=== PATIENT | male | born 1940 | race Caucasian/White ===

== ENCOUNTER → 2016-10-12 | Day surgery (SDC) | payer BC ==
[2016-10-07 14:03] VITALS: Ht 182.9 cm; Wt 60.9 kg
[~2016-10-12] VITALS: Ht 182.9 cm; Wt 60.9 kg
[~2016-10-12] MED LIST: 500ML BSS 0.3ML EPI 1:1000PF IRRIG ONE; ACETAMINOPHEN 325 MG TAB PO PRN; AMLO-110 PO; AMVISC PLUS 0.8ML SYRINGE INT OCU ONE; ASPI81TA28 PO; ATEN-173 PO; ATOR-22 PO; ATROPINE SULFATE 0.1 MG/ML 5ML SYR IV PRN; AcetaZOLAMIDE 250 MG TAB PO SCH; BETAXOLOL HCL 0.25% OP SUSP PER DROP CHARGE OPL SCH; BRIMONIDINE TART 0.2% OP SOLN PER DROP CHARGE ONE; BSS FLUSH ONE; CHOL100010 PO; CYAN100020 PO; ENDOCOAT 0.85ML SYRINGE INT OCU ONE; EpHEDrine SULFATE INJ 50 MG/ML AMP IV PRN; EpINEphrine INJ 1MG/ML AMP 1 MG/ML AMP ONE; FENTANYL CITRATE INJ 50 MCG/1 ML 2 ML VIAL IV PRN; FLUMAZENIL 0.1 MG/1 ML 10 ML VIAL IV PRN; GABA-113 PO; GARL10007 PO; HYDR-4079 PO; HYDROmorphone INJ 2 MG/ML SYR/VIAL IV PRN; KRIL1000 PO; LABETALOL HCL IV 5 MG/ML 20ML IV PRN; LACTATED RINGER'S 1000ML 500 ML IV SCH; LIDOCAINE 4% OP SOLN DROP CHARGE ONE; LIDOCAINE 4% OP SOLN DROP CHARGE OPL SCH; LIDOCAINE HCL 1% MPF 2 ML VIAL ONE; MEPERIDINE HCL 25 MG/ML CARP IV PRN; MIDAZOLAM HCL 1 MG/ML 2ML VIAL ONE; MIX: 4ML BSS 1ML EPI 1:1000 PF INSTIL ONE; MOXIFLOXACIN OPH SOLN PER DROP CHARGE ONE; NALOXONE HCL 0.4 MG/1 ML VIAL/CARP IV PRN; NURSING VERBAL MED ORDER ONE; OCUCOAT 1 ML SOLN IO ONE; OMEP40CA PO; ONDANSETRON INJ 2 MG/ML 2 ML VIAL IV PRN; OXYC-106 PO; PHENYLEPHRINE 100MCG/ML 5ML SYR IV PRN; POVIDONE-IODINE OP SOLN 30 ML BTL ONE; PRDFOPS/10 OPL; PROPARACAINE 0.5% OP SOLN PER DROP CHARGE OPL SCH; SIMV40TA2 PO; TOBRAMYCIN/DEXAMETHASONE OPH OINT PER APPLN CHARGE ONE
--- NOTE | 2016-10-12 08:21 | History & Physical Bridge - [place] ---
H&P Re-Evaluation Bridge Note: I have examined the patient, reviewed the History & Physical and in the interval since the performance of the History & Physical I have noted the following changes of clinical significance: No changes noted
[2016-10-12] MEDS: PHENYLEPHRINE HCL 2.5% OP SOLN PER DROP CHARGE OPL SCH ×2 (09:25→09:30)
[2016-10-12] MEDS: TROPICAMIDE 1% OP SOLN PER DROP CHARGE OPL SCH ×2 (09:26→09:31)
[2016-10-12] MEDS: CYCLOPENTOLATE HCL 1% OP SOLN PER DROP CHARGE OPL SCH ×2 (09:27→09:32)
[2016-10-12] MEDS: MOXIFLOXACIN OPH SOLN PER DROP CHARGE OPL SCH ×2 (09:28→09:38)
--- NOTE | 2016-10-12 10:46 | Discharge Instructions-SurgCtr ---
Discharge Instructions Visit Reason for Visit: Cataract Left Eye Discharge Discharge Diagnosis / Problem: Lens Implant Left Eye Discharge Goals Goal(s): Improve function Activity Recommendations Activity Limitations: resume your previous activity Lifting Limitations: no more than 10 pounds Exercise/Sports Limitations: gradually increase as tolerated May Resume Sexual Activity: when tolerated Shower/Bathe: tomorrow Driving or Machine Use: resume 1 day after discharge Anesthesia . Post Anesthesia Instructions: If you have had General Anesthesia or IV Sedation: * Do not drive today. * Resume driving when surgeon permits. * Do not make important decisions or sign legal documents today. * Call surgeon for: 1. Temperature elevations greater than 101 degrees F. 2. Uncontrollable pain. 3. Excessive bleeding. 4. Persistent nausea and vomiting. 5. Medication intolerance (nausea, vomiting or rash). * For nausea and vomiting use only clear liquids such as: tea, soda, bouillon until nausea subsides, then gradually increase diet as tolerated. * If you have any concerns or questions, call your surgeon's office. If physician is unavailable and it is an emergency, call 911 or go to the nearest emergency room. . Instructions / Follow-Up Instructions / Follow-Up ACTIVITY RECOMMENDATIONS: * Light activities. * Mild irritation and blurred vision are common for the first few days. * You may walk outside, read, watch television. * Redness around the white part of the eye is common. MEDICATIONS: Resume previous medications unless instructed otherwise by your surgeon. * Take white Diamox (Acetazolamide) tablet at 1 pm today. Start all eye drops at 1 pm today: * Eye drops (today and tomorrow): Prednisone - one drop in operative eye every 3 hours while awake Ofloxacin - one drop in operative eye every 3 hours while awake SPECIAL CARE INSTRUCTIONS: * Tape plastic shield over eye to sleep at night. Call your doctor at with any concerns or problems. FOLLOW UP VISIT: Follow-up with Dr Bennett at [place] office as scheduled. Diet Recommendations Home Diet: no limitations Pending Studies Studies pending at discharge: no Medical Emergencies . Who to Call and When: Medical Emergencies: If at any time you feel your situation is an emergency, please call 911 immediately. . Non-Emergent Contact Non-Emergency issues call your: Conflict Resolution Professional Call Non-Emergent contact if: your pain is not controlled [phone] . . "Provider Documentation" section prepared by Antonio Bennett.
--- NOTE | 2016-10-12 10:48 | [facility] Operative Report ---
Operative Report 1. PREOPERATIVE DIAGNOSIS: Senile nuclear cataract, left eye. 2. POSTOPERATIVE DIAGNOSIS: Senile nuclear cataract, left eye. 3. PROCEDURE: Phacoemulsification of left cataract with posterior chamber lens implant, type Bausch [employer] Lomb, model [id number] Restor, power +20.5 diopters. ANESTHESIA: Local standby. SURGEON: Dr. Bennett. COMPLICATIONS: None. OPERATING TIME: 10 minutes. 4. OPERATION AND FINDINGS: DESCRIPTION OF PROCEDURE: The left pupil was dilated. The anesthetic was administered using a topical technique. The left eye was prepped and draped. A speculum was placed. A clear corneal incision was formed. The chamber was filled with Amvisc Plus and Endocoat. Epinephrine solution was used. A paracentesis was placed. A capsulorrhexis was performed. The nucleus was hydrodissected. The lens was removed with phacoemulsification. Time was 4.17 seconds. The aspiration unit was used to remove the cortex. The capsule was filled with Amvisc Plus. The lens implant was folded and placed into the capsule. The incision was hydrated. The Amvisc was aspirated. The wound was secure. The chamber was deep. The pupil was round. TobraDex ointment and Vigamox solution were placed. The speculum was removed. The patient was returned to the Recovery Room in stable condition. I attest to the content of the Intraoperative Record and any orders documented therein. Any exceptions are noted below. The scribe's documentation has been prepared in my presence, under my direction and personally reviewed by me in its entirety. I confirm that the note above accurately reflects all work, treatment, procedures, and medical decision making performed by me. I personally scribed for Antonio Bennett M.D. ([email or web address]) on 10/12/16 at 10:48. Electronically submitted by Mariya Chavez ([email or web address]).
[2016-10-12 10:52] VITALS: TEMP 36.8
--- NOTE | 2016-10-12 11:08 | Anesthesia Progress Nt - [facility] ---
Anesthesia Post Op Note Date & Time Oct 12, 2016 at 11:07 Vital Signs Vital Signs Past 12 Hours Date Time Temp Pulse Resp B/P Pulse Ox O2 Delivery O2 Flow Rate FiO2 10/12/16 10:52 36.8 61 16 156/82 99 Room Air 10/12/16 09:18 36.5 58 20 128/67 96 Room Air Notes Mental Status: alert / awake / arousable, participated in evaluation Pt Amnestic to Procedure: Yes Nausea / Vomiting: adequately controlled Pain: adequately controlled Airway Patency, RR, SpO2: stable & adequate BP & HR: stable & adequate Hydration State: stable & adequate Anesthetic Complications: no major complications apparent
[2016-10-12 11:21] VITALS: BP 114/65; PULSE 56; O2SAT 95
== END | disposition home or self-care (01) ==
LOC: X.SURG 08:55
PROVIDERS: ATTEND Specialist
DX: H25.12 Age-related nuclear cataract, left eye (principal); J44.9 Chronic obstructive pulmonary disease, unspecified; I25.10 Atherosclerotic heart disease of native coronary artery without angina pectoris; I10 Essential (primary) hypertension

== ENCOUNTER → 2016-11-14 | Outpatient (CLI) | payer BC ==
[~2016-11-14] MED LIST changes: -500ML BSS 0.3ML EPI 1:1000PF IRRIG ONE; -ACETAMINOPHEN 325 MG TAB PO PRN; -AMVISC PLUS 0.8ML SYRINGE INT OCU ONE; -ATROPINE SULFATE 0.1 MG/ML 5ML SYR IV PRN; -AcetaZOLAMIDE 250 MG TAB PO SCH; -BETAXOLOL HCL 0.25% OP SUSP PER DROP CHARGE OPL SCH; -BRIMONIDINE TART 0.2% OP SOLN PER DROP CHARGE ONE; -BSS FLUSH ONE; -ENDOCOAT 0.85ML SYRINGE INT OCU ONE; -EpHEDrine SULFATE INJ 50 MG/ML AMP IV PRN; -EpINEphrine INJ 1MG/ML AMP 1 MG/ML AMP ONE; -FENTANYL CITRATE INJ 50 MCG/1 ML 2 ML VIAL IV PRN; -FLUMAZENIL 0.1 MG/1 ML 10 ML VIAL IV PRN; -HYDROmorphone INJ 2 MG/ML SYR/VIAL IV PRN; -LABETALOL HCL IV 5 MG/ML 20ML IV PRN; -LACTATED RINGER'S 1000ML 500 ML IV SCH; -LIDOCAINE 4% OP SOLN DROP CHARGE ONE; -LIDOCAINE 4% OP SOLN DROP CHARGE OPL SCH; -LIDOCAINE HCL 1% MPF 2 ML VIAL ONE; -MEPERIDINE HCL 25 MG/ML CARP IV PRN; -MIDAZOLAM HCL 1 MG/ML 2ML VIAL ONE; -MIX: 4ML BSS 1ML EPI 1:1000 PF INSTIL ONE; -MOXIFLOXACIN OPH SOLN PER DROP CHARGE ONE; -NALOXONE HCL 0.4 MG/1 ML VIAL/CARP IV PRN; -NURSING VERBAL MED ORDER ONE; -OCUCOAT 1 ML SOLN IO ONE; -ONDANSETRON INJ 2 MG/ML 2 ML VIAL IV PRN; -PHENYLEPHRINE 100MCG/ML 5ML SYR IV PRN; -POVIDONE-IODINE OP SOLN 30 ML BTL ONE; -PROPARACAINE 0.5% OP SOLN PER DROP CHARGE OPL SCH; -TOBRAMYCIN/DEXAMETHASONE OPH OINT PER APPLN CHARGE ONE
--- NOTE | 2016-11-14 10:25 | DIAGNOSTIC IMAGING REPORT ---
RENAL ULTRASOUND HISTORY: ANEMIA COMPARISON: None. FINDINGS: Right kidney: 11.4 cm no evidence for hydronephrosis Left kidney: 10.4 cm no evidence for hydronephrosis Bladder: No bladder wall thickening. The bilateral ureteral jets were identified. IMPRESSION: Normal renal ultrasound. Electronically signed by: Mike Dove M.D. 11/14/2016 10:23 AM Dictated Date/Time: 11/14/2016 10:16 AM
== END | disposition home or self-care (01) ==
LOC: C.ULTR 09:36
PROVIDERS: ATTEND Internal Medicine Hematology & Oncology
DX: D64.9 Anemia, unspecified (principal)

== ENCOUNTER → 2017-03-13 | Outpatient (CLI) | payer BC ==
[2017-03-13 12:27] LABS: BLOOD UREA NITROGEN 24 mg/dl (7-18); BUN/CREATININE RATIO 16.9 (10-20); CARBON DIOXIDE 25 mmol/L (21-32); CHLORIDE 107 mmol/L (98-107); GLUCOSE 102 mg/dl (70-99); POTASSIUM 4.2 mmol/L (3.5-5.1); SODIUM 140 mmol/L (136-145)
[2017-03-13 12:36] LABS: CALCIUM 9.1 mg/dl (8.5-10.1)
== END | disposition home or self-care (01) ==
LOC: C.LABBFT 09:33
PROVIDERS: ATTEND Internal Medicine Geriatric Medicine
DX: N18.9 Chronic kidney disease, unspecified (principal)

== ENCOUNTER → 2017-06-14 | Day surgery (SDC) | payer BC ==
[2017-06-13 08:32] VITALS: Ht 182.9 cm; Wt 60.9 kg
[~2017-06-14] VITALS: Ht 182.9 cm; Wt 60.9 kg
[~2017-06-14] MED LIST changes: +500ML BSS 0.3ML EPI 1:1000PF IRRIG ONE; +ACETAMINOPHEN 325 MG TAB PO PRN; +AMVISC PLUS 0.8ML SYRINGE INT OCU ONE; +ATROPINE SULFATE 0.1 MG/ML 5ML SYR IV PRN; +AcetaZOLAMIDE 250 MG TAB PO SCH; +BETAXOLOL HCL 0.25% OP SUSP PER DROP CHARGE OPR SCH; +BRIMONIDINE TART 0.2% OP SOLN PER DROP CHARGE ONE; +BSS FLUSH ONE; +ENDOCOAT 0.85ML SYRINGE INT OCU ONE; +EpHEDrine SULFATE INJ 50 MG/ML AMP IV PRN; +EpINEphrine INJ 1MG/ML AMP 1 MG/ML AMP ONE; +FENTANYL CITRATE INJ 50 MCG/1 ML 2 ML VIAL IV PRN; +FLUMAZENIL 0.1 MG/1 ML 10 ML VIAL IV PRN; +HYDROmorphone INJ 2 MG/ML SYR/VIAL IV PRN; +LABETALOL HCL IV 5 MG/ML 20ML IV PRN; +LACTATED RINGER'S 1000ML 500 ML IV SCH; +LIDOCAINE 4% OP SOLN DROP CHARGE ONE; +LIDOCAINE 4% OP SOLN DROP CHARGE OPR SCH; +LIDOCAINE HCL 1% MPF 2 ML VIAL ONE; +MEPERIDINE HCL 25 MG/ML CARP IV PRN; +MIDAZOLAM HCL 1 MG/ML 2ML VIAL ONE; +MIX: 4ML BSS 1ML EPI 1:1000 PF INSTIL ONE; +MOXIFLOXACIN OPH SOLN PER DROP CHARGE ONE; +NALOXONE HCL 0.4 MG/1 ML VIAL/CARP IV PRN; +OCUCOAT 1 ML SOLN IO ONE; +ONDANSETRON INJ 2 MG/ML 2 ML VIAL IV PRN; -OXYC-106 PO; +PHENYLEPHRINE 100MCG/ML 5ML SYR IV PRN; +POVIDONE-IODINE OP SOLN 30 ML BTL ONE; -PRDFOPS/10 OPL; +PROPARACAINE 0.5% OP SOLN PER DROP CHARGE OPR SCH; -SIMV40TA2 PO; +TOBRAMYCIN/DEXAMETHASONE OPH OINT PER APPLN CHARGE ONE
[2017-06-14] MEDS: PHENYLEPHRINE HCL 2.5% OP SOLN PER DROP CHARGE OPR SCH ×2 (06:36→06:41)
[2017-06-14] MEDS: TROPICAMIDE 1% OP SOLN PER DROP CHARGE OPR SCH ×2 (06:37→06:42)
[2017-06-14] MEDS: CYCLOPENTOLATE HCL 1% OP SOLN PER DROP CHARGE OPR SCH ×2 (06:38→06:43)
[2017-06-14] MEDS: MOXIFLOXACIN OPH SOLN PER DROP CHARGE OPR SCH ×2 (06:39→06:48)
--- NOTE | 2017-06-14 07:14 | Discharge Instructions-SurgCtr ---
Discharge Instructions Date of Service Jun 14, 2017. Visit Reason for Visit: Cataract Right Eye Discharge Discharge Diagnosis / Problem: lens implant right eye Discharge Goals Goal(s): Improve function Activity Recommendations Activity Limitations: resume your previous activity Lifting Limitations: no more than 10 pounds Exercise/Sports Limitations: gradually increase as tolerated May Resume Sexual Activity: when tolerated Shower/Bathe: tomorrow Driving or Machine Use: resume 1 day after discharge Anesthesia . Post Anesthesia Instructions: If you have had General Anesthesia or IV Sedation: * Do not drive today. * Resume driving when surgeon permits. * Do not make important decisions or sign legal documents today. * Call surgeon for: 1. Temperature elevations greater than 101 degrees F. 2. Uncontrollable pain. 3. Excessive bleeding. 4. Persistent nausea and vomiting. 5. Medication intolerance (nausea, vomiting or rash). * For nausea and vomiting use only clear liquids such as: tea, soda, bouillon until nausea subsides, then gradually increase diet as tolerated. * If you have any concerns or questions, call your surgeon's office. If physician is unavailable and it is an emergency, call 911 or go to the nearest emergency room. . Instructions / Follow-Up Instructions / Follow-Up ACTIVITY RECOMMENDATIONS: * Light activities. * Mild irritation and blurred vision are common for the first few days. * You may walk outside, read, watch television. * Redness around the white part of the eye is common. MEDICATIONS: Resume previous medications unless instructed otherwise by your surgeon. * Take white Diamox (Acetazolamide) tablet at 1 pm today. Start all eye drops at 1 pm today: * Eye drops (today and tomorrow): Durezol - one drop in operative eye every 3 hours while awake Tobramycin - one drop in operative eye every 3 hours while awake SPECIAL CARE INSTRUCTIONS: * Tape plastic shield over eye to sleep at night. Call your doctor at with any concerns or problems. FOLLOW UP VISIT: Follow-up with Dr Bennett at [place] office as scheduled. Diet Recommendations Home Diet: no limitations Procedures Procedures Performed: cataract extraction with lens implant Pending Studies Studies pending at discharge: no Medical Emergencies . Who to Call and When: Medical Emergencies: If at any time you feel your situation is an emergency, please call 911 immediately. . Non-Emergent Contact Non-Emergency issues call your: Home Care Aide Call Non-Emergent contact if: your pain is not controlled [phone] . . "Provider Documentation" section prepared by Antonio Bennett. .
--- NOTE | 2017-06-14 07:16 | [facility] Operative Report ---
Operative Report Date of Service Jun 14, 2017. Operative Report 1. PREOPERATIVE DIAGNOSIS: Senile nuclear cataract, right eye. 2. POSTOPERATIVE DIAGNOSIS: Senile nuclear cataract, right eye. 3. PROCEDURE: Phacoemulsification of right cataract with posterior chamber lens implant, type Bausch & Lomb, model [id number], power +20.5 diopters. ANESTHESIA: Local standby. SURGEON: Dr. Bennett. COMPLICATIONS: None. OPERATING TIME: 10 minutes. 4. OPERATION AND FINDINGS: DESCRIPTION OF PROCEDURE: The right pupil was dilated. The anesthetic was administered using a topical technique. The right eye was prepped and draped. A speculum was placed. A clear corneal incision was formed. The chamber was filled with Amvisc Plus and Endocoat. Epinephrine solution was used. A paracentesis was placed. A capsulorrhexis was performed. The nucleus was hydrodissected. The lens was removed with phacoemulsification. Time was 4.08 seconds. The aspiration unit was used to remove the cortex. The capsule was filled with Amvisc Plus. The lens implant was folded and placed into the capsule. The incision was hydrated. The Amvisc was aspirated. The wound was secure. The chamber was deep. The pupil was round. Brimonidine, TobraDex ointment and Vigamox solution were placed. The speculum was removed. The patient was returned to the Recovery Room in stable condition. I attest to the content of the Intraoperative Record and any orders documented therein. Any exceptions are noted below. The scribe's documentation has been prepared in my presence, under my direction and personally reviewed by me in its entirety. I confirm that the note above accurately reflects all work, treatment, procedures, and medical decision making performed by me. I personally scribed for Antonio Bennett M.D. (BRENDAN) on 06/14/17 at 07:16. Electronically submitted by Mariya Chavez ([email or web address]).
[2017-06-14 07:18] VITALS: TEMP 36.5
[2017-06-14 07:39] VITALS: BP 150/83; PULSE 70; O2SAT 98
--- NOTE | 2017-06-14 07:49 | Anesthesia Progress Nt - [facility] ---
Anesthesia Post Op Note Date & Time Jun 14, 2017 at 07:49 Vital Signs Pain Intensity: 0 Vital Signs Past 12 Hours Date Time Temp Pulse Resp B/P (MAP) Pulse Ox O2 Delivery O2 Flow Rate FiO2 06/14/17 07:39 70 16 150/83 (105) 98 Room Air 06/14/17 07:18 36.5 69 16 151/74 (99) 95 Room Air 06/14/17 06:30 36.4 73 18 153/83 (106) 95 Room Air Notes Mental Status: alert / awake / arousable, participated in evaluation Pt Amnestic to Procedure: Yes Nausea / Vomiting: adequately controlled Pain: adequately controlled Airway Patency, RR, SpO2: stable & adequate BP & HR: stable & adequate Hydration State: stable & adequate Anesthetic Complications: no major complications apparent
== END | disposition home or self-care (01) ==
LOC: X.SURG 06:18
PROVIDERS: ATTEND Specialist
DX: H25.11 Age-related nuclear cataract, right eye (principal); I10 Essential (primary) hypertension; I51.9 Heart disease, unspecified; J44.9 Chronic obstructive pulmonary disease, unspecified; M19.90 Unspecified osteoarthritis, unspecified site

== ENCOUNTER → 2017-09-28 | Outpatient (CLI) | payer BC ==
[~2017-09-28] MED LIST changes: -500ML BSS 0.3ML EPI 1:1000PF IRRIG ONE; -ACETAMINOPHEN 325 MG TAB PO PRN; -AMVISC PLUS 0.8ML SYRINGE INT OCU ONE; -ATROPINE SULFATE 0.1 MG/ML 5ML SYR IV PRN; -AcetaZOLAMIDE 250 MG TAB PO SCH; -BETAXOLOL HCL 0.25% OP SUSP PER DROP CHARGE OPR SCH; -BRIMONIDINE TART 0.2% OP SOLN PER DROP CHARGE ONE; -BSS FLUSH ONE; -ENDOCOAT 0.85ML SYRINGE INT OCU ONE; -EpHEDrine SULFATE INJ 50 MG/ML AMP IV PRN; -EpINEphrine INJ 1MG/ML AMP 1 MG/ML AMP ONE; -FENTANYL CITRATE INJ 50 MCG/1 ML 2 ML VIAL IV PRN; -FLUMAZENIL 0.1 MG/1 ML 10 ML VIAL IV PRN; -HYDROmorphone INJ 2 MG/ML SYR/VIAL IV PRN; -LABETALOL HCL IV 5 MG/ML 20ML IV PRN; -LACTATED RINGER'S 1000ML 500 ML IV SCH; -LIDOCAINE 4% OP SOLN DROP CHARGE ONE; -LIDOCAINE 4% OP SOLN DROP CHARGE OPR SCH; -LIDOCAINE HCL 1% MPF 2 ML VIAL ONE; -MEPERIDINE HCL 25 MG/ML CARP IV PRN; -MIDAZOLAM HCL 1 MG/ML 2ML VIAL ONE; -MIX: 4ML BSS 1ML EPI 1:1000 PF INSTIL ONE; -MOXIFLOXACIN OPH SOLN PER DROP CHARGE ONE; -NALOXONE HCL 0.4 MG/1 ML VIAL/CARP IV PRN; -OCUCOAT 1 ML SOLN IO ONE; -ONDANSETRON INJ 2 MG/ML 2 ML VIAL IV PRN; -PHENYLEPHRINE 100MCG/ML 5ML SYR IV PRN; -POVIDONE-IODINE OP SOLN 30 ML BTL ONE; -PROPARACAINE 0.5% OP SOLN PER DROP CHARGE OPR SCH; -TOBRAMYCIN/DEXAMETHASONE OPH OINT PER APPLN CHARGE ONE
--- NOTE | 2017-09-28 11:16 | DIAGNOSTIC IMAGING REPORT ---
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 Proximally it has a maximum dimension of 3.3 cm. Its mid aspect there has a maximum dimension of 3.8 cm and distally 4.8 cm. All measurements are somewhat progressive compared to the prior study. The aneurysm is partially thrombus filled. Right iliac measures 1.8 cm maximum dimension. The left iliac currently appears occluded. The aneurysm produces described is stable/minimally increased in diameter at 2.9 cm although again is currently occluded. IMPRESSION: 1. Mildly progressive distention of the abdominal aorta with dimensions as described. 2. Maximum transaxial diameter is 4.8 cm distally increase in the prior exam of 3.8 cm. 3. 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 The above report was generated using voice recognition software. It may contain grammatical, syntax or spelling errors. Electronically signed by: Mike Dove M.D. 09/28/2017 11:14 AM Dictated Date/Time: 09/28/2017 11:11 AM
[2017-09-28 12:03] LABS: BASO % 0.3 %; BASO ABS # 0.03 K/uL (0-0.2); COMPLETE YES; EOS % 3.8 %; HEMATOCRIT 34.5 % (42-52); IG% 0.3 %; LYMPH % 33.5 %; LYMPH ABS # 3.78 K/uL (1.2-3.4); MEAN CELL VOLUME 96.4 fL (80-100); MEAN CORPUSCULAR HEMOGLOBIN 32.4 pg (25-34); MEAN CORPUSCULAR HGB CONC 33.6 g/dl (32-36); MEAN PLATELET VOLUME 9.5 fL (7.4-10.4); MONO % 5.6 %; NEUT % 56.5 %; PLATELET COUNT 449 K/uL (130-400); RED BLOOD COUNT 3.58 M/uL (4.7-6.1); WHITE BLOOD COUNT 11.29 K/uL (4.8-10.8)
[2017-09-28 12:13] LABS: ALT/SGPT 13 U/L (12-78); BLOOD UREA NITROGEN 25 mg/dl (7-18); BUN/CREATININE RATIO 15.5 (10-20); CALCIUM 9.5 mg/dl (8.5-10.1); CARBON DIOXIDE 22 mmol/L (21-32); CHLORIDE 107 mmol/L (98-107); CHOLESTEROL 199 mg/dl (0-200); CREATININE 1.63 mg/dl (0.60-1.40); ESTIMATED AVERAGE GLUCOSE 111 mg/dl; GLUCOSE 132 mg/dl (70-99); HA1C FLAG Normal (Normal); POTASSIUM 4.5 mmol/L (3.5-5.1); SODIUM 138 mmol/L (136-145)
[2017-09-28 12:24] LABS: ALB/GLOB RATIO 0.9 (0.9-2); ALKALINE PHOSPHATASE 71 U/L (45-117); AST/SGOT 12 U/L (15-37); CHOLESTEROL/HDL RATIO 5.2; HDL CHOLESTEROL 38 mg/dl; LDL CHOLESTEROL CALCULATED 119 mg/dl; TRIGLYCERIDES 208 mg/dl (0-150); VERY LOW DENSITY LIPOPROT CALC 42 mg/dl
--- NOTE | 2017-10-04 10:43 | CODING QUERY MEDICAL NECESSITY ---
SUPPORTING DIAGNOSIS NEEDED A supporting diagnosis is required for the test/procedure performed on this patient in order for us to be reimbursed by the patient's insurance. Please provide a supporting diagnosis for the following test/procedure listed below next to the test name along with your signature. *If there is no additional diagnosis for this patient that would support the following test/procedure please document that below next to the test/procedure. Test(s)/Procedure(s) that require a supporting diagnosis: * PSA DIAGNOSIS: * VIAMIN B12 DIAGNOSIS: Provider Signature: Date: Thank you Shahrzad Farrell [facility] [employer] [facility] Once completed, please kindly fax back to [phone] For questions please call [phone]
== END | disposition home or self-care (01) ==
LOC: C.ULTR 10:03
PROVIDERS: ATTEND Internal Medicine Geriatric Medicine
DX: I71.4 Abdominal aortic aneurysm, without rupture (principal); I72.3 Aneurysm of iliac artery; E78.5 Hyperlipidemia, unspecified; R73.9 Hyperglycemia, unspecified; M19.90 Unspecified osteoarthritis, unspecified site; D64.9 Anemia, unspecified; N18.9 Chronic kidney disease, unspecified; I12.9 Hypertensive chronic kidney disease with stage 1 through stage 4 chronic kidney disease, or unspecified chronic kidney disease; R63.4 Abnormal weight loss; E55.9 Vitamin D deficiency, unspecified

== ENCOUNTER 2019-03-04 00:29 | Inpatient (IN) ==
[2019-03-04 00:58] LABS: Hematocrit (blood only) 24.9 % (42-52); Hemoglobin 8.2 g/dL (14.0-18.0); Mean Corpuscular Hgb Conc 32.9 g/dL (32-36); Mean Corpuscular Volume 94.3 fL (80-100); Mean Platelet Volume 8.8 fL (7.4-10.4); Nucleated RBC # (auto) 0.03 K/uL (0-0); Nucleated RBC % (auto) 0.1 %; Platelet Count 505 K/uL (130-400); RDW Coefficient of Variation 14.6 % (11.5-14.5); RDW Standard Deviation 50.3 fL (36.4-46.3); Red Blood Count 2.64 M/uL (4.7-6.1); White Blood Count 25.13 K/uL (4.8-10.8)
[2019-03-04 01:00] LABS: Base Excess VBG -10.6 mEq/L; HCO3 VBG 18 mmol/L; Oxygen Saturation VBG < 60.0 %; PCO2 VBG 52 mmHg (38-50); PO2 VBG 28 mmHg; pH VBG 7.16 (7.36-7.41)
[2019-03-04] MEDS ORDERED: PIPERACILL/TAZOBAC CONSULT ACTIVE PRN (01:01)
[2019-03-04] MEDS ORDERED: PIPERACILLIN/TAZOBACTAM 4.5 GM/120 ML BAG IV ONE (01:01)
[2019-03-04] MEDS ORDERED: ALBUT/IPRATROP 3MG/0.5MG NEB 3 ML VIAL NEB STA (01:04)
[2019-03-04] MEDS ORDERED: SODIUM CHLORIDE 0.9% 1000ML 1,000 ML IV ONE ×2 (01:04)
[2019-03-04 01:07] LABS: Prothrombin Time 10.6 Seconds (9.0-12.0)
[2019-03-04 01:19] LABS: Basophils # (auto) 0.02 K/uL (0-0.2); Basophils % (auto) 0.1 %; Eosinophils # (auto) 0.06 K/uL (0-0.5); Eosinophils % (auto) 0.2 %; Immature Granulocytes # (auto) 0.12 K/uL (0.00-0.02); Immature Granulocytes % (auto) 0.5 %; Lymphocytes # (auto) 0.81 K/uL (1.2-3.4); Lymphocytes % (auto) 3.2 %; Monocytes # (auto) 1.01 K/uL (0.11-0.59); Neutrophils # (auto) 23.11 K/uL (1.4-6.5); Toxic Vacuolation 1+
[2019-03-04 01:31] LABS: Alanine Aminotransferase 15 U/L (12-78); Albumin Level 2.4 gm/dl (3.4-5.0); Aspartate Aminotransferase 51 U/L (15-37); BUN Creatinine Ratio 17.3 (10-20); Bilirubin Direct < 0.1 mg/dl (0-0.2); Blood Urea Nitrogen 73 mg/dl (7-18); Calcium 9.1 mg/dl (8.5-10.1); Carbon Dioxide 19 mmol/L (21-32); Chloride 103 mmol/L (98-107); Creatinine Clr Calc Pharmacy 12.5 ml/min; Est GFR (African American) 14.8; Est GFR (Non-African American) 12.8; Glucose 107 mg/dl (70-99); Magnesium 1.5 mg/dl (1.8-2.4); Potassium 5.6 mmol/L (3.5-5.1); Sodium 133 mmol/L (136-145)
[2019-03-04] MEDS ORDERED: DEXTROSE 50% 50 ML SYRINGE IV STA (01:34)
[2019-03-04] MEDS ORDERED: INSULIN HUMAN REGULAR IV STA (01:34)
[2019-03-04] MEDS ORDERED: SODIUM BICARB 8.4% INJ 50 MEQ/50 ML SYR IV STA (01:34)
[2019-03-04 01:37] LABS: Alkaline Phosphatase 100 U/L (45-117); Bilirubin,Total 0.3 mg/dl (0.2-1); Total Protein 7.6 gm/dl (6.4-8.2); Troponin I < 0.015 ng/ml (0-0.045)
[2019-03-04] MEDS ORDERED: NovoLIN-R INSULIN PER UNIT CHARGE ONE (01:38)
[2019-03-04] MEDS ORDERED: MoRPHine SULFATE 4 MG/ML 1 ML CARP\\VIAL IV STA (03:29)
[2019-03-04] MEDS ORDERED: MAGNESIUM SULFATE / D5W 1 GM/100 ML BAG IV ONE ×2 (04:06→08:45)
[2019-03-04] MEDS ORDERED: SODIUM CHLORIDE 0.9% 1000ML 1,000 ML IV SCH ×2 (04:15→06:30)
[2019-03-04 04:36] LABS: Allen Test Pos (Pos); HCO3 ABG 18 mmol/L (19-24); Oxygen Saturation ABG 92.1 % (90-95); PCO2 ABG 50 mmHg (35-46); PO2 ABG 94 mm/Hg (80-95)
[2019-03-04 04:44] LABS: pH ABG 7.18 (7.35-7.45)
[2019-03-04 04:52] LABS: BUN Creatinine Ratio 18.1 (10-20); Calcium 8.4 mg/dl (8.5-10.1); Creatinine Clr Calc Pharmacy 13.9 ml/min; Est GFR (African American) 16.8; Est GFR (Non-African American) 14.5; Potassium 5.1 mmol/L (3.5-5.1)
[2019-03-04] MEDS ORDERED: VANCOMYCIN CONSULT ACTIVE PRN (05:01)
[2019-03-04] MEDS ORDERED: VANCOMYCIN HCL 1,000 MG in SODIUM CHLORIDE 0.9% 500 ML IV SCH (05:15)
--- NOTE | 2019-03-04 05:57 | History & Physical Report ---
Date of Service March 04, 2019 Assessment & Plan (1) Acute respiratory failure with hypoxia and hypercapnia: Acute respiratory failure with hypoxia and hypercapnia/pneumonia/combined respiratory and metabolic acidosis- Admit to the intensive care unit. NPO Received vancomycin IV and Zosyn IV while in ED. Admit on vancomycin IV and aztreonam IV. Patient not able to tolerate BiPAP. We will change to high flow oxygen. Placed on bicarb drip with 3 A in sterile water 200 mL's per hour. Serial CBC with differential, chemistry profile, magnesium level, ABGs. Consult filament shaper service. Present on Admission?: Yes (2) Pneumonia: See above Present on Admission?: Yes (3) Acute kidney injury: Patient not had anything significant eat or drink over the past 3 days. He did receive a total 2 L normal saline in the ED. We will continue rehydration with normal saline and bicarb drip as noted above. Present on Admission?: Yes (4) CAD (coronary artery disease): CAD/hypertension- Meds will be held due to n.p.o. state. Well-appearing IV Lopressor. Present on Admission?: Yes (5) Hypertension: See above. Present on Admission?: Yes (6) Multiple rib fractures: Pain control with morphine 2 mg IV every 3 hours as needed, pain close attention to blood pressure. Present on Admission?: Yes (7) Sepsis: Treatment for pneumonia as noted above. Present on Admission?: Yes (8) Hyperlipidemia LDL goal <70: Holding atorvastatin Present on Admission?: Yes (9) Vitamin B12 deficiency: Holding B12 supplement Present on Admission?: Yes (10) Anxiety: Concern regarding sedation with his present respiratory state. Present on Admission?: Yes (11) GERD (gastroesophageal reflux disease): Placed on famotidine 20mg IV every 12 hours Present on Admission?: Yes (12) Altered mental state: Secondary to sepsis Present on Admission?: Yes (13) Admitted to intensive care unit: Admitted as noted above. Present on Admission?: Yes History of Present Illness Chief Complaint: The patient presents to the emergency department with altered mental state, progressive weakness, decreased oral intake over the past 3 days to both liquids and solids. Primary Care Provider: Юлия Harvey MD The patient is a 78-year-old male initially seen in the emergency department on 02/25/2019, at which time he was diagnosed with nondisplaced fractures of the right sixth, seventh and eighth ribs without evidence of pneumothorax. He was noted to have some mild atelectasis or bronchiectasis of the medial aspect of the right middle lobe at that time as well. He was advised to state at that time for admission, however, he left AGAINST MEDICAL ADVICE. Since that time, his lay out worker says that he has had literally no oral intake with liquids or solids, and has had significant issues with breathing, and today became altered and was brought to the emergency department for assessment. In the emergency department, he was found to have acute respiratory failure due to pneumonia, and acute kidney injury due to his decreased oral intake. He was referred for admission, and to be admitted to the ICU. He continues to be a full resuscitation at this time. Allergies Allergy/AdvReac Type Severity Reaction Status Date / Time cefuroxime Allergy Unknown rash Verified 03/04/19 02:19 Home Medications Home Medications Medication Instructions Recorded Confirmed Type amlodipine 5 mg PO BID 02/25/19 03/04/19 History aspirin 81 mg PO QAM 02/25/19 03/04/19 History atorvastatin 40 mg PO QPM 02/25/19 03/04/19 History buspirone 5 mg PO TID PRN 02/25/19 03/04/19 History cholecalciferol (vitamin D3) 1,000 unit PO QAM 02/25/19 03/04/19 History [Vitamin D3] cyanocobalamin (vitamin B-12) 1,000 mcg PO QAM 02/25/19 03/04/19 History [Vitamin B-12] gabapentin 600 mg PO HS 02/25/19 03/04/19 History metoprolol succinate 25 mg PO DAILY 02/25/19 03/04/19 History mirtazapine 45 mg PO HS 02/25/19 03/04/19 History nitroglycerin 0.4 mg SUBLINGUAL DIRECTED PRN 02/25/19 03/04/19 History omeprazole 40 mg PO QAM 02/25/19 03/04/19 History primidone 50 mg PO DAILY 02/25/19 03/04/19 History morphine 15 - 30 mg PO Q4 PRN 03/04/19 03/04/19 History Past Med/Surg History Medical History Multiple rib fractures (Acute) Fall (Acute) CAD (coronary artery disease) (Acute) Chest pain (Acute) Hypertension (Chronic) Surgical History H/O heart artery stent (Acute) Family History Other No significant family history Social History Preferred Language: Hebrew Feels Safe at Home: Yes Smoking Status: Current some day smoker Review of Systems Review of Systems: Review of systems is limited due to patient inability to respond. Physical Exam Physical Exam: The patient has just received morphine, and is sedated. He looks cachectic, lying in bed and in no acute distress. HEENT--PERRL, EOMI, mucous membranes and oropharynx dry. Neck--supple. No JVD. No bruits. Thyroid normal, trachea midline, no adenopathy. Heart--mildly tachycardic. No murmurs, rubs or gallops. Lungs--decreased breath sounds right base to chcf up. Mild respiratory distress with accessory muscle use. Abdomen--normal bowel sounds and soft. Nontender. Nondistended, no hernias or masses, no organomegaly. Extremities--no cyanosis or clubbing. No edema. Dermatologic--scattered ecchymoses Neurologic--cranial nerves II through XII grossly intact Rheumatologic--limited exam due to sedation Psychiatric--limited exam due to sedation Results & Data Vital Signs (Past 12 Hours) Vital Signs Temp Pulse Pulse Resp BP BP Pulse Ox 03/04/19 05:20 104 H 28 H 96 03/04/19 04:00 99 H 11 L 118/59 L 98 03/04/19 03:30 102 H 27 H 108/73 98 03/04/19 03:00 106 H 11 L 124/67 96 03/04/19 02:30 104 H 16 125/67 96 03/04/19 02:22 105 H 18 139/74 95 03/04/19 02:20 107 H 21 139/74 95 03/04/19 02:00 111 H 13 119/62 93 03/04/19 01:30 99 H 15 96 03/04/19 01:22 101 H 21 117/64 95 03/04/19 01:09 102 H 28 H 95 03/04/19 01:01 101 H 17 117/64 91 03/04/19 01:00 102 H 19 86 L 03/04/19 00:40 98.2 F 102 H 24 97/66 L 96 03/04/19 00:39 100 H 12 94 03/04/19 00:33 105 H 17 97/66 L 93 Laboratory Results Laboratory Results WBC 25.13 K/uL (4.8-10.8) H 03/04/19 00:49 RBC 2.64 M/uL (4.7-6.1) L 03/04/19 00:49 Hgb 7.5 g/dL (14.0-18.0) L 03/04/19 04:26 Hct 24.9 % (42-52) L 03/04/19 00:49 MCV 94.3 fL (80-100) 03/04/19 00:49 MCH 31.1 pg (25-34) 03/04/19 00:49 MCHC 32.9 g/dL (32-36) 03/04/19 00:49 RDW Std Deviation 50.3 fL (36.4-46.3) H 03/04/19 00:49 RDW Coeff of Lucas 14.6 % (11.5-14.5) H 03/04/19 00:49 Plt Count 505 K/uL (130-400) H 03/04/19 00:49 MPV 8.8 fL (7.4-10.4) 03/04/19 00:49 Immature Gran % (Auto) 0.5 % 03/04/19 00:49 Neut % (Auto) 92.0 % 03/04/19 00:49 Lymph % (Auto) 3.2 % 03/04/19 00:49 [place] % (Auto) 4.0 % 03/04/19 00:49 Eos % (Auto) 0.2 % 03/04/19 00:49 Baso % (Auto) 0.1 % 03/04/19 00:49 Immature Gran # (Auto) 0.12 K/uL (0.00-0.02) H 03/04/19 00:49 Neut # (Auto) 23.11 K/uL (1.4-6.5) H 03/04/19 00:49 Lymph # (Auto) 0.81 K/uL (1.2-3.4) L 03/04/19 00:49 [place] # (Auto) 1.01 K/uL (0.11-0.59) H 03/04/19 00:49 Eos # (Auto) 0.06 K/uL (0-0.5) 03/04/19 00:49 Baso # (Auto) 0.02 K/uL (0-0.2) 03/04/19 00:49 Absolute Nucleated RBC 0.03 K/uL (0-0) H 03/04/19 00:49 Nucleated RBC % (auto) 0.1 % 03/04/19 00:49 1+ 03/04/19 00:49 PT 10.6 Seconds (9.0-12.0) 03/04/19 00:49 INR 1.0 (0.9-1.1) 03/04/19 00:49 ABG pH 7.18 (7.35-7.45) L* 03/04/19 04:26 ABG pCO2 50 mmHg (35-46) H 03/04/19 04:26 ABG pO2 94 mm/Hg (80-95) 03/04/19 04:26 ABG HCO3 18 mmol/L (19-24) L 03/04/19 04:26 ABG O2 Saturation 92.1 % (90-95) 03/04/19 04:26 ABG Base Excess -10.2 mEq/L (-9-1.8) L 03/04/19 04:26 Pos (Pos) 03/04/19 04:26 VBG pH 7.16 (7.36-7.41) L 03/04/19 00:49 VBG pCO2 52 mmHg (38-50) H 03/04/19 00:49 VBG pO2 28 mmHg 03/04/19 00:49 VBG HCO3 18 mmol/L 03/04/19 00:49 VBG O2 Saturation < 60.0 % 03/04/19 00:49 VBG Base Excess -10.6 mEq/L 03/04/19 00:49 Oxygen Given 4L 03/04/19 04:26 Sodium 136 mmol/L (136-145) 03/04/19 04:25 Potassium 5.1 mmol/L (3.5-5.1) 03/04/19 04:25 Chloride 107 mmol/L (98-107) 03/04/19 04:25 Carbon Dioxide 18 mmol/L (21-32) L 03/04/19 04:25 11.0 (3-11) 03/04/19 04:25 BUN 69 mg/dl (7-18) H 03/04/19 04:25 3.80 mg/dl (0.6-1.4) H D 03/04/19 04:25 Est Cr Clr Drug Dosing 13.9 ml/min 03/04/19 04:25 Est GFR ( Amer) 16.8 03/04/19 04:25 Est GFR (Non-Af Amer) 14.5 03/04/19 04:25 18.1 (10-20) 03/04/19 04:25 Glucose 78 mg/dl (70-99) 03/04/19 04:25 0.5 mmol/L (0.4-2.0) 03/04/19 04:26 Calcium 8.4 mg/dl (8.5-10.1) L 03/04/19 04:25 Magnesium 1.5 mg/dl (1.8-2.4) L 03/04/19 00:49 0.3 mg/dl (0.2-1) 03/04/19 00:49 < 0.1 mg/dl (0-0.2) 03/04/19 00:49 AST 51 U/L (15-37) H 03/04/19 00:49 ALT 15 U/L (12-78) 03/04/19 00:49 100 U/L (45-117) 03/04/19 00:49 < 0.015 ng/ml (0-0.045) 03/04/19 00:49 7.6 gm/dl (6.4-8.2) 03/04/19 00:49 2.4 gm/dl (3.4-5.0) L 03/04/19 00:49 44 U/L (73-393) L 03/04/19 00:49 Diagnostic Findings [facility] [address] Patient: MEDARDO AARON (Male) Age: 78 MR #: [id number] Status: ER Date: 03/04/19 02:17 Slices: [phone] History: PAIN AT RIGHT SIDE OF CHEST Priors: Tech: Eric Haynes @ [phone] Exams: CT CHEST Without Contrast Accession Numbers: [id number] Preliminary Findings Only � See Final Report For Complete Findings CT CHEST Without Contrast: Infiltrates in the right middle and right lower lobes. Minimal infiltrates in the left lung base. Pulmonary emphysema Right rib fractures, 6-8. Radiologist: Jenaro Gregorio M.D. Study ready at 02:23 and initial results transmitted at 02:49 *This report constitutes a preliminary interpretation only. Non-acute findings felt to be unrelated to the clinical presentation may not be discussed in this report. The study will be interpreted and a final report will be generated by the local Radiologist the following shift. To reach the hospital radiology department call [phone]. If a discrepancy is found between the preliminary and final interpretations of this study, please notify us via our Client Portal at [email or web address], under QA Exams. You can also fax this report with a description of the discrepancy, or include the final report, to our daytime fax number [phone]. If faxing, please indicate the severity of discrepancy using one of the following categories: [ ] 1 - Agree/Informational [ ] 2 - Unlikely to Affect Management [ ] 3 - Possible Eventual Change of Management [ ] 4 - Probable Immediate Change of Management For all other patient related information, please fax us at [phone]. [facility] [address] Patient: MEDARDO AARON (Male) Age: 78 MR #: [id number] Status: ER Date: 03/04/19 02:19 Slices: [phone] History: PAIN AT RIGHT SIDE OF CHEST, SEPTIS, ARF, RECENT TRAUMA Priors: Tech: Eric Haynes @ [phone] Exams: CT ABDOMEN & PELVIS Without Contrast Accession Numbers: [id number] Preliminary Findings Only � See Final Report For Complete Findings CT ABDOMEN & PELVIS Without Contrast: No apparent solid organ injury. No hemoperitoneum. 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 Gallbladder distention. No radiodense gallstones. Appendix not identified. No colitis or bowel obstruction. Right rib fractures and pulmonary infiltrates as reported. Radiologist: Jenaro Gregorio M.D. Study ready at 02:25 and initial results transmitted at 02:55 *This report constitutes a preliminary interpretation only. Non-acute findings felt to be unrelated to the clinical presentation may not be discussed in this report. The study will be interpreted and a final report will be generated by the local Radiologist the following shift. To reach the hospital radiology department call [phone]. If a discrepancy is found between the preliminary and final interpretations of this study, please notify us via our Client Portal at [email or web address], under QA Exams. You can also fax this report with a description of the discrepancy, or include the final report, to our daytime fax number [phone]. If faxing, please indicate the severity of discrepancy using one of the following categories: [ ] 1 - Agree/Informational [ ] 2 - Unlikely to Affect Management [ ] 3 - Possible Eventual Change of Management [ ] 4 - Probable Immediate Change of Management For all other patient related information, please fax us at [phone]. Code Status & VTE Plan Code Status Full code VTE Prophylaxis Plan VTE Prophylaxis will be ordered: Yes Critical Care Time Total Critical Care Time: 45 Prolonged Care Time Total Time: Total critical care time 45 minutes (1) Pneumonia Laterality: right Lung location: lower lobe of lung Pneumonia type: due to unspecified organism Qualified Code(s): J18.1 - Lobar pneumonia, unspecified organism (2) Multiple rib fractures Encounter type: initial encounter Fracture type: closed Laterality: right Qualified Code(s): S22.41XA - Multiple fractures of ribs, right side, initial encounter for closed fracture (3) Sepsis Sepsis type: sepsis due to unspecified organism Qualified Code(s): A41.9 - Sepsis, unspecified organism
--- NOTE | 2019-03-04 06:16 | Emergency Department Note ---
Entered by Rene Gonzalez acting as a scribe for Osmel Kimball MD ED Provider Note Name: Usman Hilton Age: 78, male Arrives Via: Walk in Informant: Patient CC: Right rib pain HPI: The patient is a 78 year old male who presents to the emergency department with complaints of constant right-sided rib pain beginning last week. The patient states that he fell last week and broke three of his ribs. He notes that he has been taking pain medication at home. He also complains of SOB due to his pain but he denies any abdominal pain. He reports that he has a history of CAD and hypertension. The patient states that he is a former smoker and he notes that he drinks alcohol. He notes that he did not drink any alcohol tonight. ROS: See above HPI for pertinent positives & negatives. A total of 10 systems reviewed and were otherwise negative. Past Medical History: Multiple rib fractures, CAD, hypertension Past Surgical History: History of heart artery stent Family History: No pertinent family history Social History: Former smoker, drinks alcohol Home Medications: Please see medication list. Allergies: Cefuroxime Physical: Vitals: BP 117/64, Pulse 101 H, Resp 21, Temp 98.2 F, O2 Sat 95, delivery nasal cannula, flow rate 4L/min Exam: GENERAL: Patient is unwell appearing and in moderate distress, cachectic, pale appearing, dehydrated EYES: No scleral icterus, unremarkable pupils. ENT: Mucous membranes dry, no nasal congestion. NECK: No masses appreciated, no meningismus, trachea is midline. RESPIRATORY: Mild dypsnea/tachypenia. Crackles bilaterally with decreased breath sounds RLL. CARDIOVASCULAR: Tachy. No murmurs, rubs, gallops appreciated. CHEST: Tenderness to palpation of the right lower ribs GASTROINTESTINAL: Abdomen soft, no peritonitis. Bowel sounds positive. No masses appreciated. Mild tenderness to right upper abdomen. BACK: No midline tenderness, no CVA tenderness EXTREMITIES: Normal motion all extremities, no cyanosis, no edema. NEUROLOGIC: Alert and oriented, no acute motor or sensory deficits, no focal weakness, cranial nerves grossly intact. SKIN: No rash, no jaundice, no diaphoresis. ED Course: Prior Medical Record, Triage/Nursing Notes, Medications, Allergies reviewed by Me 0033: The patient was evaluated in room B5. A complete history and physical exam was performed. 0055: I rechecked the patient. He is much improved on oxygen. His is at bedside. She notes that the patient is back to normal but has been confused and SOB all day. 0136: Dr. Tejada - Hospitalist [facility], was paged. 0137: I discussed the patient's case with Dr. Mallory Ybarra, [facility]. He asked if I could discuss the patient's case with critical care. 0141: I discussed the patient's case with Graham Lombardi PA-C, Critical Care. He states that admission is acceptable if a repeat CT shows no trauma. 0228: Upon reevaluation, the patient is stable. I discussed the findings and the treatment plan with the patient. He expresses agreement and understanding. I spoke with Dr. Tejada of the [facility] Hospitalist Service. The patient will be evaluated for further management. 0422: I rechecked the patient. He is breathing stably on nasal cannula. 0455: I rediscussed the patient's case with the ICU PA. He states that he is aware of the patient but is still waiting on admission orders from the primary team. 0501: I reevaluated and updated the patient. He is comfortable and has a good oxygen saturation on 2L nasal cannula. He still has not urinated. We discussed lab findings. He is agreeable to trying BiPAP. 0516: I rediscussed the patient's case with Dr. Tejada. He just evaluated the patient. 0537: I rechecked the patient. He is unable to tolderate BiPAP, placed on high flow NC and will transfer to ICU for further management. Vital Signs: reviewed and remarkable for Hypoxia, tachy, hypotensive on arrival Labs: Reviewed and remarkable for abnormal vbg, elevated wbc, elevated cr, elevated k, amongst others Interventions: Saline Lock, NSS bolus 2 L IV, Zosyn 4.5mg IV, Vanco 1G IV, Duoneb, Morphine 4mg IV, NSS infusion, Bicarb 1 amp, insulin 10u IV, dextrose 1 amp Imaging: X ray results are stated below per my interpretation: Chest: 1 view: new RLL infiltrate vs contusion, no pneumothorax, no effusion [facility] Radiologist interpretation reviewed by me: CT CHEST Without Contrast: Infiltrates in the right middle and right lower lobes. Minimal infiltrates in the left lung base. Pulmonary emphysema. Right rib fractures, 6-8. Radiologist: Jenaro Gregorio MD CT ABDOMEN & PELVIS Without Contrast: No apparent solid organ injury. No hemoperitoneum. 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 Gallbladder distention. No radiodense gallstones. Appendix not identified. No colitis or bowel obstruction. Right rib fractures and pulmonary infiltrates as reported. Radiologist: Jenaro Gregorio MD EKG: EKG results per my interpretation. Indication - right chest pain. Normal sinus, 100, no ectopy, no ischemia, QTC 402, mildly peaked T waves, no recent for comparison. Consults: 0137: I discussed the patient's case with LESLI Ware. He asked if I could discuss the patient's case with critical care. 0141: I discussed the patient's case with Graham Lombardi PA-C, Critical Care. He states that admission is acceptable if a repeat CT shows no trauma. 0228: I reviewed the patient's case with Dr. Mallory Ybarra [facility]. He will evaluate the patient for further management. 0455: I rediscussed the patient's case with the ICU PA. He states that he is aware of the patient but is still waiting on admission orders from the primary team. 0516: I rediscussed the patient's case with Dr. Tejada. He just evaluated the patient. Blood pressure: Normal. No Referral necessary Disposition: admission to ICU Differentials: Differential diagnosis includes: fracture, cervical/vertebral injury, dislocation, intra-abdominal process, pneumothorax, intrathoracic trauma, intracranial injury, soft tissue injury, neurologic process, as well as other traumatic pathologies were entertained. Medical Decision Makin yr old male with fall 1 week ago resulting in 3 right rib fractures. Pain control issues as outpatient and started on morphine a few days ago. Not eating at home with worsening confusion and shortness of breath. Tonight severe to point EMS called by . Arrives ill appearing and hypoxic though on NC O2 vastly improved. Given neb and seems to feel better. Fluids started. With WBC elevation and RLL infiltrate sepsis protocol initiated. Further IV fluids given, broad spec abx started and patient with broadedned labs. Cr elevated likely secondary to dehydration and lack of eating status, though possibly IV contrast last week didn't help. Furthermore he was found to be hyperK which does have some peaked t waves on EKG thus given bicarb, insulin. VBG with acidosis and mild retaining. Multiple rechecks and evals of patient. Did try bipap which he was unable to tolerate. He is uncomfortable thus IV morphine given in small dose which helped with pain and he does not appear to be somnolent from this dose. He had CT chest revealing infiltrate though no pneumothorax nor effusion. CT abd/pelv without acute trauma either. Found to be anemic without bleeding and denies black bloody stools. Repeat Hcg 7.5 though without further hypotension will hold on transfusion but did send type screen at this time. He furthermore is sating well on NC O2. As he was in ED for extended while I did opt to repeat abx which did show persistent acidosis and hospitalist/icu aware. I furthermore recheck lactate which remained stable. Impression: Pneumonia, rib fractures, hypoxia, acidosis, sepsis, renal failure, hyperkalemia Critical Care Time: I have personally spent 120 minutes of critical care time in the direct manage ment of this patient. This includes bedside care, interpretation of diagnostic studies, and testing, discussion with consultants, patient, and family members, and other required patient management activities. This 120 minutes is in excess of all separately billable procedures. Osmel Kimball MD The scribe's documentation has been prepared under my direction and personally reviewed by me in its entirety. I confirm that the note above accurately reflects all work, treatment, procedures, and medical decision making performed by me. Impression & Plan Pneumonia, Fracture, ribs, Hypoxia, Acidosis, Sepsis, Renal failure, Hyperkalemia Past Med/Surg History Medical History Multiple rib fractures (Acute) Fall (Acute) CAD (coronary artery disease) (Acute) Chest pain (Acute) Hypertension (Chronic) Surgical History H/O heart artery stent (Acute) Family History Other No significant family history Social History Preferred Language: Romansh Feels Safe at Home: Yes Smoking Status: Current some day smoker Results & Data Vital Signs Vital Signs - 24 hr 03/04/19 00:33 03/04/19 00:39 03/04/19 00:40 Temperature 36.8 C Temperature Source Oral Sepsis Recent Fever Within 48 Hours No Sepsis Action Taken by Nursing No Action Required Pulse Rate 105 H 100 H 102 H Pulse Rate [Right Finger] Pulse Rate from SpO2 Sensor 103 H 100 H Pulse Rhythm Regular Pulse Rhythm [Right Finger] Pulse Strength Normal Pulse Strength [Right Finger] Respiratory Rate 17 12 24 Respiratory Effort / Characteristics Non-Labored Respiratory Depth Deep Respiratory Pattern Regular Blood Pressure 97/66 L 97/66 L Blood Pressure [Right Arm] Blood Pressure Mean 76 76 Blood Pressure Mean [Right Arm] Blood Pressure Position Sitting Pulse Oximetry 93 94 96 Oxygen Delivery Method Non-rebreather Oxygen Flow Rate 6 Fraction of Inspired Oxygen 03/04/19 01:00 03/04/19 01:01 03/04/19 01:09 Temperature Temperature Source Sepsis Recent Fever Within 48 Hours Sepsis Action Taken by Nursing Pulse Rate 102 H 101 H Pulse Rate [Right Finger] 102 H Pulse Rate from SpO2 Sensor 102 H 101 H Pulse Rhythm Pulse Rhythm [Right Finger] Pulse Strength Pulse Strength [Right Finger] Respiratory Rate 19 17 28 H Respiratory Effort / Characteristics Short of Breath Respiratory Depth Respiratory Pattern Blood Pressure 117/64 Blood Pressure [Right Arm] Blood Pressure Mean 81 Blood Pressure Mean [Right Arm] Blood Pressure Position Pulse Oximetry 86 L 91 95 Oxygen Delivery Method Non-rebreather Oxygen Flow Rate Fraction of Inspired Oxygen 100 03/04/19 01:22 03/04/19 01:30 03/04/19 02:00 Temperature Temperature Source Sepsis Recent Fever Within 48 Hours Sepsis Action Taken by Nursing Pulse Rate 99 H 111 H Pulse Rate [Right Finger] 101 H Pulse Rate from SpO2 Sensor 99 H 112 H Pulse Rhythm Pulse Rhythm [Right Finger] Regular Pulse Strength Pulse Strength [Right Finger] Normal Respiratory Rate 21 15 13 Respiratory Effort / Characteristics Non-Labored Spontaneous Respiratory Depth Deep Respiratory Pattern Regular Blood Pressure 119/62 Blood Pressure [Right Arm] 117/64 Blood Pressure Mean 81 Blood Pressure Mean [Right Arm] 81 Blood Pressure Position Pulse Oximetry 95 96 93 Oxygen Delivery Method Nasal Cannula Oxygen Flow Rate 4 Fraction of Inspired Oxygen 03/04/19 02:20 03/04/19 02:22 03/04/19 02:30 Temperature Temperature Source Sepsis Recent Fever Within 48 Hours Sepsis Action Taken by Nursing Pulse Rate 107 H 104 H Pulse Rate [Right Finger] 105 H Pulse Rate from SpO2 Sensor 107 H 104 H Pulse Rhythm Pulse Rhythm [Right Finger] Regular Pulse Strength Pulse Strength [Right Finger] Normal Respiratory Rate 21 18 16 Respiratory Effort / Characteristics Non-Labored Spontaneous Respiratory Depth Normal Respiratory Pattern Blood Pressure 139/74 125/67 Blood Pressure [Right Arm] 139/74 Blood Pressure Mean 95 86 Blood Pressure Mean [Right Arm] 95 Blood Pressure Position Pulse Oximetry 95 95 96 Oxygen Delivery Method Nasal Cannula Oxygen Flow Rate 4 Fraction of Inspired Oxygen 03/04/19 03:00 03/04/19 03:30 03/04/19 04:00 Temperature Temperature Source Sepsis Recent Fever Within 48 Hours Sepsis Action Taken by Nursing Pulse Rate 106 H 102 H 99 H Pulse Rate [Right Finger] Pulse Rate from SpO2 Sensor 105 H 102 H 99 H Pulse Rhythm Pulse Rhythm [Right Finger] Pulse Strength Pulse Strength [Right Finger] Respiratory Rate 11 L 27 H 11 L Respiratory Effort / Characteristics Respiratory Depth Respiratory Pattern Blood Pressure 124/67 108/73 118/59 L Blood Pressure [Right Arm] Blood Pressure Mean 86 84 78 Blood Pressure Mean [Right Arm] Blood Pressure Position Pulse Oximetry 96 98 98 Oxygen Delivery Method Oxygen Flow Rate Fraction of Inspired Oxygen 03/04/19 04:30 03/04/19 05:00 03/04/19 05:20 Temperature Temperature Source Sepsis Recent Fever Within 48 Hours Sepsis Action Taken by Nursing Pulse Rate 102 H 102 H 104 H Pulse Rate [Right Finger] Pulse Rate from SpO2 Sensor 102 H 103 H Pulse Rhythm Pulse Rhythm [Right Finger] Pulse Strength Pulse Strength [Right Finger] Respiratory Rate 18 24 28 H Respiratory Effort / Characteristics Respiratory Depth Respiratory Pattern Blood Pressure 120/66 125/72 Blood Pressure [Right Arm] Blood Pressure Mean 84 89 Blood Pressure Mean [Right Arm] Blood Pressure Position Pulse Oximetry 98 99 96 Oxygen Delivery Method Oxygen Flow Rate Fraction of Inspired Oxygen 40 03/04/19 05:30 Temperature Temperature Source Sepsis Recent Fever Within 48 Hours Sepsis Action Taken by Nursing Pulse Rate 103 H Pulse Rate [Right Finger] Pulse Rate from SpO2 Sensor 103 H Pulse Rhythm Pulse Rhythm [Right Finger] Pulse Strength Pulse Strength [Right Finger] Respiratory Rate 24 Respiratory Effort / Characteristics Respiratory Depth Respiratory Pattern Blood Pressure 124/66 Blood Pressure [Right Arm] Blood Pressure Mean 85 Blood Pressure Mean [Right Arm] Blood Pressure Position Pulse Oximetry 96 Oxygen Delivery Method Oxygen Flow Rate Fraction of Inspired Oxygen Home Medications Current Medication List: was personally reviewed by oh Laboratory Data Attestation: I reviewed the patient's lab results. Result diagrams: 03/04/19 04:26 03/04/19 04:25 Lab Results 03/04/19 03/04/19 03/04/19 Range/Units 00:49 00:49 00:49 WBC 25.13 H (4.8-10.8) K/uL RBC 2.64 L (4.7-6.1) M/uL Hgb 8.2 L (14.0-18.0) g/dL Hct 24.9 L (42-52) % MCV 94.3 (80-100) fL MCH 31.1 (25-34) pg MCHC 32.9 (32-36) g/dL RDW Std Deviation 50.3 H (36.4-46.3) fL RDW Coeff of Lucas 14.6 H (11.5-14.5) % Plt Count 505 H (130-400) K/uL MPV 8.8 (7.4-10.4) fL Immature Gran % (Auto) 0.5 % Neut % (Auto) 92.0 % Lymph % (Auto) 3.2 % [place] % (Auto) 4.0 % Eos % (Auto) 0.2 % Baso % (Auto) 0.1 % Immature Gran # (Auto) 0.12 H (0.00-0.02) K/uL Neut # (Auto) 23.11 H (1.4-6.5) K/uL Lymph # (Auto) 0.81 L (1.2-3.4) K/uL [place] # (Auto) 1.01 H (0.11-0.59) K/uL Eos # (Auto) 0.06 (0-0.5) K/uL Baso # (Auto) 0.02 (0-0.2) K/uL Absolute Nucleated RBC 0.03 H (0-0) K/uL Nucleated RBC % (auto) 0.1 % Toxic Vacuolation 1+ PT 10.6 (9.0-12.0) Seconds INR 1.0 (0.9-1.1) ABG pH (7.35-7.45) ABG pCO2 (35-46) mmHg ABG pO2 (80-95) mm/Hg ABG HCO3 (19-24) mmol/L ABG O2 Saturation (90-95) % ABG Base Excess (-9-1.8) mEq/L Jose Test (Pos) VBG pH (7.36-7.41) VBG pCO2 (38-50) mmHg VBG pO2 mmHg VBG HCO3 mmol/L VBG O2 Saturation % VBG Base Excess mEq/L Oxygen Given Sodium 133 L (136-145) mmol/L Potassium 5.6 H (3.5-5.1) mmol/L Chloride 103 (98-107) mmol/L Carbon Dioxide 19 L (21-32) mmol/L Anion Gap 11.0 (3-11) BUN 73 H (7-18) mg/dl Creatinine 4.21 H (0.6-1.4) mg/dl Est Cr Clr Drug Dosing 12.5 ml/min Est GFR ( Amer) 14.8 Est GFR (Non-Af Amer) 12.8 BUN/Creatinine Ratio 17.3 (10-20) Glucose 107 H (70-99) mg/dl Lactate (0.4-2.0) mmol/L Calcium 9.1 (8.5-10.1) mg/dl Magnesium 1.5 L (1.8-2.4) mg/dl Total Bilirubin 0.3 (0.2-1) mg/dl Direct Bilirubin < 0.1 (0-0.2) mg/dl AST 51 H (15-37) U/L ALT 15 (12-78) U/L Alkaline Phosphatase 100 (45-117) U/L Troponin I < 0.015 (0-0.045) ng/ml Total Protein 7.6 (6.4-8.2) gm/dl Albumin 2.4 L (3.4-5.0) gm/dl Lipase 44 L (73-393) U/L Blood Type Antibody Screen 03/04/19 03/04/19 03/04/19 Range/Units 00:49 01:15 04:25 WBC (4.8-10.8) K/uL RBC (4.7-6.1) M/uL Hgb (14.0-18.0) g/dL Hct (42-52) % MCV (80-100) fL MCH (25-34) pg MCHC (32-36) g/dL RDW Std Deviation (36.4-46.3) fL RDW Coeff of Lucas (11.5-14.5) % Plt Count (130-400) K/uL MPV (7.4-10.4) fL Immature Gran % (Auto) % Neut % (Auto) % Lymph % (Auto) % [place] % (Auto) % Eos % (Auto) % Baso % (Auto) % Immature Gran # (Auto) (0.00-0.02) K/uL Neut # (Auto) (1.4-6.5) K/uL Lymph # (Auto) (1.2-3.4) K/uL [place] # (Auto) (0.11-0.59) K/uL Eos # (Auto) (0-0.5) K/uL Baso # (Auto) (0-0.2) K/uL Absolute Nucleated RBC (0-0) K/uL Nucleated RBC % (auto) % Toxic Vacuolation PT (9.0-12.0) Seconds INR (0.9-1.1) ABG pH (7.35-7.45) ABG pCO2 (35-46) mmHg ABG pO2 (80-95) mm/Hg ABG HCO3 (19-24) mmol/L ABG O2 Saturation (90-95) % ABG Base Excess (-9-1.8) mEq/L Jose Test (Pos) VBG pH 7.16 L (7.36-7.41) VBG pCO2 52 H (38-50) mmHg VBG pO2 28 mmHg VBG HCO3 18 mmol/L VBG O2 Saturation < 60.0 % VBG Base Excess -10.6 mEq/L Oxygen Given Sodium 136 (136-145) mmol/L Potassium 5.1 (3.5-5.1) mmol/L Chloride 107 (98-107) mmol/L Carbon Dioxide 18 L (21-32) mmol/L Anion Gap 11.0 (3-11) BUN 69 H (7-18) mg/dl Creatinine 3.80 H D (0.6-1.4) mg/dl Est Cr Clr Drug Dosing 13.9 ml/min Est GFR ( Amer) 16.8 Est GFR (Non-Af Amer) 14.5 BUN/Creatinine Ratio 18.1 (10-20) Glucose 78 (70-99) mg/dl Lactate 0.8 (0.4-2.0) mmol/L Calcium 8.4 L (8.5-10.1) mg/dl Magnesium (1.8-2.4) mg/dl Total Bilirubin (0.2-1) mg/dl Direct Bilirubin (0-0.2) mg/dl AST (15-37) U/L ALT (12-78) U/L Alkaline Phosphatase (45-117) U/L Troponin I (0-0.045) ng/ml Total Protein (6.4-8.2) gm/dl Albumin (3.4-5.0) gm/dl Lipase (73-393) U/L Blood Type Antibody Screen 03/04/19 03/04/19 03/04/19 Range/Units 04:26 04:26 04:26 WBC (4.8-10.8) K/uL RBC (4.7-6.1) M/uL Hgb 7.5 L (14.0-18.0) g/dL Hct (42-52) % MCV (80-100) fL MCH (25-34) pg MCHC (32-36) g/dL RDW Std Deviation (36.4-46.3) fL RDW Coeff of Lucas (11.5-14.5) % Plt Count (130-400) K/uL MPV (7.4-10.4) fL Immature Gran % (Auto) % Neut % (Auto) % Lymph % (Auto) % [place] % (Auto) % Eos % (Auto) % Baso % (Auto) % Immature Gran # (Auto) (0.00-0.02) K/uL Neut # (Auto) (1.4-6.5) K/uL Lymph # (Auto) (1.2-3.4) K/uL [place] # (Auto) (0.11-0.59) K/uL Eos # (Auto) (0-0.5) K/uL Baso # (Auto) (0-0.2) K/uL Absolute Nucleated RBC (0-0) K/uL Nucleated RBC % (auto) % Toxic Vacuolation PT (9.0-12.0) Seconds INR (0.9-1.1) ABG pH 7.18 L* (7.35-7.45) ABG pCO2 50 H (35-46) mmHg ABG pO2 94 (80-95) mm/Hg ABG HCO3 18 L (19-24) mmol/L ABG O2 Saturation 92.1 (90-95) % ABG Base Excess -10.2 L (-9-1.8) mEq/L Jose Test Pos (Pos) VBG pH (7.36-7.41) VBG pCO2 (38-50) mmHg VBG pO2 mmHg VBG HCO3 mmol/L VBG O2 Saturation % VBG Base Excess mEq/L Oxygen Given 4L Sodium (136-145) mmol/L Potassium (3.5-5.1) mmol/L Chloride (98-107) mmol/L Carbon Dioxide (21-32) mmol/L Anion Gap (3-11) BUN (7-18) mg/dl Creatinine (0.6-1.4) mg/dl Est Cr Clr Drug Dosing ml/min Est GFR ( Amer) Est GFR (Non-Af Amer) BUN/Creatinine Ratio (10-20) Glucose (70-99) mg/dl Lactate (0.4-2.0) mmol/L Calcium (8.5-10.1) mg/dl Magnesium (1.8-2.4) mg/dl Total Bilirubin (0.2-1) mg/dl Direct Bilirubin (0-0.2) mg/dl AST (15-37) U/L ALT (12-78) U/L Alkaline Phosphatase (45-117) U/L Troponin I (0-0.045) ng/ml Total Protein (6.4-8.2) gm/dl Albumin (3.4-5.0) gm/dl Lipase (73-393) U/L Blood Type O Positive Antibody Screen NEGATIVE 03/04/19 Range/Units 04:26 WBC (4.8-10.8) K/uL RBC (4.7-6.1) M/uL Hgb (14.0-18.0) g/dL Hct (42-52) % MCV (80-100) fL MCH (25-34) pg MCHC (32-36) g/dL RDW Std Deviation (36.4-46.3) fL RDW Coeff of Lucas (11.5-14.5) % Plt Count (130-400) K/uL MPV (7.4-10.4) fL Immature Gran % (Auto) % Neut % (Auto) % Lymph % (Auto) % [place] % (Auto) % Eos % (Auto) % Baso % (Auto) % Immature Gran # (Auto) (0.00-0.02) K/uL Neut # (Auto) (1.4-6.5) K/uL Lymph # (Auto) (1.2-3.4) K/uL [place] # (Auto) (0.11-0.59) K/uL Eos # (Auto) (0-0.5) K/uL Baso # (Auto) (0-0.2) K/uL Absolute Nucleated RBC (0-0) K/uL Nucleated RBC % (auto) % Toxic Vacuolation PT (9.0-12.0) Seconds INR (0.9-1.1) ABG pH (7.35-7.45) ABG pCO2 (35-46) mmHg ABG pO2 (80-95) mm/Hg ABG HCO3 (19-24) mmol/L ABG O2 Saturation (90-95) % ABG Base Excess (-9-1.8) mEq/L Jose Test (Pos) VBG pH (7.36-7.41) VBG pCO2 (38-50) mmHg VBG pO2 mmHg VBG HCO3 mmol/L VBG O2 Saturation % VBG Base Excess mEq/L Oxygen Given Sodium (136-145) mmol/L Potassium (3.5-5.1) mmol/L Chloride (98-107) mmol/L Carbon Dioxide (21-32) mmol/L Anion Gap (3-11) BUN (7-18) mg/dl Creatinine (0.6-1.4) mg/dl Est Cr Clr Drug Dosing ml/min Est GFR ( Amer) Est GFR (Non-Af Amer) BUN/Creatinine Ratio (10-20) Glucose (70-99) mg/dl Lactate 0.5 (0.4-2.0) mmol/L Calcium (8.5-10.1) mg/dl Magnesium (1.8-2.4) mg/dl Total Bilirubin (0.2-1) mg/dl Direct Bilirubin (0-0.2) mg/dl AST (15-37) U/L ALT (12-78) U/L Alkaline Phosphatase (45-117) U/L Troponin I (0-0.045) ng/ml Total Protein (6.4-8.2) gm/dl Albumin (3.4-5.0) gm/dl Lipase (73-393) U/L Blood Type Antibody Screen Administered Medications Sodium Chloride (Nss 1000ml) 1,000 mls @ 125 mls/hr IV .Q8H SANDRA Stop: 04/03/19 04:14 Last Admin: 03/04/19 04:19 Dose: 125 mls/hr Documented by: [id number] Discontinued Medications Albuterol (Duoneb) 3 ml NEB NOW STA Stop: 03/04/19 01:05 Last Admin: 03/04/19 01:08 Dose: 3 ml Documented by: [id number] Dextrose (Dextrose 50%) 50 ml IV NOW STA Stop: 03/04/19 01:35 Last Admin: 03/04/19 02:02 Dose: 50 ml Documented by: [id number] Sodium Chloride (Nss 1000ml) 1,000 mls @ 999 mls/hr IV .Q1H1M ONE Stop: 03/04/19 02:04 Last Infusion: 03/04/19 02:29 Dose: 0 mls/hr Documented by: [id number] Admin: 03/04/19 01:25 Dose: 999 mls/hr Documented by: [id number] Piperacillin Sod/Tazobactam Sod (Zosyn) 4.5 gm in 120 mls @ 240 mls/hr IV NOW ONE Stop: 03/04/19 01:30 Last Infusion: 03/04/19 02:22 Dose: 0 mls/hr Documented by: [id number] Admin: 03/04/19 01:50 Dose: 240 mls/hr Documented by: [id number] Sodium Chloride (Nss 1000ml) 1,000 mls @ 999 mls/hr IV .Q1H1M ONE Stop: 03/04/19 02:04 Last Infusion: 03/04/19 02:29 Dose: 0 mls/hr Documented by: [id number] Admin: 03/04/19 01:25 Dose: 999 mls/hr Documented by: [id number] Magnesium Sulfate/Dextrose (Magnesium Sulfate / D5w) 1 gm in 100 mls @ 100 mls/ hr IV ONE ONE Stop: 03/04/19 05:05 Last Infusion: 03/04/19 05:28 Dose: 0 mls/hr Documented by: [id number] Admin: 03/04/19 04:19 Dose: 100 mls/hr Documented by: [id number] Insulin Human Regular (Novolin R) 10 units IV NOW STA Stop: 03/04/19 01:35 Last Admin: 03/04/19 02:01 Dose: 10 units Documented by: [id number] Cosigned by: [id number] Insulin Human Regular (Novolin R U-100 Per Unit) Confirm Administered Dose 10 units .ROUTE .STK-MED ONE Stop: 03/04/19 01:39 Last Admin: 03/04/19 02:03 Dose: Not Given Documented by: [id number] Morphine Sulfate (Morphine Sulfate) 4 mg IV NOW STA Stop: 03/04/19 03:30 Last Admin: 03/04/19 03:35 Dose: 4 mg Documented by: [id number] Sodium Bicarbonate (Sodium Bicarbonate 8.4%) 50 meq IV NOW STA Stop: 03/04/19 01:35 Last Admin: 03/04/19 01:50 Dose: 50 meq Documented by: [id number] Discharge Plan Visit Data Chief Complaint: Rib Injury/Pain Stated Complaint: RIB PAIN ED Provider: Osmel Kimball Discharge Problem: Pneumonia, Fracture, ribs, Hypoxia, Acidosis, Sepsis, Renal failure, Hyperkalemia Patient Disposition: Being Evaluated by Hospitalist Discharge Instructions Interventions: ED Discharge Assessment Last Done: 03/04/19 05:46 Forms Stand Alone Forms: [facility] Prescriptions Prescriptions: No Action atorvastatin 40 mg tablet 40 mg PO QPM RF: 0 buspirone 5 mg tablet 5 mg PO TID PRN (Reason: Anxiety) RF: 0 primidone 50 mg tablet 50 mg PO DAILY RF: 0 cyanocobalamin (vitamin B-12) [Vitamin B-12] 1,000 mcg Tablet 1,000 mcg PO QAM RF: 0 amlodipine 5 mg tablet 5 mg PO BID RF: 0 omeprazole 40 mg capsule,delayed release(DR/EC) 40 mg PO QAM RF: 0 aspirin 81 mg Tablet,Delayed Release (Dr/Ec) 81 mg PO QAM RF: 0 nitroglycerin 0.4 mg tablet, sublingual 0.4 mg sublingual DIRECTED PRN (Reason: Chest Pain) RF: 0 gabapentin 300 mg capsule 600 mg PO HS RF: 0 mirtazapine 45 mg tablet 45 mg PO HS RF: 0 metoprolol succinate 25 mg tablet extended release 24 hr 25 mg PO DAILY RF: 0 cholecalciferol (vitamin D3) [Vitamin D3] 1,000 unit Capsule 1,000 unit PO QAM RF: 0 morphine 15 mg tablet 15 - 30 mg PO Q4 PRN (Reason: Pain) RF: 0 Referrals Referrals: Юлия Harvey MD [Primary Care Provider] - Discharge Problem: Pneumonia Qualifiers: Pneumonia type: due to unspecified organism Laterality: right Lung location: lower lobe of lung Qualified Code(s): J18.1 - Lobar pneumonia, unspecified organism Fracture, ribs Qualifiers: Encounter type: initial encounter Rib fracture type: multiple ribs Fracture type: closed Laterality: right Qualified Code(s): S22.41XA - Multiple fractures of ribs, right side, initial encounter for closed fracture Sepsis Qualifiers: Sepsis type: sepsis due to unspecified organism Qualified Code(s): A41.9 - Sepsis, unspecified organism Renal failure Qualifiers: Renal failure chronicity: acute Acute renal failure type: unspecified Qualified Code(s): N17.9 - Acute kidney failure, unspecified The scribe's documentation has been prepared under my direction and personally reviewed by me in its entirety. I confirm that the note above accurately reflects all work, treatment, procedures, and medical decision making performed by me.
--- NOTE | 2019-03-04 06:27 | Critical Care Consultation ---
Date of Consultation March 04, 2019 Assessment & Plan (1) Admitted to intensive care unit: Reason Critically Ill: 78-year-old male with RIGHT lower middle lobe pneumonia in the setting of poor ventilatory effort secondary to multiple rib fractures in the setting of fall approximately 1 week ago. Patient with hypoxic respiratory failure and acute renal failure resulting in metabolic acidosis. NEURO - * CAM ICU: NEGATIVE * AMS: * Likely multifactorial in the setting of ARF, metabolic encephalopathy, infection, and narcotic use. * Will monitor for changes as clinical state improves. CARDIAC/VASCULAR - * h/o CAD, HTN, prior stenting. * Continue home Rx as tolerated. * EKG: NSR@100bpm. No ST/T-wave changes. * Monitor on telemetry. RESPIRATORY - * Acute hypoxic respiratory therapy in the setting of RLL/RML Pneumonia: * Likely 2/2 poor pulmonary toilet in the setting of rib fractures. * Repeat CT shows no worsening fractures. * RIGHT middle and lower lobe pneumonias. * Initially treated with Zosyn. Will change in the setting of acute renal failure. * Patient with recent hospital visit. Placed on vancomycin and aztreonam. * Aggressive pulmonary toilet. * Consider discussion for thoracic/interscalene blocks for pain control. * Low threshold for intubation if needed. GI/NUTRITION - * Consider nutrition consult given patient's cachectic state. * Prophylaxis: Famotidine. RENAL/LYTES - * ARF: * Likely prerenal in the setting of hypovolemia. * Aggressive IVF Resuscitation. * No significant electrolyte derangements otherwise. * IVF: NSS@200mL/hr - * Hdz in place - Strict I&Os. ENDO - * No h/o DM or Thyroid Dz * BSGs per unit protocol. ISS --> gtt per unit policy. HEME - * Anemia: * Trend H&H ID - * RML/RLL PNA: * Received Zosyn in the ED. * Agree with changing 2/2 ARF. * Can d/c Vanc if MRSA screening negative. * Follow [facility] LINES/IV ACCESS - * PIVs x2 DVT PROPHYLAXIS - * SCDs I have personally spent 45 minutes of critical care time in the direct management of this patient. This is a life/limb threatening event. This includes time spent evaluating patient, direct bedside care, chart review, placing orders, interpretation of diagnostic studies, discussion with consultants, patient, and family members, as well as other required patient management activities. This time is exclusive of all separately billable procedures, and teaching time and separate from and in addition to any other critical care service time. Thank you for allowing us to participate in the care of this patient. Please refer to my attending physician's documentation for any further recommendations. (2) Fracture, ribs: (3) Pneumonia: (4) Acidosis: (5) Acute renal failure (ARF): (6) Acute respiratory failure with hypoxia and hypercapnia: (7) Metabolic acidosis: (8) Fall: (9) Hyperkalemia: (10) Anxiety: (11) Rib pain on right side: Supervising Physician Co-Signing Physician Notes I have personally evaluated and examined this patient. I agree with assessment and plan of Carmel Oropeza PA-C. Reason Critically Ill: 78-year-old male with RIGHT lower middle lobe pneumonia in the setting of poor ventilatory effort secondary to multiple rib fractures in the setting of fall approximately 1 week ago. Patient with hypoxic respiratory failure and acute renal failure resulting in metabolic acidosis. NEURO - * CAM ICU: NEGATIVE * Acute encephalopathy: * Likely multifactorial in the setting of ARF, metabolic encephalopathy, infection, and narcotic use. * Will monitor for changes as clinical state improves. * Currently lacks capacity oriented -Add ammonia level, mildly elevated AST -Unknown alcohol use: Alcohol withdrawal severity score -Passed bedside swallow Pain -Oxycodone 5 every 4 as needed -Lidoderm patches -Consider neuraxial anesthesia: Holding heparin secondary to acute renal failure and possible traumatic injury of liver given rib fractures Rib fractures -Nondisplaced CARDIAC/VASCULAR - * h/o CAD, HTN, prior stenting. * Continue home Rx as tolerated. * EKG: NSR@100bpm. No ST/T-wave changes. * Monitor on telemetry. RESPIRATORY - * Acute hypoxic respiratory failure in the setting of RLL/RML Pneumonia: * Likely 2/2 poor pulmonary toilet in the setting of rib fractures. * Tolerating high flow * RIGHT middle and lower lobe pneumonias. * Aggressive pulmonary toilet. * Consider discussion for thoracic/interscalene blocks for pain control. * Low threshold for intubation if needed. GI/NUTRITION - * Consider nutrition consult given patient's cachectic state. * Prophylaxis: Famotidine renal adjustment * Hypoalbuminemia 2.4: Sarcopena RENAL/LYTES - * ARF: Hopefully has nadired * Likely prerenal in the setting of hypovolemia. * Aggressive IVF Resuscitation. * Hold gabapentin * IVF: Bicarbonate at 200 mL's per hour * Mixed respiratory/metabolic acidosis - * Hdz in place - Strict I&Os. ENDO - * No h/o DM or Thyroid Dz * BSGs per unit protocol. ISS --> gtt per unit policy. HEME - * Anemia: * Trend H&H * Alcohol versus acute blood loss in setting of trauma versus anemia of chronic disease * Reticulocyte count pending * Iron studies pending ID - * RML/RLL PNA: * Continue aztreonam: Plan 10 days of treatment likely has underlying str uctural lung disease day 2 of 10 * Discontinue pro-Adis in setting of acute renal failure LINES/IV ACCESS - * PIVs x2 DVT PROPHYLAXIS - * SCDs CODE STATUS: Full, will discuss in further elucidate conditions with family and patient such as renal replacement therapy I have personally spent 40 minutes of critical care time in the direct management of this patient. This is a life/limb threatening event. This includes time spent evaluating patient, direct bedside care, chart review, placing orders, interpretation of diagnostic studies, discussion with consultants, patient, and family members, as well as other required patient management activities. This time is exclusive of all separately billable procedures, and teaching time and separate from and in addition to any other critical care service time. Patient was discussed in multidisciplinary rounds History of Present Illness History of Present Illness Patient is a 78-year-old male with a significant past medical history of hypertension, coronary artery disease status post PTCI with stenting, and prior smoking history several years ago who presented to the emergency department on 02/25 after having sustained a fall 3 days prior while on a fishing trip. He underwent their assessment with CT images performed of the head, abdomen/pelvis, and chest. Chest CT concerning for nondisplaced fractures of the RIGHT sixth, seventh, and eighth ribs. No pneumothorax. No traumatic lung findings otherwise. Patient was adequately controlled with pain medication. He was offered admission at that time which he adamantly declined. The patient was sent home on pain medication. Throughout the last several days, he has had persistent pain. He has had decreased p.o. intake. He presented to the emergency department this evening with increasing RIGHT-sided chest pain. He was found to have an elevated white count of greater than 25,000. Worsening anemia noted. Patient was found to be in acute renal failure with a creatinine of 4.21. Potassium was 5.6. He was treated aggressively with the concerns of peaked T waves. He received 2 L of IV fluids. Repeat CT demonstrates RIGHT lower and middle lobe consolidations. Persistent rib fractures noted. No flail chest or other traumatic findings appreciated. Patient received IV Zosyn. Upon arrival in the ICU, the patient is awake, alert, and oriented. He complains of pain to the RIGHT sided ribs. He has increasing pain with any movement or with deep inspiration. He admits to decreased p.o. intake over the last 3 to 4 days. He complains of generalized lethargy. He denies any headaches, dizziness, lightheadedness, palpitations, hemoptysis, nausea, vomiting Allergies Allergy/AdvReac Type Severity Reaction Status Date / Time cefuroxime Allergy Unknown rash Verified 03/04/19 02:19 Home Medications Home Medications Medication Instructions Recorded Confirmed Type amlodipine 5 mg PO BID 02/25/19 03/04/19 History aspirin 81 mg PO QAM 02/25/19 03/04/19 History atorvastatin 40 mg PO QPM 02/25/19 03/04/19 History buspirone 5 mg PO TID PRN 02/25/19 03/04/19 History cholecalciferol (vitamin D3) 1,000 unit PO QAM 02/25/19 03/04/19 History [Vitamin D3] cyanocobalamin (vitamin B-12) 1,000 mcg PO QAM 02/25/19 03/04/19 History [Vitamin B-12] gabapentin 600 mg PO HS 02/25/19 03/04/19 History metoprolol succinate 25 mg PO DAILY 02/25/19 03/04/19 History mirtazapine 45 mg PO HS 02/25/19 03/04/19 History nitroglycerin 0.4 mg SUBLINGUAL DIRECTED PRN 02/25/19 03/04/19 History omeprazole 40 mg PO QAM 02/25/19 03/04/19 History primidone 50 mg PO DAILY 02/25/19 03/04/19 History morphine 15 - 30 mg PO Q4 PRN 03/04/19 03/04/19 History Patient History Medical History Multiple rib fractures (Acute) Fall (Acute) CAD (coronary artery disease) (Acute) Chest pain (Acute) Hypertension (Chronic) Surgical History H/O heart artery stent (Acute) Family History Other No significant family history Social History Preferred Language: Tristanian Communication Ability: Effective Beliefs That Will Affect Care: None Current Living Situation: Spouse Other Information That Helps Us Care for You: No Feels Safe at Home: Yes Safety Concerns: Feels Safe At This Time Smoking Status: Former smoker Hx Substance Use: No Review of Systems Review of Systems: A complete 10 point review of systems was reviewed with the patient with pertinent positives and negatives as per history of present illness. All else were negative. Physical Exam Physical Exam: VITAL SIGNS - Vital signs and nursing notes were reviewed. GENERAL - 78-year-old male appearing his stated age who is in no acute distress. Cachectic appearing. Communicates well with provider and answers questions appropriately. SKIN - Without rashes. No erythema or ecchymosis noted throughout. Seborrhea noted to the scalp. HEAD - NC/AT. EYES - PERRL with EOMI bilaterally. Sclera anicteric. EARS - No deformities of external structures noted on gross examination bilaterally. NOSE - Midline and without cyanosis. No epistaxis or purulent drainage noted. MOUTH/OROPHARYNX - Without perioral cyanosis. Buccal mucosa pink and dry. Tongue midline with equal elevation of palate bilaterally. NECK - Neck with FROM. Supple to palpation. No lymphadenopathy noted. No nuchal rigidity. LUNGS - Chest wall symmetric without accessory muscle use, intercostals retractions, or central cyanosis. CTA in upper lung ug[place]. Coarse breath sounds to RIGHT lower lung ug[place]. CARDIAC - RRR with S1/S2. No murmur, rubs, or gallops appreciated. ABDOMEN - Abdominal contour flat without pulsations or visible masses. BS normoactive all four quadrants. No tenderness, palpable masses, hepatosplenomegaly, or ascites noted. EXTREMITIES - No clubbing or peripheral cyanosis. No pretibial edema present. +3/5 radial and dorsalis pedis pulses palpated throughout. +4/5 strength noted in UE/LE bilaterally. NEUROLOGIC - Cranial nerves II through XII grossly intact. Sensory intact to light touch throughout. PSYCH - A&Ox3 and cooperates fully with examiner. Results & Data Vital Signs (Past 12 Hours) Vital Signs Temp Pulse Pulse Resp BP BP Pulse Ox 03/04/19 05:30 103 H 24 124/66 96 03/04/19 05:20 104 H 28 H 96 03/04/19 05:00 102 H 24 125/72 99 03/04/19 04:30 102 H 18 120/66 98 03/04/19 04:00 99 H 11 L 118/59 L 98 03/04/19 03:30 102 H 27 H 108/73 98 03/04/19 03:00 106 H 11 L 124/67 96 03/04/19 02:30 104 H 16 125/67 96 03/04/19 02:22 105 H 18 139/74 95 03/04/19 02:20 107 H 21 139/74 95 03/04/19 02:00 111 H 13 119/62 93 03/04/19 01:30 99 H 15 96 03/04/19 01:22 101 H 21 117/64 95 03/04/19 01:09 102 H 28 H 95 03/04/19 01:01 101 H 17 117/64 91 03/04/19 01:00 102 H 19 86 L 03/04/19 00:40 36.8 C 102 H 24 97/66 L 96 03/04/19 00:39 100 H 12 94 03/04/19 00:33 105 H 17 97/66 L 93 Critical Care Time Critical Care Time: Yes Total Critical Care Time: 45 Additional critical care time performed by Dr. Domingo: 40 minutes (1) Fracture, ribs Encounter type: initial encounter Fracture type: closed Laterality: right Rib fracture type: multiple ribs Qualified Code(s): S22.41XA - Multiple fractures of ribs, right side, initial encounter for closed fracture (2) Pneumonia Laterality: right Lung location: lower lobe of lung Pneumonia type: due to unspecified organism Qualified Code(s): J18.1 - Lobar pneumonia, unspecified organism
[2019-03-04] MEDS ORDERED: ICU PROTOCOL FOR HYPERGLYCEMIA PRN (06:30)
[2019-03-04] MEDS ORDERED: ACETAMINOPHEN 1000 MG/100 ML IV IV PRN (06:30)
[2019-03-04] MEDS ORDERED: ONDANSETRON INJ 2 MG/ML 2 ML VIAL IV PRN (06:30)
[2019-03-04] MEDS ORDERED: MoRPHine SULFATE 2 MG/ML CARP IV PRN (06:30)
[2019-03-04] MEDS ORDERED: ALBUMIN HUMAN 25% 12.5 GM/50 ML VIAL IV ONE (06:30)
[2019-03-04] MEDS ORDERED: SODIUM BICARBONATE 8.4% 150 MEQ in DEXTROSE 5% 1,000 ML IV SCH (06:30)
--- NOTE | 2019-03-04 06:36 | XRay Report ---
XR chest 1V portable CLINICAL HISTORY: 78 years-old Male presenting with shortness of breath, right rib pain, known right rib fractures. TECHNIQUE: Portable upright AP view of the chest was obtained. COMPARISON: 02/25/2019. FINDINGS: Atherosclerosis of the aortic arch. Cardiac silhouette top normal in size. Decreased aeration of the right lung base with interval development of a minimal right basilar opacity, which appears both hazy and reticular. No large effusion or pneumothorax. Previously noted nondisplaced fractures of the rig ht sixth through eighth ribs on most recent CT from 02/25/2019 minimally apparent by radiograph. Moore us structures appear osteopenic. Upper abdomen normal. IMPRESSION: 1. Known nondisplaced right rib fractures minimally apparent by radiograph. 2. Interval development of right basilar infiltrate. While this could represent atelectasis in the s etting of the rib fractures, infection cannot be excluded given the radiographic appearance. Continue d follow-up recommended. Correlate for infectious symptoms. Electronically signed by: Klaus Galan M.D. 03/04/2019 6:34 AM
[2019-03-04] MEDS ORDERED: AZTREONAM CONSULT ACTIVE PRN (06:46)
[2019-03-04] MEDS: ALBUT/IPRATROP 3MG/0.5MG NEB 3 ML VIAL NEB SCH ×4 (06:59→19:11)
--- NOTE | 2019-03-04 07:07 | CT Scan Report ---
CT OF THE CHEST WITHOUT IV CONTRAST CLINICAL HISTORY: Right-sided chest pain. Recent fall. Reevaluate right lung. COMPARISON STUDY: Chest CT February 25, 2019. TECHNIQUE: Axial images of the chest were obtained without IV contrast. Images were reviewed in the axial, sagittal, and coronal planes. IV contrast was not administered for this examination. Automat ed exposure control was utilized for the study. A dose lowering technique was utilized adhering to t he principles of ALARA. FINDINGS: Acute mildly displaced fractures of the lateral right sixth, seventh and eighth ribs are a gain noted. There is no pneumothorax. Moderate emphysema is noted. There has been interval developmen t of extensive right lower lobe consolidation since CT of February 25, 2019. There is mild consolidation w ithin the right middle lobe as well. Minimal left basilar opacity may reflect an infectious process o r atelectasis. There are secretions within the trachea, right mainstem bronchus and bronchus intermed ius as well as right lower lobe segmental bronchi. There is no central obstructing mass. Dilated cent ral pulmonary arteries are noted. The heart is mildly enlarged. There is extensive coronary artery ca lcification. There is no pericardial effusion. No acute thoracic spine fracture is present. The abdom en and pelvis will be reported separately. IMPRESSION: 1. Interval development of extensive right lower lobe consolidation since CT of February 25, 2019. Additio nal right middle lobe opacity with secretions within the airways. The findings suggest pneumonia, pot entially on the basis of aspiration. 2.Redemonstration of mildly displaced right sixth, seventh and eighth rib fractures. No pneumothorax. 3. Emphysema. 4. Dilated central pulmonary arteries which suggests pulmonary arterial hypertension. Electronically signed by: Kyree Harvey M.D. 03/04/2019 7:06 AM
--- NOTE | 2019-03-04 07:16 | CT Scan Report ---
CT OF THE ABDOMEN AND PELVIS WITHOUT CONTRAST CLINICAL HISTORY: Sepsis. Acute renal failure. Recent trauma. COMPARISON STUDY: CT of the abdomen and pelvis September 10, 2015 and February 25, 2019. TECHNIQUE: Axial images of the abdomen and pelvis were obtained without IV contrast. Images were revi ewed in the axial, sagittal, and coronal planes. Automated exposure control was utilized for the judith dy. A dose lowering technique was utilized adhering to the principles of ALARA. FINDINGS: The chest will be reported separately. Dense right lower lobe consolidation is noted with r ight middle lobe airspace opacity. Mildly displaced fractures of the lateral right sixth, seventh and eighth ribs are noted. No pneumoperitoneum is present. Mild gallbladder distention is noted without adjacent infiltration. There are no radiopaque stones. There is no evidence for traumatic injury to t he liver, spleen, adrenal glands or kidneys on this unenhanced examination. There is no peripancreati c infiltration. There is moderate left renal atrophy. Extensive vascular calcification is present. Th ere is no hydronephrosis. Aneurysmal dilatation of the infrarenal abdominal aorta, measuring approxim ate 4.4 x 3.3 cm is similar to CT of September 10, 2015. 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 Adjacent soft tissue may reflect perianeurysmal fibrosis. This is unchanged. There is no evidence for a bowel obstruction. No ascites is present. No hemoperit oneum or pneumoperitoneum is present. There is no acute lumbar spine or pelvic fracture. IMPRESSION: 1. No acute traumatic findings within the abdomen or pelvis on unenhanced exam. 2. Mild gallbladder distention without adjacent infiltration. 3. 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 Stable adjacent soft tissue whi ch may reflect perianeurysmal fibrosis. Electronically signed by: Kyree Harvey M.D. 03/04/2019 7:14 AM
[2019-03-04] MEDS: PRIMIDONE 50 MG TAB PO SCH (07:53)
[2019-03-04] MEDS: CYANOCOBALAMIN 500 MCG TABLET (VITAMIN B-12) PO SCH (07:53)
[2019-03-04] MEDS ORDERED: AZTREONAM 1,000 MG in DEXTROSE 5% 100 ML IV SCH (08:00)
[2019-03-04 08:28] LABS: Appearance Urine Cloudy (Clear); Bacteria Urine Automated Negative (Negative); Bilirubin Urine Negative (Negative); Blood Urine Trace (Negative); Color Urine Yellow; Glucose Urine UA Negative (Negative); Ketones Urine Negative (Negative); Leukocyte Esterase Urine Negative (Negative); Nitrite Urine Negative (Negative); Protein Urine 2+ (Negative); Specific Gravity Urine 1.023 (1.000-1.030); Urobilinogen Urine Negative (Negative)
[2019-03-04] MEDS ORDERED: SODIUM CHLORIDE 0.9% 250 ML IV PRN (08:37)
[2019-03-04] MEDS ORDERED: FAMOTIDINE 20 MG in SYRINGE 3 ML IV SCH (09:00)
[2019-03-04 09:33] LABS: Hematocrit (blood only) 22.2 % (42-52); Hemoglobin 7.3 g/dL (14.0-18.0); Reticulocyte % 1.6 % (0.5-2.0); Reticulocytes # 0.04 10^6/uL (0.02-0.10)
[2019-03-04] MEDS: LIDOCAINE 5% 1 PATCH TD SCH (09:51)
[2019-03-04] MEDS: OXYCODONE HCL IR 5 MG TAB (IMMEDIATE RELEASE) PO PRN ×2 (10:08→23:50)
[2019-03-04] MEDS: FERROUS SULFATE 325 MG TAB PO SCH (12:05)
[2019-03-04] MEDS: THIAMINE HCL 100 MG TAB PO SCH (12:05)
[2019-03-04 12:20] LABS: Basophils # (auto) 0.02 K/uL (0-0.2); Basophils % (auto) 0.1 %; Eosinophils # (auto) 0.05 K/uL (0-0.5); Eosinophils % (auto) 0.2 %; Hematocrit (blood only) 23.7 % (42-52); Hemoglobin 7.9 g/dL (14.0-18.0); Immature Granulocytes # (auto) 0.06 K/uL (0.00-0.02); Immature Granulocytes % (auto) 0.3 %; Lymphocytes # (auto) 1.45 K/uL (1.2-3.4); Lymphocytes % (auto) 7.1 %; Mean Corpuscular Hgb Conc 33.3 g/dL (32-36); Monocytes # (auto) 0.79 K/uL (0.11-0.59); Monocytes % (auto) 3.9 %; Neutrophils # (auto) 18.01 K/uL (1.4-6.5); Neutrophils % (auto) 88.4 %; Nucleated RBC # (auto) 0.03 K/uL (0-0); Nucleated RBC % (auto) 0.2 %; Platelet Count 450 K/uL (130-400); RDW Coefficient of Variation 14.7 % (11.5-14.5); RDW Standard Deviation 50.6 fL (36.4-46.3); Red Blood Count 2.52 M/uL (4.7-6.1); White Blood Count 20.38 K/uL (4.8-10.8)
[2019-03-04 12:46] LABS: Basophilic Stippling Occasional; Echinocytes 1+; Polychromasia 1+; Toxic Vacuolation 1+
--- NOTE | 2019-03-04 12:47 | Palliative Care Consultation ---
Date of Consultation March 04, 2019 Assessment & Plan (1) Goals of care, counseling/discussion: -78 year old male patient with a PMH hypertension, CAD s/p PTCI with stenting, and prior smoking history several years ago who presented to the ED on 02/25 after having sustained a fall 3 days prior while on a fishing trip. He underwent their assessment with CT images performed of the head, abdomen/pelvis, and chest. Chest CT concerning for nondisplaced fractures of the RIGHT sixth, seventh, and eighth ribs. No pneumothorax. No traumatic lung findings otherwise. Patient was adequately controlled with pain medication. He was offered admission at that time which he adamantly declined. The patient was sent home on pain medication. Per report, when he went home he continued to have pain and poor PO intake. He returned to the ED with worsening pain. CXR showed right fractures and right basilar infiltrate. CT chest showed RLL consolidation suggestive of pneumonia. Patient was admitted to ICU with hypoxic and hypercapnic respiratory failure and acute renal failure, with PH 7.18 and creatinine 4.21 on admission, was 1.8 on 02/25. Patient was trialed on bipap but he was unable to tolerate. He was placed on 6LNC until this morning when he was placed on high-flow nasal cannula at 35LPM and 40% FiO2. VS fairly stable this morning but patient is confused and somewhat lethargic. Apparently there was some discussion about code status and patient wanted to remain full code. Palliative care consulted to confirm code status and goals of care. -Met with patient in room 102. He is awake but confused and lethargic. Falls asleep frequently. Patient knows he is in the hospital but could not tell me why, kept talking about getting up to the bedside commode. He does admit to right sided rib pain, especially with any movement. He could not offer me any meaningful conversation about goals of care or code status. -I attempted to call patient's , Arabella, but no answer. -patient is significantly cachectic and frail appearing. His albumin is 2.4. Uncertain of the etiology for the protein-calorie malnutrition. There is no significant history of current alcohol intake or smoking -Continuing with high-flow nasal cannula at this time. Patient will remain full code until I'm able to speak with patient's or if patient's mental status clears enough to make decisions. Addendum 1525: -Spoke with patient's , Arabella, at bedside. Full update on patient condition given. Arabella is a retired RN, so she understands patient's medical condition. -Patient received Oxycodone for his pain and remains drowsy/lethargic, but is maintaining his oxygen saturation on high-flow. He is easily awakened to voice. Still confused. - stated that patient has never discussed his wishes as far as CPR, intubation, dialysis, etc. However, given patient's cachexia and broken ribs, also knowing what kind of person patient is, his is comfortable in making patient a DNR in the even of CARDIAC ARREST, but is okay with intubation if needed for respiratory failure. He will be a CONDITIONAL CODE. -Arabella states that patient has had a 60-70lb weight loss over the last 3-4 years. He was worked up by his PCP including a EGD and colonoscopy but all were negative. She states that patient does have a poor appetite. He typically eats two meals a day and sometimes only takes a few bites. As far as any alcohol use, states that patient did drink beer heavily, but hasn't drank anything for about 40 years. -At baseline, patient is usually completely independent and oriented x4. Patient does have hydrocodone/APAP 10/325mg, 1 to 1.5 tablets, four times a day. He has taken hydrocodone for the last 20-25 years, so he is quite tolerant and dependent on narcotics. She is not surprised that we are having trouble keeping his pain under control and understands that we cannot over-sedate him due to his tenuous respiratory status. -Patient's daughters will be in to see him in the next day or two. If further discussion regarding code status or GOC needs to be had, they can be involved. (2) Rib pain on right side: (3) Acute renal failure (ARF): (4) Acute respiratory failure with hypoxia and hypercapnia: (5) Pneumonia: Laterality: right Lung location: lower lobe of lung Pneumonia type: due to unspecified organism Qualified Code(s): J18.1 - Lobar pneumonia, unspecified organism Supervising Physician Co-Signing Physician Notes Chart reviewed, patient seen and examined -patient's and daughter at bedside collaborated with BREANNA Singh PE: Patient fatigued, cachectic HEENT: EOMI, hearing within normal limits Respiratory:. Diminished breath sounds bilaterally, on high flow nasal cannula CV: Tachycardic, no edema Abdomen: Not distended Neuro: Confused, fatigued Agree with above note, assessment and plan as per BREANNA Singh. Will continue to follow and assist patient and family with medical decision making History of Present Illness Attending Physician: Blaise Ruiz History of Present Illness This 78 year old male patient with a PMH hypertension, CAD s/p PTCI with stenting, and prior smoking history several years ago who presented to the ED on 02/25 after having sustained a fall 3 days prior while on a fishing trip. He underwent their assessment with CT images performed of the head, abdomen/pelvis, and chest. Chest CT concerning for nondisplaced fractures of the RIGHT sixth, seventh, and eighth ribs. No pneumothorax. No traumatic lung findings otherwise. Patient was adequately controlled with pain medication. He was offered admission at that time which he adamantly declined. The patient was sent home on pain medication. Per report, when he went home he continued to have pain and poor PO intake. He returned to the ED with worsening pain. CXR showed right fractures and right basilar infiltrate. CT chest showed RLL consolidation suggestive of pneumonia. Patient was admitted to ICU with hypoxic and hypercapnic respiratory failure and acute renal failure, with PH 7.18 and creatinine 4.21 on admission, was 1.8 on 02/25. Patient was trialed on bipap but he was unable to tolerate. He was placed on 6LNC until this morning when he was placed on high-flow nasal cannula at 35LPM and 40% FiO2. VS fairly stable this morning but patient is confused and somewhat lethargic. Apparently there was some discussion about code status and patient wanted to remain full code. Palliative care consulted to confirm code status and goals of care. Thank you kindly for this consult. I will follow as needed. Allergies Allergy/AdvReac Type Severity Reaction Status Date / Time cefuroxime Allergy Unknown rash Verified 03/04/19 02:19 Home Medications Home Medications Medication Instructions Recorded Confirmed Type amlodipine 5 mg PO BID 02/25/19 03/04/19 History aspirin 81 mg PO QAM 02/25/19 03/04/19 History atorvastatin 40 mg PO QPM 02/25/19 03/04/19 History buspirone 5 mg PO TID PRN 02/25/19 03/04/19 History cholecalciferol (vitamin D3) 1,000 unit PO QAM 02/25/19 03/04/19 History [Vitamin D3] cyanocobalamin (vitamin B-12) 1,000 mcg PO QAM 02/25/19 03/04/19 History [Vitamin B-12] gabapentin 600 mg PO HS 02/25/19 03/04/19 History metoprolol succinate 25 mg PO DAILY 02/25/19 03/04/19 History mirtazapine 45 mg PO HS 02/25/19 03/04/19 History nitroglycerin 0.4 mg SUBLINGUAL DIRECTED PRN 02/25/19 03/04/19 History omeprazole 40 mg PO QAM 02/25/19 03/04/19 History primidone 50 mg PO DAILY 02/25/19 03/04/19 History morphine 15 - 30 mg PO Q4 PRN 03/04/19 03/04/19 History Patient History Medical History Multiple rib fractures (Acute) Fall (Acute) CAD (coronary artery disease) (Acute) Chest pain (Acute) Hypertension (Chronic) Surgical History H/O heart artery stent (Acute) Family History Other No significant family history Social History Preferred Language: Citizen Of The [place] Communication Ability: Effective Beliefs That Will Affect Care: None Current Living Situation: Spouse Other Information That Helps Us Care for You: No Feels Safe at Home: Yes Safety Concerns: Feels Safe At This Time Smoking Status: Former smoker Hx Substance Use: No Review of Systems Constitutional: + weakness Ear, Nose, Mouth, Throat: no dysphagia Respiratory: + cough and + dyspnea on exertion Cardiovascular: no chest pain and no edema Gastrointestinal: no abdominal pain and no nausea Psychiatric: no anxiety Physical Exam Constitutional: + thin, + cachectic and + frail appearing; no acute distress ENMT: external ear and nose normal, oropharynx normal Neck: normal visual inspection Respiratory: normal respiratory effort (shallow breathing) Auscultation: + diminished lung sounds (R > L) Cardiovascular: RRR, no murmur, no edema Gastrointestinal (Abdomen): Inspection/Auscultation: abdomen normal to inspection and normal bowel sounds; abdomen not distended Percussion/Palpation: abdomen soft; abdomen nontender Neurologic: moves all extremities, awake and + confused Psychiatric: Orientation: alert; + not oriented x 3 Results & Data Vital Signs (Past 12 Hours) Vital Signs Temp Pulse Pulse Resp BP BP Pulse Ox 03/04/19 11:53 84 16 96 03/04/19 11:00 86 12 107/56 L 96 03/04/19 10:15 104 H 20 03/04/19 10:00 94 H 12 134/77 93 03/04/19 09:00 98 H 12 124/68 95 03/04/19 08:00 103 H 14 112/57 L 91 03/04/19 07:30 36.4 C L 108 H 14 111/78 90 03/04/19 07:03 105 H 20 98 03/04/19 07:00 103 H 15 119/62 96 03/04/19 06:05 36.3 C L 105 H 18 125/96 94 03/04/19 05:30 103 H 24 124/66 96 03/04/19 05:20 104 H 28 H 96 03/04/19 05:00 102 H 24 125/72 99 03/04/19 04:30 102 H 18 120/66 98 03/04/19 04:00 99 H 11 L 118/59 L 98 03/04/19 03:30 102 H 27 H 108/73 98 03/04/19 03:00 106 H 11 L 124/67 96 03/04/19 02:30 104 H 16 125/67 96 03/04/19 02:22 105 H 18 139/74 95 03/04/19 02:20 107 H 21 139/74 95 03/04/19 02:00 111 H 13 119/62 93 03/04/19 01:30 99 H 15 96 03/04/19 01:22 101 H 21 117/64 95 03/04/19 01:09 102 H 28 H 95 03/04/19 01:01 101 H 17 117/64 91 03/04/19 01:00 102 H 19 86 L Pulse Ox 03/04/19 11:53 03/04/19 11:00 03/04/19 10:15 93 03/04/19 10:00 03/04/19 09:00 03/04/19 08:00 03/04/19 07:30 03/04/19 07:03 03/04/19 07:00 03/04/19 06:05 03/04/19 05:30 03/04/19 05:20 03/04/19 05:00 03/04/19 04:30 03/04/19 04:00 03/04/19 03:30 03/04/19 03:00 03/04/19 02:30 03/04/19 02:22 03/04/19 02:20 03/04/19 02:00 03/04/19 01:30 03/04/19 01:22 03/04/19 01:09 03/04/19 01:01 03/04/19 01:00 Time Spent Midlevel 125 minutes with >50% of time spent at bedside with Patient and IDT discussing condition and GOC. Attending Time spent 15 minutes in addition to the above 125 minutes spent by BREANNA Pride for a total of 140 minutes with greater than 50% of the time spent at bedside providing support to family at bedside
[2019-03-04] MEDS: SODIUM BICARBONATE 8.4% 150 MEQ in WATER, STERILE 1,000 ML IV SCH ×2 (12:48→19:44)
[2019-03-04 12:54] LABS: Creatinine Clr Calc Pharmacy 15.2 ml/min; Est GFR (African American) 19.3; Est GFR (Non-African American) 16.6
[2019-03-04 12:59] LABS: Ferritin 262.1 ng/ml (8-388)
[2019-03-04 13:02] LABS: HCO3 VBG 23 mmol/L; PCO2 VBG 58 mmHg (38-50); PO2 VBG 19 mmHg; pH VBG 7.22 (7.36-7.41)
[2019-03-04 13:03] LABS: Vitamin B12 > 2000 pg/ml (211-911)
[2019-03-04 13:04] LABS: Folate (Folic Acid) 6.42 ng/ml (>5.38)
[2019-03-04 13:20] LABS: Oxygen Saturation VBG < 60.0 %
[2019-03-04] MEDS: AZTREONAM 1,000 MG in DEXTROSE 5% 100 ML IV SCH ×2 (15:35→23:51)
[2019-03-04 16:11] LABS: Hematocrit (blood only) 23.7 % (42-52); Hemoglobin 7.9 g/dL (14.0-18.0)
[2019-03-04 16:54] LABS: Alanine Aminotransferase 14 U/L (12-78); Albumin Level 2.1 gm/dl (3.4-5.0); Alkaline Phosphatase 97 U/L (45-117); Aspartate Aminotransferase 33 U/L (15-37); Bilirubin Direct < 0.1 mg/dl (0-0.2); Bilirubin,Total 0.2 mg/dl (0.2-1)
[2019-03-04 17:05] LABS: Total Protein 6.3 gm/dl (6.4-8.2)
[2019-03-04] MEDS ORDERED: FUROSEMIDE 40 MG in SYRINGE 0 ML IV ONE (20:30)
--- NOTE | 2019-03-04 21:38 | Hospitalist Progress Note ---
Date of Service March 04, 2019 Assessment & Plan (1) Acute respiratory failure with hypoxia and hypercapnia: Acute respiratory failure with hypoxia and hypercapnia/pneumonia/combined respiratory and metabolic acidosis- Admit to the intensive care unit. NPO Received vancomycin IV and Zosyn IV while in ED. Admitted on vancomycin IV and aztreonam IV. Aggressive pulmonary toilet. Consider discussion for thoracic/interscalene blocks for pain control. Low threshold for intubation if needed. We will change to high flow oxygen. Patient's had discussion with palliative care. Patient will be a DNR but will be intubated if required for resp. failure. (2) Pneumonia: See above (3) Acute kidney injury: Patient not had anything significant eat or drink over the past 3 days. He did receive a total 2 L normal saline in the ED. We will continue rehydration with normal saline and bicarb drip as noted above. (4) CAD (coronary artery disease): CAD/hypertension- Meds will be held due to n.p.o. state. Well-appearing IV Lopressor. (5) Hypertension: See above. (6) Multiple rib fractures: Pain control with morphine 2 mg IV every 3 hours as needed, pain close attention to blood pressure. (7) Sepsis: Treatment for pneumonia as noted above. (8) Hyperlipidemia LDL goal <70: Holding atorvastatin (9) Vitamin B12 deficiency: Holding B12 supplement (10) Anxiety: Concern regarding sedation with his present respiratory state. (11) GERD (gastroesophageal reflux disease): Placed on famotidine 20mg IV every 12 hours (12) Altered mental state: Secondary to sepsis (13) Admitted to intensive care unit: Admitted as noted above. Spent 35 minutes in management of patient. This included visit with patient, discussion with consultants and reviewing chart. Subjective Mr. Hilton remains confused this evening. Patient does not provide significant history. Review of Systems Review of Systems: Unobtainable due to mental health condition Physical Exam Physical Exam: The patient looks cachectic, lying in bed and in no acute distress. He appears to be confused. HEENT-- PERRL, EOMI, mucous membranes and oropharynx dry. Neck-- supple. No JVD. No bruits. Thyroid normal, trachea midline, no jerry opathy. Heart-- mildly tachycardic. No murmurs, rubs or gallops. Lungs-- decreased coarse breath sounds towards right base of right lung. Abdomen-- normal bowel sounds and soft. Nontender. Nondistended, no hernias or masses, no organomegaly. Extremities-- no cyanosis or clubbing. No edema. Dermatologic-- scattered ecchymoses Neurologic-- cranial nerves II through XII grossly intact Results & Data Vital Signs (Past 12 Hours) Vital Signs Temp Pulse Pulse Resp BP BP Pulse Ox 03/04/19 20:00 36.6 C 88 10 L 119/59 L 95 03/04/19 19:11 92 H 22 92 03/04/19 19:00 88 9 L 120/64 94 03/04/19 18:00 88 14 124/64 95 03/04/19 17:00 92 H 14 131/64 93 03/04/19 16:00 36.6 C 89 10 L 110/52 L 96 03/04/19 15:00 97 H 13 129/68 95 03/04/19 14:58 101 H 20 93 03/04/19 14:14 105 H 22 03/04/19 14:00 109 H 18 139/77 96 03/04/19 13:47 102 H 22 96 03/04/19 13:00 104 H 19 144/75 H 90 03/04/19 12:00 36.4 C L 85 16 113/59 L 98 03/04/19 11:53 84 16 96 03/04/19 11:00 86 12 107/56 L 96 03/04/19 10:15 104 H 20 03/04/19 10:00 94 H 12 134/77 93 Pulse Ox 03/04/19 20:00 03/04/19 19:11 03/04/19 19:00 03/04/19 18:00 03/04/19 17:00 03/04/19 16:00 03/04/19 15:00 03/04/19 14:58 03/04/19 14:14 94 03/04/19 14:00 03/04/19 13:47 03/04/19 13:00 03/04/19 12:00 03/04/19 11:53 03/04/19 11:00 03/04/19 10:15 93 03/04/19 10:00 (1) Multiple rib fractures Encounter type: initial encounter Fracture type: closed Laterality: right Qualified Code(s): S22.41XA - Multiple fractures of ribs, right side, initial encounter for closed fracture (2) Sepsis Sepsis type: sepsis due to unspecified organism Qualified Code(s): A41.9 - Sepsis, unspecified organism (3) Pneumonia Laterality: right Lung location: lower lobe of lung Pneumonia type: due to unspecified organism Qualified Code(s): J18.1 - Lobar pneumonia, unspecified organism
[2019-03-04 23:52] LABS: iSTAT Allen Test Pass; iSTAT Arterial Blood Gas HCO3 29 meg/L (19-24); iSTAT Carbon Dioxide 30 mEq/l (24-31); iSTAT FiO2 40 %; iSTAT Site R Radial
[2019-03-05] MEDS: SODIUM BICARBONATE 8.4% 150 MEQ in WATER, STERILE 1,000 ML IV SCH ×2 (00:05→02:06)
[2019-03-05 05:02] LABS: Basophils # (auto) 0.01 K/uL (0-0.2); Basophils % (auto) 0.1 %; Eosinophils # (auto) 0.16 K/uL (0-0.5); Eosinophils % (auto) 0.8 %; Hematocrit (blood only) 23.8 % (42-52); Hemoglobin 8.1 g/dL (14.0-18.0); Immature Granulocytes # (auto) 0.05 K/uL (0.00-0.02); Immature Granulocytes % (auto) 0.3 %; Lymphocytes # (auto) 0.98 K/uL (1.2-3.4); Lymphocytes % (auto) 5.1 %; Mean Corpuscular Volume 91.9 fL (80-100); Mean Platelet Volume 8.9 fL (7.4-10.4); Monocytes # (auto) 0.96 K/uL (0.11-0.59); Neutrophils # (auto) 16.94 K/uL (1.4-6.5); Neutrophils % (auto) 88.7 %; Platelet Count 422 K/uL (130-400); RDW Coefficient of Variation 14.4 % (11.5-14.5); RDW Standard Deviation 48.8 fL (36.4-46.3); Red Blood Count 2.59 M/uL (4.7-6.1)
[2019-03-05 05:12] LABS: INR 1.1 (0.9-1.1); Partial Thromboplastin Ratio 1.1; Partial Thromboplastin Time 30.8 Seconds (21.0-31.0); Prothrombin Time 10.9 Seconds (9.0-12.0)
--- NOTE | 2019-03-05 05:39 | Critical Care Progress Note ---
Date of Service March 05, 2019 Assessment & Plan (1) Acute renal failure (ARF): Reason Critically Ill: 78-year-old male with RIGHT lower middle lobe pneumonia in the setting of poor ventilatory effort secondary to multiple rib fractures in the setting of fall approximately 1 week ago. Patient with hypoxic respiratory failure and acute renal failure resulting in metabolic acidosis. NEURO - CAM ICU: negative AMS: Hospitalized elderly patient with anxiety, metabolic encephalopathy, infection, and narcotic use has multiple reasons for delirium Will continue to watch for now as we do not want to overly sedate patient given presentation for lack of ventilation. CARDIAC/VASCULAR - Has been consistently hypertensive for past 24 hours, history of CAD and previous stent placement Will consider restarting home amlodipine, atorvastatin, metoprolol, ASA 81 Tachycardic, but likely due to anxiety and agitation, patient does not endorse any chest pain or shortness of breath at rest and only mild rib pain on inspiration. RESPIRATORY - Acute hypoxic respiratory failure in the setting of RLL/RML Pneumonia: Pneumonia probably due to lack of ventilation 2/2 pain from rib fractures Repeat CT shows no worsening fractures. RIGHT middle and lower lobe pneumonias. Initially treated with Zosyn. Transitioned in the setting of acute renal failure to vancomycin and aztreonam. Discontinued vancomycin yesterday and will continue on aztreonam for a total of 10 days (03/14) Lidoderm patches over ribs to try to promote better respiratory effort Currently on high flow nasal cannula at 35 L/min Patient does wish to be intubated if necessary for respiratory failure only not for cardiopulmonary arrest GI/NUTRITION - Nutrition consult in Prophylaxis: Famotidine. RENAL/LYTES - ARF: Likely prerenal in the setting of hypovolemia, patient did not eat or drink for several days he tells me Patient's renal function continuing to improve with aggressive IV fluids IVF: normosol@125 ml/hr - Hdz in place - Strict I&Os. ENDO - No h/o DM or Thyroid Dz BSGs per unit protocol. ISS --> gtt per unit policy. HEME - Anemia: No evidence of acute bleeding on serial hemoglobin & hematocrit Will continue to monitor daily ID - RML/RLL PNA: Will continue with aztreonam, 10 days total therapy Patient remains afebrile Blood cultures with NGTD LINES/IV ACCESS - PIVs x2 DVT PROPHYLAXIS - SCDs (2) Admitted to intensive care unit: Reason Critically Ill: 78-year-old male with RIGHT lower middle lobe pneumonia in the setting of poor ventilatory effort secondary to multiple rib fractures in the setting of fall approximately 1 week ago. Patient with hypoxic respiratory failure and acute renal failure resulting in metabolic acidosis. NEURO - * CAM ICU: NEGATIVE * Aggitation: * Likely multifactorial in the setting of ARF, metabolic encephalopathy, infection, and narcotic use. * Denies heavy alcohol use however admits to occasional social use. Recently returned from "fish camp" * Will give trial dose of 32 mg phenobarbital for possible alcohol withdrawal associated agitation CARDIAC/VASCULAR - * h/o CAD, HTN, prior stenting. * Continue home Rx as tolerated. * EKG: NSR@100bpm. No ST/T-wave changes. * Restart home medication RESPIRATORY - * Acute hypoxic respiratory therapy in the setting of RLL/RML Pneumonia: * Likely 2/2 poor pulmonary toilet in the setting of rib fractures. * Repeat CT shows no worsening fractures. * RIGHT middle and lower lobe pneumonias. * Currently being treated with aztreonam * Aggressive pulmonary toilet. * Will discuss possible intubation and bronchoscopy to facilitate removal of secretions GI/NUTRITION - * Consider nutrition consult given patient's cachectic state. * Prophylaxis: Famotidine. RENAL/LYTES - * ARF: * Likely prerenal in the setting of hypovolemia. * Aggressive IVF Resuscitation. * No significant electrolyte derangements otherwise. * IVF: Discontinue fluids altogether and patient allowed to have ADA diet - * Discontinue Hdz ENDO - * No h/o DM or Thyroid Dz * BSGs per unit protocol. ISS --> gtt per unit policy. HEME - * Anemia: * Trend H&H ID - * RML/RLL PNA: * Aztreonam day 11/11 * Follow Procal LINES/IV ACCESS - * PIVs x2 DVT PROPHYLAXIS - * SCDs * Heparin [address] Rocha was resident physician during care of patient. I separately evaluated patient for braga portions of the history and the exam. I was present during the critical portion of medical decision making, and I discussed the case with the resident. I generally agree with the findings and plan. I have personally spent 35 minutes of critical care time in the direct management of this patient. This is a life/limb threatening event. This includes time spent evaluating patient, direct bedside care, chart review, placing orders, interpretation of diagnostic studies, discussion with consultants, patient, and/or family members regarding treatment decisions, as well as other required patient management activities. This time is exclusive of all separately billable procedures, and teaching time and separate from and in addition to any other critical care service time. (3) Altered mental state: (4) GERD (gastroesophageal reflux disease): (5) Anxiety: (6) Vitamin B12 deficiency: (7) Hyperlipidemia LDL goal <70: (8) Acute kidney injury: (9) Acute respiratory failure with hypoxia and hypercapnia: (10) Pneumonia: (11) Fracture, ribs: (12) Hypoxia: (13) Acidosis: (14) Sepsis: (15) Renal failure: (16) Hyperkalemia: (17) Fall: (18) Metabolic acidosis: (19) Goals of care, counseling/discussion: (20) Rib pain on right side: Subjective Usman Hilton is very confused this morning, he's asking me if his pulse ox is a secret control switch for his IV. He is also very anxious. Reports tolerable pain on his right side and no other complaints. Daughter came in later in the day and said that patient and his are both terrible historians. He never fell at [facility] but rather in the hospital. He also has in fact been smoking and possibly drinking up until recently. She knows he's been smoking up until admission and knows he has a history of drinking but hasn't seen him drink recently. One daughter lives in [place] one in [place], but the local daughter will be moving to [place] soon. They are having discussions with patient and about going into assisted living in one of those locations. Review of Systems Constitutional: no fever and no chills Ear, Nose, Mouth, Throat: High flow nasal cannula in place, no abnormalities, no sign of trauma Respiratory: no cough and no dyspnea Cardiovascular: no chest pain and no dyspnea (No dyspnea reported by patient despite high flow nasal cannula requirement) Gastrointestinal: no abdominal pain, no nausea and no vomiting Musculoskeletal: Some pain over right side of chest over fracture Integumentary: Skin intact, no rashes Physical Exam Constitutional: + thin, + cachectic and + frail appearing; no acute distress ENMT: external ear and nose normal, oropharynx normal Neck: normal visual inspection Respiratory: normal respiratory effort (shallow breathing) Auscultation: + diminished lung sounds (R > L) and + crackles (bases) Cardiovascular: RRR, no murmur, no edema Gastrointestinal (Abdomen): Inspection/Auscultation: abdomen normal to inspection and normal bowel sounds; abdomen not distended Percussion/Pal pation: abdomen soft; abdomen nontender Neurologic: moves all extremities, awake and + confused Psychiatric: Orientation: alert, oriented to person and oriented to place; + not oriented to time and + uncooperative Results & Data Vital Signs (Past 12 Hours) Vital Signs Temp Pulse Pulse Resp BP Pulse Ox 03/05/19 05:01 107 H 18 147/79 H 90 03/05/19 05:00 105 H 17 92 03/05/19 04:30 110 H 18 91 03/05/19 04:01 115 H 16 142/67 H 92 03/05/19 04:00 36.8 C 112 H 21 91 03/05/19 03:30 112 H 17 92 03/05/19 03:01 111 H 17 90 03/05/19 03:00 36.7 C 113 H 19 148/81 H 90 03/05/19 02:30 111 H 17 91 03/05/19 02:01 114 H 23 91 03/05/19 02:00 112 H 20 155/75 H 91 03/05/19 01:30 111 H 14 91 03/05/19 01:01 112 H 18 92 03/05/19 01:00 110 H 16 141/78 H 92 03/05/19 00:30 113 H 19 93 03/05/19 00:01 108 H 12 93 03/05/19 00:00 111 H 17 153/77 H 94 03/04/19 23:30 113 H 18 95 03/04/19 23:01 115 H 20 90 03/04/19 23:00 36.7 C 113 H 15 143/72 H 91 03/04/19 22:30 113 H 15 91 03/04/19 22:00 111 H 15 148/75 H 92 03/04/19 21:00 117 H 20 147/79 H 95 03/04/19 20:00 36.6 C 88 10 L 119/59 L 95 03/04/19 19:11 92 H 22 92 03/04/19 19:00 88 9 L 120/64 94 03/04/19 18:00 88 14 124/64 95 Critical Care Time Critical Care Time: Yes Total Critical Care Time: 35 Resident Activity Tracking Resident Involvement: Resident Care Provided Care Provided: Adult Hospital Medicine (1) Fracture, ribs Encounter type: initial encounter Fracture type: closed Laterality: right Rib fracture type: multiple ribs Qualified Code(s): S22.41XA - Multiple fractures of ribs, right side, initial encounter for closed fracture (2) Renal failure Acute renal failure type: unspecified Renal failure chronicity: acute Qualified Code(s): N17.9 - Acute kidney failure, unspecified (3) Sepsis Sepsis type: sepsis due to unspecified organism Qualified Code(s): A41.9 - Sepsis, unspecified organism (4) Pneumonia Laterality: right Lung location: lower lobe of lung Pneumonia type: due to unspecified organism Qualified Code(s): J18.1 - Lobar pneumonia, unspecified organism
[2019-03-05 05:53] LABS: Albumin Globulin Ratio 0.5 (0.9-2); BUN Creatinine Ratio 20.3 (10-20); Bilirubin,Total 0.3 mg/dl (0.2-1); Calcium 8.2 mg/dl (8.5-10.1); Creatinine Clr Calc Pharmacy 20.3 ml/min; Est GFR (African American) 27.3; Est GFR (Non-African American) 23.6; Globulin 4.2 gm/dl (2.5-4.0); Potassium 3.8 mmol/L (3.5-5.1); Total Protein 6.2 gm/dl (6.4-8.2)
[2019-03-05] MEDS ORDERED: NORMOSOL-R 1,000 ML IV SCH (06:15)
[2019-03-05] MEDS: OXYCODONE HCL IR 5 MG TAB (IMMEDIATE RELEASE) PO PRN ×3 (06:32→17:48)
[2019-03-05] MEDS: ALBUT/IPRATROP 3MG/0.5MG NEB 3 ML VIAL NEB SCH ×4 (07:02→19:30)
[2019-03-05] MEDS: PRIMIDONE 50 MG TAB PO SCH (08:00)
[2019-03-05] MEDS: CYANOCOBALAMIN 500 MCG TABLET (VITAMIN B-12) PO SCH (08:00)
[2019-03-05] MEDS: FERROUS SULFATE 325 MG TAB PO SCH (08:00)
[2019-03-05] MEDS: LIDOCAINE 5% 1 PATCH TD SCH (08:00)
[2019-03-05] MEDS: THIAMINE HCL 100 MG TAB PO SCH (08:00)
--- NOTE | 2019-03-05 08:00 | XRay Report ---
SINGLE VIEW CHEST CLINICAL HISTORY: Follow-up pneumonia. FINDINGS: An AP, portable, upright chest radiograph is compared to chest x-ray and chest CT dated 03/04. The examination is degraded by portable technique and patient rotation. The cardiomediastinal silhouette is unremarkable, noting atherosclerotic calcification of the thoracic aorta. Emphysema an d chronic interstitial thickening are again noted. Dense airspace consolidation is again seen at the right lung base. This is modestly increased from yesterday. There is a right pleural effusion. Atelec tasis is noted at the left lung base. No pneumothorax is seen. The skeletal structures are osteopenic . Right-sided rib fractures are again noted. IMPRESSION: 1. There is increasingly confluent airspace consolidation at the right lung base with a small right p leural effusion. The appearance is typical for pneumonia/aspiration pneumonitis. Radiographic follow- up to resolution is recommended. 2. Emphysema. Electronically signed by: Andrew Watkins M.D. 03/05/2019 7:59 AM
[2019-03-05] MEDS: AZTREONAM 1,000 MG in DEXTROSE 5% 100 ML IV SCH ×2 (08:01→16:36)
[2019-03-05] MEDS: FAMOTIDINE 20 MG in SYRINGE 3 ML IV SCH (08:02)
[2019-03-05] MEDS ORDERED: PHENobarbital 32.4 MG TAB PO SCH (09:15)
[2019-03-05] MEDS ORDERED: NITROGLYCERIN SL 0.4 MG/TAB TAB SL PRN (09:18)
--- NOTE | 2019-03-05 09:33 | Palliative Care Progress Note ---
Date of Service March 05, 2019 Assessment & Plan (1) Goals of care, counseling/discussion: -Patient remains confused today, but is more alert. -Still on high-flow nasal cannula, now at 40LPM and 50% FiO2. -Has not been able to get out of bed yet. Extremely weak. -Will have formal [employer] evaluation today or tomorrow to assess for aspiration. -Code status was discussed yesterday with patient's , Arabella. Patient not able to comprehend complex medical situations or decision making at this time. (2) Rib pain on right side: (3) Acute renal failure (ARF): (4) Acute respiratory failure with hypoxia and hypercapnia: (5) Pneumonia: Subjective Patient remains on high-flow nasal cannula at 40LPM and 40% FiO2. He is more alert, but remains confused today. No family at bedside. Review of Systems Review of Systems: Patient c/o rib pain and weakness. Denies SOB, chest pain, N/V. Physical Exam Constitutional: + thin, + cachectic and + frail appearing; no acute distress ENMT: external ear and nose normal, oropharynx normal Neck: normal visual inspection Respiratory: normal respiratory effort (shallow breathing) Auscultation: + crackles (bases) Cardiovascular: RRR, no murmur, no edema Gastrointestinal (Abdomen): Inspection/Auscultation: abdomen normal to inspection and normal bowel sounds; abdomen not distended Percussion/Palpation: abdomen soft; abdomen nontender Neurologic: moves all extremities, awake and + confused Psychiatric: Orientation: alert; + not oriented x 3 Results & Data Vital Signs (Past 12 Hours) Vital Signs Temp Pulse Resp BP Pulse Ox 03/05/19 07:03 18 03/05/19 05:01 107 H 18 147/79 H 90 03/05/19 05:00 105 H 17 92 03/05/19 04:30 110 H 18 91 03/05/19 04:01 115 H 16 142/67 H 92 03/05/19 04:00 36.8 C 112 H 21 91 03/05/19 03:30 112 H 17 92 03/05/19 03:01 111 H 17 90 03/05/19 03:00 36.7 C 113 H 19 148/81 H 90 03/05/19 02:30 111 H 17 91 03/05/19 02:01 114 H 23 91 03/05/19 02:00 112 H 20 155/75 H 91 03/05/19 01:30 111 H 14 91 03/05/19 01:01 112 H 18 92 03/05/19 01:00 110 H 16 141/78 H 92 03/05/19 00:30 113 H 19 93 03/05/19 00:01 108 H 12 93 03/05/19 00:00 111 H 17 153/77 H 94 03/04/19 23:30 113 H 18 95 03/04/19 23:01 115 H 20 90 03/04/19 23:00 36.7 C 113 H 15 143/72 H 91 03/04/19 22:30 113 H 15 91 03/04/19 22:00 111 H 15 148/75 H 92 Time Spent Midlevel 35 minutes with >50% of the time spent at bedside with patient and ICU staff/IDT discussing condition and GOC. (1) Pneumonia Laterality: right Lung location: lower lobe of lung Pneumonia type: due to unspecified organism Qualified Code(s): J18.1 - Lobar pneumonia, unspecified organism
[2019-03-05 10:15] LABS: Patient Temperature 36.6; iSTAT Art Bld Gas pCO2 Correct 49 mmHg (35-46); iSTAT Arterial Blood Gas pCO2 50 mmHg (35-46); iSTAT Arterial Blood Gas pH 7.37 (7.35-7.45)
[2019-03-05] MEDS: METOPROLOL SUCC 25MG EXT REL TAB PO SCH (10:36)
[2019-03-05] MEDS: PANTOprazole 40 MG TAB PO SCH (10:43)
[2019-03-05] MEDS: CHOLECALCIFEROL 1,000 UNITS TAB PO SCH (10:43)
[2019-03-05] MEDS: ASPIRIN 81 MG ECTAB PO SCH (10:43)
[2019-03-05] MEDS: HEPARIN SOD 5,000 UNIT/0.5 ML VIAL SQ SCH ×2 (10:44→21:16)
[2019-03-05] MEDS: FOLIC ACID 1 MG TAB PO SCH (10:44)
[2019-03-05] MEDS: MIRTAZAPINE SOLTAB 15 MG PO SCH (21:14)
[2019-03-05] MEDS: GABAPENTIN 300 MG CAP PO SCH (21:15)
[2019-03-05] MEDS: AMLODIPINE BESYLATE 5 MG TAB PO SCH (21:15)
[2019-03-05] MEDS: ATORVASTATIN 40 MG TAB PO SCH (21:15)
--- NOTE | 2019-03-05 22:32 | Hospitalist Progress Note ---
Date of Service March 05, 2019 Assessment & Plan (1) Acute respiratory failure with hypoxia and hypercapnia: Acute respiratory failure with hypoxia and hypercapnia/pneumonia/combined respiratory and metabolic acidosis- Admitted to the intensive care unit. Received vancomycin IV and Zosyn IV while in ED. Admitted on vancomycin IV and aztreonam IV. Aggressive pulmonary toilet. Consider discussion for thoracic/interscalene blocks for pain control. Discontinued vancomycin yesterday and will continue on aztreonam for a total of 10 days (03/14) Low threshold for intubation if needed. will continue high flow oxygen. Patient's had discussion with palliative care. Patient will be a DNR but will be intubated if required for resp. failure. (2) Pneumonia: See above (3) Acute kidney injury: Patient not had anything significant eat or drink over the past 3 days. He did receive a total 2 L normal saline in the ED. We will continue rehydration with normal saline. (4) CAD (coronary artery disease): CAD/hypertension- Meds will be held due to n.p.o. state. Well-appearing IV Lopressor. (5) Hypertension: See above. (6) Multiple rib fractures: Pain control with morphine 2 mg IV every 3 hours as needed, pain close attention to blood pressure. (7) Sepsis: Treatment for pneumonia as noted above. (8) Hyperlipidemia LDL goal <70: Holding atorvastatin (9) Vitamin B12 deficiency: Holding B12 supplement (10) Anxiety: Concern regarding sedation with his present respiratory state. (11) GERD (gastroesophageal reflux disease): Placed on famotidine 20mg IV every 12 hours (12) Altered mental state: Secondary to sepsis (13) Admitted to intensive care unit: Admitted as noted above. Spent 25 minutes in management of patient. Subjective Patient continues to be disoriented. Patient does not report to be SOB. He is a poor historian Review of Systems Review of Systems: Unobtainable due to mental health condition Physical Exam Physical Exam: The patient looks cachectic, lying in bed and in no acute distress. He appears to be confused. HEENT-- PERRL, EOMI, mucous membranes and oropharynx dry. Neck-- supple. No JVD. No bruits. Thyroid normal, trachea midline, no adenopathy. Heart-- mildly tachycardic. No murmurs, rubs or gallops. Lungs-- decreased coarse breath sounds towards right base of right lung. Abdomen-- normal bowel sounds and soft. Nontender. Nondistended, no hernias or masses, no organomegaly. Extremities-- no cyanosis or clubbing. No edema. Dermatologic-- scattered ecchymoses Neurologic-- cranial nerves II through XII grossly intact Results & Data Vital Signs (Past 12 Hours) Vital Signs Temp Pulse Pulse Resp BP BP Pulse Ox 03/05/19 19:43 102 H 20 94 03/05/19 19:33 102 H 20 95 03/05/19 18:00 107 H 20 157/84 H 97 03/05/19 17:00 37.3 C 115 H 14 151/80 H 94 03/05/19 16:00 105 H 19 144/73 H 96 03/05/19 15:49 104 H 18 03/05/19 15:47 104 H 18 94 03/05/19 15:00 107 H 12 138/69 90 03/05/19 14:00 115 H 14 155/87 H 93 03/05/19 13:00 111 H 19 141/74 H 93 03/05/19 12:00 36.7 C 120 H 20 132/81 99 03/05/19 11:57 120 H 20 90 03/05/19 11:00 121 H 16 141/75 H 92 Pulse Ox 03/05/19 19:43 03/05/19 19:33 03/05/19 18:00 03/05/19 17:00 03/05/19 16:00 03/05/19 15:49 94 03/05/19 15:47 03/05/19 15:00 03/05/19 14:00 03/05/19 13:00 03/05/19 12:00 03/05/19 11:57 03/05/19 11:00 (1) Multiple rib fractures Encounter type: initial encounter Fracture type: closed Laterality: right Qualified Code(s): S22.41XA - Multiple fractures of ribs, right side, initial encounter for closed fracture (2) Sepsis Sepsis type: sepsis due to unspecified organism Qualified Code(s): A41.9 - Sepsis, unspecified organism (3) Pneumonia Laterality: right Lung location: lower lobe of lung Pneumonia type: due to unspecified organism Qualified Code(s): J18.1 - Lobar pneumonia, unspecified organism
[2019-03-06] MEDS: AZTREONAM 1,000 MG in DEXTROSE 5% 100 ML IV SCH ×3 (01:17→16:20)
[2019-03-06] MEDS: OXYCODONE HCL IR 5 MG TAB (IMMEDIATE RELEASE) PO PRN ×2 (01:21→06:17)
[2019-03-06 05:14] LABS: Basophils # (auto) 0.01 K/uL (0-0.2); Basophils % (auto) 0.1 %; Eosinophils # (auto) 0.09 K/uL (0-0.5); Eosinophils % (auto) 0.5 %; Hematocrit (blood only) 26.5 % (42-52); Immature Granulocytes # (auto) 0.05 K/uL (0.00-0.02); Immature Granulocytes % (auto) 0.3 %; Lymphocytes % (auto) 6.6 %; Mean Corpuscular Volume 92.3 fL (80-100); Mean Platelet Volume 9.2 fL (7.4-10.4); Monocytes # (auto) 1.06 K/uL (0.11-0.59); Monocytes % (auto) 6.4 %; Neutrophils # (auto) 14.27 K/uL (1.4-6.5); Neutrophils % (auto) 86.1 %; Platelet Count 532 K/uL (130-400); RDW Coefficient of Variation 14.2 % (11.5-14.5); Red Blood Count 2.87 M/uL (4.7-6.1); White Blood Count 16.58 K/uL (4.8-10.8)
[2019-03-06 05:16] LABS: INR 1.1 (0.9-1.1); Prothrombin Time 11.1 Seconds (9.0-12.0)
[2019-03-06 05:38] LABS: Albumin Level 2.1 gm/dl (3.4-5.0); BUN Creatinine Ratio 20.8 (10-20); Calcium 8.9 mg/dl (8.5-10.1); Creatinine Clr Calc Pharmacy 26.2 ml/min; Est GFR (African American) 37.2; Est GFR (Non-African American) 32.1; Magnesium 1.3 mg/dl (1.8-2.4); Potassium 3.5 mmol/L (3.5-5.1)
--- NOTE | 2019-03-06 05:40 | Critical Care Progress Note ---
Date of Service March 06, 2019 Assessment & Plan (1) Acute renal failure (ARF): (2) Admitted to intensive care unit: Reason Critically Ill: 78-year-old male with RIGHT lower middle lobe pneumonia in the setting of poor ventilatory effort secondary to multiple rib fractures in the setting of fall approximately 1 week ago. Patient with hypoxic respiratory failure and acute renal failure resulting in metabolic acidosis. NEURO - * CAM ICU: NEGATIVE * Agitation: Improving * Likely multifactorial in the setting of ARF, metabolic encephalopathy, infection, and narcotic use. * Denies heavy alcohol use however admits to occasional social use. Recently returned from "[employer]" -Additional history from daughter reports that there was no fish camp * Will give trial dose of 32 mg phenobarbital for possible alcohol withdrawal associated agitation -No real change with phenobarbital, do not believe the patient is withdrawing from alcohol CARDIAC/VASCULAR - * h/o CAD, HTN, prior stenting. * Continue home Rx as tolerated. * Increase beta-awilda to 50 mg daily RESPIRATORY - * Acute hypoxic respiratory therapy in the setting of RLL/RML Pneumonia: * Likely 2/2 poor pulmonary toilet in the setting of rib fractures. * Repeat CT shows no worsening fractures. * RIGHT middle and lower lobe pneumonias. * Currently being treated with aztreonam * Aggressive pulmonary toilet. * Will discuss possible intubation and bronchoscopy to facilitate removal of secretions -Family meeting with palliative regarding this at 11 tentatively GI/NUTRITION - * Consider nutrition consult given patient's cachectic state. -Passed swallow study -Additional calorie counts * Prophylaxis: Famotidine. RENAL/LYTES - * ARF: Improving * Likely prerenal in the setting of hypovolemia. ENDO - * No h/o DM or Thyroid Dz * BSGs per unit protocol. ISS --> gtt per unit policy. HEME - * Anemia: ID - * RML/RLL PNA: * Aztreonam day 3/10 * Follow [facility] LINES/IV ACCESS - * PIVs x2 DVT PROPHYLAXIS - * SCDs * Heparin [address] Rocha was resident physician during care of patient. I separately evaluated patient for braga portions of the history and the exam. I was present during the critical portion of medical decision making, and I discussed the case with the resident. I generally agree with the findings and plan. Patient's critical care needs have largely resolved, however he is not showing significant signs of clinical improvement. He remains to have significant right lower and right middle lobe infiltrates and questionable mucoid impaction. Patient continues to have worsening functional status at baseline. I do not believe the patient would facilitate a awake bronchoscopy through CPAP with sedation as becomes disinhibited and aggressive, if he were to proceed with bronchoscopy for impaction clearance I would intubate the patient would not have a secured airway, risks associated include inability to liberate from the ventilator given Sarcopena and poor functional status. I have personally spent 40 minutes of critical care time in the direct management of this patient. This is a life/limb threatening event. This includes time spent evaluating patient, direct bedside care, chart review, pl acing orders, interpretation of diagnostic studies, discussion with consultants, patient, and/or family members regarding treatment decisions, as well as other required patient management activities. This time is exclusive of all separately billable procedures, and teaching time and separate from and in addition to any other critical care service time. (3) Altered mental state: (4) GERD (gastroesophageal reflux disease): (5) Anxiety: (6) Vitamin B12 deficiency: (7) Hyperlipidemia LDL goal <70: (8) Acute kidney injury: (9) Acute respiratory failure with hypoxia and hypercapnia: (10) Pneumonia: (11) Fracture, ribs: (12) Hypoxia: (13) Acidosis: (14) Sepsis: (15) Renal failure: (16) Hyperkalemia: (17) Fall: (18) Metabolic acidosis: (19) Goals of care, counseling/discussion: (20) Rib pain on right side: Supervising Physician Co-Signing Physician Notes I had an extensive discussion with the patient's and 2 daughters. The patient does not have capacity, he has waxing and waning mental status and is unable to teach back and I cannot fully confirm he understands the gravity of his decisions at this time. We discussed risks and benefits of bronchoscopy additionally risks and benefits of bronchoscopy through noninvasive ventilator versus securing the airway and proceeding with bronchoscopy. We also discussed the risks and benefits and patient's wishes with regards to essentially being at maximum therapy and what he would want done if he were to proceed with bronchoscopy with a definitive airway and the patient were unable to be liberated from the ventilator. All were in agreement that the patient still has a large desire to live and would want to undergo a therapeutic bronchoscopy for mucoid impaction clearance as well as microbiological studies to further elucidate and assist with clearance of airway secretions and classification of the pulmonary infiltrates. It was confirmed that the patient would not want resuscitation in event of cardiac arrest. Critical care time: 60 minutes this is in addition to previous critical care time Subjective Usman Hilton remains confused, nursing talked to daughter who reported that patient was confabulating about falling at the fishing camp. His also seemed to go along with the story. Daughter concerned about his ability to cope since she is moving to [place] and other daughter lives in [place]. Review of Systems Constitutional: no fever and no chills Respiratory: + dyspnea Cardiovascular: + chest pain (over ribs) Gastrointestinal: no abdominal pain, no nausea and no vomiting Physical Exam Constitutional: + ill appearing, + cachectic, + altered mental status, + frail appearing and cooperative; no acute distress ENMT: external ear and nose normal, oropharynx normal Neck: normal visual inspection Respiratory: normal respiratory effort (shallow breathing) Auscultation: + diminished lung sounds (R > L) and + crackles (bases) Cardiovascular: RRR, no murmur, no edema Gastrointestinal (Abdomen): Inspection/Auscultation: abdomen normal to inspection and normal bowel sounds; abdomen not distended Percussion/Palpation: abdomen soft; abdomen nontender Neurologic: moves all extremities, awake and + confused Psychiatric: Orientation: alert, oriented to person and oriented to place; + not oriented to time and + uncooperative Results & Data Vital Signs (Past 12 Hours) Vital Signs Temp Pulse Pulse Resp BP BP Pulse Ox 03/06/19 02:00 101 H 18 138/66 97 03/06/19 01:40 109 H 18 96 03/06/19 01:00 129 H 13 175/110 H 99 03/06/19 00:00 127 H 17 178/91 H 81 L 03/05/19 23:00 99 H 115 H 16 145/68 H 99 03/05/19 22:00 107 H 12 151/81 H 97 03/05/19 21:00 108 H 16 165/91 H 96 03/05/19 20:00 37.1 C 105 H 16 157/80 H 94 03/05/19 19:43 102 H 20 94 03/05/19 19:33 102 H 20 95 03/05/19 19:01 105 H 12 146/79 H 95 03/05/19 18:00 107 H 20 157/84 H 97 Critical Care Time Critical Care Time: Yes Total Critical Care Time: 100 Resident Activity Tracking Resident Involvement: Resident Care Provided Care Provided: Adult Hospital Medicine (1) Fracture, ribs Encounter type: initial encounter Fracture type: closed Laterality: right Rib fracture type: multiple ribs Qualified Code(s): S22.41XA - Multiple fractures of ribs, right side, initial encounter for closed fracture (2) Renal failure Acute renal failure type: unspecified Renal failure chronicity: acute Qualified Code(s): N17.9 - Acute kidney failure, unspecified (3) Sepsis Sepsis type: sepsis due to unspecified organism Qualified Code(s): A41.9 - Sepsis, unspecified organism (4) Pneumonia Laterality: right Lung location: lower lobe of lung Pneumonia type: due to unspecified organism Qualified Code(s): J18.1 - Lobar pneumonia, unspecified organism
[2019-03-06 05:49] LABS: Albumin Globulin Ratio 0.4 (0.9-2); Bilirubin,Total 0.4 mg/dl (0.2-1); Globulin 5.2 gm/dl (2.5-4.0); Total Protein 7.3 gm/dl (6.4-8.2)
[2019-03-06] MEDS ORDERED: POTASSIUM ACETATE 10 MEQ in 0.9 % SODIUM CHLORIDE 100 ML IV STA (06:29)
[2019-03-06] MEDS ORDERED: POTASSIUM CHLORIDE 20 MEQ TABCR PO STA (06:38)
[2019-03-06] MEDS: ALBUT/IPRATROP 3MG/0.5MG NEB 3 ML VIAL NEB SCH ×4 (07:12→19:01)
[2019-03-06] MEDS: MAGNESIUM SULFATE / D5W 1 GM/100 ML BAG IV SCH ×2 (07:27→08:41)
[2019-03-06] MEDS: CYANOCOBALAMIN 500 MCG TABLET (VITAMIN B-12) PO SCH (08:08)
[2019-03-06] MEDS: AMLODIPINE BESYLATE 5 MG TAB PO SCH ×2 (08:09→20:47)
[2019-03-06] MEDS: CHOLECALCIFEROL 1,000 UNITS TAB PO SCH (08:09)
[2019-03-06] MEDS: METOPROLOL SUCC 25MG EXT REL TAB PO SCH (08:09)
[2019-03-06] MEDS: FOLIC ACID 1 MG TAB PO SCH (08:10)
[2019-03-06] MEDS: ASPIRIN 81 MG ECTAB PO SCH (08:10)
[2019-03-06] MEDS: FERROUS SULFATE 325 MG TAB PO SCH (08:10)
[2019-03-06] MEDS: PANTOprazole 40 MG TAB PO SCH (08:10)
[2019-03-06] MEDS: HEPARIN SOD 5,000 UNIT/0.5 ML VIAL SQ SCH ×2 (08:11→20:46)
[2019-03-06] MEDS: THIAMINE HCL 100 MG TAB PO SCH (08:11)
[2019-03-06] MEDS: LIDOCAINE 5% 1 PATCH TD SCH (08:12)
[2019-03-06] MEDS: FAMOTIDINE 20 MG in SYRINGE 3 ML IV SCH (08:13)
--- NOTE | 2019-03-06 08:51 | XRay Report ---
XR chest 1V portable HISTORY: 78 years-old Male Rib fracture, pneumonia acute shortness of breath with pneumonia COMPARISON: Chest radiograph 03/05/2019, chest CT 03/04/2019 TECHNIQUE: Portable AP view of the chest FINDINGS: Cardiac mediastinal and hilar silhouettes are unchanged. Calcification of the thoracic aortic arch. T here is no pneumothorax. Moderate emphysema. Suspected trace right pleural effusion. Right greater th an left bibasilar and right midlung opacities persist. Slightly improved aeration of the right lung b ase. IMPRESSION: 1. Right greater than left bibasilar and right midlung airspace opacities redemonstrated compatible w ith pneumonia. There is slightly improved aeration of the right lung base. 2. Trace right pleural effusion. 3. Emphysema. The above report was generated using voice recognition software. It may contain grammatical, syntax o r spelling errors. Electronically signed by: Gilles Mckinley M.D. 03/06/2019 8:49 AM
[2019-03-06] MEDS ORDERED: METOPROLOL SUCC 25MG EXT REL TAB PO ONE (10:00)
[2019-03-06] MEDS ORDERED: fentaNYL citrate 100 MCG/2 ML CARP IV ONE (10:06)
[2019-03-06] MEDS ORDERED: ROCURONIUM BROMIDE 10 MG/ML 5 ML VIAL IV ONE (10:06)
[2019-03-06 12:17] LABS: iSTAT Allen Test Pass; iSTAT Arterial Blood Gas HCO3 34 meg/L (19-24); iSTAT Arterial Blood Gas pCO2 50 mmHg (35-46); iSTAT Arterial Blood Gas pH 7.44 (7.35-7.45); iSTAT Carbon Dioxide 35 mEq/l (24-31); iSTAT FiO2 40 %; iSTAT Site R Radial
[2019-03-06 12:17] LABS: iSTAT Allen Test Pass; iSTAT Arterial Blood Gas HCO3 35 meg/L (19-24); iSTAT Arterial Blood Gas pCO2 45 mmHg (35-46); iSTAT Arterial Blood Gas pH 7.49 (7.35-7.45); iSTAT Carbon Dioxide 36 mEq/l (24-31); iSTAT Site L Radial
[2019-03-06 12:31] LABS: iSTAT Allen Test Pass; iSTAT Arterial Blood Gas HCO3 35 meg/L (19-24); iSTAT Arterial Blood Gas pCO2 45 mmHg (35-46); iSTAT Arterial Blood Gas pH 7.49 (7.35-7.45); iSTAT Carbon Dioxide 36 mEq/l (24-31); iSTAT Site L Radial
[2019-03-06 12:31] LABS: iSTAT Allen Test Pass; iSTAT Arterial Blood Gas HCO3 34 meg/L (19-24); iSTAT Arterial Blood Gas pCO2 50 mmHg (35-46); iSTAT Arterial Blood Gas pH 7.44 (7.35-7.45); iSTAT Carbon Dioxide 35 mEq/l (24-31); iSTAT FiO2 40 %; iSTAT Site R Radial
--- NOTE | 2019-03-06 13:06 | Palliative Care Progress Note ---
Date of Service March 06, 2019 Assessment & Plan (1) Goals of care, counseling/discussion: -Patient remains about the same in regards to mental status. He is awake and oriented x3, but does have periods of hallucinations and cannot comprehend his medical condition or the severity of his illness. -Still on high-flow nasal cannula, now at 40LPM and 50% FiO2. -Patient is OOB today to bathroom and chair. -Passed his swallow evaluation and is eating. -Lengthy family meeting today with Dr. Domingo, myself, patient's , Arabella, and two daughters, Sonja and Allison. -At baseline, family describes that patient does have some mild cognitive deficits-- unable to dial a number on the phone, could not figure out how to use the TV remote that he has been using for decades, could not write a letter or send out a piece of mail, etc. They confirmed that patient has had extremely poor nutritional intake for years. states that patient would say that eating "tired him out." Family also described that patient is the type of person who would avoid any medical issues and did not like to seek medical treatment because he had multiple siblings who seemed fine, went into the hospital, and soon after. -Having said all that, the family believes patient still has a good quality of life and that patient would not be ready to "give up." They state that patient will not be able to live at home with his any more and will need placement after hospitalization, whatever the outcome may be. His care is becoming too much for to handle. However, patient would still want to proceed with full treatment at this time to try to get better. -After family meeting, decision was made to undergo elective intubation and bronchoscopy in hopes to clear out right lung. Goal will be to extubate as soon as possible. -Family also mentions the complicating factor that the patient's granddaughter is getting on Monday, so family will not be here likely Monday and Monday. -Will continue to follow. (2) Rib pain on right side: (3) Acute renal failure (ARF): (4) Acute respiratory failure with hypoxia and hypercapnia: (5) Pneumonia: Subjective Patient is about the same today in regards to his mental and respiratory status. He is out of bed now and in chair. Remains fairly oriented but still with periods of confusion and hallucinations. On high-flow nasal cannula at 40LPM and 50% FiO2. Review of Systems Constitutional: + weakness Respiratory: + cough and + dyspnea on exertion Physical Exam Constitutional: + thin, + cachectic and + frail appearing; no acute distress ENMT: external ear and nose normal, oropharynx normal Neck: normal visual inspection Respiratory: normal respiratory effort (shallow breathing) Auscultation: + diminished lung sounds (R > L) and + crackles (bases) Gastrointestinal (Abdomen): Inspection/Auscultation: abdomen normal to inspection and normal bowel sounds; abdomen not distended Percussion/Palpation: abdomen soft; abdomen nontender Neurologic: moves all extremities, awake and + confused Psychiatric: Orientation: + not oriented x 3 Results & Data Vital Signs (Past 12 Hours) Vital Signs Temp Pulse Pulse Resp BP Pulse Ox 03/06/19 12:00 36.5 C 117 H 16 112/73 100 03/06/19 11:09 95 H 20 90 03/06/19 11:08 20 90 03/06/19 11:00 95 H 13 142/83 H 96 03/06/19 10:00 122 H 16 113/65 98 03/06/19 09:00 116 H 16 138/86 94 03/06/19 08:00 37 C 130 H 19 145/96 H 98 03/06/19 07:13 18 100 03/06/19 07:00 100 H 11 L 133/76 99 03/06/19 06:00 103 H 10 L 145/78 H 97 03/06/19 05:00 115 H 18 147/97 H 95 03/06/19 04:01 37.1 C 125 H 13 174/99 H 94 03/06/19 03:00 98 H 20 144/71 H 97 03/06/19 02:00 101 H 18 138/66 97 03/06/19 01:40 109 H 18 96 03/06/19 01:00 129 H 13 175/110 H 99 Time Spent Midlevel 65 minutes with >50% of time spent at bedside with patient and family, as well as IDT, discussing condition and GOC. (1) Pneumonia Laterality: right Lung location: lower lobe of lung Pneumonia type: due to unspecified organism Qualified Code(s): J18.1 - Lobar pneumonia, unspecified organism
[2019-03-06] MEDS ORDERED: CONSULT PHARMACY STA ×2 (13:18→13:29)
[2019-03-06] MEDS ORDERED: GLYCOPYRROLATE 0.2 MG/ML VIAL IV ONE (13:30)
[2019-03-06] MEDS ORDERED: PROPOFOL 1,000 MG/100 ML VIAL IV SCH (13:31)
[2019-03-06] MEDS ORDERED: RAPID SEQUENCE INDUCTION BAG ONE (13:45)
[2019-03-06] MEDS ORDERED: NEOSTIGMINE METHYLSULFATE 1 MG/ML 10ML VIAL IV ONE (13:45)
[2019-03-06] MEDS ORDERED: ROCURONIUM BROMIDE 10 MG/ML 5 ML VIAL IV SCH (13:45)
[2019-03-06] MEDS ORDERED: fentaNYL citrate 100 MCG/2 ML VIAL IV STA (13:50)
[2019-03-06] MEDS ORDERED: NEOSTIGMINE METHYLSULFATE 1 MG/ML 10ML VIAL IV SCH (14:00)
--- NOTE | 2019-03-06 15:12 | Procedure Note ---
Procedure Note: Bronchoscopy Procedure Procedure date: October 06, 2018 Procedure: fiberoptic bronchoscopy Pre-procedure indication: Pulmonary infiltrate on radiographs Post-procedure Diagnosis: same as above Prior to Procedure: Informed Consent: The risks, benefits, indications, potential complications, and alternatives were explained to the patient's and daughters and informed consent obtained. Attending Staff: Tatyana Domingo DO Resident/APC: Not applicable Skin Prep: Not applicable Anesthesia: 60 mg propofol given in 15 mg aliquots during a continuous infusion, 100 mcg fentanyl IV x2. Patient had been administered 4 mg of rocuronium approximately 10 minutes prior to the end of the bronchoscopy procedure. At the end of bronchoscopy procedure the patient was able to produce tidal volumes of approximately 250 mL's, he was given a total of 0.6 mg glycopyrrolate in 0.2 mg aliquots and 2.5 mg neostigmine x2 which had improved his neuromuscular strength and the patient was ventilating approximately 18 L a minute with tidal volumes in the 400-500 range on continuous positive airway pressure 5 pressure support 5 of PEEP. The identity of the patient was confirmed and a bedside time out was performed. Description of Procedure: Fiberoptic bronchoscopy was performed via endotracheal tube. Bronchioalveolar lavage right upper, right middle and right lower lobes as well as left lower lobes was performed. Findings included: Thick yellow curd- like secretions in the larger airways concerning for possible aspiration, there was no significant mucoid impaction in the distal smaller airways. Bronchial brushing of the right middle lobe was performed. The secretions were easily suctionable without lavage. I opted to forego lavage to decrease the chance of pneumonitis or compromised oxygenation as a major goal was to have the patient extubated at her the end of airway clearance. Complications: None Specimens: Bronchial washings sent for culture and Gram stain, cytology, fungal elements, and AFB stain and culture. Estimated blood loss: Zero
--- NOTE | 2019-03-06 15:15 | Procedure Note ---
Procedure Note Date of Service March 06, 2019 Procedure Date: Noted above Procedure: Endotracheal intubation Pre-procedure Diagnosis: Acute hypoxic respiratory failure, infiltrates on chest x-ray, need for bronchoscopy Post-procedure Diagnosis: same as above Prior to Procedure: Informed Consent: Informed consent was obtained from the patient's as the patient has altered mental status Attending Staff: Tatyana Domingo DO The identity of the patient was confirmed and a bedside time out was performed. Description of Procedure: Patient was evaluated and required intubation for hypoxic respiratory failure. The patient was prepared in the usual fashion. A Salazar to laryngoscope was used. A 8.5 mm inner diameter endotrachial tube was placed endotracheally to 23 cm at the teeth. A grade 1 view was obtained. The endotracheal tube was noted to pass through the vocal cords. Chest rise was bilateral. Bilateral breath sounds were heard without air sounds in the abdomen. Mist was noted in the endotracheal tube. End-tidal CO2 measurement was positive. Bronchoscopic evaluation revealed proper endotracheal tube placement. After completion of the bronchoscopy the patient was observed given neuromuscular blockade reversal and successfully extubated with tidal volumes ranging 400 to 500 mL's Complications: None Findings: Not applicable Specimens: Not applicable Estimated blood loss: Zero Coding CPT Codes Resuscitation - Resuscitation: Endotracheal Intubation, emergency ([id number])
[2019-03-06] MEDS: GABAPENTIN 300 MG CAP PO SCH (20:47)
[2019-03-06] MEDS: ATORVASTATIN 40 MG TAB PO SCH (20:47)
[2019-03-06] MEDS: MIRTAZAPINE SOLTAB 15 MG PO SCH (20:48)
--- NOTE | 2019-03-06 22:20 | Hospitalist Progress Note ---
Date of Service March 06, 2019 Assessment & Plan (1) Acute respiratory failure with hypoxia and hypercapnia: Acute respiratory failure with hypoxia and hypercapnia/pneumonia/combined respiratory and metabolic acidosis- Admitted to the intensive care unit. Received vancomycin IV and Zosyn IV while in ED. Admitted on vancomycin IV and aztreonam IV. Aggressive pulmonary toilet. Consider discussion for thoracic/interscalene blocks for pain control. Discontinued vancomycin yesterday and will continue on aztreonam for a total of 10 days (03/14) Low threshold for intubation if needed. will continue high flow oxygen. Patient's had discussion with palliative care. Patient will be a DNR but will be intubated if required for resp. failure. (2) Pneumonia: See above (3) Acute kidney injury: Patient not had anything significant eat or drink over the past 3 days. He did receive a total 2 L normal saline in the ED. We will continue rehydration with normal saline. (4) CAD (coronary artery disease): CAD/hypertension- On metoprolol PO BID 50 MG (5) Hypertension: See above. (6) Multiple rib fractures: Pain control with morphine 2 mg IV every 3 hours as needed, pain close attention to blood pressure. (7) Sepsis: Treatment for pneumonia as noted above. (8) Hyperlipidemia LDL goal <70: RESTARTED ATROVASTATIN IN THE EVENING OF 03/05. (9) Vitamin B12 deficiency: Restarted home meds. (10) Anxiety: rESTARTED HOME MEDS. will monitor. (11) GERD (gastroesophageal reflux disease): Placed on famotidine 20mg IV every 12 hours (12) Altered mental state: Secondary to sepsis (13) Admitted to intensive care unit: Admitted as noted above. Spent 25 minutes in management of patient. Subjective Patient is a poor historian. He continues to be confused. He denies feeling SOB. Review of Systems Review of Systems: Unobtainable due to mental health condition Physical Exam Physical Exam: The patient looks cachectic, lying in bed and in no acute distress. He appears to be confused. HEENT-- PERRL, EOMI, mucous membranes and oropharynx dry. Neck-- supple. No JVD. No bruits. Thyroid normal, trachea midline, no adenopathy. Heart-- mildly tachycardic. No murmurs, rubs or gallops. Lungs-- decreased coarse breath sounds towards right base of right lung. Abdomen-- normal bowel sounds and soft. Nontender. Nondistended, no hernias or masses, no organomegaly. Extremities-- no cyanosis or clubbing. No edema. Dermatologic-- scattered ecchymoses Neurologic-- cranial nerves II through XII grossly intact Results & Data Vital Signs (Past 12 Hours) Vital Signs Temp Pulse Pulse Resp BP Pulse Ox 03/06/19 20:30 98 H 11 L 125/70 90 03/06/19 20:00 118 H 20 89 L 03/06/19 19:31 120 H 17 155/83 H 91 03/06/19 19:03 94 H 18 92 03/06/19 19:01 108 H 15 94 03/06/19 19:00 97 H 14 145/84 H 91 03/06/19 18:30 96 H 12 139/76 90 03/06/19 18:01 99 H 16 91 03/06/19 18:00 102 H 16 140/80 92 03/06/19 17:30 97 H 13 127/84 96 03/06/19 17:01 94 H 19 92 03/06/19 17:00 93 H 13 126/66 92 03/06/19 16:30 96 H 13 142/83 H 97 03/06/19 16:15 93 H 18 137/75 98 03/06/19 16:10 93 H 18 140/77 100 03/06/19 16:05 96 H 17 143/78 H 100 03/06/19 16:01 105 H 19 88 L 03/06/19 16:00 97 H 18 138/80 96 03/06/19 15:55 100 H 16 147/85 H 90 03/06/19 15:50 99 H 18 136/77 95 03/06/19 15:45 109 H 20 143/80 H 96 03/06/19 15:40 108 H 18 134/75 98 03/06/19 15:35 109 H 17 136/66 95 03/06/19 15:26 118 H 18 152/92 H 99 03/06/19 15:22 114 H 20 94 03/06/19 15:20 112 H 19 144/81 H 95 03/06/19 15:15 119 H 21 148/88 H 93 03/06/19 15:11 36.9 C 127 H 21 139/88 96 03/06/19 14:00 103 H 17 147/86 H 100 03/06/19 13:00 98 H 15 122/73 97 03/06/19 12:00 36.5 C 117 H 16 112/73 100 03/06/19 11:09 95 H 20 90 03/06/19 11:08 20 90 03/06/19 11:00 95 H 13 142/83 H 96 (1) Pneumonia Laterality: right Lung location: lower lobe of lung Pneumonia type: due to unspecified organism Qualified Code(s): J18.1 - Lobar pneumonia, unspecified organism (2) Multiple rib fractures Encounter type: initial encounter Fracture type: closed Laterality: right Qualified Code(s): S22.41XA - Multiple fractures of ribs, right side, initial encounter for closed fracture (3) Sepsis Sepsis type: sepsis due to unspecified organism Qualified Code(s): A41.9 - Sepsis, unspecified organism
[2019-03-07] MEDS: AZTREONAM 1,000 MG in DEXTROSE 5% 100 ML IV SCH ×4 (00:03→23:35)
[2019-03-07 05:17] LABS: Basophils # (auto) 0.01 K/uL (0-0.2); Basophils % (auto) 0.1 %; Eosinophils % (auto) 1.3 %; Hematocrit (blood only) 24.1 % (42-52); Immature Granulocytes # (auto) 0.07 K/uL (0.00-0.02); Immature Granulocytes % (auto) 0.5 %; Lymphocytes # (auto) 1.35 K/uL (1.2-3.4); Lymphocytes % (auto) 8.7 %; Mean Corpuscular Hgb Conc 33.2 g/dL (32-36); Mean Platelet Volume 9.5 fL (7.4-10.4); Monocytes # (auto) 1.02 K/uL (0.11-0.59); Monocytes % (auto) 6.6 %; Neutrophils % (auto) 82.8 %; Platelet Count 516 K/uL (130-400); RDW Coefficient of Variation 14.2 % (11.5-14.5); RDW Standard Deviation 48.3 fL (36.4-46.3); Red Blood Count 2.62 M/uL (4.7-6.1); White Blood Count 15.55 K/uL (4.8-10.8)
[2019-03-07 05:29] LABS: Prothrombin Time 10.5 Seconds (9.0-12.0)
[2019-03-07 05:37] LABS: iSTAT Allen Test Pass; iSTAT Arterial Blood Gas HCO3 32 meg/L (19-24); iSTAT Arterial Blood Gas pCO2 44 mmHg (35-46); iSTAT Arterial Blood Gas pH 7.47 (7.35-7.45); iSTAT Carbon Dioxide 34 mEq/l (24-31); iSTAT FiO2 40 %; iSTAT Site R Radial
[2019-03-07 05:48] LABS: Albumin Level 1.7 gm/dl (3.4-5.0); BUN Creatinine Ratio 20.4 (10-20); Calcium 8.9 mg/dl (8.5-10.1); Creatinine Clr Calc Pharmacy 28.1 ml/min; Est GFR (African American) 38.8; Est GFR (Non-African American) 33.5; Magnesium 1.7 mg/dl (1.8-2.4); Potassium 3.8 mmol/L (3.5-5.1)
[2019-03-07 05:51] LABS: Albumin Globulin Ratio 0.4 (0.9-2); Bilirubin,Total 0.3 mg/dl (0.2-1); Globulin 4.6 gm/dl (2.5-4.0); Total Protein 6.3 gm/dl (6.4-8.2)
[2019-03-07] MEDS ORDERED: MAGNESIUM SULFATE / D5W 1 GM/100 ML BAG IV ONE (06:15)
[2019-03-07] MEDS: ALBUT/IPRATROP 3MG/0.5MG NEB 3 ML VIAL NEB SCH ×4 (07:01→19:07)
--- NOTE | 2019-03-07 07:11 | Critical Care Progress Note ---
Date of Service March 07, 2019 Assessment & Plan (1) Acute renal failure (ARF): Reason Critically Ill: 78-year-old male with RIGHT lower middle lobe pneumonia in the setting of poor ventilatory effort secondary to multiple rib fractures in the setting of fall approximately 1 week ago. Patient with hypoxic respiratory failure and acute renal failure resulting in metabolic acidosis. NEURO - [facility] ICU: positive today AMS: Hospitalized elderly patient with anxiety, metabolic encephalopathy, infection, and narcotic use has multiple reasons for delirium Will continue to watch for now as we do not want to overly sedate patient given presentation for lack of ventilation. CARDIAC/VASCULAR - Has been consistently hypertensive for past 24 hours, history of CAD and previous stent placement Restarted home amlodipine, atorvastatin, metoprolol, ASA 81 Rates have come down somewhat, though still tachycardic at times; likely due to anxiety and agitation, patient does not endorse any chest pain or shortness of breath at rest and only mild rib pain on inspiration. RESPIRATORY - Acute hypoxic respiratory failure in the setting of RLL/RML Pneumonia: Minimal improvement however we are DC decreasing oxygen requirements Pneumonia probably due to lack of ventilation 2/2 pain from rib fractures Repeat CT shows no worsening fractures. RIGHT middle and lower lobe pneumonias. Initially treated with Zosyn. Transitioned in the setting of acute renal failure to vancomycin and aztreonam. Day 4 of aztreonam will continue to treat for a total of 10 days (03/13) Continuing with lidoderm patches over ribs, not complaining of pain as much this morning We have not been able to wean down patient's oxygen demand as much as we'd hoped currently on high flow nasal cannula at 40 L/min Attempted a therapeutic bronchoscopy yesterday afternoon, bronchoalveolar lavage sent for culture pending results. Patient does wish to be intubated if necessary for respiratory failure only not for cardiopulmonary arrest GI/NUTRITION - Nutrition consult in Prophylaxis: Famotidine. -Continue calorie counts, protein calorie malnutrition RENAL/LYTES - ARF: Improving Likely prerenal in the setting of hypovolemia, patient did not eat or drink for several days he tells me Patient's renal function continuing to improve likely secondary to volume expansion and increased perfusion IVF discontinued - Hdz discontinued yesterday, patient had retention overnight if continues with retention will replace Hdz as we are still recovering from acute kidney injury and do not want postobstructive process ENDO - No h/o DM or Thyroid Dz BSGs per unit protocol. ISS --> gtt per unit policy. HEME - Anemia: No evidence of acute bleeding on serial hemoglobin & hematocrit Will continue to monitor daily ID - RML/RLL PNA: Will continue with aztreonam; day 01/09 currently Patient remains afebrile Blood cultures with NGTD LINES/IV ACCESS - PIVs x2 DVT PROPHYLAXIS - SCDs If patient continues to maintain on regular nasal cannula would be stable for downgrade out of ICU. (2) Admitted to intensive care unit: (3) Altered mental state: (4) GERD (gastroesophageal reflux disease): (5) Anxiety: (6) Vitamin B12 deficiency: (7) Hyperlipidemia LDL goal <70: (8) Acute kidney injury: (9) Acute respiratory failure with hypoxia and hypercapnia: (10) Pneumonia: (11) Fracture, ribs: (12) Hypoxia: (13) Acidosis: (14) Sepsis: (15) Renal failure: (16) Hyperkalemia: (17) Fall: (18) Metabolic acidosis: (19) Goals of care, counseling/discussion: (20) Rib pain on right side: Supervising Physician Co-Signing Physician Notes Dr. Rocha was resident physician during care of patient. I separately evaluated patient for braga portions of the history and the exam. I was present during the critical portion of medical decision making, and I discussed the case with the resident. I generally agree with the findings and plan. Patient was discussed in multidisciplinary rounds, updated the family Subjective Woke Grow up from sleep this morning, he was very disoriented, didn't know where he was. Reported he did not feel short of breath or have any discomfort at this time. Review of Systems Constitutional: no fever and no chills Respiratory: no cough and no dyspnea Cardiovascular: no chest pain and no dyspnea Gastrointestinal: no abdominal pain, no nausea and no vomiting Physical Exam Constitutional: + ill appearing, + cachectic, + frail appearing, cooperative and comfortable; no acute distress Eyes: PERRL, conjunctivae normal, anicteric sclerae Respiratory: normal respiratory effort; no labored breathing Bronchial breath sounds bilaterally Cardiovascular: RRR, no murmur, no edema Gastrointestinal (Abdomen): Inspection/Auscultation: abdomen normal to inspection; abdomen not distended Percussion/Palpation: abdomen soft; abdomen nontender Skin: no rashes, warm and dry Results & Data Vital Signs (Past 12 Hours) Vital Signs Pulse Pulse Resp BP BP Pulse Ox 03/07/19 03:00 104 H 14 147/75 H 92 03/07/19 02:00 99 H 14 149/75 H 92 03/06/19 20:30 98 H 11 L 125/70 90 03/06/19 20:00 118 H 20 89 L 03/06/19 19:31 120 H 17 155/83 H 91 03/06/19 19:03 94 H 18 92 03/06/19 19:01 108 H 15 94 03/06/19 19:00 97 H 14 145/84 H 91 03/06/19 18:30 96 H 12 139/76 90 03/06/19 18:01 99 H 16 91 03/06/19 18:00 102 H 16 140/80 92 Resident Activity Tracking Resident Involvement: Resident Care Provided Care Provided: Adult Hospital Medicine (1) Fracture, ribs Encounter type: initial encounter Fracture type: closed Laterality: right Rib fracture type: multiple ribs Qualified Code(s): S22.41XA - Multiple fractures of ribs, right side, initial encounter for closed fracture (2) Renal failure Acute renal failure type: unspecified Renal failure chronicity: acute Qualified Code(s): N17.9 - Acute kidney failure, unspecified (3) Sepsis Sepsis type: sepsis due to unspecified organism Qualified Code(s): A41.9 - Sepsis, unspecified organism (4) Pneumonia Laterality: right Lung location: lower lobe of lung Pneumonia type: due to unspecified organism Qualified Code(s): J18.1 - Lobar pneumonia, unspecified organism
--- NOTE | 2019-03-07 07:26 | XRay Report ---
XR chest 1V portable HISTORY: 78 years-old Male Hypoxemic respiratory failure acute respiratory failure COMPARISON: Chest radiograph 03/06/2019, chest CT 03/04/2019 TECHNIQUE: Portable AP view of the chest FINDINGS: Patient is slightly rotated. Moderate emphysema with chronic interstitial coarsening. Cardiac mediast inal and hilar silhouettes are unchanged. Multifocal alveolar opacities throughout the right lung bas e and perihilar distribution appears similar to slightly progressed. Small right pleural effusion. Pr ogressive left lung base opacities. Acute appearing mildly displaced fractures of the posterior right sixth, seventh and eighth ribs are again noted. IMPRESSION: 1. Right perihilar and right lung base alveolar opacities appear similar to slightly progressed from comparison compatible with ongoing pneumonia. 2. Small right pleural effusion. 3. Progressive left basilar opacities suggestive of atelectasis or pneumonitis. 4. Emphysema. The above report was generated using voice recognition software. It may contain grammatical, syntax o r spelling errors. Electronically signed by: Gilles Mckinley M.D. 03/07/2019 7:24 AM
[2019-03-07] MEDS: CYANOCOBALAMIN 500 MCG TABLET (VITAMIN B-12) PO SCH (08:32)
[2019-03-07] MEDS: THIAMINE HCL 100 MG TAB PO SCH (08:32)
[2019-03-07] MEDS: CHOLECALCIFEROL 1,000 UNITS TAB PO SCH (08:32)
[2019-03-07] MEDS: HEPARIN SOD 5,000 UNIT/0.5 ML VIAL SQ SCH ×2 (08:33→20:40)
[2019-03-07] MEDS: PANTOprazole 40 MG TAB PO SCH (08:33)
[2019-03-07] MEDS: ASPIRIN 81 MG ECTAB PO SCH (08:33)
[2019-03-07] MEDS: METOPROLOL SUCC 25MG EXT REL TAB PO SCH (08:33)
[2019-03-07] MEDS: FERROUS SULFATE 325 MG TAB PO SCH (08:33)
[2019-03-07] MEDS: AMLODIPINE BESYLATE 5 MG TAB PO SCH ×2 (08:33→20:40)
[2019-03-07] MEDS: LIDOCAINE 5% 1 PATCH TD SCH (08:33)
[2019-03-07] MEDS: FOLIC ACID 1 MG TAB PO SCH (08:33)
[2019-03-07] MEDS: OXYCODONE HCL IR 5 MG TAB (IMMEDIATE RELEASE) PO PRN ×3 (12:30→23:53)
[2019-03-07] MEDS: GABAPENTIN 300 MG CAP PO SCH (20:40)
[2019-03-07] MEDS: ATORVASTATIN 40 MG TAB PO SCH (20:40)
[2019-03-07] MEDS: MIRTAZAPINE SOLTAB 15 MG PO SCH (20:41)
--- NOTE | 2019-03-07 23:03 | Hospitalist Progress Note ---
Date of Service March 07, 2019 Assessment & Plan (1) Acute respiratory failure with hypoxia and hypercapnia: Acute respiratory failure with hypoxia and hypercapnia/pneumonia/combined respiratory and metabolic acidosis- Admitted to the intensive care unit. Received vancomycin IV and Zosyn IV while in ED. Admitted on vancomycin IV and aztreonam IV. Aggressive pulmonary toilet. Consider discussion for thoracic/interscalene blocks for pain control. Discontinued vancomycin and will continue on aztreonam for a total of 10 days (03/14) Low threshold for intubation if needed. patient is currently on 6 liters of nasal cannula. Patient being transferred out of ICU on 03/07. Will share aroom with his . Patient's had discussion with palliative care. Patient will be a DNR but will be intubated if required for resp. failure. (2) Pneumonia: See above (3) Acute kidney injury: Patient appears to have chronic CKD stage III, with a component of acute kidney injury. Will continue to monitor. Creatinine has been improving (4) CAD (coronary artery disease): CAD/hypertension- On metoprolol PO BID 50 MG (5) Hypertension: See above. (6) Multiple rib fractures: Pain control with morphine 2 mg IV every 3 hours as needed, pain close attention to blood pressure. (7) Sepsis: Treatment for pneumonia as noted above. (8) Hyperlipidemia LDL goal <70: RESTARTED ATROVASTATIN IN THE EVENING OF 03/05. (9) Vitamin B12 deficiency: Restarted home meds. (10) Anxiety: rESTARTED HOME MEDS. will monitor. (11) GERD (gastroesophageal reflux disease): Placed on famotidine 20mg IV every 12 hours (12) Altered mental state: Secondary to sepsis. His mental status appears to be improving. (13) Admitted to intensive care unit: Admitted as noted above. Spent 35 minutes in management of patient. Included orders for transfer out of ICU. Discussion with specialist. Subjective Patient continues to be confused. He does not recognize me. He states he is in some sort of custodial, but then understands he is in the hospital. He wants to go home. He does not provide signifcant history of symptoms. Review of Systems Review of Systems: All systems reviewed & are unremarkable except as noted in HPI & below Physical Exam Physical Exam: The patient looks cachectic, lying in bed and in no acute distress. He appears to be confused. HEENT-- PERRL, EOMI, mucous membranes and oropharynx dry. Neck-- supple. No JVD. No bruits. Thyroid normal, trachea midline, no adenopathy. Heart-- mildly tachycardic. No murmurs, rubs or gallops. Lungs-- decreased coarse breath sounds towards right base of right lung. Abdomen-- normal bowel sounds and soft. Nontender. Nondistended, no hernias or masses, no organomegaly. Extremities-- no cyanosis or clubbing. No edema. Dermatologic-- scattered ecchymoses Neurologic-- cranial nerves II through XII grossly intact Results & Data Vital Signs (Past 12 Hours) Vital Signs Temp Pulse Pulse Pulse Resp BP BP 03/07/19 19:18 37.2 C 120 H 22 126/63 03/07/19 19:09 112 H 18 03/07/19 16:00 36.7 C 115 H 115 H 22 03/07/19 15:15 101 H 20 03/07/19 12:30 108 H 15 03/07/19 12:28 110 H 19 123/68 03/07/19 12:00 119 H 18 03/07/19 11:36 115 H 18 134/72 03/07/19 11:30 117 H 13 03/07/19 11:10 108 H 18 BP Pulse Ox 03/07/19 19:18 91 03/07/19 19:09 91 03/07/19 16:00 114/65 91 03/07/19 15:15 97 03/07/19 12:30 94 03/07/19 12:28 92 03/07/19 12:00 89 L 03/07/19 11:36 86 L 03/07/19 11:30 95 03/07/19 11:10 92 (1) Multiple rib fractures Encounter type: initial encounter Fracture type: closed Laterality: right Qualified Code(s): S22.41XA - Multiple fractures of ribs, right side, initial encounter for closed fracture (2) Sepsis Sepsis type: sepsis due to unspecified organism Qualified Code(s): A41.9 - Sepsis, unspecified organism (3) Pneumonia Laterality: right Lung location: lower lobe of lung Pneumonia type: due to unspecified organism Qualified Code(s): J18.1 - Lobar pneumonia, unspecified organism
[2019-03-08] MEDS: OXYCODONE HCL IR 5 MG TAB (IMMEDIATE RELEASE) PO PRN ×5 (04:45→21:02)
[2019-03-08] MEDS: ALBUT/IPRATROP 3MG/0.5MG NEB 3 ML VIAL NEB SCH ×4 (07:09→19:07)
[2019-03-08] MEDS: CHOLECALCIFEROL 1,000 UNITS TAB PO SCH (08:47)
[2019-03-08] MEDS: METOPROLOL SUCC 25MG EXT REL TAB PO SCH (08:47)
[2019-03-08] MEDS: AMLODIPINE BESYLATE 5 MG TAB PO SCH ×2 (08:47→21:04)
[2019-03-08] MEDS: CYANOCOBALAMIN 500 MCG TABLET (VITAMIN B-12) PO SCH (08:47)
[2019-03-08] MEDS: FERROUS SULFATE 325 MG TAB PO SCH (08:48)
[2019-03-08] MEDS: THIAMINE HCL 100 MG TAB PO SCH (08:48)
[2019-03-08] MEDS: PANTOprazole 40 MG TAB PO SCH (08:48)
[2019-03-08] MEDS: HEPARIN SOD 5,000 UNIT/0.5 ML VIAL SQ SCH ×2 (08:48→21:04)
[2019-03-08] MEDS: LIDOCAINE 5% 1 PATCH TD SCH ×2 (08:48→18:44)
[2019-03-08] MEDS: FOLIC ACID 1 MG TAB PO SCH (08:48)
[2019-03-08] MEDS: ASPIRIN 81 MG ECTAB PO SCH (08:48)
[2019-03-08] MEDS: AZTREONAM 1,000 MG in DEXTROSE 5% 100 ML IV SCH ×3 (08:50→23:34)
[2019-03-08] MEDS: PRIMIDONE 50 MG TAB PO SCH (10:06)
[2019-03-08] MEDS: MIRTAZAPINE SOLTAB 15 MG PO SCH (21:03)
[2019-03-08] MEDS: GABAPENTIN 300 MG CAP PO SCH (21:03)
[2019-03-08] MEDS: ATORVASTATIN 40 MG TAB PO SCH (21:03)
--- NOTE | 2019-03-08 22:55 | Hospitalist Progress Note ---
Date of Service March 08, 2019 Assessment & Plan (1) Acute respiratory failure with hypoxia and hypercapnia: Acute respiratory failure with hypoxia and hypercapnia/pneumonia/combined respiratory and metabolic acidosis- Admitted to the intensive care unit. Received vancomycin IV and Zosyn IV while in ED. Admitted on vancomycin IV and aztreonam IV. Aggressive pulmonary toilet. Consider discussion for thoracic/interscalene blocks for pain control. Discontinued vancomycin and will continue on aztreonam for a total of 10 days (03/14) Low threshold for intubation if needed. Patient is currently on 6 liters of nasal cannula. Patient transferred out of ICU on 03/07. Sharing a room with his . Patient's had discussion with palliative care. Patient will be a DNR but will be intubated if required for resp. failure. Patient currently not meeting criteria for reintubation. He does appear to be gradually improving, but is currently on 6 liters nsal cannula. Will recheck oxygen level. (2) Pneumonia: See above (3) Acute kidney injury: Patient appears to have chronic CKD stage III, with a component of acute kidney injury. Will continue to monitor. Creatinine has been improving (4) CAD (coronary artery disease): CAD/hypertension- On metoprolol PO BID 50 MG (5) Hypertension: See above. (6) Multiple rib fractures: Pain control with morphine 2 mg IV every 3 hours as needed, pain close attention to blood pressure. (7) Sepsis: Treatment for pneumonia as noted above. (8) Hyperlipidemia LDL goal <70: RESTARTED ATROVASTATIN IN THE EVENING OF 03/05. (9) Vitamin B12 deficiency: Restarted home meds. (10) Anxiety: RESTARTED HOME MEDS. will monitor. (11) GERD (gastroesophageal reflux disease): Placed on famotidine 20mg IV every 12 hours (12) Altered mental state: Secondary to sepsis. His mental status appears to be improving. (13) Admitted to intensive care unit: Admitted as noted above. Spent 25 minutes in management of patient. Subjective Patient reports no significant change in his symptoms. He states he wants to be discharged. His and daughter are updated. Patient does not quite understand why he is still in the hospital. D/W nurse, still requiring Review of Systems Review of Systems: All systems reviewed & are unremarkable except as noted in HPI & below Physical Exam Physical Exam: The patient is in no acute distress, on oxygen. HEENT-- PERRL, EOMI, mucous membranes and oropharynx dry. Neck-- supple. No JVD. No bruits. Thyroid normal, trachea midline, no adenopathy. Heart-- mildly tachycardic. No murmurs, rubs or gallops. Lungs-- decreased coarse breath sounds towards right base of right lung. Abdomen-- normal bowel sounds and soft. Nontender. Nondistended, no hernias or masses, no organomegaly. Extremities-- no cyanosis or clubbing. No edema. Dermatologic-- scattered ecchymoses Neurologic-- cranial nerves II through XII grossly intact Results & Data Vital Signs (Past 12 Hours) Vital Signs Temp Pulse Pulse Resp BP Pulse Ox 03/08/19 19:42 36.8 C 108 H 20 133/68 91 03/08/19 19:08 104 H 18 93 03/08/19 16:00 102 H 03/08/19 15:31 103 H 18 92 03/08/19 15:16 37.0 C 101 H 18 120/63 94 03/08/19 10:57 107 H 20 93 (1) Multiple rib fractures Encounter type: initial encounter Fracture type: closed Laterality: right Qualified Code(s): S22.41XA - Multiple fractures of ribs, right side, initial encounter for closed fracture (2) Sepsis Sepsis type: sepsis due to unspecified organism Qualified Code(s): A41.9 - Sepsis, unspecified organism (3) Pneumonia Laterality: right Lung location: lower lobe of lung Pneumonia type: due to unspecified organism Qualified Code(s): J18.1 - Lobar pneumonia, unspecified organism
[2019-03-09] MEDS: OXYCODONE HCL IR 5 MG TAB (IMMEDIATE RELEASE) PO PRN ×4 (01:54→19:36)
[2019-03-09 07:22] LABS: Creatinine Clr Calc Pharmacy 28.1 ml/min; Est GFR (African American) 37.4; Est GFR (Non-African American) 32.3
[2019-03-09] MEDS: ALBUT/IPRATROP 3MG/0.5MG NEB 3 ML VIAL NEB SCH ×2 (07:28→19:41)
[2019-03-09] MEDS: THIAMINE HCL 100 MG TAB PO SCH (08:04)
[2019-03-09] MEDS: ASPIRIN 81 MG ECTAB PO SCH (08:04)
[2019-03-09] MEDS: FERROUS SULFATE 325 MG TAB PO SCH (08:05)
[2019-03-09] MEDS: CYANOCOBALAMIN 500 MCG TABLET (VITAMIN B-12) PO SCH (08:05)
[2019-03-09] MEDS: AMLODIPINE BESYLATE 5 MG TAB PO SCH ×2 (08:05→20:10)
[2019-03-09] MEDS: CHOLECALCIFEROL 1,000 UNITS TAB PO SCH (08:05)
[2019-03-09] MEDS: METOPROLOL SUCC 25MG EXT REL TAB PO SCH (08:06)
[2019-03-09] MEDS: PANTOprazole 40 MG TAB PO SCH (08:07)
[2019-03-09] MEDS: FOLIC ACID 1 MG TAB PO SCH (08:09)
[2019-03-09] MEDS: PRIMIDONE 50 MG TAB PO SCH (08:09)
[2019-03-09] MEDS: LIDOCAINE 5% 1 PATCH TD SCH (08:10)
[2019-03-09] MEDS: HEPARIN SOD 5,000 UNIT/0.5 ML VIAL SQ SCH ×2 (08:15→20:14)
[2019-03-09] MEDS: AZTREONAM 1,000 MG in DEXTROSE 5% 100 ML IV SCH ×3 (08:16→23:25)
--- NOTE | 2019-03-09 13:47 | XRay Report ---
XR chest 1V portable CLINICAL HISTORY: 78 years-old Male presenting with hypoxia. TECHNIQUE: Portable upright AP view of the chest was obtained. COMPARISON: 03/07/2019. FINDINGS: Atherosclerosis of the aortic arch. Cardiac silhouette enlarged. Extensive opacity in the right mid t o lower lung with low right lung volume. Pulmonary vascular prominence has slightly decreased from pr ior. Slightly worsened aeration of the left lung base and significantly worsened aeration of the righ t lung base. No pneumothorax. Degenerative changes of the thoracic spine. Upper abdomen normal. IMPRESSION: 1. Worsened aeration of the lung bases with suspected increased right pleural effusion. 2. Cardiomegaly. Electronically signed by: Klaus Galan M.D. 03/09/2019 1:46 PM
[2019-03-09] MEDS: GABAPENTIN 300 MG CAP PO SCH (20:12)
[2019-03-09] MEDS: ATORVASTATIN 40 MG TAB PO SCH (20:12)
[2019-03-09] MEDS: MIRTAZAPINE SOLTAB 15 MG PO SCH (20:13)
--- NOTE | 2019-03-09 23:54 | Hospitalist Progress Note ---
Date of Service March 09, 2019 Assessment & Plan (1) Acute respiratory failure with hypoxia and hypercapnia: Acute respiratory failure with hypoxia and hypercapnia/pneumonia/combined respiratory and metabolic acidosis- Admitted to the intensive care unit. Received vancomycin IV and Zosyn IV while in ED. Admitted on vancomycin IV and aztreonam IV. Aggressive pulmonary toilet. Consider discussion for thoracic/interscalene blocks for pain control. Discontinued vancomycin and will continue on aztreonam for a total of 10 days (03/14) Low threshold for intubation if needed. patient is currently on 6 liters of nasal cannula. Has not been able to wean off today 03/09 Patient being transferred out of ICU on 03/07. Patient will be a DNR but will be intubated if required for resp. failure. Plan is to recheck labs in AM. Have him ambulate with therapy. X-ray was done and showed increased opacity of RLL. Will d/w appeals referee for possible thoracocenthesis. (2) Pneumonia: See above (3) Acute kidney injury: Patient appears to have chronic CKD stage III, with a component of acute kidney injury. Will continue to monitor. Creatinine has been improving (4) CAD (coronary artery disease): CAD/hypertension- On metoprolol PO BID 50 MG (5) Hypertension: See above. (6) Multiple rib fractures: Pain control with morphine 2 mg IV every 3 hours as needed, pain close attention to blood pressure. Patient also has lidocaine patches which have improved pain control and has limited morphine use. (7) Sepsis: Treatment for pneumonia as noted above. (8) Hyperlipidemia LDL goal <70: RESTARTED ATROVASTATIN IN THE EVENING OF 03/05. (9) Vitamin B12 deficiency: Restarted home meds. (10) Anxiety: rESTARTED HOME MEDS. will monitor. (11) GERD (gastroesophageal reflux disease): Placed on famotidine 20mg IV every 12 hours (12) Altered mental state: Secondary to sepsis. His mental status appears to be improving. (13) Admitted to intensive care unit: Admitted as noted above. Subjective 78 yo male reports feeling no change. He is frustrated by the lack of progress. He states again states that he would like to go home. is being transferred to anothet room. She states he has not ashanti active. She attributes this to his fall and believes the atelectasis likely caused this pneumonia. Review of Systems Review of Systems: All systems reviewed & are unremarkable except as noted in HPI & below Physical Exam Physical Exam: The patient is in no acute distress, on oxygen. HEENT-- PERRL, EOMI, mucous membranes and oropharynx dry. Neck-- supple. No JVD. No bruits. Thyroid normal, trachea midline, no ad enopathy. Heart-- mildly tachycardic. No murmurs, rubs or gallops. Lungs-- decreased coarse breath sounds towards right base of right lung. Abdomen-- normal bowel sounds and soft. Nontender. Nondistended, no hernias or masses, no organomegaly. Extremities-- no cyanosis or clubbing. No edema. Dermatologic-- scattered ecchymoses Neurologic-- cranial nerves II through XII grossly intact Results & Data Vital Signs (Past 12 Hours) Vital Signs Temp Pulse Pulse Resp BP Pulse Ox 03/09/19 23:28 111 H 03/09/19 20:00 37.4 C 104 H 20 131/67 90 03/09/19 19:42 103 H 20 92 03/09/19 16:00 100 H 03/09/19 15:42 36.8 C 100 H 20 118/69 90 (1) Multiple rib fractures Encounter type: initial encounter Fracture type: closed Laterality: right Qualified Code(s): S22.41XA - Multiple fractures of ribs, right side, initial encounter for closed fracture (2) Sepsis Sepsis type: sepsis due to unspecified organism Qualified Code(s): A41.9 - Sepsis, unspecified organism (3) Pneumonia Laterality: right Lung location: lower lobe of lung Pneumonia type: due to unspecified organism Qualified Code(s): J18.1 - Lobar pneumonia, unspecified organism
[2019-03-10] MEDS: ALBUT/IPRATROP 3MG/0.5MG NEB 3 ML VIAL NEB SCH ×2 (07:11→19:23)
[2019-03-10 07:20] LABS: Hematocrit (blood only) 20.9 % (42-52); Hemoglobin 6.9 g/dL (14.0-18.0); Mean Corpuscular Volume 93.7 fL (80-100); Mean Platelet Volume 9.2 fL (7.4-10.4); Platelet Count 557 K/uL (130-400); RDW Coefficient of Variation 14.2 % (11.5-14.5); RDW Standard Deviation 48.9 fL (36.4-46.3); Red Blood Count 2.23 M/uL (4.7-6.1); White Blood Count 11.65 K/uL (4.8-10.8)
[2019-03-10 07:30] LABS: Basophils # (auto) 0.02 K/uL (0-0.2); Basophils % (auto) 0.2 %; Eosinophils # (auto) 0.79 K/uL (0-0.5); Eosinophils % (auto) 6.8 %; Immature Granulocytes # (auto) 0.05 K/uL (0.00-0.02); Immature Granulocytes % (auto) 0.4 %; Lymphocytes % (auto) 13.7 %; Monocytes # (auto) 1.02 K/uL (0.11-0.59); Monocytes % (auto) 8.8 %; Neutrophils # (auto) 8.17 K/uL (1.4-6.5); Neutrophils % (auto) 70.1 %
[2019-03-10 07:40] LABS: BUN Creatinine Ratio 22.8 (10-20); Calcium 8.8 mg/dl (8.5-10.1); Creatinine Clr Calc Pharmacy 31.3 ml/min; Est GFR (African American) 38.3; Est GFR (Non-African American) 33.1; Potassium 4.5 mmol/L (3.5-5.1)
[2019-03-10 08:02] LABS: Ferritin 401.5 ng/ml (8-388)
--- NOTE | 2019-03-10 08:02 | XRay Report ---
XR chest 1V portable HISTORY: 78 years-old Male SOB acute shortness of breath COMPARISON: Chest radiograph 03/09/2019 TECHNIQUE: Portable AP view of the chest FINDINGS: Patient is slightly rotated towards the left. Cardiac silhouette is enlarged, unchanged. Progressivel y worsened bilateral mixed interstitial and alveolar opacities. Moderate right pleural effusion appea rs unchanged. Emphysema. Small left pleural effusion has increased in size with progressive left lung base and right midlung opacities. There is no pneumothorax. Degenerative changes of the shoulders an d spine. IMPRESSION: 1. Cardiomegaly with progressively worsened right greater than left bilateral mixed interstitial and alveolar opacities suggestive of multifocal pneumonia with superimposed pulmonary edema difficult to exclude. 2. Moderate right pleural effusion is unchanged. Small left pleural effusion has increased in size. 3. Emphysema. The above report was generated using voice recognition software. It may contain grammatical, syntax o r spelling errors. Electronically signed by: Gilles Mckinley M.D. 03/10/2019 8:00 AM
[2019-03-10] MEDS: OXYCODONE HCL IR 5 MG TAB (IMMEDIATE RELEASE) PO PRN ×4 (08:05→20:46)
[2019-03-10] MEDS: ASPIRIN 81 MG ECTAB PO SCH (08:19)
[2019-03-10] MEDS: PRIMIDONE 50 MG TAB PO SCH (08:19)
[2019-03-10] MEDS: METOPROLOL SUCC 25MG EXT REL TAB PO SCH (08:20)
[2019-03-10] MEDS: FERROUS SULFATE 325 MG TAB PO SCH (08:21)
[2019-03-10] MEDS: CYANOCOBALAMIN 500 MCG TABLET (VITAMIN B-12) PO SCH (08:22)
[2019-03-10] MEDS: AMLODIPINE BESYLATE 5 MG TAB PO SCH ×2 (08:22→20:46)
[2019-03-10] MEDS: CHOLECALCIFEROL 1,000 UNITS TAB PO SCH (08:22)
[2019-03-10] MEDS: PANTOprazole 40 MG TAB PO SCH (08:22)
[2019-03-10] MEDS: FOLIC ACID 1 MG TAB PO SCH (08:23)
[2019-03-10] MEDS: THIAMINE HCL 100 MG TAB PO SCH (08:23)
[2019-03-10] MEDS: LIDOCAINE 5% 1 PATCH TD SCH (08:23)
[2019-03-10] MEDS: AZTREONAM 1,000 MG in DEXTROSE 5% 100 ML IV SCH ×3 (08:24→23:14)
[2019-03-10] MEDS ORDERED: SODIUM CHLORIDE 0.9% 250 ML IV PRN (08:28)
[2019-03-10 08:47] LABS: Hematocrit (blood only) 23.8 % (42-52); Hemoglobin 7.7 g/dL (14.0-18.0)
--- NOTE | 2019-03-10 10:42 | Procedure Note ---
Procedure Note Date of Service March 10, 2019 Procedure Date: Noted above Critical Care Medicine Point of Care Bedside Ultrasound Procedure: Limited Bedside Lung Ultrasound Indication: Worsening right lung infiltrates Attending: Tatyana Domingo DO Resident/Physician Pile Driver Operator: Not applicable Organs Examined: Lung BLUE point (upper), BLUE point (lower), Phrenic Point (axillary), PLAPS point (posterior) A lines visualized: Absent, Hemithorax: Right B lines visualized: Present in all 4 quadrants, Hemithorax: Right Lung Sliding: Present, Hemithorax: Right Tissue-like Sign: Present, Hemithorax: Right lower lobe Shred Sign: Present, Hemithorax: Right lower lobe Quad Sign: Present, Hemithorax: Right lower lobe Sinusoid Sign: Present, Hemithorax: Right lower lobe Type of effusions: Complex, Hemithorax: Right Interpleural distance: 2 cm Impression: Complex pleural fluid with some evidence of stranding on right, B1 lines consistent with mild pulmonary edema. During respiration patient's lung does appear to touch the chest wall, this would be a difficult thoracentesis at this time. I discussed the case with Dr. Ruiz Images obtained are saved for permanent record Coding CPT Codes Pulmonary/Thoracic - Pulmonary and Thoracic: US, Chest, real time with imaging documentation ([id number])
[2019-03-10] MEDS ORDERED: FUROSEMIDE 40 MG/4 ML VIAL IV STA (12:05)
[2019-03-10] MEDS ORDERED: FUROSEMIDE 40 MG in SYRINGE 0 ML IV STA (12:19)
[2019-03-10] MEDS: ATORVASTATIN 40 MG TAB PO SCH (20:47)
[2019-03-10] MEDS: GABAPENTIN 300 MG CAP PO SCH (20:47)
[2019-03-10] MEDS: MIRTAZAPINE SOLTAB 15 MG PO SCH (20:49)
--- NOTE | 2019-03-10 22:53 | Hospitalist Progress Note ---
Date of Service March 10, 2019 Assessment & Plan (1) Acute respiratory failure with hypoxia and hypercapnia: Acute respiratory failure with hypoxia and hypercapnia/pneumonia/combined respiratory and metabolic acidosis- Admitted to the intensive care unit. Received vancomycin IV and Zosyn IV while in ED. Admitted on vancomycin IV and aztreonam IV. Aggressive pulmonary toilet. Consider discussion for thoracic/interscalene blocks for pain control. Discontinued vancomycin and will continue on aztreonam for a total of 10 days (03/14) Low threshold for intubation if needed. patient is currently on 7 liters of nasal cannula. Has not been able to wean off today 03/10, has actually required more Patient being transferred out of ICU on 03/07. Patient will be a DNR but will be intubated if required for resp. failure. D/W intensivisit, sees B lines and small amount of pleural effusion which could be removed. However, he recommends conservative management today. Have patient ambulate take deep breaths. Will reasess in AM. If patient continues to not improve, will need thoracocenthesis. (2) Pneumonia: See above (3) Acute kidney injury: Patient appears to have chronic CKD stage III, with a component of acute kidney injury. Will continue to monitor. Creatinine has been improving (4) CAD (coronary artery disease): CAD/hypertension- On metoprolol PO BID 50 MG (5) Hypertension: See above. (6) Multiple rib fractures: Pain control with morphine 2 mg IV every 3 hours as needed, pain close attention to blood pressure. Patient also has lidocaine patches which have improved pain control and has limited morphine use. (7) Sepsis: Treatment for pneumonia as noted above. (8) Hyperlipidemia LDL goal <70: RESTARTED ATROVASTATIN IN THE EVENING OF 03/05. (9) Vitamin B12 deficiency: Restarted home meds. (10) Anxiety: RESTARTED HOME MEDS. will monitor. (11) GERD (gastroesophageal reflux disease): Placed on famotidine 20mg IV every 12 hours (12) Altered mental state: Secondary to sepsis. His mental status appears to be improving. (13) Admitted to intensive care unit: Admitted as noted above. (14) Anemia of chronic disease: Hemoglobin was below 7. Recheckd as no signs of bleeding, no BM for past 2 days. Recheck was closer to to his last result. Held transfusion. Iron studies show anemia of chronic disease. Willl monitor. Spent 70 minutes in management of patient. From 7:50 to 9:00 Subjective Pleasant male, he reports no significant changes. D/W nursing staff, he is requiring more oxygen. D/W who is in other vikki, states he became worse after the fall and fracturing his ribs. Normally he is not on oxygen and was more active than her. Review of Systems Review of Systems: All systems reviewed & are unremarkable except as noted in HPI & below Physical Exam Physical Exam: The patient is in no acute distress, on oxygen. HEENT-- PERRL, EOMI, mucous membranes and oropharynx dry. Neck-- supple. No JVD. No bruits. Thyroid normal, trachea midline, no adenopathy. Heart-- mildly tachycardic. No murmurs, rubs or gallops. Lungs-- decreased coarse breath sounds towards right base of right lung. Abdomen-- normal bowel sounds and soft. Nontender. Nondistended, no hernias or masses, no organomegaly. Extremities-- no cyanosis or clubbing. No edema. Dermatologic-- scattered ecchymoses Neurologic-- cranial nerves II through XII grossly intact Results & Data Vital Signs (Past 12 Hours) Vital Signs Temp Pulse Pulse Resp BP BP Pulse Ox 03/10/19 19:49 36.8 C 109 H 18 143/69 H 91 03/10/19 19:23 81 18 95 03/10/19 16:00 89 03/10/19 15:30 37.1 C 93 H 20 117/56 L 96 (1) Multiple rib fractures Encounter type: initial encounter Fracture type: closed Laterality: right Qualified Code(s): S22.41XA - Multiple fractures of ribs, right side, initial encounter for closed fracture (2) Sepsis Sepsis type: sepsis due to unspecified organism Qualified Code(s): A41.9 - Sepsis, unspecified organism (3) Pneumonia Laterality: right Lung location: lower lobe of lung Pneumonia type: due to unspecified organism Qualified Code(s): J18.1 - Lobar pneumonia, unspecified organism
[2019-03-11] MEDS: OXYCODONE HCL IR 5 MG TAB (IMMEDIATE RELEASE) PO PRN ×5 (04:57→23:44)
[2019-03-11 06:24] LABS: Basophils # (auto) 0.03 K/uL (0-0.2); Basophils % (auto) 0.3 %; Eosinophils # (auto) 0.75 K/uL (0-0.5); Eosinophils % (auto) 6.4 %; Hematocrit (blood only) 21.4 % (42-52); Immature Granulocytes # (auto) 0.05 K/uL (0.00-0.02); Immature Granulocytes % (auto) 0.4 %; Lymphocytes # (auto) 1.77 K/uL (1.2-3.4); Lymphocytes % (auto) 15.1 %; Mean Corpuscular Hgb Conc 32.7 g/dL (32-36); Mean Platelet Volume 9.1 fL (7.4-10.4); Monocytes # (auto) 1.04 K/uL (0.11-0.59); Monocytes % (auto) 8.8 %; Neutrophils # (auto) 8.12 K/uL (1.4-6.5); Platelet Count 577 K/uL (130-400); RDW Coefficient of Variation 14.4 % (11.5-14.5); RDW Standard Deviation 48.9 fL (36.4-46.3); White Blood Count 11.76 K/uL (4.8-10.8)
[2019-03-11 06:45] LABS: Est GFR (African American) 35.2; Est GFR (Non-African American) 30.4
[2019-03-11 07:01] LABS: Anisocytosis Present; Toxic Granulation 1+; Toxic Vacuolation 1+
[2019-03-11] MEDS: ALBUT/IPRATROP 3MG/0.5MG NEB 3 ML VIAL NEB SCH ×2 (07:16→19:14)
[2019-03-11] MEDS ORDERED: SODIUM CHLORIDE 0.9% 250 ML IV PRN (07:51)
[2019-03-11] MEDS: THIAMINE HCL 100 MG TAB PO SCH (08:14)
[2019-03-11] MEDS: PRIMIDONE 50 MG TAB PO SCH (08:14)
[2019-03-11] MEDS: PANTOprazole 40 MG TAB PO SCH (08:15)
[2019-03-11] MEDS: FERROUS SULFATE 325 MG TAB PO SCH (08:15)
[2019-03-11] MEDS: CHOLECALCIFEROL 1,000 UNITS TAB PO SCH (08:15)
[2019-03-11] MEDS: AMLODIPINE BESYLATE 5 MG TAB PO SCH ×2 (08:15→20:23)
[2019-03-11] MEDS: ASPIRIN 81 MG ECTAB PO SCH (08:15)
[2019-03-11] MEDS: FOLIC ACID 1 MG TAB PO SCH (08:15)
[2019-03-11] MEDS: METOPROLOL SUCC 25MG EXT REL TAB PO SCH (08:15)
[2019-03-11] MEDS: CYANOCOBALAMIN 500 MCG TABLET (VITAMIN B-12) PO SCH (08:15)
[2019-03-11] MEDS: LIDOCAINE 5% 1 PATCH TD SCH (08:16)
[2019-03-11] MEDS: AZTREONAM 1,000 MG in DEXTROSE 5% 100 ML IV SCH ×2 (09:39→16:16)
--- NOTE | 2019-03-11 14:34 | Hospitalist Progress Note ---
Date of Service March 11, 2019 Assessment & Plan (1) Acute respiratory failure with hypoxia and hypercapnia: Initially admitted to the intensive care unit; transferred out on 03/07. Was on vanc/aztreonam initially. Vanc stopped for negative MRSA swab. - Bronchoscopy on 03/06 showed thick secretions; however, all cultures negative so far. - Consider discussion for thoracic/interscalene blocks for pain control. - Currently on 9 liters of nasal cannula. - On 03/10, though for possible thoracentesis, but not enough fluid to tap. (2) Pneumonia: See above (3) Multiple rib fractures: Patient had a fall ~02/21. He was seen in the ED on 02/25 for right chest pain and contusions. Was advised to be admitted, but decided to leave. Re- presented on 03/04 with evidence of pneumonia. - Lidocaine patches and oral meds presently working as long as the patient doesn't cough. - Encouraged incentive spirometry & getting into chair (4) Anemia of chronic disease: Baseline hgb ~9.5. Has been lower most of this admission at ~8. - Down to 6.9 on 03/10, but recheck was 7.7. No signs of bleeding. - Down to 7 on 03/11 - Transfused 1 unit of PRBCs on 03/11. - Still no signs of bleeding on exam; would consider CT chest if continues to fall to be sure there is no hemothorax. (5) Acute kidney injury: Baseline Cr ~2.0. Cr up to 4.2 on admission; gradually coming back down. - Presently at baseline. (6) CAD (coronary artery disease): CAD/hypertension- On metoprolol PO BID 50 MG (7) Hypertension: See above. (8) Sepsis: Treatment for pneumonia as noted above. - Resolved by 03/11 (9) Hyperlipidemia LDL goal <70: RESTARTED ATROVASTATIN IN THE EVENING OF 03/05. (10) Vitamin B12 deficiency: Restarted home meds. (11) Anxiety: RESTARTED HOME MEDS. will monitor. (12) GERD (gastroesophageal reflux disease): On PPI (13) Altered mental state: Secondary to sepsis. His mental status appears to be at baseline today (03/11). (14) DVT prophylaxis: SCDs - Holding any chemoprophylaxis until hgb stable Subjective Reports not being any different from the last few days. Still shortness of breath and chest pain. Review of Systems Review of Systems: All systems reviewed & are unremarkable except as noted in HPI & below Physical Exam Constitutional: WD/WN, vitals as above Eyes: EOM intact bilaterally; no conjunctival abnormality ENMT: external ear and nose normal, oropharynx normal Neck: trachea midline, no thyromegaly normal visual inspection Respiratory: normal respiratory effort, lungs clear to auscultation no respiratory distress Cardiovascular: RRR, no murmur, no edema Gastrointestinal (Abdomen): Inspection/Auscultation: abdomen normal to inspection; abdomen not distended Musculoskeletal: no cyanosis or clubbing, extremities motor strength 5/5 Skin: no rashes, warm and dry Neurologic: moves all extremities and awake Psychiatric: Orientation: alert, oriented to person and cooperative Results & Data Vital Signs (Past 12 Hours) Vital Signs Temp Pulse Pulse Pulse Resp BP BP 03/11/19 10:40 37.6 C H 95 H 20 119/67 03/11/19 10:13 37.5 C 97 H 20 119/67 03/11/19 10:12 37.4 C 102 H 19 130/72 03/11/19 09:13 37.1 C 116 H 20 133/72 03/11/19 08:43 37.1 C 116 H 19 131/69 03/11/19 08:28 37.6 C H 124 H 21 138/67 03/11/19 08:03 37.6 C H 126 H 21 141/70 H 03/11/19 07:50 36.8 C 127 H 20 154/67 H 03/11/19 07:16 109 H 18 03/11/19 06:19 108 H 03/11/19 04:46 37.3 C 108 H 18 137/68 Pulse Ox 03/11/19 10:40 98 03/11/19 10:13 98 03/11/19 10:12 97 03/11/19 09:13 94 03/11/19 08:43 93 03/11/19 08:28 89 L 03/11/19 08:03 88 L 03/11/19 07:50 03/11/19 07:16 92 03/11/19 06:19 03/11/19 04:46 95 (1) Pneumonia Laterality: right Lung location: lower lobe of lung Pneumonia type: due to unspecified organism Qualified Code(s): J18.1 - Lobar pneumonia, unspecified organism (2) Multiple rib fractures Encounter type: initial encounter Fracture type: closed Laterality: right Qualified Code(s): S22.41XA - Multiple fractures of ribs, right side, initial encounter for closed fracture (3) Sepsis Sepsis type: sepsis due to unspecified organism Qualified Code(s): A41.9 - Sepsis, unspecified organism
[2019-03-11] MEDS: ATORVASTATIN 40 MG TAB PO SCH (20:23)
[2019-03-11] MEDS: MIRTAZAPINE SOLTAB 15 MG PO SCH (20:23)
[2019-03-11] MEDS: GABAPENTIN 300 MG CAP PO SCH (20:24)
[2019-03-11] MEDS ORDERED: PIPERACILL/TAZOBAC CONSULT ACTIVE PRN (21:44)
[2019-03-11] MEDS ORDERED: PIPERACILLIN/TAZOBACTAM 3.375 GM in DEXTROSE 5% 100 ML IV ONE (22:00)
[2019-03-12] MEDS: OXYCODONE HCL IR 5 MG TAB (IMMEDIATE RELEASE) PO PRN ×5 (03:49→20:54)
[2019-03-12] MEDS: PIPERACILLIN/TAZOBACTAM 3.375 GM in DEXTROSE 5% 100 ML IV SCH ×3 (03:49→21:00)
[2019-03-12 07:05] LABS: Hematocrit (blood only) 25.9 % (42-52); Hemoglobin 8.7 g/dL (14.0-18.0); Mean Corpuscular Hgb Conc 33.6 g/dL (32-36); Mean Corpuscular Volume 93.2 fL (80-100); Mean Platelet Volume 9.1 fL (7.4-10.4); Platelet Count 619 K/uL (130-400); RDW Coefficient of Variation 14.3 % (11.5-14.5); RDW Standard Deviation 48.9 fL (36.4-46.3); Red Blood Count 2.78 M/uL (4.7-6.1); White Blood Count 13.39 K/uL (4.8-10.8)
[2019-03-12] MEDS: ALBUT/IPRATROP 3MG/0.5MG NEB 3 ML VIAL NEB SCH ×2 (07:13→19:12)
[2019-03-12 07:36] LABS: BUN Creatinine Ratio 22.5 (10-20); Calcium 8.9 mg/dl (8.5-10.1); Creatinine Clr Calc Pharmacy 28.7 ml/min; Est GFR (African American) 36.7; Est GFR (Non-African American) 31.7; Magnesium 1.1 mg/dl (1.8-2.4); Potassium 4.8 mmol/L (3.5-5.1)
--- NOTE | 2019-03-12 08:35 | XRay Report ---
XR chest 2V routine HISTORY: 78 years-old Male Shortness of breath acute shortness of breath COMPARISON: Chest radiograph 03/10/2019 TECHNIQUE: Portable AP view of the chest FINDINGS: Cardiac silhouette is enlarged, unchanged. Calcification of the thoracic aortic arch. Pulmonary vascu lar congestion with bilateral interstitial opacities. Right perihilar and right greater left bibasila r alveolar opacities with bilateral pleural effusions. The left pleural effusion appears slightly dec reased in size from comparison. Emphysema. Degenerative changes of the shoulders and spine. IMPRESSION: 1. Cardiomegaly with persistent pulmonary vascular congestion and bilateral interstitial opacities. 2. Right greater than left bibasilar and right perihilar alveolar opacities redemonstrated suggestive of probable pneumonitis. 3. Bilateral pleural effusions, slightly decreased in size on the left. 4. Emphysema. The above report was generated using voice recognition software. It may contain grammatical, syntax o r spelling errors. Electronically signed by: Gilles Mckinley M.D. 03/12/2019 8:34 AM
[2019-03-12] MEDS ORDERED: FUROSEMIDE 40 MG/4 ML VIAL IV STA (08:48)
[2019-03-12] MEDS ORDERED: FUROSEMIDE 40 MG in SYRINGE 0 ML IV STA (08:50)
[2019-03-12] MEDS: PANTOprazole 40 MG TAB PO SCH (08:58)
[2019-03-12] MEDS: CHOLECALCIFEROL 1,000 UNITS TAB PO SCH (08:58)
[2019-03-12] MEDS: ASPIRIN 81 MG ECTAB PO SCH (08:58)
[2019-03-12] MEDS: METOPROLOL SUCC 25MG EXT REL TAB PO SCH (08:58)
[2019-03-12] MEDS: AMLODIPINE BESYLATE 5 MG TAB PO SCH ×2 (08:58→20:55)
[2019-03-12] MEDS: LIDOCAINE 5% 1 PATCH TD SCH (08:59)
[2019-03-12] MEDS: FERROUS SULFATE 325 MG TAB PO SCH (08:59)
[2019-03-12] MEDS: THIAMINE HCL 100 MG TAB PO SCH (08:59)
[2019-03-12] MEDS: FOLIC ACID 1 MG TAB PO SCH (08:59)
[2019-03-12] MEDS: CYANOCOBALAMIN 500 MCG TABLET (VITAMIN B-12) PO SCH (08:59)
[2019-03-12] MEDS: PRIMIDONE 50 MG TAB PO SCH (08:59)
--- NOTE | 2019-03-12 09:31 | Pain Management Consultation ---
Date of Consultation March 12, 2019 Assessment & Plan (1) Rib pain on right side: 1. PDMP was reviewed which revealed that the patient has been receiving chronic opiate therapy in the outpatient setting with hydrocodone/acetaminophen #180/month. PDMP reveals prescriptions as far back as October 2015. This was reported as an approximate 20-year usage per the patient. This appears to be related to his chronic right chest wall pain of uncertain etiology upon review of medical records. The patient does have known rib fractures on the right side per imaging completed upon this admission with uncertainty of acute versus chronic. Will need to review outpatient records to determine the reasons for his chronic opiate therapy in the outpatient setting. Patient is not a candidate for any interventional treatment at this time due to his pneumonia/sepsis. He would likely be a poor candidate for any interventional treatment due to his underlying lung disease upon discharge. Patient is indicating adequate pain control at this time and therefore would not recommend change in his current medical regimen. Patient may resume his outpatient treatment upon discharge. 2. Continue with application of Lidoderm patch to the affected area 3. Could consider a trial of compounded cream to the chest wall Present on Admission?: Yes (2) Fracture, ribs: Encounter type: initial encounter Fracture type: closed Laterality: right Rib fracture type: multiple ribs Qualified Code(s): S22.41XA - Multiple fractures of ribs, right side, initial encounter for closed fracture Present on Admission?: Yes (3) Opioid dependence: Present on Admission?: Yes (4) Sepsis: Sepsis type: sepsis due to unspecified organism Qualified Code(s): A41.9 - Sepsis, unspecified organism Present on Admission?: Yes (5) Acute respiratory failure with hypoxia and hypercapnia: Present on Admission?: Yes (6) Pneumonia: Laterality: right Lung location: lower lobe of lung Pneumonia type: due to unspecified organism Qualified Code(s): J18.1 - Lobar pneumonia, unspecified organism Present on Admission?: Yes History of Present Illness Reason for Consultation: Right posterior lateral chest wall pain Requesting Physician: Chava Salazar MD Attending Physician: Chava Salazar MD History of Present Illness Mr. Hilton is a 78-year-old white male who was admitted on 03/04/2019 with acute respiratory failure with hypoxia and hypercapnia and pneumonia with a combined respiratory metabolic acidosis who was admitted to the ICU initially. Patient also had concomitant difficulties altered mental status. Patient has been receiving IV antibiotic therapy and has been transferred to medical floor. Patient's overall status has improved. Pain service has been consulted for evaluation of chronic right lateral chest wall pain. The patient reportedly had a fall in January 2018. He was evaluated emergently on 527 for right chest wall pain and contusions. He was found to have multiple nondisplaced rib fractures at the time of the emergency evaluation of the sixth, seventh and eighth ribs. Patient reports chronic chest wall pain without recent change in severity or location. He reports that he has been on chronic opiate therapy for many years. He reports greater than 20 years of pain in this location. He is unable to report the underlying etiology for the chronic chest wall pain. He reports some increased discomfort with deep breathing, coughing or sneezing activities. He denies midthoracic back pain. He is uncertain as to what the lidocaine patches are benefiting the pain complaint at this time. Patient denies a true radicular pattern to his pain complaint. He has no pain traveling into the abdominal region. He denies axial back pain of the cervical, thoracic or lumbar regions. Patient has no further constitutional complaints. He does report on multiple occasions that he wishes to be discharged home. Plan of care discussed with Dr. Leonila Be. Pain Assessment Full Body Front + Back: 1. Right posterior lateral chest wall 2. Right lateral chest wall Pain scale - at its best (0-10): 0 Pain scale - at its worst (0-10): 6 Allergies Allergy/AdvReac Type Severity Reaction Status Date / Time cefuroxime Allergy Unknown rash Verified 03/04/19 02:19 Home Medications Home Medications Medication Instructions Recorded Confirmed Type amlodipine 5 mg PO BID 02/25/19 03/04/19 History aspirin 81 mg PO QAM 02/25/19 03/04/19 History atorvastatin 40 mg PO QPM 02/25/19 03/04/19 History buspirone 5 mg PO TID PRN 02/25/19 03/04/19 History cholecalciferol (vitamin D3) 1,000 unit PO QAM 02/25/19 03/04/19 History [Vitamin D3] cyanocobalamin (vitamin B-12) 1,000 mcg PO QAM 02/25/19 03/04/19 History [Vitamin B-12] gabapentin 600 mg PO HS 02/25/19 03/04/19 History metoprolol succinate 25 mg PO DAILY 02/25/19 03/04/19 History mirtazapine 45 mg PO HS 02/25/19 03/04/19 History nitroglycerin 0.4 mg SUBLINGUAL DIRECTED PRN 02/25/19 03/04/19 History omeprazole 40 mg PO QAM 02/25/19 03/04/19 History primidone 50 mg PO DAILY 02/25/19 03/04/19 History morphine 15 - 30 mg PO Q4 PRN 03/04/19 03/04/19 History Pain History Pain Intensity Pain scale - at its best (0-10): 0 Pain scale - at its worst (0-10): 6 Patient History Medical History Opioid dependence (Chronic) Anemia of chronic disease (Chronic) Rib pain on right side (Chronic) GERD (gastroesophageal reflux disease) (Chronic) Anxiety (Chronic) Vitamin B12 deficiency (Chronic) Hyperlipidemia LDL goal <70 (Chronic) CAD (coronary artery disease) (Chronic) Chest pain (Chronic) Hypertension (Chronic) Multiple rib fractures (Inactive) Fall (Inactive) Surgical History H/O heart artery stent (Chronic) Family History Other No significant family history Social History Preferred Language: Romansh Communication Ability: Impaired Beliefs That Will Affect Care: None Current Living Situation: Spouse Other Information That Helps Us Care for You: No Feels Safe at Home: Yes Safety Concerns: Feels Safe At This Time Smoking Status: Former smoker Hx Substance Use: No Physical Exam Physical Exam: General: Patient sitting up in bed quietly in exam room in no acute distress. Patient was eating his breakfast. Speech and thought process appropriate. Mood and affect appropriate. Cognition intact. Patient oriented to person and place. Head: Normocephalic and atraumatic. ENT: No evidence of nasal or oral mucosal lesions. Oxygen in place via nasal cannula. Eyes: Pupils equal round reactive to light. Neck: Supple without adenopathy and full range of motion. Chest: Nontender to palpation of the costosternal junction. Patient is moderately tender along the posterior lateral chest wall at approximate level of T7-9 along the rib and intercostal space. Patient is moderately tender with AP and lateral compression. No visible abnormalities. No palpable abnormalities. Abdomen: Soft and nondistended. No organomegaly. Bowel sounds active. Lower extremities: Sensation intact without focal deficit. Strength 4+5 with dorsi and plantar flexion. No evidence of edema, erythema or skin breakdown. Neurologic: Cranial nerves grossly intact. Ambulatory function not witnessed. Results Diagnostic Review CT: non enhanced and reports reviewed CT Findings: [place], [place] [phone] CT Scan Report Patient: MEDARDO HILTON Date: 03/04/19 MR#: [id number]: [address] Acct ID:[id number]: Date: [address] [place] [address] Zip: [place] [address] Age: 78Location: 1E Sex: M [facility] Att Phy: Praneeth Tejada M.D.Diagnosis: ACUTE RESPIRATORY FAILURE, PNEUMONI A Mirela Phy: Юлия Harvey, [facility] Date: 03/04/19 Fam Phy: Interpreting Phy: Kyree Harvey MD Admit Phy: Praneeth Tejada M.D. Ordering Phy: Osmel Kimball M.D. cc: ~ CT OF THE CHEST WITHOUT IV CONTRAST CLINICAL HISTORY: Right-sided chest pain. Recent fall. Reevaluate right lung. COMPARISON STUDY: Chest CT February 25, 2019. TECHNIQUE: Axial images of the chest were obtained without IV contrast. Images were reviewed in the axial, sagittal, and coronal planes. IV contrast was not administered for this examination. Automated exposure control was utilized for the study. A dose lowering technique was utilized adhering to the principles of ALARA. FINDINGS: Acute mildly displaced fractures of the lateral right sixth, seventh and eighth ribs are again noted. There is no pneumothorax. Moderate emphysema is noted. There has been interval development of extensive right lower lobe consolidation since CT of February 25, 2019. There is mild consolidation within the right middle lobe as well. Minimal left basilar opacity may reflect an infectious process or atelectasis. There are secretions within the trachea, right mainstem bronchus and bronchus intermedius as well as right lower lobe segmental bronchi. There is no central obstructing mass. Dilated central pulmonary arteries are noted. The heart is mildly enlarged. There is extensive coronary artery calcification. There is no pericardial effusion. No acute thoracic spine fracture is present. The abdomen and pelvis will be reported separately. IMPRESSION: 1. Interval development of extensive right lower lobe consolidation since CT of February 25, 2019. Additional right middle lobe opacity with secretions within the airways. The findings suggest pneumonia, potentially on the basis of aspiration. 2.Redemonstration of mildly displaced right sixth, seventh and eighth rib fractures. No pneumothorax. 3. Emphysema. 4. Dilated central pulmonary arteries which suggests pulmonary arterial hypertension. Electronically signed by: Kyree Harvey M.D. 03/04/2019 7:06 AM Dictated: 03/04/19655 Transcribed: 03/04/19655 Radiology: reports reviewed Radiology Findings: [place], [place] [phone] XRay Report Patient: MEDARDO HILTON Date: 03/04/19 MR#: [id number]: [address] Acct ID:[id number]: Date: [address] [place] [address] Zip: [place] [address] Age: 78Location: 2S Sex: M Room/Bed: [facility] Att Phy: Chava Salazar MDDiagnosis: ACUTE RESPIRATORY FAILURE, PNEUMONIA Mirela Phy: Юлия Harvey MDService Date: 03/12/19 Fam Phy: Interpreting Phy: Erasmo Mckinley Admit Phy: Praneeth Tejada M.D. Ordering Phy: Chava Salazar MD cc: ~ XR chest 2V routine HISTORY: 78 years-old Male Shortness of breath acute shortness of breath COMPARISON: Chest radiograph 03/10/2019 TECHNIQUE: Portable AP view of the chest FINDINGS: Cardiac silhouette is enlarged, unchanged. Calcification of the thoracic aortic arch. Pulmonary vascular congestion with bilateral interstitial opacities. Right perihilar and right greater left bibasilar alveolar opacities with bilateral pleural effusions. The left pleural effusion appears slightly decreased in size from comparison. Emphysema. Degenerative changes of the shoulders and spine. IMPRESSION: 1. Cardiomegaly with persistent pulmonary vascular congestion and bilateral interstitial opacities. 2. Right greater than left bibasilar and right perihilar alveolar opacities redemonstrated suggestive of probable pneumonitis. 3. Bilateral pleural effusions, slightly decreased in size on the left. 4. Emphysema. The above report was generated using voice recognition software. It may contain grammatical, syntax or spelling errors. Electronically signed by: Gilles Mckinley M.D. 03/12/2019 8:34 AM Dictated: 03/12/19 0829 Transcribed: 03/12/19 0829
--- NOTE | 2019-03-12 15:41 | Hospitalist Progress Note ---
Date of Service March 12, 2019 Assessment & Plan (1) Acute respiratory failure with hypoxia and hypercapnia: Initially admitted to the intensive care unit; transferred out on 03/07. Was on vanc/aztreonam initially. Vanc stopped for negative MRSA swab. - Bronchoscopy on 03/06 showed thick secretions; however, all cultures negative so far. - Seen by pain management on 03/12 who felt that thoracic/interscalene blocks were not warranted. - Currently on 7 liters of nasal cannula. - On 03/10, thought for possible thoracentesis, but not enough fluid to tap. - Discussed with pulmonology on 03/11 & 03/12 -> Feels the pneumonia has been treated at this point, and he has continued atelectasis and merely needs time to recover. - On 03/12, due to interstitial fluid and elevated BNP, gave a single dose of Lasix 40mg IV to try to help improve volume status. (2) Pneumonia: See above (3) Multiple rib fractures: Patient had a fall ~02/21. He was seen in the ED on 02/25 for right chest pain and contusions. Was advised to be admitted, but decided to leave. Re- presented on 03/04 with evidence of pneumonia. - Lidocaine patches and oral meds presently working as long as the patient doesn't cough. - Encouraged incentive spirometry & getting into chair (4) Anemia of chronic disease: Baseline hgb ~9.5. Has been lower most of this admission at ~8. - Down to 6.9 on 03/10, but recheck was 7.7. No signs of bleeding. - Down to 7.0 on 03/11 - Transfused 1 unit of PRBCs on 03/11 with rebound to 8.7. - Still no signs of bleeding on exam; would consider CT chest if continues to fall to be sure there is no hemothorax. (5) Acute kidney injury: Baseline Cr ~2.0. Cr up to 4.2 on admission; gradually came back down. - Presently at baseline. (6) CAD (coronary artery disease): CAD/hypertension- On metoprolol PO BID 50 MG (7) Hypertension: See above. (8) Sepsis: Treatment for pneumonia as noted above. - Resolved by 03/11 (9) Hyperlipidemia LDL goal <70: RESTARTED ATROVASTATIN IN THE EVENING OF 03/05. (10) Vitamin B12 deficiency: Restarted home meds. (11) Anxiety: RESTARTED HOME MEDS. will monitor. (12) GERD (gastroesophageal reflux disease): On PPI (13) DVT prophylaxis: SCDs - Holding any chemoprophylaxis until hgb stable Subjective No change today. Denies shortness of breath. Reports stable rib pain. Review of Systems Review of Systems: All systems reviewed & are unremarkable except as noted in HPI & below Physical Exam Constitutional: WD/WN, vitals as above Eyes: EOM intact bilaterally; no conjunctival abnormality ENMT: external ear and nose normal, oropharynx normal Neck: trachea midline, no thyromegaly normal visual inspection Respiratory: normal respiratory effort, lungs clear to auscultation no respiratory distress Cardiovascular: RRR, no murmur, no edema Gastrointestinal (Abdomen): Inspection/Auscultation: abdomen normal to inspection; abdomen not distended Musculoskeletal: no cyanosis or clubbing, extremities motor strength 5/5 Skin: no rashes, warm and dry Neurologic: moves all extremities and awake Psychiatric: Orientation: alert, oriented to person and cooperative Results & Data Vital Signs (Past 12 Hours) Vital Signs Temp Pulse Pulse Pulse Resp BP Pulse Ox 03/12/19 12:20 37.0 C 104 H 19 112/61 89 L 03/12/19 08:00 108 H 03/12/19 07:39 37.2 C 112 H 14 132/72 88 L 03/12/19 07:15 114 H 18 92 (1) Pneumonia Laterality: right Lung location: lower lobe of lung Pneumonia type: due to unspecified organism Qualified Code(s): J18.1 - Lobar pneumonia, unspecified organism (2) Multiple rib fractures Encounter type: initial encounter Fracture type: closed Laterality: right Qualified Code(s): S22.41XA - Multiple fractures of ribs, right side, initial encounter for closed fracture (3) Sepsis Sepsis type: sepsis due to unspecified organism Qualified Code(s): A41.9 - Sepsis, unspecified organism
[2019-03-12] MEDS: MAGNESIUM SULFATE / D5W 1 GM/100 ML BAG IV SCH ×3 (16:18→18:06)
[2019-03-12] MEDS: MIRTAZAPINE SOLTAB 15 MG PO SCH (20:55)
[2019-03-12] MEDS: GABAPENTIN 300 MG CAP PO SCH (20:56)
[2019-03-12] MEDS: ATORVASTATIN 40 MG TAB PO SCH (20:56)
[2019-03-12] MEDS ORDERED: ACETAMINOPHEN 325 MG TAB ONE (20:59)
[2019-03-13] MEDS: OXYCODONE HCL IR 5 MG TAB (IMMEDIATE RELEASE) PO PRN ×5 (01:14→20:00)
[2019-03-13] MEDS: PIPERACILLIN/TAZOBACTAM 3.375 GM in DEXTROSE 5% 100 ML IV SCH ×3 (04:05→20:17)
[2019-03-13] MEDS: ALBUT/IPRATROP 3MG/0.5MG NEB 3 ML VIAL NEB SCH ×2 (07:21→19:32)
[2019-03-13 07:23] LABS: Hematocrit (blood only) 23.6 % (42-52); Hemoglobin 7.8 g/dL (14.0-18.0); Mean Corpuscular Hgb Conc 33.1 g/dL (32-36); Mean Corpuscular Volume 93.7 fL (80-100); Mean Platelet Volume 8.7 fL (7.4-10.4); Platelet Count 607 K/uL (130-400); RDW Coefficient of Variation 14.6 % (11.5-14.5); RDW Standard Deviation 49.7 fL (36.4-46.3); Red Blood Count 2.52 M/uL (4.7-6.1); White Blood Count 16.01 K/uL (4.8-10.8)
[2019-03-13 07:59] LABS: BUN Creatinine Ratio 21.5 (10-20); Calcium 8.7 mg/dl (8.5-10.1); Creatinine Clr Calc Pharmacy 26.1 ml/min; Est GFR (African American) 32.5; Est GFR (Non-African American) 28.1; Potassium 4.6 mmol/L (3.5-5.1)
[2019-03-13] MEDS: METOPROLOL SUCC 25MG EXT REL TAB PO SCH (08:20)
[2019-03-13] MEDS: FOLIC ACID 1 MG TAB PO SCH (08:21)
[2019-03-13] MEDS: AMLODIPINE BESYLATE 5 MG TAB PO SCH ×2 (08:21→20:03)
[2019-03-13] MEDS: CYANOCOBALAMIN 500 MCG TABLET (VITAMIN B-12) PO SCH (08:21)
[2019-03-13] MEDS: FERROUS SULFATE 325 MG TAB PO SCH (08:21)
[2019-03-13] MEDS: PRIMIDONE 50 MG TAB PO SCH (08:21)
[2019-03-13] MEDS: LIDOCAINE 5% 1 PATCH TD SCH (08:21)
[2019-03-13] MEDS: ASPIRIN 81 MG ECTAB PO SCH (08:21)
[2019-03-13] MEDS: THIAMINE HCL 100 MG TAB PO SCH (08:21)
[2019-03-13] MEDS: CHOLECALCIFEROL 1,000 UNITS TAB PO SCH (08:21)
[2019-03-13] MEDS: PANTOprazole 40 MG TAB PO SCH (08:21)
[2019-03-13] MEDS: ACETAMINOPHEN 325 MG TAB PO PRN (13:00)
--- NOTE | 2019-03-13 15:50 | Palliative Care Progress Note ---
Date of Service March 13, 2019 Assessment & Plan (1) Goals of care, counseling/discussion: -Patient more alert in regards to mental status. He does not comprehend his medical condition or the severity of his illness. -Was on high-flow nasal cannula, now on O2 at 6 L nasal cannula. -Patient is OOB today to chair. -Passed his swallow evaluation and is eating. -Will attempt to contact regarding goals of care given patient's current status -At baseline, family describes that patient does have some mild cognitive deficits-- unable to dial a number on the phone, could not figure out how to use the TV remote that he has been using for decades, could not write a letter or send out a piece of mail, etc. They confirmed that patient has had extremely poor nutritional intake for years. states that patient would say that eating "tired him out." Family also described that patient is the type of person who would avoid any medical issues and did not like to seek medical treatment because he had multiple siblings who seemed fine, went into the hospital, and soon after. -Having said all that, the family believes patient still has a good quality of life and that patient would not be ready to "give up." They state at the time of admission that patient will not be able to live at home with his any more and will need placement after hospitalization-will need to have PT/OT evaluate and have further discussions with and family. -Will continue to follow and assist patient and family with medical decision making. (2) Rib pain on right side: Controlled with PRN oxycodone (3) Acute renal failure (ARF): Improved-creatinine 2.2, prior baseline 2.0 (4) Acute respiratory failure with hypoxia and hypercapnia: O2 requirement improving-he was weaned off high flow nasal cannula down to 6 L. White count is now rising and patient did spike a fever last evening to 101.3-CT scan would be helpful in further delineating his right pleural effusion (5) Pneumonia: On Zosyn and scheduled nebs, status post bronc on 03/06 (2) Rib pain on right side: (3) Acute respiratory failure with hypoxia and hypercapnia: (4) Pneumonia: (5) Acute renal failure (ARF): Subjective Patient seen and examined in his room-no family or friends at bedside. Patient is more alert on exam today. Patient continues to have poor insight regarding his medical condition. Patient has been able to wean his oxygen down to 6 L nasal cannula, he continues to have a significant pleural effusion-this was characterizes a complex pleural effusion and not amenable to tap per Dr. Arora. Patient continues on IV Zosyn and scheduled nebs. Patient's p.o. intake is improving, pain is under fair control-he required 6 doses of oxycodone in 24 hours and 1 dose of Tylenol. Patient does have a history of opioid dependence. Patient did spike a fever to 101.3 last evening-he has been afebrile since. Patient's white count has been coming down, was as low as 11k, now rising again and was 16 this a.m. Review of Systems Review of Systems: ROS unreliable due to dementia Patient denied fever, chills, chest pain, increased shortness of breath, or abdominal pain Physical Exam Physical Exam: PE: Patient awake and alert, appears comfortable at rest lying in bed HEENT: EOMI, hearing within normal limits Respiratory: Diminished breath sounds right base, on O2 at 6 L nasal cannula CV: Regular rate on exam, no edema Abdomen: Soft, nontender Neuro: Positive cognitive deficits Results & Data Vital Signs (Past 12 Hours) Vital Signs Temp Pulse Pulse Pulse Resp BP BP 03/13/19 11:49 98.4 F 103 H 18 121/71 03/13/19 09:58 108 H 03/13/19 08:00 108 H 03/13/19 07:51 99.0 F 111 H 18 119/64 03/13/19 07:22 108 H 03/13/19 03:45 97.9 F 101 H 18 117/63 Pulse Ox 03/13/19 11:49 95 03/13/19 09:58 03/13/19 08:00 03/13/19 07:51 84 L 03/13/19 07:22 89 L 03/13/19 03:45 90 Time Spent Attending Total time spent 25 minutes with greater than 50% of the time spent at bedside assessing patient's current status and discussing his goals. (1) Pneumonia Laterality: right Lung location: lower lobe of lung Pneumonia type: due to unspecified organism Qualified Code(s): J18.1 - Lobar pneumonia, unspecified organism : Pneumonia Qualifiers: Pneumonia type: due to unspecified organism Laterality: right Lung location: lower lobe of lung Qualified Code(s): J18.1 - Lobar pneumonia, unspecified organism Fracture, ribs Qualifiers: Encounter type: initial encounter Rib fracture type: multiple ribs Fracture type: closed Laterality: right Qualified Code(s): S22.41XA - Multiple fractures of ribs, right side, initial encounter for closed fracture Sepsis Qualifiers: Sepsis type: sepsis due to unspecified organism Qualified Code(s): A41.9 - Sepsis, unspecified organism Renal failure Qualifiers: Renal failure chronicity: acute Acute renal failure type: unspecified Qualified Code(s): N17.9 - Acute kidney failure, unspecified
--- NOTE | 2019-03-13 17:20 | Hospitalist Progress Note ---
Date of Service March 13, 2019 Assessment & Plan (1) Acute respiratory failure with hypoxia and hypercapnia: Initially admitted to the intensive care unit; transferred out on 03/07. Was on vanc/aztreonam initially. Vanc stopped for negative MRSA swab. - Bronchoscopy on 03/06 showed thick secretions; however, all cultures negative so far. - Seen by pain management on 03/12 who felt that thoracic/interscalene blocks were not warranted. - On 03/10, thought for possible thoracentesis, but not enough fluid to tap. - Discussed with pulmonology on 03/11 & 03/12 -> Feels the pneumonia has been treated at this point, and he has continued atelectasis and merely needs time to recover. - On 03/12, he had a fever, and by 03/13, his WBC is up to 16. Discussed with pulmonology who feel adding vancomycin could be warranted. - Plan for CT chest if he is willing; discussed multiple times on 03/13 with the patient presently refusing. (2) Pneumonia: See above (3) Multiple rib fractures: Patient had a fall ~02/21. He was seen in the ED on 02/25 for right chest pain and contusions. Was advised to be admitted, but decided to leave. Re- presented on 03/04 with evidence of pneumonia. - Lidocaine patches and oral meds presently working as long as the patient doesn't cough. - Encouraged incentive spirometry & getting into chair (4) Anemia of chronic disease: Baseline hgb ~9.5. Has been lower most of this admission at ~8. - Down to 6.9 on 03/10, but recheck was 7.7. No signs of bleeding. - Down to 7.0 on 03/11 - Transfused 1 unit of PRBCs on 03/11 with rebound to 8.7. - Down to 7.8 on 03/13 - Still no signs of bleeding on exam; would consider CT chest if he is willing (5) Acute kidney injury: Baseline Cr ~2.0. Cr up to 4.2 on admission; gradually came back down. - Presently at baseline. (6) CAD (coronary artery disease): CAD/hypertension- On metoprolol PO BID 50 MG (7) Hypertension: See above. (8) Sepsis: Treatment for pneumonia as noted above. - Resolved by 03/11 (9) Hyperlipidemia LDL goal <70: RESTARTED ATROVASTATIN IN THE EVENING OF 03/05. (10) Vitamin B12 deficiency: Restarted home meds. (11) Anxiety: RESTARTED HOME MEDS. will monitor. (12) GERD (gastroesophageal reflux disease): On PPI (13) DVT prophylaxis: SCDs - Holding any chemoprophylaxis until hgb stable Subjective Feels no better than last few days; however, he also doesn't really report much shortness of breath. Review of Systems Review of Systems: All systems reviewed & are unremarkable except as noted in HPI & below Physical Exam Constitutional: WD/WN, vitals as above Eyes: EOM intact bilaterally; no conjunctival abnormality ENMT: external ear and nose normal, oropharynx normal Neck: trachea midline, no thyromegaly normal visual inspection Respiratory: normal respiratory effort, lungs clear to auscultation no respiratory distress Cardiovascular: RRR, no murmur, no edema Gastrointestinal (Abdomen): Inspection/Auscultation: abdomen normal to inspection; abdomen not distended Musculoskeletal: no cyanosis or clubbing, extremities motor strength 5/5 Skin: no rashes, warm and dry Neurologic: moves all extremities and awake Psychiatric: Orientation: alert, oriented to person and cooperative Results & Data Vital Signs (Past 12 Hours) Vital Signs Temp Pulse Pulse Resp BP BP Pulse Ox 03/13/19 16:00 98 H 03/13/19 15:51 36.7 C 92 H 20 113/64 92 03/13/19 11:49 36.9 C 103 H 18 121/71 95 03/13/19 09:58 108 H 03/13/19 08:00 108 H 03/13/19 07:51 37.2 C 111 H 18 119/64 84 L 03/13/19 07:22 108 H 89 L (1) Pneumonia Laterality: right Lung location: lower lobe of lung Pneumonia type: due to unspecified organism Qualified Code(s): J18.1 - Lobar pneumonia, unspecified organism (2) Multiple rib fractures Encounter type: initial encounter Fracture type: closed Laterality: right Qualified Code(s): S22.41XA - Multiple fractures of ribs, right side, initial encounter for closed fracture (3) Sepsis Sepsis type: sepsis due to unspecified organism Qualified Code(s): A41.9 - Sepsis, unspecified organism
[2019-03-13] MEDS ORDERED: VANCOMYCIN CONSULT ACTIVE PRN (18:35)
[2019-03-13] MEDS ORDERED: VANCOMYCIN HCL 1,500 MG in SODIUM CHLORIDE 0.9% 500 ML IV STA (18:56)
--- NOTE | 2019-03-13 19:03 | Pharmacy Report ---
Pharmacy Abx Dose Short Note - Date of Service March 13, 2019 - Assessment & Plan A/P Vancomycin is being added to antimicrobial regimen. Pt's renal fxn has been labile this admission. SCr 3.8-->1.9--2.06-->2.2. Difficult to dose Mr. Hilton based on population p'kinetics. Will provide 1500mg (23mg/kg) x1 and order random for AM of 03/14/19. I also ordered a f/u MRSA nasal swab to potentially help in deescalation. Pharmacy will continue to follow and will adjust dose/frequency as necessary. Thank you.
[2019-03-13] MEDS: GABAPENTIN 300 MG CAP PO SCH (20:03)
[2019-03-13] MEDS: MIRTAZAPINE SOLTAB 15 MG PO SCH (20:03)
[2019-03-13] MEDS: ATORVASTATIN 40 MG TAB PO SCH (20:03)
[2019-03-14] MEDS: PIPERACILLIN/TAZOBACTAM 3.375 GM in DEXTROSE 5% 100 ML IV SCH (03:49)
[2019-03-14] MEDS: OXYCODONE HCL IR 5 MG TAB (IMMEDIATE RELEASE) PO PRN ×5 (03:52→20:42)
[2019-03-14 07:24] LABS: Basophils # (auto) 0.04 K/uL (0-0.2); Basophils % (auto) 0.3 %; Eosinophils # (auto) 0.69 K/uL (0-0.5); Eosinophils % (auto) 5.3 %; Hematocrit (blood only) 21.8 % (42-52); Hemoglobin 7.1 g/dL (14.0-18.0); Immature Granulocytes # (auto) 0.07 K/uL (0.00-0.02); Immature Granulocytes % (auto) 0.5 %; Lymphocytes # (auto) 1.47 K/uL (1.2-3.4); Lymphocytes % (auto) 11.3 %; Mean Corpuscular Hgb Conc 32.6 g/dL (32-36); Mean Corpuscular Volume 95.6 fL (80-100); Mean Platelet Volume 8.9 fL (7.4-10.4); Monocytes # (auto) 0.81 K/uL (0.11-0.59); Monocytes % (auto) 6.3 %; Neutrophils # (auto) 9.88 K/uL (1.4-6.5); Neutrophils % (auto) 76.3 %; Platelet Count 624 K/uL (130-400); RDW Coefficient of Variation 14.5 % (11.5-14.5); RDW Standard Deviation 50.1 fL (36.4-46.3); Red Blood Count 2.28 M/uL (4.7-6.1); White Blood Count 12.96 K/uL (4.8-10.8)
[2019-03-14] MEDS: ALBUT/IPRATROP 3MG/0.5MG NEB 3 ML VIAL NEB SCH ×2 (07:40→19:16)
[2019-03-14 07:52] LABS: RBC Morphology Unremarkable
[2019-03-14 07:59] LABS: BUN Creatinine Ratio 20.5 (10-20); Calcium 8.7 mg/dl (8.5-10.1); Creatinine Clr Calc Pharmacy 24.6 ml/min; Est GFR (African American) 30.5; Est GFR (Non-African American) 26.3; Potassium 4.7 mmol/L (3.5-5.1)
[2019-03-14] MEDS: CYANOCOBALAMIN 500 MCG TABLET (VITAMIN B-12) PO SCH (08:03)
[2019-03-14] MEDS: CHOLECALCIFEROL 1,000 UNITS TAB PO SCH (08:03)
[2019-03-14] MEDS: LIDOCAINE 5% 1 PATCH TD SCH (08:03)
[2019-03-14] MEDS: FERROUS SULFATE 325 MG TAB PO SCH (08:04)
[2019-03-14] MEDS: ASPIRIN 81 MG ECTAB PO SCH (08:04)
[2019-03-14] MEDS: FOLIC ACID 1 MG TAB PO SCH (08:04)
[2019-03-14] MEDS: PRIMIDONE 50 MG TAB PO SCH (08:04)
[2019-03-14] MEDS: METOPROLOL SUCC 25MG EXT REL TAB PO SCH (08:04)
[2019-03-14] MEDS: PANTOprazole 40 MG TAB PO SCH (08:04)
[2019-03-14] MEDS: THIAMINE HCL 100 MG TAB PO SCH (08:05)
[2019-03-14] MEDS: AMLODIPINE BESYLATE 5 MG TAB PO SCH ×2 (08:05→20:44)
[2019-03-14] MEDS ORDERED: VANCOMYCIN HCL 1,000 MG in SODIUM CHLORIDE 0.9% 250 ML IV SCH (09:00)
[2019-03-14] MEDS: DOXYCYCLINE HYCLATE 100 MG CAP PO SCH ×2 (12:54→20:45)
--- NOTE | 2019-03-14 15:17 | Hospitalist Progress Note ---
Date of Service March 14, 2019 Assessment & Plan (1) Acute respiratory failure with hypoxia and hypercapnia: Initially admitted to the intensive care unit; transferred out on 03/07. Was on vanc/aztreonam initially. Vanc stopped for negative MRSA swab. - Bronchoscopy on 03/06 showed thick secretions; however, all cultures negative so far. - Seen by pain management on 03/12 who felt that thoracic/interscalene blocks were not warranted. - On 03/10, thought for possible thoracentesis, but not enough fluid to tap. - Discussed with pulmonology on 03/11 & 03/12 -> Feels the pneumonia has been treated at this point, and he has continued atelectasis and merely needs time to recover. - On 03/12, he had a fever, and by 03/13, his WBC is up to 16. Discussed with pulmonology who feel adding vancomycin could be warranted. - On 03/14, WBC and O2 demand down. Will switch to PO doxy & Augmentin for a 5- day course. This is extra long for a pneumonia, but want to cover all bacteria well given his spotty coverage of Gram(+) while on the aztreonam only. (2) Pneumonia: See above (3) Multiple rib fractures: Patient had a fall ~02/21. He was seen in the ED on 02/25 for right chest pain and contusions. Was advised to be admitted, but decided to leave. Re- presented on 03/04 with evidence of pneumonia. - Lidocaine patches and oral meds presently working. - Encouraged incentive spirometry & getting into chair - Seen by pain management who felt that interventional techniques were not warranted at this time. (4) Anemia of chronic disease: Baseline hgb ~9.5. Has been lower most of this admission at ~8. - Down to 6.9 on 03/10, but recheck was 7.7. No signs of bleeding. - Down to 7.0 on 03/11 - Transfused 1 unit of PRBCs on 03/11 with rebound to 8.7. - Down to 7.1 on 03/14 - Still no signs of bleeding on exam; would consider CT chest if he is willing (5) Acute kidney injury: Baseline Cr ~2.0. Cr up to 4.2 on admission; gradually came back down. - Presently at baseline. (6) CAD (coronary artery disease): CAD/hypertension- On metoprolol PO BID 50 MG (7) Hypertension: See above. (8) Sepsis: Treatment for pneumonia as noted above. - Resolved by 03/11 (9) Hyperlipidemia LDL goal <70: RESTARTED ATROVASTATIN IN THE EVENING OF 03/05. (10) Vitamin B12 deficiency: Restarted home meds. (11) Anxiety: RESTARTED HOME MEDS. will monitor. (12) GERD (gastroesophageal reflux disease): On PPI (13) DVT prophylaxis: SCDs - Holding any chemoprophylaxis until hgb stable Subjective Feeling better this morning. Somewhat more optimistic. Review of Systems Review of Systems: All systems reviewed & are unremarkable except as noted in HPI & below Physical Exam Constitutional: WD/WN, vitals as above Eyes: EOM intact bilaterally; no conjunctival abnormality ENMT: external ear and nose normal, oropharynx normal Neck: trachea midline, no thyromegaly normal visual inspection Respiratory: normal respiratory effort, lungs clear to auscultation no respiratory distress Cardiovascular: RRR, no murmur, no edema Gastrointestinal (Abdomen): Inspection/Auscultation: abdomen normal to inspection; abdomen not distended Musculoskeletal: no cyanosis or clubbing, extremities motor strength 5/5 Skin: no rashes, warm and dry Neurologic: moves all extremities and awake Psychiatric: Orientation: alert, oriented to person and cooperative Results & Data Vital Signs (Past 12 Hours) Vital Signs Temp Pulse Pulse Resp BP Pulse Ox 03/14/19 15:07 36.7 C 93 H 20 128/65 90 03/14/19 10:57 37.1 C 111 H 20 150/70 H 91 03/14/19 07:43 93 H 16 93 03/14/19 07:34 37.0 C 98 H 20 121/69 90 03/14/19 04:57 36.7 C 106 H 20 139/69 91 PG Care Time/CCT Total # of Minutes Spent Total Time Spent with Patient: Total time spent is greater than 50% in coordination of care (as documented) at patient's floor/unit and/or counseling patient: 35 (1) Pneumonia Laterality: right Lung location: lower lobe of lung Pneumonia type: due to unspecified organism Qualified Code(s): J18.1 - Lobar pneumonia, unspecified organism (2) Multiple rib fractures Encounter type: initial encounter Fracture type: closed Laterality: right Qualified Code(s): S22.41XA - Multiple fractures of ribs, right side, initial encounter for closed fracture (3) Sepsis Sepsis type: sepsis due to unspecified organism Qualified Code(s): A41.9 - Sepsis, unspecified organism
[2019-03-14] MEDS: AMOXICILLIN/CLAVULANATE 500 MG TAB PO SCH (16:52)
[2019-03-14] MEDS: MIRTAZAPINE SOLTAB 15 MG PO SCH (20:44)
[2019-03-14] MEDS: GABAPENTIN 300 MG CAP PO SCH (20:46)
[2019-03-14] MEDS: ATORVASTATIN 40 MG TAB PO SCH (20:46)
[2019-03-15] MEDS: ALBUT/IPRATROP 3MG/0.5MG NEB 3 ML VIAL NEB SCH ×2 (06:53→19:22)
[2019-03-15 07:39] LABS: Basophils # (auto) 0.07 K/uL (0-0.2); Basophils % (auto) 0.6 %; Eosinophils # (auto) 0.66 K/uL (0-0.5); Eosinophils % (auto) 5.2 %; Hematocrit (blood only) 23.6 % (42-52); Hemoglobin 7.7 g/dL (14.0-18.0); Immature Granulocytes # (auto) 0.06 K/uL (0.00-0.02); Immature Granulocytes % (auto) 0.5 %; Lymphocytes # (auto) 2.03 K/uL (1.2-3.4); Mean Corpuscular Hgb Conc 32.6 g/dL (32-36); Mean Corpuscular Volume 96.3 fL (80-100); Monocytes # (auto) 0.86 K/uL (0.11-0.59); Monocytes % (auto) 6.8 %; Neutrophils # (auto) 9.03 K/uL (1.4-6.5); Neutrophils % (auto) 70.9 %; Platelet Count 677 K/uL (130-400); RDW Coefficient of Variation 14.4 % (11.5-14.5); Red Blood Count 2.45 M/uL (4.7-6.1); White Blood Count 12.71 K/uL (4.8-10.8)
[2019-03-15 08:04] LABS: Calcium 9.1 mg/dl (8.5-10.1); Est GFR (African American) 36.5; Est GFR (Non-African American) 31.5; Potassium 4.8 mmol/L (3.5-5.1)
--- NOTE | 2019-03-15 08:25 | XRay Report ---
XR chest 2V routine HISTORY: 78 years-old Male Shortness of breath; monitoring effusions acute shortness of breath COMPARISON: Chest radiographs 03/12/2019 TECHNIQUE: AP and lateral views of the chest FINDINGS: Cardiac silhouette is enlarged, unchanged. Calcification of the thoracic aortic arch. No pneumothorax . Small left pleural effusion is unchanged. Right pleural effusion with right lung base and right mid lung extensive opacities are redemonstrated and have worsened in the interval. Emphysema with chronic interstitial coarsening. Slightly improved aeration of the left lung base. Degenerative changes of t he shoulders and spine. Unchanged fractures of the posterior lateral right sixth, seventh and eighth ribs. IMPRESSION: 1. Unchanged right pleural effusion with progressively worsened right lung base and right midlung jaya eolar opacities. 2. Slightly improved aeration of the left lung base. The above report was generated using voice recognition software. It may contain grammatical, syntax o r spelling errors. Electronically signed by: Gilles Mckinley M.D. 03/15/2019 8:24 AM
[2019-03-15] MEDS: OXYCODONE HCL IR 5 MG TAB (IMMEDIATE RELEASE) PO PRN ×4 (08:36→23:22)
[2019-03-15] MEDS: CHOLECALCIFEROL 1,000 UNITS TAB PO SCH (08:38)
[2019-03-15] MEDS: CYANOCOBALAMIN 500 MCG TABLET (VITAMIN B-12) PO SCH (08:38)
[2019-03-15] MEDS: FERROUS SULFATE 325 MG TAB PO SCH (08:39)
[2019-03-15] MEDS: PANTOprazole 40 MG TAB PO SCH (08:39)
[2019-03-15] MEDS: DOXYCYCLINE HYCLATE 100 MG CAP PO SCH ×2 (08:39→20:53)
[2019-03-15] MEDS: AMLODIPINE BESYLATE 5 MG TAB PO SCH ×2 (08:39→20:51)
[2019-03-15] MEDS: FOLIC ACID 1 MG TAB PO SCH (08:39)
[2019-03-15] MEDS: METOPROLOL SUCC 25MG EXT REL TAB PO SCH (08:39)
[2019-03-15] MEDS: ASPIRIN 81 MG ECTAB PO SCH (08:39)
[2019-03-15] MEDS: THIAMINE HCL 100 MG TAB PO SCH (08:39)
[2019-03-15] MEDS: PRIMIDONE 50 MG TAB PO SCH (08:40)
[2019-03-15] MEDS: LIDOCAINE 5% 1 PATCH TD SCH (08:40)
[2019-03-15] MEDS: AMOXICILLIN/CLAVULANATE 500 MG TAB PO SCH ×2 (08:40→17:10)
--- NOTE | 2019-03-15 12:33 | Pulmonology Progress Note ---
Date of Service March 15, 2019 Assessment & Plan (1) Pneumonia: Elderly man with coronary artery disease, chronic opioid dependence, underlying COPD initially admitted with severe right lower lobe and right middle lobe community-acquired pneumonia. He appears to be slowly recovering but jhoan ins oxygen dependent. It is unclear whether he will henceforth need chronic oxygen at home but it is quite possible Recommend: 1. Complete thought plan 5-day course of Augmentin and doxycycline 2. PT and OT for mobilization and home safety eval 3. Wean oxygen as tolerated. Assess O2 needs at rest and with ambulation prior to discharge. Laterality: right Lung location: lower lobe of lung Pneumonia type: due to unspecified organism Qualified Code(s): J18.1 - Lobar pneumonia, unspecified organism Subjective Asked to reevaluate this patient by Dr. Salazar. 78-year-old man initially admitted March 04 with severe right middle and right lower lobe pneumonia. Required ICU but not intubation on admission. Treated initially with Azactam and vancomycin then switched to Zosyn alone then vancomycin added again. Now on Augmentin and doxycycline with plans for 5 more days of antibiotics. He is afebrile. He denies shortness of breath and says his cough is minimal. Overall he is clinically feeling better. He does not appear to be in any distress. Chest x-ray shows persistence of infiltrates but no worsening. Review of his CT scan shows he does have underlying emphysematous change; he has a significant smoking history in the past but has not been a smoker in recent years. He is currently requiring 6 L nasal oxygen to maintain saturation 90 to 91% at rest. He has not been very mobile since hospitalization. Review of Systems Review of Systems: All systems reviewed & are unremarkable except as noted in HPI & below Physical Exam Physical Exam: Elderly man, awake alert no acute distress, feeding himself without difficulty Head normocephalic atraumatic, PERRLA EOMI sclera anicteric Neck supple no JVD adenopathy or bruits trachea midline Chest few sparse crackles right lower lobe posteriorly, no wheezing no accessory muscle tach regular rhythm no murmurs rubs or gallops Abdomen soft nontender no masses no organomegaly Extremities warm well perfused no cyanosis clubbing or edema Neuro nonfocal Skin unremarkable Results & Data Vital Signs (Past 12 Hours) Vital Signs Temp Pulse Pulse Resp BP Pulse Ox 03/15/19 11:35 36.9 C 94 H 20 135/73 92 03/15/19 07:36 36.9 C 94 H 20 125/63 90 03/15/19 06:55 89 18 93 03/15/19 04:24 36.7 C 97 H 19 137/68 92 Laboratory Results 03/15/19 03/15/19 Range/Units 07:15 07:15 WBC 12.71 H (4.8-10.8) K/uL RBC 2.45 L (4.7-6.1) M/uL Hgb 7.7 L (14.0-18.0) g/dL Hct 23.6 L (42-52) % MCV 96.3 (80-100) fL MCH 31.4 (25-34) pg MCHC 32.6 (32-36) g/dL RDW Std Deviation 51.0 H (36.4-46.3) fL RDW Coeff of Lucas 14.4 (11.5-14.5) % Plt Count 677 H (130-400) K/uL MPV 9.0 (7.4-10.4) fL Immature Gran % (Auto) 0.5 % Neut % (Auto) 70.9 % Lymph % (Auto) 16.0 % [place] % (Auto) 6.8 % Eos % (Auto) 5.2 % Baso % (Auto) 0.6 % Immature Gran # (Auto) 0.06 H (0.00-0.02) K/uL Neut # (Auto) 9.03 H (1.4-6.5) K/uL Lymph # (Auto) 2.03 (1.2-3.4) K/uL [place] # (Auto) 0.86 H (0.11-0.59) K/uL Eos # (Auto) 0.66 H (0-0.5) K/uL Baso # (Auto) 0.07 (0-0.2) K/uL Sodium 140 (136-145) mmol/L Potassium 4.8 (3.5-5.1) mmol/L Chloride 105 (98-107) mmol/L Carbon Dioxide 30 (21-32) mmol/L Anion Gap 5.0 (3-11) BUN 44 H (7-18) mg/dl Creatinine 2.00 H D (0.6-1.4) mg/dl Est Cr Clr Drug Dosing 29.0 ml/min Est GFR ( Amer) 36.5 Est GFR (Non-Af Amer) 31.5 BUN/Creatinine Ratio 22.0 H (10-20) Glucose 91 (70-99) mg/dl Calcium 9.1 (8.5-10.1) mg/dl Medications Administered Home Medications Medication Instructions Recorded Confirmed Last Taken amlodipine 5 mg PO BID 02/25/19 03/04/19 03/03/19 aspirin 81 mg PO QA 02/25/19 03/04/19 03/03/19 atorvastatin 40 mg PO QPM 02/25/19 03/04/19 03/03/19 buspirone 5 mg PO TID PRN 02/25/19 03/04/19 Unknown cholecalciferol (vitamin D3) 1,000 unit PO [facility] 02/25/19 03/04/19 03/03/19 [Vitamin D3] cyanocobalamin (vitamin B-12) 1,000 mcg PO [facility] 02/25/19 03/04/19 03/03/19 [Vitamin B-12] gabapentin 600 mg PO 02/25/19 03/04/19 03/03/19 metoprolol succinate 25 mg PO DAILY 02/25/19 03/04/19 03/03/19 mirtazapine 45 mg PO 02/25/19 03/04/19 03/03/19 nitroglycerin 0.4 mg SUBLINGUAL DIRECTED PRN 02/25/19 03/04/19 Unknown omeprazole 40 mg PO [facility] 02/25/19 03/04/19 03/03/19 primidone 50 mg PO DAILY 02/25/19 03/04/19 03/03/19 morphine 15 - 30 mg PO Q4 PRN 03/04/19 03/04/19 03/03/19 Active Medications Generic Name Dose Route Start Last Admin Trade Name Freq PRN Reason Stop Dose Admin Acetaminophen 650 mg 03/12/19 20:56 03/13/19 13:00 Tylenol PO 04/11/19 20:55 650 mg Q4H PRN Administration Fever Albuterol 3 ml 03/09/19 20:00 03/15/19 06:53 Duoneb NEB 04/08/19 19:59 3 ml BIDR SANDRA Administration Amlodipine Besylate 5 mg 03/05/19 21:00 03/15/19 08:39 Norvasc PO 04/04/19 20:59 5 mg BID SANDRA Administration Amoxicillin/Clavulanate Potassium 1 tab 03/14/19 17:00 03/15/19 08:40 Augmentin 500mg PO 03/19/19 08:01 1 tab BIDM SANDRA Administration Protocol Aspirin 81 mg 03/05/19 09:30 03/15/19 08:39 Ecotrin Ectab PO 04/04/19 09:29 81 mg QAM SANDRA Administration Atorvastatin Calcium 40 mg 03/05/19 21:00 03/14/19 20:46 Lipitor PO 04/04/19 20:59 40 mg QPM SANDRA Administration Buspirone HCl 5 mg 03/05/19 09:18 03/14/19 16:51 Buspar PO 04/04/19 09:17 5 mg TID PRN Administration Anxiety Cyanocobalamin 1,000 mcg 03/04/19 09:00 03/15/19 08:38 Vitamin B-12 PO 04/03/19 08:59 1,000 mcg QAM SANDRA Administration Doxycycline Hyclate 100 mg 03/14/19 11:00 03/15/19 08:39 Vibramycin PO 03/18/19 23:59 100 mg BID SANDRA Administration Ferrous Sulfate 325 mg 03/04/19 11:00 03/15/19 08:39 Feosol PO 04/03/19 10:59 325 mg QAM SANDRA Administration Folic Acid 1 mg 03/05/19 11:00 03/15/19 08:39 Folvite PO 04/04/19 10:59 1 mg QAM SANDRA Administration Gabapentin 600 mg 03/05/19 21:00 03/14/19 20:46 Neurontin PO 04/04/19 20:59 600 mg HS SANDRA Administration Lidocaine 2 patch 03/08/19 18:15 03/15/19 08:40 Lidoderm 5% TD 04/07/19 18:14 2 patch QAM SANDRA Administration Metoprolol Succinate 50 mg 03/07/19 09:00 03/15/19 08:39 Toprol Xl PO 04/06/19 08:59 50 mg QAM SANDRA Administration Mirtazapine 45 mg 03/05/19 21:00 03/14/19 20:44 Remeron Solutab PO 04/04/19 20:59 45 mg HS SANDRA Administration Miscellaneous 1 ea 03/04/19 21:00 03/14/19 20:47 Remove Lidoderm Patch N/A 04/03/19 20:59 1 ea DAILY@2100 SANDRA Administration Oxycodone HCl 7.5 mg 03/08/19 18:07 03/15/19 08:36 Roxicodone Immediate Rel PO 03/18/19 08:59 7.5 mg Q4 PRN Administration Pain Pantoprazole Sodium 40 mg 03/05/19 09:30 03/15/19 08:39 Protonix PO 04/04/19 09:29 40 mg QAM SANDRA Administration Primidone 50 mg 03/04/19 09:00 03/15/19 08:40 Primidone PO 04/03/19 08:59 50 mg DAILY SANDRA Administration Thiamine HCl 100 mg 03/04/19 11:00 03/15/19 08:39 Vitamin B-1 PO 04/03/19 10:59 100 mg QAM SANDRA Administration Vitamin D 1,000 units 03/05/19 09:30 03/15/19 08:38 Vitamin D3 PO 04/04/19 09:29 1,000 units QAM SANDRA Administration
--- NOTE | 2019-03-15 13:58 | Hospitalist Progress Note ---
Date of Service March 15, 2019 Assessment & Plan (1) Acute respiratory failure with hypoxia and hypercapnia: Initially admitted to the intensive care unit; transferred out on 03/07. Was on vanc/aztreonam initially. Vanc stopped for negative MRSA swab. - Bronchoscopy on 03/06 showed thick secretions; however, all cultures negative so far. - Seen by pain management on 03/12 who felt that thoracic/interscalene blocks were not warranted. - On 03/10, thought for possible thoracentesis, but not enough fluid to tap. - WBC and O2 demand down. - Switched to PO doxy & Augmentin for a 5-day course. This is extra long for a pneumonia, but want to cover all bacteria well given his spotty coverage of Gram(+) while on the aztreonam only. - Seen by pulm on 03/15 -> Slow improvement expected, but no change in course needed. (2) Pneumonia: See above (3) Multiple rib fractures: Patient had a fall ~02/21. He was seen in the ED on 02/25 for right chest pain and contusions. Was advised to be admitted, but decided to leave. Re- presented on 03/04 with evidence of pneumonia. - Encouraged incentive spirometry & getting into chair - Seen by pain management on 03/12 who felt that interventional techniques were not warranted at this time. - Lidocaine patches and oral meds presently working. (4) Anemia of chronic disease: Baseline hgb ~9.5. Has been lower most of this admission at ~8. - Down to 6.9 on 03/10, but recheck was 7.7. No signs of bleeding. - Down to 7.0 on 03/11 - Transfused 1 unit of PRBCs on 03/11 with rebound to 8.7. - Down to 7.1 on 03/14, but back up to 7.7 the next day. - Still no signs of bleeding on exam; will try to minimize blood draws as his anemia is likely partially iatrogenic and partly from chronic disease. (5) Acute kidney injury: Baseline Cr ~2.0. Cr up to 4.2 on admission; gradually came back down. - At baseline on 03/15. (6) CAD (coronary artery disease): No chest pain this admission apart from his right-sided, reproducible rib pain. - On metoprolol XL 50mg PO daily (7) Hypertension: BP stable in the last 48 hours. - Continue amlodipine and Toprol (8) Sepsis: Treatment for pneumonia as noted above. - Resolved by 03/11 (9) Hyperlipidemia LDL goal <70: On atorvastatin (10) Vitamin B12 deficiency: Restarted home meds. (11) Anxiety: RESTARTED HOME MEDS. will monitor. (12) GERD (gastroesophageal reflux disease): On PPI (13) DVT prophylaxis: Heparin 5000 units BID Subjective Still feels well, denies shortness of breath and minimal cough. Review of Systems Review of Systems: All systems reviewed & are unremarkable except as noted in HPI & below Physical Exam Constitutional: WD/WN, vitals as above Eyes: EOM intact bilaterally; no conjunctival abnormality ENMT: external ear and nose normal, oropharynx normal Neck: trachea midline, no thyromegaly normal visual inspection Respiratory: normal respiratory effort, lungs clear to auscultation no respiratory distress Cardiovascular: RRR, no murmur, no edema Gastrointestinal (Abdomen): Inspection/Auscultation: abdomen normal to inspection; abdomen not distended Musculoskeletal: no cyanosis or clubbing, extremities motor strength 5/5 Skin: no rashes, warm and dry Neurologic: moves all extremities and awake Psychiatric: Orientation: alert, oriented to person and cooperative Results & Data Vital Signs (Past 12 Hours) Vital Signs Temp Pulse Pulse Resp BP Pulse Ox 03/15/19 11:35 36.9 C 94 H 20 135/73 92 03/15/19 07:36 36.9 C 94 H 20 125/63 90 03/15/19 06:55 89 18 93 03/15/19 04:24 36.7 C 97 H 19 137/68 92 PG Care Time/CCT Total # of Minutes Spent Total Time Spent with Patient: Total time spent is greater than 50% in coordination of care (as documented) at patient's floor/unit and/or counseling patient: (1) Pneumonia Laterality: right Lung location: lower lobe of lung Pneumonia type: due to unspecified organism Qualified Code(s): J18.1 - Lobar pneumonia, unspecified organism (2) Multiple rib fractures Encounter type: initial encounter Fracture type: closed Laterality: right Qualified Code(s): S22.41XA - Multiple fractures of ribs, right side, initial encounter for closed fracture (3) Sepsis Sepsis type: sepsis due to unspecified organism Qualified Code(s): A41.9 - Sepsis, unspecified organism
[2019-03-15] MEDS: GABAPENTIN 300 MG CAP PO SCH (20:51)
[2019-03-15] MEDS: ATORVASTATIN 40 MG TAB PO SCH (20:51)
[2019-03-15] MEDS: MIRTAZAPINE SOLTAB 15 MG PO SCH (20:52)
[2019-03-16] MEDS: ALBUT/IPRATROP 3MG/0.5MG NEB 3 ML VIAL NEB SCH ×2 (06:53→19:09)
[2019-03-16 07:12] LABS: Hematocrit (blood only) 22.6 % (42-52); Hemoglobin 7.2 g/dL (14.0-18.0); Mean Corpuscular Hgb Conc 31.9 g/dL (32-36); Mean Platelet Volume 8.9 fL (7.4-10.4); Platelet Count 693 K/uL (130-400); RDW Coefficient of Variation 14.4 % (11.5-14.5); RDW Standard Deviation 51.4 fL (36.4-46.3); Red Blood Count 2.33 M/uL (4.7-6.1); White Blood Count 11.22 K/uL (4.8-10.8)
[2019-03-16] MEDS: PRIMIDONE 50 MG TAB PO SCH (08:19)
[2019-03-16] MEDS: CYANOCOBALAMIN 500 MCG TABLET (VITAMIN B-12) PO SCH (08:19)
[2019-03-16] MEDS: CHOLECALCIFEROL 1,000 UNITS TAB PO SCH (08:19)
[2019-03-16] MEDS: FERROUS SULFATE 325 MG TAB PO SCH (08:19)
[2019-03-16] MEDS: ASPIRIN 81 MG ECTAB PO SCH (08:19)
[2019-03-16] MEDS: AMOXICILLIN/CLAVULANATE 500 MG TAB PO SCH ×2 (08:19→16:57)
[2019-03-16] MEDS: THIAMINE HCL 100 MG TAB PO SCH (08:19)
[2019-03-16] MEDS: FOLIC ACID 1 MG TAB PO SCH (08:19)
[2019-03-16] MEDS: DOXYCYCLINE HYCLATE 100 MG CAP PO SCH ×2 (08:20→20:30)
[2019-03-16] MEDS: AMLODIPINE BESYLATE 5 MG TAB PO SCH ×2 (08:20→20:30)
[2019-03-16] MEDS: PANTOprazole 40 MG TAB PO SCH (08:20)
[2019-03-16] MEDS: LIDOCAINE 5% 1 PATCH TD SCH (08:20)
[2019-03-16] MEDS: METOPROLOL SUCC 25MG EXT REL TAB PO SCH (08:20)
[2019-03-16] MEDS: OXYCODONE HCL IR 5 MG TAB (IMMEDIATE RELEASE) PO PRN ×4 (08:23→20:45)
--- NOTE | 2019-03-16 13:15 | Hospitalist Progress Note ---
Date of Service March 16, 2019 Assessment & Plan (1) Acute respiratory failure with hypoxia and hypercapnia: Initially admitted to the intensive care unit; transferred out on 03/07. Was on vanc/aztreonam initially. Vanc stopped for negative MRSA swab. - Bronchoscopy on 03/06 showed thick secretions; however, all cultures negative so far. - Seen by pain management on 03/12 who felt that thoracic/interscalene blocks were not warranted. - On 03/10, thought for possible thoracentesis, but not enough fluid to tap. - Switched to PO doxy & Augmentin for a 5-day course. This is extra long for a pneumonia, but want to cover all bacteria well given his spotty coverage of Gram(+) while on the aztreonam only. End date: 03/19. - Seen by pulm on 03/15 -> Slow improvement expected, but no change in course needed. - Encouraged to use incentive spirometry, sit in chair, and work with PT as able. (2) Pneumonia: See above (3) Multiple rib fractures: Patient had a fall ~02/21. He was seen in the ED on 02/25 for right chest pain and contusions. Was advised to be admitted, but decided to leave. Re- presented on 03/04 with evidence of pneumonia. - Encouraged incentive spirometry & getting into chair - Seen by pain management on 03/12 who felt that interventional techniques were not warranted at this time. - Lidocaine patches and oral meds presently working. (4) Anemia of chronic disease: Baseline hgb ~9.5. Has been lower most of this admission at ~8. - Down to 6.9 on 03/10, but recheck was 7.7. No signs of bleeding. - Down to 7.0 on 03/11 - Transfused 1 unit of PRBCs on 03/11 with rebound to 8.7. - Down to 7.1 on 03/14, but back up to 7.7 the next day. - Still no signs of bleeding on exam; will try to minimize blood draws as his anemia is likely partially iatrogenic and partly from chronic disease. (5) Acute kidney injury: Baseline Cr ~2.0. Cr up to 4.2 on admission; gradually came back down. - At baseline on 03/15. (6) CAD (coronary artery disease): No chest pain this admission apart from his right-sided, reproducible rib pain. - On metoprolol XL 50mg PO daily (7) Hypertension: BP stable in the last 48 hours. - Continue amlodipine and Toprol (8) Sepsis: Treatment for pneumonia as noted above. - Resolved by 03/11 (9) Hyperlipidemia LDL goal <70: On atorvastatin (10) Vitamin B12 deficiency: Restarted home meds. (11) Anxiety: RESTARTED HOME MEDS. Will monitor. (12) GERD (gastroesophageal reflux disease): On PPI (13) DVT prophylaxis: Heparin 5000 units BID Subjective Still not reporting shortness of breath, but improved. Got very short of breath with movement yesterday, but now presently. Review of Systems Review of Systems: All systems reviewed & are unremarkable except as noted in HPI & below Physical Exam Constitutional: WD/WN, vitals as above Eyes: EOM intact bilaterally; no conjunctival abnormality ENMT: external ear and nose normal, oropharynx normal Neck: trachea midline, no thyromegaly normal visual inspection Respiratory: normal respiratory effort, lungs clear to auscultation no respiratory distress Cardiovascular: RRR, no murmur, no edema Gastrointestinal (Abdomen): Inspection/Auscultation: abdomen normal to inspection; abdomen not distended Musculoskeletal: no cyanosis or clubbing, extremities motor strength 5/5 Skin: no rashes, warm and dry Neurologic: moves all extremities and awake Psychiatric: Orientation: alert, oriented to person and cooperative Results & Data Vital Signs (Past 12 Hours) Vital Signs Temp Pulse Resp BP Pulse Ox 03/16/19 11:24 36.7 C 101 H 20 151/70 H 93 03/16/19 07:28 37 C 104 H 16 162/73 H 94 03/16/19 06:53 95 H 18 94 03/16/19 02:35 36.6 C 93 H 16 137/69 95 PG Care Time/CCT Total # of Minutes Spent Total Time Spent with Patient: Total time spent is greater than 50% in coordination of care (as documented) at patient's floor/unit and/or counseling patient: (1) Pneumonia Laterality: right Lung location: lower lobe of lung Pneumonia type: due to unspecified organism Qualified Code(s): J18.1 - Lobar pneumonia, unspecified organism (2) Multiple rib fractures Encounter type: initial encounter Fracture type: closed Laterality: right Qualified Code(s): S22.41XA - Multiple fractures of ribs, right side, initial encounter for closed fracture (3) Sepsis Sepsis type: sepsis due to unspecified organism Qualified Code(s): A41.9 - Sepsis, unspecified organism
[2019-03-16] MEDS: ATORVASTATIN 40 MG TAB PO SCH (20:30)
[2019-03-16] MEDS: MIRTAZAPINE SOLTAB 15 MG PO SCH (20:30)
[2019-03-16] MEDS: HEPARIN SOD 5,000 UNIT/0.5 ML VIAL SQ SCH (20:30)
[2019-03-16] MEDS: GABAPENTIN 300 MG CAP PO SCH (20:30)
[2019-03-17] MEDS: OXYCODONE HCL IR 5 MG TAB (IMMEDIATE RELEASE) PO PRN ×5 (03:14→20:05)
[2019-03-17] MEDS: ALBUT/IPRATROP 3MG/0.5MG NEB 3 ML VIAL NEB SCH ×2 (07:08→19:43)
[2019-03-17] MEDS: AMOXICILLIN/CLAVULANATE 500 MG TAB PO SCH ×2 (07:39→18:24)
[2019-03-17] MEDS: FOLIC ACID 1 MG TAB PO SCH (07:40)
[2019-03-17] MEDS: AMLODIPINE BESYLATE 5 MG TAB PO SCH ×2 (07:40→20:08)
[2019-03-17] MEDS: ASPIRIN 81 MG ECTAB PO SCH (07:40)
[2019-03-17] MEDS: METOPROLOL SUCC 25MG EXT REL TAB PO SCH (07:40)
[2019-03-17] MEDS: CHOLECALCIFEROL 1,000 UNITS TAB PO SCH (07:41)
[2019-03-17] MEDS: DOXYCYCLINE HYCLATE 100 MG CAP PO SCH ×2 (07:41→21:24)
[2019-03-17] MEDS: PRIMIDONE 50 MG TAB PO SCH (07:41)
[2019-03-17] MEDS: CYANOCOBALAMIN 500 MCG TABLET (VITAMIN B-12) PO SCH (07:41)
[2019-03-17] MEDS: PANTOprazole 40 MG TAB PO SCH (07:41)
[2019-03-17] MEDS: FERROUS SULFATE 325 MG TAB PO SCH (07:41)
[2019-03-17] MEDS: THIAMINE HCL 100 MG TAB PO SCH (07:41)
[2019-03-17] MEDS: HEPARIN SOD 5,000 UNIT/0.5 ML VIAL SQ SCH ×2 (07:42→20:11)
[2019-03-17] MEDS: LIDOCAINE 5% 1 PATCH TD SCH (07:42)
--- NOTE | 2019-03-17 13:01 | Hospitalist Progress Note ---
Date of Service March 17, 2019 Assessment & Plan (1) Acute respiratory failure with hypoxia and hypercapnia: Initially admitted to the intensive care unit; transferred out on 03/07. Was on vanc/aztreonam initially. Vanc stopped on 03/04 for negative MRSA swab. - Bronchoscopy on 03/06 showed thick secretions; however, all cultures negative. - Seen by pain management on 03/12 who felt that thoracic/interscalene blocks were not warranted. - On 03/10, evaluated for possible thoracentesis, but not enough fluid to tap. - On 03/11, I switched him to Zosyn to cover Gram(+) bacteria given his continued poor response to abx therapy. - On 03/14, I switched to PO doxy & Augmentin for a 5-day course. This is extra long for a pneumonia, but want to cover all bacteria well given his spotty coverage of Gram(+) while on the aztreonam only. End date: 03/19. - Seen by pulm on 03/15 -> Slow improvement expected, but no change in course needed. - Encouraged to use incentive spirometry, sit in chair, and work with PT as able. (2) Pneumonia: See above (3) Multiple rib fractures: Patient had a fall ~02/21. He was seen in the ED on 02/25 for right chest pain and contusions & found to have right rib fractures. Was advised to be admitted, but decided to leave. Re-presented on 03/04 with evidence of pneumonia. - Encouraged incentive spirometry & getting into chair - Seen by pain management on 03/12 who felt that interventional techniques were not warranted at this time. - Lidocaine patches and oral meds presently working. (4) Anemia of chronic disease: Baseline hgb ~9.5. Has been lower most of this admission at ~8. Iron studies from 03/10 indicate anemia of chronic disease. - Down to 6.9 on 03/10, but recheck was 7.7. No signs of bleeding. - Down to 7.0 on 03/11 - Transfused 1 unit of PRBCs on 03/11 with rebound to 8.7. - Down to 7.1 on 03/14, but back up to 7.7 the next day. - Still no signs of bleeding on exam; will try to minimize blood draws as his anemia is likely partially iatrogenic and partly from chronic disease. (5) Acute kidney injury: Baseline Cr ~2.0. Cr up to 4.2 on admission; gradually came back down. - At baseline on 03/15. (6) CAD (coronary artery disease): No chest pain this admission apart from his right-sided, reproducible rib pain. - On metoprolol XL 50mg PO daily (7) Hypertension: BP stable in the last 48 hours. - Continue amlodipine and Toprol (8) Sepsis: Treatment for pneumonia as noted above. - Resolved by 03/11 (9) Hyperlipidemia LDL goal <70: On atorvastatin (10) Vitamin B12 deficiency: Restarted home meds. (11) Anxiety: On home meds. - Will monitor. (12) GERD (gastroesophageal reflux disease): On PPI (13) DVT prophylaxis: Heparin 5000 units BID Dispo: Patient's O2 demand is slowly decreasing. Now down to 3L on Oxym[place] with O2 sat around 89-90%. Needs recuperative period after any exertion. Family is deciding between 3 SNFs: [facility], one in [place], [place], and one in [place]. I believe he is ready for rehab once proper placement is made. Subjective No complaints. Wants to get out of the hospital. Review of Systems Review of Systems: All systems reviewed & are unremarkable except as noted in HPI & below Physical Exam Constitutional: WD/WN, vitals as above Eyes: EOM intact bilaterally; no conjunctival abnormality ENMT: external ear and nose normal, oropharynx normal Neck: trachea midline, no thyromegaly normal visual inspection Respiratory: normal respiratory effort, lungs clear to auscultation no respiratory distress Cardiovascular: RRR, no murmur, no edema Gastrointestinal (Abdomen): Inspection/Auscultation: abdomen normal to inspection; abdomen not distended Musculoskeletal: no cyanosis or clubbing, extremities motor strength 5/5 Skin: no rashes, warm and dry Neurologic: moves all extremities and awake Psychiatric: Orientation: alert, oriented to person and cooperative Results & Data Vital Signs (Past 12 Hours) Vital Signs Temp Pulse Resp BP BP Pulse Ox 03/17/19 11:53 36.8 C 96 H 18 137/68 89 L 03/17/19 07:49 36.8 C 106 H 18 146/70 H 88 L 03/17/19 07:08 100 H 18 92 03/17/19 03:19 36.9 C 98 H 18 147/76 H 92 PG Care Time/CCT Total # of Minutes Spent Total Time Spent with Patient: Total time spent is greater than 50% in coordination of care (as documented) at patient's floor/unit and/or counseling patient: (1) Pneumonia Laterality: right Lung location: lower lobe of lung Pneumonia type: due to unspecified organism Qualified Code(s): J18.1 - Lobar pneumonia, unspecified organism (2) Multiple rib fractures Encounter type: initial encounter Fracture type: closed Laterality: right Qualified Code(s): S22.41XA - Multiple fractures of ribs, right side, initial encounter for closed fracture (3) Sepsis Sepsis type: sepsis due to unspecified organism Qualified Code(s): A41.9 - Sepsis, unspecified organism
[2019-03-17] MEDS: GABAPENTIN 300 MG CAP PO SCH (20:07)
[2019-03-17] MEDS: MIRTAZAPINE SOLTAB 15 MG PO SCH (20:09)
[2019-03-17] MEDS: ATORVASTATIN 40 MG TAB PO SCH (20:09)
[2019-03-18] MEDS: OXYCODONE HCL IR 5 MG TAB (IMMEDIATE RELEASE) PO PRN (06:23)
[2019-03-18 06:46] LABS: Hematocrit (blood only) 23.2 % (42-52); Hemoglobin 7.3 g/dL (14.0-18.0); Mean Corpuscular Hgb Conc 31.5 g/dL (32-36); Mean Corpuscular Volume 96.7 fL (80-100); Platelet Count 738 K/uL (130-400); RDW Coefficient of Variation 14.1 % (11.5-14.5); RDW Standard Deviation 50.1 fL (36.4-46.3); White Blood Count 10.68 K/uL (4.8-10.8)
[2019-03-18 07:04] LABS: BUN Creatinine Ratio 19.5 (10-20); Calcium 8.6 mg/dl (8.5-10.1); Creatinine Clr Calc Pharmacy 31.2 ml/min; Est GFR (African American) 42.3; Est GFR (Non-African American) 36.5; Potassium 4.6 mmol/L (3.5-5.1)
[2019-03-18] MEDS: ALBUT/IPRATROP 3MG/0.5MG NEB 3 ML VIAL NEB SCH ×2 (07:09→18:55)
[2019-03-18] MEDS: METOPROLOL SUCC 25MG EXT REL TAB PO SCH (09:01)
[2019-03-18] MEDS: AMOXICILLIN/CLAVULANATE 500 MG TAB PO SCH ×2 (09:01→16:54)
[2019-03-18] MEDS: FERROUS SULFATE 325 MG TAB PO SCH (09:01)
[2019-03-18] MEDS: LIDOCAINE 5% 1 PATCH TD SCH (09:01)
[2019-03-18] MEDS: HEPARIN SOD 5,000 UNIT/0.5 ML VIAL SQ SCH ×2 (09:02→20:51)
[2019-03-18] MEDS: CYANOCOBALAMIN 500 MCG TABLET (VITAMIN B-12) PO SCH (09:02)
[2019-03-18] MEDS: PANTOprazole 40 MG TAB PO SCH (09:02)
[2019-03-18] MEDS: CHOLECALCIFEROL 1,000 UNITS TAB PO SCH (09:02)
[2019-03-18] MEDS: THIAMINE HCL 100 MG TAB PO SCH (09:02)
[2019-03-18] MEDS: ASPIRIN 81 MG ECTAB PO SCH (09:02)
[2019-03-18] MEDS: AMLODIPINE BESYLATE 5 MG TAB PO SCH ×2 (09:02→20:52)
[2019-03-18] MEDS: DOXYCYCLINE HYCLATE 100 MG CAP PO SCH ×2 (09:02→20:56)
--- NOTE | 2019-03-18 09:39 | XRay Report ---
XR chest 1V portable HISTORY: 78 years-old Male f/u pleural effusion follow-up study in a patient with pleural effusion COMPARISON: Chest radiograph 03/15/2019, chest CT 03/04/2019 TECHNIQUE: Portable AP view of the chest FINDINGS: Cardiac silhouette is enlarged, unchanged. Calcification of the thoracic aortic arch. No pneumothorax . Suspected trace left pleural effusion is unchanged. Right pleural effusion with right lung base and right midlung extensive opacities appear unchanged. Emphysema with chronic interstitial coarsening. Minimal persistent left lung base opacities. Degenerative changes of the shoulders and spine. Unchang ed fractures of the posterior lateral right sixth, seventh and eighth ribs. IMPRESSION: 1. Unchanged right pleural effusion with persistent right midlung and right lung base consolidative o pacities suggestive of pneumonia. 2. Emphysema with chronic interstitial coarsening. The above report was generated using voice recognition software. It may contain grammatical, syntax o r spelling errors. Electronically signed by: Gilles Mckinley M.D. 03/18/2019 9:37 AM
[2019-03-18] MEDS ORDERED: OXYCODONE HCL IR 5 MG TAB (IMMEDIATE RELEASE) PO PRN (10:34)
[2019-03-18] MEDS: PRIMIDONE 50 MG TAB PO SCH (10:40)
[2019-03-18] MEDS: FOLIC ACID 1 MG TAB PO SCH (10:40)
--- NOTE | 2019-03-18 13:15 | Hospitalist Progress Note ---
Date of Service March 18, 2019 Assessment & Plan (1) Acute respiratory failure with hypoxia and hypercapnia: Initially admitted to the intensive care unit; transferred out on 03/07. Was on vanc/aztreonam initially. Vanc stopped on 03/04 for negative MRSA swab. - Bronchoscopy on 03/06 showed thick secretions; however, all cultures negative. - Seen by pain management on 03/12 who felt that thoracic/interscalene blocks were not warranted. - On 03/10, evaluated for possible thoracentesis, but not enough fluid to tap. - On 03/11, he was switched to Zosyn to cover Gram(+) bacteria as well as for anaerobes given his continued poor response to abx therapy. - On 03/14, he was then switched to PO doxy & Augmentin for a 5-day course. This is a long course for a pneumonia, but want to cover all bacteria well given his spotty coverage of Gram(+) while on the aztreonam only. End date: 03/19. - Seen by pulm on 03/15 -> Slow improvement expected, but no change in course needed. - Encouraged to use incentive spirometry, sit in chair, and work with PT as able. Increasing oxygen requirement on 03/18-needing 5 L nasal cannula keep pulse ox at 92% just at rest. Repeat CT of the chest was performed which showed enlarging right-sided pleural effusion and extensive infiltrative change -Pleural effusion was large on the right side-thoracentesis performed on 03/18 with removal of 1 L, no evidence of empyema or exudative effusion-appreciate thoracic surgery consultation (2) Pneumonia: Secondary to rib fractures -Treatment as above Remains afebrile, leukocytosis finally resolved -Continue doxycycline and Augmentin as above (3) Pleural effusion: With thoracentesis on the right for 1 L removed on 03/[address] chest showed worsening pleural effusion on the right, infiltrative disease and mediastinal shift to the right pH 7.4 and LDH low consistent with transudative effusion Follow CXR (4) Multiple rib fractures: Patient had a fall ~02/21. He was seen in the ED on 02/25 for right chest pain and contusions & found to have right rib fractures. Was advised to be admitted, but decided to leave. Re-presented on 03/04 with evidence of pneumonia. - Encouraged incentive spirometry & getting into chair - Seen by pain management on 03/12 who felt that interventional techniques were not warranted at this time. -Continue lidocaine patches and oral pain medicine-convert back to home dosing of hydrocodone/APAP 10/325 mg but will reduce frequency to every 6 hours (he takes 6 tablets a day at home) (5) Anemia of chronic disease: Baseline hgb ~9.5. Has been lower most of this admission at ~8. Iron studies from 03/10 indicate anemia of chronic disease. - Down to 6.9 on 03/10, but recheck was 7.7. No signs of bleeding. - Down to 7.0 on 03/11 - Transfused 1 unit of PRBCs on 03/11 with rebound to 8.7. -Hemoglobin remains in the low 7 range and with thrombocytosis and leukocytosis likely reactive to the severe anemia - Still no signs of bleeding on exam; will try to minimize blood draws as his anemia is likely partially iatrogenic and partly from chronic disease. -Follow CBC in the morning and transfuse if less than 7 -Treating infection as above (6) Acute kidney injury: Baseline Cr ~2.0. Cr up to 4.2 on admission; gradually came back down. Creatinine stable at 1.7 -Avoid nephrotoxins -Renally dose medications when appropriate (7) CAD (coronary artery disease): With a history of prior stenting -No chest pain this admission apart from his right-sided, reproducible rib pain. -Continue on metoprolol XL 50mg PO daily which is an increase from home dose -Continue aspirin, statin (8) Hypertension: BP controlled - Continue amlodipine and Toprol (9) Sepsis: Treatment for pneumonia as noted above. - Resolved by 03/11 (10) Thrombocytosis: Platelets up into the 700s-likely reactive secondary to ongoing inflammation and severe anemia -Treating infection as above -Consider repeat blood transfusion as above if hemoglobin drops lower than 7 -Follow CBC (11) Opioid dependence: Has been on chronic hydrocodone/APAP for many years, usually takes 6 tablets daily of 10/325 -Reverted to home dosing as above (12) Fracture, ribs: Of the right sixth seventh and eighth ribs status post fall -Pain control as above (13) Chronic pain: Of the lower back with right-sided radicular pain and similar region of the pain of the rib fractures -Continue home hydrocodone, gabapentin -Evaluated by pain management here and not a candidate for injection at this time due to ongoing pneumonia -Follow-up as an outpatient if desired (14) GERD (gastroesophageal reflux disease): On PPI (15) Anxiety: On home meds of buspirone. - Will monitor. (16) Vitamin B12 deficiency: Continue p.o. B12 (17) Hyperlipidemia LDL goal <70: On atorvastatin (18) DVT prophylaxis: Heparin 5000 units BID Dispo: Remain on PCU, not likely to be medically stable by tomorrow but eventually will be going to [facility] Subjective Patient reports shortness of breath with minimal exertion. He was out of bed to chair for an hour and a half today and had so much pain in the right side that he had to get back in bed. I reviewed his outpatient records and is [place] drug database website information on opioid prescriptions-he is prescribed enough hydrocodone/APAP 10/325 mg to take 6 tablets daily. He does remain afebrile. I discussed the case with the thoracic surgeon who then performed a thoracentesis for 1 L on the right side today. Telemetry with normal sinus rhythm with rates in the 90s Review of Systems Review of Systems: All systems reviewed & are unremarkable except as noted in HPI & below (Denies diarrhea or constipation, he is making urine) Physical Exam Constitutional: + thin and + frail appearing; no acute distress Eyes: + anicteric sclerae Neck: trachea midline, no thyromegaly Respiratory: normal respiratory effort (With nasal cannula in place at 5 L) Auscultation: + diminished lung sounds (At the right lower and middle lung ugalde) and + crackles (At the right middle and left lower lung ugalde); no wheezes Cardiovascular: RRR, no murmur, no edema Gastrointestinal (Abdomen): normal bowel sounds, soft, nontender, no hepatosplenomegaly Musculoskeletal: Extremities: extremities normal to inspection; no cyanosis and no clubbing Skin: no rashes, warm and dry Neurologic: moves all extremities and awake; no focal motor deficits Psychiatric: A+Ox3, euthymic affect Results & Data Vital Signs (Past 12 Hours) Vital Signs Temp Pulse Pulse Pulse Resp BP Pulse Ox 03/18/19 12:41 36.7 C 98 H 22 162/68 H 91 03/18/19 07:25 100 H 03/18/19 07:13 36.7 C 95 H 26 H 142/74 H 94 03/18/19 07:09 92 H 18 94 03/18/19 04:00 36.7 C 97 H 17 148/74 H 96 Laboratory Results 03/18/19 03/18/19 03/18/19 Range/Units Unknown Unknown Unknown WBC (4.8-10.8) K/uL RBC (4.7-6.1) M/uL Hgb (14.0-18.0) g/dL Hct (42-52) % MCV (80-100) fL MCH (25-34) pg MCHC (32-36) g/dL RDW Std Deviation (36.4-46.3) fL RDW Coeff of Lucas (11.5-14.5) % Plt Count (130-400) K/uL MPV (7.4-10.4) fL Sodium (136-145) mmol/L Potassium (3.5-5.1) mmol/L Chloride (98-107) mmol/L Carbon Dioxide (21-32) mmol/L Anion Gap (3-11) BUN (7-18) mg/dl Creatinine (0.6-1.4) mg/dl Est Cr Clr Drug Dosing ml/min Est GFR ( Amer) Est GFR (Non-Af Amer) BUN/Creatinine Ratio (10-20) Glucose (70-99) mg/dl Calcium (8.5-10.1) mg/dl Pleural Fluid Source RIGHT LUNG Pleural Color DAVID Pleural Appearance CLOUDY Pleural WBC 889 /uL Pleural RBC 7000 /uL Pleural Polynuclear % 40.2 % Pleural Mononuclear % 59.8 % Pleural Total Protein 3.2 g/dl Pleural LDH 171 U/L Pleural Glucose 118 mg/dl Pleural Amylase 48 U/L Pleural Cholesterol Pending 03/18/19 03/18/19 Range/Units 06:15 06:15 WBC 10.68 (4.8-10.8) K/uL RBC 2.40 L (4.7-6.1) M/uL Hgb 7.3 L (14.0-18.0) g/dL Hct 23.2 L (42-52) % MCV 96.7 (80-100) fL MCH 30.4 (25-34) pg MCHC 31.5 L (32-36) g/dL RDW Std Deviation 50.1 H (36.4-46.3) fL RDW Coeff of Lucas 14.1 (11.5-14.5) % Plt Count 738 H (130-400) K/uL MPV 9.0 (7.4-10.4) fL Sodium 140 (136-145) mmol/L Potassium 4.6 (3.5-5.1) mmol/L Chloride 106 (98-107) mmol/L Carbon Dioxide 31 (21-32) mmol/L Anion Gap 3.0 (3-11) BUN 35 H (7-18) mg/dl Creatinine 1.77 H (0.6-1.4) mg/dl Est Cr Clr Drug Dosing 31.2 ml/min Est GFR ( Amer) 42.3 Est GFR (Non-Af Amer) 36.5 BUN/Creatinine Ratio 19.5 (10-20) Glucose 87 (70-99) mg/dl Calcium 8.6 (8.5-10.1) mg/dl Pleural Fluid Source Pleural Color Pleural Appearance Pleural WBC /uL Pleural RBC /uL Pleural Polynuclear % % Pleural Mononuclear % % Pleural Total Protein g/dl Pleural LDH U/L Pleural Glucose mg/dl Pleural Amylase U/L Pleural Cholesterol Diagnostic Findings I personally reviewed both chest x-rays today and CT of the chest and agree with the following reports: XR chest 1V portable HISTORY: 78 years-old Male f/u pleural effusion follow-up study in a patient with pleural effusion COMPARISON: Chest radiograph 03/15/2019, chest CT 03/04/2019 TECHNIQUE: Portable AP view of the chest FINDINGS: Cardiac silhouette is enlarged, unchanged. Calcification of the thoracic aortic arch. No pneumothorax. Suspected trace left pleural effusion is unchanged. Right pleural effusion with right lung base and right midlung extensive opacities appear unchanged. Emphysema with chronic interstitial coarsening. Minimal persistent left lung base opacities. Degenerative changes of the shoulders and spine. Unchanged fractures of the posterior lateral right sixth, seventh and eighth ribs. IMPRESSION: 1. Unchanged right pleural effusion with persistent right midlung and right lung base consolidative opacities suggestive of pneumonia. 2. Emphysema with chronic interstitial coarsening. CT chest wo con CLINICAL HISTORY: 78 years-old Male presenting with f/u PNA,effusion,rib fractures. TECHNIQUE: Multidetector CT imaging of the chest was performed without the use of intravenous contrast. IV contrast: None. One or more dose lowering techniques were used consistent with the principles of ALARA (as low as reasonably achievable), including automatic exposure control, mA or kV adjustment to individual patient size, and/or use of iterative reconstruction. COMPARISON: 03/04/2019. CT DOSE (mGy.cm): The estimated cumulative dose is 232.23 mGy.cm. 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 Soft tissues: Normal thyroid and thoracic inlet. Numerous subcentimeter mediastinal lymph nodes likely reactive. Evaluation of the abbey limited in the absence of intravenous contrast. Atherosclerosis of the aorta. Normal heart size. Coronary artery and aortic valve calcification. Rightward mediastinal shift new from prior. Moderate right and small left pleural effusions. The right pleural effusion may be partially loculated. Upper abdomen normal. Lungs and airways: No pneumothorax. Adherent debris in the trachea. Extensive debris in the right is centered medius fills the airway and segmental bronchi. Significant interval increase in consolidation and volume loss of the right upper and right lower lobes. The right middle lobe is affected to a lesser degree. Extensive background moderate diffuse centrilobular emphysema. Minimal groundglass opacity dependently in the left upper lobe in the posterior segment. Dependent consolidation volume loss in the posterior basal left lower lobe likely passive atelectasis in the setting of the effusion. Musculoskeletal: Degenerative changes of the spine. Demonstration of the mildly displaced acute to subacute fractures of the lateral right sixth through eighth ribs. IMPRESSION: 1. Significant interval increase in moderate right and small left pleural effusions with significantly greater resulting passive atelectasis of both lungs. 2. Significant interval progression of consolidation throughout the right lung with complete opacification of the right bronchus intermedius and segmental bronchi. This is concerning for aspiration. 3. Reactive mediastinal lymphadenopathy. XR chest 1V portable CLINICAL HISTORY: thoracentesis COMPARISON STUDY: 03/18/2019 9:27 AM FINDINGS: Slight improvement in aeration right base postthoracentesis. Minimal right basilar pneumothorax with minimal pleural separation right apex of 5 mm. IMPRESSION: Improved aeration right base postthoracentesis. Small right pneumothorax. PG Care Time/CCT Total # of Minutes Spent Total Time Spent with Patient: Total time spent is greater than 50% in coordination of care (as documented) at patient's floor/unit and/or counseling patient: (1) Multiple rib fractures Encounter type: initial encounter Fracture type: closed Laterality: right Qualified Code(s): S22.41XA - Multiple fractures of ribs, right side, initial encounter for closed fracture (2) Sepsis Sepsis type: sepsis due to unspecified organism Qualified Code(s): A41.9 - Sepsis, unspecified organism (3) Pneumonia Laterality: right Lung location: lower lobe of lung Pneumonia type: due to unspecified organism Qualified Code(s): J18.1 - Lobar pneumonia, unspecified organism (4) Fracture, ribs Encounter type: initial encounter Fracture type: closed Laterality: right Rib fracture type: multiple ribs Qualified Code(s): S22.41XA - Multiple frac tures of ribs, right side, initial encounter for closed fracture
--- NOTE | 2019-03-18 14:50 | CT Scan Report ---
CT chest wo con CLINICAL HISTORY: 78 years-old Male presenting with f/u PNA,effusion,rib fractures. TECHNIQUE: Multidetector CT imaging of the chest was performed without the use of intravenous contras t. IV contrast: None. One or more dose lowering techniques were used consistent with the principles o f ALARA (as low as reasonably achievable), including automatic exposure control, mA or kV adjustment to individual patient size, and/or use of iterative reconstruction. COMPARISON: 03/04/2019. CT DOSE (mGy.cm): The estimated cumulative dose is 232.23 mGy.cm. 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 Soft tissues: Normal thyroid and thoracic inlet. Numerous subcentimeter mediastinal lymph nodes likel y reactive. Evaluation of the abbey limited in the absence of intravenous contrast. Atherosclerosis of the aorta. Normal heart size. Coronary artery and aortic valve calcification. Rightward mediastinal shift new from prior. Moderate right and small left pleural effusions. The right pleural effusion may be partially loculated. Upper abdomen normal. Lungs and airways: No pneumothorax. Adherent debris in the trachea. Extensive debris in the right is centered medius fills the airway and segmental bronchi. Significant interval increase in consolidatio n and volume loss of the right upper and right lower lobes. The right middle lobe is affected to a le sser degree. Extensive background moderate diffuse centrilobular emphysema. Minimal groundglass opaci ty dependently in the left upper lobe in the posterior segment. Dependent consolidation volume loss i n the posterior basal left lower lobe likely passive atelectasis in the setting of the effusion. Musculoskeletal: Degenerative changes of the spine. Demonstration of the mildly displaced acute to barnett bacute fractures of the lateral right sixth through eighth ribs. IMPRESSION: 1. Significant interval increase in moderate right and small left pleural effusions with significant ly greater resulting passive atelectasis of both lungs. 2. Significant interval progression of consolidation throughout the right lung with complete opacifi cation of the right bronchus intermedius and segmental bronchi. This is concerning for aspiration. 3. Reactive mediastinal lymphadenopathy. Electronically signed by: Klaus Galan M.D. 03/18/2019 2:49 PM
[2019-03-18] MEDS: HYDROCODONE/ACETAMINOPHEN 10/325 TAB PO PRN ×2 (15:06→20:55)
--- NOTE | 2019-03-18 16:58 | XRay Report ---
XR chest 1V portable CLINICAL HISTORY: thoracentesis COMPARISON STUDY: 03/18/2019 9:27 AM FINDINGS: Slight improvement in aeration right base postthoracentesis. Minimal right basilar pneumoth orax with minimal pleural separation right apex of 5 mm. IMPRESSION: Improved aeration right base postthoracentesis. Small right pneumothorax. The above report was generated using voice recognition software. It may contain grammatical, syntax or spelling errors. Electronically signed by: Mike Dove M.D. 03/18/2019 4:57 PM
[2019-03-18 17:19] LABS: Glucose Pleural Fluid 118 mg/dl
[2019-03-18 17:20] LABS: Amylase Pleural Fluid 48 U/L
[2019-03-18 17:24] LABS: LDH Pleural Fluid 171 U/L; Total Protein Pleural Fluid 3.2 g/dl
[2019-03-18 18:17] LABS: Appearance Pleural Fluid CLOUDY; Color Pleural Fluid AMBER; Mononuclear WBC Pleural 59.8 %; Polynuclear WBC Pleural 40.2 %; RBC Pleural Fluid (A) 7000 /uL; Source Pleural Fluid RIGHT LUNG; WBC Pleural Fluid (A) 889 /uL
[2019-03-18] MEDS: ACETAMINOPHEN 325 MG TAB PO PRN (18:42)
[2019-03-18] MEDS: MIRTAZAPINE SOLTAB 15 MG PO SCH (20:51)
[2019-03-18] MEDS: GABAPENTIN 300 MG CAP PO SCH (20:52)
[2019-03-18] MEDS: ATORVASTATIN 40 MG TAB PO SCH (20:52)
--- NOTE | 2019-03-19 00:58 | Operative Report ---
DATE OF OPERATION: 03/18/2019 PREOPERATIVE DIAGNOSIS: Enlarging right pleural effusion. POSTOPERATIVE DIAGNOSIS: Enlarging right pleural effusion. PROCEDURE PERFORMED: Right thoracentesis under ultrasound guidance. SURGEON: Amor Mehta MD PRIMARY CARE NURSE: SHILPI Valverde. ANESTHESIA: Local. SPECIFICS OF PROCEDURE: At the patient's bedside, an ultrasound was used to find a good sized right pleural effusion. This spot was marked on his back posteriorly at about the eighth interspace and the patient was prepped and draped in the usual sterile fashion. After appropriate timeout had been called, a skin wheal was raised. This spot was marked with ink with a skin wheal. A large bore needle was used to enter the pleural cavity and anesthetize the deeper subcutaneous tissues and pleura. Free-flowing fluid was obtained which was serous in nature. A guidewire was inserted through the needle and needle removed. Triple lumen catheter was slid in 17 cm and attached to suction catheters. Approximately 1100 mL of a serous yellow fluid was drained, pH 7.41. When he developed some reexpansion pain with coughing, we stopped and removed the catheter. There was no bleeding. We put an antimicrobial dressing on. Chest x-ray showed no evidence of pneumothorax with good expansion of the lung. I attest to the content of the Intraoperative Record and any orders documented therein. Any exception s are noted below.
--- NOTE | 2019-03-19 02:05 | Consultation Report ---
DATE OF CONSULTATION: 03/18/2019 REASON FOR CONSULTATION: Pleural effusions. HISTORY OF PRESENT ILLNESS: This is a 78-year-old man who got lightheaded and fell and broke some ribs on the right and had an infiltrate. CT scan showed what was either pneumonia or possibly a pulmonary contusion. He was in quite a bit of pain. He was hypoxic and came into the Emergency Room and subsequently the ICU markedly acidotic with pH 7.18 with a creatinine of 4.21. Apparently, he was quite ill earlier, but then he settled down and had a CT scan which showed an increasing pleural effusion. Dr. Shirley Gregory asked if I would see this patient to see if we could help him as he remained on 5 liters of O2. I saw him at the bedside on the PCU unit and he was awake, alert and quite conversant. He looked much better than his chart would indicate from his earlier admission. Incidentally, his BUN is down to 35, which is the best it has been on this admission and his creatinine is down to 1.77, which is also the best it has been on this admission. His other electrolytes looked quite good. His hemoglobin has been quite low; however, as low as 6.9, currently 7.3. Platelet count is also high at 738,000. The patient and I had a long discussion and I have come to discuss our management for this pleural effusion. The patient denies any symptoms for his lightheadedness. He had no productive cough, lightheadedness or chest pain or palpitations. He does have multiple comorbid medical problems. PAST MEDICAL HISTORY: 1. Coronary artery disease. 2. Chronic renal insufficiency with acute kidney injury on this admission. 3. Hypertension. 4. Hyperlipidemia. 5. Vitamin B12 deficiency. 6. Anxiety. 7. Gastroesophageal reflux disease. 8. Cigarette smoking. 9. Known abdominal aortic aneurysm. 10. Peripheral vascular disease. 11. Bilateral cataracts. PAST SURGICAL HISTORY: 1. Bilateral cataract extraction with lens implants. 2. Percutaneous transluminal angioplasty and stents. 3. Colonoscopy. 4. Upper endoscopy. ALLERGIES: 1. Ceftin. 2. Cymbalta. SOCIAL HISTORY: The patient lives with his of many years. He is originally from [place], [place] and lived in [place] and [place]. He was a smoker. 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 This was in [facility]. FAMILY MEDICAL HISTORY: The patient has 2 daughters. One of them has and he really did not want to talk about it. There is no family history of malignancy. MEDICATIONS: 1. Amlodipine. 2. Buspirone. 3. Aspirin. 4. Atorvastatin. 5. Gabapentin. 6. Vitamin B12. 7. Vitamin D3. 8. Mirtazapine. 9. Metoprolol. 10. Gabapentin. 11. Omeprazole. 12. Morphine. 13. Nitroglycerin. 14. Primidone. REVIEW OF SYSTEMS: The patient has continued to lose weight. He has chronic pain from his back and chest wall which he is on narcotics for. He states that he has lost some weight. He had complained of being quite weak and lightheaded. He denies dysphagia. He has had more of a cough and more dyspnea, although he has been walking in the hallway. He does complain of right-sided chest pain but no palpitations. He denies abdominal pain with nausea or vomiting. He has no wound breakdown. He has trace edema of the lower extremities. He does have claudication. His eye sight and vision have been fine. PHYSICAL EXAMINATION: GENERAL: Cachectic appearing male who stands 6 feet tall and weighs at 135 pounds. He is awake and alert. HEENT: His extraocular movements are intact. His pupils are equal, round and reactive. Sclerae are anicteric. Tongue is midline. He has no obvious oral mucosal lesions. NECK: Quite thin and supple. I detect no supraclavicular or cervical lymphadenopathy. LUNGS: He has decreased breath sounds, particularly on the right side, relative to the left. He has no rhonchi. CARDIAC: Distant heart sounds are regular rate and rhythm of his heart. ABDOMEN: Soft, nontender. I do not feel any masses. He is quite thin. EXTREMITIES: I can palpate femoral pulses, but have difficulty palpating any pulses below this. He has no edema. SKIN: Warm and well perfused. He has no joint effusions. NEUROLOGIC: Completely intact without focal deficits. ASSESSMENT AND PLAN: 1. Enlarging right pleural effusion. 2. Small left pleural effusion. 3. Multiple comorbid conditions. PLAN: We are going to perform a thoracentesis later this afternoon. I had a long talk with the patient. He has agreed. [facility] LANGONE HEALTH SYSTEMTheresa
[2019-03-19] MEDS: HYDROCODONE/ACETAMINOPHEN 10/325 TAB PO PRN ×2 (05:34→11:24)
[2019-03-19 06:23] LABS: Basophils # (auto) 0.02 K/uL (0-0.2); Basophils % (auto) 0.2 %; Eosinophils # (auto) 0.57 K/uL (0-0.5); Eosinophils % (auto) 5.2 %; Hematocrit (blood only) 22.9 % (42-52); Hemoglobin 7.2 g/dL (14.0-18.0); Immature Granulocytes # (auto) 0.04 K/uL (0.00-0.02); Immature Granulocytes % (auto) 0.4 %; Lymphocytes # (auto) 1.55 K/uL (1.2-3.4); Lymphocytes % (auto) 14.3 %; Mean Corpuscular Hgb Conc 31.4 g/dL (32-36); Mean Corpuscular Volume 95.8 fL (80-100); Mean Platelet Volume 8.8 fL (7.4-10.4); Monocytes # (auto) 0.74 K/uL (0.11-0.59); Monocytes % (auto) 6.8 %; Neutrophils # (auto) 7.94 K/uL (1.4-6.5); Neutrophils % (auto) 73.1 %; Platelet Count 723 K/uL (130-400); RDW Coefficient of Variation 14.3 % (11.5-14.5); Red Blood Count 2.39 M/uL (4.7-6.1); White Blood Count 10.86 K/uL (4.8-10.8)
[2019-03-19 06:56] LABS: RBC Morphology Unremarkable
[2019-03-19 06:58] LABS: Alanine Aminotransferase 21 U/L (12-78); Albumin Level 1.6 gm/dl (3.4-5.0); Aspartate Aminotransferase 19 U/L (15-37); BUN Creatinine Ratio 18.4 (10-20); Bilirubin Direct < 0.1 mg/dl (0-0.2); Blood Urea Nitrogen 32 mg/dl (7-18); Calcium 8.4 mg/dl (8.5-10.1); Carbon Dioxide 29 mmol/L (21-32); Chloride 105 mmol/L (98-107); Creatinine Clr Calc Pharmacy 31.4 ml/min; Est GFR (African American) 42.6; Est GFR (Non-African American) 36.7; Glucose 90 mg/dl (70-99); Potassium 4.5 mmol/L (3.5-5.1); Sodium 139 mmol/L (136-145)
[2019-03-19] MEDS: ALBUT/IPRATROP 3MG/0.5MG NEB 3 ML VIAL NEB SCH ×2 (07:02→19:15)
[2019-03-19 07:05] LABS: Alkaline Phosphatase 58 U/L (45-117); Bilirubin,Total 0.2 mg/dl (0.2-1); Total Protein 6.8 gm/dl (6.4-8.2)
--- NOTE | 2019-03-19 07:14 | XRay Report ---
XR chest 1V portable CLINICAL HISTORY: 78 years-old Male presenting with effusion. TECHNIQUE: Portable upright AP view of the chest was obtained. COMPARISON: 03/18/2019. FINDINGS: Atherosclerosis of the aortic arch. Cardiac silhouette enlarged. Rightward mediastinal shift unchange d. Trace right apical pneumothorax persists. Slight interval worsening of mid to basilar predominant right lung opacities. Increased right pleural effusion. Increased left basilar opacity and suspected left pleural effusion. Upper abdomen normal. IMPRESSION: 1. Interval worsening of bilateral pleural effusions and basilar predominant infiltrates. Underlying aspiration or infection is not excluded. 2. Persistent trace right apical pneumothorax. 3. Cardiomegaly. Electronically signed by: Klaus Galan M.D. 03/19/2019 7:12 AM
[2019-03-19] MEDS ORDERED: SODIUM CHLORIDE 0.9% 250 ML IV PRN (07:35)
--- NOTE | 2019-03-19 08:21 | Surgery Progress Note ---
Date of Service March 19, 2019 Assessment & Plan (1) Pleural effusion: -thoracentesis performed on 03/18/19: -cytology is pending -cultures are pending, but no organisms noted on gram stain -CXR today shows some reaccumulation -will monitor for further reaccumulation and intervene if necessary Subjective Pt. notes he breathing has only slightly improved since thoracentesis yesterday. Physical Exam Constitutional: well developed and well nourished; no acute distress Respiratory: BS are present bilaterally with slight decrease and intermittent crackles at bases R>L Results & Data Vital Signs (Past 12 Hours) Vital Signs Temp Pulse Pulse Pulse Resp BP Pulse Ox 03/19/19 07:46 36.9 C 90 136/70 94 03/19/19 07:02 89 16 94 03/19/19 03:59 36.6 C 93 H 18 146/70 H 94 03/19/19 00:00 83 03/18/19 23:25 36.7 C 87 19 131/64 95
[2019-03-19] MEDS ORDERED: FUROSEMIDE 40 MG in SYRINGE 0 ML IV ONE (08:30)
[2019-03-19] MEDS: PRIMIDONE 50 MG TAB PO SCH (08:33)
[2019-03-19] MEDS: FERROUS SULFATE 325 MG TAB PO SCH (08:33)
[2019-03-19] MEDS: THIAMINE HCL 100 MG TAB PO SCH (08:33)
[2019-03-19] MEDS: ASPIRIN 81 MG ECTAB PO SCH (08:33)
[2019-03-19] MEDS: CHOLECALCIFEROL 1,000 UNITS TAB PO SCH (08:33)
[2019-03-19] MEDS: FOLIC ACID 1 MG TAB PO SCH (08:33)
[2019-03-19] MEDS: AMOXICILLIN/CLAVULANATE 500 MG TAB PO SCH (08:33)
[2019-03-19] MEDS: CYANOCOBALAMIN 500 MCG TABLET (VITAMIN B-12) PO SCH (08:33)
[2019-03-19] MEDS: PANTOprazole 40 MG TAB PO SCH (08:34)
[2019-03-19] MEDS: METOPROLOL SUCC 25MG EXT REL TAB PO SCH (08:34)
[2019-03-19] MEDS: HEPARIN SOD 5,000 UNIT/0.5 ML VIAL SQ SCH ×2 (08:36→21:13)
[2019-03-19] MEDS: LIDOCAINE 5% 1 PATCH TD SCH (08:36)
[2019-03-19] MEDS: AMLODIPINE BESYLATE 5 MG TAB PO SCH ×2 (10:05→21:11)
--- NOTE | 2019-03-19 12:21 | Hospitalist Progress Note ---
Date of Service March 19, 2019 Assessment & Plan (1) Acute respiratory failure with hypoxia and hypercapnia: Initially admitted to the intensive care unit; transferred out on 03/07. Was on vanc/aztreonam initially for PNA. Vanc stopped on 03/04 for negative MRSA swab. - Bronchoscopy on 03/06 showed thick secretions; however, all cultures negative except likely colonized Yeast. - Seen by pain management on 03/12 who felt that thoracic/interscalene blocks were not warranted for pain control. - On 03/10, evaluated for possible thoracentesis, but not enough fluid to tap. - On 03/11, he was switched to Zosyn to cover Gram(+) bacteria as well as for anaerobes given his continued poor response to abx therapy and had recurrence of fevers. - On 03/14, he was then switched to PO doxy & Augmentin for a 5-day course. This is a long course for a pneumonia, but want to cover all bacteria well given his spotty coverage of Gram(+) while on the aztreonam only. End date: 03/19. - Seen by pulm on 03/15 -> Slow improvement expected, but no change in course needed. - Encouraged to use incentive spirometry, sit in chair, and work with PT as able. Increasing oxygen requirement on 03/18-needing 5 L nasal cannula keep pulse ox at 92% just at rest. Repeat CT of the chest was performed which showed enlarging right-sided pleural effusion and extensive infiltrative change -Pleural effusion was large on the right side-thoracentesis performed on 03/18 w ith removal of 1 L, no evidence of empyema or exudative effusion-appreciate thoracic surgery consultation -CXR 03/19 with some reaccumulation of effusion--> Thoracic Surgery to continue to monitor and may need repeat tap -giving IV lasix today between PRBC units -follow pleural fluid cytology and culture (2) Pneumonia: Secondary to rib fractures -Treatment as above Remains afebrile, leukocytosis improved but still mild and present -finishing course of doxycycline and Augmentin today (3) Pleural effusion: With thoracentesis on the right for 1 L removed on 03/[address] chest showed worsening pleural effusion on the right, infiltrative disease and mediastinal shift to the right pH 7.4 and LDH low consistent with transudative effusion With plan as above Follow CXR, may need repeat tap -follow pleural fluid studies (4) Multiple rib fractures: Patient had a fall ~02/21. He was seen in the ED on 02/25 for right chest pain and contusions & found to have right 6-8th rib fractures. Was advised to be admitted, but decided to leave. Re-presented on 03/04 with evidence of pneumonia. - Encouraged incentive spirometry & getting into chair, ambulation - Seen by pain management on 03/12 who felt that interventional techniques were not warranted at this time. -Continue lidocaine patches and oral pain medicine-increase to home dosing of hydrocodone/APAP 10/325 mg but takes 1.5 tabs 4x/day as needed (5) Anemia of chronic disease: Baseline hgb ~9.5. Has been lower most of this admission at ~8. Iron studies from 03/10 indicate anemia of chronic disease. - Down to 6.9 on 03/10, but recheck was 7.7. No signs of bleeding. - Down to 7.0 on 03/11 - Transfused 1 unit of PRBCs on 03/11 with rebound to 8.7. -Hemoglobin remains low at 7.2 today and with thrombocytosis and leukocytosis likely reactive to the severe anemia - Still no signs of bleeding on exam; will try to minimize blood draws as his anemia is likely partially iatrogenic and partly from chronic disease. -will transfuse 2 units today given severe fatigue -follow CBC in AM (6) Acute kidney injury: Baseline Cr ~2.0. Cr up to 4.2 on admission; gradually came back down. Creatinine stable at 1.7 -Avoid nephrotoxins -Renally dose medications when appropriate (7) CAD (coronary artery disease): With a history of prior stenting -No chest pain this admission apart from his right-sided, reproducible rib pain. -Continue on metoprolol XL 50mg PO daily which is an increase from home dose -Continue aspirin, statin (8) Hypertension: BP controlled - Continue amlodipine and Toprol (9) Sepsis: Treatment for pneumonia as noted above. - Resolved by 03/11 (10) Thrombocytosis: Platelets up into the 700s-likely reactive secondary to ongoing inflammation and severe anemia -Treating infection as above -PRBC blood transfusion as above should help -Follow CBC (11) Opioid dependence: Has been on chronic hydrocodone/APAP for many years, usually takes 6 tablets daily of 10/325 -Reverted to home dosing as above (12) Chronic pain: Of the lower back with right-sided radicular pain and similar region of the pain of the rib fractures -Continue home hydrocodone, gabapentin -Evaluated by pain management here and not a candidate for injection at this time due to ongoing pneumonia -Follow-up as an outpatient if desired (13) GERD (gastroesophageal reflux disease): On PPI (14) Anxiety: On home meds of buspirone. - Will monitor. (15) Vitamin B12 deficiency: Continue p.o. 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-this resolved many years ago with a course of prednisone prescribed by Vascular Surgery at [facility] -no nocturia or urinary retention prior to admission and may just be related to having Hdz placed when was critically ill -start Flomax 0.4mg hs and leave Hdz in place for 7-10 more days -will need TOV on/around 03/26 (18) DVT prophylaxis: Heparin 5000 units BID Dispo: Remain on PCU, not likely to be medically stable by tomorrow if pleural effusion continues to reaccumulate, but eventually will be going to [facility] hopefully later this week Subjective Feels fatigued, no motivation to get out of bed. Says all he wants to do is sit on his couch at home and watch TV. He did get out of bed to a chair today x 2 hours. Still having significant pain on right side and asks that his hydrocodone be increased to his usual dose which is 15mg hydrocodone four times a day. He is moving his bowels, making urine. Has some dyspnea with exertion and remains on 4-5LNC Later, I revisited him when his and [id number] were at the bedside-they report he is usually quite stubborn and resistant to medical care, but convinced him of the importance of going to rehab after dc from the hospital. He is eating minimally and reports having no appetite Tele with NSR, rates in the 80s Review of Systems Review of Systems: All systems reviewed & are unremarkable except as noted in HPI & below Physical Exam Constitutional: + thin and + frail appearing; no acute distress Eyes: + anicteric sclerae Neck: trachea midline, no thyromegaly Respiratory: normal respiratory effort (With nasal cannula in place at 5 L) Auscultation: + diminished lung sounds (At the right lower lung field improved from previous) and + crackles (At the right lower lung field, improved from previous); no wheezes Cardiovascular: RRR, no murmur, no edema Gastrointestinal (Abdomen): normal bowel sounds, soft, nontender, no hepatosplenomegaly Musculoskeletal: Extremities: extremities normal to inspection; no cyanosis and no clubbing Skin: no rashes, warm and dry Neurologic: moves all extremities and awake; no focal motor deficits Psychiatric: Orientation: alert and oriented x 3 Eye Contact: good eye contact Affect: + irritable affect Mood: + irritable mood Genitourinary: Hdz in place draining clear yellow urine Results & Data Vital Signs (Past 12 Hours) Vital Signs Temp Pulse Pulse Pulse Resp BP BP 03/19/19 11:57 36.8 C 86 18 138/72 03/19/19 11:45 36.8 C 83 133/68 03/19/19 11:43 36.6 C 88 18 133/68 03/19/19 11:04 36.6 C 88 18 143/74 H 03/19/19 10:34 36.9 C 83 18 136/67 03/19/19 10:19 36.8 C 92 H 18 131/61 03/19/19 10:02 36.8 C 93 H 18 146/76 H 03/19/19 08:00 87 03/19/19 07:46 36.9 C 90 136/70 03/19/19 07:02 89 16 03/19/19 03:59 36.6 C 93 H 18 146/70 H Pulse Ox 03/19/19 11:57 95 03/19/19 11:45 03/19/19 11:43 03/19/19 11:04 95 03/19/19 10:34 95 03/19/19 10:19 92 03/19/19 10:02 93 03/19/19 08:00 03/19/19 07:46 94 03/19/19 07:02 94 03/19/19 03:59 94 Laboratory Results 03/19/19 03/19/19 03/19/19 Range/Units 07:51 06:05 06:05 WBC 10.86 H (4.8-10.8) K/uL RBC 2.39 L (4.7-6.1) M/uL Hgb 7.2 L (14.0-18.0) g/dL Hct 22.9 L (42-52) % MCV 95.8 (80-100) fL MCH 30.1 (25-34) pg MCHC 31.4 L (32-36) g/dL RDW Std Deviation 50.0 H (36.4-46.3) fL RDW Coeff of Lucas 14.3 (11.5-14.5) % Plt Count 723 H (130-400) K/uL MPV 8.8 (7.4-10.4) fL Immature Gran % (Auto) 0.4 % Neut % (Auto) 73.1 % Lymph % (Auto) 14.3 % [place] % (Auto) 6.8 % Eos % (Auto) 5.2 % Baso % (Auto) 0.2 % Immature Gran # (Auto) 0.04 H (0.00-0.02) K/uL Neut # (Auto) 7.94 H (1.4-6.5) K/uL Lymph # (Auto) 1.55 (1.2-3.4) K/uL [place] # (Auto) 0.74 H (0.11-0.59) K/uL Eos # (Auto) 0.57 H (0-0.5) K/uL Baso # (Auto) 0.02 (0-0.2) K/uL RBC Morphology Unremarkable Sodium 139 (136-145) mmol/L Potassium 4.5 (3.5-5.1) mmol/L Chloride 105 (98-107) mmol/L Carbon Dioxide 29 (21-32) mmol/L Anion Gap 5.0 (3-11) BUN 32 H (7-18) mg/dl Creatinine 1.76 H (0.6-1.4) mg/dl Est Cr Clr Drug Dosing 31.4 ml/min Est GFR ( Amer) 42.6 Est GFR (Non-Af Amer) 36.7 BUN/Creatinine Ratio 18.4 (10-20) Glucose 90 (70-99) mg/dl Calcium 8.4 L (8.5-10.1) mg/dl Total Bilirubin 0.2 (0.2-1) mg/dl Direct Bilirubin < 0.1 (0-0.2) mg/dl AST 19 (15-37) U/L ALT 21 (12-78) U/L Alkaline Phosphatase 58 (45-117) U/L Total Protein 6.8 (6.4-8.2) gm/dl Albumin 1.6 L (3.4-5.0) gm/dl Blood Type O Positive Antibody Screen NEGATIVE Crossmatch See Detail Diagnostic Findings Personally reviewed his CXR image and agree with the following report: XR chest 1V portable CLINICAL HISTORY: 78 years-old Male presenting with effusion. TECHNIQUE: Portable upright AP view of the chest was obtained. COMPARISON: 03/18/2019. FINDINGS: Atherosclerosis of the aortic arch. Cardiac silhouette enlarged. Rightward mediastinal shift unchanged. Trace right apical pneumothorax persists. Slight interval worsening of mid to basilar predominant right lung opacities. Increased right pleural effusion. Increased left basilar opacity and suspected left pleural effusion. Upper abdomen normal. IMPRESSION: 1. Interval worsening of bilateral pleural effusions and basilar predominant infiltrates. Underlying aspiration or infection is not excluded. 2. Persistent trace right apical pneumothorax. 3. Cardiomegaly. PG Care Time/CCT Total # of Minutes Spent Total Time Spent with Patient: Total time spent is greater than 50% in coordination of care (as documented) at patient's floor/unit and/or counseling patient: (1) Multiple rib fractures Encounter type: initial encounter Fracture type: closed Laterality: right Qualified Code(s): S22.41XA - Multiple fractures of ribs, right side, initial encounter for closed fracture (2) Sepsis Sepsis type: sepsis due to unspecified organism Qualified Code(s): A41.9 - Se psis, unspecified organism (3) Pneumonia Laterality: right Lung location: lower lobe of lung Pneumonia type: due to unspecified organism Qualified Code(s): J18.1 - Lobar pneumonia, unspecified organism
[2019-03-19] MEDS: HYDROCODONE/ACETAMOPHEN 5/325MG TAB PO PRN ×2 (17:40→22:59)
[2019-03-19] MEDS: GABAPENTIN 300 MG CAP PO SCH (21:10)
[2019-03-19] MEDS: ATORVASTATIN 40 MG TAB PO SCH (21:11)
[2019-03-19] MEDS: MIRTAZAPINE SOLTAB 15 MG PO SCH (21:11)
[2019-03-19] MEDS: TAMSULOSIN HCL 0.4 MG CAP PO SCH (21:11)
[2019-03-20 06:43] LABS: Basophils # (auto) 0.05 K/uL (0-0.2); Basophils % (auto) 0.5 %; Eosinophils # (auto) 0.84 K/uL (0-0.5); Eosinophils % (auto) 7.8 %; Hematocrit (blood only) 27.9 % (42-52); Hemoglobin 8.9 g/dL (14.0-18.0); Immature Granulocytes # (auto) 0.04 K/uL (0.00-0.02); Immature Granulocytes % (auto) 0.4 %; Lymphocytes # (auto) 2.12 K/uL (1.2-3.4); Lymphocytes % (auto) 19.7 %; Mean Corpuscular Hgb Conc 31.9 g/dL (32-36); Mean Corpuscular Volume 94.6 fL (80-100); Monocytes # (auto) 0.89 K/uL (0.11-0.59); Monocytes % (auto) 8.3 %; Neutrophils % (auto) 63.3 %; Platelet Count 695 K/uL (130-400); RDW Coefficient of Variation 15.6 % (11.5-14.5); RDW Standard Deviation 54.4 fL (36.4-46.3); Red Blood Count 2.95 M/uL (4.7-6.1); White Blood Count 10.74 K/uL (4.8-10.8)
[2019-03-20] MEDS: ALBUT/IPRATROP 3MG/0.5MG NEB 3 ML VIAL NEB SCH ×2 (07:09→19:11)
[2019-03-20 07:15] LABS: BUN Creatinine Ratio 17.9 (10-20); Calcium 8.5 mg/dl (8.5-10.1); Creatinine Clr Calc Pharmacy 30.7 ml/min; Est GFR (African American) 41.7; Potassium 4.4 mmol/L (3.5-5.1)
[2019-03-20] MEDS: HYDROCODONE/ACETAMOPHEN 5/325MG TAB PO PRN ×3 (08:09→20:23)
[2019-03-20] MEDS: CYANOCOBALAMIN 500 MCG TABLET (VITAMIN B-12) PO SCH (08:15)
[2019-03-20] MEDS: FERROUS SULFATE 325 MG TAB PO SCH (08:16)
[2019-03-20] MEDS: AMLODIPINE BESYLATE 5 MG TAB PO SCH ×2 (08:16→20:27)
[2019-03-20] MEDS: PANTOprazole 40 MG TAB PO SCH (08:16)
[2019-03-20] MEDS: ASPIRIN 81 MG ECTAB PO SCH (08:16)
[2019-03-20] MEDS: PRIMIDONE 50 MG TAB PO SCH (08:16)
[2019-03-20] MEDS: THIAMINE HCL 100 MG TAB PO SCH (08:16)
[2019-03-20] MEDS: METOPROLOL SUCC 25MG EXT REL TAB PO SCH (08:16)
[2019-03-20] MEDS: CHOLECALCIFEROL 1,000 UNITS TAB PO SCH (08:16)
[2019-03-20] MEDS: HEPARIN SOD 5,000 UNIT/0.5 ML VIAL SQ SCH ×2 (08:17→20:29)
[2019-03-20] MEDS: FOLIC ACID 1 MG TAB PO SCH (08:17)
[2019-03-20] MEDS: LIDOCAINE 5% 1 PATCH TD SCH (08:17)
--- NOTE | 2019-03-20 10:55 | XRay Report ---
XR chest 1V portable CLINICAL HISTORY: f/u pleural effusion, PTX COMPARISON STUDY: Chest CT March 18, 2019. Chest radiograph March 19, 2019. FINDINGS: A trace right apical pneumothorax is unchanged. Small moderate right and small left pleural effusions are unchanged. Extensive right mid and lower lung consolidation persists with associated v olume loss. Left basilar opacity is unchanged. There is pulmonary vascular congestion. Right-sided ri b fractures are again noted. IMPRESSION: 1. No change in extensive right lung airspace opacity. This suggests significant right lower lobe and right middle lobe volume loss with associated pneumonia. Persistent mild left basilar opacity. 2. No change in a trace right apical pneumothorax. 3. Small to moderate right and small left pleural effusions which are unchanged. Electronically signed by: Kyree Harvey M.D. 03/20/2019 10:54 AM
--- NOTE | 2019-03-20 14:32 | Hospitalist Progress Note ---
Date of Service March 20, 2019 Assessment & Plan (1) Acute respiratory failure with hypoxia and hypercapnia: Initially admitted to the intensive care unit with pneumonia, was only intubated for a bronchoscopy and then extubated; transferred out on 03/07. Was on vanc/aztreonam initially for PNA. Vanc stopped on 03/04 for negative MRSA swab. - Bronchoscopy on 03/06 showed thick secretions; however, all cultures negative except likely colonized Yeast. - Seen by pain management on 03/12 who felt that thoracic/interscalene blocks were not warranted for pain control. - On 03/10, evaluated for possible thoracentesis, but not enough fluid to tap. - On 03/11, he was switched to Zosyn to cover Gram(+) bacteria as well as for anaerobes given his continued poor response to abx therapy and had recurrence of fevers. - On 03/14, he was then switched to PO doxy & Augmentin for a 5-day course. This is a long course for a pneumonia, but want to cover all bacteria well given his spotty coverage of Gram(+) while on the aztreonam only. End date: 03/19. - Seen by pulm on 03/15 -> Slow improvement expected, but no change in course needed. - Encouraged to use incentive spirometry, sit in chair, and work with PT as able. Increasing oxygen requirement on 03/18-needing 5 L nasal cannula keep pulse ox at 92% just at rest. Repeat CT of the chest was performed which showed enlarging right-sided pleural effusion and extensive infiltrative change -Pleural effusion was large on the right side-thoracentesis performed on 03/18 with removal of 1 L, no evidence of empyema or exudative effusion-appreciate thoracic surgery consultation -CXR 03/19 with some reaccumulation of effusion and CXR on 03/20 stable to slightly improved--> Thoracic Surgery to continue to monitor but does not feel he needs a repeat thoracentesis-can monitor as outpatient -He received IV Lasix on 03/19 in between units of blood -Is now weaned down to 2 L nasal cannula and is much more mobile today -Mostly atelectasis and some infiltrate at this point-we will monitor off of antibiotics -follow pleural fluid cytology and culture-no growth to date and cytology is negative for malignancy (2) Pneumonia: Secondary to rib fractures -Treatment as above is now completed Remains afebrile, leukocytosis now resolved (3) Pleural effusion: With thoracentesis on the right for 1 L removed on 03/[address] chest showed worsening pleural effusion on the right, infiltrative disease and mediastinal shift to the right pH 7.4 and LDH low consistent with transudative effusion With plan as above Follow CXR as an outpatient with thoracic surgery -follow pleural fluid studies-cytology negative and culture no growth as above -No need for repeat thoracentesis at this point (4) Multiple rib fractures: Patient had a fall ~02/21. He was seen in the ED on 02/25 for right chest pain and contusions & found to have right 6-8th rib fractures. Was advised to be admitted, but decided to leave. Re-presented on 03/04 with evidence of pneumonia. - Encouraged incentive spirometry & getting into chair, ambulation - Seen by pain management on 03/12 who felt that interventional techniques were not warranted at this time. -Pain is finally with improved control on 03/20 after increasing to home doses of hydrocodone -Continue lidocaine patches and home dosing of hydrocodone/APAP 10/325 mg but takes 1.5 tabs 4x/day as needed (5) Anemia of chronic disease: Baseline hgb ~9.5. Has been lower most of this admission at ~8. Iron studies from 03/10 indicate anemia of chronic disease. - Down to 6.9 on 03/10, but recheck was 7.7. No signs of bleeding. - Down to 7.0 on 03/11 - Transfused 1 unit of PRBCs on 03/11 with rebound to 8.7. -Hemoglobin back down to 7.2 on 03/19 and with thrombocytosis and leukocytosis likely reactive to the severe anemia - Still no signs of bleeding on exam; will try to minimize blood draws as his anemia is likely partially iatrogenic and partly from chronic disease. -Was transfused 2 units on 03/19 given severe fatigue and hemoglobin now up to 8.9 -follow CBC in AM -Continue ferrous sulfate 325 mg once daily (6) Acute kidney injury: Baseline Cr ~2.0. Cr up to 4.2 on admission; gradually came back down. Creatinine stable again today at 1.7 -Avoid nephrotoxins -Renally dose medications when appropriate (7) CAD (coronary artery disease): With a history of prior stenting -No chest pain this admission apart from his right-sided, reproducible rib pain. -Continue on metoprolol XL 50mg PO daily which is an increase from home dose -Continue aspirin, statin (8) Hypertension: BP mildly elevated - Continue amlodipine and Toprol (9) Sepsis: Treatment for pneumonia as noted above. - Resolved by 03/11 (10) Thrombocytosis: Platelets up into the 700s-likely reactive secondary to ongoing inflammation and severe anemia Today platelets are improving down to 695 after blood transfusion -Treated infection as above -Follow CBC (11) Opioid dependence: Has been on chronic hydrocodone/APAP for many years, usually takes 6 tabl ets daily of -Reverted to home dosing as above (12) Chronic pain: Of the lower back with right-sided radicular pain and similar region of the pain of the rib fractures -Continue home hydrocodone, gabapentin -Evaluated by pain management here and not a candidate for injection at this time due to ongoing pneumonia -Follow-up as an outpatient if desired (13) GERD (gastroesophageal reflux disease): On PPI (14) Anxiety: On home meds of buspirone. - Will monitor. (15) Vitamin B12 deficiency: Continue p.o. 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-this resolved many years ago with a course of prednisone prescribed by Vascular Surgery at [facility] [place] -no nocturia or urinary retention prior to admission and may just be related to having Hdz placed when was critically ill -started Flomax 0.4mg hs on 03/19 and will leave Hdz in place for 7-10 more days -will need TOV on/around 03/26 -If continues to have retention issues after next trial of void, would refer to urology as an outpatient (18) Hypoalbuminemia due to protein-calorie malnutrition: Albumin severely low at 1.7 -Added boost protein shakes to diet twice daily (19) DVT prophylaxis: Heparin 5000 units BID Dispo: Stable for transfer to medical floor Plans [facility] to [facility] at [place]-I discussed and did a peer to peer review with the physician from his insurance company and [facility] facility authorization was approved Subjective Patient out of bed to chair today and feels the pain in his right side is better controlled today. He is still argumentative about having to go to rehab but is resolved that he needs to go. Denies shortness of breath and oxygen has been weaned down to 2 L. He states that he does not feel any more energy since receiving the blood transfusion yesterday. Telemetry with sinus tachycardia in the low 100s down to normal sinus rhythm in the 70s Review of Systems Review of Systems: All systems reviewed & are unremarkable except as noted in HPI & below Physical Exam Constitutional: + thin and + frail appearing; no acute distress Eyes: + anicteric sclerae Neck: trachea midline, no thyromegaly Respiratory: normal respiratory effort (With nasal cannula in place at 4 L) Auscultation: + diminished lung sounds (At the right lower lung field improved from previous) and + crackles (At the right lower lung field, improved from previous); no wheezes Cardiovascular: RRR, no murmur, no edema Gastrointestinal (Abdomen): normal bowel sounds, soft, nontender, no hepatosplenomegaly Musculoskeletal: Extremities: extremities normal to inspection; no cyanosis and no clubbing Skin: no rashes, warm and dry Neurologic: moves all extremities and awake; no focal motor deficits Psychiatric: Orientation: alert and oriented x 3 Eye Contact: good eye contact Affect: + irritable affect Mood: + irritable mood Results & Data Vital Signs (Past 12 Hours) Vital Signs Temp Pulse Pulse Pulse Resp BP BP 03/20/19 12:00 36.7 C 84 20 147/72 H 03/20/19 10:00 83 03/20/19 08:00 83 03/20/19 07:10 88 18 03/20/19 06:55 36.4 C L 77 15 137/70 03/20/19 04:00 36.4 C L 78 17 138/69 Pulse Ox 03/20/19 12:00 95 03/20/19 10:00 03/20/19 08:00 03/20/19 07:10 96 03/20/19 06:55 96 03/20/19 04:00 93 Laboratory Results 03/20/19 03/20/19 Range/Units 06:13 06:13 WBC 10.74 (4.8-10.8) K/uL RBC 2.95 L (4.7-6.1) M/uL Hgb 8.9 L (14.0-18.0) g/dL Hct 27.9 L (42-52) % MCV 94.6 (80-100) fL MCH 30.2 (25-34) pg MCHC 31.9 L (32-36) g/dL RDW Std Deviation 54.4 H (36.4-46.3) fL RDW Coeff of Lucas 15.6 H (11.5-14.5) % Plt Count 695 H (130-400) K/uL MPV 9.0 (7.4-10.4) fL Immature Gran % (Auto) 0.4 % Neut % (Auto) 63.3 % Lymph % (Auto) 19.7 % [place] % (Auto) 8.3 % Eos % (Auto) 7.8 % Baso % (Auto) 0.5 % Immature Gran # (Auto) 0.04 H (0.00-0.02) K/uL Neut # (Auto) 6.80 H (1.4-6.5) K/uL Lymph # (Auto) 2.12 (1.2-3.4) K/uL [place] # (Auto) 0.89 H (0.11-0.59) K/uL Eos # (Auto) 0.84 H (0-0.5) K/uL Baso # (Auto) 0.05 (0-0.2) K/uL Sodium 140 (136-145) mmol/L Potassium 4.4 (3.5-5.1) mmol/L Chloride 106 (98-107) mmol/L Carbon Dioxide 31 (21-32) mmol/L Anion Gap 3.0 (3-11) BUN 32 H (7-18) mg/dl Creatinine 1.79 H (0.6-1.4) mg/dl Est Cr Clr Drug Dosing 30.7 ml/min Est GFR ( Amer) 41.7 Est GFR (Non-Af Amer) 36.0 BUN/Creatinine Ratio 17.9 (10-20) Glucose 85 (70-99) mg/dl Calcium 8.5 (8.5-10.1) mg/dl Diagnostic Findings Chest x-ray image personally reviewed by me-I think he has better expansion of the right lung and less opacities. Radiology report as below: XR chest 1V portable CLINICAL HISTORY: f/u pleural effusion, PTX COMPARISON STUDY: Chest CT March 18, 2019. Chest radiograph March 19, 2019. FINDINGS: A trace right apical pneumothorax is unchanged. Small moderate right and small left pleural effusions are unchanged. Extensive right mid and lower lung consolidation persists with associated volume loss. Left basilar opacity is unchanged. There is pulmonary vascular congestion. Right-sided rib fractures are again noted. IMPRESSION: 1. No change in extensive right lung airspace opacity. This suggests significant right lower lobe and right middle lobe volume loss with associated pneumonia. Persistent mild left basilar opacity. 2. No change in a trace right apical pneumothorax. 3. Small to moderate right and small left pleural effusions which are unchanged. PG Care Time/CCT Total # of Minutes Spent Total Time Spent with Patient: Total time spent is greater than 50% in coordination of care (as documented) at patient's floor/unit and/or counseling patient: (1) Multiple rib fractures Encounter type: initial encounter Fracture type: closed Laterality: right Qualified Code(s): S22.41XA - Multiple fractures of ribs, right side, initial encounter for closed fracture (2) Sepsis Sepsis type: sepsis due to unspecified organism Qualified Code(s): A41.9 - Se psis, unspecified organism (3) Pneumonia Laterality: right Lung location: lower lobe of lung Pneumonia type: due to unspecified organism Qualified Code(s): J18.1 - Lobar pneumonia, unspecified organism
--- NOTE | 2019-03-20 17:44 | Progress Note ---
DATE: 03/20/2019 Mr. Hilton was seen today. We tapped him 2 days ago and his fluid appeared to be benign. It did not grow any organisms. His cytology is negative for carcinoma. He does not feel much different. He is still pretty weak. As he states today to me, he is "just old." He is still requiring 4 liters of oxygen. He has a pretty dense infiltrate in his right lower lobe. I think at this point I would agree with a discharge if the primary care service feels. I discussed this with Dr. Shirley Gregory and I felt a discharge to [facility] would be appropriate when she feels he is stable.
[2019-03-20] MEDS: TAMSULOSIN HCL 0.4 MG CAP PO SCH (20:25)
[2019-03-20] MEDS: ATORVASTATIN 40 MG TAB PO SCH (20:26)
[2019-03-20] MEDS: GABAPENTIN 300 MG CAP PO SCH (20:26)
[2019-03-20] MEDS: MIRTAZAPINE SOLTAB 15 MG PO SCH (20:27)
[2019-03-21] MEDS: HYDROCODONE/ACETAMOPHEN 5/325MG TAB PO PRN ×2 (02:12→08:33)
[2019-03-21 07:04] LABS: Basophils # (auto) 0.03 K/uL (0-0.2); Basophils % (auto) 0.3 %; Eosinophils # (auto) 0.73 K/uL (0-0.5); Eosinophils % (auto) 7.1 %; Hematocrit (blood only) 29.7 % (42-52); Hemoglobin 9.5 g/dL (14.0-18.0); Immature Granulocytes # (auto) 0.03 K/uL (0.00-0.02); Immature Granulocytes % (auto) 0.3 %; Lymphocytes # (auto) 1.89 K/uL (1.2-3.4); Lymphocytes % (auto) 18.4 %; Mean Corpuscular Volume 94.3 fL (80-100); Mean Platelet Volume 9.1 fL (7.4-10.4); Monocytes # (auto) 0.56 K/uL (0.11-0.59); Monocytes % (auto) 5.4 %; Neutrophils # (auto) 7.05 K/uL (1.4-6.5); Neutrophils % (auto) 68.5 %; Platelet Count 676 K/uL (130-400); RDW Coefficient of Variation 15.2 % (11.5-14.5); RDW Standard Deviation 51.9 fL (36.4-46.3); Red Blood Count 3.15 M/uL (4.7-6.1); White Blood Count 10.29 K/uL (4.8-10.8)
[2019-03-21] MEDS: ALBUT/IPRATROP 3MG/0.5MG NEB 3 ML VIAL NEB SCH (07:29)
[2019-03-21 07:34] LABS: BUN Creatinine Ratio 17.3 (10-20); Calcium 8.6 mg/dl (8.5-10.1); Creatinine Clr Calc Pharmacy 30.7 ml/min; Est GFR (African American) 41.7; Potassium 4.7 mmol/L (3.5-5.1)
[2019-03-21] MEDS: HEPARIN SOD 5,000 UNIT/0.5 ML VIAL SQ SCH (07:38)
[2019-03-21] MEDS: METOPROLOL SUCC 25MG EXT REL TAB PO SCH (08:29)
[2019-03-21] MEDS: FOLIC ACID 1 MG TAB PO SCH (08:29)
[2019-03-21] MEDS: CYANOCOBALAMIN 500 MCG TABLET (VITAMIN B-12) PO SCH (08:29)
[2019-03-21] MEDS: CHOLECALCIFEROL 1,000 UNITS TAB PO SCH (08:29)
[2019-03-21] MEDS: ASPIRIN 81 MG ECTAB PO SCH (08:29)
[2019-03-21] MEDS: PANTOprazole 40 MG TAB PO SCH (08:29)
[2019-03-21] MEDS: PRIMIDONE 50 MG TAB PO SCH (08:30)
[2019-03-21] MEDS: LIDOCAINE 5% 1 PATCH TD SCH (08:30)
[2019-03-21] MEDS: THIAMINE HCL 100 MG TAB PO SCH (08:30)
[2019-03-21] MEDS: FERROUS SULFATE 325 MG TAB PO SCH (08:30)
[2019-03-21] MEDS: AMLODIPINE BESYLATE 5 MG TAB PO SCH (08:30)
--- NOTE | 2019-03-21 10:42 | Discharge Summary ---
Date of Service March 21, 2019 Admission HPI Per Admitting Provider The patient is a 78-year-old male initially seen in the emergency department on 02/25/2019, at which time he was diagnosed with nondisplaced fractures of the right sixth, seventh and eighth ribs without evidence of pneumothorax. He was noted to have some mild atelectasis or bronchiectasis of the medial aspect of the right middle lobe at that time as well. He was advised to state at that time for admission, however, he left AGAINST MEDICAL ADVICE. Since that time, his principal developer says that he has had literally no oral intake with liquids or solids, and has had significant issues with breathing, and today became altered and was brought to the emergency department for assessment. In the emergency department, he was found to have acute respiratory failure due to pneumonia, and acute kidney injury due to his decreased oral intake. He was referred for admission, and to be admitted to the ICU. He continues to be a full resuscitation at this time. Principal Diagnosis Acute hypoxic respiratory failure, Pneumonia Discharge Exam Constitutional + thin and + frail appearing; no acute distress Eyes + anicteric sclerae Neck trachea midline, no thyromegaly Respiratory normal respiratory effort (With nasal cannula in place at 2 L) Auscultation: + diminished lung sounds (At the right lower lung field improved from previous) and + crackles (At the right lower lung field, improved from previous); no wheezes Cardiovascular RRR, no murmur, no edema Gastrointestinal (Abdomen) normal bowel sounds, soft, nontender, no hepatosplenomegaly Musculoskeletal Extremities: extremities normal to inspection; no cyanosis and no clubbing Skin no rashes, warm and dry Neurologic moves all extremities and awake; no focal motor deficits Psychiatric A+Ox3, euthymic affect Genitourinary Hdz catheter in place draining clear, yellow urine Discharge Data Allergies Allergy/AdvReac Type Severity Reaction Status Date / Time cefuroxime Allergy Unknown rash Verified 03/04/19 02:19 Consultations Service Superintendent Palliative Care Pain Management Routine Thoracic Surgery Procedures Performed Thoracentesis Bronchoscopy Ordered Studies 03/04/19 01:46 CT chest wo con Urgent 03/04/19 01:49 CT abd pelvis wo con Urgent 03/10/19 07:52 US point of care ultrasound Routine 03/18/19 13:12 CT chest wo con Urgent Multiple CXR ECHO Hospital Course (1) Acute respiratory failure with hypoxia and hypercapnia: Initially admitted to the intensive care unit with pneumonia, was only intubated for a bronchoscopy and then extubated; transferred out of ICU on 03/07. Was on vanc/aztreonam initially for PNA. Vanc stopped on 03/04 for negative MRSA swab. - Bronchoscopy on 03/06 showed thick secretions; however, all cultures negative except likely colonized Yeast. - Seen by pain management on 03/12 who felt that thoracic/interscalene blocks were not warranted for pain control. - On 03/10, evaluated for possible thoracentesis, but not enough fluid to tap. - On 03/11, he was switched to Zosyn to cover Gram(+) bacteria as well as for anaerobes given his continued poor response to abx therapy and had recurrence of fevers. Fevers then resolved - On 03/14, he was then switched to PO doxy & Augmentin and completed 5 more days of antibiotics - Seen by pulm on 03/15 -> Slow improvement expected, but no change in course needed. - Encouraged to use incentive spirometry, sit in chair, and work with PT as able. He had increasing oxygen requirement on 03/18-needing 5 L nasal cannula keep pulse ox at 92% just at rest. Repeat CT of the chest was performed which showed enlarging right-sided pleural effusion and extensive infiltrative change -Pleural effusion was large on the right side-thoracentesis performed on 03/18 with removal of 1 L, no evidence of empyema or exudative effusion-appreciate thoracic surgery consultation -CXR 03/19 with some reaccumulation of effusion and CXR on 03/20 stable to slightly improved appearance--> Thoracic Surgery to continue to monitor but does not feel he needs a repeat thoracentesis-can monitor as outpatient -He received IV Lasix on 03/19 in between units of blood -pleural fluid cytology and culture-no growth to date and cytology is negative for malignancy Continues to improve daily with increased mobilization. Continues to have atelectasis and residual infiltrate, needs continued Pulm toilet, IS -Is now weaned down to 2 L nasal cannula -continue to wean off O2 (2) Pneumonia: Secondary to rib fractures, splinting -Treatment as above is now completed Remains afebrile, leukocytosis now resolved (3) Pleural effusion: With thoracentesis on the right for 1 L removed on 03/[address] chest showed worsening pleural effusion on the right, infiltrative disease and mediastinal shift to the right pH 7.4 and LDH low consistent with transudative effusion With plan as above Follow CXR as an outpatient with thoracic surgery in 1-2 weeks -follow pleural fluid studies-cytology negative and culture no growth as above -No need for repeat thoracentesis at this point (4) Multiple rib fractures: Patient had a fall ~02/21. He was seen in the ED on 02/25 for right chest pain and contusions & found to have right 6-8th rib fractures. Was advised to be admitted, but decided to leave. Re-presented on 03/04 with evidence of pneumonia. - Encouraged incentive spirometry & getting into chair, ambulation - Seen by pain management on 03/12 who felt that interventional techniques were not warranted at this time. -Pain is finally with improved control on 03/20 after increasing to home doses of hydrocodone -Continue lidocaine patches and home dosing of hydrocodone/APAP 10/325 mg but takes 1.5 tabs 4x/day as needed (5) Anemia of chronic disease: Baseline hgb ~9.5. Has been lower most of this admission at ~8. Iron studies from 03/10 indicate anemia of chronic disease. - Down to 6.9 on 03/10, but recheck was 7.7. No signs of bleeding. - Down to 7.0 on 03/11 - Transfused 1 unit of PRBCs on 03/11 with rebound to 8.7. -Hemoglobin back down to 7.2 on 03/19 and with thrombocytosis and leukocytosis likely reactive to the severe anemia - Still no signs of bleeding on exam; will try to minimize blood draws as his anemia is likely partially iatrogenic and partly from chronic disease. -Was transfused 2 units on 03/19 given severe fatigue and hemoglobin now up to 9.5 -follow CBC in 3-[address] [facility] -Continue ferrous sulfate 325 mg once daily (6) Acute kidney injury: Baseline Cr ~2.0. Cr up to 4.2 on admission; gradually came back down. Creatinine stable again today at 1.7 -Avoid nephrotoxins -Renally dose medications when appropriate (7) CAD (coronary artery disease): With a history of prior stenting -No chest pain this admission apart from his right-sided, reproducible rib pain. -Continue on metoprolol XL 50mg PO daily which is an increase from home dose -Continue aspirin, statin (8) Hypertension: BP mildly elevated - Continue amlodipine and increased dose ofToprol and titrate as needed (9) Sepsis: Treatment for pneumonia as noted above. - Resolved by 03/11 (10) Thrombocytosis: Platelets up into the 700s-likely reactive secondary to ongoing inflammation and severe anemia Today platelets continue to improve down to 676 as anemia and infection are both improving -Treated infection as above -Follow CBC in 3-5 days at SNF (11) Opioid dependence: Has been on chronic hydrocodone/APAP for many years, usually takes 6 tablets daily of 10/325 -continue home dosing as above (12) Chronic pain: Of the lower back with right-sided radicular pain and similar region of the pain of the rib fractures -Continue home hydrocodone, gabapentin -Evaluated by pain management here and not a candidate for injection at this time due to ongoing pneumonia -Follow-up as an outpatient if desired (13) GERD (gastroesophageal reflux disease): On PPI (14) Anxiety: On home meds of buspirone prn (15) Vitamin B12 deficiency: Continue p.o. 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 -no nocturia or urinary retention prior to admission and may just be related to having Hdz placed when was critically ill -started Flomax 0.4mg hs on 03/19 and will leave Hdz in place for 7-10 more days -will need TOV on/around 03/26 -If continues to have retention issues after next trial of void, would refer to urology as an outpatient (18) Hypoalbuminemia due to protein-calorie malnutrition: Albumin severely low at 1.7 -Added boost protein shakes to diet twice daily (19) DVT prophylaxis: Heparin 5000 units BID was provided Dispo: Stable for transfer long-term facility today at [facility] Total Time Total Time Spent Total Time Spent (In Minutes): >30 min Total Time Includes: Examination of the Patient, Discharge Planning and Medication Reconciliation Discharge Plan Discharge Items Patient Disposition: Transfer [facility] Fac Reason For Visit: ACUTE RESPIRATORY FAILURE, PNEUMONIA Discharge Diagnosis: Acute respiratory failure, Pneumonia Condition: Fair Discharge Goals: Decrease discomfort, Diagnostic testing, Improve disease control, Increase independence, Improve nutritional status, Learn about illness and Therapeutic intervention Activity: As commented below Lifting: Gradually increase as tolerated Bathing: No limitations Exercise/Sports: Gradually increase as tolerated Non-emergency contact: Primary Care Provider and Surgeon Call non-emergency contact if: you have any medication questions, your symptoms worsen, your pain is not controlled, your pain is worsening, your pain is unusual for you, your pain is concerning for you, you have a fever and your temperature is above 100.5 Follow-up/Referrals: Amor Mehta MD, FACS [Surgeon] - (Follow up within 1-2 weeks with Chest xray prior to appointment ) Юлия Harvey MD [Primary Care Provider] - (Follow up after discharge from [facility] ) Diet: Regular Diet Comment: With Boost drinks bid Addtl Provider Instructions: Continue to wean off oxygen as able to keep POx>92%. Please remove Hdz catheter on/around 03/26 for a trial of void; if fails trial of void, please reinsert Hdz and refer to Urology as an outpatient. Needs continued PT/OT and incentive spirometry for persistent atelectasis and infiltrate right lung. Please follow up with Dr. Mehta of Thoracic Surgery within 1-2 weeks with CXR prior to visit to reassess for accumulation of pleural effusion. Needs improved nutrition to get protein levels up also to prevent reaccumulation of fluid. Please check CBC, CMP in 3-5 days. Prescriptions: New ipratropium-albuterol 0.5 mg-3 mg(2.5 mg base)/3 mL Solution For Nebulization 3 ml NEB BIDR Qty: 90 RF: 0 tamsulosin 0.4 mg Capsule 0.4 mg PO HS Qty: 30 RF: 0 ferrous sulfate 325 mg (65 mg iron) Tablet,Delayed Release (Dr/Ec) 325 mg PO QAM Qty: 30 RF: 0 metoprolol succinate 50 mg tablet extended release 24 hr 50 mg PO DAILY Qty: 30 RF: 0 hydrocodone-acetaminophen 10-325 mg tablet 1.5 tab PO Q6H PRN (Reason: pain) Qty: 18 RF: 0 thiamine HCl (vitamin B1) [Vitamin B-1] 100 mg Tablet 100 mg PO QAM Qty: 30 RF: 0 lidocaine 5 % Adhesive Patch,Medicated 2 patch transdermal QAM Qty: 60 RF: 0 folic acid 1 mg Tablet 1 mg PO QAM Qty: 30 RF: 0 Continued atorvastatin 40 mg tablet 40 mg PO QPM RF: 0 buspirone 5 mg tablet 5 mg PO TID PRN (Reason: Anxiety) RF: 0 primidone 50 mg tablet 50 mg PO DAILY RF: 0 cyanocobalamin (vitamin B-12) [Vitamin B-12] 1,000 mcg Tablet 1,000 mcg PO QAM RF: 0 amlodipine 5 mg tablet 5 mg PO BID RF: 0 omeprazole 40 mg capsule,delayed release(DR/EC) 40 mg PO QAM RF: 0 aspirin 81 mg Tablet,Delayed Release (Dr/Ec) 81 mg PO QAM RF: 0 nitroglycerin 0.4 mg tablet, sublingual 0.4 mg sublingual DIRECTED PRN (Reason: Chest Pain) RF: 0 gabapentin 300 mg capsule 600 mg PO HS RF: 0 mirtazapine 45 mg tablet 45 mg PO HS RF: 0 cholecalciferol (vitamin D3) [Vitamin D3] 1,000 unit Capsule 1,000 unit PO QAM RF: 0 Discontinued metoprolol succinate 25 mg tablet extended release 24 hr 25 mg PO DAILY RF: 0 morphine 15 mg tablet 15 - 30 mg PO Q4 PRN (Reason: Pain) RF: 0 Stand-Alone Forms: [facility] Discharge Orders: Discharge Order (Routine); Ordered 03/21/19 Ordered By: Shirley Gregory Skilled Items Patient informed of condition?: Yes DNR: No Discharge Level of Care: Skilled Communicable Disease: No Discharge Prognosis: Improving Admission Data Admit Date/Time: 03/04/19 05:24 Attending Provider: Shirley Gregory Admit Provider: Praneeth Tejada Primary Care Provider: Юлия Harvey Other Providers: Chava Salazar ; Praneeth Tejada ; Foreign Randle ; Arabella Wells ; Dereje Weaver ; Amor Mehta Service: Medical Other Pending Studies at Discharge: No
== END 2019-03-21 13:20 | DRG 871 ==
LOC: ED 00:29 → SUATTDRO 05:24 → 1E 05:24 → 2S 03-07 13:59 → 3N 03-20 16:40

== ENCOUNTER 2019-03-29 15:36 | Inpatient (IN) ==
[2019-03-29] MEDS ORDERED: MoRPHine SULFATE 4 MG/ML 1 ML CARP\\VIAL IV STA (15:41)
[2019-03-29] MEDS ORDERED: ONDANSETRON INJ 2 MG/ML 2 ML VIAL IV STA (15:41)
[2019-03-29] MEDS ORDERED: SODIUM CHLORIDE 0.9% 500 ML IV SCH (15:45)
--- NOTE | 2019-03-29 15:55 | XRay Report ---
XR chest 1V portable CLINICAL HISTORY: Chest Pain dyspnea COMPARISON STUDY: 03/20/2019 FINDINGS: The diffuse bibasilar parenchymal infiltrative changes. Small left pleural effusion. This p otentially relates to a component of cardiac decompensation. IMPRESSION: 1. Mildly progressive basilar infiltrates with underlying component of mild congestive failure. The above report was generated using voice recognition software. It may contain grammatical, syntax or spelling errors. Electronically signed by: Mike Dove M.D. 03/29/2019 3:53 PM
[2019-03-29 16:02] LABS: Basophils # (auto) 0.07 K/uL (0-0.2); Basophils % (auto) 0.4 %; Eosinophils # (auto) 0.51 K/uL (0-0.5); Eosinophils % (auto) 3.3 %; Hematocrit (blood only) 27.5 % (42-52); Hemoglobin 8.8 g/dL (14.0-18.0); Immature Granulocytes # (auto) 0.04 K/uL (0.00-0.02); Immature Granulocytes % (auto) 0.3 %; Lymphocytes # (auto) 1.53 K/uL (1.2-3.4); Lymphocytes % (auto) 9.8 %; Mean Corpuscular Volume 95.5 fL (80-100); Mean Platelet Volume 8.9 fL (7.4-10.4); Monocytes % (auto) 6.4 %; Neutrophils # (auto) 12.47 K/uL (1.4-6.5); Neutrophils % (auto) 79.8 %; Platelet Count 597 K/uL (130-400); RDW Standard Deviation 52.4 fL (36.4-46.3); Red Blood Count 2.88 M/uL (4.7-6.1); White Blood Count 15.62 K/uL (4.8-10.8)
[2019-03-29 16:19] LABS: INR 1.1 (0.9-1.1); Partial Thromboplastin Ratio 1.1; Partial Thromboplastin Time 29.3 Seconds (21.0-31.0); Prothrombin Time 11.3 Seconds (9.0-12.0)
[2019-03-29 16:20] LABS: Alanine Aminotransferase 17 U/L (12-78); Aspartate Aminotransferase 13 U/L (15-37); BUN Creatinine Ratio 19.9 (10-20); Blood Urea Nitrogen 34 mg/dl (7-18); Calcium 8.7 mg/dl (8.5-10.1); Carbon Dioxide 27 mmol/L (21-32); Chloride 106 mmol/L (98-107); Creatinine Clr Calc Pharmacy 32.4 ml/min; Est GFR (African American) 43.8; Est GFR (Non-African American) 37.8; Glucose 112 mg/dl (70-99); Magnesium 1.2 mg/dl (1.8-2.4); Sodium 139 mmol/L (136-145)
[2019-03-29 16:25] LABS: Albumin Globulin Ratio 0.4 (0.9-2); Alkaline Phosphatase 65 U/L (45-117); Bilirubin,Total 0.2 mg/dl (0.2-1); Globulin 5.5 gm/dl (2.5-4.0); Total Protein 7.5 gm/dl (6.4-8.2); Troponin I < 0.015 ng/ml (0-0.045)
[2019-03-29] MEDS ORDERED: HYDROmorphone INJ 1 MG/ML SYRINGE IV STA (16:25)
[2019-03-29 16:32] LABS: iSTAT Creatinine 1.8 mg/dl (0.6-1.3); iSTAT Hemoglobin 8.8 g/dl (14.0-18.0); iSTAT Ionized Calcium 1.1 mmol/l (1.12-1.32); iSTAT Potassium 5.1 mEq/L (3.3-5.0)
[2019-03-29] MEDS ORDERED: OPTIRAY 320 125ml IV PRN (16:37)
--- NOTE | 2019-03-29 16:51 | CT Scan Report ---
CT ANGIOGRAM OF THE CHEST CLINICAL HISTORY: Atypical left-sided chest pain. Suspected pulmonary embolism. COMPARISON STUDY: 03/18/2019 TECHNIQUE: Following the IV administration of 119 mL of [id number]-320, CT angiogram of the thorax was p erformed from the thoracic inlet to the lung bases utilizing the pulmonary embolus protocol. Images a re reviewed in the axial, sagittal, and coronal planes. IV contrast was administered without complica tion. MIP imaging was performed. A dose lowering technique was utilized adhering to the principles o f ALARA. CT DOSE: 250.19 mGy.cm FINDINGS: There is a mildly enlarged subcarinal lymph node. There are borderline enlarged right hilar lymph nod es. There is no pathologic axillary lymphadenopathy. The ascending thoracic aorta measures 35 mm. The main pulmonary trunk is mildly dilated. Pulmonary artery hypertension is suspected. There are no pulmonary artery filling defects to indicate acute pulmonary embolism There is an enlarging moderate to large left pleural effusion with dependent left lower lobe airspace opacities, likely atelectatic. There is a decreasing small right pleural effusion. There are right u pper lobe and right lower lobe airspace opacities with air bronchograms, atelectatic versus pneumonia . There is severe underlying pulmonary emphysema. Fractures of the right sixth seventh and eighth ribs are again evident IMPRESSION: 1. No evidence of acute pulmonary embolism 2. Severe emphysema 3. Significant interval increase in the size of a moderate to large left pleural effusion 4. Interval decrease in size of the right pleural effusion 5. Bilateral pulmonary airspace opacities, atelectasis versus pneumonia. 6. Mild subcarinal lymphadenopathy 7. Subacute fractures of the right sixth, seventh, and eighth ribs. Electronically signed by: Vadim Brand M.D. 03/29/2019 4:50 PM
[2019-03-29] MEDS: MAGNESIUM SULFATE / D5W 1 GM/100 ML BAG IV SCH ×2 (17:00→18:04)
--- NOTE | 2019-03-29 17:46 | Emergency Department Note ---
Entered by Shannan Mcarthur acting as a scribe for Antonio Edgar DO History of Present Illness General Chief complaint: Shortness of Breath/Dyspnea Source: patient Mode of arrival: EMS Limitations: no limitations History of Present Illness Onset (ago): day(s) 3 Location: chest Pain Consistency: + constant Relieved By: + none Exacerbated By: + movement Treatments prior to arrival: other (DuoNeb, Nitro) The patient is a 78 year old male who presents to the ED with complaints of persistent shortness of breath. He was brought to the ED via EMS from [facility], where he resides. EMS states he was given 2 DuoNeb treatments and 1 Nitro in the field. The patient reports he was recently treated in the hospital for pneumonia. Movement and exertion worsen his breathing. He does take daily Aspirin. Home Medications Home Medications Medication Instructions Recorded Confirmed Type amlodipine 5 mg PO BID 02/25/19 03/29/19 History aspirin 81 mg PO QAM 02/25/19 03/29/19 History atorvastatin 40 mg PO QPM 02/25/19 03/29/19 History buspirone 5 mg PO TID PRN 02/25/19 03/29/19 History cholecalciferol (vitamin D3) 1,000 unit PO QAM 02/25/19 03/29/19 History [Vitamin D3] cyanocobalamin (vitamin B-12) 1,000 mcg PO QAM 02/25/19 03/29/19 History [Vitamin B-12] gabapentin 600 mg PO HS 02/25/19 03/29/19 History mirtazapine 45 mg PO HS 02/25/19 03/29/19 History nitroglycerin 0.4 mg SUBLINGUAL DIRECTED PRN 02/25/19 03/29/19 History omeprazole 40 mg PO QAM 02/25/19 03/29/19 History primidone 50 mg PO DAILY 02/25/19 03/29/19 History ferrous sulfate 325 mg PO QAM #30 tab 03/21/19 03/29/19 Rx folic acid 1 mg PO QAM #30 tab 03/21/19 03/29/19 Rx hydrocodone-acetaminophen 1.5 tab PO Q6H PRN #18 tab 03/21/19 03/29/19 Rx ipratropium-albuterol 3 ml NEB BIDR #90 ml 03/21/19 03/29/19 Rx lidocaine 2 patch TRANSDERMAL QAM #60 ea 03/21/19 03/29/19 Rx metoprolol succinate 50 mg PO DAILY #30 tab 03/21/19 03/29/19 Rx tamsulosin 0.4 mg PO HS #30 cap 03/21/19 03/29/19 Rx thiamine HCl (vitamin B1) [Vitamin 100 mg PO QAM #30 tab 03/21/19 03/29/19 Rx B-1] Allergies Allergy/AdvReac Type Severity Reaction Status Date / Time cefuroxime Allergy Unknown rash Verified 03/29/19 16:12 Past Med/Surg History Medical History Opioid dependence (Chronic) Anemia of chronic disease (Chronic) Rib pain on right side (Chronic) GERD (gastroesophageal reflux disease) (Chronic) Anxiety (Chronic) Vitamin B12 deficiency (Chronic) Hyperlipidemia LDL goal <70 (Chronic) CAD (coronary artery disease) (Chronic) Hypertension (Chronic) Fall (Inactive) Multiple rib fractures (Inactive) Surgical History H/O heart artery stent (Chronic) Family History Other No significant family history Social History Preferred Language: Kyrgyz Communication Ability: Effective Retail [employer]er Required: No Beliefs That Will Affect Care: None Current Living Situation: Spouse Other Information That Helps Us Care for You: No Feels Safe at Home: Yes Safety Concerns: Feels Safe At This Time Smoking Status: Former smoker Do You Dip or Chew Tobacco: No Second Hand Exposure: No Tobacco Cessation Education Requested by Patient: No Hx Alcohol Use: Yes Hx Substance Use: No Physical Exam Vital Signs Vital Signs - 24 hr 03/29/19 15:41 03/29/19 15:45 03/29/19 15:48 Temperature 36.7 C Temperature Source Oral Sepsis Recent Fever Within 48 Hours No Sepsis New/Unexplained Change in Mental Status No Sepsis Action Taken by Nursing No Action Required Pulse Rate 112 H 111 H 112 H Pulse Rate from SpO2 Sensor 112 H 113 H Pulse Rhythm Regular Respiratory Rate 19 20 20 Respiratory Effort / Characteristics Respiratory Depth Respiratory Pattern Blood Pressure 147/81 H 147/81 H Blood Pressure Mean 103 103 Blood Pressure Position Sitting Pulse Oximetry 92 92 91 Oxygen Delivery Method Nasal Cannula Nasal Cannula Nasal Cannula Oxygen Flow Rate 2 2 03/29/19 15:49 03/29/19 15:51 03/29/19 16:00 Temperature Temperature Source Sepsis Recent Fever Within 48 Hours Sepsis New/Unexplained Change in Mental Status Sepsis Action Taken by Nursing Pulse Rate 111 H Pulse Rate from SpO2 Sensor 111 H Pulse Rhythm Respiratory Rate 20 Respiratory Effort / Characteristics Non-Labored Spontaneous Respiratory Depth Shallow Respiratory Pattern Regular Blood Pressure Blood Pressure Mean Blood Pressure Position Pulse Oximetry 91 90 Oxygen Delivery Method Nasal Cannula Nasal Cannula Nasal Cannula Oxygen Flow Rate 2 2 2 03/29/19 17:29 03/29/19 17:30 03/29/19 18:00 Temperature Temperature Source Sepsis Recent Fever Within 48 Hours Sepsis New/Unexplained Change in Mental Status Sepsis Action Taken by Nursing Pulse Rate 113 H 113 H 108 H Pulse Rate from SpO2 Sensor 113 H 113 H 109 H Pulse Rhythm Respiratory Rate 14 19 18 Respiratory Effort / Characteristics Respiratory Depth Respiratory Pattern Blood Pressure 134/67 138/76 Blood Pressure Mean 89 96 Blood Pressure Position Pulse Oximetry 86 L 86 L 86 L Oxygen Delivery Method Nasal Cannula Nasal Cannula Nasal Cannula Oxygen Flow Rate 2 2 2 03/29/19 18:01 03/29/19 18:10 03/29/19 18:20 Temperature Temperature Source Sepsis Recent Fever Within 48 Hours Sepsis New/Unexplained Change in Mental Status Sepsis Action Taken by Nursing Pulse Rate 110 H 107 H 106 H Pulse Rate from SpO2 Sensor 110 H 107 H 107 H Pulse Rhythm Respiratory Rate 20 17 17 Respiratory Effort / Characteristics Respiratory Depth Respiratory Pattern Blood Pressure Blood Pressure Mean Blood Pressure Position Pulse Oximetry 87 L 90 91 Oxygen Delivery Method Nasal Cannula Oxygen Flow Rate 2 03/29/19 18:30 03/29/19 18:31 03/29/19 18:40 Temperature Temperature Source Sepsis Recent Fever Within 48 Hours Sepsis New/Unexplained Change in Mental Status Sepsis Action Taken by Nursing Pulse Rate 106 H 106 H 115 H Pulse Rate from SpO2 Sensor 106 H 106 H 115 H Pulse Rhythm Respiratory Rate 15 17 25 H Respiratory Effort / Characteristics Respiratory Depth Respiratory Pattern Blood Pressure 155/82 H Blood Pressure Mean 106 Blood Pressure Position Pulse Oximetry 90 89 L 82 L Oxygen Delivery Method Oxygen Flow Rate 03/29/19 18:50 03/29/19 19:00 03/29/19 19:01 Temperature Temperature Source Sepsis Recent Fever Within 48 Hours Sepsis New/Unexplained Change in Mental Status Sepsis Action Taken by Nursing Pulse Rate 104 H 105 H 107 H Pulse Rate from SpO2 Sensor 104 H 105 H 107 H Pulse Rhythm Respiratory Rate 11 L 22 22 Respiratory Effort / Characteristics Respiratory Depth Respiratory Pattern Blood Pressure 141/82 H Blood Pressure Mean 101 Blood Pressure Position Pulse Oximetry 91 89 L 88 L Oxygen Delivery Method Oxygen Flow Rate 03/29/19 19:10 03/29/19 19:20 03/29/19 19:30 Temperature Temperature Source Sepsis Recent Fever Within 48 Hours Sepsis New/Unexplained Change in Mental Status Sepsis Action Taken by Nursing Pulse Rate 106 H 105 H 104 H Pulse Rate from SpO2 Sensor 106 H 104 H 104 H Pulse Rhythm Respiratory Rate 20 13 21 Respiratory Effort / Characteristics Respiratory Depth Respiratory Pattern Blood Pressure 129/71 Blood Pressure Mean 90 Blood Pressure Position Pulse Oximetry 91 93 92 Oxygen Delivery Method Oxygen Flow Rate 03/29/19 19:31 03/29/19 19:40 03/29/19 19:50 Temperature Temperature Source Sepsis Recent Fever Within 48 Hours Sepsis New/Unexplained Change in Mental Status Sepsis Action Taken by Nursing Pulse Rate 103 H 106 H 108 H Pulse Rate from SpO2 Sensor 103 H 106 H 109 H Pulse Rhythm Respiratory Rate 19 19 22 Respiratory Effort / Characteristics Respiratory Depth Respiratory Pattern Blood Pressure Blood Pressure Mean Blood Pressure Position Pulse Oximetry 92 90 88 L Oxygen Delivery Method Oxygen Flow Rate 03/29/19 20:00 03/29/19 20:01 03/29/19 20:10 Temperature Temperature Source Sepsis Recent Fever Within 48 Hours Sepsis New/Unexplained Change in Mental Status Sepsis Action Taken by Nursing Pulse Rate 102 H 102 H 100 H Pulse Rate from SpO2 Sensor 102 H 102 H 100 H Pulse Rhythm Respiratory Rate 10 L Respiratory Effort / Characteristics Respiratory Depth Respiratory Pattern Blood Pressure 151/82 H Blood Pressure Mean 105 Blood Pressure Position Pulse Oximetry 92 93 94 Oxygen Delivery Method Oxygen Flow Rate 03/29/19 20:20 03/29/19 20:30 03/29/19 20:31 Temperature Temperature Source Sepsis Recent Fever Within 48 Hours Sepsis New/Unexplained Change in Mental Status Sepsis Action Taken by Nursing Pulse Rate 97 H 99 H 96 H Pulse Rate from SpO2 Sensor 97 H 98 H 96 H Pulse Rhythm Respiratory Rate 10 L 8 L Respiratory Effort / Characteristics Respiratory Depth Respiratory Pattern Blood Pressure 138/77 Blood Pressure Mean 97 Blood Pressure Position Pulse Oximetry 93 93 94 Oxygen Delivery Method Oxygen Flow Rate 03/29/19 20:40 Temperature Temperature Source Sepsis Recent Fever Within 48 Hours Sepsis New/Unexplained Change in Mental Status Sepsis Action Taken by Nursing Pulse Rate 95 H Pulse Rate from SpO2 Sensor 96 H Pulse Rhythm Respiratory Rate 8 L Respiratory Effort / Characteristics Respiratory Depth Respiratory Pattern Blood Pressure Blood Pressure Mean Blood Pressure Position Pulse Oximetry 94 Oxygen Delivery Method Oxygen Flow Rate GENERAL: Patient is awake, alert, very anxious and appears uncomfortable. EYES: The conjunctivae are clear. The pupils are round and reactive. EARS, NOSE, MOUTH AND THROAT: The nose is without any evidence of any deformity. Mucous membranes are moist. Tongue is midline NECK: The neck is nontender and supple. RESPIRATORY: Lung sounds are diminished in the left lung field, rales at right base, splinting respirations were noted. CARDIOVASCULAR: Heart sounds are tachycardic and distant. Regular rhythm noted. There no murmurs rubs or gallops normal S1 normal S2 GASTROINTESTINAL: The abdomen is soft. Bowel sounds are present in all quadrants. Abdomen is nontender. MUSCULOSKELETAL/EXTREMITIES: There is no evidence of gross deformity. Full range of motion is noted in the hips and shoulders. SKIN: There is no obvious evidence of any rash. There are no petechiae, pallor or cyanosis noted. NEUROLOGIC: Patient is awake alert and oriented x3. Course 1536: The patient was evaluated in room B9 and a complete history and physical were performed. 1705: I reevaluated the patient. He is resting comfortably. I discussed his results and my recommendation he remain in the hospital for further evaluation and management and he verbalized complete understanding and agreement. 1715: [facility] further evaluated. Consultations Consultation #1: [facility] The [facility] will be further evaluated. Time: 17:15 Administered Medications Acetaminophen (Tylenol) 650 mg PO Q4H PRN PRN Reason: Pain or Fever Stop: 04/28/19 21:47 Last Admin: 03/30/19 00:27 Dose: 650 mg Documented by: [id number] Albuterol (Duoneb) 3 ml NEB BIDR [facility] Stop: 04/29/19 07:59 Last Admin: 03/30/19 07:04 Dose: 3 ml Documented by: [id number] Amlodipine Besylate (Norvasc) 5 mg PO BID [facility] Stop: 04/28/19 21:47 Last Admin: 03/30/19 08:55 Dose: 5 mg Documented by: [id number] Admin: 03/29/19 23:17 Dose: 5 mg Documented by: [id number] Aspirin (Ecotrin Ectab) 81 mg PO QAM [facility] Stop: 04/29/19 08:59 Last Admin: 03/30/19 08:55 Dose: 81 mg Documented by: [id number] Atorvastatin Calcium (Lipitor) 40 mg PO QPM [facility] Stop: 04/28/19 21:47 Last Admin: 03/29/19 23:18 Dose: 40 mg Documented by: [id number] Buspirone HCl (Buspar) 5 mg PO TID PRN PRN Reason: Anxiety Stop: 04/28/19 21:47 Last Admin: 03/29/19 23:27 Dose: 5 mg Documented by: [id number] [facility]yanocobalamin ([facility]itamin [facility]) [facility]: 04/29/19 08:59 Last Admin: 03/30/19 08:55 Dose: 1,000 mcg Documented by: [id number] Ferrous Sulfate (Feosol) [facility] Stop: 04/29/19 08:59 Last Admin: 03/30/19 08:55 Dose: 325 mg Documented by: [id number] Folic Acid (Folvite) [facility] Stop: 04/29/19 08:59 Last Admin: 03/30/19 08:55 Dose: 1 mg Documented by: [id number] Gabapentin (Neurontin) 600 mg PO HS [facility] Stop: 04/28/19 21:47 Last Admin: 03/29/19 23:15 Dose: 600 mg Documented by: [id number] Hydromorphone HCl (Dilaudid) 0.5 mg IV Q4H PRN PRN Reason: Pain Stop: 04/12/19 21:47 Last Admin: 03/30/19 09:00 Dose: 0.5 mg Documented by: [id number] Admin: 03/29/19 23:11 Dose: 0.5 mg Documented by: [id number] Piperacillin Sod/Tazobactam (Sod 3.375 gm/ Dextrose) 115 mls @ 28.75 mls/hr IV Q8H [facility]; Protocol Stop: 04/05/19 03:59 Last Infusion: 03/30/19 08:34 Dose: 0 mls/hr Documented by: [id number] Admin: 03/30/19 04:03 Dose: 28.8 mls/hr Documented by: [id number] Lidocaine (Lidoderm 5%) 2 patch TD [facility] Stop: 04/29/19 08:59 Last Admin: 03/30/19 09:00 Dose: Not Given Documented by: [id number] Metoprolol Succinate (Toprol Xl) 50 mg PO DAILY [facility] Stop: 04/29/19 08:59 Last Admin: 03/30/19 08:55 Dose: 50 mg Documented by: [id number] Mirtazapine (Remeron Solutab) 45 mg PO [facility] Stop: 04/28/19 21:47 Last Admin: 03/29/19 23:16 Dose: 45 mg Documented by: [id number] Miscellaneous (Remove Lidoderm Patch) 1 ea N/A DAILY@2100 [facility] Stop: 04/28/19 21:47 Last Admin: 03/29/19 23:17 Dose: 1 ea Documented by: [id number] Pantoprazole Sodium (Protonix) 40 mg PO [facility] Stop: 04/29/19 08:59 Last Admin: 03/30/19 08:55 Dose: 40 mg Documented by: [id number] Primidone (Primidone) 50 mg PO DAILY [facility] Stop: 04/29/19 08:59 Last Admin: 03/30/19 08:55 Dose: 50 mg Documented by: [id number] Tamsulosin HCl (Flomax) 0.4 mg PO [facility] Stop: 04/28/19 21:47 Last Admin: 03/29/19 23:16 Dose: 0.4 mg Documented by: [id number] Thiamine HCl (Vitamin B-1) 100 mg PO [facility] Stop: 04/29/19 08:59 Last Admin: 03/30/19 08:55 Dose: 100 mg Documented by: [id number] Vitamin D (Vitamin D3) 1,000 units PO [facility] Stop: 04/29/19 08:59 Last Admin: 03/30/19 08:55 Dose: 1,000 units Documented by: [id number] Discontinued Medications Hydromorphone HCl (Dilaudid) 1 mg IV NOW [facility] Stop: 03/29/19 16:26 Last Admin: 03/29/19 16:34 Dose: 1 mg Documented by: [id number] Sodium Chloride (Nss) 500 mls @ 999 mls/hr IV .Q31M [facility] Stop: 03/29/19 16:15 Last Infusion: 03/29/19 16:34 Dose: 0 mls/hr Documented by: [id number] Admin: 03/29/19 15:59 Dose: 999 mls/hr Documented by: [id number] Magnesium Sulfate/Dextrose (Magnesium Sulfate / D5w) 1 gm in 100 mls @ 100 mls/hr IV Q1H [facility] Stop: 03/29/19 18:29 Last Infusion: 03/29/19 19:59 Dose: 0 mls/hr Documented by: [id number] Admin: 03/29/19 18:04 Dose: 100 mls/hr Documented by: [id number] Infusion: 03/29/19 18:03 Dose: 0 mls/hr Documented by: [id number] Admin: 03/29/19 17:00 Dose: 100 mls/hr Documented by: [id number] Piperacillin Sod/Tazobactam (Sod 3.375 gm/ Dextrose) 115 mls @ 230 mls/hr IV NOW ST[facility]; Protocol Stop: 03/29/19 22:48 Last Infusion: 03/30/19 00:13 Dose: 0 mls/hr Documented by: [id number] Admin: 03/29/19 23:15 Dose: 230 mls/hr Documented by: [id number] Vancomycin HCl 1,250 mg/ (Sodium Chloride) 275 mls @ 125 mls/hr IV NOW ONE; Protocol Stop: 03/29/19 23:59 Last Infusion: 03/30/19 00:52 Dose: 0 mls/hr Documented by: [id number] Admin: 03/29/19 22:27 Dose: 125 mls/hr Documented by: [id number] Lorazepam (Ativan) 0.5 mg in 1 mls @ 1 mls/min IV NOW STA Stop: 03/29/19 23:39 Last Admin: 03/29/19 23:56 Dose: 1 mls/min Documented by: [id number] Ioversol (Optiray 320 125ml) 119 ml IV ONCE PRN PRN Reason: Interaction Checking Stop: 04/02/19 16:36 Last Admin: 03/29/19 16:38 Dose: 119 ml Documented by: [id number] Morphine Sulfate (Morphine Sulfate) 4 mg IV NOW STA Stop: 03/29/19 15:42 Last Admin: 03/29/19 15:59 Dose: 4 mg Documented by: [id number] Ondansetron HCl (Zofran) 4 mg IV NOW STA Stop: 03/29/19 15:42 Last Admin: 03/29/19 15:59 Dose: 4 mg Documented by: [id number] Medical Decision Making Differential Diagnosis Differential: Infectious, Reactive Airway Disease, Pneumonia, Pneumothorax, COPD, CHF, ACS, Pulmonary Embolism, MSK, GI, Dissection, amongst other etiologies entertained. Medical Records Attestation: I reviewed the patient's medical records. Home Medications Current Medication List: was personally reviewed by me Laboratory Data Attestation: I reviewed the patient's lab results. Result diagrams: 03/30/19 05:19 03/30/19 05:19 Lab Results 03/29/19 03/29/19 03/29/19 Range/Units 15:53 15:53 15:53 WBC 15.62 H (4.8-10.8) K/uL RBC 2.88 L (4.7-6.1) M/uL Hgb 8.8 L (14.0-18.0) g/dL POC Hgb (14.0-18.0) g/dl Hct 27.5 L (42-52) % POC Hct (42-52) % MCV 95.5 (80-100) fL MCH 30.6 (25-34) pg MCHC 32.0 (32-36) g/dL RDW Std Deviation 52.4 H (36.4-46.3) fL RDW Coeff of Lucas 15.0 H (11.5-14.5) % Plt Count 597 H (130-400) K/uL MPV 8.9 (7.4-10.4) fL Immature Gran % (Auto) 0.3 % Neut % (Auto) 79.8 % Lymph % (Auto) 9.8 % [place] % (Auto) 6.4 % Eos % (Auto) 3.3 % Baso % (Auto) 0.4 % Immature Gran # (Auto) 0.04 H (0.00-0.02) K/uL Neut # (Auto) 12.47 H (1.4-6.5) K/uL Lymph # (Auto) 1.53 (1.2-3.4) K/uL [place] # (Auto) 1.00 H (0.11-0.59) K/uL Eos # (Auto) 0.51 H (0-0.5) K/uL Baso # (Auto) 0.07 (0-0.2) K/uL PT 11.3 (9.0-12.0) Seconds INR 1.1 (0.9-1.1) APTT 29.3 (21.0-31.0) Seconds PTT Ratio 1.1 POC Sodium (135-144) mEq/L Sodium 139 (136-145) mmol/L POC Potassium (3.3-5.0) mEq/L Potassium 5.0 (3.5-5.1) mmol/L POC Chloride (101-112) mEq/L Chloride 106 (98-107) mmol/L Carbon Dioxide 27 (21-32) mmol/L POC Total CO2 (24-31) mEq/l Anion Gap 7.0 (3-11) POC Anion Gap (16-25) mmol/L POC BUN (7-18) mg/dl BUN 34 H (7-18) mg/dl Creatinine 1.72 H (0.6-1.4) mg/dl POC Creatinine (0.6-1.3) mg/dl Est Cr Clr Drug Dosing 32.4 ml/min Est GFR ( Amer) 43.8 Est GFR (Non-Af Amer) 37.8 BUN/Creatinine Ratio 19.9 (10-20) Glucose 112 H (70-99) mg/dl POC Glucose (other) (70-99) mg/dl Calcium 8.7 (8.5-10.1) mg/dl POC Ioniz Calcium Gerald (1.12-1.32) mmol/l Magnesium 1.2 L (1.8-2.4) mg/dl Total Bilirubin 0.2 (0.2-1) mg/dl AST 13 L (15-37) U/L ALT 17 (12-78) U/L Alkaline Phosphatase 65 (45-117) U/L Troponin I < 0.015 (0-0.045) ng/ml Total Protein 7.5 (6.4-8.2) gm/dl Albumin 2.0 L (3.4-5.0) gm/dl Globulin 5.5 H (2.5-4.0) gm/dl Albumin/Globulin Ratio 0.4 L (0.9-2) Lipase 108 (73-393) U/L 03/29/19 Range/Units 16:17 WBC (4.8-10.8) K/uL RBC (4.7-6.1) M/uL Hgb (14.0-18.0) g/dL POC Hgb 8.8 L (14.0-18.0) g/dl Hct (42-52) % POC Hct 26 L (42-52) % MCV (80-100) fL MCH (25-34) pg MCHC (32-36) g/dL RDW Std Deviation (36.4-46.3) fL RDW Coeff of Lucas (11.5-14.5) % Plt Count (130-400) K/uL MPV (7.4-10.4) fL Immature Gran % (Auto) % Neut % (Auto) % Lymph % (Auto) % [place] % (Auto) % Eos % (Auto) % Baso % (Auto) % Immature Gran # (Auto) (0.00-0.02) K/uL Neut # (Auto) (1.4-6.5) K/uL Lymph # (Auto) (1.2-3.4) K/uL [place] # (Auto) (0.11-0.59) K/uL Eos # (Auto) (0-0.5) K/uL Baso # (Auto) (0-0.2) K/uL PT (9.0-12.0) Seconds INR (0.9-1.1) APTT (21.0-31.0) Seconds PTT Ratio POC Sodium 139 (135-144) mEq/L Sodium (136-145) mmol/L POC Potassium 5.1 H (3.3-5.0) mEq/L Potassium (3.5-5.1) mmol/L POC Chloride 103 (101-112) mEq/L Chloride (98-107) mmol/L Carbon Dioxide (21-32) mmol/L POC Total CO2 24 (24-31) mEq/l Anion Gap (3-11) POC Anion Gap 18.0 (16-25) mmol/L POC BUN 32 H (7-18) mg/dl BUN (7-18) mg/dl Creatinine (0.6-1.4) mg/dl POC Creatinine 1.8 H (0.6-1.3) mg/dl Est Cr Clr Drug Dosing ml/min Est GFR ( Amer) Est GFR (Non-Af Amer) BUN/Creatinine Ratio (10-20) Glucose (70-99) mg/dl POC Glucose (other) 119 H (70-99) mg/dl Calcium (8.5-10.1) mg/dl POC Ioniz Calcium Gerald 1.10 L (1.12-1.32) mmol/l Magnesium (1.8-2.4) mg/dl Total Bilirubin (0.2-1) mg/dl AST (15-37) U/L ALT (12-78) U/L Alkaline Phosphatase (45-117) U/L Troponin I (0-0.045) ng/ml Total Protein (6.4-8.2) gm/dl Albumin (3.4-5.0) gm/dl Globulin (2.5-4.0) gm/dl Albumin/Globulin Ratio (0.9-2) Lipase (73-393) U/L Imaging Data Radiologist's Impression: Radiology results as stated below per my review and the radiologist's interpretation: XR chest 1V portable CLINICAL HISTORY: Chest Pain dyspnea COMPARISON STUDY: 03/20/2019 FINDINGS: The diffuse bibasilar parenchymal infiltrative changes. Small left pleural effusion. This potentially relates to a component of cardiac decompensation. IMPRESSION: 1. Mildly progressive basilar infiltrates with underlying component of mild congestive failure. The above report was generated using voice recognition software. It may contain grammatical, syntax or spelling errors. Electronically signed by: Mike Dove M.D. 03/29/2019 3:[address] ANGIOGRAM OF THE CHEST CLINICAL HISTORY: Atypical left-sided chest pain. Suspected pulmonary embolism. COMPARISON STUDY: 03/18/2019 TECHNIQUE: Following the IV administration of 119 mL of [id number]-320, CT angiogram of the thorax was performed from the thoracic inlet to the lung bases utilizing the pulmonary embolus protocol. Images are reviewed in the axial, sagittal, and coronal planes. IV contrast was administered without complication. MIP imaging was performed. A dose lowering technique was utilized adhering to the principles of ALARA. CT DOSE: 250.19 mGy.cm FINDINGS: There is a mildly enlarged subcarinal lymph node. There are borderline enlarged right hilar lymph nodes. There is no pathologic axillary lymphadenopathy. The ascending thoracic aorta measures 35 mm. The main pulmonary trunk is mildly dilated. Pulmonary artery hypertension is suspected. There are no pulmonary artery filling defects to indicate acute pulmonary embolism There is an enlarging moderate to large left pleural effusion with dependent left lower lobe airspace opacities, likely atelectatic. There is a decreasing small right pleural effusion. There are right upper lobe and right lower lobe airspace opacities with air bronchograms, atelectatic versus pneumonia. There is severe underlying pulmonary emphysema. Fractures of the right sixth seventh and eighth ribs are again evident IMPRESSION: 1. No evidence of acute pulmonary embolism 2. Severe emphysema 3. Significant interval increase in the size of a moderate to large left pleural effusion 4. Interval decrease in size of the right pleural effusion 5. Bilateral pulmonary airspace opacities, atelectasis versus pneumonia. 6. Mild subcarinal lymphadenopathy 7. Subacute fractures of the right sixth, seventh, and eighth ribs. Electronically signed by: Vadim Brand M.D. 03/29/2019 4:50 PM ECG Data Attestation: I personally reviewed and interpreted this ECG as follows: Indication: SOB/dyspnea Rate (beats per minute): 113 Rhythm: sinus tachycardia Findings: + other (No acute ST segments, no definite murmurs) and + T-wave inversion (Symmetric TWI anterior leads); no ectopy Comparison ECG Date: from (03/11/2019) Change: no significant change Blood Pressure Blood Pressure Findings: Elevated blood pressure Blood Pressure Disposition: further management by hospitalist MARTÍN De La Rosa The patient is a 78-year-old male who presented to the emergency department by ambulance for an evaluation of chest pain. The patient was found to have significant EKG changes. He was also found to have hypoxia. The patient was recently admitted to our facility after a fall resulting in rib fractures. At that time he did have a pleural effusion on the right hemithorax which was drained by thoracic surgery. He presents emergency department today with worsening chest pain mostly on the left. Given the EKG changes and the hypoxia was concern for pulmonary embolism. CT the chest did not reveal signs of pulmonary embolus but did reveal significant left-sided pleural effusion. The patient was treated with pain medication in the emergency department. Given the amount of hypoxia and the size of the pleural effusion as well as the abnormal EKG I felt the patient may be candidate for further inpatient work-up and inpatient management. The [facility] hospitalist was notified about the patient. They will evaluate the patient in the emergency department for further management and disposition. I discussed the patient's laboratory and radiographic studies with him as well as his significant other. Impression & Plan Chest pain, Pleural effusion, Abnormal EKG, Hypomagnesemia, Fracture, ribs, Hypoxia Discharge Plan Visit Data *Final* Discharge Date/Time: 03/29/19 21:27 Chief Complaint: Shortness of Breath/Dyspnea ED Provider: Antonio Edgar Discharge Problem: Chest pain, Pleural effusion, Abnormal EKG, Hypomagnesemia, Fracture, ribs, Hypoxia Patient Disposition: Admitted As Inpatient Discharge Instructions Interventions: ED Discharge Assessment Last Done: 03/29/19 21:27 Discharge Problem: Chest pain Qualifiers: Chest pain type: unspecified Qualified Code(s): R07.9 - Chest pain, unspecified Fracture, ribs Qualifiers: Encounter type: subsequent encounter Rib fracture type: multiple ribs Fracture type: closed Laterality: right Fracture healing: with routine healing Qualified Code(s): S22.41XD - Multiple fractures of ribs, right side, subsequent encounter for fracture with routine healing The scribe's documentation has been prepared under my direction and personally reviewed by me in its entirety. I confirm that the note above accurately reflects all work, treatment, procedures, and medical decision making performed by me.
--- NOTE | 2019-03-29 21:01 | History & Physical Report ---
Date of Service March 29, 2019 Assessment & Plan (1) Shortness of breath: 78-year-old male was admitted on 29 March 2019 for shortness of breath. Of note he was discharged on to [facility] for right-sided rib fractures, acute respiratory failure with pneumonia, and KEAGAN due to decreased oral intake. Shortness of breath, hypoxia, bilateral pleural effusions, recent PNA: Patient actually notes more acute on chronic left-sided rib regional pain than SOB. S/p right thoracentesis & one liter removed on . No noted symptomatic improvement with duo nebs or nitroglycerin via EMS. - On arrival, afebrile, mildly tachycardic, RR 20, 87% on 2 L nasal cannula. WBC 15. CTA chest notes bilateral pleural effusions and opacities (amongst others, see full report). Concern for developing abscess. - In ED, treated with Zofran, 500 mL NS IVF, morphine and dilaudid. - On admit, send blood cultures. Start vancomycin and Zosyn 3.375 gm q6h (renal-dosed). Re-consult thoracic surgery. Hyperkalemia: Admit K 5.1. EKG sinus tachy 113 with normal shaped T waves but inversions in V2 & V3. Monitoring. Hypomagnesemia: Admit Mg 1.2. Replaced in ED. Recheck in a.m. Ongoing medical issues: - Hypertension, hyperlipidemia, CAD s/p prior stent: Continue home aspirin, amlodipine, atorvastatin, metoprolol. - Anemia of chronic disease: Transfused total 3 units PRBC on admission earlier in March. This admit Hb 8.8. Continue home ferrous sulfate. - Vitamin B12 deficiency: Continue home cyanocobalamin. - GERD: Continue home omeprazole - Opioid dependence: Continue home gabapentin, mirtazapine, [place], lidocaine patch. - Multiple rib fractures: S/p fall around 23May. - Anxiety: Continue home buspirone. - Urinary retention: On home tamsulosin. - Chronic renal insufficiency: Admit Cr 1.8, similar to baseline. - Right hand tremor: On home primidone. Code status: Full code. Diet: N.p.o. at midnight. DVT prophy: Chemical prophylaxis held in case of thoracentesis tomorrow. SCDs. PT/OT: Ordered. Disbo: Admit to [facility] telemetry. Normally lives at home with his . (2) Hypoxia: (3) Pleural effusion: (4) Hypomagnesemia: (5) Hypertension: (6) Hyperkalemia: (7) Hyperlipidemia LDL goal <70: (8) CAD (coronary artery disease): (9) Anemia of chronic disease: (10) Vitamin B12 deficiency: (11) GERD (gastroesophageal reflux disease): (12) Opioid dependence: (13) Fracture, ribs: (14) Chronic pain: (15) Anxiety: (16) Urinary retention: (17) Chronic renal insufficiency: (18) Tremor of right hand: History of Present Illness Primary Care Provider: [facility] 78-year-old male was recently admitted from 27May to [facility] for multiple right- sided rib fractures, shortness of breath, history of failure, pleural effusions, and pneumonia. He was discharged on the to [facility] for rehabilitation. Patient says over the past couple of days he has had worsening of his chronic multi-year left-sided low rib regional pain. Says this evening that he "freaked out" because of the pain and told the staff at [facility] to that he was short of breath. This prompted EMS transfer here. On arrival here, s/p duo nebs as well as morphine/Dilaudid, patient says that overall he is relatively comfortable. He says he never had any chest pain or overt shortness of breath. He denies routine use of oxygen at home or in [facility]. No noted fevers or interval feeling of illness. He just wonders why his left-sided chest discomfort is worse. Allergies Allergy/AdvReac Type Severity Reaction Status Date / Time cefuroxime Allergy Unknown rash Verified 03/29/19 16:12 Home Medications Home Medications Medication Instructions Recorded Confirmed Type amlodipine 5 mg PO BID 02/25/19 03/29/19 History aspirin 81 mg PO QAM 02/25/19 03/29/19 History atorvastatin 40 mg PO QPM 02/25/19 03/29/19 History buspirone 5 mg PO TID PRN 02/25/19 03/29/19 History cholecalciferol (vitamin D3) 1,000 unit PO QAM 02/25/19 03/29/19 History [Vitamin D3] cyanocobalamin (vitamin B-12) 1,000 mcg PO QAM 02/25/19 03/29/19 History [Vitamin B-12] gabapentin 600 mg PO HS 02/25/19 03/29/19 History mirtazapine 45 mg PO HS 02/25/19 03/29/19 History nitroglycerin 0.4 mg SUBLINGUAL DIRECTED PRN 02/25/19 03/29/19 History omeprazole 40 mg PO QAM 02/25/19 03/29/19 History primidone 50 mg PO DAILY 02/25/19 03/29/19 History ferrous sulfate 325 mg PO QAM #30 tab 03/21/19 03/29/19 Rx folic acid 1 mg PO QAM #30 tab 03/21/19 03/29/19 Rx hydrocodone-acetaminophen 1.5 tab PO Q6H PRN #18 tab 03/21/19 03/29/19 Rx ipratropium-albuterol 3 ml NEB BIDR #90 ml 03/21/19 03/29/19 Rx lidocaine 2 patch TRANSDERMAL QAM #60 ea 03/21/19 03/29/19 Rx metoprolol succinate 50 mg PO DAILY #30 tab 03/21/19 03/29/19 Rx tamsulosin 0.4 mg PO HS #30 cap 03/21/19 03/29/19 Rx thiamine HCl (vitamin B1) [Vitamin 100 mg PO QAM #30 tab 03/21/19 03/29/19 Rx B-1] Past Med/Surg History Medical History Opioid dependence (Chronic) Anemia of chronic disease (Chronic) Rib pain on right side (Chronic) GERD (gastroesophageal reflux disease) (Chronic) Anxiety (Chronic) Vitamin B12 deficiency (Chronic) Hyperlipidemia LDL goal <70 (Chronic) CAD (coronary artery disease) (Chronic) Hypertension (Chronic) Fall (Inactive) Multiple rib fractures (Inactive) Surgical History H/O heart artery stent (Chronic) Family History Other No significant family history Social History Preferred Language: Lebanese Communication Ability: Effective Loom Changeover Operator Required: No Beliefs That Will Affect Care: None Current Living Situation: Spouse Other Information That Helps Us Care for You: No Feels Safe at Home: Yes Safety Concerns: Feels Safe At This Time Smoking Status: Former smoker Do You Dip or Chew Tobacco: No Second Hand Exposure: No Tobacco Cessation Education Requested by Patient: No Hx Alcohol Use: Yes Hx Substance Use: No Review of Systems Review of Systems: Constitutional: Denies fevers, chills, focal weakness Eyes: Denies any visual loss or diplopia ENT: Denies any ear/nose/throat pain or difficulty speaking or swallowing Respiratory: Positive transient dyspnea. Denies any hemoptysis Cardiovascular: Denies any chest pain or feeling of edema Gastrointestinal: Denies any abdominal pain, nausea/vomiting/diarrhea Musculoskeletal: Denies any acute extremity pains, myalgias, or focal weakness Skin: Denies any known acute rashes or lesions Neuro: Denies any headache, acute focal weakness or numbness, or difficulties with speech or swallow. Physical Exam Physical Exam: GENERAL: Awake, alert, cachectic appearing but does not appear acutely ill, in no acute distress. HENT: Normocephalic, atraumatic. Oropharynx unremarkable. EYES: Normal conjunctiva. Sclera non-icteric. NECK: Inspection normal. Non-tender. Supple and full ROM. No nuchal rigidity. CARDIAC: +S1S2 regular tachycardia, no murmurs. RESPIRATORY: Decreased breath sounds bilaterally in the bases. On 2 L nasal cannula oxygen. Speaks easily in full sentences but does have a mild gurgling to his voice. GI: +BS, soft, non-distended. No tenderness to palpation. No rebound or guarding. EXTREMITIES: No pedal edema or calf tenderness. Moving all extremities brennon urally and easily. NEURO: No gross neuro deficits. Results & Data Vital Signs (Past 12 Hours) Vital Signs Temp Pulse Resp BP Pulse Ox 03/29/19 20:40 95 H 8 L 94 03/29/19 20:31 96 H 8 L 94 03/29/19 20:30 99 H 10 L 138/77 93 03/29/19 20:20 97 H 93 03/29/19 20:10 100 H 10 L 94 03/29/19 20:01 102 H 93 03/29/19 20:00 102 H 151/82 H 92 03/29/19 19:50 108 H 22 88 L 03/29/19 19:40 106 H 19 90 03/29/19 19:31 103 H 19 92 03/29/19 19:30 104 H 21 129/71 92 03/29/19 19:20 105 H 13 93 03/29/19 19:10 106 H 20 91 03/29/19 19:01 107 H 22 88 L 03/29/19 19:00 105 H 22 141/82 H 89 L 03/29/19 18:50 104 H 11 L 91 03/29/19 18:40 115 H 25 H 82 L 03/29/19 18:31 106 H 17 89 L 03/29/19 18:30 106 H 15 155/82 H 90 03/29/19 18:20 106 H 17 91 03/29/19 18:10 107 H 17 90 03/29/19 18:01 110 H 20 87 L 03/29/19 18:00 108 H 18 138/76 86 L 03/29/19 17:30 113 H 19 86 L 03/29/19 17:29 113 H 14 134/67 86 L 03/29/19 16:00 111 H 20 90 03/29/19 15:51 91 03/29/19 15:48 112 H 20 91 03/29/19 15:45 36.7 C 111 H 20 147/81 H 92 03/29/19 15:41 112 H 19 147/81 H 92 Laboratory Results 03/29/19 03/29/19 03/29/19 Range/Units 16:17 15:53 15:53 WBC (4.8-10.8) K/uL RBC (4.7-6.1) M/uL Hgb (14.0-18.0) g/dL POC Hgb 8.8 L (14.0-18.0) g/dl Hct (42-52) % POC Hct 26 L (42-52) % MCV (80-100) fL MCH (25-34) pg MCHC (32-36) g/dL RDW Std Deviation (36.4-46.3) fL RDW Coeff of Lucas (11.5-14.5) % Plt Count (130-400) K/uL MPV (7.4-10.4) fL Immature Gran % (Auto) % Neut % (Auto) % Lymph % (Auto) % Benton % (Auto) % Eos % (Auto) % Baso % (Auto) % Immature Gran # (Auto) (0.00-0.02) K/uL Neut # (Auto) (1.4-6.5) K/uL Lymph # (Auto) (1.2-3.4) K/uL Benton # (Auto) (0.11-0.59) K/uL Eos # (Auto) (0-0.5) K/uL Baso # (Auto) (0-0.2) K/uL PT 11.3 (9.0-12.0) Seconds INR 1.1 (0.9-1.1) APTT 29.3 (21.0-31.0) Seconds PTT Ratio 1.1 POC Sodium 139 (135-144) mEq/L Sodium 139 (136-145) mmol/L POC Potassium 5.1 H (3.3-5.0) mEq/L Potassium 5.0 (3.5-5.1) mmol/L POC Chloride 103 (101-112) mEq/L Chloride 106 (98-107) mmol/L Carbon Dioxide 27 (21-32) mmol/L POC Total CO2 24 (24-31) mEq/l Anion Gap 7.0 (3-11) POC Anion Gap 18.0 (16-25) mmol/L POC BUN 32 H (7-18) mg/dl BUN 34 H (7-18) mg/dl Creatinine 1.72 H (0.6-1.4) mg/dl POC Creatinine 1.8 H (0.6-1.3) mg/dl Est Cr Clr Drug Dosing 32.4 ml/min Est GFR ( Amer) 43.8 Est GFR (Non-Af Amer) 37.8 BUN/Creatinine Ratio 19.9 (10-20) Glucose 112 H (70-99) mg/dl POC Glucose (other) 119 H (70-99) mg/dl Calcium 8.7 (8.5-10.1) mg/dl POC Ioniz Calcium Gerald 1.10 L (1.12-1.32) mmol/l Magnesium 1.2 L (1.8-2.4) mg/dl Total Bilirubin 0.2 (0.2-1) mg/dl AST 13 L (15-37) U/L ALT 17 (12-78) U/L Alkaline Phosphatase 65 (45-117) U/L Troponin I < 0.015 (0-0.045) ng/ml Total Protein 7.5 (6.4-8.2) gm/dl Albumin 2.0 L (3.4-5.0) gm/dl Globulin 5.5 H (2.5-4.0) gm/dl Albumin/Globulin Ratio 0.4 L (0.9-2) Lipase 108 (73-393) U/L 03/29/19 Range/Units 15:53 WBC 15.62 H (4.8-10.8) K/uL RBC 2.88 L (4.7-6.1) M/uL Hgb 8.8 L (14.0-18.0) g/dL POC Hgb (14.0-18.0) g/dl Hct 27.5 L (42-52) % POC Hct (42-52) % MCV 95.5 (80-100) fL MCH 30.6 (25-34) pg MCHC 32.0 (32-36) g/dL RDW Std Deviation 52.4 H (36.4-46.3) fL RDW Coeff of Lucas 15.0 H (11.5-14.5) % Plt Count 597 H (130-400) K/uL MPV 8.9 (7.4-10.4) fL Immature Gran % (Auto) 0.3 % Neut % (Auto) 79.8 % Lymph % (Auto) 9.8 % Benton % (Auto) 6.4 % Eos % (Auto) 3.3 % Baso % (Auto) 0.4 % Immature Gran # (Auto) 0.04 H (0.00-0.02) K/uL Neut # (Auto) 12.47 H (1.4-6.5) K/uL Lymph # (Auto) 1.53 (1.2-3.4) K/uL Benton # (Auto) 1.00 H (0.11-0.59) K/uL Eos # (Auto) 0.51 H (0-0.5) K/uL Baso # (Auto) 0.07 (0-0.2) K/uL PT (9.0-12.0) Seconds INR (0.9-1.1) APTT (21.0-31.0) Seconds PTT Ratio POC Sodium (135-144) mEq/L Sodium (136-145) mmol/L POC Potassium (3.3-5.0) mEq/L Potassium (3.5-5.1) mmol/L POC Chloride (101-112) mEq/L Chloride (98-107) mmol/L Carbon Dioxide (21-32) mmol/L POC Total CO2 (24-31) mEq/l Anion Gap (3-11) POC Anion Gap (16-25) mmol/L POC BUN (7-18) mg/dl BUN (7-18) mg/dl Creatinine (0.6-1.4) mg/dl POC Creatinine (0.6-1.3) mg/dl Est Cr Clr Drug Dosing ml/min Est GFR ( Amer) Est GFR (Non-Af Amer) BUN/Creatinine Ratio (10-20) Glucose (70-99) mg/dl POC Glucose (other) (70-99) mg/dl Calcium (8.5-10.1) mg/dl POC Ioniz Calcium Gerald (1.12-1.32) mmol/l Magnesium (1.8-2.4) mg/dl Total Bilirubin (0.2-1) mg/dl AST (15-37) U/L ALT (12-78) U/L Alkaline Phosphatase (45-117) U/L Troponin I (0-0.045) ng/ml Total Protein (6.4-8.2) gm/dl Albumin (3.4-5.0) gm/dl Globulin (2.5-4.0) gm/dl Albumin/Globulin Ratio (0.9-2) Lipase (73-393) U/L Medications Administered Ioversol (Optiray 320 125ml) 119 ml IV ONCE PRN PRN Reason: Interaction Checking Stop: 04/02/19 16:36 Last Admin: 03/29/19 16:38 Dose: 119 ml Documented by: [id number] Discontinued Medications Hydromorphone HCl (Dilaudid) 1 mg IV NOW STA Stop: 03/29/19 16:26 Last Admin: 03/29/19 16:34 Dose: 1 mg Documented by: [id number] Sodium Chloride (Nss) 500 mls @ 999 mls/hr IV .Q31M SANDRA Stop: 03/29/19 16:15 Last Infusion: 03/29/19 16:34 Dose: 0 mls/hr Documented by: [id number] Admin: 03/29/19 15:59 Dose: 999 mls/hr Documented by: [id number] Magnesium Sulfate/Dextrose (Magnesium Sulfate / D5w) 1 gm in 100 mls @ 100 mls/hr IV Q1H SANDRA Stop: 03/29/19 18:29 Last Infusion: 03/29/19 19:59 Dose: 0 mls/hr Documented by: [id number] Admin: 03/29/19 18:04 Dose: 100 mls/hr Documented by: [id number] Infusion: 03/29/19 18:03 Dose: 0 mls/hr Documented by: [id number] Admin: 03/29/19 17:00 Dose: 100 mls/hr Documented by: [id number] Morphine Sulfate (Morphine Sulfate) 4 mg IV NOW STA Stop: 03/29/19 15:42 Last Admin: 03/29/19 15:59 Dose: 4 mg Documented by: [id number] Ondansetron HCl (Zofran) 4 mg IV NOW STA Stop: 03/29/19 15:42 Last Admin: 03/29/19 15:59 Dose: 4 mg Documented by: [id number] Code Status & VTE Plan Code Status Full code VTE Prophylaxis Plan VTE Prophylaxis will be ordered: Yes Supervising Physician Co-Signing Physician Notes Attending addendum: I have physically seen this patient, have supervised the medical residents activities, and agree with the H&P unless as otherwise noted. Assessment and Plan: Multifocal pneumonia/worsening left pleural effusion/improving right pleural effusion- Status post extended hospitalization from 03/04-03/25 pneumonia and pleural effusions where right pleural effusion was tapped. Vancomycin IV and Zosyn IV. Duonebs every 4 hours while awake and every 2 hours when necessary. Sputum Gram stain and culture. Consult thoracic surgery again for consideration of thoracentesis. Hypomagnesemia- Magnesium 1.2 upon arrival. Replace both orally and IV. Recheck laboratories in a.m. Remainder of orders notations as noted. PG Care Time/CCT Total # of Minutes Spent Total Time Spent with Patient: Total time spent is greater than 50% in coordination of care (as documented) at patient's floor/unit and/or counseling patient: Resident Activity Tracking Resident Involvement: Resident Care Provided Care Provided: Adult [facility] Medicine (1) Fracture, ribs Encounter type: subsequent encounter Fracture healing: with routine healing Fracture type: closed Laterality: right Rib fracture type: multiple ribs Qualified Code(s): S22.41XD - Multiple fractures of ribs, right side, subsequent encounter for fracture with routine healing
[2019-03-29] MEDS ORDERED: PIPERACILL/TAZOBAC CONSULT ACTIVE PRN (21:48)
[2019-03-29] MEDS ORDERED: NITROGLYCERIN SL 0.4 MG/TAB TAB SL PRN (21:48)
[2019-03-29] MEDS ORDERED: VANCOMYCIN HCL 1,250 MG in SODIUM CHLORIDE 0.9% 250 ML IV ONE (21:48)
[2019-03-29] MEDS ORDERED: ONDANSETRON INJ 2 MG/ML 2 ML VIAL IV PRN (21:48)
[2019-03-29] MEDS ORDERED: VANCOMYCIN CONSULT ACTIVE PRN (21:48)
[2019-03-29] MEDS ORDERED: PIPERACILLIN/TAZOBACTAM 3.375 GM in DEXTROSE 5% 100 ML IV STA (22:19)
[2019-03-29] MEDS: HYDROmorphone INJ 0.5 MG/0.5 ML SYR IV PRN (23:11)
[2019-03-29] MEDS: GABAPENTIN 600 MG TAB PO SCH (23:15)
[2019-03-29] MEDS: TAMSULOSIN HCL 0.4 MG CAP PO SCH (23:16)
[2019-03-29] MEDS: MIRTAZAPINE SOLTAB 15 MG PO SCH (23:16)
[2019-03-29] MEDS: AMLODIPINE BESYLATE 5 MG TAB PO SCH (23:17)
[2019-03-29] MEDS: ATORVASTATIN 40 MG TAB PO SCH (23:18)
[2019-03-29] MEDS ORDERED: LORazepam 0.5 MG/1 ML VIAL IV STA (23:38)
[2019-03-30] MEDS: ACETAMINOPHEN 325 MG TAB PO PRN ×3 (00:27→22:19)
[2019-03-30] MEDS: PIPERACILLIN/TAZOBACTAM 3.375 GM in DEXTROSE 5% 100 ML IV SCH ×3 (04:03→21:02)
[2019-03-30 05:52] LABS: Basophils # (auto) 0.06 K/uL (0-0.2); Basophils % (auto) 0.5 %; Eosinophils # (auto) 0.27 K/uL (0-0.5); Eosinophils % (auto) 2.3 %; Hematocrit (blood only) 24.5 % (42-52); Hemoglobin 7.8 g/dL (14.0-18.0); Immature Granulocytes # (auto) 0.03 K/uL (0.00-0.02); Immature Granulocytes % (auto) 0.3 %; Lymphocytes # (auto) 1.74 K/uL (1.2-3.4); Lymphocytes % (auto) 15.1 %; Mean Corpuscular Hgb Conc 31.8 g/dL (32-36); Mean Corpuscular Volume 95.7 fL (80-100); Mean Platelet Volume 9.1 fL (7.4-10.4); Monocytes # (auto) 0.92 K/uL (0.11-0.59); Neutrophils % (auto) 73.8 %; Platelet Count 498 K/uL (130-400); RDW Coefficient of Variation 15.1 % (11.5-14.5); RDW Standard Deviation 52.9 fL (36.4-46.3); Red Blood Count 2.56 M/uL (4.7-6.1); White Blood Count 11.52 K/uL (4.8-10.8)
[2019-03-30 06:31] LABS: BUN Creatinine Ratio 18.1 (10-20); Calcium 8.5 mg/dl (8.5-10.1); Creatinine Clr Calc Pharmacy 32.5 ml/min; Est GFR (African American) 44.1; Magnesium 1.7 mg/dl (1.8-2.4); Potassium 4.9 mmol/L (3.5-5.1)
[2019-03-30 06:35] LABS: Polychromasia 1+
[2019-03-30] MEDS: ALBUT/IPRATROP 3MG/0.5MG NEB 3 ML VIAL NEB SCH ×2 (07:04→19:18)
[2019-03-30] MEDS: AMLODIPINE BESYLATE 5 MG TAB PO SCH ×2 (08:55→21:03)
[2019-03-30] MEDS: FERROUS SULFATE 325 MG TAB PO SCH (08:55)
[2019-03-30] MEDS: PRIMIDONE 50 MG TAB PO SCH (08:55)
[2019-03-30] MEDS: PANTOprazole 40 MG TAB PO SCH (08:55)
[2019-03-30] MEDS: CYANOCOBALAMIN 500 MCG TABLET (VITAMIN B-12) PO SCH (08:55)
[2019-03-30] MEDS: FOLIC ACID 1 MG TAB PO SCH (08:55)
[2019-03-30] MEDS: METOPROLOL SUCC 50MG EXT REL TAB PO SCH (08:55)
[2019-03-30] MEDS: CHOLECALCIFEROL 1,000 UNITS TAB PO SCH (08:55)
[2019-03-30] MEDS: THIAMINE HCL 100 MG TAB PO SCH (08:55)
[2019-03-30] MEDS: ASPIRIN 81 MG ECTAB PO SCH (08:55)
[2019-03-30] MEDS: HYDROmorphone INJ 0.5 MG/0.5 ML SYR IV PRN ×4 (09:00→21:03)
[2019-03-30] MEDS: LIDOCAINE 5% 1 PATCH TD SCH (09:00)
--- NOTE | 2019-03-30 09:24 | Pharmacy Report ---
Pharmacy Abx Initial Consult - Date of Service March 30, 2019 - Pharmacy Dosing Scope Date of Consult: 03/29/19 Consultation requested by: Dr. Mayes Pharmacy is consulted to initiate Vancomycin and Zosyn IV dosing therapy, order appropriate labs and adjust drug dose/frequency. - Subjective The patient is a 78 year old M admitted on 03/29/19 20:54. - Objective Height: 5 ft 6 in Weight: 62.6 kg Vital Signs (Past 12hrs): Vital Signs Temp Pulse Pulse Pulse Resp BP BP 03/30/19 07:05 79 16 03/30/19 06:54 37.2 C 84 20 130/53 L 03/30/19 03:30 36.7 C 77 18 127/65 03/29/19 23:15 37.7 C H 95 H 18 158/76 H 03/29/19 21:40 37.3 C 104 H 26 H 160/88 H 03/29/19 21:27 99 H 20 151/87 H Pulse Ox 03/30/19 07:05 93 03/30/19 06:54 90 03/30/19 03:30 94 03/29/19 23:15 93 03/29/19 21:40 93 03/29/19 21:27 92 Lab Results (24hrs): Laboratory Tests (24 Hours) 03/30/19 03/30/19 03/29/19 05:19 05:19 15:53 WBC 11.52 H Neut # (Auto) 8.50 H Creatinine 1.71 H 1.72 H Est Cr Clr Drug Dosing 32.5 32.4 03/29/19 15:53 WBC 15.62 H Neut # (Auto) 12.47 H Creatinine Est Cr Clr Drug Dosing Micro Results: 03/29/19 22:14 Aerobic Blood Culture - Pending Blood Anaerobic Blood Culture - Pending 03/29/19 22:22 Aerobic Blood Culture - Pending Blood Anaerobic Blood Culture - Pending - Risk Factors for Resistance * Resident in a group home or extended-care facility - admitted from [facility] * Hospitalization for 48 hours or more within the past 90 days - recent [facility] admission 03/04-03/21/19 * Antimicrobial use within the last 90 days - Vancomycin, Zosyn, aztreonam, do xycycline - Assessment & Plan Assessment 78 year old M on empiric IV Vancomycin and Zosyn for pneumonia. He was recently discharged from [facility] following admission 03/04-03/21 for acute respiratory failure/pneumonia. Now readmitted from [facility]. Renal function appears to be at baseline. Plan Vancomycin IV * Estimated PK Parameters: Jose Juan 0.031 hr-1, t1/2 22.3 hr * Loading dose: 1250 mg (~20 mg/kg) * Maintenance dose: 750 mg IV (~12 mg/kg) every 24 hours -- maintenance dose lo wer than usual 15mg/kg due to dosing around estimated half-life * Goal trough level for pneumonia : 15 to 20 mcg/mL * Trough level ordered for 03/31/19 @ 1930 (prior to 2nd dose and therefore not reflective of steady state, but want to assess dosing regimen earlier due to renal impairment and age) Piperacillin/tazobactam * 3.375 g bolus administered over 30 minutes, then 3.375 g IV extended infusion every 8 hours for CrCl greater than 20 mL/min Pharmacy will continue to follow and will adjust dose/frequency as necessary. Thank you.
--- NOTE | 2019-03-30 11:44 | Family Medicine Progress Note ---
Date of Service March 30, 2019 Assessment & Plan (1) Shortness of breath: 78-year-old male was admitted on 29 March 2019 for shortness of breath. Of note he was discharged on to [facility] for right-sided rib fractures, acute respiratory failure with pneumonia, and KEAGAN due to decreased oral intake. Shortness of breath: hypoxia, bilateral pleural effusions, recent PNA: Patient actually notes more acute on chronic left-sided rib regional pain than SOB. S/p right thoracentesis & one liter removed on . No noted symptomatic improvement with duo nebs or nitroglycerin via EMS. On arrival, afebrile, mildly tachycardic, RR 20, 87% on 2 L nasal cannula. WBC 15. CTA chest notes bilateral pleural effusions and opacities (amongst others, see full report). Concern for developing abscess. In ED, treated with Zofran, 500 mL NS IVF, morphine and dilaudid. - Patient had fever to 37.7 overnight, white count elevated to 11 today of note platelets elevated to 448 satting 95% on 4 L - F/U blood cx NGTD - Cont vancomycin and Zosyn 3.375 gm q6h (renal-dosed). narrow pending cx results - Re-consult thoracic surgery. - Trend daily CBC - Follow-up pro-Adis and CRP Hyperkalemia: Admit K 5.1. EKG sinus tachy 113 with normal shaped T waves but inversions in V2 & V3. Monitoring. - Resolved today potassium 4.9, no longer tachycardia - Trend daily BMP Hypomagnesemia: Admit Mg 1.2. Replaced in ED. - Today magnesium 1.7 repleted 1 g IV mag sulfate T wave inversions: new T wave inversions evident in V2 and V3 from previous EKG 1 month ago. Negative troponins x2 this is not likely the source of the patient's chest pain. -Repeat echo -Consider cards consult based on findings Anemia of chronic disease: Transfused total 3 units PRBC on admission earlier in March. This admit Hb 8.8. Continue home ferrous sulfate. -Today hemoglobin 7.8, patient asymptomatic -Type and cross holding unit of packed red blood cells -Give RBCs for symptomatic anemia or hemoglobin less than 7 -Recheck H&H this afternoon 6PM Ongoing medical issues: - Hypertension, hyperlipidemia, CAD s/p prior stent: Continue home aspirin, amlodipine, atorvastatin, metoprolol. - Vitamin B12 deficiency: Continue home cyanocobalamin. - GERD: Continue home omeprazole - Opioid dependence: Continue home gabapentin, mirtazapine, [place], lidocaine patch. - Multiple rib fractures: S/p fall around 23May. - Anxiety: Continue home buspirone. - Urinary retention: On home tamsulosin. - Chronic renal insufficiency: Admit Cr 1.8, similar to baseline. - Right hand tremor: On home primidone. Code status: Full code. Diet: N.p.o. at midnight. DVT prophy: Chemical prophylaxis held in case of thoracentesis tomorrow. SCDs. PT/OT: Ordered. FENa:NPO pending seen by thoracic surgery than reg diet Code Status:Full DVT PPX:SCD Dispo:Med/Surg Tele (2) Hypoxia: (3) Pleural effusion: (4) Hypomagnesemia: (5) Hypertension: (6) Hyperkalemia: (7) Hyperlipidemia LDL goal <70: (8) CAD (coronary artery disease): (9) Anemia of chronic disease: (10) Vitamin B12 deficiency: (11) GERD (gastroesophageal reflux disease): (12) Opioid dependence: (13) Fracture, ribs: (14) Chronic pain: (15) Anxiety: (16) Urinary retention: (17) Chronic renal insufficiency: (18) Tremor of right hand: Supervising Physician Co-Signing Physician Notes I personally examined the patient and verified all braga points of history and exam, discussed case, and agree with decision making with Dr Olivia. Left-sided chest pain persists. He notes is chronic for years, but the last 3 days or so it has been far worse. CT reviewed with patient. Plan for thoracentesis tomorrow, patient appreciates this. No other current complaints. Discussed EKG findings with his as well. She notes his stent was in his right coronary, but he also had a cath complication of dissection of his LAD. Vitals noted, in general he is awake and alert pleasant no distress. HEENT normocephalic atraumatic mucous members moist. Breathing unlabored no accessory muscle use good effort. He is somewhat tender to palpate over his left rib cage, and the ribs show diminished range of motion. CT reviewed both report and actual films and compared to the one from about 2 weeks ago. Chest pain/shortness of breathmost likely relates to his very large left-sided effusion, for thoracentesis tomorrow. Continue antibiotics, check CRP and procalcitonin as the main question would be whether or not the infiltrative findings are truly still active or simply resolving from the previously treated pneumonia. Chronic left chest painprobably relates to intercostal spasticity, outpatient management. EKG changesflipped T's in V1, V2 and V3new from a couple weeks ago. Troponins are negative, will check an echocardiogram. This is likely a mild degree of demand related to his current physiologic stress superimposed on what is likely LAD disease from the prior dissection 25 years ago. If echo shows any anterior wall motion abnormalities we will consult cardiology, if not, given negative troponin and unchanged echo, we would then do stress testing under physiologic conditions once he is able to do so. DVT prophylaxismechanical for now, likely add pharmacologic after thoracentesis tomorrow. Subjective Patient sleeping in bed this morning in no acute distress when I arrived, reported doing well overnight. Patient is tolerating his diet, slept well, voiding, stooling appropriately. Patient stated his pain is improved from yesterday still reporting shortness of breath and requiring 4 L of oxygen to maintain sats. No acute concerns at present, answered all questions. Physical Exam Physical Exam: GENERAL: Awake, alert, cachectic appearing but does not appear acutely ill, in no acute distress. HENT: Normocephalic, atraumatic. Oropharynx unremarkable. EYES: Normal conjunctiva. Sclera non-icteric. NECK: Inspection normal. Non-tender. Supple and full ROM. No nuchal rigidity. Negative JVD, trachea midline CARDIAC: Regular rate and rhythm I did not appreciate any murmurs rubs or gallops, normal S1, normal S2 negative pedal edema negative calf tenderness RESPIRATORY: Decreased breath sounds bilaterally in the bases. On 4 L nasal cannula oxygen. Speaks easily in full sentences but does have a mild gurgling to his voice. GI: +BS, soft, non-distended. Tenderness to palpation in the left upper quadrant EXTREMITIES: No pedal edema or calf tenderness. Moving all extremities naturally and easily. NEURO: No gross neuro deficits. Results & Data Vital Signs (Past 12 Hours) Vital Signs Temp Pulse Pulse Resp BP BP Pulse Ox 03/30/19 11:02 37.2 C 81 18 139/70 95 03/30/19 07:05 79 16 93 03/30/19 06:54 37.2 C 84 20 130/53 L 90 03/30/19 03:30 36.7 C 77 18 127/65 94 Laboratory Results 03/30/19 03/30/19 03/30/19 Range/Units 09:18 05:19 05:19 WBC 11.52 H (4.8-10.8) K/uL RBC 2.56 L (4.7-6.1) M/uL Hgb 7.8 L (14.0-18.0) g/dL POC Hgb (14.0-18.0) g/dl Hct 24.5 L (42-52) % POC Hct (42-52) % MCV 95.7 (80-100) fL MCH 30.5 (25-34) pg MCHC 31.8 L (32-36) g/dL RDW Std Deviation 52.9 H (36.4-46.3) fL RDW Coeff of Lucas 15.1 H (11.5-14.5) % Plt Count 498 H (130-400) K/uL MPV 9.1 (7.4-10.4) fL Immature Gran % (Auto) 0.3 % Neut % (Auto) 73.8 % Lymph % (Auto) 15.1 % [place] % (Auto) 8.0 % Eos % (Auto) 2.3 % Baso % (Auto) 0.5 % Immature Gran # (Auto) 0.03 H (0.00-0.02) K/uL Neut # (Auto) 8.50 H (1.4-6.5) K/uL Lymph # (Auto) 1.74 (1.2-3.4) K/uL [place] # (Auto) 0.92 H (0.11-0.59) K/uL Eos # (Auto) 0.27 (0-0.5) K/uL Baso # (Auto) 0.06 (0-0.2) K/uL Polychromasia 1+ PT (9.0-12.0) Seconds INR (0.9-1.1) APTT (21.0-31.0) Seconds PTT Ratio POC Sodium (135-144) mEq/L Sodium 139 (136-145) mmol/L POC Potassium (3.3-5.0) mEq/L Potassium 4.9 (3.5-5.1) mmol/L POC Chloride (101-112) mEq/L Chloride 106 (98-107) mmol/L Carbon Dioxide 28 (21-32) mmol/L POC Total CO2 (24-31) mEq/l Anion Gap 4.0 (3-11) POC Anion Gap (16-25) mmol/L POC BUN (7-18) mg/dl BUN 31 H (7-18) mg/dl Creatinine 1.71 H (0.6-1.4) mg/dl POC Creatinine (0.6-1.3) mg/dl Est Cr Clr Drug Dosing 32.5 ml/min Est GFR ( Amer) 44.1 Est GFR (Non-Af Amer) 38.0 BUN/Creatinine Ratio 18.1 (10-20) Glucose 95 (70-99) mg/dl POC Glucose (other) (70-99) mg/dl Calcium 8.5 (8.5-10.1) mg/dl POC Ioniz Calcium Gerald (1.12-1.32) mmol/l Magnesium 1.7 L (1.8-2.4) mg/dl Total Bilirubin (0.2-1) mg/dl AST (15-37) U/L ALT (12-78) U/L Alkaline Phosphatase (45-117) U/L Troponin I < 0.015 (0-0.045) ng/ml Total Protein (6.4-8.2) gm/dl Albumin (3.4-5.0) gm/dl Globulin (2.5-4.0) gm/dl Albumin/Globulin Ratio (0.9-2) Lipase (73-393) U/L Nasal Screen MRSA (PCR) (Negative) 03/29/19 03/29/19 03/29/19 Range/Units 22:15 16:17 15:53 WBC (4.8-10.8) K/uL RBC (4.7-6.1) M/uL Hgb (14.0-18.0) g/dL POC Hgb 8.8 L (14.0-18.0) g/dl Hct (42-52) % POC Hct 26 L (42-52) % MCV (80-100) fL MCH (25-34) pg MCHC (32-36) g/dL RDW Std Deviation (36.4-46.3) fL RDW Coeff of Lucas (11.5-14.5) % Plt Count (130-400) K/uL MPV (7.4-10.4) fL Immature Gran % (Auto) % Neut % (Auto) % Lymph % (Auto) % [place] % (Auto) % Eos % (Auto) % Baso % (Auto) % Immature Gran # (Auto) (0.00-0.02) K/uL Neut # (Auto) (1.4-6.5) K/uL Lymph # (Auto) (1.2-3.4) K/uL [place] # (Auto) (0.11-0.59) K/uL Eos # (Auto) (0-0.5) K/uL Baso # (Auto) (0-0.2) K/uL Polychromasia PT (9.0-12.0) Seconds INR (0.9-1.1) APTT (21.0-31.0) Seconds PTT Ratio POC Sodium 139 (135-144) mEq/L Sodium 139 (136-145) mmol/L POC Potassium 5.1 H (3.3-5.0) mEq/L Potassium 5.0 (3.5-5.1) mmol/L POC Chloride 103 (101-112) mEq/L Chloride 106 (98-107) mmol/L Carbon Dioxide 27 (21-32) mmol/L POC Total CO2 24 (24-31) mEq/l Anion Gap 7.0 (3-11) POC Anion Gap 18.0 (16-25) mmol/L POC BUN 32 H (7-18) mg/dl BUN 34 H (7-18) mg/dl Creatinine 1.72 H (0.6-1.4) mg/dl POC Creatinine 1.8 H (0.6-1.3) mg/dl Est Cr Clr Drug Dosing 32.4 ml/min Est GFR ( Amer) 43.8 Est GFR (Non-Af Amer) 37.8 BUN/Creatinine Ratio 19.9 (10-20) Glucose 112 H (70-99) mg/dl POC Glucose (other) 119 H (70-99) mg/dl Calcium 8.7 (8.5-10.1) mg/dl POC Ioniz Calcium Gerald 1.10 L (1.12-1.32) mmol/l Magnesium 1.2 L (1.8-2.4) mg/dl Total Bilirubin 0.2 (0.2-1) mg/dl AST 13 L (15-37) U/L ALT 17 (12-78) U/L Alkaline Phosphatase 65 (45-117) U/L Troponin I < 0.015 (0-0.045) ng/ml Total Protein 7.5 (6.4-8.2) gm/dl Albumin 2.0 L (3.4-5.0) gm/dl Globulin 5.5 H (2.5-4.0) gm/dl Albumin/Globulin Ratio 0.4 L (0.9-2) Lipase 108 (73-393) U/L Nasal Screen MRSA (PCR) Positive A (Negative) 03/29/19 03/29/19 Range/Units 15:53 15:53 WBC 15.62 H (4.8-10.8) K/uL RBC 2.88 L (4.7-6.1) M/uL Hgb 8.8 L (14.0-18.0) g/dL POC Hgb (14.0-18.0) g/dl Hct 27.5 L (42-52) % POC Hct (42-52) % MCV 95.5 (80-100) fL MCH 30.6 (25-34) pg MCHC 32.0 (32-36) g/dL RDW Std Deviation 52.4 H (36.4-46.3) fL RDW Coeff of Lucas 15.0 H (11.5-14.5) % Plt Count 597 H (130-400) K/uL MPV 8.9 (7.4-10.4) fL Immature Gran % (Auto) 0.3 % Neut % (Auto) 79.8 % Lymph % (Auto) 9.8 % [place] % (Auto) 6.4 % Eos % (Auto) 3.3 % Baso % (Auto) 0.4 % Immature Gran # (Auto) 0.04 H (0.00-0.02) K/uL Neut # (Auto) 12.47 H (1.4-6.5) K/uL Lymph # (Auto) 1.53 (1.2-3.4) K/uL [place] # (Auto) 1.00 H (0.11-0.59) K/uL Eos # (Auto) 0.51 H (0-0.5) K/uL Baso # (Auto) 0.07 (0-0.2) K/uL Polychromasia PT 11.3 (9.0-12.0) Seconds INR 1.1 (0.9-1.1) APTT 29.3 (21.0-31.0) Seconds PTT Ratio 1.1 POC Sodium (135-144) mEq/L Sodium (136-145) mmol/L POC Potassium (3.3-5.0) mEq/L Potassium (3.5-5.1) mmol/L POC Chloride (101-112) mEq/L Chloride (98-107) mmol/L Carbon Dioxide (21-32) mmol/L POC Total CO2 (24-31) mEq/l Anion Gap (3-11) POC Anion Gap (16-25) mmol/L POC BUN (7-18) mg/dl BUN (7-18) mg/dl Creatinine (0.6-1.4) mg/dl POC Creatinine (0.6-1.3) mg/dl Est Cr Clr Drug Dosing ml/min Est GFR ( Amer) Est GFR (Non-Af Amer) BUN/Creatinine Ratio (10-20) Glucose (70-99) mg/dl POC Glucose (other) (70-99) mg/dl Calcium (8.5-10.1) mg/dl POC Ioniz Calcium Gerald (1.12-1.32) mmol/l Magnesium (1.8-2.4) mg/dl Total Bilirubin (0.2-1) mg/dl AST (15-37) U/L ALT (12-78) U/L Alkaline Phosphatase (45-117) U/L Troponin I (0-0.045) ng/ml Total Protein (6.4-8.2) gm/dl Albumin (3.4-5.0) gm/dl Globulin (2.5-4.0) gm/dl Albumin/Globulin Ratio (0.9-2) Lipase (73-393) U/L Nasal Screen MRSA (PCR) (Negative) Medications Administered Current Inpatient Medications Acetaminophen (Tylenol) 650 mg PO Q4H PRN PRN Reason: Pain or Fever Stop: 04/28/19 21:47 Last Admin: 03/30/19 00:27 Dose: 650 mg Documented by: Albuterol (Duoneb) 3 ml NEB BIDR [facility] Stop: 04/29/19 07:59 Last Admin: 03/30/19 07:04 Dose: 3 ml Documented by: Amlodipine Besylate (Norvasc) 5 mg PO BID [facility] Stop: 04/28/19 21:47 Last Admin: 03/30/19 08:55 Dose: 5 mg Documented by: Aspirin (Ecotrin Ectab) 81 mg PO QAM [facility] Stop: 04/29/19 08:59 Last Admin: 03/30/19 08:55 Dose: 81 mg Documented by: Atorvastatin Calcium (Lipitor) 40 mg PO QPM [facility] Stop: 04/28/19 21:47 Last Admin: 03/29/19 23:18 Dose: 40 mg Documented by: Buspirone HCl (Buspar) 5 mg PO TID PRN PRN Reason: Anxiety Stop: 04/28/19 21:47 Last Admin: 03/29/19 23:27 Dose: 5 mg Documented by: Cyanocobalamin (Vitamin B-12) 1,000 mcg PO QAM [facility] Stop: 04/29/19 08:59 Last Admin: 03/30/19 08:55 Dose: 1,000 mcg Documented by: [facility] S[facility] ([facility]ol) [facility]: 04/29/19 08:59 Last Admin: 03/30/19 08:55 Dose: 325 mg Documented by: Folic Acid (Folvite) 1 mg PO QAM [facility] Stop: 04/29/19 08:59 Last Admin: 03/30/19 08:55 Dose: 1 mg Documented by: Gabapentin (Neurontin) 600 mg PO HS [facility] Stop: 04/28/19 21:47 Last Admin: 03/29/19 23:15 Dose: 600 mg Documented by: Hydromorphone HCl (Dilaudid) 0.5 mg IV Q4H PRN PRN Reason: Pain Stop: 04/12/19 21:47 Last Admin: 03/30/19 09:00 Dose: 0.5 mg Documented by: Piperacillin Sod/Tazobactam (Sod 3.375 gm/ Dextrose) 115 mls @ 28.75 mls/hr IV Q8H [facility]; Protocol Stop: 04/05/19 03:59 Last Infusion: 03/30/19 08:34 Dose: Infused Documented by: Vancomycin HCl 750 mg/ Sodium (Chloride) 265 mls @ 125 mls/hr IV Q24H [facility] Stop: 04/05/19 19:59 Lidocaine (Lidoderm 5%) 2 patch TD QAM [facility] Stop: 04/29/19 08:59 Last Admin: 03/30/19 09:00 Dose: Not Given Documented by: Metoprolol Succinate (Toprol Xl) 50 mg PO DAILY [facility] Stop: 04/29/19 08:59 Last Admin: 03/30/19 08:55 Dose: 50 mg Documented by: Mirtazapine (Remeron Solutab) 45 mg PO [facility] Stop: 04/28/19 21:47 Last Admin: 03/29/19 23:16 Dose: 45 mg Documented by: Miscellaneous (Remove Lidoderm Patch) 1 ea N/A DAILY@2100 [facility] Stop: 04/28/19 21:47 Last Admin: 03/29/19 23:17 Dose: 1 ea Documented by: Miscellaneous Information (Consult) 1 ea N/A UD PRN PRN Reason: Consult Stop: 04/28/19 21:47 Miscellaneous Information (Consult) 1 ea N/A UD PRN PRN Reason: Consult Stop: 04/28/19 21:47 Nitroglycerin (Nitrostat) 0.4 mg SL UD PRN PRN Reason: Chest Pain Stop: 04/28/19 21:47 Ondansetron HCl (Zofran) 4 mg IV Q4H PRN PRN Reason: Nausea Stop: 04/28/19 21:47 Pantoprazole Sodium (Protonix) 40 mg PO QAM [facility] Stop: 04/29/19 08:59 Last Admin: 03/30/19 08:55 Dose: 40 mg Documented by: Primidone (Primidone) 50 mg PO DAILY [facility] Stop: 04/29/19 08:59 Last Admin: 03/30/19 08:55 Dose: 50 mg Documented by: Tamsulosin HCl (Flomax) 0.4 mg PO [facility] Stop: 04/28/19 21:47 Last Admin: 03/29/19 23:16 Dose: 0.4 mg Documented by: Thiamine HCl (Vitamin B-1) 100 mg PO QAM [facility] Stop: 04/29/19 08:59 Last Admin: 03/30/19 08:55 Dose: 100 mg Documented by: Vitamin D (Vitamin D3) 1,000 units PO QAM [facility] Stop: 04/29/19 08:59 Last Admin: 03/30/19 08:55 Dose: 1,000 units Documented by: Resident Activity Tracking Resident Involvement: Resident Care Provided Care Provided: Adult Hospital Medicine (1) Fracture, ribs Encounter type: subsequent encounter Fracture healing: with routine healing Fracture type: closed Laterality: right Rib fracture type: multiple ribs Qualified Code(s): S22.41XD - Multiple fractures of ribs, right side, subsequent encounter for fracture with routine healing
[2019-03-30] MEDS ORDERED: MAGNESIUM SULFATE / D5W 1 GM/100 ML BAG IV ONE (11:54)
--- NOTE | 2019-03-30 13:45 | Consultation Report ---
DATE OF CONSULTATION: 03/30/2019 REASON FOR CONSULTATION: Pleural effusions. HISTORY OF PRESENT ILLNESS: I know Mr. Hilton. He is a 78-year-old who actually appears much older. I just saw him 12 days ago in consultation. He had an infiltrate, which was felt to be a pneumonia or a pulmonary contusion in his right chest. He also was quite ill. He had renal insufficiency with acute kidney injury about 10 days ago. At that time, we did a thoracentesis and the LDH was 171, which was borderline for an exudate. His cytology did not show any evidence of malignant disease. Interestingly enough, he grew out 3 different organisms from his pleural fluid from 03/18. I believe this was a contaminant. There is a coag-negative staph, which was not lugdunensis; also a Staph aureus and a Cutibacterium acnes. We sent fluid off, and as the glucose was 118 and the pH was normal at that time, I do not believe we are dealing with an infection. The patient presented back in with left-sided chest pain now and he underwent another CT scan. His CT scan is remarkably better on the right side. The patient had pneumonia, which is greatly improved. He still has some consolidation of a portion of the right lower lobe, but he has much less fluid and quite frankly it is improved. He now has a large homogenous effusion with some fluid in the fissure on the left. This is much worse than it was 10 days ago. He is only on 3 liters with 93% saturations. He is sleeping comfortably when I came in to see him. The patient was admitted from [facility] with a white count of 15,000. He was a bit tachycardic. His potassium was 5.1 and he had hypomagnesemia. His white count is down to 11,520. Hemoglobin is down to 7.8, but his hemoglobin runs low. BUN and creatinine were 34 and 1.72 upon admission and 31 and 1.71 today and again this is actually better than his baseline. He was up as high as 2.32 in last admission. In addition, his vital signs are stable. He is not tachycardic or hypoxic. He did have a temperature of 37.7 last night. At this point, I would continue the antibiotics. We will do a diagnostic and therapeutic left thoracentesis; however, the radiology report of his CT scan on the right side did not really emphasize how much improvement we have seen on that side. I do not think that is the etiology of his presenting problems. I will continue the antibiotics. We will see how he looks tomorrow. For the specifics of my consultation, please refer to my full consultation from 03/18/2019.
--- NOTE | 2019-03-30 14:50 | Hospitalist Progress Note ---
Date of Service March 30, 2019 Results & Data Vital Signs (Past 12 Hours) Vital Signs Temp Pulse Pulse Resp BP BP Pulse Ox 03/30/19 11:02 37.2 C 81 18 139/70 95 03/30/19 07:05 79 16 93 03/30/19 06:54 37.2 C 84 20 130/53 L 90 03/30/19 03:30 36.7 C 77 18 127/65 94 PG Care Time/CCT Total # of Minutes Spent Total Time Spent with Patient: Total time spent is greater than 50% in coordination of care (as documented) at patient's floor/unit and/or counseling patient:
[2019-03-30 18:10] LABS: Hematocrit (blood only) 28.6 % (42-52)
[2019-03-30] MEDS: GABAPENTIN 600 MG TAB PO SCH (21:04)
[2019-03-30] MEDS: MIRTAZAPINE SOLTAB 15 MG PO SCH (21:04)
[2019-03-30] MEDS: TAMSULOSIN HCL 0.4 MG CAP PO SCH (21:04)
[2019-03-30] MEDS: ATORVASTATIN 40 MG TAB PO SCH (22:18)
[2019-03-30] MEDS: VANCOMYCIN HCL 750 MG in SODIUM CHLORIDE 0.9% 250 ML IV SCH (22:18)
[2019-03-31] MEDS: HYDROmorphone INJ 0.5 MG/0.5 ML SYR IV PRN ×6 (00:58→21:16)
[2019-03-31] MEDS: PIPERACILLIN/TAZOBACTAM 3.375 GM in DEXTROSE 5% 100 ML IV SCH ×3 (04:02→21:10)
[2019-03-31 06:11] LABS: Basophils # (auto) 0.06 K/uL (0-0.2); Basophils % (auto) 0.6 %; Eosinophils # (auto) 0.65 K/uL (0-0.5); Eosinophils % (auto) 6.3 %; Hematocrit (blood only) 26.2 % (42-52); Hemoglobin 8.3 g/dL (14.0-18.0); Immature Granulocytes # (auto) 0.03 K/uL (0.00-0.02); Immature Granulocytes % (auto) 0.3 %; Lymphocytes # (auto) 1.56 K/uL (1.2-3.4); Lymphocytes % (auto) 15.1 %; Mean Corpuscular Hgb Conc 31.7 g/dL (32-36); Mean Platelet Volume 8.9 fL (7.4-10.4); Monocytes % (auto) 9.7 %; Neutrophils # (auto) 7.06 K/uL (1.4-6.5); Platelet Count 513 K/uL (130-400); RDW Coefficient of Variation 15.1 % (11.5-14.5); RDW Standard Deviation 53.1 fL (36.4-46.3); Red Blood Count 2.73 M/uL (4.7-6.1); White Blood Count 10.36 K/uL (4.8-10.8)
[2019-03-31 06:49] LABS: BUN Creatinine Ratio 14.9 (10-20); Calcium 8.3 mg/dl (8.5-10.1); Creatinine Clr Calc Pharmacy 28.1 ml/min; Est GFR (African American) 36.1; Est GFR (Non-African American) 31.1
[2019-03-31] MEDS: ALBUT/IPRATROP 3MG/0.5MG NEB 3 ML VIAL NEB SCH ×2 (07:14→19:10)
--- NOTE | 2019-03-31 07:16 | Family Medicine Progress Note ---
Date of Service March 31, 2019 Assessment & Plan (1) Shortness of breath: 78-year-old male was admitted on 29 March 2019 for shortness of breath. Of note he was discharged on to [facility] for right-sided rib fractures, acute respiratory failure with pneumonia, and KEAGAN due to decreased oral intake. Shortness of breath: hypoxia, bilateral pleural effusions, recent PNA: Patient actually notes more acute on chronic left-sided rib regional pain than SOB. S/p right thoracentesis & one liter removed on . No noted symptomatic improvement with duo nebs or nitroglycerin via EMS. On arrival, afebrile, mildly tachycardic, RR 20, 87% on 2 L nasal cannula. WBC 15. CTA chest notes bilateral pleural effusions and opacities (amongst others, see full report). Concern for developing abscess. In ED, treated with Zofran, 500 mL NS IVF, morphine and dilaudid. - Patient had fever to 37.6 overnight, white count 10.36 today of note platelets elevated to 448 satting 94% on 4 L - blood cx NGTD - Cont vancomycin and Zosyn 3.375 gm q6h (renal-dosed). narrow pending cx results - Re-consult thoracic surgery. -> for thoracocentesis today - Trend daily CBC - Follow-up pro-Adis 0.21 and CRP 14.90 will continue abx therapy and repeat crp s/p centesis Hyperkalemia: Admit K 5.1. EKG sinus tachy 113 with normal shaped T waves but inversions in V2 & V3. Monitoring. - Potassium 5.0 today no cardiac symptoms no tachycardia - Trend daily BMP Hypomagnesemia: Admit Mg 1.2. Replaced in ED. - Today magnesium 1.7 repleted 1 g IV mag sulfate T wave inversions: new T wave inversions evident in V2 and V3 from previous EKG 1 month ago. Negative troponins x2 this is not likely the source of the patient's chest pain. -Repeat echo demonstrates ejection fraction of 40 to 45% when compared to study on 03/04/2019 there is new septal wall motion abnormal specifically mid and distal akinesis -These findings are likely secondary to stress of illness would follow-up outpatient echo in 4 weeks -Consider cards consult based on findings Anemia of chronic disease: Transfused total 3 units PRBC on admission earlier in March. This admit Hb 8.8. Continue home ferrous sulfate. -Today hemoglobin 7.8, patient asymptomatic -Afternoon hemoglobin 9.0 this morning 8.3 -Type and cross holding unit of packed red blood cells -Give RBCs for symptomatic anemia or hemoglobin less than 7 -Trend daily CBC Ongoing medical issues: - Hypertension, hyperlipidemia, CAD s/p prior stent: Continue home aspirin, amlodipine, atorvastatin, metoprolol. - Vitamin B12 deficiency: Continue home cyanocobalamin. - GERD: Continue home omeprazole - Opioid dependence: Continue home gabapentin, mirtazapine, Douglas, lidocaine patch. - Multiple rib fractures: S/p fall around 23May. - Anxiety: Continue home buspirone. - Urinary retention: On home tamsulosin. - Chronic renal insufficiency: Admit Cr 1.8, similar to baseline. - Right hand tremor: On home primidone. Code status: Full code. Diet: N.p.o. at midnight. DVT prophy: Chemical prophylaxis held in case of thoracentesis tomorrow. SCDs. PT/OT: Ordered. FENa:NPO pending seen by thoracic surgery than reg diet Code Status:Full DVT PPX:SCD Dispo:Med/Surg Tele (2) Hypoxia: (3) Pleural effusion: (4) Hypomagnesemia: (5) Hypertension: (6) Hyperkalemia: (7) Hyperlipidemia LDL goal <70: (8) CAD (coronary artery disease): (9) Anemia of chronic disease: (10) Vitamin B12 deficiency: (11) GERD (gastroesophageal reflux disease): (12) Opioid dependence: (13) Fracture, ribs: (14) Chronic pain: (15) Anxiety: (16) Urinary retention: (17) Chronic renal insufficiency: (18) Tremor of right hand: Results & Data Vital Signs (Past 12 Hours) Vital Signs Temp Pulse Pulse Resp BP BP Pulse Ox 03/31/19 07:07 37.0 C 81 19 125/65 93 03/31/19 03:44 36.9 C 79 18 117/64 94 03/30/19 23:20 37.6 C H 84 22 114/61 94 03/30/19 19:18 76 18 94 (1) Fracture, ribs Encounter type: subsequent encounter Fracture healing: with routine healing Fracture type: closed Laterality: right Rib fracture type: multiple ribs Qualified Code(s): S22.41XD - Multiple fractures of ribs, right side, subsequent encounter for fracture with routine healing
--- NOTE | 2019-03-31 07:21 | Family Medicine Progress Note ---
Date of Service March 31, 2019 Assessment & Plan (1) Shortness of breath: 78-year-old male was admitted on 29 March 2019 for shortness of breath. Of note he was discharged on to [facility] for right-sided rib fractures, acute respiratory failure with pneumonia, and KEAGAN due to decreased oral intake. Shortness of breath: Hypoxia, bilateral pleural effusions, recent PNA: Patient actually notes more acute on chronic left-sided rib regional pain than SOB. S/p right thoracentesis & one liter removed on . No noted symptomatic improvement with duo nebs or nitroglycerin via EMS. On arrival, afebrile, mildly tachycardic, RR 20, 87% on 2 L nasal cannula. WBC 15. CTA chest notes bilateral pleural effusions and opacities (amongst others, see full report). Concern for developing abscess. In ED, treated with Zofran, 500 mL NS IVF, morphine and dilaudid. - Patient had fever to 37.6 overnight, white count 10.36 today of note platelets elevated to 448 satting 94% on 4 L - blood cx NGTD - Cont vancomycin and Zosyn 3.375 gm q6h (renal-dosed). narrow pending cx results - Re-consult thoracic surgery. -> for thoracocentesis today - Trend daily CBC - Follow-up pro-Adis 0.21 and CRP 14.90 will continue abx therapy for now Hyperkalemia: Admit K 5.1. EKG sinus tachy 113 with normal shaped T waves but inversions in V2 & V3. Monitoring. - Potassium 5.0 today no cardiac symptoms no tachycardia - Trend daily BMP Hypomagnesemia: Admit Mg 1.2. Replaced in ED. - Today magnesium 1.7 repleted 1 g IV mag sulfate T wave inversions: new T wave inversions evident in V2 and V3 from previous EKG 1 month ago. Negative troponins x2 this is not likely the source of the patient's chest pain. -Repeat echo demonstrates ejection fraction of 40 to 45% when compared to study on 03/04/2019 there is new septal wall motion abnormal specifically mid and distal akinesis -These findings are likely secondary to stress of illness would follow-up outpatient echo in 4 weeks -Cardiology consulted following the recommendations -Patient's T wave inversions likely represent previous myocardial infarction. After reviewing EKG findings from 03/11/2019 there was evidence of ST elevation in 1 of the precordial leads, however no troponins were obtained at that time. -Currently on appropriate medication regimen including aspirin, atorvastatin and metoprolol, -Uptitrate metoprolol to 50 twice daily, if he demonstrates tachycardia without hypertension could uptitrate metoprolol and DC amlodipine -Does not require further anticoagulation besides aspirin, currently not showing ischemic symptoms, with elevated creatinine would not in favor of cardiac cath would consider Lexiscan as an outpatient. #Hypertension See above -Metoprolol 50 mg twice daily, DC'd amlodipine -Traditionally in the setting lisinopril or similar drug would be most beneficial from a morbidity mortality standpoint, unfortunately given his current kidney function we are hesitant to initiate without significant follow- up -If the patient's creatinine remains stable, he seen, and it appears as if he will be staying in the hospital for 2 days would consider trial of lisinopril 2.5 mg tomorrow with serial BMP follow-up and discontinuation if any changes in kidney function Anemia of chronic disease: Transfused total 3 units PRBC on admission earlier in March. This admit Hb 8.8. Continue home ferrous sulfate. -Yesterday hemoglobin was 7.8 and downtrending, patient asymptomatic -Afternoon hemoglobin 9.0 this morning 8.3 -Type and cross holding unit of packed red blood cells -Give RBCs for symptomatic anemia or hemoglobin less than 7 -Trend daily CBC Ongoing medical issues: - Hypertension, hyperlipidemia, CAD s/p prior stent: Continue home aspirin, amlodipine, atorvastatin, metoprolol. - Vitamin B12 deficiency: Continue home cyanocobalamin. - GERD: Continue home omeprazole - Opioid dependence: Continue home gabapentin, mirtazapine, [place], lidocaine patch. - Multiple rib fractures: S/p fall around 23May. - Anxiety: Continue home buspirone. - Urinary retention: On home tamsulosin. - Chronic renal insufficiency: Admit Cr 1.8, similar to baseline. - Right hand tremor: On home primidone. FENa:NPO pending seen by thoracic surgery than reg diet Code Status:Full DVT PPX:SCD Dispo:Med/Surg Tele (2) Hypoxia: (3) Pleural effusion: (4) Hypomagnesemia: (5) Hypertension: (6) Hyperkalemia: (7) Hyperlipidemia LDL goal <70: (8) CAD (coronary artery disease): (9) Anemia of chronic disease: (10) Vitamin B12 deficiency: (11) GERD (gastroesophageal reflux disease): (12) Opioid dependence: (13) Fracture, ribs: (14) Chronic pain: (15) Anxiety: (16) Urinary retention: (17) Chronic renal insufficiency: (18) Tremor of right hand: Supervising Physician Co-Signing Physician Notes I personally examined the patient and verified all braga points of history and exam, discussed case, and agree with decision making with Dr Olivia. Notes chest pain persist, but now feels about the same as it has for the last 15 to 18 years, not like it did yesterday. Breathing seems better 2. Updated on plans. Answered all questions to the best my ability. at the bedside who expresses good understanding of the situation. Vitals noted, in general he is awake and alert pleasant no distress. HEENT normal cephalic atraumatic mucous members moist. Breathing unlabored no accessory muscle use good effort. Skin shows no rashes no pallor or icterus. Neuro shows no focal deficits. Follow-up chest x-ray shows improved effusion. Pleural effusionseems to have been the etiology of worsening of left-sided chest pain, as well as his worsening shortness of breath, he is now status post thoracentesis and appearing stable. Thoracic surgery input greatly appreciated. Continue antibiotics for now at thoracic surgery recommendation. Coronary artery disease/new wall motion abnormalityincrease med management. Hold amlodipine to allow escalation of metoprolol at this time, and then had extensive discussion with patient and on risk/benefit of initiation of ZARINA inhibitor. Given the potential benefit for coronary disease with afterload reduction, we are all in agreement that a careful trial starting at a low dose, with close follow-up of his basic metabolic panel after initiation and for at least several weeks after initiation, it is likely to provide more benefit than risk. We will hold on starting the ZARINA inhibitor today, because he had significant volume shifting from the thoracentesis. As long as he appears euvolemic tomorrow would initiate it then. DispositionPT/OT eval and treat. He notes he does not want to go back to [facility]. DVT prophylaxispharmacologic on hold due to today's thoracentesis, depending on his ability to ambulate tomorrow, would give strong consideration to initiation of pharmacologic if he is still fairly immobile. Subjective Patient sitting upright in bed this morning no acute distress. No significant interval history overnight, reports voiding, stooling, eating, sleeping appropriately. He has been n.p.o. overnight for thoracocentesis with Dr. Mehta today. Patient continues to improve, reporting decreased pain this morning & improvement in hypoxia. no acute concerns all questions answered. Physical Exam Physical Exam: General: Elderly gentleman in no acute distress laying flat in bed HEENT: Normocephalic atraumatic negative lymphadenopathy Neck: Questionable elevated JVD approximately level of the mandible at about 30 degrees incline required significant hepatic blood pressure to observe. Cardiac: Regular rate and rhythm, appreciate any murmurs rubs or gallops, normal S1 normal S2, negative pedal edema, negative calf tenderness, good capillary refill Respiratory: Clear to auscultation bilaterally, no wheezes, no rales, no rhonchi GI: Soft, nontender, nondistended, normal bowel sounds, left upper quadrant pain MSK: Moves all extremities Skin: No new rashes Neuro: Alert and oriented Psych: Calm and cooperative Results & Data Vital Signs (Past 12 Hours) Vital Signs Temp Pulse Pulse Resp BP BP Pulse Ox 03/31/19 07:14 82 18 94 03/31/19 07:07 37.0 C 81 19 125/65 93 03/31/19 03:44 36.9 C 79 18 117/64 94 03/30/19 23:20 37.6 C H 84 22 114/61 94 Laboratory Results 03/31/19 03/31/19 03/31/19 Range/Units 09:30 09:29 05:30 WBC 10.36 (4.8-10.8) K/uL RBC 2.73 L (4.7-6.1) M/uL Hgb 8.3 L (14.0-18.0) g/dL Hct 26.2 L (42-52) % MCV 96.0 (80-100) fL MCH 30.4 (25-34) pg MCHC 31.7 L (32-36) g/dL RDW Std Deviation 53.1 H (36.4-46.3) fL RDW Coeff of Lucas 15.1 H (11.5-14.5) % Plt Count 513 H (130-400) K/uL MPV 8.9 (7.4-10.4) fL Immature Gran % (Auto) 0.3 % Neut % (Auto) 68.0 % Lymph % (Auto) 15.1 % Johnston % (Auto) 9.7 % Eos % (Auto) 6.3 % Baso % (Auto) 0.6 % Immature Gran # (Auto) 0.03 H (0.00-0.02) K/uL Neut # (Auto) 7.06 H (1.4-6.5) K/uL Lymph # (Auto) 1.56 (1.2-3.4) K/uL Johnston # (Auto) 1.00 H (0.11-0.59) K/uL Eos # (Auto) 0.65 H (0-0.5) K/uL Baso # (Auto) 0.06 (0-0.2) K/uL Sample Site Heel Stick POC pH 7.37 (7.35-7.45) POC pCO2 40 (35-46) mmHg POC pO2 85 (80-95) mmHg POC HCO3 23 (19-24) timothy/L POC Total CO2 24 (24-31) mEq/l POC Base Excess -2.0 (-9-1.8) timothy/L POC ABG O2 Sat 96.0 H (90-95) % Jose Test NA Sodium (136-145) mmol/L Potassium (3.5-5.1) mmol/L Chloride (98-107) mmol/L Carbon Dioxide (21-32) mmol/L Anion Gap (3-11) BUN (7-18) mg/dl Creatinine (0.6-1.4) mg/dl Est Cr Clr Drug Dosing ml/min Est GFR ( Amer) Est GFR (Non-Af Amer) BUN/Creatinine Ratio (10-20) Glucose (70-99) mg/dl Calcium (8.5-10.1) mg/dl Pleural Fluid Source LEFT LUNG Pleural Color DAVID Pleural Appearance CLOUDY Pleural WBC 3738 /uL Pleural RBC 7000 /uL Pleural Polynuclear % 80.8 % Pleural Mononuclear % 19.2 % Pleural Total Protein 4.0 g/dl Pleural LDH 309 U/L Pleural Glucose 86 mg/dl 03/31/19 03/30/19 Range/Units 05:30 17:48 WBC (4.8-10.8) K/uL RBC (4.7-6.1) M/uL Hgb 9.0 L (14.0-18.0) g/dL Hct 28.6 L (42-52) % MCV (80-100) fL MCH (25-34) pg MCHC (32-36) g/dL RDW Std Deviation (36.4-46.3) fL RDW Coeff of Lucas (11.5-14.5) % Plt Count (130-400) K/uL MPV (7.4-10.4) fL Immature Gran % (Auto) % Neut % (Auto) % Lymph % (Auto) % Johnston % (Auto) % Eos % (Auto) % Baso % (Auto) % Immature Gran # (Auto) (0.00-0.02) K/uL Neut # (Auto) (1.4-6.5) K/uL Lymph # (Auto) (1.2-3.4) K/uL Johnston # (Auto) (0.11-0.59) K/uL Eos # (Auto) (0-0.5) K/uL Baso # (Auto) (0-0.2) K/uL Sample Site POC pH (7.35-7.45) POC pCO2 (35-46) mmHg POC pO2 (80-95) mmHg POC HCO3 (19-24) timothy/L POC Total CO2 (24-31) mEq/l POC Base Excess (-9-1.8) timothy/L POC ABG O2 Sat (90-95) % Jose Test Sodium 137 (136-145) mmol/L Potassium 5.0 (3.5-5.1) mmol/L Chloride 105 (98-107) mmol/L Carbon Dioxide 26 (21-32) mmol/L Anion Gap 6.0 (3-11) BUN 30 H (7-18) mg/dl Creatinine 2.02 H D (0.6-1.4) mg/dl Est Cr Clr Drug Dosing 28.1 ml/min Est GFR ( Amer) 36.1 Est GFR (Non-Af Amer) 31.1 BUN/Creatinine Ratio 14.9 (10-20) Glucose 93 (70-99) mg/dl Calcium 8.3 L (8.5-10.1) mg/dl Pleural Fluid Source Pleural Color Pleural Appearance Pleural WBC /uL Pleural RBC /uL Pleural Polynuclear % % Pleural Mononuclear % % Pleural Total Protein g/dl Pleural LDH U/L Pleural Glucose mg/dl Medications Administered Current Inpatient Medications Acetaminophen (Tylenol) 650 mg PO Q4H PRN PRN Reason: Pain or Fever Stop: 04/28/19 21:47 Last Admin: 03/30/19 22:19 Dose: 650 mg Documented by: Albuterol (Duoneb) 3 ml NEB BIDR [facility] Stop: 04/29/19 07:59 Last Admin: 03/31/19 07:14 Dose: 3 ml Documented by: Amlodipine Besylate (Norvasc) 5 mg PO BID [facility] Stop: 04/28/19 21:47 Last Admin: 03/31/19 08:26 Dose: 5 mg Documented by: Aspirin (Ecotrin Ectab) 81 mg PO QAM [facility] Stop: 04/29/19 08:59 Last Admin: 03/31/19 09:43 Dose: 81 mg Documented by: Atorvastatin Calcium (Lipitor) 40 mg PO QPM [facility] Stop: 04/28/19 21:47 Last Admin: 03/30/19 22:18 Dose: 40 mg Documented by: Buspirone HCl (Buspar) 5 mg PO TID PRN PRN Reason: Anxiety Stop: 04/28/19 21:47 Last Admin: 03/30/19 22:18 Dose: 5 mg Documented by: Cyanocobalamin (Vitamin B-12) 1,000 mcg PO QAM [facility] Stop: 04/29/19 08:59 Last Admin: 03/31/19 08:28 Dose: 1,000 mcg Documented by: Ferrous Sulfate (Feosol) 325 mg PO QAM [facility] Stop: 04/29/19 08:59 Last Admin: 03/31/19 08:28 Dose: 325 mg Documented by: Folic Acid (Folvite) 1 mg PO QAM [facility] Stop: 04/29/19 08:59 Last Admin: 03/31/19 08:29 Dose: 1 mg Documented by: Gabapentin (Neurontin) 600 mg PO HS [facility] Stop: 04/28/19 21:47 Last Admin: 03/30/19 21:04 Dose: 600 mg Documented by: Hydromorphone HCl (Dilaudid) 0.5 mg IV Q4H PRN PRN Reason: Pain Stop: 04/12/19 21:47 Last Admin: 03/31/19 13:24 Dose: 0.5 mg Documented by: Piperacillin Sod/Tazobactam (Sod 3.375 gm/ Dextrose) 115 mls @ 28.75 mls/hr IV Q8H [facility]; Protocol Stop: 04/05/19 03:59 Last Admin: 03/31/19 12:23 Dose: 28.8 mls/hr Documented by: Vancomycin HCl 750 mg/ Sodium (Chloride) 265 mls @ 125 mls/hr IV Q24H [facility] Stop: 04/05/19 19:59 Last Infusion: 03/31/19 01:00 Dose: Infused Documented by: Lidocaine (Lidoderm 5%) 2 patch TD [facility] Stop: 04/29/19 08:59 Last Admin: 03/31/19 08:30 Dose: Not Given Documented by: Metoprolol Succinate (Toprol Xl) 50 mg PO DAILY [facility] Stop: 04/29/19 08:59 Last Admin: 03/31/19 08:27 Dose: 50 mg Documented by: Mirtazapine (Remeron Solutab) 45 mg PO [facility] Stop: 04/28/19 21:47 Last Admin: 03/30/19 21:04 Dose: 45 mg Documented by: Miscellaneous (Remove Lidoderm Patch) 1 ea N/A DAILY@2100 [facility] Stop: 04/28/19 21:47 Last Admin: 03/30/19 21:06 Dose: 1 ea Documented by: Miscellaneous Information (Consult) 1 ea N/A UD PRN PRN Reason: Consult Stop: 04/28/19 21:47 Miscellaneous Information (Consult) 1 ea N/A UD PRN PRN Reason: Consult Stop: 04/28/19 21:47 Nitroglycerin (Nitrostat) 0.4 mg SL UD PRN PRN Reason: Chest Pain Stop: 04/28/19 21:47 Ondansetron HCl (Zofran) 4 mg IV Q4H PRN PRN Reason: Nausea Stop: 04/28/19 21:47 Pantoprazole Sodium (Protonix) 40 mg PO QAM [facility] Stop: 04/29/19 08:59 Last Admin: 03/31/19 08:27 Dose: 40 mg Documented by: Primidone (Primidone) 50 mg PO DAILY [facility] Stop: 04/29/19 08:59 Last Admin: 03/31/19 08:29 Dose: 50 mg Documented by: Tamsulosin HCl (Flomax) 0.4 mg PO HS [facility] Stop: 04/28/19 21:47 Last Admin: 03/30/19 21:04 Dose: 0.4 mg Documented by: Thiamine HCl (Vitamin B-1) 100 mg PO QAM [facility] Stop: 04/29/19 08:59 Last Admin: 03/31/19 08:28 Dose: 100 mg Documented by: Vitamin D (Vitamin D3) 1,000 units PO QAM [facility] Stop: 04/29/19 08:59 Last Admin: 03/31/19 08:26 Dose: 1,000 units Documented by: PG Care Time/CCT Total # of Minutes Spent Total Time Spent with Patient: Total time spent is greater than 50% in coordination of care (as documented) at patient's floor/unit and/or counseling patient: Resident Activity Tracking Resident Involvement: Resident Care Provided Care Provided: Adult Hospital Medicine (1) Fracture, ribs Encounter type: subsequent encounter Fracture healing: with routine healing Fracture type: closed Laterality: right Rib fracture type: multiple ribs Qualified Code(s): S22.41XD - Multiple fractures of ribs, right side, subsequent encounter for fracture with routine healing
[2019-03-31] MEDS: AMLODIPINE BESYLATE 5 MG TAB PO SCH (08:26)
[2019-03-31] MEDS: CHOLECALCIFEROL 1,000 UNITS TAB PO SCH (08:26)
[2019-03-31] MEDS: PANTOprazole 40 MG TAB PO SCH (08:27)
[2019-03-31] MEDS: METOPROLOL SUCC 50MG EXT REL TAB PO SCH ×2 (08:27→21:10)
[2019-03-31] MEDS: FERROUS SULFATE 325 MG TAB PO SCH (08:28)
[2019-03-31] MEDS: THIAMINE HCL 100 MG TAB PO SCH (08:28)
[2019-03-31] MEDS: CYANOCOBALAMIN 500 MCG TABLET (VITAMIN B-12) PO SCH (08:28)
[2019-03-31] MEDS: PRIMIDONE 50 MG TAB PO SCH (08:29)
[2019-03-31] MEDS: FOLIC ACID 1 MG TAB PO SCH (08:29)
[2019-03-31] MEDS: LIDOCAINE 5% 1 PATCH TD SCH (08:30)
[2019-03-31 09:43] LABS: iSTAT Arterial Blood Gas HCO3 23 meg/L (19-24); iSTAT Arterial Blood Gas pCO2 40 mmHg (35-46); iSTAT Arterial Blood Gas pH 7.37 (7.35-7.45); iSTAT Carbon Dioxide 24 mEq/l (24-31); iSTAT Site Heel Stick
[2019-03-31] MEDS: ASPIRIN 81 MG ECTAB PO SCH (09:43)
[2019-03-31] MEDS ORDERED: HYDROmorphone INJ 0.5 MG/0.5 ML SYR IV STA (10:01)
--- NOTE | 2019-03-31 10:10 | XRay Report ---
XR chest 1V portable CLINICAL HISTORY: Chest x-ray status post thoracentesis COMPARISON STUDY: 03/29/2019 FINDINGS: The cardiac and mediastinal contours remain stable. There are persistent airspace opacities at the left lung base, right midlung zone, and right perihilar region. There is a small left pleural effusion with associated left basilar atelectasis/consolidation. There is no evidence of pneumothora x status post thoracentesis. A small right pleural effusion is also suspected.[ IMPRESSION: 1. Small bilateral pleural effusions 2. Bilateral pulmonary airspace opacities, likely secondary to pneumonia and/or aspiration 3. No evidence of pneumothorax status post thoracentesis Electronically signed by: Vadim Brand M.D. 03/31/2019 10:08 AM
[2019-03-31 10:33] LABS: Appearance Pleural Fluid CLOUDY; Color Pleural Fluid AMBER; Mononuclear WBC Pleural 19.2 %; Polynuclear WBC Pleural 80.8 %; RBC Pleural Fluid (A) 7000 /uL; Source Pleural Fluid LEFT LUNG; WBC Pleural Fluid (A) 3738 /uL
[2019-03-31 10:35] LABS: Glucose Pleural Fluid 86 mg/dl
--- NOTE | 2019-03-31 10:39 | Cardiology Consultation ---
Date of Consultation March 31, 2019 Assessment & Plan (1) Septal myocardial infarction: Patient appears to have had a septal infarct several weeks ago, no complications of heart failure, malignant dysrhythmia, or recurrent angina. He is already on the appropriate medications including aspirin, atorvastatin, the metoprolol. Would titrate his metoprolol higher to reduce tendency to tachycardia or hypertension. If he demonstrates tachycardia without hypertension, could discontinue amlodipin e well further titrating metoprolol. Since he is stable several weeks post infarct, he does not need anticoagulation beyond aspirin. Also, since he is not showing ischemic symptoms, given his elevated creatinine would be reluctant to consider cardiac catheterization. Could perform Lexiscan nuclear cardiac study as an outpatient to quantify any remaining ischemic burden. (2) Shortness of breath: Multifactorial, does not appear to having significant heart failure component. Neck veins are minimally elevated he is able to lie flat. Could potentially discharge on low-dose diuretic (perhaps hydrochlorothiazide rather than Dyazide given his tendency to hyperkalemia and renal insufficiency). This would help keep him on the dry side and reduce the tendency to fluid accumulation. (3) Chest pain: Current chest pain does not seem anginal given his duration location. ECG is more consistent with an evolving infarct than an acute event. (4) Pleural effusion: Thoracentesis planned as per Dr. Mehta. (5) CAD (coronary artery disease): Details of his prior stenting were uncertain, however he is on appropriate medication for management of coronary artery disease. (6) Hypertension: BP somewhat labile, as noted could titrate metoprolol upward. (7) H/O heart artery stent: Manny to review history to obtain details, apparently this was a remote event. History of Present Illness Attending Physician: Floyd Valladares DO History of Present Illness 78-year-old man with history of pneumonia and right-sided rib fractures for which he was recently hospitalized, discharged on 03/21/[address] [facility], returned 2 days ago with worsening left-sided lower rib region pain. Has some dyspnea on exertion, large left pleural effusion for which he is to undergo thoracentesis. Echocardiogram today showed new septal wall motion abnormality. Review of ECG shows that this almost certainly occurred between 03/04/2019 and 03/11/2019, weight ECG showed an acute septal infarct and subsequent evolutionary changes. He does not recall any specific anginal type pain, but his history is complicated by rib fractures, pleural effusion secondary to moan you, and other chest symptoms. At the time of my evaluation he was resting comfortable and noted only left lower rib region pain which had been present for days to weeks. Allergies Allergy/AdvReac Type Severity Reaction Status Date / Time cefuroxime Allergy Unknown rash Verified 03/29/19 16:12 Home Medications Home Medications Medication Instructions Recorded Confirmed Type amlodipine 5 mg PO BID 02/25/19 03/29/19 History aspirin 81 mg PO QAM 02/25/19 03/29/19 History atorvastatin 40 mg PO QPM 02/25/19 03/29/19 History buspirone 5 mg PO TID PRN 02/25/19 03/29/19 History cholecalciferol (vitamin D3) 1,000 unit PO QAM 02/25/19 03/29/19 History [Vitamin D3] cyanocobalamin (vitamin B-12) 1,000 mcg PO QAM 02/25/19 03/29/19 History [Vitamin B-12] gabapentin 600 mg PO HS 02/25/19 03/29/19 History mirtazapine 45 mg PO HS 02/25/19 03/29/19 History nitroglycerin 0.4 mg SUBLINGUAL DIRECTED PRN 02/25/19 03/29/19 History omeprazole 40 mg PO QAM 02/25/19 03/29/19 History primidone 50 mg PO DAILY 02/25/19 03/29/19 History ferrous sulfate 325 mg PO QAM #30 tab 03/21/19 03/29/19 Rx folic acid 1 mg PO QAM #30 tab 03/21/19 03/29/19 Rx hydrocodone-acetaminophen 1.5 tab PO Q6H PRN #18 tab 03/21/19 03/29/19 Rx ipratropium-albuterol 3 ml NEB BIDR #90 ml 03/21/19 03/29/19 Rx lidocaine 2 patch TRANSDERMAL QAM #60 ea 03/21/19 03/29/19 Rx metoprolol succinate 50 mg PO DAILY #30 tab 03/21/19 03/29/19 Rx tamsulosin 0.4 mg PO HS #30 cap 03/21/19 03/29/19 Rx thiamine HCl (vitamin B1) [Vitamin 100 mg PO QAM #30 tab 03/21/19 03/29/19 Rx B-1] Patient History Medical History Opioid dependence (Chronic) Anemia of chronic disease (Chronic) Rib pain on right side (Chronic) GERD (gastroesophageal reflux disease) (Chronic) Anxiety (Chronic) Vitamin B12 deficiency (Chronic) Hyperlipidemia LDL goal <70 (Chronic) CAD (coronary artery disease) (Chronic) Hypertension (Chronic) Fall (Inactive) Multiple rib fractures (Inactive) Surgical History H/O heart artery stent (Chronic) Family History No significant family history Social History Preferred Language: Mongolian Communication Ability: Effective Farmer General Required: No Beliefs That Will Affect Care: None Current Living Situation: Spouse Other Information That Helps Us Care for You: No Feels Safe at Home: Yes Safety Concerns: Feels Safe At This Time Smoking Status: Former smoker Do You Dip or Chew Tobacco: No Second Hand Exposure: No Tobacco Cessation Education Requested by Patient: No Hx Alcohol Use: Yes Hx Substance Use: No Physical Exam Physical Exam: No distress. Able to lie flat. Skin: No unusual lesions or ecchymosis. HEENT: Unremarkable. Neck: Jugular venous pulse less than a quarter of the way to the angle of the jaw at 90, no carotid bruits. Lungs: Absent breath sounds fdc up on the left, dullness at the right base, for a sounds decreased overall but no obvious wheezing or crackles. No accessory muscle use, intercostal retraction, or nasal flaring. Cardiac: Regular rhythm with toe faint heart tones and no obvious murmur or gallop. Abdomen: Benign. Extremities: Nontender without edema. Intact peripheral pulses. Neurologic: Normal affect, nonfocal Results & Data Vital Signs (Past 12 Hours) Vital Signs Temp Pulse Pulse Resp BP BP Pulse Ox 03/31/19 07:14 82 18 94 03/31/19 07:07 98.6 F 81 19 125/65 93 03/31/19 03:44 98.4 F 79 18 117/64 94 03/30/19 23:20 99.7 F H 84 22 114/61 94 Laboratory Results 03/31/19 03/31/19 03/31/19 05:30 05:30 09:29 WBC 10.36 Hgb 8.3 L Plt Count 513 H POC pH 7.37 POC pCO2 40 POC pO2 85 POC HCO3 23 BUN 30 H Creatinine 2.02 H D Diagnostic Findings ECG on 02/25/2019 showed sinus rhythm with a minor interventricular conduction delay, otherwise unremarkable. Isoelectric ST segments in V 2. ECG on 03/04/19 was similar. ECG on 03/11/[address] showed [address] elevation in lead V2, [address]-elevation in lead V1. ECG yesterday showed loss of septal R wave with return of ST segments to isoelectric and new anterior T-wave inversions. ECG today was similar to yesterday. Echocardiogram on 03/04/2020 showed normal LV systolic function with no regional wall motion abnormalities. Mild pulmonary hypertension noted. Echocardiogram today showed a new mid distal area of septal wall akinesis with mildly reduced LV systolic function (EF 40-45%). (1) Chest pain Chest pain type: unspecified Qualified Code(s): R07.9 - Chest pain, unspecified
[2019-03-31 10:42] LABS: LDH Pleural Fluid 309 U/L
--- NOTE | 2019-03-31 14:13 | Operative Report ---
DATE OF OPERATION: 03/31/2019 PREOPERATIVE DIAGNOSIS: Left pleural effusion. POSTOPERATIVE DIAGNOSIS: Left pleural effusion. PROCEDURE: Ultrasound-guided left thoracentesis. SURGEON: Amor Mehta MD. ANESTHESIA: Local. SPECIFICS OF PROCEDURE: With the patient in a seated position, his left chest was evaluated with an ultrasound. A good window was seen into his pleural cavity where the fluid was located. This was marked. The patient was prepped and draped in usual sterile fashion. After appropriate timeout had been called, a 25-gauge needle and 1% Xylocaine were used to raise a skin wheal. A large bore needle was used to anesthetize the deeper intercostal muscles and pleura. We got free flowing fluid out. A guidewire was inserted through the needle and the needle removed. A triple-lumen catheter was slid over the guidewire and the guidewire removed. 1400 mL of a rust-colored fluid was drained. He started having some reexpansion pain, so we stopped. We had no bleeding and no air aspirated. The patient tolerated it quite well and an x-ray is pending at this time. We did remove the catheter and placed an antimicrobial dressing on the puncture site. I attest to the content of the Intraoperative Record and any orders documented therein. Any exception s are noted below.
[2019-03-31] MEDS ORDERED: VANCOMYCIN TROUGH ONE (19:30)
[2019-03-31] MEDS: VANCOMYCIN HCL 750 MG in SODIUM CHLORIDE 0.9% 250 ML IV SCH (21:09)
[2019-03-31] MEDS: MIRTAZAPINE SOLTAB 15 MG PO SCH (21:11)
[2019-03-31] MEDS: TAMSULOSIN HCL 0.4 MG CAP PO SCH (21:11)
[2019-03-31] MEDS: ATORVASTATIN 40 MG TAB PO SCH (21:11)
[2019-03-31] MEDS: GABAPENTIN 600 MG TAB PO SCH (21:11)
[2019-04-01] MEDS: PIPERACILLIN/TAZOBACTAM 3.375 GM in DEXTROSE 5% 100 ML IV SCH ×3 (05:32→20:21)
[2019-04-01 06:03] LABS: Basophils # (auto) 0.05 K/uL (0-0.2); Basophils % (auto) 0.5 %; Eosinophils # (auto) 0.62 K/uL (0-0.5); Eosinophils % (auto) 6.8 %; Hematocrit (blood only) 25.2 % (42-52); Hemoglobin 8.3 g/dL (14.0-18.0); Immature Granulocytes # (auto) 0.01 K/uL (0.00-0.02); Immature Granulocytes % (auto) 0.1 %; Lymphocytes # (auto) 1.63 K/uL (1.2-3.4); Lymphocytes % (auto) 17.8 %; Mean Corpuscular Hgb Conc 32.9 g/dL (32-36); Mean Corpuscular Volume 95.8 fL (80-100); Mean Platelet Volume 8.7 fL (7.4-10.4); Monocytes # (auto) 0.77 K/uL (0.11-0.59); Monocytes % (auto) 8.4 %; Neutrophils # (auto) 6.09 K/uL (1.4-6.5); Neutrophils % (auto) 66.4 %; Platelet Count 477 K/uL (130-400); RDW Coefficient of Variation 14.8 % (11.5-14.5); RDW Standard Deviation 51.9 fL (36.4-46.3); Red Blood Count 2.63 M/uL (4.7-6.1); White Blood Count 9.17 K/uL (4.8-10.8)
[2019-04-01 06:30] LABS: BUN Creatinine Ratio 14.6 (10-20); Calcium 8.2 mg/dl (8.5-10.1); Est GFR (African American) 34.6; Est GFR (Non-African American) 29.9; Potassium 4.5 mmol/L (3.5-5.1)
[2019-04-01] MEDS: ALBUT/IPRATROP 3MG/0.5MG NEB 3 ML VIAL NEB SCH ×2 (06:56→19:15)
--- NOTE | 2019-04-01 07:13 | XRay Report ---
XR chest 1V portable CLINICAL HISTORY: pleural effusion pleural effusion. Dyspnea. COMPARISON STUDY: 03/31/2019 FINDINGS: Side progressive parenchymal infiltrate right lower lung. Unchanged right midlung infiltrat e. Persistent slight decrease in volume of a left effusion postthoracentesis. Persistent left lower lobe infiltrate. IMPRESSION: Bibasilar parenchymal infiltrates similar to to slightly progressive from the prior stud y. Small left pleural effusion. The above report was generated using voice recognition software. It may contain grammatical, syntax or spelling errors. Electronically signed by: Mike Dove M.D. 04/01/2019 7:12 AM
[2019-04-01] MEDS: HYDROmorphone INJ 0.5 MG/0.5 ML SYR IV PRN ×4 (07:25→20:21)
[2019-04-01] MEDS: PANTOprazole 40 MG TAB PO SCH (08:24)
[2019-04-01] MEDS: METOPROLOL SUCC 50MG EXT REL TAB PO SCH ×2 (08:24→21:35)
[2019-04-01] MEDS: FERROUS SULFATE 325 MG TAB PO SCH (08:25)
[2019-04-01] MEDS: CYANOCOBALAMIN 500 MCG TABLET (VITAMIN B-12) PO SCH (08:25)
[2019-04-01] MEDS: THIAMINE HCL 100 MG TAB PO SCH (08:26)
[2019-04-01] MEDS: CHOLECALCIFEROL 1,000 UNITS TAB PO SCH (08:26)
[2019-04-01] MEDS: ASPIRIN 81 MG ECTAB PO SCH (08:26)
[2019-04-01] MEDS: FOLIC ACID 1 MG TAB PO SCH (08:26)
[2019-04-01] MEDS: PRIMIDONE 50 MG TAB PO SCH (08:27)
[2019-04-01] MEDS: LIDOCAINE 5% 1 PATCH TD SCH (08:28)
--- NOTE | 2019-04-01 09:25 | Pharmacy Report ---
Pharmacy Abx Dose Short Note - Date of Service April 01, 2019 - Assessment & Plan Assessment 78 year old M receiving vancomycin and Zosyn for treatment of suspected pneumonia Day # 4/7 of antimicrobial therapy. Procal 0.21 on 03/30, which has continued to trend down from previous admission when treated for pneumonia SCr slowly increasing each day, so need to be cautious with vancomycin dosing, especially in the setting of combined Zosyn therapy (increased risk for nephrotoxicity) Microbiology 03/31/19 09:30 Pleural Fluid Gram Stain - Final 03/29/19 22:22 Blood Aerobic Blood Culture - Preliminary 03/29/19 22:22 Blood Anaerobic Blood Culture - Preliminary No growth in Aerobic bottle after 48 hours. No growth in Anaerobic bottle after 48 hours. 03/29/19 22:14 Blood Aerobic Blood Culture - Preliminary 03/29/19 22:14 Blood Anaerobic Blood Culture - Preliminary No growth in Aerobic bottle after 48 hours. No growth in Anaerobic bottle after 48 hours. Laboratory Tests 03/29/19 22:15 Nasal Screen MRSA (PCR) Positive A Plan Vancomycin * Trough level of 12.4 mcg/mL is subtherapeutic; however, this was drawn prior to steady state and SCr slowly increasing * Continue dose of 750 mg IV every 24 hours * Goal trough level : 15 to 20 mcg/mL * Trough level ordered for: 04/02/19 prior to the 5th dose Zosyn * Continue 3.375 gm IV q8h for CrCl > 20 mL/min If antibiotics are still warranted, may consider changing vancomycin or Zosyn to alternate antibiotics to prevent further risk of nephrotoxicity. Vancomycin could be switched to Zyvox, however, mirtazapine would need to be stopped as this is contraindicated with Zyvox. Zosyn could possibly be switched to cefepime + Flagyl, however, would need to monitor for allergy to cefepime as patient has a documented allergy to cefuroxime (rash). The only other cephalosporin I can find that the patient received in the past is Ancef. Pharmacy will continue to follow and will adjust dose/frequency as necessary. Thank you.
[2019-04-01] MEDS: ACETAMINOPHEN 325 MG TAB PO PRN ×2 (10:10→23:27)
--- NOTE | 2019-04-01 10:58 | Cardiology Progress Note ---
Date of Service April 01, 2019 Assessment & Plan (1) Chest pain: 2. CAD post prior stent 3. Ischemic cardiomyopathy 4. Suspected recent septal infarct 5. Pleural effusion 6. Anemia 7. CKD 8. Hypertension Septal infarct last month by echo, ECGs. No signs of active ischemia. Current chest pain does not represent angina. Well perfused, no systemic venous congestion on exam. Hemodynamically and electrically stable. -- No acute cardiac process and no need for cardiac catheterization at this time. -- Additional risk stratification could be considered as an outpatient but with co-morbidities would again avoid any invasive cardiac testing unless extreme high-risk findings. -- Continue current ASCVD secondary prevention meds - ASA, statin, beta-awilda. Off ZARINA in the setting of acute on CKD. Subjective Persistent left sided chest pain, worse with movement/inspiration. Breathing limited by pain but otherwise stable. Tele- reviewed, no events. Review of Systems Review of Systems: All systems reviewed & are unremarkable except as noted in HPI & below Physical Exam Physical Exam: General: Comfortable, no acute distress, thin, frail HEENT: Sclerae anicteric Lungs: decreased breath sounds on left Cardiac: Regular rate and rhythm, no murmurs. No JVD. Abdomen: Soft, nontender, nondistended, positive bowel sounds. Extremities: Warm, well perfused, no edema. Skin: No rashes or lesions. Neuro: Nonfocal Psych: Alert, oriented Results & Data Vital Signs (Past 12 Hours) Vital Signs Temp Pulse Pulse Resp BP BP Pulse Ox 04/01/19 08:00 74 04/01/19 07:10 36.6 C 84 18 155/65 H 94 04/01/19 06:56 78 18 92 04/01/19 03:38 36.4 C L 79 16 133/73 92 03/31/19 23:15 37.1 C 84 18 127/66 94 (1) Chest pain Chest pain type: unspecified Qualified Code(s): R07.9 - Chest pain, unspecified
--- NOTE | 2019-04-01 11:47 | Family Medicine Progress Note ---
Date of Service April 01, 2019 Assessment & Plan (1) Shortness of breath: 78-year-old male was admitted on 29 March 2019 for shortness of breath. Of note he was discharged on to [facility] for right-sided rib fractures, acute respiratory failure with pneumonia, and KEAGAN due to decreased oral intake. Shortness of breath: Patient no longer feeling short of breath at all Thoracic surgery drained 1.4 L of exudative fluid yesterday Mostly complaining of rib pain at this time. Recurrent Pleural Effusion Exudative by Light's criteria today Discussed with pulmonology, believe it may be secondary to trauma and to continue to monitor Thoracic surgery will follow patient in outpatient setting No growth on culture. Cytology pending. Possible pneumonia White count is down to 9.17 Bibasilar progressive infiltrate on chest XR On Vanc and Zosyn Pneumonia likely secondary to broken ribs and lack of chest expansion/aeration Patient has remained afebrile throughout admission blood cx NGTD [place] motion abnormality - Myocardial Infarction Medications optimized Following cards recs No evidence of any current Heart Failure Echo showing EF of 40-45% and septal wall akinesis B awilda titrating up. ASA. Once renal function stablized - add ACEi KEAGAN on CKD IV Creatinine around 2. Follow Hyperkalemia: REsolved Hypertension See above -Metoprolol 50 mg twice daily, DC'd amlodipine -Will consider starting ZARINA inhibitor if creatinine improves Anemia of chronic disease: Transfused total 3 units PRBC on previous admission. This admit Hb 8.8. Continue home ferrous sulfate. Hb 8.3 today Give RBCs for symptomatic anemia or hemoglobin less than 7 Trend daily CBC Hypertension, hyperlipidemia, CAD s/p prior stent: Continue home aspirin, amlodipine, atorvastatin, metoprolol. Vitamin B12 deficiency: Continue home cyanocobalamin. GERD: Continue home omeprazole Opioid dependence: Continue home gabapentin, mirtazapine, Oden, lidocaine patch. Multiple rib fractures: S/p fall around 23May. Likely cause of his recurrent pneumonia Anxiety: Continue home buspirone. Urinary retention: On home tamsulosin. FENa: reg diet Code Status:Full DVT PPX:SCD Dispo:Med/Surg Tele (2) Hypoxia: (3) Pleural effusion: (4) Hypomagnesemia: (5) Hypertension: (6) Hyperkalemia: (7) Hyperlipidemia LDL goal <70: (8) CAD (coronary artery disease): (9) Anemia of chronic disease: (10) Vitamin B12 deficiency: (11) GERD (gastroesophageal reflux disease): (12) Opioid dependence: (13) Fracture, ribs: (14) Chronic pain: (15) Anxiety: (16) Urinary retention: (17) Chronic renal insufficiency: (18) Tremor of right hand: Supervising Physician Co-Signing Physician Notes Resident Physician Supervision Note: I independently interviewed and examined the patient and verified the braga history and physical, reviewed labs and image studies, discussed the case with the resident Dr. Rocha and agree with the findings and care plan. Subjective Mr. Hilton is doing very well this morning, he continues to endorse chest pain, but tells me it is the same chronic chest pain he has been having for the last 18 years. His more recent chest pain resolved after the thoracentesis yesterday. No other complaints at the moment. Review of Systems Constitutional: no fever and no chills Respiratory: no cough and no dyspnea Cardiovascular: + chest pain (Improved); no dyspnea at rest and no lightheadedness Gastrointestinal: no nausea and no vomiting Physical Exam Constitutional: + cachectic and + frail appearing; no acute distress Eyes: PERRL, conjunctivae normal, anicteric sclerae Respiratory: Coarse Bronchial breath sounds, crackles bilaterally faint, good air entry globally Cardiovascular: Rate/Rhythm: regular rate and regular rhythm Heart Sounds: no click, no gallop, no murmur and no cardiac rub Extremities: no edema Chest tenderness to palpation Gastrointestinal (Abdomen): normal bowel sounds, soft, nontender, no hepatosplenomegaly Results & Data Vital Signs (Past 12 Hours) Vital Signs Temp Pulse Pulse Resp BP BP Pulse Ox 04/01/19 10:46 36.7 C 72 19 125/65 94 04/01/19 08:00 74 04/01/19 07:10 36.6 C 84 18 155/65 H 94 04/01/19 06:56 78 18 92 04/01/19 03:38 36.4 C L 79 16 133/73 92 PG Care Time/CCT Total # of Minutes Spent Total Time Spent with Patient: Total time spent is greater than 50% in coordination of care (as documented) at patient's floor/unit and/or counseling patient: Resident Activity Tracking Resident Involvement: Resident Care Provided Care Provided: Adult Hospital Medicine (1) Fracture, ribs Encounter type: subsequent encounter Fracture healing: with routine healing Fracture type: closed Laterality: right Rib fracture type: multiple ribs Qualified Code(s): S22.41XD - Multiple fractures of ribs, right side, subsequent encounter for fracture with routine healing
--- NOTE | 2019-04-01 15:22 | Surgery Progress Note ---
Date of Service April 01, 2019 Assessment & Plan (1) Pleural effusion: s/p thoracentesis -cultures are (-) to date -will await final cultures -follow serial imaging and intervene if needed Subjective Pt notes his breathing is no worse but not much better Physical Exam Constitutional: + ill appearing; no acute distress Respiratory: BS are decreased at bases Results & Data Vital Signs (Past 12 Hours) Vital Signs Temp Pulse Pulse Resp BP BP Pulse Ox 04/01/19 10:46 36.7 C 72 19 125/65 94 04/01/19 08:00 74 04/01/19 07:10 36.6 C 84 18 155/65 H 94 04/01/19 06:56 78 18 92 04/01/19 03:38 36.4 C L 79 16 133/73 92
[2019-04-01] MEDS: VANCOMYCIN HCL 750 MG in SODIUM CHLORIDE 0.9% 250 ML IV SCH (20:21)
[2019-04-01] MEDS: TAMSULOSIN HCL 0.4 MG CAP PO SCH (21:34)
[2019-04-01] MEDS: MIRTAZAPINE SOLTAB 15 MG PO SCH (21:34)
[2019-04-01] MEDS: ATORVASTATIN 40 MG TAB PO SCH (21:35)
[2019-04-01] MEDS: GABAPENTIN 600 MG TAB PO SCH (21:35)
[2019-04-02] MEDS: HYDROmorphone INJ 0.5 MG/0.5 ML SYR IV PRN ×4 (01:10→14:42)
[2019-04-02] MEDS: PIPERACILLIN/TAZOBACTAM 3.375 GM in DEXTROSE 5% 100 ML IV SCH (04:30)
[2019-04-02 06:15] LABS: Basophils # (auto) 0.05 K/uL (0-0.2); Basophils % (auto) 0.5 %; Eosinophils # (auto) 0.67 K/uL (0-0.5); Eosinophils % (auto) 7.2 %; Hematocrit (blood only) 25.7 % (42-52); Immature Granulocytes # (auto) 0.01 K/uL (0.00-0.02); Immature Granulocytes % (auto) 0.1 %; Lymphocytes # (auto) 1.52 K/uL (1.2-3.4); Lymphocytes % (auto) 16.3 %; Mean Corpuscular Hgb Conc 31.1 g/dL (32-36); Mean Corpuscular Volume 95.5 fL (80-100); Mean Platelet Volume 8.7 fL (7.4-10.4); Monocytes % (auto) 7.5 %; Neutrophils # (auto) 6.38 K/uL (1.4-6.5); Neutrophils % (auto) 68.4 %; Platelet Count 466 K/uL (130-400); RDW Coefficient of Variation 14.7 % (11.5-14.5); RDW Standard Deviation 50.9 fL (36.4-46.3); Red Blood Count 2.69 M/uL (4.7-6.1); White Blood Count 9.33 K/uL (4.8-10.8)
[2019-04-02 06:43] LABS: Calcium 8.4 mg/dl (8.5-10.1); Creatinine Clr Calc Pharmacy 30.8 ml/min; Est GFR (African American) 41.7; Potassium 4.3 mmol/L (3.5-5.1)
[2019-04-02] MEDS: ALBUT/IPRATROP 3MG/0.5MG NEB 3 ML VIAL NEB SCH (07:07)
[2019-04-02] MEDS: CHOLECALCIFEROL 1,000 UNITS TAB PO SCH (08:48)
[2019-04-02] MEDS: PANTOprazole 40 MG TAB PO SCH (08:48)
[2019-04-02] MEDS: METOPROLOL SUCC 50MG EXT REL TAB PO SCH (08:48)
[2019-04-02] MEDS: PRIMIDONE 50 MG TAB PO SCH (08:49)
[2019-04-02] MEDS: THIAMINE HCL 100 MG TAB PO SCH (08:49)
[2019-04-02] MEDS: FOLIC ACID 1 MG TAB PO SCH (08:49)
[2019-04-02] MEDS: FERROUS SULFATE 325 MG TAB PO SCH (08:49)
[2019-04-02] MEDS: ASPIRIN 81 MG ECTAB PO SCH (08:49)
[2019-04-02] MEDS: CYANOCOBALAMIN 500 MCG TABLET (VITAMIN B-12) PO SCH (08:50)
[2019-04-02] MEDS: LIDOCAINE 5% 1 PATCH TD SCH (08:50)
--- NOTE | 2019-04-02 12:52 | Cardiology Progress Note ---
Date of Service April 02, 2019 Assessment & Plan (1) Septal myocardial infarction: Subacute septal myocardial infarction occurring several weeks ago with no complications. As noted by Dr. Cornelius Montgomery, no plans for revascularization in the absence of symptoms or a high risk appearing pharmacologic nuclear stress study (which could be performed as an outpatient after his current noncardiac issues have been addressed). (2) Shortness of breath: Multifactorial, does not appear to having significant heart failure component. Neck veins are not elevated he is able to lie flat. Could potentially discharge on low-dose diuretic (perhaps hydrochlorothiazide rather than Dyazide given his tendency to hyperkalemia and renal insufficiency). This would help keep him on the dry side and reduce the tendency to fluid accumulation. (3) Chest pain: Current chest pain does not seem anginal given his duration location. ECG is more consistent with an prior infarct than an acute event. (4) Pleural effusion: Thoracentesis by Dr. Mehta. (5) CAD (coronary artery disease): Details of his prior stenting at [place] were uncertain, however he is on appropriate medication for management of coronary artery disease. (6) Hypertension: BP normotensive to minimally hypertensive, heart rate well controlled. Continue current regimen of metoprolol 50 mg p.o. BID in-hospital, could change to metoprolol succinate 100 mg daily upon discharge for patient convenience. (7) H/O heart artery stent: Review of his [facility] chart from [place] does not mention his coronary stent, likely this occurred more than a decade ago as it is not in the [facility] medical record. Subjective No change in his left-sided chest wall pain. No central or anginal-type chest pain. No dyspnea at rest. No palpitations, lightheadedness, or presyncope. Aside from his chronic chest wall pain, no complaints at the time of my visit this morning. Physical Exam Physical Exam: No distress. Sitting comfortably. Skin: No unusual lesions or ecchymosis. HEENT: Unremarkable. Neck: Jugular venous pulse at the clavicle at 90, no carotid bruits. Lungs: Dullness at the right base, breath sounds decreased overall but no obvious wheezing or crackles. No accessory muscle use, intercostal retraction, or nasal flaring. Cardiac: Regular rhythm with faint heart tones and no obvious murmur or gallop. Abdomen: Benign. Extremities: Nontender without edema. Intact peripheral pulses. Neurologic: Normal affect, nonfocal Results & Data Vital Signs (Past 12 Hours) Vital Signs Temp Pulse Resp BP Pulse Ox 04/02/19 10:32 97.9 F 77 19 145/76 H 91 04/02/19 07:36 97.9 F 81 19 153/74 H 91 04/02/19 07:07 71 16 93 04/02/19 03:51 97.7 F 73 18 137/77 95 Laboratory Results 04/01/19 04/02/19 04/02/19 05:36 05:55 05:55 WBC 9.33 Hgb 8.0 L Plt Count 466 H BUN 31 H 27 H Creatinine 2.09 H 1.79 H D Diagnostic Findings Chest x-ray 04/01/2019 results: IMPRESSION: Bibasilar parenchymal infiltrates similar to to slightly progressive from the prior study. Small left pleural effusion. (1) Chest pain Chest pain type: unspecified Qualified Code(s): R07.9 - Chest pain, unspecified
[2019-04-02] MEDS ORDERED: VANCOMYCIN TROUGH ONE (19:30)
== END 2019-04-02 15:55 | disposition home or self-care (01) | DRG 186 ==
LOC: ED 15:36 → SUATTDRO 20:54 → 2S 20:54

== ENCOUNTER 2021-07-19 15:20 | Inpatient (IN) ==
[2021-07-19 17:15] LABS: Basophils # (auto) 0.04 K/uL (0-0.2); Basophils % (auto) 0.5 %; Eosinophils # (auto) 0.21 K/uL (0-0.5); Eosinophils % (auto) 2.4 %; Hematocrit (blood only) 23.6 % (42-52); Hemoglobin 7.4 g/dL (14.0-18.0); Immature Granulocytes # (auto) 0.03 K/uL (0.00-0.02); Immature Granulocytes % (auto) 0.3 %; Lymphocytes # (auto) 1.37 K/uL (1.2-3.4); Lymphocytes % (auto) 15.9 %; Mean Corpuscular Hemoglobin 32.5 pg (25-34); Mean Corpuscular Hgb Conc 31.4 g/dL (32-36); Mean Corpuscular Volume 103.5 fL (80-100); Mean Platelet Volume 9.2 fL (7.4-10.4); Monocytes # (auto) 0.45 K/uL (0.11-0.59); Monocytes % (auto) 5.2 %; Neutrophils # (auto) 6.51 K/uL (1.4-6.5); Neutrophils % (auto) 75.7 %; Platelet Count 524 K/uL (130-400); RDW Coefficient of Variation 14.6 % (11.5-14.5); RDW Standard Deviation 55.2 fL (36.4-46.3); Red Blood Count 2.28 M/uL (4.7-6.1); White Blood Count 8.61 K/uL (4.8-10.8)
[2021-07-19 17:31] LABS: Partial Thromboplastin Ratio 0.9; Partial Thromboplastin Time 23.6 Seconds (21.0-31.0); Prothrombin Time 10.2 Seconds (9.0-12.0)
[2021-07-19 17:34] LABS: Alanine Aminotransferase 17 U/L (12-78); Albumin Level 2.3 gm/dl (3.4-5.0); Aspartate Aminotransferase 14 U/L (15-37); BUN Creatinine Ratio 18.1 (10-20); Blood Urea Nitrogen 39 mg/dl (7-18); Calcium 8.4 mg/dl (8.5-10.1); Carbon Dioxide 23 mmol/L (21-32); Chloride 111 mmol/L (98-107); Est GFR (African American) 33.1 ml/min; Est GFR (Non-African American) 28.6 ml/min; Glucose 101 mg/dl (70-99); Magnesium 1.6 mg/dl (1.8-2.4); Sodium 140 mmol/L (136-145)
[2021-07-19 17:38] LABS: Albumin Globulin Ratio 0.5 (0.9-2); Alkaline Phosphatase 139 U/L (45-117); Bilirubin,Total < 0.1 mg/dl (0.2-1); Globulin 4.3 gm/dl (2.5-4.0); Total Protein 6.6 gm/dl (6.4-8.2); Troponin I < 0.015 ng/ml (0-0.045)
[2021-07-19 17:39] LABS: Poikilocytosis Present
[2021-07-19] MEDS ORDERED: HYDROCODONE/ACETAMOPHEN 5/325MG TAB PO STA (19:28)
--- NOTE | 2021-07-19 19:29 | XRay Report ---
XR chest 1V portable CLINICAL HISTORY: SOB TECHNIQUE: Single frontal radiograph of the chest was obtained. Comparison: Comparison is made to chest 2 views 04/17/2019 FINDINGS: No lines and tubes are seen. Cardiomegaly is noted. Calcification of the aortic arch is seen. Diffuse edematous changes are seen. There is blunting of the bilateral costophrenic angles. IMPRESSION: Possible bilateral pleural effusions. No airspace opacities are seen. ACT 112: Negative or not required by law. Electronically signed by: Bobo Donaldson M.D. 07/19/2021 7:27 PM
[2021-07-19] MEDS ORDERED: SODIUM CHLORIDE 0.9% 1000ML 500 ML IV ONE (19:39)
[2021-07-19] MEDS ORDERED: SODIUM CHLORIDE 0.9% 1000ML 1,000 ML IV STA (19:39)
[2021-07-19] MEDS ORDERED: MAGNESIUM SULFATE / D5W 1 GM/100 ML BAG IV STA (19:39)
--- NOTE | 2021-07-19 20:05 | Emergency Department Note ---
Impression & Plan SOB (shortness of breath), Hypertension, Anemia, Congestive heart failure ED Provider Note INFORMANT: Patient ED PROVIDER(S): Francisco Marquez MD CHIEF COMPLAINT: Shortness of breath PLAN: Disposition: Admitted Condition: Good Outpatient prescription management: none Referral: None MEDICAL DECISION MAKING: Patient presented because of shortness of breath. He also notes occasional pa crystal attacks. He is concerned he is not able to take care of himself. A work-up was initiated. He was found to have a normal ECG. Patient's CBC showed a significant anemia. He was typed and screened. The patient had an unremarkable chemistry panel and troponin. BNP was markedly elevated concerning for CHF. Chest x-ray shows some congestive change but no significant we will treat her pneumothorax. The patient did request a dose of his oral pain medication as he had missed this waiting in the waiting room. He was given a single dose. Patient was then becoming more anxious and then acutely short of breath. He was given a dose of Ativan. He seemed to be wheezy somewhat on my reevaluation. He was given a DuoNeb and Solu-Medrol. This seemed to help calm him down. He then was noted to have a elevated BNP concerning for CHF. He was given a dose of IV Lasix and Nitropaste. The patient will need further management in the hospital. Consultation was made with Dr. Olivia of the hospitalist service. Patient was evaluated in the ER for further management. Triage Nursing notes reviewed and agree them. Vital Signs: reviewed and remarkable for no significant abnormalities Differential diagnosis: Infection, dehydration, metabolic abnormality, hypo/hyperglycemia, electrolyte disturbance, anemia, hypoxia, cardiac sources, intracerebral event, toxicologic, neurologic, as well as other pathologies. Diagnostics interpreted by me: EC Lead ECG performed and revealed Normal sinus rhythym at 80, normal Brave, QRS normal. No elevation or depression. No PACs or PVCs ECG #2: (Indication shortness of breath, acute) 12 Lead ECG performed and revealed Normal sinus rhythym at 95, normal Brave, QRS normal. No elevation or depression. No PACs or PVCs Cardiac Monitoring: Cardiac monitoring ordered by me: The patient was placed on continuous cardiac monitoring and observed. It revealed a normal sinus rhythm at 85 beats per minute without ectopy or evidence of dysrhythmia. Imaging studies: Chest x-ray as above. HPI: The patient is a 81 year old male who presents to the Emergency Room with complaints of shortness of breath. This started over the last week and is worsening. The patient also notes the following associated symptoms, fatigue, global weakness, chronic pain, panic attacks, difficulty taking care of himself. The patient has taken no new medication for relieving factors. Current pain is rated as 7/10. Patient notes he has diffuse myalgias and arthralgias which is why he takes chronic pain medicine. He has not taken it today. He does note history of chronic anemia. No recent transfusions. Pt denies LOC, headache, fevers, chills, diaphoresis, visual changes, neck pain, chest pain, nausea, vomiting, abdominal pain, back pain, melena, hematochezia, urinary symptoms, numbness,lymphadenopathy, rash, or other complaints. ROS: See above HPI for pertinent positives & negatives. A total of 10 systems reviewed and were otherwise negative. PAST MEDICAL HISTORY:See Below , chronic kidney disease, hypertension, opioid dependence PAST SURGICAL HISTORY:See Below, FAMILY HISTORY:See Below SOCIAL HISTORY:See Below, lives with son. Retired. HOME MEDICATIONS:See Below ALLERGIES:See Below VITALS:See Below PHYSICAL EXAMINATION: GENERAL: Awake, alert, uncomfortable appearing, in no distress HENT: Normocephalic, atraumatic. Oropharynx unremarkable. EYES: Pale conjunctiva. Sclera non-icteric. NECK: Inspection normal. Non-tender. Supple. No nuchal rigidity. FROM. No masses. RESPIRATORY: Clear to auscultation. No wheezes. No rales. Normal respiratory effort. CARDIAC: Normal rate. Normal rhythm. No murmurs. No rubs. Extremities warm and well perfused. Pulses equal. No JVD. GI: Soft, non-distended. No tenderness to palpation. No rebound or guarding. No masses. RECTAL: Deferred. MUSCULOSKELETAL: Atraumatic. Generalized muscular atrophy. Chest examination reveals no tenderness. The back is symmetrical on inspection without obvious abnormality. There is no CVA tenderness to palpation. No joint edema. LOWER EXTREMITIES: Calves are equal size bilaterally and non-tender. No edema. No discoloration. NEURO: Normal sensorium. Generally weak but no no focal sensory or motor deficits noted. SKIN: No rash or jaundice noted. Franicsco Marquez MD Past Med/Surg History Medical History (Updated 07/20/21 @ 04:12 by Francisco Marquez MD) AAA (abdominal aortic aneurysm) Anemia of chronic disease Anxiety CAD (coronary artery disease) PTCA with stent of RCA 1994 Chronic pain Chronic renal insufficiency Essential tremor GERD (gastroesophageal reflux disease) Hyperlipidemia LDL goal <70 Hypertension Lower urinary tract symptoms (LUTS) Multiple rib fractures Opioid dependence treated with opiates for chronic low back pain for 10+ years Septal myocardial infarction Vitamin B12 deficiency Surgical History H/O heart artery stent (~1994) Family History Denies family history of Ovarian cancer Prostate cancer Myocardial infarction Breast cancer Colorectal cancer Social History Smoking Status: Current every day smoker Tobacco Type: Cigarettes Cigarettes Per Day: 1/2 pack; Second Hand Exposure: No; Do You Dip or Chew Tobacco: No; Tobacco Cessation Education Requested by Patient: No Hx Alcohol Use: No Hx Substance Use: No Preferred Language: Wallisian Communication Ability: Effective Visual Impairment: No Limitations Hearing Ability: Normal Osha Inspector Required: No Beliefs That Will Affect Care: None marital status: / Current Living Situation: Alone Current Living Situation Comment: Alone at home in apartment after of in March current occupational status: 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 Other Information That Helps Us Care for You: Yes (Pt desires psych consult) Feels Safe at Home: Yes Childhood Exposure to Second-Hand Smoke: Yes Dental Care, Regularly: No Physical Activity Frequency: Does not Exercise Seatbelt Use: always Sunscreen Use: No (doesn't really go outside ) Assistive Devices: Walker Allergies Allergies Allergy/AdvReac Type Severity Reaction Status Date / Time cefuroxime Allergy Unknown rash Verified 07/19/21 20:53 lisinopril Allergy itching Verified 07/19/21 20:53 Home Meds Home Medications Medication Instructions Recorded Confirmed aspirin 81 mg tablet,delayed 81 mg PO QAM 05/06/19 07/19/21 release cyanocobalamin (vitamin B-12) 1,000 mcg PO QAM 05/06/19 07/19/21 1,000 mcg tablet (Vitamin B-12) nitroglycerin 0.4 mg sublingual 0.4 mg SUBLINGUAL DIRECTED PRN 05/06/19 07/19/21 tablet multivitamin (Daily Multi-Vitamin) 1 tab PO DAILY 05/28/21 07/19/21 escitalopram oxalate 5 mg tablet 5 mg PO DAILY 07/19/21 07/19/21 Previous Rx's Medication Instructions Recorded ferrous sulfate 325 mg (65 mg 325 mg PO QAM #30 tab 03/21/19 iron) tablet,delayed release folic acid 1 mg tablet 1 mg PO QAM #30 tab 03/21/19 thiamine HCl (vitamin B1) 100 mg 100 mg PO QAM #30 tab 03/21/19 tablet (Vitamin B-1) primidone 50 mg tablet 50 mg PO BID #180 tab 10/12/20 omeprazole 40 mg capsule,delayed 40 mg PO DAILY #90 cap 12/30/20 release amlodipine 5 mg tablet 5 mg PO DAILY #90 tab 05/26/21 atorvastatin 40 mg tablet 40 mg PO DAILY #90 tab 05/26/21 metoprolol succinate 100 mg 100 mg PO DAILY #90 tab 05/26/21 tablet,extended release 24 hr (Toprol XL) mirtazapine 30 mg tablet 30 mg PO QPM #90 tab 05/26/21 tamsulosin 0.4 mg capsule 0.4 mg PO QPM #90 cap 05/26/21 hydrocodone 10 mg-acetaminophen 2 tab PO Q6H PRN #240 tab MDD 8 06/28/21 325 mg tablet tabs lorazepam 0.5 mg tablet 0.5 mg PO BID PRN #60 tab 06/28/21 Results & Data (ED) Vital Signs Vital Signs - 24 hr 07/19/21 15:23 07/19/21 19:41 07/19/21 20:07 Temperature 36.8 C Temperature Source Skin Pulse Rate 90 80 95 H Pulse Rate [Apical] 80 Pulse Rate from SpO2 Sensor 96 H Respiratory Rate 18 16 22 Blood Pressure 192/77 H Blood Pressure [Right Arm] 177/105 H Blood Pressure Mean 115 Blood Pressure Mean [Right Arm] 129 Blood Pressure Position [Right Arm] Sitting Pulse Oximetry 96 97 93 Oxygen Delivery Method Room Air Room Air Sepsis Recent Fever Within 48 Hours No Sepsis New/Unexplained Change in Mental Status No Sepsis Action Taken by Nursing No Action Required 07/19/21 20:10 07/19/21 20:20 07/19/21 20:30 Temperature Temperature Source Pulse Rate 108 H 120 H 107 H Pulse Rate [Apical] Pulse Rate from SpO2 Sensor 103 H 123 H 98 H Respiratory Rate 19 20 22 Blood Pressure 178/112 H Blood Pressure [Right Arm] Blood Pressure Mean 134 Blood Pressure Mean [Right Arm] Blood Pressure Position [Right Arm] Pulse Oximetry 96 100 98 Oxygen Delivery Method Sepsis Recent Fever Within 48 Hours Sepsis New/Unexplained Change in Mental Status Sepsis Action Taken by Nursing 07/19/21 20:40 07/19/21 20:50 07/19/21 21:00 Temperature Temperature Source Pulse Rate 91 H 92 H 89 Pulse Rate [Apical] Pulse Rate from SpO2 Sensor 91 H 93 H 89 Respiratory Rate 23 17 13 Blood Pressure 186/102 H Blood Pressure [Right Arm] Blood Pressure Mean 130 Blood Pressure Mean [Right Arm] Blood Pressure Position [Right Arm] Pulse Oximetry 96 95 93 Oxygen Delivery Method Sepsis Recent Fever Within 48 Hours Sepsis New/Unexplained Change in Mental Status Sepsis Action Taken by Nursing 07/19/21 21:10 07/19/21 21:20 07/19/21 21:29 Temperature Temperature Source Pulse Rate 94 H 91 H Pulse Rate [Apical] 94 H Pulse Rate from SpO2 Sensor 93 H 91 H Respiratory Rate 20 16 22 Blood Pressure Blood Pressure [Right Arm] 187/96 H Blood Pressure Mean Blood Pressure Mean [Right Arm] 126 Blood Pressure Position [Right Arm] Pulse Oximetry 92 92 91 Oxygen Delivery Method Room Air Sepsis Recent Fever Within 48 Hours Sepsis New/Unexplained Change in Mental Status Sepsis Action Taken by Nursing 07/19/21 21:30 07/19/21 21:40 07/19/21 21:50 Temperature Temperature Source Pulse Rate 95 H 105 H 97 H Pulse Rate [Apical] Pulse Rate from SpO2 Sensor 107 H Respiratory Rate 24 18 20 Blood Pressure 187/100 H Blood Pressure [Right Arm] Blood Pressure Mean 129 Blood Pressure Mean [Right Arm] Blood Pressure Position [Right Arm] Pulse Oximetry 90 83 L Oxygen Delivery Method Sepsis Recent Fever Within 48 Hours Sepsis New/Unexplained Change in Mental Status Sepsis Action Taken by Nursing 07/19/21 22:00 07/19/21 22:10 07/19/21 22:20 Temperature Temperature Source Pulse Rate 97 H 100 H 83 Pulse Rate [Apical] Pulse Rate from SpO2 Sensor 98 H 99 H 85 Respiratory Rate 12 22 15 Blood Pressure Blood Pressure [Right Arm] Blood Pressure Mean Blood Pressure Mean [Right Arm] Blood Pressure Position [Right Arm] Pulse Oximetry 86 L 92 94 Oxygen Delivery Method Sepsis Recent Fever Within 48 Hours Sepsis New/Unexplained Change in Mental Status Sepsis Action Taken by Nursing 07/19/21 22:30 07/19/21 22:40 07/19/21 22:50 Temperature Temperature Source Pulse Rate 86 90 92 H Pulse Rate [Apical] Pulse Rate from SpO2 Sensor 84 87 91 H Respiratory Rate 15 17 16 Blood Pressure 170/85 H Blood Pressure [Right Arm] Blood Pressure Mean 113 Blood Pressure Mean [Right Arm] Blood Pressure Position [Right Arm] Pulse Oximetry 92 91 90 Oxygen Delivery Method Sepsis Recent Fever Within 48 Hours Sepsis New/Unexplained Change in Mental Status Sepsis Action Taken by Nursing 07/19/21 23:00 07/19/21 23:10 07/19/21 23:12 Temperature Temperature Source Pulse Rate 114 H 89 89 Pulse Rate [Apical] Pulse Rate from SpO2 Sensor 116 H 90 Respiratory Rate 26 H 18 20 Blood Pressure 192/130 H 192/130 H Blood Pressure [Right Arm] Blood Pressure Mean 150 Blood Pressure Mean [Right Arm] Blood Pressure Position [Right Arm] Pulse Oximetry 92 96 94 Oxygen Delivery Method Room Air Sepsis Recent Fever Within 48 Hours Sepsis New/Unexplained Change in Mental Status Sepsis Action Taken by Nursing 07/19/21 23:39 Temperature Temperature Source Pulse Rate 87 Pulse Rate [Apical] Pulse Rate from SpO2 Sensor 88 Respiratory Rate 21 Blood Pressure Blood Pressure [Right Arm] Blood Pressure Mean Blood Pressure Mean [Right Arm] Blood Pressure Position [Right Arm] Pulse Oximetry 96 Oxygen Delivery Method Sepsis Recent Fever Within 48 Hours Sepsis New/Unexplained Change in Mental Status Sepsis Action Taken by Nursing Laboratory Data Result diagrams: 07/19/21 23:10 07/19/21 17:05 Lab Results 07/19/21 07/19/21 07/19/21 Range/Units 16:52 16:52 17:05 WBC 8.61 (4.8-10.8) K/uL RBC 2.28 L (4.7-6.1) M/uL Hgb 7.4 L (14.0-18.0) g/dL Hct 23.6 L (42-52) % MCV 103.5 H (80-100) fL MCH 32.5 (25-34) pg MCHC 31.4 L (32-36) g/dL RDW Std Deviation 55.2 H (36.4-46.3) fL RDW Coeff of Lucas 14.6 H (11.5-14.5) % Plt Count 524 H (130-400) K/uL MPV 9.2 (7.4-10.4) fL Immature Gran % (Auto) 0.3 % Neut % (Auto) 75.7 % Lymph % (Auto) 15.9 % [place] % (Auto) 5.2 % Eos % (Auto) 2.4 % Baso % (Auto) 0.5 % Neut # (Auto) 6.51 H (1.4-6.5) K/uL Lymph # (Auto) 1.37 (1.2-3.4) K/uL [place] # (Auto) 0.45 (0.11-0.59) K/uL Eos # (Auto) 0.21 (0-0.5) K/uL Baso # (Auto) 0.04 (0-0.2) K/uL Immature Gran # (Auto) 0.03 H (0.00-0.02) K/uL Poikilocytosis Present PT 10.2 (9.0-12.0) Seconds INR 1.0 (0.9-1.1) APTT 23.6 (21.0-31.0) Seconds PTT Ratio 0.9 Sodium 140 (136-145) mmol/L Potassium 5.0 (3.5-5.1) mmol/L Chloride 111 H (98-107) mmol/L Carbon Dioxide 23 (21-32) mmol/L Anion Gap 6.0 (3-11) BUN 39 H (7-18) mg/dl Creatinine 2.13 H (0.6-1.4) mg/dl Est Cr Clr Drug Dosing Not Reportable Est GFR ( Amer) 33.1 ml/min Est GFR (Non-Af Amer) 28.6 ml/min BUN/Creatinine Ratio 18.1 (10-20) Glucose 101 H (70-99) mg/dl Calcium 8.4 L (8.5-10.1) mg/dl Magnesium 1.6 L (1.8-2.4) mg/dl Iron (35-175) mcg/dl TIBC (250-450) mcg/dl Total Bilirubin < 0.1 L (0.2-1) mg/dl AST 14 L (15-37) U/L ALT 17 (12-78) U/L Alkaline Phosphatase 139 H (45-117) U/L Troponin I < 0.015 (0-0.045) ng/ml NT-Pro-B Natriuret Pep (0-1800) pg/ml Total Protein 6.6 (6.4-8.2) gm/dl Albumin 2.3 L (3.4-5.0) gm/dl Globulin 4.3 H (2.5-4.0) gm/dl Albumin/Globulin Ratio 0.5 L (0.9-2) Vitamin B12 (193-986) pg/ml Folate (>5.38) ng/ml Urine Color Urine Appearance (Clear) Urine pH (4.5-7.5) Ur Specific [place] (1.000-1.030) Urine Protein (Negative) Urine Glucose (UA) (Negative) Urine Ketones (Negative) Urine Blood (Negative) Urine Nitrite (Negative) Urine Bilirubin (Negative) Urine Urobilinogen (Negative) Ur Leukocyte Esterase (Negative) Urine WBC (Auto) (0-5) /hpf Urine RBC (Auto) (0-4) /hpf U Hyaline Cast (Auto) (0-5) /lpf U Epithel Cells (Auto) (0-5) /lpf Urine Bacteria (Auto) (Negative) Urine Mucus (None Prsent) Urine Yeast (None Prsent) COVID-19 Eval Order SARS-CoV-2 (PCR) (Negative) Blood Type Antibody Screen Crossmatch 07/19/21 07/19/21 07/19/21 Range/Units 17:05 19:27 19:27 WBC (4.8-10.8) K/uL RBC (4.7-6.1) M/uL Hgb (14.0-18.0) g/dL Hct (42-52) % MCV (80-100) fL MCH (25-34) pg MCHC (32-36) g/dL RDW Std Deviation (36.4-46.3) fL RDW Coeff of Lucas (11.5-14.5) % Plt Count (130-400) K/uL MPV (7.4-10.4) fL Immature Gran % (Auto) % Neut % (Auto) % Lymph % (Auto) % [place] % (Auto) % Eos % (Auto) % Baso % (Auto) % Neut # (Auto) (1.4-6.5) K/uL Lymph # (Auto) (1.2-3.4) K/uL [place] # (Auto) (0.11-0.59) K/uL Eos # (Auto) (0-0.5) K/uL Baso # (Auto) (0-0.2) K/uL Immature Gran # (Auto) (0.00-0.02) K/uL Poikilocytosis PT (9.0-12.0) Seconds INR (0.9-1.1) APTT (21.0-31.0) Seconds PTT Ratio Sodium (136-145) mmol/L Potassium (3.5-5.1) mmol/L Chloride (98-107) mmol/L Carbon Dioxide (21-32) mmol/L Anion Gap (3-11) BUN (7-18) mg/dl Creatinine (0.6-1.4) mg/dl Est Cr Clr Drug Dosing Est GFR ( Amer) ml/min Est GFR (Non-Af Amer) ml/min BUN/Creatinine Ratio (10-20) Glucose (70-99) mg/dl Calcium (8.5-10.1) mg/dl Magnesium (1.8-2.4) mg/dl Iron (35-175) mcg/dl TIBC (250-450) mcg/dl Total Bilirubin (0.2-1) mg/dl AST (15-37) U/L ALT (12-78) U/L Alkaline Phosphatase (45-117) U/L Troponin I (0-0.045) ng/ml NT-Pro-B Natriuret Pep 17160 H (0-1800) pg/ml Total Protein (6.4-8.2) gm/dl Albumin (3.4-5.0) gm/dl Globulin (2.5-4.0) gm/dl Albumin/Globulin Ratio (0.9-2) Vitamin B12 (193-986) pg/ml Folate (>5.38) ng/ml Urine Color Urine Appearance (Clear) Urine pH (4.5-7.5) Ur Specific [place] (1.000-1.030) Urine Protein (Negative) Urine Glucose (UA) (Negative) Urine Ketones (Negative) Urine Blood (Negative) Urine Nitrite (Negative) Urine Bilirubin (Negative) Urine Urobilinogen (Negative) Ur Leukocyte Esterase (Negative) Urine WBC (Auto) (0-5) /hpf Urine RBC (Auto) (0-4) /hpf U Hyaline Cast (Auto) (0-5) /lpf U Epithel Cells (Auto) (0-5) /lpf Urine Bacteria (Auto) (Negative) Urine Mucus (None Prsent) Urine Yeast (None Prsent) COVID-19 Eval Order Covid19 at [facility] SARS-CoV-2 (PCR) NEGATIVE (Negative) Blood Type Antibody Screen Crossmatch 07/19/21 07/19/21 07/19/21 Range/Units 20:09 23:09 23:10 WBC (4.8-10.8) K/uL RBC (4.7-6.1) M/uL Hgb 7.5 L (14.0-18.0) g/dL Hct 23.4 L (42-52) % MCV (80-100) fL MCH (25-34) pg MCHC (32-36) g/dL RDW Std Deviation (36.4-46.3) fL RDW Coeff of Lucas (11.5-14.5) % Plt Count (130-400) K/uL MPV (7.4-10.4) fL Immature Gran % (Auto) % Neut % (Auto) % Lymph % (Auto) % [place] % (Auto) % Eos % (Auto) % Baso % (Auto) % Neut # (Auto) (1.4-6.5) K/uL Lymph # (Auto) (1.2-3.4) K/uL [place] # (Auto) (0.11-0.59) K/uL Eos # (Auto) (0-0.5) K/uL Baso # (Auto) (0-0.2) K/uL Immature Gran # (Auto) (0.00-0.02) K/uL Poikilocytosis PT (9.0-12.0) Seconds INR (0.9-1.1) APTT (21.0-31.0) Seconds PTT Ratio Sodium (136-145) mmol/L Potassium (3.5-5.1) mmol/L Chloride (98-107) mmol/L Carbon Dioxide (21-32) mmol/L Anion Gap (3-11) BUN (7-18) mg/dl Creatinine (0.6-1.4) mg/dl Est Cr Clr Drug Dosing Est GFR ( Amer) ml/min Est GFR (Non-Af Amer) ml/min BUN/Creatinine Ratio (10-20) Glucose (70-99) mg/dl Calcium (8.5-10.1) mg/dl Magnesium (1.8-2.4) mg/dl Iron (35-175) mcg/dl TIBC (250-450) mcg/dl Total Bilirubin (0.2-1) mg/dl AST (15-37) U/L ALT (12-78) U/L Alkaline Phosphatase (45-117) U/L Troponin I (0-0.045) ng/ml NT-Pro-B Natriuret Pep (0-1800) pg/ml Total Protein (6.4-8.2) gm/dl Albumin (3.4-5.0) gm/dl Globulin (2.5-4.0) gm/dl Albumin/Globulin Ratio (0.9-2) Vitamin B12 (193-986) pg/ml Folate (>5.38) ng/ml Urine Color Yellow Urine Appearance Clear (Clear) Urine pH 5.0 (4.5-7.5) Ur Specific [place] 1.014 (1.000-1.030) Urine Protein 3+ H (Negative) Urine Glucose (UA) Negative (Negative) Urine Ketones Negative (Negative) Urine Blood Negative (Negative) Urine Nitrite Negative (Negative) Urine Bilirubin Negative (Negative) Urine Urobilinogen Negative (Negative) Ur Leukocyte Esterase Negative (Negative) Urine WBC (Auto) 5-10 H (0-5) /hpf Urine RBC (Auto) 0-4 (0-4) /hpf U Hyaline Cast (Auto) 1-5 (0-5) /lpf U Epithel Cells (Auto) >30 H (0-5) /lpf Urine Bacteria (Auto) Negative (Negative) Urine Mucus Present A (None Prsent) Urine Yeast Budding A (None Prsent) COVID-19 Eval Order SARS-CoV-2 (PCR) (Negative) Blood Type O Positive Antibody Screen NEGATIVE Crossmatch See Detail 07/19/21 07/19/21 Range/Units 23:10 23:10 WBC (4.8-10.8) K/uL RBC (4.7-6.1) M/uL Hgb (14.0-18.0) g/dL Hct (42-52) % MCV (80-100) fL MCH (25-34) pg MCHC (32-36) g/dL RDW Std Deviation (36.4-46.3) fL RDW Coeff of Lucas (11.5-14.5) % Plt Count (130-400) K/uL MPV (7.4-10.4) fL Immature Gran % (Auto) % Neut % (Auto) % Lymph % (Auto) % [place] % (Auto) % Eos % (Auto) % Baso % (Auto) % Neut # (Auto) (1.4-6.5) K/uL Lymph # (Auto) (1.2-3.4) K/uL [place] # (Auto) (0.11-0.59) K/uL Eos # (Auto) (0-0.5) K/uL Baso # (Auto) (0-0.2) K/uL Immature Gran # (Auto) (0.00-0.02) K/uL Poikilocytosis PT (9.0-12.0) Seconds INR (0.9-1.1) APTT (21.0-31.0) Seconds PTT Ratio Sodium (136-145) mmol/L Potassium (3.5-5.1) mmol/L Chloride (98-107) mmol/L Carbon Dioxide (21-32) mmol/L Anion Gap (3-11) BUN (7-18) mg/dl Creatinine (0.6-1.4) mg/dl Est Cr Clr Drug Dosing Est GFR ( Amer) ml/min Est GFR (Non-Af Amer) ml/min BUN/Creatinine Ratio (10-20) Glucose (70-99) mg/dl Calcium (8.5-10.1) mg/dl Magnesium (1.8-2.4) mg/dl Iron 49 (35-175) mcg/dl TIBC 259 (250-450) mcg/dl Total Bilirubin (0.2-1) mg/dl AST (15-37) U/L ALT (12-78) U/L Alkaline Phosphatase (45-117) U/L Troponin I (0-0.045) ng/ml NT-Pro-B Natriuret Pep (0-1800) pg/ml Total Protein (6.4-8.2) gm/dl Albumin (3.4-5.0) gm/dl Globulin (2.5-4.0) gm/dl Albumin/Globulin Ratio (0.9-2) Vitamin B12 > 2000 H (193-986) pg/ml Folate > 20.00 (>5.38) ng/ml Urine Color Urine Appearance (Clear) Urine pH (4.5-7.5) Ur Specific [place] (1.000-1.030) Urine Protein (Negative) Urine Glucose (UA) (Negative) Urine Ketones (Negative) Urine Blood (Negative) Urine Nitrite (Negative) Urine Bilirubin (Negative) Urine Urobilinogen (Negative) Ur Leukocyte Esterase (Negative) Urine WBC (Auto) (0-5) /hpf Urine RBC (Auto) (0-4) /hpf U Hyaline Cast (Auto) (0-5) /lpf U Epithel Cells (Auto) (0-5) /lpf Urine Bacteria (Auto) (Negative) Urine Mucus (None Prsent) Urine Yeast (None Prsent) COVID-19 Eval Order SARS-CoV-2 (PCR) (Negative) Blood Type Antibody Screen Crossmatch Administered Medications Acetaminophen (Acetaminophen 325 Mg Tab) 650 mg PO Q4H PRN PRN Reason: pain/fever Stop: 08/19/21 00:09 Last Admin: 07/20/21 04:02 Dose: 650 mg Documented by: [id number] Hydrocodone Bitart/Acetaminophen (Hydrocodone/Acetaminophen 10/325 Tab) 2 tab PO Q6H PRN PRN Reason: pain Stop: 08/03/21 00:09 Last Admin: 07/20/21 00:47 Dose: 2 tab Documented by: [id number] Discontinued Medications Hydrocodone Bitart/Acetaminophen (Hydrocodone/Acetamophen 5/325mg Tab) 1 tab PO NOW STA Stop: 07/19/21 19:29 Last Admin: 07/19/21 19:40 Dose: 1 tab Documented by: [id number] Albuterol (Albut/Ipratrop 3mg/0.5mg Neb 3 Ml Vial) Confirm Administered Dose 3 ml .ROUTE .STK-MED ONE Stop: 07/19/21 20:17 Last Admin: 07/19/21 20:31 Dose: 3 ml Documented by: [id number] Albuterol (Albut/Ipratrop 3mg/0.5mg Neb 3 Ml Vial) Confirm Administered Dose 3 ml .ROUTE .STK-MED ONE Stop: 07/19/21 20:31 Last Admin: 07/19/21 20:34 Dose: Not Given Documented by: [id number] Furosemide (Furosemide 40 Mg/4 Ml Vial) 40 mg IV NOW STA Stop: 07/19/21 20:57 Last Admin: 07/19/21 21:16 Dose: 40 mg Documented by: [id number] Sodium Chloride (Nss 1000ml) 500 mls @ 999 mls/hr IV .Q31M ONE Stop: 07/19/21 20:09 Last Infusion: 07/19/21 20:32 Dose: 0 mls/hr Documented by: [id number] Admin: 07/19/21 19:52 Dose: 999 mls/hr Documented by: [id number] Sodium Chloride (Nss 1000ml) 1,000 mls @ 125 mls/hr IV .Q8H STA Stop: 07/20/21 03:38 Last Infusion: 07/20/21 00:33 Dose: 0 mls/hr Documented by: [id number] Admin: 07/19/21 20:27 Dose: 125 mls/hr Documented by: [id number] Magnesium Sulfate/Dextrose (Magnesium Sulfate / D5w) 1 gm in 100 mls @ 100 mls/hr IV NOW STA Stop: 07/19/21 20:38 Last Infusion: 07/19/21 20:31 Dose: 0 mls/hr Documented by: [id number] Admin: 07/19/21 19:52 Dose: 100 mls/hr Documented by: [id number] Lorazepam (Lorazepam 1 Mg Tab) 1 mg SL NOW STA Stop: 07/19/21 20:13 Last Admin: 07/19/21 20:31 Dose: 1 mg Documented by: [id number] Methylprednisolone (Methylprednisolone 125 Mg/2 Ml Vial) 125 mg IV NOW STA Stop: 07/19/21 20:21 Last Admin: 07/19/21 20:27 Dose: 125 mg Documented by: [id number] Mirtazapine (Mirtazapine Tab 15 Mg Tab) 30 mg PO NOW ONE Stop: 07/20/21 03:39 Last Admin: 07/20/21 04:08 Dose: 30 mg Documented by: [id number] Nitroglycerin (Nitroglycerin 2% Ointment 30gm Tube) 0.5 inch EXT NOW STA Stop: 07/19/21 20:57 Last Admin: 07/19/21 21:16 Dose: 0.5 inch Documented by: [id number] Imaging Data Radiologist's Impression: Chest X-Ray 07/19/21 16:47 XR chest 1V portable CLINICAL HISTORY: SOB TECHNIQUE: Single frontal radiograph of the chest was obtained. Comparison: Comparison is made to chest 2 views 04/17/2019 FINDINGS: No lines and tubes are seen. Cardiomegaly is noted. Calcification of the aortic arch is seen. Diffuse edematous changes are seen. There is blunting of the bilateral costophrenic angles. IMPRESSION: Possible bilateral pleural effusions. No airspace opacities are seen. ACT 112: Negative or not required by law. Electronically signed by: Bobo Donaldson M.D. 07/19/2021 7:27 PM Discharge Plan Visit Data Chief Complaint: Respiratory Problems Stated Complaint: PAIN AND DIFFICULTY BREATHING ED Provider: Francisco Marquez Discharge Problem: SOB (shortness of breath), Hypertension, Anemia, Congestive heart failure Patient Disposition: Admitted As Inpatient Discharge Instructions Interventions: ED Discharge Assessment Last Done: 07/19/21 23:12
[2021-07-19] MEDS ORDERED: LORazepam 1 MG TAB SL STA (20:12)
[2021-07-19] MEDS ORDERED: ALBUT/IPRATROP 3MG/0.5MG NEB 3 ML VIAL ONE ×2 (20:16→20:30)
[2021-07-19] MEDS ORDERED: methylPREDNISolone 125 MG/2 ML VIAL IV STA (20:20)
[2021-07-19] MEDS ORDERED: NITROGLYCERIN 2% OINTMENT 30GM TUBE EXT STA (20:56)
[2021-07-19] MEDS ORDERED: FUROSEMIDE 40 MG/4 ML VIAL IV STA (20:56)
--- NOTE | 2021-07-19 20:58 | History & Physical Report ---
Date of Service July 19, 2021 Assessment & Plan (1) Severe protein-calorie malnutrition: Plan: Usman Hilton is a 81-year-old male with past medical history significant for coronary artery disease s/p stent in 1994, hyperlipidemia, history of abdominal aortic aneurysm, chronic pain with chronic opioid use, GERD, anxiety, hypertension; who presents with complaints of worsening shortness of breath and panic attacks over the last several months since the of his in March. Severe protein calorie malnutrition: -Given prominence of muscular wasting across temples, supraclavicular, and interdigital in the setting of patient self endorsed decreased oral intake over the last several months -Albumin 2.3, magnesium 1.6, calcium 8.4 -Likely contributing to weakness patient notices -Encouraged oral intake of 3 meals consistently each day -Continue Remeron which may assist with increasing appetite Weakness: -Uncertain etiology of weakness with multiple likely contributing factors -Likely sources from adjustment disorder/depression in the setting of recent passing of , [place] severe protein calorie malnutrition -PT/OT evaluation in a.m. Anemia: -Hgb 7.4 in ED with recheck of 7.5 -MCV 103.5 -Patient at home on folic acid, B12, and iron supplementation -Folate >20, B12 >2000 -Typed and screened in ED will transfuse 1 unit given CAD history Elevated BNP: -BNP 42753 -no clinical signs of volume overload, with trace edema of lower extremities li jammie secondary to malnutrition -received Lasix 40mg IV in ED -last Echo in 2018 demonstrating wall motion abnormalities with EF of 40-45% -repeat echo in AM Anxiety: -Patient was being weaned off of Lexapro as outpatient with uptake of Remeron to 30 mg daily -Previously unsuccessful trials of BuSpar, moderate success with as needed use of Ativan 0.5 mg Chronic pain: -Patient with greater than 20-year history of opiate use -Continue home [place] regimen of 20 mg every 6 hours as needed Hypertension: -Continue home hypertensive regimen Diet: Heart healthy CODE STATUS: Full code DVT prophylaxis: Hold chemical prophylaxis in the setting of unknown anemia, encourage use of SCDs (2) SOB (shortness of breath): (3) Chronic pain: (4) Anemia: (5) Hypertension: (6) Anxiety: (7) CAD (coronary artery disease): (8) AAA (abdominal aortic aneurysm): History of Present Illness Primary Care Provider: Юлия Harvey MD Usman Hilton is a 81-year-old male with past medical history significant for coronary artery disease s/p stent in 1994, hyperlipidemia, history of abdominal aortic aneurysm, chronic pain with chronic opioid use, GERD, anxiety, hypertension; who presents with complaints of worsening shortness of breath and panic attacks over the last several months since the of his in March. Over the last several months is been working with his PCP in order to continue to adjust to life following his 's passing. Throughout this time he has noticed that he is having increased frequency of panic attacks as well as decreased interest in eating, decreased interest in usual activities, difficulty taking care of himself, increased weakness globally. Has been working with PCP on weaning off of Lexapro with the subsequent increase of mirtazapine, as well as utilization of Ativan as needed given the significant frequency of panic attacks. This weakness has continued and he has noticed that he has been losing weight over this time. Does have people come in that typically work with him once a day in order to make sure that he has food, and notes that he does snack or eat fast food periodically throughout the day but typically only has 1 meal. Uncertain the exact quality or quantity of food that he eats in any given day. Allergies Allergy/AdvReac Type Severity Reaction Status Date / Time cefuroxime Allergy Unknown rash Verified 07/19/21 20:53 lisinopril Allergy itching Verified 07/19/21 20:53 Home Medications Medication Instructions Recorded Confirmed Type ferrous sulfate 325 mg (65 mg 325 mg PO QAM #30 tab 03/21/19 07/19/21 Rx iron) tablet,delayed release folic acid 1 mg tablet 1 mg PO QAM #30 tab 03/21/19 07/19/21 Rx thiamine HCl (vitamin B1) 100 mg 100 mg PO QAM #30 tab 03/21/19 07/19/21 Rx tablet (Vitamin B-1) aspirin 81 mg tablet,delayed 81 mg PO QAM 05/06/19 07/19/21 History release cyanocobalamin (vitamin B-12) 1,000 mcg PO QAM 05/06/19 07/19/21 History 1,000 mcg tablet (Vitamin B-12) nitroglycerin 0.4 mg sublingual 0.4 mg SUBLINGUAL DIRECTED PRN 05/06/19 07/19/21 History tablet primidone 50 mg tablet 50 mg PO BID #180 tab 10/12/20 07/19/21 Rx omeprazole 40 mg capsule,delayed 40 mg PO DAILY #90 cap 12/30/20 07/19/21 Rx release amlodipine 5 mg tablet 5 mg PO DAILY #90 tab 05/26/21 07/19/21 Rx atorvastatin 40 mg tablet 40 mg PO DAILY #90 tab 05/26/21 07/19/21 Rx metoprolol succinate 100 mg 100 mg PO DAILY #90 tab 05/26/21 07/19/21 Rx tablet,extended release 24 hr (Toprol XL) mirtazapine 30 mg tablet 30 mg PO QPM #90 tab 05/26/21 07/19/21 Rx tamsulosin 0.4 mg capsule 0.4 mg PO QPM #90 cap 05/26/21 07/19/21 Rx multivitamin (Daily Multi-Vitamin) 1 tab PO DAILY 05/28/21 07/19/21 History hydrocodone 10 mg-acetaminophen 2 tab PO Q6H PRN #240 tab MDD 8 06/28/21 07/19/21 Rx 325 mg tablet tabs lorazepam 0.5 mg tablet 0.5 mg PO BID PRN #60 tab 06/28/21 07/19/21 Rx escitalopram oxalate 5 mg tablet 5 mg PO DAILY 07/19/21 07/19/21 History Past Med/Surg History Medical History (Updated 07/20/21 @ 04:12 by Francisco Marquez MD) AAA (abdominal aortic aneurysm) Anemia of chronic disease Anxiety CAD (coronary artery disease) PTCA with stent of RCA 1994 Chronic pain Chronic renal insufficiency Essential tremor GERD (gastroesophageal reflux disease) Hyperlipidemia LDL goal <70 Hypertension Lower urinary tract symptoms (LUTS) Multiple rib fractures Opioid dependence treated with opiates for chronic low back pain for 10+ years Septal myocardial infarction Vitamin B12 deficiency Surgical History H/O heart artery stent (~1994) Family History Denies family history of Ovarian cancer Prostate cancer Myocardial infarction Breast cancer Colorectal cancer Social History Smoking Status: Current every day smoker Tobacco Type: Cigarettes Cigarettes Per Day: 1/2 pack; Second Hand Exposure: No; Do You Dip or Chew Tobacco: No; Tobacco Cessation Education Requested by Patient: No Hx Alcohol Use: No Hx Substance Use: No Preferred Language: Armenian Communication Ability: Effective Visual Impairment: No Limitations Hearing Ability: Normal [place]erry [place] Required: No Beliefs That Will Affect Care: None marital status: / Current Living Situation: Alone Current Living Situation Comment: Alone at home in apartment after of in March current occupational status: 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 Other Information That Helps Us Care for You: Yes (Pt desires psych consult) Feels Safe at Home: Yes Childhood Exposure to Second-Hand Smoke: Yes Dental Care, Regularly: No Physical Activity Frequency: Does not Exercise Seatbelt Use: always Sunscreen Use: No (doesn't really go outside ) Assistive Devices: Glasses and Walker Review of Systems Review of Systems: All systems reviewed & are unremarkable except as noted in HPI & below Physical Exam Constitutional: + cachectic, + frail appearing and + malnourished Eyes: PERRL, conjunctivae normal, anicteric sclerae ENMT: Mouth: + dry oral mucous membranes temporal wasting Respiratory: normal respiratory effort, lungs clear to auscultation Auscultation: no crackles, no rales, no rhonchi and no wheezes Cardiovascular: Rate/Rhythm: regular rate and regular rhythm Heart Sounds: no gallop, no murmur and no cardiac rub Vessels: normal peripheral pulses; no JVD Extremities: + edema (trace b/l) Gastrointestinal (Abdomen): Inspection/Auscultation: normal bowel sounds; abdomen not distended Percussion/Palpation: abdomen soft; abdomen nontender and no guarding Musculoskeletal: Interdigital retractions, and supraclavicular muscular wasting; 4/5 strength throughout upper and lower extremities Neurologic: PERRL, EOMI, accommodation nl, no face palsy, no dysarthria CN's II-XI intact bilaterally and moves all extremities Psychiatric: Orientation: alert and oriented x 3 Results & Data Results & Data ([facility]) Vital Signs (Past 12 Hours) Vital Signs Temp Pulse Pulse Resp BP BP Pulse Ox 07/19/21 19:41 80 80 16 177/105 H 97 07/19/21 15:23 36.8 C 90 18 192/77 H 96 Laboratory Results 07/20/21 07/19/21 07/19/21 Range/Units 00:57 23:10 23:10 WBC (4.8-10.8) K/uL RBC (4.7-6.1) M/uL Hgb (14.0-18.0) g/dL Hct (42-52) % MCV (80-100) fL MCH (25-34) pg MCHC (32-36) g/dL RDW Std Deviation (36.4-46.3) fL RDW Coeff of Lucas (11.5-14.5) % Plt Count (130-400) K/uL MPV (7.4-10.4) fL Immature Gran % (Auto) % Neut % (Auto) % Lymph % (Auto) % Mcdonough % (Auto) % Eos % (Auto) % Baso % (Auto) % Neut # (Auto) (1.4-6.5) K/uL Lymph # (Auto) (1.2-3.4) K/uL Mcdonough # (Auto) (0.11-0.59) K/uL Eos # (Auto) (0-0.5) K/uL Baso # (Auto) (0-0.2) K/uL Immature Gran # (Auto) (0.00-0.02) K/uL Poikilocytosis PT (9.0-12.0) Seconds INR (0.9-1.1) APTT (21.0-31.0) Seconds PTT Ratio Sodium (136-145) mmol/L Potassium (3.5-5.1) mmol/L Chloride (98-107) mmol/L Carbon Dioxide (21-32) mmol/L Anion Gap (3-11) BUN (7-18) mg/dl Creatinine (0.6-1.4) mg/dl Est Cr Clr Drug Dosing Est GFR ( Amer) ml/min Est GFR (Non-Af Amer) ml/min BUN/Creatinine Ratio (10-20) Glucose (70-99) mg/dl Calcium (8.5-10.1) mg/dl Magnesium (1.8-2.4) mg/dl Iron 49 (35-175) mcg/dl TIBC 259 (250-450) mcg/dl Total Bilirubin (0.2-1) mg/dl AST (15-37) U/L ALT (12-78) U/L Alkaline Phosphatase (45-117) U/L Troponin I < 0.015 (0-0.045) ng/ml NT-Pro-B Natriuret Pep (0-1800) pg/ml Total Protein (6.4-8.2) gm/dl Albumin (3.4-5.0) gm/dl Globulin (2.5-4.0) gm/dl Albumin/Globulin Ratio (0.9-2) Vitamin B12 > 2000 H (193-986) pg/ml Folate > 20.00 (>5.38) ng/ml Urine Color Urine Appearance (Clear) Urine pH (4.5-7.5) Ur Specific [place] (1.000-1.030) Urine Protein (Negative) Urine Glucose (UA) (Negative) Urine Ketones (Negative) Urine Blood (Negative) Urine Nitrite (Negative) Urine Bilirubin (Negative) Urine Urobilinogen (Negative) Ur Leukocyte Esterase (Negative) Urine WBC (Auto) (0-5) /hpf Urine RBC (Auto) (0-4) /hpf U Hyaline Cast (Auto) (0-5) /lpf U Epithel Cells (Auto) (0-5) /lpf Urine Bacteria (Auto) (Negative) Urine Mucus (None Prsent) Urine Yeast (None Prsent) COVID-19 Eval Order SARS-CoV-2 (PCR) (Negative) Blood Type Antibody Screen 07/19/21 07/19/21 07/19/21 Range/Units 23:10 23:09 20:09 WBC (4.8-10.8) K/uL RBC (4.7-6.1) M/uL Hgb 7.5 L (14.0-18.0) g/dL Hct 23.4 L (42-52) % MCV (80-100) fL MCH (25-34) pg MCHC (32-36) g/dL RDW Std Deviation (36.4-46.3) fL RDW Coeff of Lucas (11.5-14.5) % Plt Count (130-400) K/uL MPV (7.4-10.4) fL Immature Gran % (Auto) % Neut % (Auto) % Lymph % (Auto) % Mcdonough % (Auto) % Eos % (Auto) % Baso % (Auto) % Neut # (Auto) (1.4-6.5) K/uL Lymph # (Auto) (1.2-3.4) K/uL Mcdonough # (Auto) (0.11-0.59) K/uL Eos # (Auto) (0-0.5) K/uL Baso # (Auto) (0-0.2) K/uL Immature Gran # (Auto) (0.00-0.02) K/uL Poikilocytosis PT (9.0-12.0) Seconds INR (0.9-1.1) APTT (21.0-31.0) Seconds PTT Ratio Sodium (136-145) mmol/L Potassium (3.5-5.1) mmol/L Chloride (98-107) mmol/L Carbon Dioxide (21-32) mmol/L Anion Gap (3-11) BUN (7-18) mg/dl Creatinine (0.6-1.4) mg/dl Est Cr Clr Drug Dosing Est GFR ( Amer) ml/min Est GFR (Non-Af Amer) ml/min BUN/Creatinine Ratio (10-20) Glucose (70-99) mg/dl Calcium (8.5-10.1) mg/dl Magnesium (1.8-2.4) mg/dl Iron (35-175) mcg/dl TIBC (250-450) mcg/dl Total Bilirubin (0.2-1) mg/dl AST (15-37) U/L ALT (12-78) U/L Alkaline Phosphatase (45-117) U/L Troponin I (0-0.045) ng/ml NT-Pro-B Natriuret Pep (0-1800) pg/ml Total Protein (6.4-8.2) gm/dl Albumin (3.4-5.0) gm/dl Globulin (2.5-4.0) gm/dl Albumin/Globulin Ratio (0.9-2) Vitamin B12 (193-986) pg/ml Folate (>5.38) ng/ml Urine Color Yellow Urine Appearance Clear (Clear) Urine pH 5.0 (4.5-7.5) Ur Specific [place] 1.014 (1.000-1.030) Urine Protein 3+ H (Negative) Urine Glucose (UA) Negative (Negative) Urine Ketones Negative (Negative) Urine Blood Negative (Negative) Urine Nitrite Negative (Negative) Urine Bilirubin Negative (Negative) Urine Urobilinogen Negative (Negative) Ur Leukocyte Esterase Negative (Negative) Urine WBC (Auto) 5-10 H (0-5) /hpf Urine RBC (Auto) 0-4 (0-4) /hpf U Hyaline Cast (Auto) 1-5 (0-5) /lpf U Epithel Cells (Auto) >30 H (0-5) /lpf Urine Bacteria (Auto) Negative (Negative) Urine Mucus Present A (None Prsent) Urine Yeast Budding A (None Prsent) COVID-19 Eval Order SARS-CoV-2 (PCR) (Negative) Blood Type O Positive Antibody Screen NEGATIVE 07/19/21 07/19/21 07/19/21 Range/Units 19:27 19:27 17:05 WBC (4.8-10.8) K/uL RBC (4.7-6.1) M/uL Hgb (14.0-18.0) g/dL Hct (42-52) % MCV (80-100) fL MCH (25-34) pg MCHC (32-36) g/dL RDW Std Deviation (36.4-46.3) fL RDW Coeff of Lucas (11.5-14.5) % Plt Count (130-400) K/uL MPV (7.4-10.4) fL Immature Gran % (Auto) % Neut % (Auto) % Lymph % (Auto) % Mcdonough % (Auto) % Eos % (Auto) % Baso % (Auto) % Neut # (Auto) (1.4-6.5) K/uL Lymph # (Auto) (1.2-3.4) K/uL Mcdonough # (Auto) (0.11-0.59) K/uL Eos # (Auto) (0-0.5) K/uL Baso # (Auto) (0-0.2) K/uL Immature Gran # (Auto) (0.00-0.02) K/uL Poikilocytosis PT (9.0-12.0) Seconds INR (0.9-1.1) APTT (21.0-31.0) Seconds PTT Ratio Sodium (136-145) mmol/L Potassium (3.5-5.1) mmol/L Chloride (98-107) mmol/L Carbon Dioxide (21-32) mmol/L Anion Gap (3-11) BUN (7-18) mg/dl Creatinine (0.6-1.4) mg/dl Est Cr Clr Drug Dosing Est GFR ( Amer) ml/min Est GFR (Non-Af Amer) ml/min BUN/Creatinine Ratio (10-20) Glucose (70-99) mg/dl Calcium (8.5-10.1) mg/dl Magnesium (1.8-2.4) mg/dl Iron (35-175) mcg/dl TIBC (250-450) mcg/dl Total Bilirubin (0.2-1) mg/dl AST (15-37) U/L ALT (12-78) U/L Alkaline Phosphatase (45-117) U/L Troponin I (0-0.045) ng/ml NT-Pro-B Natriuret Pep 19185 H (0-1800) pg/ml Total Protein (6.4-8.2) gm/dl Albumin (3.4-5.0) gm/dl Globulin (2.5-4.0) gm/dl Albumin/Globulin Ratio (0.9-2) Vitamin B12 (193-986) pg/ml Folate (>5.38) ng/ml Urine Color Urine Appearance (Clear) Urine pH (4.5-7.5) Ur Specific [place] (1.000-1.030) Urine Protein (Negative) Urine Glucose (UA) (Negative) Urine Ketones (Negative) Urine Blood (Negative) Urine Nitrite (Negative) Urine Bilirubin (Negative) Urine Urobilinogen (Negative) Ur Leukocyte Esterase (Negative) Urine WBC (Auto) (0-5) /hpf Urine RBC (Auto) (0-4) /hpf U Hyaline Cast (Auto) (0-5) /lpf U Epithel Cells (Auto) (0-5) /lpf Urine Bacteria (Auto) (Negative) Urine Mucus (None Prsent) Urine Yeast (None Prsent) COVID-19 Eval Order Covid19 at [facility] SARS-CoV-2 (PCR) NEGATIVE (Negative) Blood Type Antibody Screen 07/19/21 07/19/21 07/19/21 Range/Units 17:05 16:52 16:52 WBC 8.61 (4.8-10.8) K/uL RBC 2.28 L (4.7-6.1) M/uL Hgb 7.4 L (14.0-18.0) g/dL Hct 23.6 L (42-52) % MCV 103.5 H (80-100) fL MCH 32.5 (25-34) pg MCHC 31.4 L (32-36) g/dL RDW Std Deviation 55.2 H (36.4-46.3) fL RDW Coeff of Lucas 14.6 H (11.5-14.5) % Plt Count 524 H (130-400) K/uL MPV 9.2 (7.4-10.4) fL Immature Gran % (Auto) 0.3 % Neut % (Auto) 75.7 % Lymph % (Auto) 15.9 % Mcdonough % (Auto) 5.2 % Eos % (Auto) 2.4 % Baso % (Auto) 0.5 % Neut # (Auto) 6.51 H (1.4-6.5) K/uL Lymph # (Auto) 1.37 (1.2-3.4) K/uL Mcdonough # (Auto) 0.45 (0.11-0.59) K/uL Eos # (Auto) 0.21 (0-0.5) K/uL Baso # (Auto) 0.04 (0-0.2) K/uL Immature Gran # (Auto) 0.03 H (0.00-0.02) K/uL Poikilocytosis Present PT 10.2 (9.0-12.0) Seconds INR 1.0 (0.9-1.1) APTT 23.6 (21.0-31.0) Seconds PTT Ratio 0.9 Sodium 140 (136-145) mmol/L Potassium 5.0 (3.5-5.1) mmol/L Chloride 111 H (98-107) mmol/L Carbon Dioxide 23 (21-32) mmol/L Anion Gap 6.0 (3-11) BUN 39 H (7-18) mg/dl Creatinine 2.13 H (0.6-1.4) mg/dl Est Cr Clr Drug Dosing Not Reportable Est GFR ( Amer) 33.1 ml/min Est GFR (Non-Af Amer) 28.6 ml/min BUN/Creatinine Ratio 18.1 (10-20) Glucose 101 H (70-99) mg/dl Calcium 8.4 L (8.5-10.1) mg/dl Magnesium 1.6 L (1.8-2.4) mg/dl Iron (35-175) mcg/dl TIBC (250-450) mcg/dl Total Bilirubin < 0.1 L (0.2-1) mg/dl AST 14 L (15-37) U/L ALT 17 (12-78) U/L Alkaline Phosphatase 139 H (45-117) U/L Troponin I < 0.015 (0-0.045) ng/ml NT-Pro-B Natriuret Pep (0-1800) pg/ml Total Protein 6.6 (6.4-8.2) gm/dl Albumin 2.3 L (3.4-5.0) gm/dl Globulin 4.3 H (2.5-4.0) gm/dl Albumin/Globulin Ratio 0.5 L (0.9-2) Vitamin B12 (193-986) pg/ml Folate (>5.38) ng/ml Urine Color Urine Appearance (Clear) Urine pH (4.5-7.5) Ur Specific [place] (1.000-1.030) Urine Protein (Negative) Urine Glucose (UA) (Negative) Urine Ketones (Negative) Urine Blood (Negative) Urine Nitrite (Negative) Urine Bilirubin (Negative) Urine Urobilinogen (Negative) Ur Leukocyte Esterase (Negative) Urine WBC (Auto) (0-5) /hpf Urine RBC (Auto) (0-4) /hpf U Hyaline Cast (Auto) (0-5) /lpf U Epithel Cells (Auto) (0-5) /lpf Urine Bacteria (Auto) (Negative) Urine Mucus (None Prsent) Urine Yeast (None Prsent) COVID-19 Eval Order SARS-CoV-2 (PCR) (Negative) Blood Type Antibody Screen Medications Administered Home Medication List Medication Instructions Recorded ferrous sulfate 325 mg (65 mg 325 mg PO QAM #30 tab 03/21/19 iron) tablet,delayed release folic acid 1 mg tablet 1 mg PO QAM #30 tab 03/21/19 thiamine HCl (vitamin B1) 100 mg 100 mg PO QAM #30 tab 03/21/19 tablet (Vitamin B-1) aspirin 81 mg tablet,delayed 81 mg PO QAM 05/06/19 release cyanocobalamin (vitamin B-12) 1,000 mcg PO QAM 05/06/19 1,000 mcg tablet (Vitamin B-12) nitroglycerin 0.4 mg sublingual 0.4 mg SUBLINGUAL DIRECTED PRN 05/06/19 tablet primidone 50 mg tablet 50 mg PO BID #180 tab 10/12/20 omeprazole 40 mg capsule,delayed 40 mg PO DAILY #90 cap 12/30/20 release amlodipine 5 mg tablet 5 mg PO DAILY #90 tab 05/26/21 atorvastatin 40 mg tablet 40 mg PO DAILY #90 tab 05/26/21 metoprolol succinate 100 mg 100 mg PO DAILY #90 tab 05/26/21 tablet,extended release 24 hr (Toprol XL) mirtazapine 30 mg tablet 30 mg PO QPM #90 tab 05/26/21 tamsulosin 0.4 mg capsule 0.4 mg PO QPM #90 cap 05/26/21 multivitamin (Daily Multi-Vitamin) 1 tab PO DAILY 05/28/21 hydrocodone 10 mg-acetaminophen 2 tab PO Q6H PRN #240 tab MDD 8 06/28/21 325 mg tablet tabs lorazepam 0.5 mg tablet 0.5 mg PO BID PRN #60 tab 06/28/21 escitalopram oxalate 5 mg tablet 5 mg PO DAILY 07/19/21 Supervising Physician Co-Signing Physician Notes Patient seen and examined, chart reviewed, case discussed with Dr. Ott and I agree with his assessment and plan as documented above. In brief, patient is a 81yo male presenting with worsening SOB and anxiety/panic attacks ongoing since March. Patient lives alone since the of his in March. He has been having weight loss as well as poor oral intake. On exam patient is frail and cachectic in appearance Skin - dry, thin, no rash HEENT - NC/AT, perrl, dry mucus membranes Heart - +S1/S2, regular, trace edema Lungs - diminished breath sounds in bilateral bases, no rhonchi/wheezes Abd - +BS, soft, NT/ND Ext- trace edema Labs and images reviewed Anemic with Hgb=7.4 Assessment/plan - 81yo male with poor oral intake, failure to thrive, increased anxiety and panic attacks since March -Continue remeron for management of appetite, sleep -PT/OT evaluation -Transfusion 1u PRBCs. Continue PO iron, B12 and Folate -Continue pain management -Remainder of plan as above Resident Activity Tracking Resident Involvement: Resident Care Provided Care Provided: Adult [facility] Medicine
[2021-07-19] MEDS ORDERED: hydrOXYzine HCl 25 MG TAB PO PRN (21:59)
[2021-07-19 23:27] LABS: Hematocrit (blood only) 23.4 % (42-52); Hemoglobin 7.5 g/dL (14.0-18.0)
[2021-07-19 23:28] LABS: Appearance Urine Clear (Clear); Bilirubin Urine Negative (Negative); Blood Urine Negative (Negative); Color Urine Yellow; Epithelial Cell Urine Auto >30 /lpf (0-5); Glucose Urine UA Negative (Negative); Ketones Urine Negative (Negative); Leukocyte Esterase Urine Negative (Negative); Nitrite Urine Negative (Negative); Protein Urine 3+ (Negative); Specific Gravity Urine 1.014 (1.000-1.030); Urobilinogen Urine Negative (Negative)
[2021-07-19 23:44] LABS: Iron 49 mcg/dl (35-175); Total Iron Binding Capacity 259 mcg/dl (250-450)
[2021-07-19 23:53] LABS: Mucus Urine Present (None Prsent); RBC Urine Automated 0-4 /hpf (0-4)
[2021-07-19 23:54] LABS: Bacteria Urine Automated Negative (Negative)
[2021-07-20] MEDS ORDERED: POLYETHYLENE (MIRALAX) 17 GM PACK PO PRN (00:10)
[2021-07-20] MEDS ORDERED: ALUMINUM/MAGNESIUM SUSP 30 ML UDC PO PRN (00:10)
[2021-07-20] MEDS ORDERED: MAGNESIUM HYDROXIDE SUSP 30 ML UDC PO PRN (00:10)
[2021-07-20] MEDS ORDERED: ACETAMINOPHEN 325 MG TAB PO PRN (00:10)
[2021-07-20] MEDS ORDERED: NITROGLYCERIN SL 0.4 MG/TAB TAB SL PRN (00:10)
[2021-07-20] MEDS ORDERED: ONDANSETRON INJ 2 MG/ML 2 ML VIAL IV PRN (00:10)
[2021-07-20 00:39] LABS: Folate (Folic Acid) > 20.00 ng/ml (>5.38); Vitamin B12 > 2000 pg/ml (193-986)
[2021-07-20] MEDS: HYDROcodone/ACETAMINOPHEN 10/325 TAB PO PRN ×4 (00:47→19:24)
[2021-07-20] MEDS ORDERED: SODIUM CHLORIDE 0.9% 250 ML IV PRN (01:53)
[2021-07-20] MEDS ORDERED: MIRTAZAPINE TAB 15 MG TAB PO ONE (03:38)
[2021-07-20 06:20] LABS: Basophils # (auto) 0.01 K/uL (0-0.2); Basophils % (auto) 0.2 %; Hematocrit (blood only) 22.5 % (42-52); Hemoglobin 7.2 g/dL (14.0-18.0); Immature Granulocytes # (auto) 0.01 K/uL (0.00-0.02); Immature Granulocytes % (auto) 0.2 %; Lymphocytes # (auto) 0.78 K/uL (1.2-3.4); Lymphocytes % (auto) 11.8 %; Mean Corpuscular Hemoglobin 32.9 pg (25-34); Mean Corpuscular Volume 102.7 fL (80-100); Monocytes # (auto) 0.14 K/uL (0.11-0.59); Monocytes % (auto) 2.1 %; Neutrophils # (auto) 5.68 K/uL (1.4-6.5); Neutrophils % (auto) 85.7 %; Platelet Count 546 K/uL (130-400); RDW Coefficient of Variation 14.7 % (11.5-14.5); RDW Standard Deviation 54.8 fL (36.4-46.3); Red Blood Count 2.19 M/uL (4.7-6.1); White Blood Count 6.62 K/uL (4.8-10.8)
[2021-07-20 06:51] LABS: Albumin Level 2.1 gm/dl (3.4-5.0); BUN Creatinine Ratio 18.3 (10-20); Calcium 8.5 mg/dl (8.5-10.1); Creatinine Clr Calc Pharmacy 22.9 ml/min; Est GFR (African American) 31.3 ml/min; Magnesium 1.7 mg/dl (1.8-2.4); Potassium 5.5 mmol/L (3.5-5.1)
[2021-07-20 06:53] LABS: Albumin Globulin Ratio 0.5 (0.9-2); Bilirubin,Total 0.2 mg/dl (0.2-1); Globulin 4.2 gm/dl (2.5-4.0); Phosphorus 3.7 mg/dl (2.5-4.9); Total Protein 6.3 gm/dl (6.4-8.2)
[2021-07-20 07:09] LABS: RBC Morphology Unremarkable
--- NOTE | 2021-07-20 07:34 | Hospitalist Progress Note ---
Date of Service July 20, 2021 Assessment & Plan (1) Severe protein-calorie malnutrition: Plan: Usman Hilton is a 81-year-old male with past medical history significant for coronary artery disease s/p stent in 1994, hyperlipidemia, history of abdominal aortic aneurysm, chronic pain with chronic opioid use, GERD, anxiety, hypertension; who presents with complaints of worsening shortness of breath and panic attacks over the last several months since the of his in March. Severe protein calorie malnutrition: Adult failure to thrive - Given prominence of muscular wasting across temples, supraclavicular, and interdigital in the setting of patient self endorsed decreased oral intake over the last several months - Likely contributing to weakness patient notices - Encouraged oral intake of 3 meals consistently each day - Dietary consult placed -- appreciate recs - Continue Remeron which may assist with increasing appetite - Improved anxiety control should help with improvement in appetite. - Spoke to patient's daughter via telephone who reported this being an issue for him and they had tried moving him to her home but ultimately this did not work out -- he insisted on moving back to [place] on his own - Patient also reported he was admitted in the past in [place] for similar issues and ultimately decided to leave [place] Panic attacks/anxiety: - Patient was being weaned off of Lexapro as outpatient with uptake of Remeron to 30 mg daily - Previously unsuccessful trials of BuSpar, moderate success with as needed use of Ativan 0.5 mg - Patient reports panic attacks since the of his -- his daughter however reports that these were an issue prior to his 's passing - 07/20 had two panic attacks, which he was able to overcome with breathing exercises and dose of Ativan - Continue home lorazepam 0.5mg BID prn anxiety/agitation/panic attacks - Continue mirtazapine 30 mg daily - Hydroxyzine 25 mg p.o. every 12 hours prn for panic attacks - d/c lexapro and Start venlafaxine 37.5 mg daily tomorrow Weakness: -Uncertain etiology of weakness with multiple likely contributing factors -Likely sources from adjustment disorder/depression in the setting of recent passing of , verse severe protein calorie malnutrition -PT/OT evaluation -- recommending inpt rehab, CM to follow Anemia: -Hgb 7.4 in ED with recheck of 7.5 -MCV 103.5 -Patient at home on folic acid, B12, and iron supplementation -Folate >20, B12 >2000 -Transfused 1U PRBCs due to h/o CAD - Hgb recheck at 8.1 - Trend CBC in AM Elevated BNP: - BNP 27118 - No clinical signs of volume overload, with trace edema of lower extremities likely secondary to malnutrition - Received Lasix 40mg IV in ED - Echo in 2019 demonstrating wall motion abnormalities with EF of 40-45% - Repeat Echo today with low normal sys fxn, EF 50-55% - Monitor fluid status Chronic pain: -Patient with greater than 20-year history of opiate use -Continue home [place] regimen of 20 mg every 6 hours as needed Hypertension: -Continue home hypertensive regimen Diet: Heart healthy DVT prophylaxis: Hold chemical prophylaxis in the setting of anemia, encourage use of SCDs Dispo: [facility] Telemetry CODE STATUS: Full code (2) SOB (shortness of breath): (3) Chronic pain: (4) Anemia: (5) Hypertension: (6) Anxiety: (7) CAD (coronary artery disease): (8) AAA (abdominal aortic aneurysm): Admission and Anticipated Discharge Date Admission Date: July 19, 2021 Supervising Physician Co-Signing Physician Notes Resident Physician Supervision Note: I independently interviewed and examined the patient and verified the braga history and physical, reviewed labs and image studies and agree with resident Dr. Perry findings and care plan. Subjective No acute events overnight. Patient seen at bedside. He reports that his biggest issue is recurrent panic attacks. Insistent that he does not need rehabilitation and has many people who come by to help cook and bring food. Denies fever, chills, n/v, abd pain, CP, palpitations, SOB. Review of Systems Review of Systems: per subjective Physical Exam Physical Exam: GENERAL: A&Ox3. NAD. Cachectic, frail-appearing. HEENT: PERRL, EOMI. Moist mucous membranes. CHEST/LUNGS: CTAB A/P. No crackles, wheezes, rales, rhonchi. HEART: RRR. No m/g/r. No carotid bruits. ABDOMEN: NT/ND, soft. BS+ x4 EXTREMITIES: No cyanosis, no clubbing, trace b/l LE edema SKIN: Warm and dry. No rashes or lesions. PSYCHIATRIC: Euthymic affect, no SI, no pressured speech, no hallucinations NEUROLOGIC: No FND. CN II-XII grossly intact. Results & Data Results & Data ([facility]) Vital Signs (Past 12 Hours) Vital Signs Temp Pulse Pulse Resp BP BP Pulse Ox 07/20/21 07:01 36.4 C L 94 H 20 189/96 H 07/20/21 07:00 36.4 C L 94 H 16 189/96 H 91 07/20/21 04:53 96 H 07/20/21 03:00 36.6 C 85 18 190/123 H 94 07/20/21 01:22 178/97 H 07/20/21 01:00 80 93 07/20/21 00:30 93 H 14 92 07/20/21 00:00 86 16 93 07/19/21 23:39 87 21 96 07/19/21 23:12 89 20 192/130 H 94 07/19/21 23:10 89 18 96 07/19/21 23:00 114 H 26 H 192/130 H 92 07/19/21 22:50 92 H 16 90 07/19/21 22:40 90 17 91 07/19/21 22:30 86 15 170/85 H 92 07/19/21 22:20 83 15 94 07/19/21 22:10 100 H 22 92 07/19/21 22:00 97 H 12 86 L 07/19/21 21:50 97 H 20 83 L 07/19/21 21:40 105 H 18 90 07/19/21 21:30 95 H 24 187/100 H 07/19/21 21:29 94 H 22 187/96 H 91 07/19/21 21:20 91 H 16 92 07/19/21 21:10 94 H 20 92 07/19/21 21:00 89 13 186/102 H 93 07/19/21 20:50 92 H 17 95 07/19/21 20:40 91 H 23 96 07/19/21 20:30 107 H 22 178/112 H 98 07/19/21 20:20 120 H 20 100 07/19/21 20:10 108 H 19 96 07/19/21 20:07 95 H 22 93 07/19/21 19:41 80 80 16 177/105 H 97 Resident Activity Tracking Resident Involvement: Resident Care Provided Care Provided: Adult [facility]
[2021-07-20] MEDS: ATORVASTATIN 40 MG TAB PO SCH (07:45)
[2021-07-20] MEDS: FERROUS SULFATE 325 MG TAB PO SCH (07:46)
[2021-07-20] MEDS ORDERED: LEVALBUTEROL 0.31MG/3 ML VIAL NEB STA (07:46)
[2021-07-20] MEDS: METOPROLOL SUCC 50MG EXT REL TAB PO SCH (07:46)
[2021-07-20] MEDS ORDERED: IPRATROPIUM BROMIDE NEB SOLN 0.02% 2.5 ML VIAL NEB STA (07:46)
[2021-07-20] MEDS: FOLIC ACID 1 MG TAB PO SCH (07:47)
[2021-07-20] MEDS: amLODIPine BESYLATE 5 MG TAB PO SCH (07:47)
[2021-07-20] MEDS: THIAMINE HCL 100 MG TAB PO SCH (07:47)
[2021-07-20] MEDS: ASPIRIN 81 MG ECTAB PO SCH (07:48)
[2021-07-20] MEDS ORDERED: ESCITALOPRAM OXALATE 10 MG TAB PO SCH (09:00)
--- NOTE | 2021-07-20 09:21 | XCELERA ---
[id number]
[2021-07-20] MEDS: PANTOprazole 40 MG TAB PO SCH (10:21)
[2021-07-20] MEDS: PRIMIDONE 50 MG TAB PO SCH ×2 (10:21→19:25)
[2021-07-20] MEDS: LORazepam 0.5 MG TAB PO PRN ×2 (11:45→17:24)
[2021-07-20 13:25] LABS: Hematocrit (blood only) 25.2 % (42-52); Hemoglobin 8.1 g/dL (14.0-18.0)
--- NOTE | 2021-07-20 19:47 | Billing Data ---
Date of Service July 19, 2021 Coding Level of Care Code 03353 Initial Inpt Care Lvl 3
[2021-07-20] MEDS ORDERED: MIRTAZAPINE TAB 15 MG TAB PO SCH (21:00)
[2021-07-20] MEDS ORDERED: TAMSULOSIN HCL 0.4 MG CAP PO SCH (21:00)
[2021-07-21] MEDS ORDERED: hydrOXYzine HCl 25 MG TAB PO PRN (00:43)
[2021-07-21] MEDS: HYDROcodone/ACETAMINOPHEN 10/325 TAB PO PRN ×2 (01:39→09:44)
[2021-07-21 07:12] LABS: Basophils # (auto) 0.03 K/uL (0-0.2); Basophils % (auto) 0.2 %; Eosinophils # (auto) 0.12 K/uL (0-0.5); Hematocrit (blood only) 28.5 % (42-52); Immature Granulocytes # (auto) 0.04 K/uL (0.00-0.02); Immature Granulocytes % (auto) 0.3 %; Lymphocytes # (auto) 1.41 K/uL (1.2-3.4); Lymphocytes % (auto) 11.2 %; Mean Corpuscular Hemoglobin 31.6 pg (25-34); Mean Corpuscular Hgb Conc 31.6 g/dL (32-36); Mean Platelet Volume 9.3 fL (7.4-10.4); Monocytes # (auto) 0.71 K/uL (0.11-0.59); Monocytes % (auto) 5.6 %; Neutrophils # (auto) 10.26 K/uL (1.4-6.5); Neutrophils % (auto) 81.7 %; Platelet Count 593 K/uL (130-400); RDW Coefficient of Variation 16.5 % (11.5-14.5); Red Blood Count 2.85 M/uL (4.7-6.1); White Blood Count 12.57 K/uL (4.8-10.8)
--- NOTE | 2021-07-21 07:41 | Hospitalist Progress Note ---
Date of Service July 21, 2021 Assessment & Plan (1) Severe protein-calorie malnutrition: Plan: Usman Hilton is a 81-year-old male with past medical history significant for coronary artery disease s/p stent in 1994, hyperlipidemia, history of abdominal aortic aneurysm, chronic pain with chronic opioid use, GERD, anxiety, hypertension; who presents with complaints of worsening shortness of breath and panic attacks over the last several months since the of his in March. Severe protein calorie malnutrition: Adult failure to thrive - Given prominence of muscular wasting across temples, supraclavicular, and interdigital in the setting of patient self endorsed decreased oral intake over the last several months - Likely contributing to weakness patient notices - Encouraged oral intake of 3 meals consistently each day - Dietary consult placed -- appreciate recs - Continue Remeron which may assist with increasing appetite - Improved anxiety control should help with improvement in appetite. - Spoke to patient's daughter via telephone who reported this being an issue for him and they had tried moving him to her home but ultimately this did not work out -- he insisted on moving back to [place] on his own - Patient also reported he was admitted in the past in [place] for similar issues and [facility] Panic attacks/anxiety: - Patient was being weaned off of Lexapro as outpatient with uptake of Remeron to 30 mg daily - Previously unsuccessful trials of BuSpar, moderate success with as needed use of Ativan 0.5 mg - Patient reports panic attacks since the of his -- his daughter however reports that these were an issue prior to his 's passing - 07/20 had two panic attacks, which he was able to overcome with breathing exercises and dose of Ativan - Continue home lorazepam 0.5mg BID prn anxiety/agitation/panic attacks - Continue mirtazapine 30 mg daily - Hydroxyzine 25 mg p.o. every 12 hours prn for panic attacks - d/c lexapro and Start venlafaxine 37.5 mg daily tomorrow Weakness: -Uncertain etiology of weakness with multiple likely contributing factors -Likely sources from adjustment disorder/depression in the setting of recent passing of , verse severe protein calorie malnutrition -PT/OT evaluation -- recommending inpt rehab, CM to follow Anemia: -Hgb 7.4 in ED with recheck of 7.5 -MCV 103.5 -Patient at home on folic acid, B12, and iron supplementation -Folate >20, B12 >2000 -Transfused 1U PRBCs due to h/o CAD - Hgb recheck at 8.1 - Trend CBC in AM Elevated BNP: - BNP 96401 - No clinical signs of volume overload, with trace edema of lower extremities likely secondary to malnutrition - Received Lasix 40mg IV in ED - Echo in 2019 demonstrating wall motion abnormalities with EF of 40-45% - Repeat Echo today with low normal sys fxn, EF 50-55% - Monitor fluid status Chronic pain: -Patient with greater than 20-year history of opiate use -Continue home [place] regimen of 20 mg every 6 hours as needed Hypertension: -Continue home hypertensive regimen Diet: Heart healthy DVT prophylaxis: Hold chemical prophylaxis in the setting of anemia, encourage use of SCDs Dispo: [email or web address] Telemetry CODE STATUS: Full code (2) SOB (shortness of breath): (3) Chronic pain: (4) Anemia: (5) Hypertension: (6) Anxiety: (7) CAD (coronary artery disease): (8) AAA (abdominal aortic aneurysm): Admission and Anticipated Discharge Date Admission Date: July 19, 2021 Review of Systems Review of Systems: per subjective Physical Exam Physical Exam: GENERAL: A&Ox3. NAD. Cachectic, frail-appearing. HEENT: PERRL, EOMI. Moist mucous membranes. CHEST/LUNGS: CTAB A/P. No crackles, wheezes, rales, rhonchi. HEART: RRR. No m/g/r. No carotid bruits. ABDOMEN: NT/ND, soft. BS+ x4 EXTREMITIES: No cyanosis, no clubbing, trace b/l LE edema SKIN: Warm and dry. No rashes or lesions. PSYCHIATRIC: Euthymic affect, no SI, no pressured speech, no hallucinations NEUROLOGIC: No FND. CN II-XII grossly intact. Results & Data Results & Data ([facility]) Vital Signs (Past 12 Hours) Vital Signs Temp Pulse Pulse Resp BP Pulse Ox 07/21/21 07:31 64 07/21/21 03:11 36.4 C L 86 18 173/99 H 96 07/21/21 01:03 184/98 H 07/20/21 23:14 36.3 C L 93 H 18 93
[2021-07-21 07:43] LABS: BUN Creatinine Ratio 20.4 (10-20); Calcium 8.7 mg/dl (8.5-10.1); Creatinine Clr Calc Pharmacy 23.1 ml/min; Est GFR (African American) 31.5 ml/min; Est GFR (Non-African American) 27.2 ml/min; Magnesium 1.8 mg/dl (1.8-2.4); Phosphorus 3.7 mg/dl (2.5-4.9); Potassium 5.1 mmol/L (3.5-5.1)
[2021-07-21] MEDS: ATORVASTATIN 40 MG TAB PO SCH (07:48)
[2021-07-21] MEDS: amLODIPine BESYLATE 5 MG TAB PO SCH (07:48)
[2021-07-21] MEDS: ASPIRIN 81 MG ECTAB PO SCH (07:48)
[2021-07-21] MEDS: FERROUS SULFATE 325 MG TAB PO SCH (07:49)
[2021-07-21] MEDS: FOLIC ACID 1 MG TAB PO SCH (07:49)
[2021-07-21] MEDS: PANTOprazole 40 MG TAB PO SCH (07:49)
[2021-07-21] MEDS: THIAMINE HCL 100 MG TAB PO SCH (07:50)
[2021-07-21] MEDS: METOPROLOL SUCC 50MG EXT REL TAB PO SCH (07:50)
[2021-07-21] MEDS: PRIMIDONE 50 MG TAB PO SCH (07:52)
[2021-07-21] MEDS ORDERED: VENLAFAXINE HCL XR 37.5 MG CAPXR PO SCH (09:00)
[2021-07-21] MEDS: LORazepam 0.5 MG TAB PO PRN (09:44)
[2021-07-21] MEDS ORDERED: LOSARTAN POTASSIUM 25 MG TAB PO STA (11:20)
--- NOTE | 2021-07-21 11:27 | Electrocardiogram Report ---
Test Reason : Blood Pressure : / mmHG Vent. Rate : 080 BPM Atrial Rate : 080 BPM P-R Int : 132 ms QRS Dur : 084 ms QT Int : 386 ms P-R-T Axes : 073 064 081 degrees QTc Int : 445 ms Normal sinus rhythm Normal ECG When compared with ECG of 30-MAR-2019 06:39, T wave inversion no longer evident in Anterior leads Confirmed by Fan Irwin ([id number]) on 07/21/2021 11:27:01 AM Referred By: REFERRED SELF Confirmed By:Fan Irwin
--- NOTE | 2021-07-21 11:33 | Electrocardiogram Report ---
Test Reason : Blood Pressure : / mmHG Vent. Rate : 095 BPM Atrial Rate : 095 BPM P-R Int : 138 ms QRS Dur : 082 ms QT Int : 366 ms P-R-T Axes : 063 056 072 degrees QTc Int : 459 ms Normal sinus rhythm Normal ECG When compared with ECG of 19-JUL-2021 16:47, (unconfirmed) No significant change was found Confirmed by Fan Irwin ([id number]) on 07/21/2021 11:32:52 AM Referred By: REFERRED SELF Confirmed By:Fan Irwin
--- NOTE | 2021-07-21 15:44 | Discharge Summary ---
Date of Service July 21, 2021 Admission HPI Per Admitting Provider Usman Hilton is a 81-year-old male with past medical history significant for coronary artery disease s/p stent in 1994, hyperlipidemia, history of abdominal aortic aneurysm, chronic pain with chronic opioid use, GERD, anxiety, hypertension; who presents with complaints of worsening shortness of breath and panic attacks over the last several months since the of his in March. Over the last several months is been working with his PCP in order to continue to adjust to life following his 's passing. Throughout this time he has noticed that he is having increased frequency of panic attacks as well as decreased interest in eating, decreased interest in usual activities, difficulty taking care of himself, increased weakness globally. Has been working with PCP on weaning off of Lexapro with the subsequent increase of mirtazapine, as well as utilization of Ativan as needed given the significant frequency of panic attacks. This weakness has continued and he has noticed that he has been losing weight over this time. Does have people come in that typically work with him once a day in order to make sure that he has food, and notes that he does snack or eat fast food periodically throughout the day but typically only has 1 meal. Uncertain the exact quality or quantity of food that he eats in any given day. Principal Diagnosis Protein calorie malnutrition Discharge Exam GENERAL: A&Ox3. NAD. Cachectic, frail-appearing. HEENT: PERRL, EOMI. Moist mucous membranes. CHEST/LUNGS: CTAB A/P. No crackles, wheezes, rales, rhonchi. HEART: RRR. No m/g/r. No carotid bruits. ABDOMEN: NT/ND, soft. BS+ x4 EXTREMITIES: No cyanosis, no clubbing, trace b/l LE edema SKIN: Warm and dry. No rashes or lesions. PSYCHIATRIC: Euthymic affect, no SI, no pressured speech, no hallucinations NEUROLOGIC: No FND. CN II-XII grossly intact. Discharge Data Allergies Allergy/AdvReac Type Severity Reaction Status Date / Time cefuroxime Allergy Unknown rash Verified 07/19/21 20:53 lisinopril Allergy itching Verified 07/19/21 20:53 Consultations 07/19/21 20:56 ED Decision to Admit Stat Hospital Course (1) Severe protein-calorie malnutrition: Usman Hilton is a 81-year-old male with past medical history significant for coronary artery disease s/p stent in 1994, hyperlipidemia, history of a bdominal aortic aneurysm, chronic pain with chronic opioid use, GERD, anxiety, hypertension; who presented with complaints of worsening shortness of breath and panic attacks over the last several months since the of his in March. Severe protein calorie malnutrition: Adult failure to thrive - Given prominence of muscular wasting across temples, supraclavicular, and interdigital in the setting of patient self endorsed decreased oral intake over the last several months - Likely contributing to weakness patient notices - Encouraged oral intake of 3 meals consistently each day - Dietary consult placed -- recommended regular diet with Boost supplementation TID - Continue Remeron which may assist with increasing appetite - Improved anxiety control should help with improvement in appetite - Spoke to patient's daughter via telephone who reported this being an issue for him and they had tried moving him to her home but ultimately this did not work out -- he insisted on moving back to [place] on his own - Patient also reported he was admitted in the past in [place] for similar issues and ultimately decided to leave [place] Panic attacks/anxiety: - Patient was being weaned off of Lexapro as outpatient with uptake of Remeron to 30 mg daily - Previously unsuccessful trials of BuSpar, moderate success with as needed use of Ativan 0.5 mg - Patient reports panic attacks since the of his -- his daughter however reports that these were an issue prior to his 's passing - 07/20 had two panic attacks, which he was able to overcome with breathing exercises and dose of Ativan - Continue home lorazepam 0.5mg BID prn anxiety/agitation/panic attacks - Continue mirtazapine 30 mg daily - Hydroxyzine 25 mg p.o. every 12 hours prn for panic attacks while admitted -- did not find this very helpful, ultimately found lorazepam more beneficial - Started venlafaxine 37.5 mg daily -- recommend continuation on DC and discussion with PCP going forward Weakness: -Uncertain etiology of weakness with multiple likely contributing factors -Likely sources from adjustment disorder/depression in the setting of recent passing of , verse severe protein calorie malnutrition -PT/OT evaluation -- recommending inpt rehab - Patient was against rehab placement and ultimately requesting discharge home -- CM assisted with Home Health starting day after DC Anemia: -Hgb 7.4 in ED with recheck of 7.5 -MCV 103.5 -Patient at home on folic acid, B12, and iron supplementation -Folate >20, B12 >2000 -Transfused 1U PRBCs due to h/o CAD - Hgb recheck at 8.1 - Recommend rechecking at PCP f/u within 1 week of DC Elevated BNP: - BNP 64528 - No clinical signs of volume overload, with trace edema of lower extremities likely secondary to malnutrition - Received Lasix 40mg IV in ED - Echo in 2019 demonstrating wall motion abnormalities with EF of 40-45% - Repeat Echo 07/20 with low normal sys fxn, EF 50-55% Chronic pain: -Patient with greater than 20-year history of opiate use -Continue home [place] regimen of 20 mg every 6 hours as needed Hypertension: -Continue home hypertensive regimen Diet: Recommend regular with TID Boost supplements Dispo: Home - Home Health Services (2) SOB (shortness of breath): (3) Chronic pain: (4) Anemia: (5) Hypertension: (6) Anxiety: (7) CAD (coronary artery disease): (8) AAA (abdominal aortic aneurysm): Total Time Total Time Spent Total Time Spent (In Minutes): see attending attestation Discharge Plan Discharge Items Patient Disposition: Home - Home Health Services Reason For Visit: DECONDITIONING Discharge Diagnosis: Protein calorie malnutrition/adult failure to thrive Activity: Per Instructions section Non-emergency contact: Primary Care Provider Call non-emergency contact if: you have any medication questions and your symptoms worsen Follow-up/Referrals: Юлия Harvey MD [Primary Care Provider] - 07/26/21 3:00 pm (You will be seeing KEHINDE Feldman) Diet: Regular Addtl Attending Provider Instructions: You were admitted to [facility] due to panic attacks and fatigue. You were found to have malnutrition secondary to reduced oral nutrition. As such, we recommend that you follow a regular diet with at least 3 meals daily. We also recommend that you take boost supplementation 3 times daily. Additionally, we also recommend that you continue to take medication called Remeron to help with your appetite and supplementation with thiamine and folic acid. For your anxiety/panic attacks we have started you on a new medication called Effexor your, which you should continue to take daily. Please follow-up with your primary care provider for discussion of this medication and management going forward. Our PT/OT team evaluated you and recommended inpatient rehabilitation. However, since you were not in agreement with this plan, we will discharge you home and our case management team has set up home health support for you starting tomorrow. Your blood pressure was consistently very elevated throughout your admission--you will be started on a new medication called losartan to try to control this. Please continue to take this daily and discuss with your primary care provider for continued management of this. Please follow-up with your primary care provider for discussion of your hospitalization and continued care going forward. If you should develop any worsening signs/symptoms or develop any new concerning symptoms please seek emergency medical care or return to our hospital. Pending Studies at Discharge: No Stand-Alone Forms: My [facility], Smoking Cessation Medications and DC Order Prescriptions: New venlafaxine 37.5 mg Capsule,Extended Release 24hr 37.5 mg PO QAM 30 Days Qty: 30 RF: 0 losartan 25 mg tablet 25 mg PO DAILY 30 Days Qty: 30 RF: 0 Continued primidone 50 mg tablet 50 mg PO BID Qty: 180 RF: 3 omeprazole 40 mg capsule,delayed release(DR/EC) 40 mg PO DAILY Qty: 90 RF: 3 hydrocodone-acetaminophen 10-325 mg tablet 2 tab PO Q6H MDD 8 tabs PRN (Reason: pain) Qty: 240 RF: 0 lorazepam 0.5 mg tablet 0.5 mg PO BID PRN (Reason: anxiety) Qty: 60 RF: 0 atorvastatin 40 mg tablet 40 mg PO DAILY Qty: 90 RF: 3 metoprolol succinate [Toprol XL] 100 mg tablet extended release 24 hr 100 mg PO DAILY Qty: 90 RF: 3 mirtazapine 30 mg tablet 30 mg PO QPM Qty: 90 RF: 3 tamsulosin 0.4 mg capsule 0.4 mg PO QPM Qty: 90 RF: 3 amlodipine 5 mg tablet 5 mg PO DAILY Qty: 90 RF: 3 multivitamin [Daily Multi-Vitamin] Tablet 1 tab PO DAILY RF: 0 aspirin 81 mg tablet,delayed release (DR/EC) 81 mg PO QAM RF: 0 cyanocobalamin (vitamin B-12) [Vitamin B-12] 1,000 mcg tablet 1,000 mcg PO QAM RF: 0 nitroglycerin 0.4 mg tablet, sublingual 0.4 mg sublingual DIRECTED PRN (Reason: Chest Pain) RF: 0 ferrous sulfate 325 mg (65 mg iron) Tablet,Delayed Release (Dr/Ec) 325 mg PO QAM Qty: 30 RF: 0 thiamine HCl (vitamin B1) [Vitamin B-1] 100 mg Tablet 100 mg PO QAM Qty: 30 RF: 0 folic acid 1 mg Tablet 1 mg PO QAM Qty: 30 RF: 0 Discontinued escitalopram oxalate 5 mg tablet 5 mg PO DAILY RF: 0 Discharge Orders: Discharge Order (Routine); Ordered 07/21/21 Ordered By: Giovanny Kirk/Other Patient Handouts: Understanding Anxiety Disorders, Treating Anxiety Disorders with ... Admission Data Admit Date/Time: 07/19/21 23:54 Attending Provider: Debora Samuel Admit Provider: Akil Ott Primary Care Provider: Юлия Harvey Other Providers: Karly Olivia ; Hartley,Care ; Hartley,Home Care Other Interventions: Discharge Summary Assessment (RN) Last Done: 07/21/21 15:10 Supervising Physician Co-Signing Physician Notes Resident Physician Supervision Note: I independently interviewed and examined the patient and verified the braga history and physical, reviewed labs and image studies and agree with resident Dr. Perry findings and care plan. Resident Activity Tracking Resident Involvement: Resident Care Provided Care Provided: Adult Hospital Medicine
== END 2021-07-21 15:29 | disposition home health service (06) | DRG 640 ==
LOC: ED 15:20 → EDINP 23:12 → SUATTDRO 23:54 → EDINP 23:54 → 2N 07-20 03:51
DX: D63.8 Anemia in other chronic diseases classified elsewhere; I12.9 Hypertensive chronic kidney disease with stage 1 through stage 4 chronic kidney disease, or unspecified chronic kidney disease; E78.5 Hyperlipidemia, unspecified; F41.0 Panic disorder [episodic paroxysmal anxiety]; F11.20 Opioid dependence, uncomplicated; K21.9 Gastro-esophageal reflux disease without esophagitis; F17.210 Nicotine dependence, cigarettes, uncomplicated; M54.59 Other low back pain; Z95.5 Presence of coronary angioplasty implant and graft; I25.2 Old myocardial infarction; G89.29 Other chronic pain; Z88.8 Allergy status to other drugs, medicaments and biological substances; E43 Unspecified severe protein-calorie malnutrition; Z79.82 Long term (current) use of aspirin; R60.0 Localized edema; I71.4 Abdominal aortic aneurysm, without rupture; Z88.1 Allergy status to other antibiotic agents; R62.7 Adult failure to thrive; N18.9 Chronic kidney disease, unspecified; Z68.1 Body mass index [BMI] 19.9 or less, adult; R53.1 Weakness; I25.10 Atherosclerotic heart disease of native coronary artery without angina pectoris; Z79.899 Other long term (current) drug therapy; R74.8 Abnormal levels of other serum enzymes; E53.8 Deficiency of other specified B group vitamins

== ENCOUNTER 2021-07-25 16:55 | Inpatient (IN) ==
--- NOTE | 2021-07-25 17:46 | Emergency Department Note ---
Impression & Plan Hypertensive emergency, Anemia, CHF (congestive heart failure), Dyspnea ED Provider Note NAME: MEDARDO AARON AGE: 81 SEX: M : 1940 ARRIVES VIA: Walk-In INFORMANT: Patient, ED PROVIDER(S): Bob Joseph MD Chief Complaint: Shortness of breath, weakness HPI: Patient does have a known history of CAD hyperlipidemia AAA GERD anxiety and hypertension. The patient has had some worsening shortness of breath. Patient's unfortunately in March. The patient does live at home by himself and has had worsening shortness of breath and has been seen several times just in the last week alone. Patient does not complain necessarily of positional dyspnea but does have exertional dyspnea. Patient does have chronic lower extremity edema and states that he has had worsening leg swelling but does not believe that he has any increased in weight. Has had worsening weakness. Patient's most recent admission and discharge that showed that the patient did have severe protein calorie malnutrition and failure to thrive. Patient does have some chronic anemia hemoglobin in the low sevens. The patient did have an echo just completed on July 20 showed low normal systolic function with an EF of 50 to 55%. Patient was transfused 1 unit PRBCs during his most recent admission and did have a mild increase in his anemia. Patient reportedly had been trialed in terms of placement at a care facility to try to get kicked out on purpose. ROS: See HPI for pertinent positives and negatives. A total of 10 systems were reviewed and otherwise negative. Past medical history: See below Surgical history: See below Social history: See below Physical Exam: GENERAL: Emaciated and ill in appearance. Pale. EYE EXAM: Normal conjunctiva. PERRL, no anisocoria and EOM's grossly intact w/o pain. NECK: Supple, no nuchal rigidity, no adenopathy, non-tender. No signs of meningismus. LUNGS: Decreased breath sounds throughout. Normal chest wall mechanics. HEART: NSR, no MRG. ABDOMEN: Abdomen soft, non-tender, normo-active bowel sounds, no masses, no rebound or guarding. BACK: No CVA TTP. SKIN: No rashes and no bruising. UPPER EXTREMITIES: Upper extremities are grossly normal. LOWER EXTREMITIES: Grossly normal, 2+ bilateral lower extremity edema without any erythema or calf pain. NEURO EXAM: A&O x3, cranial nerves II-XII grossly intact, normal speech, moves all 4 extremities on command w/o issue. Differential diagnoses: Reactive airway disease, pneumonia, pneumothorax, COPD, CHF, infections, cardiac ischemia, pulmonary embolism, musculoskeletal, gastrointestinal, as well as other pathologies. Course: Patient was seen and evaluated the bedside. Full history physical exam was performed. EKG interpreted by me Normal sinus rhythm, rate of 79, normal intervals, normal axis, no ST changes. Imaging Studies: See Below Cardiac monitoring: An order was placed for continuous cardiac monitoring. The monitor shows a rate of 82 with sinus rhythm. MDM: Patient does present due to concern for increasing weakness and shortness of breath. The patient does present with a family friend and states that he cannot get more than several steps without severe dyspnea. The patient did have an acute episode of worsening shortness of breath. Patient was also noted to be hypoxic into the 80s and was started on supplemental nasal cannula I did residential counselor the patient that he would likely benefit from BiPAP. The patient adamantly refused and is DNI but not DNR. The patient was started on a nitro drip and given Lasix. The patient was also given 1 DuoNeb. On reassessment multiple times the patient did have significant improvement in symptoms. I had spoken with the patient's daughter Allison who is aware of the current situation both pre and post treatments. I did state that the patient's current condition and prognosis was guarded but he was much improved compared to before. The patient was subsequently admitted to the medicine service by Dr. Ruiz. Critical Care: I have personally spent 97 minutes of critical care time in direct management of this patient. This includes bedside care, interpretation of diagnostic studies, and testing, discussion with consultants, patient, and family members, and other require inpatient management activities. This 97 minutes is in excess of all separately billable procedures. Past Med/Surg History Medical History AAA (abdominal aortic aneurysm) Anemia of chronic disease Anxiety CAD (coronary artery disease) PTCA with stent of RCA 1994 Chronic pain Chronic renal insufficiency Essential tremor GERD (gastroesophageal reflux disease) Hyperlipidemia LDL goal <70 Hypertension Lower urinary tract symptoms (LUTS) Multiple rib fractures Opioid dependence treated with opiates for chronic low back pain for 10+ years Septal myocardial infarction Vitamin B12 deficiency Surgical History H/O heart artery stent (~1994) Family History Denies family history of Ovarian cancer Prostate cancer Myocardial infarction Breast cancer Colorectal cancer Social History Smoking Status: Current every day smoker Tobacco Type: Cigarettes Cigarettes Per Day: 10; Second Hand Exposure: No; Hx Alcohol Use: No Hx Substance Use: No Preferred Language: Romanian Communication Ability: Effective Visual Impairment: No Limitations Hearing Ability: Normal Lumber Straightened Required: No Beliefs That Will Affect Care: None marital status: / Current Living Situation: Alone Current Living Situation Comment: Alone at home in apartment after of in March current occupational status: 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 many Children do You have: 1 Feels Safe at Home: Yes Childhood Exposure to Second-Hand Smoke: Yes Dental Care, Regularly: No Physical Activity Frequency: Does not Exercise Seatbelt Use: always Sunscreen Use: No (doesn't really go outside ) Assistive Devices: Oxygen - Continuous Allergies Allergies Allergy/AdvReac Type Severity Reaction Status Date / Time cefuroxime Allergy Intermediate rash Verified 07/26/21 10:38 lisinopril Allergy Mild itching Verified 07/26/21 10:38 Home Meds Home Medications Medication Instructions Recorded Confirmed aspirin 81 mg tablet,delayed 81 mg PO QAM 05/06/19 07/25/21 release cyanocobalamin (vitamin B-12) 1,000 mcg PO QAM 05/06/19 07/25/21 1,000 mcg tablet (Vitamin B-12) nitroglycerin 0.4 mg sublingual 0.4 mg SUBLINGUAL DIRECTED PRN 05/06/19 07/25/21 tablet multivitamin (Daily Multi-Vitamin) 1 tab PO DAILY 05/28/21 07/25/21 Previous Rx's Medication Instructions Recorded ferrous sulfate 325 mg (65 mg 325 mg PO QAM #30 tab 03/21/19 iron) tablet,delayed release thiamine HCl (vitamin B1) 100 mg 100 mg PO QAM #30 tab 03/21/19 tablet (Vitamin B-1) primidone 50 mg tablet 50 mg PO BID #180 tab 10/12/20 omeprazole 40 mg capsule,delayed 40 mg PO DAILY #90 cap 12/30/20 release amlodipine 5 mg tablet 5 mg PO DAILY #90 tab 05/26/21 atorvastatin 40 mg tablet 40 mg PO DAILY #90 tab 05/26/21 metoprolol succinate 100 mg 100 mg PO DAILY #90 tab 05/26/21 tablet,extended release 24 hr (Toprol XL) mirtazapine 30 mg tablet 30 mg PO QPM #90 tab 05/26/21 tamsulosin 0.4 mg capsule 0.4 mg PO QPM #90 cap 05/26/21 hydrocodone 10 mg-acetaminophen 2 tab PO Q6H PRN #240 tab MDD 8 06/28/21 325 mg tablet tabs losartan 25 mg tablet 25 mg PO DAILY 30 Days #30 tab 07/21/21 venlafaxine 37.5 mg 37.5 mg PO QAM 30 Days #30 cap 07/21/21 capsule,extended release 24 hr amoxicillin 500 mg tablet 500 mg PO BID 7 Days #14 tab 07/22/21 folic acid 800 mcg tablet 800 mcg PO QAM #30 tab 07/22/21 lorazepam 0.5 mg tablet 0.5 mg PO BID PRN #60 tab 07/22/21 Results & Data (ED) Vital Signs Vital Signs - 24 hr 07/25/21 17:10 Temperature 36.3 C L Temperature Source Oral Pulse Rate 82 Respiratory Rate 22 Respiratory Effort / Characteristics Non-Labored Spontaneous Respiratory Depth Normal Blood Pressure 158/91 H Blood Pressure Mean 113 Pulse Oximetry 92 Oxygen Delivery Method Room Air Sepsis Recent Fever Within 48 Hours No Sepsis New/Unexplained Change in Mental Status N/A Sepsis Action Taken by Nursing No Action Required Home Medications Current Medication List: was personally reviewed by me Laboratory Data Attestation: I reviewed the patient's lab results. Result diagrams: 07/28/21 05:58 07/28/21 05:58 Lab Results 07/25/21 07/25/21 Range/Units 17:48 17:48 WBC 9.72 (4.8-10.8) K/uL RBC 2.67 L (4.7-6.1) M/uL Hgb 8.6 L (14.0-18.0) g/dL Hct 27.2 L (42-52) % MCV 101.9 H (80-100) fL MCH 32.2 (25-34) pg MCHC 31.6 L (32-36) g/dL RDW Std Deviation 59.3 H (36.4-46.3) fL RDW Coeff of Lucas 16.0 H (11.5-14.5) % Plt Count 521 H (130-400) K/uL MPV 9.2 (7.4-10.4) fL Immature Gran % (Auto) 0.2 % Neut % (Auto) 76.9 % Lymph % (Auto) 14.4 % [place] % (Auto) 6.7 % Eos % (Auto) 1.5 % Baso % (Auto) 0.3 % Neut # (Auto) 7.47 H (1.4-6.5) K/uL Lymph # (Auto) 1.40 (1.2-3.4) K/uL [place] # (Auto) 0.65 H (0.11-0.59) K/uL Eos # (Auto) 0.15 (0-0.5) K/uL Baso # (Auto) 0.03 (0-0.2) K/uL Immature Gran # (Auto) 0.02 (0.00-0.02) K/uL Sodium 143 (136-145) mmol/L Potassium 4.6 (3.5-5.1) mmol/L Chloride 111 H (98-107) mmol/L Carbon Dioxide 28 (21-32) mmol/L Anion Gap 4.0 (3-11) BUN 52 H (7-18) mg/dl Creatinine 2.28 H (0.6-1.4) mg/dl Est Cr Clr Drug Dosing 22.4 ml/min Est GFR ( Amer) 30.5 ml/min Est GFR (Non-Af Amer) 26.3 ml/min BUN/Creatinine Ratio 22.6 H (10-20) Glucose 136 H (70-99) mg/dl Calcium 8.6 (8.5-10.1) mg/dl Magnesium 1.8 (1.8-2.4) mg/dl Total Bilirubin 0.2 (0.2-1) mg/dl AST 22 (15-37) U/L ALT 43 (12-78) U/L Alkaline Phosphatase 151 H (45-117) U/L Troponin I < 0.015 (0-0.045) ng/ml NT-Pro-B Natriuret Pep > 31978 H (0-1800) pg/ml Total Protein 6.9 (6.4-8.2) gm/dl Albumin 2.3 L (3.4-5.0) gm/dl Globulin 4.6 H (2.5-4.0) gm/dl Albumin/Globulin Ratio 0.5 L (0.9-2) TSH 5.400 H (0.300-4.500) uIu/ml Free T4 0.83 (0.8-1.6) ng/dl Administered Medications Hydrocodone Bitart/Acetaminophen (Hydrocodone/Acetaminophen 10/325 Tab) 1 tab PO Q6 PRN PRN Reason: Pain Stop: 08/08/21 22:58 Last Admin: 07/28/21 11:40 Dose: 1 tab Documented by: [id number] Admin: 07/28/21 05:31 Dose: 1 tab Documented by: [id number] Admin: 07/27/21 22:21 Dose: 1 tab Documented by: [id number] Admin: 07/27/21 15:58 Dose: 1 tab Documented by: [id number] Admin: 07/27/21 07:57 Dose: 1 tab Documented by: [id number] Admin: 07/27/21 01:18 Dose: 1 tab Documented by: [id number] Admin: 07/26/21 16:52 Dose: 1 tab Documented by: [id number] Admin: 07/26/21 11:27 Dose: 1 tab Documented by: [id number] Admin: 07/26/21 06:08 Dose: 1 tab Documented by: [id number] Admin: 07/26/21 00:05 Dose: 1 tab Documented by: [id number] Albuterol (Albut/Ipratrop 3mg/0.5mg Neb 3 Ml Vial) 3 ml NEB QIDR [facility] Stop: 08/25/21 10:59 Last Admin: 07/28/21 10:29 Dose: 3 ml Documented by: [id number] Admin: 07/28/21 07:02 Dose: 3 ml Documented by: [id number] Admin: 07/27/21 22:53 Dose: 3 ml Documented by: [id number] Admin: 07/27/21 19:31 Dose: 3 ml Documented by: [id number] Admin: 07/27/21 14:39 Dose: 3 ml Documented by: [id number] Admin: 07/27/21 10:41 Dose: 3 ml Documented by: [id number] Admin: 07/27/21 06:21 Dose: 3 ml Documented by: [id number] Admin: 07/26/21 19:18 Dose: 3 ml Documented by: [id number] Admin: 07/26/21 14:52 Dose: 3 ml Documented by: [id number] Admin: 07/26/21 10:53 Dose: 3 ml Documented by: [id number] Albuterol (Albuterol Hfa 8 Gm Inhaler) 2 puffs INH Q4H PRN PRN Reason: Wheezing Stop: 08/26/21 06:41 Last Admin: 07/27/21 22:38 Dose: 2 puffs Documented by: [id number] Amlodipine Besylate (Amlodipine Besylate 5 Mg Tab) 5 mg PO DAILY [facility] Stop: 08/25/21 08:59 Last Admin: 07/28/21 08:34 Dose: 5 mg Documented by: [id number] Admin: 07/27/21 08:10 Dose: 5 mg Documented by: [id number] Admin: 07/26/21 08:51 Dose: 5 mg Documented by: [id number] Amoxicillin (Amoxicillin 500 Mg Cap) 500 mg PO Q12H [facility]; Protocol Stop: 07/31/21 20:59 Last Admin: 07/28/21 08:33 Dose: 500 mg Documented by: [id number] Admin: 07/27/21 20:30 Dose: 500 mg Documented by: [id number] Admin: 07/27/21 08:09 Dose: 500 mg Documented by: [id number] Admin: 07/26/21 21:10 Dose: 500 mg Documented by: [id number] Aspirin (Aspirin 81 Mg Ectab) 81 mg PO QAM [facility] Stop: 08/25/21 08:59 Last Admin: 07/28/21 08:33 Dose: 81 mg Documented by: [id number] Admin: 07/27/21 08:09 Dose: 81 mg Documented by: [id number] Admin: 07/26/21 08:51 Dose: 81 mg Documented by: [id number] Atorvastatin Calcium (Atorvastatin 40 Mg Tab) 40 mg PO DAILY [facility] Stop: 08/25/21 08:59 Last Admin: 07/28/21 08:33 Dose: 40 mg Documented by: [id number] Admin: 07/27/21 08:09 Dose: 40 mg Documented by: [id number] Admin: 07/26/21 08:51 Dose: 40 mg Documented by: [id number] Ferrous Sulfate (Ferrous Sulfate 325 Mg Tab) 325 mg PO QAM [facility] Stop: 08/25/21 08:59 Last Admin: 07/27/21 08:09 Dose: 325 mg Documented by: [id number] Admin: 07/26/21 08:51 Dose: 325 mg Documented by: [id number] Folic Acid (Folic Acid 400 Mcg Tab) 800 mcg PO QAM [facility] Stop: 08/25/21 08:59 Last Admin: 07/28/21 08:33 Dose: 800 mcg Documented by: [id number] Admin: 07/27/21 08:09 Dose: 800 mcg Documented by: [id number] Admin: 07/26/21 08:51 Dose: 800 mcg Documented by: [id number] Furosemide (Furosemide 40 Mg/4 Ml Vial) 40 mg IV BID [facility] Stop: 08/26/21 08:59 Last Admin: 07/28/21 08:34 Dose: 40 mg Documented by: [id number] Admin: 07/27/21 20:31 Dose: 40 mg Documented by: [id number] Admin: 07/27/21 08:27 Dose: 40 mg Documented by: [id number] Heparin Sodium (Porcine) (Heparin Sod 5,000 Unit/0.5 Ml Vial) 5,000 units SQ Q12 [facility] Stop: 08/24/21 22:35 Last Admin: 07/28/21 08:34 Dose: 5,000 units Documented by: [id number] Admin: 07/27/21 20:31 Dose: 5,000 units Documented by: [id number] Admin: 07/27/21 08:10 Dose: 5,000 units Documented by: [id number] Admin: 07/26/21 20:54 Dose: 5,000 units Documented by: [id number] Admin: 07/26/21 08:52 Dose: 5,000 units Documented by: [id number] Admin: 07/26/21 00:05 Dose: 5,000 units Documented by: [id number] Iron Sucrose 200 mg/ Sodium (Chloride) 110 mls @ 220 mls/hr IV DAILY [facility] Stop: 07/31/21 09:29 Last Infusion: 07/28/21 09:27 Dose: 0 mls/hr Documented by: [id number] Admin: 07/28/21 08:50 Dose: 220 mls/hr Documented by: [id number] Infusion: 07/27/21 12:01 Dose: 0 mls/hr Documented by: [id number] Admin: 07/27/21 11:00 Dose: 220 mls/hr Documented by: [id number] Labetalol HCl (Labetalol Hcl Iv 5 Mg/Ml 20ml) 10 mg IV Q4 PRN PRN Reason: SBP >180 DBP >90 Stop: 08/24/21 22:35 Last Admin: 07/27/21 05:10 Dose: 10 mg Documented by: [id number] Cosigned by: [id number] Admin: 07/26/21 23:55 Dose: 10 mg Documented by: [id number] Cosigned by: [id number] Admin: 07/26/21 03:12 Dose: 10 mg Documented by: [id number] Cosigned by: [id number] Lorazepam (Lorazepam 0.5 Mg Tab) 0.5 mg PO BID PRN PRN Reason: anxiety Stop: 08/24/21 22:35 Last Admin: 07/28/21 05:31 Dose: 0.5 mg Documented by: [id number] Admin: 07/27/21 22:21 Dose: 0.5 mg Documented by: [id number] Admin: 07/27/21 07:53 Dose: 0.5 mg Documented by: [id number] Losartan Potassium (Losartan Potassium 25 Mg Tab) 25 mg PO DAILY [facility] Stop: 08/25/21 08:59 Last Admin: 07/28/21 08:33 Dose: 25 mg Documented by: [id number] Admin: 07/27/21 08:09 Dose: 25 mg Documented by: [id number] Admin: 07/26/21 08:51 Dose: 25 mg Documented by: [id number] Magnesium Oxide (Magnesium Oxide 400 Mg Tab) 400 mg PO QAM [facility] Stop: 08/26/21 08:59 Last Admin: 07/28/21 08:33 Dose: 400 mg Documented by: [id number] Admin: 07/27/21 09:41 Dose: 400 mg Documented by: [id number] Metoprolol Succinate (Metoprolol Succ 50mg Ext Rel Tab) 100 mg PO DAILY [facility] Stop: 08/25/21 08:59 Last Admin: 07/28/21 08:34 Dose: 100 mg Documented by: [id number] Admin: 07/27/21 08:09 Dose: 100 mg Documented by: [id number] Admin: 07/26/21 08:51 Dose: 100 mg Documented by: [id number] Mirtazapine (Mirtazapine Tab 15 Mg Tab) 30 mg PO QPM [facility] Stop: 08/24/21 22:35 Last Admin: 07/27/21 20:30 Dose: 30 mg Documented by: [id number] Admin: 07/26/21 20:53 Dose: 30 mg Documented by: [id number] Admin: 07/26/21 00:05 Dose: 30 mg Documented by: [id number] Multivitamins (Multivitamin Tab) 1 tab PO QAM [facility] Stop: 08/26/21 08:59 Last Admin: 07/28/21 08:33 Dose: 1 tab Documented by: [id number] Admin: 07/27/21 08:10 Dose: 1 tab Documented by: [id number] Pantoprazole Sodium (Pantoprazole 40 Mg Tab) 40 mg PO DAILY [facility] Stop: 08/25/21 08:59 Last Admin: 07/28/21 08:34 Dose: 40 mg Documented by: [id number] Admin: 07/27/21 08:10 Dose: 40 mg Documented by: [id number] Admin: 07/26/21 08:51 Dose: 40 mg Documented by: [id number] Primidone (Primidone 50 Mg Tab) 50 mg PO BID [facility] Stop: 08/24/21 22:35 Last Admin: 07/28/21 08:34 Dose: 50 mg Documented by: [id number] Admin: 07/27/21 20:29 Dose: 50 mg Documented by: [id number] Admin: 07/27/21 08:09 Dose: 50 mg Documented by: [id number] Admin: 07/26/21 20:53 Dose: 50 mg Documented by: [id number] Admin: 07/26/21 08:51 Dose: 50 mg Documented by: [id number] Admin: 07/26/21 00:05 Dose: 50 mg Documented by: [id number] Tamsulosin HCl (Tamsulosin Hcl 0.4 Mg Cap) 0.4 mg PO BID [facility] Stop: 08/25/21 20:59 Last Admin: 07/28/21 08:34 Dose: 0.4 mg Documented by: [id number] Admin: 07/27/21 20:30 Dose: 0.4 mg Documented by: [id number] Admin: 07/27/21 08:11 Dose: 0.4 mg Documented by: [id number] Admin: 07/26/21 20:52 Dose: 0.4 mg Documented by: [id number] Thiamine HCl (Thiamine Hcl 100 Mg Tab) 100 mg PO QAM [facility] Stop: 08/25/21 08:59 Last Admin: 07/28/21 08:34 Dose: 100 mg Documented by: [id number] Admin: 07/27/21 08:10 Dose: 100 mg Documented by: [id number] Admin: 07/26/21 08:51 Dose: 100 mg Documented by: [id number] Venlafaxine HCl (Venlafaxine Hcl Xr 37.5 Mg Capxr) 37.5 mg PO QAM [facility] Stop: 08/25/21 08:59 Last Admin: 07/28/21 08:34 Dose: 37.5 mg Documented by: [id number] Admin: 07/27/21 08:10 Dose: 37.5 mg Documented by: [id number] Admin: 07/26/21 08:51 Dose: 37.5 mg Documented by: [id number] Discontinued Medications Hydrocodone Bitart/Acetaminophen (Hydrocodone/Acetaminophen 10/325 Tab) 1 tab PO NOW STA Stop: 07/25/21 18:06 Last Admin: 07/25/21 18:11 Dose: 1 tab Documented by: [id number] Albuterol (Albut/Ipratrop 3mg/0.5mg Neb 3 Ml Vial) Confirm Administered Dose 3 ml .ROUTE .STK-MED ONE Stop: 07/25/21 18:36 Last Admin: 07/25/21 19:41 Dose: Not Given Documented by: [id number] Albuterol (Albuterol 0.083% Nebu Soln 3 Ml Vial) 2.5 mg NEB NOW STA Stop: 07/26/21 02:50 Last Admin: 07/26/21 02:58 Dose: 2.5 mg Documented by: [id number] Albuterol (Albuterol 0.083% Nebu Soln 3 Ml Vial) 2.5 mg NEB NOW STA Stop: 07/26/21 22:15 Last Admin: 07/26/21 22:44 Dose: 2.5 mg Documented by: [id number] Amoxicillin/Clavulanate Potassium (Amoxicillin/Clavulanate 500 Mg Tab) 1 tab PO BIDM [facility]; Protocol Stop: 07/31/21 07:59 Last Admin: 07/26/21 16:47 Dose: 1 tab Documented by: [id number] Admin: 07/26/21 08:55 Dose: 1 tab Documented by: [id number] Epoetin Maykel (Epoetin Maykel 4,000 Unit/Ml Vial) 4,000 units SQ ONE ONE Stop: 07/27/21 10:42 Last Admin: 07/27/21 11:58 Dose: 4,000 units Documented by: [id number] Furosemide (Furosemide 40 Mg/4 Ml Vial) 40 mg IV NOW STA Stop: 07/25/21 18:29 Last Admin: 07/25/21 18:44 Dose: 40 mg Documented by: [id number] Nitroglycerin/Dextrose (Nitroglycerin/D5w 100 Mcg/Ml) 250 mls @ 3 mls/hr IV .Q24H [facility]; Protocol Stop: 08/24/21 18:44 Last Titration: 07/25/21 21:07 Dose: 0 mcg/min, 0 mls/hr Documented by: [id number] Titration: 07/25/21 20:48 Dose: 0 mcg/min, 0 mls/hr Documented by: [id number] Titration: 07/25/21 20:26 Dose: 50 mcg/min, 30 mls/hr Documented by: [id number] Titration: 07/25/21 19:57 Dose: 75 mcg/min, 45 mls/hr Documented by: [id number] Titration: 07/25/21 18:52 Dose: 150 mcg/min, 90 mls/hr Documented by: [id number] Titration: 07/25/21 18:47 Dose: 100 mcg/min, 60 mls/hr Documented by: [id number] Admin: 07/25/21 18:44 Dose: 5 mcg/min, 3 mls/hr Documented by: [id number] Cosigned by: [id number] Furosemide 40 mg/ Syringe 4 mls @ 4 mls/min IV Q6H [facility] Stop: 08/25/21 00:00 Last Admin: 07/26/21 06:08 Dose: 4 mls/min Documented by: [id number] Admin: 07/26/21 00:04 Dose: 4 mls/min Documented by: [id number] Lorazepam (Ativan) 1 mg in 2 mls @ 2 mls/min IV NOW STA Stop: 07/26/21 22:35 Last Admin: 07/26/21 22:41 Dose: 2 mls/min Documented by: [id number] Furosemide 20 mg/ Syringe 2 mls @ 4 mls/min IV ONE ONE Stop: 07/27/21 01:27 Last Admin: 07/27/21 02:06 Dose: 4 mls/min Documented by: [id number] Labetalol HCl (Labetalol Hcl Iv 5 Mg/Ml 20ml) 10 mg IV NOW STA Stop: 07/25/21 20:03 Last Admin: 07/25/21 20:19 Dose: 10 mg Documented by: [id number] Cosigned by: [id number] Miscellaneous (Stat Iv Infusion Titration Per Protocol) 1 ea N/A NOW STA Stop: 07/25/21 18:37 Last Admin: 07/25/21 19:42 Dose: Not Given Documented by: [id number] Morphine Sulfate (Morphine Sulfate 2 Mg/Ml Carp) 1 mg IV NOW STA Stop: 07/27/21 23:01 Last Admin: 07/27/21 23:11 Dose: 1 mg Documented by: [id number] Nitroglycerin (Nitroglycerin Sl 0.4 Mg/Tab Tab) Confirm Administered Dose 0.4 mg .ROUTE .STK-MED ONE Stop: 07/25/21 18:27 Last Admin: 07/25/21 18:29 Dose: 0.4 mg Documented by: [id number] Nitroglycerin (Nitroglycerin Sl 0.4 Mg/Tab Tab) 0.4 mg SL NOW STA Stop: 07/25/21 18:29 Last Admin: 07/25/21 18:37 Dose: Not Given Documented by: [id number] Nitroglycerin/Dextrose (Nitroglycerin/D5w 100 Mcg/Ml Btl) Confirm Administered Dose 25 mg .ROUTE .STK-MED ONE Stop: 07/25/21 18:40 Last Admin: 07/25/21 18:51 Dose: Not Given Documented by: [id number] Tamsulosin HCl (Tamsulosin Hcl 0.4 Mg Cap) 0.4 mg PO QPM [facility] Stop: 08/24/21 22:35 Last Admin: 07/26/21 00:05 Dose: 0.4 mg Documented by: [id number] Imaging Data Radiologist's Impression: Chest X-Ray 07/25/21 17:24 XR chest 1V portable CLINICAL HISTORY: weakness TECHNIQUE: Single frontal radiograph of the chest was obtained. Comparison: Comparison is made to chest one view 07/19/2021 FINDINGS: No lines and tubes are seen. Calcified aortic knob is seen. Stable cardiomegaly is seen. Prominence and indistinctness of the pulmonary vasculature is seen with suggestion of curly B lines. No evidence of pleural effusion or pneumothorax. IMPRESSION: Moderate pulmonary edema, increased from prior exam. Stable cardiomegaly. ACT 112: Negative or not required by law. Electronically signed by: Bobo Donaldson M.D. 07/25/2021 5:49 PM Discharge Plan Visit Data Chief Complaint: Weakness Stated Complaint: WEAKNESS/SOB ED Provider: Bob Joseph Discharge Problem: Hypertensive emergency, Anemia, CHF (congestive heart failure), Dyspnea Patient Disposition: Admitted As Inpatient Discharge Instructions Interventions: ED Discharge Assessment Last Done: 07/25/21 22:32
--- NOTE | 2021-07-25 17:51 | XRay Report ---
XR chest 1V portable CLINICAL HISTORY: weakness TECHNIQUE: Single frontal radiograph of the chest was obtained. Comparison: Comparison is made to chest one view 07/19/2021 FINDINGS: No lines and tubes are seen. Calcified aortic knob is seen. Stable cardiomegaly is seen. Prominence a nd indistinctness of the pulmonary vasculature is seen with suggestion of curly B lines. No evidence of pleural effusion or pneumothorax. IMPRESSION: Moderate pulmonary edema, increased from prior exam. Stable cardiomegaly. ACT 112: Negative or not required by law. Electronically signed by: Bobo Donaldson M.D. 07/25/2021 5:49 PM
[2021-07-25 17:55] LABS: Basophils # (auto) 0.03 K/uL (0-0.2); Basophils % (auto) 0.3 %; Eosinophils # (auto) 0.15 K/uL (0-0.5); Eosinophils % (auto) 1.5 %; Hematocrit (blood only) 27.2 % (42-52); Hemoglobin 8.6 g/dL (14.0-18.0); Immature Granulocytes # (auto) 0.02 K/uL (0.00-0.02); Immature Granulocytes % (auto) 0.2 %; Lymphocytes % (auto) 14.4 %; Mean Corpuscular Hemoglobin 32.2 pg (25-34); Mean Corpuscular Hgb Conc 31.6 g/dL (32-36); Mean Corpuscular Volume 101.9 fL (80-100); Mean Platelet Volume 9.2 fL (7.4-10.4); Monocytes # (auto) 0.65 K/uL (0.11-0.59); Monocytes % (auto) 6.7 %; Neutrophils # (auto) 7.47 K/uL (1.4-6.5); Neutrophils % (auto) 76.9 %; Platelet Count 521 K/uL (130-400); RDW Standard Deviation 59.3 fL (36.4-46.3); Red Blood Count 2.67 M/uL (4.7-6.1); White Blood Count 9.72 K/uL (4.8-10.8)
[2021-07-25] MEDS ORDERED: HYDROcodone/ACETAMINOPHEN 10/325 TAB PO STA (18:05)
[2021-07-25 18:13] LABS: Alanine Aminotransferase 43 U/L (12-78); Albumin Level 2.3 gm/dl (3.4-5.0); Aspartate Aminotransferase 22 U/L (15-37); BUN Creatinine Ratio 22.6 (10-20); Blood Urea Nitrogen 52 mg/dl (7-18); Calcium 8.6 mg/dl (8.5-10.1); Carbon Dioxide 28 mmol/L (21-32); Chloride 111 mmol/L (98-107); Creatinine Clr Calc Pharmacy 22.4 ml/min; Est GFR (African American) 30.5 ml/min; Est GFR (Non-African American) 26.3 ml/min; Glucose 136 mg/dl (70-99); Magnesium 1.8 mg/dl (1.8-2.4); Potassium 4.6 mmol/L (3.5-5.1); Sodium 143 mmol/L (136-145)
[2021-07-25 18:24] LABS: Albumin Globulin Ratio 0.5 (0.9-2); Alkaline Phosphatase 151 U/L (45-117); Bilirubin,Total 0.2 mg/dl (0.2-1); Globulin 4.6 gm/dl (2.5-4.0); NT Pro B Type Natriuretic Pept > 35000 pg/ml (0-1800); Total Protein 6.9 gm/dl (6.4-8.2); Troponin I < 0.015 ng/ml (0-0.045)
[2021-07-25] MEDS ORDERED: NITROGLYCERIN SL 0.4 MG/TAB TAB ONE (18:26)
[2021-07-25] MEDS ORDERED: NITROGLYCERIN SL 0.4 MG/TAB TAB SL STA (18:28)
[2021-07-25] MEDS ORDERED: FUROSEMIDE 40 MG/4 ML VIAL IV STA (18:28)
[2021-07-25] MEDS ORDERED: ALBUT/IPRATROP 3MG/0.5MG NEB 3 ML VIAL ONE (18:35)
[2021-07-25] MEDS ORDERED: STAT IV Infusion **Titration per Protocol STA (18:36)
[2021-07-25 18:38] LABS: T4 Free Thyroxine 0.83 ng/dl (0.8-1.6)
[2021-07-25] MEDS ORDERED: NITROGLYCERIN/D5W 100 MCG/ML BTL ONE (18:39)
[2021-07-25] MEDS ORDERED: NITROGLYCERIN/D5W 100MCG/ML 250 ML IV SCH (18:45)
[2021-07-25] MEDS ORDERED: LABETALOL HCL IV 5 MG/ML 20ML IV STA (20:02)
--- NOTE | 2021-07-25 20:07 | History & Physical Report ---
Date of Service July 25, 2021 Assessment & Plan (1) Pulmonary edema: Plan: In the setting of hypertensive emergency - BP acutely lowered for respiratory suport and offloading volume - Currently improving - BiPAP for support- discussed with patient if needed later for placment - Continue diuretics- Lasix 40mg IV q6 hours scheduled- likely dc in the morning (2) Congestive heart failure: Plan: Acute on chronic heart failure exacerbation with acute pulmonary edema - As above - continue afterload reduction and preload reduction - wean both as able (3) Hypertension: Plan: HTN emergency with hpoxia/pulmonary edema - Nitroglycerine- titrate to off as able - transition to prn dosing or cardene drip if needed later - Continue with scheduled lasix - patient states he has been compliant with his medications - Continue oral agents while transitioning off IV support (4) CKD (chronic kidney disease): Plan: Stable as above- support hemodyanmics - follow with diuresing - Continue ARB (5) Anemia: Plan: AOCD and macrocytic - poor nutrition likely has a role in this as well (6) Lower urinary tract symptoms (LUTS): Plan: Follow continue tamsulosin - fisher if needed (7) GERD (gastroesophageal reflux disease): Plan: continue omeprazole (8) CAD (coronary artery disease): Plan: Continue ASA, continue BB, Continue ARB and, statin (9) Hypoalbuminemia due to protein-calorie malnutrition: Plan: Poor nutrition, patient has been on functional decline since his had passed. - supportive care History of Present Illness Chief Complaint: SOB Primary Care Provider: Юлия Harvey MD 81 YOM with past medical history of: AAA, AOCD, Anxiety, CAD, RKD, GERD, HLD, HTN, LUTS, UTI. Patient comes in today for progressive shortness of breath that started last night and was convinced to come in by his friend who checks on him. The patient was noted to be hypertensive >190/120s with crackles and CXR moderate pulmonary edema. He was tachypneic in the 28 range and required 6L/min. Patient deferred intubation by the [facility] physician at that time. He was started on Nitroglycerine drip at 100mcg/min and given Lasix 40mg IV and breathing treatment. His blood pressure came down and he is starting to diurese. His respiratory status has improved, but remains with bilaterally fine crackles. His BNP was also >35K. Troponin I was negative and his ECG has no dynamic changes The patient also has strong history of anxiety. Patient will be admitted to the ICU to wean down his afterload reducing medication and transition to oral agents if needed. The patient was recently seen in the EMD earlier for edema of his legs with popped blisters and this has greatly improved. He was also positive for E.COLI in the urine following his discharge on . He was placed on oral Amoxicillin for this and started it on . Will change his oral abx to amoxicillin/clav as this was what it was sensitive to and follow to ensure adequate response as long as patient continues to improve, this would ease transition. Low threshold to transition back to IV abx if clinically worsen. Patient COVID test on admission: NEGATIVE Allergies Allergy/AdvReac Type Severity Reaction Status Date / Time cefuroxime Allergy Unknown rash Verified 07/25/21 17:57 lisinopril Allergy itching Verified 07/25/21 17:57 Home Medications Medication Instructions Recorded Confirmed Type ferrous sulfate 325 mg (65 mg 325 mg PO QAM #30 tab 03/21/19 07/25/21 Rx iron) tablet,delayed release thiamine HCl (vitamin B1) 100 mg 100 mg PO QAM #30 tab 03/21/19 07/25/21 Rx tablet (Vitamin B-1) aspirin 81 mg tablet,delayed 81 mg PO QAM 05/06/19 07/25/21 History release cyanocobalamin (vitamin B-12) 1,000 mcg PO QAM 05/06/19 07/25/21 History 1,000 mcg tablet (Vitamin B-12) nitroglycerin 0.4 mg sublingual 0.4 mg SUBLINGUAL DIRECTED PRN 05/06/19 07/25/21 History tablet primidone 50 mg tablet 50 mg PO BID #180 tab 10/12/20 07/25/21 Rx omeprazole 40 mg capsule,delayed 40 mg PO DAILY #90 cap 12/30/20 07/25/21 Rx release amlodipine 5 mg tablet 5 mg PO DAILY #90 tab 05/26/21 07/25/21 Rx atorvastatin 40 mg tablet 40 mg PO DAILY #90 tab 05/26/21 07/25/21 Rx metoprolol succinate 100 mg 100 mg PO DAILY #90 tab 05/26/21 07/25/21 Rx tablet,extended release 24 hr (Toprol XL) mirtazapine 30 mg tablet 30 mg PO QPM #90 tab 05/26/21 07/25/21 Rx tamsulosin 0.4 mg capsule 0.4 mg PO QPM #90 cap 05/26/21 07/25/21 Rx multivitamin (Daily Multi-Vitamin) 1 tab PO DAILY 05/28/21 07/25/21 History hydrocodone 10 mg-acetaminophen 2 tab PO Q6H PRN #240 tab MDD 8 06/28/21 07/25/21 Rx 325 mg tablet tabs losartan 25 mg tablet 25 mg PO DAILY 30 Days #30 tab 07/21/21 07/25/21 Rx venlafaxine 37.5 mg 37.5 mg PO QAM 30 Days #30 cap 07/21/21 07/25/21 Rx capsule,extended release 24 hr amoxicillin 500 mg tablet 500 mg PO BID 7 Days #14 tab 07/22/21 07/25/21 Rx folic acid 800 mcg tablet 800 mcg PO QAM #30 tab 07/22/21 07/25/21 Rx lorazepam 0.5 mg tablet 0.5 mg PO BID PRN #60 tab 07/22/21 07/25/21 Rx Past Med/Surg History Medical History AAA (abdominal aortic aneurysm) Anemia of chronic disease Anxiety CAD (coronary artery disease) PTCA with stent of RCA 1994 Chronic pain Chronic renal insufficiency Essential tremor GERD (gastroesophageal reflux disease) Hyperlipidemia LDL goal <70 Hypertension Lower urinary tract symptoms (LUTS) Multiple rib fractures Opioid dependence treated with opiates for chronic low back pain for 10+ years Septal myocardial infarction Vitamin B12 deficiency Surgical History H/O heart artery stent (~1994) Family History Denies family history of Ovarian cancer Prostate cancer Myocardial infarction Breast cancer Colorectal cancer Social History Smoking Status: Current every day smoker Tobacco Type: Cigarettes Cigarettes Per Day: 10; Second Hand Exposure: No; Do You Dip or Chew Tobacco: No; Hx Alcohol Use: No Hx Substance Use: No Preferred Language: Scottish Communication Ability: Effective Visual Impairment: No Limitations Hearing Ability: Normal Law Writer Required: No Beliefs That Will Affect Care: None marital status: / Current Living Situation: Alone Current Living Situation Comment: Alone at home in apartment after of in March current occupational status: 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 Other Information That Helps Us Care for You: No Feels Safe at Home: Yes Safety Concerns: Feels Safe At This Time Childhood Exposure to Second-Hand Smoke: Yes Dental Care, Regularly: No Physical Activity Frequency: Does not Exercise Seatbelt Use: always Sunscreen Use: No (doesn't really go outside ) Assistive Devices: None Review of Systems Review of Systems: REVIEW OF SYSTEMS: Constitutional: No fever, sweats or chills Eyes: No diplopia, no worsening or blurred vision ENT: normal hearing, no trouble swallowing Respiratory: (+) cough, sputum, dyspnea Cardiovascular: (+) edema lower extremities, No chest pain, tightness or palpitations Abdomen: No pain, nausea, vomiting, diarrhea or constipation Musculoskeletal: No joint pain, calf pain, swelling Neurologic: No weakness, numbness/tingling, or balance problems Psychiatric: (+) anxiety Skin: No rash or itch Physical Exam Physical Exam: PHYSICAL EXAM: General: awake, alert, remains tachypneic but improving Head: Normocephalic, atraumatic ENT: PERRL, EOMI, no pharyngeal exudate, mucous membranes moist Neuro: AAO x 3, speech clear and appropriate, strength intact bilaterally 5/5, sensation intact and equal all extremities and dermatomes, no pronator drift Chest: equal rise and fall of the chest, scattered crackles and expiratory wheeze throughout on auscultation, on 6LNC, Cardiac: Regular rate and rhythm, telemetry reviewed, skin warm dry, cap refill <3 seconds, peripheral pulses +2, +2edema to knees- this is also related to his poor nutritional status. GI: NABS x 4 quadrants, soft, nontender to palpation, no rebound, guarding or tenderness : Spontaneously voiding, no pain, no CVA tenderness, Extremities: Normal inspection, no peripheral edema or erythema, calfs nontender to palpation Psych: Normal mood and affect Skin: no rash or erythema Results & Data Results & Data ([facility]) Vital Signs (Past 12 Hours) Vital Signs Temp Pulse Pulse Resp BP BP Pulse Ox 07/25/21 19:40 75 18 162/87 H 94 07/25/21 19:30 75 19 159/87 H 96 07/25/21 19:20 76 12 164/88 H 95 07/25/21 19:10 76 18 165/92 H 94 07/25/21 19:00 78 16 166/90 H 96 07/25/21 18:57 78 16 166/98 H 96 07/25/21 18:55 81 18 161/84 H 97 07/25/21 18:50 90 16 173/99 H 99 07/25/21 18:39 115 H 28 H 92 07/25/21 18:00 84 17 177/104 H 93 07/25/21 17:24 82 14 93 07/25/21 17:10 36.3 C L 82 22 158/91 H 92 07/25/21 16:56 93 Laboratory Results Abnormal lab results 07/25/21 07/25/21 Range/Units 17:48 17:48 RBC 2.67 L (4.7-6.1) M/uL Hgb 8.6 L (14.0-18.0) g/dL Hct 27.2 L (42-52) % MCV 101.9 H (80-100) fL MCHC 31.6 L (32-36) g/dL RDW Std Deviation 59.3 H (36.4-46.3) fL RDW Coeff of Lucas 16.0 H (11.5-14.5) % Plt Count 521 H (130-400) K/uL Neut # (Auto) 7.47 H (1.4-6.5) K/uL [place] # (Auto) 0.65 H (0.11-0.59) K/uL Chloride 111 H (98-107) mmol/L BUN 52 H (7-18) mg/dl Creatinine 2.28 H (0.6-1.4) mg/dl BUN/Creatinine Ratio 22.6 H (10-20) Glucose 136 H (70-99) mg/dl Alkaline Phosphatase 151 H (45-117) U/L NT-Pro-B Natriuret Pep > 61555 H (0-1800) pg/ml Albumin 2.3 L (3.4-5.0) gm/dl Globulin 4.6 H (2.5-4.0) gm/dl Albumin/Globulin Ratio 0.5 L (0.9-2) TSH 5.400 H (0.300-4.500) uIu/ml Diagnostic Findings Chest X-Ray 07/25/21 17:24 XR chest 1V portable CLINICAL HISTORY: weakness TECHNIQUE: Single frontal radiograph of the chest was obtained. Comparison: Comparison is made to chest one view 07/19/2021 FINDINGS: No lines and tubes are seen. Calcified aortic knob is seen. Stable cardiomegaly is seen. Prominence and indistinctness of the pulmonary vasculature is seen with suggestion of curly B lines. No evidence of pleural effusion or pneumothorax. IMPRESSION: Moderate pulmonary edema, increased from prior exam. Stable cardiomegaly. ACT 112: Negative or not required by law. Electronically signed by: Bobo Donaldson M.D. 07/25/2021 5:49 PM Medications Administered Nitroglycerin/Dextrose (Nitroglycerin/D5w 100 Mcg/Ml) 250 mls @ 3 mls/hr IV .Q24H [facility]; Protocol Stop: 08/24/21 18:44 Last Titration: 07/25/21 19:57 Dose: 75 mcg/min, 45 mls/hr Documented by: [id number] Titration: 07/25/21 18:52 Dose: 150 mcg/min, 90 mls/hr Documented by: [id number] Titration: 07/25/21 18:47 Dose: 100 mcg/min, 60 mls/hr Documented by: [id number] Admin: 07/25/21 18:44 Dose: 5 mcg/min, 3 mls/hr Documented by: [id number] Cosigned by: [id number] Discontinued Medications Hydrocodone Bitart/Acetaminophen (Hydrocodone/Acetaminophen 10/325 Tab) 1 tab PO NOW STA Stop: 07/25/21 18:06 Last Admin: 07/25/21 18:11 Dose: 1 tab Documented by: [id number] Albuterol (Albut/Ipratrop 3mg/0.5mg Neb 3 Ml Vial) Confirm Administered Dose 3 ml .ROUTE .STK-MED ONE Stop: 07/25/21 18:36 Last Admin: 07/25/21 19:41 Dose: Not Given Documented by: [id number] Furosemide (Furosemide 40 Mg/4 Ml Vial) 40 mg IV NOW STA Stop: 07/25/21 18:29 Last Admin: 07/25/21 18:44 Dose: 40 mg Documented by: [id number] Miscellaneous (Stat Iv Infusion Titration Per Protocol) 1 ea N/A NOW STA Stop: 07/25/21 18:37 Last Admin: 07/25/21 19:42 Dose: Not Given Documented by: [id number] Nitroglycerin (Nitroglycerin Sl 0.4 Mg/Tab Tab) Confirm Administered Dose 0.4 mg .ROUTE .STK-MED ONE Stop: 07/25/21 18:27 Last Admin: 07/25/21 18:29 Dose: 0.4 mg Documented by: [id number] Nitroglycerin (Nitroglycerin Sl 0.4 Mg/Tab Tab) 0.4 mg SL NOW STA Stop: 07/25/21 18:29 Last Admin: 07/25/21 18:37 Dose: Not Given Documented by: [id number] Nitroglycerin/Dextrose (Nitroglycerin/D5w 100 Mcg/Ml Btl) Confirm Administered Dose 25 mg .ROUTE .STK-MED ONE Stop: 07/25/21 18:40 Last Admin: 07/25/21 18:51 Dose: Not Given Documented by: [id number] ECG Additional Comments: Normal sinus rhythm Nonspecific T wave abnormality Prolonged QT Abnormal ECG When compared with ECG of 19-JUL-2021 20:30, Nonspecific T wave abnormality now evident in Anterior leads Code Status & VTE Plan VTE Prophylaxis Plan VTE Prophylaxis will be ordered: Yes Supervising Physician Co-Signing Physician Notes 81 yo male is seen and examined at bedside. During face to face encounter with patient, obtained a history and physical examination. Discussed case with SOHAIL Espinosa and answered all of the patient's questions. I reviewed above note and agree with it. Patient is admitted for hypertensive emergency with pulmonary edema.Will be admitted and weaned off nitro drip. Patient will be given intermittent doses of beta blockers to help wean him off PG Care Time/CCT Total # of Minutes Spent Total Time Spent with Patient: Total time spent is greater than 50% in coordination of care (as documented) at patient's floor/unit and/or counseling patient: Coding Level of Care Code 80290 Initial Inpt Care Lvl 3 Diagnoses Congestive heart failure I50.9 Pulmonary edema J81.1 CKD (chronic kidney disease) N18.9 Chronic kidney disease stage: unspecified stage Hypertension I10 Anemia D64.9 Lower urinary tract symptoms (LUTS) R39.9 GERD (gastroesophageal reflux disease) K21.9 CAD (coronary artery disease) I25.10 Hypoalbuminemia due to protein-calorie malnutrition E46 (1) CKD (chronic kidney disease) Chronic kidney disease stage: unspecified stage Qualified Code(s): N18.9 - Chronic kidney disease, unspecified
--- NOTE | 2021-07-25 21:12 | Critical Care Consultation ---
Date of Consultation July 25, 2021 Assessment & Plan (1) Pulmonary edema: Impression: 81-year-old male presents with acute on chronic CHF exacerbation with pulmonary edema secondary to hypertensive urgency. Neuro - Anxiety: Continue home med lorazepam twice daily Cardiac - Hypertensive emergency/acute on chronic CHF exacerbationpatient with initial SBP 190s, was temporarily on nitro drip which is since been weaned off -Last echo with diastolic heart failure with EF 50 to 55% -Recommend IV labetalol as needed for SBP control less than 160 -Agree with diuresis, continue IV Lasix every 6 hours - continue MTP, amlodipine, losartan home meds -Continue ASA, statin -Recommend admitting to PCU/telemetry. If further antihypertensive drips or patient was to decompensate, can transfer to ICU level of care Respiratory - Hypoxic respiratory failuresecondary to acute pulmonary edema. Improving -Patient now maintaining oxygen saturation on 2 L nasal cannula without respiratory distress. Lungs now clear to auscultation -Would recommend BiPAP in the event of worsening hypoxia/pulmonary edema. Patient is DNI per CODE STATUS -Continue diuresis -Continuous monitoring pulse ox, wean oxygen as tolerated GI - Heart healthy diet RENAL/LYTES - CKDcreatinine 2.28 seems to be consistent with prior admissions -We will trend with routine BMPs as patient is being aggressively diuresed -Monitor - BPHcontinue tamsulosin Strict I's and O's ENDO - No history of diabetes, hyperglycemic protocol TSH elevated with normal T4 HEME - Anemiahemoglobin stable, continue ferrous sulfate ID - Patient with recent UTI with urine culture growing E. coli on 07/19. Continue Augmentin p.o. LINES/IV ACCESS - Peripheral IVs DVT PROPHYLAXIS - SCDs, heparin subcu Thank you for allowing us to participate in the care of this patient. Please refer to my attending physician's documentation for any further recommendations. (2) Congestive heart failure: (3) Bilateral edema of lower extremity: (4) Elevated brain natriuretic peptide (BNP) level: (5) CKD (chronic kidney disease): (6) SOB (shortness of breath): (7) Respiratory failure with hypoxia: (8) Hypertension: (9) Lower urinary tract symptoms (LUTS): (10) Anemia: (11) AAA (abdominal aortic aneurysm): (12) GERD (gastroesophageal reflux disease): (13) Hyperlipidemia LDL goal <70: (14) CAD (coronary artery disease): (15) Anxiety: (16) Hypertensive emergency: History of Present Illness History of Present Illness Patient is a 81-year-old male with past medical history of diastolic heart failure, CAD, CKD AAA, anemia, GERD, HLD, HTN who presented to the emergency department with complaints of shortness of breath and weakness. He had a recent admission with bilateral lower extremity edema and blisters and UTI. Patient w as recently discharged home and sees home health. In the emergency department this evening, patient was noted to be significantly hypertensive with systolic blood pressure in the 190s, hypoxic, tachypneic with respiratory distress, and diffuse bilateral crackles. He was started on nitro drip and given IV Lasix. Patient also received 10 mg IV labetalol. On my evaluation in the emergency department, patient appeared to be significantly improved following intervention. He was no longer having shortness of breath or tachypnea. Systolic blood pressure was in the 150s and nitro drip now weaned off. He is down to 2 L nasal cannula and lungs are clear to auscultation. Patient's family member in the room stated that he had audible crackles initially in the emergency department which have now receded. Patient states that he feels much better and he is no longer in distress. Initially plan was to admit patient to ICU due to his critical status, however he is responded remarkably well to current therapy and I think at this point it is safe to admit to PCU/telemetry. Recommended IV labetalol as needed and restarting home antihypertensive regimen. Agree with diuresis and BiPAP as nee ded, however he did not require BiPAP at the time of my exam. If patient were to need ICU level of care, please recontact ICU team/provider. Will sign off at this time. Allergies Allergy/AdvReac Type Severity Reaction Status Date / Time cefuroxime Allergy Unknown rash Verified 07/25/21 17:57 lisinopril Allergy itching Verified 07/25/21 17:57 Home Medications Medication Instructions Recorded Confirmed Type ferrous sulfate 325 mg (65 mg 325 mg PO QAM #30 tab 03/21/19 07/25/21 Rx iron) tablet,delayed release thiamine HCl (vitamin B1) 100 mg 100 mg PO QAM #30 tab 03/21/19 07/25/21 Rx tablet (Vitamin B-1) aspirin 81 mg tablet,delayed 81 mg PO QAM 05/06/19 07/25/21 History release cyanocobalamin (vitamin B-12) 1,000 mcg PO QAM 05/06/19 07/25/21 History 1,000 mcg tablet (Vitamin B-12) nitroglycerin 0.4 mg sublingual 0.4 mg SUBLINGUAL DIRECTED PRN 05/06/19 07/25/21 History tablet primidone 50 mg tablet 50 mg PO BID #180 tab 10/12/20 07/25/21 Rx omeprazole 40 mg capsule,delayed 40 mg PO DAILY #90 cap 12/30/20 07/25/21 Rx release amlodipine 5 mg tablet 5 mg PO DAILY #90 tab 05/26/21 07/25/21 Rx atorvastatin 40 mg tablet 40 mg PO DAILY #90 tab 05/26/21 07/25/21 Rx metoprolol succinate 100 mg 100 mg PO DAILY #90 tab 05/26/21 07/25/21 Rx tablet,extended release 24 hr (Toprol XL) mirtazapine 30 mg tablet 30 mg PO QPM #90 tab 05/26/21 07/25/21 Rx tamsulosin 0.4 mg capsule 0.4 mg PO QPM #90 cap 05/26/21 07/25/21 Rx multivitamin (Daily Multi-Vitamin) 1 tab PO DAILY 05/28/21 07/25/21 History hydrocodone 10 mg-acetaminophen 2 tab PO Q6H PRN #240 tab MDD 8 06/28/21 07/25/21 Rx 325 mg tablet tabs losartan 25 mg tablet 25 mg PO DAILY 30 Days #30 tab 07/21/21 07/25/21 Rx venlafaxine 37.5 mg 37.5 mg PO QAM 30 Days #30 cap 07/21/21 07/25/21 Rx capsule,extended release 24 hr amoxicillin 500 mg tablet 500 mg PO BID 7 Days #14 tab 07/22/21 07/25/21 Rx folic acid 800 mcg tablet 800 mcg PO QAM #30 tab 07/22/21 07/25/21 Rx lorazepam 0.5 mg tablet 0.5 mg PO BID PRN #60 tab 07/22/21 07/25/21 Rx Patient History Medical History AAA (abdominal aortic aneurysm) Anemia of chronic disease Anxiety CAD (coronary artery disease) PTCA with stent of RCA 1994 Chronic pain Chronic renal insufficiency Essential tremor GERD (gastroesophageal reflux disease) Hyperlipidemia LDL goal <70 Hypertension Lower urinary tract symptoms (LUTS) Multiple rib fractures Opioid dependence treated with opiates for chronic low back pain for 10+ years Septal myocardial infarction Vitamin B12 deficiency Surgical History H/O heart artery stent (~1994) Family History Denies family history of Ovarian cancer Prostate cancer Myocardial infarction Breast cancer Colorectal cancer Social History Smoking Status: Current some day smoker Tobacco Type: Cigarettes Cigarettes Per Day: 1/2 pack; Second Hand Exposure: No; Hx Alcohol Use: No Hx Substance Use: No Preferred Language: Estonian Communication Ability: Effective Visual Impairment: No Limitations Hearing Ability: Normal Special Education Science Teacher Required: No Beliefs That Will Affect Care: None marital status: / Current Living Situation: Alone Current Living Situation Comment: Alone at home in apartment after of in March current occupational status: 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 Feels Safe at Home: Yes Childhood Exposure to Second-Hand Smoke: Yes Dental Care, Regularly: No Physical Activity Frequency: Does not Exercise Seatbelt Use: always Sunscreen Use: No (doesn't really go outside ) Assistive Devices: Glasses and Walker Review of Systems Review of Systems: All systems reviewed & are unremarkable except as noted in HPI & below Physical Exam Constitutional: cooperative and comfortable; no acute distress and not diaphoretic Eyes: PERRL, conjunctivae normal, anicteric sclerae ENMT: external ear and nose normal, oropharynx normal Neck: trachea midline, no thyromegaly Respiratory: normal respiratory effort, lungs clear to auscultation no labored breathing, does not use accessory muscles, no cough, not tachypneic, no audible wheezes and no stridor Auscultation: no crackles and no wheezes Cardiovascular: Rate/Rhythm: regular rate and regular rhythm Vessels: no JVD Extremities: + edema (+1 edema bilateral lower extremity) Gastrointestinal (Abdomen): normal bowel sounds, soft, nontender, no he patosplenomegaly Neurologic: PERRL, EOMI, accommodation nl, no face palsy, no dysarthria Psychiatric: A+Ox3, euthymic affect Results & Data Results & Data ([facility]) Vital Signs (Past 12 Hours) Vital Signs Temp Pulse Pulse Resp BP BP Pulse Ox 07/25/21 20:40 74 12 152/75 H 99 07/25/21 20:38 78 18 140/74 98 07/25/21 20:30 70 13 147/74 H 97 07/25/21 20:20 72 13 130/78 97 07/25/21 20:10 69 13 154/85 H 93 07/25/21 20:00 68 12 156/86 H 99 07/25/21 19:50 89 20 147/88 H 98 07/25/21 19:40 75 18 162/87 H 94 07/25/21 19:30 75 19 159/87 H 96 07/25/21 19:20 76 12 164/88 H 95 07/25/21 19:10 76 18 165/92 H 94 07/25/21 19:00 78 16 166/90 H 96 07/25/21 18:57 78 16 166/98 H 96 07/25/21 18:55 81 18 161/84 H 97 07/25/21 18:50 90 16 173/99 H 99 07/25/21 18:39 115 H 28 H 92 07/25/21 18:00 84 17 177/104 H 93 07/25/21 17:24 82 14 93 07/25/21 17:10 36.3 C L 82 22 158/91 H 92 07/25/21 16:56 93 Coding Level of Care Code 41085 Inpt Consult Level 3 Diagnoses Pulmonary edema J81.1 Congestive heart failure I50.9 Bilateral edema of lower extremity R60.0 Elevated brain natriuretic peptide (BNP) level R79.89 CKD (chronic kidney disease) N18.9 Chronic kidney disease stage: unspecified stage SOB (shortness of breath) R06.02 Respiratory failure with hypoxia J96.91 Hypertension I10 Lower urinary tract symptoms (LUTS) R39.9 Anemia D64.9 AAA (abdominal aortic aneurysm) I71.4 GERD (gastroesophageal reflux disease) K21.9 Hyperlipidemia LDL goal <70 E78.5 CAD (coronary artery disease) I25.10 Anxiety F41.9 Hypertensive emergency I16.1 (1) CKD (chronic kidney disease) Chronic kidney disease stage: unspecified stage Qualified Code(s): N18.9 - Chronic kidney disease, unspecified
[2021-07-25] MEDS ORDERED: NITROGLYCERIN SL 0.4 MG/TAB TAB SL PRN (22:36)
[2021-07-25] MEDS ORDERED: TAMSULOSIN HCL 0.4 MG CAP PO SCH (22:36)
[2021-07-26] MEDS ORDERED: FUROSEMIDE 40 MG/4 ML VIAL IV SCH
[2021-07-26] MEDS: FUROSEMIDE 40 MG in SYRINGE 0 ML IV SCH ×2 (00:04→06:08)
[2021-07-26] MEDS: HYDROcodone/ACETAMINOPHEN 10/325 TAB PO PRN ×4 (00:05→16:52)
[2021-07-26] MEDS: HEPARIN SOD 5,000 UNIT/0.5 ML VIAL SQ SCH ×3 (00:05→20:54)
[2021-07-26] MEDS: PRIMIDONE 50 MG TAB PO SCH ×3 (00:05→20:53)
[2021-07-26] MEDS: MIRTAZAPINE TAB 15 MG TAB PO SCH ×2 (00:05→20:53)
[2021-07-26] MEDS ORDERED: ALBUTEROL 0.083% NEBU SOLN 3 ML VIAL NEB STA ×2 (02:49→22:14)
[2021-07-26] MEDS: LABETALOL HCL IV 5 MG/ML 20ML IV PRN ×2 (03:12→23:55)
[2021-07-26 07:25] LABS: Basophils # (auto) 0.03 K/uL (0-0.2); Basophils % (auto) 0.3 %; Eosinophils # (auto) 0.22 K/uL (0-0.5); Eosinophils % (auto) 2.5 %; Hematocrit (blood only) 23.8 % (42-52); Hemoglobin 7.5 g/dL (14.0-18.0); Immature Granulocytes # (auto) 0.01 K/uL (0.00-0.02); Immature Granulocytes % (auto) 0.1 %; Lymphocytes # (auto) 1.35 K/uL (1.2-3.4); Lymphocytes % (auto) 15.1 %; Mean Corpuscular Hemoglobin 32.2 pg (25-34); Mean Corpuscular Hgb Conc 31.5 g/dL (32-36); Mean Corpuscular Volume 102.1 fL (80-100); Mean Platelet Volume 9.3 fL (7.4-10.4); Monocytes # (auto) 0.58 K/uL (0.11-0.59); Monocytes % (auto) 6.5 %; Neutrophils # (auto) 6.73 K/uL (1.4-6.5); Neutrophils % (auto) 75.5 %; Platelet Count 486 K/uL (130-400); RDW Coefficient of Variation 16.1 % (11.5-14.5); RDW Standard Deviation 59.6 fL (36.4-46.3); Red Blood Count 2.33 M/uL (4.7-6.1); White Blood Count 8.92 K/uL (4.8-10.8)
[2021-07-26 07:55] LABS: BUN Creatinine Ratio 22.5 (10-20); Calcium 8.8 mg/dl (8.5-10.1); Creatinine Clr Calc Pharmacy 21.1 ml/min; Est GFR (African American) 30.3 ml/min; Est GFR (Non-African American) 26.2 ml/min; Magnesium 1.9 mg/dl (1.8-2.4); Potassium 4.4 mmol/L (3.5-5.1)
[2021-07-26 07:58] LABS: Macrocytosis Present
[2021-07-26] MEDS: ATORVASTATIN 40 MG TAB PO SCH (08:51)
[2021-07-26] MEDS: LOSARTAN POTASSIUM 25 MG TAB PO SCH (08:51)
[2021-07-26] MEDS: amLODIPine BESYLATE 5 MG TAB PO SCH (08:51)
[2021-07-26] MEDS: PANTOprazole 40 MG TAB PO SCH (08:51)
[2021-07-26] MEDS: FERROUS SULFATE 325 MG TAB PO SCH (08:51)
[2021-07-26] MEDS: ASPIRIN 81 MG ECTAB PO SCH (08:51)
[2021-07-26] MEDS: THIAMINE HCL 100 MG TAB PO SCH (08:51)
[2021-07-26] MEDS: FOLIC ACID 400 MCG TAB PO SCH (08:51)
[2021-07-26] MEDS: VENLAFAXINE HCL XR 37.5 MG CAPXR PO SCH (08:51)
[2021-07-26] MEDS: METOPROLOL SUCC 50MG EXT REL TAB PO SCH (08:51)
[2021-07-26] MEDS: AMOXICILLIN/CLAVULANATE 500 MG TAB PO SCH ×2 (08:55→16:47)
--- NOTE | 2021-07-26 10:35 | Hospitalist Progress Note ---
Date of Service July 26, 2021 Assessment & Plan (1) Pulmonary edema: Plan: Continue to aim negative balance 1-1.5L per day. Now urinary retention resolved with Fisher cath will reduce Lasix to 40mg IV daily as not on diuretics at home. Low Na, fluid restricted diet. (2) Hypoxia: Plan: Suspect from pulmonary edema as above. Continue to wean to aim O2 < 90%. Will continue duonebs but low suspicion of COPD from exam and alternative more likely diagnosis and lack of prior history of this. (3) Congestive heart failure: Plan: Acute on chronic heart failure exacerbation with acute pulmonary edema TTE - unremarkable - suspect fluid retention as a result of CKD and urine retention (4) Hypertensive emergency: Plan: Resolving with IV Lasix. Labetalol given at 3am this morning but not required ongoing dosing. Suspect secondary to fluid retention. Should continue to resolve now fisher catheter in place and will reduce Lasix as above. (5) CKD (chronic kidney disease): Plan: Stage IV. Protein/Cr ratio pending for full staging. With concurrent anemia without iron def, B12 or folate def. will get workup for myeloma and consult nephrology. (6) Anemia: Plan: r/o myeloma with 24 hour UPEP, serum SPEP, FLC assay and immunofixation - follow up with PCP/nephrology for results Suspect anemia of CKD and appears stable. Will defer EPO to nephrology. Repeat iron studies as most recently performed in May. (7) Lower urinary tract symptoms (LUTS): Plan: Follow continue tamsulosin Urine retention on bladder scan and renal US - fisher catheter placed. Possible reason for worsening CKD and fluid retention. PSA WNL. Will need urology follow up on discharge. (8) GERD (gastroesophageal reflux disease): Plan: Switch omeprazole for pantoprazole per hospital formulary (9) CAD (coronary artery disease): Plan: Continue ASA, continue BB, Continue ARB and, statin (10) Hypoalbuminemia due to protein-calorie malnutrition: Plan: Poor nutrition, patient has been on functional decline since his had passed. - supportive care (11) Severe protein-calorie malnutrition: Plan: Boost (12) UTI (urinary tract infection): Plan: Low suspicion of prostate infection with normal PSA. Will continue on amoxicillin (no need for Augmentin given sensitivity to ampicillin). Plan: VTE Prophylaxis - heparin 5000 units SQ BID Diet - heart healthy, low Na, Fluid restrict 1500ml Disposition - continue on PCU Admission and Anticipated Discharge Date Admission Date: July 25, 2021 Subjective Reports increasing problems passing urine recently. Feels his shortness of breath is secondary to this straining. Mild improveement since admission in shortness of breath. No chest pain. [place] improved with duoneb given in ER and request these to continue, no known COPD but lifelong smoker. Updated his daughter (Allison) over the phone. Review of Systems Review of Systems: All systems reviewed & are unremarkable except as noted in HPI & below Physical Exam Constitutional: well developed, + cachectic and + frail appearing; + not well nourished and no acute distress ENMT: external ear and nose normal, oropharynx normal Neck: trachea midline, no thyromegaly Respiratory: normal respiratory effort, lungs clear to auscultation no labored breathing, does not use accessory muscles, no cough, not tachypneic, no audible wheezes and no stridor Auscultation: + diminished lung sounds (throughout); no crackles and no wheezes Cardiovascular: Rate/Rhythm: regular rate and regular rhythm Vessels: no JVD Extremities: + edema (+1 edema bilateral lower extremity) Gastrointestinal (Abdomen): normal bowel sounds, soft, nontender, no hepatosplenomegaly Neurologic: moves all extremities and awake; not confused Psychiatric: A+Ox3, euthymic affect Results & Data Results & Data ([facility]) Vital Signs (Past 12 Hours) Vital Signs Temp Pulse Pulse Resp BP Pulse Ox 07/26/21 07:34 36.5 C 75 17 170/81 H 95 07/26/21 05:06 86 172/89 H 07/26/21 04:06 36.8 C 80 16 172/69 H 93 07/26/21 03:10 75 168/92 H 07/26/21 02:58 83 22 97 07/25/21 22:42 36.4 C L 79 18 168/83 H 92 PG Care Time/CCT Total # of Minutes Spent Total Time Spent with Patient: Total time spent is greater than 50% in coordination of care (as documented) at patient's floor/unit and/or counseling patient: Coding Level of Care Code 11767 Subseq Hosp Care Lvl 3 Diagnoses Pulmonary edema J81.1 Congestive heart failure I50.9 CKD (chronic kidney disease) N18.9 Chronic kidney disease stage: unspecified stage Anemia D64.9 Lower urinary tract symptoms (LUTS) R39.9 GERD (gastroesophageal reflux disease) K21.9 CAD (coronary artery disease) I25.10 Hypoalbuminemia due to protein-calorie malnutrition E46 Hypertensive emergency I16.1 Hypoxia R09.02 Severe protein-calorie malnutrition E43 UTI (urinary tract infection) N39.0 (1) CKD (chronic kidney disease) Chronic kidney disease stage: unspecified stage Qualified Code(s): N18.9 - Chronic kidney disease, unspecified
[2021-07-26] MEDS: ALBUT/IPRATROP 3MG/0.5MG NEB 3 ML VIAL NEB SCH ×3 (10:53→19:18)
--- NOTE | 2021-07-26 14:05 | Ultrasound Report ---
ULTRASOUND KIDNEYS AND BLADDER CLINICAL HISTORY: Chronic kidney disease. COMPARISON STUDY: Abdominal CT dated 03/04/2019. TECHNIQUE: Real-time, grayscale, and color flow sonography of the kidneys and bladder is performed. I mages are reviewed in the transverse and longitudinal planes. FINDINGS: Kidneys: The kidneys demonstrate mild cortical atrophy and increased echotexture. The right kidney me asures 10.5 x 4.0 x 5.3 cm and the left kidney measures 8.8 x 3.6 x 3.3 cm. There is no hydronephros is. No shadowing renal calculi are identified. There is no sonographic evidence of contour deforming renal mass lesion. Trace perinephric fluid is seen bilaterally. Bladder: The bladder wall appears mildly thickened and trabeculated indicating chronic outlet obstruc tion. Bilateral ureteral jets were seen. The bladder volume measures 566 cc. IMPRESSION: 1. The kidneys demonstrate mild cortical atrophy and increased cortical echotexture consistent with m edical renal disease. 2. There is no hydronephrosis. 3. The bladder is distended with evidence of chronic outlet obstruction. 4. Trace nonspecific perinephric fluid is seen bilaterally. ACT 112: Negative or not required by law. Electronically signed by: Andrew Watkins M.D. 07/26/2021 2:03 PM
[2021-07-26 17:00] LABS: Hematocrit (blood only) 23.5 % (42-52); Hemoglobin 7.5 g/dL (14.0-18.0)
[2021-07-26] MEDS ORDERED: FUROSEMIDE 40 MG in SYRINGE 0 ML IV SCH (17:00)
[2021-07-26] MEDS: TAMSULOSIN HCL 0.4 MG CAP PO SCH (20:52)
[2021-07-26] MEDS: AMOXICILLIN 500 MG CAP PO SCH (21:10)
[2021-07-26] MEDS ORDERED: LORazepam 1 MG/2 ML VIAL IV STA (22:34)
[2021-07-27] MEDS: HYDROcodone/ACETAMINOPHEN 10/325 TAB PO PRN ×4 (01:18→22:21)
[2021-07-27] MEDS ORDERED: FUROSEMIDE 20 MG in SYRINGE 0 ML IV ONE (01:26)
--- NOTE | 2021-07-27 04:50 | Electrocardiogram Report ---
Test Reason : Blood Pressure : / mmHG Vent. Rate : 079 BPM Atrial Rate : 079 BPM P-R Int : 124 ms QRS Dur : 084 ms QT Int : 406 ms P-R-T Axes : 067 059 082 degrees QTc Int : 465 ms Normal sinus rhythm Nonspecific T wave abnormality Abnormal ECG When compared with ECG of 19-JUL-2021 20:30, No significant change Confirmed by Wes Lai ([id number]) on 07/27/2021 4:49:47 AM Referred By: REFERRED SELF Confirmed By:Wes Lai
[2021-07-27] MEDS: LABETALOL HCL IV 5 MG/ML 20ML IV PRN (05:10)
[2021-07-27] MEDS: ALBUT/IPRATROP 3MG/0.5MG NEB 3 ML VIAL NEB SCH ×5 (06:21→22:53)
[2021-07-27] MEDS ORDERED: ALBUTEROL HFA 8 GM INHALER INH PRN (06:42)
[2021-07-27 06:50] LABS: Basophils # (auto) 0.03 K/uL (0-0.2); Basophils % (auto) 0.3 %; Eosinophils # (auto) 0.21 K/uL (0-0.5); Hematocrit (blood only) 24.1 % (42-52); Hemoglobin 7.7 g/dL (14.0-18.0); Immature Granulocytes # (auto) 0.03 K/uL (0.00-0.02); Immature Granulocytes % (auto) 0.3 %; Lymphocytes # (auto) 1.32 K/uL (1.2-3.4); Lymphocytes % (auto) 12.8 %; Mean Corpuscular Hemoglobin 32.2 pg (25-34); Mean Corpuscular Volume 100.8 fL (80-100); Mean Platelet Volume 9.3 fL (7.4-10.4); Monocytes # (auto) 0.74 K/uL (0.11-0.59); Monocytes % (auto) 7.2 %; Neutrophils % (auto) 77.4 %; Platelet Count 493 K/uL (130-400); RDW Coefficient of Variation 15.7 % (11.5-14.5); RDW Standard Deviation 58.5 fL (36.4-46.3); Red Blood Count 2.39 M/uL (4.7-6.1); White Blood Count 10.33 K/uL (4.8-10.8)
[2021-07-27 07:29] LABS: BUN Creatinine Ratio 20.6 (10-20); Calcium 8.8 mg/dl (8.5-10.1); Creatinine Clr Calc Pharmacy 18.5 ml/min; Est GFR (African American) 27.2 ml/min; Est GFR (Non-African American) 23.4 ml/min; Magnesium 1.7 mg/dl (1.8-2.4); Potassium 4.3 mmol/L (3.5-5.1)
[2021-07-27 07:34] LABS: Ferritin 37.3 ng/ml (8-388)
[2021-07-27] MEDS: LORazepam 0.5 MG TAB PO PRN ×2 (07:53→22:21)
[2021-07-27] MEDS: FERROUS SULFATE 325 MG TAB PO SCH (08:09)
[2021-07-27] MEDS: PRIMIDONE 50 MG TAB PO SCH ×2 (08:09→20:29)
[2021-07-27] MEDS: ATORVASTATIN 40 MG TAB PO SCH (08:09)
[2021-07-27] MEDS: METOPROLOL SUCC 50MG EXT REL TAB PO SCH (08:09)
[2021-07-27] MEDS: LOSARTAN POTASSIUM 25 MG TAB PO SCH (08:09)
[2021-07-27] MEDS: AMOXICILLIN 500 MG CAP PO SCH ×2 (08:09→20:30)
[2021-07-27] MEDS: FOLIC ACID 400 MCG TAB PO SCH (08:09)
[2021-07-27] MEDS: ASPIRIN 81 MG ECTAB PO SCH (08:09)
[2021-07-27] MEDS: MULTIVITAMIN TAB PO SCH (08:10)
[2021-07-27] MEDS: HEPARIN SOD 5,000 UNIT/0.5 ML VIAL SQ SCH ×2 (08:10→20:31)
[2021-07-27] MEDS: PANTOprazole 40 MG TAB PO SCH (08:10)
[2021-07-27] MEDS: VENLAFAXINE HCL XR 37.5 MG CAPXR PO SCH (08:10)
[2021-07-27] MEDS: THIAMINE HCL 100 MG TAB PO SCH (08:10)
[2021-07-27] MEDS: amLODIPine BESYLATE 5 MG TAB PO SCH (08:10)
[2021-07-27] MEDS: TAMSULOSIN HCL 0.4 MG CAP PO SCH ×2 (08:11→20:30)
[2021-07-27] MEDS: FUROSEMIDE 40 MG/4 ML VIAL IV SCH ×2 (08:27→20:31)
--- NOTE | 2021-07-27 08:36 | XRay Report ---
XR chest 1V portable HISTORY: wheezing, increasing oxygen demand COMPARISON: Chest 07/25/2021. FINDINGS: No pneumothorax. The cardiac silhouette remains mildly enlarged. There are trace bilateral pleural effusions. Diffuse interstitial/vascular thickening is again noted. This favors pulmonary jerilyn ma on the background of chronic interstitial change. IMPRESSION: No change in the pulmonary edema and trace bilateral pleural effusions. ACT 112: Negative or not required by law. Electronically signed by: Han Bryan M.D. 07/27/2021 8:34 AM
[2021-07-27] MEDS ORDERED: FUROSEMIDE 40 MG/4 ML VIAL IV SCH (09:00)
[2021-07-27] MEDS ORDERED: FUROSEMIDE 40 MG in SYRINGE 0 ML IV SCH (09:00)
[2021-07-27] MEDS: MAGNESIUM OXIDE 400 MG TAB PO SCH (09:41)
[2021-07-27] MEDS ORDERED: EPOETIN ALFA 4,000 UNIT/ML VIAL SQ ONE (10:41)
--- NOTE | 2021-07-27 10:43 | Nephrology Consultation ---
Date of Consultation July 27, 2021 Assessment & Plan (1) Hypertensive emergency: BP improving with treatment. Furosemide 40 mg twice daily being provided to maintain negative fluid balance. Certainly amlodipine may be increased as needed. (2) CKD (chronic kidney disease): CKD IV with baseline creatinine ~2.3 mg/dL. Kidney function relatively stable. Close outpatient follow up with nephrology encouraged. Volume status improving. Electrolytes acceptable. No emergent indication for dialysis. Document I/O's and repeat metabolic profile tomorrow AM. Medications appropriately dosed for kidney dysfunction. (3) Anemia: Tsat low. Venofer 200 mg IV daily x 5 days ordered. Epogen 4000 units SQ provided. H/H stable. SPEP/IF pending. History of Present Illness Reason for Consultation: CKD Requesting Physician: Miko Seth MD Attending Physician: Miko Seth MD History of Present Illness Mr. Usman Hilton is a chronically ill 81 year-old male with chronic kidney disease, HFpEF, CAD, AAA, anemia, and HTN who presented to the emergency department at [facility] on 07/25 with complaints of shortness of breath and weakness. He was recently admitted with bilateral lower extremity edema and UTI. Usman was discharged home with home health. Unfortunately, he was not doing well at home and a friend had referred him back to the hospital. On arrival Usman had respiratory distress with hypoxia and accelerated hypertension. IV nitro gtt and IV lasix were provided with noted improvement. The patient was seen and evaluated in his hospital room this morning resting comfortably in bed. He was only able to provide limited history. Usman was notably lethargic and falling asleep during the conversation. He denied any shortness or chest pain. He was out of bed to a bedside chair this AM with PT. The bedside nurse notes that he is significantly debilitated and weak. Appetite has been poor. Urine output excellent. Maintaining a negative fluid balance. BP has been reasonable though still elevated. Creatinine on admission was 2.3 mg/dL consistent with known baseline. Creatinine now 2.5 mg/dL. Hemoglobin stable at 7.7 since admission. No signs of any GI bleeding. Allergies Allergy/AdvReac Type Severity Reaction Status Date / Time cefuroxime Allergy Intermediate rash Verified 07/26/21 10:38 lisinopril Allergy Mild itching Verified 07/26/21 10:38 Home Medications Medication Instructions Recorded Confirmed Type ferrous sulfate 325 mg (65 mg 325 mg PO QAM #30 tab 03/21/19 07/25/21 Rx iron) tablet,delayed release thiamine HCl (vitamin B1) 100 mg 100 mg PO QAM #30 tab 03/21/19 07/25/21 Rx tablet (Vitamin B-1) aspirin 81 mg tablet,delayed 81 mg PO QAM 05/06/19 07/25/21 History release cyanocobalamin (vitamin B-12) 1,000 mcg PO QAM 05/06/19 07/25/21 History 1,000 mcg tablet (Vitamin B-12) nitroglycerin 0.4 mg sublingual 0.4 mg SUBLINGUAL DIRECTED PRN 05/06/19 07/25/21 History tablet primidone 50 mg tablet 50 mg PO BID #180 tab 10/12/20 07/25/21 Rx omeprazole 40 mg capsule,delayed 40 mg PO DAILY #90 cap 12/30/20 07/25/21 Rx release amlodipine 5 mg tablet 5 mg PO DAILY #90 tab 05/26/21 07/25/21 Rx atorvastatin 40 mg tablet 40 mg PO DAILY #90 tab 05/26/21 07/25/21 Rx metoprolol succinate 100 mg 100 mg PO DAILY #90 tab 05/26/21 07/25/21 Rx tablet,extended release 24 hr (Toprol XL) mirtazapine 30 mg tablet 30 mg PO QPM #90 tab 05/26/21 07/25/21 Rx tamsulosin 0.4 mg capsule 0.4 mg PO QPM #90 cap 05/26/21 07/25/21 Rx multivitamin (Daily Multi-Vitamin) 1 tab PO DAILY 05/28/21 07/25/21 History hydrocodone 10 mg-acetaminophen 2 tab PO Q6H PRN #240 tab MDD 8 06/28/21 07/25/21 Rx 325 mg tablet tabs losartan 25 mg tablet 25 mg PO DAILY 30 Days #30 tab 07/21/21 07/25/21 Rx venlafaxine 37.5 mg 37.5 mg PO QAM 30 Days #30 cap 07/21/21 07/25/21 Rx capsule,extended release 24 hr amoxicillin 500 mg tablet 500 mg PO BID 7 Days #14 tab 07/22/21 07/25/21 Rx folic acid 800 mcg tablet 800 mcg PO QAM #30 tab 07/22/21 07/25/21 Rx lorazepam 0.5 mg tablet 0.5 mg PO BID PRN #60 tab 07/22/21 07/25/21 Rx Patient History Medical History AAA (abdominal aortic aneurysm) Anemia of chronic disease Anxiety CAD (coronary artery disease) PTCA with stent of RCA 1994 Chronic pain Chronic renal insufficiency Essential tremor GERD (gastroesophageal reflux disease) Hyperlipidemia LDL goal <70 Hypertension Lower urinary tract symptoms (LUTS) Multiple rib fractures Opioid dependence treated with opiates for chronic low back pain for 10+ years Septal myocardial infarction Vitamin B12 deficiency Surgical History H/O heart artery stent (~1994) Family History Denies family history of Ovarian cancer Prostate cancer Myocardial infarction Breast cancer Colorectal cancer Social History Smoking Status: Current every day smoker Tobacco Type: Cigarettes Cigarettes Per Day: 10; Second Hand Exposure: No; Do You Dip or Chew Tobacco: No; Hx Alcohol Use: No Hx Substance Use: No Preferred Language: Macedonian Communication Ability: Effective Visual Impairment: No Limitations Hearing Ability: Normal Specialist Wound Care Required: No Beliefs That Will Affect Care: None marital status: / Current Living Situation: Alone Current Living Situation Comment: Alone at home in apartment after of in March current occupational status: 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 many Children do You have: 1 Other Information That Helps Us Care for You: No Feels Safe at Home: Yes Safety Concerns: Feels Safe At This Time Childhood Exposure to Second-Hand Smoke: Yes Dental Care, Regularly: No Physical Activity Frequency: Does not Exercise Seatbelt Use: always Sunscreen Use: No (doesn't really go outside ) Assistive Devices: Cane and Oxygen - Continuous Review of Systems Review of Systems: All systems reviewed & are unremarkable except as noted in HPI & below Physical Exam Constitutional: + ill appearing and + cachectic Eyes: no scleral abnormality and no corneal abnormality ENMT: Mouth: + dry oral mucous membranes; no oral mucosal abnormality Neck: normal visual inspection and trachea midline Respiratory: normal respiratory effort Auscultation: lungs clear to auscultation bilaterally Cardiovascular: Rate/Rhythm: regular rate Heart Sounds: normal S1, normal S2 and + murmur Vessels: + JVD Extremities: + edema Musculoskeletal: Extremities: no cyanosis and no clubbing Skin: normal turgor; no lesions Neurologic: Motor/Sensory: no tremor and no asterixis Psychiatric: Orientation: oriented to person and oriented to place Insight: + limited insight Results & Data ([facility]) Vital Signs (Past 12 Hours) Vital Signs Temp Pulse Pulse Pulse Resp BP Pulse Ox 07/27/21 07:57 36.8 C 96 H 18 148/76 H 94 07/27/21 06:22 95 H 22 96 07/27/21 05:35 169/93 H 07/27/21 05:10 93 H 176/91 H 07/27/21 05:00 88 18 179/91 H 94 07/27/21 03:13 36.9 C 81 20 164/83 H 97 07/27/21 02:54 170/82 H 07/27/21 02:06 172/89 H 07/27/21 01:22 97 H 20 178/92 H 93 07/27/21 01:15 181/95 H 07/27/21 00:37 171/95 H 07/26/21 23:50 101 H 171/95 H 92 07/26/21 23:46 105 H 07/26/21 23:06 98 H 174/87 H 07/26/21 23:00 98 H 18 95 07/26/21 22:56 20 96 07/26/21 22:51 127 H 32 H 100 07/26/21 22:50 101 H 20 98 07/26/21 22:44 96 H 22 100 Laboratory Results Laboratory Results - last 24 hr 07/26/21 07/26/21 07/27/21 06:57 16:39 06:28 WBC 10.33 RBC 2.39 L Hgb 7.5 L 7.7 L Hct 23.5 L 24.1 L MCV 100.8 H MCH 32.2 MCHC 32.0 RDW Std Deviation 58.5 H RDW Coeff of Lucas 15.7 H Plt Count 493 H MPV 9.3 Immature Gran % (Auto) 0.3 Neut % (Auto) 77.4 Lymph % (Auto) 12.8 [place] % (Auto) 7.2 Eos % (Auto) 2.0 Baso % (Auto) 0.3 Neut # (Auto) 8.00 H Lymph # (Auto) 1.32 [place] # (Auto) 0.74 H Eos # (Auto) 0.21 Baso # (Auto) 0.03 Immature Gran # (Auto) 0.03 H Sodium Potassium Chloride Carbon Dioxide Anion Gap BUN Creatinine Est Cr Clr Drug Dosing Est GFR ( Amer) Est GFR (Non-Af Amer) BUN/Creatinine Ratio Glucose POC Glucose Calcium Magnesium Iron Transferrin Transferrin % Sat Ferritin Total Protein (PEP) Albumin (PEP) Glqaq-6-Crjodiayk Huhwk-2-Hnhnsxrww Dyan-4-Idzlghxo Vlpo-3-Qqezsoaa Gamma Globulins Monoclonal Peak 3 Ser Monoclonl Protein Ser Monoclonal Prot 2 PEP Interpretation Prostate Specific Ag 0.782 Serum Immunofixation Free [place] LC, Quant Free Lambda LC, Quant Free [place]/Lambda Ratio 07/27/21 07/27/21 07/27/21 06:28 06:28 07:20 WBC RBC Hgb Hct MCV MCH MCHC RDW Std Deviation RDW Coeff of Lucas Plt Count MPV Immature Gran % (Auto) Neut % (Auto) Lymph % (Auto) [place] % (Auto) Eos % (Auto) Baso % (Auto) Neut # (Auto) Lymph # (Auto) [place] # (Auto) Eos # (Auto) Baso # (Auto) Immature Gran # (Auto) Sodium 140 Potassium 4.3 Chloride 110 H Carbon Dioxide 28 Anion Gap 2.0 L BUN 52 H Creatinine 2.51 H Est Cr Clr Drug Dosing 18.5 Est GFR ( Amer) 27.2 Est GFR (Non-Af Amer) 23.4 BUN/Creatinine Ratio 20.6 H Glucose 96 POC Glucose 104 H Calcium 8.8 Magnesium 1.7 L Iron 44 Transferrin 190 L Transferrin % Sat 16 L Ferritin 37.3 Total Protein (PEP) Pending Albumin (PEP) Pending Ljelb-4-Ahhixfame Pending Uymxw-8-Mtmycbkrf Pending Vwbd-8-Helyefvc Pending Opbt-0-Kwqwbyob Pending Gamma Globulins Pending Monoclonal Peak 3 Pending Ser Monoclonl Protein Pending Ser Monoclonal Prot 2 Pending PEP Interpretation Pending Prostate Specific Ag Serum Immunofixation Pending Free [place] LC, Quant Pending Free Lambda LC, Quant Pending Free [place]/Lambda Ratio Pending PG Care Time/CCT Total # of Minutes Spent Total Time Spent with Patient: Total time spent is greater than 50% in coordination of care (as documented) at patient's floor/unit and/or counseling patient: Coding Level of Care Code 89452 Inpt Consult Level 4 Diagnoses Hypertensive emergency I16.1 CKD (chronic kidney disease) N18.9 Chronic kidney disease stage: unspecified stage Anemia D64.9 (1) CKD (chronic kidney disease) Chronic kidney disease stage: unspecified stage Qualified Code(s): N18.9 - Chronic kidney disease, unspecified
[2021-07-27] MEDS: IRON SUCROSE 200 MG in 0.9 % SODIUM CHLORIDE 100 ML IV SCH (11:00)
--- NOTE | 2021-07-27 16:41 | Hospitalist Progress Note ---
Date of Service July 27, 2021 Assessment & Plan (1) Pulmonary edema: Plan: Continue to aim negative balance 1-1.5L per day. Due to lack of progress will increase Lasix back to 40mg IV BID. Had addition Lasix 20mg IV last night. Blood pressure improved and negative balance. Weight decreasing. Low Na, fluid restricted diet. (2) Hypoxia: Plan: Temporarily worse overnight, therefore will continue on PCU. Suspect from pulmonary edema as above. Continue to wean to aim O2 < 90%. Will continue duonebs but continue to hold steroids despite improvement with duonebs until fluid is optimized given low suspicion of COPD from exam and alternative more likely diagnosis and lack of prior history of this. If no significant improvement with fluid optimization will start IV steroids. (3) Congestive heart failure: Plan: Acute on chronic heart failure exacerbation with acute pulmonary edema TTE - unremarkable - suspect fluid retention as a result of CKD and urine retention (4) Hypertensive emergency: Plan: Resolving with IV Lasix. Labetalol given at 5am this morning. Suspect secondary to fluid retention. Continue lasix as above. (5) CKD (chronic kidney disease): Plan: Stage IV. Protein/Cr ratio pending for full staging. With concurrent anemia without iron def, B12 or folate def. will get workup for myeloma. 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 Will defer EPO to nephrology. Iron deficiency, transferrin sats 16%. Venofer and EPO per nephrology recomendations. (7) Lower urinary tract symptoms (LUTS): Plan: Follow continue tamsulosin Urine retention on bladder scan and renal US - fisher catheter placed. Possible reason for worsening CKD and fluid retention. PSA WNL. Will need urology follow up on discharge. (8) GERD (gastroesophageal reflux disease): Plan: Switch omeprazole for pantoprazole per hospital formulary (9) CAD (coronary artery disease): Plan: Continue ASA, continue BB, Continue ARB and, statin (10) Hypoalbuminemia due to protein-calorie malnutrition: Plan: Poor nutrition, patient has been on functional decline since his had passed. - supportive care (11) Severe protein-calorie malnutrition: Plan: Boost (12) UTI (urinary tract infection): Plan: Low suspicion of prostate infection with normal PSA. Will continue on amoxicillin (no need for Augmentin given sensitivity to ampicillin). Plan: VTE Prophylaxis - heparin 5000 units SQ BID Diet - heart healthy, low Na, Fluid restrict 1500ml Disposition - continue on PCU Admission and Anticipated Discharge Date Admission Date: July 25, 2021 Subjective Increased shortness of breath and hypoxia last night. Did not happen after eating. Reportedly slower progressive increase rather than sudden worsening. He feels better on sitting up but unsure whether lying down made him worse. Duonebs continue to help. No fever or chills. Back to where he was yesterday currently. Review of Systems Review of Systems: All systems reviewed & are unremarkable except as noted in HPI & below Physical Exam Constitutional: well developed, + cachectic and + frail appearing; + not well nourished and no acute distress ENMT: external ear and nose normal, oropharynx normal Neck: trachea midline, no thyromegaly Respiratory: normal respiratory effort, lungs clear to auscultation no labored breathing, does not use accessory muscles, no cough, not tachypneic, no audible wheezes and no stridor Auscultation: + diminished lung sounds (throughout); no crackles and no wheezes Cardiovascular: Rate/Rhythm: regular rate and regular rhythm Vessels: no JVD Extremities: + edema (+1 edema bilateral lower extremity) Gastrointestinal (Abdomen): normal bowel sounds, soft, nontender, no hepatosplenomegaly Neurologic: moves all extremities and awake; not confused Psychiatric: A+Ox3, euthymic affect Results & Data Results & Data ([facility]) Vital Signs (Past 12 Hours) Vital Signs Temp Pulse Pulse Pulse Resp BP Pulse Ox 07/27/21 16:07 36.7 C 80 20 169/87 H 94 07/27/21 15:18 87 07/27/21 14:40 82 18 91 07/27/21 12:14 36.5 C 84 19 168/81 H 91 07/27/21 10:41 79 16 96 07/27/21 10:00 95 H 07/27/21 07:57 36.8 C 96 H 18 148/76 H 94 07/27/21 06:22 95 H 22 96 07/27/21 05:35 169/93 H 07/27/21 05:10 93 H 176/91 H 10/26/21 05:00 88 18 179/91 H 94 PG Care Time/CCT Total # of Minutes Spent Total Time Spent with Patient: Total time spent is greater than 50% in coordination of care (as documented) at patient's floor/unit and/or counseling patient: Coding Level of Care Code 46636 Subseq Hosp Care Lvl 3 Diagnoses Pulmonary edema J81.1 Hypoxia R09.02 Congestive heart failure I50.9 Hypertensive emergency I16.1 CKD (chronic kidney disease) N18.9 Chronic kidney disease stage: unspecified stage Anemia D64.9 Lower urinary tract symptoms (LUTS) R39.9 GERD (gastroesophageal reflux disease) K21.9 CAD (coronary artery disease) I25.10 Hypoalbuminemia due to protein-calorie malnutrition E46 Severe protein-calorie malnutrition E43 UTI (urinary tract infection) N39.0 (1) CKD (chronic kidney disease) Chronic kidney disease stage: unspecified stage Qualified Code(s): N18.9 - Chronic kidney disease, unspecified
[2021-07-27] MEDS: MIRTAZAPINE TAB 15 MG TAB PO SCH (20:30)
[2021-07-27] MEDS ORDERED: MoRPHine SULFATE 2 MG/ML CARP IV STA (23:00)
[2021-07-28] MEDS: LORazepam 0.5 MG TAB PO PRN ×2 (05:31→20:29)
[2021-07-28] MEDS: HYDROcodone/ACETAMINOPHEN 10/325 TAB PO PRN ×4 (05:31→23:57)
[2021-07-28 06:08] LABS: Basophils # (auto) 0.02 K/uL (0-0.2); Basophils % (auto) 0.2 %; Eosinophils % (auto) 2.3 %; Hematocrit (blood only) 24.1 % (42-52); Hemoglobin 7.7 g/dL (14.0-18.0); Immature Granulocytes # (auto) 0.02 K/uL (0.00-0.02); Immature Granulocytes % (auto) 0.2 %; Lymphocytes # (auto) 1.29 K/uL (1.2-3.4); Lymphocytes % (auto) 14.6 %; Mean Corpuscular Hemoglobin 32.5 pg (25-34); Mean Corpuscular Volume 101.7 fL (80-100); Mean Platelet Volume 9.2 fL (7.4-10.4); Monocytes # (auto) 0.84 K/uL (0.11-0.59); Monocytes % (auto) 9.5 %; Neutrophils # (auto) 6.49 K/uL (1.4-6.5); Neutrophils % (auto) 73.2 %; Platelet Count 442 K/uL (130-400); RDW Coefficient of Variation 15.6 % (11.5-14.5); RDW Standard Deviation 57.6 fL (36.4-46.3); Red Blood Count 2.37 M/uL (4.7-6.1); White Blood Count 8.86 K/uL (4.8-10.8)
[2021-07-28 06:42] LABS: RBC Morphology Unremarkable
[2021-07-28 06:54] LABS: BUN Creatinine Ratio 21.5 (10-20); Calcium 8.7 mg/dl (8.5-10.1); Creatinine Clr Calc Pharmacy 19.2 ml/min; Est GFR (African American) 28.5 ml/min; Est GFR (Non-African American) 24.6 ml/min; Magnesium 1.7 mg/dl (1.8-2.4); Potassium 4.1 mmol/L (3.5-5.1)
[2021-07-28] MEDS: ALBUT/IPRATROP 3MG/0.5MG NEB 3 ML VIAL NEB SCH ×4 (07:02→19:40)
[2021-07-28] MEDS: AMOXICILLIN 500 MG CAP PO SCH ×2 (08:33→20:30)
[2021-07-28] MEDS: MAGNESIUM OXIDE 400 MG TAB PO SCH (08:33)
[2021-07-28] MEDS: MULTIVITAMIN TAB PO SCH (08:33)
[2021-07-28] MEDS: ASPIRIN 81 MG ECTAB PO SCH (08:33)
[2021-07-28] MEDS: FOLIC ACID 400 MCG TAB PO SCH (08:33)
[2021-07-28] MEDS: ATORVASTATIN 40 MG TAB PO SCH (08:33)
[2021-07-28] MEDS: LOSARTAN POTASSIUM 25 MG TAB PO SCH (08:33)
[2021-07-28] MEDS: amLODIPine BESYLATE 5 MG TAB PO SCH ×2 (08:34→20:31)
[2021-07-28] MEDS: PANTOprazole 40 MG TAB PO SCH (08:34)
[2021-07-28] MEDS: PRIMIDONE 50 MG TAB PO SCH ×2 (08:34→20:32)
[2021-07-28] MEDS: FUROSEMIDE 40 MG/4 ML VIAL IV SCH ×2 (08:34→20:29)
[2021-07-28] MEDS: METOPROLOL SUCC 50MG EXT REL TAB PO SCH (08:34)
[2021-07-28] MEDS: THIAMINE HCL 100 MG TAB PO SCH (08:34)
[2021-07-28] MEDS: VENLAFAXINE HCL XR 37.5 MG CAPXR PO SCH (08:34)
[2021-07-28] MEDS: HEPARIN SOD 5,000 UNIT/0.5 ML VIAL SQ SCH ×2 (08:34→20:33)
[2021-07-28] MEDS: TAMSULOSIN HCL 0.4 MG CAP PO SCH ×2 (08:34→20:29)
[2021-07-28] MEDS: IRON SUCROSE 200 MG in 0.9 % SODIUM CHLORIDE 100 ML IV SCH (08:50)
--- NOTE | 2021-07-28 10:18 | Nephrology Progress Note ---
Date of Service July 28, 2021 Assessment & Plan (1) Hypertensive emergency: Plan: BP improving with treatment. Furosemide to maintain negative fluid balance. Dose reduced yesterday. Certainly amlodipine may be increased as needed. (2) CKD (chronic kidney disease): Plan: CKD IV with baseline creatinine ~2.3 mg/dL. Kidney function relatively stable. Close outpatient follow up with nephrology encouraged. Volume status improving. Electrolytes acceptable. No emergent indication for dialysis. Document I/O's and repeat metabolic profile tomorrow AM. Medications appropriately dosed for kidney dysfunction. (3) Anemia: Plan: Venofer 200 mg IV daily x 5 days started. Epogen 4000 units SQ provided yesterday. H/H stable. SPEP/IF pending. Admission and Anticipated Discharge Date Admission Date: July 25, 2021 Barber Mary was very tired this AM. He opened his eyes but did not engage in conversation. He is very weak. Ate less than 50% of breakfast. No fevers or chills. He denied dyspnea at rest. Review of Systems Review of Systems: All systems reviewed & are unremarkable except as noted in HPI & below Physical Exam Constitutional: + ill appearing and + cachectic Eyes: no scleral abnormality and no corneal abnormality ENMT: Mouth: + dry oral mucous membranes; no oral mucosal abnormality Neck: normal visual inspection and trachea midline Respiratory: normal respiratory effort Auscultation: lungs clear to auscultation bilaterally Cardiovascular: Rate/Rhythm: regular rate Heart Sounds: normal S1, normal S2 and + murmur Vessels: + JVD Extremities: + edema Musculoskeletal: Extremities: no cyanosis and no clubbing Skin: normal turgor; no lesions Neurologic: Motor/Sensory: no tremor and no asterixis Psychiatric: Orientation: oriented to person and oriented to place Insight: + limited insight Results & Data ([facility]) Vital Signs (Past 12 Hours) Vital Signs Temp Pulse Pulse Pulse Resp BP Pulse Ox 07/28/21 09:00 81 07/28/21 07:04 36.6 C 80 16 163/82 H 95 07/28/21 07:02 80 18 95 07/28/21 04:10 37.1 C 93 H 20 157/73 H 93 07/28/21 00:14 90 18 173/85 H 96 07/27/21 23:32 20 94 07/27/21 23:10 106 H 22 173/92 H 97 07/27/21 22:53 119 H 25 H 93 07/27/21 22:50 36.4 C L 102 H 24 186/111 H 96 07/27/21 22:41 100 H 25 H 95 07/27/21 22:23 20 98 07/27/21 22:22 22 96 07/27/21 22:19 94 H Laboratory Results Laboratory Results - last 24 hr 07/28/21 07/28/21 05:58 05:58 WBC 8.86 RBC 2.37 L Hgb 7.7 L Hct 24.1 L MCV 101.7 H MCH 32.5 MCHC 32.0 RDW Std Deviation 57.6 H RDW Coeff of Lucas 15.6 H Plt Count 442 H MPV 9.2 Immature Gran % (Auto) 0.2 Neut % (Auto) 73.2 Lymph % (Auto) 14.6 Shelby % (Auto) 9.5 Eos % (Auto) 2.3 Baso % (Auto) 0.2 Neut # (Auto) 6.49 Lymph # (Auto) 1.29 Shelby # (Auto) 0.84 H Eos # (Auto) 0.20 Baso # (Auto) 0.02 Immature Gran # (Auto) 0.02 RBC Morphology Unremarkable Sodium 140 Potassium 4.1 Chloride 107 Carbon Dioxide 27 Anion Gap 6.0 BUN 52 H Creatinine 2.41 H Est Cr Clr Drug Dosing 19.2 Est GFR ( Amer) 28.5 Est GFR (Non-Af Amer) 24.6 BUN/Creatinine Ratio 21.5 H Glucose 95 Calcium 8.7 Magnesium 1.7 L PG Care Time/CCT Total # of Minutes Spent Total Time Spent with Patient: Total time spent is greater than 50% in coordination of care (as documented) at patient's floor/unit and/or counseling patient: Coding Level of Care Code 06403 Subseq Hosp Care Lvl 3 Diagnoses Hypertensive emergency I16.1 CKD (chronic kidney disease) N18.9 Chronic kidney disease stage: unspecified stage Anemia D64.9 (1) CKD (chronic kidney disease) Chronic kidney disease stage: unspecified stage Qualified Code(s): N18.9 - Chronic kidney disease, unspecified
--- NOTE | 2021-07-28 14:26 | Hospitalist Progress Note ---
Date of Service July 28, 2021 Assessment & Plan (1) Pulmonary edema: Plan: Continue to aim negative balance 1-1.5L per day. Continue Lasix 40mg IV BID. This appears to be working well regarding fluid balance. Blood pressure improved and negative balance. Weight decreasing. Low Na, fluid restricted diet. (2) Hypoxia: Plan: Appears to get worse in the evening. Again nursing notes report increased anxiety. I suspect this is just anxiety related as he does not desaturate significantly. Suspect from pulmonary edema as above. Continue to wean to aim O2 < 90%. Will continue duonebs but continue to hold steroids despite improvement with duonebs until fluid is optimized given low suspicion of COPD from exam and alternative more likely diagnosis and lack of prior history of this. If no significant improvement with fluid optimization will start IV steroids. (3) Congestive heart failure: Plan: Acute on chronic heart failure exacerbation with acute pulmonary edema TTE - unremarkable - suspect fluid retention as a result of CKD and urine retention (4) Hypertensive emergency: Plan: Resolving with IV Lasix. However still requiring PRN labetalol. Will increase amlodipine 5mg to BID dosing. (5) CKD (chronic kidney disease): Plan: Stage IV. Protein/Cr ratio pending for full staging. With concurrent anemia without iron def, B12 or folate def. will get workup for myeloma. 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 Will defer EPO to nephrology. Iron deficiency, transferrin sats 16%. Venofer and EPO per nephrology recomendations. (7) Lower urinary tract symptoms (LUTS): Plan: Follow continue tamsulosin Urine retention on bladder scan and renal US - fisher catheter placed. Possible reason for worsening CKD and fluid retention. PSA WNL. Will need urology follow up on discharge. (8) GERD (gastroesophageal reflux disease): Plan: Switch omeprazole for pantoprazole per hospital formulary (9) CAD (coronary artery disease): Plan: Continue ASA, continue BB, Continue ARB and, statin (10) Hypoalbuminemia due to protein-calorie malnutrition: Plan: Poor nutrition, patient has been on functional decline since his had passed. - supportive care (11) Severe protein-calorie malnutrition: Plan: Boost (12) UTI (urinary tract infection): Plan: Low suspicion of prostate infection with normal PSA. Will continue on amoxicillin (no need for Augmentin given sensitivity to ampicillin). Plan: VTE Prophylaxis - heparin 5000 units SQ BID Diet - heart healthy, low Na, Fluid restrict 1500ml Disposition - continue on PCU Admission and Anticipated Discharge Date Admission Date: July 25, 2021 Subjective No significant improvement in shortness of breath despite negative 4.2L this admission. No chest pain, fever or chills. Appears to be more fatigued today. Review of Systems Review of Systems: All systems reviewed & are unremarkable except as noted in HPI & below Physical Exam Constitutional: well developed, + cachectic and + frail appearing; + not well nourished and no acute distress ENMT: external ear and nose normal, oropharynx normal Neck: trachea midline, no thyromegaly Respiratory: normal respiratory effort, lungs clear to auscultation no labored breathing, does not use accessory muscles, no cough, not tachypneic, no audible wheezes and no stridor Auscultation: + diminished lung sounds (throughout); no crackles and no wheezes Cardiovascular: Rate/Rhythm: regular rate and regular rhythm Vessels: no JVD Extremities: + edema (+1 edema bilateral lower extremity) Gastrointestinal (Abdomen): normal bowel sounds, soft, nontender, no hepatosplenomegaly Neurologic: moves all extremities and awake; not confused Psychiatric: A+Ox3, euthymic affect Results & Data Results & Data ([facility]) Vital Signs (Past 12 Hours) Vital Signs Temp Pulse Pulse Pulse Resp BP Pulse Ox 07/28/21 11:29 36.4 C L 93 H 16 178/80 H 88 L 07/28/21 10:29 87 16 98 07/28/21 09:00 81 07/28/21 07:04 36.6 C 80 16 163/82 H 95 07/28/21 07:02 80 18 95 07/28/21 04:10 37.1 C 93 H 20 157/73 H 93 PG Care Time/CCT Total # of Minutes Spent Total Time Spent with Patient: Total time spent is greater than 50% in coordination of care (as documented) at patient's floor/unit and/or counseling patient: Coding Level of Care Code 59380 Subseq Hosp Care Lvl 2 Diagnoses Pulmonary edema J81.1 Hypoxia R09.02 Congestive heart failure I50.9 Hypertensive emergency I16.1 CKD (chronic kidney disease) N18.9 Chronic kidney disease stage: unspecified stage Anemia D64.9 Lower urinary tract symptoms (LUTS) R39.9 GERD (gastroesophageal reflux disease) K21.9 CAD (coronary artery disease) I25.10 Hypoalbuminemia due to protein-calorie malnutrition E46 Severe protein-calorie malnutrition E43 UTI (urinary tract infection) N39.0 (1) CKD (chronic kidney disease) Chronic kidney disease stage: unspecified stage Qualified Code(s): N18.9 - Chronic kidney disease, unspecified
[2021-07-28 18:17] LABS: Albumin 2.7 g/dL (3.8-4.8); Alpha 1 Globulin 0.5 g/dL (0.2-0.3); Alpha 2 Globulin 0.9 g/dL (0.5-0.9); Beta-1-Globulin 0.4 g/dL (0.4-0.6); Beta-2-Globulin 0.4 g/dL (0.2-0.5); Free Kappa 122.8 mg/L (3.3-19.4); Free Kappa/Lambda Ratio 1.74 (0.26-1.65); Free Lambda 70.5 mg/L (5.7-26.3); Monoclonal Protein Band 1 DNR g/dL (NONE DETECTED); Monoclonal Protein Band 2 DNR g/dL (NONE DETECTED); Monoclonal Protein Band 3 DNR g/dL (NONE DETECTED); Total Protein 5.9 g/dL (6.1-8.1)
[2021-07-28] MEDS: MIRTAZAPINE TAB 15 MG TAB PO SCH (20:32)
[2021-07-28 21:18] LABS: Creatinine Urine Random 31.9 mg/dl; Protein Creatinine Ratio Urine 4.5 (0-0.2)
[2021-07-29] MEDS: ALBUT/IPRATROP 3MG/0.5MG NEB 3 ML VIAL NEB SCH ×6 (00:41→19:16)
[2021-07-29] MEDS: HYDROcodone/ACETAMINOPHEN 10/325 TAB PO PRN ×3 (07:28→20:10)
[2021-07-29] MEDS: HEPARIN SOD 5,000 UNIT/0.5 ML VIAL SQ SCH ×2 (08:06→20:15)
[2021-07-29] MEDS: MULTIVITAMIN TAB PO SCH (08:07)
[2021-07-29] MEDS: MAGNESIUM OXIDE 400 MG TAB PO SCH (08:07)
[2021-07-29] MEDS: METOPROLOL SUCC 50MG EXT REL TAB PO SCH (08:07)
[2021-07-29] MEDS: VENLAFAXINE HCL XR 37.5 MG CAPXR PO SCH (08:07)
[2021-07-29] MEDS: ASPIRIN 81 MG ECTAB PO SCH (08:07)
[2021-07-29] MEDS: PRIMIDONE 50 MG TAB PO SCH ×2 (08:07→20:14)
[2021-07-29] MEDS: LOSARTAN POTASSIUM 25 MG TAB PO SCH (08:07)
[2021-07-29] MEDS: THIAMINE HCL 100 MG TAB PO SCH (08:07)
[2021-07-29] MEDS: PANTOprazole 40 MG TAB PO SCH (08:07)
[2021-07-29] MEDS: amLODIPine BESYLATE 5 MG TAB PO SCH ×2 (08:07→20:13)
[2021-07-29] MEDS: TAMSULOSIN HCL 0.4 MG CAP PO SCH ×2 (08:08→20:14)
[2021-07-29] MEDS: ATORVASTATIN 40 MG TAB PO SCH (08:08)
[2021-07-29] MEDS: AMOXICILLIN 500 MG CAP PO SCH ×2 (08:08→20:13)
[2021-07-29] MEDS: FUROSEMIDE 40 MG/4 ML VIAL IV SCH (08:08)
[2021-07-29] MEDS: FOLIC ACID 400 MCG TAB PO SCH (08:08)
[2021-07-29 08:18] LABS: BUN Creatinine Ratio 20.1 (10-20); Est GFR (African American) 24.7 ml/min; Est GFR (Non-African American) 21.4 ml/min; Magnesium 1.7 mg/dl (1.8-2.4); Potassium 4.1 mmol/L (3.5-5.1)
[2021-07-29] MEDS: IRON SUCROSE 200 MG in 0.9 % SODIUM CHLORIDE 100 ML IV SCH (08:19)
--- NOTE | 2021-07-29 08:41 | XRay Report ---
XR chest 1V portable CLINICAL HISTORY: Significant continued hypoxia TECHNIQUE: Single frontal radiograph of the chest was obtained. Comparison: Comparison is made to chest one view 07/26/2021 FINDINGS: No lines and tubes are seen. Cardiomegaly is noted. Interval increase in diffuse interstitial opaciti es. Bilateral lower lung airspace opacities are also increased from prior exam. Small bilateral pleur al effusions are seen. IMPRESSION: Diffuse interstitial and airspace opacities, somewhat more prominent on the prior exam. Bilateral ple ural effusions are increased from prior exam. Moderate pulmonary edema, likely stable. ACT 112: Negative or not required by law. Electronically signed by: Bobo Donaldson M.D. 07/29/2021 8:39 AM
--- NOTE | 2021-07-29 09:57 | Nephrology Progress Note ---
Date of Service July 29, 2021 Assessment & Plan (1) Hypertensive emergency: Plan: BP acceptable. Amlodipine 5 mg twice daily. Furosemide held this AM. Remains on Cozaar 25 mg daily and metoprolol succinate 100 mg daily. Renal artery duplex ordered for today. (2) CKD (chronic kidney disease): Plan: CKD IV with baseline creatinine ~2.3 mg/dL. Kidney function relatively stable. Creatinine slightly increased. Volume status acceptable, will hold IV furosemide for now with consideration for transition to PO as needed. Close outpatient follow up with nephrology encouraged. Volume status improving. Electrolytes acceptable. No emergent indication for dialysis. Document I/O's and repeat metabolic profile tomorrow AM. Medications appropriately dosed for kidney dysfunction. (3) Anemia: Plan: Venofer 200 mg IV daily x 5 days started 07/27. Epogen 4000 units SQ provided 07/27. H/H stable. SPEP/IF negative for monoclonal abnormality. Admission and Anticipated Discharge Date Admission Date: July 25, 2021 Subjective Breathing more comfortably this morning. Much more alert and reports feeling stronger. Appetite remains poor. Hdz draining to gravity. Good urine output. Review of Systems Review of Systems: All systems reviewed & are unremarkable except as noted in HPI & below Physical Exam Constitutional: + cachectic; no acute distress Eyes: no scleral abnormality and no corneal abnormality ENMT: Mouth: + dry oral mucous membranes; no oral mucosal abnormality Neck: normal visual inspection and trachea midline Respiratory: normal respiratory effort Auscultation: lungs clear to auscultation bilaterally Cardiovascular: Rate/Rhythm: regular rate Heart Sounds: normal S1, normal S2 and + murmur Vessels: + JVD Extremities: + edema Musculoskeletal: Extremities: no cyanosis and no clubbing Skin: normal turgor; no lesions Neurologic: Motor/Sensory: no tremor and no asterixis Psychiatric: Orientation: alert Results & Data ([facility]) Vital Signs (Past 12 Hours) Vital Signs Temp Pulse Pulse Resp BP Pulse Ox 07/29/21 07:47 91 H 07/29/21 07:30 84 20 94 07/29/21 07:28 37.0 C 88 16 158/81 H 92 07/29/21 05:21 91 H 07/29/21 03:55 170/81 H 07/29/21 03:48 93 H 20 91 07/29/21 03:31 36.6 C 95 H 18 92 07/29/21 00:42 22 94 07/28/21 22:21 36.5 C 89 18 162/80 H 93 Laboratory Results Laboratory Results - last 24 hr 07/27/21 07/28/21 07/29/21 06:28 17:10 07:02 Sodium 140 Potassium 4.1 Chloride 107 Carbon Dioxide 28 Anion Gap 6.0 BUN 55 H Creatinine 2.71 H D Est Cr Clr Drug Dosing 17.0 Est GFR ( Amer) 24.7 Est GFR (Non-Af Amer) 21.4 BUN/Creatinine Ratio 20.1 H Glucose 90 Calcium 9.0 Magnesium 1.7 L Total Protein (PEP) 5.9 L Albumin (PEP) 2.7 L Otqpx-1-Hboiibztl 0.5 H Ertur-9-Fascleezt 0.9 Xiir-4-Pbqkkhlk 0.4 Hver-8-Fzdvfjoo 0.4 Gamma Globulins 1.0 Monoclonal Peak 3 DNR Ser Monoclonl Protein DNR Ser Monoclonal Prot 2 DNR PEP Interpretation SEE NOTE Ur Random Creatinine 31.9 U Random Total Protein 145.0 H Protein/Creatinin Ratio 4.5 H Serum Immunofixation SEE NOTE Free [place] LC, Quant 122.8 H Free Lambda LC, Quant 70.5 H Free [place]/Lambda Ratio 1.74 H PG Care Time/CCT Total # of Minutes Spent Total Time Spent with Patient: Total time spent is greater than 50% in coordination of care (as documented) at patient's floor/unit and/or counseling patient: Coding Level of Care Code 13450 Subseq Hosp Care Lvl 3 Diagnoses Hypertensive emergency I16.1 CKD (chronic kidney disease) N18.9 Chronic kidney disease stage: unspecified stage Anemia D64.9 (1) CKD (chronic kidney disease) Chronic kidney disease stage: unspecified stage Qualified Code(s): N18.9 - Chronic kidney disease, unspecified
[2021-07-29] MEDS ORDERED: MAGNESIUM SULFATE / D5W 1 GM/100 ML BAG IV ONE (10:00)
--- NOTE | 2021-07-29 11:10 | Hospitalist Progress Note ---
Date of Service July 29, 2021 Assessment & Plan (1) Hypoxia: Plan: Despite continued negative balance of approximately 4L this admission he has made little progress in his fatigue, shortness of breath and hypoxia. CXR in both bases also appears to be getting progressively worse. Discussed wtih Dr Hebert and will treat for COPD exacerbation, consult pulm and get CT chest wo contrast. Unable to get CTA to assess for PE however will get b/l US doppler to assess for DVT, low suspicion of PE if dopplers are negative. Aim O2 sats 88-92% (2) Fatigue: Plan: Suspect secondary to hypoxia, advanced COPD and CKD TSH 5.4, free T4 WNL (3) Pulmonary edema: Plan: Secondary to CKD, TTE no change since 2019 although moderate mitral r egurgitation may be contributing Continue to aim negative balance 1-1.5L per day. Continue Lasix 40mg IV but will reduce to QAM from BID - now appears to be reaching euvolemic state Blood pressure improved and negative balance. Weight decreasing. Continue Low Na, fluid restricted diet. Strict I&Os, daily weights (4) Congestive heart failure: Plan: Acute on chronic heart failure exacerbation with acute pulmonary edema TTE - unremarkable - suspect fluid retention as a result of CKD and urine retention (5) UTI (urinary tract infection): Plan: Low suspicion of prostate infection with normal PSA. Continue on amoxicillin (no need for Augmentin given sensitivity to ampicillin), 7 day course. (6) Hypertensive emergency: Plan: Improved with IV Lasix. However still requiring PRN labetalol. Continue increased amlodipine 5mg PO BID. Will switch metoprolol succinate to carvedilol tomorrow and uptitrate as needed (7) CKD (chronic kidney disease): Plan: Stage IV with nephrotic range proteinuria. Nb: proteinuria also present in 2019. 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 UPEP pending, however FLC ratio and SPEP not suggestive of myeloma Iron deficiency, transferrin sats 16%. Venofer and EPO per nephrology recommendations. (9) Lower urinary tract symptoms (LUTS): Plan: Increased tamsulosin to BID Urine retention on bladder scan and renal US - fisher catheter placed. Possible reason for worsening CKD and fluid retention. PSA WNL. Warrants TWOC prior to discharge but otherwise will need urology follow up. (10) GERD (gastroesophageal reflux disease): Plan: Switch omeprazole for pantoprazole per hospital formulary (11) CAD (coronary artery disease): Plan: Continue ASA, continue BB, Continue ARB and, statin (12) Hypoalbuminemia due to protein-calorie malnutrition: Plan: Poor nutrition, patient has been on functional decline since his had passed. - supportive care (13) Severe protein-calorie malnutrition: Plan: Boost Plan: VTE Prophylaxis - heparin 5000 units SQ BID Diet - heart healthy, low Na, Fluid restrict 1500ml Disposition - continue on med/tele Admission and Anticipated Discharge Date Admission Date: July 25, 2021 Subjective More alert today than previous two days. He reports not getting good sleep but this is usual for him even at home. Despite diuresis he denies any significant improvement in his shortness of breath and objectively he is still requiring 4LPM O2. Continues to be fatigued and cannot complete full sessions with physical therapy at this time. Declining rehabilitation. Review of Systems Review of Systems: All systems reviewed & are unremarkable except as noted in HPI & below Physical Exam Constitutional: well developed, + cachectic and + frail appearing; + not well nourished and no acute distress ENMT: external ear and nose normal, oropharynx normal Neck: trachea midline, no thyromegaly Respiratory: normal respiratory effort, lungs clear to auscultation no labored breathing, does not use accessory muscles, no cough, not tachypneic, no audible wheezes and no stridor Auscultation: + diminished lung sounds (throughout); no crackles and no wheezes Cardiovascular: Rate/Rhythm: regular rate and regular rhythm Vessels: no JVD Extremities: + edema (+1 edema bilateral lower extremity) Gastrointestinal (Abdomen): normal bowel sounds, soft, nontender, no hepatosplenomegaly Skin: ulcer on dorsal feet b/l without surrounding cellulitis Neurologic: moves all extremities and awake; not confused Psychiatric: A+Ox3, euthymic affect Results & Data Results & Data ([facility]) Vital Signs (Past 12 Hours) Vital Signs Temp Pulse Pulse Resp BP Pulse Ox 07/29/21 10:52 85 18 95 07/29/21 07:47 91 H 07/29/21 07:30 84 20 94 07/29/21 07:28 37.0 C 88 16 158/81 H 92 07/29/21 05:21 91 H 10/28/21 03:55 170/81 H 07/29/21 03:48 93 H 20 91 07/29/21 03:31 36.6 C 95 H 18 92 07/29/21 00:42 22 94 PG Care Time/CCT Total # of Minutes Spent Total Time Spent with Patient: Total time spent is greater than 50% in coordination of care (as documented) at patient's floor/unit and/or counseling patient: Coding Level of Care Code 42506 Subseq Hosp Care Lvl 3 Diagnoses Pulmonary edema J81.1 Hypoxia R09.02 Congestive heart failure I50.9 Hypertensive emergency I16.1 CKD (chronic kidney disease) N18.9 Chronic kidney disease stage: unspecified stage Anemia D64.9 Lower urinary tract symptoms (LUTS) R39.9 GERD (gastroesophageal reflux disease) K21.9 CAD (coronary artery disease) I25.10 Hypoalbuminemia due to protein-calorie malnutrition E46 Severe protein-calorie malnutrition E43 UTI (urinary tract infection) N39.0 Fatigue R53.83 (1) CKD (chronic kidney disease) Chronic kidney disease stage: unspecified stage Qualified Code(s): N18.9 - Chronic kidney disease, unspecified
[2021-07-29] MEDS ORDERED: methylPREDNISolone 125 MG in SYRINGE 0 ML IV ONE (12:00)
[2021-07-29] MEDS ORDERED: AZITHROMYCIN 500 MG in DEXTROSE 5% 250 ML IV ONE (12:00)
[2021-07-29 13:04] LABS: Adenovirus PCR Not Detected (NotDetected); Bordetella parapertussis PCR Not Detected (NotDetected); Bordetella pertussis PCR Not Detected (NotDetected); Chlamydia pneumoniae PCR Not Detected (NotDetected); Coronavirus 229E PCR Not Detected (NotDetected); Coronavirus CoV-2 (COVID19)PCR Not Detected (NotDetected); Coronavirus HKU1 PCR Not Detected (NotDetected); Coronavirus NL63 PCR Not Detected (NotDetected); Coronavirus OC43PCR Not Detected (NotDetected); Human Metapneumovirus PCR Not Detected (NotDetected); Influenza A PCR Not Detected (NotDetected); Influenza B PCR Not Detected (NotDetected); Mycoplasma pneumoniae PCR Not Detected (NotDetected); Parainfluenza Virus 1 PCR Not Detected (NotDetected); Parainfluenza Virus 2 PCR Not Detected (NotDetected); Parainfluenza Virus 3 PCR Not Detected (NotDetected); Parainfluenza Virus 4 PCR Not Detected (NotDetected); Respiratory Syncytial VirusPCR Not Detected (NotDetected); Rhinovirus/Enterovirus PCR Not Detected (NotDetected)
--- NOTE | 2021-07-29 14:29 | CT Scan Report ---
CT chest diagnostic wo con CLINICAL HISTORY: Continued hypoxia, shortness of breath TECHNIQUE: Multidetector row helical CT of the chest was performed. Coronal and sagittal reformations were obtained. Automated dose lowering techniques and/or adjustment according to patient size were u tilized for this exam. Comparison: Comparison is made to CT chest 03/29/2019 FINDINGS: Lungs and pleura: Diffuse scarring and edematous changes and scarring is seen throughout the lungs. H oneycombing is seen in the lung bases. There are small bilateral pleural effusions with associated at electasis. Heart and pericardium: There is cardiomegaly without evidence of pericardial effusion. Vessels: The pulmonary trunk is enlarged measuring 34 mm in diameter. Mediastinum and abbey: Prominent lymph nodes are seen measuring up to 14 mm in diameter. Chest wall and lower neck: Unremarkable. Abdomen: Unremarkable. Bones: Degenerative changes in the thoracic spine. IMPRESSION: 1. Severe emphysematous and scarring changes are seen with honeycombing. 2. Small bilateral pleural effusions are seen with associated atelectasis, superimposed pneumonia ca nnot be entirely excluded. 3. Cardiomegaly and pulmonary hypertension. 4. Prominent mediastinal lymph nodes measure up to 14 mm in diameter. ACT 112: Negative or not required by law. Electronically signed by: Bobo Donaldson M.D. 07/29/2021 2:28 PM
--- NOTE | 2021-07-29 15:24 | Ultrasound Report ---
US duplex renal artery CLINICAL HISTORY: burt TECHNIQUE: Real-time grayscale and color and spectral Doppler ultrasound imaging of the kidneys was p erformed. Comparison: None available at the time of this dictation. FINDINGS: RIGHT: Increased echogenicity of renal parenchyma with decreased corticomedullary differentiation. Right sylvain jonatan measures cm. No hydronephrosis. No convincing evidence of calculus or mass. Spectral analysis: Intrarenal resistive indices range from 1.0 to 1.0. Parvus tardus waveforms are seen. intrarenal donald rial waveforms. Renal artery patent with peak systolic velocity 116 cm/s proximally, 64 cm/s in the m idportion, and 37 cm/s distally. Renal vein patent. LEFT: Increased echogenicity of renal parenchyma with decreased corticomedullary differentiation. Left tamie morillo measures 8.5 cm. No hydronephrosis. No convincing evidence of calculus or mass. Spectral analysis: Intrarenal resistive indices range from 0.5 to 1.0. Parvus tardus waveforms are seen. Renal artery pa tent with peak systolic velocity 53 cm/s proximally, 32 cm/s in the midportion, and 43 cm/s distally. Renal vein patent. Abdominal aorta: Patent. Peak systolic velocity 44 cm/s. There is severe atherosclerosis versus mural thrombus in the aorta resulting in an aortic diameter of 3.2 cm with a patent lumen of 1.3 cm. Bladder: Normal. Bilateral ureteral jets present. Reference ranges: Normal main renal artery peak systolic velocity less than 180 cm/s. Ratio of renal artery PSV to aort ic PSV less than 3.5 equates to normal or less than 60% stenosis. Only one of the two criteria listed needs to be met for diagnosis. 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 Intrarenal resistive indices are elevated and parvus tardus wav eforms are noted compatible with medical renal disease. ACT 112: Negative or not required by law. Electronically signed by: Bobo Donaldson M.D. 07/29/2021 3:22 PM
[2021-07-29] MEDS ORDERED: HYDROmorphone INJ 0.5 MG/0.5 ML SYR IV STA (15:39)
[2021-07-29] MEDS: MIRTAZAPINE TAB 15 MG TAB PO SCH (20:13)
[2021-07-29] MEDS: methylPREDNISolone 40 MG in SYRINGE 0 ML IV SCH (20:15)
[2021-07-29] MEDS: LORazepam 0.5 MG TAB PO PRN (20:23)
[2021-07-29] MEDS: HYDROmorphone INJ 0.5 MG/0.5 ML SYR IV PRN (21:07)
[2021-07-29] MEDS: ACETAMINOPHEN 325 MG TAB PO PRN (22:20)
--- NOTE | 2021-07-29 23:35 | Pulmonary Consultation ---
Date of Consultation July 29, 2021 Assessment & Plan (1) SOB (shortness of breath): (2) COPD (chronic obstructive pulmonary disease) with emphysema: (3) Acute hypoxemic respiratory failure: (4) Bilateral pleural effusion: (5) COPD exacerbation: (6) Tobacco abuse counseling: (7) CKD (chronic kidney disease): Chronic kidney disease stage: unspecified stage Qualified Code(s): N18.9 - Chronic kidney disease, unspecified (8) Severe protein-calorie malnutrition: (9) Anemia: 81-year-old male with history of CKD stage IV, CAD, COPD, diastolic heart failure and hypertension currently in the hospital due to acute hypoxemic respiratory failure and volume overload. Acute hypoxemic respiratory failure: Multifactorial related to volume overload, COPD and obstructive lung disease. Continue diuresis. Solu-Medrol 40 mg twice daily initiated yesterday for possible COPD exacerbation. Recommend transitioning to p.o. prednisone starting tomorrow. ICS/lama (Breo Ellipta) started by the hospitalist yesterday. We will add LAMA (Incruse Ellipta) today. Continue to wean oxygen to maintain saturations of 88 to 92%. Continue duo nebs as needed. COPD exacerbation: Gold class D symptoms. Patient continues to smoke cigarettes. Recommend complete smoking cessation. He notes that his 's passing was a recent trigger for him starting to smoke again. Recommend outpatient PFTs. Co ntinue Breo Ellipta and Incruse Ellipta as above. Taper to prednisone over course of 5 to 7 days for a COPD exacerbation. Will initiate azithromycin for possible atypical infection. Recommend treatment for [address] days. Bilateral infiltrates on CT chest likely related to volume overload. Procalcitonin was - 07/29/2021. Bilateral pleural effusions: Secondary to underlying diastolic CHF, hypoalbumine alejandra and CKD stage IV. Echo 07/20/2021 with an LVEF of 50 to 55%. Moderate mitral regurgitation, mild tricuspid regurgitation and mild concentric LVH. Shortness of breath secondary to all of the above including anemia, COPD, CHF, bilateral effusions and deconditioning. Tobacco abuse: Smoked for greater than 30 pack years. He started smoking roughly 1 pack a day for the past 2 months after his due to stress. Strongly encourage complete smoking cessation. Thank you for the consult. Pulmonary continue to follow along with you. History of Present Illness Reason for Consultation: Hypoxia Attending Physician: Miko Seth MD History of Present Illness 81-year-old male with a past medical history of tobacco abuse, hypertension, congestive heart failure, coronary artery disease, CKD, AAA, GERD, hyperlipidemia protein calorie malnutrition, anxiety and depression who presented to the hospital on 07/25/2021 due to hypertension and shortness of breath. He was started on a nitroglycerin drip and given IV Lasix. He was under ICU care overnight. Patient reports that he is very anxious and suffers from panic attacks related to the passing of his 2 months ago. He was unaware that he has a history of lung disease. He notes that he normally does not use oxygen. He denies any significant cough. He does note worsening shortness of breath over the last few weeks. Pulmonary was consulted due to ongoing hypoxemia and concern for possible COPD exacerbation. I recommended a CT chest without contrast which was completed yesterday. He has severe emphysematous changes noted bilaterally with superimposed airspace opacities. There is also small to moderate bilateral effusions and compressive atelectasis seen. Radiology interpreted areas of honeycombing. I do not specifically see areas of honeycombing. It appears that he has acute infiltrates overlying emphysematous change which can give the appearance of an ILD-like picture. Allergies Allergy/AdvReac Type Severity Reaction Status Date / Time cefuroxime Allergy Intermediate rash Verified 07/26/21 10:38 lisinopril Allergy Mild itching Verified 07/26/21 10:38 Home Medications Medication Instructions Recorded Confirmed Type ferrous sulfate 325 mg (65 mg 325 mg PO QAM #30 tab 03/21/19 07/25/21 Rx iron) tablet,delayed release thiamine HCl (vitamin B1) 100 mg 100 mg PO QAM #30 tab 03/21/19 07/25/21 Rx tablet (Vitamin B-1) aspirin 81 mg tablet,delayed 81 mg PO QAM 05/06/19 07/25/21 History release cyanocobalamin (vitamin B-12) 1,000 mcg PO QAM 05/06/19 07/25/21 History 1,000 mcg tablet (Vitamin B-12) nitroglycerin 0.4 mg sublingual 0.4 mg SUBLINGUAL DIRECTED PRN 05/06/19 07/25/21 History tablet primidone 50 mg tablet 50 mg PO BID #180 tab 10/12/20 07/25/21 Rx omeprazole 40 mg capsule,delayed 40 mg PO DAILY #90 cap 12/30/20 07/25/21 Rx release amlodipine 5 mg tablet 5 mg PO DAILY #90 tab 05/26/21 07/25/21 Rx atorvastatin 40 mg tablet 40 mg PO DAILY #90 tab 05/26/21 07/25/21 Rx metoprolol succinate 100 mg 100 mg PO DAILY #90 tab 05/26/21 07/25/21 Rx tablet,extended release 24 hr (Toprol XL) mirtazapine 30 mg tablet 30 mg PO QPM #90 tab 05/26/21 07/25/21 Rx tamsulosin 0.4 mg capsule 0.4 mg PO QPM #90 cap 05/26/21 07/25/21 Rx multivitamin (Daily Multi-Vitamin) 1 tab PO DAILY 05/28/21 07/25/21 History hydrocodone 10 mg-acetaminophen 2 tab PO Q6H PRN #240 tab MDD 8 06/28/21 07/25/21 Rx 325 mg tablet tabs losartan 25 mg tablet 25 mg PO DAILY 30 Days #30 tab 07/21/21 07/25/21 Rx venlafaxine 37.5 mg 37.5 mg PO QAM 30 Days #30 cap 07/21/21 07/25/21 Rx capsule,extended release 24 hr amoxicillin 500 mg tablet 500 mg PO BID 7 Days #14 tab 07/22/21 07/25/21 Rx folic acid 800 mcg tablet 800 mcg PO QAM #30 tab 07/22/21 07/25/21 Rx lorazepam 0.5 mg tablet 0.5 mg PO BID PRN #60 tab 07/22/21 07/25/21 Rx Patient History Medical History (Updated 07/30/21 @ 13:00 by Dani Hebert MD) AAA (abdominal aortic aneurysm) Acute hypoxemic respiratory failure Anemia of chronic disease Anxiety Bilateral pleural effusion CAD (coronary artery disease) PTCA with stent of RCA 1994 Chronic pain Chronic renal insufficiency 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 exacerbation Essential tremor GERD (gastroesophageal reflux disease) Hyperlipidemia LDL goal <70 Hypertension Lower urinary tract symptoms (LUTS) Multiple rib fractures Opioid dependence treated with opiates for chronic low back pain for 10+ years Septal myocardial infarction Tobacco abuse counseling Vitamin B12 deficiency Surgical History H/O heart artery stent (~1994) Family History Denies family history of Ovarian cancer Prostate cancer Myocardial infarction Breast cancer Colorectal cancer Social History Smoking Status: Current every day smoker Tobacco Type: Cigarettes Cigarettes Per Day: 10; Second Hand Exposure: No; Hx Alcohol Use: No Hx Substance Use: No Preferred Language: Slovenian Communication Ability: Effective Visual Impairment: No Limitations Hearing Ability: Normal Breaker Off Required: No Beliefs That Will Affect Care: None marital status: / Current Living Situation: Alone Current Living Situation Comment: Alone at home in apartment after of in March current occupational status: 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 Oxygen tubing in place. Eyes: Pupils are equal round and reactive to light. Conjunctivae are normal. Anicteric sclera. Ears nose, mouth and throat: No obvious deficits Neck: Trachea is midline. Visual inspection is normal. Respiratory: Diminished bilaterally. No significant wheezing. Cardiovascular: Regular rate and rhythm. No murmurs. No edema. Gastrointestinal: Normal bowel sounds, soft, nontender and nondistended. No hepatosplenomegaly noted. Musculoskeletal: No cyanosis. Patient is able to move all extremities. Skin: No rashes, warm dry and intact. Neurologic: No obvious focal neurological deficits seen. Psychiatric: Alert and oriented x3 with a euthymic affect. Results & Data Results & Data ([facility]) Vital Signs (Past 12 Hours) Vital Signs Temp Pulse Resp BP Pulse Ox 07/29/21 22:00 98.1 F 88 18 157/70 H 94 07/29/21 19:18 81 20 88 L 07/29/21 19:00 97.9 F 76 18 143/65 H 92 07/29/21 15:18 84 18 94 vital signs, labs and imaging were personally reviewed PG Care Time/CCT Total # of Minutes Spent Total Time Spent with Patient: Total time spent is greater than 50% in coordination of care (as documented) at patient's floor/unit and/or counseling patient: Coding Level of Care Code 87793 Initial Inpt Care Lvl 3 Diagnoses SOB (shortness of breath) R06.02 COPD (chronic obstructive pulmonary disease) with emphysema J43.9 Acute hypoxemic respiratory failure J96.01 Bilateral pleural effusion J90 COPD exacerbation J44.1 Tobacco abuse counseling Z71.6 CKD (chronic kidney disease) N18.9 Chronic kidney disease stage: unspecified stage Severe protein-calorie malnutrition E43 Anemia D64.9
--- NOTE | 2021-07-30 07:16 | Ultrasound Report ---
BILATERAL LOWER EXTREMITY VENOUS DOPPLER HISTORY: bilateral lower extremity swelling r/o DVT COMPARISON STUDY: None. FINDINGS: There is normal compressibility, flow, and augmentation within the bilateral lower extremit y deep venous systems. IMPRESSION: No DVT within the right or left lower extremity. ACT 112: Negative or not required by law. Electronically signed by: Han Bryan M.D. 07/30/2021 7:15 AM
[2021-07-30] MEDS: ALBUT/IPRATROP 3MG/0.5MG NEB 3 ML VIAL NEB SCH ×3 (07:22→15:18)
[2021-07-30] MEDS: HYDROcodone/ACETAMINOPHEN 10/325 TAB PO PRN ×3 (07:45→19:56)
[2021-07-30] MEDS: HEPARIN SOD 5,000 UNIT/0.5 ML VIAL SQ SCH ×2 (08:39→19:49)
[2021-07-30] MEDS: carvediloL 12.5 MG TAB PO SCH ×2 (08:39→19:47)
[2021-07-30] MEDS: TAMSULOSIN HCL 0.4 MG CAP PO SCH ×2 (08:39→19:48)
[2021-07-30] MEDS: methylPREDNISolone 40 MG in SYRINGE 0 ML IV SCH ×2 (08:39→19:48)
[2021-07-30] MEDS: PANTOprazole 40 MG TAB PO SCH (08:40)
[2021-07-30] MEDS: LOSARTAN POTASSIUM 25 MG TAB PO SCH (08:40)
[2021-07-30] MEDS: PRIMIDONE 50 MG TAB PO SCH ×2 (08:40→19:47)
[2021-07-30] MEDS: ASPIRIN 81 MG ECTAB PO SCH (08:40)
[2021-07-30] MEDS: amLODIPine BESYLATE 5 MG TAB PO SCH ×2 (08:40→19:43)
[2021-07-30] MEDS: AMOXICILLIN 500 MG CAP PO SCH ×2 (08:40→19:47)
[2021-07-30] MEDS: THIAMINE HCL 100 MG TAB PO SCH (08:40)
[2021-07-30] MEDS: MAGNESIUM OXIDE 400 MG TAB PO SCH (08:40)
[2021-07-30] MEDS: VENLAFAXINE HCL XR 37.5 MG CAPXR PO SCH (08:40)
[2021-07-30] MEDS: FOLIC ACID 400 MCG TAB PO SCH (08:40)
[2021-07-30] MEDS: ATORVASTATIN 40 MG TAB PO SCH (08:41)
[2021-07-30] MEDS: MULTIVITAMIN TAB PO SCH (08:41)
[2021-07-30 08:50] LABS: BUN Creatinine Ratio 21.4 (10-20); Calcium 9.3 mg/dl (8.5-10.1); Creatinine Clr Calc Pharmacy 17.4 ml/min; Est GFR (African American) 25.1 ml/min; Est GFR (Non-African American) 21.6 ml/min; Potassium 4.4 mmol/L (3.5-5.1)
[2021-07-30] MEDS: HYDROmorphone INJ 0.5 MG/0.5 ML SYR IV PRN ×3 (08:50→22:45)
[2021-07-30] MEDS: IRON SUCROSE 200 MG in 0.9 % SODIUM CHLORIDE 100 ML IV SCH (08:50)
[2021-07-30] MEDS ORDERED: AZITHROMYCIN 250 MG in DEXTROSE 5% 250 ML IV SCH (09:00)
[2021-07-30] MEDS ORDERED: FUROSEMIDE 40 MG/4 ML VIAL IV SCH (09:00)
--- NOTE | 2021-07-30 10:30 | Nephrology Progress Note ---
Date of Service July 30, 2021 Assessment & Plan (1) Hypertensive emergency: Plan: BP acceptable. Amlodipine 5 mg twice daily. Furosemide held this AM. Remains on Cozaar 25 mg daily and metoprolol succinate 100 mg daily. Renal artery duplex negative for stenosis. Losartan may be increased as needed. (2) CKD (chronic kidney disease): Plan: CKD IV with baseline creatinine ~2.3 mg/dL. Kidney function relatively stable though creatinine slightly increased. Volume status acceptable. IV furosemide reduced from twice daily to once daily yesterday. I/O negative ~500 l/24 hr. Transitioned to 40 mg PO daily today. Close outpatient follow up with nephrology encouraged. Volume status improving. Electrolytes acceptable. No emergent indication for dialysis but we did discuss possible future indications this AM. Mr. Hilton reported that he would likely refuse RTT. Medications appropriately dosed for kidney dysfunction. (3) Anemia: Plan: Venofer 200 mg IV daily x 5 days started 07/27. Epogen 4000 units SQ provided 07/27. H/H stable. SPEP/IF negative for monoclonal abnormality. Admission and Anticipated Discharge Date Admission Date: July 25, 2021 Subjective No acute events overnight. Upset this morning and stating that he wants to go home so he can watch football this weekend. He is not interested in more PT. When we discussed home O2 use, Mr. Hilton stated that his was on O2 at home a nd this doesn't concern him. When discussing dialysis, he did say that he would likely refuse if needed. He is receptive to palliative care consultation and had discussed this with Dr. Seth before I saw Mr. Hilton this morning. I reviewed the plan of care with Dr. Seth. Review of Systems Review of Systems: All systems reviewed & are unremarkable except as noted in HPI & below Physical Exam Constitutional: + cachectic; no acute distress Eyes: no scleral abnormality and no corneal abnormality ENMT: Mouth: + dry oral mucous membranes; no oral mucosal abnormality Neck: normal visual inspection and trachea midline Respiratory: normal respiratory effort Auscultation: lungs clear to auscultation bilaterally Cardiovascular: Rate/Rhythm: regular rate Heart Sounds: normal S1, normal S2 and + murmur Vessels: + JVD Extremities: + edema Musculoskeletal: Extremities: no cyanosis and no clubbing Skin: normal turgor; no lesions Neurologic: Motor/Sensory: no tremor and no asterixis Psychiatric: Orientation: alert Insight: + limited insight Results & Data ([facility]) Vital Signs (Past 12 Hours) Vital Signs Temp Pulse Pulse Resp BP Pulse Ox 07/30/21 08:20 36.7 C 92 H 17 165/79 H 93 07/30/21 07:22 87 18 98 07/30/21 04:00 36.5 C 83 18 145/70 H 94 07/30/21 00:00 85 Laboratory Results Laboratory Results - last 24 hr 07/29/21 07/29/21 07/29/21 11:49 11:49 12:13 Sodium Potassium Chloride Carbon Dioxide Anion Gap BUN Creatinine Est Cr Clr Drug Dosing Est GFR ( Amer) Est GFR (Non-Af Amer) BUN/Creatinine Ratio Glucose POC Glucose Calcium NT-Pro-B Natriuret Pep Procalcitonin 0.06 Adenovirus (PCR) Not Detected B. pertussis DNA (PCR) Not Detected B.parapertussis DNA PCR Not Detected C. pneumoniae DNA (PCR) Not Detected Coronavirus OC43 (PCR) Not Detected Coronavirus HKU1 (PCR) Not Detected Coronavirus 229E (PCR) Not Detected COVID-19 Eval Order [facility]PNP at [facility] SARS-CoV-2 (PCR) Not Detected Coronavirus NL63 (PCR) Not Detected Human Metapneumovir PCR Not Detected Influenza Type A (PCR) Not Detected Influenza Type B (PCR) Not Detected Urine Legionella Ag M. pneumoniae (PCR) Not Detected Parainfluenza 1 (PCR) Not Detected Parainfluenza 2 (PCR) Not Detected Parainfluenza 3 (PCR) Not Detected Parainfluenza 4 (PCR) Not Detected RSV (PCR) Not Detected Entero/Rhino (PCR) Not Detected 07/29/21 07/30/21 07/30/21 Unknown 07:59 08:14 Sodium 138 Potassium 4.4 Chloride 106 Carbon Dioxide 28 Anion Gap 5.0 BUN 57 H Creatinine 2.68 H Est Cr Clr Drug Dosing 17.4 Est GFR ( Amer) 25.1 Est GFR (Non-Af Amer) 21.6 BUN/Creatinine Ratio 21.4 H Glucose 93 POC Glucose 101 H Calcium 9.3 NT-Pro-B Natriuret Pep 17498 H Procalcitonin Adenovirus (PCR) B. pertussis DNA (PCR) B.parapertussis DNA PCR C. pneumoniae DNA (PCR) Coronavirus OC43 (PCR) Coronavirus HKU1 (PCR) Coronavirus 229E (PCR) COVID-19 Eval Order SARS-CoV-2 (PCR) Coronavirus NL63 (PCR) Human Metapneumovir PCR Influenza Type A (PCR) Influenza Type B (PCR) Urine Legionella Ag Pending M. pneumoniae (PCR) Parainfluenza 1 (PCR) Parainfluenza 2 (PCR) Parainfluenza 3 (PCR) Parainfluenza 4 (PCR) RSV (PCR) Entero/Rhino (PCR) PG Care Time/CCT Total # of Minutes Spent Total Time Spent with Patient: Total time spent is greater than 50% in coordination of care (as documented) at patient's floor/unit and/or counseling patient: Coding Level of Care Code 21959 Subseq Hosp Care Lvl 3 Diagnoses Hypertensive emergency I16.1 CKD (chronic kidney disease) N18.9 Chronic kidney disease stage: unspecified stage Anemia D64.9 (1) CKD (chronic kidney disease) Chronic kidney disease stage: unspecified stage Qualified Code(s): N18.9 - Chronic kidney disease, unspecified
[2021-07-30] MEDS: FUROSEMIDE 40 MG TAB PO SCH (11:43)
[2021-07-30] MEDS: FLUTICASONE/VILANTEROL 200/25MCG 14 PUFFS/INHALER INH SCH (13:59)
[2021-07-30] MEDS: UMECLIDINIUM BROMIDE 62.5MCG/BLISTER 7 PUFFS/INHALER INH SCH (14:00)
[2021-07-30] MEDS ORDERED: ALBUT/IPRATROP 3MG/0.5MG NEB 3 ML VIAL NEB PRN (15:44)
--- NOTE | 2021-07-30 18:57 | Hospitalist Progress Note ---
Date of Service July 30, 2021 Assessment & Plan (1) Hypoxia: Plan: Appears to be medically optimized at this time. Will continue treatment for COPD, atypical pneumonia, pleural effusions and pulmonary edema. Aim O2 sats 88-92%, will need 2 step prior to discharge (2) Fatigue: Plan: Suspect secondary to hypoxia, deconditioning, advanced COPD and CKD TSH 5.4, free T4 WNL (3) Pulmonary edema: Plan: Secondary to CKD, TTE no change since 2019 although moderate mitral regurgitation may be contributing Appreciate nephrology recommendations, switch to Lasix 40mg PO daily Blood pressure improved and negative balance. Weight decreasing. Continue Low Na, fluid restricted diet. Strict I&Os, daily weights (4) Congestive heart failure: Plan: Acute on chronic heart failure exacerbation with acute pulmonary edema TTE - unremarkable - suspect fluid retention as a result of CKD and urine retention (5) UTI (urinary tract infection): Plan: Low suspicion of prostate infection with normal PSA. Continue on amoxicillin (no need for Augmentin given sensitivity to ampicillin), 7 day course. (6) Hypertensive emergency: Plan: Improved with IV Lasix. However still requiring PRN labetalol. Continue increased amlodipine 5mg PO BID. Will switch metoprolol succinate to carvedilol tomorrow and uptitrate as needed (7) CKD (chronic kidney disease): Plan: Stage IV with nephrotic range proteinuria. Nb: proteinuria also present in 2019. 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 UPEP pending, however FLC ratio and SPEP not suggestive of myeloma Iron deficiency, transferrin sats 16%. Venofer and EPO per nephrology recommendations. (9) Lower urinary tract symptoms (LUTS): Plan: Increased tamsulosin to BID Urine retention on bladder scan and renal US - fisher catheter placed. Possible reason for worsening CKD and fluid retention. PSA WNL. Warrants TWOC prior to discharge but otherwise will need urology follow up. (10) GERD (gastroesophageal reflux disease): Plan: Switch omeprazole for pantoprazole per hospital formulary (11) CAD (coronary artery disease): Plan: Continue ASA, continue BB, Continue ARB and, statin (12) Hypoalbuminemia due to protein-calorie malnutrition: Plan: Poor nutrition, patient has been on functional decline since his had passed . - supportive care (13) Severe protein-calorie malnutrition: Plan: Boost Plan: VTE Prophylaxis - heparin 5000 units SQ BID Diet - heart healthy, low Na, Fluid restrict 1500ml Disposition - continue on med/tele Admission and Anticipated Discharge Date Admission Date: July 25, 2021 Subjective No significant change in symptoms. Patient upset at the lack of progress. Tells me he just came here for anxiety and he should have never come. Feels he does not need oxygen despite evidence to the contrary and finds it difficult to understand his likelihood of coming straight back to hospital is high given his ongoing fatigue and lack of improvement with physical therapy. We discussed a more palliative approach given his wishes to just go home and be treated more symptomatically and he is agreeable to a palliative care consult while here. Review of Systems Review of Systems: All systems reviewed & are unremarkable except as noted in HPI & below Physical Exam Constitutional: well developed, + cachectic and + frail appearing; + not well nourished and no acute distress ENMT: external ear and nose normal, oropharynx normal Neck: trachea midline, no thyromegaly Respiratory: normal respiratory effort, lungs clear to auscultation no labored breathing, does not use accessory muscles, no cough, not tachypneic, no audible wheezes and no stridor Auscultation: + diminished lung sounds (throughout); no crackles and no wheezes Cardiovascular: Rate/Rhythm: regular rate and regular rhythm Vessels: no JVD Extremities: + edema (+1 edema bilateral lower extremity, improved since admission) Gastrointestinal (Abdomen): normal bowel sounds, soft, nontender, no hepatosplenomegaly Neurologic: moves all extremities and awake; not confused Psychiatric: A+Ox3, euthymic affect Results & Data Results & Data ([facility]) Vital Signs (Past 12 Hours) Vital Signs Temp Pulse Pulse Resp BP Pulse Ox 07/30/21 15:32 88 07/30/21 15:19 36.7 C 95 H 16 153/77 H 94 07/30/21 11:21 36.7 C 95 H 14 145/80 H 90 07/30/21 11:05 90 16 94 07/30/21 10:35 76 07/30/21 08:20 36.7 C 92 H 17 165/79 H 93 07/30/21 07:22 87 18 98 PG Care Time/CCT Total # of Minutes Spent Total Time Spent with Patient: Total time spent is greater than 50% in coordination of care (as documented) at patient's floor/unit and/or counseling patient: Coding Level of Care Code 49043 Subseq Hosp Care Lvl 2 Diagnoses Hypoxia R09.02 Fatigue R53.83 Pulmonary edema J81.1 Congestive heart failure I50.9 UTI (urinary tract infection) N39.0 Hypertensive emergency I16.1 CKD (chronic kidney disease) N18.9 Chronic kidney disease stage: unspecified stage Anemia D64.9 Lower urinary tract symptoms (LUTS) R39.9 GERD (gastroesophageal reflux disease) K21.9 CAD (coronary artery disease) I25.10 Hypoalbuminemia due to protein-calorie malnutrition E46 Severe protein-calorie malnutrition E43 (1) CKD (chronic kidney disease) Chronic kidney disease stage: unspecified stage Qualified Code(s): N18.9 - Chronic kidney disease, unspecified
[2021-07-30] MEDS: ACETAMINOPHEN 325 MG TAB PO PRN (19:43)
[2021-07-30] MEDS: MIRTAZAPINE TAB 15 MG TAB PO SCH (19:47)
[2021-07-31] MEDS: HYDROcodone/ACETAMINOPHEN 10/325 TAB PO PRN ×4 (03:48→23:30)
[2021-07-31 06:48] LABS: BUN Creatinine Ratio 25.5 (10-20); Calcium 8.8 mg/dl (8.5-10.1); Creatinine Clr Calc Pharmacy 18.3 ml/min; Est GFR (African American) 25.9 ml/min; Est GFR (Non-African American) 22.3 ml/min; Potassium 4.8 mmol/L (3.5-5.1)
[2021-07-31] MEDS: IRON SUCROSE 200 MG in 0.9 % SODIUM CHLORIDE 100 ML IV SCH (08:02)
[2021-07-31] MEDS: HYDROmorphone INJ 0.5 MG/0.5 ML SYR IV PRN ×3 (08:02→20:30)
[2021-07-31] MEDS: UMECLIDINIUM BROMIDE 62.5MCG/BLISTER 7 PUFFS/INHALER INH SCH (08:06)
[2021-07-31] MEDS: FLUTICASONE/VILANTEROL 200/25MCG 14 PUFFS/INHALER INH SCH (08:06)
[2021-07-31] MEDS: amLODIPine BESYLATE 5 MG TAB PO SCH ×2 (08:07→20:32)
[2021-07-31] MEDS: FUROSEMIDE 40 MG TAB PO SCH (08:07)
[2021-07-31] MEDS: LOSARTAN POTASSIUM 25 MG TAB PO SCH (08:07)
[2021-07-31] MEDS: AMOXICILLIN 500 MG CAP PO SCH (08:07)
[2021-07-31] MEDS: HEPARIN SOD 5,000 UNIT/0.5 ML VIAL SQ SCH ×2 (08:07→20:34)
[2021-07-31] MEDS: PRIMIDONE 50 MG TAB PO SCH ×2 (08:07→20:39)
[2021-07-31] MEDS: TAMSULOSIN HCL 0.4 MG CAP PO SCH ×2 (08:07→20:38)
[2021-07-31] MEDS: ASPIRIN 81 MG ECTAB PO SCH (08:08)
[2021-07-31] MEDS: PANTOprazole 40 MG TAB PO SCH (08:08)
[2021-07-31] MEDS: ATORVASTATIN 40 MG TAB PO SCH (08:08)
[2021-07-31] MEDS: MAGNESIUM OXIDE 400 MG TAB PO SCH (08:08)
[2021-07-31] MEDS: MULTIVITAMIN TAB PO SCH (08:08)
[2021-07-31] MEDS: FOLIC ACID 400 MCG TAB PO SCH (08:08)
[2021-07-31] MEDS: THIAMINE HCL 100 MG TAB PO SCH (08:08)
[2021-07-31] MEDS: VENLAFAXINE HCL XR 37.5 MG CAPXR PO SCH (08:08)
[2021-07-31] MEDS: AZITHROMYCIN 250 MG TAB PO SCH (08:08)
[2021-07-31] MEDS: carvediloL 25 MG TAB PO SCH ×2 (08:52→20:34)
[2021-07-31] MEDS: predniSONE 20 MG TAB PO SCH (08:52)
[2021-07-31] MEDS ORDERED: AZITHROMYCIN 250 MG TAB PO SCH (09:00)
--- NOTE | 2021-07-31 10:42 | Nephrology Progress Note ---
Date of Service July 31, 2021 Assessment & Plan (1) Hypertensive emergency: Plan: * SBP 130 - 160 mmHg yesterday. BP elevated this morning prior to medications * Continue Amlodipine, Cozaar, Metoprolol and Furosemide * Patient has diuresed 4.3 L since admission * May titrate Cozaar if BP trends up (2) CKD (chronic kidney disease): Plan: * Stage IV CKD w/ baseline Cr 2.3 mg/dL. Evaluation has revealed non-nephritic urine sediment. UPCR 4.5. Renal US R 10.5cm, L 8.8 cm. 07/29 renal artery duplex was negative for DEJON * Proteinuria likely on the basis of HTN (3) Anemia: Plan: * Venofer 200 mg IV daily x 5 days started 07/27 * Epogen 4000 units SQ provided 07/27 * SPEP/IF negative for monoclonal abnormality Admission and Anticipated Discharge Date Admission Date: July 25, 2021 Subjective Mr. Hilton was evaluated in his hospital room this morning. He denied NIXON, visual change or dyspnea. He is very anxious to return home. Review of Systems Constitutional: + weakness; no fever Eyes: no worsening vision and no problem reported Ear, Nose, Mouth, Throat: no problem reported Respiratory: no cough and no dyspnea Cardiovascular: no chest pain, no palpitations and no edema Gastrointestinal: no abdominal pain, no nausea, no vomiting and no diarrhea/loose stools Genitourinary: no dysuria, no urinary hesitancy or no hematuria Musculoskeletal: no back pain Integumentary: no rash Neurologic: no falls, no dizziness and no confusion Physical Exam Constitutional: + frail appearing and + malnourished; not in distress Eyes: PERRL, conjunctivae normal, anicteric sclerae ENMT: external ear and nose normal, oropharynx normal Neck: trachea midline, no thyromegaly Respiratory: normal respiratory effort, lungs clear to auscultation Cardiovascular: RRR, no murmur, no edema Gastrointestinal (Abdomen): normal bowel sounds, soft, nontender, no hepatosplenomegaly Skin: no rashes, warm and dry Neurologic: awake Results & Data ([facility]) Vital Signs (Past 12 Hours) Vital Signs Temp Pulse Pulse Resp BP Pulse Ox 07/31/21 08:03 36.5 C 92 H 11 L 175/84 H 98 07/31/21 07:22 89 07/31/21 03:00 36.8 C 95 H 20 174/84 H 97 07/30/21 23:59 72 Laboratory Results Laboratory Tests 07/31/21 05:43 Sodium 135 L Potassium 4.8 Chloride 102 Carbon Dioxide 29 BUN 67 H Creatinine 2.61 H Glucose 100 H PG Care Time/CCT Total # of Minutes Spent Total Time Spent with Patient: Total time spent is greater than 50% in coordination of care (as documented) at patient's floor/unit and/or counseling patient: Coding Level of Care Code 78722 Subseq Hosp Care Lvl 3 Diagnoses Hypertensive emergency I16.1 CKD (chronic kidney disease) N18.9 Chronic kidney disease stage: unspecified stage Anemia D64.9 (1) CKD (chronic kidney disease) Chronic kidney disease stage: unspecified stage Qualified Code(s): N18.9 - Chronic kidney disease, unspecified
[2021-07-31] MEDS ORDERED: FUROSEMIDE 40 MG/4 ML VIAL IV ONE (18:24)
--- NOTE | 2021-07-31 18:25 | Hospitalist Progress Note ---
Date of Service July 31, 2021 Assessment & Plan (1) Hypoxia: Plan: Will continue treatment for COPD, atypical pneumonia, pleural effusions and pulmonary edema. Aim O2 sats 88-92%, 2 step 6LPM O2 at rest, 8LPM on exertion. (2) Fatigue: Plan: Suspect secondary to hypoxia, deconditioning, advanced COPD and CKD TSH 5.4, free T4 WNL (3) Pulmonary edema: Plan: Secondary to CKD, TTE no change since 2019 although moderate mitral regurgitation may be contributing Appreciate nephrology recommendations, +ve balance the last 2 days with PO Lasix, will switch back to 40mg IV BID Blood pressure improved and negative balance. Weight decreasing. Continue Low Na, fluid restricted diet. Strict I&Os, daily weights (4) Congestive heart failure: Plan: Acute on chronic heart failure exacerbation with acute pulmonary edema TTE - unremarkable - suspect fluid retention as a result of CKD and urine retention (5) UTI (urinary tract infection): Plan: Low suspicion of prostate infection with normal PSA. Continue on amoxicillin (no need for Augmentin given sensitivity to ampicillin), finishes course today. (6) Hypertensive emergency: Plan: Improved with IV Lasix, increased amlodipine 5mg PO BID. Metoprolol succinate switched to carvedilol. Will up titrate Losartan her nephrology recommendations. (7) CKD (chronic kidney disease): Plan: Stage IV with nephrotic range proteinuria. Nb: proteinuria also present in 2019. 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 UPEP pending, however FLC ratio and SPEP not suggestive of myeloma Iron deficiency, transferrin sats 16%. Venofer and EPO per nephrology recommendations. (9) Lower urinary tract symptoms (LUTS): Plan: Increased tamsulosin to BID Urine retention on bladder scan and renal US - fisher catheter placed. Possible reason for worsening CKD and fluid retention. PSA WNL. Will trial without catheter today with increased tamsulosin dosing. (10) GERD (gastroesophageal reflux disease): Plan: Switch omeprazole for pantoprazole per hospital formulary (11) CAD (coronary artery disease): Plan: Continue ASA, continue BB, Continue ARB and, statin (12) Hypoalbuminemia due to protein-calorie malnutrition: Plan: Poor nutrition, patient has been on functional decline since his had passed. - supportive care (13) Severe protein-calorie malnutrition: Plan: Boost Plan: VTE Prophylaxis - heparin 5000 units SQ BID Diet - heart healthy, low Na, Fluid restrict 1500ml Disposition - continue on med/tele Admission and Anticipated Discharge Date Admission Date: July 25, 2021 Subjective He reports feeling well but has a hard time correlating this with requiring oxygen when he wasn't requiring any previously. He does feel much improved compared to his admission. He expresses his main wish is to return home. However he is requiring 6LPM O2 at rest and 8LPMO2 on exertion. He is struggling with physical therapy and has declined rehabilitation. Given his wishes and unsafe discharge we had a long discussion again regarding hospice. He is reluctant to hospice but if it means he is able to return home he is open to the prospect and willing to stay to talk to palliative either tomorrow or Monday. Review of Systems Review of Systems: All systems reviewed & are unremarkable except as noted in HPI & below Physical Exam Constitutional: well developed, + cachectic and + frail appearing; + not well nourished and no acute distress ENMT: external ear and nose normal, oropharynx normal Neck: trachea midline, no thyromegaly Respiratory: normal respiratory effort, lungs clear to auscultation no labored breathing, does not use accessory muscles, no cough, not tachypneic, no audible wheezes and no stridor Auscultation: + diminished lung sounds (throughout); no crackles and no wheezes Cardiovascular: Rate/Rhythm: regular rate and regular rhythm Vessels: no JVD Extremities: + edema (+1 edema bilateral lower extremity, improved since admission) Gastrointestinal (Abdomen): normal bowel sounds, soft, nontender, no hepatosplenomegaly Neurologic: moves all extremities and awake; not confused Psychiatric: A+Ox3, euthymic affect Results & Data Results & Data ([facility]) Vital Signs (Past 12 Hours) Vital Signs Temp Pulse Pulse Pulse Pulse Pulse Pulse 07/31/21 16:00 36.8 C 07/31/21 15:33 81 07/31/21 14:14 87 87 87 90 88 07/31/21 12:03 36.7 C 07/31/21 10:00 07/31/21 08:03 36.5 C 07/31/21 07:22 89 Pulse Pulse Pulse Pulse Pulse Resp Resp 07/31/21 16:00 85 20 07/31/21 15:33 07/31/21 14:14 102 H 95 H 100 H 87 18 07/31/21 12:03 84 12 07/31/21 10:00 07/31/21 08:03 92 H 11 L 07/31/21 07:22 Resp Resp Resp Resp Resp Resp Resp 07/31/21 16:00 07/31/21 15:33 07/31/21 14:14 18 18 18 18 22 22 20 07/31/21 12:03 07/31/21 10:00 07/31/21 08:03 07/31/21 07:22 Resp BP Pulse Ox Pulse Ox Pulse Ox Pulse Ox Pulse Ox 07/31/21 16:00 158/75 H 92 07/31/21 15:33 07/31/21 14:14 18 84 L 85 L 87 L 87 L 07/31/21 12:03 160/80 H 94 07/31/21 10:00 143/85 H 07/31/21 08:03 175/84 H 98 07/31/21 07:22 Pulse Ox Pulse Ox Pulse Ox Pulse Ox Pulse Ox 07/31/21 16:00 07/31/21 15:33 07/31/21 14:14 91 89 L 86 L 94 87 L 07/31/21 12:03 07/31/21 10:00 07/31/21 08:03 07/31/21 07:22 PG Care Time/CCT Total # of Minutes Spent Total Time Spent with Patient: Total time spent is greater than 50% in coordination of care (as documented) at patient's floor/unit and/or counseling patient: Coding Level of Care Code 39634 Subseq Hosp Care Lvl 2 Diagnoses Hypoxia R09.02 Fatigue R53.83 Pulmonary edema J81.1 Congestive heart failure I50.9 UTI (urinary tract infection) N39.0 Hypertensive emergency I16.1 CKD (chronic kidney disease) N18.9 Chronic kidney disease stage: unspecified stage Anemia D64.9 Lower urinary tract symptoms (LUTS) R39.9 GERD (gastroesophageal reflux disease) K21.9 CAD (coronary artery disease) I25.10 Hypoalbuminemia due to protein-calorie malnutrition E46 Severe protein-calorie malnutrition E43 (1) CKD (chronic kidney disease) Chronic kidney disease stage: unspecified stage Qualified Code(s): N18.9 - Chronic kidney disease, unspecified
[2021-07-31] MEDS: LORazepam 0.5 MG TAB PO PRN (20:29)
[2021-07-31] MEDS: MIRTAZAPINE TAB 15 MG TAB PO SCH (20:39)
[2021-07-31] MEDS ORDERED: MoRPHine SULFATE 2 MG/ML CARP IV STA (22:04)
[2021-08-01] MEDS: HYDROmorphone INJ 0.5 MG/0.5 ML SYR IV PRN ×4 (02:30→21:07)
[2021-08-01] MEDS: HYDROcodone/ACETAMINOPHEN 10/325 TAB PO PRN ×3 (05:29→19:36)
[2021-08-01 07:11] LABS: Hematocrit (blood only) 23.4 % (42-52); Hemoglobin 7.3 g/dL (14.0-18.0); Mean Corpuscular Hemoglobin 32.4 pg (25-34); Mean Corpuscular Hgb Conc 31.2 g/dL (32-36); Mean Platelet Volume 9.4 fL (7.4-10.4); Platelet Count 455 K/uL (130-400); RDW Coefficient of Variation 15.5 % (11.5-14.5); RDW Standard Deviation 58.4 fL (36.4-46.3); Red Blood Count 2.25 M/uL (4.7-6.1)
[2021-08-01 07:28] LABS: Creatinine Clr Calc Pharmacy 17.8 ml/min; Est GFR (African American) 25.3 ml/min; Est GFR (Non-African American) 21.8 ml/min; Potassium 4.8 mmol/L (3.5-5.1)
[2021-08-01] MEDS: FOLIC ACID 400 MCG TAB PO SCH (09:00)
[2021-08-01] MEDS: ATORVASTATIN 40 MG TAB PO SCH (09:02)
[2021-08-01] MEDS: ASPIRIN 81 MG ECTAB PO SCH (09:03)
[2021-08-01] MEDS: TAMSULOSIN HCL 0.4 MG CAP PO SCH ×2 (09:03→19:38)
[2021-08-01] MEDS: PRIMIDONE 50 MG TAB PO SCH ×2 (09:03→19:37)
[2021-08-01] MEDS: PANTOprazole 40 MG TAB PO SCH (09:03)
[2021-08-01] MEDS: VENLAFAXINE HCL XR 37.5 MG CAPXR PO SCH (09:04)
[2021-08-01] MEDS: carvediloL 25 MG TAB PO SCH ×2 (09:04→19:36)
[2021-08-01] MEDS: MAGNESIUM OXIDE 400 MG TAB PO SCH (09:04)
[2021-08-01] MEDS: AZITHROMYCIN 250 MG TAB PO SCH (09:04)
[2021-08-01] MEDS: THIAMINE HCL 100 MG TAB PO SCH (09:04)
[2021-08-01] MEDS: predniSONE 20 MG TAB PO SCH (09:04)
[2021-08-01] MEDS: MULTIVITAMIN TAB PO SCH (09:04)
[2021-08-01] MEDS: amLODIPine BESYLATE 5 MG TAB PO SCH ×2 (09:04→19:38)
[2021-08-01] MEDS: HEPARIN SOD 5,000 UNIT/0.5 ML VIAL SQ SCH ×2 (09:05→19:36)
[2021-08-01] MEDS: FLUTICASONE/VILANTEROL 200/25MCG 14 PUFFS/INHALER INH SCH (09:05)
[2021-08-01] MEDS: UMECLIDINIUM BROMIDE 62.5MCG/BLISTER 7 PUFFS/INHALER INH SCH (09:05)
[2021-08-01] MEDS: LOSARTAN POTASSIUM 50 MG TAB PO SCH (09:05)
--- NOTE | 2021-08-01 09:14 | Nephrology Progress Note ---
Date of Service August 01, 2021 Assessment & Plan (1) Hypertensive emergency: Plan: * SBP 140 - 160 mmHg yesterday * Continue Amlodipine, Cozaar, Metoprolol and Furosemide * Patient has diuresed 4.3 L since admission * Cozaar dose increased to 50 mg this morning (2) CKD (chronic kidney disease): Plan: * Stage IV CKD w/ baseline Cr 2.3 mg/dL. Evaluation has revealed non-nephritic urine sediment. UPCR 4.5. Renal US R 10.5cm, L 8.8 cm. 07/29 renal artery duplex was negative for DEJON * Proteinuria likely on the basis of HTN (3) Anemia: Plan: * Completed 1 g IV Venofer 07/31/21 * Will provide Epogen 10,000 units SQ x1 this am * SPEP/IF negative for monoclonal abnormality (4) Debilitated: Plan: * Continues to require oxygen therapy. Remains very frail. Will meet w/ Palliative Care tomorrow to discuss home hospice Admission and Anticipated Discharge Date Admission Date: July 25, 2021 Subjective Mr. Hilton was evaluated in his hospital room this morning. He denied NIXON or visual change. He continues to require O2 at 6L/min NC. He appears very weak this morning Review of Systems Constitutional: + weakness; no fever Eyes: no worsening vision and no problem reported Ear, Nose, Mouth, Throat: no problem reported Respiratory: + dyspnea and + dyspnea on exertion; no cough Cardiovascular: no chest pain, no palpitations and no edema Gastrointestinal: no abdominal pain, no nausea, no vomiting and no diarrhea/loose stools Genitourinary: no dysuria, no urinary hesitancy or no hematuria Musculoskeletal: no back pain Integumentary: no rash Neurologic: no falls, no dizziness and no confusion Physical Exam Constitutional: + frail appearing and + malnourished Eyes: PERRL, conjunctivae normal, anicteric sclerae ENMT: external ear and nose normal, oropharynx normal Neck: trachea midline, no thyromegaly Respiratory: normal respiratory effort, lungs clear to auscultation Cardiovascular: RRR, no murmur, no edema Gastrointestinal (Abdomen): normal bowel sounds, soft, nontender, no hepatosplenomegaly Skin: no rashes, warm and dry Neurologic: awake Results & Data ([facility]) Vital Signs (Past 12 Hours) Vital Signs Temp Pulse Pulse Resp BP Pulse Ox 08/01/21 07:20 36.5 C 82 18 152/71 H 97 08/01/21 03:52 36.4 C L 80 20 164/83 H 97 07/31/21 23:00 36.7 C 87 20 158/78 H 94 07/31/21 22:22 89 Laboratory Results Laboratory Tests 08/01/21 08/01/21 06:53 06:53 WBC 7.70 Hgb 7.3 L Plt Count 455 H Sodium 137 Potassium 4.8 Chloride 103 Carbon Dioxide 31 BUN 80 H Creatinine 2.66 H Glucose 92 Calcium 9.0 PG Care Time/CCT Total # of Minutes Spent Total Time Spent with Patient: Total time spent is greater than 50% in coordination of care (as documented) at patient's floor/unit and/or counseling patient: Coding Level of Care Code 83742 Subseq Hosp Care Lvl 3 Diagnoses Hypertensive emergency I16.1 CKD (chronic kidney disease) N18.9 Chronic kidney disease stage: unspecified stage Anemia D64.9 Debilitated R53.81 (1) CKD (chronic kidney disease) Chronic kidney disease stage: unspecified stage Qualified Code(s): N18.9 - Chronic kidney disease, unspecified
[2021-08-01] MEDS: FUROSEMIDE 40 MG/4 ML VIAL IV SCH ×2 (09:21→17:15)
[2021-08-01] MEDS: EPOETIN ALFA 10,000 UNITS/ML VIAL SQ ONE ×2 (10:05→10:13)
--- NOTE | 2021-08-01 13:27 | Pulmonology Progress Note ---
Date of Service August 01, 2021 Assessment & Plan (1) COPD exacerbation: (2) SOB (shortness of breath): (3) COPD (chronic obstructive pulmonary disease) with emphysema: (4) Acute hypoxemic respiratory failure: (5) Bilateral pleural effusion: (6) Tobacco abuse counseling: (7) CKD (chronic kidney disease): Chronic kidney disease stage: unspecified stage Qualified Code(s): N18.9 - Chronic kidney disease, unspecified (8) Severe protein-calorie malnutrition: (9) Anemia: Plan: 81-year-old male with history of CKD stage IV, CAD, COPD, diastolic heart failure and hypertension currently in the hospital due to acute hypoxemic respiratory failure and volume overload. Acute hypoxemic respiratory failure: Multifactorial related to volume overload, COPD and obstructive lung disease. Continue diuresis. Followed by nephrology. Continue ICS/LABA/LAMA inhaler. COPD exacerbation: Gold class D symptoms. Patient continues to smoke cigarettes. Recommend complete smoking cessation. He notes that his 's passing was a recent trigger for him starting to smoke again. Recommend outpatient PFTs. Continue Breo Ellipta and Incruse Ellipta as above. Discontinue prednisone after 5 to 7 days. Complete a short course of azithromycin. Bilateral infiltrates on CT chest likely related to volume overload. Procalcitonin was - 07/29/2021. Bilateral pleural effusions: Secondary to underlying diastolic CHF, hypoalbuminemia and CKD stage IV. Echo 07/20/2021 with an LVEF of 50 to 55%. Moderate mitral regurgitation, mild tricuspid regurgitation and mild concentric LVH. Shortness of breath secondary to all of the above including anemia, COPD, CHF, bilateral effusions and deconditioning. Tobacco abuse: Smoked for greater than 30 pack years. He started smoking roughly 1 pack a day for the past 2 months after his due to stress. Strongly encourage complete smoking cessation. Agree with palliative care consultation. Pulmonary will sign off. Thank you for the consult. Please call with questions. Admission and Anticipated Discharge Date Admission Date: July 25, 2021 Subjective Patient seen and examined. Denies any shortness of breath at rest. Eating his lunch. No chest pain or fevers. Review of Systems Review of Systems: All systems reviewed & are unremarkable except as noted in HPI & below Physical Exam Physical Exam: Constitutional: Elderly and frail appearing male in no apparent distress. Cachectic. Oxygen tubing in place. Eyes: Pupils are equal round and reactive to light. Conjunctivae are normal. Anicteric sclera. Ears nose, mouth and throat: No obvious deficits Neck: Trachea is midline. Visual inspection is normal. Respiratory: Diminished bilaterally. No significant wheezing. Cardiovascular: Regular rate and rhythm. No murmurs. No edema. Gastrointestinal: Normal bowel sounds, soft, nontender and nondistended. No hep atosplenomegaly noted. Musculoskeletal: No cyanosis. Patient is able to move all extremities. Skin: No rashes, warm dry and intact. Neurologic: No obvious focal neurological deficits seen. Psychiatric: Alert and oriented x3 with a euthymic affect. Results & Data Results & Data ([facility]) Vital Signs (Past 12 Hours) Vital Signs Temp Pulse Pulse Resp BP Pulse Ox 08/01/21 11:08 97.5 F L 71 18 137/64 97 08/01/21 07:20 97.7 F 82 18 152/71 H 97 08/01/21 07:00 85 08/01/21 03:52 97.5 F L 80 20 164/83 H 97 PG Care Time/CCT Total # of Minutes Spent Total Time Spent with Patient: Total time spent is greater than 50% in coordination of care (as documented) at patient's floor/unit and/or counseling patient: Coding Level of Care Code 23444 Subseq Hosp Care Lvl 1 Diagnoses SOB (shortness of breath) R06.02 COPD (chronic obstructive pulmonary disease) with emphysema J43.9 Acute hypoxemic respiratory failure J96.01 Bilateral pleural effusion J90 COPD exacerbation J44.1 Tobacco abuse counseling Z71.6 CKD (chronic kidney disease) N18.9 Chronic kidney disease stage: unspecified stage Severe protein-calorie malnutrition E43 Anemia D64.9
--- NOTE | 2021-08-01 17:46 | Hospitalist Progress Note ---
Date of Service August 01, 2021 Assessment & Plan (1) Hypoxia: Plan: Will continue treatment for COPD, atypical pneumonia, anemia, pleural effusions and pulmonary edema. Aim O2 sats 88-92%, 2 step 6LPM O2 at rest, 8LPM on exertion, although currently appears improved suggesting the positive fluid balance over the last couple of days was making him worse and may benefit from continued IV Lasix. (2) Fatigue: Plan: Suspect secondary to hypoxia, deconditioning, anemia, advanced COPD and CKD TSH 5.4, free T4 WNL (3) Hypertensive emergency: Plan: Improved with IV Lasix, increased amlodipine 5mg PO BID. Metoprolol succinate switched to carvedilol and uptitrated to 25mg PO BID. Losartan increased to 50mg PO daily. Appears well controlled at present time without dizziness on standing. (4) Pulmonary edema: Plan: Continue Low Na, fluid restricted diet. Strict I&Os, daily weights Positive balance over the last few days with oral Lasix 40mg PO therefore switched back to IV Lasix yesterday. Continue 40mg IV BID to aim for negative balance until significant Cr rise. BUN likely a reflexion of steroids as correlates well with this. (5) Congestive heart failure: Plan: Acute on chronic heart failure exacerbation with acute pulmonary edema TTE - unremarkable - suspect fluid retention as a result of CKD and urine retention (6) CKD (chronic kidney disease): Plan: Stage IV with nephrotic range proteinuria. Nb: proteinuria also present in 2019. Appreciate nephrology recommendations (7) COPD (chronic obstructive pulmonary disease) with emphysema: Plan: Appreciate pulmonology recommendations. Will discontinue prednisone now as no significant improvement with this. Continue Breo and Incruse Ellipta inhalers. I was reluctant to start LAMA given his urinary retention although he passed his trial without a catheter. (8) Atypical pneumonia: Plan: Possible diagnosis. Continue azithromycin per pulmonology recommendations. Urine legionella pending. Biofire negative. (9) UTI (urinary tract infection): Plan: Low suspicion of prostate infection with normal PSA. Continue on amoxicillin (no need for Augmentin given sensitivity to ampicillin), finished course of amoxicillin. (10) Anemia: Plan: Suspect anemia of CKD and appears stable. UPEP pending, however FLC ratio and SPEP not suggestive of myeloma Iron deficiency, transferrin sats 16%. Venofer and EPO per nephrology recommendations. EPO given today - if no improvement in hemoglobin could consider transfusion but low suspicion this is a major contributor towards his shortness of breath. (11) Lower urinary tract symptoms (LUTS): Plan: Increased tamsulosin to BID Patient passed trial without catheter 07/31. Bladder scan PVR to check not retaining. (12) GERD (gastroesophageal reflux disease): Plan: Switch omeprazole for pantoprazole per hospital formulary (13) CAD (coronary artery disease): Plan: Continue ASA, continue BB, Continue ARB and, statin (14) Hypoalbuminemia due to protein-calorie malnutrition: Plan: Poor nutrition, patient has been on functional decline since his had passed. - supportive care (15) Severe protein-calorie malnutrition: Plan: Boost (16) Pressure ulcer of both feet, stage 2: Plan: Continue routine wound care. Encouraged patient to reduce his Dilaudid use since he would not be getting this at home. Plan: VTE Prophylaxis - heparin 5000 units SQ BID Diet - heart healthy, low Na, Fluid restrict 1500ml Disposition - continue on med/tele, awaiting palliative consult tomorrow Admission and Anticipated Discharge Date Admission Date: July 25, 2021 Subjective Patient reports no significant change in his symptoms. Awaiting discussion with palliative care tomorrow. Continued hypoxia - although appears slightly improved O2 requirement since 2 step performed yesterday - will likely need to repeat prior to discharge. No significant change with prednisone or COPD treatment. Review of Systems Review of Systems: All systems reviewed & are unremarkable except as noted in HPI & below Physical Exam Constitutional: well developed, + cachectic and + frail appearing; + not well nourished and no acute distress ENMT: external ear and nose normal, oropharynx normal Neck: trachea midline, no thyromegaly Respiratory: normal respiratory effort, lungs clear to auscultation no labored breathing, does not use accessory muscles, no cough, not tachypneic, no audible wheezes and no stridor Auscultation: + diminished lung sounds (throughout); no crackles and no wheezes Cardiovascular: Rate/Rhythm: regular rate and regular rhythm Vessels: no JVD Extremities: + edema (+1 edema bilateral lower extremity, improved since admission) Gastrointestinal (Abdomen): normal bowel sounds, soft, nontender, no hepatosplenomegaly Neurologic: moves all extremities and awake; not confused Psychiatric: A+Ox3, euthymic affect Results & Data Results & Data ([facility]) Vital Signs (Past 12 Hours) Vital Signs Temp Pulse Pulse Resp BP Pulse Ox 08/01/21 15:41 95 08/01/21 15:13 36.0 C L 78 16 135/63 98 08/01/21 15:08 79 08/01/21 11:08 36.4 C L 71 18 137/64 97 08/01/21 07:20 36.5 C 82 18 152/71 H 97 08/01/21 07:00 85 PG Care Time/CCT Total # of Minutes Spent Total Time Spent with Patient: Total time spent is greater than 50% in coordination of care (as documented) at patient's floor/unit and/or counseling patient: Coding Level of Care Code 09323 Subseq Hosp Care Lvl 2 Diagnoses Hypoxia R09.02 Fatigue R53.83 Pulmonary edema J81.1 Congestive heart failure I50.9 UTI (urinary tract infection) N39.0 Hypertensive emergency I16.1 CKD (chronic kidney disease) N18.9 Chronic kidney disease stage: unspecified stage Anemia D64.9 Lower urinary tract symptoms (LUTS) R39.9 GERD (gastroesophageal reflux disease) K21.9 CAD (coronary artery disease) I25.10 Hypoalbuminemia due to protein-calorie malnutrition E46 Severe protein-calorie malnutrition E43 COPD (chronic obstructive pulmonary disease) with emphysema J43.9 Atypical pneumonia J18.9 Pressure ulcer of both feet, stage 2 L89.892 (1) CKD (chronic kidney disease) Chronic kidney disease stage: unspecified stage Qualified Code(s): N18.9 - Chronic kidney disease, unspecified
[2021-08-01] MEDS: MIRTAZAPINE TAB 15 MG TAB PO SCH (19:37)
[2021-08-02] MEDS: HYDROcodone/ACETAMINOPHEN 10/325 TAB PO PRN ×3 (03:07→20:03)
[2021-08-02] MEDS: HYDROmorphone INJ 0.5 MG/0.5 ML SYR IV PRN ×4 (03:22→20:59)
[2021-08-02 07:19] LABS: Basophils # (auto) 0.02 K/uL (0-0.2); Basophils % (auto) 0.3 %; Eosinophils # (auto) 0.18 K/uL (0-0.5); Eosinophils % (auto) 2.8 %; Hematocrit (blood only) 23.4 % (42-52); Hemoglobin 7.3 g/dL (14.0-18.0); Immature Granulocytes # (auto) 0.01 K/uL (0.00-0.02); Immature Granulocytes % (auto) 0.2 %; Lymphocytes # (auto) 1.78 K/uL (1.2-3.4); Mean Corpuscular Hemoglobin 32.7 pg (25-34); Mean Corpuscular Hgb Conc 31.2 g/dL (32-36); Mean Corpuscular Volume 104.9 fL (80-100); Mean Platelet Volume 9.7 fL (7.4-10.4); Monocytes # (auto) 0.58 K/uL (0.11-0.59); Monocytes % (auto) 9.1 %; Neutrophils # (auto) 3.79 K/uL (1.4-6.5); Neutrophils % (auto) 59.6 %; Platelet Count 465 K/uL (130-400); RDW Coefficient of Variation 15.8 % (11.5-14.5); RDW Standard Deviation 60.9 fL (36.4-46.3); Red Blood Count 2.23 M/uL (4.7-6.1); White Blood Count 6.36 K/uL (4.8-10.8)
[2021-08-02 07:54] LABS: Basophilic Stippling 1+; Macrocytosis Present
[2021-08-02 07:59] LABS: BUN Creatinine Ratio 29.6 (10-20); Calcium 8.8 mg/dl (8.5-10.1); Creatinine Clr Calc Pharmacy 16.3 ml/min; Est GFR (Non-African American) 19.8 ml/min; Potassium 4.4 mmol/L (3.5-5.1)
[2021-08-02] MEDS: LOSARTAN POTASSIUM 50 MG TAB PO SCH (08:31)
[2021-08-02] MEDS: TAMSULOSIN HCL 0.4 MG CAP PO SCH ×2 (08:33→20:02)
[2021-08-02] MEDS: FOLIC ACID 400 MCG TAB PO SCH (08:33)
[2021-08-02] MEDS: amLODIPine BESYLATE 5 MG TAB PO SCH ×2 (08:33→20:03)
[2021-08-02] MEDS: PRIMIDONE 50 MG TAB PO SCH ×2 (08:33→20:02)
[2021-08-02] MEDS: FUROSEMIDE 40 MG/4 ML VIAL IV SCH (08:33)
[2021-08-02] MEDS: carvediloL 25 MG TAB PO SCH ×2 (08:33→20:03)
[2021-08-02] MEDS: VENLAFAXINE HCL XR 37.5 MG CAPXR PO SCH (08:34)
[2021-08-02] MEDS: MULTIVITAMIN TAB PO SCH (08:34)
[2021-08-02] MEDS: THIAMINE HCL 100 MG TAB PO SCH (08:34)
[2021-08-02] MEDS: MAGNESIUM OXIDE 400 MG TAB PO SCH (08:34)
[2021-08-02] MEDS: AZITHROMYCIN 250 MG TAB PO SCH (08:34)
[2021-08-02] MEDS: ASPIRIN 81 MG ECTAB PO SCH (08:34)
[2021-08-02] MEDS: PANTOprazole 40 MG TAB PO SCH (08:34)
[2021-08-02] MEDS: ATORVASTATIN 40 MG TAB PO SCH (08:34)
[2021-08-02] MEDS: HEPARIN SOD 5,000 UNIT/0.5 ML VIAL SQ SCH ×2 (08:35→20:03)
[2021-08-02] MEDS: FLUTICASONE/VILANTEROL 200/25MCG 14 PUFFS/INHALER INH SCH (08:35)
[2021-08-02] MEDS: UMECLIDINIUM BROMIDE 62.5MCG/BLISTER 7 PUFFS/INHALER INH SCH (08:35)
--- NOTE | 2021-08-02 08:59 | Nephrology Progress Note ---
Date of Service August 02, 2021 Assessment & Plan (1) Hypertensive emergency: Plan: * SBP 130 - 155 mmHg yesterday * Continue Amlodipine, Cozaar, Metoprolol * Patient has diuresed 4.4 L since admission and now appears clinically volume contracted * Will change from Furosemide 40 mg IV BID to Bumex 1 mg po daily (2) CKD (chronic kidney disease): Plan: * Stage IV CKD w/ baseline Cr 2.8 mg/dL. Evaluation has revealed non-nephritic urine sediment. UPCR 4.5. Renal US R 10.5cm, L 8.8 cm. 07/29 renal artery duplex was negative for DEJON * Proteinuria likely on the basis of HTN (3) Anemia: Plan: * Completed 1 g IV Venofer 07/31/21 * Will provide Epogen 10,000 units SQ x1 provided 08/01/21 * SPEP/IF negative for monoclonal abnormality (4) Debilitated: Plan: * Continues to require oxygen therapy. Remains very frail. Will meet w/ Palliative Care today to discuss home hospice Admission and Anticipated Discharge Date Admission Date: July 25, 2021 Subjective Mr. Hilton was evaluated in his hospital room this morning. He denied NIXON or visual change. He continues to require O2 at 6L/min NC. He remains very weak but reports that he did ambulate in the hallway with assistance and a rolling walker yesterday Review of Systems Constitutional: + weakness; no fever Eyes: no worsening vision and no problem reported Ear, Nose, Mouth, Throat: no problem reported Respiratory: + dyspnea and + dyspnea on exertion; no cough Cardiovascular: no chest pain, no palpitations and no edema Gastrointestinal: no abdominal pain, no nausea, no vomiting and no diarrhea/loose stools Genitourinary: no dysuria, no urinary hesitancy or no hematuria Musculoskeletal: no back pain Integumentary: no rash Neurologic: no falls, no dizziness and no confusion Physical Exam Constitutional: + frail appearing and + malnourished Eyes: PERRL, conjunctivae normal, anicteric sclerae ENMT: external ear and nose normal, oropharynx normal Neck: trachea midline, no thyromegaly Respiratory: normal respiratory effort, lungs clear to auscultation Cardiovascular: RRR, no murmur, no edema Gastrointestinal (Abdomen): normal bowel sounds, soft, nontender, no hepatosplenomegaly Skin: no rashes, warm and dry Neurologic: awake Results & Data ([facility]) Vital Signs (Past 12 Hours) Vital Signs Temp Pulse Pulse Resp BP Pulse Ox 08/02/21 07:00 36.1 C L 75 18 155/67 H 100 08/02/21 03:00 36.7 C 77 20 139/72 94 08/01/21 22:20 76 08/01/21 22:00 36.5 C 80 20 142/68 H 98 Laboratory Results Laboratory Tests 08/02/21 08/02/21 06:56 06:56 WBC 6.36 Hgb 7.3 L Hct 23.4 L Plt Count 465 H Sodium 137 Potassium 4.4 Chloride 102 Carbon Dioxide 32 BUN 85 H Creatinine 2.88 H Glucose 88 PG Care Time/CCT Total # of Minutes Spent Total Time Spent with Patient: Total time spent is greater than 50% in coordination of care (as documented) at patient's floor/unit and/or counseling patient: Coding Level of Care Code 71334 Subseq Hosp Care Lvl 3 Diagnoses Hypertensive emergency I16.1 CKD (chronic kidney disease) N18.9 Chronic kidney disease stage: unspecified stage Anemia D64.9 Debilitated R53.81 (1) CKD (chronic kidney disease) Chronic kidney disease stage: unspecified stage Qualified Code(s): N18.9 - Chronic kidney disease, unspecified
--- NOTE | 2021-08-02 15:19 | Palliative Care Consultation ---
Date of Consultation August 02, 2021 Assessment & Plan (1) SOB (shortness of breath): with respiratory failure, on high flow O2. He is receiving opioids for pain (2) Bilateral foot pain: with pressure ulcers, relieved with hydrocodone and hydromorphone (3) Palliative care encounter: I talked with Mr. Hilton about goals of care. He realizes that he has multiple chronic illnesses and has had functional decline. His hope is to improve to return home and he repeatedly asks me for good news. I explained that we want to understand what is important to him in order to make sure that we are providing care that matches his goals. We reviewed his conditional code status in the chart. He tells me that he would be agreeable to intubation to prolong his life. I asked him if there were any limits to the care that he would want and he told me that there were not. We discussed the burden of family having to make decisions of care if he were intubated or unable to provide guidance on this care. He tells me that he has not created an advance directive and has not discussed his health care goals with his family. He did not want me to contact his daughters to discuss goals of care. I attempted to c larify his goals and he told me that he would want us to do anything necessary to prolong his life. History of Present Illness Reason for Consultation: goals of care Requesting Physician: Dr. Seth Attending Physician: Blaise Ruiz History of Present Illness 81 yo gentleman with CAD, heart failure, CKD and COPD as well as other comorbidities. He was admitted with acute hypoxic respiratory failure. He has had some improvement but continues on high flow oxygen 6L at baseline and 8L with activity. He tells me that he lives alone in an apartment since his . 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 He tells me that he is independent with dressing and bathing. He has had some HUGGINS prior to admission though that is worse now. We have been consulted to discuss hospice care and goals of care. Allergies Allergy/AdvReac Type Severity Reaction Status Date / Time cefuroxime Allergy Intermediate rash Verified 07/26/21 10:38 lisinopril Allergy Mild itching Verified 07/26/21 10:38 Home Medications Medication Instructions Recorded Confirmed Type ferrous sulfate 325 mg (65 mg 325 mg PO QAM #30 tab 03/21/19 07/25/21 Rx iron) tablet,delayed release thiamine HCl (vitamin B1) 100 mg 100 mg PO QAM #30 tab 03/21/19 07/25/21 Rx tablet (Vitamin B-1) aspirin 81 mg tablet,delayed 81 mg PO QAM 05/06/19 07/25/21 History release cyanocobalamin (vitamin B-12) 1,000 mcg PO QAM 05/06/19 07/25/21 History 1,000 mcg tablet (Vitamin B-12) nitroglycerin 0.4 mg sublingual 0.4 mg SUBLINGUAL DIRECTED PRN 05/06/19 07/25/21 History tablet primidone 50 mg tablet 50 mg PO BID #180 tab 10/12/20 07/25/21 Rx omeprazole 40 mg capsule,delayed 40 mg PO DAILY #90 cap 12/30/20 07/25/21 Rx release amlodipine 5 mg tablet 5 mg PO DAILY #90 tab 05/26/21 07/25/21 Rx atorvastatin 40 mg tablet 40 mg PO DAILY #90 tab 05/26/21 07/25/21 Rx metoprolol succinate 100 mg 100 mg PO DAILY #90 tab 05/26/21 07/25/21 Rx tablet,extended release 24 hr (Toprol XL) mirtazapine 30 mg tablet 30 mg PO QPM #90 tab 05/26/21 07/25/21 Rx tamsulosin 0.4 mg capsule 0.4 mg PO QPM #90 cap 05/26/21 07/25/21 Rx multivitamin (Daily Multi-Vitamin) 1 tab PO DAILY 05/28/21 07/25/21 History losartan 25 mg tablet 25 mg PO DAILY 30 Days #30 tab 07/21/21 07/25/21 Rx venlafaxine 37.5 mg 37.5 mg PO QAM 30 Days #30 cap 07/21/21 07/25/21 Rx capsule,extended release 24 hr amoxicillin 500 mg tablet 500 mg PO BID 7 Days #14 tab 07/22/21 07/25/21 Rx folic acid 800 mcg tablet 800 mcg PO QAM #30 tab 07/22/21 07/25/21 Rx lorazepam 0.5 mg tablet 0.5 mg PO BID PRN #60 tab 07/22/21 07/25/21 Rx hydrocodone 10 mg-acetaminophen 2 tab PO Q6H PRN #240 tab MDD 8 07/30/21 Rx 325 mg tablet tabs Patient History Medical History (Updated 08/02/21 @ 20:09 by Jolynn Heredia MD) AAA (abdominal aortic aneurysm) Acute hypoxemic respiratory failure Anemia of chronic disease Anxiety Bilateral pleural effusion CAD (coronary artery disease) PTCA with stent of RCA 1994 Chronic pain Chronic renal insufficiency 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 exacerbation Essential tremor GERD (gastroesophageal reflux disease) Hyperlipidemia LDL goal <70 Hypertension Lower urinary tract symptoms (LUTS) Multiple rib fractures Opioid dependence treated with opiates for chronic low back pain for 10+ years Septal myocardial infarction Tobacco abuse counseling Vitamin B12 deficiency Surgical History H/O heart artery stent (~1994) Family History Denies family history of Ovarian cancer Prostate cancer Myocardial infarction Breast cancer Colorectal cancer Social History Smoking Status: Current every day smoker Tobacco Type: Cigarettes Cigarettes Per Day: 10; Second Hand Exposure: No; Hx Alcohol Use: No Hx Substance Use: No Preferred Language: Citizen Of [place] Communication Ability: Effective Visual Impairment: No Limitations Hearing Ability: Normal Motor Vehicle Light Assembler Required: No Beliefs That Will Affect Care: None marital status: / Current Living Situation: Alone Current Living Situation Comment: Alone at home in apartment after of in March current occupational status: 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 many Children do You have: 1 Feels Safe at Home: Yes Childhood Exposure to Second-Hand Smoke: Yes Dental Care, Regularly: No Physical Activity Frequency: Does not Exercise Seatbelt Use: always Sunscreen Use: No (doesn't really go outside ) Assistive Devices: None and Walker Review of Systems Review of Systems: [place] Symptom Assessment Scale Pain 2/3 Dyspnea 1/3 Nausea 0/3 Fatigue 2/3 Drowsiness 0/3 Palliative Performance Score 40% Results & Data ([facility]) Vital Signs (Past 12 Hours) Vital Signs Temp Pulse Pulse Resp BP Pulse Ox 08/02/21 11:00 97.3 F L 77 18 153/70 H 98 08/02/21 07:00 97.0 F L 71 75 18 155/67 H 100 PG Care Time/CCT Total # of Minutes Spent Total Time Spent with Patient: Total time spent is greater than 50% in coordination of care (as documented) at patient's floor/unit and/or counseling patient: Coding Level of Care Code 07887 Initial Inpt Care Lvl 2 Diagnoses SOB (shortness of breath) R06.02 Bilateral foot pain M79.671; M79.672 Palliative care encounter Z51.5
[2021-08-02] MEDS: MIRTAZAPINE TAB 15 MG TAB PO SCH (20:03)
[2021-08-02] MEDS: LORazepam 0.5 MG TAB PO PRN (20:03)
--- NOTE | 2021-08-02 21:17 | Hospitalist Progress Note ---
Date of Service August 02, 2021 Assessment & Plan (1) Hypoxia: Plan: Will continue treatment for COPD, atypical pneumonia, anemia, pleural effusions and pulmonary edema. Aim O2 sats 88-92%, 2 step 6LPM O2 at rest, 8LPM on exertion, although currently appears improved suggesting the positive fluid balance over the last couple of days was making him worse and may benefit from continued IV Lasix. titrating down oxygen currenty on 2 liters (2) Fatigue: Plan: Suspect secondary to hypoxia, deconditioning, anemia, advanced COPD and CKD TSH 5.4, free T4 WNL (3) Hypertensive emergency: Plan: Improved with IV Lasix, increased amlodipine 5mg PO BID. Metoprolol succinate switched to carvedilol and uptitrated to 25mg PO BID. Losartan increased to 50mg PO daily. Appears well controlled at present time without dizziness on standing. (4) Pulmonary edema: Plan: Continue Low Na, fluid restricted diet. Strict I&Os, daily weights Positive balance over the last few days with oral Lasix 40mg PO therefore switched back to IV Lasix yesterday. Continue 40mg IV BID to aim for negative balance until significant Cr rise. BUN likely a reflexion of steroids as correlates well with this. (5) Congestive heart failure: Plan: Acute on chronic heart failure exacerbation with acute pulmonary edema TTE - unremarkable - suspect fluid retention as a result of CKD and urine retention (6) CKD (chronic kidney disease): Plan: Stage IV with nephrotic range proteinuria. Nb: proteinuria also present in 2019. Appreciate nephrology recommendations (7) COPD (chronic obstructive pulmonary disease) with emphysema: Plan: Appreciate pulmonology recommendations. Will discontinue prednisone now as no significant improvement with this. Continue Breo and Incruse Ellipta inhalers. I was reluctant to start LAMA given his urinary retention although he passed his trial without a catheter. (8) Atypical pneumonia: Plan: Possible diagnosis. Continue azithromycin per pulmonology recommendations. Urine legionella pending. Biofire negative. (9) UTI (urinary tract infection): Plan: Low suspicion of prostate infection with normal PSA. Continue on amoxicillin (no need for Augmentin given sensitivity to ampicillin), finished course of amoxicillin. (10) Anemia: Plan: Suspect anemia of CKD and appears stable. UPEP pending, however FLC ratio and SPEP not suggestive of myeloma Iron deficiency, transferrin sats 16%. Venofer and EPO per nephrology recommendations. EPO given today - if no improvement in hemoglobin could consider transfusion but low suspicion this is a major contributor towards his shortness of breath. (11) Lower urinary tract symptoms (LUTS): Plan: Increased tamsulosin to BID Patient passed trial without catheter 07/31. Bladder scan PVR to check not retaining. (12) GERD (gastroesophageal reflux disease): Plan: Switch omeprazole for pantoprazole per hospital formulary (13) CAD (coronary artery disease): Plan: Continue ASA, continue BB, Continue ARB and, statin (14) Hypoalbuminemia due to protein-calorie malnutrition: Plan: Poor nutrition, patient has been on functional decline since his had passed. - supportive care (15) Severe protein-calorie malnutrition: Plan: Boost (16) Pressure ulcer of both feet, stage 2: Plan: Continue routine wound care. Encouraged patient to reduce his Dilaudid use since he would not be getting this at home. Plan: VTE Prophylaxis - heparin 5000 units SQ BID Diet - heart healthy, low Na, Fluid restrict 1500ml Disposition - continue on med/tele, awaiting palliative consult tomorrow Admission and Anticipated Discharge Date Admission Date: July 25, 2021 Subjective Patient reports feeling better. PPatient understands he has multipe comorbididtes, but is not interested at this moment in hospice. Review of Systems Review of Systems: All systems reviewed & are unremarkable except as noted in HPI & below Physical Exam Physical Exam: Constitutional:L well developed, + cachectic; + not w ell nourished and no acute distress ENMT: external ear and n ose normal, oropha rynx normal Neck: trachea midline, n o thyromegaly Respiratory: normal respiratory effort, lungs micah ar to auscultation no labored breat gi, does not use accessory muscles , no cough, not ta chypneic, no audib le wheezes and no stridor Cardiovascular:L Rate/Rhythm: regul ar rate and regula r rhythm Vessels: no JVD Extremiti es: + edema (+1 ed thee bilateral lowe r extremity, impro paul since admissio n) Gastrointestinal ( Abdomen):L normal bowel sound s, soft, nontender , no hepatosplenom egaly Neurologic: moves all extremit ies and awake; not confused Psychiatric: A+Ox3, euthymic af fect Results & Data Results & Data ([facility]) Vital Signs (Past 12 Hours) Vital Signs Temp Pulse Pulse Resp BP Pulse Ox 08/02/21 19:32 37.0 C 85 20 166/77 H 96 08/02/21 18:10 97 08/02/21 16:00 36.4 C L 72 18 134/65 99 08/02/21 14:30 77 08/02/21 11:00 36.3 C L 77 18 153/70 H 98 PG Care Time/CCT Total # of Minutes Spent Total Time Spent with Patient: Total time spent is greater than 50% in coordination of care (as documented) at patient's floor/unit and/or counseling patient: Coding Level of Care Code 01866 Subseq Hosp Care Lvl 2 Diagnoses Hypoxia R09.02 Fatigue R53.83 Hypertensive emergency I16.1 Pulmonary edema J81.1 Congestive heart failure I50.9 CKD (chronic kidney disease) N18.9 Chronic kidney disease stage: unspecified stage COPD (chronic obstructive pulmonary disease) with emphysema J43.9 Atypical pneumonia J18.9 UTI (urinary tract infection) N39.0 Anemia D64.9 Lower urinary tract symptoms (LUTS) R39.9 GERD (gastroesophageal reflux disease) K21.9 CAD (coronary artery disease) I25.10 Hypoalbuminemia due to protein-calorie malnutrition E46 Severe protein-calorie malnutrition E43 Pressure ulcer of both feet, stage 2 L89.892 (1) CKD (chronic kidney disease) Chronic kidney disease stage: unspecified stage Qualified Code(s): N18.9 - Chronic kidney disease, unspecified
[2021-08-03] MEDS: HYDROcodone/ACETAMINOPHEN 10/325 TAB PO PRN ×4 (04:25→23:04)
[2021-08-03] MEDS: HYDROmorphone INJ 0.5 MG/0.5 ML SYR IV PRN ×4 (04:26→23:04)
[2021-08-03 06:53] LABS: Hematocrit (blood only) 23.2 % (42-52); Hemoglobin 7.3 g/dL (14.0-18.0); Mean Corpuscular Hemoglobin 32.7 pg (25-34); Mean Corpuscular Hgb Conc 31.5 g/dL (32-36); Mean Platelet Volume 9.3 fL (7.4-10.4); Platelet Count 474 K/uL (130-400); RDW Coefficient of Variation 15.9 % (11.5-14.5); RDW Standard Deviation 59.9 fL (36.4-46.3); Red Blood Count 2.23 M/uL (4.7-6.1); White Blood Count 8.23 K/uL (4.8-10.8)
[2021-08-03 08:15] LABS: Calcium 9.2 mg/dl (8.5-10.1); Creatinine Clr Calc Pharmacy 17.2 ml/min; Est GFR (African American) 24.9 ml/min; Est GFR (Non-African American) 21.4 ml/min; Potassium 4.6 mmol/L (3.5-5.1)
[2021-08-03] MEDS: ATORVASTATIN 40 MG TAB PO SCH (08:25)
[2021-08-03] MEDS: BUMETANIDE 1 MG TAB PO SCH (08:25)
[2021-08-03] MEDS: carvediloL 25 MG TAB PO SCH ×2 (08:25→20:41)
[2021-08-03] MEDS: ASPIRIN 81 MG ECTAB PO SCH (08:25)
[2021-08-03] MEDS: PANTOprazole 40 MG TAB PO SCH (08:25)
[2021-08-03] MEDS: PRIMIDONE 50 MG TAB PO SCH ×2 (08:26→20:42)
[2021-08-03] MEDS: VENLAFAXINE HCL XR 37.5 MG CAPXR PO SCH (08:26)
[2021-08-03] MEDS: MAGNESIUM OXIDE 400 MG TAB PO SCH (08:26)
[2021-08-03] MEDS: FLUTICASONE/VILANTEROL 200/25MCG 14 PUFFS/INHALER INH SCH (08:26)
[2021-08-03] MEDS: amLODIPine BESYLATE 5 MG TAB PO SCH ×2 (08:26→20:42)
[2021-08-03] MEDS: LOSARTAN POTASSIUM 50 MG TAB PO SCH (08:26)
[2021-08-03] MEDS: MULTIVITAMIN TAB PO SCH (08:26)
[2021-08-03] MEDS: THIAMINE HCL 100 MG TAB PO SCH (08:26)
[2021-08-03] MEDS: FOLIC ACID 400 MCG TAB PO SCH (08:26)
[2021-08-03] MEDS: TAMSULOSIN HCL 0.4 MG CAP PO SCH ×2 (08:26→20:42)
[2021-08-03] MEDS: HEPARIN SOD 5,000 UNIT/0.5 ML VIAL SQ SCH ×2 (08:27→20:40)
[2021-08-03] MEDS: UMECLIDINIUM BROMIDE 62.5MCG/BLISTER 7 PUFFS/INHALER INH SCH (08:27)
--- NOTE | 2021-08-03 09:07 | Nephrology Progress Note ---
Date of Service August 03, 2021 Assessment & Plan (1) Hypertensive emergency: Plan: * SBP 134 - 156 mmHg yesterday. Given age and frailty, target average SBP 140 mmHg * Continue Amlodipine, Cozaar, Metoprolol * Patient appears clinically volume contracted. Diuretic has been reduced to Bumex 1 mg po qAM (2) CKD (chronic kidney disease): Plan: * Stage IV CKD w/ baseline Cr 2.8 mg/dL. Evaluation has revealed non-nephritic urine sediment. UPCR 4.5. Renal US R 10.5cm, L 8.8 cm. 07/29 renal artery duplex was negative for DEJON * Proteinuria likely on the basis of HTN (3) Anemia: Plan: * Completed 1 g IV Venofer 07/31/21 * Will provide Epogen 10,000 units SQ x1 provided 08/01/21 * SPEP/IF negative for monoclonal abnormality (4) Debilitated: Plan: * Continues to require oxygen therapy. Remains very frail. He declined PT yesterday. Question whether he can safely return home vs. SNF Admission and Anticipated Discharge Date Admission Date: July 25, 2021 Subjective Mr. Hilton was evaluated in his hospital room this morning. He denied NIXON or visual change. He continues to require O2 at 2L/min NC. He c/o weakness but reports that he has been up ambulating with RN assistance Review of Systems Constitutional: + weakness; no fever Eyes: no worsening vision and no problem reported Ear, Nose, Mouth, Throat: no problem reported Respiratory: + dyspnea and + dyspnea on exertion; no cough Cardiovascular: no chest pain, no palpitations and no edema Gastrointestinal: no abdominal pain, no nausea, no vomiting and no diarrhea/loose stools Genitourinary: no dysuria, no urinary hesitancy or no hematuria Musculoskeletal: no back pain Integumentary: no rash Neurologic: no falls, no dizziness and no confusion Physical Exam Constitutional: + frail appearing and + malnourished Eyes: PERRL, conjunctivae normal, anicteric sclerae ENMT: external ear and nose normal, oropharynx normal Neck: trachea midline, no thyromegaly Respiratory: normal respiratory effort, lungs clear to auscultation Cardiovascular: RRR, no murmur, no edema Gastrointestinal (Abdomen): normal bowel sounds, soft, nontender, no hepatospl enomegaly Skin: no rashes, warm and dry Neurologic: awake Results & Data ([facility]) Vital Signs (Past 12 Hours) Vital Signs Temp Pulse Pulse Resp BP Pulse Ox 08/03/21 07:21 36.5 C 84 20 160/73 H 97 08/03/21 04:30 36.5 C 83 20 156/81 H 94 08/02/21 23:03 36.7 C 77 20 148/81 H 98 08/02/21 22:20 72 Laboratory Results Laboratory Tests 08/03/21 08/03/21 06:38 06:38 WBC 8.23 Hgb 7.3 L Hct 23.2 L Plt Count 474 H Sodium 139 Potassium 4.6 Chloride 103 Carbon Dioxide 29 BUN 87 H Creatinine 2.70 H Glucose 101 H Calcium 9.2 PG Care Time/CCT Total # of Minutes Spent Total Time Spent with Patient: Total time spent is greater than 50% in coordination of care (as documented) at patient's floor/unit and/or counseling patient: Coding Level of Care Code 67636 Subseq Hosp Care Lvl 3 Diagnoses Hypertensive emergency I16.1 CKD (chronic kidney disease) N18.9 Chronic kidney disease stage: unspecified stage Anemia D64.9 Debilitated R53.81 (1) CKD (chronic kidney disease) Chronic kidney disease stage: unspecified stage Qualified Code(s): N18.9 - Chronic kidney disease, unspecified
[2021-08-03] MEDS: LIDOCAINE 5% 1 PATCH TD SCH (18:22)
[2021-08-03] MEDS: LORazepam 0.5 MG TAB PO PRN (20:40)
[2021-08-03] MEDS: MIRTAZAPINE TAB 15 MG TAB PO SCH (20:41)
--- NOTE | 2021-08-03 22:59 | Hospitalist Progress Note ---
Date of Service August 03, 2021 Assessment & Plan (1) Hypoxia: Plan: Will continue treatment for COPD, atypical pneumonia, anemia, pleural effusions and pulmonary edema. Aim O2 sats 88-92%, 2 step 6LPM O2 at rest, 8LPM on exertion. Now has been on 2 liters for 24 hours. 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 Patient however states he is not ready for hospice. will continue BUMEX (2) Fatigue: Plan: Suspect secondary to hypoxia, deconditioning, anemia, advanced COPD and CKD TSH 5.4, free T4 WNL (3) Hypertensive emergency: Plan: Improved with IV Lasix, increased amlodipine 5mg PO BID. Metoprolol succinate switched to carvedilol and uptitrated to 25mg PO BID. Losartan increased to 50mg PO daily. Appears well controlled at present time without dizziness on standing. Now on bumex, (4) Pulmonary edema: Plan: Continue Low Na, fluid restricted diet. Strict I&Os, daily weights Positive balance over the last few days with oral Lasix 40mg PO therefore switched back to IV Lasix yesterday. Continue 40mg IV BID to aim for negative balance until significant Cr rise. BUN likely a reflexion of steroids as correlates well with this. (5) Congestive heart failure: Plan: Acute on chronic heart failure exacerbation with acute pulmonary edema TTE - unremarkable - suspect fluid retention as a result of CKD and urine retention (6) CKD (chronic kidney disease): Plan: Stage IV with nephrotic range proteinuria. Nb: proteinuria also present in 2019. Appreciate nephrology recommendations (7) COPD (chronic obstructive pulmonary disease) with emphysema: Plan: Appreciate pulmonology recommendations. Will discontinue prednisone now as no significant improvement with this. Continue Breo and Incruse Ellipta inhalers. I was reluctant to start LAMA given his urinary retention although he passed his trial without a catheter. (8) Atypical pneumonia: Plan: Possible diagnosis. Continue azithromycin per pulmonology recommendations. Urine legionella pending. Biofire negative. (9) UTI (urinary tract infection): Plan: Low suspicion of prostate infection with normal PSA. Continue on amoxicillin (no need for Augmentin given sensitivity to ampicillin), finished course of amoxicillin. (10) Anemia: Plan: Suspect anemia of CKD and appears stable. UPEP pending, however FLC ratio and SPEP not suggestive of myeloma Iron deficiency, transferrin sats 16%. Venofer and EPO per nephrology recommendations. EPO given today - if no improvement in hemoglobin could consider transfusion but low suspicion this is a major contributor towards his shortness of breath. (11) Lower urinary tract symptoms (LUTS): Plan: Increased tamsulosin to BID Patient passed trial without catheter 07/31. Bladder scan PVR to check not retaining. (12) GERD (gastroesophageal reflux disease): Plan: Switch omeprazole for pantoprazole per hospital formulary (13) CAD (coronary artery disease): Plan: Continue ASA, continue BB, Continue ARB and, statin (14) Hypoalbuminemia due to protein-calorie malnutrition: Plan: Poor nutrition, patient has been on functional decline since his had passed. - supportive care (15) Severe protein-calorie malnutrition: Plan: Boost (16) Pressure ulcer of both feet, stage 2: Plan: Continue routine wound care. Encouraged patient to reduce his Dilaudid use since he would not be getting this at home. Plan: VTE Prophylaxis - heparin 5000 units SQ BID Diet - heart healthy, low Na, Fluid restrict 1500ml Disposition - continue on med/tele, awaiting palliative consult tomorrow Admission and Anticipated Discharge Date Admission Date: July 25, 2021 Subjective 81 yo male reports feeling no significant improvement from yesterday. Patient is complaining of right sided chest pain. Patient reports his pain is worse with inspirration Review of Systems Review of Systems: All systems reviewed & are unremarkable except as noted in HPI & below Physical Exam Physical Exam: Constitutional: well developed, + cachectic and + frail appearing; + not well nourished and no acute distress ENMT: external ear and nose normal, oropharynx normal Neck: trachea midline, no thyromegaly Respiratory: normal respiratory effort, lungs clear to auscultation no labored breathing, does not use accessory muscles, no cough, not tachypneic, no audible wheezes and no stridor Auscultation: + diminished lung sounds (throughout); no crackles and no wheezes Cardiovascular: Rate/Rhythm: regular rate and regular rhythm Vessels: no JVD Extremities: + edema (+1 edema bilateral lower extremity, improved since admission) Gastrointestinal (Abdomen): normal bowel sounds, soft, nontender, no hepatosplenomegaly Neurologic: moves all extremities and awake; not confused Psychiatric: A+Ox3, euthymic affect Results & Data Results & Data ([facility]) Vital Signs (Past 12 Hours) Vital Signs Temp Pulse Pulse Resp BP Pulse Ox 08/03/21 19:00 36.8 C 91 H 20 165/81 H 94 08/03/21 15:00 86 08/03/21 14:43 36.6 C 84 18 157/68 H 96 08/03/21 11:26 36.5 C 78 20 137/77 97 PG Care Time/CCT Total # of Minutes Spent Total Time Spent with Patient: Total time spent is greater than 50% in coordination of care (as documented) at patient's floor/unit and/or counseling patient: Coding Level of Care Code 13887 Subseq Hosp Care Lvl 2 Diagnoses Hypoxia R09.02 Fatigue R53.83 Hypertensive emergency I16.1 Pulmonary edema J81.1 Congestive heart failure I50.9 CKD (chronic kidney disease) N18.9 Chronic kidney disease stage: unspecified stage COPD (chronic obstructive pulmonary disease) with emphysema J43.9 Atypical pneumonia J18.9 UTI (urinary tract infection) N39.0 Anemia D64.9 Lower urinary tract symptoms (LUTS) R39.9 GERD (gastroesophageal reflux disease) K21.9 CAD (coronary artery disease) I25.10 Hypoalbuminemia due to protein-calorie malnutrition E46 Severe protein-calorie malnutrition E43 Pressure ulcer of both feet, stage 2 L89.892 (1) CKD (chronic kidney disease) Chronic kidney disease stage: unspecified stage Qualified Code(s): N18.9 - Chronic kidney disease, unspecified
[2021-08-04] MEDS: HYDROmorphone INJ 0.5 MG/0.5 ML SYR IV PRN ×2 (07:46→14:01)
[2021-08-04] MEDS: VENLAFAXINE HCL XR 37.5 MG CAPXR PO SCH (07:52)
[2021-08-04] MEDS: LOSARTAN POTASSIUM 50 MG TAB PO SCH (07:52)
[2021-08-04] MEDS: FOLIC ACID 400 MCG TAB PO SCH (07:52)
[2021-08-04] MEDS: PRIMIDONE 50 MG TAB PO SCH (07:53)
[2021-08-04] MEDS: amLODIPine BESYLATE 5 MG TAB PO SCH (07:53)
[2021-08-04] MEDS: BUMETANIDE 1 MG TAB PO SCH (07:53)
[2021-08-04] MEDS: ATORVASTATIN 40 MG TAB PO SCH (07:53)
[2021-08-04] MEDS: ASPIRIN 81 MG ECTAB PO SCH (07:53)
[2021-08-04] MEDS: TAMSULOSIN HCL 0.4 MG CAP PO SCH (07:53)
[2021-08-04] MEDS: THIAMINE HCL 100 MG TAB PO SCH (07:53)
[2021-08-04] MEDS: PANTOprazole 40 MG TAB PO SCH (07:53)
[2021-08-04] MEDS: MAGNESIUM OXIDE 400 MG TAB PO SCH (07:53)
[2021-08-04] MEDS: MULTIVITAMIN TAB PO SCH (07:53)
[2021-08-04] MEDS: UMECLIDINIUM BROMIDE 62.5MCG/BLISTER 7 PUFFS/INHALER INH SCH (07:54)
[2021-08-04] MEDS: FLUTICASONE/VILANTEROL 200/25MCG 14 PUFFS/INHALER INH SCH (07:54)
[2021-08-04] MEDS: LIDOCAINE 5% 1 PATCH TD SCH ×2 (07:54→10:17)
[2021-08-04] MEDS: carvediloL 25 MG TAB PO SCH (07:54)
[2021-08-04] MEDS: HEPARIN SOD 5,000 UNIT/0.5 ML VIAL SQ SCH (07:55)
[2021-08-04] MEDS: HYDROcodone/ACETAMINOPHEN 10/325 TAB PO PRN ×2 (08:01→16:08)
[2021-08-04 09:17] LABS: BUN Creatinine Ratio 34.9 (10-20); Calcium 9.3 mg/dl (8.5-10.1); Est GFR (Non-African American) 24.1 ml/min; Potassium 4.5 mmol/L (3.5-5.1)
--- NOTE | 2021-08-04 09:28 | Nephrology Progress Note ---
Date of Service August 04, 2021 Assessment & Plan (1) Hypertensive emergency: Plan: * SBP 137 - 165 mmHg yesterday. Given age and frailty, target average SBP 140 mmHg * Continue Amlodipine, Cozaar, Metoprolol * Patient appears clinically volume contracted. Diuretic has been reduced to Bumex 1 mg po qAM (2) CKD (chronic kidney disease): Plan: * Stage IV CKD w/ baseline Cr 2.8 mg/dL. Evaluation has revealed non-nephritic urine sediment. UPCR 4.5. Renal US R 10.5cm, L 8.8 cm. 07/29 renal artery duplex was negative for DEJON * Proteinuria likely on the basis of HTN (3) Anemia: Plan: * Completed 1 g IV Venofer 07/31/21 * Will provide Epogen 10,000 units SQ x1 provided 08/01/21 * SPEP/IF negative for monoclonal abnormality * Hgb is unchanged. Will repeat iron studies today (4) Debilitated: Plan: * Continues to require oxygen therapy. Remains very frail. Question whether he can safely return home vs. SNF. Await PT evaluation (Last attempted evaluation was 08/02/21 - patient refused) Admission and Anticipated Discharge Date Admission Date: July 25, 2021 Subjective Mr. Hilton was evaluated in his hospital room this morning. He denied NIXON or visual change. He continues to require O2 at 2L/min NC. He c/o weakness but reports that he has been up ambulating with RN assistance Review of Systems Constitutional: + weakness; no fever Eyes: no worsening vision and no problem reported Ear, Nose, Mouth, Throat: no problem reported Respiratory: + dyspnea and + dyspnea on exertion; no cough Cardiovascular: no chest pain, no palpitations and no edema Gastrointestinal: no abdominal pain, no nausea, no vomiting and no diarrhea/loose stools Genitourinary: no dysuria, no urinary hesitancy or no hematuria Musculoskeletal: no back pain Integumentary: no rash Neurologic: no falls, no dizziness and no confusion Physical Exam Constitutional: + frail appearing and + malnourished Eyes: PERRL, conjunctivae normal, anicteric sclerae ENMT: external ear and nose normal, oropharynx normal Neck: trachea midline, no thyromegaly Respiratory: normal respiratory effort, lungs clear to auscultation Cardiovascular: RRR, no murmur, no edema Gastrointestinal (Abdomen): normal bowel sounds, soft, nontender, no hepatosplenomegaly Skin: no rashes, warm and dry Neurologic: awake Results & Data ([facility]) Vital Signs (Past 12 Hours) Vital Signs Temp Pulse Pulse Resp BP Pulse Ox 08/04/21 07:00 36.4 C L 83 83 20 175/78 H 99 08/04/21 03:00 36.7 C 73 20 157/76 H 99 08/03/21 22:20 83 08/03/21 22:00 36.6 C 81 20 169/82 H 96 Laboratory Results Laboratory Tests 08/04/21 08:11 Sodium 137 Potassium 4.5 Chloride 103 Carbon Dioxide 30 BUN 85 H Creatinine 2.45 H Glucose 105 H Calcium 9.3 NT-Pro-B Natriuret Pep 4399 H PG Care Time/CCT Total # of Minutes Spent Total Time Spent with Patient: Total time spent is greater than 50% in coordination of care (as documented) at patient's floor/unit and/or counseling patient: Coding Level of Care Code 07142 Subseq Hosp Care Lvl 3 Diagnoses Hypertensive emergency I16.1 CKD (chronic kidney disease) N18.9 Chronic kidney disease stage: unspecified stage Anemia D64.9 Debilitated R53.81 (1) CKD (chronic kidney disease) Chronic kidney disease stage: unspecified stage Qualified Code(s): N18.9 - Chronic kidney disease, unspecified
[2021-08-04 09:37] LABS: Hematocrit (blood only) 24.7 % (42-52); Hemoglobin 7.6 g/dL (14.0-18.0); Mean Corpuscular Hemoglobin 31.9 pg (25-34); Mean Corpuscular Hgb Conc 30.8 g/dL (32-36); Mean Corpuscular Volume 103.8 fL (80-100); Mean Platelet Volume 10.1 fL (7.4-10.4); Platelet Count 493 K/uL (130-400); RDW Coefficient of Variation 16.2 % (11.5-14.5); RDW Standard Deviation 60.5 fL (36.4-46.3); Red Blood Count 2.38 M/uL (4.7-6.1); White Blood Count 8.15 K/uL (4.8-10.8)
[2021-08-04 10:16] LABS: Iron 40 mcg/dl (35-175); Transferrin 194 mg/dl (200-360); Transferrin (FE) Percent Satur 15 % (20-50)
--- NOTE | 2021-08-07 09:12 | Discharge Summary ---
Date of Service August 04, 2021 Admission HPI Per Admitting Provider 81 YOM with past medical history of: AAA, AOCD, Anxiety, CAD, RKD, GERD, HLD, HTN, LUTS, UTI. Patient comes in today for progressive shortness of breath that started last night and was convinced to come in by his friend who checks on him. The patient was noted to be hypertensive >190/120s with crackles and CXR moderate pulmonary edema. He was tachypneic in the 28 range and required 6L/min. Patient deferred intubation by the [facility] physician at that time. He was started on Nitroglycerine drip at 100mcg/min and given Lasix 40mg IV and breathing treatment. His blood pressure came down and he is starting to diu rese. His respiratory status has improved, but remains with bilaterally fine crackles. His BNP was also >35K. Troponin I was negative and his ECG has no dynamic changes The patient also has strong history of anxiety. Patient will be admitted to the ICU to wean down his afterload reducing medication and transition to oral agents if needed. The patient was recently seen in the [facility] earlier for edema of his legs with popped blisters and this has greatly improved. He was also positive for E.COLI in the urine following his discharge on . He was placed on oral Amoxicillin for this and started it on . Will change his oral abx to amoxicillin/clav as this was what it was sensitive to and follow to ensure adequate response as long as patient continues to improve, this would ease transition. Low threshold to transition back to IV abx if clinically worsen. Patient COVID test on admission: NEGATIVE Principal Diagnosis hypoxia Discharge Exam Constitutional: well developed, + cachectic; + not well nourished and no acute distress ENMT: external ear and nose normal, oropharynx normal Neck: trachea midline, no thyromegaly Respiratory: normal respiratory effort, lungs clear to auscultation no labored breathing, does not use accessory muscles, no cough, not tachypneic, no audible wheezes and no stridor Auscultation: + diminished lung sounds (throughout); no crackles and no wheezes Cardiovascular: Rate/Rhythm: regular rate and regular rhythm Vessels: no JVD Extremities: + edema (+1 edema bilateral lower extremity, improved since admission) Gastrointestinal (Abdomen): normal bowel sounds, soft, nontender, no hepatosplenomegaly Neurologic: moves all extremities and awake; not confused Psychiatric: A+Ox3, euthymic affect Discharge Data Allergies Allergy/AdvReac Type Severity Reaction Status Date / Time cefuroxime Allergy Intermediate rash Verified 07/26/21 10:38 lisinopril Allergy Mild itching Verified 07/26/21 10:38 Consultations 07/25/21 18:45 ED Decision to Admit Stat 07/25/21 22:36 Consult Director Of Medical Staff Services Routine 07/26/21 18:04 Consult Nephrology Routine 07/29/21 11:12 Consult Pulmonology Routine 07/30/21 09:40 Consult Palliative Care Routine Ordered Studies 07/26/21 13:30 US renal/blad retro comp Routine 07/29/21 11:22 CT chest diagnostic wo con Urgent 07/29/21 14:30 US duplex renal artery Routine 07/29/21 15:40 US venous doppler LE Urgent Hospital Course (1) Hypoxia: Will continue treatment for COPD, atypical pneumonia, anemia, pleural effusions and pulmonary edema. Aim O2 sats 88-92%, 2 step 6LPM O2 at rest, 8LPM on exertion. Now has been on 2 liters for 24 hours. 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 Patient however states he is not ready for hospice. will continue BUMEX at discharge. Patient able to make own decisions at this time. Patient is refusing rehab and palliative care. (2) Fatigue: Suspect secondary to hypoxia, deconditioning, anemia, advanced COPD and CKD TSH 5.4, free T4 WNL (3) Hypertensive emergency: Improved with IV Lasix, increased amlodipine 5mg PO BID. Metoprolol succinate switched to carvedilol and uptitrated to 25mg PO BID. Losartan increased to 50mg PO daily. Appears well controlled at present time without dizziness on standing. Now on bumex, (4) Pulmonary edema: Continue Low Na, fluid restricted diet. Strict I&Os, daily weights Positive balance over the last few days with oral Lasix 40mg PO therefore switched back to IV Lasix yesterday. Continue 40mg IV BID to aim for negative balance until significant Cr rise. BUN likely a reflexion of steroids as correl ates well with this. (5) Congestive heart failure: Acute on chronic heart failure exacerbation with acute pulmonary edema TTE - unremarkable - suspect fluid retention as a result of CKD and urine retention (6) CKD (chronic kidney disease): Stage IV with nephrotic range proteinuria. Nb: proteinuria also present in 2019. Appreciate nephrology recommendations (7) COPD (chronic obstructive pulmonary disease) with emphysema: Appreciate pulmonology recommendations. Will discontinue prednisone now as no significant improvement with this. Continue Breo and Incruse Ellipta inhalers. I was reluctant to start LAMA given his urinary retention although he passed his trial without a catheter. (8) Atypical pneumonia: Possible diagnosis. Continue azithromycin per pulmonology recommendations. Urine legionella pending. Biofire negative. (9) UTI (urinary tract infection): Low suspicion of prostate infection with normal PSA. Continue on amoxicillin (no need for Augmentin given sensitivity to ampicillin), finished course of amoxicillin. (10) Anemia: Suspect anemia of CKD and appears stable. UPEP pending, however FLC ratio and SPEP not suggestive of myeloma Iron deficiency, transferrin sats 16%. Venofer and EPO per nephrology recommendations. EPO given (11) Lower urinary tract symptoms (LUTS): Increased tamsulosin to BID Patient passed trial without catheter 07/31. Bladder scan PVR to check not retaining. (12) GERD (gastroesophageal reflux disease): Switch omeprazole for pantoprazole per hospital formulary (13) CAD (coronary artery disease): Continue ASA, continue BB, Continue ARB and, statin (14) Hypoalbuminemia due to protein-calorie malnutrition: Poor nutrition, patient has been on functional decline since his had passed. - supportive care (15) Severe protein-calorie malnutrition: Boost (16) Pressure ulcer of both feet, stage 2: Continue routine wound care. Encouraged patient to reduce his Dilaudid use since he would not be getting this at home. VTE Prophylaxis - heparin 5000 units SQ BID Diet - heart healthy, low Na, Fluid restrict 1500ml Total Time Total Time Spent Total Time Spent (In Minutes): 32 Discharge Plan Discharge Items Patient Disposition: Home - Home Health Services Reason For Visit: DYSPNEA Discharge Diagnosis: dyspnea Condition on Discharge: Fair Activity: Resume your previous activity Non-emergency contact: Primary Care Provider Call non-emergency contact if: you have any medication questions Follow-up/Referrals: Юлия Harvey MD [Primary Care Provider] - 08/10/21 2:00 pm (If you have any questions or need to change this appointment, please call [phone].) Diet: Regular Addtl Attending Provider Instructions: You have been hospitalized for an acute medical problem. During your stay at [facility], we have made an effort to correct the problem that brought you to the hospital while keeping you as comfortable as possible. Medic ations were used to bring your condition under control and your discharge instructions will include directions for any medications you should take after leaving the hospital. Please make sure you see your Primary Care Provider as part of your follow up plan. Patient is refusing rehab. Pending Studies at Discharge: No Stand-Alone Forms: [facility] [employer], Smoking Cessation Medications and DC Order Prescriptions: New Incruse Ellipta 62.5 mcg/actuation Blister With Device 1 inh inhalation DAILY Qty: 30 RF: 0 Breo Ellipta 200-25 mcg/dose Blister With Device 1 ea inhalation DAILY Qty: 28 RF: 0 bumetanide 1 mg Tablet 1 mg PO QAM Qty: 30 RF: 0 Continued primidone 50 mg tablet 50 mg PO BID Qty: 180 RF: 3 omeprazole 40 mg capsule,delayed release(DR/EC) 40 mg PO DAILY Qty: 90 RF: 3 lorazepam 0.5 mg tablet 0.5 mg PO BID PRN (Reason: anxiety) Qty: 60 RF: 0 folic acid 800 mcg tablet 800 mcg PO QAM Qty: 30 RF: 0 hydrocodone-acetaminophen 10-325 mg tablet 2 tab PO Q6H MDD 8 tabs PRN (Reason: pain) Qty: 240 RF: 0 atorvastatin 40 mg tablet 40 mg PO DAILY Qty: 90 RF: 3 metoprolol succinate [Toprol XL] 100 mg tablet extended release 24 hr 100 mg PO DAILY Qty: 90 RF: 3 mirtazapine 30 mg tablet 30 mg PO QPM Qty: 90 RF: 3 tamsulosin 0.4 mg capsule 0.4 mg PO QPM Qty: 90 RF: 3 amlodipine 5 mg tablet 5 mg PO DAILY Qty: 90 RF: 3 multivitamin [Daily Multi-Vitamin] Tablet 1 tab PO DAILY RF: 0 aspirin 81 mg tablet,delayed release (DR/EC) 81 mg PO QAM RF: 0 cyanocobalamin (vitamin B-12) [Vitamin B-12] 1,000 mcg tablet 1,000 mcg PO QAM RF: 0 nitroglycerin 0.4 mg tablet, sublingual 0.4 mg sublingual DIRECTED PRN (Reason: Chest Pain) RF: 0 ferrous sulfate 325 mg (65 mg iron) Tablet,Delayed Release (Dr/Ec) 325 mg PO QAM Qty: 30 RF: 0 thiamine HCl (vitamin B1) [Vitamin B-1] 100 mg Tablet 100 mg PO QAM Qty: 30 RF: 0 venlafaxine 37.5 mg Capsule,Extended Release 24hr 37.5 mg PO QAM 30 Days Qty: 30 RF: 0 losartan 25 mg tablet 25 mg PO DAILY 30 Days Qty: 30 RF: 0 Discontinued amoxicillin 500 mg tablet 500 mg PO BID 7 Days Qty: 14 RF: 0 Discharge Orders: Discharge Order (Routine); Ordered 08/04/21 Ordered By: Blaise Kirk/Other Patient Handouts: Heart Failure Making Changes to ... Admission Data Admit Date/Time: 07/25/21 19:47 Attending Provider: Blaise Ruiz Admit Provider: Blaise Ruiz Primary Care Provider: Юлия Harvey Other Providers: [facility] ; Blaise Ruiz ; Bishop Domingo Kevin C. ; Dani Hebert ; Jolynn Heredia Other Interventions: Discharge Summary Assessment (RN) Last Done: 08/04/21 15:49 Coding Level of Care Code D/C DAY MANAGEMENT >30 MINS Diagnoses Hypoxia R09.02 Fatigue R53.83 Hypertensive emergency I16.1 Pulmonary edema J81.1 Congestive heart failure I50.9 CKD (chronic kidney disease) N18.9 Chronic kidney disease stage: unspecified stage COPD (chronic obstructive pulmonary disease) with emphysema J43.9 Atypical pneumonia J18.9 UTI (urinary tract infection) N39.0 Anemia D64.9 Lower urinary tract symptoms (LUTS) R39.9 GERD (gastroesophageal reflux disease) K21.9 CAD (coronary artery disease) I25.10 Hypoalbuminemia due to protein-calorie malnutrition E46 Severe protein-calorie malnutrition E43 Pressure ulcer of both feet, stage 2 L89.892
== END 2021-08-04 19:15 | disposition home health service (06) | DRG 291 ==
LOC: ED 16:55 → SUATTDRO 19:47 → 2S 19:47 → 2N 07-28 13:34

== ENCOUNTER 2021-08-11 03:27 | Inpatient (IN) ==
--- NOTE | 2021-08-11 03:46 | Emergency Department Note ---
Impression & Plan Acute hyperkalemia, Acute exacerbation of chronic obstructive pulmonary disease Admission ED Provider Note HPI: The patient is a very frail and cachectic appearing 81-year-old gentleman with history of COPD, renal insufficiency, coronary artery disease, CHF, presents the emergency department the chief complaint of shortness of breath. Patient states that he woke up in the middle the night feeling acutely short of breath and therefore contacted EMS for transport to the ED. Per EMS report the patient was hypoxic on their arrival, he was on 2 L nasal cannula oxygen saturating in the mid eighties. He was placed on 15 L nonrebreather mask, given a DuoNeb breathing treatment for suspected COPD exacerbation as he reportedly had some mild expiratory wheezing with improvement. On arrival here to the ED he is on 3 L nasal cannula oxygen with saturations in the high nineties. He displays some mild increased work of breathing. Patient denies any chest pain. He was recently admitted to the hospital for acute respiratory failure with multiple other issues and was refusing SNF placement at that time. He has a tablet making machine operator helper at the bedside the tells me that he does have home nursing services currently but does live alone. ROS: -Pulmonary: Hypoxia, increased work of breathing, COPD exacerbation *10 point review systems was conducted and is otherwise negative unless stated above *Outpatient medications and allergy history reviewed PE: General: Frail-appearing, alert, cachectic HEENT: Normocephalic, atraumatic, trachea midline Eyes: Extraocular eye movement is intact, no scleral erythema Pulmonary: Diminished bilaterally Cardio: Regular rate and rhythm GI: Abdomen is soft, nontender : No suprapubic tenderness MSK: No evidence of trauma or malformation of the extremities, no edema Skin: No evidence of rash Neuro: Alert, no focal deficits Psychiatric: Cooperative satellite project 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 He does have a history of COPD as well as CHF, his chest x- ray shows mild pulmonary edema pattern. He has diminished breath sounds bilaterally on arrival therefore was given DuoNeb breathing treatment and IV Solu-Medrol. His blood pressure improved without IV and antihypertensives. His work of breathing also improved. Lab work shows evidence of hyperkalemia of 6.2, troponin is negative x1, BNP is elevated at approximately 9000 however this is improved from previous presentati ons with respiratory failure. Mild nonspecific leukocytosis. Patient denies any recent fever cough. Patient was given calcium gluconate given some tall T waves in leads V3 and V4, he was also given insulin, dextrose, albuterol via nebulized treatment. He was given a dose of Lasix and also ordered IV fluid. I think the patient is high risk for discharge, he was recommended for retirement facility placement however the patient refused. His long-term prognosis is poor given his frailty and multiple comorbidities. I do think he needs to be admitted to the hospital today. Patient was in agreement to this. [place] [facility] [place]. Patient and his tablet making machine operator helper at the bedside are in agreement to the above plan the patient was admitted in stable condition. * Diagnosis: COPD exacerbation with hypoxia, hyperkalemia in the setting of chronic renal failure * Disposition: Admission * CRITICAL CARE TIME: 37 min -Time personally spent independent of any procedures at the bedside with acute medical management, treatment of hyperkalemia > 6.0 requiring IV medications for treatment/stabilization, interpretation of diagnostic studies, arrangement of admission Mike Bhat DO Emergency Medicine Past Med/Surg History Medical History (Updated 08/11/21 @ 05:31 by Mike Bhat DO) AAA (abdominal aortic aneurysm) Acute hypoxemic respiratory failure Anemia of chronic disease Anxiety Bilateral pleural effusion CAD (coronary artery disease) PTCA with stent of RCA 1994 Chronic pain Chronic renal insufficiency 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 exacerbation Essential tremor GERD (gastroesophageal reflux disease) Hyperlipidemia LDL goal <70 Hypertension Lower urinary tract symptoms (LUTS) Multiple rib fractures Opioid dependence treated with opiates for chronic low back pain for 10+ years Septal myocardial infarction Tobacco abuse counseling Vitamin B12 deficiency Surgical History H/O heart artery stent (~1994) Family History Denies family history of Ovarian cancer Prostate cancer Myocardial infarction Breast cancer Colorectal cancer Social History Smoking Status: Current every day smoker Tobacco Type: Cigarettes Cigarettes Per Day: 10; Second Hand Exposure: No; Hx Alcohol Use: No Hx Substance Use: No Preferred Language: Iranian Communication Ability: Effective Visual Impairment: No Limitations Hearing Ability: Normal Senior Sql Database Developer Required: No Beliefs That Will Affect Care: None marital status: / Current Living Situation: Alone Current Living Situation Comment: Alone at home in apartment after of in March current occupational status: 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 many Children do You have: 1 Feels Safe at Home: Yes Childhood Exposure to Second-Hand Smoke: Yes Dental Care, Regularly: No Physical Activity Frequency: Does not Exercise Seatbelt Use: always Sunscreen Use: No (doesn't really go outside ) Assistive Devices: Walker Allergies Allergies Allergy/AdvReac Type Severity Reaction Status Date / Time cefuroxime Allergy Intermediate rash Verified 08/10/21 14:03 lisinopril Allergy Mild itching Verified 08/10/21 14:03 Home Meds Home Medications Medication Instructions Recorded Confirmed aspirin 81 mg tablet,delayed 81 mg PO QAM 05/06/19 08/10/21 release cyanocobalamin (vitamin B-12) 1,000 mcg PO QAM 05/06/19 08/10/21 1,000 mcg tablet (Vitamin B-12) nitroglycerin 0.4 mg sublingual 0.4 mg SUBLINGUAL DIRECTED PRN 05/06/19 08/10/21 tablet multivitamin (Daily Multi-Vitamin) 1 tab PO DAILY 05/28/21 08/10/21 Previous Rx's Medication Instructions Recorded ferrous sulfate 325 mg (65 mg 325 mg PO QAM #30 tab 03/21/19 iron) tablet,delayed release thiamine HCl (vitamin B1) 100 mg 100 mg PO QAM #30 tab 03/21/19 tablet (Vitamin B-1) primidone 50 mg tablet 50 mg PO BID #180 tab 10/12/20 omeprazole 40 mg capsule,delayed 40 mg PO DAILY #90 cap 12/30/20 release amlodipine 5 mg tablet 5 mg PO DAILY #90 tab 05/26/21 atorvastatin 40 mg tablet 40 mg PO DAILY #90 tab 05/26/21 metoprolol succinate 100 mg 100 mg PO DAILY #90 tab 05/26/21 tablet,extended release 24 hr (Toprol XL) mirtazapine 30 mg tablet 30 mg PO QPM #90 tab 05/26/21 tamsulosin 0.4 mg capsule 0.4 mg PO QPM #90 cap 05/26/21 folic acid 800 mcg tablet 800 mcg PO QAM #30 tab 07/22/21 lorazepam 0.5 mg tablet 0.5 mg PO BID PRN #60 tab 07/22/21 hydrocodone 10 mg-acetaminophen 2 tab PO Q6H PRN #240 tab MDD 8 07/30/21 325 mg tablet tabs fluticasone furoate 200 1 ea INHALATION DAILY #28 ea 08/04/21 mcg-vilanterol 25 mcg/dose inhalation powder (Breo Ellipta) umeclidinium 62.5 mcg/actuation 1 inh INHALATION DAILY #30 ea 08/04/21 blister powder for inhalation (Incruse Ellipta) bumetanide 1 mg tablet 1 mg PO QAM #90 tab 08/10/21 hydrocodone 10 mg-acetaminophen 1 tab PO Q6H PRN #120 tab 08/10/21 325 mg tablet losartan 25 mg tablet 25 mg PO DAILY #90 tab 08/10/21 venlafaxine 37.5 mg 37.5 mg PO QAM 30 Days #90 cap 08/10/21 capsule,extended release 24 hr Results & Data (ED) Vital Signs Vital Signs - 24 hr 08/11/21 03:29 08/11/21 03:34 08/11/21 03:40 Temperature 36.8 C Temperature Source Oral Pulse Rate 105 H 105 H 94 H Pulse Rate [Apical] Pulse Rhythm Regular Pulse Strength Normal Respiratory Rate 26 H 31 H 29 H Respiratory Effort / Characteristics Non-Labored Spontaneous Respiratory Depth Normal Respiratory Pattern Regular Blood Pressure 173/96 H Blood Pressure Mean 121 Blood Pressure Position Sitting Pulse Oximetry 95 95 97 Oxygen Delivery Method Nasal Cannula Oxygen Flow Rate 2 2 2 Sepsis Recent Fever Within 48 Hours No Sepsis New/Unexplained Change in Mental Status No Sepsis Action Taken by Nursing Physician Notified 08/11/21 03:50 08/11/21 04:00 08/11/21 04:04 Temperature Temperature Source Pulse Rate 92 H 86 84 Pulse Rate [Apical] Pulse Rhythm Regular Pulse Strength Respiratory Rate 17 26 H Respiratory Effort / Characteristics Respiratory Depth Respiratory Pattern Blood Pressure Blood Pressure Mean Blood Pressure Position Pulse Oximetry 96 98 94 Oxygen Delivery Method Nasal Cannula Oxygen Flow Rate 2 2 2 Sepsis Recent Fever Within 48 Hours Sepsis New/Unexplained Change in Mental Status Sepsis Action Taken by Nursing 08/11/21 04:10 08/11/21 04:20 08/11/21 04:30 Temperature Temperature Source Pulse Rate 86 82 81 Pulse Rate [Apical] Pulse Rhythm Pulse Strength Respiratory Rate 26 H 14 17 Respiratory Effort / Characteristics Respiratory Depth Respiratory Pattern Blood Pressure 134/74 Blood Pressure Mean 94 Blood Pressure Position Pulse Oximetry 97 99 98 Oxygen Delivery Method Oxygen Flow Rate 2 2 2 Sepsis Recent Fever Within 48 Hours Sepsis New/Unexplained Change in Mental Status Sepsis Action Taken by Nursing 08/11/21 04:40 08/11/21 04:50 08/11/21 04:57 Temperature Temperature Source Pulse Rate 87 85 Pulse Rate [Apical] 81 Pulse Rhythm Pulse Strength Respiratory Rate 19 22 17 Respiratory Effort / Characteristics Non-Labored Spontaneous Respiratory Depth Respiratory Pattern Blood Pressure Blood Pressure Mean Blood Pressure Position Pulse Oximetry 98 97 97 Oxygen Delivery Method Nasal Cannula Oxygen Flow Rate 2 2 2.5 Sepsis Recent Fever Within 48 Hours Sepsis New/Unexplained Change in Mental Status Sepsis Action Taken by Nursing 08/11/21 05:00 08/11/21 05:10 08/11/21 05:20 Temperature Temperature Source Pulse Rate 81 78 85 Pulse Rate [Apical] Pulse Rhythm Pulse Strength Respiratory Rate 18 18 18 Respiratory Effort / Characteristics Respiratory Depth Respiratory Pattern Blood Pressure Blood Pressure Mean Blood Pressure Position Pulse Oximetry 97 97 97 Oxygen Delivery Method Oxygen Flow Rate 2 2 2 Sepsis Recent Fever Within 48 Hours Sepsis New/Unexplained Change in Mental Status Sepsis Action Taken by Nursing 08/11/21 05:30 08/11/21 05:40 08/11/21 05:50 Temperature Temperature Source Pulse Rate 86 88 76 Pulse Rate [Apical] Pulse Rhythm Pulse Strength Respiratory Rate 16 14 16 Respiratory Effort / Characteristics Respiratory Depth Respiratory Pattern Blood Pressure 154/73 H Blood Pressure Mean 100 Blood Pressure Position Pulse Oximetry 97 97 97 Oxygen Delivery Method Oxygen Flow Rate 2 2 2 Sepsis Recent Fever Within 48 Hours Sepsis New/Unexplained Change in Mental Status Sepsis Action Taken by Nursing Laboratory Data Result diagrams: 08/11/21 04:12 08/11/21 04:12 Lab Results 08/11/21 08/11/21 08/11/21 Range/Units 04:12 04:12 04:18 WBC 11.83 H (4.8-10.8) K/uL RBC 2.52 L (4.7-6.1) M/uL Hgb 8.3 L (14.0-18.0) g/dL Hct 27.1 L (42-52) % MCV 107.5 H (80-100) fL MCH 32.9 (25-34) pg MCHC 30.6 L (32-36) g/dL RDW Std Deviation 69.3 H (36.4-46.3) fL RDW Coeff of Lucas 17.5 H (11.5-14.5) % Plt Count 424 H (130-400) K/uL MPV 9.4 (7.4-10.4) fL Immature Gran % (Auto) 0.3 % Neut % (Auto) 79.8 % Lymph % (Auto) 10.1 % Florence % (Auto) 6.4 % Eos % (Auto) 3.2 % Baso % (Auto) 0.2 % Neut # (Auto) 9.45 H (1.4-6.5) K/uL Lymph # (Auto) 1.19 L (1.2-3.4) K/uL Florence # (Auto) 0.76 H (0.11-0.59) K/uL Eos # (Auto) 0.38 (0-0.5) K/uL Baso # (Auto) 0.02 (0-0.2) K/uL Immature Gran # (Auto) 0.03 H (0.00-0.02) K/uL VBG pH 7.31 L (7.36-7.41) VBG pCO2 58 H (38-50) mmHg VBG pO2 44 mmHg VBG HCO3 28 mmol/L VBG O2 Saturation 76.9 % VBG Base Excess 1.7 mEq/L Sodium 139 (136-145) mmol/L Potassium 6.2 H* (3.5-5.1) mmol/L Chloride 109 H (98-107) mmol/L Carbon Dioxide 28 (21-32) mmol/L Anion Gap 2.0 L (3-11) BUN 65 H (7-18) mg/dl Creatinine 2.63 H (0.6-1.4) mg/dl Est Cr Clr Drug Dosing 18.7 ml/min Est GFR ( Amer) 25.7 ml/min Est GFR (Non-Af Amer) 22.1 ml/min BUN/Creatinine Ratio 24.9 H (10-20) Glucose 106 H (70-99) mg/dl POC Glucose (70-99) mg/dl Calcium 8.1 L (8.5-10.1) mg/dl Total Bilirubin 0.1 L (0.2-1) mg/dl AST 23 (15-37) U/L ALT 49 (12-78) U/L Alkaline Phosphatase 99 (45-117) U/L Troponin I < 0.015 (0-0.045) ng/ml NT-Pro-B Natriuret Pep 9215 H (0-1800) pg/ml Total Protein 6.6 (6.4-8.2) gm/dl Albumin 2.4 L (3.4-5.0) gm/dl Globulin 4.2 H (2.5-4.0) gm/dl Albumin/Globulin Ratio 0.6 L (0.9-2) 08/11/21 Range/Units 05:36 WBC (4.8-10.8) K/uL RBC (4.7-6.1) M/uL Hgb (14.0-18.0) g/dL Hct (42-52) % MCV (80-100) fL MCH (25-34) pg MCHC (32-36) g/dL RDW Std Deviation (36.4-46.3) fL RDW Coeff of Lucas (11.5-14.5) % Plt Count (130-400) K/uL MPV (7.4-10.4) fL Immature Gran % (Auto) % Neut % (Auto) % Lymph % (Auto) % Florence % (Auto) % Eos % (Auto) % Baso % (Auto) % Neut # (Auto) (1.4-6.5) K/uL Lymph # (Auto) (1.2-3.4) K/uL Florence # (Auto) (0.11-0.59) K/uL Eos # (Auto) (0-0.5) K/uL Baso # (Auto) (0-0.2) K/uL Immature Gran # (Auto) (0.00-0.02) K/uL VBG pH (7.36-7.41) VBG pCO2 (38-50) mmHg VBG pO2 mmHg VBG HCO3 mmol/L VBG O2 Saturation % VBG Base Excess mEq/L Sodium (136-145) mmol/L Potassium (3.5-5.1) mmol/L Chloride (98-107) mmol/L Carbon Dioxide (21-32) mmol/L Anion Gap (3-11) BUN (7-18) mg/dl Creatinine (0.6-1.4) mg/dl Est Cr Clr Drug Dosing ml/min Est GFR ( Amer) ml/min Est GFR (Non-Af Amer) ml/min BUN/Creatinine Ratio (10-20) Glucose (70-99) mg/dl POC Glucose 105 H (70-99) mg/dl Calcium (8.5-10.1) mg/dl Total Bilirubin (0.2-1) mg/dl AST (15-37) U/L ALT (12-78) U/L Alkaline Phosphatase (45-117) U/L Troponin I (0-0.045) ng/ml NT-Pro-B Natriuret Pep (0-1800) pg/ml Total Protein (6.4-8.2) gm/dl Albumin (3.4-5.0) gm/dl Globulin (2.5-4.0) gm/dl Albumin/Globulin Ratio (0.9-2) Administered Medications Discontinued Medications Albuterol (Albut/Ipratrop 3mg/0.5mg Neb 3 Ml Vial) 3 ml NEB NOW STA Stop: 08/11/21 04:49 Last Admin: 08/11/21 04:56 Dose: 3 ml Documented by: [id number] Dextrose (Dextrose 50% 50 Ml Syringe) 50 ml IV NOW STA Stop: 08/11/21 04:53 Last Admin: 08/11/21 05:54 Dose: 50 ml Documented by: [id number] Furosemide (Furosemide 40 Mg/4 Ml Vial) Confirm Administered Dose 40 mg IV .STK- MED ONE Stop: 08/11/21 05:15 Last Admin: 08/11/21 05:53 Dose: 20 mg Documented by: [id number] Insulin Human Regular 10 units (/ Syringe) 9.9 mls @ 3 mls/sec IV ONE STA Stop: 08/11/21 04:53 Last Admin: 08/11/21 05:54 Dose: 3 mls/sec Documented by: [id number] Cosigned by: [id number] Sodium Chloride (Nss 1000ml) 250 mls @ 999 mls/hr IV .Q16M ONE Stop: 08/11/21 05:18 Last Admin: 08/11/21 05:41 Dose: 999 mls/hr Documented by: [id number] Calcium Gluconate () 1,000 mg in 60 mls @ 240 mls/hr IV NOW STA Stop: 08/11/21 05:29 Last Admin: 08/11/21 05:42 Dose: 240 mls/hr Documented by: [id number] Insulin Aspart (Insulin Aspart Per Unit) Confirm Administered Dose 1 units .ROUTE .STK-MED ONE Stop: 08/11/21 05:15 Last Admin: 08/11/21 05:24 Dose: Not Given Documented by: [id number] Methylprednisolone (Methylprednisolone 125 Mg/2 Ml Vial) 125 mg IV NOW STA Stop: 08/11/21 04:49 Last Admin: 08/11/21 04:53 Dose: 125 mg Documented by: [id number] Nitroglycerin (Nitroglycerin Sl 0.4 Mg/Tab Tab) 0.4 mg SL NOW STA Stop: 08/11/21 04:18 Last Admin: 08/11/21 04:49 Dose: Not Given Documented by: [id number] Discharge Plan Visit Data Chief Complaint: Shortness of Breath/Dyspnea Stated Complaint: SOB ED Provider: Mike Bhat Discharge Problem: Acute hyperkalemia, Acute exacerbation of chronic obstructive pulmonary disease Forms Stand Alone Forms: [facility] Prescriptions Prescriptions: No Action primidone 50 mg tablet 50 mg PO BID Qty: 180 RF: 3 omeprazole 40 mg capsule,delayed release(DR/EC) 40 mg PO DAILY Qty: 90 RF: 3 lorazepam 0.5 mg tablet 0.5 mg PO BID PRN (Reason: anxiety) Qty: 60 RF: 0 folic acid 800 mcg tablet 800 mcg PO QAM Qty: 30 RF: 0 hydrocodone-acetaminophen 10-325 mg tablet 2 tab PO Q6H MDD 8 tabs PRN (Reason: pain) Qty: 240 RF: 0 atorvastatin 40 mg tablet 40 mg PO DAILY Qty: 90 RF: 3 metoprolol succinate [Toprol XL] 100 mg tablet extended release 24 hr 100 mg PO DAILY Qty: 90 RF: 3 mirtazapine 30 mg tablet 30 mg PO QPM Qty: 90 RF: 3 tamsulosin 0.4 mg capsule 0.4 mg PO QPM Qty: 90 RF: 3 amlodipine 5 mg tablet 5 mg PO DAILY Qty: 90 RF: 3 multivitamin [Daily Multi-Vitamin] Tablet 1 tab PO DAILY RF: 0 bumetanide 1 mg tablet 1 mg PO QAM Qty: 90 RF: 3 losartan 25 mg tablet 25 mg PO DAILY Qty: 90 RF: 3 venlafaxine 37.5 mg capsule,extended release 24hr 37.5 mg PO QAM 30 Days Qty: 90 RF: 3 hydrocodone-acetaminophen 10-325 mg tablet 1 tab PO Q6H PRN (Reason: pain) Qty: 120 RF: 0 aspirin 81 mg tablet,delayed release (DR/EC) 81 mg PO QAM RF: 0 cyanocobalamin (vitamin B-12) [Vitamin B-12] 1,000 mcg tablet 1,000 mcg PO QAM RF: 0 nitroglycerin 0.4 mg tablet, sublingual 0.4 mg sublingual DIRECTED PRN (Reason: Chest Pain) RF: 0 ferrous sulfate 325 mg (65 mg iron) Tablet,Delayed Release (Dr/Ec) 325 mg PO QAM Qty: 30 RF: 0 thiamine HCl (vitamin B1) [Vitamin B-1] 100 mg Tablet 100 mg PO QAM Qty: 30 RF: 0 Incruse Ellipta 62.5 mcg/actuation Blister With Device 1 inh inhalation DAILY Qty: 30 RF: 0 Breo Ellipta 200-25 mcg/dose Blister With Device 1 ea inhalation DAILY Qty: 28 RF: 0 Referrals Referrals: Юлия Harvey MD [Primary Care Provider] -
[2021-08-11] MEDS ORDERED: ALBUT/IPRATROP 3MG/0.5MG NEB 3 ML VIAL ONE (03:58)
[2021-08-11] MEDS ORDERED: NITROGLYCERIN SL 0.4 MG/TAB TAB SL STA (04:17)
[2021-08-11 04:24] LABS: Basophils # (auto) 0.02 K/uL (0-0.2); Basophils % (auto) 0.2 %; Eosinophils # (auto) 0.38 K/uL (0-0.5); Eosinophils % (auto) 3.2 %; Hematocrit (blood only) 27.1 % (42-52); Hemoglobin 8.3 g/dL (14.0-18.0); Immature Granulocytes # (auto) 0.03 K/uL (0.00-0.02); Immature Granulocytes % (auto) 0.3 %; Lymphocytes # (auto) 1.19 K/uL (1.2-3.4); Lymphocytes % (auto) 10.1 %; Mean Corpuscular Hemoglobin 32.9 pg (25-34); Mean Corpuscular Hgb Conc 30.6 g/dL (32-36); Mean Corpuscular Volume 107.5 fL (80-100); Mean Platelet Volume 9.4 fL (7.4-10.4); Monocytes # (auto) 0.76 K/uL (0.11-0.59); Monocytes % (auto) 6.4 %; Neutrophils # (auto) 9.45 K/uL (1.4-6.5); Neutrophils % (auto) 79.8 %; Platelet Count 424 K/uL (130-400); RDW Coefficient of Variation 17.5 % (11.5-14.5); RDW Standard Deviation 69.3 fL (36.4-46.3); Red Blood Count 2.52 M/uL (4.7-6.1); White Blood Count 11.83 K/uL (4.8-10.8)
[2021-08-11 04:31] LABS: Base Excess VBG 1.7 mEq/L; HCO3 VBG 28 mmol/L; Oxygen Saturation VBG 76.9 %; PCO2 VBG 58 mmHg (38-50); PO2 VBG 44 mmHg; pH VBG 7.31 (7.36-7.41)
[2021-08-11] MEDS ORDERED: ALBUT/IPRATROP 3MG/0.5MG NEB 3 ML VIAL NEB STA (04:48)
[2021-08-11] MEDS ORDERED: methylPREDNISolone 125 MG/2 ML VIAL IV STA (04:48)
[2021-08-11 04:51] LABS: Alanine Aminotransferase 49 U/L (12-78); Albumin Globulin Ratio 0.6 (0.9-2); Albumin Level 2.4 gm/dl (3.4-5.0); Alkaline Phosphatase 99 U/L (45-117); Aspartate Aminotransferase 23 U/L (15-37); BUN Creatinine Ratio 24.9 (10-20); Bilirubin,Total 0.1 mg/dl (0.2-1); Blood Urea Nitrogen 65 mg/dl (7-18); Calcium 8.1 mg/dl (8.5-10.1); Carbon Dioxide 28 mmol/L (21-32); Chloride 109 mmol/L (98-107); Creatinine Clr Calc Pharmacy 18.7 ml/min; Est GFR (African American) 25.7 ml/min; Est GFR (Non-African American) 22.1 ml/min; Globulin 4.2 gm/dl (2.5-4.0); Glucose 106 mg/dl (70-99); NT Pro B Type Natriuretic Pept 9215 pg/ml (0-1800); Potassium 6.2 mmol/L (3.5-5.1); Sodium 139 mmol/L (136-145); Total Protein 6.6 gm/dl (6.4-8.2); Troponin I < 0.015 ng/ml (0-0.045)
[2021-08-11] MEDS ORDERED: FUROSEMIDE INJ 20 MG/2 ML VIAL IV STA (04:52)
[2021-08-11] MEDS ORDERED: INSULIN HUMAN REGULAR PER UNIT 10 UNITS in SYRINGE 9.9 ML IV STA (04:52)
[2021-08-11] MEDS ORDERED: DEXTROSE 50% 50 ML SYRINGE IV STA ×3 (04:52→23:44)
[2021-08-11] MEDS ORDERED: SODIUM CHLORIDE 0.9% 1000ML 250 ML IV ONE (05:03)
[2021-08-11] MEDS ORDERED: INSULIN ASPART PER UNIT ONE (05:14)
[2021-08-11] MEDS ORDERED: CALCIUM GLUCONATE 1,000 MG/60 ML BAG IV STA (05:15)
[2021-08-11] MEDS: FUROSEMIDE 40 MG/4 ML VIAL IV ONE ×2 (05:45→05:53)
--- NOTE | 2021-08-11 06:52 | History & Physical Report ---
Date of Service August 11, 2021 Assessment & Plan (1) Acute on chronic respiratory failure with hypoxia: Plan: At last admission from 07/25-08/04 was noted to be in CHF exacerbation. This admission appears to be more related to a COPD exacerbation (2) Acute exacerbation of chronic obstructive pulmonary disease: Plan: Received methylprednisolone 125 mg IV in the ED Methylprednisolone 40 mg IV every 8 hours Azithromycin 500 mg IV daily Guaifenesin extended release 1200 mg p.o. twice daily Duonebs every 4 hours while awake and every 2 hours when necessary. (3) Hypoxia: Plan: Nasal cannula oxygen, titrate to keep pulse ox 92 to 94% (4) Acute hyperkalemia: Plan: Potassium was 6.2 upon admission. He received from the ED Lasix 20 mg IV, D50 followed by 10 of regular insulin IV, calcium gluconate 1 g IV, and NSS 250 mls We will repeat BMP at this time, which is about 3 hours from his treatments, and treat further as needed. (5) CAD (coronary artery disease): Plan: CAD/hypertension/CHF- Hold amlodipine and losartan Continue aspirin, bumetanide, metoprolol succinate (6) Pressure ulcer of both feet, stage 2: Plan: Wound care consult if needed (7) CHF (congestive heart failure): Plan: See above (8) Severe protein-calorie malnutrition: Plan: Continue home supplementation: Vitamin B12, ferrous sulfate, folic acid and thiamine (9) Chronic kidney disease (CKD), stage III (moderate): Plan: Creatinine 2.63 upon admission, with range 2.28-2.88 Follow serially (10) Opioid dependence: Plan: Has been on [place] on a as needed basis for the past 10 years reportedly for arthritis, will continue Continue primidone for essential tremor (11) GERD (gastroesophageal reflux disease): Plan: Continue omeprazole/pantoprazole (12) Hyperlipidemia LDL goal <70: Plan: Continue atorvastatin (13) Hypertension: Plan: See above History of Present Illness Chief Complaint: The patient presents to the emergency department after calling his grandson, and then calling 911 due to waking up acutely short of breath in the middle of the night. Primary Care Provider: Юлия Harvey MD The patient is a 81-year-old male with a past medical history including pressure ulcers of bilateral feet stage II, atypical pneumonia, general debilitation, tobacco abuse, COPD exacerbations, bilateral pleural effusions, acute hypoxemic respiratory failure, hypertensive emergency, CHF, UTI, hypertensive emergency, severe protein calorie malnutrition, BPH with LUTS, AAA, essential tremor, opioid dependence, GERD, anxiety, deb B12 deficiency, CAD and hypertension. The patient is lethargic and tired, and does not contribute to his HPI or review of systems. His family member who is in the room, relates his story, and notes that the patient's pulse ox was in the mid 80s at home. The patient had reportedly gone to see his outpatient physician on 08/10, and had been doing well. He went to bed normally. And woke up as noted above acutely short of breath in the middle evening. He reportedly received a nebulizer treatment in route to the hospital, which improved his breathing. Family member denies any other aggravating or alleviating factors. Patient is status post admission at [facility] from 07/25-08/04 for pulmonary edema/CHF. Abnormal laboratories: WBC 11.83, hemoglobin 8.3, hematocrit 27.1, platelets 424, sodium 139, glucose of 6.2, BUN 65, creatinine 2.63, BNP 9215 and albumin 2.4. Chest x-ray shows significant improvement from most recent from last hospitalization. Allergies Allergy/AdvReac Type Severity Reaction Status Date / Time cefuroxime Allergy Intermediate rash Verified 08/10/21 14:03 lisinopril Allergy Mild itching Verified 08/10/21 14:03 Home Medications Medication Instructions Recorded Confirmed Type ferrous sulfate 325 mg (65 mg 325 mg PO QAM #30 tab 03/21/19 08/10/21 Rx iron) tablet,delayed release thiamine HCl (vitamin B1) 100 mg 100 mg PO QAM #30 tab 03/21/19 08/10/21 Rx tablet (Vitamin B-1) aspirin 81 mg tablet,delayed 81 mg PO QAM 05/06/19 08/10/21 History release cyanocobalamin (vitamin B-12) 1,000 mcg PO QAM 05/06/19 08/10/21 History 1,000 mcg tablet (Vitamin B-12) nitroglycerin 0.4 mg sublingual 0.4 mg SUBLINGUAL DIRECTED PRN 05/06/19 08/10/21 History tablet primidone 50 mg tablet 50 mg PO BID #180 tab 10/12/20 08/10/21 Rx omeprazole 40 mg capsule,delayed 40 mg PO DAILY #90 cap 12/30/20 08/10/21 Rx release amlodipine 5 mg tablet 5 mg PO DAILY #90 tab 05/26/21 08/10/21 Rx atorvastatin 40 mg tablet 40 mg PO DAILY #90 tab 05/26/21 08/10/21 Rx metoprolol succinate 100 mg 100 mg PO DAILY #90 tab 05/26/21 08/10/21 Rx tablet,extended release 24 hr (Toprol XL) mirtazapine 30 mg tablet 30 mg PO QPM #90 tab 05/26/21 08/10/21 Rx tamsulosin 0.4 mg capsule 0.4 mg PO QPM #90 cap 05/26/21 08/10/21 Rx multivitamin (Daily Multi-Vitamin) 1 tab PO DAILY 05/28/21 08/10/21 History folic acid 800 mcg tablet 800 mcg PO QAM #30 tab 07/22/21 08/10/21 Rx lorazepam 0.5 mg tablet 0.5 mg PO BID PRN #60 tab 07/22/21 08/10/21 Rx hydrocodone 10 mg-acetaminophen 2 tab PO Q6H PRN #240 tab MDD 8 07/30/21 08/10/21 Rx 325 mg tablet tabs fluticasone furoate 200 1 ea INHALATION DAILY #28 ea 08/04/21 08/10/21 Rx mcg-vilanterol 25 mcg/dose inhalation powder (Breo Ellipta) umeclidinium 62.5 mcg/actuation 1 inh INHALATION DAILY #30 ea 08/04/21 08/10/21 Rx blister powder for inhalation (Incruse Ellipta) bumetanide 1 mg tablet 1 mg PO QAM #90 tab 08/10/21 08/10/21 Rx hydrocodone 10 mg-acetaminophen 1 tab PO Q6H PRN #120 tab 08/10/21 08/10/21 Rx 325 mg tablet losartan 25 mg tablet 25 mg PO DAILY #90 tab 08/10/21 08/10/21 Rx venlafaxine 37.5 mg 37.5 mg PO QAM 30 Days #90 cap 08/10/21 08/10/21 Rx capsule,extended release 24 hr Past Med/Surg History Medical History (Updated 08/11/21 @ 06:46 by Praneeth Tejada MD) AAA (abdominal aortic aneurysm) Acute hypoxemic respiratory failure Anemia of chronic disease Anxiety Bilateral pleural effusion CAD (coronary artery disease) PTCA with stent of RCA 1994 Chronic kidney disease (CKD), stage III (moderate) Chronic pain Chronic renal insufficiency 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 exacerbation Essential tremor GERD (gastroesophageal reflux disease) Hyperlipidemia LDL goal <70 Hypertension Lower urinary tract symptoms (LUTS) Multiple rib fractures Opioid dependence treated with opiates for chronic low back pain for 10+ years Septal myocardial infarction Tobacco abuse counseling Vitamin B12 deficiency Surgical History H/O heart artery stent (~1994) Family History Denies family history of Ovarian cancer Prostate cancer Myocardial infarction Breast cancer Colorectal cancer Social History Smoking Status: Current every day smoker Tobacco Type: Cigarettes Cigarettes Per Day: 10; Second Hand Exposure: No; Hx Alcohol Use: No Hx Substance Use: No Preferred Language: Danish Communication Ability: Effective Visual Impairment: No Limitations Hearing Ability: Normal Line Runner Required: No Beliefs That Will Affect Care: None marital status: / Current Living Situation: Alone Current Living Situation Comment: Alone at home in apartment after of in March current occupational status: 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 He looks to be a combination of fatigue due to not having slept while in the ED, and general lethargy Physical Exam Physical Exam: The patient is awake, does not respond to questions, malnourished as noted before, normocephalic and atraumatic, lying in bed and in no acute distress. HEENT--PERRL, EOMI, mucous membranes and oropharynx dry. Neck--supple. No JVD. No bruits. Thyroid normal, trachea midline, no adenopa thy. Heart--normal S1 and S2. No murmurs, rubs or gallops. Lungs--decreased breath sounds throughout. No respiratory distress, no accessory muscle use. Abdomen--normal bowel sounds and soft. Nontender. Nondistended, no hernias or masses, no organomegaly. Extremities--no cyanosis or clubbing. No edema. Dermatologic--normal skin turgor, normal color, no abnormal lymph nodes, no rash. Neurologic--cranial nerves II through XII grossly intact. Rheumatologic--normal range of motion. Psychiatric--unresponsive Results & Data Results & Data ([facility]) Vital Signs (Past 12 Hours) Vital Signs Temp Pulse Pulse Resp BP Pulse Ox 08/11/21 05:50 76 16 154/73 H 97 08/11/21 05:40 88 14 97 08/11/21 05:30 86 16 97 08/11/21 05:20 85 18 97 08/11/21 05:10 78 18 97 08/11/21 05:00 81 18 97 08/11/21 04:57 81 17 97 08/11/21 04:50 85 22 97 08/11/21 04:40 87 19 98 08/11/21 04:30 81 17 134/74 98 08/11/21 04:20 82 14 99 08/11/21 04:10 86 26 H 97 08/11/21 04:04 84 94 08/11/21 04:00 86 26 H 98 08/11/21 03:50 92 H 17 96 08/11/21 03:40 94 H 29 H 97 08/11/21 03:34 105 H 31 H 95 08/11/21 03:29 98.3 F 105 H 26 H 173/96 H 95 Laboratory Results Laboratory Results WBC 11.83 K/uL (4.8-10.8) H 08/11/21 04:12 RBC 2.52 M/uL (4.7-6.1) L 08/11/21 04:12 Hgb 8.3 g/dL (14.0-18.0) L 08/11/21 04:12 Hct 27.1 % (42-52) L 08/11/21 04:12 MCV 107.5 fL (80-100) H 08/11/21 04:12 MCH 32.9 pg (25-34) 08/11/21 04:12 MCHC 30.6 g/dL (32-36) L 08/11/21 04:12 RDW Std Deviation 69.3 fL (36.4-46.3) H 08/11/21 04:12 RDW Coeff of [place] 17.5 % (11.5-14.5) H 08/11/21 04:12 Plt Count 424 K/uL (130-400) H 08/11/21 04:12 MPV 9.4 fL (7.4-10.4) 08/11/21 04:12 Immature Gran % (Auto) 0.3 % 08/11/21 04:12 Neut % (Auto) 79.8 % 08/11/21 04:12 Lymph % (Auto) 10.1 % 08/11/21 04:12 [place] % (Auto) 6.4 % 08/11/21 04:12 Eos % (Auto) 3.2 % 08/11/21 04:12 Baso % (Auto) 0.2 % 08/11/21 04:12 Neut # (Auto) 9.45 K/uL (1.4-6.5) H 08/11/21 04:12 Lymph # (Auto) 1.19 K/uL (1.2-3.4) L 08/11/21 04:12 [place] # (Auto) 0.76 K/uL (0.11-0.59) H 08/11/21 04:12 Eos # (Auto) 0.38 K/uL (0-0.5) 08/11/21 04:12 Baso # (Auto) 0.02 K/uL (0-0.2) 08/11/21 04:12 Immature Gran # (Auto) 0.03 K/uL (0.00-0.02) H 08/11/21 04:12 VBG pH 7.31 (7.36-7.41) L 08/11/21 04:18 VBG pCO2 58 mmHg (38-50) H 08/11/21 04:18 VBG pO2 44 mmHg 08/11/21 04:18 VBG HCO3 28 mmol/L 08/11/21 04:18 VBG O2 Saturation 76.9 % 08/11/21 04:18 VBG Base Excess 1.7 mEq/L 08/11/21 04:18 Sodium 139 mmol/L (136-145) 08/11/21 04:12 Potassium 6.2 mmol/L (3.5-5.1) H* 08/11/21 04:12 Chloride 109 mmol/L (98-107) H 08/11/21 04:12 Carbon Dioxide 28 mmol/L (21-32) 08/11/21 04:12 Anion Gap 2.0 (3-11) L 08/11/21 04:12 BUN 65 mg/dl (7-18) H 08/11/21 04:12 Creatinine 2.63 mg/dl (0.6-1.4) H 08/11/21 04:12 Est Cr Clr Drug Dosing 18.7 ml/min 08/11/21 04:12 Est GFR ( Amer) 25.7 ml/min 08/11/21 04:12 Est GFR (Non-Af Amer) 22.1 ml/min 08/11/21 04:12 BUN/Creatinine Ratio 24.9 (10-20) H 08/11/21 04:12 Glucose 106 mg/dl (70-99) H 08/11/21 04:12 POC Glucose 105 mg/dl (70-99) H 08/11/21 05:36 Calcium 8.1 mg/dl (8.5-10.1) L 08/11/21 04:12 Total Bilirubin 0.1 mg/dl (0.2-1) L 08/11/21 04:12 AST 23 U/L (15-37) 08/11/21 04:12 ALT 49 U/L (12-78) 08/11/21 04:12 Alkaline Phosphatase 99 U/L (45-117) 08/11/21 04:12 Troponin I < 0.015 ng/ml (0-0.045) 08/11/21 04:12 NT-Pro-B Natriuret Pep 9215 pg/ml (0-1800) H 08/11/21 04:12 Total Protein 6.6 gm/dl (6.4-8.2) 08/11/21 04:12 Albumin 2.4 gm/dl (3.4-5.0) L 08/11/21 04:12 Globulin 4.2 gm/dl (2.5-4.0) H 08/11/21 04:12 Albumin/Globulin Ratio 0.6 (0.9-2) L 08/11/21 04:12 COVID-19 Eval Order Covid19 at [facility] 08/11/21 05:58 Code Status & VTE Plan Code Status Full code VTE Prophylaxis Plan VTE Prophylaxis will be ordered: Yes PG Care Time/CCT Total # of Minutes Spent Total Time Spent with Patient: Total time spent is greater than 50% in coordination of care (as documented) at patient's floor/unit and/or counseling patient: Coding Level of Care Code 56687 Initial Inpt Care Lvl 3 Diagnoses Acute exacerbation of chronic obstructive pulmonary disease J44.1 Hypoxia R09.02 Acute on chronic respiratory failure with hypoxia J96.21 Acute hyperkalemia E87.5 Pressure ulcer of both feet, stage 2 L89.892 CHF (congestive heart failure) I50.9 Heart failure chronicity: acute Heart failure type: unspecified Severe protein-calorie malnutrition E43 Chronic kidney disease (CKD), stage III (moderate) N18.30 Opioid dependence F11.20 GERD (gastroesophageal reflux disease) K21.9 CAD (coronary artery disease) I25.10 Hyperlipidemia LDL goal <70 E78.5 Hypertension I10 (1) CHF (congestive heart failure) Heart failure chronicity: acute Heart failure type: unspecified Qualified Code(s): I50.9 - Heart failure, unspecified
[2021-08-11] MEDS ORDERED: HYDROCODONE/ACETAMOPHEN 5/325MG TAB PO PRN (06:53)
[2021-08-11 07:56] LABS: BUN Creatinine Ratio 24.1 (10-20); Calcium 8.5 mg/dl (8.5-10.1); Creatinine Clr Calc Pharmacy 18.7 ml/min; Est GFR (African American) 25.5 ml/min; Potassium 6.1 mmol/L (3.5-5.1)
--- NOTE | 2021-08-11 08:53 | XRay Report ---
XR chest 1V portable CLINICAL HISTORY: Dyspnea. COMPARISON STUDY: 07/29/2021 TECHNIQUE: 1 view of the chest FINDINGS: Single frontal view of the chest demonstrates the cardiomediastinal silhouette to be within normal li mits. Compared to the previous examination, mild residual patchy interstitial and alveolar opacities are seen bilaterally. No new alveolar opacities or air bronchograms are seen. There is interval resol ution of left pleural effusion and left basilar atelectasis. There is no evidence for pleural effusio n. There is no evidence for vascular congestion. There is no acute osseous pathology. IMPRESSION: Mild residual patchy interstitial and alveolar opacities are seen bilaterally with no new alveolar opacities or air bronchograms seen. ACT 112: Negative or not required by law. Electronically signed by: Geovanni Delacruz M.D. 08/11/2021 8:52 AM
[2021-08-11] MEDS ORDERED: ONDANSETRON INJ 2 MG/ML 2 ML VIAL IV PRN (09:44)
[2021-08-11] MEDS ORDERED: NITROGLYCERIN SL 0.4 MG/TAB TAB SL PRN (09:44)
[2021-08-11] MEDS ORDERED: ACETAMINOPHEN 325 MG TAB PO PRN (09:44)
[2021-08-11] MEDS ORDERED: AZITHROMYCIN 500 MG in DEXTROSE 5% 250 ML IV SCH (10:15)
[2021-08-11] MEDS: ALBUT/IPRATROP 3MG/0.5MG NEB 3 ML VIAL NEB SCH ×4 (10:31→19:48)
[2021-08-11] MEDS: HYDROCODONE/ACETAMOPHEN 5/325MG TAB PO PRN ×2 (10:33→19:35)
[2021-08-11] MEDS: ASPIRIN 81 MG ECTAB PO SCH (11:22)
[2021-08-11] MEDS: ATORVASTATIN 40 MG TAB PO SCH (11:24)
[2021-08-11] MEDS: guaiFENesin 600 MG TABCR PO SCH ×2 (11:26→21:12)
[2021-08-11] MEDS: FOLIC ACID 400 MCG TAB PO SCH (11:26)
[2021-08-11] MEDS: CYANOCOBALAMIN 500 MCG TABLET (VITAMIN B-12) PO SCH (11:26)
[2021-08-11] MEDS: HEPARIN SOD 5,000 UNIT/0.5 ML VIAL SQ SCH ×2 (11:27→21:14)
[2021-08-11] MEDS: PANTOprazole 40 MG TAB PO SCH (11:28)
[2021-08-11] MEDS: UMECLIDINIUM BROMIDE 62.5MCG/BLISTER 7 PUFFS/INHALER INH SCH (11:28)
[2021-08-11] MEDS: THIAMINE HCL 100 MG TAB PO SCH (11:28)
[2021-08-11] MEDS: MULTIVITAMIN TAB PO SCH (11:28)
[2021-08-11] MEDS: METOPROLOL SUCC 50MG EXT REL TAB PO SCH (11:28)
[2021-08-11] MEDS: PRIMIDONE 50 MG TAB PO SCH ×2 (11:28→21:13)
[2021-08-11] MEDS: VENLAFAXINE HCL XR 37.5 MG CAPXR PO SCH (11:29)
--- NOTE | 2021-08-11 12:03 | Hospitalist Progress Note ---
Date of Service August 11, 2021 Assessment & Plan (1) Acute on chronic respiratory failure with hypoxia: Plan: - At last admission from 07/25-08/04 was noted to be in CHF exacerbation. - Current sx consistent with COPD exacerbation - BNP 9215 Despite elevated BNP CXR does not show pulmonary congestion/fluid overload, he does not have any edema, and he appears clinically hypovolemic with elevated BUN/creatinine ratio. (2) Acute exacerbation of chronic obstructive pulmonary disease: Plan: -Received methylprednisolone 125 mg IV in the ED -Methylprednisolone 40 mg IV every 8 hours - Azithromycin 500 mg IV daily -Guaifenesin extended release 1200 mg p.o. twice daily -Duonebs every 4 hours while awake and every 2 hours when necessary. (3) Hypoxia: Plan: -Nasal cannula oxygen, titrate to keep pulse ox 92 to 94% (4) Acute hyperkalemia: Plan: -Potassium was 6.2 upon admission. ? Medication effect versus volume depletion -He received from the ED Lasix 20 mg IV, D50 followed by 10 of regular insulin IV, calcium gluconate 1 g IV, and NSS 250 mls -Repeat BMP with up trended potassium Patient started on lactulose, given additional insulin/D50, and NSS bolus with insulin. While he has a history of CHF and elevated BNP he is clinically hypovolemic and does not show evidence of congestion on CXR. Additional fluid bolus with low-dose Lasix given. [place] given, 1 dose today, 2 dose total. Defer additional dose if normalization of potassium Repeat BMP at 5 PM Additional 1 g calcium gluconate given (5) CAD (coronary artery disease): Plan: - Hold amlodipine and losartan - Continue aspirin, bumetanide, metoprolol succinate (6) Pressure ulcer of both feet, stage 2: Plan: Wound care consult if needed (7) CHF (congestive heart failure): Plan: See above (8) Severe protein-calorie malnutrition: Plan: Continue home supplementation: Vitamin B12, ferrous sulfate, folic acid and thiamine (9) Chronic kidney disease (CKD), stage III (moderate): Plan: Creatinine 2.63 upon admission, with range 2.28-2.88 Follow serially See above for treatment hypokalemia (10) Opioid dependence: Plan: - On [place] PRN x10 years reportedly for arthritis, will continue - Continue primidone for essential tremor (11) GERD (gastroesophageal reflux disease): Plan: Continue omeprazole/pantoprazole (12) Hyperlipidemia LDL goal <70: Plan: Continue atorvastatin (13) Hypertension: Plan: See above Admission and Anticipated Discharge Date Admission Date: August 11, 2021 Barber Mary is seen at bedside this morning. He reports he feels "fine ", but continues to have chronic pain in his feet from his maxwell. He reports the pain is the same as it has been, and actually improved from prior and is gradually improving of the previous 2 weeks. He reports he is frustrated by being back in the hospital, and wants to go home soon as possible. He reports he does not feel short of breath at bedside, but notes he woke up yesterday after not using his home oxygen during a nap with a feeling of shortness of breath that scared him. He denies chest pain, chest pressure, palpitations, fever, chills. He reports he has been peeing normally, but has not been drinking much water and drinks mostly soda at home. He has been able to sleep laying flat in the last day or 2. Denies diarrhea/constipation. He endorses some wheezing yesterday, endorses a history of COPD. Feels he is breathing comfortably this morning and has not noticed any wheezing today. Review of Systems Review of Systems: All systems reviewed & are unremarkable except as noted in Subjective Physical Exam Physical Exam: General: A&Ox3. NAD. Cooperative. HEENT: Atraumatic, normocephalic. Pupils equal and reactive to light. Vision and hearing grossly intact. Pulm: Scattered expiratory wheezes on forced expiration, diminished without crackles/rales. Symmetrical chest rise. No increase work of breathing. No respiratory distress. Cardiac: RRR, -mrg. Radial pulses intact and symmetrical. Abdominal: Nontender, nondistended, soft. BS present. Extremities: Dry, no edema appreciated. Feet with wound dressing in place, C/D/I. PT pulse intact bilaterally. Results & Data Results & Data ([facility]) Vital Signs (Past 12 Hours) Vital Signs Temp Pulse Pulse Pulse Resp BP BP 08/11/21 10:38 36.7 C 84 93 H 22 167/77 H 08/11/21 10:37 91 H 08/11/21 08:20 93 H 13 08/11/21 08:10 92 H 12 08/11/21 08:00 92 H 16 08/11/21 07:50 90 14 08/11/21 07:40 87 16 08/11/21 07:30 85 16 146/72 H 08/11/21 07:20 85 14 08/11/21 07:10 86 14 08/11/21 07:00 87 13 08/11/21 06:50 87 15 08/11/21 06:40 89 14 08/11/21 06:30 90 16 08/11/21 06:20 89 14 08/11/21 06:10 86 20 08/11/21 06:00 86 19 133/61 08/11/21 05:50 76 16 154/73 H 08/11/21 05:40 88 14 08/11/21 05:30 86 16 08/11/21 05:20 85 18 08/11/21 05:10 78 18 08/11/21 05:00 81 18 08/11/21 04:57 81 17 08/11/21 04:50 85 22 08/11/21 04:40 87 19 08/11/21 04:30 81 17 134/74 08/11/21 04:20 82 14 08/11/21 04:10 86 26 H 08/11/21 04:04 84 08/11/21 04:00 86 26 H 08/11/21 03:50 92 H 17 08/11/21 03:40 94 H 29 H 08/11/21 03:34 105 H 31 H 08/11/21 03:29 36.8 C 105 H 26 H 173/96 H Pulse Ox 08/11/21 10:38 97 08/11/21 10:37 08/11/21 08:20 96 08/11/21 08:10 97 08/11/21 08:00 99 08/11/21 07:50 97 08/11/21 07:40 97 08/11/21 07:30 97 08/11/21 07:20 95 08/11/21 07:10 95 08/11/21 07:00 96 08/11/21 06:50 96 08/11/21 06:40 95 08/11/21 06:30 95 08/11/21 06:20 95 08/11/21 06:10 94 08/11/21 06:00 94 08/11/21 05:50 97 08/11/21 05:40 97 08/11/21 05:30 97 08/11/21 05:20 97 08/11/21 05:10 97 08/11/21 05:00 97 08/11/21 04:57 97 08/11/21 04:50 97 08/11/21 04:40 98 08/11/21 04:30 98 08/11/21 04:20 99 08/11/21 04:10 97 08/11/21 04:04 94 08/11/21 04:00 98 08/11/21 03:50 96 08/11/21 03:40 97 08/11/21 03:34 95 08/11/21 03:29 95 PG Care Time/CCT Total # of Minutes Spent Total Time Spent with Patient: Total time spent is greater than 50% in coordination of care (as documented) at patient's floor/unit and/or counseling patient: Coding Level of Care Code 99272 Subseq Hosp Care Lvl 3 Diagnoses Acute on chronic respiratory failure with hypoxia J96.21 Acute exacerbation of chronic obstructive pulmonary disease J44.1 Hypoxia R09.02 Acute hyperkalemia E87.5 CAD (coronary artery disease) I25.10 Pressure ulcer of both feet, stage 2 L89.892 CHF (congestive heart failure) I50.9 Heart failure chronicity: acute Heart failure type: unspecified Severe protein-calorie malnutrition E43 Chronic kidney disease (CKD), stage III (moderate) N18.30 Opioid dependence F11.20 GERD (gastroesophageal reflux disease) K21.9 Hyperlipidemia LDL goal <70 E78.5 Hypertension I10 (1) CHF (congestive heart failure) Heart failure chronicity: acute Heart failure type: unspecified Qualified Code(s): I50.9 - Heart failure, unspecified
[2021-08-11] MEDS: methylPREDNISolone 40 MG in SYRINGE 0 ML IV SCH ×2 (12:50→21:14)
[2021-08-11] MEDS ORDERED: BUMETANIDE 1 MG TAB PO SCH (13:00)
[2021-08-11 13:18] LABS: BUN Creatinine Ratio 23.4 (10-20); Calcium 8.6 mg/dl (8.5-10.1); Creatinine Clr Calc Pharmacy 17.3 ml/min; Est GFR (African American) 24.9 ml/min; Est GFR (Non-African American) 21.4 ml/min; Potassium 6.4 mmol/L (3.5-5.1)
[2021-08-11] MEDS ORDERED: SODIUM CHLORIDE 0.9% 1000ML 1,000 ML IV ONE (13:45)
--- NOTE | 2021-08-11 13:47 | Electrocardiogram Report ---
Test Reason : Blood Pressure : / mmHG Vent. Rate : 103 BPM Atrial Rate : 103 BPM P-R Int : 130 ms QRS Dur : 084 ms QT Int : 344 ms P-R-T Axes : 058 061 074 degrees QTc Int : 450 ms Sinus tachycardia Possible Left atrial enlargement Borderline ECG When compared with ECG of 25-JUL-2021 17:37, Nonspecific T wave abnormality no longer evident in Anterior leads Confirmed by Antonio Berrios ([id number]) on 08/11/2021 1:46:45 PM Referred By: REFERRED SELF Confirmed By:Antonio Berrios
[2021-08-11] MEDS ORDERED: FUROSEMIDE INJ 20 MG/2 ML VIAL IV ONE ×2 (13:53→15:33)
[2021-08-11] MEDS ORDERED: LACTULOSE SYRUP 20 GM/30 ML UDC PO SCH (14:00)
[2021-08-11] MEDS ORDERED: DEXTROSE 50% 50 ML SYRINGE IV ONE (14:14)
[2021-08-11] MEDS ORDERED: INSULIN HUMAN REGULAR PER UNIT 10 UNITS in SYRINGE 9.9 ML IV ONE ×3 (14:15→23:45)
[2021-08-11] MEDS ORDERED: CALCIUM GLUCONATE 10% 1,000 MG in SODIUM CHLORIDE 0.9% 50 ML IV ONE ×3 (14:30→23:45)
[2021-08-11] MEDS: PATIROMER CALCIUM SORBITEX 8.4 GM PACK PO SCH (14:47)
[2021-08-11] MEDS ORDERED: LORazepam 0.5 MG/1 ML VIAL IV STA (15:34)
[2021-08-11] MEDS: NITROGLYCERIN 2% OINTMENT 30GM TUBE EXT SCH ×2 (15:39→21:18)
--- NOTE | 2021-08-11 15:51 | XRay Report ---
XR chest 1V portable CLINICAL HISTORY: ?pulmonary edema TECHNIQUE: Single frontal radiograph of the chest was obtained. Comparison: Comparison is made to chest one view 08/11/2021 FINDINGS: No lines and tubes are seen. The cardiomediastinal silhouette is normal. Multifocal airspace opacitie s are slightly less conspicuous on today's exam. There is prominence of the pulmonary vasculature. No evidence of pleural effusion or pneumothorax. IMPRESSION: 1. Interval slight improvement in multifocal pulmonary opacities. 2. Mild pulmonary edema, comparable to prior exam. ACT 112: Negative or not required by law. Electronically signed by: Bobo Donaldson M.D. 08/11/2021 3:50 PM
[2021-08-11 17:46] LABS: Appearance Urine Clear (Clear); Bacteria Urine Automated Negative (Negative); Bilirubin Urine Negative (Negative); Blood Urine Negative (Negative); Cast Urine Automated 0 /lpf (0-5); Color Urine Yellow; Epithelial Cell Urine Auto 20-30 /lpf (0-5); Glucose Urine UA Negative (Negative); Ketones Urine Negative (Negative); Leukocyte Esterase Urine Negative (Negative); Nitrite Urine Negative (Negative); Protein Urine 3+ (Negative); Specific Gravity Urine 1.015 (1.000-1.030); Urobilinogen Urine Negative (Negative)
[2021-08-11 18:20] LABS: BUN Creatinine Ratio 23.7 (10-20); Calcium 8.5 mg/dl (8.5-10.1); Creatinine Clr Calc Pharmacy 17.8 ml/min; Est GFR (African American) 25.7 ml/min; Est GFR (Non-African American) 22.1 ml/min; Potassium 6.6 mmol/L (3.5-5.1)
[2021-08-11] MEDS ORDERED: SODIUM CHLORIDE 0.45 % 1,000 ML IV SCH (18:45)
[2021-08-11] MEDS: TAMSULOSIN HCL 0.4 MG CAP PO SCH (21:12)
[2021-08-11] MEDS: MIRTAZAPINE TAB 15 MG TAB PO SCH (21:12)
[2021-08-11 21:52] LABS: BUN Creatinine Ratio 22.5 (10-20); Calcium 8.9 mg/dl (8.5-10.1); Creatinine Clr Calc Pharmacy 16.8 ml/min; Est GFR (African American) 23.9 ml/min; Est GFR (Non-African American) 20.6 ml/min; Potassium 6.1 mmol/L (3.5-5.1)
[2021-08-11] MEDS: LACTULOSE SYRUP 20 GM/30 ML UDC PO SCH (23:30)
[2021-08-12 01:38] LABS: BUN Creatinine Ratio 21.6 (10-20); Creatinine Clr Calc Pharmacy 15.9 ml/min; Est GFR (African American) 22.3 ml/min; Est GFR (Non-African American) 19.3 ml/min
[2021-08-12] MEDS ORDERED: INSULIN HUMAN REGULAR PER UNIT 10 UNITS in SYRINGE 9.9 ML IV STA ×2 (02:09→23:15)
[2021-08-12] MEDS ORDERED: DEXTROSE 50% 50 ML SYRINGE IV ONE (02:09)
[2021-08-12] MEDS ORDERED: ALBUTEROL 0.5% NEB SOLN 2.5 MG/0.5 ML VIAL NEB STA ×2 (02:09→23:15)
[2021-08-12] MEDS ORDERED: PATIROMER CALCIUM SORBITEX 8.4 GM PACK PO STA (02:09)
[2021-08-12] MEDS ORDERED: CALCIUM GLUCONATE 10% 1,000 MG in SODIUM CHLORIDE 0.9% 50 ML IV ONE ×3 (02:09→23:15)
[2021-08-12] MEDS ORDERED: FUROSEMIDE 40 MG/4 ML VIAL IV ONE ×2 (03:00→03:16)
[2021-08-12] MEDS: NITROGLYCERIN 2% OINTMENT 30GM TUBE EXT SCH (03:07)
--- NOTE | 2021-08-12 03:21 | Communication Note ---
Date of Service: August 12, 2021 Notified by nursing that patient was having increased work of breathing, hypoxic and requiring increased oxygen titration up to 10Loxymask. Respiratory at bedside administering 20mg albuterol neb for hyperkalemia treatment. Switched from oxymask to bipap after treatment completed. Auscultation of lungs showed coarse breath sounds bilaterally in mid to lower lobes. stat CXR ordered -- showed white out of nearly entire right lung and lower left lung. lasix 40 mg IV ordered. Fluids stopped. Patient attempted to drink patiromer mix after oxymask and before bipap but was having difficulty drinking it through the straw, unable to get full dose. Tolerating bipap well 16/8 at this time. will continue to monitor respiratory status and serial BMPs.
[2021-08-12] MEDS: methylPREDNISolone 40 MG in SYRINGE 0 ML IV SCH ×3 (04:24→20:15)
[2021-08-12 05:34] LABS: Basophils # (auto) 0.01 K/uL (0-0.2); Basophils % (auto) 0.1 %; Hematocrit (blood only) 25.5 % (42-52); Hemoglobin 7.9 g/dL (14.0-18.0); Immature Granulocytes # (auto) 0.02 K/uL (0.00-0.02); Immature Granulocytes % (auto) 0.2 %; Lymphocytes # (auto) 0.53 K/uL (1.2-3.4); Lymphocytes % (auto) 4.9 %; Mean Corpuscular Hemoglobin 32.9 pg (25-34); Mean Corpuscular Volume 106.3 fL (80-100); Mean Platelet Volume 9.4 fL (7.4-10.4); Monocytes # (auto) 0.72 K/uL (0.11-0.59); Monocytes % (auto) 6.6 %; Neutrophils # (auto) 9.64 K/uL (1.4-6.5); Neutrophils % (auto) 88.2 %; Platelet Count 394 K/uL (130-400); RDW Coefficient of Variation 16.8 % (11.5-14.5); RDW Standard Deviation 66.2 fL (36.4-46.3); White Blood Count 10.92 K/uL (4.8-10.8)
[2021-08-12 05:55] LABS: RBC Morphology Unremarkable
[2021-08-12 06:04] LABS: Albumin Level 2.5 gm/dl (3.4-5.0); Calcium 8.8 mg/dl (8.5-10.1); Est GFR (African American) 22.6 ml/min; Est GFR (Non-African American) 19.5 ml/min; Magnesium 1.5 mg/dl (1.8-2.4)
[2021-08-12 06:07] LABS: Albumin Globulin Ratio 0.6 (0.9-2); Bilirubin,Total 0.4 mg/dl (0.2-1); Globulin 4.1 gm/dl (2.5-4.0); Total Protein 6.6 gm/dl (6.4-8.2)
[2021-08-12] MEDS: ALBUT/IPRATROP 3MG/0.5MG NEB 3 ML VIAL NEB SCH ×4 (07:13→19:19)
--- NOTE | 2021-08-12 08:07 | Hospitalist Progress Note ---
Date of Service August 12, 2021 Assessment & Plan (1) Acute hyperkalemia: Plan: -Potassium was 6.2 upon admission. ? Medication effect versus volume depletion vs breakdown -08/11: He received from the ED Lasix 20 mg IV, D50 followed by 10 of regular insulin IV, calcium gluconate 1 g IV, and NSS 250 mls.Repeat BMP with up trended potassium 08/11-day time: started on lactulose, given additional insulin/D50, and NSS bolus with insulin. While he has a history of CHF and elevated BNP he is clinically hypovolemic and does not show evidence of congestion on CXR. Additional fluid bolus with low-dose Lasix given. Veltassa given, 1 dose today, 2 dose ordered. Additional 1 g calcium gluconate given Following NSS bolus patient with a acute episode of shortness of breath and difficulty breathing initially concerning for flash pulmonary edema, chest x-ray obtained at time of episode appeared slightly improved from prior without overt edema, patient rapidly improved back to baseline with Nitropaste/BiPAP/Lasix, although had minimal urine output.? Whether this was pulmonary edema from fluid bolus versus tachycardia/panic induced following his nebulizer. Given the patient had minimal urine output, continue to appear clinically dry, and had a relatively clear x-ray is placed on half-normal maintenance fluids at a rate of 100 cc.EKG was obtained and showed slight repolarization changes, patient was transferred to PCU. Signout was given to evening resident. Overnight patient with up trended potassium,Patient was about to get an additional fluid bolus, but had worsened breathing and repeat x-ray showed interval increase in pulmonary congestion/edema this was deferred. Patient clinically improved with BiPAP, but with persistent hyperkalemia. Respiratory administered 20 mg albuterol patient was given additional dose of Veltassa. Patient was also given calcium, ordered Lasix, and BMPs were trended. Nephrology is consulted CK negative, foot maxwell without signs of tissue necrosis, no evidence of rhabdo/cellular breakdown contributing Continue Veltassa, monitor I's and O's, if remains greater than 6 add every 8 hour monitoring give Bumex 1 mg IV x1 dose per nephrology. Appreciate recommendations. (2) Acute on chronic respiratory failure with hypoxia: Plan: - At last admission from 07/25-11/3 was noted to be in CHF exacerbation. - Current sx consistent with COPD exacerbation - BNP 9215 See above regarding chest x-ray and concern for pulmonary edema (3) Acute exacerbation of chronic obstructive pulmonary disease: Plan: -Received methylprednisolone 125 mg IV in the ED -Methylprednisolone 40 mg IV every 8 hours switch to every 12 hours 08/13 - Azithromycin 500 mg IV x1, 250mg x 4 days -Guaifenesin extended release 1200 mg p.o. twice daily -Duonebs every 4 hours while awake and every 2 hours when necessary. (4) Hypoxia: Plan: -Nasal cannula oxygen, titrate to keep pulse ox 92 to 94% (5) CAD (coronary artery disease): Plan: - Hold amlodipine and losartan - Continue aspirin, metoprolol succinate Bumex held while using IV Lasix (6) Pressure ulcer of both feet, stage 2: Plan: Wound care consult (7) CHF (congestive heart failure): Plan: See above (8) Severe protein-calorie malnutrition: Plan: Continue home supplementation: Vitamin B12, ferrous sulfate, folic acid and thiamine (9) Chronic kidney disease (CKD), stage III (moderate): Plan: Creatinine 2.63 upon admission, with range 2.28-2.88 Uptrending to 2.92 this morning, received Lasix as noted above with minimal urine output See nephro recommendations above (10) Opioid dependence: Plan: - On [place] PRN x10 years reportedly for arthritis, will continue - Continue primidone for essential tremor (11) GERD (gastroesophageal reflux disease): Plan: Continue omeprazole/pantoprazole (12) Hyperlipidemia LDL goal <70: Plan: Continue atorvastatin (13) Hypertension: Plan: See above Admission and Anticipated Discharge Date Admission Date: August 11, 2021 Subjective Homelessness state of the night this morning. He reports he had a rough night. He reports he use the BiPAP again and had difficulty breathing, but that this improved his breathing and he currently feels "not back to normal, better ". He is breathing on nasal cannula and eating breakfast, reports he tolerates the BiPAP well. He has not had any fever/chills/sweats. Reports he has had no increase or change in pain in his feet. No chest pain/palpitations/syncope/presyncope. He reports he feels well on nasal cannula oxygen, BiPAP, but has the episodes of extreme shortness of breath overnight as otherwise noted. Denies difficulty breathing at time of morning assessment. He reports the tops of his feet hurt a little bit, similar to prior without exacerbation. Denies nausea/vomiting/diarrhea/constipation. Review of Systems Review of Systems: Constitutional: Denies fever, chills, malaise Eyes: Denies vision change ENT: Denies ear pain, sore throat, sinus pain Cardiovascular: Denies Chest pain, chest pressure, palpitations, extremity sw elling Respiratory: As noted in HPI Gastrointestinal: Denies abdominal pain, nausea, vomiting, constipation, diarrhea Genitourinary: Denies dysuria, urinary frequency. Endorses some urinary output without pain, denies oliguria/anuria Musculoskeletal: Denies acute focal weakness, muscle aches/pain, joint aches/pain Integumentary:Denies acute rash, lesions, bruising Neurological: Denies headache, numbness, tingling, focal weakness Physical Exam Physical Exam: General: A&Ox3. NAD. Cooperative. HEENT: Atraumatic, normocephalic. Pupils equal and reactive to light. Vision and hearing grossly intact. Pulm: Moderate air movement with some bibasilar crackles, but without rales this morning. Coarse in the upper lobes. Symmetrical chest rise. No increase work of breathing. No respiratory distress. Cardiac: RRR, -mrg. Radial pulses intact and symmetrical. Abdominal: Nontender, nondistended, soft. BS present. Extremities: Dry, no edema appreciated. Feet with wound dressing in place, C/D/I. Dressing lifted, underlying healing burn without signs of tissue necrosis. Pulse intact bilaterally. Results & Data Results & Data ([facility]) Vital Signs (Past 12 Hours) Vital Signs Temp Pulse Pulse Resp BP Pulse Ox 08/12/21 07:40 36.7 C 88 17 149/69 H 92 08/12/21 07:13 83 83 16 99 08/12/21 03:14 36.5 C 98 H 22 180/95 H 99 08/12/21 03:08 110 H 117 H 30 H 100 08/11/21 22:57 36.7 C 85 16 155/83 H 93 08/11/21 20:35 36.7 C 92 H 22 165/88 H 98 PG Care Time/CCT Total # of Minutes Spent Total Time Spent with Patient: Total time spent is greater than 50% in coordination of care (as documented) at patient's floor/unit and/or counseling patient: Coding Level of Care Code 56741 Subseq Hosp Care Lvl 3 Diagnoses Acute on chronic respiratory failure with hypoxia J96.21 Acute exacerbation of chronic obstructive pulmonary disease J44.1 Hypoxia R09.02 Acute hyperkalemia E87.5 CAD (coronary artery disease) I25.10 Pressure ulcer of both feet, stage 2 L89.892 CHF (congestive heart failure) I50.9 Heart failure chronicity: acute Heart failure type: unspecified Severe protein-calorie malnutrition E43 Chronic kidney disease (CKD), stage III (moderate) N18.30 Opioid dependence F11.20 GERD (gastroesophageal reflux disease) K21.9 Hyperlipidemia LDL goal <70 E78.5 Hypertension I10 (1) CHF (congestive heart failure) Heart failure chronicity: acute Heart failure type: unspecified Qualified Code(s): I50.9 - Heart failure, unspecified
[2021-08-12] MEDS: HYDROCODONE/ACETAMOPHEN 5/325MG TAB PO PRN ×3 (08:09→20:13)
[2021-08-12] MEDS: FOLIC ACID 400 MCG TAB PO SCH (08:10)
[2021-08-12] MEDS: ASPIRIN 81 MG ECTAB PO SCH (08:10)
[2021-08-12] MEDS: CYANOCOBALAMIN 500 MCG TABLET (VITAMIN B-12) PO SCH (08:10)
[2021-08-12] MEDS: PANTOprazole 40 MG TAB PO SCH (08:10)
[2021-08-12] MEDS: guaiFENesin 600 MG TABCR PO SCH ×2 (08:11→20:16)
[2021-08-12] MEDS: METOPROLOL SUCC 50MG EXT REL TAB PO SCH (08:11)
[2021-08-12] MEDS: THIAMINE HCL 100 MG TAB PO SCH (08:11)
[2021-08-12] MEDS: ATORVASTATIN 40 MG TAB PO SCH (08:11)
[2021-08-12] MEDS: PRIMIDONE 50 MG TAB PO SCH ×2 (08:11→20:16)
[2021-08-12] MEDS: MULTIVITAMIN TAB PO SCH (08:12)
[2021-08-12] MEDS: UMECLIDINIUM BROMIDE 62.5MCG/BLISTER 7 PUFFS/INHALER INH SCH (08:12)
[2021-08-12] MEDS: HEPARIN SOD 5,000 UNIT/0.5 ML VIAL SQ SCH ×2 (08:12→20:15)
[2021-08-12] MEDS: LACTULOSE SYRUP 20 GM/30 ML UDC PO SCH ×4 (08:12→20:19)
[2021-08-12] MEDS: VENLAFAXINE HCL XR 37.5 MG CAPXR PO SCH (08:12)
--- NOTE | 2021-08-12 08:12 | XRay Report ---
XR chest 1V portable CLINICAL HISTORY: respiratory distress TECHNIQUE: Single frontal radiograph of the chest was obtained. Comparison: Comparison is made to chest one view 08/11/2021 FINDINGS: No lines and tubes are seen. Cardiomegaly is noted. Prominence and cephalization of the vasculature i s seen. Interval increase in prominence of multifocal airspace opacities. No evidence of pleural effu clay or pneumothorax. IMPRESSION: 1. Multifocal airspace opacities may represent atelectasis, pneumonia, and/or aspiration. 2. Mild pulmonary edema. 3. Stable cardiomegaly. ACT 112: Negative or not required by law. Electronically signed by: Bobo Donaldson M.D. 08/12/2021 8:11 AM
[2021-08-12] MEDS: MAGNESIUM OXIDE 400 MG TAB PO SCH ×2 (08:56→20:16)
[2021-08-12] MEDS: AZITHROMYCIN 250 MG TAB PO SCH (08:56)
--- NOTE | 2021-08-12 09:05 | XRay Report ---
XR chest 1V portable CLINICAL HISTORY: pulm edema TECHNIQUE: Single frontal radiograph of the chest was obtained. Comparison: Comparison is made to chest one view 08/12/2021 at 0238 hours FINDINGS: No lines and tubes are seen. Calcified aortic knob is seen. Stable cardiomegaly. Interval improvement in the recent noted pulmonary edema. Bilateral airspace opacities are again noted predominantly in t he lower lungs. No evidence of pleural effusion or pneumothorax. IMPRESSION: 1. Interval improvement in pulmonary edema, minimal residual edema is seen. 2. Bilateral lower lung opacities ACT 112: Negative or not required by law. Electronically signed by: Bobo Donaldson M.D. 08/12/2021 9:04 AM
[2021-08-12 10:01] LABS: BUN Creatinine Ratio 21.2 (10-20); Calcium 9.3 mg/dl (8.5-10.1); Creatinine Clr Calc Pharmacy 17.5 ml/min; Est GFR (African American) 23.4 ml/min; Est GFR (Non-African American) 20.2 ml/min; Potassium 6.1 mmol/L (3.5-5.1)
--- NOTE | 2021-08-12 10:14 | Nephrology Consultation ---
Date of Consultation August 12, 2021 Assessment & Plan (1) Acute hyperkalemia: (2) Chronic kidney disease, stage 4 (severe): (3) Hypertension: (4) Anemia: (5) Severe protein-calorie malnutrition: 81 year old male with stage IV CKD baseline creatinine 2.0-2.3 although he had several episodes of KEAGAN before and after recent hospitalization creatinine staying somewhere 2.5 2.6. 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 Renal imaging otherwise unremarkable. Admitted with generalized weakness, shortness of breath and COPD exacerbation. found to have KEAGAN and persistent hyperkalemia, cr 2.9, K 6.6. Low-dose losartan has been on hold. Received multiple doses of insulin, D50 and 1 dose of Veltassa potassium slightly improved and staying around 6.0-6.2. Although clinically does not look volume overloaded however BNP significantly elevated, UO low and chest x- ray showed mild pulmonary vascular congestion and bilateral pleural effusion. Total net positive more than 2 L since admission. -- already scheduled for another dose of Veltassa later this morning, change diet to low-potassium diet. ARB on hold -- monitor intake and output. -- continue to monitor Potassium q.8 hours , if remains >6, suggest Bumex 1 mg IV x 1 dose Will follow Thank you for the consult. History of Present Illness Reason for Consultation: Mr. Usman Hilton is a 81 year-old male with PMH significant for stage IV CKD, hypertension, advanced COPD admitted to the hospital yesterday with generalized weakness, respiratory distress COPD exacerbation. Nephrology consult was requested to manage AK, hyperkalemia. EMR records were reviewed in detail during patient's visit. Floyd presented to ER yesterday with worsening shortness of breath, generalized weakness and admitted with COPD exacerbation. BNP was significantly elevated to >9000. He is currently on Zithromax and IV methylprednisone. He had pre similar episode in late July and he presented with shortness of breath and generalized weakness and at that time he was admitted with CHF with preserved systolic function. Admission chest x-ray showed mild pulmonary edema and b/l pleural effusion. Blood pressure has been running high. Was given 1 dose of Lasix 20 mg IV however early this morning he had another episode of acute onset of shortness of breath in given another dose of IV diuretics. Currently his respiratory status improved, on 2 L of oxygen via nasal cannula. Has stage IV CKD, baseline creatinine 2.0-2.3, had several episodes of KEAGAN before and after recent hospitalization creatinine staying somewhere 2.4 to 2.6. , he has not been following with Nephrology as an outpatient. Imaging showed no postrenal obstruction. Has high grade proteinuria. Current active smoker. History of atherosclerotic disease and AAA. Blood pressure generally poorly controlled, renal artery Doppler was negative for hemodynamically significant renal artery stenosis, no postrenal obstruction. At baseline his significantly debilitated and weak and has protein calorie malnutrition. Has been living alone since his in March of this year. During last visit he was seen by palliative care to discuss goals of care and he is a full code. On admission Cr 2.9, potassium was 6.6 , slightly improved but has been staying around 6-6.1 despite getting multiple doses of insulin, dextrose 50 and Veltassa. At home he was on losartan 25 mg daily and Bumex 1 mg daily. Denied any recent antibiotic or heavy NSAID use. He reports improvement in respiratory status, no shortness of breath, chest pain or cough. Urine output has been relatively low and overall his more than 2 L net positive. . Attending Physician: Klaus Powers MD Allergies Allergy/AdvReac Type Severity Reaction Status Date / Time cefuroxime Allergy Intermediate rash Verified 08/10/21 14:03 lisinopril Allergy Mild itching Verified 08/10/21 14:03 Home Medications Medication Instructions Recorded Confirmed Type ferrous sulfate 325 mg (65 mg 325 mg PO QAM #30 tab 03/21/19 08/10/21 Rx iron) tablet,delayed release thiamine HCl (vitamin B1) 100 mg 100 mg PO QAM #30 tab 03/21/19 08/10/21 Rx tablet (Vitamin B-1) aspirin 81 mg tablet,delayed 81 mg PO QAM 05/06/19 08/10/21 History release cyanocobalamin (vitamin B-12) 1,000 mcg PO QAM 05/06/19 08/10/21 History 1,000 mcg tablet (Vitamin B-12) nitroglycerin 0.4 mg sublingual 0.4 mg SUBLINGUAL DIRECTED PRN 05/06/19 08/10/21 History tablet primidone 50 mg tablet 50 mg PO BID #180 tab 10/12/20 08/10/21 Rx omeprazole 40 mg capsule,delayed 40 mg PO DAILY #90 cap 12/30/20 08/10/21 Rx release amlodipine 5 mg tablet 5 mg PO DAILY #90 tab 05/26/21 08/10/21 Rx atorvastatin 40 mg tablet 40 mg PO DAILY #90 tab 05/26/21 08/10/21 Rx metoprolol succinate 100 mg 100 mg PO DAILY #90 tab 05/26/21 08/10/21 Rx tablet,extended release 24 hr (Toprol XL) mirtazapine 30 mg tablet 30 mg PO QPM #90 tab 05/26/21 08/10/21 Rx tamsulosin 0.4 mg capsule 0.4 mg PO QPM #90 cap 05/26/21 08/10/21 Rx multivitamin (Daily Multi-Vitamin) 1 tab PO DAILY 05/28/21 08/10/21 History folic acid 800 mcg tablet 800 mcg PO QAM #30 tab 07/22/21 08/10/21 Rx lorazepam 0.5 mg tablet 0.5 mg PO BID PRN #60 tab 07/22/21 08/10/21 Rx hydrocodone 10 mg-acetaminophen 2 tab PO Q6H PRN #240 tab MDD 8 07/30/21 08/10/21 Rx 325 mg tablet tabs fluticasone furoate 200 1 ea INHALATION DAILY #28 ea 08/04/21 08/10/21 Rx mcg-vilanterol 25 mcg/dose inhalation powder (Breo Ellipta) umeclidinium 62.5 mcg/actuation 1 inh INHALATION DAILY #30 ea 08/04/21 08/10/21 Rx blister powder for inhalation (Incruse Ellipta) bumetanide 1 mg tablet 1 mg PO QAM #90 tab 08/10/21 08/10/21 Rx hydrocodone 10 mg-acetaminophen 1 tab PO Q6H PRN #120 tab 08/10/21 08/10/21 Rx 325 mg tablet losartan 25 mg tablet 25 mg PO DAILY #90 tab 08/10/21 08/10/21 Rx venlafaxine 37.5 mg 37.5 mg PO QAM 30 Days #90 cap 08/10/21 08/10/21 Rx capsule,extended release 24 hr Patient History Medical History (Updated 08/12/21 @ 10:13 by Nayana Garcia MD) AAA (abdominal aortic aneurysm) Acute hypoxemic respiratory failure Anemia of chronic disease Anxiety Bilateral pleural effusion CAD (coronary artery disease) PTCA with stent of RCA 1994 Chronic kidney disease (CKD), stage III (moderate) Chronic kidney disease, stage 4 (severe) Chronic pain Chronic renal insufficiency 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 exacerbation Essential tremor GERD (gastroesophageal reflux disease) Hyperlipidemia LDL goal <70 Hypertension Lower urinary tract symptoms (LUTS) Multiple rib fractures Opioid dependence treated with opiates for chronic low back pain for 10+ years Septal myocardial infarction Tobacco abuse counseling Vitamin B12 deficiency Surgical History H/O heart artery stent (~1994) Family History Denies family history of Ovarian cancer Prostate cancer Myocardial infarction Breast cancer Colorectal cancer Social History Smoking Status: Current every day smoker Tobacco Type: Cigarettes Cigarettes Per Day: 10; Second Hand Exposure: No; Hx Alcohol Use: No Hx Substance Use: No Preferred Language: Uzbek Communication Ability: Effective Visual Impairment: No Limitations Hearing Ability: Normal Silicator Required: No Beliefs That Will Affect Care: None marital status: Current Living Situation: Alone Current Living Situation Comment: Alone at home in apartment after of in March current occupational status: 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 many Children do You have: 1 Feels Safe at Home: Yes Childhood Exposure to Second-Hand Smoke: Yes Dental Care, Regularly: No Physical Activity Frequency: Does not Exercise Seatbelt Use: always Sunscreen Use: No (doesn't really go outside ) Assistive Devices: Oxygen - Continuous and Walker Review of Systems Constitutional: as per Subjective / HPI; no fever, no chills, no weakness and no weight loss Eyes: no problem reported Respiratory: no cough, no dyspnea and no hemoptysis Cardiovascular: no chest pain, no syncope and no edema Gastrointestinal: no abdominal pain, no nausea and no vomiting Neurologic: no generalized weakness, no tingling and no numbness Psychiatric: as per Subjective / HPI; no behavioral changes Physical Exam Constitutional: WD/WN, vitals as above + ill appearing and + frail appearing; no acute distress Eyes: + anicteric sclerae ENMT: Ears: no hearing impairment Neck: normal visual inspection Thyroid: no thyromegaly Respiratory: normal respiratory effort; no respiratory distress and no cough Auscultation: + diminished lung sounds Cardiovascular: Rate/Rhythm: regular rate and regular rhythm Heart Sounds: normal S1 and normal S2 Extremities: no edema Gastrointestinal (Abdomen): Inspection/Auscultation: abdomen normal to inspection and normal bowel sounds Percussion/Palpation: abdomen soft; abdomen nontender Musculoskeletal: Extremities: extremities normal to inspection Skin: + turgor decreased; no rashes Neurologic: no focal motor deficits and not confused Psychiatric: Orientation: alert and oriented x 3 Affect: euthymic affect Results & Data ([facility]) Vital Signs (Past 12 Hours) Vital Signs Temp Pulse Pulse Resp BP Pulse Ox 08/12/21 07:40 36.7 C 88 17 149/69 H 92 08/12/21 07:13 83 83 16 99 08/12/21 03:14 36.5 C 98 H 22 180/95 H 99 08/12/21 03:08 110 H 117 H 30 H 100 08/11/21 22:57 36.7 C 85 16 155/83 H 93 PG Care Time/CCT Total # of Minutes Spent Total Time Spent with Patient: Total time spent is greater than 50% in coordination of care (as documented) at patient's floor/unit and/or counseling patient: Coding Level of Care Code 90983 Initial Inpt Care Lvl 3 Diagnoses Acute hyperkalemia E87.5 Chronic kidney disease, stage 4 (severe) N18.4 Hypertension I10 Anemia D64.9 Severe protein-calorie malnutrition E43
[2021-08-12] MEDS: PATIROMER CALCIUM SORBITEX 8.4 GM PACK PO SCH (12:36)
[2021-08-12 13:47] LABS: BUN Creatinine Ratio 21.3 (10-20); Calcium 9.1 mg/dl (8.5-10.1); Creatinine Clr Calc Pharmacy 17.4 ml/min; Est GFR (African American) 23.1 ml/min; Est GFR (Non-African American) 19.9 ml/min; Potassium 5.9 mmol/L (3.5-5.1)
[2021-08-12] MEDS: LORazepam 0.5 MG/1 ML VIAL IV PRN ×2 (14:56→21:00)
[2021-08-12] MEDS ORDERED: DEXTROSE 50% 50 ML SYRINGE IV STA ×2 (18:10→23:15)
[2021-08-12] MEDS ORDERED: INSULIN HUMAN REGULAR PER UNIT 10 UNITS in SYRINGE 9.9 ML IV ONE (18:45)
[2021-08-12 19:27] LABS: BUN Creatinine Ratio 21.3 (10-20); Calcium 8.8 mg/dl (8.5-10.1); Creatinine Clr Calc Pharmacy 16.9 ml/min; Est GFR (African American) 22.3 ml/min; Est GFR (Non-African American) 19.3 ml/min; Potassium 6.4 mmol/L (3.5-5.1)
--- NOTE | 2021-08-12 19:44 | Electrocardiogram Report ---
Test Reason : Blood Pressure : / mmHG Vent. Rate : 085 BPM Atrial Rate : 085 BPM P-R Int : 154 ms QRS Dur : 086 ms QT Int : 392 ms P-R-T Axes : 053 053 060 degrees QTc Int : 466 ms Normal sinus rhythm Normal ECG When compared with ECG of 11-AUG-2021 03:36, No significant change was found Confirmed by Wes Lai ([id number]) on 08/12/2021 7:44:16 PM Referred By: REFERRED SELF Confirmed By:Wes Lai
[2021-08-12] MEDS ORDERED: BUMETANIDE 1 MG in SYRINGE 0 ML IV ONE ×2 (20:00→23:15)
[2021-08-12] MEDS: TAMSULOSIN HCL 0.4 MG CAP PO SCH (20:15)
[2021-08-12] MEDS: MIRTAZAPINE TAB 15 MG TAB PO SCH (20:16)
--- NOTE | 2021-08-12 23:07 | Electrocardiogram Report ---
Test Reason : Blood Pressure : / mmHG Vent. Rate : 111 BPM Atrial Rate : 111 BPM P-R Int : 130 ms QRS Dur : 088 ms QT Int : 330 ms P-R-T Axes : 063 059 023 degrees QTc Int : 448 ms Poor data quality, interpretation may be adversely affected Sinus tachycardia Otherwise normal ECG When compared with ECG of 11-AUG-2021 19:47, No significant change was found Confirmed by Wes Lai ([id number]) on 08/12/2021 11:07:11 PM Referred By: REFERRED SELF Confirmed By:Wes Lai
[2021-08-12 23:13] LABS: BUN Creatinine Ratio 21.8 (10-20); Creatinine Clr Calc Pharmacy 16.2 ml/min; Est GFR (African American) 21.3 ml/min; Est GFR (Non-African American) 18.4 ml/min; Potassium 6.6 mmol/L (3.5-5.1)
[2021-08-12] MEDS ORDERED: LACTATED RINGER'S 1,000 ML IV SCH (23:15)
[2021-08-13 02:47] LABS: BUN Creatinine Ratio 22.6 (10-20); Calcium 9.5 mg/dl (8.5-10.1); Creatinine Clr Calc Pharmacy 16.8 ml/min; Est GFR (African American) 22.2 ml/min; Est GFR (Non-African American) 19.1 ml/min; Potassium 5.7 mmol/L (3.5-5.1)
[2021-08-13] MEDS: methylPREDNISolone 40 MG in SYRINGE 0 ML IV SCH (04:30)
[2021-08-13] MEDS: HYDROCODONE/ACETAMOPHEN 5/325MG TAB PO PRN ×4 (05:12→23:52)
[2021-08-13 06:33] LABS: Basophils # (auto) 0.02 K/uL (0-0.2); Basophils % (auto) 0.2 %; Eosinophils # (auto) 0.01 K/uL (0-0.5); Eosinophils % (auto) 0.1 %; Hematocrit (blood only) 25.5 % (42-52); Hemoglobin 8.1 g/dL (14.0-18.0); Immature Granulocytes # (auto) 0.01 K/uL (0.00-0.02); Immature Granulocytes % (auto) 0.1 %; Lymphocytes % (auto) 13.1 %; Mean Corpuscular Hemoglobin 33.8 pg (25-34); Mean Corpuscular Hgb Conc 31.8 g/dL (32-36); Mean Corpuscular Volume 106.3 fL (80-100); Mean Platelet Volume 9.7 fL (7.4-10.4); Monocytes # (auto) 0.52 K/uL (0.11-0.59); Monocytes % (auto) 5.2 %; Neutrophils # (auto) 8.08 K/uL (1.4-6.5); Neutrophils % (auto) 81.3 %; Platelet Count 379 K/uL (130-400); RDW Coefficient of Variation 16.5 % (11.5-14.5); White Blood Count 9.94 K/uL (4.8-10.8)
[2021-08-13] MEDS: ALBUT/IPRATROP 3MG/0.5MG NEB 3 ML VIAL NEB SCH ×4 (07:03→19:20)
[2021-08-13 07:11] LABS: Albumin Level 2.4 gm/dl (3.4-5.0); Calcium 9.1 mg/dl (8.5-10.1); Creatinine Clr Calc Pharmacy 16.4 ml/min; Est GFR (African American) 22.4 ml/min; Est GFR (Non-African American) 19.3 ml/min; Magnesium 1.5 mg/dl (1.8-2.4); Potassium 5.4 mmol/L (3.5-5.1)
[2021-08-13 07:14] LABS: Albumin Globulin Ratio 0.6 (0.9-2); Bilirubin,Total 0.4 mg/dl (0.2-1); Globulin 3.9 gm/dl (2.5-4.0); Total Protein 6.3 gm/dl (6.4-8.2)
[2021-08-13] MEDS: MULTIVITAMIN TAB PO SCH (08:08)
[2021-08-13] MEDS: MAGNESIUM OXIDE 400 MG TAB PO SCH ×2 (08:08→20:42)
[2021-08-13] MEDS: CYANOCOBALAMIN 500 MCG TABLET (VITAMIN B-12) PO SCH (08:09)
[2021-08-13] MEDS: FOLIC ACID 400 MCG TAB PO SCH (08:09)
[2021-08-13] MEDS: guaiFENesin 600 MG TABCR PO SCH ×2 (08:09→20:43)
[2021-08-13] MEDS: PANTOprazole 40 MG TAB PO SCH (08:09)
[2021-08-13] MEDS: THIAMINE HCL 100 MG TAB PO SCH (08:09)
[2021-08-13] MEDS: VENLAFAXINE HCL XR 37.5 MG CAPXR PO SCH (08:09)
[2021-08-13] MEDS: ASPIRIN 81 MG ECTAB PO SCH (08:09)
[2021-08-13] MEDS: HEPARIN SOD 5,000 UNIT/0.5 ML VIAL SQ SCH ×2 (08:10→20:42)
[2021-08-13] MEDS: AZITHROMYCIN 250 MG TAB PO SCH (08:10)
[2021-08-13] MEDS: ATORVASTATIN 40 MG TAB PO SCH (08:10)
[2021-08-13] MEDS: LACTULOSE SYRUP 20 GM/30 ML UDC PO SCH ×3 (08:10→12:16)
[2021-08-13] MEDS: UMECLIDINIUM BROMIDE 62.5MCG/BLISTER 7 PUFFS/INHALER INH SCH (08:10)
[2021-08-13] MEDS: METOPROLOL SUCC 50MG EXT REL TAB PO SCH (08:11)
[2021-08-13] MEDS: PRIMIDONE 50 MG TAB PO SCH ×2 (08:11→20:41)
--- NOTE | 2021-08-13 10:24 | Nephrology Progress Note ---
Date of Service August 13, 2021 Assessment & Plan (1) Acute hyperkalemia: (2) Chronic kidney disease, stage 4 (severe): (3) Hypertension: (4) Anemia: (5) Severe protein-calorie malnutrition: Plan: 81 year old male with stage IV CKD baseline creatinine 2.0-2.3 and repeated episodes of KEAGAN before and after recent hospitalization creatinine staying somewhere 2.5 2.6. 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 Renal imaging otherwise unremarkable. Admitted with generalized weakness, shortness of breath and COPD exacerbation. Found to have KEAGAN and persistent hyp erkalemia, cr 2.9, K 6.6. Low-dose losartan has been on hold. Received multiple doses of insulin, D50 and Veltassa. Although clinically does not look volume overloaded however BNP significantly elevated, and chest x-ray showed mild pulmonary vascular congestion and bilateral pleural effusion. Total net positive more than 2 L since admission. Potassium slightly improved to 5.4. no significant improvement in renal function. blood pressure remains elevated. -- resume amlodipine at 5 mg p.o. daily and increase as needed. -- monitor intake and output. Consider stopping IV lactated Ringer's as blood pressure elevated, net positive. -- check iron study, PTH -- would hold discharge until further improvement in potassium and renal function. Mr. Hilton is anxious to go home. Explained need for continued monitoring of renal function, volume status and electrolyte as an inpatient. If any improvement in renal function noted, discharge can be considered after morning lab tomorrow. We discussed briefly about possible need for dialysis if renal function worsen further, he did not seem that much interested in considering long-term dialysis however did not make any definitive decision. Will follow Admission and Anticipated Discharge Date Admission Date: August 11, 2021 Subjective Floyd seen in his room this morning. Overall he feels well, appetite decent. denies any symptoms. Blood pressure remained elevated, decent urine output with net even But more than 2 L positive since admission. Potassium improved to 5.4 however kidney function staying stable without any further improvement. Review of Systems Review of Systems: detailed review of system months otherwise unremarkable except mentioned above. Physical Exam Constitutional: WD/WN, vitals as above + ill appearing, + cachectic and + frail appearing; no acute distress Eyes: + anicteric sclerae ENMT: Ears: no hearing impairment and no external ear abnormality Neck: normal visual inspection Respiratory: normal respiratory effort; no respiratory distress Auscultation: + crackles Cardiovascular: Rate/Rhythm: regular rate and regular rhythm Heart Sounds: normal S1 and normal S2 Extremities: no edema Skin: normal turgor; no rashes Neurologic: no focal motor deficits and not confused Psychiatric: Orientation: alert and oriented x 3 Results & Data ([facility]) Vital Signs (Past 12 Hours) Vital Signs Temp Pulse Pulse Resp BP BP Pulse Ox 08/13/21 08:49 85 08/13/21 07:03 84 16 94 08/13/21 06:58 36.6 C 89 16 165/85 H 97 08/13/21 03:54 36.4 C L 87 18 169/82 H 99 08/13/21 01:10 177/81 H 08/12/21 23:46 91 H 20 97 08/12/21 23:44 36.7 C 93 H 16 174/103 H 93 PG Care Time/CCT Total # of Minutes Spent Total Time Spent with Patient: Total time spent is greater than 50% in coordination of care (as documented) at patient's floor/unit and/or counseling patient: Coding Level of Care Code 45851 Subseq Hosp Care Lvl 3 Diagnoses Acute hyperkalemia E87.5 Chronic kidney disease, stage 4 (severe) N18.4 Hypertension I10 Anemia D64.9 Severe protein-calorie malnutrition E43
[2021-08-13] MEDS: LORazepam 0.5 MG/1 ML VIAL IV PRN ×2 (10:42→22:11)
[2021-08-13 10:47] LABS: BUN Creatinine Ratio 22.4 (10-20); Calcium 9.1 mg/dl (8.5-10.1); Est GFR (African American) 23.4 ml/min; Est GFR (Non-African American) 20.2 ml/min; Potassium 5.7 mmol/L (3.5-5.1)
[2021-08-13] MEDS: amLODIPine BESYLATE 5 MG TAB PO SCH (11:27)
--- NOTE | 2021-08-13 12:48 | Hospitalist Progress Note ---
Date of Service August 13, 2021 Assessment & Plan (1) Acute hyperkalemia: Plan: -Potassium was 6.2 upon admission. ? Medication effect versus volume depletion vs breakdown -08/11: He received from the ED Lasix 20 mg IV, D50 followed by 10 of regular insulin IV, calcium gluconate 1 g IV, and NSS 250 mls.Repeat BMP with up trended potassium 08/11-day time: started on lactulose, given additional insulin/D50, and NSS bolus with insulin. While he has a history of CHF and elevated BNP he is clinically hypovolemic and does not show evidence of congestion on CXR. Additional fluid bolus with low-dose Lasix given. Veltassa given, 1 dose today, 2 dose ordered. Additional 1 g calcium gluconate given Following NSS bolus patient with a acute episode of shortness of breath and difficulty breathing initially concerning for flash pulmonary edema, chest x-ray obtained at time of episode appeared slightly improved from prior without overt edema, patient rapidly improved back to baseline with Nitropaste/BiPAP/Lasix, although had minimal urine output.? Whether this was pulmonary edema from fluid bolus versus tachycardia/panic induced following his nebulizer. Given the patient had minimal urine output, continue to appear clinically dry, and had a relatively clear x-ray is placed on half-normal maintenance fluids at a rate of 100 cc.EKG was obtained and showed slight repolarization changes, patient was transferred to PCU. Signout was given to evening resident. Overnight patient with up trended potassium,Patient was about to get an additional fluid bolus, but had worsened breathing and repeat x-ray showed interval increase in pulmonary congestion/edema this was deferred. Patient clinically improved with BiPAP, but with persistent hyperkalemia. Respiratory administered 20 mg albuterol patient was given additional dose of Veltassa. Patient was also given calcium, ordered Lasix, and BMPs were trended. Nephrology is consulted. Continue Veltassa, monitor I's and O's, if remains greater than 6 add every 8 hour monitoring give Bumex 1 mg IV x1 dose per nephrology. Appreciate recommendations. CK negative, foot maxwell without signs of tissue necrosis, no evidence of rhabdo/cellular breakdown contributing 08/13: Patient potassium improved to 5.4, slight uptrend to 5.7. Continue lactulose. Continue to trend. Creatinine beginning to downtrend. Continue every q6 hours BMP (2) Acute on chronic respiratory failure with hypoxia: Plan: - At last admission from 07/25-08/04 was noted to be in CHF exacerbation. - Current sx consistent with COPD exacerbation - BNP 9215 See above regarding chest x-ray and concern for pulmonary edema (3) Acute exacerbation of chronic obstructive pulmonary disease: Plan: -Received methylprednisolone 125 mg IV in the ED -Methylprednisolone 40 mg IV every 8 hours switch to every 12 hours 08/13 Anticipate switch to prednisone 40 mg daily 08/14 if doing well - Azithromycin 500 mg IV x1, 250mg x 4 days -Guaifenesin extended release 1200 mg p.o. twice daily -Duonebs every 4 hours while awake and every 2 hours when necessary. (4) Hypoxia: Plan: -Nasal cannula oxygen, titrate to keep pulse ox 92 to 94% (5) CAD (coronary artery disease): Plan: -Continue to hold Amlodipine resumed - Continue aspirin, metoprolol succinate Bumex held while using IV Lasix (6) Pressure ulcer of both feet, stage 2: Plan: Wound care consult (7) CHF (congestive heart failure): Plan: See above (8) Severe protein-calorie malnutrition: Plan: Continue home supplementation: Vitamin B12, ferrous sulfate, folic acid and thiamine (9) Opioid dependence: Plan: - On [place] PRN x10 years reportedly for arthritis, will continue - Continue primidone for essential tremor (10) GERD (gastroesophageal reflux disease): Plan: Continue omeprazole/pantoprazole (11) Hyperlipidemia LDL goal <70: Plan: Continue atorvastatin (12) Hypertension: Plan: See above (13) Chronic kidney disease, stage 4 (severe): Plan: Creatinine 2.63 upon admission, with range 2.28-2.88 Uptrending on admission, 08/12 was 3.07 08/13 downtrending to 2.84 See nephro recommendations above Admission and Anticipated Discharge Date Admission Date: August 11, 2021 Subjective Patient is seen at the bedside this morning. He reports he feels like he is improving, and his shortness of breath is improving. He remains on 3 L of nasal cannula oxygen, he does not have a normal home oxygen requirement. He repeats he is eager to go the hospital for the [employer] game, discussed that he still has an elevated oxygen requirement and is hyperkalemic and has been getting intensive treatments for both. While he is progressing towards discharge, discussed that his potassium should be normal without aggressive interventions, and the goal is to wean his oxygen to room air or ultimately have a two-step if it looks like he has a new baseline oxygen requirement. Patient expresses understanding of this. Reports he feels anxious, but not short of breath today. Denies chest pain, chest pressure. Reports he is peeing normally. Reports has been having bowel movements since taking lactulose. Review of Systems Review of Systems: 10 point review systems negative except as noted in HPI Physical Exam Physical Exam: General: A&Ox3. NAD. Cooperative. HEENT: Atraumatic, normocephalic. Pupils equal and reactive to light. Vision and hearing grossly intact. Pulm: Moderate air movement with some bibasilar crackles, but without rales this morning. Coarse in upper lobes, but improved from prior.. Symmetrical chest rise. No increase work of breathing. No respiratory distress. Cardiac: RRR, -mrg. Radial pulses intact and symmetrical. Abdominal: Nontender, nondistended, soft. BS present. Extremities: Dry, no edema appreciated. Feet with wound dressing in place, C/D/I. Pulse intact bilaterally. Results & Data Results & Data ([facility]) Vital Signs (Past 12 Hours) Vital Signs Temp Pulse Pulse Resp BP BP Pulse Ox 08/13/21 11:53 36.7 C 85 20 154/76 H 95 08/13/21 10:53 90 16 98 08/13/21 08:49 85 08/13/21 07:03 84 16 94 08/13/21 06:58 36.6 C 89 16 165/85 H 97 08/13/21 03:54 36.4 C L 87 18 169/82 H 99 08/13/21 01:10 177/81 H PG Care Time/CCT Total # of Minutes Spent Total Time Spent with Patient: Total time spent is greater than 50% in coordination of care (as documented) at patient's floor/unit and/or counseling patient: Coding Level of Care Code 15469 Subseq Hosp Care Lvl 3 Diagnoses Acute hyperkalemia E87.5 Acute on chronic respiratory failure with hypoxia J96.21 Acute exacerbation of chronic obstructive pulmonary disease J44.1 Hypoxia R09.02 CAD (coronary artery disease) I25.10 Pressure ulcer of both feet, stage 2 L89.892 CHF (congestive heart failure) I50.33 Heart failure chronicity: acute on chronic Heart failure type: diastolic Severe protein-calorie malnutrition E43 Opioid dependence F11.20 GERD (gastroesophageal reflux disease) K21.9 Hyperlipidemia LDL goal <70 E78.5 Hypertension I10 Chronic kidney disease, stage 4 (severe) N18.4 (1) CHF (congestive heart failure) Heart failure chronicity: acute on chronic Heart failure type: diastolic Qualified Code(s): I50.33 - Acute on chronic diastolic (congestive) heart failure
--- NOTE | 2021-08-13 13:43 | Electrocardiogram Report ---
Test Reason : Blood Pressure : / mmHG Vent. Rate : 084 BPM Atrial Rate : 084 BPM P-R Int : 138 ms QRS Dur : 086 ms QT Int : 372 ms P-R-T Axes : 058 049 069 degrees QTc Int : 439 ms Sinus rhythm with Premature atrial complexes Otherwise normal ECG When compared with ECG of 12-AUG-2021 02:21, Premature atrial complexes are now Present Confirmed by Antonio Berrios ([id number]) on 08/13/2021 1:42:47 PM Referred By: REFERRED SELF Confirmed By:Antonio Berrios
[2021-08-13 14:25] LABS: BUN Creatinine Ratio 22.3 (10-20); Calcium 8.8 mg/dl (8.5-10.1); Creatinine Clr Calc Pharmacy 16.8 ml/min; Est GFR (Non-African American) 19.8 ml/min; Potassium 5.6 mmol/L (3.5-5.1)
[2021-08-13] MEDS: PATIROMER CALCIUM SORBITEX 8.4 GM PACK PO SCH (15:17)
[2021-08-13] MEDS ORDERED: methylPREDNISolone 40 MG in SYRINGE 0 ML IV SCH (16:00)
[2021-08-13 19:44] LABS: BUN Creatinine Ratio 24.7 (10-20); Calcium 8.6 mg/dl (8.5-10.1); Creatinine Clr Calc Pharmacy 17.2 ml/min; Est GFR (African American) 23.8 ml/min; Est GFR (Non-African American) 20.5 ml/min; Potassium 6.1 mmol/L (3.5-5.1)
[2021-08-13] MEDS: TAMSULOSIN HCL 0.4 MG CAP PO SCH (20:42)
[2021-08-13] MEDS: MIRTAZAPINE TAB 15 MG TAB PO SCH (20:44)
[2021-08-13 23:03] LABS: BUN Creatinine Ratio 25.5 (10-20); Calcium 8.5 mg/dl (8.5-10.1); Creatinine Clr Calc Pharmacy 17.5 ml/min; Est GFR (African American) 24.2 ml/min; Est GFR (Non-African American) 20.9 ml/min; Potassium 5.7 mmol/L (3.5-5.1)
[2021-08-14] MEDS: ALBUT/IPRATROP 3MG/0.5MG NEB 3 ML VIAL NEB SCH ×5 (01:51→19:29)
[2021-08-14 02:07] LABS: Basophils # (auto) 0.01 K/uL (0-0.2); Basophils % (auto) 0.1 %; Eosinophils # (auto) 0.08 K/uL (0-0.5); Eosinophils % (auto) 0.8 %; Hematocrit (blood only) 25.6 % (42-52); Hemoglobin 8.2 g/dL (14.0-18.0); Immature Granulocytes # (auto) 0.02 K/uL (0.00-0.02); Immature Granulocytes % (auto) 0.2 %; Lymphocytes % (auto) 13.7 %; Mean Corpuscular Hemoglobin 33.9 pg (25-34); Mean Corpuscular Volume 105.8 fL (80-100); Mean Platelet Volume 9.8 fL (7.4-10.4); Monocytes % (auto) 5.3 %; Neutrophils # (auto) 7.58 K/uL (1.4-6.5); Neutrophils % (auto) 79.9 %; Platelet Count 377 K/uL (130-400); RDW Coefficient of Variation 16.1 % (11.5-14.5); RDW Standard Deviation 62.3 fL (36.4-46.3); Red Blood Count 2.42 M/uL (4.7-6.1); White Blood Count 9.49 K/uL (4.8-10.8)
[2021-08-14 02:27] LABS: BUN Creatinine Ratio 24.1 (10-20); Calcium 8.8 mg/dl (8.5-10.1); Creatinine Clr Calc Pharmacy 17.4 ml/min; Est GFR (African American) 24.1 ml/min; Est GFR (Non-African American) 20.8 ml/min; Magnesium 1.5 mg/dl (1.8-2.4); Potassium 5.4 mmol/L (3.5-5.1)
[2021-08-14 06:58] LABS: BUN Creatinine Ratio 25.4 (10-20); Calcium 8.8 mg/dl (8.5-10.1); Creatinine Clr Calc Pharmacy 18.9 ml/min; Est GFR (African American) 25.1 ml/min; Est GFR (Non-African American) 21.6 ml/min; Potassium 5.1 mmol/L (3.5-5.1)
[2021-08-14] MEDS: guaiFENesin 600 MG TABCR PO SCH ×2 (09:07→21:08)
[2021-08-14] MEDS: ASPIRIN 81 MG ECTAB PO SCH (09:07)
[2021-08-14] MEDS: PANTOprazole 40 MG TAB PO SCH (09:07)
[2021-08-14] MEDS: FOLIC ACID 400 MCG TAB PO SCH (09:08)
[2021-08-14] MEDS: AZITHROMYCIN 250 MG TAB PO SCH (09:08)
[2021-08-14] MEDS: predniSONE 50 MG TAB PO SCH (09:08)
[2021-08-14] MEDS: CYANOCOBALAMIN 500 MCG TABLET (VITAMIN B-12) PO SCH (09:08)
[2021-08-14] MEDS: ATORVASTATIN 40 MG TAB PO SCH (09:08)
[2021-08-14] MEDS: METOPROLOL SUCC 50MG EXT REL TAB PO SCH (09:09)
[2021-08-14] MEDS: HEPARIN SOD 5,000 UNIT/0.5 ML VIAL SQ SCH (09:09)
[2021-08-14] MEDS: MAGNESIUM OXIDE 400 MG TAB PO SCH ×2 (09:09→21:07)
[2021-08-14] MEDS: THIAMINE HCL 100 MG TAB PO SCH (09:10)
[2021-08-14] MEDS: UMECLIDINIUM BROMIDE 62.5MCG/BLISTER 7 PUFFS/INHALER INH SCH (09:10)
[2021-08-14] MEDS: VENLAFAXINE HCL XR 37.5 MG CAPXR PO SCH (09:10)
[2021-08-14] MEDS: PRIMIDONE 50 MG TAB PO SCH ×2 (09:10→21:09)
[2021-08-14] MEDS: MULTIVITAMIN TAB PO SCH (09:10)
[2021-08-14] MEDS: amLODIPine BESYLATE 5 MG TAB PO SCH (09:11)
[2021-08-14 10:18] LABS: BUN Creatinine Ratio 25.5 (10-20); Calcium 8.6 mg/dl (8.5-10.1); Creatinine Clr Calc Pharmacy 19.2 ml/min; Est GFR (African American) 25.5 ml/min; Potassium 4.9 mmol/L (3.5-5.1)
[2021-08-14] MEDS: LORazepam 0.5 MG/1 ML VIAL IV PRN ×2 (10:27→22:44)
--- NOTE | 2021-08-14 10:33 | Nephrology Progress Note ---
Date of Service August 14, 2021 Assessment & Plan (1) Acute hyperkalemia: Plan: Potassium improving. Remains on daily Patiromer. Ideally, we should explore affordability of potentially continuing the medication post discharge. Low potassium diet. Goals of care reviewed. (2) Chronic kidney disease, stage 4 (severe): Plan: Advanced kidney dysfunction approaching ESRD. Goals of care discussed. Un fortunately, due to frailty and medical comorbidities, Usman is a poor candidate for hemodialysis. Current plan to temporize medically as best as we can. Thankfully, creatinine stable. (3) Hypertension: Plan: Amlodipine increased to 10 mg daily. Avoid ZARINA/ARB due to hyperkalemia and kidney dysfunction. I suspect Usman would tolerate some increase in his beta awilda. Consider restarting Bumex if kidney function remains stable over next couple days. (4) Anemia: Plan: IV Venofer loading provided during recent admission. Epogen 77589 units provided today. (5) Severe protein-calorie malnutrition: Plan: Frailty and COPD significant contributing factors to overall poor prognosis. Unfortunately, hemodialysis is likely to add significant treatment burden and I am not sure would ultimately provide significant therapeutic benefits. The patient's daughter expressed understanding. I would suggest having palliative care involved for assistance with goals of care moving forward. Admission and Anticipated Discharge Date Admission Date: August 11, 2021 Subjective No acute events overnight. Usman feels reasonably well this morning and told me that he wishes he was home to watch the football game. He feels that his breathing is "like it always is..." He acknowledges that he is very weak and will require a lot of assistance at home. He also notes that he has home nursing and doesn't feel any weaker than when he left the hospital last time. He was not really able to tell me the reason for being in the hospital. He did tell me that being at home and being comfortable are his two primary goals. He is comfortable now but much more comfortable at home. We discussed the advanced nature of his COPD and kidney dysfunction, his response was "Doc, I really don't want to hear it." When we discussed dialysis, at first he told me that he didn't remember anyone mentioning it to him before and then admitted that he has been ignoring or intentionally forgetting details because it is hard for him to accept. He fears dying. He did ask that I update his daughter, Allison. I called Allison and reviewed all these details with her. She expressed understanding. She acknowledged Usman' guarded condition and the severity of his illness. She would like to focus on comfort and expressed that she really appreciate having palliative care involved when her mother was sick and dying. She is following Usman' condition closely in the EHR. I reviewed the patient's condition and overall plan of care with Dr. Powers this AM. Review of Systems Review of Systems: All systems reviewed & are unremarkable except as noted in HPI & below Physical Exam Constitutional: + ill appearing and + cachectic; no acute distress Eyes: + anicteric sclerae; no conjunctival abnormality ENMT: Mouth: + dry oral mucous membranes Neck: normal visual inspection and trachea midline Respiratory: normal respiratory effort; no labored breathing Auscultation: + diminished lung sounds and + rales Cardiovascular: Rate/Rhythm: regular rate Heart Sounds: normal S1 and normal S2 Extremities: no edema Musculoskeletal: Extremities: + muscle atrophy Skin: + turgor decreased and + dry skin Neurologic: Motor/Sensory: no tremor and no asterixis Psychiatric: Orientation: alert and oriented x 3 Results & Data ([facility]) Vital Signs (Past 12 Hours) Vital Signs Temp Pulse Pulse Resp BP BP Pulse Ox 08/14/21 07:05 103 H 20 93 08/14/21 06:56 36.6 C 100 H 20 181/91 H 96 08/14/21 04:51 99 H 08/14/21 03:45 36.6 C 86 18 163/83 H 97 08/14/21 01:52 91 H 18 95 08/13/21 22:50 36.6 C 103 H 18 191/99 H 94 Laboratory Results Laboratory Results - last 24 hr 08/13/21 08/13/21 08/13/21 13:46 18:39 22:28 WBC RBC Hgb Hct MCV MCH MCHC RDW Std Deviation RDW Coeff of Lucas Plt Count MPV Immature Gran % (Auto) Neut % (Auto) Lymph % (Auto) [place] % (Auto) Eos % (Auto) Baso % (Auto) Neut # (Auto) Lymph # (Auto) [place] # (Auto) Eos # (Auto) Baso # (Auto) Immature Gran # (Auto) Sodium 134 L 133 L 134 L Potassium 5.6 H 6.1 H* 5.7 H Chloride 104 104 104 Carbon Dioxide 23 26 25 Anion Gap 7.0 4.0 5.0 BUN 64 H 69 H 71 H Creatinine 2.88 H 2.80 H 2.76 H Est Cr Clr Drug Dosing 16.8 17.2 17.5 Est GFR ( Amer) 23.0 23.8 24.2 Est GFR (Non-Af Amer) 19.8 20.5 20.9 BUN/Creatinine Ratio 22.3 H 24.7 H 25.5 H Glucose 116 H 123 H 146 H Calcium 8.8 8.6 8.5 Magnesium 08/14/21 08/14/21 08/14/21 01:45 01:45 06:12 WBC 9.49 RBC 2.42 L Hgb 8.2 L Hct 25.6 L MCV 105.8 H MCH 33.9 MCHC 32.0 RDW Std Deviation 62.3 H RDW Coeff of Lucas 16.1 H Plt Count 377 MPV 9.8 Immature Gran % (Auto) 0.2 Neut % (Auto) 79.9 Lymph % (Auto) 13.7 [place] % (Auto) 5.3 Eos % (Auto) 0.8 Baso % (Auto) 0.1 Neut # (Auto) 7.58 H Lymph # (Auto) 1.30 [place] # (Auto) 0.50 Eos # (Auto) 0.08 Baso # (Auto) 0.01 Immature Gran # (Auto) 0.02 Sodium 134 L 135 L Potassium 5.4 H 5.1 Chloride 103 105 Carbon Dioxide 27 27 Anion Gap 4.0 3.0 BUN 67 H 68 H Creatinine 2.77 H 2.68 H Est Cr Clr Drug Dosing 17.4 18.9 Est GFR ( Amer) 24.1 25.1 Est GFR (Non-Af Amer) 20.8 21.6 BUN/Creatinine Ratio 24.1 H 25.4 H Glucose 103 H 90 Calcium 8.8 8.8 Magnesium 1.5 L 08/14/21 09:49 WBC RBC Hgb Hct MCV MCH MCHC RDW Std Deviation RDW Coeff of Lucas Plt Count MPV Immature Gran % (Auto) Neut % (Auto) Lymph % (Auto) [place] % (Auto) Eos % (Auto) Baso % (Auto) Neut # (Auto) Lymph # (Auto) [place] # (Auto) Eos # (Auto) Baso # (Auto) Immature Gran # (Auto) Sodium 134 L Potassium 4.9 Chloride 103 Carbon Dioxide 28 Anion Gap 3.0 BUN 67 H Creatinine 2.64 H Est Cr Clr Drug Dosing 19.2 Est GFR ( Amer) 25.5 Est GFR (Non-Af Amer) 22.0 BUN/Creatinine Ratio 25.5 H Glucose 102 H Calcium 8.6 Magnesium PG Care Time/CCT Total # of Minutes Spent Total Time Spent with Patient: Total time spent is greater than 50% in coordination of care (as documented) at patient's floor/unit and/or counseling patient: Coding Level of Care Code 03001 Subseq Hosp Care Lvl 3 Diagnoses Acute hyperkalemia E87.5 Chronic kidney disease, stage 4 (severe) N18.4 Hypertension I10 Anemia D64.9 Severe protein-calorie malnutrition E43
[2021-08-14] MEDS ORDERED: EPOETIN ALFA 10,000 UNITS/ML VIAL SQ ONE (11:02)
[2021-08-14] MEDS: PATIROMER CALCIUM SORBITEX 8.4 GM PACK PO SCH (12:33)
--- NOTE | 2021-08-14 13:21 | CT Scan Report ---
CT chest diagnostic wo con CLINICAL HISTORY: persistent O2 req . Shortness of breath. History of emphysema. COMPARISON STUDY: CT of the chest from 07/29/2021 CT DOSE: 255.73 mGy.cm TECHNIQUE: Standard CT of the Chest was performed without IV contrast. A dose lowering technique was utilized adhering to the principles of ALARA. FINDINGS: Airway: The airway is clear. No endobronchial lesion is identified. Lungs and pleural: Compared to the previous examination, there are moderate-sized bilateral pleural e ffusions with interval decrease in bibasilar atelectasis. Moderate to marked centrilobular emphysemat ous changes are again seen involving the lungs bilaterally. Honeycombing is again seen at the lung ba ses. There is interval decrease in interstitial edema. No confluent alveolar opacities are bronchogra ms are seen. Mediastinum: There is no evidence for pathologic adenopathy on these limited noncontrast images. The heart size is within normal limits. Prominent coronary artery calcification is present. The thoracic aorta is within normal limits. Extensive atherosclerotic calcifications present involving the aortic arch and origin of the great vessels. There is no evidence for pericardial effusion. Upper abdomen: The adrenal glands are normal bilaterally. Osseous structures: There is no acute osseous pathology. IMPRESSION: 1. Compared to the previous examination, there has been slight decrease in size of moderate-sized diana ateral pleural effusions. 2. There has been interval decrease in bibasal atelectasis. 3. There is again moderate to marked centrilobular emphysematous change and honeycombing. 4. There is decreased interstitial edema. 5. No acute alveolar opacities or air bronchograms. ACT 112: Negative or not required by law. Electronically signed by: Geovanni Delacruz M.D. 08/14/2021 1:20 PM
[2021-08-14 14:44] LABS: BUN Creatinine Ratio 25.3 (10-20); Calcium 8.5 mg/dl (8.5-10.1); Creatinine Clr Calc Pharmacy 19.4 ml/min; Est GFR (African American) 25.9 ml/min; Est GFR (Non-African American) 22.3 ml/min; Potassium 5.4 mmol/L (3.5-5.1)
[2021-08-14 14:47] LABS: D Dimer 2050 ug/L FEU (0-500)
[2021-08-14] MEDS ORDERED: HYDROmorphone INJ 0.5 MG/0.5 ML SYR IV STA (16:10)
--- NOTE | 2021-08-14 16:49 | Hospitalist Progress Note ---
Date of Service August 14, 2021 Assessment & Plan (1) Acute hyperkalemia: Plan: - 08/14/21 Goals of care: Extensive goals of care discussion was had with patient and in conference call with both of his daughters Allison and Sonja. Patient CT noncontrast scan was normal, patient with tachycardia, anxiety, left rib discomfort worse with inspiration today, and oxygen requirements persistent and not improving with COPD treatment. CTA unable to be performed due to kidney injury/CKD, D-dimer positive. Wells score 7.5 points, high risk for PE. Discussed risk/benefits of various treatment options including further diagnostic work-up and treatment with patient and his family. At this point his kidney function is relatively unchanged, severely impaired at baseline. Dialysis would likely severely impair his quality of life, and would place a significant burden on his body. Patient acknowledges this and reports dialysis is not something that he would want. In addition should he arrest CPR/intubation would likely be debilitating to him, to which patient agrees. Given his progressive COPD, and underlying comorbidities including protein calorie malnutrition, panic attacks with narrow pulmonary reserve, and CAD options for palliative care and hospice were discussed. Patient does not like the term hospice, but does report that his goals would be to remain out of the hospital at home and to treat his symptoms with medications such as Ativan/morphine to keep him comfortable even if this were to shorten his life if it preserve the quality of his life and kept him at home. He reports he has extensive services at home, and does not feel he needs someone in and out to check on him, but is agreeable to hospice referral and would like to have resources available to him at home. Expresses that he would like his shortness of breath and symptoms treated symptomatically at home, and would not want readmission to the hospital in the future. Agrees that he would not want CPR or dialysis or further diagnostic treatment at this time. He expresses frustration with his overall medical condition, but cites comfort and being home as his primary goals. He notes that his had recently passed on hospice, and also had a blood clot which is scary to him. Discussed at this time will treat empirically with apixaban for likely blood clot, and understands this puts him at a risk of bleeding. Will treat shortness of breath with oxygen and Ativan, and pain with low-dose hydromorphone as indicated. Will defer additional labs at this time. Anticipate discharge home possibly tomorrow on hospice services available. - Continue Apixaban 5mg BID - Ativan 0.5mg IV Q4H PRN for anxiety/dyspnea - Hydromorphone 0.5mg q6h for pain - DNR/DNI Code Status - Does not wish to pursue dialysis/aggressive diagnostics/treatments - Potassium treatment as below Potassium was 6.2 upon admission. ? Medication effect versus volume depletion vs breakdown -08/11: He received from the ED Lasix 20 mg IV, D50 followed by 10 of regular insulin IV, calcium gluconate 1 g IV, and NSS 250 mls.Repeat BMP with up trended potassium 08/11-day time: started on lactulose, given additional insulin/D50, and NSS bolus with insulin. While he has a history of CHF and elevated BNP he is clinically hypovolemic and does not show evidence of congestion on CXR. Additional fluid bolus with low-dose Lasix given. Veltassa given, 1 dose today, 2 dose ordered. Additional 1 g calcium gluconate given Following NSS bolus patient with a acute episode of shortness of breath and difficulty breathing initially concerning for flash pulmonary edema, chest x-ray obtained at time of episode appeared slightly improved from prior without overt edema, patient rapidly improved back to baseline with Nitropaste/BiPAP/Lasix, although had minimal urine output.? Whether this was pulmonary edema from fluid bolus versus tachycardia/panic induced following his nebulizer. Given the patient had minimal urine output, continue to appear clinically dry, and had a relatively clear x-ray is placed on half-normal maintenance fluids at a rate of 100 cc.EKG was obtained and showed slight repolarization changes, patient was transferred to PCU. Signout was given to evening resident. Overnight patient with up trended potassium,Patient was about to get an additional fluid bolus, but had worsened breathing and repeat x-ray showed interval increase in pulmonary congestion/edema this was deferred. Patient clinically improved with BiPAP, but with persistent hyperkalemia. Respiratory administered 20 mg albuterol patient was given additional dose of Veltassa. Patient was also given calcium, ordered Lasix, and BMPs were trended. Nephrology is consulted. Continue Veltassa, monitor I's and O's, if remains greater than 6 add every 8 hour monitoring give Bumex 1 mg IV x1 dose per nephrology. Appreciate recommendations. CK negative, foot maxwell without signs of tissue necrosis, no evidence of rhabdo/cellular breakdown contributing 08/13: Patient potassium improved to 5.4, slight uptrend to 5.7. Continue lactulose. Continue to trend. Creatinine beginning to downtrend. Continue every q6 hours BMP - 08/14: 5.4. Continue lactulose, patiromer. Anticipate d/c on discharge home with hospice (2) Acute on chronic respiratory failure with hypoxia: Plan: - At last admission from 07/25-08/04 was noted to be in CHF exacerbation. - Wells score HIGH RISK 40%. D-Dimer positive. Unable to CTA due to CKD. VQ/diagnostics deferred on risk/benefit tx above - Apixaban 5mg BID empiric - BNP 9215 See above regarding chest x-ray and concern for pulmonary edema - Continue home COPD meds (3) Acute exacerbation of chronic obstructive pulmonary disease: Plan: -Received methylprednisolone 125 mg IV in the ED -Methylprednisolone 40 mg IV every 8 hours switch to every 12 hours 08/13 - Taper prednisone 10mg daily - Azithromycin 500 mg IV x1, 250mg x 4 days -Guaifenesin extended release 1200 mg p.o. twice daily -Duonebs every 4 hours while awake and every 2 hours when necessary. - Not improved with COPD tx, no wheezing today, Current presentation/hypoxia not consistent with COPD, suspect PE as noted (4) Hypoxia: Plan: -Nasal cannula oxygen, titrate to keep pulse ox 92 to 94% (5) CAD (coronary artery disease): Plan: -Continue to hold Amlodipine resumed - Continue aspirin, metoprolol succinate (6) Pressure ulcer of both feet, stage 2: Plan: Wound care consult (7) CHF (congestive heart failure): Plan: See above (8) Severe protein-calorie malnutrition: Plan: Continue home supplementation: Vitamin B12, ferrous sulfate, folic acid and thiamine (9) Opioid dependence: Plan: - On [place] PRN x10 years reportedly for arthritis, will continue - Continue primidone for essential tremor (10) GERD (gastroesophageal reflux disease): Plan: Continue omeprazole/pantoprazole (11) Hyperlipidemia LDL goal <70: Plan: Continue atorvastatin (12) Hypertension: Plan: See above (13) Chronic kidney disease, stage 4 (severe): Plan: Creatinine 2.63 upon admission, with range 2.28-2.88 Uptrending on admission, 08/12 was 3.07 See goals of care above Additional BMP deferred Admission and Anticipated Discharge Date Admission Date: August 11, 2021 Subjective Extensive goals of care discussion was had with patient and in conference call with both of his daughters Allison and Sonja. Patient CT noncontrast scan was normal, patient with tachycardia, anxiety, left rib discomfort worse with inspiration today, and oxygen requirements persistent and not improving with COPD treatment. CTA unable to be performed due to kidney injury/CKD, D-dimer positive. Wells score 7.5 points, high risk for PE. Discussed risk/benefits of various treatment options including further diagnostic work-up and treatment with patient and his family. At this point his kidney function is relatively unchanged, severely impaired at baseline. Dialysis would likely severely impair his quality of life, and would place a significant burden on his body. Patient acknowledges this and reports dialysis is not something that he would want. In addition should he arrest CPR/intubation would likely be debilitating to him, to which patient agrees. Given his progressive COPD, and underlying comorbidities including protein calorie malnutrition, panic attacks with narrow pulmonary reserve, and CAD options for palliative care and hospice were discussed. Patient does not like the term hospice, but does report that his goals would be to remain out of the hospital at home and to treat his symptoms with medications such as Ativan/morphine to keep him comfortable even if this were to shorten his life if it preserve the quality of his life and kept him at home. He reports he has extensive services at home, and does not feel he needs someone in and out to check on him, but is agreeable to hospice referral and would like to have r esources available to him at home. Expresses that he would like his shortness of breath and symptoms treated symptomatically at home, and would not want readmission to the hospital in the future. Agrees that he would not want CPR or dialysis or further diagnostic treatment at this time. He expresses frustration with his overall medical condition, but cites comfort and being home as his primary goals. He notes that his had recently passed on hospice, and also had a blood clot which is scary to him. Discussed at this time will treat empirically with apixaban for likely blood clot, and understands this puts him at a risk of bleeding. Will treat shortness of breath with oxygen and Ativan, and pain with low-dose hydromorphone as indicated. Will defer additional labs at this time. Anticipate discharge home possibly tomorrow on hospice services available. Review of Systems Review of Systems: Constitutional: Denies fever, chills, malaise Eyes: Denies vision change ENT: Denies ear pain, sore throat, sinus pain Cardiovascular: See subjective Respiratory: Endorses chest pain in his left lower ribs worsened with inspiration, no shortness of breath at rest while on oxygen today. Intermittent nonproductive cough. Gastrointestinal: Denies abdominal pain, nausea, vomiting, constipation, di arrhea Genitourinary: Denies dysuria, urinary frequency Musculoskeletal: Denies acute focal weakness, muscle aches/pain, joint aches/pain Integumentary:Denies acute rash, lesions, bruising Neurological: Denies headache, numbness, tingling,. Endorses anxiety Physical Exam Physical Exam: General: A&Ox3. NAD. Cooperative. Appears frail, chronically ill. HEENT: Atraumatic, normocephalic. Pupils equal and reactive to light. Vision and hearing grossly intact. Pulm: Moderate air movement with some bibasilar crackles, no rales or wheezing. Symmetrical chest rise. No increase work of breathing. No respiratory distress. Cardiac: RRR, -mrg. Radial pulses intact and symmetrical. Abdominal: Nontender, nondistended, soft. BS present. Extremities: Dry, no edema appreciated. Feet with wound dressing in place, C/D/I. Pulse intact bilaterally. Results & Data Results & Data ([facility]) Vital Signs (Past 12 Hours) Vital Signs Temp Pulse Pulse Resp BP BP Pulse Ox 08/14/21 15:34 36.6 C 86 18 168/82 H 100 08/14/21 14:49 90 18 93 08/14/21 13:17 36.3 C L 94 H 18 167/77 H 93 08/14/21 10:43 76 20 95 08/14/21 07:05 103 H 20 93 08/14/21 06:56 36.6 C 100 H 20 181/91 H 96 08/14/21 04:51 99 H PG Care Time/CCT Total # of Minutes Spent Total Time Spent with Patient: Total time spent is greater than 50% in coordination of care (as documented) at patient's floor/unit and/or counseling patient: Coding Level of Care Code 04716 Subseq Hosp Care Lvl 3 Diagnoses Acute hyperkalemia E87.5 Acute on chronic respiratory failure with hypoxia J96.21 Acute exacerbation of chronic obstructive pulmonary disease J44.1 Hypoxia R09.02 CAD (coronary artery disease) I25.10 Pressure ulcer of both feet, stage 2 L89.892 CHF (congestive heart failure) I50.33 Heart failure chronicity: acute on chronic Heart failure type: diastolic Severe protein-calorie malnutrition E43 Opioid dependence F11.20 GERD (gastroesophageal reflux disease) K21.9 Hyperlipidemia LDL goal <70 E78.5 Hypertension I10 Chronic kidney disease, stage 4 (severe) N18.4 (1) CHF (congestive heart failure) Heart failure chronicity: acute on chronic Heart failure type: diastolic Qualified Code(s): I50.33 - Acute on chronic diastolic (congestive) heart failure
[2021-08-14] MEDS: HYDROCODONE/ACETAMOPHEN 5/325MG TAB PO PRN ×2 (17:54→23:46)
[2021-08-14] MEDS: APIXABAN 5 MG TABLET PO SCH (17:56)
[2021-08-14] MEDS: MIRTAZAPINE TAB 15 MG TAB PO SCH (21:08)
[2021-08-14] MEDS: TAMSULOSIN HCL 0.4 MG CAP PO SCH (21:09)
[2021-08-15] MEDS: ALBUT/IPRATROP 3MG/0.5MG NEB 3 ML VIAL NEB SCH ×5 (03:06→19:21)
[2021-08-15] MEDS: HYDROCODONE/ACETAMOPHEN 5/325MG TAB PO PRN ×2 (08:26→19:14)
[2021-08-15] MEDS: PANTOprazole 40 MG TAB PO SCH (08:27)
[2021-08-15] MEDS: guaiFENesin 600 MG TABCR PO SCH ×2 (08:27→21:38)
[2021-08-15] MEDS: MAGNESIUM OXIDE 400 MG TAB PO SCH ×2 (08:27→21:38)
[2021-08-15] MEDS: METOPROLOL SUCC 50MG EXT REL TAB PO SCH (08:27)
[2021-08-15] MEDS: MULTIVITAMIN TAB PO SCH (08:28)
[2021-08-15] MEDS: PRIMIDONE 50 MG TAB PO SCH ×2 (08:28→21:37)
[2021-08-15] MEDS: ATORVASTATIN 40 MG TAB PO SCH (08:28)
[2021-08-15] MEDS: predniSONE 50 MG TAB PO SCH (08:28)
[2021-08-15] MEDS: CYANOCOBALAMIN 500 MCG TABLET (VITAMIN B-12) PO SCH (08:28)
[2021-08-15] MEDS: AZITHROMYCIN 250 MG TAB PO SCH (08:28)
[2021-08-15] MEDS: FOLIC ACID 400 MCG TAB PO SCH (08:28)
[2021-08-15] MEDS: VENLAFAXINE HCL XR 37.5 MG CAPXR PO SCH (08:28)
[2021-08-15] MEDS: ASPIRIN 81 MG ECTAB PO SCH (08:28)
[2021-08-15] MEDS: APIXABAN 5 MG TABLET PO SCH ×2 (08:29→21:37)
[2021-08-15] MEDS: amLODIPine BESYLATE 5 MG TAB PO SCH (08:29)
[2021-08-15] MEDS: THIAMINE HCL 100 MG TAB PO SCH (08:29)
[2021-08-15] MEDS: UMECLIDINIUM BROMIDE 62.5MCG/BLISTER 7 PUFFS/INHALER INH SCH (08:33)
[2021-08-15] MEDS ORDERED: LORazepam 0.5 MG/1 ML VIAL IV PRN (09:57)
--- NOTE | 2021-08-15 10:16 | Nephrology Progress Note ---
Date of Service August 15, 2021 Assessment & Plan (1) Acute hyperkalemia: Plan: Goals of care reviewed. Additional patiromer provided. Dietary discretion advised. (2) Chronic kidney disease, stage 4 (severe): Plan: Goals of care predominately focused on comfort reviewed. HD will not be consider part of any future care plan at patient's request. No additional recommendations at this time. Medications appropriate for kidney function. I would be happy to provide outpatient follow up if Usman desires (or if felt needed in the future) but follow up will not be required based on current goals of care. (3) Anemia of chronic disease: Plan: IV Venofer loading provided during recent admission. Epogen 17133 units provided yesterday. Admission and Anticipated Discharge Date Admission Date: August 11, 2021 Subjective No acute events overnight. Usman feel reasonably well this AM and is looking forward to going home. Confirmed that he does not want dialysis. I reviewed the plan of care with Dr. Powers. Review of Systems Review of Systems: All systems reviewed & are unremarkable except as noted in HPI & below Physical Exam Physical Exam: Deferred Results & Data ([facility]) Vital Signs (Past 12 Hours) Vital Signs Temp Pulse Pulse Resp BP Pulse Ox 08/15/21 08:32 36.7 C 102 H 18 161/77 H 95 08/15/21 07:17 92 H 18 96 08/15/21 07:14 86 08/15/21 04:35 36.8 C 85 18 175/95 H 97 08/15/21 03:50 86 08/15/21 03:06 18 94 08/14/21 22:46 36.4 C L 89 20 183/97 H 98 Laboratory Results Laboratory Results - last 24 hr 08/14/21 08/14/21 08/14/21 09:49 14:20 14:20 D-Dimer 2050 H* Sodium 134 L 134 L Potassium 4.9 5.4 H Chloride 103 104 Carbon Dioxide 28 26 Anion Gap 3.0 4.0 BUN 67 H 66 H Creatinine 2.64 H 2.61 H Est Cr Clr Drug Dosing 19.2 19.4 Est GFR ( Amer) 25.5 25.9 Est GFR (Non-Af Amer) 22.0 22.3 BUN/Creatinine Ratio 25.5 H 25.3 H Glucose 102 H 153 H Calcium 8.6 8.5 PG Care Time/CCT Total # of Minutes Spent Total Time Spent with Patient: Total time spent is greater than 50% in coordination of care (as documented) at patient's floor/unit and/or counseling patient: Coding Level of Care Code 77293 Subseq Hosp Care Lvl 2 Diagnoses Acute hyperkalemia E87.5 Chronic kidney disease, stage 4 (severe) N18.4 Anemia of chronic disease D63.8
[2021-08-15] MEDS: HYDROmorphone INJ 0.5 MG/0.5 ML SYR IV PRN ×3 (10:26→22:20)
[2021-08-15] MEDS: PATIROMER CALCIUM SORBITEX 8.4 GM PACK PO SCH (12:02)
--- NOTE | 2021-08-15 18:57 | Hospitalist Progress Note ---
Date of Service August 15, 2021 Assessment & Plan (1) Acute hyperkalemia: Plan: Disposition: Patient pending discharge home with hospice, waiting for hospice services to be arranged. - 08/14/21 Goals of care: Extensive goals of care discussion was had with patient and in conference call with both of his daughters Allison and Sonja. Patient CT noncontrast scan was normal, patient with tachycardia, anxiety, left rib discomfort worse with inspiration today, and oxygen requirements persistent and not improving with COPD treatment. CTA unable to be performed due to kidney injury/CKD, D-dimer positive. Wells score 7.5 points, high risk for PE. Discussed risk/benefits of various treatment options including further diagnostic work-up and treatment with patient and his family. At this point his kidney function is relatively unchanged, severely impaired at baseline. Dialysis would likely severely impair his quality of life, and would place a significant burden on his body. Patient acknowledges this and reports dialysis is not something that he would want. In addition should he arrest CPR/intubation would likely be debilitating to him, to which patient agrees. Given his progressive COPD, and underlying comorbidities including protein calorie malnutrition, panic attacks with narrow pulmonary reserve, and CAD options for palliative care and hospice were discussed. Patient does not like the term hospice, but does report that his goals would be to remain out of the hospital at home and to treat his symptoms with medications such as Ativan/morphine to keep him comfortable even if this were to shorten his life if it preserve the quality of his life and kept him at home. He reports he has extensive services at home, and does not feel he needs someone in and out to check on him, but is agreeable to hospice referral and would like to have resources available to him at home. Expresses that he would like his shortness of breath and symptoms treated symptomatically at home, and would not want readmission to the hospital in the future. Agrees that he would not want CPR or dialysis or further diagnostic treatment at this time. He expresses frustration with his overall medical condition, but cites comfort and being home as his primary goals. He notes that his had recently passed on hospice, and also had a blood clot which is scary to him. Discussed at this time will treat empirically with apixaban for likely blood clot, and understands this puts him at a risk of bleeding. Will treat shortness of breath with oxygen and Ativan, and pain with low-dose hydromorphone as indicated. Will defer additional labs at this time. Anticipate discharge home possibly tomorrow on hospice services available. - Continue Apixaban 5mg BID - Ativan 0.5mg IV Q4H PRN for anxiety/dyspnea - Hydromorphone 0.5mg q6h for pain - DNR/DNI Code Status - Does not wish to pursue dialysis/aggressive diagnostics/treatments - Potassium treatment as below Potassium was 6.2 upon admission. ? Medication effect versus volume depletion vs breakdown -08/11: He received from the ED Lasix 20 mg IV, D50 followed by 10 of regular insulin IV, calcium gluconate 1 g IV, and NSS 250 mls.Repeat BMP with up trended potassium 08/11-day time: started on lactulose, given additional insulin/D50, and NSS bolus with insulin. While he has a history of CHF and elevated BNP he is clinically hypovolemic and does not show evidence of congestion on CXR. Additional fluid bolus with low-dose Lasix given. Veltassa given, 1 dose today, 2 dose ordered. Additional 1 g calcium gluconate given Following NSS bolus patient with a acute episode of shortness of breath and difficulty breathing initially concerning for flash pulmonary edema, chest x-ray obtained at time of episode appeared slightly improved from prior without overt edema, patient rapidly improved back to baseline with Nitropaste/BiPAP/Lasix, although had minimal urine output.? Whether this was pulmonary edema from fluid bolus versus tachycardia/panic induced following his nebulizer. Given the patient had minimal urine output, continue to appear clinically dry, and had a relatively clear x-ray is placed on half-normal maintenance fluids at a rate of 100 cc.EKG was obtained and showed slight repolarization changes, patient was transferred to PCU. Signout was given to evening resident. Overnight patient with up trended potassium,Patient was about to get an additional fluid bolus, but had worsened breathing and repeat x-ray showed interval increase in pulmonary congestion/edema this was deferred. Patient clinically improved with BiPAP, but with persistent hyperkalemia. Respiratory administered 20 mg albuterol patient was given additional dose of Veltassa. Patient was also given calcium, ordered Lasix, and BMPs were trended. Nephrology is consulted. Continue Veltassa, monitor I's and O's, if remains greater than 6 add every 8 hour monitoring give Bumex 1 mg IV x1 dose per nephrology. Appreciate recommendations. CK negative, foot maxwell without signs of tissue necrosis, no evidence of rhabdo/cellular breakdown contributing 08/13: Patient potassium improved to 5.4, slight uptrend to 5.7. Continue lactulose. Continue to trend. Creatinine beginning to downtrend. Continue every q6 hours BMP - 08/14: 5.4. Continue lactulose, patiromer. Anticipate d/c on discharge home with hospice (2) Acute on chronic respiratory failure with hypoxia: Plan: - At last admission from 07/25-08/04 was noted to be in CHF exacerbation. - Wells score HIGH RISK 40%. D-Dimer positive. Unable to CTA due to CKD. VQ/diagnostics deferred on risk/benefit tx above - Apixaban 5mg BID empiric - BNP 9215 See above regarding chest x-ray and concern for pulmonary edema - Continue home COPD meds (3) Acute exacerbation of chronic obstructive pulmonary disease: Plan: -Received methylprednisolone 125 mg IV in the ED -Methylprednisolone 40 mg IV every 8 hours switch to every 12 hours 08/13 - Taper prednisone 10mg daily - Azithromycin 500 mg IV x1, 250mg x 4 days -Guaifenesin extended release 1200 mg p.o. twice daily -Duonebs every 4 hours while awake and every 2 hours when necessary. - Not improved with COPD tx, no wheezing today, Current presentation/hypoxia not consistent with COPD, suspect PE as noted (4) Hypoxia: Plan: -Nasal cannula oxygen, titrate to keep pulse ox 92 to 94% (5) CAD (coronary artery disease): Plan: -Continue to hold Amlodipine resumed - Continue aspirin, metoprolol succinate (6) Pressure ulcer of both feet, stage 2: Plan: Wound care consult (7) CHF (congestive heart failure): Plan: See above (8) Severe protein-calorie malnutrition: Plan: Continue home supplementation: Vitamin B12, ferrous sulfate, folic acid and thiamine (9) Opioid dependence: Plan: - On Benson PRN x10 years reportedly for arthritis, will continue - Continue primidone for essential tremor (10) GERD (gastroesophageal reflux disease): Plan: Continue omeprazole/pantoprazole (11) Hyperlipidemia LDL goal <70: Plan: Continue atorvastatin (12) Hypertension: Plan: See above (13) Chronic kidney disease, stage 4 (severe): Plan: Creatinine 2.63 upon admission, with range 2.28-2.88 Uptrending on admission, 08/12 was 3.07 See goals of care above Additional BMP deferred Admission and Anticipated Discharge Date Admission Date: August 11, 2021 Subjective Patient seen at bedside. Feels unchanged, comfortable at time of assessment with no shortness of breath anoxia mask. Reports conversations over the last day "a lot "but expresses appreciation of care. At this point patient would like to return home soon as possible, or just pending arrangement of hospice services. No additional questions at assessment. Denies chest pain, chest pressure, shortness of breath. Endorses some left lower rib pain improved with pain medicine, not worsened by inspiration today. Review of Systems Review of Systems: Constitutional: Denies fever, chills, malaise Eyes: Denies vision change ENT: Denies ear pain, sore throat, sinus pain Cardiovascular: See subjective Respiratory: Intermittent nonproductive cough. Gastrointestinal: Denies abdominal pain, nausea, vomiting, constipation, diarrhea Genitourinary: Denies dysuria, urinary frequency Musculoskeletal: Denies acute focal weakness, muscle aches/pain, joint aches/pain Integumentary:Denies acute rash, lesions, bruising Neurological: Denies headache, numbness, tingling,. Endorses anxiety Physical Exam Physical Exam: General: A&Ox3. NAD. Cooperative. Appears frail, chronically ill. HEENT: Atraumatic, normocephalic. Pupils equal and reactive to light. Vision and hearing grossly intact. Pulm: Moderate air movement with some bibasilar crackles, no rales or wheezing. Symmetrical chest rise. No increase work of breathing. No respiratory distress. Cardiac: RRR, -mrg. Radial pulses intact and symmetrical. Abdominal: Nontender, nondistended, soft. BS present. Extremities: Dry, no edema appreciated. Feet with wound dressing in place, C/D/I. Pulse intact bilaterally. Results & Data Results & Data ([facility]) Vital Signs (Past 12 Hours) Vital Signs Temp Pulse Pulse Resp BP Pulse Ox 08/15/21 16:02 36.3 C L 73 20 150/71 H 100 08/15/21 14:36 86 18 96 08/15/21 12:57 36.3 C L 89 20 163/72 H 95 08/15/21 11:14 87 18 97 08/15/21 08:32 36.7 C 102 H 18 161/77 H 95 08/15/21 07:17 92 H 18 96 08/15/21 07:14 86 PG Care Time/CCT Total # of Minutes Spent Total Time Spent with Patient: Total time spent is greater than 50% in coordination of care (as documented) at patient's floor/unit and/or counseling patient: Coding Level of Care Code 35405 Subseq Hosp Care Lvl 1 Diagnoses Acute hyperkalemia E87.5 Acute on chronic respiratory failure with hypoxia J96.21 Acute exacerbation of chronic obstructive pulmonary disease J44.1 Hypoxia R09.02 CAD (coronary artery disease) I25.10 Pressure ulcer of both feet, stage 2 L89.892 CHF (congestive heart failure) I50.33 Heart failure chronicity: acute on chronic Heart failure type: diastolic Severe protein-calorie malnutrition E43 Opioid dependence F11.20 GERD (gastroesophageal reflux disease) K21.9 Hyperlipidemia LDL goal <70 E78.5 Hypertension I10 Chronic kidney disease, stage 4 (severe) N18.4 (1) CHF (congestive heart failure) Heart failure chronicity: acute on chronic Heart failure type: diastolic Qualified Code(s): I50.33 - Acute on chronic diastolic (congestive) heart failure
[2021-08-15] MEDS: MIRTAZAPINE TAB 15 MG TAB PO SCH (21:39)
[2021-08-15] MEDS: TAMSULOSIN HCL 0.4 MG CAP PO SCH (21:39)
[2021-08-16] MEDS: HYDROCODONE/ACETAMOPHEN 5/325MG TAB PO PRN ×2 (04:05→10:07)
[2021-08-16] MEDS: HYDROmorphone INJ 0.5 MG/0.5 ML SYR IV PRN ×2 (06:03→11:53)
[2021-08-16] MEDS: ALBUT/IPRATROP 3MG/0.5MG NEB 3 ML VIAL NEB SCH ×3 (07:12→15:45)
[2021-08-16] MEDS ORDERED: predniSONE 20 MG TAB PO SCH (09:00)
[2021-08-16] MEDS: ASPIRIN 81 MG ECTAB PO SCH (09:05)
[2021-08-16] MEDS: THIAMINE HCL 100 MG TAB PO SCH (09:05)
[2021-08-16] MEDS: METOPROLOL SUCC 50MG EXT REL TAB PO SCH (09:05)
[2021-08-16] MEDS: CYANOCOBALAMIN 500 MCG TABLET (VITAMIN B-12) PO SCH (09:05)
[2021-08-16] MEDS: ATORVASTATIN 40 MG TAB PO SCH (09:06)
[2021-08-16] MEDS: MAGNESIUM OXIDE 400 MG TAB PO SCH (09:06)
[2021-08-16] MEDS: PRIMIDONE 50 MG TAB PO SCH (09:06)
[2021-08-16] MEDS: MULTIVITAMIN TAB PO SCH (09:06)
[2021-08-16] MEDS: amLODIPine BESYLATE 5 MG TAB PO SCH (09:06)
[2021-08-16] MEDS: VENLAFAXINE HCL XR 37.5 MG CAPXR PO SCH (09:06)
[2021-08-16] MEDS: APIXABAN 5 MG TABLET PO SCH (09:06)
[2021-08-16] MEDS: guaiFENesin 600 MG TABCR PO SCH (09:07)
[2021-08-16] MEDS: FOLIC ACID 400 MCG TAB PO SCH (09:07)
[2021-08-16] MEDS: PANTOprazole 40 MG TAB PO SCH (09:07)
[2021-08-16] MEDS: UMECLIDINIUM BROMIDE 62.5MCG/BLISTER 7 PUFFS/INHALER INH SCH (09:11)
[2021-08-16] MEDS: PATIROMER CALCIUM SORBITEX 8.4 GM PACK PO SCH (11:54)
[2021-08-16] MEDS ORDERED: ALUMINUM/MAGNESIUM SUSP 30 ML UDC PO STA (14:14)
[2021-08-16 15:06] VITALS: TEMP 97.7
[2021-08-16 15:46] VITALS: PULSE 60; O2SAT 98
[2021-08-16 16:24] VITALS: BP 164/83
--- NOTE | 2021-08-17 08:13 | Discharge Summary ---
Date of Service August 16, 2021 Principal Diagnosis acute hyperkalemia Discharge Data Allergies Allergy/AdvReac Type Severity Reaction Status Date / Time cefuroxime Allergy Intermediate rash Verified 08/10/21 14:03 lisinopril Allergy Mild itching Verified 08/10/21 14:03 Consultations 08/11/21 06:55 ED Decision to Admit Stat 08/11/21 18:25 Consult Nephrology Routine Ordered Studies 08/14/21 07:37 CT chest diagnostic wo con Urgent Hospital Course (1) Acute hyperkalemia: Disposition: Patient pending discharge home with hospice, waiting for hospice services to be arranged. - 08/14/21 Goals of care: Extensive goals of care discussion was had with patient and in conference call with both of his daughters Allison and Sonja. Patient CT noncontrast scan was normal, patient with tachycardia, anxiety, left rib discomfort worse with inspiration today, and oxygen requirements persistent and not improving with COPD treatment. CTA unable to be performed due to kidney injury/CKD, D-dimer positive. Wells score 7.5 points, high risk for PE. Discussed risk/benefits of various treatment options including further diagnostic work-up and treatment with patient and his family. At this point his kidney function is relatively unchanged, severely impaired at baseline. Dialysis would likely severely impair his quality of life, and would place a significant burden on his body. Patient acknowledges this and reports dialysis is not something that he would want. In addition should he arrest CPR/intubation would likely be debilitating to him, to which patient agrees. Given his progressive COPD, and underlying comorbidities including protein calorie malnutrition, panic attacks with narrow pulmonary reserve, and CAD options for palliative care and hospice were discussed. Patient does not like the term hospice, but does report that his goals would be to remain out of the hospital at home and to treat his symptoms with medications such as Ativan/morphine to keep him comfortable even if this were to shorten his life if it preserve the quality of his life and kept him at home. He reports he has extensive services at home, and does not feel he needs someone in and out to check on him, but is agreeable to hospice referral and would like to have resources available to him at home. Expresses that he would like his shortness of breath and symptoms treated symptomatically at home, and would not want readmission to the hospital in the future. Agrees that he would not want CPR or dialysis or further diagnostic treatment at this time. He expresses frustration with his overall medical condition, but cites comfort and being home as his primary goals. He notes that his had recently passed on hospice, and also had a blood clot which is scary to him. Discussed at this time will treat empirically with apixaban for likely blood clot, and understands this puts him at a risk of bleeding. Will treat shortness of breath with oxygen and Ativan, and pain with low-dose hydromorphone as indicated. Will defer additional labs at this time. Anticipate discharge home possibly tomorrow on hospice services available. - Continue Apixaban 5mg BID - Ativan 0.5mg IV Q4H PRN for anxiety/dyspnea - Hydromorphone 0.5mg q6h for pain - DNR/DNI Code Status - Does not wish to pursue dialysis/aggressive diagnostics/treatments - Potassium treatment as below Potassium was 6.2 upon admission. ? Medication effect versus volume depletion vs breakdown -08/11: He received from the ED Lasix 20 mg IV, D50 followed by 10 of regular insulin IV, calcium gluconate 1 g IV, and NSS 250 mls.Repeat BMP with up trended potassium 08/11-day time: started on lactulose, given additional insulin/D50, and NSS bolus with insulin. While he has a history of CHF and elevated BNP he is clinically hypovolemic and does not show evidence of congestion on CXR. Additional fluid bolus with low-dose Lasix given. Veltassa given, 1 dose today, 2 dose ordered. Additional 1 g calcium gluconate given Following NSS bolus patient with a acute episode of shortness of breath and difficulty breathing initially concerning for flash pulmonary edema, chest x-ray obtained at time of episode appeared slightly improved from prior without overt edema, patient rapidly improved back to baseline with Nitropaste/BiPAP/Lasix, although had minimal urine output.? Whether this was pulmonary edema from fluid bolus versus tachycardia/panic induced following his nebulizer. Given the patient had minimal urine output, continue to appear clinically dry, and had a relatively clear x-ray is placed on half-normal maintenance fluids at a rate of 100 cc.EKG was obtained and showed slight repolarization changes, patient was transferred to PCU. Signout was given to evening resident. Overnight patient with up trended potassium,Patient was about to get an additional fluid bolus, but had worsened breathing and repeat x-ray showed interval increase in pulmonary congestion/edema this was deferred. Pat ient clinically improved with BiPAP, but with persistent hyperkalemia. Respiratory administered 20 mg albuterol patient was given additional dose of Veltassa. Patient was also given calcium, ordered Lasix, and BMPs were trended. Nephrology is consulted. Continue Veltassa, monitor I's and O's, if remains greater than 6 add every 8 hour monitoring give Bumex 1 mg IV x1 dose per nephrology. Appreciate recommendations. CK negative, foot maxwell without signs of tissue necrosis, no evidence of rhabdo/cellular breakdown contributing 08/13: Patient potassium improved to 5.4, slight uptrend to 5.7. Continue lactulose. Continue to trend. Creatinine beginning to downtrend. Continue every q6 hours BMP - 08/14: 5.4. Continue lactulose, patiromer. Anticipate d/c on discharge home with hospice on 08/16: discharged home on hospice. Instructions noted below stopped anticoagulation as no signs of pulonary emboli (2) Acute on chronic respiratory failure with hypoxia: - At last admission from 07/25-08/04 was noted to be in CHF exacerbation. - Wells score HIGH RISK 40%. D-Dimer positive. Unable to CTA due to CKD. VQ/diagnostics deferred on risk/benefit tx above - Apixaban 5mg BID empiric (stopped at discharge) no evidence of P/E. - BNP 9215 See above regarding chest x-ray and concern for pulmonary edema - Continue home COPD meds (3) Acute exacerbation of chronic obstructive pulmonary disease: -Received methylprednisolone 125 mg IV in the ED -Methylprednisolone 40 mg IV every 8 hours switch to every 12 hours 08/13 - Taper prednisone 10mg daily - Azithromycin 500 mg IV x1, 250mg x 4 days -Guaifenesin extended release 1200 mg p.o. twice daily -Duonebs every 4 hours while awake and every 2 hours when necessary. - Not improved with COPD tx, no wheezing today, Current presentation/hypoxia not consistent with COPD, suspect PE as noted (4) Hypoxia: -Nasal cannula oxygen, titrate to keep pulse ox 92 to 94% (5) CAD (coronary artery disease): -Continue to hold Amlodipine resumed - Continue aspirin, metoprolol succinate (6) Pressure ulcer of both feet, stage 2: Wound care consult (7) CHF (congestive heart failure): See above (8) Severe protein-calorie malnutrition: Continue home supplementation: Vitamin B12, ferrous sulfate, folic acid and thiamine (9) Opioid dependence: - On Lyman PRN x10 years reportedly for arthritis, will continue - Continue primidone for essential tremor (10) GERD (gastroesophageal reflux disease): Continue omeprazole/pantoprazole (11) Hyperlipidemia LDL goal <70: Continue atorvastatin (12) Hypertension: See above (13) Chronic kidney disease, stage 4 (severe): Creatinine 2.63 upon admission, with range 2.28-2.88 Uptrending on admission, 08/12 was 3.07 See goals of care above Additional BMP deferred Total Time Total Time Spent Total Time Spent (In Minutes): 32 Discharge Plan Discharge Items Patient Disposition: Hospice - Home Reason For Visit: COPD EXACERBATION,HYPOXIA,HYPERKALEMIA Discharge Diagnosis: Hypoxic respiratory failure 2/2 COPD, suspected pulmonary embolism Chronic kidney disease Hyperkalemia Activity: Per Instructions section Non-emergency contact: Primary Care Provider Call non-emergency contact if: you have any medication questions, your symptoms worsen, your pain is not controlled, your pain is worsening and your pain is unusual for you Follow-up/Referrals: Susan Feldman PA-C [Physician Camera Person] - 08/23/21 3:00 pm Diet: Regular Addtl Attending Provider Instructions: You are seen in the hospital for shortness of breath and acute hypoxic respiratory failure. Initially treated for COPD exacerbation without improvement in your symptoms. You were noted to have chronic kidney disease which worsened during admission, your case was discussed and reviewed with nephrology. On rare/benefits discussion it was felt that dialysis would significantly harm your quality of life, and could potentially hasten . Symptomatic treatment and hospice was discussed. You had a increased oxygen requirement during admission, you are being discharged home to continue using oxygen with additional symptomatic treatment and hospice services as below. I will place you on Bumex every other day. However, if you are feeling too dry, you can skip the dose. Will defer to hospice if further kidney testing is required. After discussion today with Mr. Hilton, do not feel there is much benefit to starting him on a blod thinning medication, given that his imaging shows evidence of fuid, and his long standing COPD as well as normal lower extremity ultrasound which did not show any evidence of a BLOOD CLOT. You have had an adjustment in your medication for panic attacks/anxiety, lorazepam. Please take lorazepam 1 mg by mouth 3 times daily as needed for panic attacks. If you have additional panic attacks or shortness of breath, please contact your primary care or hospice provider for adjustments in this medication.These note this medication at certain doses doses can suppress breathing, this should be titrated and follow carefully by hospice and or primary care physician. You should have some supply left as this was prescribed just last month. You have been prescribed a steroid taper for potential shortness of breath from COPD. Please take prednisone as follows below: 08/17: Prednisone 40mg by mouth daily 08/18: Prednisone 30mg by mouth daily 08/19: Prednisone 20mg by mouth daily 08/20: Prednisone 10mg by mouth daily Several of your medications prevent long-term health issues, or medical issues that you may not feel symptoms from. It is reasonable to stop these medications if they are bothersome to you, have side effects, and/or to reduce pill burden to be more comfortable. Medications that you may discontinuing/discontinue amlodipine, aspirin, and your folic acid vitamin. Your primary care physician and hospice provider can give additional recommendations on which medicines are likely to make you feel better versus which can be eliminated for comfort/improved quality of life. A followup appointment is being scheduled for you with hospice services in your primary care physician. If you do not receive a call from your primary physician for follow-up or virtual follow-up, please contact their office at the phone number above. If you develop any new or worsening symptoms including fever, chills, sweats, chest pain, chest pressure, shortness of breath, difficulty breathing, uncontrolled nausea/vomiting, rash, wheezing, passing out or nearly passing out, bleeding, black/bloody bowel movements, or other new or concerning symptoms ple ase call your primary care physician or hospice physician. Pending Studies at Discharge: No Stand-Alone Forms: My [facility] [address] Medications and DC Order Prescriptions: New prednisone 10 mg tablet 10 mg PO DAILY Qty: 10 RF: 0 albuterol sulfate 90 mcg/actuation HFA aerosol inhaler 1 inh inhalation Q6H PRN (Reason: shortness of breath or wheezing) Qty: 8.5 RF: 0 Continued primidone 50 mg tablet 50 mg PO BID Qty: 180 RF: 3 omeprazole 40 mg capsule,delayed release(DR/EC) 40 mg PO DAILY Qty: 90 RF: 3 folic acid 800 mcg tablet 800 mcg PO QAM Qty: 30 RF: 0 atorvastatin 40 mg tablet 40 mg PO DAILY Qty: 90 RF: 3 metoprolol succinate [Toprol XL] 100 mg tablet extended release 24 hr 100 mg PO DAILY Qty: 90 RF: 3 mirtazapine 30 mg tablet 30 mg PO QPM Qty: 90 RF: 3 tamsulosin 0.4 mg capsule 0.4 mg PO QPM Qty: 90 RF: 3 amlodipine 5 mg tablet 5 mg PO DAILY Qty: 90 RF: 3 multivitamin [Daily Multi-Vitamin] Tablet 1 tab PO DAILY RF: 0 losartan 25 mg tablet 25 mg PO DAILY Qty: 90 RF: 3 venlafaxine 37.5 mg capsule,extended release 24hr 37.5 mg PO QAM 30 Days Qty: 90 RF: 3 hydrocodone-acetaminophen 10-325 mg tablet 1 tab PO Q6H PRN (Reason: pain) Qty: 120 RF: 0 aspirin 81 mg tablet,delayed release (DR/EC) 81 mg PO QAM RF: 0 cyanocobalamin (vitamin B-12) [Vitamin B-12] 1,000 mcg tablet 1,000 mcg PO QAM RF: 0 nitroglycerin 0.4 mg tablet, sublingual 0.4 mg sublingual DIRECTED PRN (Reason: Chest Pain) RF: 0 ferrous sulfate 325 mg (65 mg iron) Tablet,Delayed Release (Dr/Ec) 325 mg PO QAM Qty: 30 RF: 0 thiamine HCl (vitamin B1) [Vitamin B-1] 100 mg Tablet 100 mg PO QAM Qty: 30 RF: 0 Incruse Ellipta 62.5 mcg/actuation Blister With Device 1 inh inhalation DAILY Qty: 30 RF: 0 Breo Ellipta 200-25 mcg/dose Blister With Device 1 ea inhalation DAILY Qty: 28 RF: 0 Changed bumetanide 1 mg tablet 1 mg PO Q2D Qty: 90 RF: 3 Discontinued lorazepam 0.5 mg tablet 0.5 mg PO BID PRN (Reason: anxiety) Qty: 60 RF: 0 No Action lorazepam 0.5 mg tablet 0.5 mg PO TID PRN (Reason: anxiety) Qty: 90 RF: 0 Discharge Orders: Discharge Order (Routine); Ordered 08/16/21 Ordered By: Blaise Ruiz Admission Data Admit Date/Time: 08/11/21 06:30 Attending Provider: Blaise Ruiz Admit Provider: Praneeth Tejada Primary Care Provider: Юлия Harvey Other Providers: Praneeth Tejada ; Nayana Garcia Other Interventions: Discharge Summary Assessment (RN) Last Done: 08/16/21 16:23 Coding Level of Care Code D/C DAY MANAGEMENT >30 MINS Diagnoses Acute hyperkalemia E87.5 Acute on chronic respiratory failure with hypoxia J96.21 Acute exacerbation of chronic obstructive pulmonary disease J44.1 Hypoxia R09.02 CAD (coronary artery disease) I25.10 Pressure ulcer of both feet, stage 2 L89.892 CHF (congestive heart failure) I50.33 Heart failure chronicity: acute on chronic Heart failure type: diastolic Severe protein-calorie malnutrition E43 Opioid dependence F11.20 GERD (gastroesophageal reflux disease) K21.9 Hyperlipidemia LDL goal <70 E78.5 Hypertension I10 Chronic kidney disease, stage 4 (severe) N18.4
== END 2021-08-16 17:29 | disposition hospice, home (50) | DRG 189 ==
LOC: ED 03:27 → 2W 06:30 → SUATTDRO 06:30 → 2W 08:40 → 2S 18:54

== ENCOUNTER 2021-09-15 01:05 | Inpatient (IN) ==
[2021-09-15] MEDS ORDERED: HYDROcodone/ACETAMINOPHEN 10/325 TAB PO STA (01:37)
--- NOTE | 2021-09-15 01:40 | Emergency Department Note ---
Impression & Plan Pulmonary edema, Acute hyperkalemia Patient will be evaluated by the [facility] hospitalist for admission ED Provider Note NAME: MEDARDO AARON AGE: 81 SEX: M ARRIVES VIA: Ambulance INFORMANT: Patient ED PROVIDER(S): Natasha Rowe DO CHIEF COMPLAINT: Lower extremity edema and increasing shortness of breath PLAN: Disposition: The patient will be admitted by the [facility]ist Condition: Stable MEDICAL DECISION MAKING: This is a 81-year-old male patient with history of COPD who presents to the emergency department with lower extremity edema and increasing shortness of breath. Patient received Solu-Medrol and a DuoNeb treatment by EMS and follow-up some improvement. Laboratory studies revealed a BNP greater than 25,000 and chest x-ray showed pulmonary edema with a significant right sided pleural effusion. Patient was noted to be significantly hyperkalemic. She received IV Lasix, IV dextrose and IV insulin. There were no EKG changes. I discussed the case with the [facility]ist and they will evaluate for further management. Triage Nursing notes reviewed and agree with them. Prior medical records reviewed Vital Signs: reviewed and remarkable for hypertension Differential diagnosis: Pneumonia, COPD exacerbation, CHF, pneumothorax, hypoxia ER treatment provided: IV Lasix IV insulin IV dextrose Diagnostics interpreted by me: ECG: Normal sinus rhythm at a rate of [address] segment elevation or signs of ischemia. There is no ectopy. Cardiac Monitoring: Normal sinus rhythm at a rate of 78 Laboratory studies: See below Imaging studies: As per my interpretation Portable chest x-ray: Moderate pulmonary edema with a large right-sided pleural effusion HPI: 81/M arrives for evaluation of increasing shortness of breath and leg swelling. Patient became concerned tonight when he had increasing shortness of breath. He has noticed that his legs have had increased swelling over the past couple of weeks. He complains of bilateral lower extremity pain and low back pain. He has missed his dose of Lortab. ROS: See above HPI for pertinent positives & negatives. A total of 10 systems reviewed and were otherwise negative. PAST MEDICAL HISTORY:See Below PAST SURGICAL HISTORY:See Below FAMILY HISTORY:See Below SOCIAL HISTORY:See Below HOME MEDICATIONS:See Below ALLERGIES:See Below VITALS:See Below PHYSICAL EXAMINATION: HEENT: Head - normocephalic and atraumatic Pupils are equal, round, and reactive to light. Extraocular eye muscles are intact, and sclera are anicteric. Nose - moist nasal mucosa without discharge. Mouth - moist buccal mucosa. Oropharynx is nonerythematous and there is no tonsillar exudate or edema noted. Neck: Supple; no JVD, nuchal rigidity, cervical lymphadenopathy, or auscultated bruits. Heart: Regular rate and rhythm. There is a normal S1 and S2 with no murmurs, clicks, or gallops appreciated. Lungs: Clear to auscultation bilaterally with no wheezes, rales, or rhonchi. Abdomen: Soft, completely nontender, nondistended, with good bowel sounds. There are no palpable pulsatile masses or hepatosplenomegaly. There is no guarding, rigidity, or rebound noted. Extremities: Pitting edema to the patient's knees. Peripheral pulses were easy to palpate. Skin: Pale, warm and dry with good turgor and no rashes. ED COURSE: Times/Reassessments: 0125: Patient was evaluated in room C7. A complete history and physical was performed. An order was placed for continuous cardiac monitoring. The patient was in a normal sinus rhythm at a rate of 78. Twelve-lead EKG was obtained. Laboratory studies were drawn as above. A portable chest x-ray was performed. Patient was given 40 mg of IV Lasix. Because potassium level was so high, he was given 10 mg of IV insulin and an amp of D50. I discussed the case with the [facility] hospitalist and they will evaluate for further management. I have personally spent greater than 30 minutes of critical care time in the direct management of this patient. This includes bedside care, interpretation of diagnostic studies, and testing, discussion with consultants, patient, and family members, and other required patient management activities. This 30 min utes is in excess of all separately billable procedures. Natasha Rowe DO Past Med/Surg History Medical History AAA (abdominal aortic aneurysm) Acute hypoxemic respiratory failure Anemia of chronic disease Anxiety Bilateral pleural effusion CAD (coronary artery disease) PTCA with stent of RCA 1994 Chronic kidney disease, stage 4 (severe) Chronic pain Chronic renal insufficiency 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 exacerbation Essential tremor GERD (gastroesophageal reflux disease) Hyperlipidemia LDL goal <70 Hypertension Lower urinary tract symptoms (LUTS) Multiple rib fractures Opioid dependence treated with opiates for chronic low back pain for 10+ years Septal myocardial infarction SOB (shortness of breath) Tobacco abuse counseling Vitamin B12 deficiency Surgical History H/O heart artery stent (~1994) Family History Denies family history of Ovarian cancer Prostate cancer Myocardial infarction Breast cancer Colorectal cancer Social History Smoking Status: Former smoker Tobacco Type: Cigarettes Cigarettes Per Day: 10; Second Hand Exposure: No; Hx Alcohol Use: No Hx Substance Use: No Preferred Language: Danish Communication Ability: Effective Visual Impairment: No Limitations Hearing Ability: Normal Car Driver Required: No Beliefs That Will Affect Care: None marital status: Current Living Situation: Alone Current Living Situation Comment: Alone at home in apartment after of in March current occupational status: 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 many Children do You have: 1 Feels Safe at Home: Yes Childhood Exposure to Second-Hand Smoke: Yes Dental Care, Regularly: No Physical Activity Frequency: Does not Exercise Seatbelt Use: always Sunscreen Use: No (doesn't really go outside ) Assistive Devices: Oxygen - Continuous Allergies Allergies Allergy/AdvReac Type Severity Reaction Status Date / Time cefuroxime Allergy Intermediate rash Verified 09/15/21 02:19 lisinopril Allergy Mild itching Verified 09/15/21 02:19 Home Meds Home Medications Medication Instructions Recorded Confirmed aspirin 81 mg tablet,delayed 81 mg PO QAM 05/06/19 09/15/21 release cyanocobalamin (vitamin B-12) 1,000 mcg PO QAM 05/06/19 09/15/21 1,000 mcg tablet (Vitamin B-12) nitroglycerin 0.4 mg sublingual 0.4 mg SUBLINGUAL DIRECTED PRN 05/06/19 09/15/21 tablet multivitamin (Daily Multi-Vitamin) 1 tab PO DAILY 05/28/21 09/15/21 Previous Rx's Medication Instructions Recorded ferrous sulfate 325 mg (65 mg 325 mg PO QAM #30 tab 03/21/19 iron) tablet,delayed release thiamine HCl (vitamin B1) 100 mg 100 mg PO QAM #30 tab 03/21/19 tablet (Vitamin B-1) primidone 50 mg tablet 50 mg PO BID #180 tab 10/12/20 omeprazole 40 mg capsule,delayed 40 mg PO DAILY #90 cap 12/30/20 release amlodipine 5 mg tablet 5 mg PO DAILY #90 tab 05/26/21 atorvastatin 40 mg tablet 40 mg PO DAILY #90 tab 05/26/21 metoprolol succinate 100 mg 100 mg PO DAILY #90 tab 05/26/21 tablet,extended release 24 hr (Toprol XL) mirtazapine 30 mg tablet 30 mg PO QPM #90 tab 05/26/21 tamsulosin 0.4 mg capsule 0.4 mg PO QPM #90 cap 05/26/21 folic acid 800 mcg tablet 800 mcg PO QAM #30 tab 07/22/21 fluticasone furoate 200 1 ea INHALATION DAILY #28 ea 08/04/21 mcg-vilanterol 25 mcg/dose inhalation powder (Breo Ellipta) losartan 25 mg tablet 25 mg PO DAILY #90 tab 08/10/21 venlafaxine 37.5 mg 37.5 mg PO QAM 30 Days #90 cap 08/10/21 capsule,extended release 24 hr albuterol sulfate 90 mcg/actuation 1 inh INHALATION Q6H PRN #8.5 g 08/16/21 aerosol inhaler bumetanide 1 mg tablet 1 mg PO Q2D #90 tab 08/16/21 prednisone 10 mg tablet 10 mg PO DAILY #10 tab 08/16/21 hydrocodone 10 mg-acetaminophen 2 tab PO Q6H PRN #120 tab MDD 8 09/01/21 325 mg tablet tabs lorazepam 0.5 mg tablet 0.5 mg PO TID PRN #90 tab 09/03/21 umeclidinium 62.5 mcg/actuation 1 inh INHALATION DAILY #30 ea 09/09/21 blister powder for inhalation (Incruse Ellipta) Results & Data (ED) Vital Signs Vital Signs - 24 hr 09/15/21 01:15 09/15/21 01:16 09/15/21 01:37 Temperature 36.9 C Temperature Source Oral Pulse Rate 78 77 Pulse Rate [Apical] Respiratory Rate 24 20 Respiratory Effort / Characteristics Spontaneous Short of Breath Spontaneous Short of Breath Respiratory Depth Normal Normal Blood Pressure 161/101 H Blood Pressure [Right Arm] Blood Pressure Mean 121 Blood Pressure Mean [Right Arm] Pulse Oximetry 99 99 95 Oxygen Delivery Method Nasal Cannula Nasal Cannula Nasal Cannula Oxygen Flow Rate 8 6 4 Sepsis Recent Fever Within 48 Hours No Sepsis New/Unexplained Change in Mental Status No Sepsis Action Taken by Nursing No Action Required Oxygen Flow Rate - Titration 4 Pulse Oximetry Post Tiitration 97 09/15/21 03:00 Temperature Temperature Source Pulse Rate Pulse Rate [Apical] 93 H Respiratory Rate 20 Respiratory Effort / Characteristics Non-Labored Spontaneous Respiratory Depth Normal Blood Pressure Blood Pressure [Right Arm] 158/78 H Blood Pressure Mean Blood Pressure Mean [Right Arm] 104 Pulse Oximetry 97 Oxygen Delivery Method Nasal Cannula Oxygen Flow Rate 4 Sepsis Recent Fever Within 48 Hours Sepsis New/Unexplained Change in Mental Status Sepsis Action Taken by Nursing Oxygen Flow Rate - Titration Pulse Oximetry Post Tiitration Laboratory Data Result diagrams: 09/15/21 01:05 09/15/21 01:05 Lab Results 09/15/21 09/15/21 09/15/21 Range/Units 01:05 01:05 02:15 WBC 7.95 (4.8-10.8) K/uL RBC 2.27 L (4.7-6.1) M/uL Hgb 7.5 L (14.0-18.0) g/dL Hct 24.1 L (42-52) % MCV 106.2 H (80-100) fL MCH 33.0 (25-34) pg MCHC 31.1 L (32-36) g/dL RDW Std Deviation 59.8 H (36.4-46.3) fL RDW Coeff of Lucas 15.4 H (11.5-14.5) % Plt Count 525 H (130-400) K/uL MPV 9.6 (7.4-10.4) fL Immature Gran % (Auto) 0.3 % Neut % (Auto) 71.5 % Lymph % (Auto) 19.4 % Archer % (Auto) 6.9 % Eos % (Auto) 1.6 % Baso % (Auto) 0.3 % Neut # (Auto) 5.69 (1.4-6.5) K/uL Lymph # (Auto) 1.54 (1.2-3.4) K/uL Archer # (Auto) 0.55 (0.11-0.59) K/uL Eos # (Auto) 0.13 (0-0.5) K/uL Baso # (Auto) 0.02 (0-0.2) K/uL Immature Gran # (Auto) 0.02 (0.00-0.02) K/uL RBC Morphology Unremarkable Sodium 140 (136-145) mmol/L Potassium 6.6 H* (3.5-5.1) mmol/L Chloride 114 H (98-107) mmol/L Carbon Dioxide 27 (21-32) mmol/L Anion Gap -1.0 L (3-11) BUN 59 H (7-18) mg/dl Creatinine 2.48 H (0.6-1.4) mg/dl Est Cr Clr Drug Dosing 22.5 ml/min Est GFR ( Amer) 27.5 ml/min Est GFR (Non-Af Amer) 23.8 ml/min BUN/Creatinine Ratio 23.7 H (10-20) Glucose 98 (70-99) mg/dl Calcium 8.5 (8.5-10.1) mg/dl Total Bilirubin < 0.1 L (0.2-1) mg/dl AST 11 L (15-37) U/L ALT 22 (12-78) Alkaline Phosphatase 85 (45-117) U/L Troponin I < 0.015 (0-0.045) ng/ml NT-Pro-B Natriuret Pep 54156 H (0-1800) pg/ml Total Protein 6.9 (6.4-8.2) gm/dl Albumin 2.6 L (3.4-5.0) gm/dl Globulin 4.3 H (2.5-4.0) gm/dl Albumin/Globulin Ratio 0.6 L (0.9-2) SARS-CoV-2, RNA, NAAT NEGATIVE (NEGATIVE) Administered Medications Discontinued Medications Hydrocodone Bitart/Acetaminophen (Hydrocodone/Acetaminophen 10/325 Tab) 1 tab PO NOW STA Stop: 09/15/21 01:38 Last Admin: 09/15/21 01:43 Dose: 1 tab Documented by: [id number] Dextrose (Dextrose 50% 50 Ml Syringe) 50 ml IV NOW ONE Stop: 09/15/21 02:41 Last Admin: 09/15/21 02:48 Dose: 50 ml Documented by: [id number] Furosemide (Furosemide 40 Mg/4 Ml Vial) 40 mg IV ONE ONE Stop: 09/15/21 02:41 Last Admin: 09/15/21 02:48 Dose: 40 mg Documented by: [id number] Insulin Human Regular (Novolin-R Insulin Per Unit Charge) 10 units IV NOW STA Stop: 09/15/21 02:41 Last Admin: 09/15/21 02:48 Dose: 10 units Documented by: [id number] Cosigned by: [id number] Discharge Plan Visit Data Chief Complaint: Respiratory Distress Stated Complaint: RESP DISTESS ED Provider: Natasha Rowe Discharge Problem: Pulmonary edema, Acute hyperkalemia Forms Stand Alone Forms: [facility] [employer] Prescriptions Prescriptions: No Action primidone 50 mg tablet 50 mg PO BID Qty: 180 RF: 3 omeprazole 40 mg capsule,delayed release(DR/EC) 40 mg PO DAILY Qty: 90 RF: 3 folic acid 800 mcg tablet 800 mcg PO QAM Qty: 30 RF: 0 hydrocodone-acetaminophen 10-325 mg tablet 2 tab PO Q6H MDD 8 tabs PRN (Reason: pain) Qty: 120 RF: 0 lorazepam 0.5 mg tablet 0.5 mg PO TID PRN (Reason: anxiety) Qty: 90 RF: 0 Incruse Ellipta 62.5 mcg/actuation blister with device 1 inh inhalation DAILY Qty: 30 RF: 5 atorvastatin 40 mg tablet 40 mg PO DAILY Qty: 90 RF: 3 metoprolol succinate [Toprol XL] 100 mg tablet extended release 24 hr 100 mg PO DAILY Qty: 90 RF: 3 mirtazapine 30 mg tablet 30 mg PO QPM Qty: 90 RF: 3 tamsulosin 0.4 mg capsule 0.4 mg PO QPM Qty: 90 RF: 3 amlodipine 5 mg tablet 5 mg PO DAILY Qty: 90 RF: 3 multivitamin [Daily Multi-Vitamin] Tablet 1 tab PO DAILY RF: 0 losartan 25 mg tablet 25 mg PO DAILY Qty: 90 RF: 3 venlafaxine 37.5 mg capsule,extended release 24hr 37.5 mg PO QAM 30 Days Qty: 90 RF: 3 aspirin 81 mg tablet,delayed release (DR/EC) 81 mg PO QAM RF: 0 cyanocobalamin (vitamin B-12) [Vitamin B-12] 1,000 mcg tablet 1,000 mcg PO QAM RF: 0 nitroglycerin 0.4 mg tablet, sublingual 0.4 mg sublingual DIRECTED PRN (Reason: Chest Pain) RF: 0 ferrous sulfate 325 mg (65 mg iron) Tablet,Delayed Release (Dr/Ec) 325 mg PO QAM Qty: 30 RF: 0 thiamine HCl (vitamin B1) [Vitamin B-1] 100 mg Tablet 100 mg PO QAM Qty: 30 RF: 0 Breo Ellipta 200-25 mcg/dose Blister With Device 1 ea inhalation DAILY Qty: 28 RF: 0 prednisone 10 mg tablet 10 mg PO DAILY Qty: 10 RF: 0 albuterol sulfate 90 mcg/actuation HFA aerosol inhaler 1 inh inhalation Q6H PRN (Reason: shortness of breath or wheezing) Qty: 8.5 RF: 0 bumetanide 1 mg tablet 1 mg PO Q2D Qty: 90 RF: 3 Referrals Referrals: Юлия Harvey MD [Primary Care Provider] - Discharge Problem: Pulmonary edema Qualifiers: Chronicity: acute Qualified Code(s): J81.0 - Acute pulmonary edema
[2021-09-15 01:57] LABS: Basophils # (auto) 0.02 K/uL (0-0.2); Basophils % (auto) 0.3 %; Eosinophils # (auto) 0.13 K/uL (0-0.5); Eosinophils % (auto) 1.6 %; Hematocrit (blood only) 24.1 % (42-52); Hemoglobin 7.5 g/dL (14.0-18.0); Immature Granulocytes # (auto) 0.02 K/uL (0.00-0.02); Immature Granulocytes % (auto) 0.3 %; Lymphocytes # (auto) 1.54 K/uL (1.2-3.4); Lymphocytes % (auto) 19.4 %; Mean Corpuscular Hgb Conc 31.1 g/dL (32-36); Mean Corpuscular Volume 106.2 fL (80-100); Mean Platelet Volume 9.6 fL (7.4-10.4); Monocytes # (auto) 0.55 K/uL (0.11-0.59); Monocytes % (auto) 6.9 %; Neutrophils # (auto) 5.69 K/uL (1.4-6.5); Neutrophils % (auto) 71.5 %; Platelet Count 525 K/uL (130-400); RDW Coefficient of Variation 15.4 % (11.5-14.5); RDW Standard Deviation 59.8 fL (36.4-46.3); Red Blood Count 2.27 M/uL (4.7-6.1); White Blood Count 7.95 K/uL (4.8-10.8)
[2021-09-15 02:16] LABS: Alanine Aminotransferase 22 (12-78); Albumin Globulin Ratio 0.6 (0.9-2); Albumin Level 2.6 gm/dl (3.4-5.0); Alkaline Phosphatase 85 U/L (45-117); Aspartate Aminotransferase 11 U/L (15-37); BUN Creatinine Ratio 23.7 (10-20); Bilirubin,Total < 0.1 mg/dl (0.2-1); Blood Urea Nitrogen 59 mg/dl (7-18); Calcium 8.5 mg/dl (8.5-10.1); Carbon Dioxide 27 mmol/L (21-32); Chloride 114 mmol/L (98-107); Creatinine Clr Calc Pharmacy 22.5 ml/min; Est GFR (African American) 27.5 ml/min; Est GFR (Non-African American) 23.8 ml/min; Globulin 4.3 gm/dl (2.5-4.0); Glucose 98 mg/dl (70-99); NT Pro B Type Natriuretic Pept 25018 pg/ml (0-1800); Potassium 6.6 mmol/L (3.5-5.1); Sodium 140 mmol/L (136-145); Total Protein 6.9 gm/dl (6.4-8.2); Troponin I < 0.015 ng/ml (0-0.045)
[2021-09-15 02:21] LABS: RBC Morphology Unremarkable
[2021-09-15] MEDS ORDERED: FUROSEMIDE 40 MG/4 ML VIAL IV ONE (02:40)
[2021-09-15] MEDS ORDERED: DEXTROSE 50% 50 ML SYRINGE IV ONE ×2 (02:40→07:15)
[2021-09-15] MEDS ORDERED: NovoLIN-R INSULIN PER UNIT CHARGE IV STA (02:40)
--- NOTE | 2021-09-15 03:16 | History & Physical Report ---
Date of Service September 15, 2021 Assessment & Plan (1) CHF (congestive heart failure): Plan: 81 yo M w/ pMHx. of CKD IV, CAD w/ septal ID, CHF, HTN, AAA, anemia of chronic disease, HLD, GERD, anxiety and COPD presenting with lower extremity edema and orthopnea admit to med/surg with tele Heart failure exacerbation unclear cause of exacerbation, no changes in diet BNP 25,000, CXR with pleural effusion on the right and 2+ pitting edema in his extremities CXR consistent with fluid overload and right sided pleura effusion - follow up formal read given 40 IV Lasix in the ER - ordered Bumex 1 mg BID - low sodium diet - follow weights and I and O's Hyperkalemia, 6.6 potentially 2/2 kidney disease - Lasix - Insulin and dextrose - low potassium diet - recheck in AM Chronic kidney disease, appears bilateral - continue to monitor cr. and fluid status Anemia, macrocytic appears at his baseline currently 7.5 hgb potentially diluted due to fluid overload - continue to monitor - ordered folate and B12 COPD - continue albuterol - continue breo ellipta CAD - continue beta awilda - continue asa, statin HTN - continue losartan and metoprolol Chronic pain - continue home hydrocodone Anxiety - continue lorazepam - continue venlafaxine, mirtazapine Diet: low sodium, low potassium DVT: lovenox Code: full History of Present Illness Chief Complaint: leg swelling Primary Care Provider: Юлия Harvey MD Usman Hilton has a past medical history significant for CKD IV, CAD, CHF, HTN, AAA, anemia of chronic disease, HLD, GERD, anxiety and COPD. He is presenting with swelling of his legs that has worsened over the last several days. He also notes that he has trouble breathing when he lays down. He has not had any changes in his diet lately and has people come in to cook for him. He has been vaccinated against COVID. He denies recent illness or changes in his medications. He was asking how long he would have to stay here before going home. ER course: Lasix, dextrose, insulin Allergies Allergy/AdvReac Type Severity Reaction Status Date / Time cefuroxime Allergy Intermediate rash Verified 09/15/21 02:19 lisinopril Allergy Mild itching Verified 09/15/21 02:19 Home Medications Medication Instructions Recorded Confirmed Type ferrous sulfate 325 mg (65 mg 325 mg PO QAM #30 tab 03/21/19 09/15/21 Rx iron) tablet,delayed release thiamine HCl (vitamin B1) 100 mg 100 mg PO QAM #30 tab 03/21/19 09/15/21 Rx tablet (Vitamin B-1) aspirin 81 mg tablet,delayed 81 mg PO QAM 05/06/19 09/15/21 History release cyanocobalamin (vitamin B-12) 1,000 mcg PO QAM 05/06/19 09/15/21 History 1,000 mcg tablet (Vitamin B-12) nitroglycerin 0.4 mg sublingual 0.4 mg SUBLINGUAL DIRECTED PRN 05/06/19 09/15/21 History tablet primidone 50 mg tablet 50 mg PO BID #180 tab 10/12/20 09/15/21 Rx omeprazole 40 mg capsule,delayed 40 mg PO DAILY #90 cap 12/30/20 09/15/21 Rx release amlodipine 5 mg tablet 5 mg PO DAILY #90 tab 05/26/21 09/15/21 Rx atorvastatin 40 mg tablet 40 mg PO DAILY #90 tab 05/26/21 09/15/21 Rx metoprolol succinate 100 mg 100 mg PO DAILY #90 tab 05/26/21 09/15/21 Rx tablet,extended release 24 hr (Toprol XL) mirtazapine 30 mg tablet 30 mg PO QPM #90 tab 05/26/21 09/15/21 Rx tamsulosin 0.4 mg capsule 0.4 mg PO QPM #90 cap 05/26/21 09/15/21 Rx multivitamin (Daily Multi-Vitamin) 1 tab PO DAILY 05/28/21 09/15/21 History folic acid 800 mcg tablet 800 mcg PO QAM #30 tab 07/22/21 09/15/21 Rx fluticasone furoate 200 1 ea INHALATION DAILY #28 ea 08/04/21 09/15/21 Rx mcg-vilanterol 25 mcg/dose inhalation powder (Breo Ellipta) losartan 25 mg tablet 25 mg PO DAILY #90 tab 08/10/21 09/15/21 Rx venlafaxine 37.5 mg 37.5 mg PO QAM 30 Days #90 cap 08/10/21 09/15/21 Rx capsule,extended release 24 hr albuterol sulfate 90 mcg/actuation 1 inh INHALATION Q6H PRN #8.5 g 08/16/21 09/15/21 Rx aerosol inhaler bumetanide 1 mg tablet 1 mg PO Q2D #90 tab 08/16/21 09/15/21 Rx prednisone 10 mg tablet 10 mg PO DAILY #10 tab 08/16/21 09/15/21 Rx hydrocodone 10 mg-acetaminophen 2 tab PO Q6H PRN #120 tab MDD 8 09/01/21 09/15/21 Rx 325 mg tablet tabs lorazepam 0.5 mg tablet 0.5 mg PO TID PRN #90 tab 09/03/21 09/15/21 Rx umeclidinium 62.5 mcg/actuation 1 inh INHALATION DAILY #30 ea 09/09/21 09/15/21 Rx blister powder for inhalation (Incruse Ellipta) Past Med/Surg History Medical History AAA (abdominal aortic aneurysm) Acute hypoxemic respiratory failure Anemia of chronic disease Anxiety Bilateral pleural effusion CAD (coronary artery disease) PTCA with stent of RCA 1994 Chronic kidney disease, stage 4 (severe) Chronic pain Chronic renal insufficiency 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 exacerbation Essential tremor GERD (gastroesophageal reflux disease) Hyperlipidemia LDL goal <70 Hypertension Lower urinary tract symptoms (LUTS) Multiple rib fractures Opioid dependence treated with opiates for chronic low back pain for 10+ years Septal myocardial infarction SOB (shortness of breath) Tobacco abuse counseling Vitamin B12 deficiency Surgical History H/O heart artery stent (~1994) Family History Denies family history of Ovarian cancer Prostate cancer Myocardial infarction Breast cancer Colorectal cancer Social History Smoking Status: Former smoker Tobacco Type: Cigarettes Cigarettes Per Day: 10; Second Hand Exposure: No; Hx Alcohol Use: No Hx Substance Use: No Preferred Language: Macedonian Communication Ability: Effective Visual Impairment: No Limitations Hearing Ability: Normal Clarifier Required: No Beliefs That Will Affect Care: None marital status: Current Living Situation: Alone Current Living Situation Comment: Alone at home in apartment after of in March current occupational status: 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 many Children do You have: 1 Feels Safe at Home: Yes Childhood Exposure to Second-Hand Smoke: Yes Dental Care, Regularly: No Physical Activity Frequency: Does not Exercise Seatbelt Use: always Sunscreen Use: No (doesn't really go outside ) Assistive Devices: Oxygen - Continuous Review of Systems Review of Systems: Constitutional: denies fevers, chills, nausea, vomiting, night sweats Head: denies lightheadedness admits trauma to his head when he feel one week ago neurologic: denies syncope, slurring of speech, numbness, tingling ENT: denies rhinorrhea, stuffiness, sore throat Cardiac: denies chest pain, palpitations admits leg edema pulm.: denies cough admits shortness of breath with laying down GI: denies constipation, diarrhea LBM today : denies urgency, frequency, dysuria Physical Exam Constitutional: well developed, well nourished and + frail appearing Eyes: PERRL, conjunctivae normal, anicteric sclerae ENMT: external ear and nose normal, oropharynx normal Neck: normal visual inspection Respiratory: no increased work of breathing speaking in full sentences decreased breath sounds at the right base fine crackles throughout lungs with good air movement Cardiovascular: Rate/Rhythm: regular rate Extremities: + edema (lower extremity 2+ bilaterally symmetric) Gastrointestinal (Abdomen): soft, slightly tender diffusely no guarding Musculoskeletal: no cyanosis or clubbing, extremities motor strength 5/5 Skin: no rashes, warm and dry Results & Data Results & Data ([facility]) Vital Signs (Past 12 Hours) Vital Signs Temp Pulse Resp BP Pulse Ox 09/15/21 01:37 77 20 95 09/15/21 01:16 36.9 C 78 24 161/101 H 99 09/15/21 01:15 99 CBC Results Results Complete Blood Count Results: RBC 2.27 M/uL (4.7-6.1) L 09/15/21 WBC 7.95 K/uL (4.8-10.8) 09/15/21 Hgb 7.5 g/dL (14.0-18.0) L 09/15/21 Hct 24.1 % (42-52) L 09/15/21 Plt Count 525 K/uL (130-400) H 09/15/21 Chemistry (BMP) Results BMP Results: Sodium 140 mmol/L (136-145) 09/15/21 Potassium 6.6 mmol/L (3.5-5.1) H* 09/15/21 Chloride 114 mmol/L (98-107) H 09/15/21 Carbon Dioxide 27 mmol/L (21-32) 09/15/21 Anion Gap -1.0 (3-11) L 09/15/21 BUN 59 mg/dl (7-18) H 09/15/21 Creatinine 2.48 mg/dl (0.6-1.4) H 09/15/21 Glucose 98 mg/dl (70-99) 09/15/21 Code Status & VTE Plan VTE Prophylaxis Plan VTE Prophylaxis will be ordered: Yes Supervising Physician Co-Signing Physician Notes Patient seen and examined, chart reviewed, case discussed with Dr. Pool at time of admission. In brief, patient is a pleasant 81yo male with multiple medical comorbidities presenting with SOB. Most likely secondary to volume overload/CHF as evidenced by elevated BNP, right sided pleural effusion new on CXR. Breathing comfortably now on 4L NC - sats 97% He appears frail and cachectic but in NAD HEENT - MMM, Neck supple Heart - +S1/S2, regular, no m/r/g Lungs - diminished breath sounds in bases with crackles Abd - +Bs, soft, NT/ND Ext - warm, no clubbing, cyanosis or edema Labs and images reviewed Assessment/Plan - Suspect volume overload. Will diurese as above. Patient does not prefer aggressive workup or treatment at this time Resident Activity Tracking Resident Involvement: Resident Care Provided Care Provided: Adult Hospital Medicine (1) CHF (congestive heart failure) Heart failure chronicity: acute on chronic Heart failure type: diastolic Qualified Code(s): I50.33 - Acute on chronic diastolic (congestive) heart failure
--- NOTE | 2021-09-15 04:16 | Billing Data ---
Date of Service September 15, 2021 Coding Level of Care Code INT OBSERVATION CARE 50M LVL 2
[2021-09-15] MEDS ORDERED: LORazepam 0.5 MG TAB PO PRN (05:07)
[2021-09-15] MEDS ORDERED: ACETAMINOPHEN 325 MG TAB PO PRN (05:07)
[2021-09-15] MEDS ORDERED: ALBUTEROL HFA 8 GM INHALER INH PRN (05:07)
[2021-09-15] MEDS ORDERED: POLYETHYLENE (MIRALAX) 17 GM PACK PO PRN (05:07)
[2021-09-15 05:33] LABS: Appearance Urine Clear (Clear); Bacteria Urine Automated Negative (Negative); Bilirubin Urine Negative (Negative); Blood Urine Negative (Negative); Color Urine Yellow; Glucose Urine UA Negative (Negative); Ketones Urine Negative (Negative); Leukocyte Esterase Urine Negative (Negative); Nitrite Urine Negative (Negative); Protein Urine 3+ (Negative); Specific Gravity Urine 1.014 (1.000-1.030); Urobilinogen Urine Negative (Negative)
[2021-09-15] MEDS ORDERED: ENOXAPARIN INJ 30 MG/0.3 ML SYR SQ SCH (06:00)
[2021-09-15 06:01] LABS: RBC Urine Automated 0-4 /hpf (0-4)
[2021-09-15 06:32] LABS: BUN Creatinine Ratio 23.7 (10-20); Calcium 8.9 mg/dl (8.5-10.1); Creatinine Clr Calc Pharmacy 22.1 ml/min; Est GFR (African American) 26.9 ml/min; Est GFR (Non-African American) 23.2 ml/min; Magnesium 1.3 mg/dl (1.8-2.4); Potassium 6.3 mmol/L (3.5-5.1)
--- NOTE | 2021-09-15 07:11 | XRay Report ---
SINGLE VIEW CHEST CLINICAL HISTORY: Dyspnea FINDINGS: An AP, portable, upright chest radiograph is compared to study dated 08/12/2021 and correla keyana with chest CT dated 08/14/2021. The heart is enlarged noting atherosclerotic calcification of the thoracic aorta. The pulmonary vasculature is congested. Emphysema and chronic interstitial thickenin g is similar to previous. There are right larger than left pleural effusions with bibasilar consolida tion. Bilateral airspace opacities are observed. No pneumothorax is seen. The skeletal structures are osteopenic. The bony thorax is grossly intact. IMPRESSION: 1. Cardiomegaly and emphysema with evidence of congestive failure. 2. Bilateral airspace opacities likely represent pulmonary edema. Correlate clinically for evidence o f a superimposed infectious/inflammatory pneumonitis. Radiographic follow-up to resolution is recomme nded. 3. Right larger than left pleural effusions with bibasilar consolidation ACT 112: Negative or not required by law. Electronically signed by: Andrew Watkins M.D. 09/15/2021 7:10 AM
[2021-09-15] MEDS ORDERED: NovoLIN-R INSULIN PER UNIT CHARGE ONE (07:14)
[2021-09-15] MEDS ORDERED: INSULIN HUMAN REGULAR PER UNIT 10 UNITS in SYRINGE 9.9 ML IV ONE (07:15)
[2021-09-15] MEDS: HYDROcodone/ACETAMINOPHEN 10/325 TAB PO PRN ×2 (07:18→13:43)
--- NOTE | 2021-09-15 08:09 | Hospitalist Progress Note ---
Date of Service September 15, 2021 Assessment & Plan (1) CHF (congestive heart failure): Plan: 81 yo M w/ pMHx. of CKD IV, CAD w/ septal HI, CHF, HTN, AAA, anemia of chronic disease, HLD, GERD, anxiety and COPD presenting with lower extremity edema and orthopnea admit to med/surg with tele Heart failure preserved EF , exacerbation last echo 07/2021 with low normal EF, did have issues in past with this exacerbated by htn BNP 25,000, CXR with pleural effusion on the right and 2+ pitting edema in his extremities - ordered Bumex 1 mg BID - low sodium diet - follow weights and I and O's Hyperkalemia, 6.6 potentially 2/2 kidney disease - Lasix - Insulin and dextrose - low potassium diet -will give patiromer and diurese recheck in after noon replete low magnesium Chronic kidney disease, stage 4 - continue to monitor cr. and fluid status Anemia, macrocytic with heart failure with transfuse one unit with diuresis afterward - ordered folate and B12 COPD - continue albuterol - continue breo ellipta CAD - continue beta awilda - continue asa, statin HTN - continue losartan and metoprolol Chronic pain - continue home hydrocodone Anxiety - continue lorazepam - continue venlafaxine, mirtazapine Diet: low sodium, low potassium DVT: lovenox Code: full Admission and Anticipated Discharge Date Admission Date: September 15, 2021 Results & Data Results & Data ([facility]) Vital Signs (Past 12 Hours) Vital Signs Temp Pulse Pulse Resp BP BP Pulse Ox 09/15/21 05:10 97.9 F 106 H 20 157/96 H 93 09/15/21 03:00 93 H 20 158/78 H 97 09/15/21 01:37 77 20 95 09/15/21 01:16 98.4 F 78 24 161/101 H 99 09/15/21 01:15 99 PG Care Time/CCT Total # of Minutes Spent Total Time Spent with Patient: Total time spent is greater than 50% in coordination of care (as documented) at patient's floor/unit and/or counseling patient: Coding Diagnoses CHF (congestive heart failure) I50.33 Heart failure chronicity: acute on chronic Heart failure type: diastolic (1) CHF (congestive heart failure) Heart failure chronicity: acute on chronic Heart failure type: diastolic Qualified Code(s): I50.33 - Acute on chronic diastolic (congestive) heart failure
[2021-09-15] MEDS ORDERED: SODIUM CHLORIDE 0.9% 250 ML IV PRN (08:11)
[2021-09-15] MEDS: MAGNESIUM SULFATE / D5W 1 GM/100 ML BAG IV SCH ×2 (08:41→10:37)
[2021-09-15] MEDS: BUMETANIDE 1 MG in SYRINGE 0 ML IV SCH ×2 (08:46→16:53)
[2021-09-15] MEDS ORDERED: ASPIRIN 81 MG ECTAB PO SCH (09:00)
[2021-09-15] MEDS ORDERED: MULTIVITAMIN TAB PO SCH (09:00)
[2021-09-15] MEDS ORDERED: THIAMINE HCL 100 MG TAB PO SCH (09:00)
[2021-09-15] MEDS ORDERED: ATORVASTATIN 40 MG TAB PO SCH (09:00)
[2021-09-15] MEDS ORDERED: FOLIC ACID 400 MCG TAB PO SCH (09:00)
[2021-09-15] MEDS ORDERED: VENLAFAXINE HCL XR 37.5 MG CAPXR PO SCH (09:00)
[2021-09-15] MEDS ORDERED: PANTOprazole 40 MG TAB PO SCH (09:00)
[2021-09-15] MEDS ORDERED: FLUTICASONE/VILANTEROL 200/25MCG 14 PUFFS/INHALER INH SCH (09:00)
[2021-09-15] MEDS ORDERED: FERROUS SULFATE 325 MG TAB PO SCH (09:00)
[2021-09-15] MEDS ORDERED: UMECLIDINIUM BROMIDE 62.5MCG/BLISTER 7 PUFFS/INHALER INH SCH (09:00)
[2021-09-15] MEDS ORDERED: amLODIPine BESYLATE 5 MG TAB PO SCH (09:00)
[2021-09-15] MEDS ORDERED: PATIROMER CALCIUM SORBITEX 8.4 GM PACK PO SCH ×3 (09:00→16:30)
[2021-09-15] MEDS ORDERED: PRIMIDONE 50 MG TAB PO SCH (09:00)
[2021-09-15] MEDS ORDERED: METOPROLOL SUCC 50MG EXT REL TAB PO SCH (09:00)
[2021-09-15] MEDS ORDERED: LOSARTAN POTASSIUM 25 MG TAB PO SCH (09:00)
[2021-09-15 11:19] LABS: BUN Creatinine Ratio 23.1 (10-20); Calcium 8.6 mg/dl (8.5-10.1); Creatinine Clr Calc Pharmacy 20.4 ml/min; Est GFR (African American) 27.2 ml/min; Est GFR (Non-African American) 23.4 ml/min; Potassium 6.2 mmol/L (3.5-5.1)
[2021-09-15 15:40] LABS: BUN Creatinine Ratio 22.5 (10-20); Calcium 8.5 mg/dl (8.5-10.1); Creatinine Clr Calc Pharmacy 20.1 ml/min; Est GFR (African American) 26.8 ml/min; Est GFR (Non-African American) 23.1 ml/min; Potassium 6.8 mmol/L (3.5-5.1)
[2021-09-15 17:40] LABS: BUN Creatinine Ratio 22.1 (10-20); Calcium 8.2 mg/dl (8.5-10.1); Creatinine Clr Calc Pharmacy 20.1 ml/min; Est GFR (African American) 26.8 ml/min; Est GFR (Non-African American) 23.1 ml/min
--- NOTE | 2021-09-15 19:55 | Discharge Summary ---
Date of Service September 15, 2021 Admission HPI Per Admitting Provider Usman Hilton has a past medical history significant for CKD IV, CAD, CHF, HTN, AAA, anemia of chronic disease, HLD, GERD, anxiety and COPD. He is presenting with swelling of his legs that has worsened over the last several days. He also notes that he has trouble breathing when he lays down. He has not had any changes in his diet lately and has people come in to cook for him. He has been vaccinated against COVID. He denies recent illness or changes in his medications. He was asking how long he would have to stay here before going home. ER course: Lasix, dextrose, insulin Principal Diagnosis pt requests for discharge, understanding he is not stable and risks life by wanting to go home hyperkalemia hfpef anemia Discharge Exam The patient appeared chronically ill thin and underweight with a BMI of 18 Moderate protein calorie malnutrition Vital signs as documented. Lungs are clear diminished at the bases Cardiac exam, Rhythm is regular.. No murmurs, rubs or gallops. Abdominal exam reveals normal bowel sounds, soft non tender, no masses Extremities are nonedematous and both pedal pulses are normal. Neurologic exam is alert and oriented, no focal loss of strength or sensation Skin is without bruises or rashes Psychologically is without concerns for anxiety or depression. Discharge Data Allergies Allergy/AdvReac Type Severity Reaction Status Date / Time cefuroxime Allergy Intermediate rash Verified 09/15/21 02:19 lisinopril Allergy Mild itching Verified 09/15/21 02:19 Consultations 09/15/21 02:51 ED Decision to Admit Stat Ordered Studies Chest X-Ray 09/15/21 01:37 SINGLE VIEW CHEST CLINICAL HISTORY: Dyspnea FINDINGS: An AP, portable, upright chest radiograph is compared to study dated 08/12/2021 and correlated with chest CT dated 08/14/2021. The heart is enlarged noting atherosclerotic calcification of the thoracic aorta. The pulmonary vasculature is congested. Emphysema and chronic interstitial thickening is similar to previous. There are right larger than left pleural effusions with bibasilar consolidation. Bilateral airspace opacities are observed. No pneumothorax is seen. The skeletal structures are osteopenic. The bony thorax is grossly intact. IMPRESSION: 1. Cardiomegaly and emphysema with evidence of congestive failure. 2. Bilateral airspace opacities likely represent pulmonary edema. Correlate clinically for evidence of a superimposed infectious/inflammatory pneumonitis. Radiographic follow-up to resolution is recommended. 3. Right larger than left pleural effusions with bibasilar consolidation ACT 112: Negative or not required by law. Electronically signed by: Andrew Watkins M.D. 09/15/2021 7:10 AM Hospital Course (1) CHF (congestive heart failure): 81 yo M w/ pMHx. of CKD IV, CAD w/ septal VT, CHF, HTN, AAA, anemia of chronic disease, HLD, GERD, anxiety and COPD presenting with lower extremity edema and orthopnea admit to med/surg with tele Heart failure preserved EF , exacerbation last echo 07/2021 with low normal EF, did have issues in past with this exacerbated by htn BNP 25,000, CXR with pleural effusion on the right and 2+ pitting edema in his extremities -Improved after IV Bumex will receive an additional dose prior to going home in the afternoon of 09/15/2021 abdominal Bumex daily instead of every other day - low potassium and sodium diet - follow weights and I and O's Hyperkalemia, potassium slightly up after transfusion which could be from lysis of blood cells. potentially 2/2 kidney disease -Patient was not willing to wait in the hospital to treat his hyperkalemia he says it is always out but he does not want a wait for further treatment. -Did give patiromer in the morning and a double dose in the afternoon followed by dose of IV Bumex repleted low magnesium Chronic kidney disease, stage 4 Likely the etiology of both his anemia and electrolyte abnormalities Anemia, macrocytic with heart failure with transfuse one unit with diuresis afterward -Continue iron supplementation COPD seems to be stable at this time - continue albuterol - continue breo ellipta CAD - continue beta awilda - continue asa, statin HTN - continue losartan and metoprolol Chronic pain - continue home hydrocodone Anxiety - continue lorazepam - continue venlafaxine, mirtazapine Diet: low sodium, low potassium Patient was on hospice care one point time which was revoked. Pyxis management has been so gracious to reestablish home health services for this patient Prior to him leaving the hospital I spoke to his daughter at length about the fact that I did not feel it was appropriate for him to go home with the patient refused to stay. Subsequently I encouraged her that if he would change his mind would be glad to continue to care for him in our facility Code: full Total Time Total Time Spent Total Time Spent (In Minutes): It required greater than 30 minutes to prepare this patient for discharge Discharge Plan Discharge Items Patient Disposition: Home - Home Health Services Reason For Visit: LEG SWELLING Discharge Diagnosis: symptomatic anemia hyperkalemia chronic kidney disease Activity: Per Instructions section Activity Comment: please rest and recover Non-emergency contact: Primary Care Provider Call non-emergency contact if: your symptoms worsen and you have a fever Follow-up/Referrals: Юлия Harvey MD [Primary Care Provider] - Diet: Low Potassium (2gm) Addtl Attending Provider Instructions: Please eat a low potassium diet that would mean foods that are not citrus or contain tomatoes as ingredients Please change to take your water pill, bumex once each day instead of every 2 days Please note that we had discussed your high potassium level and its danger to you and the fact that it could cause heart issues to endanger or end your life. We have tried to use some medicines prior to you leaving with no guarentees, if you feel poorly in any way please return to the hospital with you low blood counts and transfusion, conitnue taking iron supplements or a multiple vitamin with iron Pending Studies at Discharge: No Stand-Alone Forms: My [facility] [employer], Smoking Cessation Medications and DC Order Prescriptions: Continued primidone 50 mg tablet 50 mg PO BID Qty: 180 RF: 3 omeprazole 40 mg capsule,delayed release(DR/EC) 40 mg PO DAILY Qty: 90 RF: 3 folic acid 800 mcg tablet 800 mcg PO QAM Qty: 30 RF: 0 hydrocodone-acetaminophen 10-325 mg tablet 2 tab PO Q6H MDD 8 tabs PRN (Reason: pain) Qty: 120 RF: 0 lorazepam 0.5 mg tablet 0.5 mg PO TID PRN (Reason: anxiety) Qty: 90 RF: 0 Incruse Ellipta 62.5 mcg/actuation blister with device 1 inh inhalation DAILY Qty: 30 RF: 5 atorvastatin 40 mg tablet 40 mg PO DAILY Qty: 90 RF: 3 metoprolol succinate [Toprol XL] 100 mg tablet extended release 24 hr 100 mg PO DAILY Qty: 90 RF: 3 mirtazapine 30 mg tablet 30 mg PO QPM Qty: 90 RF: 3 tamsulosin 0.4 mg capsule 0.4 mg PO QPM Qty: 90 RF: 3 amlodipine 5 mg tablet 5 mg PO DAILY Qty: 90 RF: 3 multivitamin [Daily Multi-Vitamin] Tablet 1 tab PO DAILY RF: 0 losartan 25 mg tablet 25 mg PO DAILY Qty: 90 RF: 3 venlafaxine 37.5 mg capsule,extended release 24hr 37.5 mg PO QAM 30 Days Qty: 90 RF: 3 aspirin 81 mg tablet,delayed release (DR/EC) 81 mg PO QAM RF: 0 cyanocobalamin (vitamin B-12) [Vitamin B-12] 1,000 mcg tablet 1,000 mcg PO QAM RF: 0 nitroglycerin 0.4 mg tablet, sublingual 0.4 mg sublingual DIRECTED PRN (Reason: Chest Pain) RF: 0 ferrous sulfate 325 mg (65 mg iron) Tablet,Delayed Release (Dr/Ec) 325 mg PO QAM Qty: 30 RF: 0 thiamine HCl (vitamin B1) [Vitamin B-1] 100 mg Tablet 100 mg PO QAM Qty: 30 RF: 0 Breo Ellipta 200-25 mcg/dose Blister With Device 1 ea inhalation DAILY Qty: 28 RF: 0 prednisone 10 mg tablet 10 mg PO DAILY Qty: 10 RF: 0 albuterol sulfate 90 mcg/actuation HFA aerosol inhaler 1 inh inhalation Q6H PRN (Reason: shortness of breath or wheezing) Qty: 8.5 RF: 0 Changed bumetanide 1 mg tablet 1 mg PO DAILY Qty: 90 RF: 3 Discharge Orders: Discharge Order (Routine); Ordered 09/15/21 Ordered By: Usman Browning Admission Data Admit Date/Time: 09/15/21 03:12 Attending Provider: Usman Browning Admit Provider: Collin Pool Primary Care Provider: Юлия Harvey Other Providers: Karly Olivia Coding Level of Care Code D/C DAY MANAGEMENT >30 MINS Diagnoses CHF (congestive heart failure) I50.33 Heart failure chronicity: acute on chronic Heart failure type: diastolic
[2021-09-15] MEDS ORDERED: MIRTAZAPINE TAB 15 MG TAB PO SCH (21:00)
[2021-09-15] MEDS ORDERED: TAMSULOSIN HCL 0.4 MG CAP PO SCH (21:00)
--- NOTE | 2021-09-17 19:40 | Electrocardiogram Report ---
Test Reason : Blood Pressure : / mmHG Vent. Rate : 087 BPM Atrial Rate : 087 BPM P-R Int : 122 ms QRS Dur : 082 ms QT Int : 364 ms P-R-T Axes : 053 054 063 degrees QTc Int : 438 ms Normal sinus rhythm Normal ECG When compared with ECG of 12-AUG-2021 23:27, Premature atrial complexes are no longer Present Confirmed by Fan Irwin ([id number]) on 09/17/2021 7:39:59 PM Referred By: REFERRED SELF Confirmed By:Fan Irwin
== END 2021-09-15 18:30 | disposition home health service (06) | DRG 291 ==
LOC: ED 01:05 → EDINP 03:12 → SUATTDRO 03:12 → EDINP 05:06
DX: Z79.82 Long term (current) use of aspirin; E53.8 Deficiency of other specified B group vitamins; I50.33 Acute on chronic diastolic (congestive) heart failure; E78.5 Hyperlipidemia, unspecified; E87.5 Hyperkalemia; Z88.1 Allergy status to other antibiotic agents; I13.0 Hypertensive heart and chronic kidney disease with heart failure and stage 1 through stage 4 chronic kidney disease, or unspecified chronic kidney disease; Z95.5 Presence of coronary angioplasty implant and graft; I25.2 Old myocardial infarction; D63.1 Anemia in chronic kidney disease; Z79.52 Long term (current) use of systemic steroids; Z79.899 Other long term (current) drug therapy; R63.6 Underweight; D53.9 Nutritional anemia, unspecified; E44.0 Moderate protein-calorie malnutrition; Z68.1 Body mass index [BMI] 19.9 or less, adult; N18.4 Chronic kidney disease, stage 4 (severe); G89.29 Other chronic pain; M54.59 Other low back pain; K21.9 Gastro-esophageal reflux disease without esophagitis; I25.10 Atherosclerotic heart disease of native coronary artery without angina pectoris; F41.9 Anxiety disorder, unspecified; J44.9 Chronic obstructive pulmonary disease, unspecified; Z88.8 Allergy status to other drugs, medicaments and biological substances; Z87.891 Personal history of nicotine dependence

== ENCOUNTER 2021-09-21 14:01 | Inpatient (IN) ==
[2021-09-21] MEDS ORDERED: ALBUT/IPRATROP 3MG/0.5MG NEB 3 ML VIAL INH STA (14:12)
--- NOTE | 2021-09-21 14:14 | Emergency Department Note ---
History of Present Illness General Chief complaint: Shortness of Breath/Dyspnea Stated complaint: SOB Time Seen by Provider: 09/21/21 14:03 Source: patient and EMS Mode of arrival: EMS History of Present Illness Provider complaint: Shortness of breath Onset (ago): hour(s) Location: chest Pain Consistency: + constant Quality: + other (Short of breath and wheezing) Relieved By: + medication (DuoNeb) Associated symptoms: + shortness of breath; no chest pain, no cough, no fever/chills or no nausea/vomiting Treatments prior to arrival: other (Solu-Medrol IV and a DuoNeb) This is a 81-year-old male with a history of COPD and CHF presenting with shortness of breath starting earlier today. He is currently on 6 L of oxygen at home normally but the paramedics states that his O2 saturation was only in the 80s. He was placed on a nonrebreather mask and his O2 saturation improved. He was given a DuoNeb and Solu-Medrol IV after which his symptoms seem to improve remarkably. The paramedics state that he was recommended to be on hospice but he does not like to talk about it. He also is a candidate for dialysis but he has been refusing it. He also left AMA from the hospital last week. The patient states that he never refused dialysis. He states that the rn perinatal told him that it would not help him. He is open to dialysis if he needs it. The patient states he is currently feeling much better. He denies any chest discomfort or pain or upper back pain. He does have chronic back pain in the lower back which he states is unchanged and treated with Lortab on a daily basis. He denies any fever, cough or cold symptoms, loss of taste or smell, vomiting, diarrhea, abdominal pain, weight gain or leg swelling or pain. He is urinating as per usual and denies dysuria. He is vaccinated for COVID-19. He had his last shot sometime this year but cannot remember when. He has not had a booster shot. Home Medications Medication Instructions Recorded Confirmed Type aspirin 81 mg tablet,delayed 81 mg PO QAM 05/06/19 09/21/21 History release multivitamin (Daily Multi-Vitamin) 1 tab PO DAILY 05/28/21 09/21/21 History hydrocodone 10 mg-acetaminophen 2 tab PO Q6H PRN #120 tab MDD 8 09/01/21 09/21/21 Rx 325 mg tablet tabs lorazepam 0.5 mg tablet 0.5 mg PO TID PRN #90 tab 09/03/21 09/21/21 Rx albuterol sulfate 90 mcg/actuation 2 inh INHALATION Q6H PRN #8.5 g 09/17/21 09/21/21 Rx aerosol inhaler amlodipine 5 mg tablet 5 mg PO DAILY #30 tab 09/17/21 09/21/21 Rx ferrous sulfate 325 mg (65 mg 325 mg PO DAILY #30 tab 09/17/21 09/21/21 Rx iron) tablet,delayed release fluticasone fur. 200 mcg-umeclid 1 inh INHALATION DAILY #60 ea 09/17/21 09/21/21 Rx 62.5 mcg-vilant 25 mcg inhalat.powder (Trelegy Ellipta) mirtazapine 30 mg tablet 30 mg PO QPM #30 tab 09/17/21 09/21/21 Rx nitroglycerin 0.4 mg sublingual 0.4 mg SUBLINGUAL DIRECTED PRN 09/17/21 09/21/21 Rx tablet #25 tab omeprazole 20 mg capsule,delayed 20 mg PO DAILY #30 cap 09/17/21 09/21/21 Rx release tamsulosin 0.4 mg capsule 0.4 mg PO QPM #30 cap 09/17/21 09/21/21 Rx venlafaxine 37.5 mg 37.5 mg PO DAILY 30 Days #30 cap 09/17/21 09/21/21 Rx capsule,extended release 24 hr bumetanide 1 mg tablet 1 mg PO QAM 09/21/21 09/21/21 History Allergies Allergy/AdvReac Type Severity Reaction Status Date / Time cefuroxime Allergy Intermediate rash Verified 09/21/21 15:57 lisinopril Allergy Mild itching Verified 09/21/21 15:57 Past Med/Surg History Medical History AAA (abdominal aortic aneurysm) Acute hypoxemic respiratory failure Anemia of chronic disease Anxiety Bilateral pleural effusion CAD (coronary artery disease) PTCA with stent of RCA 1994 Chronic kidney disease, stage 4 (severe) Chronic pain Chronic renal insufficiency 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 exacerbation Essential tremor GERD (gastroesophageal reflux disease) Hyperlipidemia LDL goal <70 Hypertension Lower urinary tract symptoms (LUTS) Multiple rib fractures Opioid dependence treated with opiates for chronic low back pain for 10+ years Septal myocardial infarction SOB (shortness of breath) Tobacco abuse counseling Vitamin B12 deficiency Surgical History H/O heart artery stent (~1994) Family History Denies family history of Ovarian cancer Prostate cancer Myocardial infarction Breast cancer Colorectal cancer Social History Smoking Status: Never smoker Tobacco Type: Cigarettes Cigarettes Per Day: 10; Second Hand Exposure: No; Hx Alcohol Use: No Hx Substance Use: No Preferred Language: Syriac Communication Ability: Effective Visual Impairment: No Limitations Hearing Ability: Normal Java Architect Required: No Beliefs That Will Affect Care: None marital status: Current Living Situation: Alone Current Living Situation Comment: Alone at home in apartment after of in March current occupational status: 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 and A total of 10 systems reviewed and were otherwise negative Physical Exam Vital Signs Vital Signs - 24 hr 09/21/21 14:04 Temperature 36.5 C Temperature Source Oral Pulse Rate 108 H Respiratory Rate 19 Respiratory Effort / Characteristics Non-Labored Spontaneous Respiratory Depth Normal Blood Pressure 180/97 H Blood Pressure [Right Arm] 180/97 H Blood Pressure Mean 124 Blood Pressure Mean [Right Arm] 124 Blood Pressure Position Sitting Pulse Oximetry 100 Oxygen Delivery Method Non-rebreather Oxygen Flow Rate 15 Sepsis Recent Fever Within 48 Hours No Sepsis New/Unexplained Change in Mental Status No Sepsis Action Taken by Nursing No Action Required Constitutional: Vital signs reviewed. Eyes: Pupils are equal round reactive to light. Conjunctiva are noninjected. ENT: Pharynx is clear without erythema or exudate. Mucous membranes are dry. Neck supple without meningeal signs. Respiratory: Scattered expiratory wheezing bilaterally. Breath sounds are equal bilaterally. Cardiovascular: Regular rhythm. Tachycardic. Heart rate 106. GI: Soft, nondistended and nontender. Bowel sounds are present. Musculoskeletal: No peripheral edema. No lower extremity tenderness. Integumentary: No cyanosis. or jaundice. Neurological: The patient is awake and alert. No focal deficits. Psychiatric: Normal affect. Not anxious appearing. Course Administered Medications Hydrocodone Bitart/Acetaminophen (Hydrocodone/Acetaminophen 10/325 Tab) 2 tab PO Q6H PRN PRN Reason: pain Stop: 10/05/21 18:01 Last Admin: 09/21/21 18:57 Dose: 2 tab Documented by: [id number] Albuterol (Albut/Ipratrop 3mg/0.5mg Neb 3 Ml Vial) 3 ml NEB QIDR [facility]; Protocol Stop: 10/21/21 18:59 Last Admin: 09/21/21 18:53 Dose: 3 ml Documented by: [id number] Discontinued Medications Albuterol (Albut/Ipratrop 3mg/0.5mg Neb 3 Ml Vial) 3 ml INH NOW STA Stop: 09/21/21 14:13 Last Admin: 09/21/21 14:40 Dose: 3 ml Documented by: [id number] Calcium Gluconate (Calcium Gluconate 1000 Mg/60 Ml Nss) Confirm Administered Dose 1,000 mg IV .STK-MED ONE Stop: 09/21/21 19:15 Last Admin: 09/21/21 19:29 Dose: Not Given Documented by: [id number] Dextrose (Dextrose 50% 50 Ml Syringe) 50 ml IV NOW STA Stop: 09/21/21 14:31 Last Admin: 09/21/21 15:06 Dose: 50 ml Documented by: [id number] Dextrose (Dextrose 50% 50 Ml Syringe) 50 ml IV NOW STA Stop: 09/21/21 18:55 Last Admin: 09/21/21 19:29 Dose: 50 ml Documented by: [id number] Furosemide (Furosemide 40 Mg/4 Ml Vial) 80 mg IV ONE STA Stop: 09/21/21 17:25 Last Admin: 09/21/21 18:34 Dose: 80 mg Documented by: [id number] Calcium Gluconate () 1,000 mg in 60 mls @ 240 mls/hr IV NOW STA Stop: 09/21/21 14:44 Last Infusion: 09/21/21 15:39 Dose: 0 mls/hr Documented by: [id number] Admin: 09/21/21 15:06 Dose: 240 mls/hr Documented by: [id number] Piperacillin Sod/Tazobactam Sod (Zosyn) 4.5 gm in 120 mls @ 240 mls/hr IV NOW ONE Stop: 09/21/21 15:46 Last Infusion: 09/21/21 17:21 Dose: 0 mls/hr Documented by: [id number] Admin: 09/21/21 15:39 Dose: 240 mls/hr Documented by: [id number] Insulin Human Regular 10 units (/ Syringe) 10 mls @ 3 mls/sec IV ONE ONE Stop: 09/21/21 19:16 Last Admin: 09/21/21 19:30 Dose: Not Given Documented by: [id number] Calcium Gluconate 1,000 mg/ (Sodium Chloride) 60 mls @ 240 mls/hr IV ONE ONE Stop: 09/21/21 19:29 Last Infusion: 09/21/21 19:58 Dose: 0 mls/hr Documented by: [id number] Admin: 09/21/21 19:29 Dose: 240 mls/hr Documented by: [id number] Insulin Human Regular (Novolin-R Insulin Per Unit Charge) 7 units IV NOW STA Stop: 09/21/21 14:31 Last Admin: 09/21/21 14:58 Dose: 7 units Documented by: [id number] Cosigned by: [id number] Insulin Human Regular (Novolin-R Insulin Per Unit Charge) Confirm Administered Dose 10 units .ROUTE .STK-MED ONE Stop: 09/21/21 19:11 Last Admin: 09/21/21 19:17 Dose: 10 units Documented by: [id number] Cosigned by: [id number] Methylprednisolone (Methylprednisolone 125 Mg/2 Ml Vial) 125 mg IV NOW STA Stop: 09/21/21 16:02 Last Admin: 09/21/21 17:20 Dose: 125 mg Documented by: [id number] Patiromer (Patiromer Calcium Sorbitex 8.4 Gm Pack) 8.4 gm PO NOW STA Stop: 09/21/21 15:12 Last Admin: 09/21/21 15:40 Dose: 8.4 gm Documented by: [id number] Critical Care Time Critical Care Time: Yes Total Critical Care Time: 45 I have personally spent approximately 45 minutes of critical care time in the direct management of this patient. This includes bedside care, interpretation of diagnostic studies, and testing, discussion with consultants, patient, and family members, and other required patient management activities. These minutes are in excess of all separately billable procedures. Medical Decision Making Differential Diagnosis COPD exacerbation, CHF exacerbation, pulmonary edema, electrolyte abnormality, pneumonia, COVID-19 Medical Records Attestation: I reviewed the patient's medical records. I did perform a limited focused review of portions of the patient's old chart on the electronic medical record. The patient left the hospital AMA on September 15. He was admitted for CHF exacerbation and required 1 unit of packed RBCs for anemia and had a potassium of seven on discharge. He was seen by nephrology and refused any hemodialysis. He is on patiromer. He did follow-up with his doctor 2 days later but a potassium was not rechecked. Home Medications Current Medication List: was personally reviewed by me Laboratory Data Attestation: I reviewed the patient's lab results. Result diagrams: 09/21/21 14:15 09/21/21 17:50 Lab Results 09/21/21 09/21/21 09/21/21 Range/Units 14:15 14:15 14:15 WBC 14.16 H (4.8-10.8) K/uL RBC 2.79 L (4.7-6.1) M/uL Hgb 9.0 L (14.0-18.0) g/dL POC Hgb (14.0-18.0) g/dl Hct 29.8 L (42-52) % POC Hct (42-52) % MCV 106.8 H (80-100) fL MCH 32.3 (25-34) pg MCHC 30.2 L (32-36) g/dL RDW Std Deviation 58.7 H (36.4-46.3) fL RDW Coeff of Lucas 15.1 H (11.5-14.5) % Plt Count 391 (130-400) K/uL MPV 9.9 (7.4-10.4) fL Immature Gran % (Auto) 0.3 % Neut % (Auto) 80.3 % Lymph % (Auto) 10.9 % [place] % (Auto) 7.0 % Eos % (Auto) 1.3 % Baso % (Auto) 0.2 % Neut # (Auto) 11.36 H (1.4-6.5) K/uL Lymph # (Auto) 1.55 (1.2-3.4) K/uL [place] # (Auto) 0.99 H (0.11-0.59) K/uL Eos # (Auto) 0.19 (0-0.5) K/uL Baso # (Auto) 0.03 (0-0.2) K/uL Immature Gran # (Auto) 0.04 H (0.00-0.02) K/uL POC Sodium (135-144) mmol/L Sodium 139 (136-145) mmol/L POC Potassium (3.3-5.0) mmol/L Potassium 6.8 H* (3.5-5.1) mmol/L POC Chloride (101-112) mmol/L Chloride 112 H (98-107) mmol/L Carbon Dioxide 24 (21-32) mmol/L POC Total CO2 (24-31) mmol/L Anion Gap 3.0 (3-11) POC Anion Gap (16-25) mmol/L POC BUN (7-18) mg/dl BUN 62 H (7-18) mg/dl Creatinine 2.66 H (0.6-1.4) mg/dl POC Creatinine (0.6-1.3) mg/dl Est Cr Clr Drug Dosing Not Reportable Est GFR ( Amer) 25.3 ml/min Est GFR (Non-Af Amer) 21.8 ml/min BUN/Creatinine Ratio 23.3 H (10-20) Glucose 129 H (70-99) mg/dl POC Glucose (70-99) mg/dl POC Glucose (other) (70-99) mg/dl Calcium 8.4 L (8.5-10.1) mg/dl POC Ioniz Calcium Gerald (1.12-1.32) mmol/l Total Bilirubin 0.1 L (0.2-1) mg/dl AST 9 L (15-37) U/L ALT 20 (12-78) Alkaline Phosphatase 87 (45-117) U/L Troponin I < 0.015 (0-0.045) ng/ml NT-Pro-B Natriuret Pep 63812 H Cancelled (0-1800) pg/ml Total Protein 7.3 (6.4-8.2) gm/dl Albumin 2.8 L (3.4-5.0) gm/dl Globulin 4.5 H (2.5-4.0) gm/dl Albumin/Globulin Ratio 0.6 L (0.9-2) SARS-CoV-2, RNA, NAAT (NEGATIVE) 09/21/21 09/21/21 09/21/21 Range/Units 14:24 14:28 15:37 WBC (4.8-10.8) K/uL RBC (4.7-6.1) M/uL Hgb (14.0-18.0) g/dL POC Hgb 9.5 L (14.0-18.0) g/dl Hct (42-52) % POC Hct 28 L (42-52) % MCV (80-100) fL MCH (25-34) pg MCHC (32-36) g/dL RDW Std Deviation (36.4-46.3) fL RDW Coeff of Lucas (11.5-14.5) % Plt Count (130-400) K/uL MPV (7.4-10.4) fL Immature Gran % (Auto) % Neut % (Auto) % Lymph % (Auto) % [place] % (Auto) % Eos % (Auto) % Baso % (Auto) % Neut # (Auto) (1.4-6.5) K/uL Lymph # (Auto) (1.2-3.4) K/uL [place] # (Auto) (0.11-0.59) K/uL Eos # (Auto) (0-0.5) K/uL Baso # (Auto) (0-0.2) K/uL Immature Gran # (Auto) (0.00-0.02) K/uL POC Sodium 139 (135-144) mmol/L Sodium (136-145) mmol/L POC Potassium 6.7 H* (3.3-5.0) mmol/L Potassium (3.5-5.1) mmol/L POC Chloride 112 (101-112) mmol/L Chloride (98-107) mmol/L Carbon Dioxide (21-32) mmol/L POC Total CO2 24 (24-31) mmol/L Anion Gap (3-11) POC Anion Gap 11.0 L (16-25) mmol/L POC BUN 65 H (7-18) mg/dl BUN (7-18) mg/dl Creatinine (0.6-1.4) mg/dl POC Creatinine 2.6 H (0.6-1.3) mg/dl Est Cr Clr Drug Dosing Est GFR ( Amer) ml/min Est GFR (Non-Af Amer) ml/min BUN/Creatinine Ratio (10-20) Glucose (70-99) mg/dl POC Glucose 168 H (70-99) mg/dl POC Glucose (other) 137 H (70-99) mg/dl Calcium (8.5-10.1) mg/dl POC Ioniz Calcium Gerald 1.17 (1.12-1.32) mmol/l Total Bilirubin (0.2-1) mg/dl AST (15-37) U/L ALT (12-78) Alkaline Phosphatase (45-117) U/L Troponin I (0-0.045) ng/ml NT-Pro-B Natriuret Pep (0-1800) pg/ml Total Protein (6.4-8.2) gm/dl Albumin (3.4-5.0) gm/dl Globulin (2.5-4.0) gm/dl Albumin/Globulin Ratio (0.9-2) SARS-CoV-2, RNA, NAAT NEGATIVE (NEGATIVE) Imaging Data Radiologist's Impression: Chest X-Ray 09/21/21 14:12 XR chest 1V portable CLINICAL HISTORY: Dyspnea COMPARISON STUDY: Chest CT August 14, 2021. Chest radiograph September 15, 2021. FINDINGS: There is no pneumothorax. Skin folds project over the left hemithorax. Moderate right pleural effusion is again noted. This has slightly decreased. Persistent bibasilar opacities are again noted. Small left pleural effusion is s imilar to prior exam. Interstitial thickening is similar to prior exam. This favors pulmonary edema. Cardiomediastinal silhouette is stable. IMPRESSION: 1. Persistent pulmonary edema. 2. Moderate right and small left pleural effusions. Slight decrease in the right pleural effusion. 3. Persistent bibasilar opacities which could reflect consolidation or atelectasis. ACT 112: Negative or not required by law. Electronically signed by: Kyree Harvey M.D. 09/21/2021 2:44 PM ECG Data Attestation: I personally reviewed and interpreted this ECG as follows: Indication: + SOB/dyspnea Rate (beats per minute): 109 Rhythm: + sinus tachycardia ECG Patterson: + Normal ECG Findings: + Peaked T waves; no PVCs Comparison ECG Date: from (September 15, 2021) Change: no significant change MDM Narrative I did evaluate the patient as noted above. The patient is brought in by EMS for difficulty breathing starting today. On his previous admission he had sudden shortness of breath due to lying flat and was admitted for CHF as well as anemia and hyperkalemia. He did leave AMA on the with a potassium of seven. IV access was established. He has some mild expiratory wheezing on exam here. He does not have any pitting edema to his lower extremities. I did treat him with a DuoNeb. His oxygen was weaned down off of the nonrebreather. He is satting 100% at his usual 6 L at this time. I did place an order for continuous cardiac monitoring. The monitor showed sinus tachycardia at a rate of 105 bpm. I did order and personally review the patient's 12-lead EKG as described above. He has some peaked T waves which were present on his previous EKG from the . I did order an i-STAT to evaluate his potassium at this time. I did order and review the patient's blood work as noted in the electronic medical record. CBC demonstrates a white count of 14.16. Hemoglobin is 9.0 improved from his last visit. His platelet count is 391. BNP is elevated. Troponin is negative. His potassium is 6.7. I did treat him with IV insulin and D50. He is also given IV calcium gluconate. I did order and personally reviewed the images of the patient's chest x-ray as described above. He has pulmonary edema and bilateral effusions. There is some consolidation versus atelectasis in the lower lobes as well. There is slight improvement from his x-ray from September 15. Covid testing is negative. I did order a urine analysis. I did discuss case with Dr. Daniels of nephrology. She recommended maximizing medical management and giving another dose of Veltassa. I did give him 8.4 g of Veltassa. She stated that should he require hemodialysis it would be available. I did discuss this with the patient. He is agreeable to hospitalization. I did treat him with Zosyn IV due to the possible consolidations in his x-rays. I did discuss the case with the hospitalist and disease case manager rn. Impression & Plan Hypoxemia, Acute exacerbation of chronic obstructive pulmonary disease, Chronic kidney disease, stage 4 (severe), Hyperkalemia, Abnormal EKG, Chronic anemia, Bilateral pneumonia Discharge Plan Visit Data Chief Complaint: Shortness of Breath/Dyspnea Stated Complaint: SOB ED Provider: Usman Lay Discharge Problem: Hypoxemia, Acute exacerbation of chronic obstructive pulmonary disease, Chronic kidney disease, stage 4 (severe), Hyperkalemia, Abnormal EKG, Chronic anemia, Bilateral pneumonia Patient Disposition: Being Evaluated by Hospitalist Discharge Problem: Bilateral pneumonia Qualifiers: Pneumonia type: due to unspecified organism Lung location: lower lobe of lung Qualified Code(s): J18.9 - Pneumonia, unspecified organism
[2021-09-21] MEDS ORDERED: NovoLIN-R INSULIN PER UNIT CHARGE IV STA (14:30)
[2021-09-21] MEDS ORDERED: DEXTROSE 50% 50 ML SYRINGE IV STA ×3 (14:30→21:03)
[2021-09-21] MEDS ORDERED: CALCIUM GLUCONATE 1,000 MG/60 ML BAG IV STA (14:30)
[2021-09-21 14:33] LABS: Basophils # (auto) 0.03 K/uL (0-0.2); Basophils % (auto) 0.2 %; Eosinophils # (auto) 0.19 K/uL (0-0.5); Eosinophils % (auto) 1.3 %; Hematocrit (blood only) 29.8 % (42-52); Immature Granulocytes # (auto) 0.04 K/uL (0.00-0.02); Immature Granulocytes % (auto) 0.3 %; Lymphocytes # (auto) 1.55 K/uL (1.2-3.4); Lymphocytes % (auto) 10.9 %; Mean Corpuscular Hemoglobin 32.3 pg (25-34); Mean Corpuscular Hgb Conc 30.2 g/dL (32-36); Mean Corpuscular Volume 106.8 fL (80-100); Mean Platelet Volume 9.9 fL (7.4-10.4); Monocytes # (auto) 0.99 K/uL (0.11-0.59); Neutrophils # (auto) 11.36 K/uL (1.4-6.5); Neutrophils % (auto) 80.3 %; Platelet Count 391 K/uL (130-400); RDW Coefficient of Variation 15.1 % (11.5-14.5); RDW Standard Deviation 58.7 fL (36.4-46.3); Red Blood Count 2.79 M/uL (4.7-6.1); White Blood Count 14.16 K/uL (4.8-10.8)
[2021-09-21 14:40] LABS: iSTAT Creatinine 2.6 mg/dl (0.6-1.3); iSTAT Hemoglobin 9.5 g/dl (14.0-18.0); iSTAT Ionized Calcium 1.17 mmol/l (1.12-1.32); iSTAT Potassium 6.7 mmol/L (3.3-5.0)
--- NOTE | 2021-09-21 14:45 | XRay Report ---
XR chest 1V portable CLINICAL HISTORY: Dyspnea COMPARISON STUDY: Chest CT August 14, 2021. Chest radiograph September 15, 2021. FINDINGS: There is no pneumothorax. Skin folds project over the left hemithorax. Moderate right pleur al effusion is again noted. This has slightly decreased. Persistent bibasilar opacities are again not ed. Small left pleural effusion is similar to prior exam. Interstitial thickening is similar to prior exam. This favors pulmonary edema. Cardiomediastinal silhouette is stable. IMPRESSION: 1. Persistent pulmonary edema. 2. Moderate right and small left pleural effusions. Slight decrease in the right pleural effusion. 3. Persistent bibasilar opacities which could reflect consolidation or atelectasis. ACT 112: Negative or not required by law. Electronically signed by: Kyree Harvey M.D. 09/21/2021 2:44 PM
[2021-09-21] MEDS ORDERED: PATIROMER CALCIUM SORBITEX 8.4 GM PACK PO STA (15:11)
[2021-09-21 15:14] LABS: Alanine Aminotransferase 20 (12-78); Albumin Globulin Ratio 0.6 (0.9-2); Albumin Level 2.8 gm/dl (3.4-5.0); Alkaline Phosphatase 87 U/L (45-117); Aspartate Aminotransferase 9 U/L (15-37); BUN Creatinine Ratio 23.3 (10-20); Bilirubin,Total 0.1 mg/dl (0.2-1); Blood Urea Nitrogen 62 mg/dl (7-18); Calcium 8.4 mg/dl (8.5-10.1); Carbon Dioxide 24 mmol/L (21-32); Chloride 112 mmol/L (98-107); Est GFR (African American) 25.3 ml/min; Est GFR (Non-African American) 21.8 ml/min; Globulin 4.5 gm/dl (2.5-4.0); Glucose 129 mg/dl (70-99); NT Pro B Type Natriuretic Pept 20327 pg/ml (0-1800); Potassium 6.8 mmol/L (3.5-5.1); Sodium 139 mmol/L (136-145); Total Protein 7.3 gm/dl (6.4-8.2); Troponin I < 0.015 ng/ml (0-0.045)
[2021-09-21] MEDS ORDERED: PIPERACILLIN/TAZOBACTAM 4.5 GM/120 ML BAG IV ONE (15:17)
[2021-09-21] MEDS ORDERED: PIPERACILL/TAZOBAC CONSULT ACTIVE PRN (15:17)
[2021-09-21] MEDS ORDERED: methylPREDNISolone 125 MG/2 ML VIAL IV STA (16:01)
--- NOTE | 2021-09-21 16:07 | History & Physical Report ---
Date of Service September 21, 2021 Assessment & Plan (1) Acute on chronic respiratory failure with hypoxia: Plan: Aim O2 sats > 88% due to COPD Suspect shortness of breath and hypoxia secondary to hypervolemic state However given symptomatic improvement with nebulizers possibility of COPD exacerbation however his exam does not reflex this therefore will defer ongoing steroids but continue nebulizers as this will also help his hyperkalemia Continue Zosyn pending procalcitonin although low suspicion of bacterial pneumonia (2) Hyperkalemia: Plan: Longstanding history of this. Previously signed out against medical advice on September 15 with potassium 7.0 and surprisingly it isn't higher. Veltassa 8.4g PO, Calcium gluconate 1000mg IV and insulin 7 units / dextrose given in ER. Ongoing management in discussion with nephrology - additional insulin /dextrose now, repeat K in 1 hour, if not starting to decrease may need dialysis tonight Consult nephrology (3) Pulmonary edema: Plan: Suspect secondary to renal failure Lasix 80mg IV Hdz cath - strict I&Os Daily weights Low Na, fluid restricted diet (4) COPD (chronic obstructive pulmonary disease) with emphysema: Plan: Continue his regular maintenance inhalers and duonebs QID Low tolerance to add steroids back if getting worse as had some symptomtic improvement from this in the ER (5) Chronic kidney disease, stage 4 (severe): Plan: At baseline (6) Hypertension: Plan: Continue amlodipine 5mg PO daily Lasix as above (7) Severe protein-calorie malnutrition: Plan: Noted. Consider dietary consult once not critically unwell (8) Opioid dependence: Plan: Continue his usual hydrocodone/acetaminophen dosing (9) GERD (gastroesophageal reflux disease): Plan: Switch omeprazole to pantoprazole per hospital formulary (10) CAD (coronary artery disease): Plan: Continue aspirin, unclear why he is not on statin (11) Macrocytic anemia: Plan: At baseline B12 and folate previously high Consider peripheral smear although I suspect this is the least of his current problems Plan: VTE Prophylaxis - deferred on admission due to possible need for dialysis and temporary catheter, consider chemical prophylaxis if stay prolonged Diet - low Na, low, K, NPO after midnight Disposition - admit to PCU Admission and Anticipated Discharge Date Admission Date: September 21, 2021 History of Present Illness Chief Complaint: Shortness of breath Primary Care Provider: MD Usman Fonseca is a 81 year old male who presents to the ER with sudden onset shortness of breath that started earlier today. He has chronic hypoxic respiratory failure on 6LPM O2 at baseline. Reportedly in the ER his breathing improved after duoenbs given. He denies any fever or chills but has noticed increased non-productive cough. No nasal congestion, loss of taste or smell. He was recently hospitalized on September 15 for hyperkalemia, anemia and HFpEF and left against medical advice the same day with a potassium level of 7.0 on discharge. In the ER his potassium level was elevated at 6.8. This was treated with Veltassa, Insulin/dextrose and albuterol on discussion with nephrology. He was referred to medicine for admission and ongoing management of shortness of breath and hyperkalemia. Allergies Allergy/AdvReac Type Severity Reaction Status Date / Time cefuroxime Allergy Intermediate rash Verified 09/21/21 15:57 lisinopril Allergy Mild itching Verified 09/21/21 15:57 Home Medications Medication Instructions Recorded Confirmed Type aspirin 81 mg tablet,delayed 81 mg PO QAM 05/06/19 09/21/21 History release multivitamin (Daily Multi-Vitamin) 1 tab PO DAILY 05/28/21 09/21/21 History hydrocodone 10 mg-acetaminophen 2 tab PO Q6H PRN #120 tab MDD 8 09/01/21 09/21/21 Rx 325 mg tablet tabs lorazepam 0.5 mg tablet 0.5 mg PO TID PRN #90 tab 09/03/21 09/21/21 Rx albuterol sulfate 90 mcg/actuation 2 inh INHALATION Q6H PRN #8.5 g 09/17/21 09/21/21 Rx aerosol inhaler amlodipine 5 mg tablet 5 mg PO DAILY #30 tab 09/17/21 09/21/21 Rx ferrous sulfate 325 mg (65 mg 325 mg PO DAILY #30 tab 09/17/21 09/21/21 Rx iron) tablet,delayed release fluticasone fur. 200 mcg-umeclid 1 inh INHALATION DAILY #60 ea 09/17/21 09/21/21 Rx 62.5 mcg-vilant 25 mcg inhalat.powder (Trelegy Ellipta) mirtazapine 30 mg tablet 30 mg PO QPM #30 tab 09/17/21 09/21/21 Rx nitroglycerin 0.4 mg sublingual 0.4 mg SUBLINGUAL DIRECTED PRN 09/17/21 09/21/21 Rx tablet #25 tab omeprazole 20 mg capsule,delayed 20 mg PO DAILY #30 cap 09/17/21 09/21/21 Rx release tamsulosin 0.4 mg capsule 0.4 mg PO QPM #30 cap 09/17/21 09/21/21 Rx venlafaxine 37.5 mg 37.5 mg PO DAILY 30 Days #30 cap 09/17/21 09/21/21 Rx capsule,extended release 24 hr bumetanide 1 mg tablet 1 mg PO QAM 09/21/21 09/21/21 History Past Med/Surg History Medical History AAA (abdominal aortic aneurysm) Acute hypoxemic respiratory failure Anemia of chronic disease Anxiety Bilateral pleural effusion CAD (coronary artery disease) PTCA with stent of RCA 1994 Chronic kidney disease, stage 4 (severe) Chronic pain Chronic renal insufficiency 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 exacerbation Essential tremor GERD (gastroesophageal reflux disease) Hyperlipidemia LDL goal <70 Hypertension Lower urinary tract symptoms (LUTS) Multiple rib fractures Opioid dependence treated with opiates for chronic low back pain for 10+ years Septal myocardial infarction SOB (shortness of breath) Tobacco abuse counseling Vitamin B12 deficiency Surgical History H/O heart artery stent (~1994) Family History Denies family history of Ovarian cancer Prostate cancer Myocardial infarction Breast cancer Colorectal cancer Social History Smoking Status: Former smoker Tobacco Type: Cigarettes Cigarettes Per Day: 10; Second Hand Exposure: No; Hx Alcohol Use: No Hx Substance Use: No Preferred Language: French Communication Ability: Effective Visual Impairment: No Limitations Hearing Ability: Normal Machine Filler Shredder Required: No Beliefs That Will Affect Care: None marital status: Current Living Situation: Alone Current Living Situation Comment: Alone at home in apartment after of in March current occupational status: 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 many Children do You have: 1 Feels Safe at Home: Yes Childhood Exposure to Second-Hand Smoke: Yes Dental Care, Regularly: No Physical Activity Frequency: Does not Exercise Seatbelt Use: always Sunscreen Use: No (doesn't really go outside ) Assistive Devices: Oxygen - Continuous and Walker Review of Systems Review of Systems: All systems reviewed & are unremarkable except as noted in HPI & below Physical Exam Constitutional: well developed, + acute distress (respiratory), + ill appearing and + lethargic; + not well nourished Eyes: + anicteric sclerae; normal pupil size Respiratory: + respiratory distress, + retractions and + uses accessory muscles; + not able to speak in complete sentence and expiratory phase not prolonged Auscultation: + crackles (dine at bases, good air entry b/l); no wheezes Cardiovascular: Rate/Rhythm: regular rate and regular rhythm Heart Sounds: no murmur Extremities: normal capillary refill and + pedal edema (2+ to knees equal b/l); no calf tenderness Gastrointestinal (Abdomen): normal bowel sounds, soft, nontender, no hepatosplenomegaly Musculoskeletal: no cyanosis or clubbing, extremities motor strength 5/5 Skin: no rashes, warm and dry Neurologic: moves all extremities and awake (falls back to sleep easily); not confused Psychiatric: Orientation: alert and oriented x 3 Results & Data Results & Data ([facility]) Vital Signs (Past 12 Hours) Vital Signs Temp Pulse Resp BP BP Pulse Ox 09/21/21 14:04 36.5 C 108 H 19 180/97 H 180/97 H 100 Laboratory Results Abnormal lab results 09/21/21 09/21/21 09/21/21 Range/Units 14:15 14:15 14:28 WBC 14.16 H (4.8-10.8) K/uL RBC 2.79 L (4.7-6.1) M/uL Hgb 9.0 L (14.0-18.0) g/dL POC Hgb 9.5 L (14.0-18.0) g/dl Hct 29.8 L (42-52) % POC Hct 28 L (42-52) % MCV 106.8 H (80-100) fL MCHC 30.2 L (32-36) g/dL RDW Std Deviation 58.7 H (36.4-46.3) fL RDW Coeff of Lucas 15.1 H (11.5-14.5) % Neut # (Auto) 11.36 H (1.4-6.5) K/uL [place] # (Auto) 0.99 H (0.11-0.59) K/uL Immature Gran # (Auto) 0.04 H (0.00-0.02) K/uL POC Potassium 6.7 H* (3.3-5.0) mmol/L Potassium 6.8 H* (3.5-5.1) mmol/L Chloride 112 H (98-107) mmol/L POC Total CO2 (24-31) mmol/L Anion Gap (3-11) POC Anion Gap 11.0 L (16-25) mmol/L POC BUN 65 H (7-18) mg/dl BUN 62 H (7-18) mg/dl Creatinine 2.66 H (0.6-1.4) mg/dl POC Creatinine 2.6 H (0.6-1.3) mg/dl BUN/Creatinine Ratio 23.3 H (10-20) Glucose 129 H (70-99) mg/dl POC Glucose (70-99) mg/dl POC Glucose (other) 137 H (70-99) mg/dl Calcium 8.4 L (8.5-10.1) mg/dl Total Bilirubin 0.1 L (0.2-1) mg/dl AST 9 L (15-37) U/L NT-Pro-B Natriuret Pep 45797 H (0-1800) pg/ml Albumin 2.8 L (3.4-5.0) gm/dl Globulin 4.5 H (2.5-4.0) gm/dl Albumin/Globulin Ratio 0.6 L (0.9-2) Urine Protein (Negative) Urine WBC (Auto) (0-5) /hpf U Epithel Cells (Auto) (0-5) /lpf Urine Yeast (None Prsent) 09/21/21 09/21/21 09/21/21 Range/Units 15:37 17:05 17:50 WBC (4.8-10.8) K/uL RBC (4.7-6.1) M/uL Hgb (14.0-18.0) g/dL POC Hgb (14.0-18.0) g/dl Hct (42-52) % POC Hct (42-52) % MCV (80-100) fL MCHC (32-36) g/dL RDW Std Deviation (36.4-46.3) fL RDW Coeff of Lucas (11.5-14.5) % Neut # (Auto) (1.4-6.5) K/uL [place] # (Auto) (0.11-0.59) K/uL Immature Gran # (Auto) (0.00-0.02) K/uL POC Potassium (3.3-5.0) mmol/L Potassium 6.9 H* (3.5-5.1) mmol/L Chloride 113 H (98-107) mmol/L POC Total CO2 (24-31) mmol/L Anion Gap 2.0 L (3-11) POC Anion Gap (16-25) mmol/L POC BUN (7-18) mg/dl BUN 63 H (7-18) mg/dl Creatinine 2.58 H (0.6-1.4) mg/dl POC Creatinine (0.6-1.3) mg/dl BUN/Creatinine Ratio 24.5 H (10-20) Glucose 102 H (70-99) mg/dl POC Glucose 168 H 103 H (70-99) mg/dl POC Glucose (other) (70-99) mg/dl Calcium (8.5-10.1) mg/dl Total Bilirubin (0.2-1) mg/dl AST (15-37) U/L NT-Pro-B Natriuret Pep (0-1800) pg/ml Albumin (3.4-5.0) gm/dl Globulin (2.5-4.0) gm/dl Albumin/Globulin Ratio (0.9-2) Urine Protein (Negative) Urine WBC (Auto) (0-5) /hpf U Epithel Cells (Auto) (0-5) /lpf Urine Yeast (None Prsent) 09/21/21 09/21/21 09/21/21 Range/Units 19:50 20:24 20:28 WBC (4.8-10.8) K/uL RBC (4.7-6.1) M/uL Hgb (14.0-18.0) g/dL POC Hgb 8.8 L (14.0-18.0) g/dl Hct (42-52) % POC Hct 26 L (42-52) % MCV (80-100) fL MCHC (32-36) g/dL RDW Std Deviation (36.4-46.3) fL RDW Coeff of Lucas (11.5-14.5) % Neut # (Auto) (1.4-6.5) K/uL [place] # (Auto) (0.11-0.59) K/uL Immature Gran # (Auto) (0.00-0.02) K/uL POC Potassium 6.5 H* (3.3-5.0) mmol/L Potassium 6.6 H* (3.5-5.1) mmol/L Chloride 113 H (98-107) mmol/L POC Total CO2 22 L (24-31) mmol/L Anion Gap (3-11) POC Anion Gap 14.0 L (16-25) mmol/L POC BUN 66 H (7-18) mg/dl BUN 64 H (7-18) mg/dl Creatinine 2.83 H (0.6-1.4) mg/dl POC Creatinine 2.7 H (0.6-1.3) mg/dl BUN/Creatinine Ratio 22.8 H (10-20) Glucose 177 H (70-99) mg/dl POC Glucose (70-99) mg/dl POC Glucose (other) 182 H (70-99) mg/dl Calcium (8.5-10.1) mg/dl Total Bilirubin (0.2-1) mg/dl AST (15-37) U/L NT-Pro-B Natriuret Pep (0-1800) pg/ml Albumin (3.4-5.0) gm/dl Globulin (2.5-4.0) gm/dl Albumin/Globulin Ratio (0.9-2) Urine Protein 2+ H (Negative) Urine WBC (Auto) 5-10 H (0-5) /hpf U Epithel Cells (Auto) 10-20 H (0-5) /lpf Urine Yeast Budding A (None Prsent) 09/21/21 09/21/21 Range/Units 22:40 23:08 WBC (4.8-10.8) K/uL RBC (4.7-6.1) M/uL Hgb (14.0-18.0) g/dL POC Hgb (14.0-18.0) g/dl Hct (42-52) % POC Hct (42-52) % MCV (80-100) fL MCHC (32-36) g/dL RDW Std Deviation (36.4-46.3) fL RDW Coeff of Lucas (11.5-14.5) % Neut # (Auto) (1.4-6.5) K/uL [place] # (Auto) (0.11-0.59) K/uL Immature Gran # (Auto) (0.00-0.02) K/uL POC Potassium (3.3-5.0) mmol/L Potassium (3.5-5.1) mmol/L Chloride (98-107) mmol/L POC Total CO2 (24-31) mmol/L Anion Gap (3-11) POC Anion Gap (16-25) mmol/L POC BUN (7-18) mg/dl BUN (7-18) mg/dl Creatinine (0.6-1.4) mg/dl POC Creatinine (0.6-1.3) mg/dl BUN/Creatinine Ratio (10-20) Glucose (70-99) mg/dl POC Glucose 139 H 239 H (70-99) mg/dl POC Glucose (other) (70-99) mg/dl Calcium (8.5-10.1) mg/dl Total Bilirubin (0.2-1) mg/dl AST (15-37) U/L NT-Pro-B Natriuret Pep (0-1800) pg/ml Albumin (3.4-5.0) gm/dl Globulin (2.5-4.0) gm/dl Albumin/Globulin Ratio (0.9-2) Urine Protein (Negative) Urine WBC (Auto) (0-5) /hpf U Epithel Cells (Auto) (0-5) /lpf Urine Yeast (None Prsent) Diagnostic Findings XR chest 1V portable CLINICAL HISTORY: Dyspnea COMPARISON STUDY: Chest CT August 14, 2021. Chest radiograph September 15, 2021. FINDINGS: There is no pneumothorax. Skin folds project over the left hemithorax. Moderate right pleural effusion is again noted. This has slightly decreased. Persistent bibasilar opacities are again noted. Small left pleural effusion is similar to prior exam. Interstitial thickening is similar to prior exam. This favors pulmonary edema. Cardiomediastinal silhouette is stable. IMPRESSION: 1. Persistent pulmonary edema. 2. Moderate right and small left pleural effusions. Slight decrease in the right pleural effusion. 3. Persistent bibasilar opacities which could reflect consolidation or atelectasis. Medications Administered ER Medications Given: Duoneb 3ml NEB Insulin 7 units IV Dextrose 50% 50ml Calcium gluconate 1000mg IV Veltassa 8.4h PO Zosyn 4.5g IV ECG Indication: toxicologic (hyperkalemia) Rate (beats per minute): 109 Rhythm: sinus tachycardia Findings: + other (pecked T waves in V3-4); no acute ischemic change Comparison ECG Date: from (2020) Change: the following changes noted (increased T waves peaking) Code Status & VTE Plan Code Status Full VTE Prophylaxis Plan VTE Prophylaxis will be ordered: Yes Critical Care Time Critical Care Time: Yes Total Critical Care Time: 35 Mangement and reassessments of hyperkalemia PG Care Time/CCT Total # of Minutes Spent Total Time Spent with Patient: Total time spent is greater than 50% in coordination of care (as documented) at patient's floor/unit and/or counseling patient: Critical Care Time: Yes Total Critical Care Time: 35 Coding Level of Care Code 34926 Initial Inpt Care Lvl 3 Diagnoses Hyperkalemia E87.5 Pulmonary edema J81.0 Chronicity: acute Chronic kidney disease, stage 4 (severe) N18.4 Acute on chronic respiratory failure with hypoxia J96.21 COPD (chronic obstructive pulmonary disease) with emphysema J43.9 Hypertension I10 Severe protein-calorie malnutrition E43 Opioid dependence F11.20 GERD (gastroesophageal reflux disease) K21.9 CAD (coronary artery disease) I25.10 Macrocytic anemia D53.9 Additional Codes Critical Care Time - Critical Care Time: Yes ([id number]) (1) Pulmonary edema Chronicity: acute Qualified Code(s): J81.0 - Acute pulmonary edema
--- NOTE | 2021-09-21 16:50 | Nephrology Consultation ---
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 Renal imaging otherwise unremarkable. Admitted with shortness of breath, volume overload and persistent hyperkalemia with EKG changes. Received dose of Veltassa, insulin, D50 and calcium gluconate. Reports improvement in respiratory status. Repeat K was 6.9 -- Lasix 80 mg IV x1 dose, give another dose of insulin D50, repeat potassium in 1 h. if potassium continues to worsen, may need to consider dialysis tonight with temporary dialysis catheter, otherwise continue to monitor potassium every 6 hours -- low-potassium diet -- monitor intake and output. Thank you for allowing me to participate in your patient's care. It was a pleasure to see Mr. Hilton History of Present Illness Reason for Consultation: hyperkalemia, advanced CKD History of Present Illness Mr. Hilton is a 81-year-old male with past medical history significant for stage IV CKD, recent admission for hyperkalemia, h/o COPD and CHF presenting with SOB starting earlier today. Nephrology consult requested from ER for evaluation for severe hyperkalemia. EMR records were reviewedduring visit. Mr. Hilton presented with SOB which started earlier today. He is on 6 L of oxygen at home normally and his O2 saturation was only in the 80s. He was placed on a nonrebreather mask and his O2 saturation improved. He was given a DuoNeb and Solu-Medrol IV after which his symptoms seem to improved. On admission CXR showed pulmonary congestion. Lab showed K of 6.8. Cr was 2.6, close to recent b/l. Has anemia, Hb 9.2. He was admitted with similar presentation a month ago and on discharge he was continued on Veltassa 3 x W. He has been trying to avoid high K food. He denies any fever, cough or cold symptoms, loss of taste or smell, vomiting, diarrhea, abdominal pain, weight gain or leg swelling or pain. He is urinating as per usual and denies dysuria and reports normal po intake. Has stage IV CKD, b/l cr 2.0-2.3, with h/o several episodes of KEAGAN before and after recent hospitalization creatinine staying somewhere 2.4 to 2.6, he has not been following with Nephrology as an outpatient. 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 Imaging showed no postrenal obstruction. Has high grade proteinuria. Current active smoker. History of atherosclerotic disease and AAA. Blood pressure generally poorly controlled, renal artery Doppler was negative for hemodynamically significant renal artery stenosis. At baseline his significantly debilitated and weak and has protein calorie malnutrition. Has been living alone since his in March of this year. During last visit he was seen by palliative care to discuss goals of care and he is a full code. He reports improvement in respiratory status since arrival, no shortness of breath, chest pain or cough. Did nit have any Urine output since arrival to ER. Allergies Allergy/AdvReac Type Severity Reaction Status Date / Time cefuroxime Allergy Intermediate rash Verified 09/21/21 15:57 lisinopril Allergy Mild itching Verified 09/21/21 15:57 Home Medications Medication Instructions Recorded Confirmed Type aspirin 81 mg tablet,delayed 81 mg PO QAM 05/06/19 09/21/21 History release multivitamin (Daily Multi-Vitamin) 1 tab PO DAILY 05/28/21 09/21/21 History hydrocodone 10 mg-acetaminophen 2 tab PO Q6H PRN #120 tab MDD 8 09/01/21 09/21/21 Rx 325 mg tablet tabs lorazepam 0.5 mg tablet 0.5 mg PO TID PRN #90 tab 09/03/21 09/21/21 Rx albuterol sulfate 90 mcg/actuation 2 inh INHALATION Q6H PRN #8.5 g 09/17/21 09/21/21 Rx aerosol inhaler amlodipine 5 mg tablet 5 mg PO DAILY #30 tab 09/17/21 09/21/21 Rx ferrous sulfate 325 mg (65 mg 325 mg PO DAILY #30 tab 09/17/21 09/21/21 Rx iron) tablet,delayed release fluticasone fur. 200 mcg-umeclid 1 inh INHALATION DAILY #60 ea 09/17/21 09/21/21 Rx 62.5 mcg-vilant 25 mcg inhalat.powder (Trelegy Ellipta) mirtazapine 30 mg tablet 30 mg PO QPM #30 tab 09/17/21 09/21/21 Rx nitroglycerin 0.4 mg sublingual 0.4 mg SUBLINGUAL DIRECTED PRN 09/17/21 09/21/21 Rx tablet #25 tab omeprazole 20 mg capsule,delayed 20 mg PO DAILY #30 cap 09/17/21 09/21/21 Rx release tamsulosin 0.4 mg capsule 0.4 mg PO QPM #30 cap 09/17/21 09/21/21 Rx venlafaxine 37.5 mg 37.5 mg PO DAILY 30 Days #30 cap 09/17/21 09/21/21 Rx capsule,extended release 24 hr bumetanide 1 mg tablet 1 mg PO QAM 09/21/21 09/21/21 History Patient History Medical History AAA (abdominal aortic aneurysm) Acute hypoxemic respiratory failure Anemia of chronic disease Anxiety Bilateral pleural effusion CAD (coronary artery disease) PTCA with stent of RCA 1994 Chronic kidney disease, stage 4 (severe) Chronic pain Chronic renal insufficiency 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 exacerbation Essential tremor GERD (gastroesophageal reflux disease) Hyperlipidemia LDL goal <70 Hypertension Lower urinary tract symptoms (LUTS) Multiple rib fractures Opioid dependence treated with opiates for chronic low back pain for 10+ years Septal myocardial infarction SOB (shortness of breath) Tobacco abuse counseling Vitamin B12 deficiency Surgical History H/O heart artery stent (~1994) Family History Denies family history of Ovarian cancer Prostate cancer Myocardial infarction Breast cancer Colorectal cancer Social History Smoking Status: Never smoker Tobacco Type: Cigarettes Cigarettes Per Day: 10; Second Hand Exposure: No; Hx Alcohol Use: No Hx Substance Use: No Preferred Language: Liberian Communication Ability: Effective Visual Impairment: No Limitations Hearing Ability: Normal Personal Computer Network Engineer Required: No Beliefs That Will Affect Care: None marital status: Current Living Situation: Alone Current Living Situation Comment: Alone at home in apartment after of in March current occupational status: 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 many Children do You have: 1 Feels Safe at Home: Yes Childhood Exposure to Second-Hand Smoke: Yes Dental Care, Regularly: No Physical Activity Frequency: Does not Exercise Seatbelt Use: always Sunscreen Use: No (doesn't really go outside ) Assistive Devices: Oxygen - Continuous and Walker Review of Systems Constitutional: as per Subjective / HPI; no fever, no chills, no weakness and no weight loss Eyes: no problem reported Respiratory: + dyspnea; no cough and no hemoptysis Cardiovascular: no chest pain, no syncope and no edema Gastrointestinal: no abdominal pain, no nausea and no vomiting Neurologic: + generalized weakness Psychiatric: as per Subjective / HPI; no behavioral changes Physical Exam Constitutional: WD/WN, vitals as above + ill appearing and + cachectic; no acute distress Eyes: + anicteric sclerae ENMT: Ears: no hearing impairment and no external ear abnormality Neck: normal visual inspection Respiratory: normal respiratory effort and + cough; no respiratory distress Auscultation: + crackles; no wheezes Cardiovascular: RRR, no murmur, no edema Rate/Rhythm: regular rate and regular rhythm Heart Sounds: normal S1 and normal S2 Extremities: no edema Gastrointestinal (Abdomen): Inspection/Auscultation: abdomen normal to inspection and normal bowel sounds Percussion/Palpation: abdomen soft; abdomen nontender Musculoskeletal: Extremities: extremities normal to inspection Skin: no rashes Neurologic: no focal motor deficits and not confused Psychiatric: Orientation: alert and oriented x 3 Affect: euthymic affect Results & Data ([facility]) Vital Signs (Past 12 Hours) Vital Signs Temp Pulse Resp BP BP Pulse Ox 09/21/21 14:04 36.5 C 108 H 19 180/97 H 180/97 H 100 PG Care Time/CCT Total # of Minutes Spent Total Time Spent with Patient: Total time spent is greater than 50% in coordination of care (as documented) at patient's floor/unit and/or counseling patient: Coding Level of Care Code 98800 Initial Inpt Care Lvl 3 Diagnoses Hyperkalemia E87.5 Chronic kidney disease, stage 4 (severe) N18.4 Pulmonary edema J81.0 Chronicity: acute Chronic anemia D64.9 (1) Pulmonary edema Chronicity: acute Qualified Code(s): J81.0 - Acute pulmonary edema
[2021-09-21] MEDS ORDERED: FUROSEMIDE 40 MG/4 ML VIAL IV STA (17:24)
[2021-09-21] MEDS ORDERED: POLYETHYLENE (MIRALAX) 17 GM PACK PO PRN (18:02)
[2021-09-21] MEDS ORDERED: ONDANSETRON INJ 2 MG/ML 2 ML VIAL IV PRN (18:02)
[2021-09-21] MEDS ORDERED: ACETAMINOPHEN 325 MG TAB PO PRN (18:02)
[2021-09-21 18:39] LABS: BUN Creatinine Ratio 24.5 (10-20); Blood Urea Nitrogen 63 mg/dl (7-18); Calcium 8.7 mg/dl (8.5-10.1); Carbon Dioxide 24 mmol/L (21-32); Chloride 113 mmol/L (98-107); Est GFR (African American) 26.3 ml/min; Est GFR (Non-African American) 22.7 ml/min; Glucose 102 mg/dl (70-99); Potassium 6.9 mmol/L (3.5-5.1); Sodium 139 mmol/L (136-145)
[2021-09-21] MEDS: ALBUT/IPRATROP 3MG/0.5MG NEB 3 ML VIAL NEB SCH (18:53)
[2021-09-21] MEDS: HYDROcodone/ACETAMINOPHEN 10/325 TAB PO PRN (18:57)
[2021-09-21] MEDS ORDERED: NovoLIN-R INSULIN PER UNIT CHARGE ONE (19:10)
[2021-09-21] MEDS ORDERED: CALCIUM GLUCONATE 1000 MG/60 ML NSS IV ONE (19:14)
[2021-09-21] MEDS ORDERED: CALCIUM GLUCONATE 10% 1,000 MG in SODIUM CHLORIDE 0.9% 50 ML IV ONE (19:15)
[2021-09-21] MEDS ORDERED: PATIENT'S HEIGHT AND/OR WEIGHT NEEDED SCH (19:15)
[2021-09-21] MEDS ORDERED: INSULIN HUMAN REGULAR PER UNIT 10 UNITS in SYRINGE 9.9 ML IV ONE (19:15)
[2021-09-21 20:17] LABS: Appearance Urine Clear (Clear); Bacteria Urine Automated Negative (Negative); Bilirubin Urine Negative (Negative); Blood Urine Negative (Negative); Cast Urine Automated 0 /lpf (0-5); Color Urine Yellow; Glucose Urine UA Negative (Negative); Ketones Urine Negative (Negative); Leukocyte Esterase Urine Negative (Negative); Nitrite Urine Negative (Negative); Protein Urine 2+ (Negative); RBC Urine Automated 0-4 /hpf (0-4); Specific Gravity Urine 1.015 (1.000-1.030); Urobilinogen Urine Negative (Negative)
[2021-09-21] MEDS ORDERED: PANTOPRAZOLE BOLUS/DRIP 1 EA IV STA (20:40)
[2021-09-21] MEDS ORDERED: PANTOprazole 80 MG in DEXTROSE 5% 100 ML IV ONE (20:40)
[2021-09-21 20:44] LABS: iSTAT Creatinine 2.7 mg/dl (0.6-1.3); iSTAT Hemoglobin 8.8 g/dl (14.0-18.0); iSTAT Ionized Calcium 1.27 mmol/l (1.12-1.32); iSTAT Potassium 6.5 mmol/L (3.3-5.0)
[2021-09-21 20:57] LABS: BUN Creatinine Ratio 22.8 (10-20); Blood Urea Nitrogen 64 mg/dl (7-18); Calcium 8.6 mg/dl (8.5-10.1); Carbon Dioxide 24 mmol/L (21-32); Chloride 113 mmol/L (98-107); Est GFR (African American) 23.5 ml/min; Est GFR (Non-African American) 20.3 ml/min; Glucose 177 mg/dl (70-99); Potassium 6.6 mmol/L (3.5-5.1); Sodium 140 mmol/L (136-145)
[2021-09-21] MEDS ORDERED: methylPREDNISolone 40 MG in SYRINGE 0 ML IV SCH (21:00)
[2021-09-21] MEDS ORDERED: PANTOprazole 40 MG in DEXTROSE 5% 100 ML IV SCH (21:00)
[2021-09-21] MEDS ORDERED: INSULIN HUMAN REGULAR PER UNIT 10 UNITS in SYRINGE 9.9 ML IV STA (21:39)
[2021-09-21] MEDS: TAMSULOSIN HCL 0.4 MG CAP PO SCH (22:47)
[2021-09-21] MEDS: MIRTAZAPINE TAB 15 MG TAB PO SCH (22:48)
--- NOTE | 2021-09-21 23:13 | Communication Note ---
Date of Service: September 21, 2021 K decreased to 6.5. Discussed wtih Dr Garcia. No need for dialysis. Will continue to treat with insulin/dextrose as needed. Trend potassium q4h overnig ht. If starting to increase again will switch to q2h labs with treatment K > 6.0
[2021-09-21] MEDS: PIPERACILLIN/TAZOBACTAM 3.375 GM in DEXTROSE 5% 100 ML IV SCH (23:24)
[2021-09-22 01:00] LABS: Influenza A virus by PCR Negative (Negative); Influenza B virus by PCR Negative (Negative)
[2021-09-22] MEDS: HYDROcodone/ACETAMINOPHEN 10/325 TAB PO PRN ×4 (01:10→18:41)
[2021-09-22 01:31] LABS: BUN Creatinine Ratio 22.7 (10-20); Calcium 8.7 mg/dl (8.5-10.1); Est GFR (African American) 23.3 ml/min; Est GFR (Non-African American) 20.1 ml/min
[2021-09-22] MEDS ORDERED: INSULIN HUMAN REGULAR PER UNIT 10 UNITS in SYRINGE 9.9 ML IV STA ×2 (01:34→06:49)
[2021-09-22] MEDS ORDERED: SODIUM BICARBONATE 8.4% 150 MEQ in DEXTROSE 5% 1,000 ML IV STA ×2 (01:34→20:50)
[2021-09-22] MEDS ORDERED: DEXTROSE 50% 50 ML SYRINGE IV STA ×3 (01:34→20:43)
[2021-09-22] MEDS ORDERED: ALBUTEROL 0.5% NEB SOLN 2.5 MG/0.5 ML VIAL NEB STA (01:34)
[2021-09-22 03:38] LABS: Hematocrit (blood only) 24.1 % (42-52); Hemoglobin 7.4 g/dL (14.0-18.0); Immature Granulocytes # (auto) 0.01 K/uL (0.00-0.02); Immature Granulocytes % (auto) 0.1 %; Lymphocytes # (auto) 0.53 K/uL (1.2-3.4); Mean Corpuscular Hemoglobin 32.7 pg (25-34); Mean Corpuscular Hgb Conc 30.7 g/dL (32-36); Mean Corpuscular Volume 106.6 fL (80-100); Mean Platelet Volume 9.5 fL (7.4-10.4); Monocytes % (auto) 2.7 %; Neutrophils % (auto) 90.2 %; Platelet Count 319 K/uL (130-400); RDW Coefficient of Variation 15.2 % (11.5-14.5); RDW Standard Deviation 59.2 fL (36.4-46.3); Red Blood Count 2.26 M/uL (4.7-6.1); White Blood Count 7.54 K/uL (4.8-10.8)
[2021-09-22 03:52] LABS: Partial Thromboplastin Ratio 1.1; Partial Thromboplastin Time 28.5 Seconds (21.0-31.0); Prothrombin Time 10.3 Seconds (9.0-12.0)
[2021-09-22 04:30] LABS: BUN Creatinine Ratio 23.3 (10-20); Calcium 8.3 mg/dl (8.5-10.1); Creatinine Clr Calc Pharmacy 21.7 ml/min; Est GFR (African American) 24.2 ml/min; Est GFR (Non-African American) 20.9 ml/min; Potassium 6.1 mmol/L (3.5-5.1)
[2021-09-22 04:49] LABS: Anisocytosis Present
[2021-09-22 06:40] LABS: BUN Creatinine Ratio 24.3 (10-20); Calcium 8.6 mg/dl (8.5-10.1); Creatinine Clr Calc Pharmacy 22.5 ml/min; Est GFR (African American) 25.3 ml/min; Est GFR (Non-African American) 21.8 ml/min
[2021-09-22] MEDS ORDERED: NovoLIN-R INSULIN PER UNIT CHARGE ONE (07:32)
[2021-09-22] MEDS: PIPERACILLIN/TAZOBACTAM 3.375 GM in DEXTROSE 5% 100 ML IV SCH ×3 (07:44→23:33)
[2021-09-22] MEDS: METOPROLOL SUCC 50MG EXT REL TAB PO SCH (07:46)
[2021-09-22] MEDS: ASPIRIN 81 MG ECTAB PO SCH (07:46)
[2021-09-22] MEDS: FERROUS SULFATE 325 MG TAB PO SCH (07:46)
[2021-09-22] MEDS: UMECLIDINIUM/VILANTEROL 62.5/25MCG 7 PUFFS/INHALER INH SCH (07:47)
[2021-09-22] MEDS: VENLAFAXINE HCL XR 37.5 MG CAPXR PO SCH (07:47)
[2021-09-22] MEDS: PANTOprazole 40 MG TAB PO SCH (07:47)
[2021-09-22] MEDS: ALBUT/IPRATROP 3MG/0.5MG NEB 3 ML VIAL NEB SCH (08:02)
[2021-09-22] MEDS: FLUTICASONE FUROATE 200MCG 14 PUFFS/INHALER INH SCH (08:07)
[2021-09-22 08:08] LABS: BUN Creatinine Ratio 23.5 (10-20); Calcium 8.7 mg/dl (8.5-10.1); Creatinine Clr Calc Pharmacy 22.3 ml/min; Est GFR (Non-African American) 21.5 ml/min
[2021-09-22] MEDS ORDERED: ALBUT/IPRATROP 3MG/0.5MG NEB 3 ML VIAL NEB PRN ×2 (08:18→19:22)
[2021-09-22] MEDS ORDERED: amLODIPine BESYLATE 5 MG TAB PO SCH (09:00)
--- NOTE | 2021-09-22 09:53 | Nephrology Progress Note ---
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 Renal imaging otherwise unremarkable. Admitted with shortness of breath, volume overload and persistent hyperkalemia with EKG changes. Received dose of Veltassa, insulin, D50 and calcium gluconate. Reports improvement in respiratory status. Repeat K was 6 this am. -- Veltassa 1 dose now and then continue daily, if potassium goes up again, will plan for dialysis this afternoon via temporary dialysis catheter. -- Considering persistent hyperkalemia over last 1 month despite being on Veltassa, will check 24 hour creatinine clearance, if creatinine clearance less than 10, may need to start on dialysis. -- low-potassium diet -- monitor intake and output. Will follow Admission and Anticipated Discharge Date Admission Date: September 21, 2021 Subjective Floyd was seen and examined of this morning. He feels his respiratory status improved and denies any further episode of shortness of breath, no chest pain. Potassium improved to 6.0 this morning after multiple doses of insulin, D50 overnight as well as Lasix and Veltassa. renal function stable at baseline. Blood pressure improved. Review of Systems Constitutional: as per Subjective / HPI; no fever, no chills, no weakness and no weight loss Physical Exam Constitutional: WD/WN, vitals as above + cachectic; no acute distress Eyes: + anicteric sclerae ENMT: Ears: no hearing impairment Neck: normal visual inspection Respiratory: normal respiratory effort; no respiratory distress Cardiovascular: RRR, no murmur, no edema Neurologic: no focal motor deficits and not confused Psychiatric: Orientation: alert and oriented x 3 Affect: euthymic affect Results & Data ([facility]) Vital Signs (Past 12 Hours) Vital Signs Temp Pulse Resp BP Pulse Ox 09/22/21 08:02 89 17 100 09/22/21 02:57 88 16 144/75 H 97 09/22/21 01:57 82 16 98 09/21/21 23:32 79 16 162/87 H 100 09/21/21 22:00 37 C 93 H 18 174/83 H 98 PG Care Time/CCT Total # of Minutes Spent Total Time Spent with Patient: Total time spent is greater than 50% in coordination of care (as documented) at patient's floor/unit and/or counseling patient: Coding Level of Care Code 35409 Subseq Hosp Care Lvl 3 Diagnoses Hyperkalemia E87.5 Chronic kidney disease, stage 4 (severe) N18.4 Pulmonary edema J81.0 Chronicity: acute Chronic anemia D64.9 (1) Pulmonary edema Chronicity: acute Qualified Code(s): J81.0 - Acute pulmonary edema
[2021-09-22] MEDS ORDERED: EPOETIN ALFA 20,000 UNITS/ML VIAL SQ STA (10:02)
[2021-09-22 10:16] LABS: BUN Creatinine Ratio 23.8 (10-20); Calcium 8.3 mg/dl (8.5-10.1); Creatinine Clr Calc Pharmacy 22.4 ml/min; Est GFR (African American) 25.1 ml/min; Est GFR (Non-African American) 21.6 ml/min
[2021-09-22] MEDS: LORazepam 0.5 MG TAB PO PRN ×2 (11:57→19:26)
[2021-09-22 12:51] LABS: BUN Creatinine Ratio 23.4 (10-20); Calcium 8.5 mg/dl (8.5-10.1); Creatinine Clr Calc Pharmacy 22.2 ml/min; Est GFR (African American) 24.9 ml/min; Est GFR (Non-African American) 21.4 ml/min; Potassium 6.2 mmol/L (3.5-5.1)
[2021-09-22] MEDS ORDERED: FUROSEMIDE 40 MG/4 ML VIAL IV ONE (14:30)
[2021-09-22] MEDS: PATIROMER CALCIUM SORBITEX 8.4 GM PACK PO SCH (14:45)
--- NOTE | 2021-09-22 15:23 | Hospitalist Progress Note ---
Date of Service September 22, 2021 Assessment & Plan (1) Hyperkalemia: Plan: Longstanding history of this. Previously signed out against medical advice on September 15 with potassium 7.0. - Continue Veltassa - Continue Lasix - Ongoing management in discussion with nephrology - If cannot keep K < 6.0, will consider tunnelled-line and initiation of dialysis. (2) Acute on chronic respiratory failure with hypoxia: Plan: Aim O2 sats > 88% due to COPD & CHF. - Presently needing 5L Oxymask with good O2 sat. (3) Pulmonary edema: Plan: Suspect secondary to renal failure. - Continue Lasix - Hdz cath - strict I&Os - Daily weights - Low Na, fluid restricted diet (4) COPD (chronic obstructive pulmonary disease) with emphysema: Plan: - Continue his regular maintenance inhalers and DuoNebs QID. (5) Chronic kidney disease, stage 4 (severe): Plan: At baseline - Undergoing 24h creatine clearance. (6) Hypertension: Plan: BP today is 140/75. - Continue amlodipine 5mg PO daily - Lasix as above (7) Severe protein-calorie malnutrition: Plan: Noted. - Consider dietary consult once not critically unwell (8) Opioid dependence: Plan: - Continue his usual hydrocodone/acetaminophen dosing (9) GERD (gastroesophageal reflux disease): Plan: - Switch omeprazole to pantoprazole per hospital formulary (10) CAD (coronary artery disease): Plan: No complaint of chest pain today for me. - Continue aspirin, unclear why he is not on statin. (11) Macrocytic anemia: Plan: Baseline hgb ~8 - 9 g/dL. Presently down to 7.4, but without sign of bleeding. B12 and folate previously high. - Consider peripheral smear although likely due to anemia of chronic disease & CKD. Myelodysplastic syndrome also possible. (12) DVT prophylaxis: Plan: SCDs - Defer heparin until hgb stable and decide on needing tunneled-line cath. Admission and Anticipated Discharge Date Admission Date: September 21, 2021 Subjective Very tired today for me. Reports improving shortness of breath. Reports no fevers/chills, chest pain, abdominal pain, nausea, or vomiting. Physical Exam Constitutional: WD/WN, vitals as above Eyes: EOM intact bilaterally; no conjunctival abnormality ENMT: external ear and nose normal, oropharynx normal Neck: trachea midline, no thyromegaly normal visual inspection Respiratory: normal respiratory effort, lungs clear to auscultation no respiratory distress Cardiovascular: RRR, no murmur, no edema Gastrointestinal (Abdomen): Inspection/Auscultation: abdomen normal to inspection; abdomen not distended Musculoskeletal: no cyanosis or clubbing, extremities motor strength 5/5 Skin: no rashes, warm and dry Neurologic: moves all extremities and awake Psychiatric: Orientation: alert, oriented to person and cooperative Results & Data Results & Data ([facility]) Vital Signs (Past 12 Hours) Vital Signs Pulse Resp BP Pulse Ox 09/22/21 14:12 101 H 23 96 09/22/21 11:31 84 22 138/77 98 09/22/21 08:02 89 17 100 PG Care Time/CCT Total # of Minutes Spent Total Time Spent with Patient: Total time spent is greater than 50% in coordination of care (as documented) at patient's floor/unit and/or counseling patient: Coding Level of Care Code 31857 Subseq Hosp Care Lvl 3 Diagnoses Acute on chronic respiratory failure with hypoxia J96.21 Hyperkalemia E87.5 Pulmonary edema J81.0 Chronicity: acute COPD (chronic obstructive pulmonary disease) with emphysema J43.9 Chronic kidney disease, stage 4 (severe) N18.4 Hypertension I10 Severe protein-calorie malnutrition E43 Opioid dependence F11.20 GERD (gastroesophageal reflux disease) K21.9 CAD (coronary artery disease) I25.10 Macrocytic anemia D53.9 DVT prophylaxis Z29.9 (1) Pulmonary edema Chronicity: acute Qualified Code(s): J81.0 - Acute pulmonary edema
[2021-09-22] MEDS ORDERED: METOPROLOL TARTRATE 1 MG/ML VIAL IV ONE (19:19)
[2021-09-22] MEDS ORDERED: METOPROLOL TARTRATE 1 MG/ML VIAL IV STA (19:20)
[2021-09-22] MEDS ORDERED: ALBUT/IPRATROP 3MG/0.5MG NEB 3 ML VIAL NEB SCH (19:45)
[2021-09-22] MEDS: TAMSULOSIN HCL 0.4 MG CAP PO SCH (20:24)
[2021-09-22] MEDS: MIRTAZAPINE TAB 15 MG TAB PO SCH (20:24)
[2021-09-22 20:35] LABS: BUN Creatinine Ratio 22.4 (10-20); Calcium 8.8 mg/dl (8.5-10.1); Creatinine Clr Calc Pharmacy 20.2 ml/min; Est GFR (African American) 22.2 ml/min; Est GFR (Non-African American) 19.1 ml/min; Potassium 6.2 mmol/L (3.5-5.1)
[2021-09-22] MEDS ORDERED: CALCIUM GLUCONATE 10% 1,000 MG in SODIUM CHLORIDE 0.9% 50 ML IV STA (20:51)
[2021-09-22] MEDS ORDERED: INSULIN HUMAN REGULAR PER UNIT 10 UNITS in SYRINGE 9.9 ML IV ONE (21:00)
--- NOTE | 2021-09-22 23:00 | Surgery Consultation ---
Date of Consultation September 22, 2021 Assessment & Plan (1) Hyperkalemia: Patient is currently being treated in the following manner: He is currently receiving Veltassa 8.4 mg daily He has received varying doses of Lasix He has received varying doses of insulin He has been given albuterol nebulizers Serial labs are being followed Consideration is being given to initiating dialysis to improve the patient's potassium levels if the above measures are not successful at keeping the cruz ent's potassium less than 6. General surgery has been requested to place a tunneled dialysis catheter, however, this procedure is not performed by all general surgeons and [facility] physician group. Patient has tentatively been made n.p.o. after midnight. Patient's medications were reviewed and he is not taking any anticoagulants. He is also not received any subcutaneous heparin or Lovenox this admission. He does take a baby aspirin daily. Would recommend keeping the patient n.p.o. until evaluated by attending physician in the morning and a determination is made if any surgeons are available who perform this requested procedure. If no surgeons are available to place a tunneled dialysis catheter and dialysis is needed it may need to be initiated via temporary line. History of Present Illness Reason for Consultation: Request for tunneled hemodialysis catheter Attending Physician: Chava Salazar MD History of Present Illness This is a 81-year-old patient who was admitted to [facility] on 09/21/2021. Patient was admitted with symptoms of sudden onset of shortness of breath that started the day of admission. Patient is noted to have chronic respiratory failure and utilizes 6 L via nasal cannula even at baseline. Due to this problem the patient was admitted to the hospital and he was placed on nebulizer therapy along with antibiotics. The patient was noted to have hyperkalemia at time of admission. The patient was noted to have this problem when he was previously hospitalized on September 15 at which time he was noted to have a potassium of 7.0. During this admission the patient signed out AGAINST MEDICAL ADVICE. The patient was noted to have hyperkalemia this admission and nephrology consultation was obtained and patient was being treated with insulin and calcium gluconate in order to decrease his potassium level. Nephrology was concerned that patient's potassium levels may not respond to such therapy and therefore there is concern the patient may require dialysis prompting a consultation for a placement of a tunneled dialysis catheter. I visit with the patient at bedside and he notes that since admission in the hospital his breathing has improved. He denies any fevers, shakes, chills. He denies any shortness of breath at the present time while he is resting in bed. He notes that he has never required dialysis in the past and he has never had any central lines in his internal jugular's bilaterally or his subclavian's bilaterally to the best of his knowledge. The patient's most recent labs were reviewed. He had a CBC from today at approximately 3:30 in the morning. His white blood cell count is noted to be normal. Hemoglobin and hematocrit are 7.4 and 24.1. Platelet count is noted to be within normal range. Coagulation studies are noted to be normal. Chemistry profile was most recently drawn at approximately 8:00 PM this evening showed his sodium is 136 and his potassium is 6.2. His BUN and creatinine are 67 and 2.9. His potassium over the course of his admission has ranged anywhere from 7.0-6.0. The patient's potassium is near his baseline. I discussed with the nurse who is attending to the patient and to the best of her knowledge there are no definite plans to initiate dialysis and this may hinge on future potassium levels. It is noteworthy mention that the patient has had a Covid test performed most recently on 09/21/2021 which was noted to be negative. At the time of my interview the patient was resting comfortably in bed in no distress. Allergies Allergy/AdvReac Type Severity Reaction Status Date / Time cefuroxime Allergy Intermediate rash Verified 09/21/21 15:57 lisinopril Allergy Mild itching Verified 09/21/21 15:57 Home Medications Medication Instructions Recorded Confirmed Type aspirin 81 mg tablet,delayed 81 mg PO QAM 05/06/19 09/21/21 History release multivitamin (Daily Multi-Vitamin) 1 tab PO DAILY 05/28/21 09/21/21 History hydrocodone 10 mg-acetaminophen 2 tab PO Q6H PRN #120 tab MDD 8 09/01/21 09/21/21 Rx 325 mg tablet tabs lorazepam 0.5 mg tablet 0.5 mg PO TID PRN #90 tab 09/03/21 09/21/21 Rx albuterol sulfate 90 mcg/actuation 2 inh INHALATION Q6H PRN #8.5 g 09/17/21 09/21/21 Rx aerosol inhaler amlodipine 5 mg tablet 5 mg PO DAILY #30 tab 09/17/21 09/21/21 Rx ferrous sulfate 325 mg (65 mg 325 mg PO DAILY #30 tab 09/17/21 09/21/21 Rx iron) tablet,delayed release fluticasone fur. 200 mcg-umeclid 1 inh INHALATION DAILY #60 ea 09/17/21 09/21/21 Rx 62.5 mcg-vilant 25 mcg inhalat.powder (Trelegy Ellipta) mirtazapine 30 mg tablet 30 mg PO QPM #30 tab 09/17/21 09/21/21 Rx nitroglycerin 0.4 mg sublingual 0.4 mg SUBLINGUAL DIRECTED PRN 09/17/21 09/21/21 Rx tablet #25 tab omeprazole 20 mg capsule,delayed 20 mg PO DAILY #30 cap 09/17/21 09/21/21 Rx release tamsulosin 0.4 mg capsule 0.4 mg PO QPM #30 cap 09/17/21 09/21/21 Rx venlafaxine 37.5 mg 37.5 mg PO DAILY 30 Days #30 cap 09/17/21 09/21/21 Rx capsule,extended release 24 hr bumetanide 1 mg tablet 1 mg PO QAM 09/21/21 09/21/21 History Patient History Medical History AAA (abdominal aortic aneurysm) Acute hypoxemic respiratory failure Anemia of chronic disease Anxiety Bilateral pleural effusion CAD (coronary artery disease) PTCA with stent of RCA 1994 Chronic kidney disease, stage 4 (severe) Chronic pain Chronic renal insufficiency 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 exacerbation Essential tremor GERD (gastroesophageal reflux disease) Hyperlipidemia LDL goal <70 Hypertension Lower urinary tract symptoms (LUTS) Multiple rib fractures Opioid dependence treated with opiates for chronic low back pain for 10+ years Septal myocardial infarction SOB (shortness of breath) Tobacco abuse counseling Vitamin B12 deficiency Surgical History H/O heart artery stent (~1994) Family History Denies family history of Ovarian cancer Prostate cancer Myocardial infarction Breast cancer Colorectal cancer Social History Smoking Status: Former smoker Tobacco Type: Cigarettes Cigarettes Per Day: 10; Second Hand Exposure: No; Hx Alcohol Use: No Hx Substance Use: No Preferred Language: Jordanian Communication Ability: Effective Visual Impairment: No Limitations Hearing Ability: Normal Wheel Roller Required: No Beliefs That Will Affect Care: None marital status: Current Living Situation: Alone Current Living Situation Comment: Alone at home in apartment after of in March current occupational status: 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 many Children do You have: 1 Feels Safe at Home: Yes Childhood Exposure to Second-Hand Smoke: Yes Dental Care, Regularly: No Physical Activity Frequency: Does not Exercise Seatbelt Use: always Sunscreen Use: No (doesn't really go outside ) Assistive Devices: Oxygen - Continuous Review of Systems Constitutional: no fever and no chills Eyes: no blind spots Ear, Nose, Mouth, Throat: no ear pain Respiratory: + dyspnea Cardiovascular: no chest pain Gastrointestinal: no abdominal pain Genitourinary: no dysuria Musculoskeletal: no back pain Integumentary: no rash Neurologic: no localized weakness Physical Exam Constitutional: + thin; no acute distress Eyes: no conjunctival abnormality ENMT: Ears: no hearing impairment Mouth: no oropharynx abnormality Neck: trachea midline No central lines located in the subclavian or internal jugular veins bilaterally Respiratory: normal respiratory effort; no respiratory distress and no labored breathing Cardiovascular: Rate/Rhythm: regular rate and regular rhythm Gastrointestinal (Abdomen): Soft and nondistended Musculoskeletal: No calf tenderness Skin: no rashes Neurologic: moves all extremities Psychiatric: A+Ox3, euthymic affect Results & Data ([place]) Vital Signs (Past 12 Hours) Vital Signs Temp Pulse Pulse Resp BP BP BP 09/22/21 19:28 107 H 25 H 09/22/21 19:25 119 H 184/86 H 09/22/21 16:40 87 09/22/21 16:12 36.7 C 106 H 19 165/76 H 09/22/21 14:12 101 H 23 09/22/21 11:31 84 22 138/77 Pulse Ox 09/22/21 19:28 97 09/22/21 19:25 09/22/21 16:40 09/22/21 16:12 94 09/22/21 14:12 96 09/22/21 11:31 98 PG Care Time/CCT Total # of Minutes Spent Total Time Spent with Patient: Total time spent is greater than 50% in coordination of care (as documented) at patient's floor/unit and/or counseling patient: Coding Level of Care Code 52690 Inpt Consult Level 5 Diagnoses Hyperkalemia E87.5
[2021-09-23] MEDS: HYDROcodone/ACETAMINOPHEN 10/325 TAB PO PRN ×4 (00:50→23:55)
[2021-09-23] MEDS ORDERED: ADENOSINE IV SOLN 3 MG/ML 2 ML VIAL IV ONE ×2 (01:29→01:36)
[2021-09-23] MEDS ORDERED: METOPROLOL TARTRATE 1 MG/ML VIAL IV STA (01:30)
[2021-09-23] MEDS ORDERED: CALCIUM GLUCONATE 10% 2,000 MG in SODIUM CHLORIDE 0.9% 50 ML IV ONE (01:32)
[2021-09-23] MEDS ORDERED: METOPROLOL TARTRATE 1 MG/ML VIAL IV ONE (01:37)
[2021-09-23] MEDS ORDERED: CALCIUM GLUCONATE 10% 1,000 MG in SODIUM CHLORIDE 0.9% 50 ML IV ONE (01:39)
[2021-09-23] MEDS ORDERED: FUROSEMIDE 40 MG/4 ML VIAL IV ONE (01:44)
[2021-09-23] MEDS ORDERED: ADENOSINE IV SOLN 3 MG/ML 2 ML VIAL IV STA (01:44)
[2021-09-23] MEDS ORDERED: dilTIAZem HCl 5 MG/ML 5 ML VIAL IV STA ×2 (01:50→02:01)
[2021-09-23] MEDS ORDERED: dilTIAZem HCl 5 MG/ML 5 ML VIAL IV ONE (01:55)
--- NOTE | 2021-09-23 02:11 | Communication Note ---
Date of Service: September 23, 2021 Contacted by nursing staff at 7:00pm for patient in SVT. Rhythm corrected after having patient blod through a straw. He was also given metoprolol 5mg IV x1. BMP at that time showed K of 6.2 (has been persistently high and preparing for dialysis in the coming days). He was given calcium gluconate 2g IV, insulin 10u with D50. Prior to leaving the room patient's HR in the 90s. Contacted by nursing again at 1:30am for patient in SVT. Patient hemodynamically stable during time of event. Received first 6mg adenosine, then 12mg. During both doses patient's HR briefly returned to NSR but then increased back up to HR 180s. Patient was then given diltiazem 10mg IV with decrease in HR consistently to 130s, appeared to be AFib. Another diltiazem 10mg IV x1 given, with decrease in HR to 100-120s. Patient was then ordered diltiazem gtt. BMP again ordered, noted to have K of 5.7. Mg level of 1.3, Mag Sulfate 4g IV ordered. Resident Activity Tracking Resident Involvement: Resident Care Provided Care Provided: Adult [facility]
[2021-09-23] MEDS ORDERED: STAT IV Infusion **Titration per Protocol STA (02:20)
[2021-09-23 02:29] LABS: BUN Creatinine Ratio 22.6 (10-20); Calcium 9.1 mg/dl (8.5-10.1); Creatinine Clr Calc Pharmacy 21.5 ml/min; Est GFR (African American) 23.9 ml/min; Est GFR (Non-African American) 20.6 ml/min; Magnesium 1.3 mg/dl (1.8-2.4); Potassium 5.7 mmol/L (3.5-5.1)
[2021-09-23] MEDS: dilTIAZem HCL 125 MG in DEXTROSE 5% 100 ML IV SCH ×2 (03:03→16:48)
[2021-09-23] MEDS: MAGNESIUM SULFATE / D5W 1 GM/100 ML BAG IV SCH ×4 (03:04→08:19)
[2021-09-23] MEDS: PIPERACILLIN/TAZOBACTAM 3.375 GM in DEXTROSE 5% 100 ML IV SCH (06:39)
--- NOTE | 2021-09-23 06:39 | Electrocardiogram Report ---
Test Reason : Blood Pressure : / mmHG Vent. Rate : 109 BPM Atrial Rate : 109 BPM P-R Int : 130 ms QRS Dur : 088 ms QT Int : 332 ms P-R-T Axes : 049 051 061 degrees QTc Int : 447 ms Sinus tachycardia Otherwise normal ECG When compared with ECG of 15-SEP-2021 01:09, No significant change was found Confirmed by Wes Lai ([id number]) on 09/23/2021 6:38:58 AM Referred By: ED Confirmed By:Wes Lai
[2021-09-23 06:59] LABS: Hematocrit (blood only) 27.1 % (42-52); Hemoglobin 8.3 g/dL (14.0-18.0); Mean Corpuscular Hemoglobin 32.5 pg (25-34); Mean Corpuscular Hgb Conc 30.6 g/dL (32-36); Mean Corpuscular Volume 106.3 fL (80-100); Mean Platelet Volume 9.6 fL (7.4-10.4); Platelet Count 392 K/uL (130-400); RDW Coefficient of Variation 15.1 % (11.5-14.5); RDW Standard Deviation 60.2 fL (36.4-46.3); Red Blood Count 2.55 M/uL (4.7-6.1); White Blood Count 9.76 K/uL (4.8-10.8)
[2021-09-23] MEDS: LEVALBUTEROL HCL 0.63 MG/3 ML NEB NEB SCH ×3 (07:12→19:35)
[2021-09-23 07:24] LABS: BUN Creatinine Ratio 22.1 (10-20); Creatinine Clr Calc Pharmacy 20.4 ml/min; Est GFR (African American) 22.9 ml/min; Est GFR (Non-African American) 19.8 ml/min; Potassium 5.6 mmol/L (3.5-5.1)
[2021-09-23] MEDS: FERROUS SULFATE 325 MG TAB PO SCH (08:19)
[2021-09-23] MEDS: METOPROLOL SUCC 50MG EXT REL TAB PO SCH (08:19)
[2021-09-23] MEDS: ASPIRIN 81 MG ECTAB PO SCH (08:19)
[2021-09-23] MEDS: UMECLIDINIUM/VILANTEROL 62.5/25MCG 7 PUFFS/INHALER INH SCH (08:19)
[2021-09-23] MEDS: VENLAFAXINE HCL XR 37.5 MG CAPXR PO SCH (08:19)
[2021-09-23] MEDS: FLUTICASONE FUROATE 200MCG 14 PUFFS/INHALER INH SCH (08:19)
[2021-09-23] MEDS: PANTOprazole 40 MG TAB PO SCH (08:19)
[2021-09-23] MEDS: PATIROMER CALCIUM SORBITEX 8.4 GM PACK PO SCH (08:21)
--- NOTE | 2021-09-23 10:42 | Nephrology Progress Note ---
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 Renal imaging otherwise unremarkable. Admitted with shortness of breath, volume overload and persistent hyperkalemia with EKG changes. Received dose of Veltassa, insulin, D50 and calcium gluconate. Reports improvement in respiratory status. Repeat K was 5.6 this am. -- Continue on Veltassa daily, low-potassium diet -- monitor intake and output. -- as potassium has been staying mostly around 6 or higher over last 1 month despite repeated intervention and potassium lowering agent, with significantly low eGFR there is high chance that we may eventually have to start him on dialysis. We discussed different management options including conservative management considering overall his poor health. we also discussed about possible hospice care however he feels he is not ready to make that decision yet. During last admission in August he was evaluated by palliative care and he does not feel it would be helpful to have palliative care involved again. He discussed with his daughter and his daughter feels he would not tolerate dialysis and explained that eventually it will be his decision but agree with his daughter that he would be poor candidate for dialysis. Before discharge we should have some decision regarding goals of care going forward with either plan for getting vascular access and dialysis if needed in next few weeks or going home with hospice care. He would like to take some time and think about it. Will follow Admission and Anticipated Discharge Date Admission Date: September 21, 2021 Subjective Floyd was seen and examined of this morning. He denies any symptom and feels at his baseline. Potassium slightly improved to 5.6 this morning, creatinine up to 2.9. decent urine output, 1 L over last 24 hours. Blood pressure improved. Review of Systems Constitutional: as per Subjective / HPI; no fever, no chills, no weakness and no weight loss Physical Exam Constitutional: WD/WN, vitals as above + cachectic; no acute distress Eyes: + anicteric sclerae ENMT: Ears: no hearing impairment Neck: normal visual inspection Respiratory: normal respiratory effort; no respiratory distress Cardiovascular: RRR, no murmur, no edema Neurologic: no focal motor deficits and not confused Psychiatric: Orientation: alert and oriented x 3 Affect: euthymic affect Results & Data ([facility]) Vital Signs (Past 12 Hours) Vital Signs Temp Pulse Pulse Resp BP BP BP 09/23/21 05:02 113 H 129/82 09/23/21 03:19 36.6 C 134 H 20 132/66 09/23/21 02:20 108 H 130/76 09/23/21 02:16 129 H 136/79 09/23/21 02:13 135 H 110/76 09/23/21 01:58 111 H 124/75 09/23/21 01:51 159 H 128/87 09/23/21 01:35 155 H 124/65 09/23/21 00:29 98 H 22 09/23/21 00:07 97 H 09/23/21 00:04 36.7 C 96 H 22 179/92 H Pulse Ox 09/23/21 05:02 09/23/21 03:19 97 09/23/21 02:20 09/23/21 02:16 09/23/21 02:13 09/23/21 01:58 09/23/21 01:51 09/23/21 01:35 09/23/21 00:29 96 09/23/21 00:07 09/23/21 00:04 97 PG Care Time/CCT Total # of Minutes Spent Total Time Spent with Patient: Total time spent is greater than 50% in coordination of care (as documented) at patient's floor/unit and/or counseling patient: Coding Level of Care Code 52902 Subseq Hosp Care Lvl 3 Diagnoses Hyperkalemia E87.5 Chronic kidney disease, stage 4 (severe) N18.4 Pulmonary edema J81.0 Chronicity: acute Chronic anemia D64.9 (1) Pulmonary edema Chronicity: acute Qualified Code(s): J81.0 - Acute pulmonary edema
[2021-09-23] MEDS: LORazepam 0.5 MG TAB PO PRN ×2 (10:46→20:31)
--- NOTE | 2021-09-23 10:55 | Electrocardiogram Report ---
Test Reason : Blood Pressure : / mmHG Vent. Rate : 089 BPM Atrial Rate : 089 BPM P-R Int : 118 ms QRS Dur : 084 ms QT Int : 370 ms P-R-T Axes : 039 059 062 degrees QTc Int : 450 ms Poor data quality, interpretation may be adversely affected Normal sinus rhythm Possible Left atrial enlargement Borderline ECG When compared with ECG of 21-SEP-2021 14:08, No significant change was found Confirmed by Wes Lai ([id number]) on 09/23/2021 10:55:00 AM Referred By: REFERRED SELF Confirmed By:Wes Lai
--- NOTE | 2021-09-23 16:53 | Hospitalist Progress Note ---
Date of Service September 23, 2021 Assessment & Plan (1) Hyperkalemia: Plan: Longstanding history of this. Previously signed out against medical advice on September 15 with potassium 7.0. - Continue Veltassa - Continue Lasix as needed; presently appears pretty euvolemic. - Ongoing management in discussion with nephrology - If cannot keep K < 6.0, will consider tunnelled-line and initiation of dialysis. Holding off for now. (2) Acute on chronic respiratory failure with hypoxia: Plan: Aim O2 sats > 88% due to COPD & CHF. - Presently needing 5L Oxymask with good O2 sat. (3) Pulmonary edema: Plan: Suspect secondary to renal failure. - Hdz cath - strict I&Os - Daily weights - Low Na, fluid restricted diet -> Switch to home Bumex tomorrow. (4) COPD (chronic obstructive pulmonary disease) with emphysema: Plan: - Continue his regular maintenance inhalers and DuoNebs QID. (5) Chronic kidney disease, stage 4 (severe): Plan: At baseline - Undergoing 24h creatine clearance. (6) Hypertension: Plan: BP today is 120/85. - Continue amlodipine 5mg PO daily - Bumex as above (7) Severe protein-calorie malnutrition: Plan: Noted. - Consider dietary consult once not critically unwell (8) Opioid dependence: Plan: - Continue his usual hydrocodone/acetaminophen dosing (9) GERD (gastroesophageal reflux disease): Plan: - Switch omeprazole to pantoprazole per hospital formulary (10) CAD (coronary artery disease): Plan: No complaint of chest pain today for me. - Continue aspirin, unclear why he is not on statin. (11) Macrocytic anemia: Plan: Baseline hgb ~8 - 9 g/dL. Presently down to 7.4, but without sign of bleeding. B12 and folate previously high. - Consider peripheral smear although likely due to anemia of chronic disease & CKD. Myelodysplastic syndrome also possible. (12) DVT prophylaxis: Plan: Heparin 5,000 units SQ Q12h Admission and Anticipated Discharge Date Admission Date: September 21, 2021 Subjective Doing better today. Less shortness of breath. Potassium coming down, and he is more alert and awake today. Reports no fevers/chills, chest pain, abdominal pain, nausea, or vomiting. Physical Exam Constitutional: WD/WN, vitals as above Eyes: EOM intact bilaterally; no conjunctival abnormality ENMT: external ear and nose normal, oropharynx normal Neck: trachea midline, no thyromegaly normal visual inspection Respiratory: normal respiratory effort, lungs clear to auscultation no respiratory distress Cardiovascular: RRR, no murmur, no edema Gastrointestinal (Abdomen): Inspection/Auscultation: abdomen normal to inspection; abdomen not distended Musculoskeletal: no cyanosis or clubbing, extremities motor strength 5/5 Skin: no rashes, warm and dry Neurologic: moves all extremities and awake Psychiatric: Orientation: alert, oriented to person and cooperative Results & Data Results & Data ([facility]) Vital Signs (Past 12 Hours) Vital Signs Temp Pulse Pulse Resp BP Pulse Ox 09/23/21 16:06 36.6 C 100 H 18 123/83 95 09/23/21 13:44 115 H 21 94 09/23/21 11:26 36.4 C L 100 H 16 127/77 96 09/23/21 05:02 113 H 129/82 PG Care Time/CCT Total # of Minutes Spent Total Time Spent with Patient: Total time spent is greater than 50% in coordination of care (as documented) at patient's floor/unit and/or counseling patient: Coding Level of Care Code 32857 Subseq Hosp Care Lvl 2 Diagnoses Hyperkalemia E87.5 Acute on chronic respiratory failure with hypoxia J96.21 Pulmonary edema J81.0 Chronicity: acute COPD (chronic obstructive pulmonary disease) with emphysema J43.9 Chronic kidney disease, stage 4 (severe) N18.4 Hypertension I10 Severe protein-calorie malnutrition E43 Opioid dependence F11.20 GERD (gastroesophageal reflux disease) K21.9 CAD (coronary artery disease) I25.10 Macrocytic anemia D53.9 DVT prophylaxis Z29.9 (1) Pulmonary edema Chronicity: acute Qualified Code(s): J81.0 - Acute pulmonary edema
[2021-09-23] MEDS ORDERED: PIPERACILLIN/TAZOBACTAM 3.375 GM in DEXTROSE 5% 100 ML IV SCH (18:00)
[2021-09-23] MEDS: HEPARIN SOD 5,000 UNIT/0.5 ML VIAL SQ SCH (20:23)
[2021-09-23] MEDS: dilTIAZem HCl 60 MG TAB PO SCH (20:23)
[2021-09-23] MEDS: MIRTAZAPINE TAB 15 MG TAB PO SCH (20:24)
[2021-09-23] MEDS: TAMSULOSIN HCL 0.4 MG CAP PO SCH (20:25)
[2021-09-23] MEDS: LEVALBUTEROL HCL 0.63 MG/3 ML NEB NEB PRN (22:45)
[2021-09-24] MEDS: LEVALBUTEROL HCL 0.63 MG/3 ML NEB NEB SCH ×4 (01:58→20:16)
[2021-09-24] MEDS: dilTIAZem HCL 125 MG in DEXTROSE 5% 100 ML IV SCH ×2 (05:27→16:50)
[2021-09-24] MEDS: HYDROcodone/ACETAMINOPHEN 10/325 TAB PO PRN ×4 (06:33→23:52)
[2021-09-24 06:36] LABS: Patient Weight 65.3 kg
[2021-09-24 07:05] LABS: Hematocrit (blood only) 28.3 % (42-52); Hemoglobin 8.7 g/dL (14.0-18.0); Mean Corpuscular Hemoglobin 32.2 pg (25-34); Mean Corpuscular Hgb Conc 30.7 g/dL (32-36); Mean Corpuscular Volume 104.8 fL (80-100); Mean Platelet Volume 10.7 fL (7.4-10.4); Platelet Count 337 K/uL (130-400); RDW Coefficient of Variation 15.2 % (11.5-14.5); RDW Standard Deviation 57.8 fL (36.4-46.3); White Blood Count 8.74 K/uL (4.8-10.8)
[2021-09-24] MEDS: LORazepam 0.5 MG TAB PO PRN ×2 (07:10→20:29)
[2021-09-24 07:11] LABS: Creatinine 24 Hour Urine 0.5 gm/24 HR (0.6-2.5); Urine Creatinine 60.5 mg/dl
[2021-09-24 07:45] LABS: BUN Creatinine Ratio 23.3 (10-20); Calcium 8.8 mg/dl (8.5-10.1); Creatinine Clr Calc Pharmacy 18.7 ml/min; Est GFR (African American) 22.1 ml/min; Magnesium 2.3 mg/dl (1.8-2.4); Potassium 5.7 mmol/L (3.5-5.1)
[2021-09-24] MEDS: VENLAFAXINE HCL XR 37.5 MG CAPXR PO SCH (07:47)
[2021-09-24] MEDS: BUMETANIDE 1 MG TAB PO SCH (07:47)
[2021-09-24] MEDS: dilTIAZem HCl 60 MG TAB PO SCH ×4 (07:47→20:29)
[2021-09-24] MEDS: ASPIRIN 81 MG ECTAB PO SCH (07:48)
[2021-09-24] MEDS: FERROUS SULFATE 325 MG TAB PO SCH (07:48)
[2021-09-24] MEDS: METOPROLOL SUCC 50MG EXT REL TAB PO SCH (07:48)
[2021-09-24] MEDS: HEPARIN SOD 5,000 UNIT/0.5 ML VIAL SQ SCH ×2 (07:48→20:30)
[2021-09-24] MEDS: FLUTICASONE FUROATE 200MCG 14 PUFFS/INHALER INH SCH (07:48)
[2021-09-24] MEDS: PANTOprazole 40 MG TAB PO SCH (07:48)
[2021-09-24] MEDS: PATIROMER CALCIUM SORBITEX 8.4 GM PACK PO SCH ×2 (07:49→13:17)
[2021-09-24] MEDS: UMECLIDINIUM/VILANTEROL 62.5/25MCG 7 PUFFS/INHALER INH SCH (07:49)
--- NOTE | 2021-09-24 07:54 | Electrocardiogram Report ---
Test Reason : Blood Pressure : / mmHG Vent. Rate : 167 BPM Atrial Rate : 179 BPM P-R Int : 000 ms QRS Dur : 082 ms QT Int : 280 ms P-R-T Axes : 000 053 148 degrees QTc Int : 467 ms Atrial fibrillation with rapid ventricular response Nonspecific ST and T wave abnormality Abnormal ECG When compared with ECG of 22-SEP-2021 08:00, Atrial fibrillation has replaced Sinus rhythm Vent. rate has increased BY 78 BPM Nonspecific T wave abnormality now evident in Inferior leads Nonspecific T wave abnormality now evident in Lateral leads Confirmed by Wes Lai ([id number]) on 09/24/2021 7:54:08 AM Referred By: REFERRED SELF Confirmed By:Wes Lai
--- NOTE | 2021-09-24 08:04 | Electrocardiogram Report ---
Test Reason : Blood Pressure : / mmHG Vent. Rate : 123 BPM Atrial Rate : 131 BPM P-R Int : 000 ms QRS Dur : 082 ms QT Int : 312 ms P-R-T Axes : 000 055 057 degrees QTc Int : 446 ms Atrial fibrillation with rapid ventricular response Abnormal ECG When compared with ECG of 23-SEP-2021 01:37, Nonspecific T wave abnormality no longer evident in Lateral leads Confirmed by Wes Lai ([id number]) on 09/24/2021 8:03:46 AM Referred By: REFERRED SELF Confirmed By:Wes Lai
[2021-09-24 08:47] LABS: Creatinine Clearance Urine 11.5 ml/min (97-137)
[2021-09-24] MEDS: hydroCHLOROthiazide 25 MG TAB PO SCH (09:51)
--- NOTE | 2021-09-24 10:20 | Electrocardiogram Report ---
Test Reason : Blood Pressure : / mmHG Vent. Rate : 110 BPM Atrial Rate : 119 BPM P-R Int : 000 ms QRS Dur : 084 ms QT Int : 300 ms P-R-T Axes : 000 060 075 degrees QTc Int : 406 ms Atrial fibrillation with rapid ventricular response Abnormal ECG When compared with ECG of 23-SEP-2021 02:35, (unconfirmed) No significant change was found Confirmed by Antonio Berrios ([id number]) on 09/24/2021 10:19:47 AM Referred By: REFERRED SELF Confirmed By:Antonio Berrios
--- NOTE | 2021-09-24 12:28 | Nephrology Progress Note ---
Date of Service September 24, 2021 Assessment & Plan (1) Hyperkalemia: Plan: Unclear if Usman has been taking patiromer as prescribed. After discussion this AM, he expressed understanding re: risks/benefits and was agreeable to continue the medication. Patiromer increased to BID for now. Low potassium diet. Usman was using Mrs. Bowers with breakfast which he has now been advised to avoid. He Remains on Bumex 1 mg daily. (2) Chronic kidney disease, stage 4 (severe): Plan: Non-oliguric. Creatinine relatively stable. Clinical history consistent with sFSGS. Baseline creatinine 2.5 mg/dL. Usman does not want dialysis. He has been on palliative care at home with consideration for transition to hospice in the future given his multiple medical comorbidities and advanced COPD and kidney dysfunction. At this time, Usman remains full code. He states that he is not ready to diet. Medications are acceptable for kidney dysfunction. (3) Pulmonary edema: Plan: Bumex 1 mg daily. Goal to encourage slightly negative fluid balance. (4) Chronic anemia: Plan: Epogen 58084 units x 1 dose now. Update iron profile with next blood work. Admission and Anticipated Discharge Date Admission Date: September 21, 2021 Subjective No acute events overnight. Usman states that his breathing is the same. He does not feel there has been any improvement since he presented to the hospital. No fevers or chills. Appetite is poor. He had a cup with his patiromer sitting untouched. Usman stated that he is not sure that he wants to take the medication today. He remains a full code. New Afib noted. He told me that his primary goal is to return home for Canddio. He presented to the hospital with shortness of breath. He does not feel that he has improved but he admits that being in the hospital helps with his anxiety regarding his health. He confirmed that he does not want dialysis. After discussion, he told me that he is agreeable to taking medications for hyperkalemia. Review of Systems Review of Systems: All systems reviewed & are unremarkable except as noted in Subjective Physical Exam Constitutional: + ill appearing, + cachectic and + frail appearing; no acute distress Eyes: + anicteric sclerae; no corneal abnormality ENMT: Mouth: no oral mucosal abnormality and oral mucous membranes not dry Neck: normal visual inspection and trachea midline Respiratory: normal respiratory effort; + not able to speak in complete sentence Auscultation: lungs clear to auscultation bilaterally and + abnormal I/E ratio Cardiovascular: Rate/Rhythm: regular rate Heart Sounds: normal S1 and normal S2 Extremities: no edema Musculoskeletal: Extremities: no cyanosis and no clubbing Skin: + turgor decreased; no lesions Neurologic: Motor/Sensory: no tremor and no asterixis Psychiatric: Orientation: alert and oriented x 3 Results & Data ([facility]) Vital Signs (Past 12 Hours) Vital Signs Temp Pulse Pulse Pulse Resp BP Pulse Ox 09/24/21 11:50 36.3 C L 83 20 166/82 H 91 09/24/21 07:26 93 H 20 98 09/24/21 07:20 36.4 C L 87 24 176/92 H 100 09/24/21 06:21 101 H 09/24/21 03:40 36.5 C 72 24 156/86 H 94 09/24/21 01:59 69 20 99 Laboratory Results Laboratory Results - last 24 hr 09/24/21 09/24/21 09/24/21 00:00 06:35 06:35 WBC 8.74 RBC 2.70 L Hgb 8.7 L Hct 28.3 L MCV 104.8 H MCH 32.2 MCHC 30.7 L RDW Std Deviation 57.8 H RDW Coeff of Lucas 15.2 H Plt Count 337 MPV 10.7 H Sodium 136 Potassium 5.7 H Chloride 102 Carbon Dioxide 31 Anion Gap 3.0 BUN 69 H Creatinine 2.98 H Est Cr Clr Drug Dosing 18.7 Est GFR ( Amer) 22.1 Est GFR (Non-Af Amer) 19.0 BUN/Creatinine Ratio 23.3 H Glucose 92 Calcium 8.8 Magnesium 2.3 Specimen Hemolysis Urine Collection Time 24 Urine Total Volume 850 Urine Creatinine 60.5 Ur Creatinine 24 Hour 0.5 L Height (cm) 182.9 Weight (kg) 65.3 Creatinine Clearance 11.5 L PG Care Time/CCT Total # of Minutes Spent Total Time Spent with Patient: Total time spent is greater than 50% in coordination of care (as documented) at patient's floor/unit and/or counseling patient: Coding Level of Care Code 96544 Subseq Hosp Care Lvl 3 Diagnoses Hyperkalemia E87.5 Chronic kidney disease, stage 4 (severe) N18.4 Pulmonary edema J81.0 Chronicity: acute Chronic anemia D64.9 (1) Pulmonary edema Chronicity: acute Qualified Code(s): J81.0 - Acute pulmonary edema
[2021-09-24] MEDS ORDERED: EPOETIN ALFA 10,000 UNITS/ML VIAL SQ ONE (13:00)
[2021-09-24] MEDS: LEVALBUTEROL HCL 0.63 MG/3 ML NEB NEB PRN (14:23)
--- NOTE | 2021-09-24 18:47 | Hospitalist Progress Note ---
Date of Service September 24, 2021 Assessment & Plan (1) Hyperkalemia: Plan: ongoing. main culprit - advanced CKD. spoke with Dr Garcia - will add HCTZ to his bumex to enhance diuresis and hopefully drive down the K. Veltassa to be increased to BID dosing. is on chronic narcotics - could he have adrenal insufficiency? this could contribute to high K. unfortunately he received a large dose of solumedrol on day of presentation - random cortisol testing will be inaccurate. could consider a formal cosyntropin stim test. BMP am. (2) Acute on chronic respiratory failure with hypoxia: Plan: acute component 2nd to pulmonary edema from CKD. add HCTZ to his bumex. patient does NOT want HD - thus, volume overload may continue. (3) Pulmonary edema: Plan: cont bumex add HCTZ see above 2nd to CKD (4) COPD (chronic obstructive pulmonary disease) with emphysema: Plan: with resulting chronic hypoxic resp failure on 6 L NC O2 at baseline (5) Chronic kidney disease, stage 4 (severe): Plan: Cr today at baseline refractory hyperkalemia - as above (6) Hypertension: Plan: controlled (7) Severe protein-calorie malnutrition: Plan: suspect 2nd to advanced COPD CKD could contribute other factors possible as well (8) Opioid dependence: Plan: hydrocodone/acetaminophen prn (9) GERD (gastroesophageal reflux disease): Plan: PPI (10) CAD (coronary artery disease): Plan: no ischemic sx's at this time (11) Macrocytic anemia: Plan: H/H low but at baseline (12) DVT prophylaxis: Plan: Heparin 5,000 units SQ Q12h (13) Rapid atrial fibrillation: Plan: resolved converted spontaneously to NSR yesterday evening is on IR cardizem change to cardizem CD in am in addition to his metoprolol if he pursues hospice would not start anticoagulation Admission and Anticipated Discharge Date Admission Date: September 21, 2021 Subjective tele overnight - converted from a.fib back to NSR around 1800 last night patient resting comfortably in bed states breathing is similar to previous has HUGGINS eating "fair" voices he likely does not want HD, and states his daughters don't want him to have dialysis Review of Systems Review of Systems: gen - weak, fatigue cv - no chest pain pulm - HUGGINS; no dyspnea at rest GI - no pain musculo - c/o back pain Physical Exam Physical Exam: gen - thin, muscle wasting of facial muscles neck - JVD present mouth - MMM heart - RRR, s1 s2 lungs - bibasilar rales abd - soft NT ND ext - edema to the thighs, pulses 2+ b/l psych - restricted affect Results & Data Results & Data ([facility]) Vital Signs (Past 12 Hours) Vital Signs Temp Pulse Pulse Resp BP Pulse Ox 09/24/21 16:29 36.6 C 91 H 19 158/80 H 89 L 09/24/21 14:23 73 18 93 09/24/21 11:50 36.3 C L 83 20 166/82 H 91 09/24/21 07:26 93 H 20 98 09/24/21 07:20 36.4 C L 87 24 176/92 H 100 Laboratory Results Laboratory Results - last 24 hr 09/24/21 09/24/21 09/24/21 00:00 06:35 06:35 WBC 8.74 RBC 2.70 L Hgb 8.7 L Hct 28.3 L MCV 104.8 H MCH 32.2 MCHC 30.7 L RDW Std Deviation 57.8 H RDW Coeff of Lucas 15.2 H Plt Count 337 MPV 10.7 H Sodium 136 Potassium 5.7 H Chloride 102 Carbon Dioxide 31 Anion Gap 3.0 BUN 69 H Creatinine 2.98 H Est Cr Clr Drug Dosing 18.7 Est GFR ( Amer) 22.1 Est GFR (Non-Af Amer) 19.0 BUN/Creatinine Ratio 23.3 H Glucose 92 Calcium 8.8 Magnesium 2.3 Specimen Hemolysis Urine Collection Time 24 Urine Total Volume 850 Urine Creatinine 60.5 Ur Creatinine 24 Hour 0.5 L Height (cm) 182.9 Weight (kg) 65.3 Creatinine Clearance 11.5 L PG Care Time/CCT Total # of Minutes Spent Total Time Spent with Patient: Total time spent is greater than 50% in coordination of care (as documented) at patient's floor/unit and/or counseling patient: Coding Level of Care Code 99344 Subseq Hosp Care Lvl 3 Diagnoses Hyperkalemia E87.5 Acute on chronic respiratory failure with hypoxia J96.21 Pulmonary edema J81.0 Chronicity: acute COPD (chronic obstructive pulmonary disease) with emphysema J43.9 Chronic kidney disease, stage 4 (severe) N18.4 Hypertension I10 Severe protein-calorie malnutrition E43 Opioid dependence F11.20 GERD (gastroesophageal reflux disease) K21.9 CAD (coronary artery disease) I25.10 Macrocytic anemia D53.9 DVT prophylaxis Z29.9 Rapid atrial fibrillation I48.91 (1) Pulmonary edema Chronicity: acute Qualified Code(s): J81.0 - Acute pulmonary edema
[2021-09-24] MEDS: MIRTAZAPINE TAB 15 MG TAB PO SCH (20:29)
[2021-09-24] MEDS: TAMSULOSIN HCL 0.4 MG CAP PO SCH (20:30)
[2021-09-25] MEDS: LEVALBUTEROL HCL 0.63 MG/3 ML NEB NEB SCH ×4 (00:42→19:38)
[2021-09-25] MEDS: LORazepam 0.5 MG TAB PO PRN ×3 (03:20→19:50)
[2021-09-25] MEDS: HYDROcodone/ACETAMINOPHEN 10/325 TAB PO PRN ×3 (06:11→19:36)
[2021-09-25] MEDS: PANTOprazole 40 MG TAB PO SCH (07:46)
[2021-09-25] MEDS: METOPROLOL SUCC 50MG EXT REL TAB PO SCH (07:46)
[2021-09-25] MEDS: BUMETANIDE 1 MG TAB PO SCH (07:46)
[2021-09-25] MEDS: UMECLIDINIUM/VILANTEROL 62.5/25MCG 7 PUFFS/INHALER INH SCH (07:46)
[2021-09-25] MEDS: FLUTICASONE FUROATE 200MCG 14 PUFFS/INHALER INH SCH (07:47)
[2021-09-25] MEDS: FERROUS SULFATE 325 MG TAB PO SCH (07:47)
[2021-09-25] MEDS: ASPIRIN 81 MG ECTAB PO SCH (07:47)
[2021-09-25] MEDS: VENLAFAXINE HCL XR 37.5 MG CAPXR PO SCH (07:47)
[2021-09-25] MEDS: hydroCHLOROthiazide 25 MG TAB PO SCH (07:47)
[2021-09-25] MEDS: HEPARIN SOD 5,000 UNIT/0.5 ML VIAL SQ SCH ×2 (07:48→20:37)
[2021-09-25] MEDS: PATIROMER CALCIUM SORBITEX 8.4 GM PACK PO SCH ×2 (07:49→15:17)
[2021-09-25] MEDS: dilTIAZem HCL 120 MG CAPCR PO SCH (08:13)
[2021-09-25 08:25] LABS: BUN Creatinine Ratio 24.4 (10-20); Calcium 8.8 mg/dl (8.5-10.1); Creatinine Clr Calc Pharmacy 20.2 ml/min; Est GFR (African American) 23.5 ml/min; Est GFR (Non-African American) 20.3 ml/min; Potassium 5.4 mmol/L (3.5-5.1)
[2021-09-25 08:29] LABS: Ferritin 169.5 ng/ml (8-388)
--- NOTE | 2021-09-25 15:34 | Nephrology Progress Note ---
Date of Service September 25, 2021 Assessment & Plan (1) Hyperkalemia: Plan: Continue Patiromer BID. Remains on HCTZ + Bumex combination. Mild hyponatremia associated with thiazide/combo diuretic therapy and noted poor solute intake; will monitor. Low potassium diet. Repeat metabolic profile tomorrow AM. (2) Chronic kidney disease, stage 4 (severe): Plan: Good urine output. Creatinine stable. Clinical history consistent with sFSGS. Dialysis will not be considered part of the care plan based on prior discussions. Medications are acceptable for kidney dysfunction. (3) Pulmonary edema: Plan: Bumex 1 mg daily. Remains in an appropriately negative daily fluid balance. (4) Chronic anemia: Plan: Epogen 44192 units x 1 dose provided yesterday. Tsat 17 and ferritin 170. Venofer 200 mg IV will be provided today. Admission and Anticipated Discharge Date Admission Date: September 21, 2021 Subjective No acute events overnight. Usman was seen and evaluated this afternoon with his daughter, Allison, at the bedside. Allison drove out from [place] today and will be returning home this evening. Overall, Usman seems to report some improvement in his breathing today. He was sitting up in bed and appeared more comfortable than yesterday. He was in much better spirits. He did talk about potentially going home but did not express any interest after hospice was mentioned. He is hoping for a "Candido miracle" and ultimately appreciative of small gains. Review of Systems Review of Systems: All systems reviewed & are unremarkable except as noted in HPI & below Physical Exam Constitutional: + cachectic and + frail appearing; no acute distress Eyes: + anicteric sclerae; no corneal abnormality ENMT: Mouth: no oral mucosal abnormality and oral mucous membranes not dry Neck: normal visual inspection and trachea midline Respiratory: normal respiratory effort and able to speak in complete sentences; no respiratory distress Auscultation: lungs clear to auscultation bilaterally and + abnormal I/E ratio Cardiovascular: Rate/Rhythm: regular rate Heart Sounds: normal S1 and normal S2 Extremities: no edema Musculoskeletal: Extremities: no cyanosis and no clubbing Skin: + turgor decreased; no lesions Neurologic: Motor/Sensory: no tremor and no asterixis Psychiatric: Orientation: alert and oriented x 3 Results & Data ([facility]) Vital Signs (Past 12 Hours) Vital Signs Temp Pulse Pulse Resp BP BP Pulse Ox 09/25/21 13:19 63 18 97 09/25/21 11:15 36.5 C 80 20 166/82 H 94 09/25/21 11:00 80 09/25/21 08:00 86 09/25/21 07:26 66 20 91 09/25/21 06:57 36.6 C 85 20 176/86 H 90 09/25/21 06:26 66 Laboratory Results Laboratory Results - last 24 hr 09/25/21 07:00 Sodium 134 L Potassium 5.4 H Chloride 102 Carbon Dioxide 29 Anion Gap 3.0 BUN 69 H Creatinine 2.83 H Est Cr Clr Drug Dosing 20.2 Est GFR ( Amer) 23.5 Est GFR (Non-Af Amer) 20.3 BUN/Creatinine Ratio 24.4 H Glucose 98 Calcium 8.8 Iron 35 Transferrin 150 L Transferrin % Sat 17 L Ferritin 169.5 PG Care Time/CCT Total # of Minutes Spent Total Time Spent with Patient: Total time spent is greater than 50% in coordination of care (as documented) at patient's floor/unit and/or counseling patient: Coding Level of Care Code 38521 Subseq Hosp Care Lvl 3 Diagnoses Hyperkalemia E87.5 Chronic kidney disease, stage 4 (severe) N18.4 Pulmonary edema J81.0 Chronicity: acute Chronic anemia D64.9 (1) Pulmonary edema Chronicity: acute Qualified Code(s): J81.0 - Acute pulmonary edema
[2021-09-25] MEDS ORDERED: IRON SUCROSE 200 MG in 0.9 % SODIUM CHLORIDE 100 ML IV ONE (16:00)
[2021-09-25] MEDS ORDERED: BUMETANIDE 1 MG in SYRINGE 0 ML IV ONE (17:00)
--- NOTE | 2021-09-25 19:35 | Hospitalist Progress Note ---
Date of Service September 25, 2021 Assessment & Plan (1) Hyperkalemia: Plan: ongoing but modestly improved overnight. main culprit - advanced CKD. added HCTZ to his bumex to enhance diuresis and hopefully drive down the K on 09/24/21. Veltassa increased to BID dosing as well. is on chronic narcotics - could he have adrenal insufficiency? this could contribute to high K. unfortunately he received a large dose of solumedrol on day of presentation - random cortisol testing will be inaccurate. could consider a formal cosyntropin stim test but defer for now. BMP am. (2) Acute on chronic respiratory failure with hypoxia: Plan: acute component 2nd to pulmonary edema from CKD. patient does NOT want HD - thus, volume overload may continue if it remains refractory to diuretics. (3) Pulmonary edema: Plan: pulm edema/volume overload -- 2nd to advanced CKD cont bumex 1mg qam added an additional 1mg IV x 1 this afternoon as his weights, if accurate, are still at least 7-9kg higher than dry weight (and examines volume overloaded considerably) cont HCTZ (4) COPD (chronic obstructive pulmonary disease) with emphysema: Plan: with resulting chronic hypoxic resp failure on 6 L NC O2 at baseline (5) Chronic kidney disease, stage 4 (severe): Plan: Cr today again at baseline refractory hyperkalemia - as above but improving (6) Hypertension: Plan: controlled (7) Severe protein-calorie malnutrition: Plan: suspect 2nd to advanced COPD CKD could contribute as well (8) Opioid dependence: Plan: hydrocodone/acetaminophen prn strongly consider dose adjustment or addition of basal opiate consider palliative care consultation (they saw him in early August) - they could assist w/ pain management as well (9) GERD (gastroesophageal reflux disease): Plan: PPI (10) CAD (coronary artery disease): Plan: no ischemic sx's cont asa cont metoprolol (11) Macrocytic anemia: Plan: H/H low but at baseline (12) DVT prophylaxis: Plan: Heparin 5,000 units SQ Q12h (13) Rapid atrial fibrillation: Plan: resolved converted spontaneously to NSR 09/23/21 change cardizem IR to cardizem CD 120mg daily in addition to his metoprolol stop amlodipine if he pursues hospice would not start anticoagulation Plan: extensive update given to Allison, his daughter, by phone this evening Admission and Anticipated Discharge Date Admission Date: September 21, 2021 Subjective tele stable overnight - no PAF during my visit he had about 1200cc of urine in his fisher bag (from 0700 onward) he states is breathing is about the same or slighly better gets dyspneic with moving from bed to the chair no cough appetite fair feels weak lengthy discussion held with his daughter by phone late this evening she has encouraged hospice with her father but he is not receptive of such to date besides his breathing his other main complaint is that of chronic back pain in fact he said "I'm about due" (for his pain meds) reports he has been on the meds chronically and his dose has been the same for quite some time Review of Systems Review of Systems: gen - no fevers cv - no chest pain pulm - dyspnea on exertion GI - no pain Physical Exam Physical Exam: gen - thin, muscle wasting of facial muscles, NAD, pleasant neck - JVD present - slightly better mouth - MMM heart - RRR, s1 s2 lungs - bibasilar rales remain abd - soft NT ND BS+ ext - edema to the thighs, pulses 2+ b/l psych - restricted affect Results & Data Results & Data ([facility]) Vital Signs (Past 12 Hours) Vital Signs Temp Pulse Pulse Resp BP BP Pulse Ox 09/25/21 19:00 36.6 C 74 16 164/84 H 99 09/25/21 15:53 36.4 C L 68 18 177/83 H 94 09/25/21 13:19 63 18 97 09/25/21 11:15 36.5 C 80 20 166/82 H 94 09/25/21 11:00 80 09/25/21 08:00 86 Laboratory Results Laboratory Results - last 24 hr 09/25/21 07:00 Sodium 134 L Potassium 5.4 H Chloride 102 Carbon Dioxide 29 Anion Gap 3.0 BUN 69 H Creatinine 2.83 H Est Cr Clr Drug Dosing 20.2 Est GFR ( Amer) 23.5 Est GFR (Non-Af Amer) 20.3 BUN/Creatinine Ratio 24.4 H Glucose 98 Calcium 8.8 Iron 35 Transferrin 150 L Transferrin % Sat 17 L Ferritin 169.5 PG Care Time/CCT Total # of Minutes Spent Total Time Spent with Patient: Total time spent is greater than 50% in coordination of care (as documented) at patient's floor/unit and/or counseling patient: Coding Level of Care Code 35094 Subseq Hosp Care Lvl 3 Diagnoses Hyperkalemia E87.5 Acute on chronic respiratory failure with hypoxia J96.21 Pulmonary edema J81.0 Chronicity: acute COPD (chronic obstructive pulmonary disease) with emphysema J43.9 Chronic kidney disease, stage 4 (severe) N18.4 Hypertension I10 Severe protein-calorie malnutrition E43 Opioid dependence F11.20 GERD (gastroesophageal reflux disease) K21.9 CAD (coronary artery disease) I25.10 Macrocytic anemia D53.9 DVT prophylaxis Z29.9 Rapid atrial fibrillation I48.91 (1) Pulmonary edema Chronicity: acute Qualified Code(s): J81.0 - Acute pulmonary edema
[2021-09-25] MEDS: MIRTAZAPINE TAB 15 MG TAB PO SCH (20:37)
[2021-09-25] MEDS: TAMSULOSIN HCL 0.4 MG CAP PO SCH (20:37)
[2021-09-26] MEDS: LEVALBUTEROL HCL 0.63 MG/3 ML NEB NEB SCH ×4 (00:17→18:33)
[2021-09-26] MEDS: HYDROcodone/ACETAMINOPHEN 10/325 TAB PO PRN ×4 (01:02→19:01)
[2021-09-26] MEDS: PATIROMER CALCIUM SORBITEX 8.4 GM PACK PO SCH ×2 (07:08→13:53)
[2021-09-26 08:22] LABS: Albumin Level 2.4 gm/dl (3.4-5.0); BUN Creatinine Ratio 24.8 (10-20); Calcium 8.8 mg/dl (8.5-10.1); Creatinine Clr Calc Pharmacy 21.2 ml/min; Est GFR (Non-African American) 21.5 ml/min; Phosphorus 3.3 mg/dl (2.5-4.9); Potassium 4.8 mmol/L (3.5-5.1)
[2021-09-26] MEDS: BUMETANIDE 1 MG in SYRINGE 0 ML IV SCH ×2 (09:03→15:31)
[2021-09-26] MEDS: hydroCHLOROthiazide 25 MG TAB PO SCH (09:03)
[2021-09-26] MEDS: ASPIRIN 81 MG ECTAB PO SCH (09:03)
[2021-09-26] MEDS: FERROUS SULFATE 325 MG TAB PO SCH (09:03)
[2021-09-26] MEDS: FLUTICASONE FUROATE 200MCG 14 PUFFS/INHALER INH SCH (09:04)
[2021-09-26] MEDS: dilTIAZem HCL 120 MG CAPCR PO SCH (09:04)
[2021-09-26] MEDS: UMECLIDINIUM/VILANTEROL 62.5/25MCG 7 PUFFS/INHALER INH SCH (09:04)
[2021-09-26] MEDS: METOPROLOL SUCC 50MG EXT REL TAB PO SCH (09:05)
[2021-09-26] MEDS: HEPARIN SOD 5,000 UNIT/0.5 ML VIAL SQ SCH ×2 (09:05→20:40)
[2021-09-26] MEDS: VENLAFAXINE HCL XR 37.5 MG CAPXR PO SCH (09:06)
[2021-09-26] MEDS: PANTOprazole 40 MG TAB PO SCH (09:06)
[2021-09-26] MEDS: LEVALBUTEROL HCL 0.63 MG/3 ML NEB NEB PRN (10:32)
[2021-09-26] MEDS: LORazepam 0.5 MG TAB PO PRN ×2 (12:10→19:44)
--- NOTE | 2021-09-26 14:56 | Nephrology Progress Note ---
Date of Service September 26, 2021 Assessment & Plan (1) Hyperkalemia: Plan: Continue Patiromer BID. Remains on HCTZ + Bumex combination. Mild hyponatremia associated with thiazide/combo diuretic therapy and noted poor solute intake; will monitor. Low potassium diet. Monitor metabolic profile daily while inpatient. (2) Chronic kidney disease, stage 4 (severe): Plan: Good urine output. Creatinine stable. Clinical history consistent with sFSGS. Dialysis will not be considered part of the care plan based on prior discussions. Medications are acceptable for kidney dysfunction. (3) Pulmonary edema: Plan: Bumex 1 mg daily. Remains in an appropriately negative daily fluid balance. (4) Chronic anemia: Plan: Epogen 54980 units x 1 dose provided 09/24. Venofer 200 mg IV provided yesterday and additional 200 mg IV provided today. Admission and Anticipated Discharge Date Admission Date: September 21, 2021 Subjective No acute events overnight. No complaints this afternoon. Breathing comfortably. Appetite fair. Review of Systems Review of Systems: All systems reviewed & are unremarkable except as noted in HPI & below Physical Exam Constitutional: + cachectic and + frail appearing; no acute distress Eyes: + anicteric sclerae; no corneal abnormality ENMT: Mouth: no oral mucosal abnormality and oral mucous membranes not dry Neck: normal visual inspection and trachea midline Respiratory: normal respiratory effort Auscultation: lungs clear to auscultation bilaterally Cardiovascular: Rate/Rhythm: regular rate Heart Sounds: normal S1 and normal S2 Extremities: no edema Musculoskeletal: Extremities: no cyanosis and no clubbing Skin: + turgor decreased; no lesions Neurologic: Motor/Sensory: no tremor and no asterixis Psychiatric: Orientation: alert and oriented x 3 Results & Data ([facility]) Vital Signs (Past 12 Hours) Vital Signs Temp Pulse Pulse Resp BP Pulse Ox 09/26/21 13:45 76 22 99 09/26/21 10:34 36.6 C 82 19 167/80 H 94 09/26/21 10:32 79 18 95 09/26/21 08:00 87 09/26/21 07:18 36.6 C 92 H 19 181/82 H 92 09/26/21 06:15 75 20 93 09/26/21 03:12 36.7 C 74 16 171/80 H 93 Laboratory Results Laboratory Results - last 24 hr 09/26/21 07:08 Sodium 135 L Potassium 4.8 Chloride 100 Carbon Dioxide 30 Anion Gap 5.0 BUN 67 H Creatinine 2.69 H Est Cr Clr Drug Dosing 21.2 Est GFR ( Amer) 25.0 Est GFR (Non-Af Amer) 21.5 BUN/Creatinine Ratio 24.8 H Glucose 93 Calcium 8.8 Phosphorus 3.3 Albumin 2.4 L PG Care Time/CCT Total # of Minutes Spent Total Time Spent with Patient: Total time spent is greater than 50% in coordination of care (as documented) at patient's floor/unit and/or counseling patient: Coding Level of Care Code 37476 Subseq Hosp Care Lvl 3 Diagnoses Hyperkalemia E87.5 Chronic kidney disease, stage 4 (severe) N18.4 Pulmonary edema J81.0 Chronicity: acute Chronic anemia D64.9 (1) Pulmonary edema Chronicity: acute Qualified Code(s): J81.0 - Acute pulmonary edema
[2021-09-26] MEDS ORDERED: IRON SUCROSE 200 MG in 0.9 % SODIUM CHLORIDE 100 ML IV ONE (15:00)
--- NOTE | 2021-09-26 15:50 | Hospitalist Progress Note ---
Date of Service September 26, 2021 Assessment & Plan (1) Hyperkalemia: Plan: resolved. main culprit - advanced CKD. addition of HCTZ and use of Veltassa BID has normalized his K. is on chronic narcotics - could he have adrenal insufficiency? this could contribute to high K. unfortunately he received a large dose of solumedrol on day of presentation - random cortisol testing will be inaccurate. could consider a formal cosyntropin stim test. BMP am. (2) Acute on chronic respiratory failure with hypoxia: Plan: acute component 2nd to pulmonary edema from CKD. volume status improving. he has lost at least 7kg of weight since admission. (3) Pulmonary edema: Plan: pulm edema/volume overload -- 2nd to advanced CKD improving with addition of HCTZ and increase in bumex to 1mg BID cont bumex BID cont HCTZ bmp in am he has lost 7 kg of weight since admission cont fluid restriction (4) COPD (chronic obstructive pulmonary disease) with emphysema: Plan: with resulting chronic hypoxic resp failure on 6 L NC O2 at baseline (5) Chronic kidney disease, stage 4 (severe): Plan: Cr today again at baseline; actually, slightly better than baseline hyperkalemia finally resolved (6) Hypertension: Plan: labile, likely due to CKD just added HCTZ this weekend monitor and adjust meds again if needed (7) Severe protein-calorie malnutrition: Plan: suspect 2nd to advanced COPD CKD could contribute as well can't rule out other factors (adrenal insufficiency, occult cancer, etc) (8) Opioid dependence: Plan: hydrocodone/acetaminophen prn strongly consider addition of basal opiate consider palliative care consultation (they saw him in early August) - they could assist w/ pain management as well or consider pain management still has considerable pain despite the large amount of hydrocodone (9) GERD (gastroesophageal reflux disease): Plan: PPI (10) CAD (coronary artery disease): Plan: no ischemic sx's cont asa cont metoprolol (11) Macrocytic anemia: Plan: H/H low but at baseline repeat cbc in am for stability (12) DVT prophylaxis: Plan: Heparin 5,000 units SQ Q12h (13) Rapid atrial fibrillation: Plan: resolved converted spontaneously to NSR 09/23/21 change cardizem IR to cardizem CD 120mg daily in addition to his metoprolol stop amlodipine if he pursues hospice would not start anticoagulation (14) Depression: Plan: started on effexor xr in 08/2021 he has ongoing symptoms increase to 75mg tomorrow am Plan: extensive update given to Allison, his daughter, by phone yesterday evening pt's right leg is much larger than left leg - obtain doppler, r/o DVT Admission and Anticipated Discharge Date Admission Date: September 21, 2021 Subjective tele overnight wnl no PAF patient states he feels no different than yesterday dyspnea unchanged despite copious diuresis he admits to feeling depressed for 1-2 years he is despondent about his current state of health, inability to do things, etc. at one point he says "well, how do we fix things?" (ie - renal function, etc) we had a discussion about this we also talked about his chronic back pain and that we may need to ask pain management to see him given his high hydrocodone usage and refractory pain Review of Systems Review of Systems: gen - fatigue; eating decently cv - no chest pain GI - no abd pain pulm - no cough; dyspnea ongoing and unchanged Physical Exam Physical Exam: gen - thin, muscle wasting of facial muscles, NAD neck - mild JVD today - improved mouth - MMM heart - RRR, s1 s2 lungs - bibasilar rales remain, no wheezing, no increased work of breathing abd - soft NT ND BS+ ext - right leg is larger than left leg; <1+ edema b/l; pulses 2+ b/l psych - restricted affect Results & Data Results & Data ([facility]) Vital Signs (Past 12 Hours) Vital Signs Temp Pulse Pulse Resp BP Pulse Ox 09/26/21 13:45 76 22 99 09/26/21 10:34 36.6 C 82 19 167/80 H 94 09/26/21 10:32 79 18 95 09/26/21 08:00 87 09/26/21 07:18 36.6 C 92 H 19 181/82 H 92 09/26/21 06:15 75 20 93 Laboratory Results Laboratory Results - last 24 hr 09/26/21 07:08 Sodium 135 L Potassium 4.8 Chloride 100 Carbon Dioxide 30 Anion Gap 5.0 BUN 67 H Creatinine 2.69 H Est Cr Clr Drug Dosing 21.2 Est GFR ( Amer) 25.0 Est GFR (Non-Af Amer) 21.5 BUN/Creatinine Ratio 24.8 H Glucose 93 Calcium 8.8 Phosphorus 3.3 Albumin 2.4 L PG Care Time/CCT Total # of Minutes Spent Total Time Spent with Patient: Total time spent is greater than 50% in coordination of care (as documented) at patient's floor/unit and/or counseling patient: Coding Level of Care Code 49342 Subseq Hosp Care Lvl 3 Diagnoses Hyperkalemia E87.5 Acute on chronic respiratory failure with hypoxia J96.21 Pulmonary edema J81.0 Chronicity: acute COPD (chronic obstructive pulmonary disease) with emphysema J43.9 Chronic kidney disease, stage 4 (severe) N18.4 Hypertension I10 Severe protein-calorie malnutrition E43 Opioid dependence F11.20 GERD (gastroesophageal reflux disease) K21.9 CAD (coronary artery disease) I25.10 Macrocytic anemia D53.9 DVT prophylaxis Z29.9 Rapid atrial fibrillation I48.91 Depression F32.A (1) Pulmonary edema Chronicity: acute Qualified Code(s): J81.0 - Acute pulmonary edema
--- NOTE | 2021-09-26 16:44 | Ultrasound Report ---
US venous doppler LE RT CLINICAL HISTORY: Swelling/edema with enlarged RLE; eval DVT COMPARISON: None available at the time of this dictation. TECHNIQUE: Right lower extremity real-time compression venous ultrasound with Color Doppler imaging. Utilizing real-time ultrasonic imaging multiple real time high-resolution ultrasonic images with comp ression and noncompression maneuvers of the deep venous system in addition to color doppler imaging w ere performed from the common femoral vein through the proximal calf veins. FINDINGS: Currently there is normal compressibility of the deep venous system from the common femoral vein thro ugh the proximal calf veins. No current evidence of acute thrombosis is identified. Impression: No evidence of deep venous thrombus. ACT 112: Negative or not required by law. Electronically signed by: Geovanni Delacruz M.D. 09/26/2021 4:43 PM
[2021-09-26] MEDS: MIRTAZAPINE TAB 15 MG TAB PO SCH (20:40)
[2021-09-26] MEDS: TAMSULOSIN HCL 0.4 MG CAP PO SCH (20:40)
[2021-09-27] MEDS: LEVALBUTEROL HCL 0.63 MG/3 ML NEB NEB SCH ×4 (00:11→20:08)
[2021-09-27] MEDS: HYDROcodone/ACETAMINOPHEN 10/325 TAB PO PRN ×4 (01:02→19:06)
[2021-09-27] MEDS: LEVALBUTEROL HCL 0.63 MG/3 ML NEB NEB PRN (01:22)
[2021-09-27 05:50] LABS: Hematocrit (blood only) 24.2 % (42-52); Hemoglobin 7.7 g/dL (14.0-18.0); Mean Corpuscular Hemoglobin 32.6 pg (25-34); Mean Corpuscular Hgb Conc 31.8 g/dL (32-36); Mean Corpuscular Volume 102.5 fL (80-100); Mean Platelet Volume 9.5 fL (7.4-10.4); Platelet Count 411 K/uL (130-400); RDW Coefficient of Variation 14.5 % (11.5-14.5); RDW Standard Deviation 53.9 fL (36.4-46.3); Red Blood Count 2.36 M/uL (4.7-6.1); White Blood Count 7.84 K/uL (4.8-10.8)
[2021-09-27 06:15] LABS: BUN Creatinine Ratio 25.6 (10-20); Calcium 8.7 mg/dl (8.5-10.1); Creatinine Clr Calc Pharmacy 21.5 ml/min; Est GFR (African American) 25.9 ml/min; Est GFR (Non-African American) 22.3 ml/min; Potassium 4.4 mmol/L (3.5-5.1)
[2021-09-27] MEDS: PATIROMER CALCIUM SORBITEX 8.4 GM PACK PO SCH ×2 (07:07→13:17)
[2021-09-27] MEDS: LORazepam 0.5 MG TAB PO PRN (07:40)
[2021-09-27] MEDS: BUMETANIDE 1 MG in SYRINGE 0 ML IV SCH ×2 (10:10→15:43)
[2021-09-27] MEDS: FERROUS SULFATE 325 MG TAB PO SCH (10:10)
[2021-09-27] MEDS: METOPROLOL SUCC 50MG EXT REL TAB PO SCH (10:10)
[2021-09-27] MEDS: ASPIRIN 81 MG ECTAB PO SCH (10:11)
[2021-09-27] MEDS: dilTIAZem HCL 120 MG CAPCR PO SCH (10:11)
[2021-09-27] MEDS: HEPARIN SOD 5,000 UNIT/0.5 ML VIAL SQ SCH ×2 (10:11→20:40)
[2021-09-27] MEDS: hydroCHLOROthiazide 25 MG TAB PO SCH (10:11)
[2021-09-27] MEDS: FLUTICASONE FUROATE 200MCG 14 PUFFS/INHALER INH SCH (10:12)
[2021-09-27] MEDS: VENLAFAXINE HCL XR 75 MG CAPXR PO SCH (10:12)
[2021-09-27] MEDS: PANTOprazole 40 MG TAB PO SCH (10:12)
[2021-09-27] MEDS: UMECLIDINIUM/VILANTEROL 62.5/25MCG 7 PUFFS/INHALER INH SCH (10:12)
--- NOTE | 2021-09-27 10:29 | Nephrology Progress Note ---
Date of Service September 27, 2021 Assessment & Plan (1) Hyperkalemia: Plan: Continue Patiromer BID. Remains on HCTZ + Bumex combination. Low potassium diet. Monitor metabolic profile daily while inpatient. (2) Chronic kidney disease, stage 4 (severe): Plan: Remains in a net daily negative fluid balance. Creatinine stable. Clinical history consistent with sFSGS. Dialysis will not be considered part of the care plan based on prior discussions. Medications are acceptable for kidney dysfunction. (3) Pulmonary edema: Plan: Bumex 1 mg daily. Remains in an appropriately negative daily fluid balance. (4) Chronic anemia: Plan: Epogen 99073 units x 1 dose provided 09/24. Venofer 200 mg IV daily x day #3 today. Admission and Anticipated Discharge Date Admission Date: September 21, 2021 Subjective No acute events overnight. Usman was very weak and lethargic this morning. No complaints expressed this AM. Review of Systems Review of Systems: All systems reviewed & are unremarkable except as noted in HPI & below Physical Exam Constitutional: + cachectic and + frail appearing; no acute distress Eyes: + anicteric sclerae; no corneal abnormality ENMT: Mouth: no oral mucosal abnormality and oral mucous membranes not dry Neck: normal visual inspection and trachea midline Respiratory: normal respiratory effort Auscultation: lungs clear to auscultation bilaterally Cardiovascular: Rate/Rhythm: regular rate Heart Sounds: normal S1 and normal S2 Extremities: no edema Musculoskeletal: Extremities: no cyanosis and no clubbing Skin: + turgor decreased; no lesions Neurologic: Motor/Sensory: no tremor and no asterixis Psychiatric: Orientation: alert and oriented x 3 Results & Data ([facility]) Vital Signs (Past 12 Hours) Vital Signs Temp Pulse Pulse Pulse Resp BP Pulse Ox 09/27/21 08:00 80 09/27/21 07:31 36.5 C 94 H 18 171/79 H 91 09/27/21 07:27 16 09/27/21 03:53 36.5 C 97 H 20 164/81 H 93 09/27/21 01:42 106 H 188/90 H 09/27/21 00:39 36.5 C 90 20 190/91 H 99 09/27/21 00:12 90 18 92 Laboratory Results Laboratory Results - last 24 hr 09/27/21 09/27/21 05:20 05:20 WBC 7.84 RBC 2.36 L Hgb 7.7 L Hct 24.2 L MCV 102.5 H MCH 32.6 MCHC 31.8 L RDW Std Deviation 53.9 H RDW Coeff of Lucas 14.5 Plt Count 411 H MPV 9.5 Sodium 134 L Potassium 4.4 Chloride 101 Carbon Dioxide 29 Anion Gap 4.0 BUN 67 H Creatinine 2.61 H Est Cr Clr Drug Dosing 21.5 Est GFR ( Amer) 25.9 Est GFR (Non-Af Amer) 22.3 BUN/Creatinine Ratio 25.6 H Glucose 92 Calcium 8.7 PG Care Time/CCT Total # of Minutes Spent Total Time Spent with Patient: Total time spent is greater than 50% in coordination of care (as documented) at patient's floor/unit and/or counseling patient: Coding Level of Care Code 19099 Subseq Hosp Care Lvl 3 Diagnoses Hyperkalemia E87.5 Chronic kidney disease, stage 4 (severe) N18.4 Pulmonary edema J81.0 Chronicity: acute Chronic anemia D64.9 (1) Pulmonary edema Chronicity: acute Qualified Code(s): J81.0 - Acute pulmonary edema
[2021-09-27] MEDS ORDERED: IRON SUCROSE 200 MG in 0.9 % SODIUM CHLORIDE 100 ML IV ONE (10:45)
--- NOTE | 2021-09-27 16:53 | XRay Report ---
PA CHEST WITH ABDOMINAL SERIES CLINICAL HISTORY: Generalized abdominal pain. Constipation. FINDINGS: A PA chest radiograph is compared to study dated 09/21/2021 and correlated with chest CT dated 2020. The heart is enlarged noting atherosclerotic calcification of the thoracic aorta. Pulmonary vas cular congestion persists. Advanced emphysema and chronic interstitial thickening is similar to previ ous. There are small pleural effusions with bibasilar consolidation. No pneumothorax is seen. The ske letal structures are osteopenic. There are healed right-sided rib fractures. Supine and erect abdominal radiographs are correlated with abdominal CT dated 03/04/2019. There is a no nobstructed abdominal bowel gas pattern. Moderate to severe fecal retention is noted throughout the c olon. No evidence of intraperitoneal free air is seen. There is no radiographic evidence of nephrolit hiasis. There is advanced atherosclerotic calcification of the abdominal aorta and iliac arteries. Th e lumbosacral spine and bony pelvis appear intact. Calcification granuloma is are noted in the left g luteal region. IMPRESSION: 1. Cardiomegaly and advanced emphysema with pulmonary vascular congestion. This has modestly improved as compared to 09/21/2021. 2. Layering pleural effusions with bibasilar consolidation. This is similar to previous. Radiographic follow-up to resolution is recommended. 3. Nonobstructed abdominal bowel gas pattern noting moderate to severe constipation. ACT 112: Negative or not required by law. Electronically signed by: Andrew Watkins M.D. 09/27/2021 4:51 PM
--- NOTE | 2021-09-27 19:24 | Hospitalist Progress Note ---
Date of Service September 27, 2021 Assessment & Plan (1) Pulmonary edema: Plan: pulm edema/volume overload -- 2nd to advanced CKD improving with addition of HCTZ and increase in bumex to 1mg IV BID cont bumex BID cont HCTZ bmp in am he has lost at least 7 kg of weight since admission cont fluid restriction at discharge suspect he will need BID bumex (or increase in AM bumex from 1mg to 2mg) +/- HCTZ (2) Hyperkalemia: Plan: resolved. main culprit - advanced CKD. addition of HCTZ and use of Veltassa BID has normalized his K. K again normal today. is on chronic narcotics - could he have adrenal insufficiency? this could contribute to high K. unfortunately he received a large dose of solumedrol on day of presentation - random cortisol testing will be inaccurate. could consider a formal cosyntropin stim test. BMP am. (3) Acute on chronic respiratory failure with hypoxia: Plan: acute component 2nd to pulmonary edema from CKD. volume status improving. chronic component - COPD. (4) COPD (chronic obstructive pulmonary disease) with emphysema: Plan: with resulting chronic hypoxic resp failure on 6 L NC O2 at baseline (5) Chronic kidney disease, stage 4 (severe): Plan: Cr today actually better than baseline hyperkalemia resolved bmp am (6) Hypertension: Plan: labile, likely due to CKD just added HCTZ this weekend added cardizem CD recently for a.fib rate control which is also providing BP control remains on metoprolol succinate daily flomax provides some BP control as well follow BPs (7) Severe protein-calorie malnutrition: Plan: suspect 2nd to advanced COPD CKD could contribute as well can't rule out other factors (adrenal insufficiency, occult cancer, etc) eating has been a little better over the last few days (8) Opioid dependence: Plan: hydrocodone/acetaminophen -- takes two-10mg norcos essentially QID has been on this regimen for several years office notes from his PCP suggest he had been tried on long-acting pain meds in the past without success he certainly has tolerance given the chronicity of his pain med regimen despite the above he has refractory pain -- he complains of pain every bedside visit strongly consider addition of basal opiate I did speak today with the pain management physician catering administrative assistant we discussed converting him to MS-contin BID or TID with IR morphine prn patient would need to be agreeable to this recommend discussing the above with patient and if agreeable consult pain management (9) GERD (gastroesophageal reflux disease): Plan: PPI (10) CAD (coronary artery disease): Plan: no ischemic sx's cont asa cont metoprolol (11) DVT prophylaxis: Plan: Heparin 5,000 units SQ Q12h (12) Rapid atrial fibrillation: Plan: resolved converted spontaneously to NSR 09/23/21 cont cardizem CD 120mg daily in addition to his metoprolol in the event he goes back into a.fib stopped amlodipine if he pursues hospice would not start anticoagulation if he wants routine care will need to discuss anticoagulation with him (13) Depression: Plan: started on effexor xr in 08/2021 he has ongoing symptoms increased to 75mg daily today (14) Anemia: Plan: Hb at baseline is about 8 to 8.5 s/p venofer this admission per nephro Hb this am 7.7 will repeat the cbc in am and if still low consider transfusion Plan: extensive update given to Allison, his daughter, by phone this evening I expressed my concerns about him living alone he apparently lives alone in an apartment in [place] she is trying to arrange extra services/private care givers for him I also expressed concerns about compliance with meds, etc she has tried to encourage hospice for her father but he hasn't been receptive to such palliative care did see him in early August 2021 during a prior stay - he was not receptive to hospice then either disposition remains uncertain continue to [facility] Admission and Anticipated Discharge Date Admission Date: September 21, 2021 Subjective per staff patient was weak and very tired this am by the time I saw him in the early afternoon he was awake/alert he did not receive any sedatives or sleep aids through the night he complained of "my stomach is upset" despite that complaint he was eating felton crackers during the visit he had a normal, brown stool this am per staff no melena or BRBPR no nausea or emesis again states his breathing is unchanged I did tell him I increased his effexor for him for his depression Review of Systems Review of Systems: gen - weak, fatigue, tired; trying to eat; no fever cv - no chest pain pulm - no cough, no dyspnea at rest - just with exertion GI - see HPI musculo - again complains of his lumbar back pain; states pain meds "last 4 hours" or less Physical Exam Physical Exam: gen - thin, muscle wasting of facial muscles, NAD neck - JVD resolved mouth - MMM heart - RRR, s1 s2 lungs - bibasilar rales improved, no wheezing, no increased work of breathing abd - soft NT ND BS+ ext - right leg is larger than left leg - unchanged; <1+ edema b/l; pulses 2+ b/l psych - restricted affect Results & Data Results & Data ([facility]) Vital Signs (Past 12 Hours) Vital Signs Temp Pulse Pulse Resp BP BP Pulse Ox 09/27/21 19:13 36.5 C 71 16 153/70 H 90 09/27/21 15:33 36.7 C 76 17 150/69 H 97 09/27/21 15:25 80 09/27/21 12:58 87 18 96 09/27/21 11:18 36.6 C 88 18 153/74 H 100 09/27/21 08:00 80 09/27/21 07:31 36.5 C 94 H 18 171/79 H 91 09/27/21 07:27 16 Laboratory Results Laboratory Results - last 24 hr 09/27/21 09/27/21 05:20 05:20 WBC 7.84 RBC 2.36 L Hgb 7.7 L Hct 24.2 L MCV 102.5 H MCH 32.6 MCHC 31.8 L RDW Std Deviation 53.9 H RDW Coeff of Lucas 14.5 Plt Count 411 H MPV 9.5 Sodium 134 L Potassium 4.4 Chloride 101 Carbon Dioxide 29 Anion Gap 4.0 BUN 67 H Creatinine 2.61 H Est Cr Clr Drug Dosing 21.5 Est GFR ( Amer) 25.9 Est GFR (Non-Af Amer) 22.3 BUN/Creatinine Ratio 25.6 H Glucose 92 Calcium 8.7 PG Care Time/CCT Total # of Minutes Spent Total Time Spent with Patient: Total time spent is greater than 50% in coordination of care (as documented) at patient's floor/unit and/or counseling patient: Coding Level of Care Code 90360 Subseq Hosp Care Lvl 3 Diagnoses Hyperkalemia E87.5 Acute on chronic respiratory failure with hypoxia J96.21 Pulmonary edema J81.0 Chronicity: acute COPD (chronic obstructive pulmonary disease) with emphysema J43.9 Chronic kidney disease, stage 4 (severe) N18.4 Hypertension I10 Severe protein-calorie malnutrition E43 Opioid dependence F11.20 GERD (gastroesophageal reflux disease) K21.9 CAD (coronary artery disease) I25.10 DVT prophylaxis Z29.9 Rapid atrial fibrillation I48.91 Depression F32.A Anemia D64.9 (1) Pulmonary edema Chronicity: acute Qualified Code(s): J81.0 - Acute pulmonary edema
[2021-09-27] MEDS: SENNA 8.6 MG TAB PO SCH (20:38)
[2021-09-27] MEDS: TAMSULOSIN HCL 0.4 MG CAP PO SCH (20:41)
[2021-09-27] MEDS: MIRTAZAPINE TAB 15 MG TAB PO SCH (20:42)
[2021-09-27] MEDS: POLYETHYLENE (MIRALAX) 17 GM PACK PO SCH (20:43)
[2021-09-28] MEDS: LEVALBUTEROL HCL 0.63 MG/3 ML NEB NEB SCH ×4 (00:26→19:19)
[2021-09-28] MEDS: HYDROcodone/ACETAMINOPHEN 10/325 TAB PO PRN ×4 (01:01→19:05)
[2021-09-28] MEDS: BUMETANIDE 1 MG in SYRINGE 0 ML IV SCH ×2 (07:24→17:32)
[2021-09-28] MEDS: FLUTICASONE FUROATE 200MCG 14 PUFFS/INHALER INH SCH (07:24)
[2021-09-28] MEDS: UMECLIDINIUM/VILANTEROL 62.5/25MCG 7 PUFFS/INHALER INH SCH (07:25)
[2021-09-28] MEDS: HEPARIN SOD 5,000 UNIT/0.5 ML VIAL SQ SCH ×2 (07:26→20:53)
[2021-09-28] MEDS: VENLAFAXINE HCL XR 75 MG CAPXR PO SCH (07:27)
[2021-09-28] MEDS: SENNA 8.6 MG TAB PO SCH (07:27)
[2021-09-28] MEDS: METOPROLOL SUCC 50MG EXT REL TAB PO SCH (07:28)
[2021-09-28] MEDS: ASPIRIN 81 MG ECTAB PO SCH (07:28)
[2021-09-28] MEDS: FERROUS SULFATE 325 MG TAB PO SCH (07:29)
[2021-09-28] MEDS: dilTIAZem HCL 120 MG CAPCR PO SCH (07:29)
[2021-09-28] MEDS: hydroCHLOROthiazide 25 MG TAB PO SCH (07:30)
[2021-09-28] MEDS: PANTOprazole 40 MG TAB PO SCH (07:30)
[2021-09-28] MEDS: POLYETHYLENE (MIRALAX) 17 GM PACK PO SCH ×2 (07:34→20:52)
[2021-09-28 08:18] LABS: Hematocrit (blood only) 23.2 % (42-52); Hemoglobin 7.2 g/dL (14.0-18.0); Mean Corpuscular Hemoglobin 32.4 pg (25-34); Mean Corpuscular Volume 104.5 fL (80-100); Mean Platelet Volume 9.5 fL (7.4-10.4); Platelet Count 410 K/uL (130-400); RDW Coefficient of Variation 14.9 % (11.5-14.5); RDW Standard Deviation 56.8 fL (36.4-46.3); Red Blood Count 2.22 M/uL (4.7-6.1); White Blood Count 8.26 K/uL (4.8-10.8)
[2021-09-28 08:45] LABS: BUN Creatinine Ratio 26.1 (10-20); Calcium 8.3 mg/dl (8.5-10.1); Creatinine Clr Calc Pharmacy 20.8 ml/min; Est GFR (African American) 25.7 ml/min; Est GFR (Non-African American) 22.1 ml/min; Potassium 4.7 mmol/L (3.5-5.1)
[2021-09-28] MEDS ORDERED: IRON SUCROSE 200 MG in 0.9 % SODIUM CHLORIDE 100 ML IV ONE (09:15)
--- NOTE | 2021-09-28 10:10 | Nephrology Progress Note ---
Date of Service September 28, 2021 Assessment & Plan (1) Hyperkalemia: Plan: Patiromer reduced from BID to once daily today. Remains on HCTZ + Bumex combination. Low potassium diet. Monitor metabolic profile daily while inpatient. (2) Chronic kidney disease, stage 4 (severe): Plan: Remains in a net daily negative fluid balance. Creatinine stable. Clinical history consistent with sFSGS. Dialysis will not be considered part of the care plan based on prior discussions. Medications are acceptable for kidney dysfunction. (3) Pulmonary edema: Plan: Bumex 1 mg BID. Remains in an appropriately negative daily fluid balance. (4) Chronic anemia: Plan: Epogen 59533 units x 1 dose provided 09/24. Venofer 200 mg IV daily x day #4 today. Admission and Anticipated Discharge Date Admission Date: September 21, 2021 Subjective No acute events overnight. More awake this AM. Denies pain. Denies dyspnea. Review of Systems Review of Systems: All systems reviewed & are unremarkable except as noted in HPI & below Physical Exam Constitutional: + cachectic and + frail appearing; no acute distress Eyes: + anicteric sclerae; no corneal abnormality ENMT: Mouth: no oral mucosal abnormality and oral mucous membranes not dry Neck: normal visual inspection and trachea midline Respiratory: normal respiratory effort Auscultation: lungs clear to auscultation bilaterally Cardiovascular: Rate/Rhythm: regular rate Heart Sounds: normal S1 and normal S2 Extremities: no edema Musculoskeletal: Extremities: no cyanosis and no clubbing Skin: + turgor decreased; no lesions Neurologic: Motor/Sensory: no tremor and no asterixis Psychiatric: Orientation: alert and oriented x 3 Results & Data ([facility]) Vital Signs (Past 12 Hours) Vital Signs Temp Pulse Pulse Pulse Resp BP BP 09/28/21 08:00 76 09/28/21 07:05 36.7 C 86 19 153/60 H 09/28/21 05:47 79 20 09/28/21 04:52 36.5 C 76 20 150/74 H 09/28/21 00:26 89 16 09/27/21 23:08 87 09/27/21 22:49 36.7 C 20 160/69 H Pulse Ox 09/28/21 08:00 09/28/21 07:05 96 09/28/21 05:47 94 09/28/21 04:52 94 09/28/21 00:26 95 09/27/21 23:08 09/27/21 22:49 90 Laboratory Results Laboratory Results - last 24 hr 09/28/21 09/28/21 07:42 07:42 WBC 8.26 RBC 2.22 L Hgb 7.2 L Hct 23.2 L MCV 104.5 H MCH 32.4 MCHC 31.0 L RDW Std Deviation 56.8 H RDW Coeff of Lucas 14.9 H Plt Count 410 H MPV 9.5 Sodium 138 Potassium 4.7 Chloride 103 Carbon Dioxide 32 Anion Gap 4.0 BUN 69 H Creatinine 2.63 H Est Cr Clr Drug Dosing 20.8 Est GFR ( Amer) 25.7 Est GFR (Non-Af Amer) 22.1 BUN/Creatinine Ratio 26.1 H Glucose 90 Calcium 8.3 L PG Care Time/CCT Total # of Minutes Spent Total Time Spent with Patient: Total time spent is greater than 50% in coordination of care (as documented) at patient's floor/unit and/or counseling patient: Coding Level of Care Code 11030 Subseq Hosp Care Lvl 3 Diagnoses Hyperkalemia E87.5 Chronic kidney disease, stage 4 (severe) N18.4 Pulmonary edema J81.0 Chronicity: acute Chronic anemia D64.9 (1) Pulmonary edema Chronicity: acute Qualified Code(s): J81.0 - Acute pulmonary edema
[2021-09-28] MEDS: PATIROMER CALCIUM SORBITEX 8.4 GM PACK PO SCH ×2 (10:14→19:07)
[2021-09-28] MEDS: LORazepam 0.5 MG TAB PO PRN (15:21)
--- NOTE | 2021-09-28 17:06 | Hospitalist Progress Note ---
Date of Service September 28, 2021 Assessment & Plan (1) Pulmonary edema: Plan: pulm edema/volume overload -- 2nd to advanced CKD improving with addition of HCTZ and increase in bumex to 1mg IV BID cont bumex BID cont HCTZ bmp in am Now more or less back to baseline oxygen requirements, probably home soon. at discharge suspect he will need BID bumex (or increase in AM bumex from 1mg to 2mg) +/- HCTZ (2) Hyperkalemia: Plan: resolved. main culprit - advanced CKD. addition of HCTZ and use of Veltassa BID has normalized his K. K again normal today. is on chronic narcotics - could he have adrenal insufficiency? this could contribute to high K. unfortunately he received a large dose of solumedrol on day of presentation - random cortisol testing will be inaccurate. could consider a formal cosyntropin stim test. Follow periodically (3) Acute on chronic respiratory failure with hypoxia: Plan: acute component 2nd to pulmonary edema from CKD. volume status improving. chronic component - COPD. (4) COPD (chronic obstructive pulmonary disease) with emphysema: Plan: with resulting chronic hypoxic resp failure on 6 L NC O2 at baseline (5) Chronic kidney disease, stage 4 (severe): Plan: Follow periodic basic metabolic panel with diuresis (6) Hypertension: Plan: Blood pressure is reasonable for the situation follow BPs (7) Severe protein-calorie malnutrition: Plan: suspect 2nd to advanced COPD CKD could contribute as well can't rule out other factors (adrenal insufficiency, occult cancer, etc) Outpatient follow-up (8) Opioid dependence: Plan: hydrocodone/acetaminophen -- takes two-10mg norcos essentially QID has been on this regimen for several years office notes from his PCP suggest he had been tried on long-acting pain meds in the past without success he certainly has tolerance given the chronicity of his pain med regimen Outpatient PCP follow-up/possible pain management follow-up (9) GERD (gastroesophageal reflux disease): Plan: PPI (10) CAD (coronary artery disease): Plan: No symptoms today cont asa cont metoprolol (11) DVT prophylaxis: Plan: Heparin 5,000 units SQ Q12h (12) Rapid atrial fibrillation: Plan: Rate controlled we will need to discuss anticoagulation (13) Depression: Plan: Continue Effexorcurrently at 75 mg (14) Anemia: Plan: Hb at baseline is about 8 to 8.5 s/p venofer this admission per nephro Follow periodic hemoglobin, consider transfusion Plan: updated dtr Admission and Anticipated Discharge Date Admission Date: September 21, 2021 Subjective Generally feeling okay. Is not interested in anything like hospice, does admit that he ends up in and out of the hospital quite a bit. Relates that he takes his medicines. On diet recall, it sounds like there may be some more sodium laden foods than he realizes. Review of Systems Review of Systems: All systems reviewed & are unremarkable except as noted in HPI & below Physical Exam Physical Exam: In general he is awake and alert pleasant no distress. HEENT normocephalic atraumatic mucous membranes moist. Breathing unlabored, lungs somewhat diminished bibasilar no rales rhonchi or wheezes good effort no accessory muscle use, no conversational dyspnea. His nasal cannula is actually on his cheek whenever I enter the room, and he shows no dyspnea even then. Results & Data Results & Data ([facility]) Vital Signs (Past 12 Hours) Vital Signs Temp Pulse Pulse Resp BP Pulse Ox 09/28/21 14:49 97.9 F 72 17 120/64 90 09/28/21 12:12 73 18 93 09/28/21 11:29 97.7 F 81 17 156/75 H 90 09/28/21 08:00 76 09/28/21 07:05 98.1 F 86 19 153/60 H 96 09/28/21 05:47 79 20 94 PG Care Time/CCT Total # of Minutes Spent Total Time Spent with Patient: Total time spent is greater than 50% in coordination of care (as documented) at patient's floor/unit and/or counseling patient: Coding Level of Care Code 17299 Subseq Hosp Care Lvl 3 Diagnoses Pulmonary edema J81.0 Chronicity: acute Hyperkalemia E87.5 Acute on chronic respiratory failure with hypoxia J96.21 COPD (chronic obstructive pulmonary disease) with emphysema J43.9 Chronic kidney disease, stage 4 (severe) N18.4 Hypertension I10 Severe protein-calorie malnutrition E43 Opioid dependence F11.20 GERD (gastroesophageal reflux disease) K21.9 CAD (coronary artery disease) I25.10 DVT prophylaxis Z29.9 Rapid atrial fibrillation I48.91 Depression F32.A Anemia D64.9 (1) Pulmonary edema Chronicity: acute Qualified Code(s): J81.0 - Acute pulmonary edema
[2021-09-28] MEDS: TAMSULOSIN HCL 0.4 MG CAP PO SCH (20:53)
[2021-09-28] MEDS: MIRTAZAPINE TAB 15 MG TAB PO SCH (20:53)
[2021-09-29] MEDS: LEVALBUTEROL HCL 0.63 MG/3 ML NEB NEB SCH ×3 (00:09→12:52)
[2021-09-29] MEDS: HYDROcodone/ACETAMINOPHEN 10/325 TAB PO PRN ×3 (01:01→14:21)
[2021-09-29] MEDS: LORazepam 0.5 MG TAB PO PRN (01:01)
[2021-09-29] MEDS: BUMETANIDE 1 MG in SYRINGE 0 ML IV SCH (08:40)
[2021-09-29] MEDS: VENLAFAXINE HCL XR 75 MG CAPXR PO SCH (08:40)
[2021-09-29] MEDS: PANTOprazole 40 MG TAB PO SCH (08:41)
[2021-09-29] MEDS: SENNA 8.6 MG TAB PO SCH (08:41)
[2021-09-29] MEDS: ASPIRIN 81 MG ECTAB PO SCH (08:41)
[2021-09-29] MEDS: hydroCHLOROthiazide 25 MG TAB PO SCH (08:42)
[2021-09-29] MEDS: dilTIAZem HCL 120 MG CAPCR PO SCH (08:42)
[2021-09-29] MEDS: FERROUS SULFATE 325 MG TAB PO SCH (08:42)
[2021-09-29] MEDS: METOPROLOL SUCC 50MG EXT REL TAB PO SCH (08:42)
[2021-09-29] MEDS: POLYETHYLENE (MIRALAX) 17 GM PACK PO SCH (08:43)
[2021-09-29] MEDS: UMECLIDINIUM/VILANTEROL 62.5/25MCG 7 PUFFS/INHALER INH SCH (08:43)
[2021-09-29] MEDS: FLUTICASONE FUROATE 200MCG 14 PUFFS/INHALER INH SCH (08:43)
[2021-09-29] MEDS: HEPARIN SOD 5,000 UNIT/0.5 ML VIAL SQ SCH (08:44)
[2021-09-29 10:06] LABS: Albumin Level 2.6 gm/dl (3.4-5.0); BUN Creatinine Ratio 23.7 (10-20); Calcium 9.1 mg/dl (8.5-10.1); Creatinine Clr Calc Pharmacy 20.1 ml/min; Est GFR (Non-African American) 20.7 ml/min; Potassium 4.5 mmol/L (3.5-5.1)
[2021-09-29 10:09] LABS: Albumin Globulin Ratio 0.6 (0.9-2); Bilirubin,Total 0.2 mg/dl (0.2-1); Globulin 4.4 gm/dl (2.5-4.0); Phosphorus 3.3 mg/dl (2.5-4.9)
[2021-09-29] MEDS ORDERED: SODIUM CHLORIDE 0.9% 250 ML IV PRN (10:14)
--- NOTE | 2021-09-29 10:40 | Nephrology Progress Note ---
Date of Service September 29, 2021 Assessment & Plan (1) Hyperkalemia: Plan: Patiromer reduced to once daily yesterday. Remains on HCTZ + Bumex combination and tolerating well. Consider transitioning to Bumex alone at discharge. Low potassium diet. Monitor metabolic profile daily while inpatient. (2) Chronic kidney disease, stage 4 (severe): Plan: Remains in a net daily negative fluid balance. Creatinine stable. Clinical history consistent with sFSGS. Dialysis will not be considered part of the care plan based on prior discussions. Due to advanced illness and frailty, unlikely to tolerate Medications are acceptable for kidney dysfunction. (3) Pulmonary edema: Plan: Bumex 1 mg BID. Remains in an appropriately negative daily fluid balance. (4) Chronic anemia: Plan: Epogen 14971 units x 1 dose provided 09/24. Venofer 200 mg IV daily x 4 days completed. Anticipated 1 u PRBC transfusion support today in anticipation of possible discharge. Admission and Anticipated Discharge Date Admission Date: September 21, 2021 Subjective No acute events overnight. I discussed the plan of care with Dr. Valladares this AM. Review of Systems Review of Systems: All systems reviewed & are unremarkable except as noted in HPI & below Physical Exam Constitutional: + cachectic and + frail appearing; no acute distress Eyes: + anicteric sclerae; no corneal abnormality ENMT: Mouth: no oral mucosal abnormality and oral mucous membranes not dry Neck: normal visual inspection and trachea midline Respiratory: normal respiratory effort Auscultation: lungs clear to auscultation bilaterally Cardiovascular: Rate/Rhythm: regular rate Heart Sounds: normal S1 and normal S2 Extremities: no edema Musculoskeletal: Extremities: no cyanosis and no clubbing Skin: + turgor decreased; no lesions Neurologic: Motor/Sensory: no tremor and no asterixis Psychiatric: Orientation: alert and oriented x 3 Results & Data ([facility]) Vital Signs (Past 12 Hours) Vital Signs Temp Pulse Pulse Resp BP Pulse Ox 09/29/21 07:50 36.8 C 83 20 165/76 H 91 09/29/21 07:14 81 20 91 09/29/21 03:40 36.4 C L 64 18 148/70 H 90 09/29/21 00:36 81 09/29/21 00:11 87 16 92 09/28/21 23:26 36.6 C 81 18 156/70 H 91 Laboratory Results Laboratory Results - last 24 hr 09/29/21 09:12 Sodium 134 L Potassium 4.5 Chloride 99 Carbon Dioxide 34 H Anion Gap 1.0 L BUN 66 H Creatinine 2.78 H Est Cr Clr Drug Dosing 20.1 Est GFR ( Amer) 24.0 Est GFR (Non-Af Amer) 20.7 BUN/Creatinine Ratio 23.7 H Glucose 117 H Calcium 9.1 Phosphorus 3.3 Total Bilirubin 0.2 AST 10 L ALT 20 Alkaline Phosphatase 68 Total Protein 7.0 Albumin 2.6 L Globulin 4.4 H Albumin/Globulin Ratio 0.6 L PG Care Time/CCT Total # of Minutes Spent Total Time Spent with Patient: Total time spent is greater than 50% in coordination of care (as documented) at patient's floor/unit and/or counseling patient: Coding Level of Care Code 54079 Subseq Hosp Care Lvl 3 Diagnoses Hyperkalemia E87.5 Chronic kidney disease, stage 4 (severe) N18.4 Pulmonary edema J81.0 Chronicity: acute Chronic anemia D64.9 (1) Pulmonary edema Chronicity: acute Qualified Code(s): J81.0 - Acute pulmonary edema
[2021-09-29] MEDS: PATIROMER CALCIUM SORBITEX 8.4 GM PACK PO SCH (15:21)
--- NOTE | 2021-09-29 16:40 | Discharge Summary ---
Date of Service September 29, 2021 Admission HPI Per Admitting Provider Usman Hilton is a 81 year old male who presents to the ER with sudden onset shortness of breath that started earlier today. He has chronic hypoxic respiratory failure on 6LPM O2 at baseline. Reportedly in the ER his breathing improved after duoenbs given. He denies any fever or chills but has noticed increased non-productive cough. No nasal congestion, loss of taste or smell. He was recently hospitalized on September 15 for hyperkalemia, anemia and HFpEF and left against medical advice the same day with a potassium level of 7.0 on discharge. In the ER his potassium level was elevated at 6.8. This was treated with Veltassa, Insulin/dextrose and albuterol on discussion with nephrology. He was referred to medicine for admission and ongoing management of shortness of breath and hyperkalemia. Principal Diagnosis Hypoxia related to pulmonary edema (stemming from severe CKD) Discharge Data Allergies Allergy/AdvReac Type Severity Reaction Status Date / Time cefuroxime Allergy Intermediate rash Verified 09/21/21 15:57 lisinopril Allergy Mild itching Verified 09/21/21 15:57 Consultations 09/21/21 15:26 ED Decision to Admit Stat 09/21/21 15:40 Consult Nephrology Routine 09/22/21 21:02 Consult Vascular Surgery Routine 09/26/21 19:50 Consult Palliative Care Routine Ordered Studies 09/26/21 15:51 US venous doppler LE RT Routine Hospital Course (1) Pulmonary edema: pulm edema/volume overload -- 2nd to advanced CKD improving with addition of HCTZ and increase in bumex to 1mg IV BID Now more or less back to baseline oxygen requirements, stable for homewill discharge on Bumex twice daily as well as hydrochlorothiazide, close follow-up. Tried outlined multiple times about sodium restriction. High risk for readmission. Discussed with daughtershe agrees that he does not really take care of himself. That said, patient is not interested in hospice at this time either, tried to educate on how to may be better be able to take care of himself particularly with focus on sodium restriction and medication adherence, in the hopes that he may be able to do a little better. Outpatient follow-up, basic metabolic panel later this week (2) Hyperkalemia: resolved. main culprit - advanced CKD. Continue Veltassa for now as an outpatient. Basic metabolic panel later this week (3) Acute on chronic respiratory failure with hypoxia: acute component 2nd to pulmonary edema from CKD. chronic component - COPD. Now back around baseline (4) COPD (chronic obstructive pulmonary disease) with emphysema: with resulting chronic hypoxic resp failure on 6 L NC O2 at baseline (5) Chronic kidney disease, stage 4 (severe): Follow periodic basic metabolic panel as an outpatientnext later this week (6) Hypertension: Blood pressure is reasonable for the situation follow BPs as outpatient (7) Severe protein-calorie malnutrition: suspect 2nd to advanced COPD CKD could contribute as well can't rule out other factors (adrenal insufficiency, occult cancer, etc) Outpatient follow-up (8) Opioid dependence: hydrocodone/acetaminophen -- takes two-10mg norcos essentially QID has been on this regimen for several years office notes from his PCP suggest he had been tried on long-acting pain meds in the past without success he certainly has tolerance given the chronicity of his pain med regimen Outpatient PCP follow-up/possible pain management follow-up (9) GERD (gastroesophageal reflux disease): PPI (10) CAD (coronary artery disease): No symptoms today cont asa cont metoprolol (11) DVT prophylaxis: Heparin 5,000 units SQ Q12h (12) Rapid atrial fibrillation: Rate controlled, to discuss anticoagulation with PCP, held off for now given anemia. (13) Depression: Continue Effexorcurrently at 75 mg (14) Anemia: Hb at baseline is about 8 to 8.5 s/p venofer this admission per nephro Was given 1 unit transfusion prior to dischargeoutpatient CBC. Temporarily holding on anticoagulation as it relates to A. fib, but as long as anemia stays stable, could consider initiation in the near future as an outpatient From home Total Time Total Time Spent Total Time Spent (In Minutes): <30 Discharge Plan Discharge Items Patient Disposition: Home - Self-Care Reason For Visit: SOB Discharge Diagnosis: pulmonary edema Activity: Resume your previous activity Non-emergency contact: Primary Care Provider and Claims Auditor Call non-emergency contact if: you have any medication questions and your symptoms worsen Follow-up/Referrals: Юляи Harvey MD [Primary Care Provider] - 10/08/21 2:00 pm Diet: Low Sodium (2gm) Addtl Attending Provider Instructions: Below are "congestive heart failure" instructions that you may find useful. While your situation is more because of the chronic kidney disease than primarily a problem of your heart, the physiology is basically about the same, and the steps outlined to try to keep yourself out of trouble are basically identical. We have changed a few of your blood pressure medicines (stopped amlodipine, started metoprolol and diltiazem) and increased the intensity of your diuretics (Bumex is now twice a day, hydrochlorothiazide added as well)to try to take strain off of your heart, keep fluid moving, and keep you from flooding. We definitely recommend that you have lab work (basic metabolic panel) checked by no later than Monday to make sure you continue to do well with these medicine changes from a kidney/electrolyte standpoint. Further we have added a medicine called veltassa (patiromer) to help keep potassium from building up -- this will be rechecked with the labwork (BMP) by the end of the week as well. when they check the labwork, we would also ask that they check blood counts (CBC) to make sure your numbers are staying up after the iron/transfusion/etc Congestive Heart Failure essentially means your heart is able to have a "traffic jam" of fluid that backs up into your lungs. Fluid in lungs then blocks up breathing space making you feel short of breath. In the hospital, our job is to get the fluid off so that you are able to breathe better, and then get you back on track with medication and lifestyle adjustments to keep the traffic jam from happening again. Salt (Sodium) The vast majority of people admitted to the hospital with fluid back up into the lungs get there because of too much salt in their diet. The way our kidneys work: when you take a small amount of sodium, your kidneys hold onto a small amount of water. When you take a large amount of sodium, your kidneys hold onto a large amount of water. When this happens, your blood vessels get flooded, your heart gets overfilled, and the fluid backs up into your lungs. Most people know to avoid the salt shaker, but sodium is in almost anything prepackaged/prepared, as a preservative or as a flavoring agent. Most of the people we take care of who are here with congestive heart failure caused by too much sodium do not use a salt shaker at all. Get into the habit of looking at food labels, so you can see how much sodium is in the foods you eat. The most important number to look at is how much sodium is in each serving. But also notice the size of a serving. [employer] will frequently make a serving size so tiny that it does not look like there is much sodium per serving, but a normal person might eat 3 or 4 servings of the food and take in a lot more sodium than they realized. Keep a "budget" of how much sodium you take in in each day. Most people stay out of trouble and stay out of the hospital as long as they stay "under budget". The majority of congestive heart failure patients do well if they take less than 2000 mg of sodium a day. Because our kidneys retain water based on how much sodium they are seeing in any given moment, it is also important to stay at less than about 500 mg in any given meal. This is because even if you stayed at less than 2000 mg of sodium, but ate it all at once, your kidneys would retain fluid at a rate as though you are taking in much more sodium than you actually are. Occasionally your doctor may specifically recommend restricting even further (such as less than 1500mg per day) so if you have been told to be even stricter with sodium, please follow that advice. -Following How You Are Doing (Wet Versus Dry) Because managing congestive heart failure is an ongoing process, it is very important to learn how to follow your signs and symptoms and track how you are doing at home. This will allow you to catch problems before they become a big deal. In general, as your health care team, we look at managing congestive heart failure chronically as a balance of being "wet" (flooded with fluid) versus being "dry" (dehydrated from treatment). Wet - signs of fluid retention that would warrant further evaluation: Check your weight daily. If your weight goes up by more than 2 pounds in 1 day, it is almost certainly fluid related. This should warrant further thought, and/or a call to your doctor Follow your breathingmost of the time, early on when fluid backs up into your lungs, you will first start to notice shortness of breath when walking, or when lying flat. If you notice either of these, this should warrant further thought, and/or a call to your doctor If you notice both an increase in weight and worsening breathing, that definitely warrants getting seen as soon as possible "Dry"while the goal of managing the disease is to keep you from getting "wet, the medications can sometimes cause a degree of dehydration. Most people with congestive heart failure need frequent lab work (basic metabolic panel). Generally when there has been a change in diuretic dosing (a change in the water pill) or any other major changes, lab work should be followed closely and more frequently afterwards. This is because lab work will frequently show early signs of dehydration before you start to feel bad. Frequent symptoms of being dehydrated include: feeling weak and lightheaded, having lower blood pressures, making less urine than usual, or having a very dry mouth. If you notice any of these signs/symptoms, and you are not due for lab work, it would be quite reasonable to call your doctor to see if lab work or a visit could be arranged. Heart Failure Management Checklist: Limit Salt (Sodium) Intake to 2000mg (2g) per day and 500mg (0.5g) per meal Check weight daily (in same clothes, without shoes) every morning Use the provided chart to enter your weight and salt intake for the day Are you too wet? If you gained 2lb or more - make sure to take your water pill If your breathing is not good (you are more short of breath than usual) call your doctor regardless of weight change If you gained 2lb or more and you are short of breath, see your doctor or come to the emergency room Are you too dry? If you feel weak or lightheaded, have lower blood pressures, make less urine than usual, or have a very dry mouth. Call your doctor Pending Studies at Discharge: No Stand-Alone Forms: My [employer], Smoking Cessation Medications and DC Order Prescriptions: New diltiazem HCl 120 mg Capsule,Extended Release 24hr 120 mg PO QAM Qty: 30 RF: 0 metoprolol succinate 50 mg Tablet Extended Release 24 Hr 100 mg PO DAILY Qty: 30 RF: 0 hydrochlorothiazide 25 mg Tablet 25 mg PO QAM Qty: 30 RF: 0 Veltassa 8.4 gram Powder In Packet 8.4 g PO DAILY Qty: 30 RF: 0 Continued hydrocodone-acetaminophen 10-325 mg tablet 2 tab PO Q6H MDD 8 tabs PRN (Reason: pain) Qty: 120 RF: 0 lorazepam 0.5 mg tablet 0.5 mg PO TID PRN (Reason: anxiety) Qty: 90 RF: 0 multivitamin [Daily Multi-Vitamin] Tablet 1 tab PO DAILY RF: 0 albuterol sulfate 90 mcg/actuation HFA aerosol inhaler 2 inh inhalation Q6H PRN (Reason: shortness of breath or wheezing) Qty: 8.5 RF: 5 ferrous sulfate 325 mg (65 mg iron) tablet,delayed release (DR/EC) 325 mg PO DAILY Qty: 30 RF: 5 mirtazapine 30 mg tablet 30 mg PO QPM Qty: 30 RF: 5 nitroglycerin 0.4 mg tablet, sublingual 0.4 mg sublingual DIRECTED PRN (Reason: Chest Pain) Qty: 25 RF: 1 omeprazole 20 mg capsule,delayed release(DR/EC) 20 mg PO DAILY Qty: 30 RF: 5 venlafaxine 37.5 mg capsule,extended release 24hr 37.5 mg PO DAILY 30 Days Qty: 30 RF: 5 Trelegy Ellipta 200-62.5-25 mcg blister with device 1 inh inhalation DAILY Qty: 60 RF: 5 tamsulosin 0.4 mg capsule 0.4 mg PO QPM Qty: 30 RF: 5 aspirin 81 mg tablet,delayed release (DR/EC) 81 mg PO QAM RF: 0 Changed bumetanide 1 mg tablet 1 mg PO BID Qty: 60 RF: 0 Discontinued amlodipine 5 mg tablet 5 mg PO DAILY Qty: 30 RF: 5 Discharge Orders: Discharge Order (Routine); Ordered 09/29/21 Ordered By: Floyd Valladares Admission Data Admit Date/Time: 09/21/21 15:40 Attending Provider: Floyd Valladares Admit Provider: Miko Seth Primary Care Provider: Юлия Harvey Other Providers: Nayana Garcia ; Robert Goodman ; [facility] ; Miko Chowdhury ; Jolynn Heredia Other Interventions: Discharge Summary Assessment (RN) Last Done: 09/29/21 14:09 Coding Level of Care Code D/C DAY MANAGEMENT <30 MINS Diagnoses Pulmonary edema J81.0 Chronicity: acute Hyperkalemia E87.5 Acute on chronic respiratory failure with hypoxia J96.21 COPD (chronic obstructive pulmonary disease) with emphysema J43.9 Chronic kidney disease, stage 4 (severe) N18.4 Hypertension I10 Severe protein-calorie malnutrition E43 Opioid dependence F11.20 GERD (gastroesophageal reflux disease) K21.9 CAD (coronary artery disease) I25.10 DVT prophylaxis Z29.9 Rapid atrial fibrillation I48.91 Depression F32.A Anemia D64.9
== END 2021-09-29 18:39 | disposition home health service (06) | DRG 640 ==
LOC: ED 14:01 → SUATTDRO 15:40 → EDINP 15:40 → 2S 09-22 16:03

== ENCOUNTER 2021-11-27 13:27 | Inpatient (IN) ==
[2021-11-27] MEDS ORDERED: SODIUM CHLORIDE 0.9% 500 ML IV ONE (14:20)
[2021-11-27] MEDS ORDERED: ALBUT/IPRATROP 3MG/0.5MG NEB 3 ML VIAL NEB STA (14:21)
[2021-11-27] MEDS ORDERED: methylPREDNISolone 125 MG/2 ML VIAL IV STA (14:21)
[2021-11-27] MEDS ORDERED: ACETAMINOPHEN 1,000 MG/100 ML VIAL IV STA (14:21)
[2021-11-27 14:37] LABS: Basophils # (auto) 0.02 K/uL (0-0.2); Basophils % (auto) 0.1 %; Eosinophils # (auto) 0.27 K/uL (0-0.5); Eosinophils % (auto) 1.6 %; Hematocrit (blood only) 28.4 % (42-52); Hemoglobin 8.9 g/dL (14.0-18.0); Immature Granulocytes # (auto) 0.06 K/uL (0.00-0.02); Immature Granulocytes % (auto) 0.4 %; Lymphocytes # (auto) 1.06 K/uL (1.2-3.4); Lymphocytes % (auto) 6.2 %; Mean Corpuscular Hemoglobin 31.9 pg (25-34); Mean Corpuscular Hgb Conc 31.3 g/dL (32-36); Mean Corpuscular Volume 101.8 fL (80-100); Mean Platelet Volume 9.9 fL (7.4-10.4); Monocytes # (auto) 0.94 K/uL (0.11-0.59); Monocytes % (auto) 5.5 %; Neutrophils % (auto) 86.2 %; Platelet Count 503 K/uL (130-400); RDW Coefficient of Variation 16.6 % (11.5-14.5); RDW Standard Deviation 61.5 fL (36.4-46.3); Red Blood Count 2.79 M/uL (4.7-6.1); White Blood Count 17.05 K/uL (4.8-10.8)
--- NOTE | 2021-11-27 14:49 | XRay Report ---
XR chest 1V portable CLINICAL HISTORY: SEPSIS COMPARISON STUDY: Chest radiograph November 18, 2021. FINDINGS: There is no pneumothorax. Small right pleural effusion is present. There has been progressi on of right mid and lower lung airspace opacity since chest radiograph of November 18, 2021. Mild car diomegaly is noted. There is no evidence for overt pulmonary edema. IMPRESSION: Progression of right lower lung airspace opacity since prior exam. This favors pneumonia . Radiographic follow-up to ensure resolution is recommended. ACT 112: Negative or not required by law. Electronically signed by: Kyree Harvey M.D. 11/27/2021 2:48 PM
[2021-11-27 14:50] LABS: Partial Thromboplastin Ratio 1.1; Partial Thromboplastin Time 28.9 Seconds (21.0-31.0)
[2021-11-27 15:00] LABS: Troponin I < 0.03 ng/ml (0-0.04)
[2021-11-27] MEDS ORDERED: PIPERACILL/TAZOBAC CONSULT ACTIVE PRN (15:27)
[2021-11-27] MEDS ORDERED: PIPERACILLIN/TAZOBACTAM 4.5 GM/120 ML BAG IV ONE (15:27)
[2021-11-27 15:54] LABS: Alanine Aminotransferase 11 U/L (7-52); Albumin Globulin Ratio 0.9 (0.9-2); Albumin Level 3.2 gm/dl (3.4-5.0); Alkaline Phosphatase 61 U/L (34-104); Anion Gap 12 (3-11); BUN Creatinine Ratio 29.1 (10-20); Bilirubin,Total 0.3 mg/dl (0.2-1.0); Blood Urea Nitrogen 120 mg/dl (6-23); Calcium 8.4 mg/dl (8.5-10.1); Carbon Dioxide 21 mmol/L (21-32); Chloride 102 mmol/L (98-107); Creatine Kinase 27 U/L (30-223); Creatinine Clr Calc Pharmacy 10.5 ml/min; Est GFR (African American) 14.9 ml/min; Est GFR (Non-African American) 12.9 ml/min; Globulin 3.5 gm/dl (2.5-4.0); Glucose 106 mg/dl (70-99(Fasting)); Magnesium 1.4 mg/dl (1.7-2.4); Phosphorus 7.2 mg/dl (2.5-4.9); Sodium 135 mmol/L (136-145); Total Protein 6.7 gm/dl (6.0-8.3)
--- NOTE | 2021-11-27 16:10 | CT Scan Report ---
CT OF THE HEAD WITHOUT CONTRAST CLINICAL HISTORY: Altered mental status. COMPARISON STUDY: Head CT February 25, 2019. CT DOSE: 614.27 mGy.cm TECHNIQUE: Helical axial images of the head were obtained without IV contrast. Automated exposure con trol was utilized for the study. A dose lowering technique was utilized adhering to the principles o f ALARA. FINDINGS: No acute intracranial hemorrhage, midline shift or mass effect is present. White matter hyp odensity suggests small vessel disease. The ventricular system is unremarkable. The basal cisterns ar e patent. No extra-axial collections are present. There are no findings to suggest acute dural sinus thrombosis or acute territorial infarct. No significant calvarial abnormalities are present. Visualiz ed portions of the sinuses and mastoid air cells are clear. IMPRESSION: No acute intracranial findings. ACT 112: Negative or not required by law. Electronically signed by: Kyree Harvey M.D. 11/27/2021 4:09 PM
--- NOTE | 2021-11-27 16:20 | Emergency Department Note ---
Impression & Plan Pneumonia, Acute on chronic renal failure, Hypomagnesemia, Hyperphosphatemia, Hyperkalemia ED Provider Note NAME: MEDARDO AARON AGE: 81 SEX: M ARRIVES VIA: Ambulance INFORMANT: Patient ED PROVIDER(S): Scooter Rincon MD CHIEF COMPLAINT: Weakness, AMS PLAN: Disposition: Admit MEDICAL DECISION MAKING: The patient is a pleasant 81-year-old gentleman of COPD on home oxygen, CKD, HTN, CAD, chronic pain/opioid dependence, anemia, malnutrition, GERD who presents to the emergency department via EMS with caregiver present at the bedside for evaluation of generalized weakness, malaise and decreased responsiveness since this morning in setting of being seen in emergency department a week ago for fatigue, dehydration and diagnosed with pneumonia disc harged on antibiotics. The caregiver reports since being on antibiotics he has had diarrhea has had decreased oral intake. He reports he did see the patient yesterday and he was doing better and was at his baseline. He reports he got a voicemail today but did not hear the phone ring from the patient asking to come over to help calm him down as he has anxiety and felt restless and did not want to come to the hospital. However when additional caseworkers arrived this morning they could not with the patient and so EMS was called. The patient does agree with plan for admission given his ill appearance. The patient's caregiver the bedside further adds that if the patient is willing to be admitted he certainly is not himself. His caregiver describes the patient as normally independent and "sharp". On arrival, the patient is fatigued appearing, cachectic, alert and oriented to loud voice. He is afebrile with stable vital signs. Normal O2 saturation on patient's home oxygen. His diminished breath sounds bilaterally with underlying wheeze. Generalized weakness throughout without focal extremity weakness. EKG without overt acute ischemia. Chest x-ray demonstrates worsening right lower lobe pneumonia. The patient was ordered for empiric Zosyn given worsening symptoms, leukocytosis and change in mental status WBC 17K increased from 12 last week. H/H 8.9/20.4 decreased from last week though proximate to prior range of values. Platelets 500K similar to prior nonspecific. Creatinine is 4 increased from patient's baseline range in the setting of CKD. BUN is also elevated at 120. BUN/creatinine> 20 suggestive of prerenal etiology. Lactic acid within normal limits. Chemistry without metabolic acidosis. Magnesium 1.4 with repletion initiated. Phosphorus 7.2 calcium 8.4. Calcium hemolyzed and repeat collection is pending. LFTs without significant abnormality. Troponin negative/undetectable. Procalcitonin is not significantly elevated. COVID-19 RNA, BELLA test was negative. Recollection of potassium was 5.8. No EKG changes. Will defer management to admitting team. Case was d/w Dr. Seth [facility] hospital[place] who will evaluate the patient for admission. Triage Nursing notes reviewed and agree them. Prior medical records reviewed Vital Signs: reviewed and remarkable for no significant abnormalities Differential diagnosis: Infection, dehydration, metabolic abnormality, hypo/hyperglycemia, electrolyte disturbance, anemia, hypoxia, cardiac sources, intracerebral event, toxicologic, neurologic, as well as other pathologies. ER treatment provided: See below. Diagnostics interpreted by me: ECG: Normal sinus rhythm, 61 bpm, no ectopy, nonspecific ST abnormality, no overt ST elevation or depression, QTC 436, QRS 90. Similar to prior. Cardiac Monitoring: An order for continuous cardiac monitoring was placed and demonstrated sinus rhythm, 61 bpm, no ectopy. Laboratory studies: See below Imaging studies: See below Consultation(s): Case was d/w Dr. Seth [facility] hospitalist who will evaluate the patient for admission. HPI: The patient is a pleasant 81-year-old gentleman of COPD on home oxygen, CKD, HTN, CAD, chronic pain/opioid dependence, anemia, malnutrition, GERD who presents to the emergency department via EMS with caregiver present at the [facility] for evaluation of generalized weakness, malaise and decreased responsiveness since this morning in setting of being seen in emergency department a week ago for fatigue, dehydration and diagnosed with pneumonia discharged on antibiotics. The caregiver reports since being on antibiotics he has had diarrhea has had decreased oral intake. He reports he did see the patient yesterday and he was doing better and was at his baseline. He reports he got a voicemail today but did not hear the phone ring from the patient asking to come over to help calm him down as he has anxiety and felt restless and did not want to come to the hospital. However when additional caseworkers arrived this morning they could not with the patient and so EMS was called. The patient does agree with plan for admission given his ill appearance. The patient's caregiver the bedside further adds that if the patient is willing to be admitted he certainly is not himself. His caregiver describes the patient as normally independent and "sharp". ROS: See above HPI for pertinent positives & negatives. A total of 10 systems reviewed and were otherwise negative. PAST MEDICAL HISTORY:See Below PAST SURGICAL HISTORY:See Below FAMILY HISTORY:See Below SOCIAL HISTORY:See Below HOME MEDICATIONS:See Below ALLERGIES:See Below VITALS:See Below PHYSICAL EXAMINATION: GENERAL: Somnolent but alert to loud voice, ill/cachectic-appearing, in no distress HENT: Normocephalic, atraumatic. Oropharynx with dry mucous membranes and otherwise unremarkable. EYES: Normal conjunctiva. Sclera non-icteric. NECK: Supple. No nuchal rigidity. FROM. No JVD. RESPIRATORY: Diminished breath sounds bilaterally with underlying wheeze. CARDIAC: Regular rate, normal rhythm. Extremities warm and well perfused. Pulses equal. ABDOMEN: Soft, non-distended. No tenderness to palpation. No rebound or gu arding. No masses. RECTAL: Deferred. MUSCULOSKELETAL: Chest examination reveals no tenderness. The back is symmetrical on inspection without obvious abnormality. There is no CVA tenderness to palpation. No joint edema. LOWER EXTREMITIES: Calves are equal size bilaterally and non-tender. No edema. No discoloration. NEURO: Somnolent but alert to loud voice. Oriented to self/place, situation. No focal sensory or motor deficits noted. Generalized weakness throughout. SKIN: No rash or jaundice noted. ED COURSE: Critical Care: I have personally spent greater than 35 minutes of critical care time in the direct management of this patient. This includes bedside care, interpretation of diagnostic studies, and testing, discussion with consultants, patient, and family members, and other required patient management activities. This 35 minutes is in excess of all separately billable procedures. Scooter Rincon MD Past Med/Surg History Medical History AAA (abdominal aortic aneurysm) Acute hypoxemic respiratory failure Anemia of chronic disease Anxiety Bilateral pleural effusion CAD (coronary artery disease) PTCA with stent of RCA 1994 Chronic kidney disease, stage 4 (severe) Chronic pain Chronic renal insufficiency 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 exacerbation Essential tremor GERD (gastroesophageal reflux disease) Hyperlipidemia LDL goal <70 Hypertension Lower urinary tract symptoms (LUTS) Multiple rib fractures Opioid dependence treated with opiates for chronic low back pain for 10+ years Septal myocardial infarction SOB (shortness of breath) Tobacco abuse counseling Vitamin B12 deficiency Surgical History H/O heart artery stent (~1994) Family History Denies family history of Ovarian cancer Prostate cancer Myocardial infarction Breast cancer Colorectal cancer Social History Smoking Status: Unknown if ever smoked Tobacco Type: Cigarettes Cigarettes Per Day: 10; Smoking End Date: unknown; Second Hand Exposure: No; Do You Dip or Chew Tobacco: No; Tobacco Cessation Education Requested by Patient: No Hx Alcohol Use: No Hx Substance Use: No Preferred Language: [place] Communication Ability: Effective Visual Impairment: No Limitations Hearing Ability: Normal Dbas Required: No Beliefs That Will Affect Care: None marital status: Current Living Situation: Alone Current Living Situation Comment: Alone at home in apartment after of in March current occupational status: 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 many Children do You have: 1 Other Information That Helps Us Care for You: No Feels Safe at Home: Yes Safety Concerns: Feels Safe At This Time Childhood Exposure to Second-Hand Smoke: Yes Dental Care, Regularly: No Physical Activity Frequency: Does not Exercise Seatbelt Use: always Sunscreen Use: No (doesn't really go outside ) Assistive Devices: Oxygen - Continuous Allergies Allergies Allergy/AdvReac Type Severity Reaction Status Date / Time cefuroxime Allergy Intermediate rash Verified 11/27/21 16:43 lisinopril Allergy Mild itching Verified 11/27/21 16:43 Home Meds Home Medications Medication Instructions Recorded Confirmed aspirin 81 mg tablet,delayed 81 mg PO QAM 05/06/19 11/27/21 release multivitamin (Daily Multi-Vitamin) 1 tab PO DAILY 05/28/21 11/27/21 amlodipine 5 mg tablet 5 mg PO DAILY 11/18/21 11/27/21 atorvastatin 40 mg tablet 40 mg PO DAILY 11/18/21 11/27/21 primidone 50 mg tablet 50 mg PO BID 11/18/21 11/27/21 Veltassa 8.4 g PO DAILY 11/27/21 11/27/21 Previous Rx's Medication Instructions Recorded albuterol sulfate 90 mcg/actuation 2 inh INHALATION Q6H PRN #8.5 g 09/17/21 aerosol inhaler ferrous sulfate 325 mg (65 mg 325 mg PO DAILY #30 tab 09/17/21 iron) tablet,delayed release fluticasone fur. 200 mcg-umeclid 1 inh INHALATION DAILY #60 ea 09/17/21 62.5 mcg-vilant 25 mcg inhalat.powder (Trelegy Ellipta) mirtazapine 30 mg tablet 30 mg PO QPM #30 tab 09/17/21 nitroglycerin 0.4 mg sublingual 0.4 mg SUBLINGUAL DIRECTED PRN 09/17/21 tablet #25 tab omeprazole 20 mg capsule,delayed 20 mg PO DAILY #30 cap 09/17/21 release tamsulosin 0.4 mg capsule 0.4 mg PO QPM #30 cap 09/17/21 venlafaxine 37.5 mg 37.5 mg PO DAILY 30 Days #30 cap 09/17/21 capsule,extended release 24 hr bumetanide 1 mg tablet 1 mg PO BID #60 tab 09/29/21 diltiazem HCl 120 mg 120 mg PO DAILY #90 cap 10/26/21 capsule,extended release 24 hr hydrochlorothiazide 25 mg tablet 25 mg PO DAILY #90 tab 10/26/21 ondansetron HCl 4 mg tablet 4 mg PO Q6H PRN #30 tab 11/12/21 doxycycline hyclate 100 mg capsule 100 mg PO BID 10 Days #20 cap 11/18/21 hydrocodone 10 mg-acetaminophen 2 tab PO Q6H PRN #240 tab MDD 8 11/20/21 325 mg tablet tabs lorazepam 0.5 mg tablet 0.5 mg PO TID PRN #90 tab 11/20/21 Results & Data (ED) Vital Signs Vital Signs - 24 hr 11/27/21 13:26 11/27/21 14:48 11/27/21 15:30 Temperature 36.3 C L 36.1 C L Temperature Source Oral Rectal Pulse Rate 64 Pulse Rate [Finger] 61 Pulse Rhythm [Finger] Regular Pulse Strength [Finger] Normal Respiratory Rate 18 18 Respiratory Effort / Characteristics Non-Labored Spontaneous Respiratory Depth Normal Normal Respiratory Pattern Regular Blood Pressure 123/51 L Blood Pressure [Left Arm] 111/47 L Blood Pressure Mean 75 Blood Pressure Mean [Left Arm] 68 Blood Pressure Position [Left Arm] Lying Pulse Oximetry 100 100 Oxygen Delivery Method Nasal Cannula Nasal Cannula Oxygen Flow Rate 4 6 Sepsis Recent Fever Within 48 Hours No Sepsis New/Unexplained Change in Mental Status N/A Sepsis Action Taken by Nursing No Action Required 11/27/21 16:33 11/27/21 16:36 Temperature Temperature Source Pulse Rate Pulse Rate [Finger] 61 Pulse Rhythm [Finger] Pulse Strength [Finger] Respiratory Rate 10 L Respiratory Effort / Characteristics Gasping/Agonal Respiratory Depth Normal Respiratory Pattern Regular Blood Pressure Blood Pressure [Left Arm] 118/46 L Blood Pressure Mean Blood Pressure Mean [Left Arm] 70 Blood Pressure Position [Left Arm] Lying Pulse Oximetry 100 Oxygen Delivery Method Nasal Cannula Nasal Cannula Oxygen Flow Rate 6 6 Sepsis Recent Fever Within 48 Hours Sepsis New/Unexplained Change in Mental Status Sepsis Action Taken by Nursing Laboratory Data Attestation: I reviewed the patient's lab results. Result diagrams: 11/27/21 13:43 11/27/21 16:21 Lab Results 11/27/21 11/27/21 11/27/21 Range/Units 13:43 13:43 13:43 WBC 17.05 H (4.8-10.8) K/uL RBC 2.79 L (4.7-6.1) M/uL Hgb 8.9 L (14.0-18.0) g/dL Hct 28.4 L (42-52) % MCV 101.8 H (80-100) fL MCH 31.9 (25-34) pg MCHC 31.3 L (32-36) g/dL RDW Std Deviation 61.5 H (36.4-46.3) fL RDW Coeff of Lucas 16.6 H (11.5-14.5) % Plt Count 503 H (130-400) K/uL MPV 9.9 (7.4-10.4) fL Immature Gran % (Auto) 0.4 % Neut % (Auto) 86.2 % Lymph % (Auto) 6.2 % Alfalfa % (Auto) 5.5 % Eos % (Auto) 1.6 % Baso % (Auto) 0.1 % Neut # (Auto) 14.70 H (1.4-6.5) K/uL Lymph # (Auto) 1.06 L (1.2-3.4) K/uL Alfalfa # (Auto) 0.94 H (0.11-0.59) K/uL Eos # (Auto) 0.27 (0-0.5) K/uL Baso # (Auto) 0.02 (0-0.2) K/uL Immature Gran # (Auto) 0.06 H (0.00-0.02) K/uL PT 10.0 (9.0-12.0) Seconds INR 1.0 (0.9-1.1) APTT 28.9 (21.0-31.0) Seconds PTT Ratio 1.1 Sodium 135 L (136-145) mmol/L Potassium TNP Chloride 102 (98-107) mmol/L Carbon Dioxide 21 (21-32) mmol/L Anion Gap 12 H (3-11) BUN 120 H (6-23) mg/dl Creatinine 4.12 H (0.6-1.4) mg/dl Est Cr Clr Drug Dosing 10.5 ml/min Est GFR ( Amer) 14.9 ml/min Est GFR (Non-Af Amer) 12.9 ml/min BUN/Creatinine Ratio 29.1 H (10-20) Glucose 106 H (70-99(Fasting)) mg/dl Lactate (0.4-2.0) mmol/L Calcium 8.4 L (8.5-10.1) mg/dl Phosphorus 7.2 H (2.5-4.9) mg/dl Magnesium 1.4 L (1.7-2.4) mg/dl Total Bilirubin 0.3 (0.2-1.0) mg/dl AST TNP ALT 11 (7-52) U/L Alkaline Phosphatase 61 (34-104) U/L Total Creatine Kinase 27 L (30-223) U/L Troponin I < 0.03 (0-0.04) ng/ml Total Protein 6.7 (6.0-8.3) gm/dl Albumin 3.2 L (3.4-5.0) gm/dl Globulin 3.5 (2.5-4.0) gm/dl Albumin/Globulin Ratio 0.9 (0.9-2) Procalcitonin (0-0.5) ng/ml SARS-CoV-2, RNA, NAAT (NEGATIVE) 11/27/21 11/27/21 11/27/21 Range/Units 13:43 14:53 15:00 WBC (4.8-10.8) K/uL RBC (4.7-6.1) M/uL Hgb (14.0-18.0) g/dL Hct (42-52) % MCV (80-100) fL MCH (25-34) pg MCHC (32-36) g/dL RDW Std Deviation (36.4-46.3) fL RDW Coeff of Lucas (11.5-14.5) % Plt Count (130-400) K/uL MPV (7.4-10.4) fL Immature Gran % (Auto) % Neut % (Auto) % Lymph % (Auto) % Alfalfa % (Auto) % Eos % (Auto) % Baso % (Auto) % Neut # (Auto) (1.4-6.5) K/uL Lymph # (Auto) (1.2-3.4) K/uL Alfalfa # (Auto) (0.11-0.59) K/uL Eos # (Auto) (0-0.5) K/uL Baso # (Auto) (0-0.2) K/uL Immature Gran # (Auto) (0.00-0.02) K/uL PT (9.0-12.0) Seconds INR (0.9-1.1) APTT (21.0-31.0) Seconds PTT Ratio Sodium (136-145) mmol/L Potassium Chloride (98-107) mmol/L Carbon Dioxide (21-32) mmol/L Anion Gap (3-11) BUN (6-23) mg/dl Creatinine (0.6-1.4) mg/dl Est Cr Clr Drug Dosing ml/min Est GFR ( Amer) ml/min Est GFR (Non-Af Amer) ml/min BUN/Creatinine Ratio (10-20) Glucose (70-99(Fasting)) mg/dl Lactate 0.2 L (0.4-2.0) mmol/L Calcium (8.5-10.1) mg/dl Phosphorus (2.5-4.9) mg/dl Magnesium (1.7-2.4) mg/dl Total Bilirubin (0.2-1.0) mg/dl AST ALT (7-52) U/L Alkaline Phosphatase (34-104) U/L Total Creatine Kinase (30-223) U/L Troponin I (0-0.04) ng/ml Total Protein (6.0-8.3) gm/dl Albumin (3.4-5.0) gm/dl Globulin (2.5-4.0) gm/dl Albumin/Globulin Ratio (0.9-2) Procalcitonin 0.44 (0-0.5) ng/ml SARS-CoV-2, RNA, NAAT NEGATIVE (NEGATIVE) 11/27/21 Range/Units 16:21 WBC (4.8-10.8) K/uL RBC (4.7-6.1) M/uL Hgb (14.0-18.0) g/dL Hct (42-52) % MCV (80-100) fL MCH (25-34) pg MCHC (32-36) g/dL RDW Std Deviation (36.4-46.3) fL RDW Coeff of Lucas (11.5-14.5) % Plt Count (130-400) K/uL MPV (7.4-10.4) fL Immature Gran % (Auto) % Neut % (Auto) % Lymph % (Auto) % Alfalfa % (Auto) % Eos % (Auto) % Baso % (Auto) % Neut # (Auto) (1.4-6.5) K/uL Lymph # (Auto) (1.2-3.4) K/uL Alfalfa # (Auto) (0.11-0.59) K/uL Eos # (Auto) (0-0.5) K/uL Baso # (Auto) (0-0.2) K/uL Immature Gran # (Auto) (0.00-0.02) K/uL PT (9.0-12.0) Seconds INR (0.9-1.1) APTT (21.0-31.0) Seconds PTT Ratio Sodium (136-145) mmol/L Potassium 5.8 H Chloride (98-107) mmol/L Carbon Dioxide (21-32) mmol/L Anion Gap (3-11) BUN (6-23) mg/dl Creatinine (0.6-1.4) mg/dl Est Cr Clr Drug Dosing ml/min Est GFR ( Amer) ml/min Est GFR (Non-Af Amer) ml/min BUN/Creatinine Ratio (10-20) Glucose (70-99(Fasting)) mg/dl Lactate (0.4-2.0) mmol/L Calcium (8.5-10.1) mg/dl Phosphorus (2.5-4.9) mg/dl Magnesium (1.7-2.4) mg/dl Total Bilirubin (0.2-1.0) mg/dl AST 8 L ALT (7-52) U/L Alkaline Phosphatase (34-104) U/L Total Creatine Kinase (30-223) U/L Troponin I (0-0.04) ng/ml Total Protein (6.0-8.3) gm/dl Albumin (3.4-5.0) gm/dl Globulin (2.5-4.0) gm/dl Albumin/Globulin Ratio (0.9-2) Procalcitonin (0-0.5) ng/ml SARS-CoV-2, RNA, NAAT (NEGATIVE) Administered Medications Heparin Sodium (Porcine) (Heparin Sod 5,000 Unit/0.5 Ml Vial) 5,000 units SQ BID [facility] Stop: 12/27/21 22:29 Last Admin: 11/28/21 00:09 Dose: 5,000 units Documented by: [id number] Lactated Ringer's (Lr) 1,000 mls @ 100 mls/hr IV .Q10H [facility] Stop: 11/28/21 22:14 Last Admin: 11/27/21 19:25 Dose: 125 mls/hr Documented by: [id number] Infusion: 11/27/21 19:25 Dose: 125 mls/hr Documented by: [id number] Admin: 11/27/21 16:31 Dose: 125 mls/hr Documented by: [id number] Piperacillin Sod/Tazobactam (Sod 3.375 gm/ Dextrose) 115 mls @ 28.75 mls/hr IV Q12H [facility]; Protocol Stop: 11/30/21 00:00 Last Admin: 11/28/21 00:12 Dose: 28.8 mls/hr Documented by: [id number] Azithromycin 500 mg/ Dextrose 255 mls @ 127.5 mls/hr IV Q24H [facility] Stop: 03/01/22 21:59 Last Infusion: 11/28/21 02:08 Dose: 0 mls/hr Documented by: [id number] Admin: 11/28/21 00:08 Dose: 127.5 mls/hr Documented by: [id number] Metronidazole (Flagyl) 500 mg in 100 mls @ 100 mls/hr IV Q8H [facility] Stop: 12/07/21 21:59 Last Infusion: 11/27/21 23:22 Dose: 0 mls/hr Documented by: [id number] Admin: 11/27/21 22:22 Dose: 100 mls/hr Documented by: [id number] Lorazepam (Lorazepam 2 Mg/1 Ml Vial) 0.25 mg IV Q8H PRN PRN Reason: Agitation Stop: 12/27/21 21:46 Last Admin: 11/28/21 01:23 Dose: 0.25 mg Documented by: [id number] Miscellaneous Information (Piperacill/Tazobac Consult Active) 1 ea N/A UD PRN PRN Reason: Consult Stop: 12/27/21 15:26 Last Admin: 11/27/21 16:32 Dose: 1 ea Documented by: [id number] Raspberry (Raspberry Syrup 5 Ml Udp) 5 ml PO Q6 [facility] Stop: 12/08/21 00:00 Last Admin: 11/28/21 00:09 Dose: 5 ml Documented by: [id number] Vancomycin HCl (Vancomycin Hcl 500 Mg/10 Ml Soln) 500 mg PO Q6 [facility] Stop: 12/08/21 00:00 Last Admin: 11/28/21 00:09 Dose: 500 mg Documented by: [id number] Discontinued Medications Albuterol (Albut/Ipratrop 3mg/0.5mg Neb 3 Ml Vial) 3 ml NEB NOW STA; Protocol Stop: 11/27/21 14:22 Last Admin: 11/27/21 14:54 Dose: 3 ml Documented by: [id number] Sodium Chloride (Nss) 500 mls @ 999 mls/hr IV .Q31M ONE Stop: 11/27/21 14:50 Last Infusion: 11/27/21 16:11 Dose: 0 mls/hr Documented by: [id number] Admin: 11/27/21 14:48 Dose: 999 mls/hr Documented by: [id number] Acetaminophen (Ofirmev) 1,000 mg in 100 mls @ 400 mls/hr IV NOW STA Stop: 11/27/21 14:35 Last Infusion: 11/27/21 16:11 Dose: 0 mls/hr Documented by: [id number] Admin: 11/27/21 14:48 Dose: 400 mls/hr Documented by: [id number] Piperacillin Sod/Tazobactam Sod (Zosyn) 4.5 gm in 120 mls @ 240 mls/hr IV NOW ONE Stop: 11/27/21 15:56 Last Infusion: 11/27/21 17:09 Dose: 0 mls/hr Documented by: [id number] Admin: 11/27/21 16:22 Dose: 240 mls/hr Documented by: [id number] Magnesium Sulfate/Dextrose (Magnesium Sulfate / D5w) 1 gm in 100 mls @ 100 mls/hr IV Q1H [facility] Stop: 11/27/21 18:05 Last Infusion: 11/27/21 19:48 Dose: 0 mls/hr Documented by: [id number] Admin: 11/27/21 16:26 Dose: 100 mls/hr Documented by: [id number] Infusion: 11/27/21 16:26 Dose: 100 mls/hr Documented by: [id number] Admin: 11/27/21 16:23 Dose: 100 mls/hr Documented by: [id number] Lorazepam (Lorazepam 2 Mg/1 Ml Vial) 0.25 mg IV NOW STA Stop: 11/27/21 17:08 Last Admin: 11/27/21 19:47 Dose: Not Given Documented by: [id number] Lorazepam (Lorazepam 2 Mg/1 Ml Vial) Confirm Administered Dose 2 mg .ROUTE .STK- MED ONE Stop: 11/27/21 17:11 Last Admin: 11/27/21 17:16 Dose: 0.25 mg Documented by: [id number] Methylprednisolone (Methylprednisolone 125 Mg/2 Ml Vial) 125 mg IV NOW STA Stop: 11/27/21 14:22 Last Admin: 11/27/21 14:54 Dose: 125 mg Documented by: [id number] Mirtazapine (Mirtazapine Tab 15 Mg Tab) 30 mg PO QPM [facility] Stop: 12/27/21 20:59 Last Admin: 11/28/21 02:10 Dose: Not Given Documented by: [id number] Naloxone HCl (Naloxone Hcl 0.4 Mg/1 Ml Vial/Carp) 0.4 mg IV NOW STA Stop: 11/27/21 16:46 Last Admin: 11/27/21 16:53 Dose: 0.4 mg Documented by: [id number] Primidone (Primidone 50 Mg Tab) 50 mg PO BID [facility] Stop: 12/27/21 20:59 Last Admin: 11/28/21 02:10 Dose: Not Given Documented by: [id number] Tamsulosin HCl (Tamsulosin Hcl 0.4 Mg Cap) 0.4 mg PO QPM [facility] Stop: 12/27/21 20:59 Last Admin: 11/28/21 02:10 Dose: Not Given Documented by: [id number] Imaging Data Radiologist's Impression: Chest X-Ray 11/27/21 14:20 XR chest 1V portable CLINICAL HISTORY: SEPSIS COMPARISON STUDY: Chest radiograph November 18, 2021. FINDINGS: There is no pneumothorax. Small right pleural effusion is present. Th ere has been progression of right mid and lower lung airspace opacity since chest radiograph of November 18, 2021. Mild cardiomegaly is noted. There is no evidence for overt pulmonary edema. IMPRESSION: Progression of right lower lung airspace opacity since prior exam. This favors pneumonia. Radiographic follow-up to ensure resolution is recommended. ACT 112: Negative or not required by law. Electronically signed by: Kyree Harvey M.D. 11/27/2021 2:[address] 11/27/21 14:20 CT OF THE HEAD WITHOUT CONTRAST CLINICAL HISTORY: Altered mental status. COMPARISON STUDY: Head CT February 25, 2019. CT DOSE: 614.27 mGy.cm TECHNIQUE: Helical axial images of the head were obtained without IV contrast. Automated exposure control was utilized for the study. A dose lowering technique was utilized adhering to the principles of ALARA. FINDINGS: No acute intracranial hemorrhage, midline shift or mass effect is present. White matter hypodensity suggests small vessel disease. The ventricular system is unremarkable. The basal cisterns are patent. No extra-axial collecti ons are present. There are no findings to suggest acute dural sinus thrombosis or acute territorial infarct. No significant calvarial abnormalities are present. Visualized portions of the sinuses and mastoid air cells are clear. IMPRESSION: No acute intracranial findings. ACT 112: Negative or not required by law. Electronically signed by: Kyree Harvey M.D. 11/27/2021 4:09 PM Abdomen/Pelvis CT 11/27/21 16:[address] WITHOUT CONTRAST CT DOSE: 406.25 mGy.cm HISTORY: Altered mental status. Acute on chronic renal failure. TECHNIQUE: Multiaxial CT images of the abdomen and pelvis were performed without contrast. A dose lowering technique was utilized adhering to the principles of ALARA. COMPARISON STUDY: Abdomen and pelvis CT 03/04/2019. FINDINGS: There is a small right and trace left pleural effusion. The heart is enlarged. Patchy airspace opacities within the right lower lobe favor a pneumonia could be due to aspiration. Mild interlobular septal thickening at the lung bases likely representing mild congestive change. There are small densities within the left lung base suggesting subsegmental atelectasis. No pneumoperitoneum. No pneumatosis. No suspicious lytic or blastic osseous lesions. A Hdz catheter is in good position within the decompressed bladder. Gas within the bladder lumen likely due to the catheterization. The unenhanced liver, spleen, adrenal glands, and pancreas unremarkable. Renal vascular calcifications are noted. No definite renal or ureteral calculi. No hydronephrosis. There is bilateral perinephric edema. There is mild diffuse mesenteric edema. No retroperitoneal lymphadenopathy. There is pericholecystic fluid. Aneurysmal dilatation of the abdominal aorta and common iliac arteries are again noted. The abdominal aorta measures up to 4.9 cm in diameter which has slightly progressed compared to the prior study when it measured 4.4 cm.. 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 Mild gallbladder distention, unchanged. No change in the perianeurysmal retroperitoneal fibrosis. There is thickening within the ascending colon which is new from the prior study. This is consistent with a nonspecific colitis but favors an inflammatory or infectious process. No evidence for bowel obstruction. Normal appendix. Overall, suboptimal evaluation for bowel pathology due to the lack of intravenous and oral contrast as well as the possibility of intra-abdominal fat. Moderate well-formed stool seen within the colon. IMPRESSION: 1. Thickening of the ascending colon consistent with a colitis. This favors an infectious or inflammatory process. 2. Small amount of fluid adjacent to the gallbladder. However, there is no gallbladder wall thickening. Therefore, this is likely reactive to the adjacent colitis. 3. Small right pleural effusion and right basilar airspace opacities. This likely represents a pneumonia and could be due to aspiration. 4. Slight increase in size within the infrarenal abdominal aortic aneurysm which currently measures 4.9 cm, previously measuring 4.4 cm. Bilateral common iliac artery aneurysms are also noted as described above.. ACT 112: Negative or not required by law. Electronically signed by: Han Bryan M.D. 11/27/2021 6:16 PM Discharge Plan Visit Data Chief Complaint: Weakness ED Provider: Scooter Rincon Discharge Problem: Pneumonia, Acute on chronic renal failure, Hypomagnesemia, Hyperphosphatemia, Hyperkalemia Patient Disposition: Admitted As Inpatient Discharge Instructions Interventions: ED Discharge Assessment Last Done: 11/27/21 17:36 Discharge Problem: Pneumonia Qualifiers: Pneumonia type: due to unspecified organism Laterality: right Lung location: lower lobe of lung Qualified Code(s): J18.9 - Pneumonia, unspecified organism Acute on chronic renal failure Qualifiers: Acute renal failure type: unspecified Chronic kidney disease stage: unspecified stage Qualified Code(s): N17.9 - Acute kidney failure, unspecified
[2021-11-27] MEDS: MAGNESIUM SULFATE / D5W 1 GM/100 ML BAG IV SCH ×2 (16:23→16:26)
[2021-11-27] MEDS: LACTATED RINGER'S 1,000 ML IV SCH ×2 (16:31→19:25)
--- NOTE | 2021-11-27 16:34 | History & Physical Report ---
Date of Service November 27, 2021 Assessment & Plan (1) Sepsis: Plan: Suspected source pneumonia vs. colitis Continue IV Zosyn + azithromycin 500mg IV for PNA MRSA nasal swab - if positive will have to consider linezolid instead of vancomycin given renal dysfunction Vancomycin 500mg Q6H PO + metronidazole 500mg Q8H for possible c. diff until PCR back Lactate 0.2 - no need for aggressive fluid resuscitation since he is hemodynamically stable and high risk of fluid overload Continue LR @ 100 ml/hr - discontinue if worsening respiratory status (2) Right lower lobe pneumonia: Plan: Progression of pneumonia on CXR while on doxycycline ?aspiration given location - SLT assessment Zosyn + azithromycin as above (3) Colitis: Plan: Noted on CT - unable to perform accurate abdominal exam on admission C. diff PCR pending Vancomycin + metronidazole above (4) Acute on chronic renal failure: Plan: Appears dry on exam in setting of current infection and diuretic use. High probability of getting pulmonary edema if left on IV fluids - currently will start on LR @ 100ml/hr Monitor for worsening respiratory status with fluid overload Repeat BMP in AM - if worsening renal function consider nephrology consult (5) Bradypnea: Plan: Occasional agonal breathing in the ER. Naloxone 0.4mg IV given to good effect however caused patient excessive pain Will hold off drip at the current time due to pain. (6) Chronic pain: Plan: Holding opiates in setting of suspected overdose in setting of renal failure (7) Hypomagnesemia: Plan: Mg level 1.4 - doubtful contributory towards current mental state Mg sulphate (8) Chronic respiratory failure with hypoxia: Plan: Baseline 4LPM O2 - actually maintaining O2 sats with less O2 currently Wean O2 to aim O2 sats > 90% (9) GERD (gastroesophageal reflux disease): Plan: Switch omeprazole to pantoprazole per hospital formulary - will need to switch to IV if not more alert by morning (10) Essential tremor: Plan: Hold primidone in setting of altered mental state (11) Severe protein-calorie malnutrition: Plan: Start boost drinks once more alert Plan: VTE Prophylaxis - heparin 5000 units BID Diet - NPO until more alert Disposition - admit to PCU Admission and Anticipated Discharge Date Admission Date: Nov 27, 2021 History of Present Illness Chief Complaint: Lethargy Primary Care Provider: Юлия Harvey MD Usman Hilton is a 81 year old male who presents to the ER via EMS due to lethargy. Unable to get any significant history from the patient. Since being on doxycycline for pneumonia on November 18 for pneumonia he has been having diarrhea. Reportedly at his baseline yesterday per caregiver. Much more lethargic today. Reportedly taking his usual amount of hydrocodone. He was most recently hospitalized in September 2021 due to hypoxia related to pulmonary edema from CKD which improved with Bumex 1mg PO BID in additional to HCTZ 25mg PO daily on discharge. In the ER CXR is concerning for progression of his previously diagnosed pneumonia in right lower lobe. WBC increased to 17.05. Cr increased to 4.12 from baseline 2.97. When seen the patient was minimally responsive with respiratory rate 8 - agonal breathing. After naloxone given agonal breathing resolved, awake and responsive but in significant pain. Allergies Allergy/AdvReac Type Severity Reaction Status Date / Time cefuroxime Allergy Intermediate rash Verified 11/27/21 16:43 lisinopril Allergy Mild itching Verified 11/27/21 16:43 Home Medications Medication Instructions Recorded Confirmed Type aspirin 81 mg tablet,delayed 81 mg PO QAM 05/06/19 11/27/21 History release multivitamin (Daily Multi-Vitamin) 1 tab PO DAILY 05/28/21 11/27/21 History albuterol sulfate 90 mcg/actuation 2 inh INHALATION Q6H PRN #8.5 g 09/17/21 11/27/21 Rx aerosol inhaler ferrous sulfate 325 mg (65 mg 325 mg PO DAILY #30 tab 09/17/21 11/27/21 Rx iron) tablet,delayed release fluticasone fur. 200 mcg-umeclid 1 inh INHALATION DAILY #60 ea 09/17/21 11/27/21 Rx 62.5 mcg-vilant 25 mcg inhalat.powder (Trelegy Ellipta) mirtazapine 30 mg tablet 30 mg PO QPM #30 tab 09/17/21 11/27/21 Rx nitroglycerin 0.4 mg sublingual 0.4 mg SUBLINGUAL DIRECTED PRN 09/17/21 11/27/21 Rx tablet #25 tab omeprazole 20 mg capsule,delayed 20 mg PO DAILY #30 cap 09/17/21 11/27/21 Rx release tamsulosin 0.4 mg capsule 0.4 mg PO QPM #30 cap 09/17/21 11/27/21 Rx venlafaxine 37.5 mg 37.5 mg PO DAILY 30 Days #30 cap 09/17/21 11/27/21 Rx capsule,extended release 24 hr bumetanide 1 mg tablet 1 mg PO BID #60 tab 09/29/21 11/27/21 Rx diltiazem HCl 120 mg 120 mg PO DAILY #90 cap 10/26/21 11/27/21 Rx capsule,extended release 24 hr hydrochlorothiazide 25 mg tablet 25 mg PO DAILY #90 tab 10/26/21 11/27/21 Rx ondansetron HCl 4 mg tablet 4 mg PO Q6H PRN #30 tab 11/12/21 11/27/21 Rx amlodipine 5 mg tablet 5 mg PO DAILY 11/18/21 11/27/21 History atorvastatin 40 mg tablet 40 mg PO DAILY 11/18/21 11/27/21 History doxycycline hyclate 100 mg capsule 100 mg PO BID 10 Days #20 cap 11/18/21 11/27/21 Rx primidone 50 mg tablet 50 mg PO BID 11/18/21 11/27/21 History hydrocodone 10 mg-acetaminophen 2 tab PO Q6H PRN #240 tab MDD 8 11/20/21 11/27/21 Rx 325 mg tablet tabs lorazepam 0.5 mg tablet 0.5 mg PO TID PRN #90 tab 11/20/21 11/27/21 Rx [place] 8.4 g PO DAILY 11/27/21 11/27/21 History Past Med/Surg History Medical History AAA (abdominal aortic aneurysm) Acute hypoxemic respiratory failure Anemia of chronic disease Anxiety Bilateral pleural effusion CAD (coronary artery disease) PTCA with stent of RCA 1994 Chronic kidney disease, stage 4 (severe) Chronic pain Chronic renal insufficiency 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 exacerbation Essential tremor GERD (gastroesophageal reflux disease) Hyperlipidemia LDL goal <70 Hypertension Lower urinary tract symptoms (LUTS) Multiple rib fractures Opioid dependence treated with opiates for chronic low back pain for 10+ years Septal myocardial infarction SOB (shortness of breath) Tobacco abuse counseling Vitamin B12 deficiency Surgical History H/O heart artery stent (~1994) Family History Denies family history of Ovarian cancer Prostate cancer Myocardial infarction Breast cancer Colorectal cancer Social History Smoking Status: Unknown if ever smoked Tobacco Type: Cigarettes Cigarettes Per Day: 10; Smoking End Date: unknown; Second Hand Exposure: No; Do You Dip or Chew Tobacco: No; Tobacco Cessation Education Requested by Patient: No Hx Alcohol Use: No Hx Substance Use: No Preferred Language: Mauritian Communication Ability: Effective Visual Impairment: No Limitations Hearing Ability: Normal Associate Dean Required: No Beliefs That Will Affect Care: None marital status: Current Living Situation: Alone Current Living Situation Comment: Alone at home in apartment after of in March current occupational status: 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 many Children do You have: 1 Other Information That Helps Us Care for You: No Feels Safe at Home: Yes Safety Concerns: Feels Safe At This Time Childhood Exposure to Second-Hand Smoke: Yes Dental Care, Regularly: No Physical Activity Frequency: Does not Exercise Seatbelt Use: always Sunscreen Use: No (doesn't really go outside ) Assistive Devices: Oxygen - Continuous Review of Systems Review of Systems: Unobtainable due to cognitive status Physical Exam Constitutional: well developed and + cachectic; + not well nourished and no acute distress Eyes: PERRL, conjunctivae normal, anicteric sclerae ENMT: Mouth: + dry oral mucous membranes Neck: trachea midline Respiratory: + labored breathing, + uses accessory muscles and + abnormal respiratory pattern (agonal) Cardiovascular: Rate/Rhythm: regular rate and regular rhythm Heart Sounds: no murmur Extremities: normal capillary refill; no calf tenderness and no pedal edema Gastrointestinal (Abdomen): Inspection/Auscultation: normal bowel sounds Percussion/Palpation: abdomen soft; abdomen nontender, no guarding and abdomen not rigid Skin: no rashes, warm and dry Neurologic: + confused; + not awake Psychiatric: Orientation: + not alert Results & Data Results & Data ([facility]) Vital Signs (Past 12 Hours) Vital Signs Temp Pulse Resp BP Pulse Ox 11/27/21 14:48 36.1 C L 11/27/21 13:26 36.3 C L 64 18 123/51 L 100 Laboratory Results Abnormal lab results 11/27/21 11/27/21 11/27/21 Range/Units 13:43 13:43 15:00 WBC 17.05 H (4.8-10.8) K/uL RBC 2.79 L (4.7-6.1) M/uL Hgb 8.9 L (14.0-18.0) g/dL Hct 28.4 L (42-52) % MCV 101.8 H (80-100) fL MCHC 31.3 L (32-36) g/dL RDW Std Deviation 61.5 H (36.4-46.3) fL RDW Coeff of Lucas 16.6 H (11.5-14.5) % Plt Count 503 H (130-400) K/uL Neut # (Auto) 14.70 H (1.4-6.5) K/uL Lymph # (Auto) 1.06 L (1.2-3.4) K/uL [place] # (Auto) 0.94 H (0.11-0.59) K/uL Immature Gran # (Auto) 0.06 H (0.00-0.02) K/uL Sodium 135 L (136-145) mmol/L Potassium (3.5-5.1) mmol/L Anion Gap 12 H (3-11) BUN 120 H (6-23) mg/dl Creatinine 4.12 H (0.6-1.4) mg/dl BUN/Creatinine Ratio 29.1 H (10-20) Glucose 106 H (70-99(Fasting)) mg/dl Lactate 0.2 L (0.4-2.0) mmol/L Calcium 8.4 L (8.5-10.1) mg/dl Phosphorus 7.2 H (2.5-4.9) mg/dl Magnesium 1.4 L (1.7-2.4) mg/dl AST (13-39) U/L Total Creatine Kinase 27 L (30-223) U/L Albumin 3.2 L (3.4-5.0) gm/dl Urine Protein (Negative) Urine RBC (Auto) (0-4) /hpf U Epithel Cells (Auto) (0-5) /lpf 11/27/21 11/27/21 Range/Units 16:21 17:05 WBC (4.8-10.8) K/uL RBC (4.7-6.1) M/uL Hgb (14.0-18.0) g/dL Hct (42-52) % MCV (80-100) fL MCHC (32-36) g/dL RDW Std Deviation (36.4-46.3) fL RDW Coeff of Lucas (11.5-14.5) % Plt Count (130-400) K/uL Neut # (Auto) (1.4-6.5) K/uL Lymph # (Auto) (1.2-3.4) K/uL [place] # (Auto) (0.11-0.59) K/uL Immature Gran # (Auto) (0.00-0.02) K/uL Sodium (136-145) mmol/L Potassium 5.8 H (3.5-5.1) mmol/L Anion Gap (3-11) BUN (6-23) mg/dl Creatinine (0.6-1.4) mg/dl BUN/Creatinine Ratio (10-20) Glucose (70-99(Fasting)) mg/dl Lactate (0.4-2.0) mmol/L Calcium (8.5-10.1) mg/dl Phosphorus (2.5-4.9) mg/dl Magnesium (1.7-2.4) mg/dl AST 8 L (13-39) U/L Total Creatine Kinase (30-223) U/L Albumin (3.4-5.0) gm/dl Urine Protein 2+ H (Negative) Urine RBC (Auto) 5-10 H (0-4) /hpf U Epithel Cells (Auto) 10-20 H (0-5) /lpf Diagnostic Findings CT OF THE HEAD WITHOUT CONTRAST CLINICAL HISTORY: Altered mental status. COMPARISON STUDY: Head CT February 25, 2019. CT DOSE: 614.27 mGy.cm TECHNIQUE: Helical axial images of the head were obtained without IV contrast. Automated exposure control was utilized for the study. A dose lowering technique was utilized adhering to the principles of ALARA. FINDINGS: No acute intracranial hemorrhage, midline shift or mass effect is present. White matter hypodensity suggests small vessel disease. The ventricular system is unremarkable. The basal cisterns are patent. No extra-axial collectio ns are present. There are no findings to suggest acute dural sinus thrombosis or acute territorial infarct. No significant calvarial abnormalities are present. Visualized portions of the sinuses and mastoid air cells are clear. IMPRESSION: No acute intracranial findings. XR chest 1V portable CLINICAL HISTORY: SEPSIS COMPARISON STUDY: Chest radiograph November 18, 2021. FINDINGS: There is no pneumothorax. Small right pleural effusion is present. There has been progression of right mid and lower lung airspace opacity since chest radiograph of November 18, 2021. Mild cardiomegaly is noted. There is no evidence for overt pulmonary edema. IMPRESSION: Progression of right lower lung airspace opacity since prior exam. This favors pneumonia. Radiographic follow-up to ensure resolution is recommended. ABDOMEN AND PELVIS CT WITHOUT CONTRAST CT DOSE: 406.25 mGy.cm HISTORY: Altered mental status. Acute on chronic renal failure. TECHNIQUE: Multiaxial CT images of the abdomen and pelvis were performed without contrast. A dose lowering technique was utilized adhering to the principles of ALARA. COMPARISON STUDY: Abdomen and pelvis CT 03/04/2019. FINDINGS: There is a small right and trace left pleural effusion. The heart is enlarged. Patchy airspace opacities within the right lower lobe favor a pneumonia could be due to aspiration. Mild interlobular septal thickening at the lung bases likely representing mild congestive change. There are small densities within the left lung base suggesting subsegmental atelectasis. No pneumoperitoneum. No pneumatosis. No suspicious lytic or blastic osseous lesions. A Hdz catheter is in good position within the decompressed bladder. Gas within the bladder lumen likely due to the catheterization. The unenhanced liver, spleen, adrenal glands, and pancreas unremarkable. Renal vascular calcifications are noted. No definite renal or ureteral calculi. No hydronephrosis. There is bilateral perinephric edema. There is mild diffuse mesenteric edema. No retroperitoneal lymphadenopathy. There is pericholecystic fluid. Aneurysmal dilatation of the abdominal aorta and common iliac arteries are again noted. The abdominal aorta measures up to 4.9 cm in diameter which has slightly progressed compared to the prior study when it measured 4.4 cm.. 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 Mild gallbladder distention, unchanged. No change in the perianeurysmal retroperitoneal fibrosis. There is thickening within the ascending colon which is new from the prior study. This is consistent with a nonspecific colitis but favors an inflammatory or infectious process. No evidence for bowel obstruction. Normal appendix. Overall, suboptimal evaluation for bowel pathology due to the lack of intravenous and oral contrast as well as the possibility of intra-abdominal fat. Moderate well-formed stool seen within the colon. IMPRESSION: 1. Thickening of the ascending colon consistent with a colitis. This favors an infectious or inflammatory process. 2. Small amount of fluid adjacent to the gallbladder. However, there is no gallbladder wall thickening. Therefore, this is likely reactive to the adjacent colitis. 3. Small right pleural effusion and right basilar airspace opacities. This likely represents a pneumonia and could be due to aspiration. 4. Slight increase in size within the infrarenal abdominal aortic aneurysm which currently measures 4.9 cm, previously measuring 4.4 cm. Bilateral common iliac artery aneurysms are also noted as described above.. Medications Administered ER Medications Given: NSS 500ml bolus Acetaminophen 1g IV Solu-Medrol 125mg IV Duoneb 3ml Mg Sulphate 1g IV x2 ECG Indication: altered mental status Rate (beats per minute): 61 Rhythm: normal sinus Findings: + nonspecific-ST abn Comparison ECG Date: from (Nov 18, 2021) Change: no significant change Code Status & VTE Plan Code Status DNR/DNI - as discussed with the patient's daughter, patient unable to contribute before or after naloxone VTE Prophylaxis Plan VTE Prophylaxis will be ordered: Yes PG Care Time/CCT Total # of Minutes Spent Total Time Spent with Patient: Total time spent is greater than 50% in coordination of care (as documented) at patient's floor/unit and/or counseling patient: Coding Level of Care Code 20971 Initial Inpt Care Lvl 3 Diagnoses Sepsis A41.9 Bradypnea R06.89 Chronic pain G89.4 Chronic pain type: chronic pain syndrome Right lower lobe pneumonia J18.9 Pneumonia type: due to unspecified organism Acute on chronic renal failure N17.9; N18.9 Acute renal failure type: unspecified Chronic kidney disease stage: unspecified stage Hypomagnesemia E83.42 Chronic respiratory failure with hypoxia J96.11 GERD (gastroesophageal reflux disease) K21.9 Severe protein-calorie malnutrition E43 Essential tremor G25.0 Colitis K52.9 (1) Chronic pain Chronic pain type: chronic pain syndrome Qualified Code(s): G89.4 - Chronic pain syndrome (2) Right lower lobe pneumonia Pneumonia type: due to unspecified organism Qualified Code(s): J18.9 - Pneumonia, unspecified organism (3) Acute on chronic renal failure Acute renal failure type: unspecified Chronic kidney disease stage: unspecified stage Qualified Code(s): N17.9 - Acute kidney failure, unspecified; N18.9 - Chronic kidney disease, unspecified
[2021-11-27 16:44] LABS: Potassium 5.8 mmol/L (3.5-5.1)
[2021-11-27] MEDS ORDERED: NALOXONE HCL 0.4 MG/1 ML VIAL/CARP IV STA (16:45)
[2021-11-27] MEDS ORDERED: LORazepam 2 MG/1 ML VIAL IV STA (17:07)
[2021-11-27] MEDS ORDERED: LORazepam 2 MG/1 ML VIAL ONE (17:10)
[2021-11-27 17:23] LABS: Appearance Urine Clear (Clear); Bacteria Urine Automated Negative (Negative); Bilirubin Urine Negative (Negative); Blood Urine Negative (Negative); Cast Urine Automated 0 /lpf (0-5); Color Urine Yellow; Glucose Urine UA Negative (Negative); Ketones Urine Negative (Negative); Leukocyte Esterase Urine Negative (Negative); Nitrite Urine Negative (Negative); Protein Urine 2+ (Negative); Specific Gravity Urine 1.015 (1.000-1.030); Urobilinogen Urine Negative (Negative)
--- NOTE | 2021-11-27 18:18 | CT Scan Report ---
ABDOMEN AND PELVIS CT WITHOUT CONTRAST CT DOSE: 406.25 mGy.cm HISTORY: Altered mental status. Acute on chronic renal failure. TECHNIQUE: Multiaxial CT images of the abdomen and pelvis were performed without contrast. A dose lo wering technique was utilized adhering to the principles of ALARA. COMPARISON STUDY: Abdomen and pelvis CT 03/04/2019. FINDINGS: There is a small right and trace left pleural effusion. The heart is enlarged. Patchy airsp jesus opacities within the right lower lobe favor a pneumonia could be due to aspiration. Mild interlob ular septal thickening at the lung bases likely representing mild congestive change. There are small densities within the left lung base suggesting subsegmental atelectasis. No pneumoperitoneum. No pneu matosis. No suspicious lytic or blastic osseous lesions. A Hdz catheter is in good position within the decompressed bladder. Gas within the bladder lumen likely due to the catheterization. The unenhan jean claude liver, spleen, adrenal glands, and pancreas unremarkable. Renal vascular calcifications are noted . No definite renal or ureteral calculi. No hydronephrosis. There is bilateral perinephric edema. The re is mild diffuse mesenteric edema. No retroperitoneal lymphadenopathy. There is pericholecystic flu id. Aneurysmal dilatation of the abdominal aorta and common iliac arteries are again noted. The abdom inal aorta measures up to 4.9 cm in diameter which has slightly progressed compared to the prior stud y when it measured 4.4 cm.. 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 Mild gallbladder distention, unchange d. No change in the perianeurysmal retroperitoneal fibrosis. There is thickening within the ascending colon which is new from the prior study. This is consistent with a nonspecific colitis but favors an inflammatory or infectious process. No evidence for bowel obstruction. Normal appendix. Overall, sub optimal evaluation for bowel pathology due to the lack of intravenous and oral contrast as well as th e possibility of intra-abdominal fat. Moderate well-formed stool seen within the colon. IMPRESSION: 1. Thickening of the ascending colon consistent with a colitis. This favors an infectious or inflamma tory process. 2. Small amount of fluid adjacent to the gallbladder. However, there is no gallbladder wall thickenin g. Therefore, this is likely reactive to the adjacent colitis. 3. Small right pleural effusion and right basilar airspace opacities. This likely represents a pneumo edis and could be due to aspiration. 4. Slight increase in size within the infrarenal abdominal aortic aneurysm which currently measures 4 .9 cm, previously measuring 4.4 cm. Bilateral common iliac artery aneurysms are also noted as describ ed above.. ACT 112: Negative or not required by law. Electronically signed by: Han Bryan M.D. 11/27/2021 6:16 PM
[2021-11-27] MEDS ORDERED: LORazepam 0.5 MG TAB PO PRN (18:46)
[2021-11-27] MEDS ORDERED: PRIMIDONE 50 MG TAB PO SCH (21:00)
[2021-11-27] MEDS ORDERED: MIRTAZAPINE TAB 15 MG TAB PO SCH (21:00)
[2021-11-27] MEDS ORDERED: TAMSULOSIN HCL 0.4 MG CAP PO SCH (21:00)
[2021-11-27] MEDS ORDERED: LORazepam 2 MG/1 ML VIAL IV PRN (21:47)
[2021-11-27] MEDS ORDERED: AZITHROMYCIN 500 MG in DEXTROSE 5% 250 ML IV SCH (22:00)
[2021-11-27] MEDS ORDERED: ACETAMINOPHEN 1,000 MG/100 ML VIAL IV PRN (22:21)
[2021-11-27] MEDS: metroNIDAZOLE 500 MG/100 ML BAG IV SCH (22:22)
[2021-11-28] MEDS: HEPARIN SOD 5,000 UNIT/0.5 ML VIAL SQ SCH ×3 (00:09→20:12)
[2021-11-28] MEDS: VANCOMYCIN HCL 500 MG/10 ML SOLN PO SCH ×2 (00:09→05:28)
[2021-11-28] MEDS: RASPBERRY SYRUP 5 ML UDP PO SCH ×4 (00:09→18:14)
[2021-11-28] MEDS: PIPERACILLIN/TAZOBACTAM 3.375 GM in DEXTROSE 5% 100 ML IV SCH ×2 (00:12→12:47)
[2021-11-28] MEDS: metroNIDAZOLE 500 MG/100 ML BAG IV SCH (05:43)
[2021-11-28] MEDS: PANTOprazole 40 MG TAB PO SCH (06:55)
[2021-11-28] MEDS: VENLAFAXINE HCL XR 37.5 MG CAPXR PO SCH (06:56)
[2021-11-28] MEDS: FLUTICASONE FUROATE 200MCG 14 PUFFS/INHALER INH SCH (06:58)
[2021-11-28] MEDS: UMECLIDINIUM/VILANTEROL 62.5/25MCG 7 PUFFS/INHALER INH SCH (06:59)
[2021-11-28 07:51] LABS: Hematocrit (blood only) 22.9 % (42-52); Hemoglobin 7.2 g/dL (14.0-18.0); Immature Granulocytes # (auto) 0.01 K/uL (0.00-0.02); Immature Granulocytes % (auto) 0.1 %; Lymphocytes # (auto) 0.37 K/uL (1.2-3.4); Lymphocytes % (auto) 3.8 %; Mean Corpuscular Hemoglobin 31.4 pg (25-34); Mean Corpuscular Hgb Conc 31.4 g/dL (32-36); Mean Platelet Volume 9.9 fL (7.4-10.4); Monocytes # (auto) 0.07 K/uL (0.11-0.59); Monocytes % (auto) 0.7 %; Neutrophils # (auto) 9.32 K/uL (1.4-6.5); Neutrophils % (auto) 95.4 %; Platelet Count 430 K/uL (130-400); RDW Coefficient of Variation 16.4 % (11.5-14.5); RDW Standard Deviation 60.1 fL (36.4-46.3); Red Blood Count 2.29 M/uL (4.7-6.1); White Blood Count 9.77 K/uL (4.8-10.8)
[2021-11-28 08:14] LABS: RBC Morphology Unremarkable
[2021-11-28 08:16] LABS: Albumin Globulin Ratio 0.9 (0.9-2); Albumin Level 2.9 gm/dl (3.4-5.0); BUN Creatinine Ratio 27.1 (10-20); Bilirubin,Total 0.2 mg/dl (0.2-1.0); Calcium 7.9 mg/dl (8.5-10.1); Creatinine Clr Calc Pharmacy 9.6 ml/min; Est GFR (African American) 13.5 ml/min; Est GFR (Non-African American) 11.7 ml/min; Globulin 3.3 gm/dl (2.5-4.0); Magnesium 1.8 mg/dl (1.7-2.4); Potassium 5.5 mmol/L (3.5-5.1); Total Protein 6.2 gm/dl (6.0-8.3)
[2021-11-28] MEDS ORDERED: NON-FORMULARY MEDICATION (Fluticasone-Umeclidin-Vilanter [Trelegy Ellipta] 200-62.5-25 mcg INH SCH (09:00)
[2021-11-28] MEDS ORDERED: SODIUM BICARBONATE 8.4% 150 MEQ in DEXTROSE 5% 1,000 ML IV SCH (10:15)
[2021-11-28] MEDS: PATIROMER CALCIUM SORBITEX 8.4 GM PACK PO SCH ×2 (10:51→11:08)
[2021-11-28] MEDS ORDERED: ALBUTEROL HFA 8 GM INHALER INH PRN (11:34)
[2021-11-28] MEDS ORDERED: NITROGLYCERIN SL 0.4 MG/TAB TAB SL PRN (11:34)
--- NOTE | 2021-11-28 11:42 | Hospitalist Progress Note ---
Date of Service November 28, 2021 Assessment & Plan (1) Sepsis: Plan: Suspected source pneumonia and colitis Continue IV Zosyn + azithromycin but change to 250mg po daily for PNA MRSA nasal swab is negative so no need for MRSA coverage continue po Vancomycin but decrease dose to 125mg po Q6H for presumed C. diff--> still awaiting stool sample -dc metronidazole as po Vanco should be sufficient and diarrhea has already stopped Improving, BPs stable (2) Acute encephalopathy: Plan: came in obtunded, secondary to renal failure, opioid use was given Narcan and had immediate improvement now resolved (3) Right lower lobe pneumonia: Plan: Progression of pneumonia on CXR while on doxycycline ?aspiration given location - SLT assessment appreciated-no overt aspiration at bedside but if he was sedated from opioids, could have aspirated then Zosyn + azithromycin as above (4) Colitis: Plan: Noted on CT - no abd tenderness -awaiting C. diff sample but no diarrhea so far continue po Vanco empirically and dc Flagyl (5) Acute on chronic renal failure: Plan: Appears dry on exam in setting of current infection and diuretic use. [employer] worsening today to 4.46 with worsening hyponatremia, metabolic acidosis and hyperkalemia Baseline creatinine 2.6 No evidence for obstruction on CT A/P UA with some RBCs likely from Hdz trauma Restart home Veltassa once daily DC LR and start bicarbonate drip x1 L Continue holding home bumetanide Appreciate nephrology consultation Follow BMP Follow urine output with continued Hdz catheter (6) Hyperkalemia: Plan: As above Start bicarbonate drip, Veltassa Follow BMP this evening and again in the morning (7) Bradypnea: Plan: Occasional agonal breathing in the ER. Naloxone 0.4mg IV given to good effect however caused patient excessive pain Now completely resolved Okay to restart chronic opioids (8) Chronic pain: Plan: Initially held opiates in setting of suspected overdose with bradypnea as above Now in significant pain and encephalopathy completely resolved Okay to restart home hydrocodone 10 mg 2 tablets p.o. every 6 hours as needed (9) Hypomagnesemia: Plan: Replaced and resolved (10) Chronic respiratory failure with hypoxia: Plan: Baseline 7LPM O2 - actually maintaining O2 sats with less O2 currently at 2-3 L Wean O2 to aim O2 sats > 90% (11) GERD (gastroesophageal reflux disease): Plan: Switch omeprazole to pantoprazole per hospital formulary (12) Essential tremor: Plan: Okay to restart home primidone now that he is more awake (13) Severe protein-calorie malnutrition: Plan: BMI 15.2 Needs nutrition consultation (14) Hyponatremia: Plan: As above, sodium dropping to 132, secondary to acute kidney injury Giving volume replacement as above Follow BMP (15) Anemia: Plan: Hemoglobin down 7.2 Has been treated with Epogen and IV iron in the past Check iron studies Follow CBC (16) AAA (abdominal aortic aneurysm): Plan: Noted on CT abdomen/pelvis 4.4 cm Follow as an outpatient (17) Opioid dependence: Plan: as above (18) CAD (coronary artery disease): Plan: h/o stent to RCA 1995 continue ASA, statin (19) Hypertension: Plan: BPs elevated but has not received meds he has amlodipine and diltiazem listed on home med rec but dc summary from 09/2021 says to stop amlodipine and add dilt due to SVT/?Afib also supposed to be on Toprol XL 100mg daily but this hasn't been filled recently-restart 50mg po daily -restart diltiazem 120mg po daily hold home bumex and HCTZ (20) Depression: Plan: mood is irritable continue Effexor, restart Mirtazapine Plan: VTE Prophylaxis - heparin 5000 units BID Disposition - continued stay PCU Now that he is awake/alert, he tells me he wants CPR, but no ventilation--> changed to conditional code Admission and Anticipated Discharge Date Admission Date: November 27, 2021 Subjective Patient reports feeling pain in his upper and lower back as always and he is upset that his hydrocodone was stopped. He would like it to be restarted. Otherwise, he denies any cough. He is upset that his oxygen is at 2 L nasal cannula as he typically wears 7 L at home. However, his pulse ox has been 99%. He does not think he has had any more diarrhea since admission. No abdominal pains. He reports at home he has been making less urine than normal. I discussed his care with nephrology. Telemetry with normal sinus rhythm with rates in the 80s to 90s Review of Systems Review of Systems: All systems reviewed & are unremarkable except as noted in HPI & below Physical Exam Constitutional: + cachectic and + frail appearing; no acute distress Eyes: PERRL, conjunctivae normal, anicteric sclerae ENMT: external ear and nose normal, oropharynx normal Neck: trachea midline, no thyromegaly Respiratory: normal respiratory effort; no cough Auscultation: + rhonchi (Right base); no wheezes Cardiovascular: RRR, no murmur, no edema Chest (Breasts): Chest: normal inspection of chest Gastrointestinal (Abdomen): normal bowel sounds, soft, nontender, no hepatosplenomegaly Musculoskeletal: Extremities: extremities normal to inspection; no cyanosis and no clubbing Skin: no rashes, warm and dry Neurologic: moves all extremities and awake; no focal motor deficits Psychiatric: A+Ox3, euthymic affect Lymphatic: no lymphedema Results & Data Results & Data ([facility]) Vital Signs (Past 12 Hours) Vital Signs Temp Pulse Pulse Resp BP Pulse Ox Pulse Ox 11/28/21 11:10 36.5 C 93 H 17 164/69 H 100 11/28/21 07:51 92 H 11/28/21 07:47 98 11/28/21 06:36 36.7 C 90 16 141/64 H 98 11/28/21 04:19 36.7 C 87 16 131/65 98 Laboratory Results 11/28/21 11/28/21 11/27/21 Range/Units 06:51 06:51 23:20 WBC 9.77 (4.8-10.8) K/uL RBC 2.29 L (4.7-6.1) M/uL Hgb 7.2 L (14.0-18.0) g/dL Hct 22.9 L (42-52) % MCV 100.0 (80-100) fL MCH 31.4 (25-34) pg MCHC 31.4 L (32-36) g/dL RDW Std Deviation 60.1 H (36.4-46.3) fL RDW Coeff of Lucas 16.4 H (11.5-14.5) % Plt Count 430 H (130-400) K/uL MPV 9.9 (7.4-10.4) fL Immature Gran % (Auto) 0.1 % Neut % (Auto) 95.4 % Lymph % (Auto) 3.8 % Mckenzie % (Auto) 0.7 % Eos % (Auto) 0.0 % Baso % (Auto) 0.0 % Neut # (Auto) 9.32 H (1.4-6.5) K/uL Lymph # (Auto) 0.37 L (1.2-3.4) K/uL Mckenzie # (Auto) 0.07 L (0.11-0.59) K/uL Eos # (Auto) 0.00 (0-0.5) K/uL Baso # (Auto) 0.00 (0-0.2) K/uL Immature Gran # (Auto) 0.01 (0.00-0.02) K/uL RBC Morphology Unremarkable PT (9.0-12.0) Seconds INR (0.9-1.1) APTT (21.0-31.0) Seconds PTT Ratio Sodium 132 L (136-145) mmol/L Potassium 5.5 H Chloride 101 (98-107) mmol/L Carbon Dioxide 20 L (21-32) mmol/L Anion Gap 11 (3-11) BUN 121 H (6-23) mg/dl Creatinine 4.46 H D (0.6-1.4) mg/dl Est Cr Clr Drug Dosing 9.6 ml/min Est GFR ( Amer) 13.5 ml/min Est GFR (Non-Af Amer) 11.7 ml/min BUN/Creatinine Ratio 27.1 H (10-20) Glucose 125 H (70-99(Fasting)) mg/dl Lactate (0.4-2.0) mmol/L Calcium 7.9 L (8.5-10.1) mg/dl Phosphorus (2.5-4.9) mg/dl Magnesium 1.8 (1.7-2.4) mg/dl Total Bilirubin 0.2 (0.2-1.0) mg/dl AST 7 L ALT 9 (7-52) U/L Alkaline Phosphatase 48 (34-104) U/L Total Creatine Kinase (30-223) U/L Troponin I (0-0.04) ng/ml Total Protein 6.2 (6.0-8.3) gm/dl Albumin 2.9 L (3.4-5.0) gm/dl Globulin 3.3 (2.5-4.0) gm/dl Albumin/Globulin Ratio 0.9 (0.9-2) Procalcitonin (0-0.5) ng/ml Urine Color Urine Appearance (Clear) Urine pH (4.5-7.5) Ur Specific [place] (1.000-1.030) Urine Protein (Negative) Urine Glucose (UA) (Negative) Urine Ketones (Negative) Urine Blood (Negative) Urine Nitrite (Negative) Urine Bilirubin (Negative) Urine Urobilinogen (Negative) Ur Leukocyte Esterase (Negative) Urine WBC (Auto) (0-5) /hpf Urine RBC (Auto) (0-4) /hpf U Hyaline Cast (Auto) (0-5) /lpf U Epithel Cells (Auto) (0-5) /lpf Urine Bacteria (Auto) (Negative) Nasal Screen MRSA (PCR) Negative (Negative) SARS-CoV-2, RNA, NAAT (NEGATIVE) 11/27/21 11/27/21 11/27/21 Range/Units 17:05 16:21 15:00 WBC (4.8-10.8) K/uL RBC (4.7-6.1) M/uL Hgb (14.0-18.0) g/dL Hct (42-52) % MCV (80-100) fL MCH (25-34) pg MCHC (32-36) g/dL RDW Std Deviation (36.4-46.3) fL RDW Coeff of Lucas (11.5-14.5) % Plt Count (130-400) K/uL MPV (7.4-10.4) fL Immature Gran % (Auto) % Neut % (Auto) % Lymph % (Auto) % Mckenzie % (Auto) % Eos % (Auto) % Baso % (Auto) % Neut # (Auto) (1.4-6.5) K/uL Lymph # (Auto) (1.2-3.4) K/uL Mckenzie # (Auto) (0.11-0.59) K/uL Eos # (Auto) (0-0.5) K/uL Baso # (Auto) (0-0.2) K/uL Immature Gran # (Auto) (0.00-0.02) K/uL RBC Morphology PT (9.0-12.0) Seconds INR (0.9-1.1) APTT (21.0-31.0) Seconds PTT Ratio Sodium (136-145) mmol/L Potassium 5.8 H Chloride (98-107) mmol/L Carbon Dioxide (21-32) mmol/L Anion Gap (3-11) BUN (6-23) mg/dl Creatinine (0.6-1.4) mg/dl Est Cr Clr Drug Dosing ml/min Est GFR ( Amer) ml/min Est GFR (Non-Af Amer) ml/min BUN/Creatinine Ratio (10-20) Glucose (70-99(Fasting)) mg/dl Lactate 0.2 L (0.4-2.0) mmol/L Calcium (8.5-10.1) mg/dl Phosphorus (2.5-4.9) mg/dl Magnesium (1.7-2.4) mg/dl Total Bilirubin (0.2-1.0) mg/dl AST 8 L ALT (7-52) U/L Alkaline Phosphatase (34-104) U/L Total Creatine Kinase (30-223) U/L Troponin I (0-0.04) ng/ml Total Protein (6.0-8.3) gm/dl Albumin (3.4-5.0) gm/dl Globulin (2.5-4.0) gm/dl Albumin/Globulin Ratio (0.9-2) Procalcitonin (0-0.5) ng/ml Urine Color Yellow Urine Appearance Clear (Clear) Urine pH 5.0 (4.5-7.5) Ur Specific [place] 1.015 (1.000-1.030) Urine Protein 2+ H (Negative) Urine Glucose (UA) Negative (Negative) Urine Ketones Negative (Negative) Urine Blood Negative (Negative) Urine Nitrite Negative (Negative) Urine Bilirubin Negative (Negative) Urine Urobilinogen Negative (Negative) Ur Leukocyte Esterase Negative (Negative) Urine WBC (Auto) 1-5 (0-5) /hpf Urine RBC (Auto) 5-10 H (0-4) /hpf U Hyaline Cast (Auto) 0 (0-5) /lpf U Epithel Cells (Auto) 10-20 H (0-5) /lpf Urine Bacteria (Auto) Negative (Negative) Nasal Screen MRSA (PCR) (Negative) SARS-CoV-2, RNA, NAAT (NEGATIVE) 11/27/21 11/27/21 11/27/21 Range/Units 14:53 13:43 13:43 WBC (4.8-10.8) K/uL RBC (4.7-6.1) M/uL Hgb (14.0-18.0) g/dL Hct (42-52) % MCV (80-100) fL MCH (25-34) pg MCHC (32-36) g/dL RDW Std Deviation (36.4-46.3) fL RDW Coeff of Lucas (11.5-14.5) % Plt Count (130-400) K/uL MPV (7.4-10.4) fL Immature Gran % (Auto) % Neut % (Auto) % Lymph % (Auto) % Mckenzie % (Auto) % Eos % (Auto) % Baso % (Auto) % Neut # (Auto) (1.4-6.5) K/uL Lymph # (Auto) (1.2-3.4) K/uL Mckenzie # (Auto) (0.11-0.59) K/uL Eos # (Auto) (0-0.5) K/uL Baso # (Auto) (0-0.2) K/uL Immature Gran # (Auto) (0.00-0.02) K/uL RBC Morphology PT (9.0-12.0) Seconds INR (0.9-1.1) APTT (21.0-31.0) Seconds PTT Ratio Sodium 135 L (136-145) mmol/L Potassium TNP Chloride 102 (98-107) mmol/L Carbon Dioxide 21 (21-32) mmol/L Anion Gap 12 H (3-11) BUN 120 H (6-23) mg/dl Creatinine 4.12 H (0.6-1.4) mg/dl Est Cr Clr Drug Dosing 10.5 ml/min Est GFR ( Amer) 14.9 ml/min Est GFR (Non-Af Amer) 12.9 ml/min BUN/Creatinine Ratio 29.1 H (10-20) Glucose 106 H (70-99(Fasting)) mg/dl Lactate (0.4-2.0) mmol/L Calcium 8.4 L (8.5-10.1) mg/dl Phosphorus 7.2 H (2.5-4.9) mg/dl Magnesium 1.4 L (1.7-2.4) mg/dl Total Bilirubin 0.3 (0.2-1.0) mg/dl AST TNP ALT 11 (7-52) U/L Alkaline Phosphatase 61 (34-104) U/L Total Creatine Kinase 27 L (30-223) U/L Troponin I < 0.03 (0-0.04) ng/ml Total Protein 6.7 (6.0-8.3) gm/dl Albumin 3.2 L (3.4-5.0) gm/dl Globulin 3.5 (2.5-4.0) gm/dl Albumin/Globulin Ratio 0.9 (0.9-2) Procalcitonin 0.44 (0-0.5) ng/ml Urine Color Urine Appearance (Clear) Urine pH (4.5-7.5) Ur Specific [place] (1.000-1.030) Urine Protein (Negative) Urine Glucose (UA) (Negative) Urine Ketones (Negative) Urine Blood (Negative) Urine Nitrite (Negative) Urine Bilirubin (Negative) Urine Urobilinogen (Negative) Ur Leukocyte Esterase (Negative) Urine WBC (Auto) (0-5) /hpf Urine RBC (Auto) (0-4) /hpf U Hyaline Cast (Auto) (0-5) /lpf U Epithel Cells (Auto) (0-5) /lpf Urine Bacteria (Auto) (Negative) Nasal Screen MRSA (PCR) (Negative) SARS-CoV-2, RNA, NAAT NEGATIVE (NEGATIVE) 11/27/21 11/27/21 Range/Units 13:43 13:43 WBC 17.05 H (4.8-10.8) K/uL RBC 2.79 L (4.7-6.1) M/uL Hgb 8.9 L (14.0-18.0) g/dL Hct 28.4 L (42-52) % MCV 101.8 H (80-100) fL MCH 31.9 (25-34) pg MCHC 31.3 L (32-36) g/dL RDW Std Deviation 61.5 H (36.4-46.3) fL RDW Coeff of Lucas 16.6 H (11.5-14.5) % Plt Count 503 H (130-400) K/uL MPV 9.9 (7.4-10.4) fL Immature Gran % (Auto) 0.4 % Neut % (Auto) 86.2 % Lymph % (Auto) 6.2 % Mckenzie % (Auto) 5.5 % Eos % (Auto) 1.6 % Baso % (Auto) 0.1 % Neut # (Auto) 14.70 H (1.4-6.5) K/uL Lymph # (Auto) 1.06 L (1.2-3.4) K/uL Mckenzie # (Auto) 0.94 H (0.11-0.59) K/uL Eos # (Auto) 0.27 (0-0.5) K/uL Baso # (Auto) 0.02 (0-0.2) K/uL Immature Gran # (Auto) 0.06 H (0.00-0.02) K/uL RBC Morphology PT 10.0 (9.0-12.0) Seconds INR 1.0 (0.9-1.1) APTT 28.9 (21.0-31.0) Seconds PTT Ratio 1.1 Sodium (136-145) mmol/L Potassium Chloride (98-107) mmol/L Carbon Dioxide (21-32) mmol/L Anion Gap (3-11) BUN (6-23) mg/dl Creatinine (0.6-1.4) mg/dl Est Cr Clr Drug Dosing ml/min Est GFR ( Amer) ml/min Est GFR (Non-Af Amer) ml/min BUN/Creatinine Ratio (10-20) Glucose (70-99(Fasting)) mg/dl Lactate (0.4-2.0) mmol/L Calcium (8.5-10.1) mg/dl Phosphorus (2.5-4.9) mg/dl Magnesium (1.7-2.4) mg/dl Total Bilirubin (0.2-1.0) mg/dl AST ALT (7-52) U/L Alkaline Phosphatase (34-104) U/L Total Creatine Kinase (30-223) U/L Troponin I (0-0.04) ng/ml Total Protein (6.0-8.3) gm/dl Albumin (3.4-5.0) gm/dl Globulin (2.5-4.0) gm/dl Albumin/Globulin Ratio (0.9-2) Procalcitonin (0-0.5) ng/ml Urine Color Urine Appearance (Clear) Urine pH (4.5-7.5) Ur Specific [place] (1.000-1.030) Urine Protein (Negative) Urine Glucose (UA) (Negative) Urine Ketones (Negative) Urine Blood (Negative) Urine Nitrite (Negative) Urine Bilirubin (Negative) Urine Urobilinogen (Negative) Ur Leukocyte Esterase (Negative) Urine WBC (Auto) (0-5) /hpf Urine RBC (Auto) (0-4) /hpf U Hyaline Cast (Auto) (0-5) /lpf U Epithel Cells (Auto) (0-5) /lpf Urine Bacteria (Auto) (Negative) Nasal Screen MRSA (PCR) (Negative) SARS-CoV-2, RNA, NAAT (NEGATIVE) PG Care Time/CCT Total # of Minutes Spent Total Time Spent with Patient: Total time spent is greater than 50% in coordination of care (as documented) at patient's floor/unit and/or counseling patient: Coding Level of Care Code 35514 Subseq Hosp Care Lvl 3 Diagnoses Sepsis A41.9 Right lower lobe pneumonia J18.9 Pneumonia type: due to unspecified organism Colitis K52.9 Acute on chronic renal failure N17.9; N18.9 Acute renal failure type: unspecified Chronic kidney disease stage: unspecified stage Bradypnea R06.89 Chronic pain G89.4 Chronic pain type: chronic pain syndrome Hypomagnesemia E83.42 Chronic respiratory failure with hypoxia J96.11 GERD (gastroesophageal reflux disease) K21.9 Essential tremor G25.0 Severe protein-calorie malnutrition E43 Hyperkalemia E87.5 Hyponatremia E87.1 Anemia D64.9 AAA (abdominal aortic aneurysm) I71.4 Opioid dependence F11.20 CAD (coronary artery disease) I25.10 Hypertension I10 Depression F32.A Acute encephalopathy G93.40 (1) Chronic pain Chronic pain type: chronic pain syndrome Qualified Code(s): G89.4 - Chronic pain syndrome (2) Right lower lobe pneumonia Pneumonia type: due to unspecified organism Qualified Code(s): J18.9 - Pneumonia, unspecified organism (3) Acute on chronic renal failure Acute renal failure type: unspecified Chronic kidney disease stage: unspecified stage Qualified Code(s): N17.9 - Acute kidney failure, unspecified; N18.9 - Chronic kidney disease, unspecified
[2021-11-28] MEDS ORDERED: amLODIPine BESYLATE 5 MG TAB PO SCH (11:45)
[2021-11-28] MEDS: ASPIRIN 81 MG ECTAB PO SCH (12:12)
[2021-11-28] MEDS: ATORVASTATIN 40 MG TAB PO SCH (12:12)
[2021-11-28] MEDS: FERROUS SULFATE 325 MG TAB PO SCH (12:12)
[2021-11-28] MEDS: VANCOMYCIN HCL 125 MG/2.5ML SOLN PO SCH ×2 (12:12→18:14)
[2021-11-28] MEDS: dilTIAZem HCL 120 MG CAPCR PO SCH (12:12)
--- NOTE | 2021-11-28 12:42 | Electrocardiogram Report ---
Test Reason : Blood Pressure : / mmHG Vent. Rate : 061 BPM Atrial Rate : 061 BPM P-R Int : 156 ms QRS Dur : 090 ms QT Int : 434 ms P-R-T Axes : 069 073 074 degrees QTc Int : 436 ms Normal sinus rhythm Minimal voltage criteria for LVH, may be normal variant Nonspecific ST abnormality Abnormal ECG When compared with ECG of 18-NOV-2021 19:24, No significant change was found Confirmed by Antonio Berrios [id number]) on 11/28/2021 12:41:45 PM Referred By: REFERRED SELF Confirmed By:Antonio Berrios
[2021-11-28] MEDS: HYDROcodone/ACETAMINOPHEN 10/325 TAB PO PRN ×2 (12:46→18:39)
--- NOTE | 2021-11-28 12:49 | Nephrology Consultation ---
Date of Consultation November 28, 2021 Assessment & Plan (1) KEAGAN (acute kidney injury): Non-oliguric. Intravascularly volume depleted. NaHCO3 gtt @ 80 ml/hr. UA notable for a few RBC's following Hdz placement. No WBC's. CT demonstrated kidneys to be unobstructed. Noted calcifications without significant DEJON based on duplex performed during recent hospitalization. Document strict I/O's. Diuretics held. Medications appropriate for kidney dysfunction. (2) Hyperkalemia: Patiromer 8.4 grams daily. Low potassium diet. Repeat serum potassium this evening. 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 Dialysis will not be considered part of the care plan based on prior discussions. Due to advanced illness and frailty, unlikely to tolerate. Overall, prognosis is guarded. We have discussed this during prior admissions. Usman expressed understanding. His focus remains on preserving quality of life. (4) Anemia of chronic disease: Epogen 02285 units now. Epogen provided during prior admissions. Completed 1 gm IV Venofer during recent admission and also received an additional 1 u PRBC transfusion support. Iron profile will be updated with AM labs. History of Present Illness Reason for Consultation: KEAGAN, hyperkalemia Requesting Physician: Shirley Gregory MD Attending Physician: Shirley Gregory MD History of Present Illness Mr. Usman Hilton is a chronically ill 81 year-old male with advanced chronic kidney disease, chronic pain with opioid dependence, COPD, HFpEF, CAD, AAA, anemia, and HTN with multiple recent admissions to [facility]. I know Usman from consultation provided during prior hospitalizations. He was recently admitted with hyperkalemia, anemia, and HFpEF. He was also evaluated in the ER at [facility] for hyperkalemia but left AMA. Hyperkalemia has been managed with Veltassa at home. Baseline creatinine has been 2.5-2.9 mg/dL. Proteinuria A3. 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 Usman presented to the ER yesterday with mental status changes. He was being treated with a course of Doxycycline as an outpatient for possible pneumonia. He had developed some looose stools/diarrhea with the antibiotic. Evaluation in the ER is notable for LLL infiltrate. CT abdomen demonstrating evidence of colitis. Treatment with Zosyn and azithromycin provided. PO vancomycin and metronidazole pending C diff testing. Serum creatinine 4.12 mg/dL on admission increased to 4.46 mg/dL. Potassium 5.8 --> 5.5 mEq/L. HCO3 20. Usman reaffirmed that he would refuse dialysis if indicated. His goals of care, similar to prior admissions are palliative, and he told me that he hopes to be discharged home by tomorrow. During my conversation with Usman, he told me that he was not sure why he was admitted. He denied any complaints or concerns. He did not recall coming to the hospital yesterday. Allergies Allergy/AdvReac Type Severity Reaction Status Date / Time cefuroxime Allergy Intermediate rash Verified 11/27/21 16:43 lisinopril Allergy Mild itching Verified 11/27/21 16:43 Home Medications Medication Instructions Recorded Confirmed Type aspirin 81 mg tablet,delayed 81 mg PO QAM 05/06/19 11/27/21 History release multivitamin (Daily Multi-Vitamin) 1 tab PO DAILY 05/28/21 11/27/21 History albuterol sulfate 90 mcg/actuation 2 inh INHALATION Q6H PRN #8.5 g 09/17/21 11/27/21 Rx aerosol inhaler ferrous sulfate 325 mg (65 mg 325 mg PO DAILY #30 tab 09/17/21 11/27/21 Rx iron) tablet,delayed release fluticasone fur. 200 mcg-umeclid 1 inh INHALATION DAILY #60 ea 09/17/21 11/27/21 Rx 62.5 mcg-vilant 25 mcg inhalat.powder (Trelegy Ellipta) mirtazapine 30 mg tablet 30 mg PO QPM #30 tab 09/17/21 11/27/21 Rx nitroglycerin 0.4 mg sublingual 0.4 mg SUBLINGUAL DIRECTED PRN 09/17/21 11/27/21 Rx tablet #25 tab omeprazole 20 mg capsule,delayed 20 mg PO DAILY #30 cap 09/17/21 11/27/21 Rx release tamsulosin 0.4 mg capsule 0.4 mg PO QPM #30 cap 09/17/21 11/27/21 Rx venlafaxine 37.5 mg 37.5 mg PO DAILY 30 Days #30 cap 09/17/21 11/27/21 Rx capsule,extended release 24 hr bumetanide 1 mg tablet 1 mg PO BID #60 tab 09/29/21 11/27/21 Rx diltiazem HCl 120 mg 120 mg PO DAILY #90 cap 10/26/21 11/27/21 Rx capsule,extended release 24 hr hydrochlorothiazide 25 mg tablet 25 mg PO DAILY #90 tab 10/26/21 11/27/21 Rx ondansetron HCl 4 mg tablet 4 mg PO Q6H PRN #30 tab 11/12/21 11/27/21 Rx amlodipine 5 mg tablet 5 mg PO DAILY 11/18/21 11/27/21 History atorvastatin 40 mg tablet 40 mg PO DAILY 11/18/21 11/27/21 History doxycycline hyclate 100 mg capsule 100 mg PO BID 10 Days #20 cap 11/18/21 11/27/21 Rx primidone 50 mg tablet 50 mg PO BID 11/18/21 11/27/21 History hydrocodone 10 mg-acetaminophen 2 tab PO Q6H PRN #240 tab MDD 8 11/20/21 11/27/21 Rx 325 mg tablet tabs lorazepam 0.5 mg tablet 0.5 mg PO TID PRN #90 tab 11/20/21 11/27/21 Rx Veltassa 8.4 g PO DAILY 11/27/21 11/27/21 History Patient History Medical History AAA (abdominal aortic aneurysm) Acute hypoxemic respiratory failure Anemia of chronic disease Anxiety Bilateral pleural effusion CAD (coronary artery disease) PTCA with stent of RCA 1994 Chronic kidney disease, stage 4 (severe) Chronic pain Chronic renal insufficiency 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 exacerbation Essential tremor GERD (gastroesophageal reflux disease) Hyperlipidemia LDL goal <70 Hypertension Lower urinary tract symptoms (LUTS) Multiple rib fractures Opioid dependence treated with opiates for chronic low back pain for 10+ years Septal myocardial infarction SOB (shortness of breath) Tobacco abuse counseling Vitamin B12 deficiency Surgical History H/O heart artery stent (~1994) Family History Denies family history of Ovarian cancer Prostate cancer Myocardial infarction Breast cancer Colorectal cancer Social History (Reviewed 11/28/21 @ 13:26 by MACHELLE Hines Smoking Status: Unknown if ever smoked Tobacco Type: Cigarettes Cigarettes Per Day: 10; Smoking End Date: unknown; Second Hand Exposure: No; Do You Dip or Chew Tobacco: No; Tobacco Cessation Education Requested by Patient: No Hx Alcohol Use: No Hx Substance Use: No Preferred Language: Bengali Communication Ability: Effective Visual Impairment: No Limitations Hearing Ability: Normal [employer] Required: No Beliefs That Will Affect Care: None marital status: Current Living Situation: Alone Current Living Situation Comment: Alone at home in apartment after of in March current occupational status: 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 many Children do You have: 2 Other Information That Helps Us Care for You: No Feels Safe at Home: Yes Safety Concerns: Feels Safe At This Time Childhood Exposure to Second-Hand Smoke: Yes Dental Care, Regularly: No Physical Activity Frequency: Does not Exercise Seatbelt Use: always Sunscreen Use: No (doesn't really go outside ) Assistive Devices: Oxygen - Continuous and Walker Review of Systems Review of Systems: All systems reviewed & are unremarkable except as noted in HPI & below Physical Exam Constitutional: + cachectic and + frail appearing; no acute distress Eyes: + anicteric sclerae; no corneal abnormality ENMT: Mouth: no oral mucosal abnormality and oral mucous membranes not dry Neck: normal visual inspection and trachea midline Respiratory: normal respiratory effort Auscultation: lungs clear to auscult ation bilaterally Cardiovascular: Rate/Rhythm: regular rate Heart Sounds: normal S1 and normal S2 Extremities: no edema Musculoskeletal: Extremities: no cyanosis and no clubbing Skin: + turgor decreased; no lesions Neurologic: Motor/Sensory: no tremor and no asterixis Psychiatric: Orientation: alert and oriented x 3 Results & Data ([facility]) Vital Signs (Past 12 Hours) Vital Signs Temp Pulse Pulse Resp BP Pulse Ox Pulse Ox 11/28/21 11:10 36.5 C 93 H 17 164/69 H 100 11/28/21 07:51 92 H 11/28/21 07:47 98 11/28/21 06:36 36.7 C 90 16 141/64 H 98 11/28/21 04:19 36.7 C 87 16 131/65 98 Laboratory Results Laboratory Results - last 24 hr 11/27/21 11/27/21 11/27/21 13:43 13:43 13:43 WBC 17.05 H RBC 2.79 L Hgb 8.9 L Hct 28.4 L MCV 101.8 H MCH 31.9 MCHC 31.3 L RDW Std Deviation 61.5 H RDW Coeff of Lucas 16.6 H Plt Count 503 H MPV 9.9 Immature Gran % (Auto) 0.4 Neut % (Auto) 86.2 Lymph % (Auto) 6.2 Turner % (Auto) 5.5 Eos % (Auto) 1.6 Baso % (Auto) 0.1 Neut # (Auto) 14.70 H Lymph # (Auto) 1.06 L Turner # (Auto) 0.94 H Eos # (Auto) 0.27 Baso # (Auto) 0.02 Immature Gran # (Auto) 0.06 H RBC Morphology PT 10.0 INR 1.0 APTT 28.9 PTT Ratio 1.1 Sodium 135 L Potassium TNP Chloride 102 Carbon Dioxide 21 Anion Gap 12 H BUN 120 H Creatinine 4.12 H Est Cr Clr Drug Dosing 10.5 Est GFR ( Amer) 14.9 Est GFR (Non-Af Amer) 12.9 BUN/Creatinine Ratio 29.1 H Glucose 106 H Lactate Calcium 8.4 L Phosphorus 7.2 H Magnesium 1.4 L Total Bilirubin 0.3 AST TNP ALT 11 Alkaline Phosphatase 61 Total Creatine Kinase 27 L Troponin I < 0.03 Total Protein 6.7 Albumin 3.2 L Globulin 3.5 Albumin/Globulin Ratio 0.9 Procalcitonin Urine Color Urine Appearance Urine pH Ur Specific [place] Urine Protein Urine Glucose (UA) Urine Ketones Urine Blood Urine Nitrite Urine Bilirubin Urine Urobilinogen Ur Leukocyte Esterase Urine WBC (Auto) Urine RBC (Auto) U Hyaline Cast (Auto) U Epithel Cells (Auto) Urine Bacteria (Auto) Nasal Screen MRSA (PCR) SARS-CoV-2, RNA, NAAT 11/27/21 11/27/21 11/27/21 13:43 14:53 15:00 WBC RBC Hgb Hct MCV MCH MCHC RDW Std Deviation RDW Coeff of Lucas Plt Count MPV Immature Gran % (Auto) Neut % (Auto) Lymph % (Auto) Turner % (Auto) Eos % (Auto) Baso % (Auto) Neut # (Auto) Lymph # (Auto) Turner # (Auto) Eos # (Auto) Baso # (Auto) Immature Gran # (Auto) RBC Morphology PT INR APTT PTT Ratio Sodium Potassium Chloride Carbon Dioxide Anion Gap BUN Creatinine Est Cr Clr Drug Dosing Est GFR ( Amer) Est GFR (Non-Af Amer) BUN/Creatinine Ratio Glucose Lactate 0.2 L Calcium Phosphorus Magnesium Total Bilirubin AST ALT Alkaline Phosphatase Total Creatine Kinase Troponin I Total Protein Albumin Globulin Albumin/Globulin Ratio Procalcitonin 0.44 Urine Color Urine Appearance Urine pH Ur Specific [place] Urine Protein Urine Glucose (UA) Urine Ketones Urine Blood Urine Nitrite Urine Bilirubin Urine Urobilinogen Ur Leukocyte Esterase Urine WBC (Auto) Urine RBC (Auto) U Hyaline Cast (Auto) U Epithel Cells (Auto) Urine Bacteria (Auto) Nasal Screen MRSA (PCR) SARS-CoV-2, RNA, NAAT NEGATIVE 11/27/21 11/27/21 11/27/21 16:21 17:05 23:20 WBC RBC Hgb Hct MCV MCH MCHC RDW Std Deviation RDW Coeff of Lucas Plt Count MPV Immature Gran % (Auto) Neut % (Auto) Lymph % (Auto) Turner % (Auto) Eos % (Auto) Baso % (Auto) Neut # (Auto) Lymph # (Auto) Turner # (Auto) Eos # (Auto) Baso # (Auto) Immature Gran # (Auto) RBC Morphology PT INR APTT PTT Ratio Sodium Potassium 5.8 H Chloride Carbon Dioxide Anion Gap BUN Creatinine Est Cr Clr Drug Dosing Est GFR ( Amer) Est GFR (Non-Af Amer) BUN/Creatinine Ratio Glucose Lactate Calcium Phosphorus Magnesium Total Bilirubin AST 8 L ALT Alkaline Phosphatase Total Creatine Kinase Troponin I Total Protein Albumin Globulin Albumin/Globulin Ratio Procalcitonin Urine Color Yellow Urine Appearance Clear Urine pH 5.0 Ur Specific [place] 1.015 Urine Protein 2+ H Urine Glucose (UA) Negative Urine Ketones Negative Urine Blood Negative Urine Nitrite Negative Urine Bilirubin Negative Urine Urobilinogen Negative Ur Leukocyte Esterase Negative Urine WBC (Auto) 1-5 Urine RBC (Auto) 5-10 H U Hyaline Cast (Auto) 0 U Epithel Cells (Auto) 10-20 H Urine Bacteria (Auto) Negative Nasal Screen MRSA (PCR) Negative SARS-CoV-2, RNA, NAAT 11/28/21 11/28/21 06:51 06:51 WBC 9.77 RBC 2.29 L Hgb 7.2 L Hct 22.9 L MCV 100.0 MCH 31.4 MCHC 31.4 L RDW Std Deviation 60.1 H RDW Coeff of Lucas 16.4 H Plt Count 430 H MPV 9.9 Immature Gran % (Auto) 0.1 Neut % (Auto) 95.4 Lymph % (Auto) 3.8 Turner % (Auto) 0.7 Eos % (Auto) 0.0 Baso % (Auto) 0.0 Neut # (Auto) 9.32 H Lymph # (Auto) 0.37 L Turner # (Auto) 0.07 L Eos # (Auto) 0.00 Baso # (Auto) 0.00 Immature Gran # (Auto) 0.01 RBC Morphology Unremarkable PT INR APTT PTT Ratio Sodium 132 L Potassium 5.5 H Chloride 101 Carbon Dioxide 20 L Anion Gap 11 BUN 121 H Creatinine 4.46 H D Est Cr Clr Drug Dosing 9.6 Est GFR ( Amer) 13.5 Est GFR (Non-Af Amer) 11.7 BUN/Creatinine Ratio 27.1 H Glucose 125 H Lactate Calcium 7.9 L Phosphorus Magnesium 1.8 Total Bilirubin 0.2 AST 7 L ALT 9 Alkaline Phosphatase 48 Total Creatine Kinase Troponin I Total Protein 6.2 Albumin 2.9 L Globulin 3.3 Albumin/Globulin Ratio 0.9 Procalcitonin Urine Color Urine Appearance Urine pH Ur Specific [place] Urine Protein Urine Glucose (UA) Urine Ketones Urine Blood Urine Nitrite Urine Bilirubin Urine Urobilinogen Ur Leukocyte Esterase Urine WBC (Auto) Urine RBC (Auto) U Hyaline Cast (Auto) U Epithel Cells (Auto) Urine Bacteria (Auto) Nasal Screen MRSA (PCR) SARS-CoV-2, RNA, NAAT PG Care Time/CCT Total # of Minutes Spent Total Time Spent with Patient: Total time spent is greater than 50% in coordination of care (as documented) at patient's floor/unit and/or counseling patient: Coding Level of Care Code 46449 Inpt Consult Level 4 Diagnoses KEAGAN (acute kidney injury) N17.9 Hyperkalemia E87.5 Chronic kidney disease, stage 4 (severe) N18.4 Anemia of chronic disease D63.8
[2021-11-28] MEDS ORDERED: EPOETIN ALFA 20,000 UNITS/ML VIAL SQ ONE (14:00)
[2021-11-28] MEDS: AZITHROMYCIN 250 MG TAB PO SCH (18:14)
[2021-11-28 18:46] LABS: BUN Creatinine Ratio 29.1 (10-20); Calcium 8.3 mg/dl (8.5-10.1); Creatinine Clr Calc Pharmacy 9.9 ml/min; Est GFR (African American) 13.9 ml/min; Potassium 4.6 mmol/L (3.5-5.1)
[2021-11-28] MEDS: TAMSULOSIN HCL 0.4 MG CAP PO SCH (20:13)
[2021-11-28] MEDS: MIRTAZAPINE TAB 15 MG TAB PO SCH (20:13)
[2021-11-28] MEDS: PRIMIDONE 50 MG TAB PO SCH (20:14)
--- NOTE | 2021-11-28 20:30 | Communication Note ---
Date of Service: November 28, 2021 Informed by patient's nurse that the patient is feeling "sick to his stomach" since being started on 4 abx (although Flagyl was recently discontinued). Patient is having formed stools - suspicion for c. diff extremely low. Additionally MRSA nares negative. Will thus discontinue PO Vancomycin. Continue Zosyn and Zithromax for PNA treatment. Added Lactobacillus and PRN Zofran for nausea (QTc not prolonged).
[2021-11-28] MEDS: ONDANSETRON INJ 2 MG/ML 2 ML VIAL IV PRN (20:43)
[2021-11-28] MEDS: ADVANCED PROBIOTIC 1250 MG CAPSULE PO SCH (21:10)
[2021-11-28] MEDS ORDERED: HYDROCODONE/ACETAMOPHEN 5/325MG TAB PO STA (22:17)
[2021-11-29] MEDS: HYDROcodone/ACETAMINOPHEN 10/325 TAB PO PRN ×3 (06:06→17:38)
[2021-11-29 07:09] LABS: Hematocrit (blood only) 21.6 % (42-52); Mean Corpuscular Hemoglobin 31.7 pg (25-34); Mean Corpuscular Hgb Conc 32.4 g/dL (32-36); Mean Corpuscular Volume 97.7 fL (80-100); Mean Platelet Volume 9.4 fL (7.4-10.4); Platelet Count 445 K/uL (130-400); RDW Coefficient of Variation 16.1 % (11.5-14.5); RDW Standard Deviation 57.8 fL (36.4-46.3); Red Blood Count 2.21 M/uL (4.7-6.1); White Blood Count 14.52 K/uL (4.8-10.8)
[2021-11-29 07:44] LABS: Anion Gap 8 (3-11); BUN Creatinine Ratio 28.9 (10-20); Blood Urea Nitrogen 115 mg/dl (6-23); Carbon Dioxide 27 mmol/L (21-32); Chloride 97 mmol/L (98-107); Creatinine Clr Calc Pharmacy 11.7 ml/min; Est GFR (African American) 15.5 ml/min; Est GFR (Non-African American) 13.4 ml/min; Glucose 105 mg/dl (70-99(Fasting)); Potassium 5.1 mmol/L (3.5-5.1); Sodium 132 mmol/L (136-145)
[2021-11-29 07:54] LABS: Ferritin 771.1 ng/ml (8-388)
[2021-11-29 07:56] LABS: Albumin Level 2.8 gm/dl (3.4-5.0); Iron 117 mcg/dl (35-175); Phosphorus 5.1 mg/dl (2.5-4.9); Unsaturated Iron Binding Cap < 55 mcg/dl (155-355)
[2021-11-29] MEDS: VENLAFAXINE HCL XR 37.5 MG CAPXR PO SCH (08:00)
[2021-11-29] MEDS: ADVANCED PROBIOTIC 1250 MG CAPSULE PO SCH (08:00)
[2021-11-29] MEDS: HEPARIN SOD 5,000 UNIT/0.5 ML VIAL SQ SCH ×2 (08:00→20:38)
[2021-11-29] MEDS: PRIMIDONE 50 MG TAB PO SCH ×2 (08:00→20:39)
[2021-11-29] MEDS: METOPROLOL SUCC 50MG EXT REL TAB PO SCH (08:00)
[2021-11-29] MEDS: dilTIAZem HCL 120 MG CAPCR PO SCH (08:01)
[2021-11-29] MEDS: FERROUS SULFATE 325 MG TAB PO SCH (08:01)
[2021-11-29] MEDS: PANTOprazole 40 MG TAB PO SCH (08:01)
[2021-11-29] MEDS: ATORVASTATIN 40 MG TAB PO SCH (08:01)
[2021-11-29] MEDS: ASPIRIN 81 MG ECTAB PO SCH (08:01)
[2021-11-29] MEDS: FLUTICASONE FUROATE 200MCG 14 PUFFS/INHALER INH SCH (08:01)
[2021-11-29] MEDS: UMECLIDINIUM/VILANTEROL 62.5/25MCG 7 PUFFS/INHALER INH SCH (08:01)
--- NOTE | 2021-11-29 09:56 | Hospitalist Progress Note ---
Date of Service November 29, 2021 Assessment & Plan (1) Sepsis: Plan: Suspected source pneumonia and colitis Sepsis now resolved after treatment with IVFs, abx Leukocytosis recurred today as he received a dose of IV Solu Medrol in ER x 1 which has not been continued Continue IV Zosyn + azithromycin 250mg po daily for PNA MRSA nasal swab is negative so no need for MRSA coverage initially started empirically on po Vancomycin and IV Flagyl due to diarrhea after taking abx as outpt, but has only had one formed stool since admission so C. diff testing not performed -dcd metronidazole and po Vanco BPs stable, no fevers or tachycardia (2) Acute encephalopathy: Plan: came in obtunded, secondary to renal failure, opioid use, and sepsis was given Narcan and had immediate improvement then treated for sepsis as above now resolved (3) Right lower lobe pneumonia: Plan: Progression of pneumonia on CXR while on doxycycline as an outpt ?aspiration given location - SLT assessment appreciated-no overt aspiration at bedside but if he was sedated from opioids, could have aspirated then continue Zosyn + azithromycin as above will need f/u CXR to ensure resolution in 4-6 weeks (4) Colitis: Plan: Noted on CT - no abd tenderness as above, initially txd empirically for C. diff but diarrhea has resolved COVID negative dcd po Vanco and IV Flagyl continue Zosyn (5) Acute on chronic renal failure: Plan: Appeared dry on exam in setting of current infection and diuretic use on admission. [employer] worsened on day#2 to 4.46 with worsening hyponatremia, metabolic acidosis and hyperkalemia, however now improving with bicarb gtt x 1L Hyperkalemia resolved, met acidosis resolved, hyponatremia still present but improving Baseline creatinine 2.6 No evidence for obstruction on CT A/P UA with some RBCs likely from Hdz trauma -no further IVFs now, is yue po -continue home Veltassa once daily -Continue holding home bumetanide and HCTZ -Appreciate nephrology consultation -Follow BMP -Follow urine output with continued Hdz catheter for no, consider dc-ing Hdz tomorrow if renal failure continues to improve (6) Hyperkalemia: Plan: As above, now improved with Valtessa and NaHCO3 gtt -continue daily Veltassa Follow BMP -renal diet (7) Chronic pain: Plan: Initially held opiates in setting of suspected overdose with bradypnea as above Now in significant pain and encephalopathy completely resolved continue home hydrocodone 10 mg 2 tablets p.o. every 6 hours as needed (8) Hypomagnesemia: Plan: Replaced and resolved (9) Chronic respiratory failure with hypoxia: Plan: Baseline 7LPM O2 - actually maintaining O2 sats with less O2 currently at 2-3 L Wean O2 to aim O2 sats > 90% (10) GERD (gastroesophageal reflux disease): Plan: continue PPI (11) Essential tremor: Plan: continue primidone (12) Bradypnea: Plan: Occasional agonal breathing in the ER on initial presentation. Naloxone 0.4mg IV given to good effect however caused patient excessive pain Now completely resolved Okay to restart chronic opioids (13) Severe protein-calorie malnutrition: Plan: BMI 15.2 Needs nutrition consultation (14) Hyponatremia: Plan: As above, sodium low but stable now at 132, secondary to acute kidney injury Gave volume replacement as above Follow BMP (15) Anemia: Plan: Hemoglobin down 7.0 Has been treated with Epogen and IV iron in the past iron studies drawn and calculated Transferrin sat is 68% Anemia of chronic disease -consent obtained for PRBC transfusion--> will transfuse if hgb<7.0 or if becomes symptomatic (not currently symptomatic) -Follow CBC (16) AAA (abdominal aortic aneurysm): Plan: Noted on CT abdomen/pelvis 4.9 cm, increased from 4.4cm previously, also with bilateral iliac artery aneurysms Follow as an outpatient with Vascular SUrgery (17) Opioid dependence: Plan: as above (18) CAD (coronary artery disease): Plan: h/o stent to RCA 1995 continue ASA, statin (19) Hypertension: Plan: BPs better controlled today since restarting home meds he has amlodipine and diltiazem listed on home med rec but dc summary from 09/2021 says to stop amlodipine and add dilt due to SVT/?Afib also supposed to be on Toprol XL 100mg daily but this hasn't been filled recently-restarted 50mg po daily for now and titrate up as able to 100mg -coninue diltiazem 120mg po daily -continue to hold home bumex and HCTZ (20) Depression: Plan: mood is irritable continue Effexor, Mirtazapine Plan: VTE Prophylaxis - heparin 5000 units BID Disposition - continued stay PCU COnditional CODE-no ventilation or intubation Consult PT/OT Admission and Anticipated Discharge Date Admission Date: November 27, 2021 Subjective Lightly sleeping when I came to see him but awoke easily. Asking for more pain medicine. Says the pain is never gone. Denies CP, SOB, cough, no abd pain. Had one solid BM yesterday, none since. Discussed case with Nephrology Consented for PRBCs in case for tomorrow if hgb<7.0 Tele with NSR, rates in 60s Review of Systems Review of Systems: All systems reviewed & are unremarkable except as noted in HPI & below Physical Exam Constitutional: + cachectic and + frail appearing; no acute distress Eyes: + anicteric sclerae ENMT: external ear and nose normal, oropharynx normal Neck: trachea midline, no thyromegaly Respiratory: normal respiratory effort; no cough Auscultation: + rhonchi (Right base); no wheezes Cardiovascular: RRR, no murmur, no edema Chest (Breasts): Chest: normal inspection of chest Gastrointestinal (Abdomen): normal bowel sounds, soft, nontender, no hepatosplenomegaly Musculoskeletal: Extremities: extremities normal to inspection; no cyanosis and no clubbing Skin: no rashes, warm and dry Neurologic: moves all extremities and awake; no focal motor deficits Psychiatric: A+Ox3, euthymic affect Lymphatic: no lymphedema Results & Data Results & Data ([facility]) Vital Signs (Past 12 Hours) Vital Signs Temp Pulse Pulse Pulse Resp BP BP 11/29/21 07:35 36.6 C 89 20 146/60 H 11/29/21 04:12 36.3 C L 91 H 18 166/80 H 11/28/21 23:43 36.4 C L 80 18 136/65 11/28/21 22:19 80 Pulse Ox 11/29/21 07:35 98 11/29/21 04:12 99 11/28/21 23:43 100 11/28/21 22:19 Laboratory Results 11/29/21 11/29/21 11/29/21 Range/Units 06:32 06:32 06:32 WBC 14.52 H (4.8-10.8) K/uL RBC 2.21 L (4.7-6.1) M/uL Hgb 7.0 L (14.0-18.0) g/dL Hct 21.6 L (42-52) % MCV 97.7 (80-100) fL MCH 31.7 (25-34) pg MCHC 32.4 (32-36) g/dL RDW Std Deviation 57.8 H (36.4-46.3) fL RDW Coeff of Lucas 16.1 H (11.5-14.5) % Plt Count 445 H (130-400) K/uL MPV 9.4 (7.4-10.4) fL Sodium 132 L (136-145) mmol/L Potassium 5.1 (3.5-5.1) mmol/L Chloride 97 L (98-107) mmol/L Carbon Dioxide 27 (21-32) mmol/L Anion Gap 8 (3-11) BUN 115 H (6-23) mg/dl Creatinine 3.98 H D (0.6-1.4) mg/dl Est Cr Clr Drug Dosing 11.7 ml/min Est GFR ( Amer) 15.5 ml/min Est GFR (Non-Af Amer) 13.4 ml/min BUN/Creatinine Ratio 28.9 H (10-20) Glucose 105 H (70-99(Fasting)) mg/dl Calcium 8.0 L (8.5-10.1) mg/dl Phosphorus 5.1 H (2.5-4.9) mg/dl Iron Cancelled 117 (35-175) mcg/dl TIBC Cancelled TNP Unsaturated IBC Cancelled < 55 L (155-355) mcg/dl Transferrin % Sat Cancelled TNP Ferritin 771.1 H (8-388) ng/ml Albumin 2.8 L (3.4-5.0) gm/dl Stl C. diff Tox B Gene 11/28/21 11/28/21 Range/Units 17:58 12:18 WBC (4.8-10.8) K/uL RBC (4.7-6.1) M/uL Hgb (14.0-18.0) g/dL Hct (42-52) % MCV (80-100) fL MCH (25-34) pg MCHC (32-36) g/dL RDW Std Deviation (36.4-46.3) fL RDW Coeff of Lucas (11.5-14.5) % Plt Count (130-400) K/uL MPV (7.4-10.4) fL Sodium 131 L (136-145) mmol/L Potassium 4.6 (3.5-5.1) mmol/L Chloride 99 (98-107) mmol/L Carbon Dioxide 20 L (21-32) mmol/L Anion Gap 12 H (3-11) BUN 127 H (6-23) mg/dl Creatinine 4.36 H (0.6-1.4) mg/dl Est Cr Clr Drug Dosing 9.9 ml/min Est GFR ( Amer) 13.9 ml/min Est GFR (Non-Af Amer) 12.0 ml/min BUN/Creatinine Ratio 29.1 H (10-20) Glucose 132 H (70-99(Fasting)) mg/dl Calcium 8.3 L (8.5-10.1) mg/dl Phosphorus (2.5-4.9) mg/dl Iron (35-175) mcg/dl TIBC Unsaturated IBC (155-355) mcg/dl Transferrin % Sat Ferritin (8-388) ng/ml Albumin (3.4-5.0) gm/dl Stl C. diff Tox B Gene TNP PG Care Time/CCT Total # of Minutes Spent Total Time Spent with Patient: Total time spent is greater than 50% in coordination of care (as documented) at patient's floor/unit and/or counseling patient: Coding Level of Care Code 60208 Subseq Hosp Care Lvl 3 Diagnoses Sepsis A41.9 Acute encephalopathy G93.40 Right lower lobe pneumonia J18.9 Pneumonia type: due to unspecified organism Colitis K52.9 Acute on chronic renal failure N17.9; N18.9 Acute renal failure type: unspecified Chronic kidney disease stage: unspecified stage Hyperkalemia E87.5 Bradypnea R06.89 Chronic pain G89.4 Chronic pain type: chronic pain syndrome Hypomagnesemia E83.42 Chronic respiratory failure with hypoxia J96.11 GERD (gastroesophageal reflux disease) K21.9 Essential tremor G25.0 Severe protein-calorie malnutrition E43 Hyponatremia E87.1 Anemia D64.9 AAA (abdominal aortic aneurysm) I71.4 Opioid dependence F11.20 CAD (coronary artery disease) I25.10 Hypertension I10 Depression F32.A (1) Chronic pain Chronic pain type: chronic pain syndrome Qualified Code(s): G89.4 - Chronic pain syndrome (2) Right lower lobe pneumonia Pneumonia type: due to unspecified organism Qualified Code(s): J18.9 - Pneumonia, unspecified organism (3) Acute on chronic renal failure Acute renal failure type: unspecified Chronic kidney disease stage: unspecified stage Qualified Code(s): N17.9 - Acute kidney failure, unspecified; N18.9 - Chronic kidney disease, unspecified
[2021-11-29] MEDS: PIPERACILLIN/TAZOBACTAM 3.375 GM in DEXTROSE 5% 100 ML IV SCH ×2 (11:53)
[2021-11-29] MEDS: PATIROMER CALCIUM SORBITEX 8.4 GM PACK PO SCH (11:53)
--- NOTE | 2021-11-29 12:43 | Nephrology Progress Note ---
Date of Service November 29, 2021 Assessment & Plan (1) KEAGAN (acute kidney injury): Plan: Non-oliguric. Intravascularly volume improved. IVF stopped. Creatinine stable. Metabolic profile otherwise acceptable. CT demonstrated kidneys to be unobstructed. Noted calcifications without significant DEJON based on duplex performed during recent hospitalization. Document strict I/O's. Diuretics held. Medications appropriate for kidney dysfunction. (2) Hyperkalemia: Plan: Patiromer 8.4 grams daily. Low potassium diet. Repeat serum potassium tomorrow AM. (3) Chronic kidney disease, stage 4 (severe): Plan: Clinical history consistent with sFSGS. Dialysis will not be considered part of the care plan based on discussions re garding goals of care. Due to advanced illness and frailty, unlikely to tolerate. Overall, prognosis is guarded. We have discussed this during prior admissions. Usman expressed understanding. His focus remains on preserving quality of life. (4) Anemia of chronic disease: Plan: Epogen 45332 units 11/28. Completed 1 gm IV Venofer during recent admission and also received an additional 1 u PRBC transfusion support. Iron profile continues to demonstrate NEHEMIAH. Additional 200 mg IV venofer provided today. Admission and Anticipated Discharge Date Admission Date: November 27, 2021 Subjective No acute events overnight. Usman continues to feel well. No complaints or concerns reported. I discussed the plan of care with Dr. Gregory. I also updated Usman' daughter, Allison, at his request. Review of Systems Review of Systems: All systems reviewed & are unremarkable except as noted in HPI & below Physical Exam Constitutional: + cachectic and + frail appearing; no acute distress Eyes: + anicteric sclerae; no corneal abnormality ENMT: Mouth: no oral mucosal abnormality and oral mucous membranes not dry Neck: normal visual inspection and trachea midline Respiratory: normal respiratory effort Auscultation: lungs clear to auscultation bilaterally Cardiovascular: Rate/Rhythm: regular rate Heart Sounds: normal S1 and normal S2 Extremities: no edema Musculoskeletal: Extremities: no cyanosis and no clubbing Skin: + turgor decreased; no lesions Neurologic: Motor/Sensory: no tremor and no asterixis Psychiatric: Orientation: alert and oriented x 3 Results & Data ([facility]) Vital Signs (Past 12 Hours) Vital Signs Temp Pulse Pulse Resp BP BP Pulse Ox 11/29/21 07:35 36.6 C 89 20 146/60 H 98 11/29/21 04:12 36.3 C L 91 H 18 166/80 H 99 PG Care Time/CCT Total # of Minutes Spent Total Time Spent with Patient: Total time spent is greater than 50% in coordination of care (as documented) at patient's floor/unit and/or counseling patient: Coding Level of Care Code 33118 Subseq Hosp Care Lvl 3 Diagnoses KEAGAN (acute kidney injury) N17.9 Hyperkalemia E87.5 Chronic kidney disease, stage 4 (severe) N18.4 Anemia of chronic disease D63.8
[2021-11-29] MEDS ORDERED: IRON SUCROSE 200 MG in 0.9 % SODIUM CHLORIDE 100 ML IV ONE (13:00)
[2021-11-29] MEDS: AZITHROMYCIN 250 MG TAB PO SCH (17:38)
[2021-11-29] MEDS: MIRTAZAPINE TAB 15 MG TAB PO SCH (20:38)
[2021-11-29] MEDS: TAMSULOSIN HCL 0.4 MG CAP PO SCH (20:39)
[2021-11-30] MEDS: PIPERACILLIN/TAZOBACTAM 3.375 GM in DEXTROSE 5% 100 ML IV SCH (00:07)
[2021-11-30] MEDS: HYDROcodone/ACETAMINOPHEN 10/325 TAB PO PRN ×3 (06:00→18:29)
[2021-11-30 07:09] LABS: Basophils # (auto) 0.01 K/uL (0-0.2); Basophils % (auto) 0.1 %; Eosinophils # (auto) 0.23 K/uL (0-0.5); Eosinophils % (auto) 2.1 %; Hematocrit (blood only) 25.7 % (42-52); Hemoglobin 8.2 g/dL (14.0-18.0); Immature Granulocytes # (auto) 0.07 K/uL (0.00-0.02); Immature Granulocytes % (auto) 0.6 %; Lymphocytes # (auto) 1.86 K/uL (1.2-3.4); Mean Corpuscular Hemoglobin 31.7 pg (25-34); Mean Corpuscular Hgb Conc 31.9 g/dL (32-36); Mean Corpuscular Volume 99.2 fL (80-100); Mean Platelet Volume 9.3 fL (7.4-10.4); Monocytes # (auto) 1.16 K/uL (0.11-0.59); Monocytes % (auto) 10.6 %; Neutrophils # (auto) 7.61 K/uL (1.4-6.5); Neutrophils % (auto) 69.6 %; Platelet Count 459 K/uL (130-400); RDW Coefficient of Variation 16.1 % (11.5-14.5); RDW Standard Deviation 58.5 fL (36.4-46.3); Red Blood Count 2.59 M/uL (4.7-6.1); White Blood Count 10.94 K/uL (4.8-10.8)
[2021-11-30 07:43] LABS: BUN Creatinine Ratio 32.4 (10-20); Calcium 8.2 mg/dl (8.5-10.1); Creatinine Clr Calc Pharmacy 12.1 ml/min; Est GFR (African American) 16.1 ml/min; Est GFR (Non-African American) 13.9 ml/min; Magnesium 1.5 mg/dl (1.7-2.4); Potassium 4.8 mmol/L (3.5-5.1)
[2021-11-30] MEDS ORDERED: IRON SUCROSE 200 MG in 0.9 % SODIUM CHLORIDE 100 ML IV ONE (09:15)
[2021-11-30] MEDS: FERROUS SULFATE 325 MG TAB PO SCH (09:16)
[2021-11-30] MEDS: PRIMIDONE 50 MG TAB PO SCH ×2 (09:16→19:57)
[2021-11-30] MEDS: ATORVASTATIN 40 MG TAB PO SCH (09:16)
[2021-11-30] MEDS: dilTIAZem HCL 120 MG CAPCR PO SCH (09:16)
[2021-11-30] MEDS: ASPIRIN 81 MG ECTAB PO SCH (09:16)
[2021-11-30] MEDS: ADVANCED PROBIOTIC 1250 MG CAPSULE PO SCH (09:17)
[2021-11-30] MEDS: VENLAFAXINE HCL XR 37.5 MG CAPXR PO SCH (09:17)
[2021-11-30] MEDS: METOPROLOL SUCC 50MG EXT REL TAB PO SCH (09:17)
[2021-11-30] MEDS: FLUTICASONE FUROATE 200MCG 14 PUFFS/INHALER INH SCH (09:17)
[2021-11-30] MEDS: PANTOprazole 40 MG TAB PO SCH (09:17)
[2021-11-30] MEDS: HEPARIN SOD 5,000 UNIT/0.5 ML VIAL SQ SCH ×2 (09:17→19:58)
[2021-11-30] MEDS: UMECLIDINIUM/VILANTEROL 62.5/25MCG 7 PUFFS/INHALER INH SCH (09:17)
--- NOTE | 2021-11-30 10:19 | Nephrology Progress Note ---
Date of Service November 30, 2021 Assessment & Plan (1) KEAGAN (acute kidney injury): Plan: Non-oliguric. Intravascularly volume improved. IVF stopped. Creatinine stable. Metabolic profile otherwise acceptable. CT demonstrated kidneys to be unobstructed. Noted calcifications without significant DEJON based on duplex performed during recent hospitalization. Diuretics held. Medications appropriate for kidney dysfunction. (2) Hyperkalemia: Plan: Patiromer 8.4 grams daily. Low potassium diet. (3) Chronic kidney disease, stage 4 (severe): Plan: Clinical history consistent with sFSGS. Dialysis will not be considered part of the care plan based on discussions regarding goals of care. Due to advanced illness and frailty, unlikely to tolerate. Overall, prognosis is guarded. We have discussed this during prior admissions. Usman expressed understanding. His focus remains on preserving quality of life. Close outpatient follow up to be arranged at discharge. (4) Anemia of chronic disease: Plan: Epogen 83333 units 11/28. Completed 1 gm IV Venofer during recent admission and also received an additional 1 u PRBC transfusion support. Iron profile continues to demonstrate NEHEMIAH. Additional 200 mg IV venofer provided today. Post discharge, follow up in the nephrology clinic is encouraged to coordinate continued CHYNA therapy. Admission and Anticipated Discharge Date Admission Date: November 27, 2021 Subjective No acute events overnight. Usman continues to feel well. No complaints or concerns reported. He hopes to be discharged today. Review of Systems Review of Systems: All systems reviewed & are unremarkable except as noted in HPI & below Physical Exam Constitutional: + cachectic and + frail appearing; no acute distress Eyes: + anicteric sclerae; no corneal abnormality ENMT: Mouth: no oral mucosal abnormality and oral mucous membranes not dry Neck: normal visual inspection and trachea midline Respiratory: normal respiratory effort Auscultation: lungs clear to auscultation bilaterally Cardiovascular: Rate/Rhythm: regular rate Heart Sounds: normal S1 and normal S2 Extremities: no edema Musculoskeletal: Extremities: no cyanosis and no clubbing Skin: + turgor decreased; no lesions Neurologic: Motor/Sensory: no tremor and no asterixis Psychiatric: Orientation: alert and oriented x 3 Results & Data ([facility]) Vital Signs (Past 12 Hours) Vital Signs Temp Pulse Resp BP Pulse Ox 11/30/21 07:39 36.5 C 85 17 160/76 H 97 11/30/21 03:43 36.4 C L 81 18 177/71 H 96 11/29/21 23:22 36.7 C 84 18 153/65 H 98 Laboratory Results Laboratory Results - last 24 hr 11/30/21 11/30/21 06:18 06:18 WBC 10.94 H RBC 2.59 L Hgb 8.2 L Hct 25.7 L MCV 99.2 MCH 31.7 MCHC 31.9 L RDW Std Deviation 58.5 H RDW Coeff of Lucas 16.1 H Plt Count 459 H MPV 9.3 Immature Gran % (Auto) 0.6 Neut % (Auto) 69.6 Lymph % (Auto) 17.0 [place] % (Auto) 10.6 Eos % (Auto) 2.1 Baso % (Auto) 0.1 Neut # (Auto) 7.61 H Lymph # (Auto) 1.86 [place] # (Auto) 1.16 H Eos # (Auto) 0.23 Baso # (Auto) 0.01 Immature Gran # (Auto) 0.07 H Sodium 135 L Potassium 4.8 Chloride 100 Carbon Dioxide 28 Anion Gap 7 BUN 125 H Creatinine 3.86 H Est Cr Clr Drug Dosing 12.1 Est GFR ( Amer) 16.1 Est GFR (Non-Af Amer) 13.9 BUN/Creatinine Ratio 32.4 H Glucose 86 Calcium 8.2 L Magnesium 1.5 L PG Care Time/CCT Total # of Minutes Spent Total Time Spent with Patient: Total time spent is greater than 50% in coordination of care (as documented) at patient's floor/unit and/or counseling patient: Coding Level of Care Code 80171 Subseq Hosp Care Lvl 3 Diagnoses KEAGAN (acute kidney injury) N17.9 Hyperkalemia E87.5 Chronic kidney disease, stage 4 (severe) N18.4 Anemia of chronic disease D63.8
[2021-11-30] MEDS: MAGNESIUM SULFATE / D5W 1 GM/100 ML BAG IV SCH ×2 (11:19→12:44)
[2021-11-30] MEDS: PATIROMER CALCIUM SORBITEX 8.4 GM PACK PO SCH (11:19)
[2021-11-30] MEDS ORDERED: PIPERACILLIN/TAZOBACTAM 3.375 GM in DEXTROSE 5% 100 ML IV SCH (12:00)
--- NOTE | 2021-11-30 15:01 | Hospitalist Progress Note ---
Date of Service November 30, 2021 Assessment & Plan (1) Sepsis: Plan: Suspected source pneumonia and colitis Sepsis now resolved after treatment with IVFs, abx Leukocytosis recurred after that as he received a dose of IV Solu Medrol in ER x 1 which has not been continued WBC count now back to normal Continue abx but dc IV Zosyn and convert to po Augmentin, continue azithromycin 250mg po daily for PNA MRSA nasal swab is negative so no need for MRSA coverage initially started empirically on po Vancomycin and IV Flagyl due to diarrhea after taking abx as outpt, but has only had one formed stool since admission so C. diff testing not performed and abx stopped However now with recurrent diarrhea--> check C. diff BPs stable, no fevers or tachycardia (2) Acute encephalopathy: Plan: came in obtunded, secondary to renal failure, opioid use, and sepsis was given Narcan and had immediate improvement then treated for sepsis as above now resolved (3) Right lower lobe pneumonia: Plan: Progression of pneumonia on CXR while on doxycycline as an outpt ?aspiration given location - SLT assessment appreciated-no overt aspiration at bedside but if he was sedated from opioids, could have aspirated then continue abx as above will need f/u CXR to ensure resolution in 4-6 weeks (4) Colitis: Plan: Noted on CT - no abd tenderness as above, initially txd empirically for C. diff but diarrhea had resolved, but now has recurred--> check C> diff COVID negative changed Zosyn o AUgmentin (5) Acute on chronic renal failure: Plan: Appeared dry on exam in setting of current infection and diuretic use on admission. [employer] worsened on day#2 to 4.46 with worsening hyponatremia, metabolic acidosis and hyperkalemia, however then improved with bicarb gtt x 1L Hyperkalemia resolved, met acidosis resolved, hyponatremia now resolved [employer] down to 3.8 today Baseline creatinine 2.6 No evidence for obstruction on CT A/P UA with some RBCs likely from Hdz trauma -no further IVFs now, is yue po -continue home Veltassa once daily -Continue holding home bumetanide and HCTZ -Appreciate nephrology consultation -Follow BMP -Follow urine output and dc Hdz today -will need outpt f/u with Nephro (6) Hyperkalemia: Plan: As above, nowresolved with [place] and NaHCO3 gtt -continue daily Veltassa Follow BMP -renal diet (7) Chronic pain: Plan: Initially held opiates in setting of suspected overdose with bradypnea as above Now in significant pain and encephalopathy completely resolved continue home hydrocodone 10 mg 2 tablets p.o. every 6 hours as needed (8) Hypomagnesemia: Plan: low again replace with 2 grams IV mag follow level in AM (9) Chronic respiratory failure with hypoxia: Plan: Baseline 7LPM O2 - actually maintaining O2 sats with O2 2LNC but he insists on having it higher-> at 5LNC today and POx 99% Wean O2 to aim O2 sats > 90% (10) GERD (gastroesophageal reflux disease): Plan: continue PPI (11) Essential tremor: Plan: continue primidone (12) Bradypnea: Plan: Occasional agonal breathing in the ER on initial presentation. Naloxone 0.4mg IV given to good effect however caused patient excessive pain Now completely resolved have since restarted chronic opioids daughter reports he has a friend who will now be managing his opioids and benzos to avoid overdose (13) Severe protein-calorie malnutrition: Plan: BMI 15.2 Needs nutrition consultation (14) Hyponatremia: Plan: As above, sodium now improved to 135, was secondary to acute kidney injury Gave volume replacement as above Follow BMP (15) Anemia: Plan: Hemoglobin down 7.0 and now back up to 8.2 Has been treated with Epogen and IV iron in the past iron studies drawn and calculated Transferrin sat is 68% received IV Venofer here Anemia of chronic disease -consent obtained for PRBC transfusion--> will transfuse if hgb<7.0 or if becomes symptomatic (not currently symptomatic) -Follow CBC (16) AAA (abdominal aortic aneurysm): Plan: Noted on CT abdomen/pelvis 4.9 cm, increased from 4.4cm previously, also with bilateral iliac artery aneurysms Follow as an outpatient with Vascular SUrgery (17) Opioid dependence: Plan: as above (18) CAD (coronary artery disease): Plan: h/o stent to RCA 1994 continue ASA, statin (19) Hypertension: Plan: BPs remain elevated today he has amlodipine and diltiazem listed on home med rec but dc summary from 09/2021 says to stop amlodipine and add dilt due to SVT/?Afib also supposed to be on Toprol XL 100mg daily but this hasn't been filled recently-restarted 50mg po daily for now and titrate up as able to 100mg-will do so today -continue diltiazem 120mg po daily -continue to hold home bumex and HCTZ (20) Depression: Plan: mood is irritable continue Effexor, Mirtazapine Plan: VTE Prophylaxis - heparin 5000 units BID Disposition - continued stay but downgrade to med/surg. Ordered PT/OT but he is refusing eval today. Hopeful for dc to home with home health tomorrow COnditional CODE-no ventilation or intubation Admission and Anticipated Discharge Date Admission Date: November 27, 2021 Subjective Pt irritable and doesn't feel like getting out of bed with PT, complains about having to sit up in bed for lung exam stating "I'm in the hospital to relax!" Doesn't feel ready to go home now today. Says he is having diarrhea again today-had incontinence to stool and another loose stool since then Tele with NSR, rate 80 Review of Systems Review of Systems: All systems reviewed & are unremarkable except as noted in HPI & below Physical Exam Constitutional: + cachectic and + frail appearing; no acute distress Eyes: + anicteric sclerae Neck: trachea midline, no thyromegaly Respiratory: normal respiratory effort; no cough Auscultation: + rhonchi (Right base); no wheezes Cardiovascular: RRR, no murmur, no edema Chest (Breasts): Chest: normal inspection of chest Gastrointestinal (Abdomen): normal bowel sounds, soft, nontender, no hepatosplenomegaly Musculoskeletal: Extremities: extremities normal to inspection; no cyanosis and no clubbing Skin: no rashes, warm and dry Neurologic: moves all extremities and awake; no focal motor deficits Psychiatric: Orientation: alert and oriented x 3 Affect: + irritable affect Lymphatic: no lymphedema Results & Data Results & Data ([facility]) Vital Signs (Past 12 Hours) Vital Signs Temp Pulse Resp BP Pulse Ox 11/30/21 12:16 36.6 C 86 19 174/81 H 99 11/30/21 07:39 36.5 C 85 17 160/76 H 97 11/30/21 03:43 36.4 C L 81 18 177/71 H 96 Laboratory Results Hdz with yellow urine PG Care Time/CCT Total # of Minutes Spent Total Time Spent with Patient: Total time spent is greater than 50% in coordination of care (as documented) at patient's floor/unit and/or counseling patient: Coding Level of Care Code 52943 Subseq Hosp Care Lvl 3 Diagnoses Sepsis A41.9 Acute encephalopathy G93.40 Right lower lobe pneumonia J18.9 Pneumonia type: due to unspecified organism Colitis K52.9 Acute on chronic renal failure N17.9; N18.9 Acute renal failure type: unspecified Chronic kidney disease stage: unspecified stage Hyperkalemia E87.5 Chronic pain G89.4 Chronic pain type: chronic pain syndrome Hypomagnesemia E83.42 Chronic respiratory failure with hypoxia J96.11 GERD (gastroesophageal reflux disease) K21.9 Essential tremor G25.0 Bradypnea R06.89 Severe protein-calorie malnutrition E43 Hyponatremia E87.1 Anemia D64.9 AAA (abdominal aortic aneurysm) I71.4 Opioid dependence F11.20 CAD (coronary artery disease) I25.10 Hypertension I10 Depression F32.A (1) Right lower lobe pneumonia Pneumonia type: due to unspecified organism Qualified Code(s): J18.9 - Pneumonia, unspecified organism (2) Acute on chronic renal failure Acute renal failure type: unspecified Chronic kidney disease stage: unspecifi ed stage Qualified Code(s): N17.9 - Acute kidney failure, unspecified; N18.9 - Chronic kidney disease, unspecified (3) Chronic pain Chronic pain type: chronic pain syndrome Qualified Code(s): G89.4 - Chronic pain syndrome
[2021-11-30] MEDS ORDERED: METOPROLOL SUCC 25MG EXT REL TAB PO STA (15:09)
[2021-11-30] MEDS: AMOXICILLIN/CLAVULANATE 500 MG TAB PO SCH (17:33)
[2021-11-30] MEDS: AZITHROMYCIN 250 MG TAB PO SCH (17:33)
[2021-11-30] MEDS: MIRTAZAPINE TAB 15 MG TAB PO SCH (19:56)
[2021-11-30] MEDS: TAMSULOSIN HCL 0.4 MG CAP PO SCH (19:57)
[2021-12-01] MEDS: HYDROcodone/ACETAMINOPHEN 10/325 TAB PO PRN ×3 (00:23→18:48)
[2021-12-01] MEDS ORDERED: HYDROmorphone INJ 0.5 MG/0.5 ML SYR IV STA (04:50)
[2021-12-01] MEDS ORDERED: HYDROmorphone INJ 0.5 MG/0.5 ML SYR ONE (04:59)
[2021-12-01 08:20] LABS: Basophils # (auto) 0.02 K/uL (0-0.2); Basophils % (auto) 0.2 %; Eosinophils # (auto) 0.33 K/uL (0-0.5); Eosinophils % (auto) 3.2 %; Hematocrit (blood only) 26.1 % (42-52); Hemoglobin 8.5 g/dL (14.0-18.0); Immature Granulocytes # (auto) 0.07 K/uL (0.00-0.02); Immature Granulocytes % (auto) 0.7 %; Lymphocytes # (auto) 2.26 K/uL (1.2-3.4); Lymphocytes % (auto) 21.7 %; Mean Corpuscular Hemoglobin 32.2 pg (25-34); Mean Corpuscular Hgb Conc 32.6 g/dL (32-36); Mean Corpuscular Volume 98.9 fL (80-100); Mean Platelet Volume 9.3 fL (7.4-10.4); Monocytes # (auto) 1.05 K/uL (0.11-0.59); Monocytes % (auto) 10.1 %; Neutrophils % (auto) 64.1 %; Platelet Count 471 K/uL (130-400); RDW Standard Deviation 57.6 fL (36.4-46.3); Red Blood Count 2.64 M/uL (4.7-6.1); White Blood Count 10.43 K/uL (4.8-10.8)
[2021-12-01 08:52] LABS: BUN Creatinine Ratio 34.2 (10-20); Calcium 8.3 mg/dl (8.5-10.1); Creatinine Clr Calc Pharmacy 14.7 ml/min; Est GFR (African American) 20.6 ml/min; Est GFR (Non-African American) 17.7 ml/min; Magnesium 1.7 mg/dl (1.7-2.4); Potassium 3.9 mmol/L (3.5-5.1)
[2021-12-01] MEDS: FLUTICASONE FUROATE 200MCG 14 PUFFS/INHALER INH SCH (09:15)
[2021-12-01] MEDS: VENLAFAXINE HCL XR 37.5 MG CAPXR PO SCH (09:15)
[2021-12-01] MEDS: AMOXICILLIN/CLAVULANATE 500 MG TAB PO SCH ×2 (09:15→18:13)
[2021-12-01] MEDS: ATORVASTATIN 40 MG TAB PO SCH (09:16)
[2021-12-01] MEDS: ASPIRIN 81 MG ECTAB PO SCH (09:16)
[2021-12-01] MEDS: dilTIAZem HCL 120 MG CAPCR PO SCH (09:17)
[2021-12-01] MEDS: FERROUS SULFATE 325 MG TAB PO SCH (09:17)
[2021-12-01] MEDS: ADVANCED PROBIOTIC 1250 MG CAPSULE PO SCH (09:17)
[2021-12-01] MEDS: PANTOprazole 40 MG TAB PO SCH (09:18)
[2021-12-01] MEDS: METOPROLOL SUCC 50MG EXT REL TAB PO SCH (09:18)
[2021-12-01] MEDS: UMECLIDINIUM/VILANTEROL 62.5/25MCG 7 PUFFS/INHALER INH SCH (09:19)
[2021-12-01] MEDS: PRIMIDONE 50 MG TAB PO SCH ×2 (09:19→20:38)
[2021-12-01] MEDS: HEPARIN SOD 5,000 UNIT/0.5 ML VIAL SQ SCH ×2 (09:31→20:39)
--- NOTE | 2021-12-01 10:32 | Nephrology Progress Note ---
Date of Service December 01, 2021 Assessment & Plan (1) KEAGAN (acute kidney injury): Plan: Creatinine stable. Volume status acceptable. Electrolytes controlled. Diuretics held. Medications appropriate for kidney dysfunction. No additional changes at this time. (2) Hyperkalemia: Plan: Patiromer 8.4 grams daily. Low potassium diet. (3) Chronic kidney disease, stage 4 (severe): Plan: Clinical history consistent with sFSGS. Dialysis will not be considered part of the care plan based on discussions regarding goals of care. Close outpatient follow up to be arranged at discharge. (4) Anemia of chronic disease: Plan: Epogen 81921 units 11/28. Completed 1 gm IV Venofer during recent admission and also received an additional 1 u PRBC transfusion support. Iron profile continues to demonstrate NEHEMIAH. Additional 200 mg IV venofer provided today. Post discharge, follow up in the nephrology clinic is encouraged to coordinate continued CHYNA therapy. Admission and Anticipated Discharge Date Admission Date: November 27, 2021 Subjective No acute events overnight. Loose stools persist but improving. Appetite good. Reports feeling very weak this AM. Suspects that his weakness is related to a new medication which he believes may be the antibiotic. No fevers or chills. Breathing comfortably. Review of Systems Review of Systems: All systems reviewed & are unremarkable except as noted in HPI & below Physical Exam Constitutional: + cachectic and + frail appearing; no acute distress Eyes: + anicteric sclerae; no corneal abnormality ENMT: Mouth: no oral mucosal abnormality and oral mucous membranes not dry Neck: normal visual inspection and trachea midline Respiratory: normal respiratory effort Auscultation: lungs clear to auscultation bilaterally Cardiovascular: Rate/Rhythm: regular rate Heart Sounds: normal S1 and normal S2 Extremities: no edema Musculoskeletal: Extremities: no cyanosis and no clubbing Skin: + turgor decreased; no lesions Neurologic: Motor/Sensory: no tremor and no asterixis Psychiatric: Orientation: alert and oriented x 3 Results & Data ([facility]) Vital Signs (Past 12 Hours) Vital Signs Temp Pulse Resp BP Pulse Ox 12/01/21 09:10 99 H 158/74 H 12/01/21 07:58 36.4 C L 89 16 171/80 H 98 12/01/21 04:00 167/79 H Laboratory Results Laboratory Results - last 24 hr 11/30/21 12/01/21 12/01/21 17:00 07:18 07:18 WBC 10.43 RBC 2.64 L Hgb 8.5 L Hct 26.1 L MCV 98.9 MCH 32.2 MCHC 32.6 RDW Std Deviation 57.6 H RDW Coeff of Lucas 16.0 H Plt Count 471 H MPV 9.3 Immature Gran % (Auto) 0.7 Neut % (Auto) 64.1 Lymph % (Auto) 21.7 [place] % (Auto) 10.1 Eos % (Auto) 3.2 Baso % (Auto) 0.2 Neut # (Auto) 6.70 H Lymph # (Auto) 2.26 Hand # (Auto) 1.05 H Eos # (Auto) 0.33 Baso # (Auto) 0.02 Immature Gran # (Auto) 0.07 H Sodium 134 L Potassium 3.9 Chloride 99 Carbon Dioxide 27 Anion Gap 8 BUN 108 H Creatinine 3.16 H D Est Cr Clr Drug Dosing 14.7 Est GFR ( Amer) 20.6 Est GFR (Non-Af Amer) 17.7 BUN/Creatinine Ratio 34.2 H Glucose 97 Calcium 8.3 L Magnesium 1.7 Stl C. diff Tox B Gene Negative Cdiff Gene PG Care Time/CCT Total # of Minutes Spent Total Time Spent with Patient: Total time spent is greater than 50% in coordination of care (as documented) at patient's floor/unit and/or counseling patient: Coding Level of Care Code 93797 Subseq Hosp Care Lvl 3 Diagnoses KEAGAN (acute kidney injury) N17.9 Hyperkalemia E87.5 Chronic kidney disease, stage 4 (severe) N18.4 Anemia of chronic disease D63.8
[2021-12-01] MEDS: ONDANSETRON INJ 2 MG/ML 2 ML VIAL IV PRN (11:13)
[2021-12-01] MEDS: PATIROMER CALCIUM SORBITEX 8.4 GM PACK PO SCH (12:43)
[2021-12-01] MEDS ORDERED: IRON SUCROSE 200 MG in 0.9 % SODIUM CHLORIDE 100 ML IV ONE (14:00)
[2021-12-01] MEDS ORDERED: PROCHLORPERAZINE 10 MG in SYRINGE 8 ML IV PRN (15:22)
[2021-12-01] MEDS ORDERED: PROCHLORPERAZINE 10 MG in SYRINGE 8 ML IV ONE (15:30)
--- NOTE | 2021-12-01 15:36 | Hospitalist Progress Note ---
Date of Service December 01, 2021 Assessment & Plan (1) Sepsis: Plan: Suspected source pneumonia and colitis Sepsis now resolved after treatment with IVFs, abx Leukocytosis recurred after that as he received a dose of IV Solu Medrol in ER x 1 which has not been continued WBC count now back to normal Continue abx but transitioned IV Zosyn to po Augmentin which will cover for aspiration pneumonia as well as colitis -Has received 4 doses of azithromycin-we will now discontinue as he is having diarrhea and nausea which may be related to azithromycin MRSA nasal swab is negative so no need for MRSA coverage initially started empirically on po Vancomycin and IV Flagyl due to diarrhea after taking abx as outpt, but has only had one formed stool since admission so C. diff testing not performed and abx stopped However now with recurrent diarrhea since 11/30-> checked C. diff she was negative on 11/30 BPs stable, no fevers or tachycardia (2) Acute encephalopathy: Plan: came in obtunded, secondary to renal failure, opioid use, and sepsis was given Narcan and had immediate improvement then treated for sepsis as above now resolved despite being back on home doses of hydrocodone (3) Right lower lobe pneumonia: Plan: Progression of pneumonia on CXR while on doxycycline as an outpt ?aspiration given location - SLT assessment appreciated-no overt aspiration at bedside but if he was sedated from opioids, could have aspirated then continue abx as above will need f/u CXR to ensure resolution in 4-6 weeks remains on his usual outpatient supplemental O2 (4) Colitis: Plan: Noted on CT - no abd tenderness upon admission as above, initially txd empirically for C. diff but diarrhea none resolved into the p.o. vancomycin and IV Flagyl were discontinued -Diarrhea recurred on 11/30-C. difficile negative Suspect diarrhea at this point is related to antibiotic use, but could also be from Veltassa? Also having nausea on 3 Abdomen remains soft nontender COVID negative Continue Augmentin as above to finish out 7-day course -Continue probiotics -Discontinuing azithromycin to see if this will help diarrhea -Add on IV Compazine as needed for nausea (5) Acute on chronic renal failure: Plan: Appeared dry on exam in setting of current infection and diuretic use on admission. [employer] worsened on day#2 to 4.46 with worsening hyponatremia, metabolic acidosis and hyperkalemia, however then improved with bicarb gtt x 1L Hyperkalemia resolved, met acidosis resolved, hyponatremia now resolved [employer] down even further today to 3.1, he is making urine Baseline creatinine 2.6 No evidence for obstruction on CT A/P UA with some RBCs likely from Hdz trauma -no further IVFs now, is yue po -continue home Veltassa once daily although this may be contributing to some of his abdominal discomfort and diarrhea -Continue holding home bumetanide and HCTZ -Appreciate nephrology consultation -Follow BMP -Follow urine output-Hdz catheter was discontinued on 11/30 -will need outpt f/u with Nephro (6) Hyperkalemia: Plan: As above, now resolved with Valtessa and NaHCO3 gtt -continue daily Veltassa Follow BMP -renal diet (7) Chronic pain: Plan: Initially held opiates in setting of suspected overdose with bradypnea as above And developed significant pain after encephalopathy completely resolved continue home hydrocodone 10 mg 2 tablets p.o. every 6 hours as needed (8) Hypomagnesemia: Plan: Replaced and resolved Follow magnesium level in the morning especially in the setting of ongoing diarrhea (9) Chronic respiratory failure with hypoxia: Plan: Baseline 7LPM O2 - actually maintaining O2 sats with O2 2LNC but he insists on having it higher-> at 5LNC today and POx 99% Wean O2 to aim O2 sats > 90% (10) GERD (gastroesophageal reflux disease): Plan: continue PPI (11) Essential tremor: Plan: continue primidone (12) Bradypnea: Plan: Occasional agonal breathing in the ER on initial presentation. Naloxone 0.4mg IV given to good effect however caused patient excessive pain Now completely resolved have since restarted chronic opioids daughter reports he has a friend who will now be managing his opioids and benzos to avoid overdose (13) Severe protein-calorie malnutrition: Plan: BMI 15.2 Appreciate nutritional consultation (14) Hyponatremia: Plan: As above, sodium now improved to 134 was secondary to acute kidney injury Gave volume replacement as above Follow BMP (15) Anemia: Plan: Hemoglobin down 7.0 and now back up to 8.5. IV fluids discontinued Has been treated with Epogen and IV iron during past admissions iron studies drawn and calculated Transferrin sat is 68% received IV Venofer here x2 doses Anemia of chronic kidney disease -consent obtained for PRBC transfusion--> will transfuse if hgb<7.0 or if becomes symptomatic (not currently symptomatic) -Follow CBC -Continue oral ferrous sulfate (16) AAA (abdominal aortic aneurysm): Plan: Noted on CT abdomen/pelvis 4.9 cm, increased from 4.4cm previously, also with bilateral iliac artery aneurysms Follow as an outpatient with Vascular SUrgery (17) Opioid dependence: Plan: as above (18) CAD (coronary artery disease): Plan: h/o stent to RCA 1995 continue ASA, statin (19) Hypertension: Plan: BPs remain elevated today he has amlodipine and diltiazem listed on home med rec but dc summary from 09/2021 says to stop amlodipine and add dilt due to SVT/?Afib also supposed to be on Toprol XL 100mg daily but this hasn't been filled recently-restarted and titrated up gradually to 100 mg daily on 12/01 -continue diltiazem 120mg po daily -continue to hold home bumex and HCTZ (20) Depression: Plan: mood is irritable continue Effexor, Mirtazapine Plan: VTE Prophylaxis - heparin 5000 units BID Disposition - continued stay now on med/surg. Ordered PT/OT but he is refusing eval again today due to diarrhea, weakness, nausea. He is anxious for discharge to home when he is feeling better-hopefully in the next 1 to 2 days will update daughter by phone COnditional CODE-no ventilation or intubation Admission and Anticipated Discharge Date Admission Date: November 27, 2021 Subjective Feeling very weak, could not participate with PT. Still having loose stools and today with nausea. He has had at least 3 loose stools today and the nurses aide reports that the stool was dark in color although he is on oral iron as well. He has not vomited. Does have some mild abdominal discomfort but no real pain. Just does not feel well. Denies any other problems and is still wondering when he can go home, but is agreeable to staying till he feels better. Review of Systems Review of Systems: All systems reviewed & are unremarkable except as noted in HPI & below Physical Exam Constitutional: + cachectic and + frail appearing; no acute distress Eyes: + anicteric sclerae ENMT: external ear and nose normal, oropharynx normal Neck: trachea midline, no thyromegaly Respiratory: normal respiratory effort; no cough Auscultation: + rhonchi (Right base); no wheezes Cardiovascular: RRR, no murmur, no edema Chest (Breasts): Chest: normal inspection of chest Gastrointestinal (Abdomen): normal bowel sounds, soft, nontender, no hepatosplenomegaly Musculoskeletal: Extremities: extremities normal to inspection; no cyanosis and no clubbing Skin: no rashes, warm and dry Neurologic: moves all extremities and awake; no focal motor deficits Psychiatric: Orientation: alert and oriented x 3 Lymphatic: no lymphedema Results & Data Results & Data ([facility]) Vital Signs (Past 12 Hours) Vital Signs Temp Pulse Resp BP Pulse Ox 12/01/21 15:28 36.6 C 79 18 165/76 H 100 12/01/21 15:15 36.8 C 79 16 169/80 H 100 12/01/21 15:04 36.8 C 79 16 170/78 H 100 12/01/21 14:47 36.8 C 85 16 167/82 H 100 12/01/21 09:10 99 H 158/74 H 12/01/21 07:58 36.4 C L 89 16 171/80 H 98 12/01/21 04:00 167/79 H Laboratory Results 12/01/21 12/01/21 11/30/21 Range/Units 07:18 07:18 17:00 WBC 10.43 (4.8-10.8) K/uL RBC 2.64 L (4.7-6.1) M/uL Hgb 8.5 L (14.0-18.0) g/dL Hct 26.1 L (42-52) % MCV 98.9 (80-100) fL MCH 32.2 (25-34) pg MCHC 32.6 (32-36) g/dL RDW Std Deviation 57.6 H (36.4-46.3) fL RDW Coeff of Lucas 16.0 H (11.5-14.5) % Plt Count 471 H (130-400) K/uL MPV 9.3 (7.4-10.4) fL Immature Gran % (Auto) 0.7 % Neut % (Auto) 64.1 % Lymph % (Auto) 21.7 % [place] % (Auto) 10.1 % Eos % (Auto) 3.2 % Baso % (Auto) 0.2 % Neut # (Auto) 6.70 H (1.4-6.5) K/uL Lymph # (Auto) 2.26 (1.2-3.4) K/uL [place] # (Auto) 1.05 H (0.11-0.59) K/uL Eos # (Auto) 0.33 (0-0.5) K/uL Baso # (Auto) 0.02 (0-0.2) K/uL Immature Gran # (Auto) 0.07 H (0.00-0.02) K/uL Sodium 134 L (136-145) mmol/L Potassium 3.9 (3.5-5.1) mmol/L Chloride 99 (98-107) mmol/L Carbon Dioxide 27 (21-32) mmol/L Anion Gap 8 (3-11) BUN 108 H (6-23) mg/dl Creatinine 3.16 H D (0.6-1.4) mg/dl Est Cr Clr Drug Dosing 14.7 ml/min Est GFR ( Amer) 20.6 ml/min Est GFR (Non-Af Amer) 17.7 ml/min BUN/Creatinine Ratio 34.2 H (10-20) Glucose 97 (70-99(Fasting)) mg/dl Calcium 8.3 L (8.5-10.1) mg/dl Magnesium 1.7 (1.7-2.4) mg/dl Stl C. diff Tox B Gene Negative Cdiff Gene (Neg) PG Care Time/CCT Total # of Minutes Spent Total Time Spent with Patient: Total time spent is greater than 50% in coordination of care (as documented) at patient's floor/unit and/or counseling patient: Coding Level of Care Code 45453 Subseq Hosp Care Lvl 2 Diagnoses Sepsis A41.9 Acute encephalopathy G93.40 Right lower lobe pneumonia J18.9 Pneumonia type: due to unspecified organism Colitis K52.9 Acute on chronic renal failure N17.9; N18.9 Acute renal failure type: unspecified Chronic kidney disease stage: unspecified stage Hyperkalemia E87.5 Chronic pain G89.4 Chronic pain type: chronic pain syndrome Hypomagnesemia E83.42 Chronic respiratory failure with hypoxia J96.11 GERD (gastroesophageal reflux disease) K21.9 Essential tremor G25.0 Bradypnea R06.89 Severe protein-calorie malnutrition E43 Hyponatremia E87.1 Anemia D64.9 AAA (abdominal aortic aneurysm) I71.4 Opioid dependence F11.20 CAD (coronary artery disease) I25.10 Hypertension I10 Depression F32.A (1) Right lower lobe pneumonia Pneumonia type: due to unspecified organism Qualified Code(s): J18.9 - Pneumonia, unspecified organism (2) Acute on chronic renal failure Acute renal failure type: unspecified Chronic kidney disease stage: unspecified stage Qualified Code(s): N17.9 - Acute kidney failure, unspecified; N18.9 - Chronic kidney disease, unspecified (3) Chronic pain Chronic pain type: chronic pain syndrome Qualified Code(s): G89.4 - Chronic pain syndrome
[2021-12-01] MEDS ORDERED: NORMOSOL-R 1,000 ML IV SCH (16:00)
[2021-12-01] MEDS: LOPERAMIDE HCL 2 MG CAP PO PRN (18:12)
[2021-12-01] MEDS: TAMSULOSIN HCL 0.4 MG CAP PO SCH (20:38)
[2021-12-01] MEDS: MIRTAZAPINE TAB 15 MG TAB PO SCH (20:38)
[2021-12-02] MEDS: HYDROcodone/ACETAMINOPHEN 10/325 TAB PO PRN ×4 (01:08→20:13)
[2021-12-02 06:38] LABS: Basophils # (auto) 0.01 K/uL (0-0.2); Basophils % (auto) 0.1 %; Eosinophils # (auto) 0.27 K/uL (0-0.5); Hematocrit (blood only) 25.3 % (42-52); Hemoglobin 8.1 g/dL (14.0-18.0); Immature Granulocytes # (auto) 0.05 K/uL (0.00-0.02); Immature Granulocytes % (auto) 0.6 %; Lymphocytes # (auto) 1.67 K/uL (1.2-3.4); Lymphocytes % (auto) 18.5 %; Mean Corpuscular Hemoglobin 31.9 pg (25-34); Mean Corpuscular Volume 99.6 fL (80-100); Mean Platelet Volume 9.4 fL (7.4-10.4); Monocytes # (auto) 0.92 K/uL (0.11-0.59); Monocytes % (auto) 10.2 %; Neutrophils # (auto) 6.09 K/uL (1.4-6.5); Neutrophils % (auto) 67.6 %; Platelet Count 441 K/uL (130-400); RDW Coefficient of Variation 15.8 % (11.5-14.5); RDW Standard Deviation 57.5 fL (36.4-46.3); Red Blood Count 2.54 M/uL (4.7-6.1); White Blood Count 9.01 K/uL (4.8-10.8)
[2021-12-02 07:04] LABS: Albumin Level 2.9 gm/dl (3.4-5.0); BUN Creatinine Ratio 32.4 (10-20); Bilirubin,Total 0.3 mg/dl (0.2-1.0); Calcium 8.2 mg/dl (8.5-10.1); Creatinine Clr Calc Pharmacy 16.4 ml/min; Est GFR (African American) 23.4 ml/min; Est GFR (Non-African American) 20.2 ml/min; Magnesium 1.5 mg/dl (1.7-2.4); Potassium 3.7 mmol/L (3.5-5.1); Total Protein 5.9 gm/dl (6.0-8.3)
[2021-12-02] MEDS: LOPERAMIDE HCL 2 MG CAP PO PRN (07:50)
[2021-12-02] MEDS: AMOXICILLIN/CLAVULANATE 500 MG TAB PO SCH ×2 (09:26→17:39)
[2021-12-02] MEDS: ATORVASTATIN 40 MG TAB PO SCH (09:27)
[2021-12-02] MEDS: ASPIRIN 81 MG ECTAB PO SCH (09:27)
[2021-12-02] MEDS: FERROUS SULFATE 325 MG TAB PO SCH (09:28)
[2021-12-02] MEDS: FLUTICASONE FUROATE 200MCG 14 PUFFS/INHALER INH SCH (09:28)
[2021-12-02] MEDS: HEPARIN SOD 5,000 UNIT/0.5 ML VIAL SQ SCH ×2 (09:28→20:14)
[2021-12-02] MEDS: PRIMIDONE 50 MG TAB PO SCH ×2 (09:29→20:15)
[2021-12-02] MEDS: PANTOprazole 40 MG TAB PO SCH (09:29)
[2021-12-02] MEDS: ADVANCED PROBIOTIC 1250 MG CAPSULE PO SCH (09:29)
[2021-12-02] MEDS: UMECLIDINIUM/VILANTEROL 62.5/25MCG 7 PUFFS/INHALER INH SCH (09:30)
[2021-12-02] MEDS: VENLAFAXINE HCL XR 37.5 MG CAPXR PO SCH (09:30)
[2021-12-02] MEDS: METOPROLOL SUCC 50MG EXT REL TAB PO SCH (09:35)
[2021-12-02] MEDS: dilTIAZem HCL 120 MG CAPCR PO SCH (09:35)
[2021-12-02] MEDS: MAGNESIUM SULFATE / D5W 1 GM/100 ML BAG IV SCH ×2 (09:45→11:34)
--- NOTE | 2021-12-02 10:15 | Nephrology Progress Note ---
Date of Service December 02, 2021 Assessment & Plan (1) KEAGAN (acute kidney injury): Plan: Creatinine slightly improved. Volume status acceptable. Electrolytes controlled. Diuretics held. Continue to encourage even to slightly positive fluid balance. Medications appropriate for kidney dysfunction. No additional changes at this time. (2) Hyperkalemia: Plan: Patiromer 8.4 grams daily, held today given K <4. Low potassium diet. IV MgSo4 x 2 grams provided for hypomagnesemia. (3) Chronic kidney disease, stage 4 (severe): Plan: Clinical history consistent with sFSGS. Dialysis will not be considered part of the care plan based on discussions regarding goals of care. Close outpatient follow up to be arranged at discharge. (4) Anemia of chronic disease: Plan: Epogen 48762 units 11/28. Additional 200 mg IV venofer provided x 3 days. Post discharge, follow up in the nephrology clinic is encouraged to coordinate continued CHYNA therapy. Admission and Anticipated Discharge Date Admission Date: November 27, 2021 Subjective Reports improvement in GI symptoms. Overall continues to feel weak but otherwise well. Notes that drinking coke has helped improve nausea. 1 x bowel movement this morning, soft and more formed. No abdominal pain. 1 L IV Normosol provided overnight. Review of Systems Review of Systems: All systems reviewed & are unremarkable except as noted in HPI & below Physical Exam Constitutional: + cachectic and + frail appearing; no acute distress Eyes: + anicteric sclerae; no corneal abnormality ENMT: Mouth: no oral mucosal abnormality and oral mucous membranes not dry Neck: normal visual inspection and trachea midline Respiratory: normal respiratory effort Auscultation: lungs clear to auscultation bilaterally Cardiovascular: Rate/Rhythm: regular rate Heart Sounds: normal S1 and normal S2 Extremities: no edema Musculoskeletal: Extremities: no cyanosis and no clubbing Skin: + turgor decreased; no lesions Neurologic: Motor/Sensory: no tremor and no asterixis Psychiatric: Orientation: alert and oriented x 3 Results & Data ([facility]) Vital Signs (Past 12 Hours) Vital Signs Temp Pulse Resp BP Pulse Ox 12/02/21 09:33 99 H 187/79 H 12/02/21 08:17 186/79 H 12/02/21 07:57 36.6 C 75 16 99 12/01/21 22:55 36.6 C 83 16 171/77 H 100 Laboratory Results Laboratory Results - last 24 hr 12/02/21 12/02/21 06:12 06:12 WBC 9.01 RBC 2.54 L Hgb 8.1 L Hct 25.3 L MCV 99.6 MCH 31.9 MCHC 32.0 RDW Std Deviation 57.5 H RDW Coeff of Lucas 15.8 H Plt Count 441 H MPV 9.4 Immature Gran % (Auto) 0.6 Neut % (Auto) 67.6 Lymph % (Auto) 18.5 [place] % (Auto) 10.2 Eos % (Auto) 3.0 Baso % (Auto) 0.1 Neut # (Auto) 6.09 Lymph # (Auto) 1.67 [place] # (Auto) 0.92 H Eos # (Auto) 0.27 Baso # (Auto) 0.01 Immature Gran # (Auto) 0.05 H Sodium 135 L Potassium 3.7 Chloride 101 Carbon Dioxide 28 Anion Gap 6 BUN 92 H Creatinine 2.84 H D Est Cr Clr Drug Dosing 16.4 Est GFR ( Amer) 23.4 Est GFR (Non-Af Amer) 20.2 BUN/Creatinine Ratio 32.4 H Glucose 100 H Calcium 8.2 L Magnesium 1.5 L Total Bilirubin 0.3 AST 18 ALT 22 Alkaline Phosphatase 43 Total Protein 5.9 L Albumin 2.9 L Globulin 3.0 Albumin/Globulin Ratio 1.0 PG Care Time/CCT Total # of Minutes Spent Total Time Spent with Patient: Total time spent is greater than 50% in coordination of care (as documented) at patient's floor/unit and/or counseling patient: Coding Level of Care Code 42100 Subseq Hosp Care Lvl 3 Diagnoses KEAGAN (acute kidney injury) N17.9 Hyperkalemia E87.5 Chronic kidney disease, stage 4 (severe) N18.4 Anemia of chronic disease D63.8
[2021-12-02] MEDS ORDERED: amLODIPine BESYLATE 5 MG TAB PO STA (12:37)
[2021-12-02] MEDS ORDERED: amLODIPine BESYLATE 5 MG TAB PO ONE (12:45)
--- NOTE | 2021-12-02 14:45 | Hospitalist Progress Note ---
Date of Service December 02, 2021 Assessment & Plan (1) Sepsis: Plan: Sepsis 2/2 pneumonia, DDx includes colitis Resolved following IV fluid and antibiotic treatment Leukocytosis resolved Transition from Zosyn to Augmentin for potential aspiration pneumonia, concern for colitis as below Discontinued azithromycin after 4 doses, diarrhea improved with this MRSA nare negative C. difficile -11/30 BP inadequately elevated, patient with KEAGAN downtrending HCTZ to be resumed tomorrow renal function permitting (2) Acute encephalopathy: Plan: Patient presented obtunded with renal failure, opioid use, and sepsis Woke up immediately following Narcan Now at base mentation (3) Right lower lobe pneumonia: Plan: Progression of pneumonia on CXR while on doxycycline as an outpt ?aspiration given location - SLT assessment appreciated-no overt aspiration at bedside but if he was sedated from opioids, could have aspirated then Continue Augmentin as above Follow-up CXR to ensure resolution in 4-6 weeks At baseline oxygen requirements (4) Colitis: Plan: Noted on CT - no abd tenderness upon admission As above, initially txd empirically for C. diff but diarrhea none resolved into the p.o. vancomycin and IV Flagyl were discontinued -Diarrhea recurred on 11/30-C. difficile negative Suspect antibiotic induced, improved Nausea improved 12/02 Abdomen benign Covid negative On Augmentin as above Continue probiotics (5) Acute on chronic renal failure: Plan: Clinically dry on admitting exam in the setting of infection Nephrology consulted, patient with creatinine worsened to 4.4, metabolic acidosis, and elevated K Improving following bicarb gtt. and gentle fluids, hyperkalemia resolved above/Veltassa Creatinine continues to downtrend, baseline approximately 2.62.8 Inadequate blood pressure control, HCTZ currently held due to KEAGAN. Other antihypertensives resumed, one-time dose of amlodipine given, resume HCTZ tomorrow renal function permitting Bumex continues to be held as patient is clinically dry, ratio 32 Continue home Veltassa daily, hold for hypokalemia.? Contribution to abdominal discomfort/diarrhea, this did resolve when this was held for a day but azithromycin was also discontinued at the same time -Appreciate nephrology consultation -Follow BMP -Follow urine output-Hdz catheter was discontinued on 11/30 -will need outpt f/u with Nephro (6) Hyperkalemia: Plan: As above, now resolved with Valtessa and NaHCO3 gtt -continue daily Veltassa Follow BMP -renal diet (7) Chronic pain: Plan: Initially held opiates in setting of suspected overdose with bradypnea as above And developed significant pain after encephalopathy completely resolved Continue home hydrocodone 10 mg 2 tablets p.o. every 6 hours as needed (8) Hypomagnesemia: Plan: - Replaced and resolved (9) Chronic respiratory failure with hypoxia: Plan: Baseline 7LPM O2 - actually maintaining O2 sats with O2 2LNC but he insists on having it higher-> at 3-5LNC today and POx 99% Wean O2 to aim O2 sats > 90% (10) GERD (gastroesophageal reflux disease): Plan: continue PPI (11) Essential tremor: Plan: continue primidone (12) Bradypnea: Plan: -Occasional agonal breathing in the ER on initial presentation. -Naloxone 0.4mg IV given to good effect however caused patient excessive pain -Now completely resolved -have since restarted chronic opioids -daughter reports he has a friend who will now be managing his opioids and benzos to avoid overdose (13) Severe protein-calorie malnutrition: Plan: BMI 15.2 Appreciate nutritional consultation (14) Hyponatremia: Plan: As above, sodium now improved to 134 was secondary to acute kidney injury Gave volume replacement as above Follow BMP (15) Anemia: Plan: Hemoglobin down 7.0 and now back up to 8.5. IV fluids discontinued Has been treated with Epogen and IV iron during past admissions iron studies drawn and calculated Transferrin sat is 68% received IV Venofer here x2 doses Anemia of chronic kidney disease -consent obtained for PRBC transfusion--> will transfuse if hgb<7.0 or if becomes symptomatic (not currently symptomatic) -Follow CBC -Continue oral ferrous sulfate (16) AAA (abdominal aortic aneurysm): Plan: Noted on CT abdomen/pelvis 4.9 cm, increased from 4.4cm previously, also with bilateral iliac artery aneurysms Follow as an outpatient with Vascular SUrgery (17) Opioid dependence: Plan: as above (18) CAD (coronary artery disease): Plan: h/o stent to RCA 1994 continue ASA, statin (19) Hypertension: Plan: -BPs remain elevated today, inadequate control with systolic greater than 180 -he has amlodipine and diltiazem listed on home med rec but dc summary from 09/2021 says to stop amlodipine and add dilt due to SVT/?Afib -also supposed to be on Toprol XL 100mg daily but this hasn't been filled recently-restarted and titrated up gradually to 100 mg daily on 12/01 -continue diltiazem 120mg po daily -Bumex remains held, patient clinically dry HCTZ to be resumed tomorrow if renal function permits Trial hydralazine if above ineffective (20) Depression: Plan: mood is irritable continue Effexor, Mirtazapine Plan: VTE Prophylaxis - heparin 5000 units BID Disposition -improving, KEAGAN improving, remaining for hypertension management in the setting of KEAGAN although if doing well anticipate discharge possibly tomjill quiroz. PT/OT following, anticipate discharge to home COnditional CODE-no ventilation or intubation Admission and Anticipated Discharge Date Admission Date: November 27, 2021 Subjective Diarrhea improved today. Still feels a little weak, but getting stronger. Feels he will be able to work with PT today. Inadequately controlled hypertension, HCTZ currently held for KEAGAN downtrending not yet back to baseline. One-time dose of amlodipine given with some improvement, still above goal. Patient denies chest pain, chest pressure, shortness of breath, difficulty breathing, lightheadedness, dizziness. No abdominal pain. Review of Systems Review of Systems: All systems reviewed & are unremarkable except as noted in Subjective Physical Exam Physical Exam: General: Cachectic, frail. Cooperative. HEENT: Atraumatic, normocephalic. Visual and hearing grossly intact. Pulm: CTAB A&P. -wheezes, -rales. R>L coarse at base. Symmetrical chest rise. No increase in work of breathing. No respiratory distress. Cardiac: RRR, -mrg. Radial pulses intact and symmetrical. Abdominal: Nontender, nondistended, soft. BS present. Results & Data Results & Data ([facility]) Vital Signs (Past 12 Hours) Vital Signs Temp Pulse Resp BP Pulse Ox 12/02/21 13:31 73 16 172/78 H 100 12/02/21 12:33 178/84 H 12/02/21 09:33 99 H 187/79 H 12/02/21 08:17 186/79 H 12/02/21 07:57 36.6 C 75 16 99 PG Care Time/CCT Total # of Minutes Spent Total Time Spent with Patient: Total time spent is greater than 50% in coordination of care (as documented) at patient's floor/unit and/or counseling patient: Coding Level of Care Code 86368 Subseq Hosp Care Lvl 2 Diagnoses Sepsis A41.9 Acute encephalopathy G93.40 Right lower lobe pneumonia J18.9 Pneumonia type: due to unspecified organism Colitis K52.9 Acute on chronic renal failure N17.9; N18.9 Acute renal failure type: unspecified Chronic kidney disease stage: unspecified stage Hyperkalemia E87.5 Chronic pain G89.4 Chronic pain type: chronic pain syndrome Hypomagnesemia E83.42 Chronic respiratory failure with hypoxia J96.11 GERD (gastroesophageal reflux disease) K21.9 Essential tremor G25.0 Bradypnea R06.89 Severe protein-calorie malnutrition E43 Hyponatremia E87.1 Anemia D64.9 AAA (abdominal aortic aneurysm) I71.4 Opioid dependence F11.20 CAD (coronary artery disease) I25.10 Hypertension I10 Depression F32.A (1) Right lower lobe pneumonia Pneumonia type: due to unspecified organism Qualified Code(s): J18.9 - Pneumonia, unspecified organism (2) Acute on chronic renal failure Acute renal failure type: unspecified Chronic kidney disease stage: unspecified stage Qualified Code(s): N17.9 - Acute kidney failure, unspecified; N18.9 - Chronic kidney disease, unspecified (3) Chronic pain Chronic pain type: chronic pain syndrome Qualified Code(s): G89.4 - Chronic pain syndrome
[2021-12-02] MEDS: MIRTAZAPINE TAB 15 MG TAB PO SCH (20:15)
[2021-12-02] MEDS: TAMSULOSIN HCL 0.4 MG CAP PO SCH (20:16)
[2021-12-03] MEDS: HYDROcodone/ACETAMINOPHEN 10/325 TAB PO PRN ×2 (02:09→09:28)
[2021-12-03] MEDS: LOPERAMIDE HCL 2 MG CAP PO PRN (02:31)
[2021-12-03] MEDS: AMOXICILLIN/CLAVULANATE 500 MG TAB PO SCH (08:57)
[2021-12-03] MEDS: ATORVASTATIN 40 MG TAB PO SCH (08:58)
[2021-12-03] MEDS: dilTIAZem HCL 120 MG CAPCR PO SCH (08:58)
[2021-12-03] MEDS: ASPIRIN 81 MG ECTAB PO SCH (08:58)
[2021-12-03] MEDS: VENLAFAXINE HCL XR 37.5 MG CAPXR PO SCH (08:59)
[2021-12-03] MEDS: METOPROLOL SUCC 50MG EXT REL TAB PO SCH (08:59)
[2021-12-03] MEDS: FERROUS SULFATE 325 MG TAB PO SCH (08:59)
[2021-12-03] MEDS: ADVANCED PROBIOTIC 1250 MG CAPSULE PO SCH (09:00)
[2021-12-03] MEDS: FLUTICASONE FUROATE 200MCG 14 PUFFS/INHALER INH SCH (09:00)
[2021-12-03] MEDS: UMECLIDINIUM/VILANTEROL 62.5/25MCG 7 PUFFS/INHALER INH SCH (09:00)
[2021-12-03] MEDS ORDERED: hydroCHLOROthiazide 25 MG TAB PO SCH (09:00)
[2021-12-03] MEDS: PRIMIDONE 50 MG TAB PO SCH (09:00)
[2021-12-03] MEDS: PANTOprazole 40 MG TAB PO SCH (09:01)
[2021-12-03] MEDS: HEPARIN SOD 5,000 UNIT/0.5 ML VIAL SQ SCH (09:02)
--- NOTE | 2021-12-03 10:45 | Nephrology Progress Note ---
Date of Service December 03, 2021 Assessment & Plan (1) KEAGAN (acute kidney injury): Plan: Diuretics held. Consider restarting HCTZ at discharge. Follow up with repeat metabolic profile within 1 week, results can be faxed to [phone]. Follow up with me to be arranged in the nephrology clinic within 2 weeks of discharge. Medications appropriate for kidney dysfunction. (2) Hyperkalemia: Plan: Patiromer 8.4 grams daily held yesterday, suggest a dose reduction to MWF at discharge with close outpatient follow up. (3) Chronic kidney disease, stage 4 (severe): Plan: Clinical history consistent with sFSGS. Dialysis will not be considered part of the care plan based on discussions regarding goals of care. (4) Anemia of chronic disease: Plan: Epogen 11309 units 11/28. Additional 200 mg IV venofer provided x 3 days. Post discharge, follow up in the nephrology clinic is encouraged to coordinate continued CHYNA therapy. Admission and Anticipated Discharge Date Admission Date: November 27, 2021 Subjective No acute events overnight. Feeling reasonably well today and anticipating discharge home. Review of Systems Review of Systems: All systems reviewed & are unremarkable except as noted in HPI & below Physical Exam Constitutional: + cachectic and + frail appearing; no acute distress Eyes: + anicteric sclerae; no corneal abnormality ENMT: Mouth: no oral mucosal abnormality and oral mucous membranes not dry Neck: normal visual inspection and trachea midline Respiratory: normal respiratory effort Auscultation: lungs clear to auscultation bilaterally Cardiovascular: Rate/Rhythm: regular rate Heart Sounds: normal S1 and normal S2 Extremities: no edema Musculoskeletal: Extremities: no cyanosis and no clubbing Skin: + turgor decreased; no lesions Neurologic: Motor/Sensory: no tremor and no asterixis Psychiatric: Orientation: alert and oriented x 3 Results & Data ([facility]) Vital Signs (Past 12 Hours) Vital Signs Temp Pulse Resp BP Pulse Ox 12/03/21 07:59 36.6 C 87 16 166/77 H 99 12/02/21 23:02 36.8 C 82 16 178/82 H 99 PG Care Time/CCT Total # of Minutes Spent Total Time Spent with Patient: Total time spent is greater than 50% in coordination of care (as documented) at patient's floor/unit and/or counseling patient: Coding Level of Care Code 49999 Subseq Hosp Care Lvl 3 Diagnoses KEAGAN (acute kidney injury) N17.9 Hyperkalemia E87.5 Chronic kidney disease, stage 4 (severe) N18.4 Anemia of chronic disease D63.8
[2021-12-03] MEDS ORDERED: ONDANSETRON 2 MG OD TAB PO PRN (12:18)
--- NOTE | 2021-12-03 17:02 | Discharge Summary ---
Date of Service December 03, 2021 Admission HPI Per Admitting Provider Usman Hilton is a 81 year old male who presents to the ER via EMS due to lethargy. Unable to get any significant history from the patient. Since being on doxycycline for pneumonia on November 18 for pneumonia he has been having diarrhea. Reportedly at his baseline yesterday per caregiver. Much more lethargic today. Reportedly taking his usual amount of hydrocodone. He was most recently hospitalized in September 2021 due to hypoxia related to pulmonary edema from CKD which improved with Bumex 1mg PO BID in additional to HCTZ 25mg PO daily on discharge. In the ER CXR is concerning for progression of his previously diagnosed pneumonia in right lower lobe. WBC increased to 17.05. Cr increased to 4.12 from baseline 2.97. When seen the patient was minimally responsive with respiratory rate 8 - agonal breathing. After naloxone given agonal breathing resolved, awake and responsive but in significant pain. Principal Diagnosis Sepsis 2/2 pneumonia Hypertension Colitis Hyper then hypokalemia Discharge Exam General: Cachectic, frail. Cooperative. HEENT: Atraumatic, normocephalic. Visual and hearing grossly intact. Pulm: Moderate air movement, improved aeration at the bases today, CTAB A&P. - wheezes, -rales. Symmetrical chest rise. No increase in work of breathing. No respiratory distress. Cardiac: RRR, -mrg. Radial pulses intact and symmetrical. Abdominal: Nontender, nondistended, soft. BS present. Discharge Data Allergies Allergy/AdvReac Type Severity Reaction Status Date / Time cefuroxime Allergy Intermediate rash Verified 11/27/21 16:43 lisinopril Allergy Mild itching Verified 11/27/21 16:43 Consultations 11/27/21 16:09 ED Decision to Admit Stat 11/28/21 09:40 Consult Nephrology Routine Ordered Studies 11/27/21 14:20 CT head/brain wo con Stat 11/27/21 16:04 CT abd pelvis wo con Stat Hospital Course (1) Sepsis: Usman is a 81-year-old male with a history of CKD, COPD, CHF, AAA, CAD who presented with sepsis thought to be of pneumonia with concern for associated colitis. He was treated with antibiotics and clinically improved. His course was plicated by KEAGAN in addition to hyper followed by hypokalemia. To do as outpatient: 1. Resume HCTZ 2. Decrease Veltassa to Monday dosing. This was unclear on discharge paperwork, patient was called by phone to clarify that he should have Monday dosing of this with a follow-up BMP within 1 week to be reviewed by nephrology 3. BMP within 1 week to follow potassium as above, and creatinine 4.Continue metoprolol succinate 100 mg by mouth once daily in the morning. 5. Complete Augmentin renally adjusted dosing twice daily through 12/07/2021. 6. Repeat chest x-ray in 4 to 6 weeks to ensure pneumonia resolution. 7. Routine follow-up with PCP 8. Follow-up with nephrology within 2 weeks 9. Diuretics held. Continuing resuming Bumex based on clinical volume status and kidney function at follow-up. This was continued on patient's med list, but discussed with patient to be held until advised to restart at his follow-up appointment. 10. Followup with Vascular Surgery as outpt, discussed w/ daughter at [place]. AAA 4.9cm from 4.4cm, discussed increasing rupture risk especially past 5.5cm although pt unsure if he would want intervention for this. Sepsis 2/2 pneumonia, DDx includes colitis Resolved following IV fluid and antibiotic treatment Leukocytosis resolved Transition from Zosyn to Augmentin for potential aspiration pneumonia, concern for colitis as below Discontinued azithromycin after 4 doses, diarrhea improved with this MRSA nare negative C. difficile -11/30 BP inadequately elevated, patient with KEAGAN downtrending HCTZ to be resumed tomorrow renal function permitting (2) Acute encephalopathy: Patient presented obtunded with renal failure, opioid use, and sepsis Woke up immediately following Narcan Now at base mentation (3) Colitis: Noted on CT - no abd tenderness upon admission As above, initially txd empirically for C. diff but diarrhea none resolved into the p.o. vancomycin and IV Flagyl were discontinued -Diarrhea recurred on 11/30-C. difficile negative Suspect antibiotic induced, improved Nausea improved 12/02 Abdomen benign Covid negative On Augmentin as above Continue probiotics (4) Acute on chronic renal failure: Clinically dry on admitting exam in the setting of infection Nephrology consulted, patient with creatinine worsened to 4.4, metabolic acidosis, and elevated K Improving following bicarb gtt. and gentle fluids, hyperkalemia resolved above/Veltassa Creatinine continues to downtrend, baseline approximately 2.62.8 Inadequate blood pressure control, HCTZ currently held due to KEAGAN. Other antihypertensives resumed, one-time dose of amlodipine given, resume HCTZ tomorrow renal function permitting Bumex continues to be held as patient is clinically dry, ratio 32 Continue home Veltassa daily, hold for hypokalemia.? Contribution to abdominal discomfort/diarrhea, this did resolve when this was held for a day but azithromycin was also discontinued at the same time -Appreciate nephrology consultation -Follow BMP -Follow urine output-Hdz catheter was discontinued on 11/30 -will need outpt f/u with Nephro (5) Hyperkalemia: As above, now resolved with Valtessa and NaHCO3 gtt -continue daily Veltassa Follow BMP -renal diet (6) Hypomagnesemia: - Replaced and resolved (7) Chronic respiratory failure with hypoxia: Baseline 7LPM O2 - actually maintaining O2 sats with O2 2LNC but he insists on having it higher-> at 3-5LNC today and POx 99% Wean O2 to aim O2 sats > 90% (8) GERD (gastroesophageal reflux disease): continue PPI (9) Essential tremor: continue primidone (10) Bradypnea: -Occasional agonal breathing in the ER on initial presentation. -Naloxone 0.4mg IV given to good effect however caused patient excessive pain -Now completely resolved -have since restarted chronic opioids -daughter reports he has a friend who will now be managing his opioids and benzos to avoid overdose (11) Severe protein-calorie malnutrition: BMI 15.2 Appreciate nutritional consultation (12) Hyponatremia: As above, sodium now improved to 134 was secondary to acute kidney injury Gave volume replacement as above Follow BMP (13) Anemia: Hemoglobin down 7.0 and now back up to 8.5. IV fluids discontinued Has been treated with Epogen and IV iron during past admissions iron studies drawn and calculated Transferrin sat is 68% received IV Venofer here x2 doses Anemia of chronic kidney disease -consent obtained for PRBC transfusion--> will transfuse if hgb<7.0 or if becomes symptomatic (not currently symptomatic) -Follow CBC -Continue oral ferrous sulfate (14) AAA (abdominal aortic aneurysm): Noted on CT abdomen/pelvis 4.9 cm, increased from 4.4cm previously, also with bilateral iliac artery aneurysms Follow as an outpatient with Vascular SUrgery Discussed w daughter as above (15) Opioid dependence: as above (16) CAD (coronary artery disease): h/o stent to RCA 1994 continue ASA, statin (17) Hypertension: -BPs remain elevated today, inadequate control with systolic greater than 180 -he has amlodipine and diltiazem listed on home med rec but dc summary from 09/2021 says to stop amlodipine and add dilt due to SVT/?Afib -also supposed to be on Toprol XL 100mg daily but this hasn't been filled recently-restarted and titrated up gradually to 100 mg daily on 12/01 -continue diltiazem 120mg po daily -Bumex remains held HCTZ resumed with follow-up BMP (18) Depression: mood is irritable continue Effexor, Mirtazapine VTE Prophylaxis - heparin 5000 units BID COnditional CODE-no ventilation or intubation Total Time Total Time Spent Total Time Spent (In Minutes): Time spend day of discharge 45 minutes including direct patient care, documentation, review of labs and images, and coordination of care. Discharge Plan Discharge Items Patient Disposition: Home - Home Health Services Reason For Visit: SEPSIS, PNA Discharge Diagnosis: Sepsis 2/2 pneumonia Activity: Per Instructions section Non-emergency contact: Primary Care Provider Call non-emergency contact if: you have any medication questions, your symptoms worsen, your pain is not controlled and your pain is worsening Follow-up/Referrals: Юлия Harvey MD [Primary Care Provider] - 12/13/21 3:00 pm (Tj Feldman PA-C) Diet: Heart Healthy Add Attending Provider Instructions: You are seen in the hospital for pneumonia. You are clinically improving, and was seen by physical therapy who recommended return home. You have had medication prescribed as below. You have been prescribed an antibiotic, Augmentin for pneumonia. Please continue to take Augmentin 500-125 mg by mouth twice daily through 12/07/2021. This can cause some loose bowels, you may take a probiotic to help minimize this. Your C. difficile testing was negative. You amlodipine has been discontinued. This has been replaced with metoprolol as below. You have been started on a blood pressure medicine, metoprolol succinate Please continue to take metoprolol 100 mg by mouth once daily in the morning. Your Bumex is temporarily been held, your outpatient providers will advise you when to resume this medication. Your Veltassa dose has been changed. Please take this on Monday instead of every day. Nephrology will follow up with you regarding this medicine. You should have repeat chest x-ray in 4 to 6 weeks to ensure resolution of your pneumonia. You are noted to have colitis on your CT scan, inflammation of the colon. Your C. difficile test was negative (this is a bacteria that can cause colitis). Was suspected that this was due to antibiotic use versus a medication called Veltassa. Your azithromycin was completed during admission (this was an antib iotic), your diarrhea improved day of discharge. You received iron transfusions and Epogen during admission for chronic anemia. Blood transfusion was not indicated at time of discharge. You should have regular CBC checks as an outpatient by her primary care physician. You were seen by physical therapy who recommended return home with home health services, these are being arranged for you through case management. Follow-up appointment is being scheduled for you with Dr. Harvey. You should be seen within 1 week. If you do not receive a call to confirm your appointment within 48 hours please call their office at the number above. You should have blood work including a repeat BMP performed at this appointment to check both your kidney function and your potassium levels. If your potassium levels are low your Veltassa should be held, and blood pressure medication adjustments may need to be made based on your kidney function. If you develop any new or worsening symptoms including fever, chills, sweats, chest pain, chest pressure, difficulty breathing, uncontrolled nausea/vomiting, rash, wheezing, passing out or nearly passing out, bleeding, black/bloody bowel movements, or other new or concerning symptoms please call your primary care physician, or call 911 for re-evaluation in the emergency department if you are very concerned. Pending Studies at Discharge: No Stand-Alone Forms: My [employer], Smoking Cessation Medications and DC Order Prescriptions: New metoprolol succinate 50 mg Tablet Extended Release 24 Hr 100 mg PO QAM 30 Days Qty: 60 RF: 0 amoxicillin-pot clavulanate 500-125 mg Tablet 1 tab PO BIDM 5 Days Qty: 10 RF: 0 Continued diltiazem HCl 120 mg capsule,extended release 24hr 120 mg PO DAILY Qty: 90 RF: 3 hydrochlorothiazide 25 mg tablet 25 mg PO DAILY Qty: 90 RF: 3 ondansetron HCl 4 mg tablet 4 mg PO Q6H PRN (Reason: nausea and vomiting) Qty: 30 RF: 0 lorazepam 0.5 mg tablet 0.5 mg PO TID PRN (Reason: anxiety) Qty: 90 RF: 0 hydrocodone-acetaminophen 10-325 mg tablet 2 tab PO Q6H MDD 8 tabs PRN (Reason: pain) Qty: 240 RF: 0 multivitamin [Daily Multi-Vitamin] Tablet 1 tab PO DAILY RF: 0 albuterol sulfate 90 mcg/actuation HFA aerosol inhaler 2 inh inhalation Q6H PRN (Reason: shortness of breath or wheezing) Qty: 8.5 RF: 5 ferrous sulfate 325 mg (65 mg iron) tablet,delayed release (DR/EC) 325 mg PO DAILY Qty: 30 RF: 5 mirtazapine 30 mg tablet 30 mg PO QPM Qty: 30 RF: 5 nitroglycerin 0.4 mg tablet, sublingual 0.4 mg sublingual DIRECTED PRN (Reason: Chest Pain) Qty: 25 RF: 1 omeprazole 20 mg capsule,delayed release(DR/EC) 20 mg PO DAILY Qty: 30 RF: 5 venlafaxine 37.5 mg capsule,extended release 24hr 37.5 mg PO DAILY 30 Days Qty: 30 RF: 5 Trelegy Ellipta 200-62.5-25 mcg blister with device 1 inh inhalation DAILY Qty: 60 RF: 5 tamsulosin 0.4 mg capsule 0.4 mg PO QPM Qty: 30 RF: 5 aspirin 81 mg tablet,delayed release (DR/EC) 81 mg PO QAM RF: 0 bumetanide 1 mg tablet 1 mg PO BID Qty: 60 RF: 0 atorvastatin 40 mg tablet 40 mg PO DAILY RF: 0 primidone 50 mg tablet 50 mg PO BID RF: 0 Changed Veltassa 8.4 g PO 3XWK Qty: 0 RF: 0 Discontinued amlodipine 5 mg tablet 5 mg PO DAILY RF: 0 doxycycline hyclate 100 mg capsule 100 mg PO BID 10 Days Qty: 20 RF: 0 Discharge Orders: Discharge Order (Routine); Ordered 12/03/21 Ordered By: Klaus Kirk/Other Patient Handouts: Preventing Pneumonia Admission Data Admit Date/Time: 11/27/21 16:59 Attending Provider: Klaus Powers Admit Provider: Miko Seth Primary Care Provider: Юлия Harvey Other Providers: [facility] ; Miko Seth ; Steve Kumar Other Interventions: Discharge Summary Assessment (RN) Last Done: 12/03/21 09:49 Coding Level of Care Code D/C DAY MANAGEMENT >30 MINS Diagnoses Sepsis A41.9 Acute encephalopathy G93.40 Colitis K52.9 Acute on chronic renal failure N17.9; N18.9 Acute renal failure type: unspecified Chronic kidney disease stage: unspecified stage Hyperkalemia E87.5 Hypomagnesemia E83.42 Chronic respiratory failure with hypoxia J96.11 GERD (gastroesophageal reflux disease) K21.9 Essential tremor G25.0 Bradypnea R06.89 Severe protein-calorie malnutrition E43 Hyponatremia E87.1 Anemia D64.9 AAA (abdominal aortic aneurysm) I71.4 Opioid dependence F11.20 CAD (coronary artery disease) I25.10 Hypertension I10 Depression F32.A
== END 2021-12-03 13:52 | disposition home health service (06) | DRG 871 ==
LOC: ED 13:27 → 2S 16:59 → SUATTDRO 16:59 → 2S 17:36 → 3W 11-30 16:27
DX: E87.5 Hyperkalemia; I71.4 Abdominal aortic aneurysm, without rupture; Z79.82 Long term (current) use of aspirin; D63.1 Anemia in chronic kidney disease; A41.9 Sepsis, unspecified organism; Z79.51 Long term (current) use of inhaled steroids; T40.2X1A Poisoning by other opioids, accidental (unintentional), initial encounter; Z95.5 Presence of coronary angioplasty implant and graft; K52.9 Noninfective gastroenteritis and colitis, unspecified; T36.3X5A Adverse effect of macrolides, initial encounter; K52.1 Toxic gastroenteritis and colitis; F32.A Depression, unspecified; E87.1 Hypo-osmolality and hyponatremia; G92.8 Other toxic encephalopathy; G89.29 Other chronic pain; R06.89 Other abnormalities of breathing; N18.4 Chronic kidney disease, stage 4 (severe); Z79.899 Other long term (current) drug therapy; Z88.1 Allergy status to other antibiotic agents; I12.9 Hypertensive chronic kidney disease with stage 1 through stage 4 chronic kidney disease, or unspecified chronic kidney disease; E83.42 Hypomagnesemia; N17.8 Other acute kidney failure; E87.6 Hypokalemia; J18.9 Pneumonia, unspecified organism; I25.10 Atherosclerotic heart disease of native coronary artery without angina pectoris; Z88.8 Allergy status to other drugs, medicaments and biological substances; I25.2 Old myocardial infarction; Z68.1 Body mass index [BMI] 19.9 or less, adult; G25.0 Essential tremor; E87.2 Acidosis; E43 Unspecified severe protein-calorie malnutrition; Z99.81 Dependence on supplemental oxygen; J96.11 Chronic respiratory failure with hypoxia; K21.9 Gastro-esophageal reflux disease without esophagitis; Z20.822 Contact with and (suspected) exposure to COVID-19; Z79.891 Long term (current) use of opiate analgesic

== ENCOUNTER 2022-02-19 14:23 | Inpatient (IN) ==
[2022-02-19] MEDS ORDERED: SODIUM CHLORIDE 0.9% 1000ML 1,000 ML IV ONE (14:32)
[2022-02-19] MEDS ORDERED: ONDANSETRON INJ 2 MG/ML 2 ML VIAL IV STA (14:32)
[2022-02-19] MEDS ORDERED: MoRPHine SULFATE 4 MG/ML 1 ML CARP\\VIAL IV PRN (14:32)
--- NOTE | 2022-02-19 14:52 | Emergency Department Note ---
Impression & Plan Pneumonia, Chronic pain, Abnormal EKG, CKD (chronic kidney disease), Overdose, Anemia ED Provider Note NAME: MEDARDO AARON AGE: 81 SEX: M : 1940 ARRIVES VIA: Ambulance INFORMANT: Patient, EMS ED PROVIDER(S): Antonio Edgar DO CHIEF COMPLAINT: Alteration in mental status HPI: Patient is a 81-year-old male who presented to the emergency department by ambulance for an evaluation of altered mental status. The patient has a history of chronic renal insufficiency. The patient does have a history of chronic pain as well. He does take chronic pain medication. The chemistry department chair was familiar with the patient. The patient has a history of renal insufficiency and has had accumulation of his opiate medication at times which causes him to present similar to today. The patient was obtunded and hypotensive. The prehospital personnel called to see if I would recommend Narcan. The patient was treated with 0.2 mg of Narcan prior to arrival. Upon arrival to the emergency department he was awake and alert. He appears to have very severe pain and difficulty breathing at this time. The patient states he has had abdominal pain ongoing. He denies having any recent trauma. He denies having any vomiting. He denies having any black or bloody bowel moods. He does complain of chest pain as well as difficulty breathing. He had no reported fever. ROS: See above HPI for pertinent positives & negatives. A total of 10 systems reviewed and were otherwise negative. PAST MEDICAL HISTORY: See Below PAST SURGICAL HISTORY: See Below FAMILY HISTORY: See Below SOCIAL HISTORY: See Below HOME MEDICATIONS: See Below ALLERGIES: See Below VITALS: See Below PHYSICAL EXAMINATION: GENERAL: The patient is awake and alert. He is very anxious appearing and appears to be in severe pain. He is very cachectic appearing. EYES: The conjunctivae are clear. The pupils are round and reactive. EARS, NOSE, MOUTH AND THROAT: The nose is without any evidence of any deformity. Mucous membranes are dry. NECK: The neck is nontender and supple. RESPIRATORY: Shallow respirations were noted. Diminished breath sounds are noted throughout. There were scattered rhonchi throughout. CARDIOVASCULAR: Regular rate and rhythm noted there no murmurs rubs or gallops normal S1 normal S2. GASTROINTESTINAL: The abdomen was soft. There is diffuse tenderness to palpation but no guarding rigidity. MUSCULOSKELETAL/EXTREMITIES: There is no evidence of gross deformity full range of motion is noted in the hips and shoulders. SKIN: Pedal edema was noted bilaterally. NEUROLOGIC: The patient is awake alert and oriented x3. He is moving all extremities well. MEDICAL DECISION MAKING: The patient is a 81-year-old male who presented to the emergency department for an evaluation of altered mental status. The patient was evaluated on scene by the prehospital personnel. The chemistry department chair was familiar with the patient and knows that he has a history of chronic pain medication use because of chronic abdominal pain. The patient also has a history of chronic renal insufficiency and will sometimes accumulate too much to his pain medication. When they arrived on scene the patient was having periods of apnea and was in respiratory distress. He was treated with a small dose of Narcan prior to arrival. Upon arrival the patient was awake and alert but had significant trouble breathing and had abdominal pain. I would wonder if this is secondary to withdrawal or if it is the underlying chronic condition that the patient suffers from. I discussed the patient's laboratory and radiographic studies with him. I do not feel the patient is safe to be discharged home at this time. He may require further inpatient management as well as further evaluation of all his medical conditions to further determine course of action. For this reason I discussed his case with the on-call [facility]. Triage Nursing notes reviewed. Prior medical records reviewed Vital Signs: reviewed and remarkable for elevated blood pressure and hypoxia. Differential diagnosis: Infection, hypoglycemia, electrolyte abnormalities, overdose, toxicologic, cardiac sources, intracerebral event, neurologic, trauma, as well as other pathologies. ER treatment provided: See below Diagnostics interpreted by me: ECG: EKG was obtained in the emergency department. My interpretation is sinus tachycardia 111 bpm. PACs were noted. Inferior and lateral ST depressions with T wave abnormalities were noted. This was compared to a tracing from November 27, 2021. The ischemic changes are new compared to earlier tracing. Cardiac Monitoring: An order was placed for continuous cardiac monitoring. The monitor shows a rate of 86 bpm with sinus rhythm. Laboratory studies: As stated above and show below. Imaging studies: See below Consultation(s): I discussed this case with Dr. Gonzalez who is on-call for the [facility] group. ED COURSE: Procedures: none Critical Care: I have personally spent greater than 55 minutes of critical care time in the direct management of this patient. This includes bedside care, interpretation of diagnostic studies, and testing, discussion with consultants, patient, and family members, and other required patient management activities. This 55 minutes is in excess of all separately billable procedures. Past Med/Surg History Medical History AAA (abdominal aortic aneurysm) Acute hypoxemic respiratory failure Acute on chronic renal failure Anemia of chronic disease Anxiety Bilateral pleural effusion CAD (coronary artery disease) PTCA with stent of RCA 1994 Chronic kidney disease, stage 4 (severe) Chronic pain Chronic renal insufficiency 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 exacerbation Essential tremor GERD (gastroesophageal reflux disease) Hyperkalemia Hyperlipidemia LDL goal <70 Hyperphosphatemia Hypertension Hypomagnesemia Lower urinary tract symptoms (LUTS) Multiple rib fractures Opioid dependence treated with opiates for chronic low back pain for 10+ years Septal myocardial infarction SOB (shortness of breath) Tobacco abuse counseling Vitamin B12 deficiency Surgical History H/O heart artery stent (~1994) Family History Denies family history of Ovarian cancer Prostate cancer Myocardial infarction Breast cancer Colorectal cancer Social History Smoking Status: Current some day smoker Tobacco Type: Cigarettes Cigarettes Per Day: 10; Second Hand Exposure: No; Hx Alcohol Use: No Hx Substance Use: No Preferred Language: Cypriot Communication Ability: Effective Visual Impairment: No Limitations Hearing Ability: Normal Landscaping Crew Leader Required: No Beliefs That Will Affect Care: None marital status: Current Living Situation: Alone Current Living Situation Comment: Alone at home in apartment after of in March current occupational status: 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 many Children do You have: 2 Feels Safe at Home: Yes Childhood Exposure to Second-Hand Smoke: Yes Dental Care, Regularly: No Physical Activity Frequency: Does not Exercise Seatbelt Use: always Sunscreen Use: No (doesn't really go outside ) Assistive Devices: None Allergies Allergies Allergy/AdvReac Type Severity Reaction Status Date / Time cefuroxime Allergy Intermediate rash Verified 02/19/22 15:49 lisinopril Allergy Mild itching Verified 02/19/22 15:49 Home Meds Home Medications Medication Instructions Recorded Confirmed aspirin 81 mg tablet,delayed 81 mg PO QAM 05/06/19 02/19/22 release multivitamin (Daily Multi-Vitamin) 1 tab PO DAILY 05/28/21 02/19/22 patiromer calcium sorbitex 8.4 8.4 g PO UD 02/19/22 02/19/22 gram oral powder packet (Veltassa) Previous Rx's Medication Instructions Recorded albuterol sulfate 90 mcg/actuation 2 inh INHALATION Q6H PRN #8.5 g 09/17/21 aerosol inhaler ferrous sulfate 325 mg (65 mg 325 mg PO DAILY #30 tab 09/17/21 iron) tablet,delayed release fluticasone fur. 200 mcg-umeclid 1 inh INHALATION DAILY #60 ea 09/17/21 62.5 mcg-vilant 25 mcg inhalat.powder (Trelegy Ellipta) mirtazapine 30 mg tablet 30 mg PO QPM #30 tab 09/17/21 nitroglycerin 0.4 mg sublingual 0.4 mg SUBLINGUAL DIRECTED PRN 09/17/21 tablet #25 tab tamsulosin 0.4 mg capsule 0.4 mg PO QPM #30 cap 09/17/21 venlafaxine 37.5 mg 37.5 mg PO DAILY 30 Days #30 cap 09/17/21 capsule,extended release 24 hr diltiazem HCl 120 mg 120 mg PO DAILY #90 cap 10/26/21 capsule,extended release 24 hr ondansetron HCl 4 mg tablet 4 mg PO Q6H PRN #30 tab 11/12/21 Lactobacillus acidoph-L.bulgaricus 1 tab PO DAILY #30 tab 12/06/21 1 million cell tablet (Floranex) darbepoetin paulette in polysorbat 40 40 mcg SUBCUT .q 2 weeks #1 ml 12/23/21 mcg/mL in polysorbate injection omeprazole 40 mg capsule,delayed 40 mg PO DAILY #90 cap 01/12/22 release bumetanide 1 mg tablet 1 mg PO DAILY #30 tab 01/15/22 lorazepam 0.5 mg tablet 0.5 mg PO TID PRN #90 tab 01/19/22 hydrochlorothiazide 25 mg tablet 25 mg PO DAILY #90 tab 01/31/22 metoprolol succinate 50 mg 100 mg PO DAILY 30 Days #60 tab 01/31/22 tablet,extended release 24 hr hydrocodone 10 mg-acetaminophen 2 tab PO Q6H PRN #240 tab MDD 8 02/14/22 325 mg tablet tabs Results & Data (ED) Vital Signs Vital Signs - 24 hr 02/19/22 14:45 02/19/22 14:55 02/19/22 15:02 Temperature 36.6 C Temperature Source Axillary Pulse Rate 106 H 99 H Pulse Rate [Right Finger] Pulse Strength Normal Pulse Strength [Right Finger] Respiratory Rate 28 H 19 18 Respiratory Effort / Characteristics Accessory Muscle Use Accessory Muscle Use Non-Labored Spontaneous Respiratory Depth Deep Respiratory Pattern Blood Pressure [Right Arm] Blood Pressure Mean [Right Arm] Blood Pressure Position Lying Blood Pressure Position [Right Arm] Pulse Oximetry 99 99 95 Oxygen Delivery Method Nasal Cannula Nasal Cannula Nasal Cannula Oxygen Flow Rate 6 6 6 Sepsis Recent Fever Within 48 Hours No Sepsis New/Unexplained Change in Mental Status Yes Sepsis Action Taken by Nursing Physician Notified 02/19/22 15:04 02/19/22 15:49 02/19/22 15:55 Temperature Temperature Source Pulse Rate Pulse Rate [Right Finger] 93 H 86 Pulse Strength Pulse Strength [Right Finger] Normal Respiratory Rate 14 20 Respiratory Effort / Characteristics Non-Labored Spontaneous Non-Labored Spontaneous Respiratory Depth Normal Normal Respiratory Pattern Regular Regular Blood Pressure [Right Arm] 170/80 H 146/78 H Blood Pressure Mean [Right Arm] 110 100 Blood Pressure Position Blood Pressure Position [Right Arm] Lying Sitting Pulse Oximetry 97 100 100 Oxygen Delivery Method Nasal Cannula Nasal Cannula Nasal Cannula Oxygen Flow Rate 6 6 6 Sepsis Recent Fever Within 48 Hours Sepsis New/Unexplained Change in Mental Status Sepsis Action Taken by Assisted Medications Current Medication List: was personally reviewed by me Laboratory Data Attestation: I reviewed the patient's lab results. Result diagrams: 02/19/22 14:40 02/19/22 14:40 Lab Results 02/19/22 02/19/22 02/19/22 Range/Units 14:40 14:40 14:40 WBC 13.34 H (4.8-10.8) K/uL RBC 2.49 L (4.7-6.1) M/uL Hgb 7.9 L (14.0-18.0) g/dL Hct 26.7 L (42-52) % MCV 107.2 H (80-100) fL MCH 31.7 (25-34) pg MCHC 29.6 L (32-36) g/dL Plt Count 466 H (130-400) K/uL Immature Gran % (Auto) 0.6 % Neut % (Auto) 87.8 % Lymph % (Auto) 7.5 % [place] % (Auto) 3.7 % Eos % (Auto) 0.2 % Baso % (Auto) 0.2 % Neut # (Auto) 11.71 H (1.4-6.5) K/uL Lymph # (Auto) 1.00 L (1.2-3.4) K/uL [place] # (Auto) 0.49 (0.11-0.59) K/uL Eos # (Auto) 0.03 (0-0.5) K/uL Baso # (Auto) 0.03 (0-0.2) K/uL Immature Gran # (Auto) 0.08 H (0.00-0.02) K/uL Basophilic Stippling 1+ ESR 73 H (0-20) mm/hr PT 10.9 (9.0-12.0) Seconds INR 1.0 (0.9-1.1) APTT 27.6 (21.0-31.0) Seconds PTT Ratio 1.0 Sodium (136-145) mmol/L Potassium (3.5-5.1) mmol/L Chloride (98-107) mmol/L Carbon Dioxide (21-32) mmol/L Anion Gap (3-11) BUN (6-23) mg/dl Creatinine (0.6-1.4) mg/dl Est Cr Clr Drug Dosing ml/min Est GFR ( Amer) ml/min Est GFR (Non-Af Amer) ml/min BUN/Creatinine Ratio (10-20) Glucose (70-99(Fasting)) mg/dl POC Glucose (70-99) mg/dl Lactate (0.4-2.0) mmol/L Calcium (8.5-10.1) mg/dl Magnesium (1.7-2.4) mg/dl Total Bilirubin (0.2-1.0) mg/dl AST (13-39) U/L ALT (7-52) U/L Alkaline Phosphatase (34-104) U/L Troponin I High Sens (0-20) pg/ml C-Reactive Protein (0-0.5) mg/dl Total Protein (6.0-8.3) gm/dl Albumin (3.4-5.0) gm/dl Globulin (2.5-4.0) gm/dl Albumin/Globulin Ratio (0.9-2) SARS-CoV-2, RNA, NAAT (NEGATIVE) 02/19/22 02/19/22 02/19/22 Range/Units 14:40 14:40 15:00 WBC (4.8-10.8) K/uL RBC (4.7-6.1) M/uL Hgb (14.0-18.0) g/dL Hct (42-52) % MCV (80-100) fL MCH (25-34) pg MCHC (32-36) g/dL Plt Count (130-400) K/uL Immature Gran % (Auto) % Neut % (Auto) % Lymph % (Auto) % [place] % (Auto) % Eos % (Auto) % Baso % (Auto) % Neut # (Auto) (1.4-6.5) K/uL Lymph # (Auto) (1.2-3.4) K/uL [place] # (Auto) (0.11-0.59) K/uL Eos # (Auto) (0-0.5) K/uL Baso # (Auto) (0-0.2) K/uL Immature Gran # (Auto) (0.00-0.02) K/uL Basophilic Stippling ESR (0-20) mm/hr PT (9.0-12.0) Seconds INR (0.9-1.1) APTT (21.0-31.0) Seconds PTT Ratio Sodium 137 (136-145) mmol/L Potassium 4.9 (3.5-5.1) mmol/L Chloride 102 (98-107) mmol/L Carbon Dioxide 26 (21-32) mmol/L Anion Gap 9 (3-11) BUN 84 H (6-23) mg/dl Creatinine 3.85 H (0.6-1.4) mg/dl Est Cr Clr Drug Dosing 12.8 ml/min Est GFR ( Amer) 16.2 ml/min Est GFR (Non-Af Amer) 14.0 ml/min BUN/Creatinine Ratio 21.8 H (10-20) Glucose 97 (70-99(Fasting)) mg/dl POC Glucose (70-99) mg/dl Lactate 1.2 (0.4-2.0) mmol/L Calcium 8.8 (8.5-10.1) mg/dl Magnesium 1.4 L (1.7-2.4) mg/dl Total Bilirubin 0.2 (0.2-1.0) mg/dl AST 9 L (13-39) U/L ALT 9 (7-52) U/L Alkaline Phosphatase 53 (34-104) U/L Troponin I High Sens 66.2 H* (0-20) pg/ml C-Reactive Protein 9.51 H (0-0.5) mg/dl Total Protein 7.8 (6.0-8.3) gm/dl Albumin 3.2 L (3.4-5.0) gm/dl Globulin 4.6 H (2.5-4.0) gm/dl Albumin/Globulin Ratio 0.7 L (0.9-2) SARS-CoV-2, RNA, NAAT NEGATIVE (NEGATIVE) 02/19/22 Range/Units 15:47 WBC (4.8-10.8) K/uL RBC (4.7-6.1) M/uL Hgb (14.0-18.0) g/dL Hct (42-52) % MCV (80-100) fL MCH (25-34) pg MCHC (32-36) g/dL Plt Count (130-400) K/uL Immature Gran % (Auto) % Neut % (Auto) % Lymph % (Auto) % [place] % (Auto) % Eos % (Auto) % Baso % (Auto) % Neut # (Auto) (1.4-6.5) K/uL Lymph # (Auto) (1.2-3.4) K/uL [place] # (Auto) (0.11-0.59) K/uL Eos # (Auto) (0-0.5) K/uL Baso # (Auto) (0-0.2) K/uL Immature Gran # (Auto) (0.00-0.02) K/uL Basophilic Stippling ESR (0-20) mm/hr PT (9.0-12.0) Seconds INR (0.9-1.1) APTT (21.0-31.0) Seconds PTT Ratio Sodium (136-145) mmol/L Potassium (3.5-5.1) mmol/L Chloride (98-107) mmol/L Carbon Dioxide (21-32) mmol/L Anion Gap (3-11) BUN (6-23) mg/dl Creatinine (0.6-1.4) mg/dl Est Cr Clr Drug Dosing ml/min Est GFR ( Amer) ml/min Est GFR (Non-Af Amer) ml/min BUN/Creatinine Ratio (10-20) Glucose (70-99(Fasting)) mg/dl POC Glucose 110 H (70-99) mg/dl Lactate (0.4-2.0) mmol/L Calcium (8.5-10.1) mg/dl Magnesium (1.7-2.4) mg/dl Total Bilirubin (0.2-1.0) mg/dl AST (13-39) U/L ALT (7-52) U/L Alkaline Phosphatase (34-104) U/L Troponin I High Sens (0-20) pg/ml C-Reactive Protein (0-0.5) mg/dl Total Protein (6.0-8.3) gm/dl Albumin (3.4-5.0) gm/dl Globulin (2.5-4.0) gm/dl Albumin/Globulin Ratio (0.9-2) SARS-CoV-2, RNA, NAAT (NEGATIVE) Administered Medications Morphine Sulfate (Morphine Sulfate 4 Mg/Ml 1 Ml Carp\Vial) 4 mg IV Q1H PRN PRN Reason: Pain Stop: 03/05/22 14:31 Last Admin: 02/19/22 14:59 Dose: 4 mg Documented by: [id number] Discontinued Medications Sodium Chloride (Nss 1000ml) 1,000 mls @ 999 mls/hr IV .Q1H1M ONE Stop: 02/19/22 15:32 Last Infusion: 02/19/22 16:27 Dose: 0 mls/hr Documented by: [id number] Admin: 02/19/22 15:12 Dose: 999 mls/hr Documented by: [id number] Ondansetron HCl (Ondansetron Inj 2 Mg/Ml 2 Ml Vial) 4 mg IV NOW STA Stop: 02/19/22 14:33 Last Admin: 02/19/22 15:00 Dose: 4 mg Documented by: [id number] Imaging Data Radiologist's Impression: Abdomen/Pelvis CT 02/19/22 14:32 CT OF THE ABDOMEN AND PELVIS WITHOUT CONTRAST CLINICAL HISTORY: Abdominal pain. COMPARISON STUDY: CT of the abdomen and pelvis November 27, 2021. TECHNIQUE: Axial images of the abdomen and pelvis were obtained without IV contrast. Images were reviewed in the axial, sagittal, and coronal planes. Automated exposure control was utilized for the study. A dose lowering technique was utilized adhering to the principles of ALARA. FINDINGS: Dilatation of the central pulmonary arteries suggest pulmonary arterial hypertension. There is decreased attenuation of the cardiac blood pool. A loculated moderate size right pleural effusion has increased in size since chest CT of November 27, 2021. This is partially imaged on this exam. Extensive right lower lobe and right middle lobe airspace opacity is noted with volume loss. This favors round atelectasis. Patchy airspace opacities within the left l ower lung are present. There is emphysema. There may also be interstitial pulmonary edema. A small left pleural effusion is noted. No pneumatosis, free air or portal venous gas is present. Evaluation of the abdomen is suboptimal given lack of contrast and paucity of intra-abdominal fat. Aneurysmal dilatation of the abdominal aorta, measuring approximately 5 cm, is similar to exam of November 27, 2021. There is extensive atherosclerotic plaque. Aneurysmal dilatation of the bilateral common iliac arteries, left greater than right, is also unchanged. Left common iliac artery measures approximately 2.9 cm. There is no evidence for rupture. Adjacent soft tissue thickening is unchanged. Unenhanced images of the liver, spleen, adrenal glands, kidneys and pancreas are normal. No hydronephrosis. There is no biliary or pancreatic ductal dilatation. No peripancreatic infiltration. No evidence for a bowel obstruction. There is no abdominal or pelvic lymphadenopathy. No acute fracture or suspicious lesion within the bony structures is identified. Bladder is moderately distended. IMPRESSION: 1. No acute process within the abdomen or pelvis on unenhanced exam. No bowel obstruction. 2. Technically difficult study to interpret given paucity of intra-abdominal fat and lack of contrast. 3. No significant change in the infrarenal abdominal aortic aneurysm and the bilateral common iliac artery aneurysms, left larger than right. 4. Increase in size of a moderate-sized loculated right pleural effusion, partially imaged on this exam. Right middle and lower lobe airspace opacities with volume loss. These favor atelectasis. 5. Small left pleural effusion. Body wall edema. Findings suggesting anasarca. 6. Patchy left lower lung opacities which favor an infectious process. ACT 112: Negative or not required by law. Electronically signed by: Kyree Harvey M.D. 02/19/2022 4:42 PM Chest X-Ray 02/19/22 14:32 XR chest 1V portable CLINICAL HISTORY: SEPSIS COMPARISON STUDY: Chest radiograph November 27, 2021. Chest CT August 14, 2021. FINDINGS: Emphysema is noted. There is no pneumothorax. Right pleural effusion is increased in size. Right basilar opacity has increased. Interstitial thickening suggests mild pulmonary edema. Cardiomegaly is again noted. IMPRESSION: 1. Increase in size of a moderate right pleural effusion. Right basilar opacity could reflect pneumonia or atelectasis. Radiographic follow-up is recommended. 2. Cardiomegaly. Suspected mild pulmonary edema. ACT 112: Negative or not required by law. Electronically signed by: Kyree Harvey M.D. 02/19/2022 4:[address] 02/19/22 14:32 CT OF THE HEAD WITHOUT CONTRAST CLINICAL HISTORY: Altered mental status. COMPARISON STUDY: Head CT November 27, 2021. CT DOSE: 926.10 mGy.cm TECHNIQUE: Helical axial images of the head were obtained without IV contrast. Automated exposure control was utilized for the study. A dose lowering technique was utilized adhering to the principles of ALARA. FINDINGS: No acute intracranial hemorrhage, midline shift or mass effect is present. A 6 mm hypodensity within the left caudate is new since CT of November 27, 2021. Otherwise, the appearance of the brain is unchanged. The ventricular system is unremarkable. The basal cisterns are patent. No extra-axial collections are present. There are no findings to suggest acute dural sinus thrombosis or acute territorial infarct. No significant calvarial abnormalities are present. Visualized portions of the sinuses and mastoid air cells are clear. IMPRESSION: 1. No acute intracranial hemorrhage or mass effect. 2. 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 This is new since CT of November 27, 2021. Otherwise, unchanged appearance of the brain. ACT 112: Negative or not required by law. Electronically signed by: Kyree Harvey M.D. 02/19/2022 4:02 PM Discharge Plan Visit Data Chief Complaint: Altered Mental Status ED Provider: Antonio Edgar Discharge Problem: Pneumonia, Chronic pain, Abnormal EKG, CKD (chronic kidney disease), Overdose, Anemia Patient Disposition: Being Evaluated by Hospitalist Forms Stand Alone Forms: [facility] Prescriptions Prescriptions: No Action diltiazem HCl 120 mg capsule,extended release 24hr 120 mg PO DAILY Qty: 90 RF: 3 ondansetron HCl 4 mg tablet 4 mg PO Q6H PRN (Reason: nausea and vomiting) Qty: 30 RF: 0 Lactobacillus acidoph-L.bulgar [Floranex] 1 million cell tablet 1 tab PO DAILY Qty: 30 RF: 0 Aranesp (in polysorbate) 40 mcg/mL solution 40 mcg subcut .q 2 weeks Qty: 1 RF: 0 omeprazole 40 mg capsule,delayed release(DR/EC) 40 mg PO DAILY Qty: 90 RF: 3 bumetanide 1 mg tablet 1 mg PO DAILY Qty: 30 RF: 5 lorazepam 0.5 mg tablet 0.5 mg PO TID PRN (Reason: anxiety) Qty: 90 RF: 0 metoprolol succinate 50 mg tablet extended release 24 hr 100 mg PO DAILY 30 Days Qty: 60 RF: 5 hydrochlorothiazide 25 mg tablet 25 mg PO DAILY Qty: 90 RF: 3 hydrocodone-acetaminophen 10-325 mg tablet 2 tab PO Q6H MDD 8 tabs PRN (Reason: pain) Qty: 240 RF: 0 multivitamin [Daily Multi-Vitamin] Tablet 1 tab PO DAILY RF: 0 albuterol sulfate 90 mcg/actuation HFA aerosol inhaler 2 inh inhalation Q6H PRN (Reason: shortness of breath or wheezing) Qty: 8.5 RF: 5 ferrous sulfate 325 mg (65 mg iron) tablet,delayed release (DR/EC) 325 mg PO DAILY Qty: 30 RF: 5 mirtazapine 30 mg tablet 30 mg PO QPM Qty: 30 RF: 5 nitroglycerin 0.4 mg tablet, sublingual 0.4 mg sublingual DIRECTED PRN (Reason: Chest Pain) Qty: 25 RF: 1 venlafaxine 37.5 mg capsule,extended release 24hr 37.5 mg PO DAILY 30 Days Qty: 30 RF: 5 Trelegy Ellipta 200-62.5-25 mcg blister with device 1 inh inhalation DAILY Qty: 60 RF: 5 tamsulosin 0.4 mg capsule 0.4 mg PO QPM Qty: 30 RF: 5 aspirin 81 mg tablet,delayed release (DR/EC) 81 mg PO QAM RF: 0 Veltassa 8.4 gram powder in packet 8.4 g PO UD RF: 0 Referrals Referrals: Юлия Harvey MD [Primary Care Provider] -
[2022-02-19 15:24] LABS: Albumin Globulin Ratio 0.7 (0.9-2); Albumin Level 3.2 gm/dl (3.4-5.0); BUN Creatinine Ratio 21.8 (10-20); Bilirubin,Total 0.2 mg/dl (0.2-1.0); C Reactive Protein 9.51 mg/dl (0-0.5); Calcium 8.8 mg/dl (8.5-10.1); Creatinine Clr Calc Pharmacy 12.8 ml/min; Est GFR (African American) 16.2 ml/min; Globulin 4.6 gm/dl (2.5-4.0); Magnesium 1.4 mg/dl (1.7-2.4); Potassium 4.9 mmol/L (3.5-5.1); Total Protein 7.8 gm/dl (6.0-8.3)
[2022-02-19 15:25] LABS: Partial Thromboplastin Time 27.6 Seconds (21.0-31.0); Prothrombin Time 10.9 Seconds (9.0-12.0)
[2022-02-19 15:54] LABS: Basophilic Stippling 1+; Basophils # (auto) 0.03 K/uL (0-0.2); Basophils % (auto) 0.2 %; Eosinophils # (auto) 0.03 K/uL (0-0.5); Eosinophils % (auto) 0.2 %; Hematocrit (blood only) 26.7 % (42-52); Hemoglobin 7.9 g/dL (14.0-18.0); Immature Granulocytes # (auto) 0.08 K/uL (0.00-0.02); Immature Granulocytes % (auto) 0.6 %; Lymphocytes % (auto) 7.5 %; Mean Corpuscular Hemoglobin 31.7 pg (25-34); Mean Corpuscular Hgb Conc 29.6 g/dL (32-36); Mean Corpuscular Volume 107.2 fL (80-100); Monocytes # (auto) 0.49 K/uL (0.11-0.59); Monocytes % (auto) 3.7 %; Neutrophils # (auto) 11.71 K/uL (1.4-6.5); Neutrophils % (auto) 87.8 %; Platelet Count 466 K/uL (130-400); Red Blood Count 2.49 M/uL (4.7-6.1); White Blood Count 13.34 K/uL (4.8-10.8)
--- NOTE | 2022-02-19 16:05 | CT Scan Report ---
CT OF THE HEAD WITHOUT CONTRAST CLINICAL HISTORY: Altered mental status. COMPARISON STUDY: Head CT November 27, 2021. CT DOSE: 926.10 mGy.cm TECHNIQUE: Helical axial images of the head were obtained without IV contrast. Automated exposure con trol was utilized for the study. A dose lowering technique was utilized adhering to the principles o f ALARA. FINDINGS: No acute intracranial hemorrhage, midline shift or mass effect is present. A 6 mm hypodensi ty within the left caudate is new since CT of November 27, 2021. Otherwise, the appearance of the bra in is unchanged. The ventricular system is unremarkable. The basal cisterns are patent. No extra-axia l collections are present. There are no findings to suggest acute dural sinus thrombosis or acute ter ritorial infarct. No significant calvarial abnormalities are present. Visualized portions of the sinu ses and mastoid air cells are clear. IMPRESSION: 1. No acute intracranial hemorrhage or mass effect. 2. 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 This is new since CT of 2021. Otherwise, unchanged appearance of the brain. ACT 112: Negative or not required by law. Electronically signed by: Kyree Harvey M.D. 02/19/2022 4:02 PM
--- NOTE | 2022-02-19 16:19 | XRay Report ---
XR chest 1V portable CLINICAL HISTORY: SEPSIS COMPARISON STUDY: Chest radiograph November 27, 2021. Chest CT August 14, 2021. FINDINGS: Emphysema is noted. There is no pneumothorax. Right pleural effusion is increased in size. Right basilar opacity has increased. Interstitial thickening suggests mild pulmonary edema. Cardiomeg virgen is again noted. IMPRESSION: 1. Increase in size of a moderate right pleural effusion. Right basilar opacity could reflect pneumon ia or atelectasis. Radiographic follow-up is recommended. 2. Cardiomegaly. Suspected mild pulmonary edema. ACT 112: Negative or not required by law. Electronically signed by: Kyree Harvey M.D. 02/19/2022 4:17 PM
[2022-02-19 16:24] LABS: Troponin I High Sensitivity 66.2 pg/ml (0-20)
--- NOTE | 2022-02-19 16:44 | CT Scan Report ---
CT OF THE ABDOMEN AND PELVIS WITHOUT CONTRAST CLINICAL HISTORY: Abdominal pain. COMPARISON STUDY: CT of the abdomen and pelvis November 27, 2021. TECHNIQUE: Axial images of the abdomen and pelvis were obtained without IV contrast. Images were revi ewed in the axial, sagittal, and coronal planes. Automated exposure control was utilized for the judith dy. A dose lowering technique was utilized adhering to the principles of ALARA. FINDINGS: Dilatation of the central pulmonary arteries suggest pulmonary arterial hypertension. There is decreased attenuation of the cardiac blood pool. A loculated moderate size right pleural effusion has increased in size since chest CT of November 27, 2021. This is partially imaged on this exam. Ex tensive right lower lobe and right middle lobe airspace opacity is noted with volume loss. This favor s round atelectasis. Patchy airspace opacities within the left lower lung are present. There is emphy sema. There may also be interstitial pulmonary edema. A small left pleural effusion is noted. No pneu matosis, free air or portal venous gas is present. Evaluation of the abdomen is suboptimal given lack of contrast and paucity of intra-abdominal fat. Aneurysmal dilatation of the abdominal aorta, measur ing approximately 5 cm, is similar to exam of November 27, 2021. There is extensive atherosclerotic p laque. Aneurysmal dilatation of the bilateral common iliac arteries, left greater than right, is also unchanged. Left common iliac artery measures approximately 2.9 cm. There is no evidence for rupture. Adjacent soft tissue thickening is unchanged. Unenhanced images of the liver, spleen, adrenal glands , kidneys and pancreas are normal. No hydronephrosis. There is no biliary or pancreatic ductal dilatation. No peripancreatic infiltratio n. No evidence for a bowel obstruction. There is no abdominal or pelvic lymphadenopathy. No acute fra cture or suspicious lesion within the bony structures is identified. Bladder is moderately distended. IMPRESSION: 1. No acute process within the abdomen or pelvis on unenhanced exam. No bowel obstruction. 2. Technically difficult study to interpret given paucity of intra-abdominal fat and lack of contrast . 3. No significant change in the infrarenal abdominal aortic aneurysm and the bilateral common iliac a rtery aneurysms, left larger than right. 4. Increase in size of a moderate-sized loculated right pleural effusion, partially imaged on this ex am. Right middle and lower lobe airspace opacities with volume loss. These favor atelectasis. 5. Small left pleural effusion. Body wall edema. Findings suggesting anasarca. 6. Patchy left lower lung opacities which favor an infectious process. ACT 112: Negative or not required by law. Electronically signed by: Kyree Harvey M.D. 02/19/2022 4:42 PM
[2022-02-19] MEDS ORDERED: PIPERACILLIN/TAZOBACTAM 4.5 GM/120 ML BAG IV ONE (16:47)
[2022-02-19] MEDS ORDERED: PIPERACILL/TAZOBAC CONSULT ACTIVE PRN ×2 (16:47→20:12)
--- NOTE | 2022-02-19 17:59 | History & Physical Report ---
Date of Service February 19, 2022 Assessment & Plan (1) Pneumonia: Plan: Patient presents to the hospital with difficulty breathing and altered mental status. Chest x-ray was done which showed evidence of moderate pleural effusion and also lobar infiltrates consistent with pneumonia. Patient was discharged from this hospital November 30, 2021 after being treated for pneumonia. Blood cultures have been obtained. Will start empiric IV Zosyn and Zyvox Will avoid vancomycin in view of tenuous renal function (2) Chronic pain: Plan: Patient takes chronic opiates at home, however given his acute encephalopathy which improved after Narcan, will hold off on resuming his home medications (3) Chronic kidney disease, stage 4 (severe): Plan: Worsening renal function compared to the last time he was in the hospital. During his last admission, patient declined hemodialysis He is significantly fluid overloaded, on p.o. Bumex at home, will hold. Will start IV Bumex 2 mg And albumin Will consult nephrology Avoid nephrotoxins (4) Acute on chronic respiratory failure with hypoxia: Plan: Most likely a combination of opiate overdose and also pneumonia Will wean as tolerated, patient currently on oxygen through nasal cannula (5) Debilitated: Plan: Patient lives at home, although he has a home health travel ot who comes once in a while He is significantly debilitated (6) Severe protein-calorie malnutrition: Plan: Patient looks very thin and cachectic Nutritional consult Nutritional supplements TID (7) Hypertension: Plan: Blood pressure under good control Will hold hydrochlorothiazide for now in view of worsening renal function (8) AAA (abdominal aortic aneurysm): Plan: stable Plan: Continue hospitalization Patient may need/hospice During his last admission he refused hospice History of Present Illness Chief Complaint: Altered Mental status Primary Care Provider: Юлия Harvey MD This is a 81-year-old male with a history of CKD stage V, chronic pain on opiates, failure to thrive, hypertension, who was brought to the hospital by ambulance on account of altered mental status. In route to the hospital, patient was given 0.2 mg of Narcan and he became a little more awake and alert. When I saw him in the emergency department, he was awake alert oriented but very lethargic. He said the reason he was brought to the hospital was because he was having difficulty breathing. He says he lives by himself and usually gets a home health aide which comes to help him every day. Of note, patient was discharged from this hospital on December 02, 2021 after he was treated for failure to thrive, colitis, pneumonia. During that admission, patient declined hemodialysis. To the emergency department, serum creatinine was 3.85 compared to 3.16 upon discharge on December 03, 2021. Chest x-ray showed evidence of moderate sized right pleural effusion and also right basilar opacity compatible with pneumonia. CT scan of the head did not show any acute pathology, CT abdomen and pelvis did not show any significant change in his known infrarenal abdominal aortic aneurysm. Blood cultures have been obtained, patient has been evaluated on IV antibiotics He will be admitted to the hospital for further investigation and further management. Allergies Allergy/AdvReac Type Severity Reaction Status Date / Time cefuroxime Allergy Intermediate rash Verified 02/19/22 15:49 lisinopril Allergy Mild itching Verified 02/19/22 15:49 Home Medications Medication Instructions Recorded Confirmed Type aspirin 81 mg tablet,delayed 81 mg PO QAM 05/06/19 02/19/22 History release multivitamin (Daily Multi-Vitamin) 1 tab PO DAILY 05/28/21 02/19/22 History albuterol sulfate 90 mcg/actuation 2 inh INHALATION Q6H PRN #8.5 g 09/17/21 02/19/22 Rx aerosol inhaler ferrous sulfate 325 mg (65 mg 325 mg PO DAILY #30 tab 09/17/21 02/19/22 Rx iron) tablet,delayed release fluticasone fur. 200 mcg-umeclid 1 inh INHALATION DAILY #60 ea 09/17/21 02/19/22 Rx 62.5 mcg-vilant 25 mcg inhalat.powder (Trelegy Ellipta) mirtazapine 30 mg tablet 30 mg PO QPM #30 tab 09/17/21 02/19/22 Rx nitroglycerin 0.4 mg sublingual 0.4 mg SUBLINGUAL DIRECTED PRN 09/17/21 02/19/22 Rx tablet #25 tab tamsulosin 0.4 mg capsule 0.4 mg PO QPM #30 cap 09/17/21 02/19/22 Rx venlafaxine 37.5 mg 37.5 mg PO DAILY 30 Days #30 cap 09/17/21 02/19/22 Rx capsule,extended release 24 hr diltiazem HCl 120 mg 120 mg PO DAILY #90 cap 10/26/21 02/19/22 Rx capsule,extended release 24 hr ondansetron HCl 4 mg tablet 4 mg PO Q6H PRN #30 tab 11/12/21 02/19/22 Rx Lactobacillus acidoph-L.bulgaricus 1 tab PO DAILY #30 tab 12/06/21 02/19/22 Rx 1 million cell tablet (Floranex) darbepoetin paulette in polysorbat 40 40 mcg SUBCUT .q 2 weeks #1 ml 12/23/21 02/19/22 Rx mcg/mL in polysorbate injection omeprazole 40 mg capsule,delayed 40 mg PO DAILY #90 cap 01/12/22 02/19/22 Rx release bumetanide 1 mg tablet 1 mg PO DAILY #30 tab 01/15/22 02/19/22 Rx lorazepam 0.5 mg tablet 0.5 mg PO TID PRN #90 tab 01/19/22 02/19/22 Rx hydrochlorothiazide 25 mg tablet 25 mg PO DAILY #90 tab 01/31/22 02/19/22 Rx metoprolol succinate 50 mg 100 mg PO DAILY 30 Days #60 tab 01/31/22 02/19/22 Rx tablet,extended release 24 hr hydrocodone 10 mg-acetaminophen 2 tab PO Q6H PRN #240 tab MDD 8 02/14/22 02/19/22 Rx 325 mg tablet tabs patiromer calcium sorbitex 8.4 8.4 g PO UD 02/19/22 02/19/22 History gram oral powder packet ([place]) Past Med/Surg History Medical History AAA (abdominal aortic aneurysm) Acute hypoxemic respiratory failure Acute on chronic renal failure Anemia of chronic disease Anxiety Bilateral pleural effusion CAD (coronary artery disease) PTCA with stent of RCA 1994 Chronic kidney disease, stage 4 (severe) Chronic pain Chronic renal insufficiency 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 exacerbation Essential tremor GERD (gastroesophageal reflux disease) Hyperkalemia Hyperlipidemia LDL goal <70 Hyperphosphatemia Hypertension Hypomagnesemia Lower urinary tract symptoms (LUTS) Multiple rib fractures Opioid dependence treated with opiates for chronic low back pain for 10+ years Septal myocardial infarction SOB (shortness of breath) Tobacco abuse counseling Vitamin B12 deficiency Surgical History H/O heart artery stent (~1994) Family History Denies family history of Ovarian cancer Prostate cancer Myocardial infarction Breast cancer Colorectal cancer Social History Smoking Status: Current some day smoker Tobacco Type: Cigarettes Cigarettes Per Day: 10; Second Hand Exposure: No; Hx Alcohol Use: No Hx Substance Use: No Preferred Language: Algerian Communication Ability: Effective Visual Impairment: No Limitations Hearing Ability: Normal Radiology Assistant Required: No Beliefs That Will Affect Care: None marital status: Current Living Situation: Alone Current Living Situation Comment: Alone at home in apartment after of in March current occupational status: 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 Physical Exam Physical Exam: The patient is awake, alert and oriented 3, Cachectic HEENT--PERRL, EOMI, mucous membranes and oropharynx mildly dry Neck--supple. No JVD. No bruits. Thyroid normal, trachea midline, no adenopathy. Heart--normal S1 and S2. No murmurs, rubs or gallops. Lungs--Reduced air entry on auscultation, bibasilar crackles Abdomen--normal bowel sounds and soft. Mild epigastric and left sided abdominal pain Extremities--Bilateral pitting leg edema Dermatologic--normal skin turgor, normal color, no abnormal lymph nodes, no rash. Neurologic--cranial nerves II through XII grossly intact. Rheumatologic--normal range of motion. Psychiatric--normal affect. Results & Data Results & Data ([facility]) Vital Signs (Past 12 Hours) Vital Signs Temp Pulse Pulse Resp BP Pulse Ox 02/19/22 17:12 100 02/19/22 17:00 86 16 142/67 H 100 02/19/22 16:15 84 16 133/65 100 02/19/22 16:00 85 18 132/94 100 02/19/22 15:55 100 02/19/22 15:49 86 20 146/78 H 100 02/19/22 15:04 93 H 14 170/80 H 97 02/19/22 15:02 18 95 02/19/22 14:55 99 H 19 99 02/19/22 14:45 97.9 F 106 H 28 H 99 Laboratory Results Laboratory Results - last 24 hr 02/19/22 02/19/22 02/19/22 14:40 14:40 14:40 WBC 13.34 H RBC 2.49 L Hgb 7.9 L Hct 26.7 L MCV 107.2 H MCH 31.7 MCHC 29.6 L Plt Count 466 H Immature Gran % (Auto) 0.6 Neut % (Auto) 87.8 Lymph % (Auto) 7.5 [place] % (Auto) 3.7 Eos % (Auto) 0.2 Baso % (Auto) 0.2 Neut # (Auto) 11.71 H Lymph # (Auto) 1.00 L [place] # (Auto) 0.49 Eos # (Auto) 0.03 Baso # (Auto) 0.03 Immature Gran # (Auto) 0.08 H Basophilic Stippling 1+ ESR 73 H PT 10.9 INR 1.0 APTT 27.6 PTT Ratio 1.0 Sodium Potassium Chloride Carbon Dioxide Anion Gap BUN Creatinine Est Cr Clr Drug Dosing Est GFR ( Amer) Est GFR (Non-Af Amer) BUN/Creatinine Ratio Glucose POC Glucose Lactate Calcium Magnesium Total Bilirubin AST ALT Alkaline Phosphatase Troponin I High Sens C-Reactive Protein Total Protein Albumin Globulin Albumin/Globulin Ratio Procalcitonin SARS-CoV-2, RNA, NAAT 02/19/22 02/19/22 02/19/22 14:40 14:40 14:40 WBC RBC Hgb Hct MCV MCH MCHC Plt Count Immature Gran % (Auto) Neut % (Auto) Lymph % (Auto) [place] % (Auto) Eos % (Auto) Baso % (Auto) Neut # (Auto) Lymph # (Auto) [place] # (Auto) Eos # (Auto) Baso # (Auto) Immature Gran # (Auto) Basophilic Stippling ESR PT INR APTT PTT Ratio Sodium 137 Potassium 4.9 Chloride 102 Carbon Dioxide 26 Anion Gap 9 BUN 84 H Creatinine 3.85 H Est Cr Clr Drug Dosing 12.8 Est GFR ( Amer) 16.2 Est GFR (Non-Af Amer) 14.0 BUN/Creatinine Ratio 21.8 H Glucose 97 POC Glucose Lactate 1.2 Calcium 8.8 Magnesium 1.4 L Total Bilirubin 0.2 AST 9 L ALT 9 Alkaline Phosphatase 53 Troponin I High Sens 66.2 H* C-Reactive Protein 9.51 H Total Protein 7.8 Albumin 3.2 L Globulin 4.6 H Albumin/Globulin Ratio 0.7 L Procalcitonin 0.06 SARS-CoV-2, RNA, NAAT 02/19/22 02/19/22 15:00 15:47 WBC RBC Hgb Hct MCV MCH MCHC Plt Count Immature Gran % (Auto) Neut % (Auto) Lymph % (Auto) [place] % (Auto) Eos % (Auto) Baso % (Auto) Neut # (Auto) Lymph # (Auto) [place] # (Auto) Eos # (Auto) Baso # (Auto) Immature Gran # (Auto) Basophilic Stippling ESR PT INR APTT PTT Ratio Sodium Potassium Chloride Carbon Dioxide Anion Gap BUN Creatinine Est Cr Clr Drug Dosing Est GFR ( Amer) Est GFR (Non-Af Amer) BUN/Creatinine Ratio Glucose POC Glucose 110 H Lactate Calcium Magnesium Total Bilirubin AST ALT Alkaline Phosphatase Troponin I High Sens C-Reactive Protein Total Protein Albumin Globulin Albumin/Globulin Ratio Procalcitonin SARS-CoV-2, RNA, NAAT NEGATIVE Code Status & VTE Plan VTE Prophylaxis Plan VTE Prophylaxis will be ordered: Yes PG Care Time/CCT Total # of Minutes Spent Total Time Spent with Patient: Total time spent is greater than 50% in coordination of care (as documented) at patient's floor/unit and/or counseling patient: Coding Level of Care Code 48840 Initial Inpt Care Lvl 3 Diagnoses Pneumonia J18.9 Laterality: unspecified laterality Lung location: unspecified part of lung Pneumonia type: due to unspecified organism Chronic pain G89.29 Chronic pain type: other chronic pain Chronic kidney disease, stage 4 (severe) N18.4 Acute on chronic respiratory failure with hypoxia J96.21 Debilitated R53.81 Severe protein-calorie malnutrition E43 Hypertension I10 AAA (abdominal aortic aneurysm) I71.4 Time Spent (min) 35 (1) Pneumonia Laterality: unspecified laterality Lung location: unspecified part of lung Pneumonia type: due to unspecified organism Qualified Code(s): J18.9 - Pneumonia, unspecified organism (2) Chronic pain Chronic pain type: other chronic pain Qualified Code(s): G89.29 - Other chronic pain
[2022-02-19] MEDS ORDERED: NITROGLYCERIN SL 0.4 MG/TAB TAB SL PRN (20:12)
[2022-02-19] MEDS ORDERED: NON-FORMULARY MEDICATION (Fluticasone-Umeclidin-Vilanter [Trelegy Ellipta] 200-62.5-25 mcg INH SCH (20:12)
[2022-02-19] MEDS ORDERED: MIRTAZAPINE TAB 15 MG TAB PO SCH (21:00)
[2022-02-19] MEDS: LINEZOLID 600 MG/300 ML BAG IV SCH (21:30)
[2022-02-19] MEDS: dilTIAZem HCL 120 MG CAPCR PO SCH (21:34)
[2022-02-19] MEDS: ASPIRIN 81 MG ECTAB PO SCH (21:35)
[2022-02-19] MEDS: FERROUS SULFATE 325 MG TAB PO SCH (21:35)
[2022-02-19] MEDS: FLUTICASONE FUROATE 200MCG 14 PUFFS/INHALER INH SCH (21:36)
[2022-02-19] MEDS: PANTOprazole 40 MG TAB PO SCH (21:36)
[2022-02-19] MEDS: UMECLIDINIUM/VILANTEROL 62.5/25MCG 7 PUFFS/INHALER INH SCH (21:37)
[2022-02-19] MEDS: TAMSULOSIN HCL 0.4 MG CAP PO SCH (21:37)
[2022-02-19 23:33] LABS: Appearance Urine Clear (Clear); Bacteria Urine Automated Negative (Negative); Bilirubin Urine Negative (Negative); Blood Urine Negative (Negative); Color Urine Yellow; Epithelial Cell Urine Auto 20-30 /lpf (0-5); Glucose Urine UA Negative (Negative); Ketones Urine Negative (Negative); Leukocyte Esterase Urine Negative (Negative); Nitrite Urine Negative (Negative); Protein Urine 2+ (Negative); RBC Urine Automated 0-4 /hpf (0-4); Specific Gravity Urine 1.016 (1.000-1.030); Urobilinogen Urine Negative (Negative)
[2022-02-20] MEDS ORDERED: PIPERACILLIN/TAZOBACTAM 3.375 GM in DEXTROSE 5% 100 ML IV SCH (02:00)
[2022-02-20] MEDS ORDERED: VENLAFAXINE HCL XR 37.5 MG CAPXR PO SCH (09:00)
[2022-02-20 10:12] LABS: Calcium 8.1 mg/dl (8.5-10.1); Creatinine Clr Calc Pharmacy 12.9 ml/min; Est GFR (Non-African American) 14.7 ml/min; Potassium 4.6 mmol/L (3.5-5.1)
[2022-02-20] MEDS: HYDROcodone/ACETAMINOPHEN 10/325 TAB PO PRN ×3 (10:32→23:03)
[2022-02-20] MEDS: UMECLIDINIUM/VILANTEROL 62.5/25MCG 7 PUFFS/INHALER INH SCH (10:32)
[2022-02-20] MEDS: FLUTICASONE FUROATE 200MCG 14 PUFFS/INHALER INH SCH (10:33)
[2022-02-20] MEDS: BUMETANIDE 2 MG in SYRINGE 0 ML IV SCH ×2 (10:33→16:39)
[2022-02-20] MEDS: ASPIRIN 81 MG ECTAB PO SCH (10:35)
[2022-02-20] MEDS: MULTIVITAMIN TAB PO SCH (10:37)
[2022-02-20] MEDS: PANTOprazole 40 MG TAB PO SCH (10:37)
[2022-02-20] MEDS: METOPROLOL SUCC 50MG EXT REL TAB PO SCH (10:37)
[2022-02-20] MEDS: LINEZOLID 600 MG/300 ML BAG IV SCH (10:37)
[2022-02-20] MEDS: FERROUS SULFATE 325 MG TAB PO SCH (10:37)
[2022-02-20] MEDS: dilTIAZem HCL 120 MG CAPCR PO SCH (10:37)
[2022-02-20] MEDS ORDERED: EPOETIN ALFA 40,000 UNITS/ML VIAL SQ STA (11:19)
--- NOTE | 2022-02-20 11:22 | Nephrology Consultation ---
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 Renal imaging otherwise unremarkable. Admitted with AMS, shortness of breath, volume overload. renal relatively stable at baseline, electrolyte acceptable. Chronic anemia, stable hemoglobin. Overall he is clinically otherwise asymptomatic since admission. --Epogen 80213 units x 1 dose now --continue Veltassa, low-potassium diet -- monitor renal function, electrolyte, intake and output. -- Continue conservative management of advanced CKD/end-stage renal disease as pt decided not to consider dialysis. Will follow Thank you for allowing me to participate in your patient's care. It was a pleasure to see Mr. Hilton History of Present Illness Reason for Consultation: Stage 4/5 CKD Attending Physician: Rangel Gonzalez MD History of Present Illness Mr. Hilton is a 81-year-old male with past medical history significant for stage IV/V CKD, recent admission for hyperkalemia, h/o COPD and CHF presenting with AMS, SOB. Nephrology consult requested for management of advanced CKD, Pl effusion and volume overload. EMR records were reviewedduring visit. Floyd was brought to ER after he was found to be less responsive by his home health aide. In ER he improved after Narcan. was given. On admission CXR, Ct A/P showed b/l pl effusion In left lower infiltrate and lobe infiltrate suggestive of pneumonia he was afebrile and did not have any other respiratory symptoms. Shortness of breath resolved. He was started on empiric antibiotic. Lab showed renal function stable at baseline creatinine around 3-3.5, electrolyte acceptable. Hemoglobin low. He denies any fever, cough or cold symptoms, vomiting, diarrhea, abdominal pain, weight gain or leg swelling or pain. He is urinating as per usual and denies dysuria. appetite has been low. For Has stage IV/V CKD, b/l cr lately around 3.5 to 3.6. . 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 Imaging showed no postrenal obstruction. Has high grade proteinuria. Current active smoker. History of atherosclerotic disease and AAA. Blood pressure generally poorly controlled, renal artery Doppler was negative for hemodynamically significant renal artery stenosis. At baseline his significantly debilitated and weak and has protein calorie malnutrition. Has been living alone since his in March 2021. He reports improvement in respiratory status since arrival, no shortness of breath, chest pain or cough. He feels at his baseline and wants to be discharged. Allergies Allergy/AdvReac Type Severity Reaction Status Date / Time cefuroxime Allergy Intermediate rash Verified 02/19/22 15:49 lisinopril Allergy Mild itching Verified 02/19/22 15:49 Home Medications Medication Instructions Recorded Confirmed Type aspirin 81 mg tablet,delayed 81 mg PO QAM 05/06/19 02/19/22 History release multivitamin (Daily Multi-Vitamin) 1 tab PO DAILY 05/28/21 02/19/22 History albuterol sulfate 90 mcg/actuation 2 inh INHALATION Q6H PRN #8.5 g 09/17/21 02/19/22 Rx aerosol inhaler ferrous sulfate 325 mg (65 mg 325 mg PO DAILY #30 tab 09/17/21 02/19/22 Rx iron) tablet,delayed release fluticasone fur. 200 mcg-umeclid 1 inh INHALATION DAILY #60 ea 09/17/21 02/19/22 Rx 62.5 mcg-vilant 25 mcg inhalat.powder (Trelegy Ellipta) mirtazapine 30 mg tablet 30 mg PO QPM #30 tab 09/17/21 02/19/22 Rx nitroglycerin 0.4 mg sublingual 0.4 mg SUBLINGUAL DIRECTED PRN 09/17/21 02/19/22 Rx tablet #25 tab tamsulosin 0.4 mg capsule 0.4 mg PO QPM #30 cap 09/17/21 02/19/22 Rx venlafaxine 37.5 mg 37.5 mg PO DAILY 30 Days #30 cap 09/17/21 02/19/22 Rx capsule,extended release 24 hr diltiazem HCl 120 mg 120 mg PO DAILY #90 cap 10/26/21 02/19/22 Rx capsule,extended release 24 hr ondansetron HCl 4 mg tablet 4 mg PO Q6H PRN #30 tab 11/12/21 02/19/22 Rx Lactobacillus acidoph-L.bulgaricus 1 tab PO DAILY #30 tab 12/06/21 02/19/22 Rx 1 million cell tablet (Floranex) darbepoetin paulette in polysorbat 40 40 mcg SUBCUT .q 2 weeks #1 ml 12/23/21 02/19/22 Rx mcg/mL in polysorbate injection omeprazole 40 mg capsule,delayed 40 mg PO DAILY #90 cap 01/12/22 02/19/22 Rx release bumetanide 1 mg tablet 1 mg PO DAILY #30 tab 01/15/22 02/19/22 Rx lorazepam 0.5 mg tablet 0.5 mg PO TID PRN #90 tab 01/19/22 02/19/22 Rx hydrochlorothiazide 25 mg tablet 25 mg PO DAILY #90 tab 01/31/22 02/19/22 Rx metoprolol succinate 50 mg 100 mg PO DAILY 30 Days #60 tab 01/31/22 02/19/22 Rx tablet,extended release 24 hr hydrocodone 10 mg-acetaminophen 2 tab PO Q6H PRN #240 tab MDD 8 02/14/22 02/19/22 Rx 325 mg tablet tabs patiromer calcium sorbitex 8.4 8.4 g PO UD 02/19/22 02/19/22 History gram oral powder packet (Veltassa) Patient History Medical History (Updated 02/20/22 @ 11:30 by Nayana Garcia MD) AAA (abdominal aortic aneurysm) Acute hypoxemic respiratory failure Acute on chronic renal failure Anemia of chronic disease Anxiety Bilateral pleural effusion CAD (coronary artery disease) PTCA with stent of RCA 1994 Chronic kidney disease, stage 4 (severe) Chronic pain Chronic renal insufficiency 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 exacerbation Essential tremor GERD (gastroesophageal reflux disease) Hyperkalemia Hyperlipidemia LDL goal <70 Hyperphosphatemia Hypertension Hypomagnesemia Lower urinary tract symptoms (LUTS) Multiple rib fractures Opioid dependence treated with opiates for chronic low back pain for 10+ years Septal myocardial infarction SOB (shortness of breath) 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 Tobacco abuse counseling Vitamin B12 deficiency Surgical History H/O heart artery stent (~1994) Family History Denies family history of Ovarian cancer Prostate cancer Myocardial infarction Breast cancer Colorectal cancer Social History Smoking Status: Heavy tobacco smoker Tobacco Type: Cigarettes Cigarettes Per Day: 10; Second Hand Exposure: No; Hx Alcohol Use: No Hx Substance Use: No Preferred Language: Syrian Communication Ability: Effective Visual Impairment: No Limitations Hearing Ability: Normal Rn Psych Required: No Beliefs That Will Affect Care: None marital status: Current Living Situation: Alone Current Living Situation Comment: Alone at home in apartment after of in March current occupational status: 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 Physical Exam Constitutional: WD/WN, vitals as above + cachectic and + malnourished; no acute distress Eyes: + anicteric sclerae ENMT: Ears: no hearing impairment Neck: normal visual inspection Respiratory: no respiratory distress and no cough Auscultation: + diminished lung sounds and + rales Cardiovascular: Rate/Rhythm: regular rate and regular rhythm Extremities: no edema Gastrointestinal (Abdomen): Inspection/Auscultation: abdomen normal to inspection and normal bowel sounds Percussion/Palpation: abdomen soft; a bdomen nontender Musculoskeletal: Extremities: extremities normal to inspection Skin: no rashes Neurologic: no focal motor deficits and not confused Psychiatric: Orientation: alert and oriented x 3 Affect: euthymic affect Results & Data ([facility]) Vital Signs (Past 12 Hours) Vital Signs Temp Pulse Resp BP Pulse Ox 02/20/22 08:05 37 C 79 12 155/71 H 100 PG Care Time/CCT Total # of Minutes Spent Total Time Spent with Patient: Total time spent is greater than 50% in coordination of care (as documented) at patient's floor/unit and/or counseling patient: Coding Level of Care Code 53842 Inpt Consult Level 5 Diagnoses 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
[2022-02-20] MEDS ORDERED: VANCOMYCIN CONSULT ACTIVE PRN (11:26)
[2022-02-20] MEDS ORDERED: VANCOMYCIN HCL 1,250 MG in SODIUM CHLORIDE 0.9% 500 ML IV ONE (11:26)
[2022-02-20 11:43] LABS: Hematocrit (blood only) 21.8 % (42-52); Hemoglobin 6.7 g/dL (14.0-18.0); Mean Corpuscular Hemoglobin 32.2 pg (25-34); Mean Corpuscular Hgb Conc 30.7 g/dL (32-36); Mean Corpuscular Volume 104.8 fL (80-100); Mean Platelet Volume 9.6 fL (7.4-10.4); Platelet Count 378 K/uL (130-400); RDW Coefficient of Variation 14.3 % (11.5-14.5); RDW Standard Deviation 54.8 fL (36.4-46.3); Red Blood Count 2.08 M/uL (4.7-6.1); White Blood Count 9.04 K/uL (4.8-10.8)
[2022-02-20] MEDS ORDERED: VANCOMYCIN HCL 1,250 MG in SODIUM CHLORIDE 0.9% 250 ML IV STA (11:46)
[2022-02-20] MEDS: ALBUMIN 25% 100 mL 25 GM/100 ML VIAL IV SCH (11:57)
[2022-02-20] MEDS ORDERED: SODIUM CHLORIDE 0.9% 250 ML IV PRN (12:06)
--- NOTE | 2022-02-20 12:14 | Pharmacy Report ---
Pharmacy Vanc AUC Short Note - Date of Service February 20, 2022 - Assessment & Plan Assessment * 81 year old M receiving Zosyn and linezolid since 02/19 for treatment of HAP. Linezolid d/c'd and changed to vancomycin 02/20 2nd GPC in chains noted from 1 of 2 blood cultures. Zosyn changed to cefepime to avoid increased risk of nephrotoxicity with Zosyn/vancomycin combination. * Dr. Gonzalez aware of cefuroxime allergy with small risk for cross-reactivity with cefepime - risk/benefit still favors cefepime as compared to Zosyn. Plans to monitor for reaction. * Renal function significantly impaired but stable since yesterday with eCrCL ~13 mL/min Vancomycin * AUC/CASTILLO is the preferred PK/PD target for vancomycin, which is effective and associated with decreased risk of nephrotoxicity compared to traditional trough targets * Will avoid ongoing vancomycin at this time and dose via level 2nd significant renal dysfunction * 20 mg/kg loading dose with random level in AM Plan * Vancomycin 1250 mg IV x1 now * Random level with AM labs tomorrow Pharmacy will continue to follow and will adjust dose/frequency as necessary. Thank you.
[2022-02-20] MEDS: ADVANCED PROBIOTIC 1250 MG CAPSULE PO SCH (12:36)
--- NOTE | 2022-02-20 13:14 | Hospitalist Progress Note ---
Date of Service February 20, 2022 Assessment & Plan (1) Pneumonia: Plan: Patient presents to the hospital with difficulty breathing and altered mental status. Chest x-ray was done which showed evidence of moderate pleural effusion and also lobar infiltrates consistent with pneumonia. Patient was discharged from this hospital November 30, 2021 after being treated for pneumonia. Blood cultures positive for gram positives in chain, which may be a contamination Will start empiric IV Vancomycin and cefepime (2) Chronic pain: Plan: Patient takes chronic opiates at home, resume (3) Bacteremia: Plan: Blood cultures positive for gram positives in chain, which may be a contamination Will start empiric IV Vancomycin and cefepime consult ID (4) Anemia: Plan: probably anemia of chronic disease Transfuse 1 unit of blood (5) Chronic kidney disease, stage 4 (severe): Plan: Worsening renal function compared to the last time he was in the hospital. During his last admission, patient declined hemodialysis He is significantly fluid overloaded, on p.o. Bumex at home, will hold. Will start IV Bumex 2 mg And albumin Appreciate nephrology recs Avoid nephrotoxins (6) Acute on chronic respiratory failure with hypoxia: Plan: Most likely a combination of opiate overdose and also pneumonia Will wean as tolerated, patient currently on oxygen through nasal cannula (7) Debilitated: Plan: Patient lives at home, although he has a [employer] rep who comes once in a while He is significantly debilitated (8) Severe protein-calorie malnutrition: Plan: Patient looks very thin and cachectic Nutritional consult Nutritional supplements TID (9) Hypertension: Plan: Blood pressure under good control Will hold hydrochlorothiazide for now in view of worsening renal function (10) AAA (abdominal aortic aneurysm): Plan: stable Plan: Continue hospitalization Patient may need/hospice During his last admission he refused hospice I spoke to her Daughter, who doubles as his POA Admission and Anticipated Discharge Date Admission Date: February 19, 2022 Subjective patient seen and examined, more awake, says he wants to be discharged Review of Systems Review of Systems: All systems reviewed are negative, apart from the ones contained in the history. Physical Exam Physical Exam: The patient is awake, alert and oriented 3, Cachectic HEENT--PERRL, EOMI, mucous membranes and oropharynx mildly dry Neck--supple. No JVD. No bruits. Thyroid normal, trachea midline, no adenopathy. Heart--normal S1 and S2. No murmurs, rubs or gallops. Lungs--Reduced air entry on auscultation, bibasilar crackles Abdomen--normal bowel sounds and soft. Mild epigastric and left sided abdominal pain Extremities--Bilateral pitting leg edema Dermatologic--normal skin turgor, normal color, no abnormal lymph nodes, no rash. Neurologic--cranial nerves II through XII grossly intact. Rheumatologic--normal range of motion. Psychiatric--normal affect. Results & Data Results & Data ([facility]) Vital Signs (Past 12 Hours) Vital Signs Temp Pulse Resp BP Pulse Ox 02/20/22 08:05 98.6 F 79 12 155/71 H 100 Laboratory Results Laboratory Results - last 24 hr 02/19/22 02/19/22 02/19/22 14:40 14:40 14:40 WBC 13.34 H RBC 2.49 L Hgb 7.9 L Hct 26.7 L MCV 107.2 H MCH 31.7 MCHC 29.6 L RDW Std Deviation RDW Coeff of Lucas Plt Count 466 H MPV Immature Gran % (Auto) 0.6 Neut % (Auto) 87.8 Lymph % (Auto) 7.5 [place] % (Auto) 3.7 Eos % (Auto) 0.2 Baso % (Auto) 0.2 Neut # (Auto) 11.71 H Lymph # (Auto) 1.00 L [place] # (Auto) 0.49 Eos # (Auto) 0.03 Baso # (Auto) 0.03 Immature Gran # (Auto) 0.08 H Basophilic Stippling 1+ ESR 73 H PT 10.9 INR 1.0 APTT 27.6 PTT Ratio 1.0 Sodium Potassium Chloride Carbon Dioxide Anion Gap BUN Creatinine Est Cr Clr Drug Dosing Est GFR ( Amer) Est GFR (Non-Af Amer) BUN/Creatinine Ratio Glucose POC Glucose Lactate Calcium Magnesium Total Bilirubin AST ALT Alkaline Phosphatase Troponin I High Sens C-Reactive Protein Total Protein Albumin Globulin Albumin/Globulin Ratio Procalcitonin Urine Color Urine Appearance Urine pH Ur Specific [place] Urine Protein Urine Glucose (UA) Urine Ketones Urine Blood Urine Nitrite Urine Bilirubin Urine Urobilinogen Ur Leukocyte Esterase Urine WBC (Auto) Urine RBC (Auto) U Hyaline Cast (Auto) U Epithel Cells (Auto) Urine Bacteria (Auto) Urine Yeast Nasal Screen MRSA (PCR) SARS-CoV-2, RNA, NAAT Blood Type Antibody Screen Crossmatch 02/19/22 02/19/22 02/19/22 14:40 14:40 14:40 WBC RBC Hgb Hct MCV MCH MCHC RDW Std Deviation RDW Coeff of Lucas Plt Count MPV Immature Gran % (Auto) Neut % (Auto) Lymph % (Auto) [place] % (Auto) Eos % (Auto) Baso % (Auto) Neut # (Auto) Lymph # (Auto) [place] # (Auto) Eos # (Auto) Baso # (Auto) Immature Gran # (Auto) Basophilic Stippling ESR PT INR APTT PTT Ratio Sodium 137 Potassium 4.9 Chloride 102 Carbon Dioxide 26 Anion Gap 9 BUN 84 H Creatinine 3.85 H Est Cr Clr Drug Dosing 12.8 Est GFR ( Amer) 16.2 Est GFR (Non-Af Amer) 14.0 BUN/Creatinine Ratio 21.8 H Glucose 97 POC Glucose Lactate 1.2 Calcium 8.8 Magnesium 1.4 L Total Bilirubin 0.2 AST 9 L ALT 9 Alkaline Phosphatase 53 Troponin I High Sens 66.2 H* C-Reactive Protein 9.51 H Total Protein 7.8 Albumin 3.2 L Globulin 4.6 H Albumin/Globulin Ratio 0.7 L Procalcitonin 0.06 Urine Color Urine Appearance Urine pH Ur Specific [place] Urine Protein Urine Glucose (UA) Urine Ketones Urine Blood Urine Nitrite Urine Bilirubin Urine Urobilinogen Ur Leukocyte Esterase Urine WBC (Auto) Urine RBC (Auto) U Hyaline Cast (Auto) U Epithel Cells (Auto) Urine Bacteria (Auto) Urine Yeast Nasal Screen MRSA (PCR) SARS-CoV-2, RNA, NAAT Blood Type Antibody Screen Crossmatch 02/19/22 02/19/22 02/19/22 15:00 15:47 23:05 WBC RBC Hgb Hct MCV MCH MCHC RDW Std Deviation RDW Coeff of Lucas Plt Count MPV Immature Gran % (Auto) Neut % (Auto) Lymph % (Auto) [place] % (Auto) Eos % (Auto) Baso % (Auto) Neut # (Auto) Lymph # (Auto) [place] # (Auto) Eos # (Auto) Baso # (Auto) Immature Gran # (Auto) Basophilic Stippling ESR PT INR APTT PTT Ratio Sodium Potassium Chloride Carbon Dioxide Anion Gap BUN Creatinine Est Cr Clr Drug Dosing Est GFR ( Amer) Est GFR (Non-Af Amer) BUN/Creatinine Ratio Glucose POC Glucose 110 H Lactate Calcium Magnesium Total Bilirubin AST ALT Alkaline Phosphatase Troponin I High Sens C-Reactive Protein Total Protein Albumin Globulin Albumin/Globulin Ratio Procalcitonin Urine Color Yellow Urine Appearance Clear Urine pH 5.0 Ur Specific [place] 1.016 Urine Protein 2+ H Urine Glucose (UA) Negative Urine Ketones Negative Urine Blood Negative Urine Nitrite Negative Urine Bilirubin Negative Urine Urobilinogen Negative Ur Leukocyte Esterase Negative Urine WBC (Auto) 1-5 Urine RBC (Auto) 0-4 U Hyaline Cast (Auto) 1-5 U Epithel Cells (Auto) 20-30 H Urine Bacteria (Auto) Negative Urine Yeast Not Reportable Nasal Screen MRSA (PCR) SARS-CoV-2, RNA, NAAT NEGATIVE Blood Type Antibody Screen Crossmatch 02/20/22 02/20/22 02/20/22 09:22 09:22 11:27 WBC 9.04 RBC 2.08 L Hgb 6.7 L* Hct 21.8 L MCV 104.8 H MCH 32.2 MCHC 30.7 L RDW Std Deviation 54.8 H RDW Coeff of Lucas 14.3 Plt Count 378 MPV 9.6 Immature Gran % (Auto) Neut % (Auto) Lymph % (Auto) [place] % (Auto) Eos % (Auto) Baso % (Auto) Neut # (Auto) Lymph # (Auto) [place] # (Auto) Eos # (Auto) Baso # (Auto) Immature Gran # (Auto) Basophilic Stippling ESR PT INR APTT PTT Ratio Sodium 138 Potassium 4.6 Chloride 105 Carbon Dioxide 25 Anion Gap 8 BUN 81 H Creatinine 3.69 H Est Cr Clr Drug Dosing 12.9 Est GFR ( Amer) 17.0 Est GFR (Non-Af Amer) 14.7 BUN/Creatinine Ratio 22.0 H Glucose 106 H POC Glucose Lactate Calcium 8.1 L Magnesium Total Bilirubin AST ALT Alkaline Phosphatase Troponin I High Sens C-Reactive Protein Total Protein Albumin Globulin Albumin/Globulin Ratio Procalcitonin Urine Color Urine Appearance Urine pH Ur Specific [place] Urine Protein Urine Glucose (UA) Urine Ketones Urine Blood Urine Nitrite Urine Bilirubin Urine Urobilinogen Ur Leukocyte Esterase Urine WBC (Auto) Urine RBC (Auto) U Hyaline Cast (Auto) U Epithel Cells (Auto) Urine Bacteria (Auto) Urine Yeast Nasal Screen MRSA (PCR) Pending SARS-CoV-2, RNA, NAAT Blood Type Antibody Screen Crossmatch 02/20/22 12:21 WBC RBC Hgb Hct MCV MCH MCHC RDW Std Deviation RDW Coeff of Lucas Plt Count MPV Immature Gran % (Auto) Neut % (Auto) Lymph % (Auto) [place] % (Auto) Eos % (Auto) Baso % (Auto) Neut # (Auto) Lymph # (Auto) [place] # (Auto) Eos # (Auto) Baso # (Auto) Immature Gran # (Auto) Basophilic Stippling ESR PT INR APTT PTT Ratio Sodium Potassium Chloride Carbon Dioxide Anion Gap BUN Creatinine Est Cr Clr Drug Dosing Est GFR ( Amer) Est GFR (Non-Af Amer) BUN/Creatinine Ratio Glucose POC Glucose Lactate Calcium Magnesium Total Bilirubin AST ALT Alkaline Phosphatase Troponin I High Sens C-Reactive Protein Total Protein Albumin Globulin Albumin/Globulin Ratio Procalcitonin Urine Color Urine Appearance Urine pH Ur Specific [place] Urine Protein Urine Glucose (UA) Urine Ketones Urine Blood Urine Nitrite Urine Bilirubin Urine Urobilinogen Ur Leukocyte Esterase Urine WBC (Auto) Urine RBC (Auto) U Hyaline Cast (Auto) U Epithel Cells (Auto) Urine Bacteria (Auto) Urine Yeast Nasal Screen MRSA (PCR) SARS-CoV-2, RNA, NAAT Blood Type Pending Antibody Screen Pending Crossmatch See Detail PG Care Time/CCT Total # of Minutes Spent Total Time Spent with Patient: Total time spent is greater than 50% in coordination of care (as documented) at patient's floor/unit and/or counseling patient: Coding Level of Care Code 85420 Subseq Hosp Care Lvl 2 Diagnoses Pneumonia J18.9 Laterality: unspecified laterality Lung location: unspecified part of lung Pneumonia type: due to unspecified organism Chronic pain G89.29 Chronic pain type: other chronic pain Chronic kidney disease, stage 4 (severe) N18.4 Acute on chronic respiratory failure with hypoxia J96.21 Debilitated R53.81 Severe protein-calorie malnutrition E43 Hypertension I10 AAA (abdominal aortic aneurysm) I71.4 Bacteremia R78.81 Anemia D64.9 Anemia type: unspecified type (1) Pneumonia Laterality: unspecified laterality Lung location: unspecified part of lung Pneumonia type: due to unspecified organism Qualified Code(s): J18.9 - Pneumonia, unspecified organism (2) Chronic pain Chronic pain type: other chronic pain Qualified Code(s): G89.29 - Other chronic pain (3) Anemia Anemia type: unspecified type Qualified Code(s): D64.9 - Anemia, unspecified
[2022-02-20] MEDS: PATIROMER CALCIUM SORBITEX 8.4 GM PACK PO SCH (13:53)
[2022-02-20] MEDS: CEFEPIME 2,000 MG in SYRINGE 0 ML IV SCH (14:14)
--- NOTE | 2022-02-20 14:57 | Electrocardiogram Report ---
Test Reason : Blood Pressure : / mmHG Vent. Rate : 111 BPM Atrial Rate : 110 BPM P-R Int : 126 ms QRS Dur : 082 ms QT Int : 328 ms P-R-T Axes : 052 077 074 degrees QTc Int : 446 ms Poor data quality, interpretation may be adversely affected Sinus tachycardia Abnormal ECG When compared with ECG of 27-NOV-2021 13:34, ST now depressed in Inferior leads ST now depressed in Lateral leads T wave inversion now evident in Inferior leads Confirmed by Antonio Berrios ([id number]) on 02/20/2022 2:57:08 PM Referred By: Confirmed By:Antonio Berrios
[2022-02-20] MEDS ORDERED: ALBUT/IPRATROP 3MG/0.5MG NEB 3 ML VIAL NEB STA (17:32)
[2022-02-20] MEDS: TAMSULOSIN HCL 0.4 MG CAP PO SCH (20:48)
[2022-02-20] MEDS: ALBUTEROL HFA 8 GM INHALER INH PRN (21:22)
[2022-02-21] MEDS: HYDROcodone/ACETAMINOPHEN 10/325 TAB PO PRN ×4 (05:14→23:28)
[2022-02-21 08:18] LABS: Hematocrit (blood only) 25.9 % (42-52); Hemoglobin 8.3 g/dL (14.0-18.0); Mean Corpuscular Hemoglobin 32.5 pg (25-34); Mean Corpuscular Volume 101.6 fL (80-100); Mean Platelet Volume 9.6 fL (7.4-10.4); Platelet Count 345 K/uL (130-400); RDW Coefficient of Variation 16.5 % (11.5-14.5); RDW Standard Deviation 61.6 fL (36.4-46.3); Red Blood Count 2.55 M/uL (4.7-6.1); White Blood Count 9.64 K/uL (4.8-10.8)
[2022-02-21] MEDS: ADVANCED PROBIOTIC 1250 MG CAPSULE PO SCH (08:21)
[2022-02-21] MEDS: BUMETANIDE 2 MG in SYRINGE 0 ML IV SCH ×2 (08:22→16:45)
[2022-02-21] MEDS: METOPROLOL SUCC 50MG EXT REL TAB PO SCH (08:22)
[2022-02-21] MEDS: MULTIVITAMIN TAB PO SCH (08:23)
[2022-02-21] MEDS: ASPIRIN 81 MG ECTAB PO SCH (08:23)
[2022-02-21] MEDS: PANTOprazole 40 MG TAB PO SCH (08:23)
[2022-02-21] MEDS: dilTIAZem HCL 120 MG CAPCR PO SCH (08:24)
[2022-02-21] MEDS: FERROUS SULFATE 325 MG TAB PO SCH (08:24)
[2022-02-21] MEDS: UMECLIDINIUM/VILANTEROL 62.5/25MCG 7 PUFFS/INHALER INH SCH (08:25)
[2022-02-21] MEDS: FLUTICASONE FUROATE 200MCG 14 PUFFS/INHALER INH SCH (08:25)
[2022-02-21] MEDS: PATIROMER CALCIUM SORBITEX 8.4 GM PACK PO SCH (08:35)
[2022-02-21 08:41] LABS: Albumin Level 3.2 gm/dl (3.4-5.0); BUN Creatinine Ratio 21.5 (10-20); Calcium 8.7 mg/dl (8.5-10.1); Creatinine Clr Calc Pharmacy 13.2 ml/min; Est GFR (African American) 17.4 ml/min; Phosphorus 3.6 mg/dl (2.5-4.9); Potassium 4.7 mmol/L (3.5-5.1)
[2022-02-21] MEDS ORDERED: VANCOMYCIN HCL 1,000 MG in SODIUM CHLORIDE 0.9% 250 ML IV ONE (09:00)
--- NOTE | 2022-02-21 09:07 | Pharmacy Report ---
Pharmacy Vanc AUC Short Note - Date of Service February 21, 2022 - Assessment & Plan Assessment 81 year old M receiving vancomycin and cefepime for treatment of possible hospital-acquired pneumonia. Pertinent microbiologic data includes: 1 of 2 blood cultures (02/19) growing probable Enterococcus, urine culture (02/19) growing gram-negative bacilli. MRSA nasal swab negative. Patient has CKD stage V but patient does not wish to consider dialysis. Will dose by random level at this time, follow cultures. Plan Vancomycin * Will dose by random vanco level at this time given very extended half-life * Random level this morning of 10.2 mcg/mL * Will give 1 g IV x 1 this morning and recheck vanco trough in AM Cefepime * Target dose of 2 g IV q8h * Reduced to 2 g IV q24h for eCrCl of 13 mL/min (< 30 mL/min) - remains appropriate Pharmacy will continue to follow and will adjust dose/frequency as necessary. Thank you.
--- NOTE | 2022-02-21 10:03 | Nephrology Progress Note ---
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 Remains on 2 mg IV BID. Document I/O's. Medications appropriate for kidney dysfunction. Patiromer 8.4 grams daily for hyperkalemia. Follow up with me to be arranged in the nephrology clinic within 2 weeks of discharge. Clinical history consistent with sFSGS. Dialysis will not be considered part of the care plan based on discussions regarding goals of care. (2) Anemia: Plan: Epogen 62678 unit provieded yesterday. s/p PRBC transfusion support. Denies symptoms. Denies signs of blood loss. (3) Pneumonia: Plan: Abx dosed appropriately for kidney dysfunction. Treatment per hospitalist service. (4) Severe protein-calorie malnutrition: Plan: Protein supplements. Admission and Anticipated Discharge Date Admission Date: February 19, 2022 Subjective No acute events overnight. Mr. Hilton hopes to be discharged home today. He states that he feels well and has no complaints or concerns. He states that he was admitted due to an error by the home care nurse. He was not able to follow up in the clinic due to transportation difficulty. Review of Systems Review of Systems: All systems reviewed & are unremarkable except as noted in HPI & below Physical Exam Constitutional: + cachectic and + frail appearing; no acute distress Eyes: + anicteric sclerae; no corneal abnormality ENMT: Mouth: no oral mucosal abnormality and oral mucous membranes not dry Neck: normal visual inspection and trachea midline Respiratory: normal respiratory effort Auscultation: lungs clear to auscultation bilaterally Cardiovascular: Rate/Rhythm: regular rate Heart Sounds: normal S1 and normal S2 Extremities: no edema Musculoskeletal: Extremities: no cyanosis and no clubbing Skin: + turgor decreased; no lesions Neurologic: Motor/Sensory: no tremor and no asterixis Psychiatric: Orientation: alert and oriented x 3 Results & Data ([facility]) Vital Signs (Past 12 Hours) Vital Signs Temp Pulse Resp BP Pulse Ox 02/21/22 08:20 97 02/21/22 07:17 36.5 C 80 18 171/78 H 98 Laboratory Results Laboratory Results - last 24 hr 02/20/22 02/20/22 02/20/22 09:22 09:22 11:27 WBC 9.04 RBC 2.08 L Hgb 6.7 L* Hct 21.8 L MCV 104.8 H MCH 32.2 MCHC 30.7 L RDW Std Deviation 54.8 H RDW Coeff of Lucas 14.3 Plt Count 378 MPV 9.6 Sodium 138 Potassium 4.6 Chloride 105 Carbon Dioxide 25 Anion Gap 8 BUN 81 H Creatinine 3.69 H Est Cr Clr Drug Dosing 12.9 Est GFR ( Amer) 17.0 Est GFR (Non-Af Amer) 14.7 BUN/Creatinine Ratio 22.0 H Glucose 106 H Calcium 8.1 L Phosphorus Albumin Procalcitonin Nasal Screen MRSA (PCR) Negative Random Vancomycin Blood Type Antibody Screen Crossmatch 02/20/22 02/21/22 02/21/22 12:21 07:47 07:47 WBC RBC Hgb Hct MCV MCH MCHC RDW Std Deviation RDW Coeff of Lucas Plt Count MPV Sodium Potassium Chloride Carbon Dioxide Anion Gap BUN Creatinine Est Cr Clr Drug Dosing Est GFR ( Amer) Est GFR (Non-Af Amer) BUN/Creatinine Ratio Glucose Calcium Phosphorus Albumin Procalcitonin 0.05 Nasal Screen MRSA (PCR) Random Vancomycin 10.2 Blood Type O Positive Antibody Screen NEGATIVE Crossmatch See Detail 02/21/22 02/21/22 07:47 07:47 WBC 9.64 RBC 2.55 L Hgb 8.3 L Hct 25.9 L MCV 101.6 H MCH 32.5 MCHC 32.0 RDW Std Deviation 61.6 H RDW Coeff of Lucas 16.5 H Plt Count 345 MPV 9.6 Sodium 138 Potassium 4.7 Chloride 104 Carbon Dioxide 28 Anion Gap 6 BUN 78 H Creatinine 3.63 H Est Cr Clr Drug Dosing 13.2 Est GFR ( Amer) 17.4 Est GFR (Non-Af Amer) 15.0 BUN/Creatinine Ratio 21.5 H Glucose 94 Calcium 8.7 Phosphorus 3.6 Albumin 3.2 L Procalcitonin Nasal Screen MRSA (PCR) Random Vancomycin Blood Type Antibody Screen Crossmatch PG Care Time/CCT Total # of Minutes Spent Total Time Spent with Patient: Total time spent is greater than 50% in coordination of care (as documented) at patient's floor/unit and/or counseling patient: Coding Level of Care Code 14157 Subseq Hosp Care Lvl 3 Diagnoses 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
[2022-02-21] MEDS: ALBUMIN 25% 100 mL 25 GM/100 ML VIAL IV SCH (11:09)
--- NOTE | 2022-02-21 12:23 | Hospitalist Progress Note ---
Date of Service February 21, 2022 Assessment & Plan (1) Pneumonia: Plan: Patient presents to the hospital with difficulty breathing and altered mental status. Chest x-ray was done which showed evidence of moderate pleural effusion and also lobar infiltrates consistent with pneumonia. Patient was discharged from this hospital November 30, 2021 after being treated for pneumonia. Blood cultures positive for gram positives in chain, likely a contamination Received a dose of IV Vancomycin and now currently on cefepime (2) Chronic pain: Plan: Patient takes chronic opiates at home, resume (3) UTI (urinary tract infection): Plan: Urine culture positive for enterococcus Currently on IV cefepime await sensitivities (4) Bacteremia: Plan: Blood cultures positive for gram positives in chain, which may be a contamination Received a dose of IV Vancomycin and now currently on cefepime consult ID (5) Anemia: Plan: probably anemia of chronic disease Transfused 1 unit of blood, Hb stable post transfusion (6) Chronic kidney disease, stage 4 (severe): Plan: Worsening renal function compared to the last time he was in the hospital. During his last admission, patient declined hemodialysis He is significantly fluid overloaded, on p.o. Bumex at home, will hold. Will start IV Bumex 2 mg And albumin Appreciate nephrology recs Avoid nephrotoxins (7) Acute on chronic respiratory failure with hypoxia: Plan: Most likely a combination of opiate overdose and also pneumonia Will wean as tolerated, patient currently on oxygen through nasal cannula (8) Debilitated: Plan: Patient lives at home, although he has a home fire alarm installer who comes once in a while He is significantly debilitated (9) Severe protein-calorie malnutrition: Plan: Patient looks very thin and cachectic Nutritional consult Nutritional supplements TID (10) Hypertension: Plan: Blood pressure under good control Will hold hydrochlorothiazide for now in view of worsening renal function (11) AAA (abdominal aortic aneurysm): Plan: stable Plan: Continue hospitalization Patient may need/hospice During his last admission he refused hospice I spoke to her Daughter, who doubles as his POA Admission and Anticipated Discharge Date Admission Date: February 19, 2022 Subjective patient seen abd examined, feels overall better Review of Systems Review of Systems: All systems reviewed are negative, apart from the ones contained in the history. Physical Exam Physical Exam: The patient is awake, alert and oriented 3, Cachectic HEENT--PERRL, EOMI, mucous membranes and oropharynx mildly dry Neck--supple. No JVD. No bruits. Thyroid normal, trachea midline, no adenopathy. Heart--normal S1 and S2. No murmurs, rubs or gallops. Lungs--Reduced air entry on auscultation, bibasilar crackles Abdomen--normal bowel sounds and soft. Mild epigastric and left sided abdominal pain Extremities--Bilateral pitting leg edema Dermatologic--normal skin turgor, normal color, no abnormal lymph nodes, no rash. Neurologic--cranial nerves II through XII grossly intact. Rheumatologic--normal range of motion. Psychiatric--normal affect. Results & Data Results & Data ([facility]) Vital Signs (Past 12 Hours) Vital Signs Temp Pulse Resp BP Pulse Ox 02/21/22 11:35 99 02/21/22 08:20 97 02/21/22 07:17 97.7 F 80 18 171/78 H 98 Laboratory Results Laboratory Results - last 24 hr 02/20/22 02/20/22 02/21/22 11:27 12:21 07:47 WBC RBC Hgb Hct MCV MCH MCHC RDW Std Deviation RDW Coeff of Lucas Plt Count MPV Sodium Potassium Chloride Carbon Dioxide Anion Gap BUN Creatinine Est Cr Clr Drug Dosing Est GFR ( Amer) Est GFR (Non-Af Amer) BUN/Creatinine Ratio Glucose Calcium Phosphorus Albumin Procalcitonin 0.05 Nasal Screen MRSA (PCR) Negative Random Vancomycin Blood Type O Positive Antibody Screen NEGATIVE Crossmatch See Detail 02/21/22 02/21/22 02/21/22 07:47 07:47 07:47 WBC 9.64 RBC 2.55 L Hgb 8.3 L Hct 25.9 L MCV 101.6 H MCH 32.5 MCHC 32.0 RDW Std Deviation 61.6 H RDW Coeff of Lucas 16.5 H Plt Count 345 MPV 9.6 Sodium 138 Potassium 4.7 Chloride 104 Carbon Dioxide 28 Anion Gap 6 BUN 78 H Creatinine 3.63 H Est Cr Clr Drug Dosing 13.2 Est GFR ( Amer) 17.4 Est GFR (Non-Af Amer) 15.0 BUN/Creatinine Ratio 21.5 H Glucose 94 Calcium 8.7 Phosphorus 3.6 Albumin 3.2 L Procalcitonin Nasal Screen MRSA (PCR) Random Vancomycin 10.2 Blood Type Antibody Screen Crossmatch PG Care Time/CCT Total # of Minutes Spent Total Time Spent with Patient: Total time spent is greater than 50% in coordination of care (as documented) at patient's floor/unit and/or counseling patient: Coding Level of Care Code 26516 Subseq Hosp Care Lvl 2 Diagnoses Pneumonia J18.9 Laterality: unspecified laterality Lung location: unspecified part of lung Pneumonia type: due to unspecified organism Chronic pain G89.29 Chronic pain type: other chronic pain Bacteremia R78.81 Anemia D64.9 Anemia type: unspecified type Chronic kidney disease, stage 4 (severe) N18.4 Acute on chronic respiratory failure with hypoxia J96.21 Debilitated R53.81 Severe protein-calorie malnutrition E43 Hypertension I10 AAA (abdominal aortic aneurysm) I71.4 UTI (urinary tract infection) N39.0 Time Spent (min) 35 (1) Pneumonia Laterality: unspecified laterality Lung location: unspecified part of lung Pneumonia type: due to unspecified organism Qualified Code(s): J18.9 - Pneumonia, unspecified organism (2) Chronic pain Chronic pain type: other chronic pain Qualified Code(s): G89.29 - Other chronic pain (3) Anemia Anemia type: unspecified type Qualified Code(s): D64.9 - Anemia, unspecified
[2022-02-21] MEDS: CEFEPIME 2,000 MG in SYRINGE 0 ML IV SCH (14:12)
[2022-02-21] MEDS: ALBUTEROL HFA 8 GM INHALER INH PRN (14:31)
[2022-02-21] MEDS: LORazepam 0.5 MG TAB PO PRN (19:10)
[2022-02-21] MEDS: TAMSULOSIN HCL 0.4 MG CAP PO SCH (20:27)
[2022-02-22] MEDS: LORazepam 0.5 MG TAB PO PRN ×3 (05:35→21:35)
[2022-02-22 06:14] LABS: Hematocrit (blood only) 27.9 % (42-52); Hemoglobin 8.9 g/dL (14.0-18.0); Mean Corpuscular Hemoglobin 32.1 pg (25-34); Mean Corpuscular Hgb Conc 31.9 g/dL (32-36); Mean Corpuscular Volume 100.7 fL (80-100); Mean Platelet Volume 9.8 fL (7.4-10.4); Platelet Count 367 K/uL (130-400); RDW Coefficient of Variation 15.8 % (11.5-14.5); RDW Standard Deviation 59.1 fL (36.4-46.3); Red Blood Count 2.77 M/uL (4.7-6.1); White Blood Count 10.04 K/uL (4.8-10.8)
[2022-02-22 06:35] LABS: BUN Creatinine Ratio 21.5 (10-20); Calcium 8.9 mg/dl (8.5-10.1); Creatinine Clr Calc Pharmacy 13.2 ml/min; Est GFR (African American) 17.4 ml/min; Potassium 4.3 mmol/L (3.5-5.1)
[2022-02-22] MEDS: ADVANCED PROBIOTIC 1250 MG CAPSULE PO SCH (08:39)
[2022-02-22] MEDS: DAPTOmycin 550 MG in SYRINGE 0 ML IV SCH (08:39)
[2022-02-22] MEDS: METOPROLOL SUCC 50MG EXT REL TAB PO SCH (08:39)
[2022-02-22] MEDS: FERROUS SULFATE 325 MG TAB PO SCH (08:40)
[2022-02-22] MEDS: MULTIVITAMIN TAB PO SCH (08:40)
[2022-02-22] MEDS: BUMETANIDE 2 MG in SYRINGE 0 ML IV SCH (08:41)
[2022-02-22] MEDS: PANTOprazole 40 MG TAB PO SCH (08:41)
[2022-02-22] MEDS: ASPIRIN 81 MG ECTAB PO SCH (08:41)
[2022-02-22] MEDS: dilTIAZem HCL 120 MG CAPCR PO SCH (08:41)
[2022-02-22] MEDS: UMECLIDINIUM/VILANTEROL 62.5/25MCG 7 PUFFS/INHALER INH SCH (08:42)
[2022-02-22] MEDS: FLUTICASONE FUROATE 200MCG 14 PUFFS/INHALER INH SCH (08:42)
--- NOTE | 2022-02-22 09:20 | Nephrology Progress Note ---
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 IV Bumex switched to 2 mg PO BID this AM. Document I/O's. Medications appropriate for kidney dysfunction. Patiromer 8.4 grams daily for hyperkalemia. Follow up with me to be arranged in the nephrology clinic within 2 weeks of discharge. Clinical history consistent with sFSGS. Dialysis will not be considered part of the care plan based on discussions regarding goals of care. (2) Anemia: Plan: Epogen 19577 unit provided 02/19. s/p PRBC transfusion support. Denies symptoms. Denies signs of blood loss. (3) Pneumonia: Plan: Abx dosed appropriately for kidney dysfunction. Treatment per hospitalist service. (4) Severe protein-calorie malnutrition: Plan: Protein supplements. Admission and Anticipated Discharge Date Admission Date: February 19, 2022 Subjective No acute events overnight. Usman states that he feels well this AM. He insists that he should return home today. Appetite is good. He did admit to some difficulty breathing while eating but states that this is chronic. Usman demonstrated some mild aspiration drinking milk while I was at the bedside. This does not concern him. He did have swallow evaluation during prior admission and notes that he was told then that there were concerns with thin liquids. Review of Systems Review of Systems: All systems reviewed & are unremarkable except as noted in HPI & below Physical Exam Constitutional: + cachectic and + frail appearing; no acute distress Eyes: + anicteric sclerae; no corneal abnormality ENMT: Mouth: no oral mucosal abnormality and oral mucous membranes not dry Neck: normal visual inspection and trachea midline Respiratory: normal respiratory effort Auscultation: lungs clear to auscultation bilaterally Cardiovascular: Rate/Rhythm: regular rate Heart Sounds: normal S1 and normal S2 Extremities: no edema Musculoskeletal: Extremities: no cyanosis and no clubbing Skin: + turgor decreased; no lesions Neurologic: Motor/Sensory: no tremor and no asterixis Psychiatric: Orientation: alert and oriented x 3 Results & Data ([facility]) Vital Signs (Past 12 Hours) Vital Signs Temp Pulse Resp BP Pulse Ox 02/22/22 06:46 36.7 C 88 20 166/83 H 100 02/21/22 22:36 36.6 C 98 H 18 175/88 H 97 02/21/22 22:05 99 H 20 96 Laboratory Results Laboratory Results - last 24 hr 02/22/22 02/22/22 02/22/22 05:28 05:28 05:28 WBC 10.04 RBC 2.77 L Hgb 8.9 L Hct 27.9 L MCV 100.7 H MCH 32.1 MCHC 31.9 L RDW Std Deviation 59.1 H RDW Coeff of Lucas 15.8 H Plt Count 367 MPV 9.8 Sodium 137 Potassium 4.3 Chloride 101 Carbon Dioxide 27 Anion Gap 9 BUN 78 H Creatinine 3.62 H Est Cr Clr Drug Dosing 13.2 Est GFR ( Amer) 17.4 Est GFR (Non-Af Amer) 15.0 BUN/Creatinine Ratio 21.5 H Glucose 92 Calcium 8.9 Random Vancomycin 15.5 PG Care Time/CCT Total # of Minutes Spent Total Time Spent with Patient: Total time spent is greater than 50% in coordination of care (as documented) at patient's floor/unit and/or counseling patient: Coding Level of Care Code 10362 Subseq Hosp Care Lvl 3 Diagnoses 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
[2022-02-22] MEDS: ALBUMIN 25% 100 mL 25 GM/100 ML VIAL IV SCH (09:43)
--- NOTE | 2022-02-22 12:15 | Hospitalist Progress Note ---
Date of Service February 22, 2022 Assessment & Plan (1) Pneumonia: Plan: Patient presents to the hospital with difficulty breathing and altered mental status. Chest x-ray was done which showed evidence of moderate pleural effusion and also lobar infiltrates consistent with pneumonia. Patient was discharged from this hospital November 30, 2021 after being treated for pneumonia. Blood cultures positive for E faecium, VRE Now on Daptomycin and Cefepime (2) Chronic pain: Plan: Patient takes chronic opiates at home, resume (3) UTI (urinary tract infection): Plan: Urine culture positive for Klebsiella Oxytoca await sensitivities Continue Cefepime (4) Bacteremia: Plan: Blood cultures positive for E faecium, VRE Now on Daptomycin and Cefepime Obtain 2 d ECHO to r/o vegetations ID onconsult (5) Anemia: Plan: probably anemia of chronic disease Transfused 1 unit of blood, Hb stable post transfusion (6) Chronic kidney disease, stage 4 (severe): Plan: Worsening renal function compared to the last time he was in the hospital. During his last admission, patient declined hemodialysis He is significantly fluid overloaded, on p.o. Bumex at home, will hold. Will start IV Bumex 2 mg And albumin Appreciate nephrology recs Avoid nephrotoxins (7) Acute on chronic respiratory failure with hypoxia: Plan: Secondary to PNA and pleural effusion continue supplementa oxygen consult Pulm (8) Pleural effusion: Plan: worsening moderate sized right pleural effusion continue diuretics consult Pulm, may need thoracentesis (9) Debilitated: Plan: Patient lives at home, although he has a home health registered nurse who comes once in a while He is significantly debilitated (10) Severe protein-calorie malnutrition: Plan: Patient looks very thin and cachectic Nutritional consult Nutritional supplements TID (11) Hypertension: Plan: Blood pressure under good control Will hold hydrochlorothiazide for now in view of worsening renal function (12) AAA (abdominal aortic aneurysm): Plan: stable (13) Respiratory failure with hypoxia: Plan: Continue hospitalization Patient may need/hospice During his last admission he refused hospice I spoke to her Daughter, who doubles as his POA Admission and Anticipated Discharge Date Admission Date: February 19, 2022 Subjective no new events, still a bit SOB, but wants to be discharged home Review of Systems Review of Systems: All systems reviewed are negative, apart from the ones contained in the history. Physical Exam Physical Exam: The patient is awake, alert and oriented 3, Cachectic HEENT--PERRL, EOMI, mucous membranes and oropharynx mildly dry Neck--supple. No JVD. No bruits. Thyroid normal, trachea midline, no adenopathy. Heart--normal S1 and S2. No murmurs, rubs or gallops. Lungs--Reduced air entry on auscultation, bibasilar crackles Abdomen--normal bowel sounds and soft. Mild epigastric and left sided abdominal pain Extremities--Bilateral pitting leg edema Dermatologic--normal skin turgor, normal color, no abnormal lymph nodes, no rash. Neurologic--cranial nerves II through XII grossly intact. Rheumatologic--normal range of motion. Psychiatric--normal affect. Results & Data Results & Data ([facility]) Vital Signs (Past 12 Hours) Vital Signs Temp Pulse Resp BP Pulse Ox 02/22/22 06:46 98.1 F 88 20 166/83 H 100 PG Care Time/CCT Total # of Minutes Spent Total Time Spent with Patient: Total time spent is greater than 50% in coordination of care (as documented) at patient's floor/unit and/or counseling patient: Coding Level of Care Code 15847 Subseq Hosp Care Lvl 2 Diagnoses Pneumonia J18.9 Laterality: unspecified laterality Lung location: unspecified part of lung Pneumonia type: due to unspecified organism Chronic pain G89.29 Chronic pain type: other chronic pain UTI (urinary tract infection) N39.0 Bacteremia R78.81 Anemia D64.9 Anemia type: unspecified type Chronic kidney disease, stage 4 (severe) N18.4 Acute on chronic respiratory failure with hypoxia J96.21 Debilitated R53.81 Severe protein-calorie malnutrition E43 Hypertension I10 AAA (abdominal aortic aneurysm) I71.4 Respiratory failure with hypoxia J96.91 Pleural effusion J90 Time Spent (min) 35 (1) Pneumonia Laterality: unspecified laterality Lung location: unspecified part of lung Pneumonia type: due to unspecified organism Qualified Code(s): J18.9 - Pneumonia, unspecified organism (2) Chronic pain Chronic pain type: other chronic pain Qualified Code(s): G89.29 - Other chronic pain (3) Anemia Anemia type: unspecified type Qualified Code(s): D64.9 - Anemia, unspecified
[2022-02-22] MEDS: PATIROMER CALCIUM SORBITEX 8.4 GM PACK PO SCH (12:35)
[2022-02-22] MEDS: HYDROcodone/ACETAMINOPHEN 10/325 TAB PO PRN ×2 (12:35→21:35)
--- NOTE | 2022-02-22 12:35 | Procedure Note ---
Procedure Note Date of Service February 22, 2022 Note Procedure: Diagnostic and/therapeutic ultrasound-guided catheter thoracentesis Machine Joiner Cementer: Dr. Dani Hbeert Indication: Pleural effusion Consent: Signed by patient and verified with timeout prior to procedure Anesthesia: 8 mL's of 1% lidocaine without epinephrine given locally Procedure: Consent was verified and timeout performed. Appropriate imaging studies were reviewed prior to the procedure. Patient was placed in a seated position and limited thoracic ultrasound was performed of the right chest. See separate imaging. The site appropriate for thoracentesis was selected. The skin was prepped and draped in normal sterile fashion. Lidocaine was used for local analgesia. Fluid was aspirated via the finder needle. A small skin abi was made with the scalpel and the catheter over the needle apparatus was advanced over the rib into the pleural space. Using the syringe one-way valve system, a total of 650 mL's of serosanguineous fluid was removed. Procedure was terminated due to pain in the chest. The catheter was removed and observed to be intact. A sterile dressing was applied. Post procedure chest x-ray was ordered. Fluid was sent for LDH, total protein, cell count, glucose, pH, cytology, AFB cultures, gram stain and culture and fungal cultures. The patient tolerated the procedure well without obvious complication Coding CPT Codes Pulmonary/Thoracic - Pulmonary and Thoracic: 83050 Thoracentesis w imaging ([id number]) [facility] [place] Procedure Codes (Charges) Pulmonary/Thoracic Procedure 1: Pulmonary and Thoracic: 20666 Thoracentesis w imaging
--- NOTE | 2022-02-22 12:44 | XRay Report ---
XR chest 1V portable HISTORY: s/p thoracentesis COMPARISON: Chest 02/19/2022. FINDINGS: Decrease in size in the right pleural effusion status post thoracentesis. No pneumothorax. A trace left pleural effusions persist. The heart remains mildly enlarged. Right basilar opacities re main unchanged. There is mild interstitial pulmonary edema which is also unchanged. Emphysema again n oted. IMPRESSION: 1. Decrease in size in the right pleural effusion status post thoracentesis. No pneumothorax. 2. Right basilar airspace opacities persist. 3. Cardiomegaly and mild interstitial pulmonary edema. ACT 112: Negative or not required by law. Electronically signed by: Han Bryan M.D. 02/22/2022 12:43 PM
--- NOTE | 2022-02-22 13:28 | Pulmonary Consultation ---
Date of Consultation February 22, 2022 Assessment & Plan (1) Dyspnea: 81 yo male with PMHx of CKD stage 4, chronic pain on opiates, failure to thrive, hypertension, tobacco user, chronic lung disease on ~7L home O2 who was brought to the hospital by ambulance on account of altered mental status. #Pneumonia with bilateral pleural effusions -presented with difficulty breathing and altered mental status. -previously treated for pneumonia 11/30/21 -initial chest x-ray showed evidence of moderate R pleural effusion with lobar infiltrates consistent with pneumonia vs atelectasis -blood cultures positive for E faecium, VRE -cont. daptomycin, cefepime -thoracentesis R pleural space performed, 600mL red tinged fluid aspirated, thoracentesis labs sent -fluid appears exudative, concerning for infection vs malignancy -post procedure chest XR shows interval improvement of R pleural effusion, no pneumothorax -cont. diuresis -palliative consulted, patient does not wish to discuss goals of care at this time #Acute on chronic respiratory failure with hypoxia -Secondary to PNA and pleural effusion -prior imaging showed chronic emphysematous changes likely 2/2 tobacco abuse -continue supplemental oxygen #Tobacco abuse counseling -smoking cessation discussed and strongly encouraged, says he might be trying to stop soon Thank you for the consult. Pulmonary continue to follow along with you. Dyspnea type: dyspnea on exertion Qualified Code(s): R06.00 - Dyspnea, unspecified (2) Pleural effusion: (3) Pneumonia: Laterality: unspecified laterality Lung location: unspecified part of lung Pneumonia type: due to unspecified organism Qualified Code(s): J18.9 - Pneumonia, unspecified organism (4) Acute on chronic respiratory failure with hypoxia: (5) Tobacco abuse counseling: (6) COPD (chronic obstructive pulmonary disease) with emphysema: Supervising Physician Co-Signing Physician Notes Patient seen and examined with the resident physician. Agree with his assessment and plan aside for any additions/exceptions noted: Pleural fluid findings consistent with likely CHF/CKD related effusion. Continue to maintain the patient euvolemic. Lymphocytosis was noted on the pleural fluid and pleural fluid did appear serosanguineous. Cytology pending to rule out malignancy. We will continue to follow along with you. Thank you. History of Present Illness Reason for Consultation: Pneumonia w/ pleural effusion, possible thoracentesis Attending Physician: Rangel Gonzalez MD History of Present Illness 81 yo male with PMHx of CKD stage 4, chronic pain on opiates, failure to thrive, hypertension, tobacco user, chronic lung disease on ~7L home O2 who was brought to the hospital by ambulance on account of altered mental status.The patient has a history of renal insufficiency and has had accumulation of his opiate medication at times which caused him to present similarly to the ED.The patient was treated with 0.2 mg of Narcan prior to arrival and was awake and alert in the ED. He appeared to be in severe pain and difficulty breathing at the time. He says that over the course of his hospital stay his breathing was improving but then worsened yesterday. He was started on diuretics and albumin yesterday and today his breathing is doing a lot better. He is comfortable and in minimal pain still requiring 6L supplemental oxygen. Denies cough, fever, chest pain. Current smoker with with greater than 30 pack years. Claims he has been considering smoking cessation. Prior imaging showed chronic emphysematous changes in his lungs. Allergies Allergy/AdvReac Type Severity Reaction Status Date / Time cefuroxime Allergy Intermediate rash Verified 02/19/22 15:49 lisinopril Allergy Mild itching Verified 02/19/22 15:49 Home Medications Medication Instructions Recorded Confirmed Type aspirin 81 mg tablet,delayed 81 mg PO QAM 05/06/19 02/19/22 History release multivitamin (Daily Multi-Vitamin) 1 tab PO DAILY 05/28/21 02/19/22 History albuterol sulfate 90 mcg/actuation 2 inh INHALATION Q6H PRN #8.5 g 09/17/21 02/19/22 Rx aerosol inhaler ferrous sulfate 325 mg (65 mg 325 mg PO DAILY #30 tab 09/17/21 02/19/22 Rx iron) tablet,delayed release fluticasone fur. 200 mcg-umeclid 1 inh INHALATION DAILY #60 ea 09/17/21 02/19/22 Rx 62.5 mcg-vilant 25 mcg inhalat.powder (Trelegy Ellipta) mirtazapine 30 mg tablet 30 mg PO QPM #30 tab 09/17/21 02/19/22 Rx nitroglycerin 0.4 mg sublingual 0.4 mg SUBLINGUAL DIRECTED PRN 09/17/21 02/19/22 Rx tablet #25 tab tamsulosin 0.4 mg capsule 0.4 mg PO QPM #30 cap 09/17/21 02/19/22 Rx venlafaxine 37.5 mg 37.5 mg PO DAILY 30 Days #30 cap 09/17/21 02/19/22 Rx capsule,extended release 24 hr diltiazem HCl 120 mg 120 mg PO DAILY #90 cap 10/26/21 02/19/22 Rx capsule,extended release 24 hr ondansetron HCl 4 mg tablet 4 mg PO Q6H PRN #30 tab 11/12/21 02/19/22 Rx Lactobacillus acidoph-L.bulgaricus 1 tab PO DAILY #30 tab 12/06/21 02/19/22 Rx 1 million cell tablet (Floranex) darbepoetin paulette in polysorbat 40 40 mcg SUBCUT .q 2 weeks #1 ml 12/23/21 02/19/22 Rx mcg/mL in polysorbate injection omeprazole 40 mg capsule,delayed 40 mg PO DAILY #90 cap 01/12/22 02/19/22 Rx release bumetanide 1 mg tablet 1 mg PO DAILY #30 tab 01/15/22 02/19/22 Rx lorazepam 0.5 mg tablet 0.5 mg PO TID PRN #90 tab 01/19/22 02/19/22 Rx hydrochlorothiazide 25 mg tablet 25 mg PO DAILY #90 tab 01/31/22 02/19/22 Rx metoprolol succinate 50 mg 100 mg PO DAILY 30 Days #60 tab 01/31/22 02/19/22 Rx tablet,extended release 24 hr hydrocodone 10 mg-acetaminophen 2 tab PO Q6H PRN #240 tab MDD 8 02/14/22 02/19/22 Rx 325 mg tablet tabs patiromer calcium sorbitex 8.4 8.4 g PO UD 02/19/22 02/19/22 History gram oral powder packet (Veltassa) Patient History Medical History (Updated 02/23/22 @ 00:07 by Background Abdi) AAA (abdominal aortic aneurysm) Acute hypoxemic respiratory failure Acute on chronic renal failure Anemia of chronic disease Anxiety Bilateral pleural effusion CAD (coronary artery disease) PTCA with stent of RCA 1994 Chronic kidney disease, stage 4 (severe) Chronic pain Chronic renal insufficiency 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 exacerbation Essential tremor GERD (gastroesophageal reflux disease) Hyperkalemia Hyperlipidemia LDL goal <70 Hyperphosphatemia Hypertension Hypomagnesemia Lower urinary tract symptoms (LUTS) Multiple rib fractures Opioid dependence treated with opiates for chronic low back pain for 10+ years Septal myocardial infarction SOB (shortness of breath) 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 Tobacco abuse counseling Vitamin B12 deficiency Surgical History H/O heart artery stent (~1994) Family History Denies family history of Ovarian cancer Prostate cancer Myocardial infarction Breast cancer Colorectal cancer Social History Smoking Status: Heavy tobacco smoker Tobacco Type: Cigarettes Cigarettes Per Day: 10; Second Hand Exposure: No; Hx Alcohol Use: No Hx Substance Use: No Preferred Language: Sami Communication Ability: Effective Visual Impairment: No Limitations Hearing Ability: Normal Hematologist Required: No Beliefs That Will Affect Care: None marital status: / Current Living Situation: Alone Current Living Situation Comment: Alone at home in apartment after of in March current occupational status: 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 Vitals as above. HEENT: EOMI. No scleral injection. Moist mucous membranes.Clear oropharynx. Neck: Supple without lymphadenopathy. Trachea midline. No JVD. Lungs: Diminished bibasilar breath sounds on auscultation R>L with crackles. Cardiac: Regular rate and rhythm. No murmurs. Abdomen: Bowel sounds present. Soft and nondistended.No guarding. Extremities: bilateral pitting leg edema MSK: No cyanosis or clubbing. Extremities motor strength 5/5. Skin: warm, dry, scattered ecchymosis Neurologic: Grossly intact cranial nerves. Psych: normal affect. alert and oriented x3 Results & Data Results & Data ([facility]) Vital Signs (Past 12 Hours) Vital Signs Temp Pulse Resp BP Pulse Ox 02/22/22 06:46 36.7 C 88 20 166/83 H 100 Laboratory Results Laboratory Results WBC 10.04 K/uL (4.8-10.8) 02/22/22 05:28 RBC 2.77 M/uL (4.7-6.1) L 02/22/22 05:28 Hgb 8.9 g/dL (14.0-18.0) L 02/22/22 05:28 Hct 27.9 % (42-52) L 02/22/22 05:28 MCV 100.7 fL (80-100) H 02/22/22 05:28 MCH 32.1 pg (25-34) 02/22/22 05:28 MCHC 31.9 g/dL (32-36) L 02/22/22 05:28 RDW Std Deviation 59.1 fL (36.4-46.3) H 02/22/22 05:28 RDW Coeff of Lucas 15.8 % (11.5-14.5) H 02/22/22 05:28 Plt Count 367 K/uL (130-400) 02/22/22 05:28 MPV 9.8 fL (7.4-10.4) 02/22/22 05:28 Immature Gran % (Auto) 0.6 % 02/19/22 14:40 Neut % (Auto) 87.8 % 02/19/22 14:40 Lymph % (Auto) 7.5 % 02/19/22 14:40 Wetzel % (Auto) 3.7 % 02/19/22 14:40 Eos % (Auto) 0.2 % 02/19/22 14:40 Baso % (Auto) 0.2 % 02/19/22 14:40 Neut # (Auto) 11.71 K/uL (1.4-6.5) H 02/19/22 14:40 Lymph # (Auto) 1.00 K/uL (1.2-3.4) L 02/19/22 14:40 Wetzel # (Auto) 0.49 K/uL (0.11-0.59) 02/19/22 14:40 Eos # (Auto) 0.03 K/uL (0-0.5) 02/19/22 14:40 Baso # (Auto) 0.03 K/uL (0-0.2) 02/19/22 14:40 Immature Gran # (Auto) 0.08 K/uL (0.00-0.02) H 02/19/22 14:40 Basophilic Stippling 1+ 02/19/22 14:40 ESR 73 mm/hr (0-20) H 02/19/22 14:40 PT 10.9 Seconds (9.0-12.0) 02/19/22 14:40 INR 1.0 (0.9-1.1) 02/19/22 14:40 APTT 27.6 Seconds (21.0-31.0) 02/19/22 14:40 PTT Ratio 1.0 02/19/22 14:40 Sodium 137 mmol/L (136-145) 02/22/22 05:28 Potassium 4.3 mmol/L (3.5-5.1) 02/22/22 05:28 Chloride 101 mmol/L (98-107) 02/22/22 05:28 Carbon Dioxide 27 mmol/L (21-32) 02/22/22 05:28 Anion Gap 9 (3-11) 02/22/22 05:28 BUN 78 mg/dl (6-23) H 02/22/22 05:28 Creatinine 3.62 mg/dl (0.6-1.4) H 02/22/22 05:28 Est Cr Clr Drug Dosing 13.2 ml/min 02/22/22 05:28 Est GFR ( Amer) 17.4 ml/min 02/22/22 05:28 Est GFR (Non-Af Amer) 15.0 ml/min 02/22/22 05:28 BUN/Creatinine Ratio 21.5 (10-20) H 02/22/22 05:28 Glucose 92 mg/dl (70-99(Fasting)) 02/22/22 05:28 POC Glucose 110 mg/dl (70-99) H 02/19/22 15:47 Lactate 1.2 mmol/L (0.4-2.0) 02/19/22 14:40 Calcium 8.9 mg/dl (8.5-10.1) 02/22/22 05:28 Phosphorus 3.6 mg/dl (2.5-4.9) 02/21/22 07:47 Magnesium 1.4 mg/dl (1.7-2.4) L 02/19/22 14:40 Total Bilirubin 0.2 mg/dl (0.2-1.0) 02/19/22 14:40 AST 9 U/L (13-39) L 02/19/22 14:40 ALT 9 U/L (7-52) 02/19/22 14:40 Alkaline Phosphatase 53 U/L (34-104) 02/19/22 14:40 Troponin I High Sens 66.2 pg/ml (0-20) H* 02/19/22 14:40 C-Reactive Protein 9.51 mg/dl (0-0.5) H 02/19/22 14:40 Total Protein 7.8 gm/dl (6.0-8.3) 02/19/22 14:40 Albumin 3.2 gm/dl (3.4-5.0) L 02/21/22 07:47 Globulin 4.6 gm/dl (2.5-4.0) H 02/19/22 14:40 Albumin/Globulin Ratio 0.7 (0.9-2) L 02/19/22 14:40 Procalcitonin 0.05 ng/ml (0-0.5) 02/21/22 07:47 Urine Color Yellow 02/19/22 23:05 Urine Appearance Clear (Clear) 02/19/22 23:05 Urine pH 5.0 (4.5-7.5) 02/19/22 23:05 Ur Specific [place]vert 1.016 (1.000-1.030) 02/19/22 23:05 Urine Protein 2+ (Negative) H 02/19/22 23:05 Urine Glucose (UA) Negative (Negative) 02/19/22 23:05 Urine Ketones Negative (Negative) 02/19/22 23:05 Urine Blood Negative (Negative) 02/19/22 23:05 Urine Nitrite Negative (Negative) 02/19/22 23:05 Urine Bilirubin Negative (Negative) 02/19/22 23:05 Urine Urobilinogen Negative (Negative) 02/19/22 23:05 Ur Leukocyte Esterase Negative (Negative) 02/19/22 23:05 Urine WBC (Auto) 1-5 /hpf (0-5) 02/19/22 23:05 Urine RBC (Auto) 0-4 /hpf (0-4) 02/19/22 23:05 U Hyaline Cast (Auto) 1-5 /lpf (0-5) 02/19/22 23:05 U Epithel Cells (Auto) 20-30 /lpf (0-5) H 02/19/22 23:05 Urine Bacteria (Auto) Negative (Negative) 02/19/22 23:05 Urine Yeast Not Reportable 02/19/22 23:05 Fluid Comment 02/22/22 Unknown Pleural pH 7.50 (7.3-7.4) H 02/22/22 12:29 Nasal Screen MRSA (PCR) Negative (Negative) 02/20/22 11:27 Random Vancomycin 15.5 mcg/ml (10-20) 02/22/22 05:28 SARS-CoV-2, RNA, NAAT NEGATIVE (NEGATIVE) 02/19/22 15:00 Blood Type O Positive 02/20/22 12:21 Antibody Screen NEGATIVE 02/20/22 12:21 Crossmatch See Detail 02/20/22 12:21 Impressions Abdomen/Pelvis CT 02/19/22 14:32 CT OF THE ABDOMEN AND PELVIS WITHOUT CONTRAST CLINICAL HISTORY: Abdominal pain. COMPARISON STUDY: CT of the abdomen and pelvis November 27, 2021. TECHNIQUE: Axial images of the abdomen and pelvis were obtained without IV contrast. Images were reviewed in the axial, sagittal, and coronal planes. Automated exposure control was utilized for the study. A dose lowering technique was utilized adhering to the principles of ALARA. FINDINGS: Dilatation of the central pulmonary arteries suggest pulmonary arterial hypertension. There is decreased attenuation of the cardiac blood pool. A loculated moderate size right pleural effusion has increased in size since chest CT of November 27, 2021. This is partially imaged on this exam. Extensive right lower lobe and right middle lobe airspace opacity is noted with volume loss. This favors round atelectasis. Patchy airspace opacities within the left lower lung are present. There is emphysema. There may also be interstitial pulmonary edema. A small left pleural effusion is noted. No pneumatosis, free air or portal venous gas is present. Evaluation of the abdomen is suboptimal given lack of contrast and paucity of intra-abdominal fat. Aneurysmal dilatation of the abdominal aorta, measuring approximately 5 cm, is similar to exam of November 27, 2021. There is extensive atherosclerotic plaque. Aneurysmal dilatation of the bilateral common iliac arteries, left greater than right, is also unchanged. Left common iliac artery measures approximately 2.9 cm. There is no evidence for rupture. Adjacent soft tissue thickening is unchanged. Unenhanced images of the liver, spleen, adrenal glands, kidneys and pancreas are normal. No hydronephrosis. There is no biliary or pancreatic ductal dilatation. No peripancreatic infiltration. No evidence for a bowel obstruction. There is no abdominal or pelvic lymphadenopathy. No acute fracture or suspicious lesion within the bony structures is identified. Bladder is moderately distended. IMPRESSION: 1. No acute process within the abdomen or pelvis on unenhanced exam. No bowel obstruction. 2. Technically difficult study to interpret given paucity of intra-abdominal fat and lack of contrast. 3. No significant change in the infrarenal abdominal aortic aneurysm and the bilateral common iliac artery aneurysms, left larger than right. 4. Increase in size of a moderate-sized loculated right pleural effusion, partially imaged on this exam. Right middle and lower lobe airspace opacities with volume loss. These favor atelectasis. 5. Small left pleural effusion. Body wall edema. Findings suggesting anasarca. 6. Patchy left lower lung opacities which favor an infectious process. ACT 112: Negative or not required by law. Electronically signed by: Kyree Harvey M.D. 02/19/2022 4:[address] 02/19/22 14:32 CT OF THE HEAD WITHOUT CONTRAST CLINICAL HISTORY: Altered mental status. COMPARISON STUDY: Head CT November 27, 2021. CT DOSE: 926.10 mGy.cm TECHNIQUE: Helical axial images of the head were obtained without IV contrast. Automated exposure control was utilized for the study. A dose lowering technique was utilized adhering to the principles of ALARA. FINDINGS: No acute intracranial hemorrhage, midline shift or mass effect is present. A 6 mm hypodensity within the left caudate is new since CT of November 27, 2021. Otherwise, the appearance of the brain is unchanged. The ventricular system is unremarkable. The basal cisterns are patent. No extra-axial collections are present. There are no findings to suggest acute dural sinus thrombosis or acute territorial infarct. No significant calvarial abnormalities are present. Visualized portions of the sinuses and mastoid air cells are clear. IMPRESSION: 1. No acute intracranial hemorrhage or mass effect. 2. 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 This is new since CT of November 27, 2021. Otherwise, unchanged appearance of the brain. ACT 112: Negative or not required by law. Electronically signed by: Kyree Harvey M.D. 02/19/2022 4:02 PM Chest X-Ray 02/22/22 12:19 XR chest 1V portable HISTORY: s/p thoracentesis COMPARISON: Chest 02/19/2022. FINDINGS: Decrease in size in the right pleural effusion status post thoracentesis. No pneumothorax. A trace left pleural effusions persist. The heart remains mildly enlarged. Right basilar opacities remain unchanged. There is mild interstitial pulmonary edema which is also unchanged. Emphysema again noted. IMPRESSION: 1. Decrease in size in the right pleural effusion status post thoracentesis. No pneumothorax. 2. Right basilar airspace opacities persist. 3. Cardiomegaly and mild interstitial pulmonary edema. ACT 112: Negative or not required by law. Electronically signed by: Han Bryan M.D. 02/22/2022 12:43 PM Resident Activity Tracking Resident Involvement: Resident Care Provided Care Provided: [facility] [place] [facility]
[2022-02-22 13:57] LABS: Appearance Pleural Fluid CLOUDY; Color Pleural Fluid RED; RBC Pleural Fluid (A) 18000 /uL; Source Pleural Fluid RIGHT LUNG; WBC Pleural Fluid (A) 265 /uL
[2022-02-22 13:58] LABS: Basophils, Fluid 0 %; Eosinophils, Fluid 2 %; Lymphocytes, Fluid 40 %; Mono,Macrophage,Mesothelial 42 %; Neutrophils, Fluid 16 %
--- NOTE | 2022-02-22 14:13 | XCELERA ---
[id number] \\[id number]
[2022-02-22 14:35] LABS: Amylase Pleural Fluid 21 U/L; Glucose Pleural Fluid 108 mg/dl; LDH Pleural Fluid 90 U/L; Total Protein Pleural Fluid < 3.0 gm/dl
--- NOTE | 2022-02-22 15:09 | Billing Data ---
Date of Service February 22, 2022 Coding Level of Care Code 23247 Initial Inpt Care Lvl 3
[2022-02-22] MEDS: CEFEPIME 2,000 MG in SYRINGE 0 ML IV SCH (16:43)
[2022-02-22] MEDS: BUMETANIDE 1 MG TAB PO SCH (17:29)
[2022-02-22] MEDS: TAMSULOSIN HCL 0.4 MG CAP PO SCH (21:35)
[2022-02-23] MEDS: HYDROcodone/ACETAMINOPHEN 10/325 TAB PO PRN ×3 (03:30→18:33)
[2022-02-23] MEDS: LORazepam 0.5 MG TAB PO PRN ×3 (05:32→21:12)
[2022-02-23] MEDS: FLUTICASONE FUROATE 200MCG 14 PUFFS/INHALER INH SCH (08:58)
[2022-02-23] MEDS: UMECLIDINIUM/VILANTEROL 62.5/25MCG 7 PUFFS/INHALER INH SCH (08:58)
[2022-02-23] MEDS: FERROUS SULFATE 325 MG TAB PO SCH (08:59)
[2022-02-23] MEDS: MULTIVITAMIN TAB PO SCH (09:00)
[2022-02-23] MEDS: dilTIAZem HCL 120 MG CAPCR PO SCH (09:00)
[2022-02-23] MEDS: ADVANCED PROBIOTIC 1250 MG CAPSULE PO SCH (09:00)
[2022-02-23] MEDS: PANTOprazole 40 MG TAB PO SCH (09:00)
[2022-02-23] MEDS: ASPIRIN 81 MG ECTAB PO SCH (09:01)
[2022-02-23] MEDS: BUMETANIDE 1 MG TAB PO SCH ×2 (09:01→17:52)
[2022-02-23] MEDS: METOPROLOL SUCC 50MG EXT REL TAB PO SCH (09:01)
[2022-02-23 09:13] LABS: Hematocrit (blood only) 30.2 % (42-52); Hemoglobin 9.3 g/dL (14.0-18.0); Mean Corpuscular Hemoglobin 30.9 pg (25-34); Mean Corpuscular Hgb Conc 30.8 g/dL (32-36); Mean Corpuscular Volume 100.3 fL (80-100); Mean Platelet Volume 9.6 fL (7.4-10.4); Platelet Count 333 K/uL (130-400); RDW Coefficient of Variation 15.6 % (11.5-14.5); RDW Standard Deviation 57.2 fL (36.4-46.3); Red Blood Count 3.01 M/uL (4.7-6.1); White Blood Count 11.61 K/uL (4.8-10.8)
[2022-02-23 09:30] LABS: BUN Creatinine Ratio 22.9 (10-20); C Reactive Protein 8.78 mg/dl (0-0.5); Creatinine Clr Calc Pharmacy 14.4 ml/min; Est GFR (African American) 19.4 ml/min; Est GFR (Non-African American) 16.7 ml/min
--- NOTE | 2022-02-23 10:13 | Nephrology Progress Note ---
Date of Service February 23, 2022 Assessment & Plan (1) 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: Plan: Bumex to encourage negative fluid balance. Bumex 2 mg PO BID. Medications appropriate for kidney dysfunction. Patiromer 8.4 grams daily for hyperkalemia. Follow up metabolic profile within 1 week of discharge. Follow up in the nephrology clinic or with virtual visit within 2 weeks of discharge. Clinical history consistent with sFSGS. Dialysis will not be considered part of the care plan based on discussions regarding goals of care. (2) Anemia: Plan: Epogen 83630 unit provided 02/19. s/p PRBC transfusion support. Denies symptoms. Denies signs of blood loss. Update iron profile with next blood work. (3) Pneumonia: Plan: Abx dosed appropriately for kidney dysfunction. (4) Severe protein-calorie malnutrition: Plan: Protein supplements. Admission and Anticipated Discharge Date Admission Date: February 19, 2022 Subjective No acute events overnight. Usman feels well this AM. Continues to request discharge home. Denies dyspnea. Tolerated thoracentesis well. Review of Systems Review of Systems: All systems reviewed & are unremarkable except as noted in HPI & below Physical Exam Constitutional: + cachectic and + frail appearing; no acute distress Eyes: + anicteric sclerae; no corneal abnormality ENMT: Mouth: no oral mucosal abnormality and oral mucous membranes not dry Neck: normal visual inspection and trachea midline Respiratory: normal respiratory effort Auscultation: lungs clear to auscultation bilaterally Cardiovascular: Rate/Rhythm: regular rate Heart Sounds: normal S1 and normal S2 Extremities: no edema Musculoskeletal: Extremities: no cyanosis and no clubbing Skin: + turgor decreased; no lesions Neurologic: Motor/Sensory: no tremor and no asterixis Psychiatric: Orientation: alert and oriented x 3 Results & Data ([facility]) Vital Signs (Past 12 Hours) Vital Signs Temp Pulse Resp BP Pulse Ox 02/23/22 07:18 36.2 C L 97 H 18 164/87 H 99 02/22/22 22:13 36.5 C 97 H 22 180/91 H 100 Laboratory Results Laboratory Results - last 24 hr 02/22/22 02/22/22 02/22/22 12:29 18:11 18:11 WBC RBC Hgb Hct MCV MCH MCHC RDW Std Deviation RDW Coeff of Lucas Plt Count MPV Sodium Potassium Chloride Carbon Dioxide Anion Gap BUN Creatinine Est Cr Clr Drug Dosing Est GFR ( Amer) Est GFR (Non-Af Amer) BUN/Creatinine Ratio Glucose Calcium Lactate Dehydrogenase 144 C-Reactive Protein Total Protein 7.9 Fluid Neutrophils % Fluid Lymphocytes % Fluid Eosinophils % Fluid Basophils % Fluid Meso/Macro/[place] % Fluid Comment Pleural Fluid Source Pleural Color Pleural Appearance Pleural pH 7.50 H Pleural WBC Pleural RBC Pleural Total Protein Pleural LDH Pleural Glucose Pleural Amylase 02/22/22 02/22/22 02/23/22 Unknown Unknown 08:49 WBC RBC Hgb Hct MCV MCH MCHC RDW Std Deviation RDW Coeff of Lucas Plt Count MPV Sodium 134 L Potassium 4.0 Chloride 98 Carbon Dioxide 26 Anion Gap 10 BUN 76 H Creatinine 3.32 H D Est Cr Clr Drug Dosing 14.4 Est GFR ( Amer) 19.4 Est GFR (Non-Af Amer) 16.7 BUN/Creatinine Ratio 22.9 H Glucose 93 Calcium 9.0 Lactate Dehydrogenase C-Reactive Protein 8.78 H Total Protein Fluid Neutrophils % 16 Fluid Lymphocytes % 40 Fluid Eosinophils % 2 Fluid Basophils % 0 Fluid Meso/Macro/[place] % 42 Fluid Comment Pleural Fluid Source RIGHT LUNG Pleural Color RED Pleural Appearance CLOUDY Pleural pH Pleural WBC 265 Pleural RBC 22960 Pleural Total Protein < 3.0 Pleural LDH 90 Pleural Glucose 108 Pleural Amylase 21 02/23/22 08:49 WBC 11.61 H RBC 3.01 L Hgb 9.3 L Hct 30.2 L MCV 100.3 H MCH 30.9 MCHC 30.8 L RDW Std Deviation 57.2 H RDW Coeff of Lucas 15.6 H Plt Count 333 MPV 9.6 Sodium Potassium Chloride Carbon Dioxide Anion Gap BUN Creatinine Est Cr Clr Drug Dosing Est GFR ( Amer) Est GFR (Non-Af Amer) BUN/Creatinine Ratio Glucose Calcium Lactate Dehydrogenase C-Reactive Protein Total Protein Fluid Neutrophils % Fluid Lymphocytes % Fluid Eosinophils % Fluid Basophils % Fluid Mes[place]/Mac[place] % Fluid Comment Pleural Fluid Source Pleural Color Pleural Appearance Pleural pH Pleural WBC Pleural RBC Pleural Total Protein Pleural LDH Pleural Glucose Pleural Amylase PG Care Time/CCT Total # of Minutes Spent Total Time Spent with Patient: Total time spent is greater than 50% in coordination of care (as documented) at patient's floor/unit and/or counseling patient: Coding Level of Care Code 51734 Subseq Hosp Care Lvl 3 Diagnoses 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
--- NOTE | 2022-02-23 10:31 | Pulmonology Progress Note ---
Date of Service February 23, 2022 Assessment & Plan (1) Pleural effusion: Plan: Thoracentesis performed 02/22/2022 yielded 650 mL of serosanguineous fluid. This appears to be mildly exudative. Malignancy in the differential. Can also be an exudate due to chronicity of the effusion. Will await cultures and cytology results. Fluid does not appear to be an empyema. Continue with diuresis as per nephrology. Nutritional status is poor and oncotic pressure is low. Hemoglobin increased this morning. Postprocedural chest x-ray shows improvement. 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 Patient is hypervolemic. (3) Congestive heart failure: Plan: Continue with diuresis as noted above. Plan: Please call with questions. Thank you for the consult. Admission and Anticipated Discharge Date Admission Date: February 19, 2022 Subjective Patient seen and examined this morning. He notes that his breathing is better and he denies any chest pain. He is sitting up in a chair. He has trouble swallowing pills. Review of Systems Review of Systems: All systems reviewed & are unremarkable except as noted in HPI & below Physical Exam Constitutional: Frail appearing male no apparent distress Eyes: PERRL, conjunctivae normal, anicteric sclerae Respiratory: Diminished lung sounds bilaterally with bilateral crackles Cardiovascular: Regular rate and rhythm. 2+ pitting edema in the lower extremities bilaterally. Gastrointestinal (Abdomen): normal bowel sounds, soft, nontender, no hepatosplenomegaly Skin: no rashes, warm and dry Neurologic: PERRL, EOMI, accommodation nl, no face palsy, no dysarthria Psychiatric: A+Ox3, euthymic affect Results & Data Results & Data ([facility]) Vital Signs (Past 12 Hours) Vital Signs Temp Pulse Resp BP Pulse Ox 02/23/22 07:18 36.2 C L 97 H 18 164/87 H 99 PG Care Time/CCT Total # of Minutes Spent Total Time Spent with Patient: Total time spent is greater than 50% in coordination of care (as documented) at patient's floor/unit and/or counseling patient: Coding Level of Care Code 60232 Subseq Hosp Care Lvl 2 Diagnoses Pleural effusion J90 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 N18.5 Congestive heart failure I50.9
--- NOTE | 2022-02-23 12:37 | Hospitalist Progress Note ---
Date of Service February 23, 2022 Assessment & Plan (1) Pneumonia: Plan: Patient presents to the hospital with difficulty breathing and altered mental status. Chest x-ray was done which showed evidence of moderate pleural effusion and also lobar infiltrates consistent with pneumonia. Patient was discharged from this hospital November 30, 2021 after being treated for pneumonia. Blood cultures positive for E faecium, VRE Now on Daptomycin and Cefepime, continue Thoracentesis was done with removal of 650cc of fluid Patient has clinically improved (2) Chronic pain: Plan: Patient takes chronic opiates at home, resume (3) UTI (urinary tract infection): Plan: Urine culture positive for Klebsiella Oxytoca await sensitivities Continue Cefepime (4) Bacteremia: Plan: Blood cultures positive for E faecium, VRE Now on Daptomycin and Cefepime Obtain 2 d ECHO to r/o vegetations ID on consult (5) Anemia: Plan: probably anemia of chronic disease Transfused 1 unit of blood, Hb stable post transfusion (6) Chronic kidney disease, stage 4 (severe): Plan: Worsening renal function compared to the last time he was in the hospital. During his last admission, patient declined hemodialysis He is significantly fluid overloaded, on p.o. Bumex at home, will hold. Will start IV Bumex 2 mg And albumin Appreciate nephrology recs Avoid nephrotoxins (7) Acute on chronic respiratory failure with hypoxia: Plan: Secondary to PNA and pleural effusion continue supplementa oxygen consult Pulm (8) Pleural effusion: Plan: Post Thoracentesis (9) Debilitated: Plan: Patient lives at home, although he has a home health lvn who comes once in a while He is significantly debilitated (10) Acute encephalopathy: Plan: acute toxic encephalopathy, secondary to PNA, UTI Now resolved Patient back to baseline mentation (11) Severe protein-calorie malnutrition: Plan: Patient looks very thin and cachectic Nutritional consult Nutritional supplements TID (12) Hypertension: Plan: Blood pressure under good control Will hold hydrochlorothiazide for now in view of worsening renal function (13) AAA (abdominal aortic aneurysm): Plan: stable (14) Respiratory failure with hypoxia: Plan: patient on 6L through nasal canula wean as tolerated Plan: Continue hospitalization Patient may need/hospice During his last admission he refused hospice I spoke to her Daughter, who doubles as his POA Admission and Anticipated Discharge Date Admission Date: February 19, 2022 Subjective patient seen and examined today, sitting up in the chair, feels better after thoracetesis Review of Systems Review of Systems: All systems reviewed are negative, apart from the ones contained in the history. Physical Exam 2 Physical Exam: The patient is awake, alert and oriented 3, Cachectic HEENT--PERRL, EOMI, mucous membranes and oropharynx mildly dry Neck--supple. No JVD. No bruits. Thyroid normal, trachea midline, no adenopathy. Heart--normal S1 and S2. No murmurs, rubs or gallops. Lungs--Reduced air entry on auscultation, bibasilar crackles Abdomen--normal bowel sounds and soft. Mild epigastric and left sided abdominal pain Extremities--Bilateral pitting leg edema Dermatologic--normal skin turgor, normal color, no abnormal lymph nodes, no rash. Neurologic--cranial nerves II through XII grossly intact. Rheumatologic--normal range of motion. Psychiatric--normal affect. Results & Data Results & Data ([facility]) Vital Signs (Past 12 Hours) Vital Signs Temp Pulse Resp BP Pulse Ox 02/23/22 07:18 97.2 F L 97 H 18 164/87 H 99 PG Care Time/CCT Total # of Minutes Spent Total Time Spent with Patient: Total time spent is greater than 50% in coordination of care (as documented) at patient's floor/unit and/or counseling patient: Coding Level of Care Code 52979 Subseq Hosp Care Lvl 2 Diagnoses Pneumonia J18.9 Laterality: unspecified laterality Lung location: unspecified part of lung Pneumonia type: due to unspecified organism Chronic pain G89.29 Chronic pain type: other chronic pain UTI (urinary tract infection) N39.0 Bacteremia R78.81 Anemia D64.9 Anemia type: unspecified type Chronic kidney disease, stage 4 (severe) N18.4 Acute on chronic respiratory failure with hypoxia J96.21 Pleural effusion J90 Debilitated R53.81 Severe protein-calorie malnutrition E43 Hypertension I10 AAA (abdominal aortic aneurysm) I71.4 Respiratory failure with hypoxia J96.91 Acute encephalopathy G93.40 Time Spent (min) 35 (1) Pneumonia Laterality: unspecified laterality Lung location: unspecified part of lung Pneumonia type: due to unspecified organism Qualified Code(s): J18.9 - Pneumonia, unspecified organism (2) Chronic pain Chronic pain type: other chronic pain Qualified Code(s): G89.29 - Other chronic pain (3) Anemia Anemia type: unspecified type Qualified Code(s): D64.9 - Anemia, unspecified
[2022-02-23] MEDS: PATIROMER CALCIUM SORBITEX 8.4 GM PACK PO SCH (13:02)
[2022-02-23] MEDS: CEFEPIME 2,000 MG in SYRINGE 0 ML IV SCH (14:24)
[2022-02-23] MEDS ORDERED: HYDROCODONE/ACETAMOPHEN 5/325MG TAB PO ONE (15:04)
[2022-02-23] MEDS: TAMSULOSIN HCL 0.4 MG CAP PO SCH (20:56)
[2022-02-23] MEDS: ALBUTEROL HFA 8 GM INHALER INH PRN (23:17)
[2022-02-24] MEDS: HYDROcodone/ACETAMINOPHEN 10/325 TAB PO PRN ×3 (01:00→20:15)
[2022-02-24] MEDS ORDERED: METOPROLOL TARTRATE 25 MG TAB PO STA (01:02)
[2022-02-24] MEDS ORDERED: hydrOXYzine HCl 25 MG TAB PO STA (01:03)
--- NOTE | 2022-02-24 01:10 | Communication Note ---
Date of Service: February 24, 2022 Was called to the room due to patient's HR temporarily going up to 240s before going back down to range of 100s-140s. Patient reported substernal chest pain and SOB that accompanied this tachycardia. Thankfully reports that chest pain and SOB have both resolved within several minutes. Patient is now back on chronic 6L/min NC without issues and HR was in 100s during my examination. He does report that he has been anxious and that sometimes he has these symptoms when he gets anxious. Exam: NAD. Heart RRR w/o m/r/g. LCTAB. No chest pain on palpation of chest. EKG showed sinus tachycardia of ~100bpm with some PVCs. Suspect that patient became anxious which may have led to temporary ventricular rhythm which resolved. Will get hsTroponin. Will also give Metoprolol tartrate 25mg PO x1 given HTN 188/98 as well. Also will transfer to med/[facility] for continuous cardiac monitoring, and will give Hydroxyzine 25mg PO x1 for anxiety.
[2022-02-24] MEDS: LORazepam 0.5 MG TAB PO PRN (06:33)
[2022-02-24] MEDS ORDERED: IRON SUCROSE 200 MG in 0.9 % SODIUM CHLORIDE 100 ML IV ONE (09:32)
--- NOTE | 2022-02-24 09:32 | Nephrology Progress Note ---
Date of Service February 24, 2022 Assessment & Plan (1) 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: Plan: Bumex to encourage negative fluid balance. Bumex 2 mg PO BID. Medications appropriate for kidney dysfunction. Patiromer 8.4 grams daily for hyperkalemia. Follow up metabolic profile within 1 week of discharge. Follow up in the nephrology clinic or with virtual visit within 2 weeks of discharge. Clinical history consistent with sFSGS. Dialysis will not be considered part of the care plan based on discussions regarding goals of care. (2) Anemia: Plan: Epogen 33183 unit provided 02/19. s/p PRBC transfusion support. Denies symptoms. (3) Pneumonia: Plan: Abx dosed appropriately for kidney dysfunction. (4) Severe protein-calorie malnutrition: Plan: Protein supplements. Admission and Anticipated Discharge Date Admission Date: February 19, 2022 Subjective No acute events overnight. Overall, feels well this AM. Denies pain. No dyspnea. Possible discharge home tomorrow. Daughter, Allison, was updated by phone yesterday. Review of Systems Review of Systems: All systems reviewed & are unremarkable except as noted in HPI & below Physical Exam Constitutional: + cachectic and + frail appearing; no acute distress Eyes: + anicteric sclerae; no corneal abnormality ENMT: Mouth: no oral mucosal abnormality and oral mucous membranes not dry Neck: normal visual inspection and trachea midline Respiratory: normal respiratory effort Auscultation: lungs clear to auscultation bilaterally Cardiovascular: Rate/Rhythm: regular rate Heart Sounds: normal S1 and normal S2 Extremities: no edema Musculoskeletal: Extremities: no cyanosis and no clubbing Skin: + turgor decreased; no lesions Neurologic: Motor/Sensory: no tremor and no asterixis Psychiatric: Orientation: alert and oriented x 3 Results & Data ([facility]) Vital Signs (Past 12 Hours) Vital Signs Temp Pulse Resp BP BP Pulse Ox 02/24/22 08:08 36.4 C L 104 H 19 163/93 H 99 02/24/22 06:34 36.6 C 87 20 179/94 H 93 02/24/22 03:28 36.3 C L 93 H 20 146/84 H 92 02/24/22 01:56 36.4 C L 112 H 18 168/88 H 100 02/24/22 00:46 102 H 188/98 H 98 02/24/22 00:40 240 H 162/101 H 02/24/22 00:37 120 H 141/86 H 100 02/23/22 23:18 92 H 18 98 02/23/22 22:16 36.5 C 93 H 22 170/87 H 98 Laboratory Results Laboratory Results - last 24 hr 02/24/22 01:08 Troponin I High Sens 25.9 H D PG Care Time/CCT Total # of Minutes Spent Total Time Spent with Patient: Total time spent is greater than 50% in coordination of care (as documented) at patient's floor/unit and/or counseling patient: Coding Level of Care Code 42500 Subseq Hosp Care Lvl 3 Diagnoses 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
--- NOTE | 2022-02-24 10:52 | Pulmonology Progress Note ---
Date of Service February 24, 2022 Assessment & Plan (1) Pleural effusion: Plan: Thoracentesis performed 02/22/2022 yielded 650 mL of serosanguineous fluid. This appears to be mildly exudative. Pleural fluid cultures and cytology negative to date. Fluid does not appear to be an empyema. Continue with diuresis as per nephrology. Continue with broad-spectrum abx for presumptive pneumonia. Suspect the large part of the infiltrate seen on chest x-ray is related to volume overload due to KEAGAN, low oncotic pressure and diastolic heart failure. We will obtain a chest x-ray today. Thank you for allowing us to participate in the care of this patient. Please call with questions. 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 Patient is hypervolemic. (3) Congestive heart failure: Plan: Continue with diuresis as noted above. Admission and Anticipated Discharge Date Admission Date: February 19, 2022 Subjective Patient with worsening delirium this morning. Currently has a veterinary assistant technician sitting in his bedside to reorient him. Complains of pain all over including his chest and abdomen. He is not oriented to place or time. Review of systems is limited. He has an oxime mask in place and the oxygen is set at 5 L/min. He is saturating at 94 to 95% when wearing the oxygen mask properly. Review of Systems 2 Review of Systems: Unobtainable due to cognitive status Physical Exam Constitutional: Frail appearing male no apparent distress Eyes: PERRL, conjunctivae normal, anicteric sclerae Respiratory: Diminished lung sounds bilaterally with bilateral crackles Cardiovascular: Regular rate and rhythm. 2+ pitting edema in the lower extremities bilaterally. Gastrointestinal (Abdomen): normal bowel sounds, soft, nontender, no hepatosplenomegaly Skin: no rashes, warm and dry Neurologic: PERRL, EOMI, accommodation nl, no face palsy, no dysarthria Psychiatric: Confused and agitated Results & Data Results & Data ([facility]) Vital Signs (Past 12 Hours) Vital Signs Temp Pulse Resp BP BP Pulse Ox 02/24/22 08:08 36.4 C L 104 H 19 163/93 H 99 02/24/22 06:34 36.6 C 87 20 179/94 H 93 02/24/22 03:28 36.3 C L 93 H 20 146/84 H 92 02/24/22 01:56 36.4 C L 112 H 18 168/88 H 100 02/24/22 00:46 102 H 188/98 H 98 02/24/22 00:40 240 H 162/101 H 02/24/22 00:37 120 H 141/86 H 100 02/23/22 23:18 92 H 18 98 PG Care Time/CCT Total # of Minutes Spent Total Time Spent with Patient: Total time spent is greater than 50% in coordination of care (as documented) at patient's floor/unit and/or counseling patient: Coding Level of Care Code 46403 Subseq Hosp Care Lvl 3 Diagnoses Pleural effusion J90 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 N18.5 Congestive heart failure I50.9
[2022-02-24] MEDS ORDERED: STAT IV Infusion **Titration per Protocol STA (11:03)
[2022-02-24] MEDS ORDERED: dilTIAZem HCL 125 MG in DEXTROSE 5% 100 ML IV SCH (11:15)
--- NOTE | 2022-02-24 11:19 | XRay Report ---
XR chest 1V portable CLINICAL HISTORY: Follow-up right pleural effusion and airspace opacities. COMPARISON STUDY: 02/22/2022 TECHNIQUE: 1 view of the chest FINDINGS: Single frontal view of the chest demonstrates the heart to again be enlarged. There is residual right pleural effusion and right basilar atelectasis. There is interval decrease in bilateral patchy alveo lar opacities with no new alveolar opacities identified. There is no evidence for pleural effusion. T here is no evidence for vascular congestion. There is no acute osseous pathology. IMPRESSION: 1. Residual right pleural effusion and right basilar atelectasis. 2. Interval decrease in bilateral lower lobe alveolar opacities. ACT 112: Negative or not required by law. Electronically signed by: Geovanni Delacruz M.D. 02/24/2022 11:18 AM
[2022-02-24] MEDS: FERROUS SULFATE 325 MG TAB PO SCH (11:20)
[2022-02-24] MEDS: PANTOprazole 40 MG TAB PO SCH (11:20)
[2022-02-24] MEDS: PATIROMER CALCIUM SORBITEX 8.4 GM PACK PO SCH (11:20)
[2022-02-24] MEDS: MULTIVITAMIN TAB PO SCH (11:20)
[2022-02-24] MEDS: dilTIAZem HCL 120 MG CAPCR PO SCH (11:20)
[2022-02-24] MEDS: ADVANCED PROBIOTIC 1250 MG CAPSULE PO SCH (11:20)
[2022-02-24] MEDS: FLUTICASONE FUROATE 200MCG 14 PUFFS/INHALER INH SCH (11:20)
[2022-02-24] MEDS: METOPROLOL SUCC 50MG EXT REL TAB PO SCH (11:21)
[2022-02-24] MEDS: UMECLIDINIUM/VILANTEROL 62.5/25MCG 7 PUFFS/INHALER INH SCH (11:21)
[2022-02-24] MEDS: ASPIRIN 81 MG ECTAB PO SCH (11:22)
[2022-02-24] MEDS: BUMETANIDE 1 MG TAB PO SCH ×2 (11:22→17:26)
[2022-02-24 12:52] LABS: Hematocrit (blood only) 28.3 % (42-52); Hemoglobin 9.2 g/dL (14.0-18.0); Mean Corpuscular Hemoglobin 31.6 pg (25-34); Mean Corpuscular Hgb Conc 32.5 g/dL (32-36); Mean Corpuscular Volume 97.3 fL (80-100); Mean Platelet Volume 10.1 fL (7.4-10.4); Nucleated RBC # (auto) 0.02 K/uL (0-0); Nucleated RBC % (auto) 0.1 %; Platelet Count 412 K/uL (130-400); RDW Coefficient of Variation 15.3 % (11.5-14.5); RDW Standard Deviation 54.1 fL (36.4-46.3); Red Blood Count 2.91 M/uL (4.7-6.1); White Blood Count 14.52 K/uL (4.8-10.8)
[2022-02-24 13:14] LABS: BUN Creatinine Ratio 24.6 (10-20); C Reactive Protein 8.83 mg/dl (0-0.5); Creatinine Clr Calc Pharmacy 13.5 ml/min; Est GFR (Non-African American) 15.5 ml/min; Potassium 4.5 mmol/L (3.5-5.1)
[2022-02-24] MEDS: CEFEPIME 2,000 MG in SYRINGE 0 ML IV SCH (13:43)
--- NOTE | 2022-02-24 14:02 | Hospitalist Progress Note ---
Date of Service February 24, 2022 Assessment & Plan (1) Acute encephalopathy: Plan: acute metabolic encephalopathy, probably due to medication (Ativa) Patient received ativan and became disoriented overnight Please dont give Ativan Will continue 1:1 sitter, (2) Pneumonia: Plan: Patient presents to the hospital with difficulty breathing and altered mental status. Chest x-ray was done which showed evidence of moderate pleural effusion and also lobar infiltrates consistent with pneumonia. Patient was discharged from this hospital November 30, 2021 after being treated for pneumonia. Blood cultures positive for E faecium, VRE Now on Daptomycin and Cefepime Per ID, will discontinue Cefepime tomorrow and replace with PO Linezolid 600mg BID for 2 weeks upon discharge Thoracentesis was done with removal of 650cc of fluid Patient has clinically improved (3) Chronic pain: Plan: Patient takes chronic opiates at home, resume (4) UTI (urinary tract infection): Plan: Urine culture positive for Klebsiella Oxytoca Continue Cefepime till tomorrow (5) Bacteremia: Plan: Blood cultures positive for E faecium, VRE Now on Daptomycin and Cefepime Obtain 2 d ECHO to r/o vegetations ID on consult (6) Anemia: Plan: probably anemia of chronic disease Transfused 1 unit of blood, Hb stable post transfusion (7) Chronic kidney disease, stage 4 (severe): Plan: Worsening renal function compared to the last time he was in the hospital. During his last admission, patient declined hemodialysis He is significantly fluid overloaded, on p.o. Bumex at home, will hold. Will start IV Bumex 2 mg And albumin Appreciate nephrology recs Avoid nephrotoxins (8) Acute on chronic respiratory failure with hypoxia: Plan: Secondary to PNA and pleural effusion continue supplemental oxygen consult Pulm (9) Pleural effusion: Plan: Post Thoracentesis (10) Debilitated: Plan: Patient lives at home, although he has a home sales consultant who comes once in a while He is significantly debilitated (11) Acute encephalopathy: Plan: acute toxic encephalopathy, secondary to PNA, UTI Now resolved Patient back to baseline mentation (12) Severe protein-calorie malnutrition: Plan: Patient looks very thin and cachectic Nutritional consult Nutritional supplements TID (13) Hypertension: Plan: Blood pressure under good control Will hold hydrochlorothiazide for now in view of worsening renal function (14) AAA (abdominal aortic aneurysm): Plan: stable (15) Respiratory failure with hypoxia: Plan: patient on 6L through nasal canula wean as tolerated Plan: patient wants to be discharged home During his last admission he refused hospice I spoke to her Daughter, who doubles as his POA Admission and Anticipated Discharge Date Admission Date: February 19, 2022 Subjective patient seen and examined, confused this morning Review of Systems Review of Systems: All systems reviewed are negative, apart from the ones contained in the history. Physical Exam Physical Exam: The patient is awake, alert confused, Cachectic HEENT--PERRL, EOMI, mucous membranes and oropharynx mildly dry Neck--supple. No JVD. No bruits. Thyroid normal, trachea midline, no adenopathy. Heart--normal S1 and S2. No murmurs, rubs or gallops. Lungs--Reduced air entry on auscultation, bibasilar crackles Abdomen--normal bowel sounds and soft. Mild epigastric and left sided abdominal pain Extremities--Bilateral pitting leg edema Dermatologic--normal skin turgor, normal color, no abnormal lymph nodes, no rash. Neurologic--cranial nerves II through XII grossly intact. Rheumatologic--normal range of motion. Psychiatric--normal affect. Results & Data Results & Data ([facility]) Vital Signs (Past 12 Hours) Vital Signs Temp Pulse Pulse Pulse Resp BP Pulse Ox 02/24/22 13:10 115 H 02/24/22 13:00 97.9 F 115 H 19 164/115 H 94 02/24/22 11:37 97.2 F L 110 H 19 163/88 H 96 02/24/22 10:44 155 H 02/24/22 08:08 97.5 F L 104 H 19 163/93 H 99 02/24/22 06:48 134 H 02/24/22 06:34 97.9 F 87 20 179/94 H 93 02/24/22 03:28 97.3 F L 93 H 20 146/84 H 92 PG Care Time/CCT Total # of Minutes Spent Total Time Spent with Patient: Total time spent is greater than 50% in coordination of care (as documented) at patient's floor/unit and/or counseling patient: Coding Level of Care Code 80874 Subseq Hosp Care Lvl 2 Diagnoses Pneumonia J18.9 Laterality: unspecified laterality Lung location: unspecified part of lung Pneumonia type: due to unspecified organism Chronic pain G89.29 Chronic pain type: other chronic pain UTI (urinary tract infection) N39.0 Bacteremia R78.81 Anemia D64.9 Anemia type: unspecified type Chronic kidney disease, stage 4 (severe) N18.4 Acute on chronic respiratory failure with hypoxia J96.21 Pleural effusion J90 Debilitated R53.81 Acute encephalopathy G93.40 Severe protein-calorie malnutrition E43 Hypertension I10 AAA (abdominal aortic aneurysm) I71.4 Respiratory failure with hypoxia J96.91 Acute encephalopathy G93.40 Time Spent (min) 35 (1) Pneumonia Laterality: unspecified laterality Lung location: unspecified part of lung Pneumonia type: due to unspecified organism Qualified Code(s): J18.9 - Pneumonia, unspecified organism (2) Chronic pain Chronic pain type: other chronic pain Qualified Code(s): G89.29 - Other chronic pain (3) Anemia Anemia type: unspecified type Qualified Code(s): D64.9 - Anemia, unspecified
[2022-02-24] MEDS: DAPTOmycin 550 MG in SYRINGE 0 ML IV SCH (14:14)
[2022-02-24] MEDS ORDERED: HALOPERIDOL LACTATE 5 MG/ML 1 ML VIAL IM STA ×2 (15:58→21:41)
[2022-02-24] MEDS ORDERED: HALOPERIDOL LACTATE 5 MG/ML 1 ML VIAL ONE (15:59)
[2022-02-24] MEDS ORDERED: MoRPHine SULFATE 2 MG/ML CARP IV STA (16:23)
[2022-02-24] MEDS ORDERED: MoRPHine SULFATE 2 MG/ML CARP ONE (16:25)
[2022-02-24] MEDS ORDERED: OLANZapine 10 MG/2.1 ML SDV IM STA (17:12)
[2022-02-24] MEDS: TAMSULOSIN HCL 0.4 MG CAP PO SCH ×2 (20:16→21:00)
--- NOTE | 2022-02-25 00:14 | Communication Note ---
Date of Service: February 25, 2022 I was called to assess this patient for worsening mental status and decreased responsiveness throughout the evening. Of note patient developed a-fib earlier this morning and had been on Cardizem gtt throughout the day until he reverted to NSR earlier this evening. Anti-coagulation was not initiated due to h/o GI bleed. Patient is spontaneously moving all extremities in bed and is visibly tachypneic in mid 20s while 6L/min NC is in place. He is normotensive and HR is in 90s - per tele monitor appears to be NSR with PACs. Satting in low 90s on 6L/min NC - no increased O2 requirement in comparison to previously during this hospitalization. He is not responsive to verbal, tactile or painful stimuli. His eyes are open but his pupils are both pin-point/2mm and not reactive to light. Coarse lung sounds bilaterally. Altered Mental Status: Given new-onset a-fib earlier today, this decreased responsiveness and pinpoint pupils is concerning for CVA vs other intracranial acute pathology. - ordered stat CT head w/o contrast for further evaluation - ordered CBC/CMP/Mg/Phos/Trop to eval for other causes - ordered UA and CXR as well, given that patient is here for bacteremia due to PNA/UTI
[2022-02-25 00:52] LABS: Basophils # (auto) 0.01 K/uL (0-0.2); Basophils % (auto) 0.1 %; Hematocrit (blood only) 26.8 % (42-52); Hemoglobin 8.9 g/dL (14.0-18.0); Immature Granulocytes # (auto) 0.04 K/uL (0.00-0.02); Immature Granulocytes % (auto) 0.3 %; Lymphocytes # (auto) 0.17 K/uL (1.2-3.4); Lymphocytes % (auto) 1.1 %; Mean Corpuscular Volume 99.3 fL (80-100); Mean Platelet Volume 9.8 fL (7.4-10.4); Monocytes # (auto) 0.74 K/uL (0.11-0.59); Monocytes % (auto) 4.7 %; Neutrophils # (auto) 14.83 K/uL (1.4-6.5); Neutrophils % (auto) 93.8 %; Nucleated RBC # (auto) 0.07 K/uL (0-0); Nucleated RBC % (auto) 0.5 %; Platelet Count 368 K/uL (130-400); RDW Coefficient of Variation 14.8 % (11.5-14.5); RDW Standard Deviation 52.5 fL (36.4-46.3); White Blood Count 15.79 K/uL (4.8-10.8)
[2022-02-25 00:58] LABS: Mean Corpuscular Hgb Conc 33.2 g/dL (32-36)
[2022-02-25 01:20] LABS: Appearance Urine Clear (Clear); Bacteria Urine Automated Negative (Negative); Bilirubin Urine Negative (Negative); Blood Urine 2+ (Negative); Color Urine Yellow; Epithelial Cell Urine Auto 20-30 /lpf (0-5); Glucose Urine UA Negative (Negative); Ketones Urine Negative (Negative); Leukocyte Esterase Urine 2+ (Negative); Nitrite Urine Negative (Negative); Protein Urine 2+ (Negative); Specific Gravity Urine 1.011 (1.000-1.030); Urobilinogen Urine Negative (Negative); WBC Urine Automated >30 /hpf (0-5)
[2022-02-25 01:23] LABS: Est GFR (African American) 16.1 ml/min; Est GFR (Non-African American) 13.9 ml/min; Potassium 4.6 mmol/L (3.5-5.1)
[2022-02-25 01:24] LABS: Albumin Globulin Ratio 0.9 (0.9-2); Albumin Level 3.5 gm/dl (3.4-5.0); BUN Creatinine Ratio 23.8 (10-20); Bilirubin,Total 0.4 mg/dl (0.2-1.0); Calcium 8.8 mg/dl (8.5-10.1); Creatinine Clr Calc Pharmacy 12.3 ml/min; Globulin 4.1 gm/dl (2.5-4.0); Magnesium 1.1 mg/dl (1.7-2.4); Phosphorus 5.4 mg/dl (2.5-4.9); Total Protein 7.6 gm/dl (6.0-8.3)
[2022-02-25] MEDS: MAGNESIUM SULFATE / D5W 1 GM/100 ML BAG IV SCH ×5 (01:40→09:02)
[2022-02-25 01:44] LABS: Troponin I High Sensitivity 38.2 pg/ml (0-20)
[2022-02-25 01:59] LABS: RBC Urine Automated 0-4 /hpf (0-4)
--- NOTE | 2022-02-25 06:08 | Electrocardiogram Report ---
Test Reason : Blood Pressure : / mmHG Vent. Rate : 100 BPM Atrial Rate : 100 BPM P-R Int : 122 ms QRS Dur : 084 ms QT Int : 372 ms P-R-T Axes : 056 048 073 degrees QTc Int : 479 ms Sinus rhythm with Premature supraventricular complexes Possible Left atrial enlargement Left ventricular hypertrophy Abnormal ECG When compared with ECG of 19-FEB-2022 14:32, ST no longer depressed in Inferior leads T wave inversion no longer evident in Inferior leads T wave inversion no longer evident in Lateral leads Confirmed by Wes Lai ([id number]) on 02/25/2022 6:08:06 AM Referred By: REFERRED SELF Confirmed By:Wes Lai
--- NOTE | 2022-02-25 06:28 | Electrocardiogram Report ---
Test Reason : Blood Pressure : / mmHG Vent. Rate : 164 BPM Atrial Rate : 091 BPM P-R Int : 000 ms QRS Dur : 084 ms QT Int : 286 ms P-R-T Axes : 000 063 180 degrees QTc Int : 472 ms Poor data quality, interpretation may be adversely affected Atrial fibrillation with rapid ventricular response Minimal voltage criteria for LVH, may be normal variant Nonspecific ST and T wave abnormality Abnormal ECG When compared with ECG of 24-FEB-2022 00:56, Atrial fibrillation has replaced Sinus rhythm Vent. rate has increased by 64 bpm Confirmed by Wes Lai ([id number]) on 02/25/2022 6:27:57 AM Referred By: REFERRED SELF Confirmed By:Wes Lai
[2022-02-25 06:31] LABS: Hematocrit (blood only) 27.6 % (42-52); Hemoglobin 8.9 g/dL (14.0-18.0); Mean Corpuscular Hemoglobin 32.1 pg (25-34); Mean Corpuscular Hgb Conc 32.2 g/dL (32-36); Mean Corpuscular Volume 99.6 fL (80-100); Mean Platelet Volume 10.2 fL (7.4-10.4); Nucleated RBC # (auto) 0.11 K/uL (0-0); Nucleated RBC % (auto) 0.7 %; Platelet Count 355 K/uL (130-400); RDW Coefficient of Variation 14.9 % (11.5-14.5); Red Blood Count 2.77 M/uL (4.7-6.1); White Blood Count 16.59 K/uL (4.8-10.8)
[2022-02-25 06:46] LABS: BUN Creatinine Ratio 24.1 (10-20); Calcium 8.7 mg/dl (8.5-10.1); Creatinine Clr Calc Pharmacy 12.1 ml/min; Est GFR (African American) 15.7 ml/min; Est GFR (Non-African American) 13.6 ml/min; Potassium 4.2 mmol/L (3.5-5.1)
--- NOTE | 2022-02-25 07:16 | XRay Report ---
XR chest 1V portable CLINICAL HISTORY: Follow-up right pleural effusion and alveolar opacities. COMPARISON STUDY: 02/24/2022 TECHNIQUE: 1 view of the chest FINDINGS: Single frontal view of the chest demonstrates the heart to again be enlarged. Compared to previous ex amination, there is again evidence for right pleural effusion and right basilar alveolar opacity. Thi s is characteristic of atelectasis versus pneumonia. Left lower lobe opacity is unchanged. The upper lungs are clear. There is minimal blunting of the left costophrenic angle now seen as well. There is no evidence for vascular congestion. There is no acute osseous pathology. IMPRESSION: 1. Compared to the previous examination, there is no significant interval change with right pleural e ffusion and right basilar alveolar opacity again seen. Differential includes atelectasis versus pneum onia. 2. No change in appearance of the minimal alveolar opacity at the left lung base with minimal bluntin g of left costophrenic angle now seen. ACT 112: Negative or not required by law. Electronically signed by: Geovanni Delacruz M.D. 02/25/2022 7:14 AM
--- NOTE | 2022-02-25 07:17 | CT Scan Report ---
CT head/brain wo con CLINICAL HISTORY: decreased responsiveness Technique: Contiguous axial CT images of the head were acquired from the base of the skull to the rasheed andre without intravenous contrast administration. Images were viewed in brain, subdural and bone [facility] . Automated dose lowering techniques and/or adjustment according to patient size were utilized for this exam. Comparison: Comparison is made to CT head 02/19/2022 Findings: Areas of decreased attenuation are present in the periventricular and subcortical white matter bilate rally consistent with small vessel ischemic disease. Generalized cerebral atrophy with commensurate e nlargement of the ventricles, sulci, and cisterns is also present. There is no acute intracranial hem orrhage or evidence of acute territorial infarction. No shift of the midline structures, mass effect, or extra-axial abnormalities are shown. Atherosclerotic calcifications are present in the intracran ial segments of the internal carotid arteries. Imaged portions of the paranasal sinuses and mastoid air cells are clear. The orbits appear normal. There are no acute fractures of the calvaria or scalp swelling. Impression: No acute intracranial hemorrhage, no evidence of acute territorial infarction or other acute intracra nial disease process. ACT 112: Negative or not required by law. Electronically signed by: Bobo Donaldson M.D. 02/25/2022 7:16 AM
[2022-02-25] MEDS: ASPIRIN 81 MG ECTAB PO SCH (08:00)
[2022-02-25] MEDS: PANTOprazole 40 MG TAB PO SCH (08:00)
[2022-02-25] MEDS: MULTIVITAMIN TAB PO SCH (08:00)
[2022-02-25] MEDS: BUMETANIDE 1 MG TAB PO SCH (08:00)
[2022-02-25] MEDS: FERROUS SULFATE 325 MG TAB PO SCH (08:00)
[2022-02-25] MEDS: METOPROLOL SUCC 50MG EXT REL TAB PO SCH (08:00)
[2022-02-25] MEDS: ADVANCED PROBIOTIC 1250 MG CAPSULE PO SCH (08:00)
[2022-02-25] MEDS: PATIROMER CALCIUM SORBITEX 8.4 GM PACK PO SCH (08:01)
[2022-02-25] MEDS: ENOXAPARIN INJ 30 MG/0.3 ML SYR SQ SCH (09:03)
[2022-02-25] MEDS: UMECLIDINIUM/VILANTEROL 62.5/25MCG 7 PUFFS/INHALER INH SCH (09:09)
[2022-02-25] MEDS: FLUTICASONE FUROATE 200MCG 14 PUFFS/INHALER INH SCH (09:09)
--- NOTE | 2022-02-25 10:35 | Nephrology Progress Note ---
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 Gonzalez this AM. I discussed Marivel condition with his daughter. Medications are currently appropriately dosed for kidney dysfunction. Dialysis will not be considered part of care plan based on prior discussions. Marivel condition is unfortunately guarded. Prognosis is very poor. Bumex and patiromer will be held for now. Electrolytes are acceptable. No additional immediate recommendations from nephrology for now. Admission and Anticipated Discharge Date Admission Date: February 19, 2022 Subjective Unresponsive this AM. Agitated yesterday followed by acute unresponsiveness. Events reviewed with bedside nurse and Dr. Gonzalez. No arrhythmia noted. CT head negative. I spoke with Usman' daughter, Allison, by phone this AM. Review of Systems Review of Systems: Unobtainable due to reduced consciousness Physical Exam Constitutional: + ill appearing, + cachectic and + frail appearing; no acute distress Eyes: + anicteric sclerae and + pinpoint pupils ENMT: Mouth: + dry oral mucous membranes; no oral mucosal abnormality Neck: normal visual inspection and trachea midline Respiratory: + uses accessory muscles and + tachypneic Auscultation: lungs clear to auscultation bilaterally Cardiovascular: Rate/Rhythm: regular rate Heart Sounds: normal S1 and normal S2 Extremities: no edema Musculoskeletal: Extremities: no cyanosis and no clubbing Skin: + turgor decreased; no lesions Neurologic: + obtunded Motor/Sensory: no tremor and no asterixis Results & Data ([facility]) Vital Signs (Past 12 Hours) Vital Signs Temp Pulse Pulse Resp BP BP Pulse Ox 02/25/22 08:00 84 02/25/22 07:08 36.4 C L 82 27 H 133/71 92 02/25/22 02:48 36.5 C 82 24 146/66 H 100 02/24/22 23:14 36.5 C 93 H 24 138/77 97 Laboratory Results Laboratory Results - last 24 hr 02/24/22 02/24/22 02/25/22 12:25 12:25 00:25 WBC 14.52 H RBC 2.91 L Hgb 9.2 L Hct 28.3 L MCV 97.3 MCH 31.6 MCHC 32.5 RDW Std Deviation 54.1 H RDW Coeff of Lucas 15.3 H Plt Count 412 H MPV 10.1 Immature Gran % (Auto) Neut % (Auto) Lymph % (Auto) [place] % (Auto) Eos % (Auto) Baso % (Auto) Neut # (Auto) Lymph # (Auto) [place] # (Auto) Eos # (Auto) Baso # (Auto) Immature Gran # (Auto) Absolute Nucleated RBC 0.02 H Nucleated RBC % (auto) 0.1 Sodium 132 L Potassium 4.5 Chloride 95 L Carbon Dioxide 27 Anion Gap 10 BUN 87 H Creatinine 3.53 H Est Cr Clr Drug Dosing 13.5 Est GFR ( Amer) 18.0 Est GFR (Non-Af Amer) 15.5 BUN/Creatinine Ratio 24.6 H Glucose 103 H Calcium 9.0 Phosphorus Magnesium Total Bilirubin AST ALT Alkaline Phosphatase Troponin I High Sens C-Reactive Protein 8.83 H Total Protein Albumin Globulin Albumin/Globulin Ratio Urine Color Yellow Urine Appearance Clear Urine pH 5.0 Ur Specific [place] 1.011 Urine Protein 2+ H Urine Glucose (UA) Negative Urine Ketones Negative Urine Blood 2+ H Urine Nitrite Negative Urine Bilirubin Negative Urine Urobilinogen Negative Ur Leukocyte Esterase 2+ H Urine WBC (Auto) >30 H Urine RBC (Auto) 0-4 U Hyaline Cast (Auto) 1-5 U Epithel Cells (Auto) 20-30 H Urine Bacteria (Auto) Negative Urine Yeast Present A 02/25/22 02/25/22 02/25/22 00:41 00:41 05:53 WBC 15.79 H 16.59 H RBC 2.70 L 2.77 L Hgb 8.9 L 8.9 L Hct 26.8 L 27.6 L MCV 99.3 99.6 MCH 33.0 32.1 MCHC 33.2 32.2 RDW Std Deviation 52.5 H 54.0 H RDW Coeff of Lucas 14.8 H 14.9 H Plt Count 368 355 MPV 9.8 10.2 Immature Gran % (Auto) 0.3 Neut % (Auto) 93.8 Lymph % (Auto) 1.1 [place] % (Auto) 4.7 Eos % (Auto) 0.0 Baso % (Auto) 0.1 Neut # (Auto) 14.83 H Lymph # (Auto) 0.17 L [place] # (Auto) 0.74 H Eos # (Auto) 0.00 Baso # (Auto) 0.01 Immature Gran # (Auto) 0.04 H Absolute Nucleated RBC 0.07 H 0.11 H Nucleated RBC % (auto) 0.5 0.7 Sodium 133 L Potassium 4.6 Chloride 95 L Carbon Dioxide 27 Anion Gap 11 BUN 92 H Creatinine 3.87 H D Est Cr Clr Drug Dosing 12.3 Est GFR ( Amer) 16.1 Est GFR (Non-Af Amer) 13.9 BUN/Creatinine Ratio 23.8 H Glucose 139 H Calcium 8.8 Phosphorus 5.4 H Magnesium 1.1 L Total Bilirubin 0.4 AST 25 ALT 12 Alkaline Phosphatase 44 Troponin I High Sens 38.2 H D C-Reactive Protein Total Protein 7.6 Albumin 3.5 Globulin 4.1 H Albumin/Globulin Ratio 0.9 Urine Color Urine Appearance Urine pH Ur Specific [place] Urine Protein Urine Glucose (UA) Urine Ketones Urine Blood Urine Nitrite Urine Bilirubin Urine Urobilinogen Ur Leukocyte Esterase Urine WBC (Auto) Urine RBC (Auto) U Hyaline Cast (Auto) U Epithel Cells (Auto) Urine Bacteria (Auto) Urine Yeast 02/25/22 05:53 WBC RBC Hgb Hct MCV MCH MCHC RDW Std Deviation RDW Coeff of Lucas Plt Count MPV Immature Gran % (Auto) Neut % (Auto) Lymph % (Auto) [place] % (Auto) Eos % (Auto) Baso % (Auto) Neut # (Auto) Lymph # (Auto) [place] # (Auto) Eos # (Auto) Baso # (Auto) Immature Gran # (Auto) Absolute Nucleated RBC Nucleated RBC % (auto) Sodium 132 L Potassium 4.2 Chloride 96 L Carbon Dioxide 26 Anion Gap 10 BUN 95 H Creatinine 3.94 H Est Cr Clr Drug Dosing 12.1 Est GFR ( Amer) 15.7 Est GFR (Non-Af Amer) 13.6 BUN/Creatinine Ratio 24.1 H Glucose 154 H Calcium 8.7 Phosphorus Magnesium Total Bilirubin AST ALT Alkaline Phosphatase Troponin I High Sens C-Reactive Protein Total Protein Albumin Globulin Albumin/Globulin Ratio Urine Color Urine Appearance Urine pH Ur Specific [place] Urine Protein Urine Glucose (UA) Urine Ketones Urine Blood Urine Nitrite Urine Bilirubin Urine Urobilinogen Ur Leukocyte Esterase Urine WBC (Auto) Urine RBC (Auto) U Hyaline Cast (Auto) U Epithel Cells (Auto) Urine Bacteria (Auto) Urine Yeast PG Care Time/CCT Total # of Minutes Spent Total Time Spent with Patient: Total time spent is greater than 50% in coordination of care (as documented) at patient's floor/unit and/or counseling patient: Coding Level of Care Code 77315 Subseq Hosp Care Lvl 3 Diagnoses 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 N18.5
[2022-02-25] MEDS ORDERED: MAGNESIUM SULFATE / D5W 1 GM/100 ML BAG IV SCH (11:30)
--- NOTE | 2022-02-25 11:41 | Cardiology Consultation ---
Date of Consultation February 25, 2022 Assessment & Plan (1) PAF (paroxysmal atrial fibrillation): -converted spontaneously back to sinus rhythm. -likely related to his terminal state. -agree with metoprolol succinate 100 mg daily. -could discontinue diltiazem drip. -not a candidate for anticoagulation. -could use IV amiodarone should he develop another paroxysm of rapid atrial fibrillation. (2) CAD (coronary artery disease): -s/p RCA PTCA, 1994. -new septal wall motion abnormality, March 2019. -current echocardiogram shows no obvious wall motion abnormality. -continue metoprolol succinate and aspirin. (3) Hypertension: -adequate control on current regimen. History of Present Illness Attending Physician: Rangel Gonzalez MD History of Present Illness Mr. Hilton is a 81 year male admitted on February 19 with pneumonia and mental status changes. He developed a paroxysm of atrial fibrillation yesterday prompting a transfer to the telemetry unit. This consultation was ordered to assistance in his cardiac management. Unfortunately, the patient is minimally responsive and cannot participate in an interview. The patient was placed on intravenous diltiazem and spontaneously converted to sinus rhythm. He has been in sinus rhythm since time. Review of the medical record finds no prior evidence of paroxysmal atrial fibrillation. The patient appears terminally ill at this time. Conservative medical management seems appropriate. He does carry history of coronary artery disease having undergone a PTCA the RCA back in 1994. In March 2019, the patient was found to have a new septal wall motion abnormality on an echocardiogram. Medical management was suggested. He is currently on intravenous antibiotics for a VRE bacteremia. Past medical and surgical history 1. Coronary artery disease-see above 2. RCA PTCA-1994 3. Hypertension 4. Hypercholesterolemia 5. AAA 6. COPD 7. GERD 8. Chronic renal failure 9. Essential tremor 10. Anemia of chronic disease 11. Malnutrition 12. Debilitation 13. Chronic pain syndrome 14. Chronic opioid use Social history , lives alone Smokes 1/2 pack cigarettes daily No alcohol Family history Unobtainable Review of systems Unobtainable Allergies Allergy/AdvReac Type Severity Reaction Status Date / Time cefuroxime Allergy Intermediate rash Verified 02/19/22 15:49 lisinopril Allergy Mild itching Verified 02/19/22 15:49 Home Medications Medication Instructions Recorded Confirmed Type aspirin 81 mg tablet,delayed 81 mg PO QAM 05/06/19 02/19/22 History release multivitamin (Daily Multi-Vitamin) 1 tab PO DAILY 05/28/21 02/19/22 History albuterol sulfate 90 mcg/actuation 2 inh INHALATION Q6H PRN #8.5 g 09/17/21 02/19/22 Rx aerosol inhaler ferrous sulfate 325 mg (65 mg 325 mg PO DAILY #30 tab 09/17/21 02/19/22 Rx iron) tablet,delayed release fluticasone fur. 200 mcg-umeclid 1 inh INHALATION DAILY #60 ea 09/17/21 02/19/22 Rx 62.5 mcg-vilant 25 mcg inhalat.powder (Trelegy Ellipta) mirtazapine 30 mg tablet 30 mg PO QPM #30 tab 09/17/21 02/19/22 Rx nitroglycerin 0.4 mg sublingual 0.4 mg SUBLINGUAL DIRECTED PRN 09/17/21 02/19/22 Rx tablet #25 tab tamsulosin 0.4 mg capsule 0.4 mg PO QPM #30 cap 09/17/21 02/19/22 Rx venlafaxine 37.5 mg 37.5 mg PO DAILY 30 Days #30 cap 09/17/21 02/19/22 Rx capsule,extended release 24 hr diltiazem HCl 120 mg 120 mg PO DAILY #90 cap 10/26/21 02/19/22 Rx capsule,extended release 24 hr ondansetron HCl 4 mg tablet 4 mg PO Q6H PRN #30 tab 11/12/21 02/19/22 Rx Lactobacillus acidoph-L.bulgaricus 1 tab PO DAILY #30 tab 12/06/21 02/19/22 Rx 1 million cell tablet (Floranex) darbepoetin paulette in polysorbat 40 40 mcg SUBCUT .q 2 weeks #1 ml 12/23/21 02/19/22 Rx mcg/mL in polysorbate injection omeprazole 40 mg capsule,delayed 40 mg PO DAILY #90 cap 01/12/22 02/19/22 Rx release bumetanide 1 mg tablet 1 mg PO DAILY #30 tab 01/15/22 02/19/22 Rx lorazepam 0.5 mg tablet 0.5 mg PO TID PRN #90 tab 01/19/22 02/19/22 Rx hydrochlorothiazide 25 mg tablet 25 mg PO DAILY #90 tab 01/31/22 02/19/22 Rx metoprolol succinate 50 mg 100 mg PO DAILY 30 Days #60 tab 01/31/22 02/19/22 Rx tablet,extended release 24 hr hydrocodone 10 mg-acetaminophen 2 tab PO Q6H PRN #240 tab MDD 8 02/14/22 02/19/22 Rx 325 mg tablet tabs patiromer calcium sorbitex 8.4 8.4 g PO UD 02/19/22 02/19/22 History gram oral powder packet (Veltassa) Patient History Medical History (Updated 02/25/22 @ 11:44 by Antonio Berrios MD) AAA (abdominal aortic aneurysm) Acute hypoxemic respiratory failure Acute on chronic renal failure Anemia of chronic disease Anxiety Bilateral pleural effusion CAD (coronary artery disease) PTCA with stent of RCA 1994 Chronic kidney disease, stage 4 (severe) Chronic pain Chronic renal insufficiency 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 exacerbation Essential tremor GERD (gastroesophageal reflux disease) Hyperkalemia Hyperlipidemia LDL goal <70 Hyperphosphatemia Hypertension Hypomagnesemia Lower urinary tract symptoms (LUTS) Multiple rib fractures Opioid dependence treated with opiates for chronic low back pain for 10+ years Septal myocardial infarction SOB (shortness of breath) 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 Tobacco abuse counseling Vitamin B12 deficiency Surgical History H/O heart artery stent (~1994) Family History Denies family history of Ovarian cancer Prostate cancer Myocardial infarction Breast cancer Colorectal cancer Social History Smoking Status: Heavy tobacco smoker Tobacco Type: Cigarettes Cigarettes Per Day: 10; Second Hand Exposure: No; Hx Alcohol Use: No Hx Substance Use: No Preferred Language: Indonesian Communication Ability: Effective Visual Impairment: No Limitations Hearing Ability: Normal Wire Stockkeeper Required: No Beliefs That Will Affect Care: None marital status: / Current Living Situation: Alone Current Living Situation Comment: Alone at home in apartment after of in March current occupational status: 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 He is not conversant. HEENT exam is negative. Neck is supple with full carotid upstrokes. No obvious bruits. Jugular venous pressure is difficult to assess. Cardiovascular exam reveals a regular rhythm with a normal S1-S2. A 1/6 basal systolic ejection murmur is noted. No S3 or S4. Lungs are clear anteriorly. Abdomen is soft. Extremities reveal intact radial artery pulses bilaterally. There is no peripheral edema. Results & Data ([facility]) Vital Signs (Past 12 Hours) Vital Signs Temp Pulse Pulse Pulse Resp BP BP 02/25/22 10:57 36.3 C L 83 28 H 129/76 02/25/22 08:00 84 02/25/22 07:08 36.4 C L 82 27 H 133/71 02/25/22 02:48 36.5 C 82 24 146/66 H Pulse Ox 02/25/22 10:57 100 02/25/22 08:00 02/25/22 07:08 92 02/25/22 02:48 100 Laboratory Results CBC notes hemoglobin of 8.9, hematocrit 27.6, white count 16.59, and platelet count of 314824. Electrolytes note a sodium of 132, potassium 4.2, chloride 96, bicarb 26, BUN 95, creatinine 3.94, and glucose of 154. High sensitivity troponin was 66.2 on presentation, follow-up values are 25.9 and 38.2. Diagnostic Findings EKG on February 24 noted atrial fibrillation with a rapid ventricular response. Follow-up tracing noted sinus rhythm with a left atrial abnormality. Echocardiogram notes normal systolic function with ejection fraction 50-55%. There are no obvious wall motion abnormalities. There was mild LVH along with moderate mitral and mild tricuspid regurgitation. No evidence of valvular vegetations. Compared with the study done in July 2021, no significant change. Chest x-ray notes a right pleural effusion and a right lower lobe infiltrate. PG Care Time/CCT Total # of Minutes Spent Total Time Spent with Patient: Total time spent is greater than 50% in coordination of care (as documented) at patient's floor/unit and/or counseling patient: Coding Level of Care Code 71285 Initial Inpt Care Lvl 3 Diagnoses PAF (paroxysmal atrial fibrillation) I48.0 CAD (coronary artery disease) I25.10 Hypertension I10
--- NOTE | 2022-02-25 12:40 | Hospitalist Progress Note ---
Date of Service February 25, 2022 Assessment & Plan (1) Acute encephalopathy: Plan: acute metabolic encephalopathy, probably multifactorial Patient is now unresponsive, having agonal breathing CT head yesterday did not show any acute pathology Chest x ray did not show any new changes (2) Pneumonia: Plan: Patient presents to the hospital with difficulty breathing and altered mental status. Chest x-ray was done which showed evidence of moderate pleural effusion and also lobar infiltrates consistent with pneumonia. Patient was discharged from this hospital November 30, 2021 after being treated for pneumonia. Blood cultures positive for E faecium, VRE Now on Daptomycin and Cefepime Per ID, plan was to discontinue Cefepime upon discharge and replace with PO Linezolid 600mg BID for 2 weeks Thoracentesis was done with removal of 650cc of fluid Patient has declined in the last 24 hrs Now unresponsive (3) Chronic pain: Plan: Patient takes chronic opiates at home Currently unable to take anything by mouth (4) UTI (urinary tract infection): Plan: Urine culture positive for Klebsiella Oxytoca Continue Cefepime (5) Bacteremia: Plan: Blood cultures positive for E faecium, VRE Now on Daptomycin and Cefepime Obtain 2 d ECHO to r/o vegetations ID on consult (6) Anemia: Plan: probably anemia of chronic disease Transfused 1 unit of blood, Hb stable post transfusion (7) Chronic kidney disease, stage 4 (severe): Plan: Worsening renal function compared to the last time he was in the hospital. During his last admission, patient declined hemodialysis He is significantly fluid overloaded, on p.o. Bumex at home, will hold. Will start IV Bumex 2 mg And albumin Appreciate nephrology recs Avoid nephrotoxins (8) Acute on chronic respiratory failure with hypoxia: Plan: Secondary to PNA and pleural effusion continue supplemental oxygen consult Pulm (9) Pleural effusion: Plan: Post Thoracentesis (10) Debilitated: Plan: Patient lives at home, although he has a research home economist who comes once in a while He is significantly debilitated (11) Severe protein-calorie malnutrition: Plan: Patient looks very thin and cachectic Nutritional consult Nutritional supplements TID (12) Hypertension: Plan: Blood pressure under good control Will hold hydrochlorothiazide for now in view of worsening renal function (13) AAA (abdominal aortic aneurysm): Plan: stable (14) Respiratory failure with hypoxia: Plan: patient on 6L through nasal canula wean as tolerated (15) PAF (paroxysmal atrial fibrillation): Plan: On Cardizen infusion Plan: I spoke to her Daughter, francisco who doubles as his POA, says her fathers wish is to remain Full code She herself understands that his prognosis is very poor and DNR would be a reasonable route Admission and Anticipated Discharge Date Admission Date: February 19, 2022 Subjective patient is now unresponsive. I had an extensive discussion with the daughter, Francisco Review of Systems Review of Systems: unable to obtain Physical Exam Physical Exam: Unresponsive, agonal breathingc HEENT--PERRL, EOMI, mucous membranes and oropharynx mildly dry Neck--supple. No JVD. No bruits. Thyroid normal, trachea midline, no adenopathy. Heart--normal S1 and S2. No murmurs, rubs or gallops. Lungs--Reduced air entry on auscultation, bibasilar crackles Abdomen--normal bowel sounds and soft. Mild epigastric and left sided abdominal pain Extremities--Bilateral pitting leg edema Dermatologic--normal skin turgor, normal color, no abnormal lymph nodes, no rash. Neurologic--unable to fully asess Rheumatologic--normal range of motion. Psychiatric--unable to assess Results & Data Results & Data ([facility]) Vital Signs (Past 12 Hours) Vital Signs Temp Pulse Pulse Pulse Resp BP BP 02/25/22 10:57 97.3 F L 83 28 H 129/76 02/25/22 08:00 84 02/25/22 07:08 97.5 F L 82 27 H 133/71 02/25/22 02:48 97.7 F 82 24 146/66 H Pulse Ox 02/25/22 10:57 100 02/25/22 08:00 02/25/22 07:08 92 02/25/22 02:48 100 PG Care Time/CCT Total # of Minutes Spent Total Time Spent with Patient: Total time spent is greater than 50% in coordination of care (as documented) at patient's floor/unit and/or counseling patient: Coding Level of Care Code 41080 Subseq Hosp Care Lvl 2 Diagnoses Acute encephalopathy G93.40 Pneumonia J18.9 Laterality: unspecified laterality Lung location: unspecified part of lung Pneumonia type: due to unspecified organism Chronic pain G89.29 Chronic pain type: other chronic pain UTI (urinary tract infection) N39.0 Bacteremia R78.81 Anemia D64.9 Anemia type: unspecified type Chronic kidney disease, stage 4 (severe) N18.4 Acute on chronic respiratory failure with hypoxia J96.21 Pleural effusion J90 Debilitated R53.81 Severe protein-calorie malnutrition E43 Hypertension I10 AAA (abdominal aortic aneurysm) I71.4 Respiratory failure with hypoxia J96.91 PAF (paroxysmal atrial fibrillation) I48.0 Time Spent (min) 35 (1) Pneumonia Laterality: unspecified laterality Lung location: unspecified part of lung Pneumonia type: due to unspecified organism Qualified Code(s): J18.9 - Pneumonia, unspecified organism (2) Chronic pain Chronic pain type: other chronic pain Qualified Code(s): G89.29 - Other chronic pain (3) Anemia Anemia type: unspecified type Qualified Code(s): D64.9 - Anemia, unspecified
[2022-02-25] MEDS: CEFEPIME 2,000 MG in SYRINGE 0 ML IV SCH (13:15)
[2022-02-25] MEDS: TAMSULOSIN HCL 0.4 MG CAP PO SCH (13:28)
--- NOTE | 2022-02-25 13:48 | Electrocardiogram Report ---
Test Reason : Blood Pressure : / mmHG Vent. Rate : 099 BPM Atrial Rate : 099 BPM P-R Int : 132 ms QRS Dur : 082 ms QT Int : 352 ms P-R-T Axes : 057 052 071 degrees QTc Int : 451 ms Sinus rhythm with Premature supraventricular complexes Possible Left atrial enlargement Left ventricular hypertrophy Abnormal ECG When compared with ECG of 24-FEB-2022 11:00, Significant changes have occurred Confirmed by Antonio Berrios ([id number]) on 02/25/2022 1:47:26 PM Referred By: REFERRED SELF Confirmed By:Antonio Berrios
[2022-02-25] MEDS ORDERED: MoRPHine SULFATE 2 MG/ML CARP IV PRN (14:06)
[2022-02-25] MEDS ORDERED: MoRPHine SULFATE 2 MG/ML CARP ONE (14:11)
--- NOTE | 2022-02-25 15:48 | Electrocardiogram Report ---
Test Reason : Blood Pressure : / mmHG Vent. Rate : 083 BPM Atrial Rate : 083 BPM P-R Int : 150 ms QRS Dur : 092 ms QT Int : 412 ms P-R-T Axes : 060 057 071 degrees QTc Int : 484 ms Normal sinus rhythm Possible Left atrial enlargement Left ventricular hypertrophy Prolonged QT Abnormal ECG When compared with ECG of 24-FEB-2022 16:13, (unconfirmed) Premature supraventricular complexes are no longer Present Confirmed by Antonio Berrios ([id number]) on 02/25/2022 3:48:50 PM Referred By: REFERRED SELF Confirmed By:Antonio Berrios
[2022-02-26] MEDS ORDERED: NOREPINEPHRINE/D5W 4 MG/250 ML IV ONE (04:27)
[2022-02-26 04:28] LABS: iSTAT Allen Test Pass; iSTAT Art Bld Gas pCO2 Correct 67 mmHg (35-46); iSTAT Art Bld Gas pH Corrected 7.214 (7.35-7.45); iSTAT Arterial Blood Gas HCO3 27 meg/L (19-24); iSTAT Arterial Blood Gas pCO2 69 mmHg (35-46); iSTAT Arterial Blood Gas pH 7.21 (7.35-7.45); iSTAT Arterial Blood Gas pO2 59 mmHg (80-95); iSTAT Arterial Blood Gas pO2 C 57; iSTAT Carbon Dioxide 29 mmol/L (24-31); iSTAT Hematocrit 26 % (42-52); iSTAT Hemoglobin 8.8 g/dl (14.0-18.0); iSTAT Potassium 4.8 mmol/L (3.3-5.0); iSTAT Site R Radial; iSTAT Sodium 132 mmol/L (135-144)
--- NOTE | 2022-02-26 04:39 | Communication Note ---
Date of Service: February 26, 2022 Notified by patient's RN at 0350 that he was becoming increasingly tachypneic with shallow breathing and decreasing oxygen saturations. His chart was reviewed and note was made of his unresponsive state throughout the day. On arrival in the room, patient was unresponsive to any stimuli. His breathing appeared rapid and shallow. Cardiac - tachycardic with regular rhythm, +S1/S2, difficult to appreciate murmurs with respiratory status. Respiratory - rapid shallow breathing with use of accessory muscles noted. Diminished breath sounds throughout with scattered rhonchi, R>L. Abdomen - soft/nt/nd. Extremities - trace peripheral edema in LEs bilaterally. Acute respiratory failure. Significant respiratory distress as noted on exam in this unresponsive patient. Ordered basic labs including ABG which demonstrated significant respiratory acidosis and hypoxemia -- 7.20/68/59/27. CXR was ordered - possible increase in size of RLL opacities/effusion. Given concern for impending respiratory demise, spoke with second watch sergeant optometric assistant who came to evaluate the patient for intubation given their CODE STATUS. I did reach out to the primary contact on the chart, Allison - his daughter and POA - to review this critical situation. She demonstrated extensive insight into his deteriorating health and the implications of this situation. We reviewed paths of care -- including aggressive medical therapies which included intubation and MV, versus shifting focus to comfort. She stated that her father, the patient, previously stated that in a situation like this one, he would want intubation. As such, team proceeded with intubation and mechanical ventilation. Patient will be transferred to ICU for further respiratory and hemodynamic monitoring. Plan of care transmitted to daughter. Can consider palliative consultation pending path forward. Await labs. Resident Activity Tracking Resident Involvement: Resident Care Provided Care Provided: Adult Hospital Medicine
[2022-02-26] MEDS ORDERED: STAT IV Infusion **Titration per Protocol STA ×2 (04:50→07:58)
[2022-02-26] MEDS ORDERED: ICU PROTOCOL FOR HYPERGLYCEMIA PRN (05:00)
[2022-02-26] MEDS ORDERED: MIDAZOLAM HCL 1 MG/ML 2ML VIAL IV PRN (05:00)
--- NOTE | 2022-02-26 05:12 | Procedure Note ---
Procedure Note Date of Service February 26, 2022 Note APC: Graham Oropeza PA-C. Attending: Anup Childress time-out was completed verifying correct patient, procedure, site, positioning. Patient was evaluated and required intubation for respiratory failure with impending cardiovascular collapse. Patient profoundly hypoxic on NIPPV and not taking tidal volumes. ABG shows CO2 retention. Resident had discussion with patient's daughter who wishes for us to proceed with intubation. Sedative agent used: None Paralysis agent used: None Emergent consent was implied given patients rapidly declining clinical status and need for airway protection. The patient was prepared in the appropriate fashion. Sedation was not required as the patient was obtunded and periarrest. The patient was easily ventilated using [id number] to achieve adequate oxygenation. A 7.5 Albanian endotracheal tube was placed using GlideScope to 25 cm at the lip. The stylette was removed and balloon was inflated with 10mL of air. Appropriate Colorimetric change was appreciated. Bilateral breath sounds were heard without air sounds in the abdomen. Post Intubation Chest X-ray confirms placement without pneumothorax. Patient tolerated the procedure well and there were no immediate complications. Coding CPT Codes Resuscitation - Resuscitation: 30863 Endotracheal Intubation, emergency ([id number]) [facility] Procedure Codes (Charges) Resuscitation Resuscitation: 91551 Endotracheal Intubation, emergency
--- NOTE | 2022-02-26 05:14 | Critical Care Consultation ---
Date of Consultation February 26, 2022 Assessment & Plan (1) Admitted to intensive care unit: Reason Critically Ill: 81-year-old male with acute hypoxic respiratory failure requiring emergent endotracheal intubation for airway protection. NEURO - * CAM ICU: Unable to assess. * AMS: * Mental status has appeared to decline over the last several hours. * CT head initially obtained w/o acute findings. * Provider notes suggest patient unresponsive all day yesterday. Despite this, he had been maintaining his airway. * Patient had previously felt strongly about remaining a full code during hospitalization. Daughter confirms. * AMS likely multifactorial in the critically ill patient w/ pneumonia, hypoxemia, and uremia. CARDIAC/VASCULAR - * A fib: * Previously requiring cardizem. * orders placed for IV metoprolol. * Patient w/ brief period of hypotension - resolved w/ intubation. This, in association w/ hypoxia and developing bradycardia, likely represented the kerry-arrest time just prior to decision to intubate. * Monitor on telemetry. RESPIRATORY - * Acute Hypoxic Respiratory Failure w/ Hypercapnia: * Concerning in the COPD patient w/ AMS. * Intubated for airway protection and appropriate ventilatory support. * Patient unable to engage the BiPAP machine to adequately ventilate. * Options of intubation versus proceeding w/ comfort measures were discussed w/ daughter (via resident) who wishes to uphold patient's wishes for intubation. * Will obtain post intubation ABG. * Titrate down ventilator settings as tolerated. * Pneumonia: * Continue current outlined antibiotic treatment course. * Sputum C&S * Pleural Effusion: * Appears to have reaccumulated over a short period of time. GI/NUTRITION - * Severe protein calorie malnutrition: * Consult dietary for appropriate tube feeds. RENAL/LYTES - * Renal Failure: * Patient w/ declining renal function during current hospitalization. * Patient had previously decline HD. * Ongoing mgmt per Nephro - * Hdz in place - Strict I&Os. ENDO - * No h/o DM * BSGs per unit protocol. ISS --> gtt per unit policy. HEME - * Anemia * Appears to be on more of a chronic basis at this time. ID - * Pneumonia: * Ongoing Cefepime per ID recommendations. * Dapto I'm assuming for ?? bacteremia as this would not provide appropriate lung penetration.. LINES/IV ACCESS - * PIVs x2 * ETT * Hdz DVT PROPHYLAXIS - * 45 * SCDs I have personally spent [] minutes of critical care time in the direct management of this patient. This is a life/limb threatening event. This includes time spent evaluating patient, direct bedside care, chart review, placing orders, interpretation of diagnostic studies, discussion with consultants, patient, and family members, as well as other required patient management activities. This time is exclusive of all separately billable procedures, and teaching time and separate from and in addition to any other critical care service time. Thank you for allowing us to participate in the care of this patient. Please refer to my attending physician's documentation for any further recommendations. 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 I had a lengthy discussion with the patient's POA, daughter, over the phone. She relates that she would like to change Mr. Hilton's CODE STATUS to a DNR in the event of a cardiac arrest. She understands that his illness is very severe and his prognosis is very guarded. He currently has myoclonic jerking activity which is likely related to his uremia. EEG has been completed and interpretation is pending. We will continue the patient on propofol for suppression of the jerking activity. When sedation is weaned, the patient does patient does spontaneously breathe, but otherwise his activity is very minimal. History of Present Illness Attending Physician: Rangel Gonzalez MD History of Present Illness Patient is a 81-year-old male with a significant past medical history of chronic respiratory failure with hypoxia, A. fib, pneumonia, CKD 5, COPD, CHF, hypertension, severe protein calorie malnutrition, AAA, opioid dependence, anxiety, coronary artery disease, and urinary tract infections. Patient was admitted to this institution with worsening hypoxia. He has been evaluated and currently treated for pneumonia. Unfortunately, over the last 48 hours, his condition has declined and he remained minimally responsive throughout the day yesterday. Unfortunately, the patient's situation changed and he was completely unresponsive. He was agonal breathing and requiring BiPAP which was an escalation from his 6 L oxime mask he had been utilizing prior. I was approached by overnight resident staff and asked to evaluate the patient. He remains full code at the request of his family. Upon assessing the patient at bedside in room 212, the patient is obtunded and agonal he breathing. Patient's heart rate was noted to dip from the 80s to the 40s. He had associated hypoxia. Resident did reach out to family he requests intubation. The patient was emergently intubated given impending cardiovascular collapse in the setting of respiratory failure. Patient to be transferred to the ICU for ongoing management. Allergies Allergy/AdvReac Type Severity Reaction Status Date / Time cefuroxime Allergy Intermediate rash Verified 02/19/22 15:49 lisinopril Allergy Mild itching Verified 02/19/22 15:49 Home Medications Medication Instructions Recorded Confirmed Type aspirin 81 mg tablet,delayed 81 mg PO QAM 05/06/19 02/19/22 History release multivitamin (Daily Multi-Vitamin) 1 tab PO DAILY 05/28/21 02/19/22 History albuterol sulfate 90 mcg/actuation 2 inh INHALATION Q6H PRN #8.5 g 09/17/21 02/19/22 Rx aerosol inhaler ferrous sulfate 325 mg (65 mg 325 mg PO DAILY #30 tab 09/17/21 02/19/22 Rx iron) tablet,delayed release fluticasone fur. 200 mcg-umeclid 1 inh INHALATION DAILY #60 ea 09/17/21 02/19/22 Rx 62.5 mcg-vilant 25 mcg inhalat.powder (Trelegy Ellipta) mirtazapine 30 mg tablet 30 mg PO QPM #30 tab 09/17/21 02/19/22 Rx nitroglycerin 0.4 mg sublingual 0.4 mg SUBLINGUAL DIRECTED PRN 09/17/21 02/19/22 Rx tablet #25 tab tamsulosin 0.4 mg capsule 0.4 mg PO QPM #30 cap 09/17/21 02/19/22 Rx venlafaxine 37.5 mg 37.5 mg PO DAILY 30 Days #30 cap 09/17/21 02/19/22 Rx capsule,extended release 24 hr diltiazem HCl 120 mg 120 mg PO DAILY #90 cap 10/26/21 02/19/22 Rx capsule,extended release 24 hr ondansetron HCl 4 mg tablet 4 mg PO Q6H PRN #30 tab 11/12/21 02/19/22 Rx Lactobacillus acidoph-L.bulgaricus 1 tab PO DAILY #30 tab 12/06/21 02/19/22 Rx 1 million cell tablet (Floranex) darbepoetin paulette in polysorbat 40 40 mcg SUBCUT .q 2 weeks #1 ml 12/23/21 02/19/22 Rx mcg/mL in polysorbate injection omeprazole 40 mg capsule,delayed 40 mg PO DAILY #90 cap 01/12/22 02/19/22 Rx release bumetanide 1 mg tablet 1 mg PO DAILY #30 tab 01/15/22 02/19/22 Rx lorazepam 0.5 mg tablet 0.5 mg PO TID PRN #90 tab 01/19/22 02/19/22 Rx hydrochlorothiazide 25 mg tablet 25 mg PO DAILY #90 tab 01/31/22 02/19/22 Rx metoprolol succinate 50 mg 100 mg PO DAILY 30 Days #60 tab 01/31/22 02/19/22 Rx tablet,extended release 24 hr hydrocodone 10 mg-acetaminophen 2 tab PO Q6H PRN #240 tab MDD 8 02/14/22 02/19/22 Rx 325 mg tablet tabs patiromer calcium sorbitex 8.4 8.4 g PO UD 02/19/22 02/19/22 History gram oral powder packet (Veltassa) Patient History Medical History AAA (abdominal aortic aneurysm) Acute hypoxemic respiratory failure Acute on chronic renal failure Anemia of chronic disease Anxiety Bilateral pleural effusion CAD (coronary artery disease) PTCA with stent of RCA 1994 Chronic kidney disease, stage 4 (severe) Chronic pain Chronic renal insufficiency 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 exacerbation Essential tremor GERD (gastroesophageal reflux disease) Hyperkalemia Hyperlipidemia LDL goal <70 Hyperphosphatemia Hypertension Hypomagnesemia Lower urinary tract symptoms (LUTS) Multiple rib fractures Opioid dependence treated with opiates for chronic low back pain for 10+ years Septal myocardial infarction SOB (shortness of breath) 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 Tobacco abuse counseling Vitamin B12 deficiency Surgical History H/O heart artery stent (~1994) Family History Denies family history of Ovarian cancer Prostate cancer Myocardial infarction Breast cancer Colorectal cancer Social History Smoking Status: Heavy tobacco smoker Tobacco Type: Cigarettes Cigarettes Per Day: 10; Second Hand Exposure: No; Hx Alcohol Use: No Hx Substance Use: No Preferred Language: Maori Communication Ability: Effective Visual Impairment: No Limitations Hearing Ability: Normal Supervisor [employer] Required: No Beliefs That Will Affect Care: None marital status: / Current Living Situation: Alone Current Living Situation Comment: Alone at home in apartment after of in March current occupational status: 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 GENERAL - 81-year-old cachectic appearing male appearing his stated age who is in respiratory distress. Obtunded. SKIN - Without rashes. HEAD - NC/AT. EYES - Pupils equal bilaterally. EARS - No deformities of external structures noted on gross examination bilaterally. NOSE - Midline and without cyanosis. MOUTH/OROPHARYNX - Buccal mucosa pink and dry. NECK - Supple to palpation. No nuchal rigidity. LUNGS - Respiratory failure with agonal breathing. Poor inspiratory effort. CARDIAC - RRR with S1/S2. No murmur, rubs, or gallops appreciated. ABDOMEN - Abdominal contour scaphoid without pulsations or visible masses. BS normoactive all four quadrants. No tenderness, palpable masses, hepatosplenomegaly, or ascites noted. EXTREMITIES - No clubbing or peripheral cyanosis. Weak pulses throughout. NEUROLOGIC - Obtunded. Not responsive to painful stimuli. Agonal breathing. Results & Data Results & Data ([facility]) Vital Signs (Past 12 Hours) Vital Signs Temp Pulse Pulse Resp BP Pulse Ox 02/26/22 03:46 36.4 C L 102 H 24 135/67 91 02/25/22 22:40 36.5 C 90 24 123/64 97 02/25/22 22:17 89 05/27/22 19:45 36.4 C L 90 24 125/65 97 Coding Level of Care Code Critical Care 1st 30-74 mins Diagnoses Admitted to intensive care unit Z78.9 Respiratory failure J96.90 Acute encephalopathy G93.40 Pleural effusion J90 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 N18.5 Pneumonia J18.9 Laterality: unspecified laterality Lung location: unspecified part of lung Pneumonia type: due to unspecified organism Time Spent (min) 45 (1) Pneumonia Laterality: unspecified laterality Lung location: unspecified part of lung Pneumonia type: due to unspecified organism Qualified Code(s): J18.9 - Pneumonia, unspecified organism
[2022-02-26 05:15] LABS: iSTAT Allen Test Pass; iSTAT Art Bld Gas pCO2 Correct 59 mmHg (35-46); iSTAT Art Bld Gas pH Corrected 7.267 (7.35-7.45); iSTAT Arterial Blood Gas HCO3 27 meg/L (19-24); iSTAT Arterial Blood Gas pCO2 60 mmHg (35-46); iSTAT Arterial Blood Gas pH 7.26 (7.35-7.45); iSTAT Arterial Blood Gas pO2 170 mmHg (80-95); iSTAT Arterial Blood Gas pO2 C 167; iSTAT Carbon Dioxide 29 mmol/L (24-31); iSTAT FiO2 80 %; iSTAT Hematocrit 24 % (42-52); iSTAT Hemoglobin 8.2 g/dl (14.0-18.0); iSTAT Potassium 4.7 mmol/L (3.3-5.0); iSTAT Site R Radial; iSTAT Sodium 131 mmol/L (135-144)
[2022-02-26 05:44] LABS: Hematocrit (blood only) 26.7 % (42-52); Hemoglobin 8.2 g/dL (14.0-18.0); Immature Granulocytes # (auto) 0.03 K/uL (0.00-0.02); Immature Granulocytes % (auto) 0.3 %; Lymphocytes # (auto) 0.19 K/uL (1.2-3.4); Lymphocytes % (auto) 1.6 %; Mean Corpuscular Hemoglobin 31.3 pg (25-34); Mean Corpuscular Hgb Conc 30.7 g/dL (32-36); Mean Corpuscular Volume 101.9 fL (80-100); Monocytes # (auto) 0.66 K/uL (0.11-0.59); Monocytes % (auto) 5.7 %; Neutrophils # (auto) 10.67 K/uL (1.4-6.5); Neutrophils % (auto) 92.4 %; Nucleated RBC # (auto) 0.37 K/uL (0-0); Nucleated RBC % (auto) 3.2 %; Platelet Count 362 K/uL (130-400); RDW Coefficient of Variation 15.4 % (11.5-14.5); RDW Standard Deviation 55.4 fL (36.4-46.3); Red Blood Count 2.62 M/uL (4.7-6.1); White Blood Count 11.55 K/uL (4.8-10.8)
[2022-02-26 06:05] LABS: Polychromasia 1+
[2022-02-26] MEDS: NOREPINEPHRINE/D5W 4 MG/250 ML PLCT IV SCH (06:07)
[2022-02-26 06:14] LABS: Albumin Globulin Ratio 0.8 (0.9-2); Albumin Level 3.1 gm/dl (3.4-5.0); BUN Creatinine Ratio 22.5 (10-20); Bilirubin,Total 0.3 mg/dl (0.2-1.0); Calcium 8.4 mg/dl (8.5-10.1); Creatinine Clr Calc Pharmacy 10.1 ml/min; Est GFR (African American) 12.7 ml/min; Est GFR (Non-African American) 10.9 ml/min; Globulin 3.8 gm/dl (2.5-4.0); Potassium 4.8 mmol/L (3.5-5.1); Total Protein 6.9 gm/dl (6.0-8.3)
[2022-02-26] MEDS ORDERED: Nursing to Pharmacy Communication SCH (06:15)
--- NOTE | 2022-02-26 07:03 | XRay Report ---
SINGLE VIEW CHEST CLINICAL HISTORY: Endotracheal and enteric tube placement. FINDINGS: 2 AP, portable, upright chest radiographs are compared to study performed earlier the same day 02/26/2022. Correlation is made with chest CT dated 08/14/2021. The examination is degraded by por table technique and patient rotation. An enteric tube has been placed. The tip projects below the shawn phragm over the mid stomach. An endotracheal tube has been placed. The tip projects approximately 5.5 cm above the eleonora. The heart is mildly enlarged noting atherosclerotic calcification of the thorac ic aorta. Enlargement of the central pulmonary arteries suggests pulmonary artery hypertension. There is pulmonary vascular congestion. Emphysema and chronic interstitial thickening is similar to previo us. There are right larger than left pleural effusions with dependent consolidation. No pneumothorax is seen. The skeletal structures are osteopenic. The bony thorax is grossly intact. IMPRESSION: 1. Endotracheal and enteric tubes have been placed as above. 2. Cardiomegaly and emphysema with pulmonary vascular congestion. 3. Right larger than left pleural effusions with dependent consolidation. This could represent atelec tasis and/or pneumonia and clinical correlation will be required. Radiographic follow-up to resolutio n is recommended. ACT 112: Negative or not required by law. Electronically signed by: Andrew Watkins M.D. 02/26/2022 7:01 AM
--- NOTE | 2022-02-26 07:03 | XRay Report ---
SINGLE VIEW CHEST CLINICAL HISTORY: Dyspnea. Tachypnea. FINDINGS: An AP, portable, upright chest radiograph is compared to study dated 02/25/2022. Correlation is made with chest CT dated 08/14/2021. The examination is degraded by portable technique and patien t rotation. The heart is mildly enlarged noting atherosclerotic calcification of the thoracic aorta. Enlargement of the central pulmonary arteries suggests pulmonary artery hypertension. There is pulmon meng vascular congestion. Emphysema and chronic interstitial thickening is similar to previous. There are right larger than left pleural effusions with dependent consolidation. No pneumothorax is seen. T he skeletal structures are osteopenic. The bony thorax is grossly intact. IMPRESSION: 1. Cardiomegaly and emphysema with pulmonary vascular congestion. 2. Right larger than left pleural effusions with dependent consolidation. This could represent atelec tasis and/or pneumonia and clinical correlation will be required. Radiographic follow-up to resolutio n is recommended. ACT 112: Negative or not required by law. Electronically signed by: Andrew Watkins M.D. 02/26/2022 7:02 AM
[2022-02-26] MEDS: ACETAMINOPHEN SUSP 325 MG/10.15 ML UDC PO PRN ×2 (07:22→19:37)
[2022-02-26] MEDS: fentaNYL citrate 100 MCG/2 ML VIAL IV PRN ×5 (07:22→23:38)
[2022-02-26] MEDS ORDERED: PROPOFOL IV EMULSION 10 MG/ML 100 ML VIAL IV ONE (07:56)
[2022-02-26] MEDS: propofoL 1,000 MG/100 ML VIAL IV SCH ×2 (08:13→21:18)
--- NOTE | 2022-02-26 08:23 | Nephrology Progress Note ---
Date of Service February 26, 2022 Assessment & Plan (1) 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: Plan: * Patient required intubation and mechanical ventilation to protect his airway yesterday. This morning he appears to be in terminal condition (staffing executive re marco antonio patient has fixed pupils and no gag reflex when sedation is lifted) * Mr. Hilton had indicated that he does not want dialysis. This has been documented in the EMR on several occasions by several providers * Plan of care discussed w/ ICU team this am. Plan to continue supportive care. Await EEG results. Wean sedation as tolerated * ICU team has discussed clinical course w/ Allison (Mr. Hilton's daughter/POA) this morning. His code status has been changed to DNR Admission and Anticipated Discharge Date Admission Date: February 19, 2022 Subjective Mr. Hilton was evaluated in the ICU this morning. At the time of my evaluation he was sedated w/ Propofol and mechanically ventilated Review of Systems Review of Systems: Unobtainable due to endotracheal tube Physical Exam Constitutional: + malnourished (frail & chronically ill appearing) Eyes: pinpoint pupils, nonreactive ENMT: orotracheal intubation Neck: trachea midline, no thyromegaly Respiratory: coarse breath sounds anteriorly Cardiovascular: Rate/Rhythm: + tachycardic Extremities: + edema (1+ dependent pitting edema) Gastrointestinal (Abdomen): Inspection/Auscultation: + hypoactive bowel sounds Skin: no rashes, warm and dry Results & Data ([facility]) Vital Signs (Past 12 Hours) Vital Signs Temp Pulse Pulse Resp BP BP Pulse Ox 02/26/22 07:41 106 H 02/26/22 07:05 104 H 24 100 02/26/22 06:45 38.0 C H 107 H 24 154/105 H 100 02/26/22 06:30 38.0 C H 106 H 24 134/96 100 02/26/22 06:15 37.9 C H 102 H 24 155/97 H 99 02/26/22 06:00 37.8 C H 103 H 24 156/88 H 99 02/26/22 05:51 37.8 C H 100 H 24 155/78 H 100 02/26/22 05:30 37.7 C H 99 H 24 100 02/26/22 05:05 24 02/26/22 05:00 93 H 20 148/63 H 100 02/26/22 04:20 54 L 20 100 02/26/22 03:46 36.4 C L 102 H 24 135/67 91 02/25/22 22:40 36.5 C 90 24 123/64 97 02/25/22 22:17 89 Laboratory Results Laboratory Tests 02/25/22 02/26/22 02/26/22 00:25 05:30 05:30 WBC 11.55 H Hgb 8.2 L Hct 26.7 L Plt Count 362 Sodium 133 L Potassium 4.8 Chloride 96 L Carbon Dioxide 25 BUN 106 H Creatinine 4.71 H* D Glucose 91 Calcium 8.4 L AST 17 ALT 14 Ammonia Albumin 3.1 L Urine Color Yellow Urine Protein 2+ H Urine Glucose (UA) Negative Urine Blood 2+ H Urine WBC (Auto) >30 H Urine RBC (Auto) 0-4 Urine Bacteria (Auto) Negative Urine Yeast Present A 02/26/22 05:30 WBC Hgb Hct Plt Count Sodium Potassium Chloride Carbon Dioxide BUN Creatinine Glucose Calcium AST ALT Ammonia 31.0 Albumin Urine Color Urine Protein Urine Glucose (UA) Urine Blood Urine WBC (Auto) Urine RBC (Auto) Urine Bacteria (Auto) Urine Yeast PG Care Time/CCT Total # of Minutes Spent Total Time Spent with Patient: Total time spent is greater than 50% in coordination of care (as documented) at patient's floor/unit and/or counseling patient: Coding Level of Care Code 07120 Subseq Hosp Care Lvl 3 Diagnoses 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 N18.5
[2022-02-26 08:54] LABS: Influenza A virus by PCR Negative (Neg); Influenza B virus by PCR Negative (Neg); RSV by PCR Negative (Neg)
[2022-02-26 09:05] LABS: SARS CoV2 RNA(COVID-19) InHosp POSITIVE (Negative)
[2022-02-26] MEDS: UMECLIDINIUM/VILANTEROL 62.5/25MCG 7 PUFFS/INHALER INH SCH (09:32)
[2022-02-26] MEDS: ASPIRIN 81 MG CHEW GT SCH (09:37)
[2022-02-26] MEDS: FLUTICASONE FUROATE 200MCG 14 PUFFS/INHALER INH SCH (09:38)
[2022-02-26] MEDS: LANSOPRAZOLE 30 MG SOLTAB GT SCH (09:38)
[2022-02-26] MEDS: ADVANCED PROBIOTIC 1250 MG CAPSULE PO SCH (09:38)
[2022-02-26] MEDS: ENOXAPARIN INJ 30 MG/0.3 ML SYR SQ SCH (09:57)
[2022-02-26] MEDS: METOPROLOL SUCC 50MG EXT REL TAB PO SCH (09:58)
[2022-02-26] MEDS: METOPROLOL TARTRATE 1 MG/ML VIAL IV PRN ×2 (10:01→18:42)
[2022-02-26] MEDS: dexAMETHasone 6 MG in SYRINGE 0 ML IV SCH (10:49)
[2022-02-26] MEDS: FERROUS SULFATE 325 MG/7.4 ML UDP GT SCH (11:08)
[2022-02-26] MEDS: MULTI VIT W/MINERALS LIQUID 15 ML UDP GJT SCH (11:08)
--- NOTE | 2022-02-26 12:41 | Electroencephalogram ---
EEG Procedure Note Date of Service February 26, 2022 Start / End Times Start Time: 1025 End Time: [address] Hebert History 81 year old with seizure like activity in an unresponsive state Home Medication List Medication Instructions Recorded Confirmed Type aspirin 81 mg tablet,delayed 81 mg PO QAM 05/06/19 02/19/22 History release multivitamin (Daily Multi-Vitamin) 1 tab PO DAILY 05/28/21 02/19/22 History albuterol sulfate 90 mcg/actuation 2 inh INHALATION Q6H PRN #8.5 g 09/17/21 02/19/22 Rx aerosol inhaler ferrous sulfate 325 mg (65 mg 325 mg PO DAILY #30 tab 09/17/21 02/19/22 Rx iron) tablet,delayed release fluticasone fur. 200 mcg-umeclid 1 inh INHALATION DAILY #60 ea 09/17/21 02/19/22 Rx 62.5 mcg-vilant 25 mcg inhalat.powder (Trelegy Ellipta) mirtazapine 30 mg tablet 30 mg PO QPM #30 tab 09/17/21 02/19/22 Rx nitroglycerin 0.4 mg sublingual 0.4 mg SUBLINGUAL DIRECTED PRN 09/17/21 02/19/22 Rx tablet #25 tab tamsulosin 0.4 mg capsule 0.4 mg PO QPM #30 cap 09/17/21 02/19/22 Rx venlafaxine 37.5 mg 37.5 mg PO DAILY 30 Days #30 cap 09/17/21 02/19/22 Rx capsule,extended release 24 hr diltiazem HCl 120 mg 120 mg PO DAILY #90 cap 10/26/21 02/19/22 Rx capsule,extended release 24 hr ondansetron HCl 4 mg tablet 4 mg PO Q6H PRN #30 tab 11/12/21 02/19/22 Rx Lactobacillus acidoph-L.bulgaricus 1 tab PO DAILY #30 tab 12/06/21 02/19/22 Rx 1 million cell tablet (Floranex) darbepoetin maykel in polysorbat 40 40 mcg SUBCUT .q 2 weeks #1 ml 12/23/21 02/19/22 Rx mcg/mL in polysorbate injection omeprazole 40 mg capsule,delayed 40 mg PO DAILY #90 cap 01/12/22 02/19/22 Rx release bumetanide 1 mg tablet 1 mg PO DAILY #30 tab 01/15/22 02/19/22 Rx lorazepam 0.5 mg tablet 0.5 mg PO TID PRN #90 tab 01/19/22 02/19/22 Rx hydrochlorothiazide 25 mg tablet 25 mg PO DAILY #90 tab 01/31/22 02/19/22 Rx metoprolol succinate 50 mg 100 mg PO DAILY 30 Days #60 tab 01/31/22 02/19/22 Rx tablet,extended release 24 hr hydrocodone 10 mg-acetaminophen 2 tab PO Q6H PRN #240 tab MDD 8 02/14/22 02/19/22 Rx 325 mg tablet tabs patiromer calcium sorbitex 8.4 8.4 g PO UD 02/19/22 02/19/22 History gram oral powder packet (Veltassa) Inpatient Medication List Acetaminophen (Acetaminophen Susp 325 Mg/10.15 Ml Udc) 650 mg PO Q6H PRN PRN Reason: Fever Stop: 03/28/22 06:16 Last Admin: 02/26/22 07:22 Dose: 650 mg Documented by: [id number] Hydrocodone Bitart/Acetaminophen (Hydrocodone/Acetaminophen 10/325 Tab) 2 tab PO Q6H PRN PRN Reason: Pain Stop: 03/06/22 10:16 Last Admin: 02/24/22 20:15 Dose: 2 tab Documented by: [id number] Admin: 02/24/22 10:55 Dose: 2 tab Documented by: [id number] Admin: 02/24/22 01:00 Dose: 2 tab Documented by: [id number] Admin: 02/23/22 18:33 Dose: 2 tab Documented by: [id number] Admin: 02/23/22 10:11 Dose: 2 tab Documented by: [id number] Admin: 02/23/22 03:30 Dose: 2 tab Documented by: [id number] Admin: 02/22/22 21:35 Dose: 2 tab Documented by: [id number] Admin: 02/22/22 12:35 Dose: 2 tab Documented by: [id number] Admin: 02/21/22 23:28 Dose: 2 tab Documented by: [id number] Admin: 02/21/22 17:11 Dose: 2 tab Documented by: [id number] Admin: 02/21/22 11:19 Dose: 2 tab Documented by: [id number] Admin: 02/21/22 05:14 Dose: 2 tab Documented by: [id number] Admin: 02/20/22 23:03 Dose: 2 tab Documented by: [id number] Admin: 02/20/22 16:39 Dose: 2 tab Documented by: [id number] Admin: 02/20/22 10:32 Dose: 2 tab Documented by: [id number] Aspirin (Aspirin 81 Mg Chew) 81 mg GT QAM [facility] Stop: 03/28/22 08:59 Last Admin: 02/26/22 09:37 Dose: 81 mg Documented by: [id number] Bumetanide (Bumetanide 1 Mg Tab) 2 mg PO [id number] [facility] Stop: 03/24/22 16:59 Last Admin: 02/25/22 08:00 Dose: Not Given Documented by: [id number] Admin: 02/24/22 17:26 Dose: 2 mg Documented by: [id number] Admin: 02/24/22 11:22 Dose: 2 mg Documented by: [id number] Admin: 02/23/22 17:52 Dose: 2 mg Documented by: [id number] Admin: 02/23/22 09:01 Dose: 2 mg Documented by: [id number] Admin: 02/22/22 17:29 Dose: 2 mg Documented by: [id number] Enoxaparin Sodium (Enoxaparin Inj 30 Mg/0.3 Ml Syr) [facility] [place]: 03/27/22 08:59 Last Admin: 02/26/22 09:57 Dose: 30 mg Documented by: [id number] Admin: 02/25/22 09:03 Dose: 30 mg Documented by: [id number] Fentanyl Citrate (Fentanyl Citrate 100 Mcg/2 Ml Vial) 25 mcg IV Q2H PRN PRN Reason: Moderate Pain (4,5,6) on NRS Stop: 03/12/22 04:59 Last Admin: 02/26/22 07:22 Dose: 25 mcg Documented by: [id number] Ferrous Sulfate (Ferrous Sulfate 325 Mg/7.4 Ml Udp) 325 mg GT DAILY [facility] Stop: 03/28/22 08:59 Last Admin: 02/26/22 11:08 Dose: 325 mg Documented by: [id number] Fluticasone Furoate (Fluticasone Furoate 200mcg 14 Puffs/Inhaler) 1 puffs INH DAILY [facility]; Protocol Stop: 03/21/22 20:59 Last Admin: 02/26/22 09:38 Dose: Not Given Documented by: [id number] Admin: 02/25/22 09:09 Dose: Not Given Documented by: [id number] Admin: 02/24/22 11:20 Dose: Not Given Documented by: [id number] Admin: 02/23/22 08:58 Dose: 1 puffs Documented by: [id number] Admin: 02/22/22 08:42 Dose: 1 puffs Documented by: [id number] Admin: 02/21/22 08:25 Dose: 1 puffs Documented by: [id number] Admin: 02/20/22 10:33 Dose: 1 puffs Documented by: [id number] Admin: 02/19/22 21:36 Dose: 1 puffs Documented by: [id number] Cefepime HCl 2,000 mg/ Syringe 20 mls @ 5 mls/min IV DAILY@1400 [facility]; Protocol Stop: 02/27/22 13:59 Last Admin: 02/25/22 13:15 Dose: 5 mls/min Documented by: [id number] Admin: 02/24/22 13:43 Dose: 5 mls/min Documented by: [id number] Admin: 02/23/22 14:24 Dose: 5 mls/min Documented by: [id number] Admin: 02/22/22 16:43 Dose: 5 mls/min Documented by: [id number] Admin: 02/21/22 14:12 Dose: 5 mls/min Documented by: [id number] Admin: 02/20/22 14:14 Dose: 5 mls/min Documented by: [id number] Daptomycin 550 mg/ Syringe 11 mls @ 5.5 mls/min IV Q48H [facility]; Protocol Stop: 03/08/22 07:59 Last Admin: 02/24/22 14:14 Dose: 5.5 mls/min Documented by: [id number] Admin: 02/22/22 08:39 Dose: 5.5 mls/min Documented by: [id number] Diltiazem HCl 125 mg/ Dextrose 125 mls @ 0 mls/hr IV .Q0M [facility]; Protocol Stop: 03/26/22 11:14 Last Titration: 02/24/22 18:47 Dose: 0 mg/hr, 0 mls/hr Documented by: [id number] Cosigned by: [id number] Admin: 02/24/22 13:03 Dose: 5 mg/hr, 5 mls/hr Documented by: [id number] Cosigned by: [id number] Norepinephrine Bitartrate (Levophed/D5w) 4 mg in 250 mls @ 10.575 mls/hr IV .[id number] [facility]; Protocol Stop: 03/28/22 04:59 Last Admin: 02/26/22 06:07 Dose: Not Given Documented by: [id number] Propofol (Diprivan) 1,000 mg in 100 mls @ 0 mls/hr IV .Q0M [facility]; Protocol Stop: 03/01/22 07:59 Last Titration: 02/26/22 09:40 Dose: 0 mcg/kg/min, 0 mls/hr Documented by: [id number] Admin: 02/26/22 08:13 Dose: 20 mcg/kg/min, 6.8 mls/hr Documented by: [id number] Cosigned by: [id number] Dexamethasone 6 mg/ Syringe 1.5 mls @ 1 mls/min IV Q24H [facility] Stop: 03/28/22 09:59 Last Admin: 02/26/22 10:49 Dose: 1 mls/min Documented by: [id number] Lactobacillus Acidophilus (Advanced Probiotic 1250 Mg Capsule) 2 cap PO DAILY [facility] Stop: 03/22/22 11:29 Last Admin: 02/26/22 09:38 Dose: 2 cap Documented by: [id number] Admin: 02/25/22 08:00 Dose: Not Given Documented by: [id number] Admin: 02/24/22 11:20 Dose: Not Given Documented by: [id number] Admin: 02/23/22 09:00 Dose: 2 cap Documented by: [id number] Admin: 02/22/22 08:39 Dose: 2 cap Documented by: [id number] Admin: 02/21/22 08:21 Dose: 2 cap Documented by: [id number] Admin: 02/20/22 12:36 Dose: 2 cap Documented by: [id number] Lansoprazole (Lansoprazole 30 Mg Soltab) 30 mg GT DAILY [facility] Stop: 03/28/22 08:59 Last Admin: 02/26/22 09:38 Dose: 30 mg Documented by: [id number] Metoprolol Succinate (Metoprolol Succ 50mg Ext Rel Tab) 100 mg PO DAILY [facility] Stop: 03/22/22 08:59 Last Admin: 02/26/22 09:58 Dose: Not Given Documented by: [id number] Admin: 02/25/22 08:00 Dose: Not Given Documented by: [id number] Admin: 02/24/22 11:21 Dose: 100 mg Documented by: [id number] Admin: 02/23/22 09:01 Dose: 100 mg Documented by: [id number] Admin: 02/22/22 08:39 Dose: 100 mg Documented by: [id number] Admin: 02/21/22 08:22 Dose: 100 mg Documented by: [id number] Admin: 02/20/22 10:37 Dose: 100 mg Documented by: [id number] Metoprolol Tartrate (Metoprolol Tartrate 1 Mg/Ml Vial) 5 mg IV Q6 PRN PRN Reason: Tachycardia Stop: 03/28/22 11:59 Last Admin: 02/26/22 10:01 Dose: 5 mg Documented by: [id number] Multivitamins/Minerals (Multi Vit W/Minerals Liquid 15 Ml Udp) 15 ml GJT QAM [facility] Stop: 03/28/22 08:59 Last Admin: 02/26/22 11:08 Dose: 15 ml Documented by: [id number] Patiromer (Patiromer Calcium Sorbitex 8.4 Gm Pack) 8.4 gm PO DAILY [facility] Stop: 03/22/22 08:59 Last Admin: 02/25/22 08:01 Dose: Not Given Documented by: [id number] Admin: 02/24/22 11:20 Dose: Not Given Documented by: [id number] Admin: 02/23/22 13:02 Dose: 8.4 gm Documented by: [id number] Admin: 02/22/22 12:35 Dose: 8.4 gm Documented by: [id number] Admin: 02/21/22 08:35 Dose: 8.4 gm Documented by: [id number] Admin: 02/20/22 13:53 Dose: 8.4 gm Documented by: [id number] Tamsulosin HCl (Tamsulosin Hcl 0.4 Mg Cap) 0.4 mg PO QPM [facility] Stop: 03/21/22 20:59 Last Admin: 02/25/22 13:28 Dose: Not Given Documented by: [id number] Admin: 02/24/22 21:00 Dose: Not Given Documented by: [id number] Admin: 02/23/22 20:56 Dose: 0.4 mg Documented by: [id number] Admin: 02/22/22 21:35 Dose: 0.4 mg Documented by: [id number] Admin: 02/21/22 20:27 Dose: 0.4 mg Documented by: [id number] Admin: 02/20/22 20:48 Dose: 0.4 mg Documented by: [id number] Admin: 02/19/22 21:37 Dose: 0.4 mg Documented by: [id number] Umeclidinium/Vilanterol (Umeclidinium/Vilanterol 62.5/25mcg 7 Puffs/Inhaler) 1 puffs INH DAILY [facility]; Protocol Stop: 03/21/22 20:59 Last Admin: 02/26/22 09:32 Dose: Not Given Documented by: [id number] Admin: 02/25/22 09:09 Dose: Not Given Documented by: [id number] Admin: 02/24/22 11:21 Dose: Not Given Documented by: [id number] Admin: 02/23/22 08:58 Dose: 1 puffs Documented by: [id number] Admin: 02/22/22 08:42 Dose: 1 puffs Documented by: [id number] Admin: 02/21/22 08:25 Dose: 1 puffs Documented by: [id number] Admin: 02/20/22 10:32 Dose: 1 puffs Documented by: [id number] Admin: 02/19/22 21:37 Dose: 1 puffs Documented by: [id number] Venlafaxine HCl (Venlafaxine Hcl Xr 37.5 Mg Capxr) 37.5 mg PO DAILY [facility] Stop: 03/22/22 08:59 Last Admin: 02/25/22 08:01 Dose: Not Given Documented by: [id number] Discontinued Medications Hydrocodone Bitart/Acetaminophen (Hydrocodone/Acetamophen 5/325mg Tab) 1 tab PO ONCE ONE Stop: 02/23/22 15:05 Last Admin: 02/23/22 15:27 Dose: 1 tab Documented by: [id number] Albuterol (Albuterol Hfa 8 Gm Inhaler) 2 puffs INH Q6R PRN PRN Reason: shortness of breath or wheezin Stop: 03/21/22 20:11 Last Admin: 02/23/22 23:17 Dose: 2 puffs Documented by: [id number] Admin: 02/21/22 14:31 Dose: 2 puffs Documented by: [id number] Admin: 02/20/22 21:22 Dose: 2 puffs Documented by: [id number] Albuterol (Albut/Ipratrop 3mg/0.5mg Neb 3 Ml Vial) 3 ml NEB NOW STA; Protocol Stop: 02/20/22 17:33 Last Admin: 02/21/22 09:37 Dose: Not Given Documented by: [id number] Aspirin (Aspirin 81 Mg Ectab) 81 mg PO QAM [facility] Stop: 03/21/22 20:59 Last Admin: 02/25/22 08:00 Dose: Not Given Documented by: [id number] Admin: 02/24/22 11:22 Dose: 81 mg Documented by: [id number] Admin: 02/23/22 09:01 Dose: 81 mg Documented by: [id number] Admin: 02/22/22 08:41 Dose: 81 mg Documented by: [id number] Admin: 02/21/22 08:23 Dose: 81 mg Documented by: [id number] Admin: 02/20/22 10:35 Dose: 81 mg Documented by: [id number] Admin: 02/19/22 21:35 Dose: 81 mg Documented by: [id number] Diltiazem HCl (Diltiazem Hcl 120 Mg Capcr) 120 mg PO DAILY [facility] Stop: 03/21/22 20:59 Last Admin: 02/24/22 11:20 Dose: Not Given Documented by: [id number] Admin: 02/23/22 09:00 Dose: 120 mg Documented by: [id number] Admin: 02/22/22 08:41 Dose: 120 mg Documented by: [id number] Admin: 02/21/22 08:24 Dose: 120 mg Documented by: [id number] Admin: 02/20/22 10:37 Dose: 120 mg Documented by: [id number] Admin: 02/19/22 21:34 Dose: 120 mg Documented by: [id number] Epoetin Maykel (Epoetin Maykel 40,000 Units/Ml Vial) 40,000 units SQ NOW STA Stop: 02/20/22 11:20 Last Admin: 02/20/22 11:54 Dose: 40,000 units Documented by: [id number] Ferrous Sulfate (Ferrous Sulfate 325 Mg Tab) 325 mg PO DAILY [facility] Stop: 03/21/22 20:59 Last Admin: 02/25/22 08:00 Dose: Not Given Documented by: [id number] Admin: 02/24/22 11:20 Dose: Not Given Documented by: [id number] Admin: 02/23/22 08:59 Dose: 325 mg Documented by: [id number] Admin: 02/22/22 08:40 Dose: 325 mg Documented by: [id number] Admin: 02/21/22 08:24 Dose: 325 mg Documented by: [id number] Admin: 02/20/22 10:37 Dose: 325 mg Documented by: [id number] Admin: 02/19/22 21:35 Dose: 325 mg Documented by: [id number] Haloperidol Lactate (Haloperidol Lactate 5 Mg/Ml 1 Ml Vial) 5 mg IM NOW STA Stop: 02/24/22 15:59 Last Admin: 02/24/22 16:03 Dose: 5 mg Documented by: [id number] Haloperidol Lactate (Haloperidol Lactate 5 Mg/Ml 1 Ml Vial) Confirm Administered Dose 5 mg .ROUTE .STK-MED ONE Stop: 02/24/22 16:00 Last Admin: 02/24/22 16:02 Dose: Not Given Documented by: [id number] Haloperidol Lactate (Haloperidol Lactate 5 Mg/Ml 1 Ml Vial) 5 mg IM NOW STA Stop: 02/24/22 21:42 Last Admin: 02/24/22 21:51 Dose: 5 mg Documented by: [id number] Hydroxyzine HCl (Hydroxyzine Hcl 25 Mg Tab) 25 mg PO NOW STA Stop: 02/24/22 01:04 Last Admin: 02/24/22 01:16 Dose: 25 mg Documented by: [id number] Sodium Chloride (Nss 1000ml) 1,000 mls @ 999 mls/hr IV .Q1H1M ONE Stop: 02/19/22 15:32 Last Infusion: 02/19/22 16:27 Dose: 0 mls/hr Documented by: [id number] Admin: 02/19/22 15:12 Dose: 999 mls/hr Documented by: [id number] Piperacillin Sod/Tazobactam Sod (Zosyn) 4.5 gm in 120 mls @ 240 mls/hr IV NOW ONE Stop: 02/19/22 17:16 Last Infusion: 02/19/22 17:30 Dose: 0 mls/hr Documented by: [id number] Admin: 02/19/22 17:05 Dose: 240 mls/hr Documented by: [id number] Albumin Human (Albumin 25% 100 Ml) 25 gm in 100 mls @ 50 mls/hr IV Q24H [facility] Stop: 02/23/22 08:59 Last Infusion: 02/22/22 12:18 Dose: 0 mls/hr Documented by: [id number] Admin: 02/22/22 09:43 Dose: 50 mls/hr Documented by: [id number] Infusion: 02/21/22 13:08 Dose: 0 mls/hr Documented by: [id number] Admin: 02/21/22 11:09 Dose: 50 mls/hr Documented by: [id number] Infusion: 02/20/22 14:03 Dose: 0 mls/hr Documented by: [id number] Admin: 02/20/22 11:57 Dose: 50 mls/hr Documented by: [id number] Piperacillin Sod/Tazobactam (Sod 3.375 gm/ Dextrose) 115 mls @ 28.75 mls/hr IV Q12H [facility]; Protocol Stop: 02/27/22 01:59 Last Infusion: 02/20/22 06:33 Dose: 28.8 mls/hr Documented by: [id number] Admin: 02/20/22 02:25 Dose: 28.8 mls/hr Documented by: [id number] Bumetanide 2 mg/ Syringe 8 mls @ 4 mls/min IV BID@0900,1700 [facility] Stop: 03/22/22 08:59 Last Admin: 02/22/22 08:41 Dose: 4 mls/min Documented by: [id number] Admin: 02/21/22 16:45 Dose: 4 mls/min Documented by: [id number] Admin: 02/21/22 08:22 Dose: 4 mls/min Documented by: [id number] Admin: 02/20/22 16:39 Dose: 4 mls/min Documented by: [id number] Admin: 02/20/22 10:33 Dose: 4 mls/min Documented by: [id number] Linezolid (Zyvox) 600 mg in 300 mls @ 300 mls/hr IV Q12H [facility] Stop: 02/26/22 20:59 Last Infusion: 02/20/22 11:53 Dose: 0 mls/hr Documented by: [id number] Admin: 02/20/22 10:37 Dose: 300 mls/hr Documented by: [id number] Infusion: 02/19/22 23:19 Dose: 300 mls/hr Documented by: [id number] Admin: 02/19/22 21:30 Dose: 300 mls/hr Documented by: [id number] Vancomycin HCl 1,250 mg/ (Sodium Chloride) 275 mls @ 200 mls/hr IV NOW STA Stop: 02/20/22 13:08 Last Infusion: 02/20/22 14:03 Dose: 0 mls/hr Documented by: [id number] Admin: 02/20/22 12:36 Dose: 200 mls/hr Documented by: [id number] Vancomycin HCl 1,000 mg/ (Sodium Chloride) 270 mls @ 200 mls/hr IV ONE ONE Stop: 02/21/22 10:20 Last Infusion: 02/21/22 11:26 Dose: 0 mls/hr Documented by: [id number] Admin: 02/21/22 09:36 Dose: 200 mls/hr Documented by: [id number] Iron Sucrose 200 mg/ Sodium (Chloride) 110 mls @ 220 mls/hr IV TODAY@0932 ONE Stop: 02/24/22 10:01 Last Infusion: 02/24/22 12:06 Dose: 0 mls/hr Documented by: [id number] Admin: 02/24/22 11:04 Dose: 220 mls/hr Documented by: [id number] Magnesium Sulfate/Dextrose (Magnesium Sulfate / D5w) 1 gm in 100 mls @ 50 mls/hr IV Q2H [facility] Stop: 02/25/22 11:29 Last Infusion: 02/25/22 11:03 Dose: 0 mls/hr Documented by: [id number] Admin: 02/25/22 09:02 Dose: 50 mls/hr Documented by: [id number] Infusion: 02/25/22 09:02 Dose: 50 mls/hr Documented by: [id number] Admin: 02/25/22 07:15 Dose: 50 mls/hr Documented by: [id number] Infusion: 02/25/22 07:15 Dose: 50 mls/hr Documented by: [id number] Admin: 02/25/22 05:19 Dose: 50 mls/hr Documented by: [id number] Infusion: 02/25/22 05:19 Dose: 50 mls/hr Documented by: [id number] Admin: 02/25/22 03:39 Dose: 50 mls/hr Documented by: [id number] Infusion: 02/25/22 03:39 Dose: 50 mls/hr Documented by: [id number] Admin: 02/25/22 01:40 Dose: 50 mls/hr Documented by: [id number] Lorazepam (Lorazepam 0.5 Mg Tab) 0.5 mg PO TID PRN PRN Reason: anxiety Stop: 03/21/22 20:11 Last Admin: 02/24/22 06:33 Dose: 0.5 mg Documented by: [id number] Admin: 02/23/22 21:12 Dose: 0.5 mg Documented by: [id number] Admin: 02/23/22 14:23 Dose: 0.5 mg Documented by: [id number] Admin: 02/23/22 05:32 Dose: 0.5 mg Documented by: [id number] Admin: 02/22/22 21:35 Dose: 0.5 mg Documented by: [id number] Admin: 02/22/22 17:29 Dose: 0.5 mg Documented by: [id number] Admin: 02/22/22 05:35 Dose: 0.5 mg Documented by: [id number] Admin: 02/21/22 19:10 Dose: 0.5 mg Documented by: [id number] Metoprolol Tartrate (Metoprolol Tartrate 25 Mg Tab) 25 mg PO NOW STA Stop: 02/24/22 01:03 Last Admin: 02/24/22 01:46 Dose: 25 mg Documented by: [id number] Morphine Sulfate (Morphine Sulfate 4 Mg/Ml 1 Ml Carp\Vial) 4 mg IV Q1H PRN PRN Reason: Pain Stop: 03/05/22 14:31 Last Admin: 02/19/22 14:59 Dose: 4 mg Documented by: [id number] Morphine Sulfate (Morphine Sulfate 2 Mg/Ml Carp) 2 mg IV NOW STA Stop: 02/24/22 16:24 Last Admin: 02/24/22 16:23 Dose: 2 mg Documented by: [id number] Morphine Sulfate (Morphine Sulfate 2 Mg/Ml Carp) Confirm Administered Dose 2 mg .ROUTE .STK-MED ONE Stop: 02/24/22 16:26 Last Admin: 02/24/22 16:48 Dose: Not Given Documented by: [id number] Morphine Sulfate (Morphine Sulfate 2 Mg/Ml Carp) 1 mg IV Q4 PRN PRN Reason: Pain Stop: 03/11/22 14:05 Last Admin: 02/25/22 14:13 Dose: 1 mg Documented by: [id number] Morphine Sulfate (Morphine Sulfate 2 Mg/Ml Carp) Confirm Administered Dose 2 mg .ROUTE .STK-MED ONE Stop: 02/25/22 14:12 Last Admin: 02/25/22 14:14 Dose: Not Given Documented by: [id number] Multivitamins (Multivitamin Tab) 1 tab PO DAILY [facility] Stop: 03/22/22 08:59 Last Admin: 02/25/22 08:00 Dose: Not Given Documented by: [id number] Admin: 02/24/22 11:20 Dose: Not Given Documented by: [id number] Admin: 02/23/22 09:00 Dose: 1 tab Documented by: [id number] Admin: 02/22/22 08:40 Dose: 1 tab Documented by: [id number] Admin: 02/21/22 08:23 Dose: 1 tab Documented by: [id number] Admin: 02/20/22 10:37 Dose: 1 tab Documented by: [id number] Non-Formulary Medication (Krgqfnbuith-Zixgaumsz-Gsdrrzyy [Trelegy Ellipta]) 1 puffs INH DAILY [facility] Stop: 03/21/22 20:11 Last Admin: 02/20/22 07:02 Dose: Not Given Documented by: [id number] Norepinephrine Bitartrate (Norepinephrine/D5w 4 Mg/250 Ml) Confirm Administered Dose 4 mg IV .STK-MED ONE Stop: 02/26/22 04:28 Last Admin: 02/26/22 06:06 Dose: Not Given Documented by: [id number] Olanzapine (Olanzapine 10 Mg/2.1 Ml Sdv) 5 mg IM NOW STA Stop: 02/24/22 17:13 Last Admin: 02/24/22 17:26 Dose: 5 mg Documented by: [id number] Ondansetron HCl (Ondansetron Inj 2 Mg/Ml 2 Ml Vial) 4 mg IV NOW STA Stop: 02/19/22 14:33 Last Admin: 02/19/22 15:00 Dose: 4 mg Documented by: [id number] Pantoprazole Sodium (Pantoprazole 40 Mg Tab) 40 mg PO DAILY [facility]; Protocol Stop: 03/21/22 20:59 Last Admin: 02/25/22 08:00 Dose: Not Given Documented by: [id number] Admin: 02/24/22 11:20 Dose: Not Given Documented by: [id number] Admin: 02/23/22 09:00 Dose: 40 mg Documented by: [id number] Admin: 02/22/22 08:41 Dose: 40 mg Documented by: [id number] Admin: 02/21/22 08:23 Dose: 40 mg Documented by: [id number] Admin: 02/20/22 10:37 Dose: 40 mg Documented by: [id number] Admin: 02/19/22 21:36 Dose: 40 mg Documented by: [id number] Propofol (Propofol Iv Emulsion 10 Mg/Ml 100 Ml Vial) Confirm Administered Dose 1,000 mg IV .TNC Stop: 02/26/22 07:57 Last Admin: 02/26/22 08:13 Dose: Not Given Documented by: [id number] Description This is a 21 electrode EEG with a single channel dedicated to limited EKG. The electrodes were placed in accordance with the International 10-20 system. Interpretation The predominant background activity consists of a very irregular 4-5 Hz activity, of up to 60 mV in amplitude,seen symmetrically distributed in all head regions bilaterally. This activity has no attenuation with alerting procedures. Photic stimulation was performed and elicited no change in the background activity and no abnormal responses were seen. Hyperventilation was not performed. A minimal amount of muscle and movement artifact activity contaminated the recording and did not hinder interpretation to any significant degree. There was a Pz electrode artifact in the early portion of the recording that was remedied. At times, the left hemisphere amplitudes were small than the right hemisphere's. No other focal abnormalities were seen. There were no potentially epileptogenic discharges seen. In addition, there were occasional episodes of background suppression in general for about one second, in no particular pattern The patient has frequent movements and jerking of the limbs without electrocerebral accompaniment. In summary, this EEG was abnormal showing generalized slowing of the background with occasional burst-suppression and left hemispheric amplitude dampening. No other focal abnormalities or potentially epileptogenic discharges were seen. Clinical Correlation Given his clinical picture, the slow background is consistent with an encephalopathy. The burst-suppression carries a poor prognosis. I suspect the frequent movements and jerks are myoclonic and not epilepsy [facility] EEG Procedure Codes Indication for Procedure (1) Acute encephalopathy: (2) Seizure-like activity: Neurology Neurology: 96623 EEG include record awake & drowsy
[2022-02-26] MEDS: CEFEPIME 2,000 MG in SYRINGE 0 ML IV SCH (13:54)
[2022-02-26] MEDS: DAPTOmycin 550 MG in SYRINGE 0 ML IV SCH (13:54)
--- NOTE | 2022-02-26 20:48 | Hospitalist Progress Note ---
Date of Service February 26, 2022 Assessment & Plan (1) Acute on chronic respiratory failure with hypoxia and hypercapnia: Plan: s/p intubation/mech ventilation overnight. Due to worsening pneumonia in setting of altered MS, COPD, and now COVID+. Uncertain if patient had COVID all along since admission and simply tested falsely negative early on. Or, could he have acquired COVID infection during his prolonged admission. Either way defer vent care to pool hall inspector. (2) Pneumonia due to COVID-19 virus: Plan: PCR+ this am. Starting dexamethasone 6mg IV daily. Intubated, vented, supportive care. Very poor prognosis. (3) Acute encephalopathy: Plan: Acute metabolic encephalopathy - likely due to uremia (BUN>100), newly found COVID infection, hypercapnea, etc. Now intubated/sedated. (4) Pneumonia: Plan: b/l. present on admission. Has received ~7 days of broad-spectrum IV antibiotic therapy for bacterial pneumonia. Now with COVID+ status - adding dexamethasone. Can likely stop cefepime but defer to ICU attending. (5) Chronic pain: Plan: on chronic narcotics at home. (6) UTI (urinary tract infection): Plan: 2nd Klebsiella Oxytoca Completed ~7 day course of IV Cefepime (7) Bacteremia: Plan: Blood cultures positive for VRE - at time of admission. s/p IV daptomycin course. Continue such. Echo w/o SBE. (8) Anemia: Plan: s/p 1 unit PRBCs while here. daily CBC. (9) Chronic kidney disease, stage 4 (severe): Plan: with superimposed KEAGAN. During his last admission, patient declined hemodialysis. Nephrology following. KEAGAN likely multifactorial. trend BMP. (10) Pleural effusion: Plan: RIGHT. s/p Thoracentesis earlier this admission - transudative fluid at that time. (11) Debilitated: Plan: severe failure to thrive - present on admission (12) Severe protein-calorie malnutrition: (13) Hypertension: Plan: BP meds on hold now on pressors in setting of #1 and COVID infection (14) AAA (abdominal aortic aneurysm): Plan: 5cm (15) PAF (paroxysmal atrial fibrillation): Plan: Had been on Cardizen infusion during the stay, now on hold due to need for pressors (16) KEAGAN (acute kidney injury): (17) Hyponatremia: (18) CAD (coronary artery disease): (19) GERD (gastroesophageal reflux disease): (20) COPD (chronic obstructive pulmonary disease) with emphysema: Plan: Daughter Allison updated by ICU attending today Goals of care/code status being discussed DVT proph - lovenox 30mg daily Admission and Anticipated Discharge Date Admission Date: February 19, 2022 Subjective events of overnight noted patient Tx from PCU to ICU due to obtundation & respiratory distress requiring intubation/mech ventilation PCR COVID testing repeated this am - returned POSITIVE due to COVID+ status I did NOT enter his room to perform an exam care plan d/w Dr Hebert, ICU attending Review of Systems Review of Systems: Unobtainable due to endotracheal tube Physical Exam Physical Exam: bedside visit for exam deferred due to intubated COVID+ status Results & Data Results & Data ([facility]) Vital Signs (Past 12 Hours) Vital Signs Temp Pulse Resp BP Pulse Ox 02/26/22 20:00 97 H 24 95 02/26/22 18:42 113 H 177/86 H 02/26/22 16:51 109 H 02/26/22 16:22 38.0 C H 105 H 24 165/86 H 96 02/26/22 16:00 38.0 C H 107 H 24 95 02/26/22 15:52 38.0 C H 102 H 24 159/88 H 95 02/26/22 15:26 104 H 24 100 02/26/22 15:22 38.0 C H 101 H 24 167/77 H 96 02/26/22 15:00 38.0 C H 97 H 24 100 02/26/22 14:52 38.0 C H 95 H 24 159/72 H 100 02/26/22 14:22 38.0 C H 99 H 24 160/77 H 100 02/26/22 14:02 38.1 C H 109 H 24 172/89 H 98 02/26/22 14:00 38.1 C H 108 H 24 100 02/26/22 13:52 38.1 C H 109 H 25 H 171/102 H 100 02/26/22 13:22 38.1 C H 108 H 25 H 164/111 H 100 02/26/22 13:00 38.1 C H 107 H 24 100 02/26/22 12:52 38.1 C H 107 H 24 174/88 H 100 02/26/22 12:49 38.1 C H 105 H 24 163/87 H 100 02/26/22 12:22 38.1 C H 105 H 25 H 163/87 H 99 02/26/22 12:00 38.1 C H 107 H 26 H 99 02/26/22 11:55 112 H 28 H 96 02/26/22 11:51 38.2 C H 109 H 25 H 175/99 H 97 02/26/22 11:30 38.2 C H 100 H 24 165/76 H 96 02/26/22 11:15 38.3 C H 98 H 24 157/71 H 96 02/26/22 11:00 38.3 C H 93 H 24 149/67 H 96 02/26/22 10:45 38.3 C H 95 H 24 131/75 97 02/26/22 10:30 38.3 C H 102 H 24 155/66 H 95 02/26/22 10:15 38.4 C H 105 H 26 H 153/83 H 95 02/26/22 10:00 38.4 C H 131 H 32 H 159/81 H 94 02/26/22 09:45 38.4 C H 112 H 26 H 169/90 H 96 02/26/22 09:30 38.4 C H 108 H 24 145/101 H 95 02/26/22 09:15 38.3 C H 102 H 24 161/80 H 94 02/26/22 09:00 38.3 C H 101 H 24 155/75 H 94 Laboratory Results labs reviewed Low Na worsening Cr COVID+ testing this am PG Care Time/CCT Total # of Minutes Spent Total Time Spent with Patient: Total time spent is greater than 50% in coordination of care (as documented) at patient's floor/unit and/or counseling patient: Coding Level of Care Code None Diagnoses Acute encephalopathy G93.40 Pneumonia J18.9 Laterality: unspecified laterality Lung location: unspecified part of lung Pneumonia type: due to unspecified organism Chronic pain G89.29 Chronic pain type: other chronic pain UTI (urinary tract infection) N39.0 Bacteremia R78.81 Anemia D64.9 Anemia type: unspecified type Chronic kidney disease, stage 4 (severe) N18.4 Pleural effusion J90 Debilitated R53.81 Severe protein-calorie malnutrition E43 Hypertension I10 AAA (abdominal aortic aneurysm) I71.4 PAF (paroxysmal atrial fibrillation) I48.0 Acute on chronic respiratory failure with hypoxia and hypercapnia J96.21; J96.22 Pneumonia due to COVID-19 virus U07.1; J12.82 KEAGAN (acute kidney injury) N17.9 Hyponatremia E87.1 CAD (coronary artery disease) I25.10 GERD (gastroesophageal reflux disease) K21.9 COPD (chronic obstructive pulmonary disease) with emphysema J43.9 (1) Pneumonia Laterality: unspecified laterality Lung location: unspecified part of lung Pneumonia type: due to unspecified organism Qualified Code(s): J18.9 - Pneumonia, unspecified organism (2) Chronic pain Chronic pain type: other chronic pain Qualified Code(s): G89.29 - Other chronic pain (3) Anemia Anemia type: unspecified type Qualified Code(s): D64.9 - Anemia, unspecified
[2022-02-26] MEDS: PROPOFOL BOLUS FROM BAG IV PRN (22:00)
[2022-02-27] MEDS: fentaNYL citrate 100 MCG/2 ML VIAL IV PRN ×2 (03:02→06:16)
[2022-02-27] MEDS: NOREPINEPHRINE/D5W 4 MG/250 ML PLCT IV SCH (04:28)
[2022-02-27] MEDS: PROPOFOL BOLUS FROM BAG IV PRN (04:28)
[2022-02-27 06:07] LABS: iSTAT Allen Test Pass; iSTAT Art Bld Gas pCO2 Correct 32 mmHg (35-46); iSTAT Art Bld Gas pH Corrected 7.464 (7.35-7.45); iSTAT Arterial Blood Gas HCO3 23 meg/L (19-24); iSTAT Arterial Blood Gas pCO2 32 mmHg (35-46); iSTAT Arterial Blood Gas pH 7.46 (7.35-7.45); iSTAT Arterial Blood Gas pO2 65 mmHg (80-95); iSTAT Arterial Blood Gas pO2 C 64; iSTAT Carbon Dioxide 24 mmol/L (24-31); iSTAT FiO2 30 %; iSTAT Hematocrit 21 % (42-52); iSTAT Hemoglobin 7.1 g/dl (14.0-18.0); iSTAT Potassium 3.8 mmol/L (3.3-5.0); iSTAT Site R Radial; iSTAT Sodium 131 mmol/L (135-144)
[2022-02-27 06:13] LABS: Hematocrit (blood only) 24.1 % (42-52); Immature Granulocytes # (auto) 0.03 K/uL (0.00-0.02); Immature Granulocytes % (auto) 0.3 %; Lymphocytes # (auto) 0.66 K/uL (1.2-3.4); Lymphocytes % (auto) 5.6 %; Mean Corpuscular Hemoglobin 32.3 pg (25-34); Mean Corpuscular Hgb Conc 33.2 g/dL (32-36); Mean Corpuscular Volume 97.2 fL (80-100); Mean Platelet Volume 10.1 fL (7.4-10.4); Monocytes # (auto) 1.17 K/uL (0.11-0.59); Neutrophils # (auto) 9.85 K/uL (1.4-6.5); Neutrophils % (auto) 84.1 %; Nucleated RBC # (auto) 0.14 K/uL (0-0); Nucleated RBC % (auto) 1.2 %; Platelet Count 321 K/uL (130-400); Red Blood Count 2.48 M/uL (4.7-6.1); White Blood Count 11.71 K/uL (4.8-10.8)
[2022-02-27 06:44] LABS: BUN Creatinine Ratio 22.6 (10-20); Calcium 8.3 mg/dl (8.5-10.1); Creatinine Clr Calc Pharmacy 8.3 ml/min; Est GFR (African American) 11.1 ml/min; Est GFR (Non-African American) 9.6 ml/min; Magnesium 2.5 mg/dl (1.7-2.4); Phosphorus 4.8 mg/dl (2.5-4.9); Potassium 3.9 mmol/L (3.5-5.1)
[2022-02-27] MEDS: METOPROLOL TARTRATE 1 MG/ML VIAL IV PRN (07:01)
[2022-02-27] MEDS ORDERED: AMIODARONE 150MG / 100ML D5W IV ONE (07:56)
[2022-02-27] MEDS ORDERED: 0.2 MICRON FILTER SET 1 EA IV ONE (07:57)
[2022-02-27] MEDS ORDERED: AMIODARONE / D5W 150 MG/100 ML BAG IV STA (07:57)
[2022-02-27] MEDS ORDERED: METOPROLOL TARTRATE 1 MG/ML VIAL IV STA (08:02)
[2022-02-27] MEDS: propofoL 1,000 MG/100 ML VIAL IV SCH ×2 (08:04→11:58)
--- NOTE | 2022-02-27 08:15 | XRay Report ---
XR chest 1V portable HISTORY: Respiratory distress. Intubation. Follow-up. COMPARISON: Chest 02/26/2022. FINDINGS: The endotracheal tube terminates approximately 2 cm from the eleonora. Nasogastric tube termi nates below the diaphragm. No pneumothorax. Small to moderate right and trace left pleural effusions persist. There is diffuse interstitial/vascular thickening likely representing pulmonary edema. Right basilar densities remain unchanged. IMPRESSION: 1. Satisfactory support line placement as above. 2. Cardiomegaly with bilateral pleural effusions and mild interstitial pulmonary edema. ACT 112: Negative or not required by law. Electronically signed by: Han Bryan M.D. 02/27/2022 8:13 AM
--- NOTE | 2022-02-27 08:50 | Nephrology Progress Note ---
Date of Service February 27, 2022 Assessment & Plan (1) 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: Plan: * Remains on mechanical ventilation * EEG shows encephalopathy and burst-suppression suggestive of a poor prognosis * Mr. Hilton had indicated that he does not want dialysis. This has been documented in the EMR on several occasions by several providers * Clinical course discussed w/ patient's daughter Allison (POA) this morning. She understands the poor prognosis. She wants to honor her father's wishes not to start dialysis and is considering transitioning to comfort measures. She plans to discuss this further w/ the ICU team this morning * No further Nephrology evaluation indicated at this time. Will sign off. Please call if further assistance is needed (2) COVID: Plan: * Developed fever, tested COVID + 02/26/22 Admission and Anticipated Discharge Date Admission Date: February 19, 2022 Subjective Mr. Hilton was evaluated in the ICU this morning. He remains on Propofol gtt and mechanically ventilated Review of Systems Review of Systems: Unobtainable due to endotracheal tube Physical Exam Constitutional: + malnourished (frail & chronically ill appearing) ENMT: orotracheal intubation Neck: trachea midline, no thyromegaly Respiratory: coarse breath sounds bilaterally Cardiovascular: Rate/Rhythm: + tachycardic Extremities: + edema (1+ dependent pitting edema) Gastrointestinal (Abdomen): Inspection/Auscultation: + hypoactive bowel sounds Skin: no rashes, warm and dry Results & Data ([facility]) Vital Signs (Past 12 Hours) Vital Signs Temp Pulse Resp BP Pulse Ox 02/27/22 07:55 17 02/27/22 07:50 135 H 21 94 02/27/22 07:01 154 H 152/112 H 02/27/22 06:00 36.8 C 100 H 21 95 02/27/22 05:52 36.8 C 101 H 20 151/87 H 95 02/27/22 05:35 20 02/27/22 05:22 36.8 C 82 24 151/87 H 95 02/27/22 05:00 36.9 C 82 24 141/75 H 94 02/27/22 04:52 37.0 C 80 24 133/71 94 02/27/22 04:22 37.1 C 82 24 134/77 96 02/27/22 04:00 37.1 C 80 24 95 02/27/22 03:52 37.2 C 84 24 132/71 95 02/27/22 03:26 37.2 C 96 H 25 H 159/98 H 96 02/27/22 03:15 100 H 26 H 95 02/27/22 03:00 37.3 C 96 H 25 H 155/103 H 96 02/27/22 02:00 37.4 C 87 24 144/78 H 95 02/27/22 01:30 37.4 C 100 H 25 H 155/93 H 92 02/27/22 01:22 37.5 C 100 H 24 156/84 H 99 02/27/22 01:12 37.5 C 93 H 24 155/87 H 97 02/27/22 01:02 37.5 C 91 H 21 155/84 H 97 02/27/22 00:52 37.6 C H 93 H 24 157/82 H 97 02/27/22 00:30 37.6 C H 96 H 24 156/84 H 96 02/27/22 00:22 165/107 H 95 02/27/22 00:00 37.6 C H 107 H 24 173/103 H 95 02/26/22 23:30 37.6 C H 105 H 24 96 02/26/22 23:29 94 H 02/26/22 23:00 37.7 C H 95 H 24 166/92 H 96 02/26/22 22:54 95 H 24 99 02/26/22 22:52 37.7 C H 92 H 24 159/94 H 100 02/26/22 22:30 37.7 C H 106 H 27 H 168/124 H 96 02/26/22 22:00 37.9 C H 109 H 30 H 167/91 H 97 02/26/22 21:30 38.1 C H 107 H 27 H 94 02/26/22 21:22 38.2 C H 112 H 31 H 168/109 H 94 02/26/22 20:52 38.2 C H 105 H 30 H 160/111 H 93 Laboratory Results Laboratory Tests 02/26/22 02/27/22 02/27/22 08:05 05:53 05:53 WBC 11.71 H Hgb 8.0 L Hct 24.1 L Plt Count 321 Sodium 133 L Potassium 3.9 Chloride 96 L Carbon Dioxide 23 BUN 119 H Creatinine 5.26 H* D Glucose 100 H Calcium 8.3 L Phosphorus 4.8 Magnesium 2.5 H SARS-CoV-2 (PCR) POSITIVE A* Influenza Type A (PCR) Negative Influenza Type B (PCR) Negative RSV (RT-PCR) Negative Laboratory Tests 07/27/21 06:28 Free [place] LC, Quant 122.8 H Free Lambda LC, Quant 70.5 H Free [place]/Lambda Ratio 1.74 H PG Care Time/CCT Total # of Minutes Spent Total Time Spent with Patient: Total time spent is greater than 50% in coordination of care (as documented) at patient's floor/unit and/or counseling patient: Coding Level of Care Code 72198 Subseq Hosp Care Lvl 3 Diagnoses 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 N18.5 COVID U07.1
[2022-02-27] MEDS: FLUTICASONE FUROATE 200MCG 14 PUFFS/INHALER INH SCH (09:07)
[2022-02-27] MEDS: UMECLIDINIUM/VILANTEROL 62.5/25MCG 7 PUFFS/INHALER INH SCH (09:07)
--- NOTE | 2022-02-27 09:18 | Critical Care Progress Note ---
Date of Service February 27, 2022 Assessment & Plan (1) Admitted to intensive care unit: Plan: Reason Critically Ill: 81-year-old male with acute hypoxic respiratory failure requiring emergent endotracheal intubation for airway protection. NEURO - * CAM ICU: Unable to assess. * AMS: * Acute encephalopathy likely secondary to uremia. This is unlikely to clear without hemodialysis which the patient has apparently refused with the past family indicates that patient would not want even temporary dialysis. * EEG without signs of seizures. CARDIAC/VASCULAR - * A fib: * Given amnio this morning. Continue with as needed metoprolol. Maintain mean arterial pressures above 65. Will consider esmolol infusion. RESPIRATORY - * Patient intubated for airway protection. Right pleural effusion tapped earlier in the week. Exudative effusion seen. Cultures negative. Cytology negative. Likely related to renal failure and congestive heart failure. GI/NUTRITION - * Severe protein calorie malnutrition: * Consult dietary for appropriate tube feeds. RENAL/LYTES - * Renal Failure: * Patient w/ declining renal function during current hospitalization. * Patient had previously decline HD. * Ongoing mgmt per Nephro - * Hdz in place - Strict I&Os. ENDO - * No h/o DM * BSGs per unit protocol. ISS --> gtt per unit policy. HEME - * Anemia * Appears to be on more of a chronic basis at this time. ID - Continue broad-spectrum antibiotics. Cultures negative thus far. LINES/IV ACCESS - * PIVs x2 * ETT * Hdz DVT PROPHYLAXIS - * SCDs Prognosis is extremely poor. Lengthy discussion was had with both the patient's daughters yesterday. They are considering transitioning to comfort measures only. I have personally spent 38 minutes of critical care time in the direct management of this patient. This is a life/limb threatening event. This includes time spent evaluating patient, direct bedside care, chart review, placing orders, interpretation of diagnostic studies, discussion with consultants, patient, and family members, as well as other required patient management activities. This time is exclusive of all separately billable procedures, and teaching time and separate from and in addition to any other critical care service time. Thank you for allowing us to participate in the care of this patient. Please refer to my attending physician's documentation for any further recommendations. (2) Respiratory failure: (3) Acute encephalopathy: (4) Pleural effusion: (5) 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: (6) Pneumonia: (7) Uremic encephalopathy: Admission and Anticipated Discharge Date Admission Date: February 19, 2022 Subjective Patient unresponsive to commands. Currently on low-dose sedation. A. fib RVR this morning. Received 150 mg of amnio. Review of Systems Review of Systems: All systems reviewed & are unremarkable except as noted in HPI & below Physical Exam Physical Exam: VITAL SIGNS - Vital signs and nursing notes were reviewed. GENERAL - 81-year-old cachectic appearing male appearing his stated age who is intubated and nonresponsive to commands. SKIN - Without rashes. HEAD - NC/AT. EYES - Pupils equal bilaterally. EARS - No deformities of external structures noted on gross examination bilaterally. NOSE - Midline and without cyanosis. MOUTH/OROPHARYNX - Buccal mucosa pink and dry. NECK - Supple to palpation. No nuchal rigidity. LUNGS -intubated. Coarse breath sounds. CARDIAC -irregularly irregular.. No murmur, rubs, or gallops appreciated. ABDOMEN - Abdominal contour scaphoid without pulsations or visible masses. BS normoactive all four quadrants. No tenderness, palpable masses, hepatosplenomegaly, or ascites noted. EXTREMITIES - No clubbing or peripheral cyanosis. Weak pulses throughout. NEUROLOGIC -obtunded. Results & Data Results & Data ([facility]) Vital Signs (Past 12 Hours) Vital Signs Temp Pulse Resp BP Pulse Ox 02/27/22 09:07 118 H 95/70 L 02/27/22 09:03 20 02/27/22 07:55 17 02/27/22 07:50 135 H 21 94 02/27/22 07:01 154 H 152/112 H 02/27/22 06:00 36.8 C 100 H 21 95 02/27/22 05:52 36.8 C 101 H 20 151/87 H 95 02/27/22 05:35 20 02/27/22 05:22 36.8 C 82 24 151/87 H 95 02/27/22 05:00 36.9 C 82 24 141/75 H 94 02/27/22 04:52 37.0 C 80 24 133/71 94 02/27/22 04:22 37.1 C 82 24 134/77 96 02/27/22 04:00 37.1 C 80 24 95 02/27/22 03:52 37.2 C 84 24 132/71 95 02/27/22 03:26 37.2 C 96 H 25 H 159/98 H 96 02/27/22 03:15 100 H 26 H 95 02/27/22 03:00 37.3 C 96 H 25 H 155/103 H 96 02/27/22 02:00 37.4 C 87 24 144/78 H 95 02/27/22 01:30 37.4 C 100 H 25 H 155/93 H 92 02/27/22 01:22 37.5 C 100 H 24 156/84 H 99 02/27/22 01:12 37.5 C 93 H 24 155/87 H 97 02/27/22 01:02 37.5 C 91 H 21 155/84 H 97 02/27/22 00:52 37.6 C H 93 H 24 157/82 H 97 02/27/22 00:30 37.6 C H 96 H 24 156/84 H 96 02/27/22 00:22 165/107 H 95 02/27/22 00:00 37.6 C H 107 H 24 173/103 H 95 02/26/22 23:30 37.6 C H 105 H 24 96 02/26/22 23:29 94 H 02/26/22 23:00 37.7 C H 95 H 24 166/92 H 96 02/26/22 22:54 95 H 24 99 02/26/22 22:52 37.7 C H 92 H 24 159/94 H 100 02/26/22 22:30 37.7 C H 106 H 27 H 168/124 H 96 02/26/22 22:00 37.9 C H 109 H 30 H 167/91 H 97 02/26/22 21:30 38.1 C H 107 H 27 H 94 02/26/22 21:22 38.2 C H 112 H 31 H 168/109 H 94 Coding Level of Care Code Critical Care 1st 30-74 mins Diagnoses Admitted to intensive care unit Z78.9 Respiratory failure J96.90 Acute encephalopathy G93.40 Pleural effusion J90 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 N18.5 Pneumonia J18.9 Laterality: unspecified laterality Lung location: unspecified part of lung Pneumonia type: due to unspecified organism Uremic encephalopathy G93.49; N19 Time Spent (min) 38 (1) Pneumonia Laterality: unspecified laterality Lung location: unspecified part of lung Pneumonia type: due to unspecified organism Qualified Code(s): J18.9 - Pn eumonia, unspecified organism
[2022-02-27] MEDS: ENOXAPARIN INJ 30 MG/0.3 ML SYR SQ SCH (09:50)
[2022-02-27] MEDS: ADVANCED PROBIOTIC 1250 MG CAPSULE PO SCH (09:54)
[2022-02-27] MEDS: ASPIRIN 81 MG CHEW GT SCH (09:54)
[2022-02-27] MEDS: dexAMETHasone 6 MG in SYRINGE 0 ML IV SCH (09:54)
[2022-02-27] MEDS: METOPROLOL SUCC 50MG EXT REL TAB PO SCH (09:55)
[2022-02-27] MEDS: LANSOPRAZOLE 30 MG SOLTAB GT SCH (09:55)
[2022-02-27] MEDS: MULTI VIT W/MINERALS LIQUID 15 ML UDP GJT SCH (09:56)
[2022-02-27] MEDS: FERROUS SULFATE 325 MG/7.4 ML UDP GT SCH (09:56)
[2022-02-27] MEDS ORDERED: ESMOLOL / NSS 2,500 MG/250 ML BAG IV SCH (10:30)
[2022-02-27] MEDS ORDERED: STAT IV Infusion **Titration per Protocol STA ×2 (10:39→10:59)
[2022-02-27] MEDS ORDERED: MoRPHine SULFATE 5 MG/0.25 ML UDP PO PRN (10:59)
[2022-02-27] MEDS ORDERED: GLYCOPYRROLATE 0.2 MG/ML VIAL IV PRN (10:59)
[2022-02-27] MEDS ORDERED: ONDANSETRON 4 MG OD TAB SL PRN (10:59)
[2022-02-27] MEDS ORDERED: LORazepam 2 MG/1 ML VIAL IV PRN (10:59)
[2022-02-27] MEDS ORDERED: LORazepam 0.5 MG TAB PO PRN (10:59)
[2022-02-27] MEDS ORDERED: ONDANSETRON INJ 2 MG/ML 2 ML VIAL IV PRN (10:59)
[2022-02-27] MEDS ORDERED: MoRPHine SULFATE 2 MG/ML CARP IV PRN (10:59)
[2022-02-27] MEDS ORDERED: HYDROmorphone/NSS 100 MG/100 ML BAG IV SCH (11:15)
--- NOTE | 2022-02-27 14:26 | Death Pronouncement Note ---
Date of Service February 27, 2022 Pronouncement Note Admission Date February 19, 2022 Date and Time of Date of : 02/27/22 Time of : 13:53 Preliminary Cause of (1) Acute on chronic respiratory failure with hypoxia and hypercapnia: (2) Pneumonia due to COVID-19 virus: Contributing Factors acute renal failure, pleural effusion, stage 5 CKD, CAD, severe protein calorie malnutrition, COPD, CHF Summary see dedicated discharge summary from same date Additional Data Confirmation of : no pulse, no respirations, no heart sounds and pupils fixed and dilated Pronouncement Performed By: Attending Physician Family: contacted Attending/PCP notified?: Yes Attending physician: Miko Chowdhury MD Was code activated?: No Autopsy requested?: No waste examiner notified?: No Organ bank notified?: No Coding Level of Care Code None Diagnoses Acute on chronic respiratory failure with hypoxia and hypercapnia J96.21; J96.22 Pneumonia due to COVID-19 virus U07.1; J12.82
--- NOTE | 2022-02-27 14:30 | Discharge Summary ---
Date of Service date of admission - February 19, 2022 date of - February 27, 2022 time of - 13:53 Admission HPI Per Admitting Provider This is a 81-year-old male with a history of CKD stage V, chronic pain on opiates, failure to thrive, hypertension, who was brought to the hospital by ambulance on account of altered mental status. In route to the hospital, patient was given 0.2 mg of Narcan and he became a little more awake and alert. When I saw him in the emergency department, he was awake alert oriented but very lethargic. He said the reason he was brought to the hospital was because he was having difficulty breathing. He says he lives by himself and usually gets a home health aide which comes to help him every day. Of note, patient was discharged from this hospital on December 02, 2021 after he was treated for failure to thrive, colitis, pneumonia. During that admission, patient declined hemodialysis. To the emergency department, serum creatinine was 3.85 compared to 3.16 upon discharge on December 03, 2021. Chest x-ray showed evidence of moderate sized right pleural effusion and also right basilar opacity compatible with pneumonia. CT scan of the head did not show any acute pathology, CT abdomen and pelvis did not show any significant change in his known infrarenal abdominal aortic aneurysm. Blood cultures have been obtained, patient has been evaluated on IV antibiotics He will be admitted to the hospital for further investigation and further management. Principal Diagnosis Acute/chronic respiratory failure with hypoxia and hypercapnea COVID-19 Pneumonia Bacterial Pneumonia Discharge Exam at time of - no palpable pulse, pupils fixed & dilated, no audible heart tones, no spontaneous respiratory effort, no response to pain/voice Discharge Data Allergies Allergy/AdvReac Type Severity Reaction Status Date / Time cefuroxime Allergy Intermediate rash Verified 02/19/22 15:49 lisinopril Allergy Mild itching Verified 02/19/22 15:49 Consultations 02/19/22 20:12 Consult Nephrology Routine 02/20/22 11:28 Consult Infectious Diseases Routine 02/22/22 08:01 Consult Pulmonology Routine 02/22/22 12:28 Consult Palliative Care Routine 02/24/22 16:56 Consult Cardiology Routine Procedures Performed Intubation/mechanical ventilation EEG Echocardiogram Right-sided thoracentesis Ordered Studies 02/19/22 14:32 CT abd pelvis wo con Stat CT head/brain wo con Stat 02/22/22 11:10 US point of care ultrasound Urgent 02/25/22 00:04 CT head/brain wo con Urgent Hospital Course (1) Acute on chronic respiratory failure with hypoxia and hypercapnia: s/p intubation/mech ventilation on the AM of 02/26/22. Due to worsening pneumonia in setting of altered mental status, COPD, acute kidney injury, and COVID infection. (2) Pneumonia due to COVID-19 virus: PCR+ on 02/26/22. It was unclear if the patient had had COVID all along during his stay and that his 02/19/22 COVID testing was falsely negative. Alternatively he may have acquired COVID during the hospitalization. Either way he clearly had COVID infection as evidenced by development of fevers, severely altered mental status, and significant worsening of his respiratory status. These all occurred in the 48 hours prior to his . (3) Pneumonia: Admission CXR on 02/19/22 showed evidence of a right-sided pneumonia along with pleural effusion. (4) Bacteremia: 2nd to VRE from admission blood cultures. (5) Seizure-like activity: (6) KEAGAN (acute kidney injury): In the 48 hours prior to his his creatinine christa sharply to >5. BUN was >100. Suspect KEAGAN was 2nd to COVID infection. (7) Pleural effusion: Right-sided. (8) Uremic encephalopathy: Severely altered mental status with BUN >100 in the days leading up to his . (9) 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: Baseline creatinine low 3's. (10) CAD (coronary artery disease): (11) Hypertension: (12) GERD (gastroesophageal reflux disease): (13) Anemia of chronic disease: (14) Opioid dependence: (15) Chronic pain: (16) AAA (abdominal aortic aneurysm): (17) Severe protein-calorie malnutrition: (18) COPD (chronic obstructive pulmonary disease) with emphysema: (19) PAF (paroxysmal atrial fibrillation): (20) Hyponatremia: (21) UTI (urinary tract infection): 2nd klebsiella. The patient was admitted for right-sided pneumonia, confusion, failure to thrive, and a right-sided pleural effusion. The latter underwent thoracentesis by Dr Ronnell Hebert early in the stay. Fluid was bloody but total protein was low c/w transudative etiology. He was treated with IV antibiotics for his pneumonia. His mental status waxed/waned throughout the visit. Hospitalization was complicated by UTI as well as VRE bacteremia. On 02/25/22 the patient's mental status worsened; he became quite lethargic. Renal function worsened rapidly. He was transferred to the ICU early in the AM on 02/26/22 at which time he was intubated and placed on the ventilator. He was noted to have new-onset fever. COVID testing returned positive at that time and IV steroids were added. Multiple palliative discussions were held with the patient's family in light of his poor prognosis (worsening acute/chronic renal failure, COVID+, respiratory failure, etc). On the AM of 02/27/22 his family elected to make him comfort care and therefore terminal extubation was performed. He a short time later on 02/27/22 at 1353. Total Time Total Time Spent Total Time Spent (In Minutes): 25 Discharge Plan Discharge Items Patient Disposition: Other Date/Time: 02/27/22 13:53 Coding Level of Care Code D/C DAY MANAGEMENT <30 MINS Diagnoses Acute on chronic respiratory failure with hypoxia and hypercapnia J96.21; J96.22 Pneumonia due to COVID-19 virus U07.1; J12.82 Bacteremia R78.81 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 N18.5 Pneumonia J18.9 Laterality: unspecified laterality Lung location: unspecified part of lung Pneumonia type: due to unspecified organism CAD (coronary artery disease) I25.10 Hypertension I10 GERD (gastroesophageal reflux disease) K21.9 Anemia of chronic disease D63.8 Opioid dependence F11.20 Chronic pain G89.29 AAA (abdominal aortic aneurysm) I71.4 Severe protein-calorie malnutrition E43 COPD (chronic obstructive pulmonary disease) with emphysema J43.9 Pleural effusion J90 PAF (paroxysmal atrial fibrillation) I48.0 Seizure-like activity R56.9 KEAGAN (acute kidney injury) N17.9 Hyponatremia E87.1 Uremic encephalopathy G93.49; N19 UTI (urinary tract infection) N39.0
== END 2022-02-27 18:06 | disposition expired | DRG 189 ==
LOC: ED 14:23 → 3W 17:32 → SUATTDRO 17:32 → 3W 19:56 → 2W 02-24 01:03 → 2E 02-24 13:00 → 1E 02-26 04:36